=== PATIENT | male | born 1945 | race Caucasian/White ===

== ENCOUNTER 2016-10-13 10:33 | Emergency (ER) | payer MEDICARE, OTHER ==
[~2016-10-13] VITALS: Ht 167.6 cm; Wt 88.0 kg
[~2016-10-13 10:33] MED LIST: ALPR.25T PO; ALPR0.5T PO; ALPR0.5T7 PO; AMLO5TAB2 PO; APIX5TAB PO; ASP325T PO; ASPI500T50 PO; CEFD300C3 PO; CEPH-507 PO; CEPH500C PO; CYCL10TA9 PO; DCS100C PO; DNPZ5T PO; DOCU50CA8 PO; DONE5TAB30 PO; FINA5TAB6 PO; FISH OIL 1,2001 EAC1 PO; FISH1CAP15 PO; FNST5T PO; HYDR-34 PO; HYDR12.570 PO; HYDR1TAB3 PO; IBUP-1773 PO; IBUP-1779 PO; MEMA10TA PO; MEMA10TA22 PO; NAPR550T PO; OXB5T PO; OXYB5SYR2 PO; OXYB5TAB9 PO; POLY17PO6 PO; PRAV40TA2 PO; PRD20T PO; RT-ALBUINH IH; SENN8.6T68 PO; TAMS0.4C2 PO; TMSL.4C PO; TORADOL PO; TRAZ100T92 PO; TRAZ50TA67 PO; TRM50T PO; WARF4TAB PO
--- NOTE | 2016-10-13 10:52 | ED General ---
General Chief Complaint: Neuro-Stroke Like Symptoms Stated Complaint: DIZZY SLURRED SPEECH WEAKNESS Source of Information: Patient Exam Limitations: No Limitations History of Present Illness Time Seen by Provider: 10:50 Initial Comments To ER complaint by his with reports of strokelike symptoms. reports slurred speech, fatigue, increased left facial droop for the past 3 days. Patient has a history of stroke several years ago with some residual left facial droop. states that she does not notice any other deficits but his left facial droop seems more prominent than usual. Timing/Duration: 1-2 Days Severity: Moderate Associated Systoms: Malaise Allergies and Home Medications Allergies Coded Allergies: codeine (Unverified Allergy, Severe, rash, 01/11/11) acetaminophen (Verified Allergy, Unknown, 08/19/15) hydrocodone (Verified Allergy, Unknown, 08/19/15) lovastatin (Verified Allergy, Unknown, 08/19/15) Home Medications Albuterol Sulfate 6.7 Gm Hfa.aer.ad, 2 PUFF IH Q4H PRN for WHEEZING, (Reported) Alprazolam 0.5 Mg Tablet, 0.5 MG PO BID PRN for ANXIETY, (Reported) Amlodipine Besylate 5 Mg Tablet, 5 MG PO DAILY, (Reported) Cephalexin 500 Mg Capsule, 1 TAB PO BID, #10 Prescribed by: KAREN LOCKHART on 08/25/15 0910 Docusate Sodium 50 Mg Capsule, 50 MG PO HS PRN for CONSTIPATION, (Reported) Donepezil HCl 5 Mg Tablet, 5 MG PO HS, (Reported) Finasteride 5 Mg Tablet, 5 MG PO DAILY, (Reported) Memantine HCl 10 Mg Tablet, 10 MG PO BID, (Reported) [place]-3 Fatty Acids/Fish Oil 1 Each Capsule, 1 CAP PO BID, (Reported) Oxybutynin Chloride 5 Mg Tablet, 5 MG PO BID, (Reported) Polyethylene Glycol 3350 17 Gm Powd.pack, 17 GM PO DAILY PRN for CONSTIPATION, ( Reported) Pravastatin Sodium 40 Mg Tablet, 40 MG PO DAILY, (Reported) Sennosides 8.6 Mg Tablet, 17.2 MG PO DAILY, (Reported) take 2 (8.6mg) tabs Tamsulosin HCl 0.4 Mg Cap.er.24h, 0.4 MG PO DAILY, (Reported) Trazodone HCl 100 Mg Tablet, 100 MG PO HS, (Reported) [Toradol] , 1 TAB PO PRN, #20 Prescribed by: KAREN LOCKHART on 08/25/15 0910 Constitutional: see HPI EENTM: see HPI Respiratory: no symptoms reported Cardiovascular: no symptoms reported Genitourinary: no symptoms reported Musculoskeletal: no symptoms reported Skin: no symptoms reported Psychiatric/Neurological: No Symptoms Reported Hematologic/Lymphatic: No Symptoms Reported Immunological/Allergic: no symptoms reported Past Vkwexjx-Colfcm-Enqlrq Hx Patient Social History Former Smoker/When Quit: May 21, 1984 Recent Foreign Travel: No Contact w/Someone Who Travel: No Immunizations Up To Date Tetanus Booster (TDap): Less than 5yrs Date of Pneumonia Vaccine: Feb 18, 2015 Date of Influenza Vaccine: Mar 21, 2015 Seasonal Allergies Seasonal Allergies: No Surgeries HX Surgeries: Yes (HERNIA REPAIR, CYSTOCELE) Respiratory Hx Respiratory Disorders: No (GETS SOB IN COLD AIR) Cardiovascular Hx Cardiac Disorders: Yes Neurological Hx Neurological Disorders: Yes (mild alzheimer's ) Reproductive System Hx Reproductive Disorders: No Genitourinary Hx Genitourinary Disorders: Yes Genitourinary Disorders: Benign Prostatic Hyperpl, Prostate Problems Gastrointestinal Hx Gastrointestinal Disorders: Yes (hx of constipation issues) Gastrointestinal Disorders: Chronic Constipation Musculoskeletal Hx Musculoskeletal Disorders: No Musculoskeletal Disorders: Arthritis Endocrine Hx Endocrine Disorders: No HEENT HX ENT Disorders: Yes (glasses) Hearing Impairment: Hard of Hearing Cancer Hx Cancer: No Psychosocial Hx Psychiatric Problems: No Behavioral Health Disorders: Anxiety Integumentary HX Skin/Integumentary Disorder: No Blood Transfusions Hx Blood Disorders: Yes (hx of dvt) Adverse Reaction to a Blood Tr: No Family Medical History Family Medial History: FH: heart disease 19 FATHER Physical Exam Vital Signs Vital Sign - Last 12Hours 10/13/16 10:49 Temp 99.6 Pulse 102 Resp 18 B/P (MAP) 137/82 Pulse Ox 94 O2 Delivery Room Air Capillary Refill : General Appearance: No Apparent Distress, WD/WN Eyes: Bilateral Eye EOMI, Bilateral Eye Normal Inspection, Bilateral Eye PERRL HEENT: PERRL/EOMI, TMs Normal Neck: Full Range of Motion, Normal Inspection Respiratory: No Accessory Muscle Use, No Respiratory Distress Cardiovascular: Regular Rate, Rhythm, Normal Peripheral Pulses Gastrointestinal: Non Tender, Soft Neurologic/Psychiatric: Alert, Oriented x3, No Motor/Sensory Deficits Skin: Normal Color, Warm/Dry Progress/Results/Core Measures Results/Orders Lab Results Laboratory Tests Test 10/13/16 11:20 10/13/16 12:25 Range/Units White Blood Count 6.3 4.3-11.0 10^3/uL Red Blood Count 4.73 4.35-5.85 10^6/uL Hemoglobin 14.2 13.3-17.7 G/DL Hematocrit 42 40-54 % Mean Corpuscular Volume 88 80-99 FL Mean Corpuscular Hemoglobin 30 25-34 PG Mean Corpuscular Hemoglobin Concent 34 32-36 G/DL Red Cell Distribution Width 13.5 10.0-14.5 % Platelet Count 188 130-400 10^3/uL Mean Platelet Volume 9.6 7.4-10.4 FL Neutrophils (%) (Auto) 74 42-75 % Lymphocytes (%) (Auto) 15 12-44 % Monocytes (%) (Auto) 9 0-12 % Eosinophils (%) (Auto) 2 0-10 % Basophils (%) (Auto) 0 0-10 % Neutrophils # (Auto) 4.7 1.8-7.8 X 10^3 Lymphocytes # (Auto) 0.9 L 1.0-4.0 X 10^3 Monocytes # (Auto) 0.6 0.0-1.0 X 10^3 Eosinophils # (Auto) 0.2 0.0-0.3 10^3/uL Basophils # (Auto) 0.0 0.0-0.1 10^3/uL Prothrombin Time 14.1 12.2-14.7 SEC INR Comment 1.1 0.8-1.4 Activated Partial Thromboplast Time 29 24-35 SEC D-Dimer 0.39 0.00-0.49 UG/ML Sodium Level 140 135-145 MMOL/L Potassium Level 3.7 3.6-5.0 MMOL/L Chloride Level 108 H 98-107 MMOL/L Carbon Dioxide Level 24 21-32 MMOL/L Anion Gap 8 5-14 MMOL/L Blood Urea Nitrogen 16 7-18 MG/DL Creatinine 0.71 0.60-1.30 MG/DL Estimat Glomerular Filtration Rate > 60 BUN/Creatinine Ratio 23 Glucose Level 94 70-105 MG/DL Calcium Level 8.9 8.5-10.1 MG/DL Total Bilirubin 0.4 0.1-1.0 MG/DL Aspartate Amino Transf (AST/SGOT) 26 5-34 U/L Alanine Aminotransferase (ALT/SGPT) 25 0-55 U/L Alkaline Phosphatase 74 40-136 U/L Troponin I < 0.30 <0.30 NG/ML Total Protein 6.4 6.4-8.2 G/DL Albumin 3.7 3.2-4.5 G/DL Urine Color YELLOW Urine Clarity CLEAR Urine pH 6.5 5-9 Urine Specific [place] 1.015 L 1.016-1.022 Urine Protein NEGATIVE NEGATIVE Urine Glucose (UA) NEGATIVE NEGATIVE Urine Ketones NEGATIVE NEGATIVE Urine Nitrite NEGATIVE NEGATIVE Urine Bilirubin NEGATIVE NEGATIVE Urine Urobilinogen NORMAL NORMAL MG/DL Urine Leukocyte Esterase NEGATIVE NEGATIVE Urine RBC (Auto) 1+ H NEGATIVE Urine RBC 2-5 H /HPF Urine WBC RARE /HPF Urine Crystals NONE /LPF Urine Bacteria NEGATIVE /HPF Urine Casts NONE /LPF Urine Mucus MODERATE H /LPF Urine Culture Indicated NO My Orders Orders - FEI OTTO APRN Cbc With Automated Diff (10/13/16 10:49) Protime With Inr (10/13/16 10:49) Partial Thromboplastin Time (10/13/16 10:49) Comprehensive Metabolic Panel (10/13/16 10:49) Fibrin Degradation Products (10/13/16 10:49) Troponin I (10/13/16 10:49) Ua Culture If Indicated (10/13/16 10:49) Chest 1 View, Ap/Pa Only (10/13/16 10:49) Ekg Tracing (10/13/16 10:49) Nothing By Mouth (10/13/16 Dinner) Accucheck Stat ONCE (10/13/16 10:49) Saline Lock/Iv-Start (10/13/16 10:49) Saline Lock/Iv-Start (10/13/16 10:49) Vital Signs-Stroke Q1H (10/13/16 10:49) Ct Head Wo-R/O Stroke (10/13/16 10:49) O2 (10/13/16 10:49) Intake & Output 06,14,22 (10/13/16 10:49) Monitor-Rhythm Ecg Trace Only (10/13/16 10:49) Dysphagia Screening Tool (10/13/16 10:49) Post Thrombolytic Adminstratio (10/13/16 10:49) Vital Signs/I&O Vital Sign - Last 12Hours 10/13/16 10:49 Temp 99.6 Pulse 102 Resp 18 B/P (MAP) 137/82 Pulse Ox 94 O2 Delivery Room Air Diagnostic Imaging Diagonstic Imaging: CT Comments NAME: FRANKIE SMILEY [facility] REC#: [id number] PT STATUS: REG ER : 1945 PHYSICIAN: FEI OTTO APRN ADMIT DATE: 10/13/16/ER Signed Date of Exam:10/13/16 CT HEAD WO-R/O STROKE EXAM: CT head. TECHNIQUE: Noncontrast axial images of the brain were obtained. INDICATION: History of TIA. FINDINGS: There is no intracranial hemorrhage, edema or mass effect. The brain parenchyma demonstrates a hypodense oval lesion measuring 8 mm in the left periventricular white matter. This is suggestive of a lacunar infarct of a indeterminate age. This was not seen on 04/20/2015 exam. No hydrocephalus. No extra-axial fluid collection. The calvarium, the paranasal sinuses and orbits visualized portions demonstrate no significant abnormality. Minimal because of thickening, however, is seen in the left maxillary sinus. IMPRESSION: 1. No intercurrent hemorrhage. 2. Age indeterminate 8 mm lacunar infarct is suggested in the left the frontal periventricular white matter. MRI can better evaluate for acute ischemic infarction if needed. Dictated by: Dictated on workstation # [id number] Dict: 10/13/16 1120 Trans: 10/13/16 1131 [facility] [id number] Interpreted by: URI SULLIVAN MD Electronically signed by: URI SULLIVAN MD 10/13/16 1131 Departure Communication Progress Notes 1143-Pt is on ELiquis (history of DVT/PE). I do not notice a difference in patients presentation or speech from baseline. He is seen here in ER rather frequently. Impression Impression: Primary Impression: subjective dysarthria Disposition: HOME, SELF-CARE Condition: Stable Departure-Patient Inst. Decision time for Depature: 12:51 Referrals: SHAY HONG MD (PCP/Family) Primary Care Physician Patient Instructions: NO INSTRUCTIONS GIVEN Add. Discharge Instructions: All discharge instructions reviewed with patient and/or family. Voiced understanding. 1. Follow-up with Dr. Hong. Call her office today to make an appointment to be seen next week 2. Return to ER for any concerns Copy Copies To 1: SHAY HONG MD, PETER J APRN October 13, 2016 10:52
--- NOTE | 2016-10-13 11:03 | Diagnostic Imaging Report ---
INDICATION: Chest pain. Portable chest 10:55 AM. Heart size and pulmonary vascularity are normal. Lungs are clear. There are no effusions or pneumothoraces. IMPRESSION: Negative chest. Dictated by: Dictated on workstation # [id number]
--- NOTE | 2016-10-13 11:29 | Diagnostic Imaging Report ---
EXAM: CT head. TECHNIQUE: Noncontrast axial images of the brain were obtained. INDICATION: History of TIA. FINDINGS: There is no intracranial hemorrhage, edema or mass effect. The brain parenchyma demonstrates a hypodense oval lesion measuring 8 mm in the left periventricular white matter. This is suggestive of a lacunar infarct of a indeterminate age. This was not seen on 04/20/2015 exam. No hydrocephalus. No extra-axial fluid collection. The calvarium, the paranasal sinuses and orbits visualized portions demonstrate no significant abnormality. Minimal because of thickening, however, is seen in the left maxillary sinus. IMPRESSION: 1. No intercurrent hemorrhage. 2. Age indeterminate 8 mm lacunar infarct is suggested in the left the frontal periventricular white matter. MRI can better evaluate for acute ischemic infarction if needed. Dictated by: Dictated on workstation # [id number]
[2016-10-13 11:32] LABS: BASOPHILS % (AUTO) 0 % (0-10); EOSINOPHILS # (AUTO) 0.2 10^3/uL (0.0-0.3); EOSINOPHILS % (AUTO) 2 % (0-10); LYMPHOCYTES # (AUTO) 0.9 X 10^3 (1.0-4.0); LYMPHOCYTES % (AUTO) 15 % (12-44); MEAN CORPUSCULAR HEMOGLOBIN 30 PG (25-34); MEAN CORPUSCULAR HGB CONC 34 G/DL (32-36); MEAN CORPUSCULAR VOLUME 88 FL (80-99); MEAN PLATELET VOLUME 9.6 FL (7.4-10.4); MONOCYTES # (AUTO) 0.6 X 10^3 (0.0-1.0); MONOCYTES % (AUTO) 9 % (0-12); NEUTROPHILS # (AUTO) 4.7 X 10^3 (1.8-7.8); NEUTROPHILS % (AUTO) 74 % (42-75); PLATELET COUNT 188 10^3/uL (130-400); RED BLOOD COUNT 4.73 10^6/uL (4.35-5.85); RED CELL DISTRIBUTION WIDTH 13.5 % (10.0-14.5); WHITE BLOOD COUNT 6.3 10^3/uL (4.3-11.0)
[2016-10-13 11:44] LABS: INR 1.1 (0.8-1.4); PROTHROMBIN TIME PATIENT 14.1 SEC (12.2-14.7)
[2016-10-13 11:57] LABS: ALANINE AMINOTRANSFERASE 25 U/L (0-55); ALBUMIN 3.7 G/DL (3.2-4.5); ANION GAP 8 MMOL/L (5-14); ASPARTATE AMINO TRANSFERASE 26 U/L (5-34); BILIRUBIN,TOTAL 0.4 MG/DL (0.1-1.0); BLOOD UREA NITROGEN 16 MG/DL (7-18); BUN/CREATININE RATIO 23; CALCIUM 8.9 MG/DL (8.5-10.1); CARBON DIOXIDE 24 MMOL/L (21-32); CHLORIDE 108 MMOL/L (98-107); CREATININE SERUM 0.71 MG/DL (0.60-1.30); GFR ESTIMATED > 60; GLUCOSE 94 MG/DL (70-105); POTASSIUM 3.7 MMOL/L (3.6-5.0); SODIUM 140 MMOL/L (135-145); TOTAL PROTEIN 6.4 G/DL (6.4-8.2)
[2016-10-13 12:05] LABS: TROPONIN I < 0.30 NG/ML (<0.30)
[2016-10-13 12:45] LABS: BILIRUBIN,URINE NEGATIVE (NEGATIVE); KETONES,URINE NEGATIVE (NEGATIVE); LEUKOCYTE ESTERASE ,URINE NEGATIVE (NEGATIVE); NITRITE,URINE NEGATIVE (NEGATIVE); PH,URINE 6.5 (5-9); PROTEIN,URINE NEGATIVE (NEGATIVE); UROBILINOGEN,URINE NORMAL (NORMAL)
[2016-10-13 12:48] LABS: WBC,URINE RARE /HPF
[2016-10-13 13:00] VITALS: BP 132/80
== END 2016-10-13 13:00 | disposition home or self-care (01) ==
LOC: EDUNIT# 10:33 → ER 10:43
DX: R47.1 Dysarthria and anarthria (principal); R53.83 Other fatigue; I69.992 Facial weakness following unspecified cerebrovascular disease; Z79.899 Other long term (current) drug therapy; Z79.01 Long term (current) use of anticoagulants
CPT/HCPCS: 36415; 70450; 71010; 80053; 81000; 84484; 85025; 85379; 85610; 85730; 93005; 93041

== ENCOUNTER → 2017-04-17 | Outpatient (CLI) | payer MEDICARE, OTHER ==
[~2017-04-17] MED LIST changes: +DOCU50CA11 PO; -DOCU50CA8 PO; +TRAM-42 PO
--- NOTE | 2017-04-17 14:09 | Diagnostic Imaging Report ---
PA and lateral views of the chest. INDICATION: Chest pain. Dyspnea. FINDINGS: The lungs are hyperinflated. There is mild opacity in the right lung base favored to be atelectasis. The heart size is borderline enlarged. Chronic appearing minimal interstitial thickening is noted. No effusion or pneumothorax The mediastinum and taylor appear unremarkable. IMPRESSION: Minimal right basilar opacity is favored to be atelectasis. COPD. Dictated by: Dictated on workstation # [id number]
== END ==
LOC: RAD 11:58
PROVIDERS: ATTEND Internal Medicine Cardiovascular Disease
DX: J44.9 Chronic obstructive pulmonary disease, unspecified (principal); E78.2 Mixed hyperlipidemia; I10 Essential (primary) hypertension; R06.00 Dyspnea, unspecified; R07.9 Chest pain, unspecified
CPT/HCPCS: 71020

== ENCOUNTER → 2017-05-10 | Outpatient (CLI) | payer MEDICARE, OTHER | LOC: CARD 12:45 | PROVIDERS: ATTEND Physician Assistant | DX: I10 Essential (primary) hypertension (principal); E78.2 Mixed hyperlipidemia; R06.00 Dyspnea, unspecified; R07.89 Other chest pain | CPT/HCPCS: 93306 ==

== ENCOUNTER 2017-06-19 14:25 | Outpatient (CLI) | payer MEDICARE, OTHER | END 2017-06-19 14:27 | disposition home or self-care (01) | LOC: SLEEP 14:25 | PROVIDERS: ATTEND Nurse Practitioner Family | DX: G47.10 Hypersomnia, unspecified (principal); J44.9 Chronic obstructive pulmonary disease, unspecified; F41.9 Anxiety disorder, unspecified; Z79.899 Other long term (current) drug therapy ==

== ENCOUNTER 2017-06-23 20:12 | Emergency (ER) | payer MEDICARE, OTHER ==
[~2017-06-23] VITALS: Ht 167.6 cm; Wt 81.6 kg
[2017-06-23 20:34] LABS: BILIRUBIN,URINE NEGATIVE (NEGATIVE); CLARITY,URINE CLEAR; COLOR,URINE YELLOW; GLUCOSE, URINE (UA) NEGATIVE (NEGATIVE); KETONES,URINE NEGATIVE (NEGATIVE); LEUKOCYTE ESTERASE ,URINE NEGATIVE (NEGATIVE); NITRITE,URINE NEGATIVE (NEGATIVE); PH,URINE 5 (5-9); PROTEIN,URINE NEGATIVE (NEGATIVE); UROBILINOGEN,URINE NORMAL (NORMAL)
--- NOTE | 2017-06-23 20:35 | ED GU-Male ---
General Chief Complaint: -Male Stated Complaint: POSS UTI Source: patient, spouse Exam Limitations: no limitations History of Present Illness Date Seen by Provider: Jun 23, 2017 Time Seen by Provider: 20:25 Initial Comments Patient presents to ER by private conveyance with his significant other and chief complaint that just today started having some burning when he urinated. He does not have a history of a lot of UTIs but he does have enlarged prostate for which she follows Dr. Christianson and has been on Flomax for some time. Patient has not had any recent cystoscope's or bladder surgeries. He is not seeing any blood in his urine. He is not having any nausea or abdominal pain, fevers, chills heart palpitations, heart racing or weakness. He says he's had some loose stools last couple days and has not been constipated. He takes some blood pressure medicines in addition to Namenda and donepezil. He saw Dr. Nina just a few weeks ago and they did urine studies at that time but there is nothing going on and he was asymptomatic. Today he's had urinary frequency and feels like his had PEA every 15 minutes. He denies diabetes, chemotherapy or other immunocompromise. Allergies and Home Medications Allergies Coded Allergies: codeine (Unverified Allergy, Severe, rash, 01/11/11) acetaminophen (Verified Allergy, Unknown, 08/19/15) hydrocodone (Verified Allergy, Unknown, 08/19/15) lovastatin (Verified Allergy, Unknown, 08/19/15) Home Medications Albuterol Sulfate 6.7 Gm Hfa.aer.ad, 2 PUFF IH Q4H PRN for WHEEZING, (Reported) Alprazolam 0.5 Mg Tablet, 0.5 MG PO BID PRN for ANXIETY, (Reported) Amlodipine Besylate 5 Mg Tablet, 5 MG PO DAILY, (Reported) Cephalexin 500 Mg Capsule, 1 TAB PO BID, #10 Prescribed by: KAREN LOCKHART on 08/25/15 0910 Cyclobenzaprine HCl 10 Mg Tablet, 10 MG PO Q8H, #15 Prescribed by: MATT PURVIS on 03/24/172 Docusate Sodium 50 Mg Capsule, 50 MG PO HS PRN for CONSTIPATION, (Reported) Donepezil HCl 5 Mg Tablet, 5 MG PO HS, (Reported) Finasteride 5 Mg Tablet, 5 MG PO DAILY, (Reported) Memantine HCl 10 Mg Tablet, 10 MG PO BID, (Reported) [place]-3 Fatty Acids/Fish Oil 1 Each Capsule, 1 CAP PO BID, (Reported) Oxybutynin Chloride 5 Mg Tablet, 5 MG PO BID, (Reported) Polyethylene Glycol 3350 17 Gm Powd.pack, 17 GM PO DAILY PRN for CONSTIPATION, ( Reported) Pravastatin Sodium 40 Mg Tablet, 40 MG PO DAILY, (Reported) Sennosides 8.6 Mg Tablet, 17.2 MG PO DAILY, (Reported) take 2 (8.6mg) tabs Tamsulosin HCl 0.4 Mg Cap.er.24h, 0.4 MG PO DAILY, (Reported) Tramadol HCl 50 Mg Tablet, 50 MG PO Q4H, #20 Prescribed by: MATT PURVIS on 03/24/172041 Trazodone HCl 100 Mg Tablet, 100 MG PO HS, (Reported) [Toradol] , 1 TAB PO PRN, #20 Prescribed by: KAREN LOCKHART on 08/25/15 0910 Constitutional: No chills, No diaphoresis, No fever, No malaise EENTM: No hearing loss, No ear pain Respiratory: No cough, No short of breath Cardiovascular: No chest pain, No edema Gastrointestinal: No abdominal pain, No constipation, diarrhea, No nausea, No vomiting Genitourinary: burning, denies discharge, dysuria, frequency Past Xwfdlhz-Zwjpcs-Jgnuxa Hx Patient Social History Alcohol Use: Denies Use Recreational Drug Use: No Smoking Status: Never a Smoker Recent Hopitalizations: No Immunizations Up To Date Tetanus Booster (TDap): Less than 5yrs Date of Pneumonia Vaccine: Feb 18, 2015 Date of Influenza Vaccine: Mar 21, 2015 Seasonal Allergies Seasonal Allergies: No Surgeries History of Surgeries: Yes (HERNIA REPAIR, CYSTOCELE) Surgeries: Abdominal Respiratory History of Respiratory Disorde: Yes Respiratory Disorders: Pulmonary Embolism Cardiovascular History of Cardiac Disorders: Yes (DVT LEFT LEG) Cardiac Disorders: Deep Vein Thrombosis, High Cholesterol, Hypertension Neurological History of Neurological Disord: Yes (mild alzheimer's ) Neurological Disorders: Dementia, TIA Reproductive System Hx Reproductive Disorders: No Genitourinary History of Genitourinary Disor: Yes (RENAL CYST; INCONTINENCE, OVERACTIVE BLADDER) Genitourinary Disorders: Benign Prostatic Hyperpl, Prostate Problems Gastrointestinal History of Gastrointestinal Di: Yes (hx of constipation issues) Gastrointestinal Disorders: Chronic Constipation Musculoskeletal History of Musculoskeletal Dis: Yes (GAIT INSTABILITY) Musculoskeletal Disorders: Arthritis Endocrine History of Endocrine Disorders: No (renal cyst) HEENT History of HEENT Disorders: No Hearing Impairment: Hard of Hearing Cancer History of Cancer: No Psychosocial History of Psychiatric Problem: Yes Behavioral Health Disorders: Sleep Difficulties, Anxiety, Depression Integumentary History of Skin or Integumenta: No Blood Transfusions History of Blood Disorders: Yes (hx of dvt) Adverse Reaction to a Blood Tr: No Family Medical History Family Medial History: FH: heart disease 19 FATHER Physical Exam Vital Signs Vital Sign - Last 12Hours 06/23/17 20:34 Temp 98.9 Pulse 87 Resp 20 B/P (MAP) 158/98 (118) Pulse Ox 95 O2 Delivery Room Air Capillary Refill : General Appearance: WD/WN, no apparent distress HEENT: PERRL/EOMI, pharynx normal Cardiovascular: normal peripheral pulses, regular rate, rhythm Respiratory: no respiratory distress, no accessory muscle use Gastrointestinal: normal bowel sounds, non tender, soft Back: normal inspection, no CVA tenderness Extremities: non-tender, normal capillary refill Neurologic/Psychiatric: alert, normal mood/affect, oriented x 3 Skin: normal color, warm/dry Progress/Results/Core Measures Suspected Sepsis SIRS Temperature: Pulse: Respiratory Rate: Blood Pressure / Mean: Results/Orders Lab Results Laboratory Tests Test 06/23/17 20:23 Range/Units Urine Color YELLOW Urine Clarity CLEAR Urine pH 5 5-9 Urine Specific [place] 1.025 H 1.016-1.022 Urine Protein NEGATIVE NEGATIVE Urine Glucose (UA) NEGATIVE NEGATIVE Urine Ketones NEGATIVE NEGATIVE Urine Nitrite NEGATIVE NEGATIVE Urine Bilirubin NEGATIVE NEGATIVE Urine Urobilinogen NORMAL NORMAL MG/DL Urine Leukocyte Esterase NEGATIVE NEGATIVE Urine RBC (Auto) 4+ H NEGATIVE Urine RBC 2-5 H /HPF Urine WBC 2-5 /HPF Urine Squamous Epithelial Cells 5-10 /HPF Urine Renal Epithelial Cells NONE /HPF Urine Crystals NONE /LPF Urine Bacteria TRACE /HPF Urine Casts PRESENT /LPF Urine Hyaline Casts 0-2 H /LPF Urine Mucus MODERATE H /LPF Urine Culture Indicated NO My Orders Orders - CANDIS SHORE Ua Culture If Indicated (06/23/17 20:30) Vital Signs/I&O Vital Sign - Last 12Hours 06/23/17 20:34 Temp 98.9 Pulse 87 Resp 20 B/P (MAP) 158/98 (118) Pulse Ox 95 O2 Delivery Room Air Capillary Refill : Progress Note #1: Time: 20:33 Progress Note The patient appears aseptic and afebrile with urinary symptoms so we will start with a urinalysis. Further workup for sepsis or disseminated infection is not indicated at this time. Patient is not on beta blockers per his description. Prostatitis is less likely since he is not having pain anywhere near his prostate just burning when he PEs and urinary frequency. Progress Note #2: Time: 21:21 Progress Note Thought the most convincing urinary tract infection on urinalysis without any significant white cells however his symptoms could be urethritis and sometimes antibiotics could help calm that sensation down. We'll encourage lots of fluids and put him on some Bactrim and have him follow-up this week with the urologist. His been given strict return precautions if he develops systematic symptoms. Departure Impression Impression: Primary Impression: Urinary tract infection Qualified Codes: N30.01 - Acute cystitis with hematuria Disposition: HOME, SELF-CARE Condition: Stable Departure-Patient Inst. Decision time for Depature: 21:21 Referrals: SHAY HONG MD (PCP/Family) Primary Care Physician Patient Instructions: Urethritis (DC) Add. Discharge Instructions: Drink lots of fluids and Sunday morning please call Dr. 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 If you begin to experience worsening symptoms such as fevers, nausea or vomiting or other worrisome symptoms return to the ER or to your private physician for further evaluation and management. All discharge instructions reviewed with patient and/or family. Voiced understanding. Scripts Sulfamethoxazole/Trimethoprim (Bactrim Ds Tablet) 1 Each Tablet 1 EACH PO BID for 7 Days, #14 TAB 0 Refills Prov: CANDIS SHORE 06/23/17 Copy Copies To 1: ABEL BELL DO Copies To 2: JAELYN NINA MD, TITUS J Jun 23, 2017 20:35
[2017-06-23 21:04] LABS: BACTERIA,URINE TRACE /HPF; HYALINE CASTS, URINE 0-2 /LPF
[2017-06-23] MEDS ORDERED: RX-TRIMETH/SULFA. 160-800 MG (BACTRIM DS) TAB PPK#2 PO STA (21:24)
[2017-06-23] MEDS ORDERED: SULF1TAB35 PO (21:24)
[2017-06-23 21:30] VITALS: BP 158/98
== END 2017-06-23 21:30 | disposition home or self-care (01) ==
LOC: EDUNIT# 20:12 → ER 20:14
DX: N39.0 Urinary tract infection, site not specified (principal); E78.00 Pure hypercholesterolemia, unspecified; I10 Essential (primary) hypertension; F03.90 Unspecified dementia, unspecified severity, without behavioral disturbance, psychotic disturbance, mood disturbance, and anxiety; N40.0 Benign prostatic hyperplasia without lower urinary tract symptoms; F41.9 Anxiety disorder, unspecified; F32.9 Major depressive disorder, single episode, unspecified; Z82.49 Family history of ischemic heart disease and other diseases of the circulatory system; Z86.73 Personal history of transient ischemic attack (TIA), and cerebral infarction without residual deficits; Z87.448 Personal history of other diseases of urinary system; Z87.440 Personal history of urinary (tract) infections; Z88.5 Allergy status to narcotic agent; Z88.8 Allergy status to other drugs, medicaments and biological substances; Z87.19 Personal history of other diseases of the digestive system; Z98.890 Other specified postprocedural states; Z86.718 Personal history of other venous thrombosis and embolism
CPT/HCPCS: 81000; 87077; 87088; 99282

== ENCOUNTER 2017-08-16 10:06 | Emergency (ER) | payer MEDICARE, OTHER ==
[~2017-08-16] VITALS: Ht 167.6 cm; Wt 88.0 kg
[~2017-08-16 10:06] MED LIST changes: +SULF1TAB35 PO
--- OUTSIDE RECORDS SUMMARY | 2017-08-16 10:12 | XMS REPORT ---
Author Author GELYSHAY ROYAL Organization [facility] Address [address] [place] [address] Care Team Providers Care Computer Numerical Control Operator Name Role Phone SHAY HONG Unavailable PROBLEMS Type Condition ICD9-CM Code [id number] Code Onset Dates Condition Status SNOMED Code Problem Transient cerebral ischemia, unspecified transient cerebral ischemia type G45.9 Active 149124105 Problem Anxiety F41.9 Active 68125125 Problem Essential hypertension I10 Active 35417111 Problem Gait instability R26.81 Active 19202106 Problem 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 Active 820503341 Problem Other chronic pain G89.29 Active 84401941 Problem Overactive bladder N32.81 Active 791728536 Problem 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 Active 727702039 Problem Alzheimer's disease, unspecified G30.9 Active 480713098 Problem Mixed hyperlipidemia E78.2 Active 831581541 Problem Primary insomnia F51.01 Active 775872327 Problem Hydrocele, unspecified hydrocele type N43.3 Active 72435210 Problem 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 Active 481796691 Problem 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 Active 584479885 Problem Renal cyst, left Q61.00 Active 18868425 Problem Other acute pulmonary embolism without acute cor pulmonale I26.99 Active 036739980 Problem Benign non-nodular prostatic hyperplasia with lower urinary tract symptoms N40.1 Active 812205242 ALLERGIES No Information SOCIAL HISTORY Never Assessed PLAN OF CARE VITAL SIGNS MEDICATIONS Unknown Medications RESULTS No Results PROCEDURES No Known procedures IMMUNIZATIONS No Known Immunizations MEDICAL (GENERAL) HISTORY Type Description Date Medical History hypertension Medical History orthopedic disorder Medical History alzheimers disease Medical History neurologic disorder-TIA's Medical History DVT in right leg after foot fx Medical History Dizziness - no significant carotid artery plaque 2011, normal exercise stress echo (EF 60%) Feb 2012 Medical History BPH Medical History Anxiety Hospitalization History foot fracture
--- OUTSIDE RECORDS SUMMARY | 2017-08-16 10:13 | XMS REPORT ---
Author Author GELYSHAY ROYAL Organization [facility] Address [address] [place] [address] Care Team Providers Care Foundation Assistant Name Role Phone SHAY HONG Unavailable PROBLEMS Type Condition ICD9-CM Code [id number] Code Onset Dates Condition Status SNOMED Code Problem Transient cerebral ischemia, unspecified transient cerebral ischemia type G45.9 Active 048067164 Problem Anxiety F41.9 Active 08929705 Problem Essential hypertension I10 Active 33499619 Problem Gait instability R26.81 Active 86659330 Problem 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 Active 528154071 Problem Other chronic pain G89.29 Active 56102888 Problem Overactive bladder N32.81 Active 937383006 Problem 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 Active 473205306 Problem Alzheimer's disease, unspecified G30.9 Active 484503758 Problem Mixed hyperlipidemia E78.2 Active 607757937 Problem Primary insomnia F51.01 Active 236168694 Problem Hydrocele, unspecified hydrocele type N43.3 Active 19434284 Problem 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 Active 346511210 Problem 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
--- OUTSIDE RECORDS SUMMARY | 2017-08-16 10:15 | XMS REPORT ---
Author Author PASCUAL WHITNEY Organization [facility] Address [address] [place] [address] Care Team Providers Care Assistant Scientist Name Role Phone PASCUAL WHITNEY Unavailable PROBLEMS Type Condition ICD9-CM Code [id number] Code Onset Dates Condition Status SNOMED Code Problem Transient cerebral ischemia, unspecified transient cerebral ischemia type G45.9 Active 883167636 Problem Anxiety F41.9 Active 81298107 Problem Essential hypertension I10 Active 71155670 Problem Gait instability R26.81 Active 73883911 Problem 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 Active 144603452 Problem Other chronic pain G89.29 Active 83199831 Problem Overactive bladder N32.81 Active 342332007 Problem 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 Active 463807254 Problem Alzheimer's disease, unspecified G30.9 Active 306004527 Problem Mixed hyperlipidemia E78.2 Active 803428530 Problem Primary insomnia F51.01 Active 704846833 Problem Hydrocele, unspecified hydrocele type N43.3 Active 91302156 Problem 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 Active 214669298 Problem 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
--- OUTSIDE RECORDS SUMMARY | 2017-08-16 10:17 | XMS REPORT ---
Author Author GELYSHAY ROYAL Organization [facility] Address [address] [place] [address] Care Team Providers Care Artificial Inseminator Name Role Phone SHAY HONG Unavailable PROBLEMS Type Condition ICD9-CM Code YGR45-[id number] Code Onset Dates Condition Status SNOMED Code Problem Transient cerebral ischemia, unspecified transient cerebral ischemia type G45.9 Active 628738683 Problem Anxiety F41.9 Active 32247034 Problem Essential hypertension I10 Active 59489687 Problem Gait instability R26.81 Active 96462864 Problem 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 Active 297675568 Problem Other chronic pain G89.29 Active 70912495 Problem Overactive bladder N32.81 Active 698047736 Problem 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 Active 424423936 Problem Alzheimer's disease, unspecified G30.9 Active 731785562 Problem Mixed hyperlipidemia E78.2 Active 701683739 Problem Primary insomnia F51.01 Active 696925449 Problem Hydrocele, unspecified hydrocele type N43.3 Active 01554697 Problem 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 Active 326692127 Problem 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
--- OUTSIDE RECORDS SUMMARY | 2017-08-16 10:17 | XMS REPORT ---
Author Author KENNETH MCQUEEN [facility] Address [address] [place] [address] Care Team Providers Care Colloid Mill Operator Name Role Phone RICHARDANIEAN Unavailable PROBLEMS Type Condition ICD9-CM Code QKY99-[id number] Code Onset Dates Condition Status SNOMED Code Problem Transient cerebral ischemia, unspecified transient cerebral ischemia type G45.9 Active 762600116 Problem Anxiety F41.9 Active 14615286 Problem Essential hypertension I10 Active 67931034 Problem Gait instability R26.81 Active 94196105 Problem 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 Active 067861557 Problem Other chronic pain G89.29 Active 67049256 Problem Overactive bladder N32.81 Active 714736143 Problem 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 Active 212538507 Problem Alzheimer's disease, unspecified G30.9 Active 812976669 Problem Mixed hyperlipidemia E78.2 Active 205193246 Problem Primary insomnia F51.01 Active 728504363 Problem Hydrocele, unspecified hydrocele type N43.3 Active 65517374 Problem 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 Active 013358996 Problem 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 Active 257336598 Problem Renal cyst, left Q61.00 Active 57005419 Problem Other acute pulmonary embolism without acute cor pulmonale I26.99 Active 262796234 Problem Benign non-nodular prostatic hyperplasia with lower urinary tract symptoms N40.1 Active 206055901 ALLERGIES No Information SOCIAL HISTORY Never Assessed PLAN OF CARE Activity Details Follow Up 2 Weeks Reason:F/U PT VITAL SIGNS MEDICATIONS Unknown Medications RESULTS No Results PROCEDURES Procedure Date Ordered Result Body Site PT EVAL HIGH COMPLEX 45 MIN October 11, 2016 THERAPEUTIC EXERCISES October 11, 2016 IMMUNIZATIONS No Known Immunizations MEDICAL (GENERAL) HISTORY [...]
--- OUTSIDE RECORDS SUMMARY | 2017-08-16 10:18 | XMS REPORT ---
Author Author GELY SHAY [facility] Address [address] [place] [address] Care Team Providers Care Reject Opener And Filler Name Role Phone GELYGLORIASHAY Unavailable PROBLEMS Type Condition ICD9-CM Code ANN64-TP Code Onset Dates Condition Status SNOMED Code Problem Hypermetropia of both eyes H52.03 Active 27138910 Problem Transient cerebral ischemia, unspecified transient cerebral ischemia type G45.9 Active 941785534 Problem Color blindness H53.50 Active 616286252 Problem Essential hypertension I10 Active 44767788 Problem Presbyopia of both eyes H52.4 Active 12715949 Problem Anxiety F41.9 Active 84922567 Problem Other chronic pain G89.29 Active 02675424 Problem Overactive bladder N32.81 Active 444794293 Problem At high risk for falls Z91.81 Active [id number] Problem Asymptomatic microscopic hematuria R31.21 Active 275976058 Problem Mixed hyperlipidemia E78.2 Active 432255768 Problem Astigmatism of both eyes, unspecified type H52.203 Active 90784596 Problem Nuclear senile cataract of both eyes H25.13 Active 830056651 Problem 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 Active 738405060 Problem Alzheimer's disease, unspecified G30.9 Active 321601312 Problem Gait instability R26.81 Active 34354290 Problem 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 Active 884924651 Problem Other acute pulmonary embolism without acute cor pulmonale I26.99 Active 904833511 Problem Hydrocele, unspecified hydrocele type N43.3 Active 83101604 Problem Primary insomnia F51.01 Active 682388063 Problem 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 Active 266586607 Problem 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 Active 20995996 Problem Benign non-nodular prostatic hyperplasia with lower urinary tract symptoms N40.1 Active 793054293 Problem 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 Active 278592789 Problem Renal cyst, left Q61.00 Active 56926347 ALLERGIES No Information ENCOUNTERS Encounter Location Date Diagnosis [facility] [id number] [place] [address] 29997- 5764 September, [facility] [id number] [place] [address] 96817- 1937 September, [facility] [address] 10840- 4956 Aug, [facility] [address] 21497- 6295 Jun, [place] [address] 32207- 0545 Jun, Medicare annual wellness visit, initial Z00.00 ; Mixed hyperlipidemia E78.2 ; Essential hypertension I10 ; Anxiety F41.9 ; 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 ; 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 ; Overactive bladder N32.81 ; Primary insomnia F51.01 ; At high risk for falls Z91.81 and Encounter for immunization Z23 [place] [address] 27385- 4833 May, [facility] [id number] [place] [address] 59787- 4145 May, Essential hypertension I10 and Transient cerebral ischemia, unspecified transient cerebral ischemia type G45.9 [facility] [id number] [place] [address] [id number] May, Dental examination Z01.20 and Dental caries K02.9 [facility] [id number] [place] [address] 57687- 3200 May, [facility] [id number] [place] [address] 23993- 4233 May, [facility] [id number] [place] [address] 76612- 2649 May, 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 [facility] [id number] [place] [address] 37736- 6589 Apr, [facility] [address] 67096- 2793 Apr, 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 and 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 [place] [address] 03636- 6425 Mar, 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 [place] [address] 53688- 5614 Mar, Mixed hyperlipidemia E78.2 ; Essential hypertension I10 ; Asymptomatic microscopic hematuria R31.21 and Renal cyst, left Q61.00 [place] [address] 43847- 0179 Mar, [place] [address] 79307- 7024 Feb, Encounter for immunization Z23 [place] [address] 54550- 5751 Feb, [facility] [id number] [place] [address] 41920- 3620 Feb, [facility] [id number] [place] [address] 17962 -7899 Feb, ANUG (acute necrotizing ulcerative gingivitis) A69.1 [facility] [id number] [place] [address] 26984- 1605 Feb, [facility] [address] 64554- 5729 Feb, 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 [facility] [id number] [place] [address] 76528- 4508 Feb, 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 and 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 [facility] [address] [facility] [id number] [address]- 3045 Jan, 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 [facility] [id number] [address]- 9200 Jan, Gait instability R26.81 [facility] [address] [id number] [place] [address] Jan [facility] [address] [id number] [place] [address] Dec [facility] [id number] [place] [address] 70010- 9145 Dec, [facility] [id number] [place] [address] 21505- 0814 Dec, [facility] [id number] [place] [address] 61507- 7903 Dec, Essential hypertension I10 ; Transient cerebral ischemia, unspecified transient cerebral ischemia type G45.9 and Anxiety F41.9 [facility] [id number] [place] [address] 69937- 8844 Dec, Gait instability R26.81 [facility] [id number] [place] [address] 06794- 6252 Dec, [facility] [id number] [place] [address] 43968- 2975 Nov, 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 and 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 [facility] [id number] [address]- 9361 Nov, [facility] [id number] [place] [address] 59340- 0561 Nov, Gait instability R26.81 [facility] [id number] [address]- 3441 Nov, Anxiety F41.9 [facility] [address] [address]- 5731 Nov, [facility] [id number] [place] [address] 60087- 3037 Nov, [facility] [id number] [place] [address] 40216- 7171 Oct, Gait instability R26.81 [facility] [id number] [place] [address] 74042- 8095 Oct, Anxiety F41.9 [facility] [id number] [place] [address] 54006- 5099 Oct, Gait instability R26.81 [facility] [id number] [place] [address] 74474- 4831 Oct, Gait instability R26.81 [facility] [id number] [place] [address] 65163- 6315 Oct, [facility] [id number] [place] [address] 31672- 8082 Oct, Anxiety F41.9 ; Chronic 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 use Z79.899 ; Encounter for immunization Z23 and Transient cerebral ischemia, unspecified transient cerebral ischemia type G45.9 [facility] [address] [address]- 8160 September, [facility] [id number] [place] [address] 64297- 7021 September, Gait instability R26.81 [facility] [address] [address]- 7562 September, [facility] [id number] [place] [address] 74110- 1398 September, [facility] [id number] [place] [address] 72736- 6573 September, [facility] [id number] [place] [address] 49102- 1140 September, 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 and 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 [facility] [id number] [address]- 9214 September, [facility] [address] [facility] [id number] [address]- 1518 September, [facility] [id number] [place] [address] 61949- 3135 September, [facility] [id number] [place] [address] 89714- 1688 September, 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 [facility] [id number] [place] [address] 74512- 1899 Aug, 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 ; 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 ; Other acute pulmonary embolism without acute cor pulmonale I26.99 and Cough R05 [facility] [id number] [address]- 5144 Aug, [facility] [id number] [place] [address] 67470- 7252 Aug, Gait instability R26.81 [facility] [id number] [address]- 3357 Aug, 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 and 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 [facility] [id number] [address]- 3692 Aug, [facility] [id number] [place] [address] 31426- 4532 Aug, 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 [facility] [address] [facility] [id number] [address]- 5345 Jul, 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 [facility] [id number] [place] [address] 13438- 0199 Jul, [facility] [id number] [place] [address] 96644- 3654 Jul, 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 [facility] [id number] [place] [address] 52904- 3135 Jul, Anxiety F41.9 ; 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 and Transient cerebral ischemia, unspecified transient cerebral ischemia type G45.9 [facility] [id number] [place] [address] 15042- 6956 Jun, Essential hypertension I10 [place] [id number] [place] [address] 21180- 4222 Jun, [place] [id number] [place] [address] 03910- 0744 Jun, [facility] [id number] [place] [address] 91678- 5009 Jun, [facility] [id number] [place] [address] 78788- 6829 Jun, Essential hypertension I10 ; Benign non-nodular prostatic hyperplasia with lower urinary tract symptoms N40.1 ; Anxiety F41.9 ; Pain in right knee M25.561 ; Pain in left knee M25.562 and Other chronic pain G89.29 [facility] [id number] [place] [address] 41259- 7440 May, [facility] [id number] [place] [address] 65332- 5050 May, [facility] [id number] [place] [address] 66452- 1575 May, [facility] [id number] [place] [address] 02391- 5300 Apr, [facility] [id number] [place] [address] 36835- 0070 Mar, [facility] [id number] [place] [address] 04451- 1608 Mar, Mixed hyperlipidemia E78.2 and Essential hypertension I10 [facility] [id number] [place] [address] 30724- 6846 Feb, [facility] [id number] [place] [address] 25938- 9029 Feb, Ingrown nail L60.0 and Onychomycosis B35.1 [facility] [id number] [place] [address] 82999- 6904 Feb, Paronychia, left L03.012 [facility] [id number] [place] [address] 97799- 7224 Jan, [facility] [id number] [place] [address] 94502- 1516 Jan, Cramps of right lower extremity R25.2 and Mixed hyperlipidemia E78.2 [facility] [id number] [place] [address] 18087- 4470 Jan, Cramps of right lower extremity R25.2 ; Essential hypertension I10 ; Mixed hyperlipidemia E78.2 ; Chronic 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 use Z79.899 and Claudication I73.9 [facility] [id number] [place] [address] 73092- 3207 Jan, Right leg pain M79.604 [facility] [id number] [place] [address] 63768- 0623 Dec, [facility] [id number] [place] [address] 69622- 4178 Nov, [facility] [id number] [place] [address] 76432- 4807 Nov, [facility] [id number] [place] [address] 03923- 8335 Nov, [facility] [address] [address]- 1592 Nov, Dermatofibroma D23.9 [facility] [id number] [place] [address] 438381- 2916 Nov, [facility] [address] 5570 Oct, [facility] [id number] [place] [address] 765478- 0304 Oct, [facility] [address] [address]- 0577 September, Benign non-nodular prostatic hyperplasia with lower urinary tract symptoms N40.1 ; Essential hypertension I10 ; Overactive bladder N32.81 and Fatigue, unspecified type R53.83 [facility] [address] [address]- 2041 September, [facility] [address] [address]- 5364 September, [facility] [address], [place] [address]- 1612 Aug, [facility] [address], [place] [address]- 4991 Jul, [facility] [address] [address]- 0598 Jul, Pelvic pain R10.2 ; Jock itch B35.6 ; Essential hypertension I10 and Hydrocele, unspecified hydrocele type N43.3 [facility] [address] [address]- 9484 Jun, [facility] [address] [address]- 4821 Jun, [facility] [address] [address]- 3854 Jun, Benign non-nodular prostatic hyperplasia with lower urinary tract symptoms N40.1 [facility] [address] [address]- 4687 Jun, Benign non-nodular prostatic hyperplasia with lower urinary tract symptoms N40.1 [facility] [id number] [place] [address] 68186- 8956 11 Jun, 2015 [facility] [id number] [place] [address] 29490- 1729 May, [facility] [id number] [place] [address] 69573- 7507 Apr, [facility] [id number] [place] [address] 97835- 9623 Apr, [facility] [id number] [place] [address] 01561- 2307 Apr, Other acute pulmonary embolism without acute cor pulmonale I26.99 ; Anxiety F41.9 ; 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 and residential 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 use Z79.899 [facility] [id number] [place] [address] 83110- 2420 Apr, [facility] [id number] [place] [address] 40203- 5138 Apr, [facility] [id number] [place] [address] 70435- 9095 Mar, [facility] [id number] [place] [address] 45522- 5737 Mar, [facility] [id number] [place] [address] 53161- 2844 Feb, Cough R05 [facility] [id number] [place] [address] 38451- 2261 Feb, [facility] [id number] [place] [address] 46847- 9520 Feb, Encounter for immunization Z23 [facility] [id number]- 4263 Feb, Other and unspecified hyperlipidemia 272.4 [facility] [id number] [place] [address] 71125- 5484 Jan, [facility] [address] [address]- 4122 Jan, TIA (transient ischemic attack) 435.9 [facility] [id number] [place] [address] 06553- 4815 Dec, [facility] [id number] [place] [address] 07345- 3858 Dec, [facility] [id number] [place] [address] 62757- 2843 Dec, [facility] [id number] [address]- 3488 Nov, [facility] [address] [address]- 4602 Oct, Chronic cough 786.2 [facility] [id number] [place] [address] 85052- 4874 Oct, [facility] [address] [address]- 0841 Oct, [facility] [address] [address]- 3252 Oct, [facility] [address] [address]- 7687 Oct, [facility] [id number] [address]- 3305 Oct, Chronic cough 786.2 [facility] [address] 0283 Oct, Cough 786.2 ; Hypertension 401.9 ; BPH (benign prostatic hyperplasia) 600.00 ; Other and unspecified hyperlipidemia 272.4 and Hydrocele 603.9 [facility] [place] [facility] [address] [id number] [place] [address]- 8542 Oct, [facility] [place] [facility] [address] [id number] [place] [address]- 0053 September, [facility] [place] [facility] [address] [id number] [place] [address]- 3428 Aug, [facility] [place] [facility] [address] [id number] [place] [address]- 2478 Aug, [facility] [place] [facility] [address] [id number] [place] [address]- 2469 Jul, [facility] [place] [facility] [address] [id number] [place] [address]- 9767 Jul, [facility] [place] [facility] [address] [facility] [id number] [place] [address]- 0200 Jul, [facility] [place] [facility] [address] [id number] [place] [address]- 4584 Jul, [facility] [place] [facility] [address] [id number] [place] [address]- 1980 Jul, [facility] [place] [facility] [address] [facility] [id number] [place] [address]- 1300 Jun, [facility] [place] [facility] [address] [id number] [place] [address]- 7379 Jun, [facility] [place] [facility] [address] [id number] [address] Jun, [facility] [place] [facility] [address] [id number] [place] [address] Jun, [facility] [place] [facility] [address] [id number] [place] [address] Jun, [facility] [place] [facility] [address] [id number] [id number] [address] Jun, [facility] [place] [facility] [address] [id number] [place] [address] Jun, [facility] [place] [facility] [address] [id number] [place] [address] Jun, [facility] [place] [facility] [address] [id number] [place] [address] May, [facility] [place] [facility] [address] [id number] [place] [address] May, [facility] [place] [facility] [address] [id number] [place] [address] May, [facility] [place] [facility] [address] [id number] [place] [address] May, [facility] [place] [facility] [address] [id number] [place] [address] May, [facility] [place] [facility] [address] [id number] [place] [address] May, [facility] [place] [facility] [address] [id number] [place] [address] May, [facility] [place] [facility] [address] [id number] [place] [address] May, [facility] [place] [facility] [address] [id number] [place] [address] May, [facility] [place] [facility] [address] [id number] [place] [address] May, [facility] [place] [facility] [address] [id number] [place] [address] Apr, [facility] [place] [facility] [address] [id number] [place] [address] Apr, [facility] [place] [facility] [address] [id number] [place] [address] Apr, [facility] [place] [facility] [address] [id number] [place] [address] Apr, [facility] [place] [facility] [address] [id number] [place] [address] Apr, [facility] [place] [facility] [address] [id number] [place] [address] Apr, [facility] [place] [facility] [address] [id number] [place] Apr, [facility] [place] [facility] [address] [id number] [place] [address] Apr, [facility] [place] [facility] [address] [id number] [place] [address] Mar, [facility] [place] [facility] [address] [id number] [place] [address] Mar, [facility] [place] [facility] [address] [id number] [place] [address] Mar, [facility] [place] [facility] [address] [id number] [place] [address] Mar, [facility] [place] [facility] [address] [id number] [place] [address] Mar, [facility] [place] [facility] [address] [id number] [place] [address] Mar, [facility] [place] [facility] [address] [id number] [place] [address] Mar, [facility] [place] [facility] [address] [id number] [place] [address] Mar, [facility] [place] [facility] [address] [id number] [place] [address] Mar, [facility] [place] [facility] [address] [id number] [place] [address] 4[address] Mar, [facility] [place] [facility] [address] [id number] [place] [address] 8174 Feb, [facility] [place] [facility] [address] [id number] [place] [address] 6[address] 30 Feb, 2014 [facility] [place] [facility] [address] [id number] [place] [address] 2509 29 Feb, 2014 [facility] [place] [facility] [address] [id number] [place] [address] 6928 29 Feb, 2014 [facility] [place] [facility] [address] [id number] [place] [address] 2301 14 Feb, 2014 [facility] [place] [facility] [address] [id number] [place] [address]- 1155 14 Feb, 2013 [facility] [place] [facility] [address] [id number] [place] [address] 4[address] 30 Jan, 2013 [facility] [place] [facility] [address] [id number] [place] [address]- 48[address] 30 Jan, 2013 [facility] [place] [facility] [address] [id number] [place] [address]- 3569 24 Jan, 2013 [facility] [place] [facility] [address] [id number] [place] [address]- 8575 24 Sep, 2013 [facility] [place] [facility] [address] [id number] [place] [address]- 1345 19 Jan, 2013 [facility] [place] [facility] [address] [id number] [place] [address]- 8568 19 Sep, 2013 [facility] [place] [facility] [address] [id number] [place] [address]- 7297 16 Sep, 2013 [facility] [place] [facility] [address] [id number] [address] 16 Sep, 2013 [facility] [place] [facility] [address] [id number] [place] [address]- 2543 16 Sep, 2013 [facility] [place] [facility] [address] [id number] [place] [address]- 254 16 Sep, 2013 [facility] [place] [facility] [address] [id number] [place] [address]- 2544 12 Sep, 2013 [facility] [place] [facility] [address] [id number] [place] [address] 2459 Jan, [facility] [place] [facility] [address] [id number] [place] [address] 5560 Dec, [facility] [place] [facility] [address] [id number] [place] [address] 0127 Dec, [facility] [place] [facility] [address] [id number] [place] [address]- 1141 Dec, [facility] [place] [facility] [address] [id number] [place] [address]- 7709 Dec, [facility] [place] [facility] [address] [id number] [place] [address]- 3858 Dec, [facility] [place] [facility] [address] [id number] [place] [address]- 2335 Dec, [facility] [place] [facility] [address] [id number] [place] [address] 7946 Nov, [facility] [place] [facility] [address] [id number] [place] [address] 9237 Nov, [facility] [place] [facility] [address] [id number] [place] [address]- 7225 Nov, [facility] [place] [facility] [address] [id number] [place] [address]- 8088 Nov, [facility] [place] [facility] [address] [id number] [place] [address]- 0516 Nov, [facility] [place] [facility] [address] [id number] [place] [address]- 0996 Nov, [facility] [place] [facility] [address] [id number] [place] [address]- 3628 Nov, [facility] [place] [facility] [address] [id number] [place] [address]- 3010 Nov, [facility] [place] [facility] [address] [id number] [place] [address] 6380 Oct, [facility] [place] [facility] [address] [id number] [place] [address]- 0066 Oct, [facility] [place] [facility] [address] [id number] [place] [address]- 4456 Oct, [facility] [place] [facility] [address] [id number] [place] [address]- 2421 Oct, [facility] [place] [facility] [address] [id number] [place] [address] 6002 September, [facility] [place] [facility] [address] [id number] [place] [address]- 2301 September, [facility] [place] [facility] [address] [id number] [place] [address]- 2419 September, [facility] [place] [facility] [address] [id number] [place] [address]- 9915 September, [facility] [place] [facility] [address] [id number] [place] [address]- 3694 September, [facility] [place] [facility] [address] [id number] [place] [address]- 3397 September, [facility] [place] [facility] [address] [id number] [place] [address]- 3071 Aug, [facility] [place] [facility] [address] [id number] [place] [address]- 2880 Aug, [facility] [place] [facility] [address] [id number] [place] [address]- 4570 Aug, [facility] [place] [facility] [address] [id number] [place] [address] 3801 Aug, [facility] [place] [facility] [address] [id number] [place] [address]- 7253 Aug, [facility] [place] [facility] [address] [id number] [place] [address]- 3270 Aug, [facility] [place] [facility] [address] [id number] [address] 0[address] Aug, [facility] [place] [facility] [address] [id number] [place] [address] Aug, [facility] [place] [facility] [address] [id number] [place] [address]- 5641 Jul, [facility] [place] [facility] [address] [id number] [place] [address]- 6716 Jul, [facility] [place] [facility] [address] [id number] [place] [address]- 6355 Jun, [facility] [place] [facility] [address] [id number] [place] [address] Jun, [facility] [place] [facility] [address] [id number] [place] [address]- 0881 Jun, [facility] [place] [facility] [address] [id number] [place] [address]- 1666 Jun, [facility] [place] [facility] [address] [id number] [place] [address]- 2505 Jun, [facility] [place] [facility] [address] [id number] [place] [address]- 5468 May, [facility] [place] [facility] [address] [facility] [id number] [place] [address]- 7298 May, [facility] [place] [facility] [address] [id number] [place] [address]- 5917 May, [facility] [place] [facility] [address] [id number] [address] 0895 May, [facility] [place] [facility] [address] [id number] [place] [address]- 5265 Apr, [facility] [place] [facility] [address] [id number] [place] [address]- 2192 Apr, [facility] [place] [facility] [address] [id number] [place] [address]- 9013 Mar, [facility] [place] [facility] [address] [id number] [place] [address]- 7235 Mar, [facility] [place] [facility] [address] [id number] [place] [address]- 3840 Feb, [facility] [place] [facility] [address] [id number] [place] [address]- 8857 Feb, [facility] [place] [facility] [address] [id number] [place] [address]- 5166 Feb, [facility] [place] [facility] [address] [id number] [place] [address]- 4852 Feb, [facility] [place] [facility] [address] [id number] [place] [address]- 2723 Feb, [facility] [place] [facility] [address] [id number] [place] [address]- 8518 Feb, [facility] [place] [facility] [address] [id number] [place] [address]- 6788 Feb, [facility] [place] [facility] [address] [id number] [place] [address]- 9308 Jan, [facility] [place] [facility] [address] [id number] [place] [address]- 3664 Jan, [facility] [place] [facility] [address] [id number] [place] [address]- 0723 Dec, [facility] [place] [facility] [address] [id number] [place] [address]- 0887 Dec, [facility] [place] [facility] [address] [id number] [place] [address]- 0038 Dec, [facility] [place] [facility] [address] [id number] [place] [address]- 6752 Dec, [facility] [place] [facility] [address] [id number] [place] [address]- 4147 Dec, [facility] [place] [facility] [address] [id number] [place] [address]- 0757 Nov, [facility] [address] [id number] [place] [address]- 2301 Nov, [facility] [place] [facility] [address] [id number] [place] [address]- 4360 Nov, [facility] [place] [facility] [address] [id number] [place] [address]- 9536 Oct, [facility] [place] [facility] [address] [id number] [place] [address]- 4181 Oct, [facility] [place] [facility] [address] [id number] [place] [address]- 2027 Oct, [facility] [place] [facility] [address] [id number] [place] [address]- 1850 September, [facility] [place] [facility] [address] [id number] [place] [address]- 7457 Aug, [facility] [place] [facility] [address] [id number] [place] [address]- 7879 Aug, [facility] [place] [facility] [address] [id number] [place] [address]- 7317 Aug, [facility] [place] [facility] [address] [id number] [place] [address]- 3498 Jul, [facility] [place] [facility] [address] [id number] [place] [address]- 6260 Jul, [facility] [place] [facility] [address] [id number] [place] [address]- 9445 Jul, [facility] [place] [facility] [address] [id number] [place] [address]- 8413 Jul, [facility] [place] [facility] [address] [id number] [place] [address]- 5436 Jul, [facility] [place] [facility] [address] [id number] [place] [address]- 2841 Jun, [facility] [place] [facility] [address] [id number] [place] [address]- 2386 Jun, [facility] [address] [id number] [place] [address]- 4026 May, [facility] [place] [facility] [address] [id number] [place] [address]- 3146 May, [facility] [address] [id number] [place] [address]- 9012 Apr, [facility] [place] [facility] [address] [id number] [place] [address]- 4409 Apr, [facility] [place] [facility] [address] [id number] [place] [address]- 5318 Mar, [facility] [address] [id number] [place] [address]- 4989 Mar, [facility] [address] [id number] [place] [address]- 4896 Mar, [facility] [address] [id number] [place] [address]- 7202 Mar, [facility] [address] [id number] [place] [id number] Feb, [facility] [address] [id number] [place] [address]- 9663 Feb, [facility] [place] [facility] [address] [id number] [place] [address]- 7766 Feb, [facility] [place] [facility] [address] [id number] [place] [address]- 2746 Feb, [facility] [place] [facility] [address] [id number] [place] [address]- 5746 Feb, [facility] [place] [facility] [address] [id number] [place] [address]- 1156 Feb, [facility] [place] [facility] [address] [id number] [address]- 6686 Feb, [facility] [place] [facility] [address] [id number] [place] [address] 2544 Jan, [facility] [place] [facility] [address] [id number] [place] [address]- 2546 Jan, [facility] [place] [facility] [address] [id number] [place] [address]- 2546 Dec, [facility] [place] [facility] [address] [id number] [place] [address]- 2546 Dec, [facility] [address] [id number] [place] [address]- 3031 Nov, [facility] [place] [facility] [address] [id number] [place] [address]- 6666 Oct, [facility] [address] [id number] [place] [address]- 2546 September, [facility] [address] [id number] [place] [address]- 2686 September, [facility] [address] [id number] [place] [address]- 2544 September, [facility] [address] [id number] [place] [address]- 1861 Aug, [facility] [place] [facility] [address] [id number] [place] [address]- 2546 May, [facility] [place] [facility] [address] [id number] [address]- 2545 May, [facility] [place] [facility] [address] [id number] [place] [address]- 9363 Apr, [facility] [place] [facility] [address] [id number] [place] [address]- 4356 Apr, [facility] [place] [facility] [address] [id number] [place] [address]- 2545 Apr, [facility] [place] [facility] [address] [id number] [address] Apr, [facility] [id number] [address]- 0528 Apr, [facility] [id number], [place] [address]- 3024 Mar, [facility] [id number], [place] [address]- 9834 Feb, [facility] [id number] [address]- 3893 Feb, [facility] [id number] [place] [address]- 7044 September, [facility] [id number] [place] [address]- 9135 Mar, [facility] [id number], [place] [address]- 3625 Feb, [facility] [id number], [place] [address]- 6335 Feb, [facility] [id number], [place] [address]- 8355 Feb, IMMUNIZATIONS No Known Immunizations SOCIAL HISTORY Never Assessed REASON FOR VISIT Requests return call PLAN OF CARE VITAL SIGNS MEDICATIONS Unknown Medications RESULTS No Results PROCEDURES No Known procedures INSTRUCTIONS MEDICATIONS ADMINISTERED No Known Medications MEDICAL (GENERAL) HISTORY Type Description Date Medical History hypertension Medical History orthopedic disorder Medical History alzheimers disease Medical History neurologic disorder-TIA's Medical History DVT in right leg after foot fx Medical History Dizziness - no significant carotid artery plaque 2011, normal exercise stress echo (EF 60%) Feb 2012 Medical History BPH Medical History Anxiety Surgical History Hernia repair Hospitalization History foot fracture Hospitalization History [facility] [place]- Back Pain 03/24/2017
--- OUTSIDE RECORDS SUMMARY | 2017-08-16 10:19 | XMS REPORT ---
Author Author GELY SHAY [facility] Address [address] [place] [address] Care Team Providers Care Breakfast Host Name Role Phone GELY SHAY Unavailable PROBLEMS Type Condition ICD9-CM Code [id number] Code Onset Dates Condition Status SNOMED Code Problem Transient cerebral ischemia, unspecified transient cerebral ischemia type G45.9 Active 466093676 Problem Anxiety F41.9 Active 19151499 Problem Essential hypertension I10 Active 45213746 Problem Gait instability R26.81 Active 56529090 Problem 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 Active 946526908 Problem Other chronic pain G89.29 Active 75611223 Problem Overactive bladder N32.81 Active 928480710 Problem 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 Active 220113507 Problem Alzheimer's disease, unspecified G30.9 Active 446570091 Problem Mixed hyperlipidemia E78.2 Active 178354504 Problem Primary insomnia F51.01 Active 160285382 Problem Hydrocele, unspecified hydrocele type N43.3 Active 43474712 Problem 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 Active 549408096 Problem 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 Active 362581711 Problem Renal cyst, left Q61.00 Active 39923509 Problem Other acute pulmonary embolism without acute cor pulmonale I26.99 Active 685861592 Problem Benign non-nodular prostatic hyperplasia with lower urinary tract symptoms N40.1 Active 573554946 ALLERGIES Substance Reaction Event Type Date Status Vicodin Unknown Drug Allergy Oct, Active Lovastatin had a reaction to a statin but is unsure of which statin it was Drug Allergy Oct, Active Codeine Sulfate Unknown Drug Allergy Oct, Active SOCIAL HISTORY Never Assessed PLAN OF CARE Activity Details Follow Up 4 Weeks Reason:Anxiety VITAL SIGNS Height 65 in 2016-10-19 Weight 193.0 lbs 2016-10-19 Temperature 97.6 degrees Fahrenheit 2016-10-19 Heart Rate 104 bpm 2016-10-19 Respiratory Rate 22 2016-10-19 BMI 32.11 kg/m2 2016-10-19 Blood pressure systolic 117 mmHg 2016-10-19 Blood pressure diastolic 75 mmHg 2016-10-19 MEDICATIONS Medication Instructions Dosage Frequency Start Date End Date Duration Status Aricept 5 mg Orally Once a day 1 tablet at bedtime 24h 30 days Active Abilify 5 mg Orally Once a day 1 tablet 24h 30 day(s) Active Namenda 10 MG Orally Twice a day 1 tablet 12h Active Eliquis 5 mg Orally 2 times a day 1 tablet 12h Active Cymbalta 30 MG Orally Once a day 1 capsule 24h 30 Active Xanax 0.5 MG 1/2 tablet in the am, 1 tablet in the evening Jul, Active Trazodone HCl 100 mg Orally Once a day 1 tablet at bedtime 24h 30 days Active Flomax 0.4 MG Orally Once a day 1 capsule 30 minutes after the same meal each day 24h 30 Active Proscar 5 MG TAKE 1 TABLET BY MOUTH ONCE DAILY. 30 Active RESULTS No Results PROCEDURES Procedure Date Ordered Result Body Site PCV 13 October 19, 2016 SINGLE IMMUNIZATION ADMIN October 19, 2016 [facility] VISIT ESTABLISHED PATIENT October 19, 2016 IMMUNIZATIONS Vaccine Route Administration Date Status PCV 13 IM Intramuscular October 19, 2016 Administered MEDICAL (GENERAL) HISTORY Type Description Date Medical [...]
[2017-08-16] MEDS ORDERED: APIX2.5T (10:23)
[2017-08-16 10:27] LABS: HEMOGLOBIN 15.3 G/DL (13.3-17.7); MEAN PLATELET VOLUME 9.8 FL (7.4-10.4); RED BLOOD COUNT 5.08 10^6/uL (4.35-5.85); RED CELL DISTRIBUTION WIDTH 13.5 % (10.0-14.5); WHITE BLOOD COUNT 6.2 10^3/uL (4.3-11.0)
[2017-08-16 10:38] LABS: INR 1.1 (0.8-1.4); PROTHROMBIN TIME PATIENT 13.8 SEC (12.2-14.7)
[2017-08-16 10:47] LABS: ALANINE AMINOTRANSFERASE 27 U/L (0-55); ALKALINE PHOSPHATASE 97 U/L (40-136); BILIRUBIN,DIRECT 0.2 MG/DL (0.0-0.3); BILIRUBIN,INDIRECT 0.3 MG/DL; BILIRUBIN,TOTAL 0.5 MG/DL (0.1-1.0); BUN/CREATININE RATIO 18; CALCIUM 9.1 MG/DL (8.5-10.1); CARBON DIOXIDE 27 MMOL/L (21-32); CHLORIDE 105 MMOL/L (98-107); CREATININE SERUM 0.71 MG/DL (0.60-1.30); GFR ESTIMATED > 60; GLUCOSE 108 MG/DL (70-105); POTASSIUM 3.6 MMOL/L (3.6-5.0); SODIUM 138 MMOL/L (135-145); TOTAL PROTEIN 6.7 GM/DL (6.4-8.2)
--- NOTE | 2017-08-16 11:02 | Diagnostic Imaging Report ---
INDICATION: Fall. Injury. COMPARISON: None. FINDINGS: 2 views of the left forearm show no fractures, dislocations, or other acute bony abnormalities identified. Joint spaces are well maintained throughout. The soft tissues appear unremarkable. No radiopaque foreign bodies are identified. IMPRESSION: No acute fractures or dislocations of the left forearm. Dictated by: Dictated on workstation # [id number]
--- NOTE | 2017-08-16 11:04 | Diagnostic Imaging Report ---
PROCEDURE: CT head and CT cervical spine without contrast. TECHNIQUE: Multiple contiguous axial images were obtained through the brain and cervical spine without the use of intravenous contrast. Sagittal and coronal reformations through the cervical spine were then performed. INDICATION: Trauma, fell down stairs with abrasions to the head. Comparison is made with prior CT head from 10/13/2016. CT head: There is some mild soft tissue swelling in the left posterior parietal scalp. The ventricles and sulci are stable. No sulcal effacement, midline shift or hemorrhage is seen. Mild periventricular hypodensity is noted consistent with chronic microvascular ischemia. Cisterns are patent. The visualized paranasal sinuses are clear. IMPRESSION: Small left posterior parietal scalp hematoma. No acute intracranial process is detected. CT cervical spine: Curvature of the cervical spine is normal. There is minimal retrolisthesis of C3 on C4. Severe multilevel degenerative disc disease is identified. There is significant disc space narrowing and marginal osteophyte formation at all levels. Prevertebral tissues are normal. Odontoid is intact. No fractures are seen. IMPRESSION: Severe cervical spondylosis. No acute bony abnormality is detected. Dictated by: Dictated on workstation # [id number]
--- NOTE | 2017-08-16 11:06 | Diagnostic Imaging Report ---
INDICATION: Fall. Injury. COMPARISON: None. FINDINGS: Multiple radiographic views of the bilateral hands were obtained. There is no evidence of acute fracture or dislocation of either hand. Degenerative changes are noted, greatest at the first carpometacarpal joint space, right greater than left. Soft tissue structures are unremarkable. No unexpected radiopaque foreign bodies are seen. IMPRESSION: 1. No radiographic evidence of acute fracture or dislocation of either hand. 2. Osteoarthritis. Dictated by: Dictated on workstation # [id number]
--- NOTE | 2017-08-16 11:09 | ED Fall/Injury ---
General Chief Complaint: Trauma EMS/Air Arrival Activat Stated Complaint: FALL Nursing Triage Note: PT WAS AT [facility] AND WENT TO GO DOWN STAIRS AND STATES HE TWISTED HIS RIGHT ANKLE CAUSING HIM TO FALL DOWN 10-12 STAIRS. PT STATES HE HIT HIS HEAD WITH NO LOC BUT DENIES NECK PAIN. PT COMPLAINS OF LEFT ELBOW, LEFT HAND, AND HEAD PAIN. Source: patient Exam Limitations: no limitations History of Present Illness Date Seen by Provider: Aug 16, 2017 Time Seen by Provider: 10:07 Initial Comments This 71-year-old gentleman presents to the emergency room via EMS after falling down 10-12 concrete stairs at a local business. He did strike his head. He is anticoagulated with Eliquis. He has abrasions to the posterior parietal scalp and forehead. He has pain over these abrasions but denies any neck pain or tenderness. He has abrasions, bruises and skin tears to the left hand, right hand, left justice, and left forearm. He states the fall occurred because he twisted his right ankle but he denies any pain or tenderness in the ankle at present. Type II trauma activation was paged out due to mechanism and patient' s anticoagulated state. EMS reports patient was alert, oriented, and ambulatory at seen. He walked to the ambulance on his own power. There was no reported prodrome to the fall. Allergies and Home Medications Allergies Coded Allergies: codeine (Unverified Allergy, Severe, rash, 01/11/11) hydrocodone (Verified Allergy, Unknown, 08/19/15) lovastatin (Verified Allergy, Unknown, 08/19/15) Home Medications Albuterol Sulfate 6.7 Gm Hfa.aer.ad, 2 PUFF IH Q4H PRN for WHEEZING, (Reported) Alprazolam 0.5 Mg Tablet, 0.5 MG PO BID PRN for ANXIETY, (Reported) Amlodipine Besylate 5 Mg Tablet, 5 MG PO DAILY, (Reported) Cephalexin 500 Mg Capsule, 1 TAB PO BID Prescribed by: KAREN LOCKHART on 08/25/15 09 Cyclobenzaprine HCl 10 Mg Tablet, 10 MG PO Q8H Prescribed by: MATT PURVIS on 03/24/172041 Docusate Sodium 50 Mg Capsule, 50 MG PO HS PRN for CONSTIPATION, (Reported) Donepezil HCl 5 Mg Tablet, 5 MG PO HS, (Reported) Finasteride 5 Mg Tablet, 5 MG PO DAILY, (Reported) Memantine HCl 10 Mg Tablet, 10 MG PO BID, (Reported) Sharon-3 Fatty Acids/Fish Oil 1 Each Capsule, 1 CAP PO BID, (Reported) Oxybutynin Chloride 5 Mg Tablet, 5 MG PO BID, (Reported) Polyethylene Glycol 3350 17 Gm Powd.pack, 17 GM PO DAILY PRN for CONSTIPATION, ( Reported) Pravastatin Sodium 40 Mg Tablet, 40 MG PO DAILY, (Reported) Sennosides 8.6 Mg Tablet, 17.2 MG PO DAILY, (Reported) take 2 (8.6mg) tabs Sulfamethoxazole/Trimethoprim 1 Each Tablet, 1 EACH PO BID Prescribed by: CANDIS SHORE on 06/23/172123 Tamsulosin HCl 0.4 Mg Cap.er.24h, 0.4 MG PO DAILY, (Reported) Tramadol HCl 50 Mg Tablet, 50 MG PO Q4H Prescribed by: MATT PURVIS on 03/24/172041 Trazodone HCl 100 Mg Tablet, 100 MG PO HS, (Reported) [Toradol] , 1 TAB PO PRN Prescribed by: KAREN LOCKHART on 08/25/15 0910 Patient Home Medication List Home Medication List Reviewed: Yes Constitutional: no symptoms reported Eyes: No Symptoms Reported Ears, Nose, Mouth, Throat: no symptoms reported Respiratory: no symptoms reported Cardiovascular: no symptoms reported Gastrointestinal: no symptoms reported Musculoskeletal: see HPI Skin: see HPI Psychiatric/Neurological: No Symptoms Reported Past Wkjrdig-Cjxlqq-Cpyzis Hx Patient Social History Recent Foreign Travel: No Contact w/Someone Who Travel: No Recent Infectious Disease Expo: No Recent Hopitalizations: No Immunizations Up To Date Tetanus Booster (TDap): Less than 5yrs Date of Pneumonia Vaccine: Feb 18, 2015 Date of Influenza Vaccine: Mar 21, 2015 Seasonal Allergies Seasonal Allergies: No Surgeries History of Surgeries: Yes (HERNIA REPAIR, CYSTOCELE) Surgeries: Abdominal Respiratory History of Respiratory Disorde: Yes Respiratory Disorders: Pulmonary Embolism Cardiovascular History of Cardiac Disorders: Yes (DVT LEFT LEG) Cardiac Disorders: Deep Vein Thrombosis, High Cholesterol, Hypertension Neurological History of Neurological Disord: Yes (mild alzheimer's ) Neurological Disorders: Dementia, TIA Reproductive System Hx Reproductive Disorders: No Genitourinary History of Genitourinary Disor: Yes (RENAL CYST; INCONTINENCE, OVERACTIVE BLADDER) Genitourinary Disorders: Benign Prostatic Hyperpl, Prostate Problems Gastrointestinal History of Gastrointestinal Di: Yes (hx of constipation issues) Gastrointestinal Disorders: Chronic Constipation Musculoskeletal History of Musculoskeletal Dis: Yes (GAIT INSTABILITY) Musculoskeletal Disorders: Arthritis Endocrine History of Endocrine Disorders: No (renal cyst) HEENT History of HEENT Disorders: No Hearing Impairment: Hard of Hearing Cancer History of Cancer: No Psychosocial History of Psychiatric Problem: Yes Behavioral Health Disorders: Sleep Difficulties, Anxiety, Depression Integumentary History of Skin or Integumenta: No Blood Transfusions History of Blood Disorders: Yes (hx of dvt) Adverse Reaction to a Blood Tr: No Family Medical History Family Medial History: FH: heart disease 19 FATHER Physical Exam Vital Signs Capillary Refill : General Appearance: WD/WN, mild distress HEENT: PERRL/EOMI, other (abrasions and tenderness over the left posterior parietal region and right forehead. No active bleeding.) Neck: non-tender, supple, normal inspection Cardiovascular: regular rate, rhythm, no edema, no murmur Respiratory: lungs clear, normal breath sounds, no respiratory distress, no accessory muscle use Gastrointestinal: normal bowel sounds, non tender, soft Back: normal inspection, no vertebral tenderness Extremities: no pedal edema, other (pain and tenderness to the left hand and wrist. Pain near the base of the right thumb on the hand. Skin tears especially on the left hand and to lesser degree on the right hand. Abrasion on the left justice.) Neurologic/Psychiatric: warp dyeing vat tender II-XII nml as tested, no motor/sensory deficits, alert, normal mood/affect, oriented x 3 Skin: normal color, warm/dry, other (see extremity exam) Luke Coma Score Best Eye Response: (4) Open Spontaneously Best Verbal Response: (5) Oriented Best Motor Response: (6) Obeys Commands Boykins Total: 15 Progress/Results/Core Measures Results/Orders Lab Results Laboratory Tests Test 08/16/17 10:18 08/16/17 11:25 Range/Units White Blood Count 6.2 4.3-11.0 10^3/uL Red Blood Count 5.08 4.35-5.85 10^6/uL Hemoglobin 15.3 13.3-17.7 G/DL Hematocrit 45 40-54 % Mean Corpuscular Volume 88 80-99 FL Mean Corpuscular Hemoglobin 30 25-34 PG Mean Corpuscular Hemoglobin Concent 34 32-36 G/DL Red Cell Distribution Width 13.5 10.0-14.5 % Platelet Count 206 130-400 10^3/uL Mean Platelet Volume 9.8 7.4-10.4 FL Prothrombin Time 13.8 12.2-14.7 SEC INR Comment 1.1 0.8-1.4 Activated Partial Thromboplast Time 28 24-35 SEC Sodium Level 138 135-145 MMOL/L Potassium Level 3.6 3.6-5.0 MMOL/L Chloride Level 105 98-107 MMOL/L Carbon Dioxide Level 27 21-32 MMOL/L Anion Gap 6 5-14 MMOL/L Blood Urea Nitrogen 13 7-18 MG/DL Creatinine 0.71 0.60-1.30 MG/DL Estimat Glomerular Filtration Rate > 60 BUN/Creatinine Ratio 18 Glucose Level 108 H 70-105 MG/DL Calcium Level 9.1 8.5-10.1 MG/DL Total Bilirubin 0.5 0.1-1.0 MG/DL Direct Bilirubin 0.2 0.0-0.3 MG/DL Indirect Bilirubin 0.3 MG/DL Aspartate Amino Transf (AST/SGOT) 28 5-34 U/L Alanine Aminotransferase (ALT/SGPT) 27 0-55 U/L Alkaline Phosphatase 97 40-136 U/L Total Protein 6.7 6.4-8.2 GM/DL Albumin 4.0 3.2-4.5 GM/DL Serum Alcohol < 10 <10 MG/DL Urine Color YELLOW Urine Clarity CLEAR Urine pH 5 5-9 Urine Specific Dalton 1.020 1.016-1.022 Urine Protein NEGATIVE NEGATIVE Urine Glucose (UA) NEGATIVE NEGATIVE Urine Ketones NEGATIVE NEGATIVE Urine Nitrite NEGATIVE NEGATIVE Urine Bilirubin NEGATIVE NEGATIVE Urine Urobilinogen NORMAL NORMAL MG/DL Urine Leukocyte Esterase 1+ H NEGATIVE Urine RBC (Auto) 1+ H NEGATIVE Urine RBC NONE /HPF Urine WBC 2-5 /HPF Urine Squamous Epithelial Cells NONE /HPF Urine Crystals NONE /LPF Urine Bacteria NEGATIVE /HPF Urine Casts NONE /LPF Urine Mucus NEGATIVE /LPF Urine Culture Indicated NO My Orders Orders - YADI GILMAN MD Cbc No Diff (08/16/17 10:15) Basic Metabolic Panel (08/16/17 10:15) Liver Panel (08/16/17 10:15) Alcohol (08/16/17 10:15) Ua Culture If Indicated (08/16/17 10:15) Ct Head/Cervical Spine Wo (08/16/17 10:15) Chest 1 View, Ap/Pa Only (08/16/17 10:15) Pelvis (08/16/17 10:15) End Tidal Co2 (08/16/17 10:15) Monitor-Rhythm Ecg Trace Only (08/16/17 10:15) Saline Lock/Iv-Start (08/16/17 10:15) Forearm, Left, 2 Views (08/16/17 10:15) Tibia/Fibula, Left, 2 Views (08/16/17 10:15) Protime With Inr (08/16/17 10:15) Partial Thromboplastin Time (08/16/17 10:15) Hand, 3 Views, Bilateral (08/16/17 10:15) Acetaminophen Tablet (Tylenol Tablet) (08/16/17 11:30) Medications Given in ED Current Medications Medications Dose Ordered Sig/Nathan Route Start Time Stop Time Status Last Admin Dose Admin Acetaminophen 1,000 mg ONCE ONCE PO 08/16/17 11:30 08/16/17 11:33 DC 08/16/17 11:50 1,000 MG Progress Note : Time: 12:03 Progress Note Type II trauma activation was paged. CT of the head and cervical spine was performed along with multiple x-rays. No serious injuries were identified on imaging. Patient was ambulatory on his own power without difficulty. Tylenol was given for pain. Case was reviewed with Dr. 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 Patient was dismissed with his family in good condition. Patient reportedly was up-to-date on his tetanus immunizations. Wounds were treated with antibiotic ointment and dressings. Diagnostic Imaging Diagonstic Imaging: CT Plain Films/CT/US/NM/MRI: c-spine, head Comments CT head and C-spine viewed by me and report reviewed. See report below: NAME: FRANKIE SMILEY [facility] REC#: [id number] PT STATUS: REG ER : 1945 PHYSICIAN: YADI GILMAN MD ADMIT DATE: 08/16/17/ER Signed Date of Exam: 08/16/17 CT HEAD/CERVICAL SPINE WO PROCEDURE: CT head and CT cervical spine without contrast. TECHNIQUE: Multiple contiguous axial images were obtained through the brain and cervical spine without the use of intravenous contrast. Sagittal and coronal reformations through the cervical spine were then performed. INDICATION: Trauma, fell down stairs with abrasions to the head. Comparison is made with prior CT head from 10/13/2016. CT head: There is some mild soft tissue swelling in the left posterior parietal scalp. The ventricles and sulci are stable. No sulcal effacement, midline shift or hemorrhage is seen. Mild periventricular hypodensity is noted consistent with chronic microvascular ischemia. Cisterns are patent. The visualized paranasal sinuses are clear. IMPRESSION: Small left posterior parietal scalp hematoma. No acute intracranial process is detected. CT cervical spine: Curvature of the cervical spine is normal. There is minimal retrolisthesis of C3 on C4. Severe multilevel degenerative disc disease is identified. There is significant disc space narrowing and marginal osteophyte formation at all levels. Prevertebral tissues are normal. Odontoid is intact. No fractures are seen. IMPRESSION: Severe cervical spondylosis. No acute bony abnormality is detected. Dictated by: Dictated on workstation # [id number] Dict: 08/16/17 1048 Trans: 08/16/17 1105 Interpreted by: JULY FREITAS MD Electronically signed by: JULY FREITAS MD 08/16/17 1105 Diagonstic Imaging: Xray Plain Films/CT/US/NM/MRI: chest Comments Chest x-ray viewed by me and report reviewed. See report below: NAME: FRANKIE SMILEY [facility] REC#: [id number] PT STATUS: REG ER : 1945 PHYSICIAN: YADI GILMAN MD ADMIT DATE: 08/16/17/ER Draft Date of Exam:08/16/17 CHEST 1 VIEW, AP/PA ONLY INDICATION: Fall. Injury. COMPARISON: 04/17/2017 FINDINGS: Single frontal view of the chest demonstrates normal heart size and pulmonary vascularity. The lungs are well aerated and clear. No large pleural effusion or pneumothorax is seen. The visualized osseous structures show no acute abnormalities. IMPRESSION: 1. No acute cardiopulmonary process. Dictated on workstation # [id number] Dict: 08/16/17 1059 Trans: 08/16/17 1107 [id number] Interpreted by: SHAN HAN MD Diagonstic Imaging: Xray Plain Films/CT/US/NM/MRI: forearm Comments X-ray of the left forearm viewed by me and report reviewed. See report below: NAME: FRANKIE SMILEY [facility] REC#: [id number] PT STATUS: REG ER : 1945 PHYSICIAN: YADI GILMAN MD ADMIT DATE: 08/16/17/ER Draft Date of Exam:08/16/17 FOREARM, LEFT, 2 VIEWS INDICATION: Fall. Injury. COMPARISON: None. FINDINGS: 2 views of the left forearm show no fractures, dislocations, or other acute bony abnormalities identified. Joint spaces are well maintained throughout. The soft tissues appear unremarkable. No radiopaque foreign bodies are identified. IMPRESSION: No acute fractures or dislocations of the left forearm. Dictated on workstation # [id number] Dict: 08/16/17 1059 Trans: 08/16/17 1102 [id number] Interpreted by: SHAN HAN MD Diagonstic Imaging: Xray Plain Films/CT/US/NM/MRI: hand Comments X-ray of the bilateral hands viewed by me and report reviewed. See report below : NAME: FRANKIE SMILEY [facility] REC#: [id number] PT STATUS: REG ER : 1945 PHYSICIAN: YADI GILMAN MD ADMIT DATE: 08/16/17/ER Draft Date of Exam:08/16/17 HAND, 3 VIEWS, BILATERAL INDICATION: Fall. Injury. COMPARISON: None. FINDINGS: Multiple radiographic views of the bilateral hands were obtained. There is no evidence of acute fracture or dislocation of either hand. Degenerative changes are noted, greatest at the first carpometacarpal joint space, right greater than left. Soft tissue structures are unremarkable. No unexpected radiopaque foreign bodies are seen. IMPRESSION: 1. No radiographic evidence of acute fracture or dislocation of either hand. 2. Osteoarthritis. Dictated on workstation # [id number] Dict: 08/16/17 1100 Trans: 08/16/17 1106 [id number] Interpreted by: SHAN HAN MD Diagonstic Imaging: Xray Comments X-ray of the pelvis viewed by me and report reviewed. See report below: NAME: FRANKIE SMILEY [facility] REC#: [id number] PT STATUS: REG ER : 1945 PHYSICIAN: YADI GILMAN MD ADMIT DATE: 08/16/17/ER Draft Date of Exam:08/16/17 PELVIS INDICATION: Fall. TIME OF EXAMINATION: 11:03 AM. FINDINGS: A single AP view of the pelvis was obtained. The femoroacetabular alignment is normal bilaterally. There are osteoarthritic changes involving the bilateral hips. Superior joint space narrowing is noted bilaterally. There appears to be some sclerosis and subchondral cyst formation of the left femoral head. The femoral heads and necks are intact. No fractures are seen. The rami appear intact. The SI joints and symphysis are non-widened. IMPRESSION: Degenerative changes of the bilateral hips. No acute bony abnormality is detected. Dictated on workstation # [id number] Dict: 08/16/17 1059 Trans: 08/16/17 1108 [id number] Interpreted by: JULY FREIATS MD Diagonstic Imaging: Xray Plain Films/CT/US/NM/MRI: leg Comments X-ray of the left tib-fib viewed by me and report reviewed. See report below: NAME: FRANKIE SMILEY [facility] REC#: [id number] PT STATUS: REG ER : 1945 PHYSICIAN: YADI GILMAN MD ADMIT DATE: 08/16/17/ER Draft Date of Exam:08/16/17 TIBIA/FIBULA, LEFT, 2 VIEWS INDICATION: Left leg injury. TIME OF EXAMINATION: 11:04 AM. FINDINGS: Two views of the left tibia and fibula were obtained. The alignment at the knee and ankle appears normal. The tibia and fibula appear intact. No fractures are seen. The soft tissues are unremarkable. IMPRESSION: No acute bony abnormality is detected. Dictated on workstation # [id number] Dict: 08/16/17 1100 Trans: 08/16/17 1109 [id number] Interpreted by: JULY FREITAS MD Departure Impression Impression: Primary Impression: Fall down stairs Qualified Codes: W10.8XXA - Fall (on) (from) other stairs and steps, initial encounter Additional Impressions: Anticoagulated Skin tear of left hand without complication Qualified Codes: S61.412A - Laceration without foreign body of left hand, initial encounter Multiple abrasions Minor head injury Qualified Codes: S00.90XA - Unspecified superficial injury of unspecified part of head, initial encounter Disposition: HOME, SELF-CARE Condition: Improved Departure-Patient Inst. Decision time for Depature: 11:25 Referrals: SHAY HONG MD (PCP/Family) Primary Care Physician Patient Instructions: Minor Head Injury, Skin Abrasions Add. Discharge Instructions: You may take Tylenol (acetaminophen) up to 1000 mg every 6 hours as needed for pain. You may also ice the affected areas in 20 minute intervals. Follow-up with your primary care provider if you do not feel you are recovering as expected. Return to the emergency room if you have notably worsening symptoms, especially if you have neurologic symptoms such as worsening headache, nausea, changes in vision, numbness or weakness of any part of your body, confusion, nausea or vomiting, etc. Monitor your skin wounds for signs of infection and return to care if you have any concerns. All discharge instructions reviewed with patient and/or family. Voiced understanding. YADI GILMAN MD Aug 16, 2017 11:09
[2017-08-16] MEDS ORDERED: ACETAMINOPHEN 500 MG TAB (TYLENOL) PO ONE (11:30)
[2017-08-16 11:37] LABS: BILIRUBIN,URINE NEGATIVE (NEGATIVE); CLARITY,URINE CLEAR; COLOR,URINE YELLOW; GLUCOSE, URINE (UA) NEGATIVE (NEGATIVE); KETONES,URINE NEGATIVE (NEGATIVE); LEUKOCYTE ESTERASE ,URINE 1+ (NEGATIVE); NITRITE,URINE NEGATIVE (NEGATIVE); PH,URINE 5 (5-9); PROTEIN,URINE NEGATIVE (NEGATIVE); UROBILINOGEN,URINE NORMAL (NORMAL)
[2017-08-16 11:50] LABS: BACTERIA,URINE NEGATIVE /HPF
[2017-08-16 12:11] VITALS: BP 112/84
== END 2017-08-16 12:11 | disposition home or self-care (01) ==
LOC: EDUNIT# 10:06 → ER 10:07
DX: S09.90XA Unspecified injury of head, initial encounter (principal); S61.411A Laceration without foreign body of right hand, initial encounter; R40.2142 Coma scale, eyes open, spontaneous, at arrival to emergency department; R40.2252 Coma scale, best verbal response, oriented, at arrival to emergency department; R40.2362 Coma scale, best motor response, obeys commands, at arrival to emergency department; E78.00 Pure hypercholesterolemia, unspecified; I10 Essential (primary) hypertension; F03.90 Unspecified dementia, unspecified severity, without behavioral disturbance, psychotic disturbance, mood disturbance, and anxiety; F41.9 Anxiety disorder, unspecified; F32.9 Major depressive disorder, single episode, unspecified; Z87.448 Personal history of other diseases of urinary system; Z86.73 Personal history of transient ischemic attack (TIA), and cerebral infarction without residual deficits; Z88.5 Allergy status to narcotic agent; Z82.49 Family history of ischemic heart disease and other diseases of the circulatory system; Z88.8 Allergy status to other drugs, medicaments and biological substances; Z79.01 Long term (current) use of anticoagulants; Z87.19 Personal history of other diseases of the digestive system; Z86.718 Personal history of other venous thrombosis and embolism; W10.8XXA Fall (on) (from) other stairs and steps, initial encounter
CPT/HCPCS: 36415; 70450; 71045; 72125; 72170; 73090; 73590; 80048; 80076; 80320; 81000; 85027; 85610; 85730; 93041

== ENCOUNTER 2017-08-28 21:25 | Emergency (ER) | payer MEDICARE, OTHER ==
[~2017-08-28] VITALS: Ht 167.6 cm; Wt 88.0 kg
[~2017-08-28 21:25] MED LIST changes: +APIX2.5T
--- OUTSIDE RECORDS SUMMARY | 2017-08-28 21:33 | XMS REPORT ---
Author Author KENNETH MCQUEEN [facility] Address [address] [place] [address] Care Team Providers Care Oreman Name Role Phone MCQUEENDANIEAN Unavailable PROBLEMS Type Condition ICD9-CM Code RNA42-AR Code Onset Dates Condition Status SNOMED Code Problem Hypermetropia of both eyes H52.03 Active 17099517 Problem Transient cerebral ischemia, unspecified transient cerebral ischemia type G45.9 Active 810419977 Problem Color blindness H53.50 Active 528447738 Problem Essential hypertension I10 Active 95957047 Problem Presbyopia of both eyes H52.4 Active 05526292 Problem Anxiety F41.9 Active 84131383 Problem Other chronic pain G89.29 Active 80041263 Problem Overactive bladder N32.81 Active 483617858 Problem At high risk for falls Z91.81 Active [id number] Problem Asymptomatic microscopic hematuria R31.21 Active 633038887 Problem Mixed hyperlipidemia E78.2 Active 787745510 Problem Astigmatism of both eyes, unspecified type H52.203 Active 19667628 Problem Nuclear senile cataract of both eyes H25.13 Active 756914903 Problem 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 Active 910649225 Problem Alzheimer's disease, unspecified G30.9 Active 507714680 Problem Gait instability R26.81 Active 64788251 Problem 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 Active 902884727 Problem Other acute pulmonary embolism without acute cor pulmonale I26.99 Active 501665528 Problem Hydrocele, unspecified hydrocele type N43.3 Active 96578661 Problem Primary insomnia F51.01 Active 978548412 Problem 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 Active 707131610 Problem 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 Active 03612403 Problem Benign non-nodular prostatic hyperplasia with lower urinary tract symptoms N40.1 Active 263662592 Problem 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 Active 883755567 Problem Renal cyst, left Q61.00 Active 28237331 ALLERGIES No Information ENCOUNTERS Encounter Location Date Diagnosis [facility] [id number] [place] [address] 13785- 9865 September, [facility] [id number] [place] [address] 20461- 1604 September, [facility] [address] 13362- 9159 Aug, [facility] [id number] [place] [address] 03324- 6128 Jul, [place] [address] [address]- 6073 13 Jun, 2017 [place] [id number] [place] [address] 22928- 9028 07 Jun, 2017 Medicare annual wellness visit, initial Z00.00 ; Mixed hyperlipidemia E78.2 ; Essential hypertension I10 ; Anxiety F41.9 ; 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 ; 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 ; Overactive bladder N32.81 ; Primary insomnia F51.01 ; At high risk for falls Z91.81 and Encounter for immunization Z23 [facility] [id number] [place] [address] 18912- 8189 May, [facility] [id number] [place] [address] 53077- 4230 May, Essential hypertension I10 and Transient cerebral ischemia, unspecified transient cerebral ischemia type G45.9 [facility] [id number] [place] [address] [id number] May, Dental examination Z01.20 and Dental caries K02.9 [facility] [id number] [place] [address] 61939- 5574 May, [facility] [id number] [place] [address] 44984- 6393 May, [place] [id number] [place] [address] 92997- 7143 May, 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 [facility] [address] 55975- 3692 Apr, [facility] [address] 25462- 6068 Apr, 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 and 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 [facility] [address] 21188- 1332 Mar, 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 [place] [address] 83815- 7691 Mar, Mixed hyperlipidemia E78.2 ; Essential hypertension I10 ; Asymptomatic microscopic hematuria R31.21 and Renal cyst, left Q61.00 [place] [address] 57118- 4231 Mar, [place] [address] 66501- 2756 Feb, Encounter for immunization Z23 [facility] [address] 66755- 4404 Feb, [facility] [address] 75483- 5552 Feb, [facility] [address] 83195 -3198 Feb, ANUG (acute necrotizing ulcerative gingivitis) A69.1 [facility] [address] 54021- 0094 Feb, [facility] [address] 54386- 5351 Feb, 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 [place] [address] 03866- 6948 Feb, 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 and 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 [facility] [address] [address]- 1570 Jan, 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 [facility] [address] [address]- 4632 Jan, Gait instability R26.81 [facility] [address] [id number] [place] [address] Jan [facility] [address] [id number] [place] [address] Dec [facility] [address] [address]- 6442 Dec, [facility] [id number] [place] [address] 89589- 9992 Dec, [facility] [id number] [place] [address] 65013- 6222 Dec, Essential hypertension I10 ; Transient cerebral ischemia, unspecified transient cerebral ischemia type G45.9 and Anxiety F41.9 [facility] [address] [address]- 1458 Dec, Gait instability R26.81 [facility] [address] [address] 8038 Dec, [facility] [id number] [place] [address] 65735- 6869 Nov, 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 and 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 [facility] [address], [place] [address] 5740 Nov, [facility] [address] [address]- 2492 Nov, Gait instability R26.81 [facility] [id number] [address] 0163 14 Nov, 2016 Anxiety F41.9 [facility] [id number] [place] [address] 86325- 6790 Nov, [facility] [id number] [place] [address] 78171- 3473 Nov, [facility] [id number] [place] [address] 38556- 7270 Oct, Gait instability R26.81 [facility] [id number] [place] [address] 00716- 9452 Oct, Anxiety F41.9 [facility] [id number] [place] [address] 25036- 5667 Oct, Gait instability R26.81 [facility] [id number] [place] [address] 87700- 7204 Oct, Gait instability R26.81 [facility] [id number] [place] [address] 67494- 0127 Oct, [facility] [id number] [place] [address] 57124- 1487 Oct, Anxiety F41.9 ; Chronic 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 use Z79.899 ; Encounter for immunization Z23 and Transient cerebral ischemia, unspecified transient cerebral ischemia type G45.9 [facility] [address] [address]- 0571 September, [facility] [id number] [place] [address] 41776- 0378 September, Gait instability R26.81 [facility] [id number] [address]- 1582 September, [facility] [address] [address]- 4510 September, [facility] [id number] [place] [address] 51891- 7476 September, [facility] [address], [place] [address]- 3336 September, 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 and 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 [facility] [address] [address]- 4662 September, [facility] [id number] [place] [address] 77961- 4490 September, [facility] [address], [place] [address]- 1943 September, [facility] [id number] [place] [address] 11168- 7728 September, 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 [facility] [address] [address]- 6136 Aug, 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 ; 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 ; Other acute pulmonary embolism without acute cor pulmonale I26.99 and Cough R05 [facility] [address], [place] [address]- 1892 Aug, [facility] [address] [address]- 4642 Aug, Gait instability R26.81 [facility] [address], [place] [address]- 1361 Aug, 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 and 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 [facility] [address], [place] [address]- 6650 Aug, [facility] [address], [place] [address]- 2025 Aug, 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 [facility] [address], [place] [address]- 7855 Jul, 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 [facility] [id number] [place] [address] 91066- 7293 Jul, [facility] [id number] [place] [address] 48490- 6153 Jul, 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 [facility] [id number] [place] [address] 16435- 5195 Jul, Anxiety F41.9 ; 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 and Transient cerebral ischemia, unspecified transient cerebral ischemia type G45.9 [facility] [id number] [place] [address] 20912- 3725 Jun, Essential hypertension I10 [facility] [id number] [place] [address] 07280- 0077 Jun, [facility] [id number] [place] [address] 12399- 2834 Jun, [facility] [address] [place] [address] 76408- 6300 Jun, [facility] [id number] [place] [address] 00109- 8942 Jun, Essential hypertension I10 ; Benign non-nodular prostatic hyperplasia with lower urinary tract symptoms N40.1 ; Anxiety F41.9 ; Pain in right knee M25.561 ; Pain in left knee M25.562 and Other chronic pain G89.29 [facility] [address] [place] [address] 17179- 3939 May, [facility] [id number] [place] [address] 09071- 0777 May, [facility] [address] [place] [address] 43121- 0528 May, [facility] [id number] [place] [address] 80792- 1203 Apr, [facility] [id number] [place] [address] 58323- 2454 Mar, [facility] [id number] [place] [address] 84451- 2192 Mar, Mixed hyperlipidemia E78.2 and Essential hypertension I10 [place] [address] 40329- 5858 Feb, [facility] [address] 05223- 1034 Feb, Ingrown nail L60.0 and Onychomycosis B35.1 [place] [address] 23252- 4337 Feb, Paronychia, left L03.012 [place] [address] 26826- 9866 Jan, [place] [address] 18745- 3133 Jan, Cramps of right lower extremity R25.2 and Mixed hyperlipidemia E78.2 [place] [id number] [place] [address] 03546- 9475 Jan, Cramps of right lower extremity R25.2 ; Essential hypertension I10 ; Mixed hyperlipidemia E78.2 ; Chronic 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 use Z79.899 and Claudication I73.9 [place] [id number] [place] [address] 11361- 5105 Jan, Right leg pain M79.604 [place] [id number] [place] [address] 65130- 1017 Dec, [place] [id number] [place] [address] 62914- 6744 Nov, [facility] [id number] [place] [address] 57830- 2616 Nov, [place] [id number] [address]- 9526 Nov, [facility] [id number] [place] [address] 86180- 9076 Nov, Dermatofibroma D23.9 [facility] [id number] [place] [address] 08306- 3141 Nov, [facility] [id number] [place] [address] 52345- 4944 Oct, [facility] [id number] [place] [address] 17545- 8061 Oct, [facility] [id number] [place] [address] 45509- 7704 September, Benign non-nodular prostatic hyperplasia with lower urinary tract symptoms N40.1 ; Essential hypertension I10 ; Overactive bladder N32.81 and Fatigue, unspecified type R53.83 [facility] [id number] [place] [address] 79318- 0780 September, [facility] [id number] [place] [address] 14121- 0811 September, [facility] [id number] [place] [address] 22437- 3588 Aug, [facility] [address] [address]- 3675 Jul, [facility] [id number] [place] [address] 28277- 3676 Jul, Pelvic pain R10.2 ; Jock itch B35.6 ; Essential hypertension I10 and Hydrocele, unspecified hydrocele type N43.3 [facility] [id number] [place] [address] 66998- 2045 Jun, [facility] [id number] [place] [address] 53750- 5796 Jun, [facility] [id number] [place] [address] 29306- 2726 Jun, Benign non-nodular prostatic hyperplasia with lower urinary tract symptoms N40.1 [facility] [id number] [place] [address] 47971- 6362 Jun, Benign non-nodular prostatic hyperplasia with lower urinary tract symptoms N40.1 [facility] [id number] [place] [address] 16260- 8363 Jun, [facility] [id number] [place] [address] 12546- 4142 May, [facility] [id number] [place] [address] 99739- 7778 Apr, [facility] [id number] [place] [address] 02761- 0223 Apr, [facility] [address] 29988- 9633 Apr, Other acute pulmonary embolism without acute cor pulmonale I26.99 ; Anxiety F41.9 ; 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 and long-term 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 use Z79.899 [facility] [id number] [place] [address] 31084- 1780 Apr, [facility] [id number] [place] [address] 13593- 1209 Apr, [facility] [id number] [place] [address] 50648- 2690 Mar, [facility] [id number] [place] [address] 98876- 4667 Mar, [facility] [address] 44884- 6734 Feb, Cough R05 [facility] [id number] [place] [address] 43246- 0387 Feb, [facility] [address] 09511- 8967 Feb, Encounter for immunization Z23 [facility] [address] [address]- 1970 Feb, Other and unspecified hyperlipidemia 272.4 [facility] [address] [address]- 8022 Jan, [facility] [id number] [place] [address] 14422- 0685 Jan, TIA (transient ischemic attack) 435.9 [facility] [address] [place] [address] 56715- 6324 Dec, [facility] [id number] [place] [address] 95573- 3850 Dec, [facility] [id number] [place] [address] 92220- 7962 Dec, [facility] [id number] [place] [address] 23145- 5721 Nov, [facility] [address], [place] [address]- 3061 Oct, Chronic cough 786.2 [facility] [id number] [address]- 2914 Oct, [facility] [address] [address]- 2094 Oct, [facility] [address] [address]- 2415 Oct, [facility] [address] [address]- 9622 Oct, [facility] [id number] [address]- 4895 Oct, Chronic cough 786.2 [facility] [address], [place] [address]- 2369 Oct, Cough 786.2 ; Hypertension 401.9 ; BPH (benign prostatic hyperplasia) 600.00 ; Other and unspecified hyperlipidemia 272.4 and Hydrocele 603.9 [facility] [address] [address]- 7821 Oct, [facility] [id number] [address]- 2480 September, [facility] [id number] [place] [address] 88030- 7496 Aug, [facility] [address] [place] [address] 61190- 7966 Aug, [facility] [id number] [place] [address] 12678- 6408 Jul, [facility] [id number] [place] [address] 16046- 9420 Jul, [facility] [id number] [place] [address] 24764- 2359 Jul, [facility] [address] [address]- 5186 Jul, [facility] [address] [address]- 6582 Jul, [facility] [address], [place] [address]- 5371 Jun, [facility] [address] [address]- 4397 Jun, [facility] [address], [place] [address]- 3049 Jun, [facility] [address], [place] [address]- 0103 Jun, [facility] [address] 4974 Jun, [facility] [address], [place] [address]- 2339 Jun, [facility] [address] [id number] [place] [address]- 8389 Jun, [facility] [place] [facility] [address] [id number] [place] [address]- 2241 Jun, [facility] [place] [facility] [address] [id number] [place] [address]- 0656 May, [facility] [place] [facility] [address] [id number] [place] [address]- 6659 May, [facility] [place] [facility] [address] [id number] [place] [address]- 1560 May, [facility] [place] [facility] [address] [id number] [place] [address]- 6047 May, [facility] [place] [facility] [address] [id number] [place] [address]- 0068 May, [facility] [place] [facility] [address] [id number] [place] [address]- 4809 May, [facility] [place] [facility] [address] [id number] [place] [address]- 3617 May, [facility] [place] [facility] [address] [id number] [place] [address]- 1018 May, [facility] [place] [facility] [address] [id number] [place] [address]- 6951 May, [facility] [place] [facility] [address] [id number] [address]- 8011 May, [facility] [place] [facility] [address] [id number] [place] [address]- 8004 Apr, [facility] [place] [facility] [address] [id number] [place] [address]- 6046 Apr, [facility] [place] [facility] [address] [id number] [place] [address]- 1807 Apr, [facility] [place] [facility] [address] [id number] [place] 4190 Apr, [facility] [place] [facility] [address] [id number] [place] [address]- 7993 Apr, [facility] [place] [facility] [address] [id number] [place] 9521 Apr, [facility] [place] [facility] [address] [id number] [place] [address]- 6277 Apr, [facility] [place] [facility] [address] [id number] [place] [address]- 3840 Apr, [facility] [place] [facility] [address] [id number] [place] [address]- 6568 Mar, [facility] [place] [facility] [address] [id number] [place] [address]- 4782 Mar, [facility] [place] [facility] [address] [id number] [place] [address]- 4082 Mar, [facility] [place] [facility] [address] [id number] [place] [address]- 0747 Mar, [facility] [place] [facility] [address] [id number] [place] [address]- 2933 Mar, [facility] [place] [facility] [address] [id number] [place] [address]- 5474 Mar, [facility] [place] [facility] [address] [id number] [place] [address]- 8141 Mar, [facility] [place] [facility] [address] [id number] [place] [address] Mar, [facility] [place] [facility] [address] [id number] [place] [address] Mar, [facility] [place] [facility] [address] [id number] [place] [address] Mar, [facility] [place] [facility] [address] [id number] [place] [address] 30 Feb, 2013 [facility] [place] [facility] [address] [id number] [place] [address] 30 Feb, 2013 [facility] [place] [facility] [address] [id number] [place] [address] 29 Feb, 2013 [facility] [place] [facility] [address] [id number] [place] [address] 29 Feb, 2014 [facility] [place] [facility] [address] [id number] [place] [address] 14 Feb, 2014 [facility] [place] [facility] [address] [id number] [place] [address] 14 Feb, 2014 [facility] [place] [facility] [address] [id number] [place] [address] 30 Jan, 2013 [facility] [place] [facility] [address] [id number] [place] [address] 30 Sep, 2013 [facility] [place] [facility] [address] [id number], [place] [address] 24 Sep, 2013 [facility] [place] [facility] [address] [id number] [place] [address] 24 Sep, 2013 [facility] [place] [facility] [address] [id number], [place] [address] 19 Sep, 2013 [facility] [place] [facility] [address] [id number], [place] [address] 19 Sep, 2013 [facility] [place] [facility] [address] [id number], [place] [address] 16 Sep, 2013 [facility] [place] [facility] [address] [id number], [place] [address] 16 Sep, 2013 [facility] [place] [facility] [address] [id number], [place] [address] 16 Sep, 2013 [facility] [place] [facility] [address] [id number], [place] [address] 16 Sep, 2013 [facility] [place] [facility] [address] [id number] [place] [address] Jan, [facility] [place] [facility] [address] [id number] [place] [address] Jan, [facility] [place] [facility] [address] [id number] [place] [address] Dec, [facility] [place] [facility] [address] [id number] [place] [address] Dec, [facility] [place] [facility] [address] [id number] [place] [address] Dec, [facility] [place] [facility] [address] [id number] [place] [address] Dec, [facility] [place] [facility] [address] [id number] [place] [address] Dec, [facility] [place] [facility] [address] [id number] [place] [address] Dec, [facility] [facility] [address] [id number] [place] [address] Nov, [facility] [place] [facility] [address] [id number] [place] [address] Nov, [facility] [place] [facility] [address] [id number] [place] [address] Nov, [facility] [place] [facility] [address] [id number] [place] [address] Nov, [facility] [place] [facility] [address] [id number] [place] [address] Nov, [facility] [place] [facility] [address] [id number] [place] [address] Nov, [facility] [place] [facility] [address] [id number] [place] [address]367 Nov, [facility] [place] [facility] [address] [id number] [place] [address]- [address]692 Nov, [facility] [place] [facility] [address] [id number] [place] [address]- [address] Oct, [facility] [place] [facility] [address] [id number] [place] [address] Oct, [facility] [address] [id number] [place] [address] Oct, [facility] [place] [facility] [address] [id number] [place] [address]- 9409 Oct, [facility] [place] [facility] [address] [id number] [place] [address]- [address] September, [facility] [place] [address] [id number] [place] [address] 480[address] September, [facility] [address] [id number] [place] [address] 6106 September, [facility] [place] [address] [id number] [place] [address]- 1460 September, [facility] [address] [id number] [place] [address] September, [facility] [place] [facility] [address] [id number] [place] [address] September, [facility] [address] [id number] [place] [address] Aug, [facility] [address] [id number] [place] [address]- 3549 Aug, [facility] [address] [id number] [place] [address]- 1435 Aug, [facility] [place] [facility] [address] [id number] [place] [address]- [address] Aug, [facility] [address] [id number] [place] [address]- 3447 Aug, [facility] [address] [id number] [place] [address]- 0255 Aug, [facility] [address] [id number] [place] [address]- 1941 Aug, [facility] [address] [id number] [place] [address] Aug, [facility] [address] [id number] [place] [address] 8131 Jul, [facility] [address] [id number] [place] [address]- [address] Jul, [facility] [address] [id number] [place] [address]- 7353 Jun, [facility] [place] [facility] [address] [id number] [place] [address]- 0629 Jun, [facility] [address] [facility] [id number] [place] [address]- 5638 Jun, [facility] [address] [facility] [id number] [place] [address]- 7223 Jun, [facility] [address] [id number] [place] [address]- 5594 Jun, [facility] [address] [facility] [id number] [place] [address]- 1771 May, [facility] [address] [id number] [place] [address]- 6869 May, [facility] [address] [id number] [place] [address] 6300 May, [facility] [address] [id number] [place] [address]- 0340 May, [facility] [address] [id number] [place] [address]- 6040 Apr, [facility] [address] [facility] [id number] [place] [address]- [address]134 Apr, [facility] [address] [id number] [place] [address]- 7090 Mar, [facility] [address] [id number] [place] [address]- 3595 Mar, [facility] [address] [id number] [place] [address]- 4827 Feb, [facility] [address] [id number] [place] [address]- 4297 Feb, [facility] [address] [id number] [place] [address]- 2629 Feb, [facility] [address] [id number] [place] [address]- 0394 Feb, [facility] [address] [id number] [place] [address]- 4754 Feb, [facility] [address] [id number] [place] [address]- 7233 Feb, [facility] [address] [id number] [place] [address]- 3925 Feb, [facility] [address] [id number] [place] [address]- 0382 Jan, [facility] [address] [id number] [place] [address]- 6284 Jan, [facility] [address] [id number] [place] [address]- 3471 Dec, [facility] [address] [id number] [place] [address]- 8456 Dec, [facility] [address] [id number] [place] [address]- [address]459 15 Dec, 2012 [facility] [address] [id number] [place] [address]- 5695 14 Dec, 2012 [facility] [address] [id number] [place] [address]- 1826 Dec, [facility] [address] [id number] [place] [address]- 4983 Nov, [facility] [address] [id number] [place] [address]- 0516 Nov, [facility] [address] [id number] [place] [address] 2546 Nov, [facility] [address] [id number] [place] [address]- 0727 Oct, [facility] [address] [id number] [place] [address]- 9330 Oct, [facility] [address] [id number] [place] [address]- 3766 Oct, [facility] [address] [id number] [place] [address]- 0667 September, [facility] [address] [id number] [place] [address]- 5430 Aug, [facility] [address] [id number] [place] [address]- 0508 Aug, [facility] [address] [id number] [place] [address]- 0625 Aug, [facility] [address] [id number] [place] [address]- 4486 Jul, [facility] [address] [id number], [place] [address] 2540 Jul, [facility] [address] [id number] [place] [address]- 2546 Jul, [facility] [address] [id number] [place] [address]- 2546 Jul, [facility] [address] [id number] [place] [address]- 2546 Jul, [facility] [address] [id number] [place] [address]- 9456 Jun, [facility] [address] [id number] [place] [address]- 4126 Jun, [facility] [address] [id number] [place] [address]- 2546 May, [facility] [address] [id number] [place] [address]- 7666 May, [facility] [address] [id number] [place] [address]- 8067 Apr, [facility] [address] [id number] [place] [address]- 1835 Apr, [facility] [address] [id number] [place] [address]- 2903 Mar, [facility] [address] [id number] [place] [address]- 2003 Mar, [facility] [address] [id number] [place] [address]- 1149 Mar, [facility] [address] [id number] [place] [address]- [address] Mar, [facility] [address] [id number] [id number] Feb, [facility] [address] [id number], [place] [address]- 66[address] Feb, [facility] [address] [id number], [place] [address]- 7116 Feb, [facility] [address] [id number], [place] [address]- 6441 Feb, [facility] [address] [id number], [place] [address]- 7496 Feb, [facility] [address] [id number], [place] [address]- 2216 Feb, [facility] [address] [id number] [place] [address]- 4616 Feb, [facility] [address] [id number] [place] [address]- 7366 Jan, [facility] [address] [id number] [place] [address]- 2546 Jan, [facility] [address] [id number] [place] [address]- 2546 Dec, [facility] [address] [id number] [place] [address]- 1696 Dec, [facility] [address] [id number] [place] [address]- 3178 Nov, [facility] [address] [id number] [place] [address]- 7103 Oct, [facility] [address] [id number] [place] [address]- 9356 September, [facility] [address] [id number] [place] [address]- 9494 September, [facility] [address] [id number] [place] [address]- 6976 September, [facility] [address] [id number] [place] [address]- 0297 Aug, [facility] [address] [id number] [place] [address]- 7766 May, [facility] [address] [id number] [place] [address]- 0153 May, [facility] [address] [id number] [place] [address]- 0516 Apr, [facility] [address] [id number] [place] [address]- 1866 Apr, [facility] [address] [id number], [place] [address]- 20[address] Apr, [facility] [address] [facility] [id number], [place] [address]- 4044 Apr, [facility] [address] [facility] [id number], [place] [address]- 9136 Apr, [facility] [address] [facility] [id number], [place] [address]- 5493 Mar, [facility] [address] [facility] [id number], [place] [address]- 0540 Feb, [facility] [address] [facility] [id number][place] [address] Feb, [facility] [address] [facility] [id number], [place] [address]- 2730 September, [facility] [id number], [place] [address]- 8976 Mar, [facility] [id number], [place] [address]- 5275 Feb, [facility] [address] [id number], [place] [address]- 7461 Feb, [facility] [address] [id number], [place] [address]- 5341 Feb, IMMUNIZATIONS No Known Immunizations SOCIAL HISTORY Never Assessed REASON FOR VISIT R/S appointment PLAN OF CARE VITAL SIGNS MEDICATIONS Unknown [...] Hospitalization History foot fracture Hospitalization History Via [facility] [address]- Back Pain 03/24/2017
--- OUTSIDE RECORDS SUMMARY | 2017-08-28 21:39 | XMS REPORT | Continuity of Care Document ---
Author Author [facility] Address Unknown Phone Unavailable Allergies Active Description Code Type Severity Reaction Onset Reported/Identified Relationship to Patient Clinical Status Yes codeine Drug Allergy N/A N/A 12/14/2009 Yes Vicodin Drug Allergy N/A N/A 12/14/2009 Yes codeine Drug Allergy 12/14/2009 Yes Vicodin Drug Allergy 12/14/2009 Yes statin Drug Allergy 12/20/2009 Yes codeine [id number] Drug Allergy Severe rash 01/11/2011 Yes acetaminophen [id number] Drug Allergy Unknown N/A 08/19/2015 Yes hydrocodone [id number] Drug Allergy Unknown N/A 08/19/2015 Yes lovastatin [id number] Drug Allergy Unknown N/A 08/19/2015 Medications There is no data. 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 12/14/2009 MONIKA GOMEZ MD 331.0 ALZHEIMER DISEASE 12/14/2009 MONIKA GOMEZ MD 401.1 HYPERTENSION, BENIGN ESSENTIAL 12/14/2009 MONIKA GOMEZ MD 435.9 TRANSIENT ISCHEMIC ATTACK (TIA) 12/14/2009 331.0 ALZHEIMER DISEASE 12/14/2009 401.1 HYPERTENSION, BENIGN ESSENTIAL 12/14/2009 435.9 TRANSIENT ISCHEMIC ATTACK (TIA) 12/14/2009 331.0 ALZHEIMER DISEASE 12/14/2009 401.1 HYPERTENSION, BENIGN ESSENTIAL 12/14/2009 435.9 TRANSIENT ISCHEMIC ATTACK (TIA) 12/14/2009 331.0 ALZHEIMER DISEASE 12/14/2009 401.1 HYPERTENSION, BENIGN ESSENTIAL 12/14/2009 435.9 TRANSIENT ISCHEMIC ATTACK (TIA) 12/14/2009 331.0 ALZHEIMER DISEASE 12/14/2009 401.1 HYPERTENSION, BENIGN ESSENTIAL 12/14/2009 435.9 TRANSIENT ISCHEMIC ATTACK (TIA) 12/14/2009 MONIKA GOMEZ MD 331.0 ALZHEIMER DISEASE 12/14/2009 MONIKA GOMEZ MD 401.1 HYPERTENSION, BENIGN ESSENTIAL 12/14/2009 MONIKA GOMEZ MD 435.9 TRANSIENT ISCHEMIC ATTACK (TIA) 12/14/2009 MONIKA GOMEZ MD 331.0 ALZHEIMER DISEASE 12/14/2009 MONIKA GOMEZ MD 401.1 HYPERTENSION, BENIGN ESSENTIAL 12/14/2009 MONIKA GOMEZ MD 435.9 TRANSIENT ISCHEMIC ATTACK (TIA) 12/14/2009 BELL DO ABEL K 331.0 ALZHEIMER DISEASE 12/14/2009 BELL DO, ABEL K 401.1 HYPERTENSION, BENIGN ESSENTIAL 12/14/2009 BELL DO ABEL K 435.9 TRANSIENT ISCHEMIC ATTACK (TIA) 12/14/2009 BELL DO ABEL K 331.0 ALZHEIMER DISEASE 12/14/2009 BELL DO ABEL K 401.1 HYPERTENSION, BENIGN ESSENTIAL 12/14/2009 BELL DO ABEL K 435.9 TRANSIENT ISCHEMIC ATTACK (TIA) 12/14/2009 MONIKA GOMEZ MD 331.0 ALZHEIMER DISEASE 12/14/2009 MONIKA GOMEZ MD 401.1 HYPERTENSION, BENIGN ESSENTIAL 12/14/2009 MONIKA GOMEZ MD 435.9 TRANSIENT ISCHEMIC ATTACK (TIA) 12/14/2009 SHAY HONG MD 331.0 ALZHEIMER DISEASE 12/14/2009 SHAY HONG MD 401.1 HYPERTENSION, BENIGN ESSENTIAL 12/14/2009 SHAY HONG MD 435.9 TRANSIENT ISCHEMIC ATTACK (TIA) 12/14/2009 SHAY HONG MD 331.0 ALZHEIMER DISEASE 12/14/2009 GELY MD, SHAY N 401.1 HYPERTENSION, BENIGN ESSENTIAL 12/14/2009 SHAY HONG MD N 435.9 TRANSIENT ISCHEMIC ATTACK (TIA) 12/14/2009 BELL DO ABEL K 331.0 ALZHEIMER DISEASE 12/14/2009 BELL , ABEL K 401.1 HYPERTENSION, BENIGN ESSENTIAL 12/14/2009 BELL , ABEL K 435.9 TRANSIENT ISCHEMIC ATTACK (TIA) 12/14/2009 SHAY HONG MD N 331.0 ALZHEIMER DISEASE 12/14/2009 SHAY HONG MD N 401.1 HYPERTENSION, BENIGN ESSENTIAL 12/14/2009 SHAY HONG MD N 435.9 TRANSIENT ISCHEMIC ATTACK (TIA) 12/14/2009 SHAY HONG MD N 331.0 ALZHEIMER DISEASE 12/14/2009 SHAY HONG MD N 401.1 HYPERTENSION, BENIGN ESSENTIAL 12/14/2009 SHAY HONG MD N 435.9 TRANSIENT ISCHEMIC ATTACK (TIA) 12/14/2009 SHAY HONG MD N 331.0 ALZHEIMER DISEASE 12/14/2009 SHAY HONG MD N 401.1 HYPERTENSION, BENIGN ESSENTIAL 12/14/2009 SHAY HONG MD N 435.9 TRANSIENT ISCHEMIC ATTACK (TIA) 12/14/2009 FRANKIE ROCHE APRN 331.0 ALZHEIMER DISEASE 12/14/2009 FRANKIE ROCHE APRN 401.1 HYPERTENSION, BENIGN ESSENTIAL 12/14/2009 FRANKIE ROCHE APRN 435.9 TRANSIENT ISCHEMIC ATTACK (TIA) 12/14/2009 SHAY HONG MD N 331.0 ALZHEIMER DISEASE 12/14/2009 SHAY HONG MD N 401.1 HYPERTENSION, BENIGN ESSENTIAL 12/14/2009 SHAY HONG MD N 435.9 TRANSIENT ISCHEMIC ATTACK (TIA) 12/14/2009 SHAY HONG MD N 331.0 ALZHEIMER DISEASE 12/14/2009 SHAY HONG MD N 401.1 HYPERTENSION, BENIGN ESSENTIAL 12/14/2009 SHAY HONG MD N 435.9 TRANSIENT ISCHEMIC ATTACK (TIA) 02/28/2010 KARL FERGUSON MD 564.00 CONSTIPATION 02/28/2010 KARL FERGUSON MD 564.00 CONSTIPATION 02/28/2010 MONIKA GOMEZ MD 564.00 CONSTIPATION 02/28/2010 MONIKA GOMEZ MD 564.00 CONSTIPATION 02/28/2010 564.00 CONSTIPATION 02/28/2010 564.00 CONSTIPATION 02/28/2010 564.00 CONSTIPATION 02/28/2010 564.00 CONSTIPATION 02/28/2010 PATRICIA SIMONS, MONIKA M 564.00 CONSTIPATION 02/28/2010 PATRICIA SIMONS, MONIKA Dejesus 564.00 CONSTIPATION 02/28/2010 BELL DO, ABEL K 564.00 CONSTIPATION 02/28/2010 BELL DO, ABEL K 564.00 CONSTIPATION 02/28/2010 MONIKA GOMEZ MD M 564.00 CONSTIPATION 02/28/2010 GELY SIMONS, SHAY N 564.00 CONSTIPATION 02/28/2010 GELY SIMONS, SHAY N 564.00 CONSTIPATION 02/28/2010 BELL DO, ABEL K 564.00 CONSTIPATION 02/28/2010 GELY SIMONS, SHAY N 564.00 CONSTIPATION 02/28/2010 GELY SIMONS, SHAY N 564.00 CONSTIPATION 02/28/2010 GELY SIMONS, SHAY N 564.00 CONSTIPATION 02/28/2010 FRANKIE ROCHE APRN 564.00 CONSTIPATION 02/28/2010 GELY SIMONS, SHAY N 564.00 CONSTIPATION 02/28/2010 GELY SIMONS, SHAY N 564.00 CONSTIPATION 06/16/2010 KARL FERGUSON MD 601.0 ACUTE PROSTATITIS 06/16/2010 KARL FERGUSON MD 601.0 ACUTE PROSTATITIS 06/16/2010 MONIKA GOMEZ MD 601.0 ACUTE PROSTATITIS 06/16/2010 MONIKA GOMEZ MD 601.0 ACUTE PROSTATITIS 06/16/2010 601.0 ACUTE PROSTATITIS 06/16/2010 601.0 ACUTE PROSTATITIS 06/16/2010 601.0 ACUTE PROSTATITIS 06/16/2010 601.0 ACUTE PROSTATITIS 06/16/2010 MONIKA GOMEZ MD 601.0 ACUTE PROSTATITIS 06/16/2010 MONIKA GOMEZ MD 601.0 ACUTE PROSTATITIS 06/16/2010 BELL DO, ABEL K 601.0 ACUTE PROSTATITIS 06/16/2010 BELL DO, ABEL K 601.0 ACUTE PROSTATITIS 06/16/2010 MONIKA GOMEZ MD 601.0 ACUTE PROSTATITIS 06/16/2010 GELY SIMONS, SHAY N 601.0 ACUTE PROSTATITIS 06/16/2010 SHAY HONG MD N 601.0 ACUTE PROSTATITIS 06/16/2010 ABEL BELL DO 601.0 ACUTE PROSTATITIS 06/16/2010 GELY SIMONS, SHAY N 601.0 ACUTE PROSTATITIS 06/16/2010 SHAY HONG MD 601.0 ACUTE PROSTATITIS 06/16/2010 SHAY HONG MD N 601.0 ACUTE PROSTATITIS 06/16/2010 FRANKIE ROCHE APRN 601.0 ACUTE PROSTATITIS 06/16/2010 SHAY HONG MD 601.0 ACUTE PROSTATITIS 06/16/2010 SHAY HONG MD 601.0 ACUTE PROSTATITIS 08/09/2010 KARL FERGUSON MD V58.69 taking high-risk medication 08/09/2010 KARL FERGUSON MD V58.69 taking high-risk medication 08/09/2010 MONIKA GOMEZ MD V58.69 taking high-risk medication 08/09/2010 MONIKA GOMEZ MD V58.69 taking high-risk medication 08/09/2010 V58.69 taking high- risk medication 08/09/2010 V58.69 taking high- risk medication 08/09/2010 V58.69 taking high- risk medication 08/09/2010 V58.69 taking high- risk medication 08/09/2010 MONIKA GOMEZ MD V58.69 taking high-risk medication 08/09/2010 MONIKA GOMEZ MD V58.69 taking high-risk medication 08/09/2010 ABEL BELL DO V58.69 taking high-risk medication 08/09/2010 ABEL BELL DO V58.69 taking high-risk medication 08/09/2010 MONIKA GOMEZ MD V58.69 taking high-risk medication 08/09/2010 SHAY HONG MD V58.69 taking high-risk medication 08/09/2010 SHAY HONG MD V58.69 taking high-risk medication 08/09/2010 ABEL BELL DO V58.69 taking high-risk medication 08/09/2010 SHAY HONG MD V58.69 taking high-risk medication 08/09/2010 SHAY HONG MD V58.69 taking high-risk medication 08/09/2010 SHAY HONG MD V58.69 taking high-risk medication 08/09/2010 KALEY PANDYA FRANKIE T V58.69 taking high-risk medication 08/09/2010 SHAY HONG MD V58.69 taking high-risk medication 08/09/2010 SHAY HONG MD V58.69 taking high-risk medication 10/06/2010 KARL FERGUSON MD 604.90 Orchitis And Epididymitis Unspecified 10/06/2010 KARL FERGUSON MD 604.90 Orchitis And Epididymitis Unspecified 10/06/2010 MONIKA GOMEZ MD 604.90 Orchitis And Epididymitis Unspecified 10/06/2010 MONIKA GOMEZ MD 604.90 Orchitis And Epididymitis Unspecified 10/06/2010 604.90 Orchitis And Epididymitis Unspecified 10/06/2010 604.90 Orchitis And Epididymitis Unspecified 10/06/2010 604.90 Orchitis And Epididymitis Unspecified 10/06/2010 604.90 Orchitis And Epididymitis Unspecified 10/06/2010 MONIKA GOMEZ MD 604.90 Orchitis And Epididymitis Unspecified 10/06/2010 MONIKA GOMEZ MD 604.90 Orchitis And Epididymitis Unspecified 10/06/2010 ABEL BELL DO 604.90 Orchitis And Epididymitis Unspecified 10/06/2010 ABEL BELL DO K 604.90 Orchitis And Epididymitis Unspecified 10/06/2010 MONIKA GOMEZ MD 604.90 Orchitis And Epididymitis Unspecified 10/06/2010 SHAY HONG MD 604.90 Orchitis And Epididymitis Unspecified 10/06/2010 SHAY HONG MD 604.90 Orchitis And Epididymitis Unspecified 10/06/2010 ABEL BELL DO K 604.90 Orchitis And Epididymitis Unspecified 10/06/2010 SHAY HONG MD 604.90 Orchitis And Epididymitis Unspecified 10/06/2010 SHAY HONG MD N 604.90 Orchitis And Epididymitis Unspecified 10/06/2010 SHAY HONG MD N 604.90 Orchitis And Epididymitis Unspecified 10/06/2010 FRANKIE ROCHE APRN T 604.90 Orchitis And Epididymitis Unspecified 10/06/2010 SHAY HONG MD N 604.90 Orchitis And Epididymitis Unspecified 10/06/2010 SHAY HONG MD N 604.90 Orchitis And Epididymitis Unspecified 01/11/2011 Ot 564.00 01/11/2011 Ot 724.2 05/08/2011 KARL FERGUSON MD 461.9 Sinusitis Acute 05/08/2011 KARL FERGUSON MD 466.0 Bronchitis, Acute 05/08/2011 KARL FERGUSON MD 461.9 Sinusitis Acute 05/08/2011 KARL FERGUSON MD 466.0 Bronchitis, Acute 05/08/2011 MONIKA GOMEZ MD 461.9 Sinusitis Acute 05/08/2011 MONIKA GOMEZ MD 466.0 Bronchitis, Acute 05/08/2011 MONIKA GOMEZ MD 461.9 Sinusitis Acute 05/08/2011 MONIKA GOMEZ MD 466.0 Bronchitis, Acute 05/08/2011 461.9 Sinusitis Acute 05/08/2011 466.0 Bronchitis, Acute 05/08/2011 461.9 Sinusitis Acute 05/08/2011 466.0 Bronchitis, Acute 05/08/2011 461.9 Sinusitis Acute 05/08/2011 466.0 Bronchitis, Acute 05/08/2011 461.9 Sinusitis Acute 05/08/2011 466.0 Bronchitis, Acute 05/08/2011 MONIKA GOMEZ MD 461.9 Sinusitis Acute 05/08/2011 MONIKA GOMEZ MD 466.0 Bronchitis, Acute 05/08/2011 MONIKA GOMEZ MD 461.9 Sinusitis Acute 05/08/2011 MONIKA GOMEZ MD 466.0 Bronchitis, Acute 05/08/2011 BELL DO, ABEL K 461.9 Sinusitis Acute 05/08/2011 BELL DO, ABEL K 466.0 Bronchitis, Acute 05/08/2011 BELL DO, ABEL K 461.9 Sinusitis Acute 05/08/2011 ARABELLA ALBERTS ABEL K 466.0 Bronchitis, Acute 05/08/2011 MONIKA GOMEZ MD 461.9 Sinusitis Acute 05/08/2011 MONIKA GOMEZ MD 466.0 Bronchitis, Acute 05/08/2011 GELY SIMONS, SHAY N 461.9 Sinusitis Acute 05/08/2011 GELY SIMONS, SHAY N 466.0 Bronchitis, Acute 05/08/2011 GELY SIMONS, SHAY N 461.9 Sinusitis Acute 05/08/2011 GELY SIMONS, SHAY N 466.0 Bronchitis, Acute 05/08/2011 BELL MORALESA K 461.9 Sinusitis Acute 05/08/2011 BELL MORALES ALBERTSA K 466.0 Bronchitis, Acute 05/08/2011 GELY SIMONS, SHAY N 461.9 Sinusitis Acute 05/08/2011 GELY SIMONS, SHAY N 466.0 Bronchitis, Acute 05/08/2011 GELY SIMONS, SHAY N 461.9 Sinusitis Acute 05/08/2011 GELY SIMONS, SHAY N 466.0 Bronchitis, Acute 05/08/2011 GELY SIMONS, SHAY N 461.9 Sinusitis Acute 05/08/2011 GELY SIMONS, SHAY N 466.0 Bronchitis, Acute 05/08/2011 FRANKIE ROCHE APRN 461.9 Sinusitis Acute 05/08/2011 FRANKIE ROCHE APRN 466.0 Bronchitis, Acute 05/08/2011 SHAY HONG MD N 461.9 Sinusitis Acute 05/08/2011 SHAY HONG MD N 466.0 Bronchitis, Acute 05/08/2011 GELY SIMONS, SHAY N 461.9 Sinusitis Acute 05/08/2011 GELY SIMONS, SHAY N 466.0 Bronchitis, Acute 08/22/2011 Ot 719.45 JOINT PAIN- PELVIS 08/22/2011 Ot 724.3 SCIATICA 08/22/2011 Ot V58.61 ANTICOAGULANTS,LT,CURRENT USE 08/22/2011 Ot V58.69 OTH MED,LT, CURRENT USE 08/29/2011 KARL FERGUSON MD V76.44 Prostate Cancer Screening 08/29/2011 KARL FERGUSON MD V76.44 Prostate Cancer Screening 08/29/2011 MONIKA GOMEZ MD V76.44 Prostate Cancer Screening 08/29/2011 MONIKA GOMEZ MD V76.44 Prostate Cancer Screening 08/29/2011 V76.44 Prostate Cancer Screening 08/29/2011 V76.44 Prostate Cancer Screening 08/29/2011 V76.44 Prostate Cancer Screening 08/29/2011 V76.44 Prostate Cancer Screening 08/29/2011 MONIKA GOMEZ MD V76.44 Prostate Cancer Screening 08/29/2011 MONIKA GOMEZ MD V76.44 Prostate Cancer Screening 08/29/2011 BELL DO, ABEL K V76.44 Prostate Cancer Screening 08/29/2011 BELL DO, ABEL K V76.44 Prostate Cancer Screening 08/29/2011 MONIKA GOMEZ MD V76.44 Prostate Cancer Screening 08/29/2011 SHAY HONG MD V76.44 Prostate Cancer Screening 08/29/2011 SHAY HONG MD V76.44 Prostate Cancer Screening 08/29/2011 BELL DO, ABEL K V76.44 Prostate Cancer Screening 08/29/2011 SHAY HONG MD N V76.44 Prostate Cancer Screening 08/29/2011 SHAY HONG MD V76.44 Prostate Cancer Screening 08/29/2011 SHAY HONG MD V76.44 Prostate Cancer Screening 08/29/2011 FRANKIE ROCHE APRN V76.44 Prostate Cancer Screening 08/29/2011 SHAY HONG MD V76.44 Prostate Cancer Screening 08/29/2011 SHAY HONG MD V76.44 Prostate Cancer Screening 09/21/2011 MARTY SIMONS, KARL 780.4 lightheadedness 09/21/2011 KARL FERGUSON MD 784.7 EPISTAXIS 09/21/2011 KARL FERGUSON MD 780.4 lightheadedness 09/21/2011 KARL FERGUSON MD 784.7 EPISTAXIS 09/21/2011 MONIKA GOMEZ MD 780.4 lightheadedness 09/21/2011 MONIKA GOMEZ MD 784.7 EPISTAXIS 09/21/2011 MONIKA GOMEZ MD 780.4 lightheadedness 09/21/2011 MONIKA GOMEZ MD 784.7 EPISTAXIS 09/21/2011 780.4 lightheadedness 09/21/2011 784.7 EPISTAXIS 09/21/2011 780.4 lightheadedness 09/21/2011 784.7 EPISTAXIS 09/21/2011 780.4 lightheadedness 09/21/2011 784.7 EPISTAXIS 09/21/2011 780.4 lightheadedness 09/21/2011 784.7 EPISTAXIS 09/21/2011 MONIKA GOMEZ MD 780.4 lightheadedness 09/21/2011 MONIKA GOMEZ MD 784.7 EPISTAXIS 09/21/2011 MONIKA GOMEZ MD 780.4 lightheadedness 09/21/2011 MONIKA GOMEZ MD 784.7 EPISTAXIS 09/21/2011 BELL DO, ABEL K 780.4 lightheadedness 09/21/2011 BELL DO, ABEL K 784.7 EPISTAXIS 09/21/2011 BELL DO, ABEL K 780.4 lightheadedness 09/21/2011 BELL DO, ABEL K 784.7 EPISTAXIS 09/21/2011 MONIKA GOMEZ MD 780.4 lightheadedness 09/21/2011 MONIKA GOMEZ MD 784.7 EPISTAXIS 09/21/2011 SHAY HONG MD 780.4 lightheadedness 09/21/2011 SHAY HONG MD 784.7 EPISTAXIS 09/21/2011 SHAY HONG MD 780.4 lightheadedness 09/21/2011 SHAY HONG MD 784.7 EPISTAXIS 09/21/2011 BELL DO, ABEL K 780.4 lightheadedness 09/21/2011 BELL DO, ABEL K 784.7 EPISTAXIS 09/21/2011 SHAY HONG MD 780.4 lightheadedness 09/21/2011 SHAY HONG MD 784.7 EPISTAXIS 09/21/2011 SHAY HONG MD 780.4 lightheadedness 09/21/2011 SHAY HONG MD 784.7 EPISTAXIS 09/21/2011 SHAY HONG MD 780.4 lightheadedness 09/21/2011 SHAY HONG MD N 784.7 EPISTAXIS 09/21/2011 FRANKIE ROCHE APRN 780.4 lightheadedness 09/21/2011 FRANKIE ROCHE APRN 784.7 EPISTAXIS 09/21/2011 SHAY HONG MD N 780.4 LIGHTHEADEDNESS 09/21/2011 SHAY HONG MD N 784.7 EPISTAXIS 09/21/2011 SHAY HONG MD 780.4 LIGHTHEADEDNESS 09/21/2011 SHAY HONG MD N 784.7 EPISTAXIS 09/23/2011 Ot 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 DISEASE 09/23/2011 Ot 784.7 EPISTAXIS 09/23/2011 Ot V12.51 HX-VENOUS THROMBOSIS EMBOLISM 10/24/2011 Ot 922.1 CONTUSION OF CHEST WALL 10/24/2011 Ot 959.11 OTH INJURY OF CHEST WALL 10/24/2011 Ot E000.8 OTHER EXTERNAL CAUSE STATUS 10/24/2011 Ot E849.0 ACCIDENT IN HOME 10/24/2011 Ot E917.4 STAT OB W/O SUB FALL NEC 02/16/2012 KARL FERGUSON MD V04.81 FLU DX (MEDICARE ONLY) 02/16/2012 KARL FERGUSON MD V04.81 FLU DX (MEDICARE ONLY) 02/16/2012 MONIKA GOMEZ MD V04.81 FLU DX (MEDICARE ONLY) 02/16/2012 MONIKA GOMEZ MD V04.81 FLU DX (MEDICARE ONLY) 02/16/2012 V04.81 FLU DX ( MEDICARE ONLY) 02/16/2012 V04.81 FLU DX ( MEDICARE ONLY) 02/16/2012 V04.81 FLU DX ( MEDICARE ONLY) 02/16/2012 V04.81 FLU DX ( MEDICARE ONLY) 02/16/2012 MONIKA GOMEZ MD V04.81 FLU DX (MEDICARE ONLY) 02/16/2012 MONIKA GOMEZ MD V04.81 FLU DX (MEDICARE ONLY) 02/16/2012 ABEL BELL DO V04.81 FLU DX (MEDICARE ONLY) 02/16/2012 ABEL BELL DO V04.81 FLU DX (MEDICARE ONLY) 02/16/2012 MONIKA GOMEZ MD V04.81 FLU DX (MEDICARE ONLY) 02/16/2012 SHAY HONG MD V04.81 FLU DX (MEDICARE ONLY) 02/16/2012 SHAY HONG MD V04.81 FLU DX (MEDICARE ONLY) 02/16/2012 ABEL BELL DO V04.81 FLU DX (MEDICARE ONLY) 02/16/2012 SHAY HONG MD V04.81 FLU DX (MEDICARE ONLY) 02/16/2012 SHAY HONG MD V04.81 FLU DX (MEDICARE ONLY) 02/16/2012 SHAY HONG MD V04.81 FLU DX (MEDICARE ONLY) 02/16/2012 FRANKIE ROCHE APRN V04.81 FLU DX (MEDICARE ONLY) 02/16/2012 SHAY HONG MD V04.81 FLU DX (MEDICARE ONLY) 02/16/2012 SHAY HONG MD V04.81 FLU DX (MEDICARE ONLY) 03/18/2012 Ot 300.00 ANXIETY STATE NOS 03/18/2012 Ot 786.50 CHEST PAIN NOS 05/30/2012 Ot 562.10 DIVERTICULOSIS COLON (W/O MENT OF HEMORR 05/30/2012 Ot 564.00 UNSPEC CONSTIPATION 05/30/2012 Ot 569.0 ANAL RECTAL POLYP 05/30/2012 Ot 787.99 OTHER GI SYSTEM SYMPTOMS 06/06/2012 Ot 550.90 UNILAT INGUINAL HERNIA 08/19/2012 792.1 NONSPECIFIC ABNORMAL FINDINGS IN STOOL CONTENTS 08/19/2012 792.1 NONSPECIFIC ABNORMAL FINDINGS IN STOOL CONTENTS 08/19/2012 792.1 NONSPECIFIC ABNORMAL FINDINGS IN STOOL CONTENTS 08/19/2012 792.1 NONSPECIFIC ABNORMAL FINDINGS IN STOOL CONTENTS 08/19/2012 MONIKA GOMEZ MD 792.1 NONSPECIFIC ABNORMAL FINDINGS IN STOOL CONTENTS 08/19/2012 MONIKA GOMEZ MD 792.1 NONSPECIFIC ABNORMAL FINDINGS IN STOOL CONTENTS 08/19/2012 ABEL BELL DO 792.1 NONSPECIFIC ABNORMAL FINDINGS IN STOOL CONTENTS 08/19/2012 ABEL BELL DO 792.1 NONSPECIFIC ABNORMAL FINDINGS IN STOOL CONTENTS 08/19/2012 MONIKA GOMEZ MD 792.1 NONSPECIFIC ABNORMAL FINDINGS IN STOOL CONTENTS 08/19/2012 SHAY HONG MD 792.1 NONSPECIFIC ABNORMAL FINDINGS IN STOOL CONTENTS 08/19/2012 SHAY HONG MD N 792.1 NONSPECIFIC ABNORMAL FINDINGS IN STOOL CONTENTS 08/19/2012 MORALES BELL DOA K 792.1 NONSPECIFIC ABNORMAL FINDINGS IN STOOL CONTENTS 08/19/2012 SHAY HONG MD N 792.1 NONSPECIFIC ABNORMAL FINDINGS IN STOOL CONTENTS 08/19/2012 SHAY HONG MD N 792.1 NONSPECIFIC ABNORMAL FINDINGS IN STOOL CONTENTS 08/19/2012 SHAY HONG MD 792.1 NONSPECIFIC ABNORMAL FINDINGS IN STOOL CONTENTS 08/19/2012 FRANKIE ROCHE APRN 792.1 NONSPECIFIC ABNORMAL FINDINGS IN STOOL CONTENTS 08/19/2012 SHAY HONG MD N 792.1 NONSPECIFIC ABNORMAL FINDINGS IN STOOL CONTENTS 08/19/2012 SHAY HONG MD 792.1 NONSPECIFIC ABNORMAL FINDINGS IN STOOL CONTENTS 11/12/2012 272.4 OTHER AND UNSPECIFIED HYPERLIPIDEMIA 11/12/2012 MONIKA GOMEZ MD 272.4 OTHER AND UNSPECIFIED HYPERLIPIDEMIA 11/12/2012 MONIKA GOMEZ MD 272.4 OTHER AND UNSPECIFIED HYPERLIPIDEMIA 11/12/2012 MORALES BELL DOA K 272.4 OTHER AND UNSPECIFIED HYPERLIPIDEMIA 11/12/2012 ARABELLA ALBERTS ABEL K 272.4 OTHER AND UNSPECIFIED HYPERLIPIDEMIA 11/12/2012 MONIKA GOMEZ MD 272.4 OTHER AND UNSPECIFIED HYPERLIPIDEMIA 11/12/2012 SHAY HONG MD N 272.4 OTHER AND UNSPECIFIED HYPERLIPIDEMIA 11/12/2012 SHAY HONG MD N 272.4 OTHER AND UNSPECIFIED HYPERLIPIDEMIA 11/12/2012 MORALES BELL DOA K 272.4 OTHER AND UNSPECIFIED HYPERLIPIDEMIA 11/12/2012 SHAY HONG MD N 272.4 OTHER AND UNSPECIFIED HYPERLIPIDEMIA 11/12/2012 SHAY HONG MD N 272.4 OTHER AND UNSPECIFIED HYPERLIPIDEMIA 11/12/2012 SHAY HONG MD N 272.4 OTHER AND UNSPECIFIED HYPERLIPIDEMIA 11/12/2012 FRANKIE ROCHE APRN 272.4 OTHER AND UNSPECIFIED HYPERLIPIDEMIA 11/12/2012 SHAY HONG MD N 272.4 OTHER AND UNSPECIFIED HYPERLIPIDEMIA 11/12/2012 SHAY HONG MD N 272.4 OTHER AND UNSPECIFIED HYPERLIPIDEMIA 01/01/2013 MONIKA GOMEZ MD 780.52 INSOMNIA UNSPECIFIED 01/01/2013 MONIKA GOMEZ MD 780.52 INSOMNIA UNSPECIFIED 01/01/2013 ABEL BELL DO 780.52 INSOMNIA UNSPECIFIED 01/01/2013 ABEL BELL DO 780.52 INSOMNIA UNSPECIFIED 01/01/2013 MONIKA GOMEZ MD 780.52 INSOMNIA UNSPECIFIED 01/01/2013 SHAY HONG MD 780.52 INSOMNIA UNSPECIFIED 01/01/2013 SHAY HONG MD 780.52 INSOMNIA UNSPECIFIED 01/01/2013 ABEL BELL DO 780.52 INSOMNIA UNSPECIFIED 01/01/2013 SHAY HONG MD 780.52 INSOMNIA UNSPECIFIED 01/01/2013 SHAY HONG MD 780.52 INSOMNIA UNSPECIFIED 01/01/2013 SHAY HONG MD 780.52 INSOMNIA UNSPECIFIED 01/01/2013 FRANKIE ROCHE APRN 780.52 INSOMNIA UNSPECIFIED 01/01/2013 SHAY HONG MD 780.52 INSOMNIA UNSPECIFIED 01/01/2013 SHAY HONG MD 780.52 INSOMNIA UNSPECIFIED 04/06/2013 DAYDAY RHODES Ot 883.0 OPEN WOUND OF FINGER 04/06/2013 DAYDAY RHODES Ot E000.8 OTHER EXTERNAL CAUSE STATUS 04/06/2013 DAYDAY RHODES Ot E015.0 ACTIVITIES INVOLVING FOOD PREPARATION AN 04/06/2013 DAYDAY RHODES Ot E849.0 ACCIDENT IN HOME 04/06/2013 DAYDAY RHODSE Ot E920.4 ACCID-OTHER HAND TOOLS 04/06/2013 DAYDAY RHODES Ot V06.1 [id number], COMBINED [ 04/16/2013 KALINA SIMONS, YADI Howard Ot V58.32 ENCOUNTER FOR REMOVAL OF SUTURES 07/15/2013 MONIKA GOMEZ MD 300.00 anxiety 07/15/2013 MONIKA GOMEZ MD 787.3 BLOATING 07/15/2013 SHAY HONG MD 300.00 anxiety 07/15/2013 SHAY HONG MD 787.3 BLOATING 07/15/2013 SHAY HONG MD 300.00 anxiety 07/15/2013 SHAY HONG MD 787.3 BLOATING 07/15/2013 BELL DO, ABEL K 300.00 anxiety 07/15/2013 BELL DO, ABEL K 787.3 BLOATING 07/15/2013 SHAY HONG MD N 300.00 anxiety 07/15/2013 SHAY HONG MD N 787.3 BLOATING 07/15/2013 SHAY HONG MD N 300.00 anxiety 07/15/2013 SHAY HONG MD N 787.3 BLOATING 07/15/2013 SHAY HONG MD N 300.00 anxiety 07/15/2013 SHAY HONG MD N 787.3 BLOATING 07/15/2013 FRANKIE ROCHE APRN 300.00 anxiety 07/15/2013 FRANKIE ROCHE APRN 787.3 BLOATING 07/15/2013 SHAY HONG MD N 300.00 anxiety 07/15/2013 SHAY HONG MD N 787.3 BLOATING 07/15/2013 SHAY HONG MD N 300.00 anxiety 07/15/2013 SHAY HONG MD 787.3 BLOATING 08/23/2013 FEI OTTO APRN Ot 786.50 CHEST PAIN NOS 08/23/2013 FEI OTTO APRN Ot 789.09 ABDOMINAL PAIN, OTHER SPECIFIED SITE 02/01/2014 FRANKIE JOHN DO Ot 724.3 SCIATICA 02/01/2014 FRANKIE JOHN DO Ot 789.00 ABDOMINAL PAIN, UNSPECIFIED SITE 02/03/2014 SHAY HONG MD N 593.2 CYST OF KIDNEY ACQUIRED 02/03/2014 SHAY HONG MD N 593.2 CYST OF KIDNEY ACQUIRED 02/03/2014 SHAY HONG MD N 593.2 CYST OF KIDNEY ACQUIRED 02/03/2014 FRANKIE ROCHE APRN 593.2 CYST OF KIDNEY ACQUIRED 02/03/2014 SHAY HONG MD N 593.2 CYST OF KIDNEY ACQUIRED 02/03/2014 SHAY HONG MD N 593.2 CYST OF KIDNEY ACQUIRED 04/15/2014 FRANKIE ROCHE APRN 455.6 HEMORRHOIDS NOS 04/15/2014 SHAY HONG MD N 455.6 HEMORRHOIDS NOS 04/15/2014 GELY MD, SHAY N 455.6 HEMORRHOIDS NOS 05/26/2014 SHAY HONG MD N 799.22 IRRITABILITY 05/26/2014 SHAY HONG MD 799.22 IRRITABILITY 06/09/2014 RANDI HUNTER MD Ot 473.9 CHRONIC SINUSITIS NOS 06/09/2014 RANDI HUNTER MD Ot 786.39 OTHER HEMOPTYSIS 06/16/2014 SHAY HONG MD N 461.9 SINUSITIS ACUTE 01/15/2015 FEI OTTO [employer] SPECIALIST Ot 294.20 DEMENTIA, UNSPECIFIED, WITHOUT BEHAVIORA 01/15/2015 FEI OTTO [employer] SPECIALIST Ot 784.51 DYSARTHRIA 01/15/2015 FEI OTTO APRN Ot 784.59 OTHER SPEECH DISTURBANCE 01/15/2015 FEI OTTO APRN Ot 791.9 ABN URINE FINDINGS NEC 01/15/2015 FEI OTTO APRN Ot V58.65 LONG-TERM(CURRENT)USE OF STEROIDS 01/15/2015 FEI OTTO APRN Ot V58.69 OT MED,LT,CURRENT USE 04/21/2015 SHAY HONG MD, Ot E78.5 HYPERLIPIDEMIA, UNSPECIFIED 04/21/2015 SHAY HONG MD Ot F02.80 DEMENTIA IN OT DISEASES CLASSD ELSWHR W 04/21/2015 SHAY HONG MD Ot F41.9 ANXIETY DISORDER, UNSPECIFIED 04/21/2015 SHAY HONG MD Ot G30.9 ALZHEIMER'S DISEASE, UNSPECIFIED 04/21/2015 SHAY HONG MD Ot G45.9 TRANSIENT CEREBRAL ISCHEMIC ATTACK, UNSP 04/21/2015 SHAY HONG MD Ot I10 ESSENTIAL (PRIMARY) HYPERTENSION 04/21/2015 SHAY HONG MD Ot I26.99 OTHER PULMONARY EMBOLISM WITHOUT ACUTE C 04/21/2015 SHAY HONG MD Ot K21.9 GASTRO-ESOPHAGEAL REFLUX DISEASE WITHOUT 04/21/2015 SHAY HONG MD Ot N40.0 ENLARGED PROSTATE WITHOUT LOWER URINARY 04/21/2015 SHAY HONG MD Ot Z87.891 PERSONAL HISTORY OF NICOTINE DEPENDENCE 04/21/2015 SHAY HONG MD Ot E78.5 04/21/2015 SHAY HONG MD Ot F02.80 04/21/2015 GELY SIMONS, SHAY Llamas Ot F41.9 04/21/2015 GELY SIMONS, SHAY Llamas Ot G30.9 04/21/2015 EGLY SIMONS, SHAY Llamas Ot G45.9 04/21/2015 GELY SIMONS, SHAY Llamas Ot I10 04/21/2015 SHAY HONG MD Ot I26.99 04/21/2015 GELY SIMONS, SHAY Llamas Ot K21.9 04/21/2015 GELY SIMONS, SHAY Llamas Ot N40.0 04/21/2015 GELY SIMONS, SHAY Llamas Ot Z87.891 08/19/2015 Ot N43.3 HYDROCELE, UNSPECIFIED 08/19/2015 Ot Z01.812 ENCOUNTER FOR PREPROCEDURAL LABORATORY E 08/19/2015 Ot Z11.2 ENCOUNTER FOR SCREENING FOR OTHER BACTER 08/25/2015 MAICO SIMONS, JAELYN Neely Ot N43.3 HYDROCELE, UNSPECIFIED 08/26/2015 JAELYN NINA MD Ot N43.3 08/28/2015 ELSA SIMONS, RANDI Bautista Ot G89.18 OTHER ACUTE POSTPROCEDURAL PAIN 08/28/2015 ELSA SIMONS, RANDI Bautista Ot Z87.891 PERSONAL HISTORY OF NICOTINE DEPENDENCE 08/28/2015 Ot 788.43 08/28/2015 Ot 788.31 08/28/2015 Ot 791.9 08/28/2015 Ot 331.0 08/28/2015 Ot 564.00 08/28/2015 Ot 780.4 08/28/2015 Ot V58.69 08/28/2015 Ot V58.83 08/28/2015 Ot 397.0 08/28/2015 Ot 424.0 08/28/2015 Ot 429.3 08/28/2015 Ot 786.09 08/28/2015 Ot 786.50 08/28/2015 Ot 414.00 08/28/2015 Ot 786.09 08/28/2015 Ot 550.90 08/28/2015 Ot V72.63 08/28/2015 Ot V74.8 08/28/2015 Ot V72.84 08/28/2015 STAN SIMONS, Kirill NARAYAN Ot 603.9 08/28/2015 SHAY HONG MD Ot 593.9 08/28/2015 SHAY HONG MD Ot 753.10 08/30/2015 ELSA SIMONS, RANDI Bautista Ot G89.18 08/30/2015 RANDI HUNTER MD Ot Z87.891 08/31/2015 MAICO SIMONS, JAELYN Chin Ot N43.3 01/21/2016 KALINA SIMONS, YADI Howard Ot M79.661 PAIN IN RIGHT LOWER LEG 01/21/2016 KALINA SIMONS, YADI Howard Ot Z53.21 PROC/TRTMT NOT CRD OUT D/T PT LV BEF SEE 02/01/2016 SHAY HONG MD Ot I73.9 PERIPHERAL VASCULAR DISEASE, UNSPECIFIED 02/01/2016 SHAY HONG MD Ot I73.9 PERIPHERAL VASCULAR DISEASE, UNSPECIFIED 02/01/2016 SHAY HONG MD Ot R25.2 CRAMP AND SPASM 02/16/2016 SHAY HONG MD Ot M79.604 PAIN IN RIGHT LEG 02/17/2016 SHAY HONG MD Ot M79.604 PAIN IN RIGHT LEG 02/23/2016 SHAY HONG MD Ot I73.9 PERIPHERAL VASCULAR DISEASE, UNSPECIFIED 02/23/2016 SHAY HONG MD Ot R25.2 CRAMP AND SPASM 02/25/2016 SHAY HONG MD Ot I73.9 PERIPHERAL VASCULAR DISEASE, UNSPECIFIED 02/25/2016 SHAY HONG MD Ot R25.2 CRAMP AND SPASM 10/13/2016 Ot 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 DISEASE 10/13/2016 Ot 564.00 UNSPEC CONSTIPATION 10/13/2016 Ot 780.4 DIZZINESS AND GIDDINESS 10/13/2016 Ot V58.69 OTH MED,LT, CURRENT USE 10/13/2016 Ot V58.83 ENCOUNTER FOR THERAPEUTIC DRUG MONITORIN 10/13/2016 Ot 397.0 TRICUSPID VALVE DISEASE 10/13/2016 Ot 424.0 MITRAL VALVE DISORDER 10/13/2016 Ot 429.3 CARDIOMEGALY 10/13/2016 Ot 786.09 RESPIRATORY ABNORM NEC 10/13/2016 Ot 786.50 CHEST PAIN NOS 10/13/2016 Ot 414.00 CORON ATHEROSCLER NOS TYPE VESSEL, NATIV 10/13/2016 Ot 786.09 RESPIRATORY ABNORM NEC 10/13/2016 Ot 550.90 UNILAT INGUINAL HERNIA 10/13/2016 Ot V72.63 PRE- PROCEDURAL LABORATORY EXAMINATION 10/13/2016 Ot V74.8 SCREEN- BACTERIAL DIS NEC 10/13/2016 Ot V72.84 EXAM PRE- OPERATIVE NOS 10/13/2016 STAN SIMONS, Kirill NARAYAN Ot 603.9 HYDROCELE NOS 10/13/2016 GELY SIMONS, SHAY Llamas Ot 593.9 RENAL URETERAL DIS NOS 10/13/2016 SHAY HONG MD Ot 753.10 CYSTIC KIDNEY DISEASE, UNSPECIFIED 10/13/2016 KALINA SIMONS, YADI Howard Ot M79.661 PAIN IN RIGHT LOWER LEG 10/13/2016 KALINA SIMONS, YADI Howard Ot Z53.21 PROC/TRTMT NOT CRD OUT D/T PT LV BEF SEE 10/13/2016 SHAY HONG MD Ot M79.604 PAIN IN RIGHT LEG 10/13/2016 SHAY HONG MD Ot I73.9 PERIPHERAL VASCULAR DISEASE, UNSPECIFIED 10/13/2016 SHAY HONG MD Ot R25.2 CRAMP AND SPASM 10/13/2016 FEI OTTO APRN Ot 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 10/13/2016 FEI OTTO APRN Ot R47.1 DYSARTHRIA AND ANARTHRIA 10/13/2016 FEI OTTO APRN Ot R47.81 SLURRED SPEECH 10/13/2016 FEI OTTO APRN Ot R53.83 OTHER FATIGUE 10/13/2016 FEI OTTO APRN Ot Z79.01 ASSISTED (CURRENT) USE OF ANTICOAGULANT 10/13/2016 FEI OTTO APRN Ot Z79.899 OTHER EMERGENCY DEPARTMENT CLINICIAN (CURRENT) DRUG THERAPY 10/13/2016 Ot 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 DISEASE 10/13/2016 Ot 564.00 UNSPEC CONSTIPATION 10/13/2016 Ot 780.4 DIZZINESS AND GIDDINESS 10/13/2016 Ot V58.69 OTH MED,LT, CURRENT USE 10/13/2016 Ot V58.83 ENCOUNTER FOR THERAPEUTIC DRUG MONITORIN 10/13/2016 Ot 397.0 TRICUSPID VALVE DISEASE 10/13/2016 Ot 424.0 MITRAL VALVE DISORDER 10/13/2016 Ot 429.3 CARDIOMEGALY 10/13/2016 Ot 786.09 RESPIRATORY ABNORM NEC 10/13/2016 Ot 786.50 CHEST PAIN NOS 10/13/2016 Ot 414.00 CORON ATHEROSCLER NOS TYPE VESSEL, NATIV 10/13/2016 Ot 786.09 RESPIRATORY ABNORM NEC 10/13/2016 Ot 550.90 UNILAT INGUINAL HERNIA 10/13/2016 Ot V72.63 PRE- PROCEDURAL LABORATORY EXAMINATION 10/13/2016 Ot V74.8 SCREEN- BACTERIAL DIS NEC 10/13/2016 Ot V72.84 EXAM PRE- OPERATIVE NOS 10/13/2016 STAN SIMONS, Kirill NARAYAN Ot 603.9 HYDROCELE NOS 10/13/2016 GELY SIMONS, SHAY Llamas Ot 593.9 RENAL URETERAL DIS NOS 10/13/2016 GELY SIMONS, SHAY Llamas Ot 753.10 CYSTIC KIDNEY DISEASE, UNSPECIFIED 10/13/2016 KALINA SIMONS, YADI Howard Ot M79.661 PAIN IN RIGHT LOWER LEG 10/13/2016 KALINA SIMONS, YADI Howard Ot Z53.21 PROC/TRTMT NOT CRD OUT D/T PT LV BEF SEE 10/13/2016 SHAY HONG MD Ot M79.604 PAIN IN RIGHT LEG 10/13/2016 SHAY HONG MD Ot I73.9 PERIPHERAL VASCULAR DISEASE, UNSPECIFIED 10/13/2016 SHAY HONG MD Ot R25.2 CRAMP AND SPASM 10/19/2016 FEI OTTO APRN Ot 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 10/19/2016 FEI OTTO APRN Ot R47.1 DYSARTHRIA AND ANARTHRIA 10/19/2016 FEI OTTO APRN Ot R47.81 SLURRED SPEECH 10/19/2016 FEI OTTO APRN Ot R53.83 OTHER FATIGUE 10/19/2016 FEI OTTO APRN Ot Z79.01 ASSISTED (CURRENT) USE OF ANTICOAGULANT 10/19/2016 FEI OTTO APRN Ot Z79.899 OTHER EMERGENCY DEPARTMENT CLINICIAN (CURRENT) DRUG THERAPY 03/24/2017 MATT PURVIS DO Ot E78.00 PURE HYPERCHOLESTEROLEMIA, UNSPECIFIED 03/24/2017 MATT PURVIS DO Ot F03.90 UNSPECIFIED DEMENTIA WITHOUT BEHAVIORAL 03/24/2017 MATT PURVIS DO Ot F32.9 MAJOR DEPRESSIVE DISORDER, SINGLE EPISOD 03/24/2017 MATT PURVIS DO Ot F41.9 ANXIETY DISORDER, UNSPECIFIED 03/24/2017 MATT PURVIS DO Ot G47.9 SLEEP DISORDER, UNSPECIFIED 03/24/2017 MATT PURVIS DO Ot I10 ESSENTIAL (PRIMARY) HYPERTENSION 03/24/2017 YANIV ALBERTS MATT Akhtar Ot M54.5 LOW BACK PAIN 03/24/2017 MATT PURVIS DO Ot N28.1 CYST OF KIDNEY, ACQUIRED 03/24/2017 MATT PURVIS DO Ot R31.29 OTHER MICROSCOPIC HEMATURIA 03/24/2017 YANIV ALBERTS MTAT Akhtar Ot Z86.711 PERSONAL HISTORY OF PULMONARY EMBOLISM 03/24/2017 YANIV ALBERTS MATT Akhtar Ot Z86.718 PERSONAL HISTORY OF OTHER VENOUS THROMBO 03/24/2017 YANIV ALBERTS MATT Akhtar Ot Z86.73 PRSNL HX OF TIA (TIA), AND CEREB INFRC W 03/24/2017 YANIV ALBERTS MATT Akhtar Ot Z87.438 PERSONAL HISTORY OF OTHER DISEASES OF [place] 03/24/2017 Ot 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 DISEASE 03/24/2017 Ot 564.00 UNSPEC CONSTIPATION 03/24/2017 Ot 780.4 DIZZINESS AND GIDDINESS 03/24/2017 Ot V58.69 OTH MED,LT, CURRENT USE 03/24/2017 Ot V58.83 ENCOUNTER FOR THERAPEUTIC DRUG MONITORIN 03/24/2017 Ot 397.0 TRICUSPID VALVE DISEASE 03/24/2017 Ot 424.0 MITRAL VALVE DISORDER 03/24/2017 Ot 429.3 CARDIOMEGALY 03/24/2017 Ot 786.09 RESPIRATORY ABNORM NEC 03/24/2017 Ot 786.50 CHEST PAIN NOS 03/24/2017 Ot 414.00 CORON ATHEROSCLER NOS TYPE VESSEL, NATIV 03/24/2017 Ot 786.09 RESPIRATORY ABNORM NEC 03/24/2017 Ot 550.90 UNILAT INGUINAL HERNIA 03/24/2017 Ot V72.63 PRE- PROCEDURAL LABORATORY EXAMINATION 03/24/2017 Ot V74.8 SCREEN- BACTERIAL DIS NEC 03/24/2017 Ot V72.84 EXAM PRE- OPERATIVE NOS 03/24/2017 STAN SIMONS, Kirill NARAYAN Ot 603.9 HYDROCELE NOS 03/24/2017 GELY SIMONS, SHAY Llamas Ot 593.9 RENAL URETERAL DIS NOS 03/24/2017 SHAY HONG MD Ot 753.10 CYSTIC KIDNEY DISEASE, UNSPECIFIED 03/24/2017 KALINA SIMONS, YADI Howard Ot M79.661 PAIN IN RIGHT LOWER LEG 03/24/2017 KALINA SIMONS, YADI Howard Ot Z53.21 PROC/TRTMT NOT CRD OUT D/T PT LV BEF SEE 03/24/2017 SHAY HONG MD, Ot M79.604 PAIN IN RIGHT LEG 03/24/2017 SHAY HONG MD, Ot I73.9 PERIPHERAL VASCULAR DISEASE, UNSPECIFIED 03/24/2017 SHAY HONG MD, Ot R25.2 CRAMP AND SPASM 03/26/2017 YANIV NENA ALBERTSA Giovana Ot E78.00 PURE HYPERCHOLESTEROLEMIA, UNSPECIFIED 03/26/2017 YANIV DO MATT K Ot F03.90 UNSPECIFIED DEMENTIA WITHOUT BEHAVIORAL 03/26/2017 YANIV DO MATT K Ot F32.9 MAJOR DEPRESSIVE DISORDER, SINGLE EPISOD 03/26/2017 YANIV DO MATT K Ot F41.9 ANXIETY DISORDER, UNSPECIFIED 03/26/2017 YANIV DO MATT K Ot G47.9 SLEEP DISORDER, UNSPECIFIED 03/26/2017 YANIV DO MATT K Ot I10 ESSENTIAL (PRIMARY) HYPERTENSION 03/26/2017 YANIV NENA ALBERTSA K Ot M54.5 LOW BACK PAIN 03/26/2017 YANIV NENA ALBERTSA K Ot N28.1 CYST OF KIDNEY, ACQUIRED 03/26/2017 YANIV DO MATT K Ot R31.29 OTHER MICROSCOPIC HEMATURIA 03/26/2017 YANIV DO MATT K Ot Z86.711 PERSONAL HISTORY OF PULMONARY EMBOLISM 03/26/2017 NENA PURVIS DOA Giovana Ot Z86.718 PERSONAL HISTORY OF OTHER VENOUS THROMBO 03/26/2017 YANIV NENA ALBERTSA K Ot Z86.73 PRSNL HX OF TIA (TIA), AND CEREB INFRC W 03/26/2017 NENA PURVIS DOA Giovana Ot Z87.438 PERSONAL HISTORY OF OTHER DISEASES OF [place] 05/08/2017 ANN SIMONS, JESS Roy Ot E78.2 MIXED HYPERLIPIDEMIA 05/08/2017 ANN SIMONS, JESS Roy Ot I10 ESSENTIAL (PRIMARY) HYPERTENSION 05/08/2017 ANN SIMONS, JESS Roy Ot J44.9 CHRONIC OBSTRUCTIVE PULMONARY DISEASE, U 05/08/2017 ANN SIMONS, JESS Roy Ot R06.00 DYSPNEA, UNSPECIFIED 05/08/2017 ANN SIMONS, JESS Roy Ot R07.9 CHEST PAIN, UNSPECIFIED 06/01/2017 BO BALTAZAR Ot E78.2 MIXED HYPERLIPIDEMIA 06/01/2017 CALISTA DENNIS BO K Ot I10 ESSENTIAL (PRIMARY) HYPERTENSION 06/01/2017 CALISTA DENNIS BO K Ot R06.00 DYSPNEA, UNSPECIFIED 06/01/2017 CALISTA DENNIS BO K Ot R07.89 OTHER CHEST PAIN 06/07/2017 BO BALTAZAR Ot E78.2 MIXED HYPERLIPIDEMIA 06/07/2017 BO BALTAZAR Ot I10 ESSENTIAL (PRIMARY) HYPERTENSION 06/07/2017 BO BALTAZAR Ot R06.00 DYSPNEA, UNSPECIFIED 06/07/2017 CALISTA DENNIS BO K Ot R07.89 OTHER CHEST PAIN 06/12/2017 Ot 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 DISEASE 06/12/2017 Ot 564.00 UNSPEC CONSTIPATION 06/12/2017 Ot 780.4 DIZZINESS AND GIDDINESS 06/12/2017 Ot V58.69 OTH MED,LT, CURRENT USE 06/12/2017 Ot V58.83 ENCOUNTER FOR THERAPEUTIC DRUG MONITORIN 06/12/2017 Ot 397.0 TRICUSPID VALVE DISEASE 06/12/2017 Ot 424.0 MITRAL VALVE DISORDER 06/12/2017 Ot 429.3 CARDIOMEGALY 06/12/2017 Ot 786.09 RESPIRATORY ABNORM NEC 06/12/2017 Ot 786.50 CHEST PAIN NOS 06/12/2017 Ot 414.00 CORON ATHEROSCLER NOS TYPE VESSEL, NATIV 06/12/2017 Ot 786.09 RESPIRATORY ABNORM NEC 06/12/2017 Ot 550.90 UNILAT INGUINAL HERNIA 06/12/2017 Ot V72.63 PRE- PROCEDURAL LABORATORY EXAMINATION 06/12/2017 Ot V74.8 SCREEN- BACTERIAL DIS NEC 06/12/2017 Ot V72.84 EXAM PRE- OPERATIVE NOS 06/12/2017 STAN SIMONS, Kirill NARAYAN Ot 603.9 HYDROCELE NOS 06/12/2017 GELY SIMONS, SHAY Llamas Ot 593.9 RENAL URETERAL DIS NOS 06/12/2017 GELY SIMONS, SHAY Llamas Ot 753.10 CYSTIC KIDNEY DISEASE, UNSPECIFIED 06/12/2017 KALINA SIMONS, YADI Howard Ot M79.661 PAIN IN RIGHT LOWER LEG 06/12/2017 KALINA SIMONS, YADI Howard Ot Z53.21 PROC/TRTMT NOT CRD OUT D/T PT LV BEF SEE 06/12/2017 SHAY HONG MD, Ot M79.604 PAIN IN RIGHT LEG 06/12/2017 SHAY HONG MD Ot I73.9 PERIPHERAL VASCULAR DISEASE, UNSPECIFIED 06/12/2017 SHAY HONG MD Ot R25.2 CRAMP AND SPASM 06/12/2017 BO BALTAZAR Ot E78.2 MIXED HYPERLIPIDEMIA 06/12/2017 BO BALTAZAR Ot I10 ESSENTIAL (PRIMARY) HYPERTENSION 06/12/2017 BO BALTAZAR Ot R06.00 DYSPNEA, UNSPECIFIED 06/12/2017 BO BALTAZAR Ot R07.89 OTHER CHEST PAIN 06/12/2017 ANN SIMONS, JESS Roy Ot E78.2 MIXED HYPERLIPIDEMIA 06/12/2017 JESS EL MD Ot I10 ESSENTIAL (PRIMARY) HYPERTENSION 06/12/2017 JESS EL MD Ot J44.9 CHRONIC OBSTRUCTIVE PULMONARY DISEASE, U 06/12/2017 JESS EL MD Ot R06.00 DYSPNEA, UNSPECIFIED 06/12/2017 JESS EL MD Ot R07.9 CHEST PAIN, UNSPECIFIED 06/19/2017 ANIABL PHILLIPS APRN Ot F41.9 ANXIETY DISORDER, UNSPECIFIED 06/19/2017 ANIBLA PHILLIPS APRN Ot G47.10 HYPERSOMNIA, UNSPECIFIED 06/19/2017 ANIBAL PHILLIPS APRN Ot J44.9 CHRONIC OBSTRUCTIVE PULMONARY DISEASE, U 06/19/2017 ANIBAL PHILLIPS APRN Ot Z79.899 OTHER EMERGENCY DEPARTMENT CLINICIAN (CURRENT) DRUG THERAPY 06/20/2017 ANIBAL PHILLIPS APRN Ot F41.9 ANXIETY DISORDER, UNSPECIFIED 06/20/2017 ANIBAL PHILLIPS APRN Ot G47.10 HYPERSOMNIA, UNSPECIFIED 06/20/2017 ANIBAL PHILLIPS APRN Ot J44.9 CHRONIC OBSTRUCTIVE PULMONARY DISEASE, U 06/20/2017 ANIBAL PHILLIPS APRN Ot Z79.899 OTHER ASSISTED (CURRENT) DRUG THERAPY 06/23/2017 CANDIS SHORE MD Ot E78.00 PURE HYPERCHOLESTEROLEMIA, UNSPECIFIED 06/23/2017 CANDIS SHORE MD Ot F03.90 UNSPECIFIED DEMENTIA WITHOUT BEHAVIORAL 06/23/2017 CANDIS SHORE MD Ot F32.9 MAJOR DEPRESSIVE DISORDER, SINGLE EPISOD 06/23/2017 CANDIS SHORE MD Ot F41.9 ANXIETY DISORDER, UNSPECIFIED 06/23/2017 CANDIS SHORE MD Ot I10 ESSENTIAL (PRIMARY) HYPERTENSION 06/23/2017 CANDIS SHORE MD Ot N39.0 URINARY TRACT INFECTION, SITE NOT SPECIF 06/23/2017 CANDIS SHORE MD Ot N40.0 BENIGN PROSTATIC HYPERPLASIA WITHOUT LOW 06/23/2017 CANDIS SHORE MD Ot R30.0 DYSURIA 06/23/2017 CANDIS SHORE MD Ot Z82.49 FAMILY HX OF ISCHEM HEART DIS AND OTH DI 06/23/2017 CANDIS SHORE MD Ot Z86.718 PERSONAL HISTORY OF OTHER VENOUS THROMBO 06/23/2017 CANDIS SHORE MD Ot Z86.73 PRSNL HX OF TIA (TIA), AND CEREB INFRC W 06/23/2017 CANDIS SHORE MD Ot Z87.19 PERSONAL HISTORY OF OTHER DISEASES OF TH 06/23/2017 CANDIS SHORE MD Ot Z87.440 PERSONAL HISTORY OF URINARY (TRACT) INFE 06/23/2017 CANDIS SHORE MD Ot Z87.448 PERSONAL HISTORY OF OTHER DISEASES OF UR 06/23/2017 CANDIS SHORE MD Ot Z88.5 ALLERGY STATUS TO NARCOTIC AGENT STATUS 06/23/2017 CANDIS SHORE MD Ot Z88.8 ALLERGY STATUS TO OTH DRUG/MEDS/BIOL SUB 06/23/2017 CANDIS SHORE MD Ot Z98.890 OTHER SPECIFIED POSTPROCEDURAL STATES 06/25/2017 CANDIS SHORE MD Ot E78.00 PURE HYPERCHOLESTEROLEMIA, UNSPECIFIED 06/25/2017 CANDIS SHORE MD Ot F03.90 UNSPECIFIED DEMENTIA WITHOUT BEHAVIORAL 06/25/2017 CANDIS SHORE MD Ot F32.9 MAJOR DEPRESSIVE DISORDER, SINGLE EPISOD 06/25/2017 CANDIS SHORE MD Ot F41.9 ANXIETY DISORDER, UNSPECIFIED 06/25/2017 CANDIS SHORE MD Ot I10 ESSENTIAL (PRIMARY) HYPERTENSION 06/25/2017 CANDIS SHORE MD Ot N39.0 URINARY TRACT INFECTION, SITE NOT SPECIF 06/25/2017 CANDIS SHORE MD Ot N40.0 BENIGN PROSTATIC HYPERPLASIA WITHOUT LOW 06/25/2017 CANDIS SHORE MD Ot R30.0 DYSURIA 06/25/2017 CANDIS SHORE MD Ot Z82.49 FAMILY HX OF ISCHEM HEART DIS AND OTH DI 06/25/2017 CANDIS SHORE MD Ot Z86.718 PERSONAL HISTORY OF OTHER VENOUS THROMBO 06/25/2017 CANDIS SHORE MD Ot Z86.73 PRSNL HX OF TIA (TIA), AND CEREB INFRC W 06/25/2017 CANDIS SHORE MD Ot Z87.19 PERSONAL HISTORY OF OTHER DISEASES OF TH 06/25/2017 CANDIS SHORE MD Ot Z87.440 PERSONAL HISTORY OF URINARY (TRACT) INFE 06/25/2017 CANDIS SHORE MD Ot Z87.448 PERSONAL HISTORY OF OTHER DISEASES OF UR 06/25/2017 CANDIS SHORE MD Ot Z88.5 ALLERGY STATUS TO NARCOTIC AGENT STATUS 06/25/2017 CANDIS SHORE MD Ot Z88.8 ALLERGY STATUS TO OTH DRUG/MEDS/BIOL SUB 06/25/2017 CANDIS SHORE MD Ot Z98.890 OTHER SPECIFIED POSTPROCEDURAL STATES 08/16/2017 YADI GILMAN MD Ot E78.00 PURE HYPERCHOLESTEROLEMIA, UNSPECIFIED 08/16/2017 YADI GILMAN MD Ot F03.90 UNSPECIFIED DEMENTIA WITHOUT BEHAVIORAL 08/16/2017 YADI GILMAN MD Ot F32.9 MAJOR DEPRESSIVE DISORDER, SINGLE EPISOD 08/16/2017 YADI GILMAN MD Ot F41.9 ANXIETY DISORDER, UNSPECIFIED 08/16/2017 YADI GILMAN MD, Ot I10 ESSENTIAL (PRIMARY) HYPERTENSION 08/16/2017 YADI GILMAN MD, Ot R40.2142 COMA SCALE, EYES OPEN, SPONTANEOUS, EMR 08/16/2017 YADI GILMAN MD, Ot R40.2252 COMA SCALE, BEST VERBAL RESPONSE, ORIENT 08/16/2017 YADI GILMAN MD, Ot R40.2362 COMA SCALE, BEST MOTOR RESPONSE, OBEYS C 08/16/2017 YADI GILMAN MD, Ot S00.01XA ABRASION OF SCALP, INITIAL ENCOUNTER 08/16/2017 YADI GILMAN MD, Ot S09.90XA UNSPECIFIED INJURY OF HEAD, INITIAL ENCO 08/16/2017 YADI GILMAN MD, Ot S61.411A LACERATION WITHOUT FOREIGN BODY OF RIGHT 08/16/2017 YADI GILMAN MD, Ot W10.8XXA FALL (ON) (FROM) OTHER STAIRS AND STEPS, 08/16/2017 YADI GILMAN MD, Ot Z79.01 EMERGENCY DEPARTMENT CLINICIAN (CURRENT) USE OF ANTICOAGULANT 08/16/2017 YADI GILMAN MD, Ot Z82.49 FAMILY HX OF ISCHEM HEART DIS AND OTH DI 08/16/2017 YADI GILMAN MD, Ot Z86.718 PERSONAL HISTORY OF OTHER VENOUS THROMBO 08/16/2017 YADI GILMAN MD, Ot Z86.73 PRSNL HX OF TIA (TIA), AND CEREB INFRC W 08/16/2017 YADI GILMAN MD, Ot Z87.19 PERSONAL HISTORY OF OTHER DISEASES OF TH 08/16/2017 YADI GILMAN MD, Ot Z87.448 PERSONAL HISTORY OF OTHER DISEASES OF UR 08/16/2017 YADI GILMAN MD, Ot Z88.5 ALLERGY STATUS TO NARCOTIC AGENT STATUS 08/16/2017 YADI GILMAN MD, Ot Z88.8 ALLERGY STATUS TO OTH DRUG/MEDS/BIOL SUB 08/20/2017 YADI GILMAN MD, Ot E78.00 PURE HYPERCHOLESTEROLEMIA, UNSPECIFIED 08/20/2017 YADI GILMAN MD, Ot F03.90 UNSPECIFIED DEMENTIA WITHOUT BEHAVIORAL 08/20/2017 YADI GILMAN MD, Ot F32.9 MAJOR DEPRESSIVE DISORDER, SINGLE EPISOD 08/20/2017 YADI GILMAN MD, Ot F41.9 ANXIETY DISORDER, UNSPECIFIED 08/20/2017 YADI GILMAN MD, Ot I10 ESSENTIAL (PRIMARY) HYPERTENSION 08/20/2017 YADI GILMAN MD, Ot R40.2142 COMA SCALE, EYES OPEN, SPONTANEOUS, EMR 08/20/2017 YADI GILMAN MD, Ot R40.2252 COMA SCALE, BEST VERBAL RESPONSE, ORIENT 08/20/2017 YADI GILMAN MD, Ot R40.2362 COMA SCALE, BEST MOTOR RESPONSE, OBEYS C 08/20/2017 YADI GILMAN MD, Ot S00.01XA ABRASION OF SCALP, INITIAL ENCOUNTER 08/20/2017 YADI GILMAN MD, Ot S09.90XA UNSPECIFIED INJURY OF HEAD, INITIAL ENCO 08/20/2017 YADI GILMAN MD, Ot S61.411A LACERATION WITHOUT FOREIGN BODY OF RIGHT 08/20/2017 YADI GILMAN MD, Ot W10.8XXA FALL (ON) (FROM) OTHER STAIRS AND STEPS, 08/20/2017 YADI GILMAN MD, Ot Z79.01 EMERGENCY DEPARTMENT CLINICIAN (CURRENT) USE OF ANTICOAGULANT 08/20/2017 YADI GILMAN MD, Ot Z82.49 FAMILY HX OF ISCHEM HEART DIS AND OTH DI 08/20/2017 YADI GILMAN MD, Ot Z86.718 PERSONAL HISTORY OF OTHER VENOUS THROMBO 08/20/2017 YADI GILMAN MD, Ot Z86.73 PRSNL HX OF TIA (TIA), AND CEREB INFRC W 08/20/2017 YADI GILMAN MD, Ot Z87.19 PERSONAL HISTORY OF OTHER DISEASES OF TH 08/20/2017 YADI GILMAN MD, Ot Z87.448 PERSONAL HISTORY OF OTHER DISEASES OF UR 08/20/2017 YADI GILMAN MD, Ot Z88.5 ALLERGY STATUS TO NARCOTIC AGENT STATUS 08/20/2017 YADI GILMAN MD, Ot Z88.8 ALLERGY STATUS TO OTH DRUG/MEDS/BIOL SUB 08/22/2017 YADI GILMAN MD, Ot E78.00 PURE HYPERCHOLESTEROLEMIA, UNSPECIFIED 08/22/2017 YADI GILMAN MD, Ot F03.90 UNSPECIFIED DEMENTIA WITHOUT BEHAVIORAL 08/22/2017 YADI GILMAN MD, Ot F32.9 MAJOR DEPRESSIVE DISORDER, SINGLE EPISOD 08/22/2017 YADI GILMAN MD, Ot F41.9 ANXIETY DISORDER, UNSPECIFIED 08/22/2017 YADI GILMAN MD, Ot I10 ESSENTIAL (PRIMARY) HYPERTENSION 08/22/2017 YADI GILMAN MD, Ot R40.2142 COMA SCALE, EYES OPEN, SPONTANEOUS, EMR 08/22/2017 YADI GILMAN MD, Ot R40.2252 COMA SCALE, BEST VERBAL RESPONSE, ORIENT 08/22/2017 YADI GILMAN MD, Ot R40.2362 COMA SCALE, BEST MOTOR RESPONSE, OBEYS C 08/22/2017 YADI GILMAN MD Ot S00.01XA ABRASION OF SCALP, INITIAL ENCOUNTER 08/22/2017 YADI GILMAN MD, Ot S09.90XA UNSPECIFIED INJURY OF HEAD, INITIAL ENCO 08/22/2017 YADI GILMAN MD, Ot S61.411A LACERATION WITHOUT FOREIGN BODY OF RIGHT 08/22/2017 YADI GILMAN MD, Ot W10.8XXA FALL (ON) (FROM) OTHER STAIRS AND STEPS, 08/22/2017 YADI GILMAN MD, Ot Z79.01 EMERGENCY DEPARTMENT CLINICIAN (CURRENT) USE OF ANTICOAGULANT 08/22/2017 YADI GILMAN MD, Ot Z82.49 FAMILY HX OF ISCHEM HEART DIS AND OTH DI 08/22/2017 YADI GILMAN MD, Ot Z86.718 PERSONAL HISTORY OF OTHER VENOUS THROMBO 08/22/2017 YADI GILMAN MD, Ot Z86.73 PRSNL HX OF TIA (TIA), AND CEREB INFRC W 08/22/2017 YADI GILMAN MD, Ot Z87.19 PERSONAL HISTORY OF OTHER DISEASES OF TH 08/22/2017 YADI GILMAN MD, Ot Z87.448 PERSONAL HISTORY OF OTHER DISEASES OF UR 08/22/2017 YADI GILMAN MD, Ot Z88.5 ALLERGY STATUS TO NARCOTIC AGENT STATUS 08/22/2017 YADI GILMAN MD, Ot Z88.8 ALLERGY STATUS TO OTH DRUG/MEDS/BIOL SUB Procedures Code Description [place] [address] ROUTINE VENIPUNCTURE 03/19/2012 06659 CBC 03/19/2012 24399 CMP 03/19/2012 19339 LIPID PANEL 03/19/20123079988 GFR CALC (RESULT ONLY) 03/19/2012 38107 TSH 03/20/2012 97114 T4 03/20/2012 Cardiolog Jess El 04/09/2012 28588 ROUTINE VENIPUNCTURE 07/18/2012 65266 A1C (IN-HOUSE) 07/18/2012 15234 LIPID PANEL 07/18/2012 16728 INSULIN LEVEL 07/19/2012 89770 ROUTINE VENIPUNCTURE 08/02/2012 77598 PSA TOTAL 08/02/2012 32130 CULTURE STOOL 08/19/2012 23791 STOOL FOR POLYS & LEUKOCYTES 08/20/2012 98706 CLOSTRIDIUM (C-DIFF) 08/20/2012 68239 STOOL FOR O & P 08/27/2012 86845 ROUTINE VENIPUNCTURE 11/12/2012 38426 LIVER PANEL (LFT) 11/12/2012 38819 LIPID PANEL 11/12/2012 G0008 FLU ADMINISTRATION ( MEDICARE ONLY) 03/28/2013 58260 A1C (IN-HOUSE) 11/12/2013 79429 ROUTINE VENIPUNCTURE 12/12/2013 29212 LIPID PANEL 12/12/2013 10049 LIVER PANEL (LFT) 12/12/2013 13679 A1C (IN-HOUSE) 03/19/2014 Results Test Result Range Comprehensive metabolic panel - 01/20/16 15:30 Serum or plasma sodium measurement (moles/volume) 140 mmol/L 135-145 Serum or plasma potassium measurement (moles/volume) 3.7 mmol/L 3.6-5.0 Serum or plasma chloride measurement (moles/volume) 108 mmol/L 98-107 Carbon dioxide 23 mmol/L 21-32 Serum or plasma anion gap determination (moles/volume) 9 mmol/L 5-14 Serum or plasma urea nitrogen measurement (mass/volume) 15 mg/dL 7-18 Serum or plasma creatinine measurement (mass/volume) 0.81 mg/dL 0.60-1.30 Serum or plasma urea nitrogen/creatinine mass ratio 19 NRG Serum or plasma creatinine measurement with calculation of estimated glomerular filtration rate > NRG Serum or plasma glucose measurement (mass/volume) 120 mg/dL 70-105 Serum or plasma calcium measurement (mass/volume) 8.9 mg/dL 8.5-10.1 Serum or plasma total bilirubin measurement (mass/volume) 0.2 mg/dL 0.1-1.0 Serum or plasma alkaline phosphatase measurement (enzymatic activity/volume) 97 U/L 40-136 Serum or plasma aspartate aminotransferase measurement (enzymatic activity/ volume) 25 U/L 5-34 Serum or plasma alanine aminotransferase measurement (enzymatic activity/volume ) 29 U/L 0-55 Serum or plasma protein measurement (mass/volume) 6.8 g/dL 6.4-8.2 Serum or plasma albumin measurement (mass/volume) 4.2 g/dL 3.2-4.5 Lipid Panel - 01/26/16 08:01 Cholesterol, Total 151 mg/dL 100-199 Triglycerides 114 mg/dL 0-149 HDL Cholesterol 46 mg/dL >39 VLDL Cholesterol Darian 23 mg/dL 5-40 LDL Cholesterol Calc 82 mg/dL 0-99 Magnesium, Serum - 01/26/16 08:01 Magnesium, Serum 2.0 mg/dL 1.6-2.3 Comp. Metabolic Panel (14) - 03/29/16 08:15 Glucose, Serum 87 mg/dL 65-99 BUN 13 mg/dL 8-27 Creatinine, Serum 0.73 mg/dL 0.76-1.27 eGFR If NonAfricn Am 93 mL/min/1.73 >59 eGFR If Africn Am 108 mL/min/1.73 >59 BUN/Creatinine Ratio 18 10-22 Sodium, Serum 142 mmol/L 136-144 Potassium, Serum 4.0 mmol/L 3.5-5.2 Chloride, Serum 102 mmol/L 97-106 Carbon Dioxide, Total 25 mmol/L 18-29 Calcium, Serum 9.1 mg/dL 8.6-10.2 Protein, Total, Serum 6.6 g/dL 6.0-8.5 Albumin, Serum 4.0 g/dL 3.5-4.8 Globulin, Total 2.6 g/dL 1.5-4.5 A/G Ratio 1.5 1.1-2.5 Bilirubin, Total 0.3 mg/dL 0.0-1.2 Alkaline Phosphatase, S 99 IU/L 39-117 AST (SGOT) 33 IU/L 0-40 ALT (SGPT) 40 IU/L 0-44 Lipid Panel - 03/29/16 08:15 Cholesterol, Total 158 mg/dL 100-199 Triglycerides 118 mg/dL 0-149 HDL Cholesterol 45 mg/dL >39 VLDL Cholesterol Darian 24 mg/dL 5-40 LDL Cholesterol Calc 89 mg/dL 0-99 Complete blood count (CBC) with automated white blood cell (WBC) differential - 10/13/16 11:20 Blood leukocytes automated count (number/volume) 6.3 10*3/uL 4.3-11.0 Blood erythrocytes automated count (number/volume) 4.73 10*6/uL 4.35-5.85 Venous blood hemoglobin measurement (mass/volume) 14.2 g/dL 13.3-17.7 Blood hematocrit (volume fraction) 42 % 40-54 Automated erythrocyte mean corpuscular volume 88 [foz_us] 80-99 Automated erythrocyte mean corpuscular hemoglobin (mass per erythrocyte) 30 pg 25-34 Automated erythrocyte mean corpuscular hemoglobin concentration measurement ( mass/volume) 34 g/dL 32-36 Automated erythrocyte distribution width ratio 13.5 % 10.0-14.5 Automated blood platelet count (count/volume) 188 10*3/uL 130-400 Automated blood platelet mean volume measurement 9.6 [foz_us] 7.4-10.4 Automated blood neutrophils/100 leukocytes 74 % 42-75 Automated blood lymphocytes/100 leukocytes 15 % 12-44 Blood monocytes/100 leukocytes 9 % 0-12 Automated blood eosinophils/100 leukocytes 2 % 0-10 Automated blood basophils/100 leukocytes 0 % 0-10 Blood neutrophils automated count (number/volume) 4.7 10*3 1.8-7.8 Blood lymphocytes automated count (number/volume) 0.9 10*3 1.0-4.0 Blood monocytes automated count (number/volume) 0.6 10*3 0.0-1.0 Automated eosinophil count 0.2 10*3/uL 0.0-0.3 Automated blood basophil count (count/volume) 0.0 10*3/uL 0.0-0.1 PT panel in platelet poor plasma by coagulation assay - 10/13/16 11:20 Prothrombin time (PT) in platelet poor plasma by coagulation assay 14.1 s 12.2-14.7 INR in platelet poor plasma or blood by coagulation assay 1.1 0.8-1.4 Activated partial thromboplastin time (aPTT) in platelet poor plasma bycoagulation assay - 10/13/16 11:20 Activated partial thromboplastin time (aPTT) in platelet poor plasma bycoagulation assay 29 s 24-35 Fibrin D-dimer FEU measurement in platelet poor plasma (mass/volume) - 11:20 Fibrin D-dimer FEU measurement in platelet poor plasma (mass/volume) 0.39 ug/mL 0.00-0.49 Comprehensive metabolic panel - 10/13/16 11:20 Serum or plasma sodium measurement (moles/volume) 140 mmol/L 135-145 Serum or plasma potassium measurement (moles/volume) 3.7 mmol/L 3.6-5.0 Serum or plasma chloride measurement (moles/volume) 108 mmol/L 98-107 Carbon dioxide 24 mmol/L 21-32 Serum or plasma anion gap determination (moles/volume) 8 mmol/L 5-14 Serum or plasma urea nitrogen measurement (mass/volume) 16 mg/dL 7-18 Serum or plasma creatinine measurement (mass/volume) 0.71 mg/dL 0.60-1.30 Serum or plasma urea nitrogen/creatinine mass ratio 23 NRG Serum or plasma creatinine measurement with calculation of estimated glomerular filtration rate > NRG Serum or plasma glucose measurement (mass/volume) 94 mg/dL 70-105 Serum or plasma calcium measurement (mass/volume) 8.9 mg/dL 8.5-10.1 Serum or plasma total bilirubin measurement (mass/volume) 0.4 mg/dL 0.1-1.0 Serum or plasma alkaline phosphatase measurement (enzymatic activity/volume) 74 U/L 40-136 Serum or plasma aspartate aminotransferase measurement (enzymatic activity/ volume) 26 U/L 5-34 Serum or plasma alanine aminotransferase measurement (enzymatic activity/volume ) 25 U/L 0-55 Serum or plasma protein measurement (mass/volume) 6.4 g/dL 6.4-8.2 Serum or plasma albumin measurement (mass/volume) 3.7 g/dL 3.2-4.5 Serum or plasma troponin i.cardiac measurement (mass/volume) - 10/13/16 11:20 Serum or plasma troponin i.cardiac measurement (mass/volume) < ng/ mL <0.30 Complete urinalysis with reflex to culture - 10/13/16 12:25 Urine color determination YELLOW NRG Urine clarity determination CLEAR NRG Urine pH measurement by test strip 6.5 5-9 Specific gravity of urine by test strip 1.015 1.016- 1.022 Urine protein assay by test strip, semi-quantitative NEGATIVE NEGATIVE Urine glucose detection by automated test strip NEGATIVE NEGATIVE Erythrocytes detection in urine sediment by light microscopy 1+ NEGATIVE Urine ketones detection by automated test strip NEGATIVE NEGATIVE Urine nitrite detection by test strip NEGATIVE NEGATIVE Urine total bilirubin detection by test strip NEGATIVE NEGATIVE Urine urobilinogen measurement by automated test strip (mass/volume) NORMAL NORMAL Urine leukocyte esterase detection by dipstick NEGATIVE NEGATIVE Automated urine sediment erythrocyte count by microscopy (number/high power field) [HPF] NRG Automated urine sediment leukocyte count by microscopy (number/high power field ) RARE NRG Bacteria detection in urine sediment by light microscopy NEGATIVE NRG Crystals detection in urine sediment by light microscopy NONE NRG Casts detection in urine sediment by light microscopy NONE NRG Mucus detection in urine sediment by light microscopy MODERATE NRG Complete urinalysis with reflex to culture NO NRG Complete urinalysis with reflex to culture - 03/24/17 18:09 Urine color determination YELLOW NRG Urine clarity determination CLEAR NRG Urine pH measurement by test strip 6 5-9 Specific gravity of urine by test strip 1.020 1.016- 1.022 Urine protein assay by test strip, semi-quantitative NEGATIVE NEGATIVE Urine glucose detection by automated test strip NEGATIVE NEGATIVE Erythrocytes detection in urine sediment by light microscopy 2+ NEGATIVE Urine ketones detection by automated test strip NEGATIVE NEGATIVE Urine nitrite detection by test strip NEGATIVE NEGATIVE Urine total bilirubin detection by test strip NEGATIVE NEGATIVE Urine urobilinogen measurement by automated test strip (mass/volume) NORMAL NORMAL Urine leukocyte esterase detection by dipstick NEGATIVE NEGATIVE Automated urine sediment erythrocyte count by microscopy (number/high power field) [HPF] NRG Automated urine sediment leukocyte count by microscopy (number/high power field ) NONE NRG Bacteria detection in urine sediment by light microscopy NONE NRG Crystals detection in urine sediment by light microscopy NONE NRG Casts detection in urine sediment by light microscopy NONE NRG Mucus detection in urine sediment by light microscopy TRACE NRG Complete urinalysis with reflex to culture NO NRG Complete blood count (CBC) with automated white blood cell (WBC) differential - 03/24/17 18:15 Blood leukocytes automated count (number/volume) 7.0 10*3/uL 4.3-11.0 Blood erythrocytes automated count (number/volume) 4.91 10*6/uL 4.35-5.85 Venous blood hemoglobin measurement (mass/volume) 14.9 g/dL 13.3-17.7 Blood hematocrit (volume fraction) 43 % 40-54 Automated erythrocyte mean corpuscular volume 88 [foz_us] 80-99 Automated erythrocyte mean corpuscular hemoglobin (mass per erythrocyte) 30 pg 25-34 Automated erythrocyte mean corpuscular hemoglobin concentration measurement ( mass/volume) 35 g/dL 32-36 Automated erythrocyte distribution width ratio 13.1 % 10.0-14.5 Automated blood platelet count (count/volume) 206 10*3/uL 130-400 Automated blood platelet mean volume measurement 9.6 [foz_us] 7.4-10.4 Automated blood neutrophils/100 leukocytes 65 % 42-75 Automated blood lymphocytes/100 leukocytes 23 % 12-44 Blood monocytes/100 leukocytes 9 % 0-12 Automated blood eosinophils/100 leukocytes 3 % 0-10 Automated blood basophils/100 leukocytes 0 % 0-10 Blood neutrophils automated count (number/volume) 4.5 10*3 1.8-7.8 Blood lymphocytes automated count (number/volume) 1.6 10*3 1.0-4.0 Blood monocytes automated count (number/volume) 0.6 10*3 0.0-1.0 Automated eosinophil count 0.2 10*3/uL 0.0-0.3 Automated blood basophil count (count/volume) 0.0 10*3/uL 0.0-0.1 Comprehensive metabolic panel - 03/24/17 18:15 Serum or plasma sodium measurement (moles/volume) 137 mmol/L 135-145 Serum or plasma potassium measurement (moles/volume) 3.3 mmol/L 3.6-5.0 Serum or plasma chloride measurement (moles/volume) 104 mmol/L 98-107 Carbon dioxide 22 mmol/L 21-32 Serum or plasma anion gap determination (moles/volume) 11 mmol/L 5-14 Serum or plasma urea nitrogen measurement (mass/volume) 14 mg/dL 7-18 Serum or plasma creatinine measurement (mass/volume) 0.72 mg/dL 0.60-1.30 Serum or plasma urea nitrogen/creatinine mass ratio 19 NRG Serum or plasma creatinine measurement with calculation of estimated glomerular filtration rate > NRG Serum or plasma glucose measurement (mass/volume) 123 mg/dL 70-105 Serum or plasma calcium measurement (mass/volume) 9.4 mg/dL 8.5-10.1 Serum or plasma total bilirubin measurement (mass/volume) 0.3 mg/dL 0.1-1.0 Serum or plasma alkaline phosphatase measurement (enzymatic activity/volume) 103 U/L 40-136 Serum or plasma aspartate aminotransferase measurement (enzymatic activity/ volume) 24 U/L 5-34 Serum or plasma alanine aminotransferase measurement (enzymatic activity/volume ) 21 U/L 0-55 Serum or plasma protein measurement (mass/volume) 7.0 g/dL 6.4-8.2 Serum or plasma albumin measurement (mass/volume) 4.2 g/dL 3.2-4.5 Serum or plasma amylase measurement (enzymatic activity/volume) - 03/24/17 18: 15 Serum or plasma amylase measurement (enzymatic activity/volume) 66 U /L 25-125 Lipase - 03/24/17 18:15 Lipase 24 U/L 8-78 CMP - 06/20/17 08:24 GLUCOSE 93 mg/dL 65-99 UREA NITROGEN (BUN) 16 mg/dL 7-25 CREATININE 0.69 mg/dL 0.70-1.18 eGFR NON-AFR. TRISTANIAN 95 mL/min/1.73m2 > OR=60 eGFR 110 mL/min/1.73m2 > OR=60 BUN/CREATININE RATIO 23 (calc) 6-22 SODIUM 138 mmol/L 135-146 POTASSIUM 3.7 mmol/L 3.5-5.3 CHLORIDE 105 mmol/L 98-110 CARBON DIOXIDE 26 mmol/L 20-31 CALCIUM 9.1 mg/dL 8.6-10.3 PROTEIN, TOTAL 6.5 g/dL 6.1-8.1 ALBUMIN 4.0 g/dL 3.6-5.1 GLOBULIN 2.5 g/dL (calc) 1.9-3.7 ALBUMIN/GLOBULIN RATIO 1.6 (calc) 1.0-2.5 BILIRUBIN, TOTAL 0.5 mg/dL 0.2-1.2 ALKALINE PHOSPHATASE 95 U/L 40-115 AST 20 U/L 10-35 ALT 18 U/L 9-46 CBC - 06/20/17 08:24 WHITE BLOOD CELL COUNT 5.6 Thousand/uL 3.8-10.8 RED BLOOD CELL COUNT 5.02 Million/uL 4.20-5.80 HEMOGLOBIN 14.9 g/dL 13.2-17.1 HEMATOCRIT 44.6 % 38.5-50.0 MCV 88.8 fL 80.0-100.0 MCH 29.7 pg 27.0-33.0 MCHC 33.4 g/dL 32.0-36.0 RDW 12.6 % 11.0-15.0 PLATELET COUNT 199 Thousand/uL 140-400 MPV 9.7 fL 7.5-12.5 ABSOLUTE NEUTROPHILS 3808 cells/uL 2503-6123 ABSOLUTE LYMPHOCYTES 1047 cells/uL 850-3900 ABSOLUTE MONOCYTES 554 cells/uL 200-950 ABSOLUTE EOSINOPHILS 162 cells/uL 15-500 ABSOLUTE BASOPHILS 28 cells/uL 0-200 NEUTROPHILS 68 % NRG LYMPHOCYTES 18.7 % NRG MONOCYTES 9.9 % NRG EOSINOPHILS 2.9 % NRG BASOPHILS 0.5 % NRG Complete urinalysis with reflex to culture - 06/23/17 20:23 Urine color determination YELLOW NRG Urine clarity determination CLEAR NRG Urine pH measurement by test strip 5 5-9 Specific gravity of urine by test strip 1.025 1.016- 1.022 Urine protein assay by test strip, semi-quantitative NEGATIVE NEGATIVE Urine glucose detection by automated test strip NEGATIVE NEGATIVE Erythrocytes detection in urine sediment by light microscopy 4+ NEGATIVE Urine ketones detection by automated test strip NEGATIVE NEGATIVE Urine nitrite detection by test strip NEGATIVE NEGATIVE Urine total bilirubin detection by test strip NEGATIVE NEGATIVE Urine urobilinogen measurement by automated test strip (mass/volume) NORMAL NORMAL Urine leukocyte esterase detection by dipstick NEGATIVE NEGATIVE Automated urine sediment erythrocyte count by microscopy (number/high power field) [HPF] NRG Automated urine sediment leukocyte count by microscopy (number/high power field ) [HPF] NRG Bacteria detection in urine sediment by light microscopy TRACE NRG Squamous epithelial cells detection in urine sediment by light microscopy 5-10 NRG Crystals detection in urine sediment by light microscopy NONE NRG Casts detection in urine sediment by light microscopy PRESENT NRG Mucus detection in urine sediment by light microscopy MODERATE NRG Complete urinalysis with reflex to culture NO NRG Hyaline casts detection in urine sediment by light microscopy 0-2 NRG Renal epithelial cells detection in urine sediment by light microscopy NONE NRG Bacterial urine culture - 06/23/17 20:23 Bacterial urine culture [id number] NRG COLONY COUNT <10,000 NRG FTX;REPORTABLE NO FURTHER STUDIES UNLESS REQUESTED, NRG URINE CULTURE RESULTS COAG NEGATIVE STAPH NRG FREE TEXT ENTRY 2 LOW COLONY COUNT NRG Automated blood complete blood count (hemogram) panel - 08/16/17 10:18 Blood leukocytes automated count (number/volume) 6.2 10*3/uL 4.3-11.0 Blood erythrocytes automated count (number/volume) 5.08 10*6/uL 4.35-5.85 Venous blood hemoglobin measurement (mass/volume) 15.3 g/dL 13.3-17.7 Blood hematocrit (volume fraction) 45 % 40-54 Automated erythrocyte mean corpuscular volume 88 [foz_us] 80-99 Automated erythrocyte mean corpuscular hemoglobin (mass per erythrocyte) 30 pg 25-34 Automated erythrocyte mean corpuscular hemoglobin concentration measurement ( mass/volume) 34 g/dL 32-36 Automated erythrocyte distribution width ratio 13.5 % 10.0-14.5 Automated blood platelet count (count/volume) 206 10*3/uL 130-400 Automated blood platelet mean volume measurement 9.8 [foz_us] 7.4-10.4 Liver function panel (serum or plasma alk phos, alb, total and direct bili, total protein, ALT, AST) - 08/16/17 10:18 Serum or plasma total bilirubin measurement (mass/volume) 0.5 mg/dL 0.1-1.0 Serum or plasma alkaline phosphatase measurement (enzymatic activity/volume) 97 U/L 40-136 Serum or plasma aspartate aminotransferase measurement (enzymatic activity/ volume) 28 U/L 5-34 Serum or plasma alanine aminotransferase measurement (enzymatic activity/volume ) 27 U/L 0-55 Serum or plasma protein measurement (mass/volume) 6.7 g/dL 6.4-8.2 Serum or plasma albumin measurement (mass/volume) 4.0 g/dL 3.2-4.5 Bilirubin direct 0.2 mg/dL 0.0-0.3 Serum or plasma indirect bilirubin measurement (mass/volume) 0.3 mg/ dL NRG Whole blood basic metabolic panel - 08/16/17 10:18 Serum or plasma sodium measurement (moles/volume) 138 mmol/L 135-145 Serum or plasma potassium measurement (moles/volume) 3.6 mmol/L 3.6-5.0 Serum or plasma chloride measurement (moles/volume) 105 mmol/L 98-107 Carbon dioxide 27 mmol/L 21-32 Serum or plasma anion gap determination (moles/volume) 6 mmol/L 5-14 Serum or plasma urea nitrogen measurement (mass/volume) 13 mg/dL 7-18 Serum or plasma creatinine measurement (mass/volume) 0.71 mg/dL 0.60-1.30 Serum or plasma urea nitrogen/creatinine mass ratio 18 NRG Serum or plasma creatinine measurement with calculation of estimated glomerular filtration rate > NRG Serum or plasma glucose measurement (mass/volume) 108 mg/dL 70-105 Serum or plasma calcium measurement (mass/volume) 9.1 mg/dL 8.5-10.1 PT panel in platelet poor plasma by coagulation assay - 08/16/17 10:18 Prothrombin time (PT) in platelet poor plasma by coagulation assay 13.8 s 12.2-14.7 INR in platelet poor plasma or blood by coagulation assay 1.1 0.8-1.4 Activated partial thromboplastin time (aPTT) in platelet poor plasma bycoagulation assay - 08/16/17 10:18 Activated partial thromboplastin time (aPTT) in platelet poor plasma bycoagulation assay 28 s 24-35 Serum or plasma ethanol measurement (mass/volume) - 08/16/17 10:18 Serum or plasma ethanol measurement (mass/volume) < mg/dL <10 Complete urinalysis with reflex to culture - 08/16/17 11:25 Urine color determination YELLOW NRG Urine clarity determination CLEAR NRG Urine pH measurement by test strip 5 5-9 Specific gravity of urine by test strip 1.020 1.016- 1.022 Urine protein assay by test strip, semi-quantitative NEGATIVE NEGATIVE Urine glucose detection by automated test strip NEGATIVE NEGATIVE Erythrocytes detection in urine sediment by light microscopy 1+ NEGATIVE Urine ketones detection by automated test strip NEGATIVE NEGATIVE Urine nitrite detection by test strip NEGATIVE NEGATIVE Urine total bilirubin detection by test strip NEGATIVE NEGATIVE Urine urobilinogen measurement by automated test strip (mass/volume) NORMAL NORMAL Urine leukocyte esterase detection by dipstick 1+ NEGATIVE Automated urine sediment erythrocyte count by microscopy (number/high power field) NONE NRG Automated urine sediment leukocyte count by microscopy (number/high power field ) [HPF] NRG Bacteria detection in urine sediment by light microscopy NEGATIVE NRG Squamous epithelial cells detection in urine sediment by light microscopy NONE NRG Crystals detection in urine sediment by light microscopy NONE NRG Casts detection in urine sediment by light microscopy NONE NRG Mucus detection in urine sediment by light microscopy NEGATIVE NRG Complete urinalysis with reflex to culture NO NRG Encounters ACCT No. Visit Date/Time Discharge Status Pt. Type Provider Facility Loc./Unit Complaint [id number] 06/16/2014 09:26:00 06/16/2014 23:59:59 CLS Outpatient SHAY HONG MD [id number] 05/26/2014 14:20:00 05/26/2014 23:59:59 CLS Outpatient SHAY HONG MD [id number] 04/15/2014 09:31:00 04/15/2014 23:59:59 CLS Outpatient FRANKIE ROCHE APRN [id number] 03/19/2014 13:52:00 03/19/2014 23:59:59 CLS Outpatient SHAY HONG MD [id number] 03/19/2014 13:52:00 03/19/2014 23:59:59 CLS Outpatient SHAY HONG MD [id number] 12/12/2013 08:05:00 12/12/2013 23:59:59 CLS Outpatient SHAY HONG MD [id number] 11/12/2013 10:24:00 11/12/2013 23:59:59 CLS Outpatient SHAY HONG MD [id number] 11/12/2013 10:24:00 11/12/2013 23:59:59 CLS Outpatient ABEL BELL DO [id number] 08/28/2013 13:45:00 08/28/2013 23:59:59 CLS Outpatient SHAY HONG MD [id number] 07/15/2013 10:48:00 07/15/2013 23:59:59 CLS Outpatient MONIKA GOMEZ MD [id number] 06/04/2013 08:44:00 06/04/2013 23:59:59 CLS Outpatient ABEL BELL DO [id number] 03/28/2013 13:47:00 03/28/2013 23:59:59 CLS Outpatient ABEL BELL DO [id number] 02/25/2013 13:11:00 02/25/2013 23:59:59 CLS Outpatient MONIKA GOMEZ MD [id number] 01/01/2013 16:26:00 01/01/2013 23:59:59 CLS Outpatient MONIKA GOMEZ MD [id number] 08/19/2012 10:30:00 08/19/2012 23:59:59 CLS Outpatient [id number] 08/02/2012 15:23:00 08/02/2012 23:59:59 CLS Outpatient MONIKA GOMEZ MD [id number] 07/18/2012 08:35:00 07/18/2012 23:59:59 CLS Outpatient MONIKA GOMEZ MD [id number] 03/19/2012 08:26:00 03/19/2012 23:59:59 [place] [id number] 03/19/2012 08:26:00 03/19/2012 23:59:59 CLS Outpatient KARL FERGUSON MD [id number] 11/12/2012 08:26:00 Document Registration [id number] 10/16/2012 15:11:00 Document Registration [id number] 08/02/2012 15:23:00 Document Registration [id number] 03/30/2016 08:44:00 Document Registration [id number] 08/16/2017 10:07:00 08/16/2017 12:11:00 DIS Emergency KALINA SIMONS, YADI Howard [facility] ER FALL [id number] 06/23/2017 20:14:00 06/23/2017 21:30:00 DIS Emergency CANDIS SHORE MD [facility] ER POSS UTI [id number] 06/19/2017 14:25:00 06/19/2017 14:27:00 DIS Outpatient ANIBAL PHILLIPS APRN [facility] SLEEP G47.1 [id number] 05/28/2017 15:04:00 05/28/2017 23:59:59 CLS Preadmit ANIBAL PHILLIPS [employer] [facility] RT COPD [id number] 05/10/2017 12:45:00 05/10/2017 23:59:59 CLS Outpatient BO BALTAZAR [facility] CARD R07.89 CHEST PAIN [id number] 04/17/2017 11:58:00 04/17/2017 23:59:59 CLS Outpatient JESS EL MD [facility] RAD I10 R07.89 R06.00 E78.2 [id number] 03/24/2017 16:55:00 03/24/2017 20:59:00 DIS Emergency MATT PURVIS DO [facility] ER BACK PAIN [id number] 10/13/2016 10:43:00 10/13/2016 13:00:00 DIS Emergency FEI OTTO [employer]IST [facility] ER DIZZY SLURRED SPEECH WEAKNESS [id number] 01/31/2016 07:51:00 01/31/2016 23:59:59 CLS Outpatient SHAY HONG MD [facility] RAD CRAMPS OF RT LOWER EXTRIMITY [id number] 01/20/2016 14:52:00 01/20/2016 23:59:59 CLS Outpatient SHAY HONG MD [facility] RAD RT LEG PAIN [id number] 01/20/2016 14:02:00 01/20/2016 23:59:59 CLS Emergency YADI GILMAN MD [facility] ER RT CALF PAIN [id number] 08/28/2015 17:53:00 08/28/2015 18:38:00 DIS Emergency RANDI HUNTER MD [facility] ER POST OP/INCISION ISSUES [id number] 08/25/2015 06:00:00 08/25/2015 10:30:00 DIS Outpatient JAELYN NINA MD [facility] SDC BILATERAL HYDROCELE [id number] 04/20/2015 18:12:00 04/21/2015 16:30:00 DIS Inpatient SHAY HONG MD [facility] 4TH PULMONARY EMBOLISM R LUNG , TIA [id number] 01/15/2015 10:41:00 01/15/2015 12:37:00 DIS Emergency FEI OTTO APRN [facility] ER SLURRED SPEECH/UNSTEADY [id number] 06/09/2014 16:11:00 06/09/2014 18:52:00 DIS Emergency RANDI HUNTER MD [facility] ER SPITTING UP BLOOD [id number] 02/05/2014 09:29:00 02/05/2014 23:59:59 CLS Outpatient SHAY HONG MD [facility] RAD RENAL MASS [id number] 02/01/2014 09:28:00 02/01/2014 12:41:00 DIS Emergency FRANKIE JOHN DO [facility] ER ABD PAIN [id number] 08/23/2013 11:11:00 08/23/2013 13:05:00 DIS Emergency FEI OTTO APRN [facility] ER L SIDE ABD PAIN [id number] 04/16/2013 10:58:00 04/16/2013 11:55:00 DIS Emergency YADI GILMAN MD [facility] ER SUTURE REMOVAL [id number] 04/06/2013 15:59:00 04/06/2013 18:54:00 DIS Emergency DAYDAY RHODES [facility] ER LAC ON FINGER [id number] 01/27/2013 10:32:00 01/27/2013 23:59:59 CLS Outpatient Kirill PIERCE MD [facility] RAD 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 [id number] 08/19/2015 10:29:00 Document Registration [id number] 06/05/2012 10:53:00 Document Registration [id number] 06/03/2012 13:48:00 Document Registration [id number] 05/30/2012 08:44:00 Document Registration [id number] 05/28/2012 10:33:00 Document Registration [id number] 03/20/2012 06:40:00 Document Registration [id number] 03/18/2012 20:06:00 Document Registration [id number] 03/12/2012 13:47:00 Document Registration [id number] 02/23/2012 13:19:00 Document Registration [id number] 10/24/2011 20:36:00 Document Registration [id number] 09/23/2011 18:57:00 Document Registration [id number] 08/22/2011 12:31:00 Document Registration [id number] 01/11/2011 18:44:00 Document Registration [id number] 07/05/2010 11:17:00 Document Registration [id number] 06/10/2010 10:25:00 Document Registration [id number] 01/15/2015 10:41:46 ACT Document Registration [id number] 01/27/2016 08:46:00 Document Registration [id number] 06/27/2017 10:20:00 06/27/2017 23:59:59 [facility] GELY SIMONS, SHAY Llamas [facility] [place] [id number] 06/20/2017 08:20:00 Document Registration
--- NOTE | 2017-08-28 21:53 | ED Back Pain ---
General Chief Complaint: Back Problems Stated Complaint: LOWER BACK PAIN Source of Information: Patient Exam Limitations: No Limitations History of Present Illness Date Seen by Provider: Aug 28, 2017 Time Seen by Provider: 21:51 Initial Comments To ER with midline low back and left lateral low flank pain. Patient fell down some steps at [employer] a few weeks ago. He was evaluated here in the emergency room with a multitude of CT scans. He's been taking tramadol at home without improvement. Pain became worse than usual 3 days ago without known injury. Location: Lumbar Spine, Paraspinous Muscles Timing/Duration: 2-3 Days Associated Symptoms: lower back pain Allergies and Home Medications Allergies Coded Allergies: codeine (Unverified Allergy, Severe, rash, 01/11/11) hydrocodone (Verified Allergy, Unknown, 08/19/15) lovastatin (Verified Allergy, Unknown, 08/19/15) Home Medications Albuterol Sulfate 6.7 Gm Hfa.aer.ad, 2 PUFF IH Q4H PRN for WHEEZING, (Reported) Alprazolam 0.5 Mg Tablet, 0.5 MG PO BID PRN for ANXIETY, (Reported) Amlodipine Besylate 5 Mg Tablet, 5 MG PO DAILY, (Reported) Cephalexin 500 Mg Capsule, 1 TAB PO BID Prescribed by: KAREN LOCKHART on 08/25/15 0910 Cyclobenzaprine HCl 10 Mg Tablet, 10 MG PO Q8H Prescribed by: MATT PURVIS on 03/24/172041 Docusate Sodium 50 Mg Capsule, 50 MG PO HS PRN for CONSTIPATION, (Reported) Donepezil HCl 5 Mg Tablet, 5 MG PO HS, (Reported) Finasteride 5 Mg Tablet, 5 MG PO DAILY, (Reported) Memantine HCl 10 Mg Tablet, 10 MG PO BID, (Reported) Barbeau-3 Fatty Acids/Fish Oil 1 Each Capsule, 1 CAP PO BID, (Reported) Oxybutynin Chloride 5 Mg Tablet, 5 MG PO BID, (Reported) Polyethylene Glycol 3350 17 Gm Powd.pack, 17 GM PO DAILY PRN for CONSTIPATION, ( Reported) Pravastatin Sodium 40 Mg Tablet, 40 MG PO DAILY, (Reported) Sennosides 8.6 Mg Tablet, 17.2 MG PO DAILY, (Reported) take 2 (8.6mg) tabs Sulfamethoxazole/Trimethoprim 1 Each Tablet, 1 EACH PO BID Prescribed by: CANDIS SHORE on 06/23/172123 Tamsulosin HCl 0.4 Mg Cap.er.24h, 0.4 MG PO DAILY, (Reported) Tramadol HCl 50 Mg Tablet, 50 MG PO Q4H Prescribed by: MATT PURVIS on 03/24/172041 Trazodone HCl 100 Mg Tablet, 100 MG PO HS, (Reported) [Toradol] , 1 TAB PO PRN Prescribed by: KAREN LOCKHART on 08/25/15 0910 Patient Home Medication List Home Medication List Reviewed: Yes Constitutional: see HPI EENTM: see HPI Respiratory: no symptoms reported Cardiovascular: no symptoms reported Genitourinary: no symptoms reported Musculoskeletal: see HPI, back pain Skin: no symptoms reported Psychiatric/Neurological: No Symptoms Reported Past Ffwmiuy-Yvghqb-Rxjcuy Hx Patient Social History Recent Foreign Travel: No Contact w/Someone Who Travel: No Recent Hopitalizations: No Immunizations Up To Date Tetanus Booster (TDap): Less than 5yrs Date of Pneumonia Vaccine: Feb 18, 2015 Date of Influenza Vaccine: Mar 21, 2015 Seasonal Allergies Seasonal Allergies: No Past Medical History Surgeries: Yes (HERNIA REPAIR, CYSTOCELE) Abdominal Respiratory: Yes Pulmonary Embolism Cardiac: Yes (DVT LEFT LEG) Deep Vein Thrombosis, High Cholesterol, Hypertension Neurological: Yes (mild alzheimer's ) Dementia, TIA Reproductive Disorders: No Genitourinary: Yes (RENAL CYST; INCONTINENCE, OVERACTIVE BLADDER) Benign Prostatic Hyperpl, Prostate Problems Gastrointestinal: Yes (hx of constipation issues) Chronic Constipation Musculoskeletal: Yes (GAIT INSTABILITY) Arthritis Endocrine: No (renal cyst) HEENT: No Hearing Impairment: Hard of Hearing Cancer: No Psychosocial: Yes Sleep Difficulties, Anxiety, Depression Integumentary: No Blood Disorders: Yes (hx of dvt) Adverse Reaction/Blood Tranf: No Family Medical History FH: heart disease 19 FATHER Physical Exam Vital Signs Vital Signs - First Documented 08/28/17 21:33 Temp 95.8 Pulse 72 Resp 18 B/P (MAP) 106/94 (98) Pulse Ox 96 O2 Delivery Room Air Capillary Refill : General Appearance: No Apparent Distress, WD/WN HEENT: PERRL/EOMI, TMs Normal Neck: Full Range of Motion, Normal Inspection Respiratory: Normal Breath Sounds, No Accessory Muscle Use, No Respiratory Distress Gastrointestinal: Non Tender, Soft Extremity: Normal Capillary Refill, Normal Inspection Neurologic/Psychiatric: Alert, Oriented x3, No Motor/Sensory Deficits, Normal Mood/Affect Skin: Normal Color, Warm/Dry Progress/Results/Core Measures Lab Results Laboratory Tests Test 08/28/17 22:00 08/28/17 22:33 Range/Units White Blood Count 6.3 4.3-11.0 10^3/uL Red Blood Count 4.55 4.35-5.85 10^6/uL Hemoglobin 13.9 13.3-17.7 G/DL Hematocrit 40 40-54 % Mean Corpuscular Volume 87 80-99 FL Mean Corpuscular Hemoglobin 31 25-34 PG Mean Corpuscular Hemoglobin Concent 35 32-36 G/DL Red Cell Distribution Width 13.6 10.0-14.5 % Platelet Count 214 130-400 10^3/uL Mean Platelet Volume 9.7 7.4-10.4 FL Neutrophils (%) (Auto) 64 42-75 % Lymphocytes (%) (Auto) 19 12-44 % Monocytes (%) (Auto) 13 H 0-12 % Eosinophils (%) (Auto) 4 0-10 % Basophils (%) (Auto) 0 0-10 % Neutrophils # (Auto) 4.1 1.8-7.8 X 10^3 Lymphocytes # (Auto) 1.2 1.0-4.0 X 10^3 Monocytes # (Auto) 0.8 0.0-1.0 X 10^3 Eosinophils # (Auto) 0.2 0.0-0.3 10^3/uL Basophils # (Auto) 0.0 0.0-0.1 10^3/uL Sodium Level 141 135-145 MMOL/L Potassium Level 3.5 L 3.6-5.0 MMOL/L Chloride Level 107 98-107 MMOL/L Carbon Dioxide Level 23 21-32 MMOL/L Anion Gap 11 5-14 MMOL/L Blood Urea Nitrogen 18 7-18 MG/DL Creatinine 0.79 0.60-1.30 MG/DL Estimat Glomerular Filtration Rate > 60 BUN/Creatinine Ratio 23 Glucose Level 99 70-105 MG/DL Calcium Level 8.8 8.5-10.1 MG/DL Urine Color YELLOW Urine Clarity CLEAR Urine pH 5 5-9 Urine Specific [place] 1.020 1.016-1.022 Urine Protein 1+ H NEGATIVE Urine Glucose (UA) NEGATIVE NEGATIVE Urine Ketones NEGATIVE NEGATIVE Urine Nitrite NEGATIVE NEGATIVE Urine Bilirubin NEGATIVE NEGATIVE Urine Urobilinogen NORMAL NORMAL MG/DL Urine Leukocyte Esterase 1+ H NEGATIVE Urine RBC (Auto) 1+ H NEGATIVE Urine RBC 0-2 /HPF Urine WBC 2-5 /HPF Urine Crystals NONE /LPF Urine Bacteria NEGATIVE /HPF Urine Casts PRESENT /LPF Urine Hyaline Casts 2-5 H /LPF Urine Mucus MODERATE H /LPF Urine Culture Indicated NO My Orders Orders - FEI OTTO APRN Orphenadrine Injection (Norflex Injectio (08/28/17 22:00) Cbc With Automated Diff (08/28/17 21:54) Basic Metabolic Panel (08/28/17 21:54) Ct Abdomen/Pelvis W (08/28/17 21:54) Saline Lock/Iv-Start (08/28/17 21:54) Orphenadrine Injection (Norflex Injectio (08/28/17 22:00) Ua Culture If Indicated (08/28/17 22:13) Iohexol Injection (Omnipaque 350 Mg/Ml 1 (08/28/17 22:30) Ns (Ivpb) (Sodium Chloride 0.9%) (08/28/17 22:30) Medications Given in ED Current Medications Medications Dose Ordered Sig/Nathan Route Start Time Stop Time Status Last Admin Dose Admin Iohexol 100 ml ONCE ONCE IV 08/28/17 22:30 08/28/17 22:31 DC 08/28/17 22:17 100 ML Orphenadrine Citrate 30 mg ONCE ONCE IV 08/28/17 22:00 08/28/17 22:01 DC 08/28/17 22:39 30 MG Sodium Chloride 80 ml ONCE ONCE IV 08/28/17 22:30 08/28/17 22:31 DC 08/28/17 22:17 80 ML Vital Signs/I&O 08/28/17 21:33 Temp 95.8 Pulse 72 Resp 18 B/P (MAP) 106/94 (98) Pulse Ox 96 O2 Delivery Room Air Departure Impression Primary Impression: Low back pain Disposition: 01 HOME, SELF-CARE Condition: Stable Departure-Patient Inst. Decision time for Depature: 22:55 Referrals: SHAY HONG MD (PCP/Family) Primary Care Physician Patient Instructions: Low Back Pain (DC) Add. Discharge Instructions: 1. Muscle relaxers directed 2. Follow-up with your doctor later this week for recheck 3. Return to ER for any concerns All discharge instructions reviewed with patient and/or family. Voiced understanding. Scripts Cyclobenzaprine HCl (Cyclobenzaprine HCl) 5 Mg Tablet 5 MG PO TID Y for PAIN-MODERATE TO SEVERE, #21 TAB Prov: FEI OTTO APRN 08/28/17 FEI OTTO APRN Aug 28, 2017 21:53
[2017-08-28] MEDS ORDERED: ORPHENADRINE 60 MG/2 ML (NORFLEX) AMP IM ONE (22:00)
[2017-08-28] MEDS ORDERED: ORPHENADRINE 60 MG/2 ML (NORFLEX) AMP IV ONE (22:00)
[2017-08-28 22:11] LABS: BASOPHILS % (AUTO) 0 % (0-10); EOSINOPHILS # (AUTO) 0.2 10^3/uL (0.0-0.3); EOSINOPHILS % (AUTO) 4 % (0-10); HEMATOCRIT 40 % (40-54); HEMOGLOBIN 13.9 G/DL (13.3-17.7); LYMPHOCYTES # (AUTO) 1.2 X 10^3 (1.0-4.0); LYMPHOCYTES % (AUTO) 19 % (12-44); MEAN CORPUSCULAR HEMOGLOBIN 31 PG (25-34); MEAN CORPUSCULAR HGB CONC 35 G/DL (32-36); MEAN CORPUSCULAR VOLUME 87 FL (80-99); MEAN PLATELET VOLUME 9.7 FL (7.4-10.4); MONOCYTES # (AUTO) 0.8 X 10^3 (0.0-1.0); MONOCYTES % (AUTO) 13 % (0-12); NEUTROPHILS # (AUTO) 4.1 X 10^3 (1.8-7.8); NEUTROPHILS % (AUTO) 64 % (42-75); PLATELET COUNT 214 10^3/uL (130-400); RED BLOOD COUNT 4.55 10^6/uL (4.35-5.85); RED CELL DISTRIBUTION WIDTH 13.6 % (10.0-14.5); WHITE BLOOD COUNT 6.3 10^3/uL (4.3-11.0)
[2017-08-28] MEDS ORDERED: NS 250 ML (IVPB) BAG IV ONE (22:30)
[2017-08-28] MEDS ORDERED: IOHEXOL 350 MG/ML 100 ML (OMNIPAQUE 350) VIAL IV ONE (22:30)
[2017-08-28 22:36] LABS: BUN/CREATININE RATIO 23; CALCIUM 8.8 MG/DL (8.5-10.1); CARBON DIOXIDE 23 MMOL/L (21-32); CHLORIDE 107 MMOL/L (98-107); CREATININE SERUM 0.79 MG/DL (0.60-1.30); GFR ESTIMATED > 60; GLUCOSE 99 MG/DL (70-105); POTASSIUM 3.5 MMOL/L (3.6-5.0); SODIUM 141 MMOL/L (135-145)
[2017-08-28 22:38] LABS: BILIRUBIN,URINE NEGATIVE (NEGATIVE); COLOR,URINE YELLOW; GLUCOSE, URINE (UA) NEGATIVE (NEGATIVE); KETONES,URINE NEGATIVE (NEGATIVE); LEUKOCYTE ESTERASE ,URINE 1+ (NEGATIVE); NITRITE,URINE NEGATIVE (NEGATIVE); PH,URINE 5 (5-9); PROTEIN,URINE 1+ (NEGATIVE); UROBILINOGEN,URINE NORMAL (NORMAL)
[2017-08-28 22:44] LABS: CLARITY,URINE CLEAR
[2017-08-28 22:51] LABS: BACTERIA,URINE NEGATIVE /HPF; RBC,URINE 0-2 /HPF
[2017-08-28] MEDS ORDERED: CYCL5TAB PO (22:55)
[2017-08-28 23:03] VITALS: BP 96/67
--- NOTE | 2017-08-29 06:36 | Diagnostic Imaging Report ---
PROCEDURE: CT abdomen and pelvis with contrast. TECHNIQUE: Multiple contiguous axial images were obtained through the abdomen and pelvis after administration of intravenous contrast. INDICATION: Low back pain after falling downstairs. Pain in bilateral hips. COMPARISON: CT from 03/24/2017 FINDINGS: Mild opacities are seen in the lung bases, thought to represent atelectasis. No pleural effusion is seen. There is a small pericardial effusion, which appears stable since March 2017. The heart is upper normal in size. No focal hepatic lesions are seen. Calcified granulomas are seen in the spleen. There is fatty atrophy of the pancreas which otherwise appears unremarkable. The adrenal glands are normal. The right kidney appears normal with no hydronephrosis. The left kidney demonstrates multiple cysts, with a large simple appearing cyst measuring up to 9.4 x 10.0 cm on axial imaging. This causes anterior displacement of the left kidney, but no significant hydronephrosis. The bowel loops are nondistended without evidence of obstruction. The appendix is normal. There is moderate stool in the ascending colon. There is diverticulosis of the distal colon without diverticulitis seen. No free fluid or free air seen. There are degenerative changes in the spine, with transitional anatomy at the lumbosacral junction. There is grade 1 anterolisthesis at L5-S1. Flowing osteophytes are seen in the thoracic spine, may represent diffuse idiopathic skeletal hyperostosis. No acute fracture is seen. There are moderate degenerative changes in the bilateral hips. IMPRESSION: 1. No acute fracture is seen on the CT dedicated to the abdomen and pelvis. There is transitional anatomy at the lumbosacral junction, with grade 1 anterolisthesis at L5-S1, and multilevel degenerative changes. Degenerative changes are seen in the hips bilaterally. 2. Colonic diverticulosis without diverticulitis. 3. Large left renal cyst measuring up to 10 cm, causing anterior displacement of the left kidney. No hydronephrosis is seen. 4. Small pericardial effusion appears stable. Dictated by: Dictated on workstation # [id number]
== END 2017-08-28 23:03 | disposition home or self-care (01) ==
LOC: EDUNIT# 21:25 → ER 21:27
DX: M54.5 Low back pain (principal); F41.9 Anxiety disorder, unspecified; F32.9 Major depressive disorder, single episode, unspecified; G47.9 Sleep disorder, unspecified; K59.09 Other constipation; N40.0 Benign prostatic hyperplasia without lower urinary tract symptoms; F03.90 Unspecified dementia, unspecified severity, without behavioral disturbance, psychotic disturbance, mood disturbance, and anxiety; E78.00 Pure hypercholesterolemia, unspecified; I10 Essential (primary) hypertension; Z86.73 Personal history of transient ischemic attack (TIA), and cerebral infarction without residual deficits; Z86.718 Personal history of other venous thrombosis and embolism; Z86.711 Personal history of pulmonary embolism; Z98.890 Other specified postprocedural states; Z88.5 Allergy status to narcotic agent; Z88.8 Allergy status to other drugs, medicaments and biological substances
CPT/HCPCS: 36415; 74177; 80048; 81000; 85025; 96374

== ENCOUNTER → 2017-10-18 | Outpatient (CLI) | payer MEDICARE, OTHER ==
[~2017-10-18] MED LIST changes: +CYCL5TAB PO
[2017-10-18 10:40] LABS: ABG BASE EXCESS 3.1 MMOL/L (-2.5-2.5); ABG OXYGEN SATURATION 96 % (94-100); ABG PCO2 37 MMHG (35-45); ABG PH 7.47 (7.37-7.43); ABG PO2 80 MMHG (79-93); ABG TCO2 27.6 MMOL/L (21.0-31.0)
[2017-10-18 10:46] LABS: ALLENS TEST YES-POS; INSPIRED O2 ROOM AIR; PATIENT TEMP 99.4; VENTILATOR NO
== END ==
LOC: RT 10:13
PROVIDERS: ATTEND Nurse Practitioner Family
DX: R06.00 Dyspnea, unspecified (principal)
CPT/HCPCS: 36600; 82805

== ENCOUNTER → 2017-12-03 | Outpatient (CLI) | payer MEDICARE, OTHER ==
[~2017-12-03] MED LIST changes: +TRAZ-190 PO; -TRAZ100T92 PO
--- NOTE | 2017-12-03 11:41 | Diagnostic Imaging Report ---
PROCEDURE: CT chest without contrast. TECHNIQUE: Multiple contiguous axial images were obtained through the chest without the use of intravenous contrast. INDICATION: Shortness of breath, restrictive lung disease. Comparison is made with the CT chest from 04/20/2015. No axillary lymphadenopathy is identified. No definite hilar or mediastinal lymphadenopathy is detected. There appears to be trace pericardial fluid. No pleural fluid is identified. There is some interstitial scarring in the lung bases bilaterally similar to prior exam. No parenchymal consolidation or mass is seen. Central airways are unremarkable. Upper abdomen appears stable. IMPRESSION: Stable CT of the chest when compared with exam from 04/20/2015. There is a small pericardial effusion. No new abnormality is detected. Dictated by: Dictated on workstation # [id number]
== END ==
LOC: RAD 09:02
PROVIDERS: ATTEND Nurse Practitioner Family
DX: I31.3 Pericardial effusion (noninflammatory) (principal); J98.4 Other disorders of lung
CPT/HCPCS: 71250

== ENCOUNTER → 2018-02-20 | Outpatient (CLI) | payer MEDICARE, OTHER ==
[~2018-02-20] MED LIST changes: -AMLO5TAB2 PO; +AMLO5TAB7 PO; +IOHEXOL 350 MG/ML 150 ML (OMNIPAQUE 350) VIAL IV ONE; +NS 250 ML (IVPB) BAG IV ONE
--- NOTE | 2018-02-20 17:01 | Diagnostic Imaging Report ---
INDICATION: Bilateral leg swelling. Bilateral lower extremity venous Doppler study was performed in the routine fashion with color flow Doppler and waveform analysis. FINDINGS: The common femoral veins, superficial femoral veins, popliteal veins and visualized portion of the tibial veins show normal compressibility and venous flow patterns. There is normal augmentation. IMPRESSION: No evidence of deep vein thrombosis in the major veins of both legs. Dictated by: Dictated on workstation # [id number]
[2018-02-20 17:36] LABS: BUN/CREATININE RATIO 30; CALCIUM 9.3 MG/DL (8.5-10.1); CARBON DIOXIDE 23 MMOL/L (21-32); CHLORIDE 105 MMOL/L (98-107); CREATININE SERUM 0.91 MG/DL (0.60-1.30); GFR ESTIMATED > 60; GLUCOSE 90 MG/DL (70-105); SODIUM 139 MMOL/L (135-145)
--- NOTE | 2018-02-20 18:46 | Diagnostic Imaging Report ---
PROCEDURE: CT angiography of the chest with contrast. TECHNIQUE: Multiple contiguous axial images were obtained through the chest after uneventful bolus administration of intravenous contrast. 2D reconstructed CTA MIP acquisitions were also performed. INDICATION: Lower extremity swelling. Exam compared with a noncontrast enhanced chest CT 12/03/2017. FINDINGS: There is no intraluminal pulmonary arterial filling defect. There were no findings of PE. The aorta is patent and nonaneurysmal. There is no pleural effusion. There is a small pericardial effusion. Anterior thickness 6 mm maximal. Heart size itself was not pathologically enlarged. Lungs reveal some chronic changes of COPD but no focal consolidation. Visualized upper abdomen appeared nonacute. IMPRESSION: Negative for PE. Small pericardial effusion and chronic lung disease. Dictated by: Dictated on workstation # [id number]
== END ==
LOC: RAD 16:29
PROVIDERS: ATTEND Nurse Practitioner Family
DX: M79.89 Other specified soft tissue disorders (principal); J98.4 Other disorders of lung; I31.3 Pericardial effusion (noninflammatory)
CPT/HCPCS: 36415; 71275; 80048; 83880; 93970

== ENCOUNTER → 2018-04-10 | Emergency (ER) | payer MEDICARE, OTHER ==
[~2018-04-10] VITALS: Ht 167.6 cm; Wt 92.1 kg
[~2018-04-10] MED LIST changes: -IOHEXOL 350 MG/ML 150 ML (OMNIPAQUE 350) VIAL IV ONE; -NS 250 ML (IVPB) BAG IV ONE
--- OUTSIDE RECORDS SUMMARY | 2018-04-10 17:48 | XMS REPORT ---
Author Author CONNER ROCHE Organization [facility] Address [address] [place] [address] Care Team Providers Care Molecular Pathologist Name Role Phone CONNER ROCHE Unavailable PROBLEMS Type Condition ICD9-CM Code [id number] Code Onset Dates Condition Status SNOMED Code Problem Color blindness H53.50 Active 352752252 Problem Presbyopia of both eyes H52.4 Active 53566460 Problem Nuclear senile cataract of both eyes H25.13 Active 537161636 Problem Astigmatism of both eyes, unspecified type H52.203 Active 00962169 Problem Essential hypertension I10 Active 91861822 Problem Hypermetropia of both eyes H52.03 Active 46739890 Problem Alzheimer's disease, unspecified G30.9 Active 612788856 Problem 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 Active 294331584 Problem 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 Active 643079607 Problem Other acute pulmonary embolism without acute cor pulmonale I26.99 Active 534503124 Problem 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 Active 228173758 Problem Asymptomatic microscopic hematuria R31.21 Active 431235382 Problem Gait instability R26.81 Active 75811601 Problem Bilateral carotid artery stenosis I65.23 Active 876893912239175 Problem Arthritis, 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 Active 272081620 Problem Renal cyst, left Q61.00 Active 98054618 Problem 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 Active 875388136 Problem Hydrocele, unspecified hydrocele type N43.3 Active 65912266 Problem Chronic fatigue R53.82 Active 62125076 Problem At high risk for falls Z91.81 Active [id number] Problem PVD (peripheral vascular disease) I73.9 Active 289359147 Problem Major depressive disorder, single episode, mild F32.0 Active 92158013 Problem Transient cerebral ischemia, unspecified transient cerebral ischemia type G45.9 Active 862421829 Problem Primary insomnia F51.01 Active 039038772 Problem 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 Active 33073993 Problem Benign non-nodular prostatic hyperplasia with lower urinary tract symptoms N40.1 Active 284295884 Problem Overactive bladder N32.81 Active 705123171 Problem Other chronic pain G89.29 Active 45634055 Problem Mixed hyperlipidemia E78.2 Active 149377799 Problem Anxiety F41.9 Active 09792009 ALLERGIES No Information ENCOUNTERS Encounter Location Date Diagnosis [place] [address] [address]- [address]94 Mar, Renal insufficiency N28.9 [place] [address] 78513- 5314 Mar, Essential hypertension I10 ; Mixed hyperlipidemia E78.2 ; Edema leg R60.0 and Bilateral carotid artery stenosis I65.23 [place] [address] 61754- 3078 Feb, [place] [address] 67593- 4618 Feb, [facility] [address] 78492- 1232 Feb, [place] [address] 10018- 5821 Feb, [place] [address] 85778- 8593 Feb, Encounter for immunization Z23 [facility] [address] 71753- 1004 Jan, Flank pain R10.9 [facility] [address] 04257- 0402 Jan, [facility] [address] 33501- 6014 Dec, [place] [address] 30513- 8089 Dec, [place] [address] [place] [id number] [place] [address] 67396- 1619 Dec, 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 and 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 [place] [address] [place] [id number] [place] [address] 99652- 4519 Dec, Left flank pain R10.9 and Arthritis, 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 [place] [address] 61968- 2244 Dec, [place] [address] 29614- 6328 Nov, Essential hypertension I10 and Mixed hyperlipidemia E78.2 [place] [address] 28703- 0308 Oct, Edema leg R60.0 [place] [address] 13603- 4107 September, [place] [address] 38164- 4788 September, 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 and 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 [place] [address] 51358- 8527 September, PVD (peripheral vascular disease) I73.9 ; Major depressive disorder, single episode, mild F32.0 ; Chronic fatigue R53.82 ; Weight gain R63.5 and Arthralgia, unspecified joint M25.50 [place] [address] [place] [id number] [place] [address] 00866- 0188 Aug, Acute low back pain, unspecified back pain laterality, with sciatica presence unspecified M54.5 [place] [address] 59940- 5353 Aug, Acute low back pain, unspecified back pain laterality, with sciatica presence unspecified M54.5 [place] [address] [place] [address]- 1327 Aug, Pain R52 [facility] [address] [place] [id number] [place] [address] 02221- 3842 Jul, [facility] [address] [place] [id number] [place] [address] 46394- 5389 13 Jun, 2017 [place] [address] 15693- 1848 07 Jun, 2017 Medicare annual wellness visit, initial Z00.00 ; Mixed hyperlipidemia E78.2 ; Essential hypertension I10 ; Anxiety F41.9 ; 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 ; 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 ; Overactive bladder N32.81 ; Primary insomnia F51.01 ; At high risk for falls Z91.81 and Encounter for immunization Z23 [place] [address] [place] [id number] [place] [address] 47031- 6014 May, [place] [address] 01042- 4239 May, Essential hypertension I10 and Transient cerebral ischemia, unspecified transient cerebral ischemia type G45.9 [facility] [address] [place] [id number] [place] [address] [id number] May, Dental examination Z01.20 and Dental caries K02.9 [place] [address] [place] [id number] [place] [address] 83317- 5518 May, [place] [address] [place] [id number] [place] [address] 33652- 5080 May, [facility] [address] [place] [id number] [place] [address] 40199- 9319 May, 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 [facility] [address] [place] [id number] [place] [address] 49064- 2799 Apr, [facility] [address] [place] [id number] [place] [address] 54681- 6522 Apr, 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 and 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 [facility] [address] [place] [id number] [place] [address] 31699- 4986 Mar, 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 [facility] [address] [place] [id number] [place] [address] 51889- 8968 Mar, Mixed hyperlipidemia E78.2 ; Essential hypertension I10 ; Asymptomatic microscopic hematuria R31.21 and Renal cyst, left Q61.00 [facility] [address] [place] [id number] [place] [address] 72368- 4336 Mar, [facility] [address] 58069- 0577 Feb, Encounter for immunization Z23 [facility] [address] 72497- 3322 Feb, [facility] [address] 54419- 6189 Feb, [facility] [address] [place] [id number] [place] [address] 68112 -0340 Feb, ANUG (acute necrotizing ulcerative gingivitis) A69.1 [facility] [address] [place] [id number] [place] [address] 42626- 9688 Feb, [facility] [address] [place] [id number] [place] [address] 24609- 6618 Feb, 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 [facility] [address] [place] [id number] [place] [address] 98317- 1611 Feb, 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 and 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 [facility] [address] [place] [id number] [place] [address] 08238- 1477 Jan, 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 [facility] [address] [place] [id number] [place] [address] 14024- 7251 Jan, Gait instability R26.81 [facility] [address] [id number] [place] [address] Jan [facility] [place] [address] [id number] [place] [address] Dec [facility] [address] [address]- 1696 Dec, [facility] [address] [place] [id number] [place] [address] 86303- 2745 Dec, [facility] [id number] [place] [address] 04246- 5348 Dec, Essential hypertension I10 ; Transient cerebral ischemia, unspecified transient cerebral ischemia type G45.9 and Anxiety F41.9 [facility] [address] [place] [id number] [place] [address] 58442- 1060 Dec, Gait instability R26.81 [facility] [address] [place] [id number] [place] [address] 26687- 2215 Dec, [facility] [address] [place] [id number] [place] [address] 26619- 0848 Nov, 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 and 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 [facility] [address] [address]- 2717 Nov, [facility] [address] [place] [id number] [place] [address] 61977- 5917 Nov, Gait instability R26.81 [facility] [address] [address]- 6631 Nov, Anxiety F41.9 [facility] [address] [place] [id number] [place] [address] 46501- 2635 Nov, [facility] [id number] [place] [address] 40085- 7104 Nov, [facility] [address] [place] [id number] [place] [address] 68617- 2591 Oct, Gait instability R26.81 [facility] [address] [place] [id number] [place] [address] 87190- 5364 14 Oct, 2016 Anxiety F41.9 [facility] [address] [place] [id number] [place] [address] 44799- 5858 13 Oct, 2016 Gait instability R26.81 [facility] [address] [place] [id number] [place] [address] 03904- 2943 Oct, Gait instability R26.81 [facility] [address] [place] [id number] [place] [address] 02574- 5707 Oct, [facility] [address] [place] [id number] [place] [address] 11906- 2892 Oct, Anxiety F41.9 ; Chronic 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 use Z79.899 ; Encounter for immunization Z23 and Transient cerebral ischemia, unspecified transient cerebral ischemia type G45.9 [facility] [address] [place] [id number] [place] [address] 91082- 8502 September, [facility] [address] [place] [id number] [place] [address] 67121- 6178 September, Gait instability R26.81 [facility] [address] [place] [id number] [place] [address] 35382- 2432 September, [facility] [address] [place] [id number] [place] [address] 44923- 4038 September, [facility] [address] [place] [id number] [place] [address] 32778- 4189 September, [facility] [address] [place] [id number] [place] [address] 40630- 6901 September, 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 and 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 [facility] [address] [place] [id number] [address]- 1315 September, [facility] [address] [place] [id number] [address]- 1328 September, [facility] [address] [address]- 4287 September, [facility] [address] [address]- 9455 September, 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 [facility] [address] [address]- 6181 Aug, 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 ; 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 ; Other acute pulmonary embolism without acute cor pulmonale I26.99 and Cough R05 [facility] [address] [address]- 9348 Aug, [facility] [address] [address]- 0551 Aug, Gait instability R26.81 [facility] [address] [address]- 0387 Aug, 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 and 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 [facility] [address] [address]- 7099 Aug, [facility] [address] [address]- 4091 Aug, 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 [facility] [address] [address]- 2754 Jul, 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 [facility] [address] [address]- 5104 Jul, [facility] [address] [address]- 3346 Jul, 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 [facility] [address] [place] [id number] [place] [address] 39131- 6505 Jul, Anxiety F41.9 ; 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 and Transient cerebral ischemia, unspecified transient cerebral ischemia type G45.9 [facility] [address] [place] [id number] [place] [address] 72108- 9287 Jun, Essential hypertension I10 [facility] [address] [place] [id number] [place] [address] 23217- 3880 Jun, [facility] [address] [place] [id number] [place] [address] 86413- 5469 Jun, [facility] [address] [place] [id number] [place] [address] 26480- 4866 Jun, [facility] [address] [place] [id number] [place] [address] 94481- 9933 Jun, Essential hypertension I10 ; Benign non-nodular prostatic hyperplasia with lower urinary tract symptoms N40.1 ; Anxiety F41.9 ; Pain in right knee M25.561 ; Pain in left knee M25.562 and Other chronic pain G89.29 [facility] [address] [place] [id number] [place] [address] 30212- 6028 May, [facility] [address] [place] [id number] [place] [address] 24229- 2390 May, [facility] [address] [place] [id number] [place] [address] 69622- 4113 May, [facility] [address] [place] [id number] [place] [address] 37566- 7307 Apr, [facility] [address] [place] [id number] [place] [address] 87706- 5518 Mar, [facility] [address] [place] [id number] [place] [address] 26744- 7737 Mar, Mixed hyperlipidemia E78.2 and Essential hypertension I10 [facility] [address] [place] [id number] [place] [address] 79898- 6242 Feb, [facility] [id number] [place] [address] 11775- 1247 Feb, Ingrown nail L60.0 and Onychomycosis B35.1 [facility] [address] [place] [id number] [place] [address] 25273- 9198 Feb, Paronychia, left L03.012 [facility] [address] [place] [id number] [place] [address] 22057- 3042 Jan, [facility] [address] [place] [id number] [place] [address] 14292- 1983 Jan, Cramps of right lower extremity R25.2 and Mixed hyperlipidemia E78.2 [facility] [address] [place] [id number] [place] [address] 01146- 7995 Jan, Cramps of right lower extremity R25.2 ; Essential hypertension I10 ; Mixed hyperlipidemia E78.2 ; Chronic 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 use Z79.899 and Claudication I73.9 [facility] [address] [place] [id number] [place] [address] 43619- 0353 Jan, Right leg pain M79.604 [facility] [address] [place] [id number] [place] [address] 88809- 4274 Dec, [facility] [address] [place] [id number] [place] [address] 82959- 5990 Nov, [facility] [address] [place] [id number] [place] [address] 57675- 8337 Nov, [facility] [address] [place] [id number] [place] [address] 97196- 4229 Nov, [facility] [address] [place] [id number] [place] [address] 81894- 4613 Nov, Dermatofibroma D23.9 [facility] [id number] [place] [address] 46020- 1509 Nov, [facility] [address] [address]- 0802 Oct, [facility] [address] [place] [id number] [place] [address] 26350- 3969 Oct, [facility] [address] [place] [id number] [place] [address] 22081- 0079 September, Benign non-nodular prostatic hyperplasia with lower urinary tract symptoms N40.1 ; Essential hypertension I10 ; Overactive bladder N32.81 and Fatigue, unspecified type R53.83 [facility] [address] [place] [id number] [place] [address] 51380- 8626 September, [facility] [address] [place] [id number] [place] [address] 79045- 2734 September, [facility] [address] [place] [id number] [place] [address] 92204- 7210 Aug, [facility] [address] [place] [id number] [place] [address] 24828- 4353 Jul, [facility] [address] [place] [id number] [place] [address] 92163- 1584 Jul, Pelvic pain R10.2 ; Jock itch B35.6 ; Essential hypertension I10 and Hydrocele, unspecified hydrocele type N43.3 [facility] [address], [place] [address]- 4160 Jun, [facility] [address], [place] [address]- 3196 Jun, [facility] [address] [address]- 3963 Jun, Benign non-nodular prostatic hyperplasia with lower urinary tract symptoms N40.1 [facility] [id number] [place] [address] 24237- 4446 Jun, Benign non-nodular prostatic hyperplasia with lower urinary tract symptoms N40.1 [facility] [address] [place] [id number] [place] [address] 51578- 8456 Jun, [facility] [address] [place] [id number] [place] [address] 72392- 0505 May, [facility] [address] [place] [id number] [place] [address] 35710- 0197 Apr, [facility] [address] [place] [id number] [place] [address] 50958- 3586 Apr, [facility] [address] [id number] [place] [address] 96189- 3111 Apr, Other acute pulmonary embolism without acute cor pulmonale I26.99 ; Anxiety F41.9 ; 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 and longterm 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 use Z79.899 [facility] [address] [id number] [place] [address] 94219- 7873 Apr, [facility] [address] [place] [id number] [place] [address] 23830- 1199 Apr, [facility] [address] [id number] [place] [address] 73067- 9755 Mar, [facility] [id number] [place] [address] 09289- 1356 Mar, [facility] [id number] [place] [address] 64463- 9964 Feb, Cough R05 [facility] [id number] [place] [address] 82553- 7346 Feb, [facility] [id number] [place] [address] 33400- 9067 Feb, Encounter for immunization Z23 [facility] [id number] [place] [address] 88906- 7824 Feb, Other and unspecified hyperlipidemia 272.4 [facility] [id number] [place] [address] 36407- 9919 Jan, [facility] [address] [place] [address]- 6672 Jan, TIA (transient ischemic attack) 435.9 [facility] [id number] [place] [address] 84709- 1438 Dec, [facility] [id number] [address]- 7218 Dec, [facility] [id number] [place] [address] 17281- 1243 Dec, [facility] [id number] [place] [address] 21358- 2042 Nov, [facility] [id number] [place] [address] 28711- 6203 Oct, Chronic cough 786.2 [facility] [id number] [place] [address] 66366- 2862 Oct, [facility] [id number] [place] [address] 01106- 9239 Oct, [facility] [id number] [place] [address] 15020- 9890 Oct, [facility] [id number] [place] [address] 34583- 1948 Oct, [facility] [address] [address]- 6641 Oct, Chronic cough 786.2 [facility] [id number] [place] [address] 72638- 2534 Oct, Cough 786.2 ; Hypertension 401.9 ; BPH (benign prostatic hyperplasia) 600.00 ; Other and unspecified hyperlipidemia 272.4 and Hydrocele 603.9 [facility] [id number]- 3701 Oct, [facility] [id number] [address]- 7353 September, [facility] [address] [place] [address] [id number] [place] [address]- 5784 14 Aug, 2014 [facility] [place] [facility] [address] [id number] [place] [address]- 8513 13 Aug, 2014 [facility] [place] [facility] [address] [facility] [id number] [place] [address]- 4436 Jul, [facility] [place] [facility] [address] [facility] [id number] [place] [address]- 0665 Jul, [facility] [place] [facility] [address] [facility] [id number] [place] [address]- 6185 Jul, [facility] [place] [facility] [address] [facility] [id number] [place] [address]- 2482 Jul, [facility] [place] [facility] [address] [facility] [id number] [place] [address]- 2101 Jul, [facility] [place] [facility] [address] [id number] [place] [address] Jun, 2014 [facility] [place] [facility] [address] [facility] [id number] [place] [address] Jun, 2014 [facility] [place] [facility] [id number] [place] [address] Jun, 2014 [facility] [place] [facility] [address] [id number] [place] [address] Jun, 2014 [facility] [place] [facility] [id number] [place] [address] Jun, 2014 [facility] [place] [facility] [address] [facility] [id number] [address] Jun, 2014 [facility] [place] [facility] [address] [facility] [id number] [place] [address] Jun, 2014 [facility] [place] [facility] [address] [facility] [id number] [address] Jun, 2014 [facility] [place] [facility] [address] [id number] [address] May, [facility] [place] [facility] [address] [id number] [place] [address] May, [facility] [place] [facility] [address] [id number] [place] [address] May, [facility] [place] [facility] [address] [id number] [place] [address] 96[address] May, [facility] [place] [facility] [address] [id number] [place] [address]- 9568 May, [facility] [place] [facility] [address] [id number] [place] [address] 5738 May, [facility] [place] [facility] [address] [id number] [place] [address]- 3765 May, [facility] [place] [facility] [address] [id number] [place] [address]- 0734 May, [facility] [place] [facility] [address] [id number] [address] May, [facility] [place] [facility] [address] [id number] [place] [address] 3323 May, [facility] [place] [facility] [address] [id number] [place] [address]- 5156 Apr, [facility] [place] [facility] [address] [id number] [address] Apr, [facility] [place] [facility] [address] [id number] [address] Apr, [facility] [place] [facility] [address] [id number] [place] [address]- 4018 Apr, [facility] [place] [facility] [address] [id number] [address] Apr, [facility] [place] [facility] [address] [id number] [place] [address]- 0669 Apr, [facility] [place] [facility] [address] [id number] [place] [address]- 0230 Apr, [facility] [place] [facility] [address] [id number] [place] [address]- 5019 Apr, [facility] [place] [facility] [address] [id number] [place] [address]- 5058 Mar, [facility] [place] [facility] [address] [id number] [place] [address]- 1772 Mar, [facility] [place] [facility] [address] [id number] [place] [address]- 8852 Mar, [facility] [place] [facility] [address] [id number] [place] [address]- 1478 Mar, [facility] [place] [facility] [address] [id number] [place] [address]- 6367 Mar, [facility] [place] [facility] [address] [id number] [place] [address]- 8614 Mar, [facility] [place] [facility] [address] [id number] [place] [address]- 5522 Mar, [facility] [place] [facility] [address] [id number] [place] [address]- 5242 Mar, [facility] [place] [facility] [address] [facility] [id number] [place] [address]- 8461 Mar, [facility] [place] [facility] [address] [id number] [place] [address]- 9620 Mar, [facility] [place] [facility] [address] [id number] [place] [address]- 8516 Feb, [facility] [place] [facility] [address] [id number] [place] [address]- 0766 Feb, [facility] [place] [facility] [address] [id number] [place] [address]- 8604 Feb, [facility] [place] [facility] [address] [id number] [place] [address]- 1999 Feb, [facility] [place] [facility] [address] [id number] [place] [address]- 7996 14 Feb, 2014 [facility] [place] [facility] [address] [id number] [place] [address]- 8576 14 Feb, 2014 [facility] [place] [facility] [address] [id number] [place] [address]- 1688 30 Jan, 2013 [facility] [place] [facility] [address] [id number] [place] [address]- 7754 30 Jan, 2013 [facility] [place] [facility] [address] [id number] [place] [address]- 6262 24 Jan, 2013 [facility] [place] [facility] [address] [id number] [place] [address]- 7817 24 Jan, 2013 [facility] [place] [facility] [address] [id number] [place] [address]- 5423 19 Jan, 2013 [facility] [place] [facility] [address] [id number] [place] [address]- 8289 19 Jan, 2013 [facility] [place] [facility] [address] [id number] [place] [address]- 6272 16 Jan, 2013 [facility] [place] [facility] [address] [id number] [place] [address]- 7789 16 Jan, 2013 [facility] [place] [facility] [address] [id number] [place] [address]- 0786 16 Jan, 2013 [facility] [place] [facility] [address] [id number] [place] [address]- 9194 16 Jan, 2013 [facility] [place] [facility] [address] [id number] [place] [address]- 2542 12 Jan, 2013 [facility] [place] [facility] [address] [id number] [place] [address]- 2543 12 Jan, 2013 [facility] [place] [facility] [address] [id number] [place] [address]- 6998 25 Dec, 2013 [facility] [place] [facility] [address] [id number] [place] [address]- 0961 Dec, [facility] [place] [facility] [address] [id number] [place] [address]- 3612 Dec, [facility] [place] [facility] [address] [id number] [place] [address]- 8731 Dec, [facility] [place] [facility] [address] [id number] [place] [address]- 0158 Dec, [facility] [place] [facility] [address] [id number] [place] [address]- 7599 Dec, [facility] [place] [facility] [address] [id number] [place] [address]- 6260 Nov, [facility] [place] [facility] [address] [id number] [place] [address]- 9834 Nov, [facility] [place] [facility] [address] [id number] [place] [address]- 9726 Nov, [facility] [place] [facility] [address] [id number] [place] [address]- 1810 Nov, [facility] [place] [facility] [address] [id number] [place] [address]- 9806 Nov, [facility] [place] [facility] [address] [id number] [place] [address]- 0950 Nov, [facility] [place] [facility] [address] [id number] [place] [address]- 8811 Nov, [facility] [place] [facility] [address] [id number] [place] [address]- 7673 Nov, [facility] [place] [facility] [address] [id number] [place] [address]- 5128 Oct, [facility] [place] [facility] [address] [id number] [place] [address]- 9954 Oct, [facility] [place] [facility] [address] [id number] [place] [address]- 1192 Oct, [facility] [place] [facility] [address] [id number] [place] [address] 1927 Oct, [facility] [address] [id number] [place] [address]- 7047 September, [facility] [place] [facility] [address] [id number] [place] [address]- 9012 September, [facility] [address] [id number] [place] [address]- 6565 September, [facility] [address] [id number] [place] [address]- 7042 September, [facility] [address] [id number] [place] [address] September, [facility] [address] [id number] [place] [address]- 6691 September, [facility] [address] [id number] [place] [address]- 7882 Aug, [facility] [address] [id number] [place] [address]- 1371 Aug, [facility] [place] [facility] [address] [id number] [place] [address]- 7282 Aug, [facility] [address] [id number] [place] [address]- 4147 Aug, [facility] [place] [facility] [address] [id number] [place] [address]- 1600 Aug, [facility] [place] [facility] [address] [id number] [place] [address]- 7301 Aug, [facility] [place] [facility] [address] [id number] [place] [address] Aug, [facility] [place] [facility] [address] [id number] [place] [address] Aug, [facility] [place] [facility] [address] [id number] [place] [address] Jul, [facility] [place] [facility] [address] [id number] [place] [address]- 3379 Jul, [facility] [place] [facility] [address] [id number] [place] [address]- 2017 Jun, [facility] [place] [facility] [address] [id number] [place] [address]- 3601 Jun, [facility] [place] [facility] [address] [id number] [place] [address]- 6837 Jun, [facility] [place] [facility] [address] [id number] [place] [address]- 1053 Jun, [facility] [place] [facility] [address] [id number] [place] [address]- 8489 Jun, [facility] [place] [facility] [address] [id number] [place] [address]- 4847 May, [facility] [place] [facility] [address] [id number] [place] [address]- 4092 May, [facility] [place] [facility] [address] [id number] [place] [address]- 3532 May, [facility] [place] [facility] [address] [id number] [place] [address]- 4862 May, [facility] [place] [facility] [address] [id number], [place] [address]- 4747 Apr, [facility] [place] [facility] [address] [id number], [place] [address]- 0475 Apr, [facility] [place] [facility] [address] [id number] [place] [address]- 2479 Mar, [facility] [place] [facility] [address] [id number] [place] [address]- 5228 Mar, [facility] [place] [facility] [address] [id number] [place] [address]- 6372 Feb, [facility] [place] [facility] [address] [id number] [place] [address]- 7363 Feb, [facility] [address] [id number] [place] [address]- 5542 Feb, [facility] [place] [facility] [address] [id number] [place] [address]- 0083 Feb, [facility] [address] [id number] [place] [address]- 1639 Feb, [facility] [address] [id number] [place] [address]- 9939 Feb, [facility] [address] [id number] [place] [address]- 8809 Feb, [facility] [address] [id number] [place] [address]- 5190 Jan, [facility] [address] [id number] [place] [address]- 2923 Jan, [facility] [address] [id number] [place] [address]- 4145 Dec, [facility] [place] [facility] [address] [id number] [place] [address]- 3098 Dec, [facility] [address] [id number] [place] [address]- 4429 Dec, [facility] [place] [facility] [address] [id number] [place] [address]- 5072 Dec, [facility] [place] [facility] [address] [id number] [place] [address]- 6010 Dec, [facility] [place] [facility] [address] [id number] [place] [address]- 2197 Nov, [facility] [place] [facility] [address] [id number] [place] [address]- 2549 Nov, [facility] [place] [facility] [address] [id number] [place] [address]- 4891 Nov, [facility] [place] [facility] [address] [id number] [place] [address]- 1493 Oct, [facility] [place] [facility] [address] [id number] [place] [address]- 6676 Oct, [facility] [place] [facility] [address] [id number] [place] [address]- 5405 Oct, [facility] [place] [facility] [address] [id number] [place] [address]- 1696 September, [facility] [address] [id number] [place] [address]- 1678 Aug, [facility] [place] [facility] [address] [id number] [place] [address]- 5426 Aug, [facility] [place] [facility] [address] [id number] [place] [address]- 3349 Aug, [facility] [place] [facility] [address] [id number] [place] [address]- 9567 Jul, [facility] [place] [facility] [address] [id number] [place] [address]- 5452 Jul, [facility] [place] [facility] [address] [id number] [place] [address]- 2225 Jul, [facility] [place] [facility] [address] [id number] [place] [address]- 8801 Jul, [facility] [place] [facility] [address] [id number] [address]- 5689 Jul, [facility] [place] [facility] [address] [id number] [place] [address]- 1570 Jun, [facility] [place] [facility] [address] [id number] [place] [address]- 0786 Jun, [facility] [place] [facility] [address] [id number], [place] [address]- 5139 May, [facility] [place] [facility] [address] [id number], [place] [address] 2546 May, [facility] [place] [facility] [address] [id number] [place] [address]- 8876 Apr, [facility] [place] [facility] [address] [facility] [id number], [place] [address]- 2546 Apr, [facility] [place] [facility] [address] [id number] [place] [address]- 2546 Mar, [facility] [place] [facility] [address] [facility] [id number], [place] [address] 2546 Mar, [facility] [place] [facility] [address] [id number] [address]- 8496 Mar, [facility] [place] [facility] [address] [id number] [place] [address]- 2546 Mar, [facility] [place] [id number] [id number] Feb, [facility] [place] [facility] [address] [id number] [address]- 6118 Feb, [facility] [place] [facility] [address] [id number] [address]- 2776 Feb, [facility] [place] [facility] [address] [id number] [address]- 4186 Feb, [facility] [place] [facility] [address] [id number], [place] [address]- 8496 Feb, [facility] [place] [facility] [address] [id number], [place] [address]- 2546 Feb, [facility] [place] [facility] [address] [id number], [place] [address]- 2546 Feb, [facility] [place] [facility] [address] [facility] [id number], [place] [address]- 2546 Jan, [facility] [place] [facility] [address] [facility] [id number] [address]- 2546 Jan, [facility] [place] [facility] [address] [id number] [place] [address] 2545 Dec, [facility] [address] [id number] [place] [address]- 1686 Dec, [facility] [address] [id number] [place] [address]- 3848 Nov, [facility] [address] [id number] [place] [address]- 9631 Oct, [facility] [address] [id number] [place] [address] 2546 September, [facility] [address] [id number] [place] [address]- 8436 September, [facility] [address] [id number] [place] [address]- 5216 September, [facility] [address] [id number] [place] [address]- 5127 Aug, [facility] [address] [id number] [place] [address]- 6984 May, [facility] [address] [id number] [place] [address]- 8899 May, [facility] [address] [id number] [place] [address]- 3977 Apr, [facility] [address] [id number] [place] [address]- 9162 Apr, [facility] [address] [id number] [place] [address]- 1102 Apr, [facility] [address] [id number] [place] [address]- 5194 Apr, [facility] [address] [id number] [place] [address]- 2546 Apr, [facility] [address] [id number] [place] [address]- 4668 Mar, [facility] [address] [facility] [id number], [place] [address]- 4109 Feb, [facility] [address] [id number] [address]- 6423 Feb, [facility] [address] [id number] [address]- 5709 September, [facility] [id number] [address]- 3908 Mar, [facility] [address] [id number] [address]- 1509 Feb, [facility] [id number] [address]- 4144 Feb, [facility] [address] [id number] [address]- 0743 Feb, IMMUNIZATIONS No Known Immunizations SOCIAL HISTORY Never Assessed REASON FOR VISIT Lab results PLAN OF CARE VITAL SIGNS MEDICATIONS Unknown [...] 2012 Medical History BPH Medical History Anxiety Medical History COPD Surgical History Hernia repair Surgical History right middle finger surgery for fx repair 1998 Surgical History surgery on sternum for fluid removal Hospitalization History foot fracture Hospitalization History [facility]- Back Pain 03/24/2017
--- OUTSIDE RECORDS SUMMARY | 2018-04-10 17:49 | XMS REPORT ---
Author Author CONNER ROCHE Organization [facility] Address [address] [place] [address] Care Team Providers Care Filtrose Crusher Name Role Phone CONNER ROCHE Unavailable PROBLEMS Type Condition ICD9-CM Code JRV88-RU Code Onset Dates Condition Status SNOMED Code Problem Color blindness H53.50 Active 018535169 Problem Presbyopia of both eyes H52.4 Active 14009141 Problem Nuclear senile cataract of both eyes H25.13 Active 042602210 Problem Astigmatism of both eyes, unspecified type H52.203 Active 27461841 Problem Essential hypertension I10 Active 05178268 Problem Hypermetropia of both eyes H52.03 Active 01782825 Problem Alzheimer's disease, unspecified G30.9 Active 349097327 Problem 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 Active 516509284 Problem 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 Active 624559699 Problem Other acute pulmonary embolism without acute cor pulmonale I26.99 Active 228715166 Problem 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 Active 606108778 Problem Asymptomatic microscopic hematuria R31.21 Active 301618370 Problem Gait instability R26.81 Active 39973075 Problem Bilateral carotid artery stenosis I65.23 Active 981963633211965 Problem Arthritis, 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 Active 092385608 Problem Renal cyst, left Q61.00 Active 47908785 Problem 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 Active 655966080 Problem Hydrocele, unspecified hydrocele type N43.3 Active 26072719 Problem Chronic fatigue R53.82 Active 90526639 Problem At high risk for falls Z91.81 Active [id number] Problem PVD (peripheral vascular disease) I73.9 Active 615765788 Problem Major depressive disorder, single episode, mild F32.0 Active 91615385 Problem Transient cerebral ischemia, unspecified transient cerebral ischemia type G45.9 Active 593618709 Problem Primary insomnia F51.01 Active 522067180 Problem 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 Active 75228402 Problem Benign non-nodular prostatic hyperplasia with lower urinary tract symptoms N40.1 Active 054792747 Problem Overactive bladder N32.81 Active 259712623 Problem Other chronic pain G89.29 Active 46910596 Problem Mixed hyperlipidemia E78.2 Active 383615632 Problem Anxiety F41.9 Active 29565797 ALLERGIES No Information ENCOUNTERS Encounter Location Date Diagnosis [place] [address] [address] Mar, Essential hypertension I10 ; Mixed hyperlipidemia E78.2 ; Edema leg R60.0 and Bilateral carotid artery stenosis I65.23 [place] [address] [address]- [address] 24 Feb, 2018 [place] [address] [address]- [address] Feb, [place] [address] [address]- [address]40 Feb, [place] [address] [address]- [address] Feb, [place] [address] 24322- 3510 02 Feb, 2018 Encounter for immunization Z23 [facility] [place] [address] [address]- [address] 07 Jan, 2018 Flank pain R10.9 [facility] [address] [address]- [address] 06 Jan, 2018 [facility] [address] 45285- 0139 Dec, [facility] [address] 24606- 4050 Dec, [facility] [address] 06[address]- [address] Dec, 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 and 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 [place] [address] [place] [id number] [place] [address] 56255- 3724 Dec, Left flank pain R10.9 and Arthritis, 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 [place] [address] [place] [id number] [place] [address] 01646- 4011 Dec, [place] [address] 76571- 1354 Nov, Essential hypertension I10 and Mixed hyperlipidemia E78.2 [place] [address] 12673- 8695 Oct, Edema leg R60.0 [place] [address] [place] [id number] [place] [address] 44339- 1041 September, [place] [address] [place] [id number] [place] [address] 77886- 7790 September, 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 and 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 [place] [address] [place] [id number] [place] [address] 93681- 4063 September, PVD (peripheral vascular disease) I73.9 ; Major depressive disorder, single episode, mild F32.0 ; Chronic fatigue R53.82 ; Weight gain R63.5 and Arthralgia, unspecified joint M25.50 [place] [address] [place] [id number] [place] [address] 96409- 3028 Aug, Acute low back pain, unspecified back pain laterality, with sciatica presence unspecified M54.5 [place] [address] [place] [id number] [place] [address] 41372- 4426 Aug, Acute low back pain, unspecified back pain laterality, with sciatica presence unspecified M54.5 [place] [address] [place] [id number] [place] [address] 29539- 2707 Aug, Pain R52 [place] [address] 9[address]28- 3102 Jul, [place] [address] [place] [address] 09749- 1296 Jun, [place] [address] [place] [id number] [place] [address] 38895- 1423 07 Jun, 2017 Medicare annual wellness visit, initial Z00.00 ; Mixed hyperlipidemia E78.2 ; Essential hypertension I10 ; Anxiety F41.9 ; 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 ; 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 ; Overactive bladder N32.81 ; Primary insomnia F51.01 ; At high risk for falls Z91.81 and Encounter for immunization Z23 [place] [address] [place] [id number] [place] [address] 37566- 9496 May, [place] [address] [place] [id number] [place] [address] 02740- 3117 May, Essential hypertension I10 and Transient cerebral ischemia, unspecified transient cerebral ischemia type G45.9 [facility] [address] [place] [address] [id number] May, Dental examination Z01.20 and Dental caries K02.9 [place] [address] [place] [id number] [place] [address] 30704- 7330 May, [place] [address] [place] [id number] [place] [address] 18288- 9528 May, [place] [address] [place] [id number] [place] [address] 14911- 9084 May, 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 [place] [address] [place] [id number] [place] [address] 39467- 0605 Apr, [place] [address] [place] [id number] [place] [address] 25711- 9815 Apr, 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 and 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 [place] [address] [place] [id number] [place] [address] 80887- 2059 Mar, 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 [facility] [address] [place] [id number] [place] [address] 51378- 7885 Mar, Mixed hyperlipidemia E78.2 ; Essential hypertension I10 ; Asymptomatic microscopic hematuria R31.21 and Renal cyst, left Q61.00 [place] [address] [place] [id number] [place] [address] 11602- 0867 Mar, [facility] [address] [place] [id number] [place] [address] 95525- 8509 Feb, Encounter for immunization Z23 [place] [address] 47033- 0539 Feb, [facility] [address] [place] [id number] [place] [address] 77406- 2829 Feb, [facility] [address] [place] [id number] [place] [address] 55150 -8681 Feb, ANUG (acute necrotizing ulcerative gingivitis) A69.1 [facility] [address] [place] [id number] [place] [address] 13917- 3818 Feb, [facility] [address] [place] [id number] [place] [address] 50625- 1161 Feb, 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 [facility] [address] [place] [address] 71619- 3753 Feb, 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 and 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 [facility] [address] [place] [address] 63935- 2885 Jan, 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 [facility] [address] [place] [address] 88250- 9167 18 Jan, 2017 Gait instability R26.81 [facility] [employer] [employer] [id number] [place] [address] Jan [facility] [address] [place] [address] [id number] [place] [address] Dec [facility] [address] [place] [address] 56078- 8200 Dec, [facility] [address] [place] [address] 90062- 5854 Dec, [facility] [address] [place] [id number] [place] [address] 76788- 5687 Dec, Essential hypertension I10 ; Transient cerebral ischemia, unspecified transient cerebral ischemia type G45.9 and Anxiety F41.9 [facility] [address] [place] [id number] [place] [address] 69434- 0625 Dec, Gait instability R26.81 [facility] [place] [address] [place] [id number] [place] [address] 97634- 6984 Dec, [facility] [place] [address] [place] [id number] [place] [address] 24046- 1713 Nov, 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 and 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 [facility] [place] [address] [place] [address] 71628- 4775 Nov, [facility] [place] [address] [place] [address] 35944- 9152 Nov, Gait instability R26.81 [facility] [place] [address] [place] [address] 83684- 3903 Nov, Anxiety F41.9 [facility] [place] [address] [address]- 2045 Nov, [facility] [address] [place] [address] 49450- 4846 Nov, [facility] [place] [address] [place] [address] 93417- 4790 Oct, Gait instability R26.81 [facility] [place] [address] [place] [id number] [place] [address] 63488- 3734 14 Oct, 2016 Anxiety F41.9 [facility] [place] [address] [place] [id number] [place] [address] 66365- 9136 13 Oct, 2016 Gait instability R26.81 [facility] [place] [address] [place] [id number] [place] [address] 61782- 6922 12 Oct, 2016 Gait instability R26.81 [facility] [place] [address] [place] [id number] [place] [address] 32124- 8888 Oct, [facility] [address] [place] [id number] [place] [address] 44573- 7296 Oct, Anxiety F41.9 ; Chronic 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 use Z79.899 ; Encounter for immunization Z23 and Transient cerebral ischemia, unspecified transient cerebral ischemia type G45.9 [facility] [address] [place] [id number] [place] [address] 60917- 3999 September, [facility] [address] [place] [id number] [place] [address] 82890- 3392 September, Gait instability R26.81 [facility] [address] [place] [id number] [place] [address] 81250- 6372 September, [facility] [address] [place] [id number] [place] [address] 81358- 6359 September, [facility] [address] [place] [id number] [place] [address] 61567- 6494 September, [facility] [address] [place] [id number] [place] [address] 64222- 4884 September, 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 and 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 [facility] [address] [place] [id number] [place] [address] 33949- 6609 September, [facility] [address] [place] [id number] [place] [address] 91198- 6167 September, [facility] [address] [place] [id number] [place] [address] 38431- 4984 September, [facility] [address] [place] [id number] [address]- 1748 September, 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 [facility] [address] [place] [id number] [address]- 5786 Aug, 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 ; 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 ; Other acute pulmonary embolism without acute cor pulmonale I26.99 and Cough R05 [facility] [address] [place] [id number] [address]- 7478 Aug, [facility] [address] [place] [id number], [place] [address]- 8876 Aug, Gait instability R26.81 [facility] [address] [place] [id number] [address]- 9158 Aug, 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 and 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 [facility] [address], [place] [address]- 3669 Aug, [facility] [address] [place] [id number], [place] [address]- 7990 Aug, 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 [facility] [address] [place] [id number], [place] [address]- 7270 Jul, 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 [facility] [address] [place] [id number], [place] [address]- 9740 Jul, [facility] [address] [place] [id number] [address]- 2042 Jul, 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 [facility] [address] [place] [id number], [place] [address]- 0196 Jul, Anxiety F41.9 ; 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 and Transient cerebral ischemia, unspecified transient cerebral ischemia type G45.9 [facility] [address] [place] [id number] [place] [address] 03009- 5018 Jun, Essential hypertension I10 [facility] [address] [place] [id number] [place] [address] 15055- 9163 Jun, [facility] [address] [place] [id number] [place] [address] 98341- 0100 Jun, [facility] [address] [place] [id number] [place] [address] 75553- 6191 Jun, [facility] [address] 07398- 3885 Jun, Essential hypertension I10 ; Benign non-nodular prostatic hyperplasia with lower urinary tract symptoms N40.1 ; Anxiety F41.9 ; Pain in right knee M25.561 ; Pain in left knee M25.562 and Other chronic pain G89.29 [facility] [address] [place] [id number] [place] [address] 49740- 1162 May, [facility] [address] [place] [id number] [place] [address] 25513- 2281 May, [facility] [address] [place] [id number] [place] [address] 36876- 2966 May, [facility] [address] [place] [id number] [place] [address] 26264- 5448 Apr, [facility] [address] [place] [id number] [place] [address] 42224- 9038 Mar, [facility] [address] [place] [id number] [place] [address] 29127- 2209 Mar, Mixed hyperlipidemia E78.2 and Essential hypertension I10 [facility] [address] [place] [id number] [place] [address] 19079- 6058 Feb, [facility] [address] [place] [id number] [place] [address] 95754- 3871 Feb, Ingrown nail L60.0 and Onychomycosis B35.1 [facility] [address] [place] [id number] [place] [address] 77522- 7286 Feb, Paronychia, left L03.012 [facility] [address] [place] [id number] [place] [address] 63121- 0958 Jan, [facility] [address] 48486- 3392 Jan, Cramps of right lower extremity R25.2 and Mixed hyperlipidemia E78.2 [facility] [address] 59780- 4851 Jan, Cramps of right lower extremity R25.2 ; Essential hypertension I10 ; Mixed hyperlipidemia E78.2 ; Chronic 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 use Z79.899 and Claudication I73.9 [facility] [address] 00799- 5603 Jan, Right leg pain M79.604 [facility] [address] [place] [id number] [place] [address] 88340- 4923 Dec, [facility] [address] [place] [id number] [place] [address] 12007- 2879 Nov, [facility] [address] [place] [id number] [place] [address] 18971- 9017 Nov, [facility] [address] [place] [id number] [place] [address] 73981- 8697 Nov, [facility] [address] [place] [id number] [place] [address] 80617- 1942 Nov, Dermatofibroma D23.9 [facility] [address] [place] [id number] [place] [address] 31610- 0649 Nov, [facility] [place] [address] [place] [id number] [place] [address] 65159- 3972 Oct, [facility] [address] [place] [address]- 1976 Oct, [facility] [address] [place] [id number] [place] [address] 79516- 6125 September, Benign non-nodular prostatic hyperplasia with lower urinary tract symptoms N40.1 ; Essential hypertension I10 ; Overactive bladder N32.81 and Fatigue, unspecified type R53.83 [facility] [place] [address] [place] [id number] [place] [address] 25959- 4671 September, [facility] [place] [address] [place] [id number] [place] [address] 67169- 4414 September, [facility] [place] [address] [place] [id number] [place] [address] 31639- 8252 Aug, [facility] [place] [address] [place] [id number] [place] [address] 00826- 3927 Jul, [facility] [place] [address] [place] [id number] [place] [address] 56060- 7006 Jul, Pelvic pain R10.2 ; Jock itch B35.6 ; Essential hypertension I10 and Hydrocele, unspecified hydrocele type N43.3 [facility] [place] [address] [place] [id number] [place] [address] 23959- 1970 Jun, [facility] [place] [address] [place] [id number] [place] [address] 70529- 5472 Jun, [facility] [place] [address] [place] [id number] [place] [address] 07937- 7253 Jun, Benign non-nodular prostatic hyperplasia with lower urinary tract symptoms N40.1 [facility] [place] [address] [place] [id number] [place] [address] 62020- 8523 Jun, Benign non-nodular prostatic hyperplasia with lower urinary tract symptoms N40.1 [facility] [place] [address] [place] [id number] [place] [address] 00994- 7826 Jun, [facility] [place] [address] [place] [address] [id number] [place] [address] 81384- 0228 May, [facility] [place] [address] [place] [address] 63034- 6833 Apr, [facility] [address] [place] [id number] [place] [address] 55935- 2882 Apr, [facility] [address] [place] [id number] [place] [address] 47607- 0510 Apr, Other acute pulmonary embolism without acute cor pulmonale I26.99 ; Anxiety F41.9 ; 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 and penitentiary 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 use Z79.899 [facility] [address] [id number] [place] [address] 62904- 4645 Apr, [facility] [address] [place] [id number] [place] [address] 22809- 5888 Apr, [facility] [address] [id number] [place] [address] 30661- 3560 Mar, [facility] [id number] [place] [address] 32615- 7293 Mar, [facility] [id number] [place] [address] 58343- 2150 Feb, Cough R05 [facility] [id number] [place] [address] 72238- 8125 Feb, [facility] [id number] [place] [address] 04363- 4714 Feb, Encounter for immunization Z23 [facility] [id number] [place] [address] 98251- 3892 Feb, Other and unspecified hyperlipidemia 272.4 [facility] [id number] [place] [address] 24401- 1487 Jan, [facility] [id number] [place] [address] 64854- 4751 Jan, TIA (transient ischemic attack) 435.9 [facility] [id number] [address]- 5509 Dec, [facility] [address] [id number] [address] Dec, [facility] [place] [id number], [place] [address] Dec, [facility] [place] [id number] [place] [address]- 4994 Nov, [facility] [place] [id number] [place] [address]- 7505 Oct, Chronic cough 786.2 [facility] [place] [id number] [place] [address]- 9686 Oct, [facility] [place] [id number], [place] [address] 0800 Oct, [facility] [place] [id number] [place] [address]- 8476 Oct, [facility] [place] [id number], [place] [address] Oct, [facility] [place] [id number], [place] [address] 4141 Oct, Chronic cough 786.2 [facility] [place] [id number], [place] [address] 8100 Oct, Cough 786.2 ; Hypertension 401.9 ; BPH (benign prostatic hyperplasia) 600.00 ; Other and unspecified hyperlipidemia 272.4 and Hydrocele 603.9 [facility] [place] [id number], [place] [address] 75[address] Oct, [facility] [place] [id number], [place] [address] 38[address] September, [facility] [place] [id number], [place] [address]- 1109 Aug, [facility] [place] [id number], [place] [address]- 7798 13 Aug, 2014 [facility] [place] [facility] [address] [id number] [place] [address]- 2536 Jul, [facility] [place] [facility] [address] [facility] [id number] [place] [address]- 3494 Jul, [facility] [place] [facility] [address] [facility] [id number] [place] [address]- 0544 Jul, [facility] [place] [facility] [address] [facility] [id number] [place] [address]- 8866 Jul, [facility] [place] [facility] [address] [facility] [id number] [place] [address]- 5194 Jul, [facility] [place] [facility] [address] [facility] [id number] [place] [address]- 0523 Jun, 2014 [facility] [place] [facility] [id number] [address]- 50[address] Jun, 2014 [facility] [place] [facility] [address] [facility] [id number] [place] [address]- 7422 Jun, [facility] [place] [facility] [address] [facility] [id number] [place] [address]- 8605 Jun, 2014 [facility] [place] [facility] [address] [facility] [id number] [place] [address]- 6242 Jun, [facility] [place] [facility] [address] [id number] [address]- 5245 Jun, 2014 [facility] [place] [facility] [address] [facility] [id number] [place] [address]- 7279 Jun, 2014 [facility] [place] [facility] [address] [facility] [id number] [place] [address]- 6912 Jun, [facility] [place] [facility] [address] [facility] [id number] [place] [address]- 3484 May, [facility] [place] [facility] [address] [facility] [id number] [place] [address]- 2987 May, [facility] [place] [facility] [address] [id number] [place] [address]- 2772 May, [facility] [place] [facility] [address] [id number] [place] [address]- 0495 May, [facility] [place] [facility] [address] [id number] [place] [address]- 7044 May, [facility] [place] [facility] [address] [id number] [place] [address]- 7090 May, [facility] [place] [facility] [address] [id number] [place] [address]- 9896 May, [facility] [place] [facility] [address] [id number] [place] [address]- 1057 May, [facility] [place] [facility] [address] [id number] [place] [address]- 2941 May, [facility] [place] [facility] [address] [id number] [place] [address]- 1934 May, [facility] [place] [facility] [address] [id number] [place] [address]- 2655 Apr, [facility] [place] [facility] [address] [id number] [place] [address]- 1156 Apr, [facility] [place] [facility] [address] [id number] [place] [address]- 4492 Apr, [facility] [place] [facility] [address] [id number], [place] [address]- 6235 Apr, [facility] [place] [facility] [address] [id number] [place] [address]- 6111 Apr, [facility] [place] [facility] [address] [id number] [place] [address]- 4306 Apr, [facility] [place] [facility] [address] [id number], [place] [address]- 3304 Apr, [facility] [place] [facility] [address] [id number], [place] [address]- 4684 Apr, [facility] [place] [facility] [address] [id number] [place] [address]- 6397 Mar, [facility] [place] [facility] [address] [id number] [place] [address]- 5920 Mar, [facility] [place] [facility] [address] [id number] [place] [address]- 5034 Mar, [facility] [place] [facility] [address] [id number] [place] [address]- 0676 Mar, [facility] [place] [facility] [address] [id number] [place] [address]- 3469 Mar, [facility] [place] [facility] [address] [id number] [place] [address]- 8009 Mar, [facility] [place] [facility] [address] [facility] [id number] [place] [address]- 0809 Mar, [facility] [place] [facility] [address] [id number] [place] [address]- 0676 Mar, [facility] [place] [facility] [address] [facility] [id number] [place] [address]- 3433 Mar, [facility] [place] [facility] [address] [facility] [id number] [place] [address]- 6161 Mar, [facility] [place] [facility] [address] [id number], [place] [address]- 5172 Feb, [facility] [place] [facility] [address] [id number], [place] [address]- 5116 Feb, [facility] [place] [facility] [address] [id number] [place] [address]- 7212 Feb, [facility] [place] [facility] [address] [id number] [place] [address]- 3440 Feb, [facility] [place] [facility] [address] [facility] [id number], [place] [address]- 4169 Feb, [facility] [place] [facility] [address] [id number] [place] [address]- 9983 14 Feb, 2013 [facility] [place] [facility] [address] [id number] [place] [address]- 3999 30 Jan, 2013 [facility] [place] [facility] [address] [id number] [place] [address]- 2546 30 Jan, 2013 [facility] [place] [facility] [address] [id number] [place] [address] 254 24 Jan, 2013 [facility] [place] [facility] [address] [id number] [place] [address]- 2545 24 Jan, 2013 [facility] [place] [facility] [address] [id number] [place] [address]- 1986 19 Jan, 2013 [facility] [place] [facility] [address] [id number] [place] [address]- 2234 19 Jan, 2013 [facility] [place] [facility] [address] [id number] [place] [address]- 7104 16 Jan, 2013 [facility] [place] [facility] [address] [id number] [place] [address]- 254 16 Jan, 2013 [facility] [place] [facility] [address] [id number] [place] [address]- 2544 16 Jan, 2013 [facility] [place] [facility] [address] [id number] [place] [address]- 1633 16 Jan, 2013 [facility] [place] [facility] [address] [id number] [place] [address]- 2543 12 Jan, 2013 [facility] [place] [facility] [address] [id number] [place] [address]- 2541 12 Jan, 2013 [facility] [place] [facility] [address] [id number] [place] [address]- 7558 Dec, [facility] [place] [facility] [address] [id number] [place] [address]- 8610 Dec, [facility] [place] [facility] [address] [id number] [place] [address]- 3907 Dec, [facility] [place] [facility] [address] [id number] [place] [address]- 8371 Dec, [facility] [place] [facility] [address] [id number] [place] [address]- 8788 Dec, [facility] [place] [facility] [address] [id number] [place] [address]- 2048 Dec, [facility] [place] [facility] [address] [id number] [place] [address]- 5316 Nov, [facility] [place] [facility] [address] [id number] [place] [address]- 0514 Nov, [facility] [place] [facility] [address] [id number] [place] [address]- 4583 Nov, [facility] [place] [facility] [address] [id number] [place] [address]- 3880 Nov, [facility] [place] [facility] [address] [id number] [place] [address]- 6298 Nov, [facility] [place] [facility] [address] [id number] [place] [address]- 7088 Nov, [facility] [place] [facility] [address] [id number] [place] [address]- 3881 Nov, [facility] [place] [facility] [address] [id number] [place] [address]- 0078 Nov, [facility] [place] [facility] [address] [id number] [place] [address]- 7029 Oct, [facility] [place] [facility] [address] [id number] [place] [address]- 7132 Oct, [facility] [place] [facility] [address] [id number] [place] [address]- 0191 Oct, [facility] [place] [facility] [address] [id number] [place] [address]- 1526 Oct, [facility] [place] [facility] [address] [id number] [place] [address]- 3253 September, [facility] [address] [id number] [place] [address]- 8068 September, [facility] [place] [facility] [address] [id number] [place] [address]- 5279 September, [facility] [place] [facility] [address] [id number] [place] [address]- 0825 September, [facility] [place] [facility] [address] [id number] [place] [address]- 2488 September, [facility] [place] [facility] [address] [id number] [place] [address]- 5886 September, [facility] [place] [facility] [address] [id number] [place] [address]- 3424 Aug, [facility] [place] [facility] [address] [id number] [place] [address]- 2808 Aug, [facility] [place] [facility] [address] [id number] [place] [address]- 3483 Aug, [facility] [place] [facility] [address] [id number] [place] [address]- 9144 Aug, [facility] [place] [facility] [address] [id number] [place] [address]- 6888 Aug, [facility] [place] [facility] [address] [id number] [place] [address]- 0403 Aug, [facility] [place] [facility] [address] [id number] [place] [address]- 7336 Aug, [facility] [place] [facility] [address] [id number] [place] [address]- 7236 Aug, [facility] [place] [facility] [address] [id number] [place] [address]- 2904 Jul, [facility] [place] [facility] [address] [id number] [place] [address]- 2864 Jul, [facility] [place] [facility] [address] [id number] [place] [address]- 9090 Jun, [facility] [place] [facility] [address] [id number] [place] [address]- 3772 Jun, [facility] [place] [facility] [address] [id number] [place] [address] Jun, [facility] [place] [facility] [address] [id number] [place] [address]- 8836 Jun, [facility] [place] [facility] [address] [id number] [place] [address]- 0141 Jun, [facility] [place] [facility] [address] [id number] [place] [address]- 5833 May, [facility] [place] [facility] [address] [id number] [place] [address]- 4372 May, [facility] [place] [facility] [address] [id number], [place] [address]- 6415 May, [facility] [place] [facility] [address] [id number] [place] [address]- 1541 May, [facility] [place] [facility] [address] [facility] [id number], [place] [address]- 6321 Apr, [facility] [place] [facility] [address] [id number], [place] [address]- 6374 Apr, [facility] [place] [facility] [address] [id number], [place] [address]- 7071 Mar, [facility] [place] [facility] [address] [id number] [place] [address]- 8315 Mar, [facility] [place] [facility] [address] [id number], [place] [address]- 6126 Feb, [facility] [place] [facility] [address] [id number], [place] [address]- 4144 Feb, [facility] [place] [facility] [address] [id number], [place] [address]- 1202 Feb, [facility] [place] [facility] [address] [id number] [place] [address]- 4195 Feb, [facility] [place] [facility] [address] [id number] [place] [address]- 9986 Feb, [facility] [place] [facility] [address] [id number] [place] [address]- 2761 Feb, [facility] [place] [facility] [address] [id number] [place] [address]- 6242 Feb, [facility] [place] [facility] [address] [id number] [place] [address]- 8754 Jan, [facility] [place] [facility] [address] [id number] [place] [address]- 1847 Jan, [facility] [place] [facility] [address] [id number] [place] [address]- 2062 Dec, [facility] [place] [facility] [address] [id number] [place] [address]- 2017 Dec, [facility] [place] [facility] [address] [id number] [place] [address]- 2028 Dec, [facility] [place] [facility] [address] [id number] [place] [address]- 5255 Dec, [facility] [place] [facility] [address] [id number] [place] [address]- 8288 Dec, [facility] [place] [facility] [address] [id number], [place] [address]- 9662 Nov, [facility] [place] [facility] [address] [id number] [place] [address]- 7343 Nov, [facility] [place] [facility] [address] [facility] [id number] [place] [address]- 7724 Nov, [facility] [place] [facility] [address] [facility] [id number] [place] [address]- 5045 Oct, [facility] [place] [facility] [address] [id number] [place] [address]- 5450 Oct, [facility] [address] [id number] [place] [address]- 7042 Oct, [facility] [place] [facility] [address] [id number] [place] [address]- 4226 September, [facility] [place] [facility] [address] [id number] [place] [address]- 2936 Aug, [facility] [place] [facility] [address] [id number] [place] [address]- 7675 Aug, [facility] [place] [facility] [address] [id number] [place] [address]- 5767 Aug, [facility] [place] [facility] [address] [id number] [place] [address]- 8766 Jul, [facility] [place] [facility] [address] [id number] [place] [address]- 3241 Jul, [facility] [address] [id number] [place] [address]- 1856 Jul, [facility] [place] [facility] [address] [id number] [place] [address]- 1618 Jul, [facility] [place] [facility] [address] [id number] [place] [address]- 5886 Jul, [facility] [place] [facility] [address] [id number] [place] [address]- 8485 Jun, [facility] [place] [facility] [address] [id number] [place] [address]- 2549 Jun, [facility] [place] [facility] [address] [id number] [place] [address]- 0655 May, [facility] [place] [facility] [address] [id number] [place] [address]- 2546 May, [facility] [place] [facility] [address] [id number] [place] [address]- 2260 Apr, [facility] [place] [facility] [address] [id number] [place] [address]- 2546 Apr, [facility] [place] [facility] [address] [id number] [place] [address]- 2616 Mar, [facility] [address] [facility] [id number] [place] [address]- 2546 Mar, [facility] [address] [facility] [id number], [place] [address]- 2546 Mar, [facility] [address] [facility] [id number] [place] [address]- 2546 Mar, [facility] [address] [id number] [address] Feb, [facility] [address] [id number], [place] [address]- 1236 Feb, [facility] [place] [facility] [address] [facility] [id number], [place] [address]- 0256 Feb, [facility] [address] [facility] [id number], [place] [address]- 8356 Feb, [facility] [place] [facility] [address] [facility] [id number], [place] [address]- 8896 Feb, [facility] [address] [id number], [place] [address]- 2546 Feb, [facility] [place] [facility] [address] [id number], [place] [address]- 2546 Feb, [facility] [place] [facility] [address] [id number], [place] [address]- 2546 Jan, [facility] [place] [facility] [address] [id number], [place] [address]- 2546 Jan, [facility] [place] [facility] [address] [facility] [id number], [place] [address]- 2546 Dec, [facility] [place] [facility] [address] [id number] [place] [address] 2546 Dec, [facility] [address] [id number] [place] [address]- 8149 Nov, [facility] [address] [id number] [place] [address]- 4396 Oct, [facility] [address] [id number] [place] [address]- 2546 September, [facility] [place] [facility] [address] [id number] [place] [address]- 2546 September, [facility] [address] [id number] [place] [address]- 2546 September, [facility] [address] [id number] [place] [address]- 3946 Aug, [facility] [address] [id number], [place] [address]- 2385 May, [facility] [address] [id number] [place] [address]- 2670 May, [facility] [address] [id number] [place] [address]- 4885 Apr, [facility] [address] [id number] [place] [address]- 5066 Apr, [facility] [address] [id number] [place] [address]- 8737 Apr, [facility] [place] [facility] [address] [id number], [place] [address]- 2546 Apr, [facility] [place] [facility] [address] [id number] [place] [address]- 3366 Apr, [facility] [place] [facility] [address] [id number] [place] [address]- 2546 Mar, [facility] [place] [facility] [address] [id number], [place] [address]- 2546 Feb, [facility] [place] [facility] [address] [facility] [id number], [place] [address]- 1073 Feb, [facility] [place] [address] [facility] [id number], [place] [address]- 9998 September, [facility] [place] [address] [id number], [place] [address] Mar, [facility] [place] [address] [facility] [id number], [place] [address] Feb, [facility] [place] [address] [facility] [id number], [place] [address] Feb, [facility] [place] [address] [facility] [id number], [place] [address] Feb, IMMUNIZATIONS No Known Immunizations SOCIAL HISTORY Never Assessed REASON FOR VISIT Lab (walk-in) PLAN OF CARE Activity Details Pending Test LIPID PANEL Pending Test CMP VITAL SIGNS MEDICATIONS Unknown Medications RESULTS No Results PROCEDURES Procedure Date Ordered Result Body Site LAB NOT BILLED BY [facility] Mar 25, 2018 VENIPUNCT, ROUTINE* Mar 25, 2018 INSTRUCTIONS MEDICATIONS ADMINISTERED No Known Medications MEDICAL [...] foot fracture Hospitalization History [facility]- Back Pain 03/24/2017
--- OUTSIDE RECORDS SUMMARY | 2018-04-10 17:49 | XMS REPORT ---
Author Author CONNER ROCHE Organization [facility] Address [address] [place] [address] Care Team Providers Care Medical Microbiologist Name Role Phone CONNER ROCHE Unavailable PROBLEMS Type Condition ICD9-CM Code ACH81-BD Code Onset Dates Condition Status SNOMED Code Problem Color blindness H53.50 Active 239112705 Problem Presbyopia of both eyes H52.4 Active 41534424 Problem Nuclear senile cataract of both eyes H25.13 Active 672852586 Problem Astigmatism of both eyes, unspecified type H52.203 Active 66639961 Problem Essential hypertension I10 Active 35725161 Problem Other chronic pain G89.29 Active 33003977 Problem Hypermetropia of both eyes H52.03 Active 30523303 Problem Alzheimer's disease, unspecified G30.9 Active 170814012 Problem 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 Active 573052451 Problem 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 Active 191677611 Problem Gait instability R26.81 Active 16148455 Problem 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 Active 895325837 Problem Arthritis, 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 Active 814330707 Problem PVD (peripheral vascular disease) I73.9 Active 767861892 Problem 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 Active 621001250 Problem Hydrocele, unspecified hydrocele type N43.3 Active 92247763 Problem Other acute pulmonary embolism without acute cor pulmonale I26.99 Active 260447884 Problem At high risk for falls Z91.81 Active [id number] Problem Asymptomatic microscopic hematuria R31.21 Active 991541844 Problem Major depressive disorder, single episode, mild F32.0 Active 87246996 Problem Chronic fatigue R53.82 Active 48418356 Problem Benign non-nodular prostatic hyperplasia with lower urinary tract symptoms N40.1 Active 304881881 Problem Transient cerebral ischemia, unspecified transient cerebral ischemia type G45.9 Active 401482203 Problem Renal cyst, left Q61.00 Active 04179610 Problem 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 Active 74716968 Problem Anxiety F41.9 Active 27677425 Problem Overactive bladder N32.81 Active 203825919 Problem Primary insomnia F51.01 Active 553518369 Problem Mixed hyperlipidemia E78.2 Active 954511548 ALLERGIES No Information ENCOUNTERS Encounter Location Date Diagnosis [facility] [address] [address]- [address] Feb, [facility] [address] [address]- 2064 Feb, [facility] [address] 89[address]- 1825 Feb, [facility] [address] 58[address]- 5178 Feb, [facility] [address] 05236- 4984 Feb, Encounter for immunization Z23 [facility] [address] [address]- 1391 Jan, Flank pain R10.9 [facility] [address] 87197- 9130 Jan, [facility] [address] 86397- 3119 Dec, [facility] [id number] [place] [address] 85471- 9286 Dec, [facility] [id number] [place] [address] 57243- 3816 Dec, 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 and 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 [facility] [id number] [place] [address] 06847- 8306 Dec, Left flank pain R10.9 and Arthritis, 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 [facility] [address] [place] [address]- 5468 Dec, [facility] [id number] [place] [address] 31843- 6556 Nov, Essential hypertension I10 and Mixed hyperlipidemia E78.2 [facility] [id number] [place] [address] 56927- 7626 Oct, Edema leg R60.0 [facility] [address] 0[address]64- 9214 September, [facility] [address] 91414- 3563 September, 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 and 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 [facility] [id number] [place] [address] 53100- 3247 September, PVD (peripheral vascular disease) I73.9 ; Major depressive disorder, single episode, mild F32.0 ; Chronic fatigue R53.82 ; Weight gain R63.5 and Arthralgia, unspecified joint M25.50 [facility] [id number] [place] [address] 26989- 7746 Aug, Acute low back pain, unspecified back pain laterality, with sciatica presence unspecified M54.5 [facility] [id number] [place] [address] 40961- 1604 Aug, Acute low back pain, unspecified back pain laterality, with sciatica presence unspecified M54.5 [facility] [id number] [place] [address] 46619- 5711 Aug, Pain R52 [facility] [address] 29076- 5608 Jul, [facility] [id number] [place] [address] 89883- 6353 Jun, [facility] [address] 86377- 3979 Jun, Medicare annual wellness visit, initial Z00.00 ; Mixed hyperlipidemia E78.2 ; Essential hypertension I10 ; Anxiety F41.9 ; 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 ; 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 ; Overactive bladder N32.81 ; Primary insomnia F51.01 ; At high risk for falls Z91.81 and Encounter for immunization Z23 [facility] [id number] [place] [address] 98644- 1183 May, [facility] [address] 40766- 0701 May, Essential hypertension I10 and Transient cerebral ischemia, unspecified transient cerebral ischemia type G45.9 [facility] [id number] [place] [address] [id number] May, Dental examination Z01.20 and Dental caries K02.9 [facility] [id number] [place] [address] 72728- 7265 May, [facility] [id number] [place] [address] 74825- 5967 May, [facility] [address] 76052- 3048 May, 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 [facility] [id number] [place] [address] 85835- 1521 Apr, [facility] [id number] [place] [address] 53221- 1969 Apr, 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 and 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 [facility] [address] 30166- 5029 Mar, 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 [facility] [id number] [place] [address] 17009- 4165 Mar, Mixed hyperlipidemia E78.2 ; Essential hypertension I10 ; Asymptomatic microscopic hematuria R31.21 and Renal cyst, left Q61.00 [facility] [address] [address]- 5883 Mar, [facility] [id number] [place] [address] 05952- 6464 Feb, Encounter for immunization Z23 [facility] [id number] [place] [address] 34220- 0350 Feb, [facility] [id number] [place] [address] 15838- 6901 Feb, [facility] [id number] [place] [address] 39445 -4230 Feb, ANUG (acute necrotizing ulcerative gingivitis) A69.1 [facility] [id number] [place] [address] 96386- 0286 Feb, [facility] [id number] [place] [address] 08505- 4693 Feb, 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 [facility] [id number] [place] [address] 38942- 2856 Feb, 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 and 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 [facility] [address] [address]- 4098 Jan, 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 [facility] [id number] [place] [address] 90268- 4065 Jan, Gait instability R26.81 [facility] [address] [id number] [place] [address] Jan [facility] [address] [id number] [place] [address] Dec [facility] [address] [address]- 4603 Dec, [facility] [id number] [place] [address] 45596- 9202 Dec, [facility] [id number] [place] [address] 22817- 7657 Dec, Essential hypertension I10 ; Transient cerebral ischemia, unspecified transient cerebral ischemia type G45.9 and Anxiety F41.9 [facility] [id number] [place] [address] 06284- 8010 Dec, Gait instability R26.81 [facility] [id number] [place] [address] 53291- 5478 Dec, [facility] [id number] [place] [address] 84593- 7632 Nov, 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 and 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 [facility] [id number] [place] [address] 88904- 9813 Nov, [facility] [id number] [place] [address] 53797- 8747 Nov, Gait instability R26.81 [facility] [id number] [place] [address] 06383- 8848 Nov, Anxiety F41.9 [facility] [id number] [place] [address] 00960- 3635 Nov, [facility] [id number] [place] [address] 00061- 7824 Nov, [facility] [id number] [place] [address] 24621- 1651 Oct, Gait instability R26.81 [facility] [id number] [place] [address] 20898- 3272 Oct, Anxiety F41.9 [facility] [id number] [place] [address] 67824- 1007 Oct, Gait instability R26.81 [facility] [id number] [address]- 5111 Oct, Gait instability R26.81 [facility] [id number] [place] [address] 84963- 8165 Oct, [facility] [id number] [place] [address] 53929- 0426 Oct, Anxiety F41.9 ; Chronic 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 use Z79.899 ; Encounter for immunization Z23 and Transient cerebral ischemia, unspecified transient cerebral ischemia type G45.9 [facility] [id number] [place] [address] 82808- 6218 September, [facility] [id number] [place] [address] 88037- 7893 September, Gait instability R26.81 [facility] [id number] [place] [address] 77790- 0948 September, [facility] [id number] [place] [address] 99118- 3191 September, [facility] [id number] [place] [address] 16498- 8663 September, [facility] [id number] [place] [address] 39799- 7589 September, 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 and 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 [facility] [id number] [address]- 8862 September, [facility] [id number] [place] [address] 95437- 1020 September, [facility] [id number] [place] [address] 09399- 6397 September, [facility] [id number] [address]- 2106 September, 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 [facility] [id number] [place] [address] 02608- 5918 Aug, 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 ; 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 ; Other acute pulmonary embolism without acute cor pulmonale I26.99 and Cough R05 [facility] [address] [address]- 7177 Aug, [facility] [id number] [place] [address] 27629- 6526 Aug, Gait instability R26.81 [facility] [id number] [place] [address] 54173- 0981 Aug, 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 and 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 [facility] [id number] [address]- 2226 Aug, [facility] [id number] [place] [address] 69165- 4428 Aug, 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 [facility] [id number] [address]- 5305 Jul, 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 [facility] [address] [address]- 1094 Jul, [facility] [id number] [address]- 2225 Jul, 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 [facility] [address] [address]- 0538 Jul, Anxiety F41.9 ; 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 and Transient cerebral ischemia, unspecified transient cerebral ischemia type G45.9 [facility] [address] [address]- 6713 Jun, Essential hypertension I10 [facility] [id number] [place] [address] 05507- 5065 Jun, [facility] [id number] [place] [address] 95522- 1062 Jun, [facility] [id number] [place] [address] 81579- 2488 Jun, [facility] [id number] [place] [address] 32393- 2547 Jun, Essential hypertension I10 ; Benign non-nodular prostatic hyperplasia with lower urinary tract symptoms N40.1 ; Anxiety F41.9 ; Pain in right knee M25.561 ; Pain in left knee M25.562 and Other chronic pain G89.29 [facility] [id number] [place] [address] 54103- 6663 May, [facility] [id number] [place] [address] 82204- 3272 May, [facility] [id number] [place] [address] 21440- 3840 May, [facility] [id number] [place] [address] 33920- 5343 Apr, [facility] [id number] [place] [address] 74143- 4472 Mar, [facility] [id number] [place] [address] 37746- 4951 Mar, Mixed hyperlipidemia E78.2 and Essential hypertension I10 [facility] [id number] [place] [address] 60546- 0236 Feb, [facility] [id number] [place] [address] 27545- 8241 Feb, Ingrown nail L60.0 and Onychomycosis B35.1 [facility] [id number] [place] [address] 74061- 8553 07 Feb, 2016 Paronychia, left L03.012 [facility] [address] [place] [address]- 3616 Jan, [facility] [id number] [place] [address] 69530 2546 Jan, Cramps of right lower extremity R25.2 and Mixed hyperlipidemia E78.2 [facility] [id number] [place] [address] 26490 2546 Jan, Cramps of right lower extremity R25.2 ; Essential hypertension I10 ; Mixed hyperlipidemia E78.2 ; Chronic 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 use Z79.899 and Claudication I73.9 [facility] [address] [place] [address] 83057- 2802 Jan, Right leg pain M79.604 [facility] [id number] [place] [address] 19033- 2266 Dec, [facility] [id number] [place] [address] 65897- 5128 Nov, [facility] [address] [place] [address] 46306- 5666 Nov, [facility] [id number] [place] [address] 82784- 4206 Nov, [facility] [address] [place] [address] 77361- 2540 Nov, Dermatofibroma D23.9 [facility] [id number] [place] [address] 53454- 1765 Nov, [facility] [address] [place] [address] 29207 2546 Oct, [facility] [id number] [place] [address] 03057 2546 Oct, [facility] [address] [address]- 6546 September, Benign non-nodular prostatic hyperplasia with lower urinary tract symptoms N40.1 ; Essential hypertension I10 ; Overactive bladder N32.81 and Fatigue, unspecified type R53.83 [facility] [id number] [address]- 2154 September, [facility] [id number] [place] [address] 101531- 9906 September, [facility] [id number] [place] [address] 26037- 6789 Aug, [facility] [id number] [place] [address] 84888- 4041 Jul, [facility] [id number] [place] [address] 17715- 1592 Jul, Pelvic pain R10.2 ; Jock itch B35.6 ; Essential hypertension I10 and Hydrocele, unspecified hydrocele type N43.3 [facility] [id number] [place] [address] 84367- 7009 Jun, [facility] [id number] [place] [address] 88970- 1448 Jun, [facility] [id number] [place] [address] 00294- 3642 Jun, Benign non-nodular prostatic hyperplasia with lower urinary tract symptoms N40.1 [facility] [address] [address]- 7899 Jun, Benign non-nodular prostatic hyperplasia with lower urinary tract symptoms N40.1 [facility] [address] [address]- 8160 Jun, [facility] [id number] [place] [address] 03146- 7220 May, [facility] [id number] [place] [address] 309094- 4099 Apr, [facility] [address] [address]- 8921 Apr, [facility] [id number] [place] [address] 97085- 8274 Apr, Other acute pulmonary embolism without acute cor pulmonale I26.99 ; Anxiety F41.9 ; 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 and nursing home 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 use Z79.899 [facility] [id number] [place] [address] 22475- 6797 Apr, [facility] [address] 14482- 7890 Apr, [facility] [address] 92003- 0416 Mar, [facility] [address] 41570- 1958 Mar, [facility] [id number] [place] [address] 38624- 8640 Feb, Cough R05 [facility] [id number] [place] [address] 12339- 0311 Feb, [facility] [id number] [place] [address] 63814- 3878 Feb, Encounter for immunization Z23 [facility] [id number] [place] [address] 67661- 0280 Feb, Other and unspecified hyperlipidemia 272.4 [facility] [id number] [place] [address] 98380- 8669 Jan, [facility] [id number] [place] [address] 99612- 7827 Jan, TIA (transient ischemic attack) 435.9 [facility] [address] 39966- 1061 Dec, [facility] [id number] [place] [address] 97036- 7962 Dec, [facility] [address] 28756- 2546 Dec, [facility] [address] [address]- 9425 Nov, [facility] [address] [address]- 9901 Oct, Chronic cough 786.2 [facility] [address] [address]- 6696 Oct, [facility] [id number] [place] [address] 62470- 7169 Oct, [facility] [id number] [place] [address] 72783- 4282 Oct, [facility] [id number] [place] [address] 45672- 3517 Oct, [facility] [id number] [place] [address] 48281- 7714 Oct, Chronic cough 786.2 [facility] [id number] [place] [address] 186606- 3722 Oct, Cough 786.2 ; Hypertension 401.9 ; BPH (benign prostatic hyperplasia) 600.00 ; Other and unspecified hyperlipidemia 272.4 and Hydrocele 603.9 [facility] [address] [address]- 7465 Oct, [facility] [address] [address]- 5692 September, [facility] [address] [address]- 6102 Aug, [facility] [id number] [place] [address] 99546- 7483 Aug, [facility] [address] 9476 Jul, [facility] [address] 2038 Jul, [facility] [place] [facility] [address] [id number] [place] [address]- 2976 Jul, [facility] [place] [facility] [address] [id number] [place] [address]- 2554 Jul, [facility] [place] [facility] [address] [id number] [place] [address]- 6801 Jul, [facility] [place] [facility] [address] [id number] [place] [address]- 1293 Jun, 2014 [facility] [place] [facility] [address] [id number] [place] [address]- 4304 Jun, [facility] [place] [facility] [address] [id number] [place] [address]- 0596 Jun, [facility] [place] [facility] [address] [id number] [place] [address] Jun, [facility] [place] [facility] [address] [id number] [place] [address] Jun, [facility] [place] [facility] [address] [id number] [place] [address] Jun, [facility] [place] [facility] [address] [id number] [place] [address] Jun, [facility] [place] [facility] [address] [id number] [place] [address] Jun, [facility] [place] [facility] [address] [id number] [place] [address] May, [facility] [place] [facility] [address] [id number] [place] [address] May, [facility] [place] [facility] [address] [id number] [place] [address] May, [facility] [place] [facility] [address] [id number] [place] [address] May, [facility] [place] [facility] [address] [id number] [place] [address] May, [facility] [address] [id number] [place] [address] May, [facility] [place] [facility] [address] [id number] [place] [address] May, [facility] [address] [id number] [place] [address] May, [facility] [address] [id number] [place] [address] May, [facility] [address] [id number] [place] [address] May, [facility] [facility] [address] [id number] [place] [address] Apr, [facility] [address] [id number] [place] [address] Apr, [facility] [address] [id number] [place] [address] Apr, [facility] [address] [id number] [place] [address]26 Apr, [facility] [address] [id number] [place] [address] 6067 Apr, [facility] [place] [facility] [address] [id number] [place] [address] 73[address] Apr, [facility] [place] [facility] [address] [id number] [place] [address] 4004 Apr, [facility] [place] [facility] [address] [id number] [place] [address] Apr, [facility] [place] [facility] [address] [id number] [place] [address] 9662 Mar, [facility] [place] [facility] [address] [id number] [place] [address] Mar, [facility] [place] [facility] [address] [id number] [place] [address] 9439 Mar, [facility] [place] [facility] [address] [id number] [place] [address] 3708 Mar, [facility] [place] [facility] [address] [id number] [place] [address] 64[address] Mar, [facility] [place] [facility] [address] [id number] [place] [address] 4669 Mar, [facility] [place] [facility] [address] [id number] [place] [address]- 4978 Mar, [facility] [place] [facility] [address] [id number] [place] [address]- 2077 Mar, [facility] [place] [facility] [address] [id number] [place] [address] 3343 Mar, [facility] [place] [facility] [address] [id number] [place] [address] 7065 Mar, [facility] [place] [facility] [address] [id number] [place] [address] 1459 Feb, [facility] [place] [facility] [address] [id number] [place] [address]- 5881 Feb, [facility] [place] [facility] [address] [id number] [place] [address]- 7298 Feb, [facility] [place] [facility] [address] [id number] [place] [address] Feb, [facility] [place] [facility] [address] [id number] [place] [address] 3031 Feb, [facility] [place] [facility] [address] [id number] [place] [address] 8702 Feb, [facility] [place] [facility] [address] [id number] [place] [address]- 0919 30 Jan, 2014 [facility] [place] [facility] [address] [id number] [place] [address]- 2071 30 Sep, 2013 [facility] [place] [facility] [address] [id number] [place] [address] 2256 24 Sep, 2013 [facility] [place] [facility] [address] [id number] [place] [address]- 9936 24 Jan, 2013 [facility] [place] [facility] [address] [id number] [place] [address]- 1666 19 Sep, 2013 [facility] [place] [facility] [address] [id number] [place] [address]- 6776 19 Sep, 2013 [facility] [place] [facility] [address] [id number] [place] [address]- 4692 16 Jan, 2013 [facility] [place] [facility] [address] [id number] [place] [address]- 5458 16 Jan, 2013 [facility] [place] [facility] [address] [id number] [place] [address]- 3836 16 Jan, 2013 [facility] [place] [facility] [address] [id number] [place] [address]- 8937 16 Jan, 2013 [facility] [place] [facility] [address] [id number] [place] [address]- 8973 12 Jan, 2013 [facility] [place] [facility] [address] [id number] [place] [address]- 5419 12 Jan, 2013 [facility] [place] [facility] [address] [id number] [place] [address] 3683 Dec, [facility] [place] [facility] [address] [id number] [place] [address]- 2544 Dec, [facility] [place] [facility] [address] [id number] [place] [address]- 0896 Dec, [facility] [place] [facility] [address] [id number] [place] [address]- 5286 Dec, [facility] [place] [facility] [address] [id number] [place] [address]- 9716 Dec, [facility] [place] [facility] [address] [id number] [place] [address]- 8765 Dec, [facility] [place] [facility] [address] [id number] [place] [address]- 2791 Nov, [facility] [place] [facility] [address] [id number] [place] [address]- 8538 Nov, [facility] [place] [facility] [address] [id number] [place] [address]- 7018 Nov, [facility] [place] [facility] [address] [id number] [place] [address]- 7604 Nov, [facility] [place] [facility] [address] [id number] [place] [address]- 5160 Nov, [facility] [place] [facility] [address] [id number] [place] [address]- 1257 Nov, [facility] [place] [facility] [address] [id number] [place] [address]- 4898 Nov, [facility] [place] [facility] [address] [id number] [place] [address]- 4328 Nov, [facility] [place] [facility] [address] [id number] [place] [address]- 8092 Oct, [facility] [place] [facility] [address] [id number] [place] [address]- 4635 Oct, [facility] [place] [facility] [address] [id number] [place] [address]- 9661 Oct, [facility] [place] [facility] [address] [id number] [place] [address]- 3979 Oct, [facility] [place] [facility] [address] [id number] [place] [address]- 3775 September, [facility] [place] [facility] [address] [id number] [place] [address]- 9819 September, [facility] [place] [facility] [address] [id number] [place] [address]- 1026 September, [facility] [place] [facility] [address] [id number] [place] [address]- 8945 September, [facility] [place] [facility] [address] [id number] [place] [address]- 1534 September, [facility] [place] [facility] [address] [id number] [place] [address] September, [facility] [place] [facility] [address] [id number] [place] [address]- 0334 Aug, [facility] [place] [facility] [address] [id number] [place] [address]- 7372 Aug, [facility] [place] [facility] [address] [id number] [place] [address]- 3837 Aug, [facility] [place] [facility] [address] [id number] [place] [address]- 9047 Aug, [facility] [place] [facility] [address] [id number] [place] [address]- 4906 Aug, [facility] [place] [facility] [address] [id number] [place] [address]- 3970 Aug, [facility] [place] [facility] [address] [id number] [place] [address]- 5197 Aug, [facility] [place] [facility] [address] [id number] [place] [address]- 8456 Aug, [facility] [place] [facility] [address] [id number] [place] [address]- 1088 Jul, [facility] [place] [facility] [address] [id number] [place] [address]- 7459 Jul, [facility] [place] [facility] [address] [id number] [place] [address]- 2107 Jun, [facility] [place] [facility] [address] [id number] [place] [address] Jun, [facility] [place] [facility] [address] [id number] [place] [address]- 9770 Jun, [facility] [address] [id number] [place] [address]- 6703 Jun, [facility] [place] [facility] [address] [id number] [place] [address]- 1476 Jun, [facility] [place] [facility] [address] [id number] [place] [address]- 3841 May, [facility] [place] [facility] [address] [id number] [place] [address]- 2799 May, [facility] [place] [facility] [address] [id number] [place] [address]- 1722 May, [facility] [place] [facility] [address] [id number] [place] [address]- 2768 May, [facility] [place] [facility] [address] [id number] [place] [address]- 1697 Apr, [facility] [address] [id number] [place] [address]- 5760 Apr, [facility] [place] [facility] [address] [id number] [place] [address]- 8988 Mar, [facility] [place] [facility] [address] [id number] [place] [address]- 2083 Mar, [facility] [place] [facility] [address] [id number] [place] [address]- 9085 Feb, [facility] [place] [facility] [address] [id number] [place] [address]- 5020 Feb, [facility] [place] [facility] [address] [id number] [place] [address]- 8110 Feb, [facility] [place] [facility] [address] [id number] [place] [address]- 9996 Feb, [facility] [place] [facility] [address] [id number] [place] [address]- 7701 Feb, [facility] [place] [facility] [address] [id number] [place] [address]- 5306 Feb, [facility] [place] [facility] [address] [id number] [place] [address]- 3203 Feb, [facility] [place] [facility] [address] [id number] [place] [address]- 3084 Jan, [facility] [place] [facility] [address] [id number] [place] [address]- 8223 Jan, [facility] [place] [facility] [address] [id number] [place] [address]- 6177 Dec, [facility] [place] [facility] [address] [id number] [place] [address]- 9200 Dec, [facility] [place] [facility] [address] [id number] [place] [address]- 5684 Dec, [facility] [place] [facility] [address] [id number] [place] [address]- 9793 Dec, [facility] [place] [facility] [address] [id number] [place] [address]- 3437 Dec, [facility] [place] [facility] [address] [id number] [place] [address]- 1065 Nov, [facility] [place] [facility] [address] [id number] [place] [address]- 0737 Nov, [facility] [place] [facility] [address] [id number] [place] [address]- 9970 Nov, [facility] [place] [facility] [address] [id number] [place] [address]- 9483 Oct, [facility] [place] [facility] [address] [id number] [place] [address]- 9168 Oct, [facility] [place] [facility] [address] [id number] [place] [address]- 0387 Oct, [facility] [place] [facility] [address] [id number] [place] [address]- 6597 September, [facility] [address] [id number] [place] [address]- 6391 Aug, [facility] [place] [facility] [address] [id number] [place] [address]- 2906 Aug, [facility] [address] [id number] [place] [address] 2546 Aug, [facility] [place] [facility] [address] [id number] [place] [address]- 7175 Jul, [facility] [address] [id number] [place] [address]- 0053 Jul, [facility] [place] [facility] [address] [id number] [place] [address]- 4836 Jul, [facility] [address] [id number] [place] [address]- 4273 Jul, [facility] [place] [facility] [address] [id number] [place] [address]- 5340 Jul, [facility] [address] [id number] [place] [address]- 3987 Jun, [facility] [address] [id number] [place] [address]- 7606 Jun, [facility] [place] [facility] [address] [id number] [place] [address]- 1526 May, [facility] [place] [facility] [address] [id number] [place] [address]- 2546 May, [facility] [place] [facility] [address] [id number] [place] [address]- 9949 Apr, [facility] [place] [facility] [address] [id number] [place] [address]- 0026 Apr, [facility] [address] [id number] [place] [address]- 0265 Mar, [facility] [place] [facility] [address] [id number] [place] [address]- 2546 Mar, [facility] [place] [facility] [address] [id number] [place] [address]- 2546 Mar, [facility] [place] [facility] [address] [facility] [id number] [place] [address]- 2546 Mar, [facility] [address] [id number] [place] [id number] Feb, [facility] [place] [facility] [address] [id number] [place] [address]- 8166 Feb, [facility] [place] [facility] [address] [id number] [place] [address]- 7176 Feb, [facility] [place] [facility] [address] [id number] [place] [address]- 5976 Feb, [facility] [place] [facility] [address] [id number] [place] [address]- 2416 Feb, [facility] [place] [facility] [address] [id number] [place] [address]- 7536 Feb, [facility] [place] [facility] [address] [id number] [place] [address]- 2236 Feb, [facility] [place] [facility] [address] [id number] [place] [address]- 9276 Jan, [facility] [place] [facility] [address] [id number] [place] [address]- 2546 05 Jan, 2012 [facility] [place] [facility] [address] [id number] [place] [address]- 2546 Dec, [facility] [place] [facility] [address] [id number] [place] [address]- 2546 Dec, [facility] [place] [facility] [address] [facility] [id number] [place] [address]- 2546 Nov, [facility] [place] [facility] [address] [id number] [place] [address]- 6068 Oct, [facility] [address] [id number] [place] [address]- 8929 September, [facility] [place] [facility] [address] [id number] [place] [address]- 7877 September, [facility] [place] [facility] [address] [id number] [place] [address]- 8266 September, [facility] [place] [facility] [address] [id number] [place] [address]- 9439 Aug, [facility] [place] [facility] [address] [id number] [place] [address]- 6910 May, [facility] [place] [facility] [address] [id number] [place] [address]- 5664 May, [facility] [place] [facility] [address] [id number] [place] [address]- 0342 Apr, [facility] [place] [facility] [address] [id number] [place] [address]- 8592 Apr, [facility] [place] [facility] [address] [id number] [place] [address]- 4544 Apr, [facility] [place] [facility] [address] [id number] [place] [address]- 5426 Apr, [facility] [place] [facility] [address] [id number] [place] [address]- 0823 Apr, [facility] [place] [facility] [address] [id number] [place] [address]- 6553 Mar, [facility] [place] [facility] [address] [id number] [place] [address]- 9243 Feb, [facility] [place] [facility] [address] [id number] [place] [address]- 2932 Feb, [facility] [place] [facility] [address] [id number] [place] [address]- 5238 September, [facility] [place] [facility] [address] [facility] [id number] [place] [address]- 9128 18 Mar, 2010 [facility] [address] [facility] [id number] [place] [address]- 2248 14 Feb, 2010 [facility] [address] [facility] [id number] [place] [address]- 7161 11 Feb, 2010 [facility] [address] [facility] [id number] [place] [address]- 4625 Feb, IMMUNIZATIONS No Known Immunizations SOCIAL HISTORY Never Assessed REASON FOR VISIT Eye Exam PLAN OF CARE VITAL SIGNS MEDICATIONS Unknown [...] foot fracture Hospitalization History Via [facility] FLOR[facility] Zullinger- Back Pain 03/24/2017
--- OUTSIDE RECORDS SUMMARY | 2018-04-10 17:50 | XMS REPORT ---
Author Author CONNER ROCHE Organization [facility] Address [address] [place] [address] Care Team Providers Care Driver Trainee Name Role Phone CONNER ROCHE Unavailable PROBLEMS Type Condition ICD9-CM Code LWU90-OI Code Onset Dates Condition Status SNOMED Code Problem Color blindness H53.50 Active 481647857 Problem Presbyopia of both eyes H52.4 Active 60638407 Problem Nuclear senile cataract of both eyes H25.13 Active 050399283 Problem Astigmatism of both eyes, unspecified type H52.203 Active 23344648 Problem Essential hypertension I10 Active 47218964 Problem Other chronic pain G89.29 Active 31690210 Problem Hypermetropia of both eyes H52.03 Active 25996467 Problem Alzheimer's disease, unspecified G30.9 Active 855226591 Problem 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 Active 384460083 Problem 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 Active 428475584 Problem Gait instability R26.81 Active 76418837 Problem 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 Active 538735360 Problem Arthritis, 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 Active 361028316 Problem PVD (peripheral vascular disease) I73.9 Active 070055752 Problem 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 Active 797994387 Problem Hydrocele, unspecified hydrocele type N43.3 Active 00876766 Problem Other acute pulmonary embolism without acute cor pulmonale I26.99 Active 966610602 Problem At high risk for falls Z91.81 Active [id number] Problem Asymptomatic microscopic hematuria R31.21 Active 202376970 Problem Major depressive disorder, single episode, mild F32.0 Active 27308596 Problem Chronic fatigue R53.82 Active 21523943 Problem Benign non-nodular prostatic hyperplasia with lower urinary tract symptoms N40.1 Active 290075038 Problem Transient cerebral ischemia, unspecified transient cerebral ischemia type G45.9 Active 647602677 Problem Renal cyst, left Q61.00 Active 42699040 Problem 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 Active 21816527 Problem Anxiety F41.9 Active 64438685 Problem Overactive bladder N32.81 Active 016899537 Problem Primary insomnia F51.01 Active 110086477 Problem Mixed hyperlipidemia E78.2 Active 631357913 ALLERGIES No Information ENCOUNTERS Encounter Location Date Diagnosis [facility] [address] [address] Feb, [facility] [address] [address]- 8586 Feb, [facility] [address] [address]- 9727 Feb, [facility] [address] [address]182- 6148 Feb, Encounter for immunization Z23 [facility] [address] [address]- [address] Jan, Flank pain R10.9 [facility] [address] [address]- 5506 Jan, [facility] [address] 12975- 9941 Dec, [facility] [address] 77245- 4221 Dec, [facility] [address] 87483- 1713 Dec, 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 and 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 [facility] [address] 17201- 4269 Dec, Left flank pain R10.9 and Arthritis, 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 [facility] [address] [address]- 0830 Dec, [facility] [address] [place] [address]- 0602 Nov, Essential hypertension I10 and Mixed hyperlipidemia E78.2 [facility] [address] [address]- 0401 Oct, Edema leg R60.0 [facility] [id number] [place] [address] 46720- 3436 September, [facility] [address] 41113- 4681 September, 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 and 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 [facility] [address] 94759- 9184 September, PVD (peripheral vascular disease) I73.9 ; Major depressive disorder, single episode, mild F32.0 ; Chronic fatigue R53.82 ; Weight gain R63.5 and Arthralgia, unspecified joint M25.50 [facility] [place] [id number] [place] [address] 56291- 8984 Aug, Acute low back pain, unspecified back pain laterality, with sciatica presence unspecified M54.5 [facility] [id number] [place] [address] 02061- 5355 Aug, Acute low back pain, unspecified back pain laterality, with sciatica presence unspecified M54.5 [facility] [id number] [place] [address] 36933- 1680 Aug, Pain R52 [facility] [id number] [place] [address] 58366- 7798 Jul, [facility] [address] 52848- 4526 Jun, [facility] [place] [id number] [place] [address] 08525- 8962 07 Jun, 2017 Medicare annual wellness visit, initial Z00.00 ; Mixed hyperlipidemia E78.2 ; Essential hypertension I10 ; Anxiety F41.9 ; 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 ; 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 ; Overactive bladder N32.81 ; Primary insomnia F51.01 ; At high risk for falls Z91.81 and Encounter for immunization Z23 [facility] [id number] [place] [address] 23102- 4690 May, [facility] [id number] [place] [address] 11340- 0552 May, Essential hypertension I10 and Transient cerebral ischemia, unspecified transient cerebral ischemia type G45.9 [facility] [id number] [place] [address] [id number] May, Dental examination Z01.20 and Dental caries K02.9 [place] [id number] [place] [address] 90357- 5686 May, [facility] [facility] [address] 75714- 6218 May, [facility] [id number] [place] [address] 49464- 4041 May, 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 [facility] [id number] [place] [address] 27620- 8581 Apr, [facility] [id number] [place] [address] 39617- 1357 Apr, 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 and 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 [place] [id number] [place] [address] 42043- 6159 Mar, 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 [facility] [id number] [place] [address] 27206- 5226 Mar, Mixed hyperlipidemia E78.2 ; Essential hypertension I10 ; Asymptomatic microscopic hematuria R31.21 and Renal cyst, left Q61.00 [place] [id number] [place] [address] 05837- 7802 Mar, [facility] [address] [address]- 1440 Feb, Encounter for immunization Z23 [facility] [id number] [place] [address] 60142- 0291 Feb, [facility] [id number] [place] [address] 17122- 7407 Feb, [facility] [id number] [place] [address] 30448 -2190 Feb, ANUG (acute necrotizing ulcerative gingivitis) A69.1 [facility] [id number] [place] [address] 78399- 7458 Feb, [facility] [id number] [place] [address] 77628- 8813 Feb, 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 [facility] [id number] [place] [address] 47038- 5312 Feb, 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 and 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 [facility] [id number] [place] [address] 05160- 2143 Jan, 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 [facility] [address] [address]- 2969 Jan, Gait instability R26.81 [facility] [address] [id number] [place] [address] Jan [facility] [address] [id number] [place] [address] Dec [facility] [address] [address]- 8513 Dec, [facility] [address] [address]- 2915 Dec, [facility] [id number] [place] [address] 68610- 9617 Dec, Essential hypertension I10 ; Transient cerebral ischemia, unspecified transient cerebral ischemia type G45.9 and Anxiety F41.9 [facility] [id number] [place] [address] 64300- 7198 Dec, Gait instability R26.81 [facility] [id number] [place] [address] 47044- 6070 Dec, [facility] [id number] [place] [address] 52496- 2953 Nov, 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 and 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 [facility] [id number] [place] [address] 55378- 7100 Nov, [facility] [id number] [place] [address] 18606- 4266 Nov, Gait instability R26.81 [facility] [id number] [place] [address] 06115- 5631 Nov, Anxiety F41.9 [facility] [id number] [place] [address] 13170- 0135 Nov, [facility] [id number] [place] [address] 65131- 3151 Nov, [facility] [id number] [place] [address] 72349- 8527 Oct, Gait instability R26.81 [facility] [id number] [place] [address] 76153- 3020 Oct, Anxiety F41.9 [facility] [id number] [place] [address] 35118- 6843 Oct, Gait instability R26.81 [facility] [address] [place] [address] 03703- 1454 Oct, Gait instability R26.81 [facility] [address] [address]- 7103 Oct, [facility] [id number] [address]- 1833 Oct, Anxiety F41.9 ; Chronic 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 use Z79.899 ; Encounter for immunization Z23 and Transient cerebral ischemia, unspecified transient cerebral ischemia type G45.9 [facility] [id number] [address]- 2460 September, [facility] [id number] [address]- 0126 September, Gait instability R26.81 [facility] [id number] [address]- 8970 September, [facility] [id number] [address]- 9860 September, [facility] [id number] [address]- 4669 September, [facility] [address] [address]- 4437 September, 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 and 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 [facility] [address] [address]- 5032 September, [facility] [address] [address]- 8390 September, [facility] [address] [address]- 6833 September, [facility] [address] [address]- 6782 September, 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 [facility] [id number] [address]- 5086 Aug, 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 ; 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 ; Other acute pulmonary embolism without acute cor pulmonale I26.99 and Cough R05 [facility] [id number] [place] [address] 36959- 4763 Aug, [facility] [id number] [place] [address] 13627- 2873 Aug, Gait instability R26.81 [facility] [address] 22840- 3622 Aug, 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 and 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 [place] [id number] [place] [address] 89496- 1993 Aug, [place] [id number] [place] [address] 55767- 2438 Aug, 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 [place] [id number] [place] [address] 75115- 1199 Jul, 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 [place] [id number] [place] [address] 16661- 2318 Jul, [place] [id number] [place] [address] 38452- 1444 Jul, 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 [place] [id number] [place] [address] 91636- 8577 Jul, Anxiety F41.9 ; 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 and Transient cerebral ischemia, unspecified transient cerebral ischemia type G45.9 [facility] [id number] [place] [address] 79086- 7585 Jun, Essential hypertension I10 [facility] [id number] [place] [address] 95445- 6820 Jun, [facility] [id number] [place] [address] 33817- 7809 Jun, [facility] [id number] [place] [address] 51155- 3997 Jun, [facility] [id number] [place] [address] 479458- 4938 Jun, Essential hypertension I10 ; Benign non-nodular prostatic hyperplasia with lower urinary tract symptoms N40.1 ; Anxiety F41.9 ; Pain in right knee M25.561 ; Pain in left knee M25.562 and Other chronic pain G89.29 [facility] [id number] [place] [address] 78026- 4825 May, [facility] [id number] [place] [address] 71414- 5098 May, [facility] [id number] [place] [address] 56998- 3736 May, [facility] [id number] [place] [address] 61498- 9269 Apr, [facility] [id number] [place] [address] 68940- 2618 Mar, [facility] [id number] [place] [address] 56359- 8978 Mar, Mixed hyperlipidemia E78.2 and Essential hypertension I10 [facility] [id number] [place] [address] 78028- 7458 Feb, [facility] [id number] [place] [address] 82328- 8079 Feb, Ingrown nail L60.0 and Onychomycosis B35.1 [facility] [id number] [place] [address] 99351- 9899 Feb, Paronychia, left L03.012 [facility] [id number] [place] [address] 47691- 5833 Jan, [facility] [address] [place] [address]- 3733 07 Jan, 2016 Cramps of right lower extremity R25.2 and Mixed hyperlipidemia E78.2 [facility] [id number] [place] [address] 32170- 6912 Jan, Cramps of right lower extremity R25.2 ; Essential hypertension I10 ; Mixed hyperlipidemia E78.2 ; Chronic 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 use Z79.899 and Claudication I73.9 [facility] [id number] [place] [address] 60190- 8923 Jan, Right leg pain M79.604 [facility] [id number] [place] [address] 96981- 0327 Dec, [facility] [id number] [place] [address] 02755- 5371 Nov, [facility] [id number] [place] [address] 28854- 6299 Nov, [facility] [id number] [place] [address] 49838- 9763 Nov, [facility] [id number] [place] [address] 27845- 0901 Nov, Dermatofibroma D23.9 [facility] [id number] [place] [address] 30263- 6029 Nov, [facility] [id number] [place] [address] 60091- 3448 Oct, [facility] [id number] [place] [address] 04719- 3564 Oct, [facility] [id number] [place] [address] 25753- 9213 September, Benign non-nodular prostatic hyperplasia with lower urinary tract symptoms N40.1 ; Essential hypertension I10 ; Overactive bladder N32.81 and Fatigue, unspecified type R53.83 [facility] [id number] [place] [address] 86369- 1679 September, [facility] [address] 6170 September, [facility] [id number] [place] [address] 46556- 0933 Aug, [facility] [id number] [place] [address] 446080- 9935 Jul, [facility] [id number] [place] [address] 29704- 1186 Jul, Pelvic pain R10.2 ; Jock itch B35.6 ; Essential hypertension I10 and Hydrocele, unspecified hydrocele type N43.3 [facility] [id number] [place] [address] 42117- 1971 Jun, [facility] [id number] [place] [address] 65059- 9983 Jun, [facility] [id number] [place] [address] 64981- 5872 Jun, Benign non-nodular prostatic hyperplasia with lower urinary tract symptoms N40.1 [facility] [id number] [place] [address] 25898- 8783 Jun, Benign non-nodular prostatic hyperplasia with lower urinary tract symptoms N40.1 [facility] [address] [address]- 9533 Jun, [facility] [address] May, [facility] [address]- 9276 Apr, [facility] [address] 4080 Apr, [facility] [address] 7032 Apr, Other acute pulmonary embolism without acute cor pulmonale I26.99 ; Anxiety F41.9 ; 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 and technician terminal and repeater 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 use Z79.899 [facility] [address] 11484- 2887 Apr, [facility] [address] 23734- 3857 Apr, [facility] [address] 20239- 8809 Mar, [facility] [address] 13318- 6859 Mar, [facility] [address] 94188- 5548 Feb, Cough R05 [facility] [address] 85886- 3109 Feb, [facility] [address] 59092- 8730 Feb, Encounter for immunization Z23 [facility] [address] 72173- 1068 Feb, Other and unspecified hyperlipidemia 272.4 [facility] [address] 50740- 9728 Jan, [facility] [address] 73174- 1355 Jan, TIA (transient ischemic attack) 435.9 [facility] [id number] [place] [address] 58790- 8198 Dec, [facility] [address] 37393- 8666 Dec, [facility] [address] 26798- 5088 Dec, [facility] [address] 33994- 2546 Nov, [facility] [address] [address]- 1181 Oct, Chronic cough 786.2 [facility] [address]- 3447 Oct, [facility] [address] [address]- 1456 Oct, [facility] [id number] [place] [address] 14104- 8585 Oct, [facility] [id number] [place] [address] 465289- 0489 Oct, [facility] [id number] [place] [address] 46610- 5827 Oct, Chronic cough 786.2 [facility] [address] [place] [address] 12391- 8347 Oct, Cough 786.2 ; Hypertension 401.9 ; BPH (benign prostatic hyperplasia) 600.00 ; Other and unspecified hyperlipidemia 272.4 and Hydrocele 603.9 [facility] [address] [address]- 5617 Oct, [facility] [address] [address]- 9206 September, [facility] [address] [address]- 1301 Aug, [facility] [address] [address]- 7485 Aug, [facility] [id number] [place] [address] 329541- 0458 Jul, [facility] [address]- 0137 Jul, [facility] [id number] [place] [address] 764011- 8364 Jul, [facility] [place] [facility] [address] [id number] [place] [address]- 4714 Jul, [facility] [place] [facility] [address] [id number] [place] [address]- 6308 Jul, [facility] [place] [facility] [address] [id number] [place] [address]- [address] Jun, 2014 [facility] [place] [facility] [address] [id number] [place] [address] Jun, 2014 [facility] [place] [facility] [address] [id number] [place] [address] Jun, [facility] [place] [facility] [address] [id number] [place] [address] Jun, 2014 [facility] [place] [facility] [address] [id number] [place] [address] Jun, [facility] [place] [facility] [address] [id number] [place] [address] Jun, [facility] [place] [facility] [address] [id number] [place] [address] Jun, [facility] [place] [facility] [address] [id number] [place] [address] Jun, [facility] [place] [facility] [address] [id number] [place] [address] May, [facility] [place] [facility] [address] [id number] [place] [address] May, [facility] [place] [facility] [address] [id number] [place] [address] May, [facility] [place] [facility] [address] [id number] [place] [address] May, [facility] [place] [facility] [address] [id number] [place] [address] May, [facility] [place] [facility] [address] [id number] [place] [address] May, [facility] [address] [id number] [place] [address] May, [facility] [place] [facility] [address] [id number] [place] [address] May, [facility] [address] [id number] [place] [address] May, [facility] [address] [id number] [place] [address] May, [facility] [address] [id number] [place] Apr, [facility] [address] [id number] [place] [address] Apr, [facility] [facility] [address] [id number] [place] [address] Apr, [facility] [address] [id number] [place] [address] Apr, [facility] [address] [id number] [place] [address] Apr, [facility] [address] [id number] [place] [address] Apr, [facility] [place] [facility] [address] [id number] [place] [address] Apr, [facility] [place] [facility] [address] [id number] [place] [address] Apr, [facility] [place] [facility] [address] [id number] [place] [address] 68[address] Mar, [facility] [place] [facility] [address] [id number] [place] [address] Mar, [facility] [place] [facility] [address] [id number] [place] [address] Mar, [facility] [place] [facility] [address] [id number] [place] [address] Mar, [facility] [place] [facility] [address] [id number] [place] [address] 8[address] Mar, [facility] [place] [facility] [address] [id number] [place] [address]- 1621 Mar, [facility] [place] [facility] [address] [id number] [place] [address] Mar, [facility] [place] [facility] [address] [id number] [place] [address]- 4748 Mar, [facility] [place] [facility] [address] [id number] [place] [address]- 4104 Mar, [facility] [place] [facility] [address] [id number] [place] [address]- 1046 Mar, [facility] [place] [facility] [address] [id number] [place] [address]- 5[address] Feb, [facility] [place] [facility] [address] [id number] [place] [address]- 5368 Feb, [facility] [place] [facility] [address] [id number] [place] [address]- 2817 Feb, [facility] [place] [facility] [address] [id number] [place] [address]- 6[address] Feb, [facility] [place] [facility] [address] [id number], [place] [address] Feb, [facility] [place] [facility] [address] [id number] [place] [address]- 3609 Feb, [facility] [place] [facility] [address] [id number] [place] [address]- 9890 30 Jan, 2014 [facility] [place] [facility] [address] [id number] [place] [address] 30 Jan, 2014 [facility] [place] [facility] [address] [id number] [place] [address]- 6519 24 Sep, 2013 [facility] [place] [facility] [address] [id number] [place] [address]- 7815 24 Sep, 2013 [facility] [place] [facility] [address] [id number] [place] [address]- 1056 19 Jan, 2013 [facility] [place] [facility] [address] [id number] [place] [address]- 5526 19 Jan, 2013 [facility] [place] [facility] [address] [id number] [place] [address]- 8414 16 Jan, 2013 [facility] [place] [facility] [address] [id number] [place] [address]- 6701 16 Jan, 2013 [facility] [place] [facility] [address] [id number] [place] [address]- 8141 16 Jan, 2013 [facility] [place] [facility] [address] [id number] [place] [address]- 7411 16 Jan, 2013 [facility] [place] [facility] [address] [id number] [place] [address]- 1748 12 Jan, 2013 [facility] [place] [facility] [address] [id number] [place] [address]- [address]594 12 Jan, 2013 [facility] [place] [facility] [address] [id number] [place] [address]- 2844 Dec, [facility] [place] [facility] [address] [id number] [place] [address]- 9429 Dec, [facility] [place] [facility] [address] [id number], [place] [address] Dec, [facility] [place] [facility] [address] [id number] [place] [address]- 0724 Dec, [facility] [place] [facility] [address] [id number] [place] [address]- 4105 Dec, [facility] [place] [facility] [address] [id number] [place] [address]- 9007 Dec, [facility] [place] [facility] [address] [id number] [place] [address]- [address] Nov, [facility] [place] [facility] [address] [id number] [place] [address]- 0761 Nov, [facility] [place] [facility] [address] [id number] [place] [address]- 1057 Nov, [facility] [place] [facility] [address] [id number] [place] [address]- 7689 Nov, [facility] [place] [facility] [address] [id number] [place] [address]- 6169 Nov, [facility] [place] [facility] [address] [id number] [place] [address]- 4843 Nov, [facility] [place] [facility] [address] [id number] [place] [address]- 2599 Nov, [facility] [place] [facility] [address] [id number] [place] [address]- 2758 Nov, [facility] [place] [facility] [address] [id number] [place] [address]- 6340 Oct, [facility] [place] [facility] [address] [id number] [place] [address]- 0439 Oct, [facility] [place] [facility] [address] [id number] [place] [address]- 6780 Oct, [facility] [place] [facility] [address] [id number] [place] [address]- 1385 Oct, [facility] [place] [facility] [address] [id number] [place] [address]- 8468 September, [facility] [place] [facility] [address] [id number] [place] [address]- 2027 September, [facility] [place] [facility] [address] [id number] [place] [address]- 3377 September, [facility] [place] [facility] [address] [id number] [place] [address]- 4082 September, [facility] [place] [facility] [address] [id number] [place] [address]- 4572 September, [facility] [place] [facility] [address] [id number] [place] [address]- 6390 September, [facility] [place] [facility] [address] [id number] [place] [address]- 9868 Aug, [facility] [place] [facility] [address] [id number] [place] [address]- 7341 Aug, [facility] [place] [facility] [address] [id number] [place] [address]- 3079 Aug, [facility] [place] [facility] [address] [id number] [place] [address]- 6338 Aug, [facility] [place] [facility] [address] [id number] [place] [address]- 6292 Aug, [facility] [place] [facility] [address] [id number] [place] [address]- 8890 Aug, [facility] [place] [facility] [address] [id number] [place] [address]- 3832 Aug, [facility] [place] [facility] [address] [id number] [place] [address]- 8667 Aug, [facility] [place] [facility] [address] [id number] [place] [address]- 7792 Jul, [facility] [place] [facility] [address] [id number] [place] [address]- 9596 Jul, [facility] [place] [facility] [address] [id number] [place] [address]- 6931 Jun, [facility] [place] [facility] [address] [id number] [place] [address]- 6856 Jun, [facility] [place] [facility] [address] [id number] [place] [address]- 1938 Jun, [facility] [place] [facility] [address] [id number] [place] [address]- 1450 Jun, [facility] [address] [id number] [place] [address]- 2925 Jun, [facility] [place] [facility] [address] [id number] [place] [address]- 7805 May, [facility] [place] [facility] [address] [id number] [place] [address]- 4224 May, [facility] [place] [facility] [address] [id number] [place] [address]- 6481 May, [facility] [place] [facility] [address] [id number] [place] [address]- 8782 May, [facility] [place] [facility] [address] [id number] [place] [address]- 4892 Apr, [facility] [place] [facility] [address] [id number] [place] [address]- 4344 Apr, [facility] [address] [id number] [place] [address]- 0060 Mar, [facility] [place] [facility] [address] [id number] [place] [address]- 3727 Mar, [facility] [address] [id number] [place] [address]- 5037 Feb, [facility] [place] [facility] [address] [id number] [place] [address]- 1057 Feb, [facility] [place] [facility] [address] [id number] [place] [address]- 4008 Feb, [facility] [place] [facility] [address] [id number] [place] [address]- 2995 Feb, [facility] [place] [facility] [address] [id number] [place] [address]- 9116 Feb, [facility] [place] [facility] [address] [id number] [place] [address]- 8851 Feb, [facility] [place] [facility] [address] [id number] [place] [address]- 3831 Feb, [facility] [place] [facility] [address] [id number] [place] [address]- 8411 Jan, [facility] [place] [facility] [address] [id number] [place] [address]- 9383 Jan, [facility] [place] [facility] [address] [id number] [place] [address]- 2996 Dec, [facility] [place] [facility] [address] [id number] [place] [address]- 5684 Dec, [facility] [place] [facility] [address] [id number] [place] [address]- 0059 Dec, [facility] [place] [facility] [address] [id number] [place] [address]- 2507 Dec, [facility] [place] [facility] [address] [id number] [place] [address]- 1421 Dec, [facility] [place] [facility] [address] [id number] [place] [address]- 4947 Nov, [facility] [place] [facility] [address] [id number] [place] [address]- 6835 Nov, [facility] [place] [facility] [address] [id number] [place] [address]- 0786 Nov, [facility] [place] [facility] [address] [id number] [address]- 9352 Oct, [facility] [place] [facility] [address] [id number] [place] [address]- 8313 Oct, [facility] [place] [facility] [address] [id number] [place] [address]- 2972 Oct, [facility] [place] [facility] [address] [id number] [place] [address]- 7271 September, [facility] [place] [facility] [address] [id number] [place] [address]- 6843 Aug, [facility] [address] [id number] [place] [address]- 9344 Aug, [facility] [place] [facility] [address] [id number] [place] [address]- 8769 Aug, [facility] [address] [id number] [place] [address]- 1820 Jul, [facility] [place] [facility] [address] [id number] [place] [address]- 8279 Jul, [facility] [place] [facility] [address] [id number] [place] [address]- 0863 Jul, [facility] [place] [facility] [address] [id number] [place] [address]- 9806 Jul, [facility] [address] [id number] [place] [address]- 0539 Jul, [facility] [place] [facility] [address] [id number] [place] [address]- 3993 Jun, [facility] [place] [facility] [address] [id number] [place] [address]- 5893 Jun, [facility] [address] [id number] [place] [address]- 6775 May, [facility] [place] [facility] [address] [id number] [place] [address]- 5284 May, [facility] [place] [facility] [address] [id number] [place] [address]- 4194 Apr, [facility] [place] [facility] [address] [id number] [place] [address]- 4266 Apr, [facility] [place] [facility] [address] [id number] [place] [address]- 7156 Mar, [facility] [place] [facility] [address] [id number] [place] [address]- 8064 Mar, [facility] [place] [facility] [address] [id number] [place] [address]- 2546 Mar, [facility] [place] [facility] [address] [id number] [place] [address]- 2546 Mar, [facility] [address] [facility] [address] [id number] [place] [id number] Feb, [facility] [place] [facility] [address] [id number] [place] [address]- 7836 Feb, [facility] [place] [facility] [address] [id number] [place] [address]- 5936 Feb, [facility] [place] [facility] [address] [id number] [place] [address]- 8796 Feb, [facility] [place] [facility] [address] [id number] [place] [address]- 2821 Feb, [facility] [place] [facility] [address] [id number] [place] [address]- 0246 Feb, [facility] [place] [facility] [address] [id number] [place] [address]- 6095 Feb, [facility] [place] [facility] [address] [id number] [place] [address]- 2986 Jan, [facility] [place] [facility] [address] [id number] [place] [address]- 2546 Jan, [facility] [place] [facility] [address] [id number] [place] [address]- 2546 Dec, [facility] [place] [facility] [address] [id number] [place] [address]- 2546 Dec, [facility] [place] [facility] [address] [id number] [place] [address]- 2546 Nov, [facility] [place] [facility] [address] [id number] [place] [address]- 2546 Oct, [facility] [place] [facility] [address] [id number] [place] [address]- 4691 September, [facility] [address] [id number] [place] [address]- 7214 September, [facility] [place] [facility] [address] [id number] [place] [address]- 5069 September, [facility] [place] [facility] [address] [id number] [place] [address]- 0350 Aug, [facility] [place] [facility] [address] [id number] [place] [address]- 3913 May, [facility] [place] [facility] [address] [id number] [place] [address]- 2515 May, [facility] [place] [facility] [address] [id number] [place] [address]- 6737 Apr, [facility] [place] [facility] [address] [id number] [place] [address]- 2368 Apr, [facility] [place] [facility] [address] [id number] [place] [address]- 0400 Apr, [facility] [place] [facility] [address] [id number] [place] [address]- 3781 Apr, [facility] [place] [facility] [address] [id number] [place] [address]- 0406 Apr, [facility] [place] [facility] [address] [id number], [place] [address]- 7483 Mar, [facility] [place] [facility] [address] [id number], [place] [address]- 8871 Feb, [facility] [place] [facility] [address] [id number] [place] [address]- 6076 Feb, [facility] [place] [facility] [address] [id number], [place] [address]- 2758 September, [facility] [place] [facility] [address] [id number] [place] [address]- 7366 Mar, [facility] [place] [facility] [address] [facility] [id number] [place] [address]- 1062 14 Feb, 2010 [facility] [address] [facility] [id number] [place] [address]- 8603 11 Feb, 2010 [facility] [address] [facility] [id number] [place] [address]- 1732 11 Feb, 2010 IMMUNIZATIONS No Known Immunizations SOCIAL HISTORY Never Assessed REASON FOR VISIT PLAN OF CARE VITAL SIGNS MEDICATIONS Unknown [...] foot fracture Hospitalization History Via [facility] [place]- Back Pain 03/24/2017
--- OUTSIDE RECORDS SUMMARY | 2018-04-10 17:51 | XMS REPORT ---
Author Author CONNER ROCHE Organization [facility] Address [address] [place] [address] Care Team Providers Care Telemetry Rn Name Role Phone CONNER ROCHE Unavailable PROBLEMS Type Condition ICD9-CM Code HPT10-XQ Code Onset Dates Condition Status SNOMED Code Problem Color blindness H53.50 Active 597662030 Problem Presbyopia of both eyes H52.4 Active 54592633 Problem Nuclear senile cataract of both eyes H25.13 Active 066298303 Problem Astigmatism of both eyes, unspecified type H52.203 Active 81121236 Problem Essential hypertension I10 Active 66853027 Problem Other chronic pain G89.29 Active 67755345 Problem Hypermetropia of both eyes H52.03 Active 94055328 Problem Alzheimer's disease, unspecified G30.9 Active 090976970 Problem 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 Active 646874650 Problem 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 Active 906716715 Problem Gait instability R26.81 Active 80905084 Problem 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 Active 692990762 Problem Arthritis, 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 Active 438851287 Problem PVD (peripheral vascular disease) I73.9 Active 672042827 Problem 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 Active 940417204 Problem Hydrocele, unspecified hydrocele type N43.3 Active 05200834 Problem Other acute pulmonary embolism without acute cor pulmonale I26.99 Active 605441627 Problem At high risk for falls Z91.81 Active [id number] Problem Asymptomatic microscopic hematuria R31.21 Active 863784882 Problem Major depressive disorder, single episode, mild F32.0 Active 28920855 Problem Chronic fatigue R53.82 Active 88100030 Problem Benign non-nodular prostatic hyperplasia with lower urinary tract symptoms N40.1 Active 996064074 Problem Transient cerebral ischemia, unspecified transient cerebral ischemia type G45.9 Active 864657552 Problem Renal cyst, left Q61.00 Active 19876972 Problem 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 Active 97826385 Problem Anxiety F41.9 Active 98825945 Problem Overactive bladder N32.81 Active 624244048 Problem Primary insomnia F51.01 Active 478034248 Problem Mixed hyperlipidemia E78.2 Active 107016136 ALLERGIES No Information ENCOUNTERS Encounter Location Date Diagnosis [facility] [address] [address] Feb, [facility] [address] [address] Feb, [facility] [address] [address] Feb, [facility] [address] [address]- [address] Feb, Encounter for immunization Z23 [facility] [address] [address] Jan, Flank pain R10.9 [facility] [address] [address] Jan, [facility] [address] [address] Dec, [facility] [address] [address]- [address] Dec, [facility] [address] [address]- [address] Dec, 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 and 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 [facility] [address] [address]- [address] Dec, Left flank pain R10.9 and Arthritis, 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 [facility] [address] [address]- [address] Dec, [facility] [address] [place] [address] Nov, Essential hypertension I10 and Mixed hyperlipidemia E78.2 [facility] [address] [address]- [address] Oct, Edema leg R60.0 [facility] [id number] [place] [address] 12006- 4376 September, [facility] [address] [address]- [address] September, 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 and 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 [facility] [address] [address]- [address] September, PVD (peripheral vascular disease) I73.9 ; Major depressive disorder, single episode, mild F32.0 ; Chronic fatigue R53.82 ; Weight gain R63.5 and Arthralgia, unspecified joint M25.50 [facility] [id number] [place] [address] 43853- 2648 Aug, Acute low back pain, unspecified back pain laterality, with sciatica presence unspecified M54.5 [facility] [id number] [place] [address] 25811- 8717 Aug, Acute low back pain, unspecified back pain laterality, with sciatica presence unspecified M54.5 [facility] [id number] [place] [address] 78604- 0657 Aug, Pain R52 [facility] [id number] [place] [address] 20770- 0114 Jul, [facility] [address] [address]- 2457 Jun, [facility] [id number] [place] [address] 80189- 3445 07 Jun, 2017 Medicare annual wellness visit, initial Z00.00 ; Mixed hyperlipidemia E78.2 ; Essential hypertension I10 ; Anxiety F41.9 ; 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 ; 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 ; Overactive bladder N32.81 ; Primary insomnia F51.01 ; At high risk for falls Z91.81 and Encounter for immunization Z23 [facility] [id number] [place] [address] 54509- 4229 May, [facility] [id number] [place] [address] 11442- 4347 May, Essential hypertension I10 and Transient cerebral ischemia, unspecified transient cerebral ischemia type G45.9 [facility] [id number] [place] [address] [id number] May, Dental examination Z01.20 and Dental caries K02.9 [facility] [id number] [place] [address] 48056- 2811 May, [facility] [address] [address]- 1972 May, [facility] [id number] [place] [address] 70109- 8752 May, 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 [facility] [id number] [place] [address] 69848- 8150 Apr, [facility] [id number] [place] [address] 41391- 3867 Apr, 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 and 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 [facility] [id number] [place] [address] 14016- 0635 Mar, 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 [facility] [id number] [place] [address] 46207- 9370 Mar, Mixed hyperlipidemia E78.2 ; Essential hypertension I10 ; Asymptomatic microscopic hematuria R31.21 and Renal cyst, left Q61.00 [facility] [id number] [place] [address] 00170- 2494 Mar, [facility] [address] [address] 7[address] Feb, Encounter for immunization Z23 [facility] [id number] [place] [address] 47589- 5499 Feb, [facility] [id number] [place] [address] 42436- 9858 Feb, [facility] [id number] [place] [address] 90373 -1361 Feb, ANUG (acute necrotizing ulcerative gingivitis) A69.1 [facility] [id number] [place] [address] 41520- 0258 Feb, [facility] [id number] [place] [address] 94410- 5444 Feb, 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 [facility] [id number] [place] [address] 64123- 1353 Feb, 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 and 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 [facility] [id number] [place] [address] 02936- 6009 Jan, 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 [facility] [id number] [address]- 46[address] Jan, Gait instability R26.81 [facility] [address] [id number] [place] [address] Jan [facility] [address] [id number] [place] [address] Dec [facility] [address] [address]- 6579 Dec, [facility] [address] [address]- 2473 Dec, [facility] [id number] [place] [address] 86569- 6697 Dec, Essential hypertension I10 ; Transient cerebral ischemia, unspecified transient cerebral ischemia type G45.9 and Anxiety F41.9 [facility] [id number] [place] [address] 48373- 7642 Dec, Gait instability R26.81 [facility] [id number] [place] [address] 76458- 8149 Dec, [facility] [id number] [place] [address] 49870- 5154 Nov, 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 and 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 [facility] [id number] [place] [address] 09061- 4743 Nov, [facility] [id number] [place] [address] 37927- 5872 Nov, Gait instability R26.81 [facility] [id number] [place] [address] 57585- 5839 Nov, Anxiety F41.9 [facility] [id number] [place] [address] 74008- 0102 Nov, [facility] [id number] [place] [address] 24661- 3986 Nov, [facility] [id number] [place] [address] 23908- 7749 Oct, Gait instability R26.81 [facility] [id number] [place] [address] 14460- 5119 Oct, Anxiety F41.9 [facility] [id number] [place] [address] 29133- 6518 Oct, Gait instability R26.81 [facility] [id number] [place] [address] 22098- 1988 Oct, Gait instability R26.81 [facility] [address] [address]- 385[address] Oct, [facility] [id number] [address]- 4932 Oct, Anxiety F41.9 ; Chronic 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 use Z79.899 ; Encounter for immunization Z23 and Transient cerebral ischemia, unspecified transient cerebral ischemia type G45.9 [facility] [id number] [address]- 7780 September, [facility] [id number] [address]- 7420 September, Gait instability R26.81 [facility] [id number] [address]- 1028 September, [facility] [id number] [address]- 9073 September, [facility] [id number] [address]- 1882 September, [facility] [address] [address]- 2718 September, 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 and 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 [facility] [address] [address]- 9294 September, [facility] [address] [address]- 2976 September, [facility] [address], [place] [address]- 6282 September, [facility] [id number], [place] [address]- 6106 September, 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 [facility] [id number] [address]- 5618 Aug, 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 ; 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 ; Other acute pulmonary embolism without acute cor pulmonale I26.99 and Cough R05 [facility] [id number] [place] [address] 95958- 8026 Aug, [facility] [id number] [place] [address] 55579- 7418 Aug, Gait instability R26.81 [facility] [address] 016[address]- 5962 Aug, 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 and 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 [facility] [place] [id number] [place] [address] 69988- 9878 Aug, [place] [id number] [place] [address] 35627- 6456 Aug, 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 [place] [place] [id number] [place] [address] 79398- 9633 Jul, 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 [place] [place] [id number] [place] [address] 59770- 4808 Jul, [facility] [place] [id number] [place] [address] 30937- 3935 Jul, 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 [place] [place] [id number] [place] [address] 80911- 5838 Jul, Anxiety F41.9 ; 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 and Transient cerebral ischemia, unspecified transient cerebral ischemia type G45.9 [facility] [id number] [place] [address] 52030- 3088 Jun, Essential hypertension I10 [facility] [id number] [place] [address] 20357- 8462 Jun, [facility] [id number] [place] [address] 13516- 2812 Jun, [facility] [id number] [place] [address] 67718- 8991 Jun, [facility] [id number] [place] [address] 702636- 1681 Jun, Essential hypertension I10 ; Benign non-nodular prostatic hyperplasia with lower urinary tract symptoms N40.1 ; Anxiety F41.9 ; Pain in right knee M25.561 ; Pain in left knee M25.562 and Other chronic pain G89.29 [facility] [id number] [place] [address] 77464- 7694 May, [facility] [id number] [place] [address] 27359- 6611 May, [facility] [id number] [place] [address] 07987- 0784 May, [facility] [id number] [place] [address] 79305- 6889 Apr, [facility] [id number] [place] [address] 22056- 2259 Mar, [facility] [id number] [place] [address] 91787- 1701 Mar, Mixed hyperlipidemia E78.2 and Essential hypertension I10 [facility] [id number] [place] [address] 08539- 5379 Feb, [facility] [id number] [place] [address] 82415- 8883 Feb, Ingrown nail L60.0 and Onychomycosis B35.1 [facility] [id number] [place] [address] 55713- 6655 Feb, Paronychia, left L03.012 [facility] [id number] [place] [address] 39816- 1746 Jan, [facility] [address] [place] [address]- 9124 07 Jan, 2016 Cramps of right lower extremity R25.2 and Mixed hyperlipidemia E78.2 [facility] [id number] [place] [address] 57424- 1359 Jan, Cramps of right lower extremity R25.2 ; Essential hypertension I10 ; Mixed hyperlipidemia E78.2 ; Chronic 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 use Z79.899 and Claudication I73.9 [facility] [id number] [place] [address] 58982- 7626 Jan, Right leg pain M79.604 [facility] [id number] [place] [address] 88869- 6153 Dec, [facility] [id number] [place] [address] 53403- 0099 Nov, [facility] [id number] [place] [address] 93765- 8211 Nov, [facility] [id number] [place] [address] 62924- 4194 Nov, [facility] [id number] [place] [address] 29721- 8711 Nov, Dermatofibroma D23.9 [facility] [id number] [place] [address] 95044- 4202 Nov, [facility] [id number] [place] [address] 84615- 4632 Oct, [facility] [id number] [place] [address] 34179- 5566 Oct, [facility] [id number] [place] [address] 00075- 8863 September, Benign non-nodular prostatic hyperplasia with lower urinary tract symptoms N40.1 ; Essential hypertension I10 ; Overactive bladder N32.81 and Fatigue, unspecified type R53.83 [facility] [id number] [place] [address] 49428- 9194 September, [facility] [address] 9468 September, [facility] [id number] [place] [address] 43172- 4518 Aug, [facility] [id number] [place] [address] 094959- 7220 Jul, [facility] [id number] [place] [address] 25005- 0189 Jul, Pelvic pain R10.2 ; Jock itch B35.6 ; Essential hypertension I10 and Hydrocele, unspecified hydrocele type N43.3 [facility] [id number] [place] [address] 58124- 7371 Jun, [facility] [id number] [place] [address] 06009- 4658 Jun, [facility] [id number] [place] [address] 98502- 7181 Jun, Benign non-nodular prostatic hyperplasia with lower urinary tract symptoms N40.1 [facility] [id number] [place] [address] 30705- 0962 Jun, Benign non-nodular prostatic hyperplasia with lower urinary tract symptoms N40.1 [facility] [address] [address]- 2822 Jun, [facility] [address] [address]- 9836 May, [facility] [address] 6018 Apr, [facility] [address] 8199 Apr, [facility] [address] 5770 Apr, Other acute pulmonary embolism without acute cor pulmonale I26.99 ; Anxiety F41.9 ; 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 and 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 [facility] [address] 28812- 4907 Apr, [facility] [address] 15356- 8077 Apr, [facility] [address] 93823- 7458 Mar, [facility] [address] 50043- 3652 Mar, [facility] [address] 70968- 5977 Feb, Cough R05 [facility] [address] 90206- 9364 Feb, [facility] [address] 78001- 3457 Feb, Encounter for immunization Z23 [facility] [address] 03541- 9889 Feb, Other and unspecified hyperlipidemia 272.4 [facility] [address] 51161- 9863 Jan, [facility] [address] 57935- 8086 Jan, TIA (transient ischemic attack) 435.9 [facility] [id number] [place] [address] 29762- 9317 Dec, [facility] [address] 50726- 1297 Dec, [facility] [address] 47005- 2670 Dec, [facility] [address] 35530- 2546 Nov, [facility] [address], [place] [address]- 5862 Oct, Chronic cough 786.2 [facility] [address] 2567 Oct, [facility] [address] [address]- 3936 Oct, [facility] [id number] [place] [address] 03099- 4803 Oct, [facility] [id number] [place] [address] [id number]- [address] Oct, [facility] [id number] [place] [address] Oct, Chronic cough 786.2 [facility] [id number] [place] [address] Oct, Cough 786.2 ; Hypertension 401.9 ; BPH (benign prostatic hyperplasia) 600.00 ; Other and unspecified hyperlipidemia 272.4 and Hydrocele 603.9 [facility] [id number] [address] Oct, [facility] [id number] [address] September, [facility] [id number] [address] Aug, [facility] [id number] [address] Aug, [facility] [id number] [place] [address] [id number]- [address] Jul, [facility] [id number] [address] Jul, [facility] [id number] [place] [address] 469[address]- [address] Jul, [facility] [place] [facility] [address] [id number] [place] [address] Jul, [facility] [place] [facility] [address] [id number] [place] [address] Jul, [facility] [place] [facility] [address] [id number] [place] [address] Jun, 2014 [facility] [place] [facility] [address] [id number] [place] [address] Jun, 2014 [facility] [place] [facility] [address] [id number] [place] [address] Jun, [facility] [place] [facility] [address] [id number] [place] [address] Jun, 2014 [facility] [place] [facility] [address] [id number] [place] [address] Jun, [facility] [place] [facility] [address] [id number] [place] [address]- [address] Jun, [facility] [place] [facility] [address] [id number] [place] [address] Jun, [facility] [place] [facility] [address] [id number] [place] [address] Jun, [facility] [place] [facility] [address] [id number] [place] [address] 83[address] May, [facility] [place] [facility] [address] [id number] [place] [address] 2506 May, [facility] [place] [facility] [address] [id number] [place] [address] 9152 May, [facility] [place] [facility] [address] [id number] [place] [address] 3363 May, [facility] [place] [facility] [address] [id number] [place] [address] 6147 May, [facility] [place] [facility] [address] [id number] [place] [address] 3131 May, [facility] [address] [id number] [place] [address] 65[address] May, [facility] [place] [facility] [address] [id number] [place] [address] 6604 May, [facility] [address] [id number] [place] [address] 7875 May, [facility] [address] [id number] [place] [address] 4865 May, [facility] [address] [id number] [place] [address] Apr, [facility] [address] [id number] [place] [address] 1664 Apr, [facility] [address] [id number] [place] [address]- 3464 Apr, [facility] [address] [id number] [place] [address]- 2351 Apr, [facility] [address] [id number] [place] [address]- 5986 Apr, [facility] [address] [id number] [place] [address]- 2272 Apr, [facility] [place] [facility] [address] [id number] [place] [address] 5847 Apr, [facility] [place] [facility] [address] [id number] [place] [address] 8546 Apr, [facility] [place] [facility] [address] [id number] [place] [address] 8410 Mar, [facility] [place] [facility] [address] [id number] [place] [address]- 6083 Mar, [facility] [place] [facility] [address] [id number] [place] [address] 0137 Mar, [facility] [place] [facility] [address] [id number] [place] [address]- 0428 Mar, [facility] [place] [facility] [address] [id number] [place] [address]- 3723 Mar, [facility] [place] [facility] [address] [id number] [place] [address]- 7432 Mar, [facility] [place] [facility] [address] [id number] [place] [address]- 3323 Mar, [facility] [place] [facility] [address] [id number] [place] [address]- 9845 Mar, [facility] [place] [facility] [address] [id number] [place] [address]- 4502 Mar, [facility] [place] [facility] [address] [id number] [place] [address]- 4793 Mar, [facility] [place] [facility] [address] [id number] [place] [address]- 0078 Feb, [facility] [place] [facility] [address] [id number] [place] [address]- 4462 Feb, [facility] [place] [facility] [address] [id number] [place] [address]- 2686 Feb, [facility] [place] [facility] [address] [id number] [place] [address]- 9584 Feb, [facility] [place] [facility] [address] [id number] [address] 18[address] Feb, [facility] [place] [facility] [address] [id number] [place] [address]- 9233 Feb, [facility] [place] [facility] [address] [id number] [place] [address]- 9844 30 Jan, 2014 [facility] [place] [facility] [address] [id number] [place] [address] 30 Jan, 2014 [facility] [place] [facility] [address] [id number] [place] [address]- 2339 24 Sep, 2013 [facility] [place] [facility] [address] [id number] [place] [address]- 3970 24 Sep, 2013 [facility] [place] [facility] [address] [id number] [place] [address]- 8756 19 Jan, 2013 [facility] [place] [facility] [address] [id number] [place] [address]- 7156 19 Jan, 2013 [facility] [place] [facility] [address] [id number] [place] [address]- 3865 16 Jan, 2013 [facility] [place] [facility] [address] [id number] [place] [address]- 1997 16 Jan, 2013 [facility] [place] [facility] [address] [id number] [place] [address]- 5335 16 Jan, 2013 [facility] [place] [facility] [address] [id number] [place] [address]- 7483 16 Jan, 2013 [facility] [place] [facility] [address] [id number] [place] [address]- 3626 12 Jan, 2013 [facility] [place] [facility] [address] [id number] [place] [address]- 2689 12 Jan, 2013 [facility] [place] [facility] [address] [id number] [place] [address]- 5413 Dec, [facility] [place] [facility] [address] [id number] [place] [address]- 0642 Dec, [facility] [place] [facility] [address] [id number] [address] 2492 Dec, [facility] [place] [facility] [address] [id number] [place] [address]- 6024 Dec, [facility] [place] [facility] [address] [id number] [place] [address]- 7349 Dec, [facility] [place] [facility] [address] [id number] [place] [address]- 5046 Dec, [facility] [place] [facility] [address] [id number] [place] [address]- 9311 Nov, [facility] [place] [facility] [address] [id number] [place] [address]- 4202 Nov, [facility] [place] [facility] [address] [id number] [place] [address]- 0452 Nov, [facility] [place] [facility] [address] [id number] [place] [address]- 0528 Nov, [facility] [place] [facility] [address] [id number] [place] [address]- 5470 Nov, [facility] [place] [facility] [address] [id number] [place] [address]- 4615 Nov, [facility] [place] [facility] [address] [id number] [place] [address]- 5361 Nov, [facility] [place] [facility] [address] [id number] [place] [address]- 9901 Nov, [facility] [place] [facility] [address] [id number] [place] [address]- 2314 Oct, [facility] [place] [facility] [address] [id number] [place] [address]- 2234 Oct, [facility] [place] [facility] [address] [id number] [place] [address]- 0065 Oct, [facility] [place] [facility] [address] [id number] [place] [address]- 3578 Oct, [facility] [place] [facility] [address] [id number] [place] [address]- 8126 September, [facility] [place] [facility] [address] [id number] [place] [address]- 8725 September, [facility] [place] [facility] [address] [id number] [place] [address]- 1576 September, [facility] [place] [facility] [address] [id number] [place] [address]- 5720 September, [facility] [place] [facility] [address] [id number] [place] [address]- 5348 September, [facility] [place] [facility] [address] [id number] [place] [address]- 9029 September, [facility] [place] [facility] [address] [id number] [place] [address]- 4184 Aug, [facility] [place] [facility] [address] [id number] [place] [address]- 9965 Aug, [facility] [place] [facility] [address] [id number] [place] [address]- 7687 Aug, [facility] [place] [facility] [address] [id number] [place] [address]- 8221 Aug, [facility] [place] [facility] [address] [id number] [place] [address]- 4765 Aug, [facility] [place] [facility] [address] [id number] [place] [address]- 0732 Aug, [facility] [place] [facility] [address] [id number] [place] [address]- 0172 Aug, [facility] [place] [facility] [address] [id number] [place] [address]- 9466 Aug, [facility] [place] [facility] [address] [id number] [place] [address]- 7461 Jul, [facility] [place] [facility] [address] [id number] [place] [address]- 4402 Jul, [facility] [place] [facility] [address] [id number] [place] [address]- 0722 Jun, [facility] [place] [facility] [address] [id number] [place] [address]- 1266 Jun, [facility] [place] [facility] [address] [id number] [place] [address]- 9210 Jun, [facility] [place] [facility] [address] [id number] [place] [address]- 4313 Jun, [facility] [address] [id number] [place] [address]- 9415 Jun, [facility] [place] [facility] [address] [id number] [place] [address]- 3127 May, [facility] [place] [facility] [address] [id number] [place] [address]- 2949 May, [facility] [place] [facility] [address] [id number] [place] [address]- 4430 May, [facility] [place] [facility] [address] [id number] [place] [address]- 7568 May, [facility] [place] [facility] [address] [id number] [place] [address]- 2435 Apr, [facility] [place] [facility] [address] [id number] [place] [address]- 5449 Apr, [facility] [address] [id number] [place] [address]- 4237 Mar, [facility] [place] [facility] [address] [id number] [place] [address]- 7100 Mar, [facility] [address] [id number] [place] [address]- 2280 Feb, [facility] [place] [facility] [address] [id number] [place] [address]- 4225 Feb, [facility] [place] [facility] [address] [id number] [place] [address]- 8800 Feb, [facility] [place] [facility] [address] [id number] [place] [address]- 3681 Feb, [facility] [place] [facility] [address] [id number] [place] [address]- 8716 Feb, [facility] [place] [facility] [address] [id number] [place] [address]- 1443 Feb, [facility] [place] [facility] [address] [id number] [place] [address]- 7807 Feb, [facility] [place] [facility] [address] [id number] [place] [address]- 0486 Jan, [facility] [place] [facility] [address] [id number] [place] [address]- 2210 Jan, [facility] [place] [facility] [address] [id number] [place] [address]- 3197 Dec, [facility] [place] [facility] [address] [id number] [place] [address]- 0724 Dec, [facility] [place] [facility] [address] [id number] [place] [address]- 4864 Dec, [facility] [place] [facility] [address] [id number] [place] [address]- 9996 Dec, [facility] [place] [facility] [address] [id number] [place] [address]- 2071 Dec, [facility] [place] [facility] [address] [id number] [place] [address]- 3617 Nov, [facility] [place] [facility] [address] [id number] [place] [address]- 4998 Nov, [facility] [place] [facility] [address] [id number] [place] [address]- 7351 Nov, [facility] [place] [facility] [address] [id number] [address]- 9484 Oct, [facility] [place] [facility] [address] [id number] [place] [address]- 6133 Oct, [facility] [place] [facility] [address] [id number] [place] [address]- 0292 Oct, [facility] [place] [facility] [address] [id number] [place] [address]- 6055 September, [facility] [place] [facility] [address] [id number] [place] [address]- 3014 Aug, [facility] [address] [id number] [place] [address]- 9195 Aug, [facility] [place] [facility] [address] [id number] [place] [address]- 8060 Aug, [facility] [address] [id number] [place] [address]- 7834 Jul, [facility] [place] [facility] [address] [id number] [place] [address]- 0621 Jul, [facility] [place] [facility] [address] [id number] [place] [address]- 9225 Jul, [facility] [place] [facility] [address] [id number] [place] [address]- 9346 Jul, [facility] [address] [id number] [place] [address]- 5896 Jul, [facility] [place] [facility] [address] [id number] [place] [address]- 2190 Jun, [facility] [place] [facility] [address] [id number] [place] [address]- 3821 Jun, [facility] [address] [id number] [place] [address]- 9478 May, [facility] [place] [facility] [address] [id number] [place] [address]- 0666 May, [facility] [place] [facility] [address] [id number] [place] [address]- 5386 Apr, [facility] [place] [facility] [address] [id number] [place] [address]- 0965 Apr, [facility] [place] [facility] [address] [id number] [place] [address]- 6256 Mar, [facility] [place] [facility] [address] [id number] [place] [address]- 1513 Mar, [facility] [place] [facility] [address] [id number] [place] [address]- 2546 Mar, [facility] [place] [facility] [address] [id number] [place] [address]- 2546 Mar, [facility] [address] [facility] [address] [id number] [place] [id number] Feb, [facility] [place] [facility] [address] [id number] [place] [address]- 7936 Feb, [facility] [place] [facility] [address] [id number] [place] [address]- 8986 Feb, [facility] [place] [facility] [address] [id number] [place] [address]- 5326 Feb, [facility] [place] [facility] [address] [id number] [place] [address]- 0359 Feb, [facility] [place] [facility] [address] [id number] [place] [address]- 4726 Feb, [facility] [place] [facility] [address] [id number] [place] [address]- 3043 Feb, [facility] [place] [facility] [address] [id number] [place] [address]- 3086 Jan, [facility] [place] [facility] [address] [id number] [place] [address]- 2546 Jan, [facility] [place] [facility] [address] [id number] [place] [address]- 2546 Dec, [facility] [place] [facility] [address] [id number] [place] [address]- 2546 Dec, [facility] [place] [facility] [address] [id number] [place] [address]- 2546 Nov, [facility] [place] [facility] [address] [id number] [place] [address]- 2546 Oct, [facility] [place] [facility] [address] [id number] [place] [address]- 0952 September, [facility] [address] [id number] [place] [address]- 1867 September, [facility] [place] [facility] [address] [id number] [place] [address]- 9643 September, [facility] [place] [facility] [address] [id number] [place] [address]- 6269 Aug, [facility] [place] [facility] [address] [id number] [place] [address]- 9274 May, [facility] [place] [facility] [address] [id number] [place] [address]- 1050 May, [facility] [place] [facility] [address] [id number] [place] [address]- 2112 Apr, [facility] [place] [facility] [address] [id number] [place] [address]- 8717 Apr, [facility] [place] [facility] [address] [id number] [place] [address]- 1724 Apr, [facility] [place] [facility] [address] [id number] [place] [address]- 2163 Apr, [facility] [place] [facility] [address] [id number] [place] [address]- 1106 Apr, [facility] [place] [facility] [address] [id number], [place] [address]- 1258 Mar, [facility] [place] [facility] [address] [id number], [place] [address]- 3730 Feb, [facility] [place] [facility] [address] [id number] [place] [address]- 5477 Feb, [facility] [place] [facility] [address] [id number], [place] [address]- 6041 September, [facility] [place] [facility] [address] [id number] [place] [address]- 6908 Mar, [facility] [place] [facility] [address] [facility] [id number] [place] [address]- 7082 14 Feb, 2010 [facility] [address] [facility] [id number] [place] [address]- 9739 11 Feb, 2010 [facility] [address] [facility] [id number] [place] [address]- 6056 Feb, IMMUNIZATIONS No Known Immunizations SOCIAL HISTORY [...] History foot fracture Hospitalization History [facility]- Back Pain 03/24/2017
--- OUTSIDE RECORDS SUMMARY | 2018-04-10 17:52 | XMS REPORT ---
Author Author CONNER ROCHE Organization [facility] Address [address] [place] [address] Care Team Providers Care Filler Shredder Helper Name Role Phone CONNER ROCHE Unavailable PROBLEMS Type Condition ICD9-CM Code QTY69-JS Code Onset Dates Condition Status SNOMED Code Problem Color blindness H53.50 Active 343001318 Problem Presbyopia of both eyes H52.4 Active 35396789 Problem Nuclear senile cataract of both eyes H25.13 Active 100298374 Problem Astigmatism of both eyes, unspecified type H52.203 Active 85360624 Problem Essential hypertension I10 Active 75254152 Problem Other chronic pain G89.29 Active 92286713 Problem Hypermetropia of both eyes H52.03 Active 45208099 Problem Alzheimer's disease, unspecified G30.9 Active 829056428 Problem 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 Active 428610329 Problem 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 Active 024559175 Problem Gait instability R26.81 Active 50430984 Problem 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 Active 491737053 Problem Arthritis, 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 Active 628895179 Problem PVD (peripheral vascular disease) I73.9 Active 816444838 Problem 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 Active 557865505 Problem Hydrocele, unspecified hydrocele type N43.3 Active 01447474 Problem Other acute pulmonary embolism without acute cor pulmonale I26.99 Active 369046903 Problem At high risk for falls Z91.81 Active [id number] Problem Asymptomatic microscopic hematuria R31.21 Active 824524750 Problem Major depressive disorder, single episode, mild F32.0 Active 32653625 Problem Chronic fatigue R53.82 Active 41127419 Problem Benign non-nodular prostatic hyperplasia with lower urinary tract symptoms N40.1 Active 462321439 Problem Transient cerebral ischemia, unspecified transient cerebral ischemia type G45.9 Active 204316384 Problem Renal cyst, left Q61.00 Active 67498679 Problem 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 Active 75764129 Problem Anxiety F41.9 Active 02188455 Problem Overactive bladder N32.81 Active 163687509 Problem Primary insomnia F51.01 Active 184954805 Problem Mixed hyperlipidemia E78.2 Active 658586769 ALLERGIES Substance Reaction Event Type Date Status Vicodin Unknown Drug Allergy Feb, Active Lovastatin had a reaction to a statin but is unsure of which statin it was Drug Allergy Feb, Active Codeine Sulfate Unknown Drug Allergy Feb, Active ENCOUNTERS Encounter Location Date Diagnosis [place] [address] [address] Feb, [place] [address] [address] Feb, Encounter for immunization Z23 [place] [address] [address]- [address] Jan, Flank pain R10.9 [place] [address] [address]- 2712 Jan, [place] [address] [address]- 9301 Dec, [place] [address] [address]- [address] Dec, [place] [address] [address]67- 7450 Dec, 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 and 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 [place] [address] 9[address]- 4135 Dec, Left flank pain R10.9 and Arthritis, 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 [facility] [address] [address]- 4[address] Dec, [facility] [address] [address]- 2599 Nov, Essential hypertension I10 and Mixed hyperlipidemia E78.2 [place] [address] [place] [id number] [place] [address] 67626- 1621 Oct, Edema leg R60.0 [place] [address] [place] [id number] [place] [address] 51101- 9439 September, [place] [address] [place] [id number] [place] [address] 36440- 4053 September, 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 and 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 [place] [address] [place] [id number] [place] [address] 49036- 7413 September, PVD (peripheral vascular disease) I73.9 ; Major depressive disorder, single episode, mild F32.0 ; Chronic fatigue R53.82 ; Weight gain R63.5 and Arthralgia, unspecified joint M25.50 [place] [address] [place] [id number] [place] [address] 22398- 8075 Aug, Acute low back pain, unspecified back pain laterality, with sciatica presence unspecified M54.5 [place] [address] [place] [id number] [place] [address] 46069- 4332 Aug, Acute low back pain, unspecified back pain laterality, with sciatica presence unspecified M54.5 [place] [address] [place] [id number] [place] [address] 69756- 1439 Aug, Pain R52 [place] [address] [place] [id number] [place] [address] 23928- 2656 Jul, [place] [address] [place] [id number] [place] [address] 38714- 1536 Jun, [place] [address] [place] [id number] [place] [address] 32777- 8481 Jun, Medicare annual wellness visit, initial Z00.00 ; Mixed hyperlipidemia E78.2 ; Essential hypertension I10 ; Anxiety F41.9 ; 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 ; 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 ; Overactive bladder N32.81 ; Primary insomnia F51.01 ; At high risk for falls Z91.81 and Encounter for immunization Z23 [place] [address] [place] [id number] [place] [address] 07602- 5568 May, [place] [address] 16608- 8383 May, Essential hypertension I10 and Transient cerebral ischemia, unspecified transient cerebral ischemia type G45.9 [facility] [address] [id number] May, Dental examination Z01.20 and Dental caries K02.[address] [address]- [address] May, [place] [address] 90462- 3789 May, [place] [address] [address]- 1989 May, 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 [address]75- 0756 Apr, [place] [id number] [place] [address] 68918- 3735 Apr, 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 and 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 [place] [address] 59522- 5644 Mar, 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 [place] [address] 50739- 0143 Mar, Mixed hyperlipidemia E78.2 ; Essential hypertension I10 ; Asymptomatic microscopic hematuria R31.21 and Renal cyst, left Q61.[address] 8[address]37- 5101 Mar, [place] [address] [address] Feb, Encounter for immunization Z23 [facility] [address] [place] [id number] [place] [address] 70465- 6640 Feb, [facility] [address] [place] [id number] [place] [address] 55243- 7442 Feb, [facility] [address] [place] [id number] [place] [address] 37530 -8728 Feb, ANUG (acute necrotizing ulcerative gingivitis) A69.1 [facility] [address] [place] [id number] [place] [address] 63585- 5546 Feb, [facility] [address] [place] [id number] [place] [address] 27607- 7860 Feb, 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 [facility] [address] [place] [id number] [place] [address] 71187- 2737 Feb, 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 and 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 [facility] [id number] [place] [address] 52664- 4126 Jan, 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 [facility] [id number] [place] [address] 76556- 1754 Jan, Gait instability R26.[address] [facility] [address] [id number] [address] Jan [facility] [address] [id number] [address] Dec [facility] [address] [place] [id number] [place] [address] 02296- 1688 Dec, [facility] [address] [address]- 0298 Dec, [facility] [address] [place] [id number] [place] [address] 51284- 3789 Dec, Essential hypertension I10 ; Transient cerebral ischemia, unspecified transient cerebral ischemia type G45.9 and Anxiety F41.9 [facility] [address] 92653- 8749 Dec, Gait instability R26.81 [facility] [address] [place] [id number] [place] [address] 40513- 8244 Dec, [facility] [address] 46583- 6572 Nov, 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 and 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 [facility] [address] 65957- 8326 Nov, [facility] [address] [place] [id number] [place] [address] 90646- 4439 Nov, Gait instability R26.81 [facility] [address] 77403- 3453 Nov, Anxiety F41.9 [facility] [address] [place] [id number] [place] [address] 11274- 0118 Nov, [facility] [address] [place] [id number] [place] [address] 06948- 5083 Nov, [facility] [address] [place] [id number] [place] [address] 92892- 0731 Oct, Gait instability R26.81 [facility] [address] [place] [id number] [place] [address] 98491- 1176 Oct, Anxiety F41.9 [facility] [address] [facility] [id number] [place] [address] 61767- 6373 Oct, Gait instability R26.81 [facility] [address] [place] [id number] [place] [address] 90097- 6177 Oct, Gait instability R26.81 [facility] [address] [place] [id number] [place] [address] 80080- 2073 Oct, [facility] [address] [address]- 2921 Oct, Anxiety F41.9 ; Chronic 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 use Z79.899 ; Encounter for immunization Z23 and Transient cerebral ischemia, unspecified transient cerebral ischemia type G45.9 [facility] [address] [place] [id number] [address]- 8998 September, [facility] [address] [place] [id number] [place] [address] 83223- 3945 September, Gait instability R26.81 [facility] [address] [place] [id number] [place] [address] 77248- 8084 September, [facility] [address] [place] [id number] [address]- 0270 September, [facility] [address] [place] [id number] [place] [address] 17640- 8576 September, [facility] [address] [place] [id number] [address]- 9631 September, 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 and 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 [facility] [address], [place] [address]- 7059 September, [facility] [address] [address]- 5599 September, [facility] [address], [place] [address]- 9119 September, [facility] [address], [place] [address]- 5599 September, 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 [facility] [address], [place] [address]- 3101 Aug, 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 ; 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 ; Other acute pulmonary embolism without acute cor pulmonale I26.99 and Cough R05 [facility] [address] [place] [id number] [place] [address] 67614- 8673 Aug, [facility] [address] 04616- 6753 Aug, Gait instability R26.81 [facility] [address] [place] [id number] [place] [address] 67308- 8120 Aug, 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 and 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 [facility] [address] [place] [id number] [place] [address] 47537- 3810 Aug, [place] [address] [place] [id number] [place] [address] 10259- 0570 Aug, 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 [place] [address] [place] [id number] [place] [address] 81838- 3970 Jul, 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 [facility] [address] [place] [id number] [place] [address] 75400- 0710 Jul, [facility] [address] [place] [id number] [place] [address] 32300- 0922 Jul, 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 [facility] [address] [place] [id number] [place] [address] 22871- 7651 Jul, Anxiety F41.9 ; 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 and Transient cerebral ischemia, unspecified transient cerebral ischemia type G45.9 [facility] [address] [place] [id number] [place] [address] 44015- 3640 Jun, Essential hypertension I10 [facility] [address] [place] [id number] [place] [address] 36749- 7194 Jun, [facility] [address] [place] [id number] [place] [address] 06338- 5633 Jun, [place] [address] [place] [id number] [place] [address] 83416- 6526 Jun, [facility] [address] [place] [id number] [place] [address] 67032- 8520 Jun, Essential hypertension I10 ; Benign non-nodular prostatic hyperplasia with lower urinary tract symptoms N40.1 ; Anxiety F41.9 ; Pain in right knee M25.561 ; Pain in left knee M25.562 and Other chronic pain G89.29 [facility] [address] [place] [id number] [place] [address] 71249- 0297 May, [facility] [address] 02456- 4516 May, [facility] [address] [place] [id number] [place] [address] 92700- 3461 May, [place] [address] 99146- 4705 Apr, [facility] [address] [place] [id number] [place] [address] 75314- 1431 Mar, [place] [address] [place] [id number] [place] [address] 87819- 8562 Mar, Mixed hyperlipidemia E78.2 and Essential hypertension I10 [place] [address] [place] [id number] [place] [address] 03256- 3942 Feb, [facility] [address] [place] [id number] [place] [address] 45892- 1462 Feb, Ingrown nail L60.0 and Onychomycosis B35.1 [place] [address] [place] [id number] [place] [address] 10865- 1911 Feb, Paronychia, left L03.012 [facility] [address] [place] [id number] [place] [address] 97568- 9965 Jan, [facility] [address] [place] [id number] [place] [address] 34467- 0196 Jan, Cramps of right lower extremity R25.2 and Mixed hyperlipidemia E78.2 [facility] [address] [place] [id number] [place] [address] 04537- 7519 Jan, Cramps of right lower extremity R25.2 ; Essential hypertension I10 ; Mixed hyperlipidemia E78.2 ; Chronic 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 use Z79.899 and Claudication I73.9 [facility] [address] [place] [id number] [place] [address] 50206- 9011 Jan, Right leg pain M79.604 [facility] [address] [place] [id number] [place] [address] 23812- 6909 Dec, [facility] [address] [place] [id number] [place] [address] 64126- 8674 Nov, [facility] [address] [place] [id number] [place] [address] 96929- 0033 Nov, [facility] [address] [place] [id number] [place] [address] 12499- 1110 Nov, [facility] [address] [place] [id number] [place] [address] 00639- 3601 Nov, Dermatofibroma D23.9 [facility] [address] [place] [id number] [place] [address] 50173- 8817 Nov, [facility] [address] [place] [id number] [place] [address] 54709- 7961 Oct, [facility] [address] [place] [id number] [place] [address] 31273- 0654 Oct, [facility] [address] [place] [id number] [place] [address] 60362- 4783 September, Benign non-nodular prostatic hyperplasia with lower urinary tract symptoms N40.1 ; Essential hypertension I10 ; Overactive bladder N32.81 and Fatigue, unspecified type R53.83 [facility] [address] [place] [id number] [place] [address] 13063- 3245 September, [facility] [address], [place] [address]- 9430 September, [facility] [address] [place] [id number] [place] [address] 34428- 8151 Aug, [facility] [address] [place] [id number] [place] [address] 361784- 2041 Jul, [facility] [address] [place] [id number] [place] [address] 77421- 3220 Jul, Pelvic pain R10.2 ; Jock itch B35.6 ; Essential hypertension I10 and Hydrocele, unspecified hydrocele type N43.3 [facility] [address] [place] [id number] [place] [address] 07132- 4045 Jun, [facility] [address] [place] [id number] [place] [address] 02217- 2140 Jun, [facility] [address] [place] [id number] [place] [address] 19964- 1551 Jun, Benign non-nodular prostatic hyperplasia with lower urinary tract symptoms N40.1 [facility] [address] [place] [id number] [place] [address] 71226- 2826 Jun, Benign non-nodular prostatic hyperplasia with lower urinary tract symptoms N40.1 [facility] [address], [place] [address]- 3279 Jun, [facility] [id number] [place] [address] 48523- 7608 May, [facility] [id number] [place] [address] 55126- 8532 Apr, [facility] [address] [place] [id number] [place] [address] 97714- 8936 Apr, [facility] [address] [address] Apr, Other acute pulmonary embolism without acute cor pulmonale I26.99 ; Anxiety F41.9 ; 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 and penitentiary 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 use Z79.899 [facility] [address] [place] [id number] [place] [address] 87951- 0053 Apr, [facility] [address] [place] [id number] [place] [address] 17909- 3841 Apr, [facility] [address] 77675- 7010 Mar, [facility] [address] 61256- 4264 Mar, [facility] [address] 52747- 7634 Feb, Cough R05 [facility] [address] [place] [id number] [place] [address] 44992- 2455 Feb, [facility] [address] 08940- 9807 Feb, Encounter for immunization Z23 [facility] [address] [place] [id number] [place] [address] 17044- 7181 Feb, Other and unspecified hyperlipidemia 272.4 [facility] [address] [place] [id number] [place] [address] 24748- 1538 Jan, [facility] [address] [place] [id number] [place] [address] 28383- 0368 Jan, TIA (transient ischemic attack) 435.9 [facility] [address] [place] [id number] [place] [address] 77485- 8761 Dec, [facility] [address] [place] [id number] [place] [address] 44322- 4177 Dec, [facility] [address] [place] [id number] [place] [address] 18813- 6785 Dec, [facility] [address] [place] [id number] [place] [address] 56373- 2618 Nov, [facility] [address], [place] [address]- 6357 Oct, Chronic cough 786.2 [facility] [address], [place] [address]- 6013 Oct, [facility] [address], [place] [address]- 2017 Oct, [facility] [address], [place] [address]- 4384 Oct, [facility] [address], [place] [address]- 8837 Oct, [facility] [address], [place] [address]- 2864 Oct, Chronic cough 786.2 [facility] [address] [address]- 4726 Oct, Cough 786.2 ; Hypertension 401.9 ; BPH (benign prostatic hyperplasia) 600.00 ; Other and unspecified hyperlipidemia 272.4 and Hydrocele 603.9 [facility] [address], [place] [address]- 4243 Oct, [facility] [address], [place] [address]- 0035 September, [facility] [id number] [address] Aug, [facility] [id number] [place] [address] Aug, [facility] [id number] [place] [address] Jul, [facility] [id number] [place] [address] Jul, [facility] [id number] [address] Jul, [facility] [id number] [place] [address] Jul, [facility] [place] [facility] [address] [id number] [place] [address] Jul, [facility] [place] [facility] [address] [id number] [place] [address] Jun, 2014 [facility] [place] [facility] [address] [id number] [place] [address] Jun, 2014 [facility] [place] [facility] [address] [id number] [place] [address] Jun, [facility] [place] [facility] [address] [id number] [place] [address] Jun, 2014 [facility] [place] [facility] [address] [id number] [place] [address] Jun, 2014 [facility] [place] [facility] [address] [id number] [place] [address] Jun, 2014 [facility] [place] [facility] [address] [id number] [place] [address] Jun, [facility] [place] [facility] [address] [facility] 2001 [id number] [place] [address] Jun, [facility] [place] [facility] [address] [id number] [place] [address] May, [facility] [place] [facility] [address] [id number] [place] [address] May, [facility] [place] [facility] [address] [id number] [place] [address] 8469 May, [facility] [place] [facility] [address] [id number] [place] [address] 92[address] May, [facility] [place] [facility] [address] [id number] [place] [address]- 2415 May, [facility] [place] [facility] [address] [id number] [place] [address]- 4168 May, [facility] [place] [facility] [address] [id number] [place] [address]- 1343 May, [facility] [place] [facility] [address] [id number] [place] [address] 8384 May, [facility] [place] [facility] [address] [facility] [id number] [place] [address]- 9155 May, [facility] [place] [facility] [address] [id number] [place] [address] May, [facility] [place] [facility] [address] [id number] [place] [address]- 2657 Apr, [facility] [place] [facility] [address] [id number] [place] [address]- 8268 Apr, [facility] [place] [facility] [address] [id number] [place] [address]- 4484 Apr, [facility] [place] [facility] [address] [id number] [place] [address] 1929 Apr, [facility] [place] [facility] [address] [id number] [place] [address]- 9707 Apr, [facility] [place] [facility] [address] [id number] [place] [address]- 5140 Apr, [facility] [place] [facility] [address] [id number] [place] [address]- 4058 Apr, [facility] [place] [facility] [address] [id number], [place] [address]- 0367 Apr, [facility] [place] [facility] [address] [id number] [place] [address]- 2354 Mar, [facility] [place] [facility] [address] [id number] [place] [address]- 3557 Mar, [facility] [place] [facility] [address] [id number] [place] [address] Mar, [facility] [place] [facility] [address] [id number] [place] [address]- 7047 Mar, [facility] [place] [facility] [address] [id number] [place] [address]- 9761 Mar, [facility] [place] [facility] [address] [id number] [place] [address]- 9327 Mar, [facility] [place] [facility] [address] [id number] [place] [address]- 6645 Mar, [facility] [place] [facility] [address] [id number] [place] [address]- 4540 Mar, [facility] [place] [facility] [address] [id number] [place] [address]- 8911 Mar, [facility] [place] [facility] [address] [id number] [place] [address]- 8230 Mar, [facility] [place] [facility] [address] [id number] [place] [address]- 6610 Feb, [facility] [place] [facility] [address] [id number] [place] [address]- 3892 Feb, [facility] [place] [facility] [address] [id number] [place] [address]- 5911 Feb, [facility] [place] [facility] [address] [id number] [place] [address]- 7404 Feb, [facility] [place] [facility] [address] [id number] [place] [address]- 3561 Feb, [facility] [place] [facility] [address] [id number] [place] [address]- 8645 Feb, [facility] [place] [facility] [address] [id number] [place] [address]- 5849 30 Jan, 2014 [facility] [place] [facility] [address] [id number] [place] [address]- 7405 30 Jan, 2014 [facility] [place] [facility] [address] [id number] [place] [address]- 6783 24 Jan, 2014 [facility] [place] [facility] [address] [id number] [place] [address]- 5757 24 Jan, 2013 [facility] [place] [facility] [address] [id number] [place] [address]- 4881 19 Jan, 2013 [facility] [place] [facility] [address] [id number] [place] [address]- 8893 19 Jan, 2013 [facility] [place] [facility] [address] [id number] [place] [address] 2548 16 Jan, 2013 [facility] [place] [facility] [address] [id number] [place] [address]- 6715 16 Jan, 2013 [facility] [place] [facility] [address] [id number] [place] [address]- 9773 16 Jan, 2013 [facility] [place] [facility] [address] [id number] [place] [address]- 8439 16 Jan, 2013 [facility] [place] [facility] [address] [id number] [place] [address]- 3142 12 Jan, 2013 [facility] [place] [facility] [address] [id number] [place] [address]- 3375 Jan, [facility] [place] [facility] [address] [id number] [place] [address]- 9834 Dec, [facility] [place] [facility] [address] [id number] [place] [address]- 6266 Dec, [facility] [place] [facility] [address] [id number] [place] [address]- 1565 Dec, [facility] [place] [facility] [address] [id number] [place] [address]- 8084 Dec, [facility] [place] [facility] [address] [id number] [place] [address]- 3932 Dec, [facility] [place] [facility] [address] [id number] [place] [address]- 7980 Dec, [facility] [place] [facility] [address] [id number] [place] [address]- 0210 Nov, [facility] [place] [facility] [address] [id number] [place] [address]- 5417 Nov, [facility] [place] [facility] [address] [id number] [place] [address]- 6372 Nov, [facility] [place] [facility] [address] [id number] [place] [address]- 7791 Nov, [facility] [place] [facility] [address] [id number] [place] [address]- 8046 Nov, [facility] [place] [facility] [address] [id number] [place] [address]- 6918 Nov, [facility] [place] [facility] [address] [id number] [place] [address]- 8210 Nov, [facility] [place] [facility] [address] [id number] [place] [address]- 1781 Nov, [facility] [place] [facility] [address] [id number] [place] [address]- 2433 Oct, [facility] [place] [facility] [address] [id number] [place] [address]- 2740 Oct, [facility] [place] [facility] [address] [id number] [place] [address]- 2028 Oct, [facility] [place] [facility] [address] [id number] [place] [address]- 8997 Oct, [facility] [place] [facility] [address] [id number] [place] [address]- 8669 September, [facility] [place] [facility] [address] [id number] [place] [address]- 9228 September, [facility] [place] [facility] [address] [id number] [place] [address]- 8469 September, [facility] [place] [facility] [address] [id number] [place] [address]- 9537 September, [facility] [place] [facility] [address] [id number] [place] [address]- 1682 September, [facility] [place] [facility] [address] [id number] [place] [address]- 7151 September, [facility] [place] [facility] [address] [id number] [place] [address]- 3031 Aug, [facility] [place] [facility] [address] [id number] [place] [address]- 2203 Aug, [facility] [place] [facility] [address] [id number] [place] [address]- 8788 Aug, [facility] [place] [facility] [address] [id number] [place] [address]- 6889 Aug, [facility] [place] [facility] [address] [id number] [place] [address]- 7693 Aug, [facility] [place] [facility] [address] [id number] [place] [address]- 0265 Aug, [facility] [place] [facility] [address] [id number] [place] [address]- 3727 Aug, [facility] [place] [facility] [address] [id number] [place] [address]- 8955 Aug, [facility] [place] [facility] [address] [id number] [place] [address]- 2772 Jul, [facility] [place] [facility] [address] [id number] [place] [address]- 5990 Jul, [facility] [place] [facility] [address] [id number] [place] [address]- 2385 Jun, [facility] [place] [facility] [address] [id number] [place] [address]- 1012 Jun, [facility] [place] [facility] [address] [id number] [place] [address]- 9666 Jun, [facility] [place] [facility] [address] [id number] [place] [address]- 0093 Jun, [facility] [place] [facility] [address] [id number] [place] [address]- 6963 Jun, [facility] [place] [facility] [address] [id number] [place] [address]- 5978 May, [facility] [place] [facility] [address] [id number] [place] [address]- 7596 May, [facility] [place] [facility] [address] [id number], [place] [address]- 2927 May, [facility] [place] [facility] [address] [id number] [place] [address]- 2969 May, [facility] [place] [facility] [address] [id number], [place] [address]- 3785 Apr, [facility] [place] [facility] [address] [id number], [place] [address]- 2431 Apr, [facility] [place] [facility] [address] [id number], [place] [address]- 4044 Mar, [facility] [place] [facility] [address] [id number], [place] [address]- 3007 Mar, [facility] [place] [facility] [address] [id number], [place] [address]- 8079 Feb, [facility] [place] [facility] [address] [id number], [place] [address]- 4958 Feb, [facility] [place] [facility] [address] [id number], [place] [address]- 6151 Feb, [facility] [place] [facility] [address] [id number], [place] [address]- 3165 Feb, [facility] [place] [facility] [address] [facility] [id number], [place] [address]- 5320 Feb, [facility] [place] [facility] [address] [id number], [place] [address]- 1158 Feb, [facility] [place] [facility] [address] [id number] [place] [address]- 3911 08 Feb, 2013 [facility] [address] [id number] [place] [address]- 8237 Jan, [facility] [address] [id number] [place] [address]- 7901 Jan, [facility] [address] [id number] [place] [address]- 4360 Dec, [facility] [address] [id number] [place] [address]- 7292 Dec, [facility] [address] [id number] [place] [address]- 5466 Dec, [facility] [address] [id number] [place] [address]- 0427 Dec, [facility] [address] [id number] [place] [address]- 5127 Dec, [facility] [address] [id number] [place] [address]- 3917 Nov, [facility] [address] [id number] [place] [address]- 9623 Nov, [facility] [address] [id number] [place] [address]- 4392 Nov, [facility] [address] [id number] [place] [address]- 1588 Oct, [facility] [address] [id number] [place] [address]- 9933 Oct, [facility] [place] [facility] [address] [id number] [place] [address]- 1529 Oct, [facility] [place] [facility] [address] [id number] [place] [address]- 1417 September, [facility] [place] [facility] [address] [id number] [place] [address]- 9546 Aug, [facility] [address] [id number] [place] [address]- 3686 Aug, [facility] [place] [facility] [address] [id number] [place] [address]- 7356 Aug, [facility] [place] [facility] [address] [id number] [place] [address]- 8646 Jul, [facility] [place] [facility] [address] [id number] [place] [address]- 0996 Jul, [facility] [address] [id number] [place] [address]- 7046 Jul, [facility] [place] [facility] [address] [id number] [place] [address]- 3236 Jul, [facility] [address] [id number] [place] [address]- 2546 Jul, [facility] [address] [id number] [place] [address]- 9936 Jun, [facility] [place] [facility] [address] [id number] [place] [address]- 2796 Jun, [facility] [address] [id number] [place] [address]- 5126 May, [facility] [address] [id number] [place] [address]- 7876 May, [facility] [place] [facility] [address] [id number] [place] [address]- 2216 Apr, [facility] [place] [facility] [address] [id number] [place] [address]- 2506 Apr, [facility] [place] [facility] [address] [id number] [place] [address]- 3816 Mar, [facility] [place] [facility] [address] [id number] [place] [address]- 3036 Mar, [facility] [place] [facility] [address] [id number] [place] [address] 2546 Mar, [facility] [address] [id number] [place] [address]- 2546 Mar, [facility] [address] [id number] [id number] Feb, [facility] [address] [id number] [place] [address]- 8266 Feb, [facility] [place] [facility] [address] [id number] [place] [address]- 4901 Feb, [facility] [place] [facility] [address] [id number] [place] [address]- 1660 Feb, [facility] [place] [facility] [address] [id number] [place] [address]- 4564 Feb, [facility] [address] [id number] [place] [address]- 0599 Feb, [facility] [place] [facility] [address] [id number] [place] [address]- 0134 Feb, [facility] [place] [facility] [address] [id number] [place] [address]- 6846 Jan, [facility] [place] [facility] [address] [id number] [place] [address]- 4704 Jan, [facility] [place] [facility] [address] [id number], [place] [address]- 8536 Dec, [facility] [place] [facility] [address] [id number], [place] [address] 2546 Dec, [facility] [place] [facility] [address] [id number] [place] [address]- 9709 Nov, [facility] [place] [facility] [address] [id number] [place] [address]- 2836 Oct, [facility] [place] [facility] [address] [id number] [place] [address]- 2546 September, [facility] [place] [facility] [address] [id number] [place] [address]- 2546 September, [facility] [address] [id number] [place] [address]- 0306 September, [facility] [address] [id number] [place] [address]- 2546 Aug, [facility] [address] [id number] [place] [address]- 4226 May, [facility] [address] [id number] [place] [address]- 9546 May, [facility] [address] [id number] [place] [address]- 8670 Apr, [facility] [address] [id number] [place] [address]- 5426 Apr, [facility] [address] [id number] [place] [address]- 2704 Apr, [facility] [address] [id number] [place] [address]- 0814 Apr, [facility] [address] [id number] [place] [address]- 6960 Apr, [facility] [address] [id number] [place] [address]- 3446 Mar, [facility] [address] [id number] [place] [address]- 0316 Feb, [facility] [address] [id number] [place] [address]- 1518 Feb, [facility] [address] [id number] [place] [address]- 3596 September, [facility] [address] [id number] [place] [address]- 2546 Mar, [facility] [address] [id number] [place] [address]- 0847 Feb, [facility] [address] [facility] [address] [id number] [place] [address]- 1390 Feb, [facility] [address] [facility] [address] [id number] [id number] [address]01 Feb, IMMUNIZATIONS Vaccine Route Administration Date Status FLULAVAL QUAD 0.5ML (6 MO & UP) 2018 IM Intramuscular Feb 19, 2018 Administered SOCIAL HISTORY Never Assessed REASON FOR VISIT Flu shot--ABoggsLPN PLAN OF CARE VITAL SIGNS MEDICATIONS Unknown Medications RESULTS No Results PROCEDURES Procedure Date Ordered Result Body Site FLULAVAL QUAD 0.5ML (6 MO & UP) 2018 Feb 19, 2018 ADMN FLU VAC NO FEE SCHED SAME DAY Feb 19, 2018 SINGLE IMMUNIZATION ADMIN Feb 19, 2018 INSTRUCTIONS MEDICATIONS ADMINISTERED No Known Medications [...] History foot fracture Hospitalization History [facility]- Back Pain 03/24/2017
--- OUTSIDE RECORDS SUMMARY | 2018-04-10 17:53 | XMS REPORT ---
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 Name Role Phone CONNER ROCHE Unavailable PROBLEMS Type Condition ICD9-CM Code JWO11-OZ Code Onset Dates Condition Status SNOMED Code Problem Color blindness H53.50 Active 893132456 Problem Presbyopia of both eyes H52.4 Active 52866571 Problem Nuclear senile cataract of both eyes H25.13 Active 183704840 Problem Astigmatism of both eyes, unspecified type H52.203 Active 18211072 Problem Essential hypertension I10 Active 06567588 Problem Other chronic pain G89.29 Active 86134411 Problem Hypermetropia of both eyes H52.03 Active 42625933 Problem Alzheimer's disease, unspecified G30.9 Active 652772772 Problem 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 Active 605133846 Problem 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 Active 014282466 Problem Gait instability R26.81 Active 65900030 Problem 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 Active 820400674 Problem Arthritis, 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 Active 005644111 Problem PVD (peripheral vascular disease) I73.9 Active 665175174 Problem 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 Active 830138197 Problem Hydrocele, unspecified hydrocele type N43.3 Active 89830583 Problem Other acute pulmonary embolism without acute cor pulmonale I26.99 Active 120776540 Problem At high risk for falls Z91.81 Active [id number] Problem Asymptomatic microscopic hematuria R31.21 Active 052314073 Problem Major depressive disorder, single episode, mild F32.0 Active 06880692 Problem Chronic fatigue R53.82 Active 13489706 Problem Benign non-nodular prostatic hyperplasia with lower urinary tract symptoms N40.1 Active 545664872 Problem Transient cerebral ischemia, unspecified transient cerebral ischemia type G45.9 Active 460634826 Problem Renal cyst, left Q61.00 Active 71119339 Problem 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 Active 79421147 Problem Anxiety F41.9 Active 09495204 Problem Overactive bladder N32.81 Active 386418448 Problem Primary insomnia F51.01 Active 925077078 Problem Mixed hyperlipidemia E78.2 Active 926793137 ALLERGIES No Information ENCOUNTERS Encounter Location Date Diagnosis [place] [id number] [place] [address] 58919- 2978 07 Jan, 2018 Flank pain R10.9 [facility] [address] 27290- 8481 Jan, [place] [address] 48662- 6487 Dec, [place] [id number] [place] [address] 71468- 9865 Dec, [place] [address] 04156- 6055 Dec, 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 and 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 [place] [address] 56719- 6490 Dec, Left flank pain R10.9 and Arthritis, 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 [place] [id number] [place] [address] 50387- 6533 Dec, [facility] [address] 42177- 9209 Nov, Essential hypertension I10 and Mixed hyperlipidemia E78.2 [place] [id number] [place] [address] 19972- 7543 Oct, Edema leg R60.0 [facility] [id number] [place] [address] 16966- 0967 September, [facility] [id number] [place] [address] 25808- 3826 September, 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 and 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 [place] [id number] [place] [address] 86017- 1243 September, PVD (peripheral vascular disease) I73.9 ; Major depressive disorder, single episode, mild F32.0 ; Chronic fatigue R53.82 ; Weight gain R63.5 and Arthralgia, unspecified joint M25.50 [place] [address] 61574- 1021 Aug, Acute low back pain, unspecified back pain laterality, with sciatica presence unspecified M54.5 [place] [address] 42511- 1101 Aug, Acute low back pain, unspecified back pain laterality, with sciatica presence unspecified M54.5 [place] [address] 12156- 9234 Aug, Pain R52 [place] [address] 60748- 1086 Jul, [place] [address] 00220- 9304 Jun, [place] [id number] [place] [address] 96679- 0253 07 Jun, 2017 Medicare annual wellness visit, initial Z00.00 ; Mixed hyperlipidemia E78.2 ; Essential hypertension I10 ; Anxiety F41.9 ; 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 ; 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 ; Overactive bladder N32.81 ; Primary insomnia F51.01 ; At high risk for falls Z91.81 and Encounter for immunization Z23 [place] [id number] [place] [address] 41370- 3159 May, [place] [address] 99325- 5580 May, Essential hypertension I10 and Transient cerebral ischemia, unspecified transient cerebral ischemia type G45.9 [facility] [id number] [place] [address] [id number] May, Dental examination Z01.20 and Dental caries K02.9 [facility] [id number] [place] [address] 83886- 1535 May, [facility] [address] 84291- 1298 May, [facility] [address] 42755- 3416 May, 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 [place] [address] 09204- 4227 Apr, [place] [address] 21882- 5585 Apr, 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 and 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 [place] [address] 42035- 4430 Mar, 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 [place] [address] 35781- 1030 Mar, Mixed hyperlipidemia E78.2 ; Essential hypertension I10 ; Asymptomatic microscopic hematuria R31.21 and Renal cyst, left Q61.00 [place] [id number] [place] [address] 95698- 9237 Mar, [facility] [id number] [place] [address] 53348- 2040 Feb, Encounter for immunization Z23 [place] [address] 50535- 4870 Feb, [place] [address] 38455- 2930 Feb, [facility] [address] 97534 -0202 Feb, ANUG (acute necrotizing ulcerative gingivitis) A69.1 [facility] [id number] [place] [address] 15895- 2422 Feb, [facility] [id number] [place] [address] 04813- 5842 Feb, 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 [facility] [id number] [place] [address] 48415- 3231 Feb, 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 and 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 [facility] [id number] [place] [address] 56782- 7878 Jan, 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 [facility] [id number] [place] [address] 72938- 1421 Jan, Gait instability R26.81 [facility] [address] [id number] [place] [address] Jan [facility] [address] [id number] [place] [address] Dec [facility] [id number] [place] [address] 65811- 4321 Dec, [facility] [id number] [place] [address] 77154- 0609 Dec, [facility] [id number] [place] [address] 55149- 9741 Dec, Essential hypertension I10 ; Transient cerebral ischemia, unspecified transient cerebral ischemia type G45.9 and Anxiety F41.9 [facility] [id number] [place] [address] 51707- 8629 Dec, Gait instability R26.81 [facility] [id number] [place] [address] 45845- 4148 Dec, [facility] [id number] [place] [address] 09585- 6240 Nov, 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 and 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 [facility] [id number] [place] [address] 14507- 8917 Nov, [facility] [id number] [place] [address] 96820- 8112 Nov, Gait instability R26.81 [facility] [id number] [place] [address] 99264- 8135 Nov, Anxiety F41.9 [facility] [id number] [place] [address] 34179- 1607 Nov, [facility] [id number] [place] [address] 62883- 3827 Nov, [facility] [id number] [place] [address] 98415- 4708 Oct, Gait instability R26.81 [facility] [id number] [place] [address] 39525- 5682 Oct, Anxiety F41.9 [facility] [id number] [place] [address] 13028- 8146 Oct, Gait instability R26.81 [facility] [address] [address]- 5289 Oct, Gait instability R26.81 [facility] [id number] [place] [address] 13300- 8371 Oct, [facility] [id number] [place] [address] 08297- 4346 Oct, Anxiety F41.9 ; Chronic 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 use Z79.899 ; Encounter for immunization Z23 and Transient cerebral ischemia, unspecified transient cerebral ischemia type G45.9 [facility] [address] [address]- 7691 September, [facility] [id number] [address]- 9701 September, Gait instability R26.81 [facility] [address] [facility] [id number] [address]- 3885 September, [facility] [address] [facility] [id number], [place] [address]- 6287 September, [facility] [id number] [address]- 1333 September, [facility] [address] [facility] [id number], [place] [address]- 4937 September, 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 and 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 [facility] [id number] [address]- 9214 September, [facility] [address] [address]- 8465 September, [facility] [address] [facility] [id number], [place] [address]- 5930 September, [facility] [id number] [address]- 7874 September, 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 [facility] [address], [place] [address]- 0794 Aug, 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 ; 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 ; Other acute pulmonary embolism without acute cor pulmonale I26.99 and Cough R05 [facility] [address] [facility] [id number], [place] [address]- 3079 Aug, [facility] [id number] [address]- 9586 Aug, Gait instability R26.81 [facility] [id number] [address]- 4820 Aug, 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 and 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 [place] [id number] [place] [address] 20927- 0293 Aug, [place] [id number] [place] [id number]89 Aug, 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 [place] [place] [id number] [place] [address] 21383- 3174 Jul, 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 [place] [id number] [place] [address] 60614- 4286 Jul, [place] [address] 58000- 6461 Jul, 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 [place] [id number] [place] [address] 05815- 2100 Jul, Anxiety F41.9 ; 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 and Transient cerebral ischemia, unspecified transient cerebral ischemia type G45.9 [place] [id number] [place] [address] 23336- 5869 Jun, Essential hypertension I10 [place] [id number] [place] [address] 56758- 9757 Jun, [place] [id number] [place] [address] 39028- 2651 Jun, [place] [id number] [place] [address] 49870- 4318 Jun, [place] [id number] [place] [address] 22872- 4592 Jun, Essential hypertension I10 ; Benign non-nodular prostatic hyperplasia with lower urinary tract symptoms N40.1 ; Anxiety F41.9 ; Pain in right knee M25.561 ; Pain in left knee M25.562 and Other chronic pain G89.29 [place] [id number] [place] [address] 36068- 1884 May, [facility] [id number] [place] [address] 98910- 5477 May, [facility] [id number] [place] [address] 01024- 4290 May, [facility] [id number] [place] [address] 88780- 9552 Apr, [facility] [id number] [place] [address] 89903- 3392 Mar, [facility] [address] 37460- 1296 Mar, Mixed hyperlipidemia E78.2 and Essential hypertension I10 [place] [id number] [place] [address] 10835- 5329 Feb, [facility] [id number] [place] [address] 04862- 7171 Feb, Ingrown nail L60.0 and Onychomycosis B35.1 [place] [id number] [place] [address] 19781- 3752 Feb, Paronychia, left L03.012 [place] [id number] [place] [address] 21312- 1741 Jan, [facility] [id number] [place] [address] 43947- 2786 Jan, Cramps of right lower extremity R25.2 and Mixed hyperlipidemia E78.2 [place] [id number] [place] [address] 09995- 1752 Jan, Cramps of right lower extremity R25.2 ; Essential hypertension I10 ; Mixed hyperlipidemia E78.2 ; Chronic 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 use Z79.899 and Claudication I73.9 [place] [place] [id number] [place] [address] 20790- 8979 Jan, Right leg pain M79.604 [facility] [address], [place] [address]- 1513 Dec, [facility] [id number] [place] [address] 323673- 2355 Nov, [facility] [id number] [place] [address] 22688- 5707 Nov, [facility] [id number] [place] [address] 79526- 1820 Nov, [facility] [id number] [place] [address] 06613- 5134 Nov, Dermatofibroma D23.9 [facility] [id number] [place] [address] 64006- 2957 Nov, [facility] [id number] [place] [address] 67306- 1308 Oct, [facility] [id number] [place] [address] 88007- 3454 Oct, [facility] [id number] [place] [address] 28846- 6289 September, Benign non-nodular prostatic hyperplasia with lower urinary tract symptoms N40.1 ; Essential hypertension I10 ; Overactive bladder N32.81 and Fatigue, unspecified type R53.83 [facility] [address], [place] [address]- 7807 September, [facility] [id number] 7955 September, [facility] [id number] [place] [address] 673714- 6136 Aug, [facility] [address] 7052 Jul, [facility] [id number] [place] [address] 55117- 9657 Jul, Pelvic pain R10.2 ; Jock itch B35.6 ; Essential hypertension I10 and Hydrocele, unspecified hydrocele type N43.3 [facility] [id number] [place] [address] 86950- 8072 Jun, [facility] [id number] [place] [address] 93193- 5540 Jun, [facility] [address] 15781- 5407 Jun, Benign non-nodular prostatic hyperplasia with lower urinary tract symptoms N40.1 [facility] [address] 29197- 5676 Jun, Benign non-nodular prostatic hyperplasia with lower urinary tract symptoms N40.1 [facility] [id number] [place] [address] 62892- 3341 Jun, [facility] [address] 14609- 6814 May, [facility] [id number] [place] [address] 00145- 9839 Apr, [facility] [id number] [place] [address] 86846- 0679 Apr, [facility] [id number] [place] [address] 38518- 4161 Apr, Other acute pulmonary embolism without acute cor pulmonale I26.99 ; Anxiety F41.9 ; 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 and director long 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 care 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 use Z79.899 [facility] [id number] [place] [address] 49430- 8259 Apr, [facility] [id number] [place] [address] 49979- 6616 Apr, [facility] [id number] [place] [address] 77509- 2520 Mar, [facility] [id number] [place] [address] 16548- 3216 Mar, [facility] [id number] [place] [address] 00337- 7201 Feb, Cough R05 [facility] [id number] [place] [address] 96119- 9329 Feb, [facility] [address] 41327- 6872 Feb, Encounter for immunization Z23 [facility] [address] 11221- 8726 Feb, Other and unspecified hyperlipidemia 272.4 [facility] [id number] [place] [address] 32432- 7161 Jan, [facility] [address] 73657- 1870 Jan, TIA (transient ischemic attack) 435.9 [facility] [id number] [place] [address] 16132- 0023 Dec, [facility] [id number] [place] [address] 15846- 2381 Dec, [facility] [id number] [place] [address] 08674- 7213 Dec, [facility] [id number] [place] [address] 69653- 7381 Nov, [facility] [id number] [place] [address] 96501- 8591 Oct, Chronic cough 786.2 [facility] [id number] [place] [address] 52085- 0027 Oct, [facility] [id number] [place] [address] 61797- 7654 Oct, [facility] [address] 27338- 6553 Oct, [facility] [address], [place] [address]- 7661 Oct, [facility] [address], [place] [address]- 7694 Oct, Chronic cough 786.2 [facility] [address]- 0800 Oct, Cough 786.2 ; Hypertension 401.9 ; BPH (benign prostatic hyperplasia) 600.00 ; Other and unspecified hyperlipidemia 272.4 and Hydrocele 603.9 [facility] [id number] [place] [address] 18684- 6692 Oct, [facility] [address], [place] [address]- 7828 September, [facility] [address], [place] [address]- 2034 Aug, [facility] [address], [place] [address]- 9811 Aug, [facility] [address], [place] [address]- 7395 Jul, [facility] [address], [place] [address]- 3716 Jul, [facility] [address], [place] [address]- 9037 Jul, [facility] [address], [place] [address]- 9276 Jul, [facility] [address]- 4512 Jul, [facility] [address] [address] 1915 Jun, [facility] [address] [id number] 1393 Jun, [facility] [place] [facility] [address] [id number] [place] [address]- 7389 Jun, [facility] [place] [facility] [address] [id number] [place] [address]- 4110 Jun, [facility] [place] [facility] [address] [id number] [place] [address]- 1926 Jun, 2014 [facility] [place] [facility] [address] [id number] [place] [address]- 1872 Jun, [facility] [place] [facility] [address] [id number] [place] [address]- 6607 Jun, [facility] [place] [facility] [address] [id number] [place] [address]- 0468 Jun, [facility] [place] [facility] [address] [id number] [place] [address]- 9197 May, [facility] [place] [facility] [address] [id number] [place] [address]- 8747 May, [facility] [place] [facility] [address] [id number] [place] [address]- 9634 May, [facility] [place] [facility] [address] [id number] [place] [address]- 6355 May, [facility] [place] [facility] [address] [id number], [place] [address] May, [facility] [place] [facility] [address] [id number], [place] [address] May, [facility] [place] [facility] [address] [id number] [place] [address] May, [facility] [place] [facility] [address] [id number], [place] [address] May, [facility] [place] [facility] [address] [id number] [place] [address] May, [facility] [place] [facility] [address] [id number] [place] [address] May, [facility] [place] [facility] [address] [id number] [place] [address] Apr, [facility] [place] [facility] [address] [id number] [place] [address] Apr, [facility] [place] [facility] [address] [id number] [place] [id number] Apr, [facility] [place] [facility] [address] [id number] [place] [address] Apr, [facility] [place] [facility] [address] [id number] [place] [address] Apr, [facility] [place] [facility] [address] [id number] [place] [address] Apr, [facility] [place] [facility] [address] [id number] [place] [address] Apr, [facility] [place] [facility] [address] [id number] [place] [address] Apr, [facility] [facility] [address] [id number] [place] [address] Mar, [facility] [place] [facility] [address] [id number] [place] [address] Mar, [facility] [place] [facility] [address] [id number] [place] [address] Mar, [facility] [place] [facility] [address] [id number] [place] [address] 10[address] Mar, [facility] [place] [facility] [address] [id number] [place] [address] 5394 Mar, [facility] [place] [facility] [address] [id number] [place] [address] Mar, [facility] [place] [facility] [address] [id number] [place] [address] 8537 Mar, [facility] [place] [facility] [address] [id number] [place] [address]- 0000 Mar, [facility] [place] [facility] [address] [id number] [place] [address] 9532 Mar, [facility] [place] [facility] [address] [id number] [place] [address] 4[address] Mar, [facility] [place] [facility] [address] [id number] [place] [address]- 4177 Feb, [facility] [place] [facility] [address] [id number] [place] [address]- 7668 Feb, [facility] [place] [facility] [address] [id number] [place] [address] 53[address] Feb, [facility] [place] [facility] [address] [id number] [place] [address]- 1339 Feb, [facility] [place] [facility] [address] [id number] [place] [address]- 1219 Feb, [facility] [place] [facility] [address] [id number] [place] [address]- 4133 Feb, [facility] [place] [facility] [address] [id number] [place] [address]- [address]233 30 Jan, 2014 [facility] [place] [facility] [address] [id number] [place] [address]- 3144 30 Jan, 2014 [facility] [place] [facility] [address] [id number] [place] [address]- 1196 24 Jan, 2013 [facility] [place] [facility] [address] [id number] [place] [address]- 0707 24 Jan, 2014 [facility] [place] [facility] [address] [id number] [place] [address]- 8787 19 Jan, 2013 [facility] [place] [facility] [address] [id number] [place] [address]- 9668 19 Jan, 2014 [facility] [place] [facility] [address] [id number] [place] [address]- 2193 16 Jan, 2014 [facility] [place] [address] [id number] [place] [address]- 8766 16 Jan, 2014 [facility] [address] [id number] [place] [address]- 5796 Jan, [facility] [place] [address] [id number] [place] [address]- 8086 Jan, [facility] [place] [facility] [address] [id number] [place] [address]- 0836 Jan, [facility] [place] [address] [id number] [place] [address] Jan, [facility] [address] [id number] [place] [address]- 1316 Dec, [facility] [place] [facility] [address] [id number] [place] [address]- 8097 Dec, [facility] [address] [id number] [place] [address]- 8856 Dec, [facility] [address] [id number] [place] [address]- 2407 Dec, [facility] [address] [id number] [place] [address]- 7993 Dec, [facility] [address] [id number] [place] [address]- 0905 Dec, [facility] [address] [id number] [place] [address] 1904 Nov, [facility] [place] [address] [id number] [place] [address]- 3956 Nov, [facility] [address] [id number] [place] [address]- 7301 Nov, [facility] [address] [id number] [place] [address]- 2767 Nov, [facility] [address] [id number] [place] [address]- 1607 Nov, [facility] [address] [id number] [place] [address] 1933 Nov, [facility] [address] [id number] [place] [address]- 8522 Nov, [facility] [address] [id number] [place] [address]- 3584 Nov, [facility] [place] [address] [id number] [place] [address]- 5243 Oct, [facility] [address] [id number] [place] [address]- 1696 Oct, [facility] [address] [id number] [place] [address]- 4739 Oct, [facility] [address] [id number] [place] [address]- 0195 Oct, [facility] [address] [id number] [place] [address]- 6407 September, [facility] [address] [id number] [place] [address] 6148 September, [facility] [address] [id number] [place] [address] 0754 September, [facility] [address] [id number] [place] [address]- 5047 September, [facility] [address] [id number] [place] [address]- 4213 September, [facility] [address] [id number] [place] [address]- 9769 September, [facility] [address] [id number] [place] [address]- 7445 Aug, [facility] [address] [id number] [place] [address] Aug, [facility] [address] [id number] [place] [address]- 4500 Aug, [facility] [address] [id number] [place] [address]- 5846 Aug, [facility] [address] [id number] [place] [address]- 0455 Aug, [facility] [address] [id number] [place] [address]- 2279 Aug, [facility] [address] [id number] [place] [address]- 4215 Aug, [facility] [address] [id number] [place] [address]- 4772 Aug, [facility] [address] [id number] [place] [address]- 5338 Jul, [facility] [address] [id number] [place] [address]- 3748 Jul, [facility] [address] [id number] [place] [address]- 2177 Jun, [facility] [address] [id number] [place] [address]- 6770 Jun, [facility] [address] [id number] [place] [address]- 5550 Jun, [facility] [address] [id number], [place] [address]- 4066 Jun, [facility] [address] [id number] [place] [address]- 5057 Jun, [facility] [address] [id number] [place] [address]- 5258 May, [facility] [address] [id number] [place] [address]- 5756 May, [facility] [address] [id number] [place] [address]- 4842 May, [facility] [address] [id number] [place] [address]- 7655 May, [facility] [address] [id number] [place] [address]- 4492 Apr, [facility] [address] [id number] [place] [address]- 5226 Apr, [facility] [address] [id number] [place] [address]- 7635 Mar, [facility] [address] [id number] [place] [address]- 9377 Mar, [facility] [address] [id number] [place] [address]- 6797 Feb, [facility] [address] [id number] [place] [address]- 2780 Feb, [facility] [address] [id number] [place] [address]- 1151 Feb, [facility] [address] [id number] [place] [address]- 5978 Feb, [facility] [address] [id number] [place] [address]- 0097 Feb, [facility] [address] [id number] [place] [address] Feb, [facility] [address] [id number] [place] [address]- 3912 Feb, [facility] [address] [id number] [place] [address]- 4174 Jan, [facility] [address] [id number] [place] [address]- 7142 Jan, [facility] [address] [id number] [place] [address]- 4811 Dec, [facility] [address] [id number] [place] [address]- 9557 Dec, [facility] [address] [id number] [place] [address]- 5107 Dec, [facility] [address] [id number] [place] [address]- 7206 Dec, [facility] [address] [id number] [place] [address]- 0704 Dec, [facility] [address] [id number] [place] [address]- 0561 Nov, [facility] [address] [id number] [place] [address]- 1434 Nov, [facility] [address] [id number] [place] [address]- 2266 Nov, [facility] [address] [id number] [place] [address]- 4632 Oct, [facility] [address] [id number] [place] [address]- 0576 Oct, [facility] [address] [id number] [place] [address]- 3690 Oct, [facility] [address] [id number] [place] [address]- 9434 September, [facility] [address] [id number] [place] [address]- 0847 Aug, [facility] [address] [id number] [place] [address]- 1520 Aug, [facility] [address] [id number] [place] [address]- 6147 Aug, [facility] [address] [id number] [place] [address]- 4739 Jul, [facility] [address] [id number], [place] [address]- 5927 Jul, [facility] [address] [id number] [place] [address]- 6529 Jul, [facility] [address] [id number], [place] [address]- 3326 Jul, [facility] [address] [id number] [place] [address]- 6156 Jul, [facility] [address] [id number], [place] [address]- 7188 Jun, [facility] [address] [id number] [place] [address]- 3806 Jun, [facility] [address] [id number] [place] [address]- 8469 May, [facility] [address] [id number], [place] [address]- 0719 May, [facility] [address] [id number], [place] [address]- 4840 Apr, [facility] [address] [id number], [place] [address]- 4717 Apr, [facility] [address] [id number], [place] [address]- 7972 Mar, [facility] [address] [id number], [place] [address]- 9320 Mar, [facility] [address] [id number], [place] [address]- 0356 Mar, [facility] [address] [id number], [place] [address]- 2286 Mar, [facility] [address] [id number] [id number] Feb, [facility] [place] [address] [id number], [place] [address]- 2646 Feb, [facility] [place] [address] [id number] [place] [address]- 3117 Feb, [facility] [address] [id number] [place] [address]- 6384 Feb, [facility] [address] [id number] [place] [address]- 5881 Feb, [facility] [address] [id number] [place] [address]- 5637 Feb, [facility] [address] [id number] [place] [address]- 9799 Feb, [facility] [address] [id number] [place] [address]- 0713 Jan, [facility] [address] [id number] [place] [address]- 7461 Jan, [facility] [address] [id number] [place] [address]- 6673 Dec, [facility] [address] [id number] [place] [address]- 0992 Dec, [facility] [address] [id number] [place] [address]- 6284 Nov, [facility] [address] [id number] [place] [address]- 6328 Oct, [facility] [address] [id number] [place] [address]- 7846 September, [facility] [address] [id number] [place] [address]- 6752 September, [facility] [address] [id number] [place] [address]- 3266 September, [facility] [address] [id number] [place] [address]- 0928 Aug, [facility] [address] [id number] [place] [address]- 6577 May, [facility] [address] [id number], [place] [address]- 9324 May, [facility] [address] [id number], [place] [address]- 6312 Apr, [facility] [address] [id number], [place] [address]- 3063 Apr, [facility] [address] [id number], [place] [address]- 5032 Apr, [facility] [address] [id number], [place] [address]- 7652 Apr, [facility] [address] [id number], [place] [address]- 4213 Apr, [facility] [address] [id number], [place] [address]- 7104 Mar, [facility] [address] [id number], [place] [address]- 5750 Feb, [facility] [address] [id number], [place] [address]- 7386 Feb, [facility] [address] [id number], [place] [address]- 2697 September, [facility] [address] [id number], [place] [address]- 1809 Mar, [facility] [address] [id number], [place] [address]- 9996 Feb, [facility] [address] [id number], [place] [address]- 4131 Feb, [facility] [address] [id number] [address]39 Feb, IMMUNIZATIONS No Known Immunizations SOCIAL HISTORY [...] History foot fracture Hospitalization History [facility]- Back Pain 03/24/2017
--- OUTSIDE RECORDS SUMMARY | 2018-04-10 17:53 | XMS REPORT ---
Author Author CONNER ROCHE Organization [facility] Address [address] [place] [address] Care Team Providers Care Jail Guard Name Role Phone CONNER ROCHE Unavailable PROBLEMS Type Condition ICD9-CM Code LJZ19-UA Code Onset Dates Condition Status SNOMED Code Problem Color blindness H53.50 Active 095682002 Problem Presbyopia of both eyes H52.4 Active 75270843 Problem Nuclear senile cataract of both eyes H25.13 Active 290494820 Problem Astigmatism of both eyes, unspecified type H52.203 Active 04586126 Problem Essential hypertension I10 Active 46350644 Problem Other chronic pain G89.29 Active 68534053 Problem Hypermetropia of both eyes H52.03 Active 62313337 Problem Alzheimer's disease, unspecified G30.9 Active 474955421 Problem 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 Active 502344605 Problem 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 Active 447758780 Problem Gait instability R26.81 Active 28257854 Problem 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 Active 587142917 Problem Arthritis, 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 Active 280249731 Problem PVD (peripheral vascular disease) I73.9 Active 479001833 Problem 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 Active 004825887 Problem Hydrocele, unspecified hydrocele type N43.3 Active 71973077 Problem Other acute pulmonary embolism without acute cor pulmonale I26.99 Active 722140247 Problem At high risk for falls Z91.81 Active [id number] Problem Asymptomatic microscopic hematuria R31.21 Active 107460150 Problem Major depressive disorder, single episode, mild F32.0 Active 30308845 Problem Chronic fatigue R53.82 Active 76519689 Problem Benign non-nodular prostatic hyperplasia with lower urinary tract symptoms N40.1 Active 522579043 Problem Transient cerebral ischemia, unspecified transient cerebral ischemia type G45.9 Active 867589706 Problem Renal cyst, left Q61.00 Active 10315714 Problem 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 Active 34052540 Problem Anxiety F41.9 Active 55209001 Problem Overactive bladder N32.81 Active 759248437 Problem Primary insomnia F51.01 Active 065285193 Problem Mixed hyperlipidemia E78.2 Active 957454916 ALLERGIES Substance Reaction Event Type Date Status Vicodin Unknown Drug Allergy Jan, Active Lovastatin had a reaction to a statin but is unsure of which statin it was Drug Allergy Jan, Active Codeine Sulfate Unknown Drug Allergy Jan, Active ENCOUNTERS Encounter Location Date Diagnosis [facility] [id number] [place] [address] 57202- 5360 Jan, Flank pain R10.9 [facility] [address] 69655- 9908 Jan, [facility] [address] 06542- 1677 Dec, [facility] [address] 08106- 5740 Dec, [facility] [address] 31740- 0445 Dec, 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 and 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 [facility] [id number] [place] [address] 76899- 0443 Dec, Left flank pain R10.9 and Arthritis, 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 [facility] [id number] [place] [address] 03162- 6854 Dec, [facility] [address] 76992- 3842 Nov, Essential hypertension I10 and Mixed hyperlipidemia E78.2 [facility] [id number] [place] [address] 21673- 2430 Oct, Edema leg R60.0 [facility] [address] 03284- 2776 September, [facility] [id number] [place] [address] 58068- 8243 September, 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 and 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 [facility] [id number] [place] [address] 52672- 3798 September, PVD (peripheral vascular disease) I73.9 ; Major depressive disorder, single episode, mild F32.0 ; Chronic fatigue R53.82 ; Weight gain R63.5 and Arthralgia, unspecified joint M25.50 [facility] [id number] [place] [address] 97149- 3182 Aug, Acute low back pain, unspecified back pain laterality, with sciatica presence unspecified M54.5 [facility] [id number] [place] [address] 08356- 4584 Aug, Acute low back pain, unspecified back pain laterality, with sciatica presence unspecified M54.5 [facility] [id number] [place] [address] 56830- 5458 Aug, Pain R52 [facility] [id number] [place] [address] 95220- 0537 Jul, [facility] [id number] [place] [address] 90182- 7733 Jun, [facility] [id number] [place] [address] 21466- 5919 Jun, Medicare annual wellness visit, initial Z00.00 ; Mixed hyperlipidemia E78.2 ; Essential hypertension I10 ; Anxiety F41.9 ; 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 ; 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 ; Overactive bladder N32.81 ; Primary insomnia F51.01 ; At high risk for falls Z91.81 and Encounter for immunization Z23 [facility] [id number] [place] [address] 43263- 3717 May, [facility] [address] [address]- 3035 May, Essential hypertension I10 and Transient cerebral ischemia, unspecified transient cerebral ischemia type G45.9 [facility] [address] [address] May, Dental examination Z01.20 and Dental caries K02.9 [facility] [id number] [place] [address] 51218- 1036 May, [facility] [id number] [place] [address] 49716- 2592 May, [facility] [id number] [place] [address] 37052- 8994 May, 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 [facility] [id number] [place] [address] 58660- 4139 Apr, [facility] [id number] [place] [address] 81652- 0228 Apr, 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 and 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 [facility] [id number] [place] [address] 66664- 0405 Mar, 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 [facility] [id number] [place] [address] 61306- 6705 Mar, Mixed hyperlipidemia E78.2 ; Essential hypertension I10 ; Asymptomatic microscopic hematuria R31.21 and Renal cyst, left Q61.00 [facility] [id number] [place] [address] 73200- 4704 Mar, [facility] [id number] [place] [address] 08064- 6726 Feb, Encounter for immunization Z23 [facility] [id number] [place] [address] 52120- 6294 Feb, [facility] [address] [address]- 7990 Feb, [facility] [id number] [place] [address] 94432 -3547 Feb, ANUG (acute necrotizing ulcerative gingivitis) A69.1 [facility] [id number] [place] [address] 05032- 1166 Feb, [facility] [id number] [place] [address] 39080- 7569 Feb, 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 [facility] [id number] [place] [address] 60315- 8192 Feb, 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 and 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 [facility] [id number] [place] [address] 68957- 0651 Jan, 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 [facility] [id number] [place] [address] 95334- 4711 Jan, Gait instability R26.81 [facility] [address] [id number] [address] Jan [facility] [address] [id number] [place] [address] Dec [facility] [address] [address]- 9662 Dec, [facility] [address] [address]- 4476 Dec, [facility] [id number] [place] [address] 93509- 2012 Dec, Essential hypertension I10 ; Transient cerebral ischemia, unspecified transient cerebral ischemia type G45.9 and Anxiety F41.9 [facility] [address] [address]- 2586 Dec, Gait instability R26.81 [facility] [id number] [place] [address] 24981- 1316 Dec, [facility] [id number] [place] [address] 00774- 1636 Nov, 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 and 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 [facility] [id number] [place] [address] 73655- 0259 Nov, [facility] [id number] [place] [address] 98988- 1759 Nov, Gait instability R26.81 [facility] [id number] [place] [address] 17445- 0085 Nov, Anxiety F41.9 [facility] [id number] [place] [address] 93054- 0430 Nov, [facility] [id number] [place] [address] 19598- 7471 Nov, [facility] [id number] [place] [address] 42292- 2736 Oct, Gait instability R26.81 [facility] [id number] [place] [address] 71433- 1583 Oct, Anxiety F41.9 [facility] [id number] [place] [address] 50117- 8415 Oct, Gait instability R26.81 [facility] [id number] [place] [address] 40894- 2468 Oct, Gait instability R26.81 [facility] [id number] [place] [address] 47770- 8127 Oct, [facility] [id number] [place] [address] 04281- 1118 Oct, Anxiety F41.9 ; Chronic 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 use Z79.899 ; Encounter for immunization Z23 and Transient cerebral ischemia, unspecified transient cerebral ischemia type G45.9 [facility] [address] [address]- 4118 September, [facility] [address] [address]- 5850 September, Gait instability R26.81 [facility] [address] [address]- 8453 September, [facility] [id number] [address]- 2488 September, [facility] [id number] [address]- 5690 September, [facility] [id number] [address]- 5287 September, 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 and 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 [facility] [address] [address]- 1992 September, [facility] [id number] [address]- 1376 September, [facility] [address] [address]- 3381 September, [facility] [address] [address]- 7259 September, 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 [facility] [id number] [address]- 0826 Aug, 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 ; 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 ; Other acute pulmonary embolism without acute cor pulmonale I26.99 and Cough R05 [facility] [id number] [address]- 2158 Aug, [facility] [address] [address]- 3451 Aug, Gait instability R26.81 [facility] [address] [address]- 5484 Aug, 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 and 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 [facility] [address] [address]- 0227 Aug, [facility] [id number] [place] [address] 72199- 6237 Aug, 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 [facility] [id number] [place] [address] 20472- 9585 Jul, 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 [facility] [id number] [place] [address] 46032- 4101 Jul, [facility] [id number] [place] [address] 68885- 6153 Jul, 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 [facility] [id number] [place] [address] 74520- 1405 Jul, Anxiety F41.9 ; 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 and Transient cerebral ischemia, unspecified transient cerebral ischemia type G45.9 [facility] [address] [address]- 5770 Jun, Essential hypertension I10 [facility] [address] [address]- 0584 Jun, [facility] [address] [address]- 4553 Jun, [facility] [address] [address]- 3865 Jun, [facility] [address] [address]- 5937 Jun, Essential hypertension I10 ; Benign non-nodular prostatic hyperplasia with lower urinary tract symptoms N40.1 ; Anxiety F41.9 ; Pain in right knee M25.561 ; Pain in left knee M25.562 and Other chronic pain G89.29 [facility] [id number] [place] [address] 28726- 7503 May, [facility] [id number] [place] [address] 60899- 2229 May, [facility] [address] 42277- 9054 May, [facility] [address] 32425- 3744 Apr, [facility] [address] 75082- 9046 Mar, [facility] [address] 92559- 6747 Mar, Mixed hyperlipidemia E78.2 and Essential hypertension I10 [facility] [id number] [place] [address] 46124- 4428 Feb, [facility] [address] 98883- 4354 Feb, Ingrown nail L60.0 and Onychomycosis B35.1 [facility] [id number] [place] [address] 26334- 9519 Feb, Paronychia, left L03.012 [facility] [id number] [place] [address] 35982- 8287 Jan, [facility] [id number] [place] [address] 05794- 3599 Jan, Cramps of right lower extremity R25.2 and Mixed hyperlipidemia E78.2 [facility] [id number] [place] [address] 98372- 7670 Jan, Cramps of right lower extremity R25.2 ; Essential hypertension I10 ; Mixed hyperlipidemia E78.2 ; Chronic 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 use Z79.899 and Claudication I73.9 [facility] [id number] [place] [address] 61181- 0783 Jan, Right leg pain M79.604 [facility] [id number] [place] [address] 84861- 9426 Dec, [facility] [address] 87252- 2042 Nov, [facility] [id number] [place] [address] 19238- 8029 Nov, [facility] [id number] [place] [address] 64561- 7983 Nov, [facility] [id number] [place] [address] 69288- 2238 Nov, Dermatofibroma D23.9 [facility] [id number] [place] [address] 22913- 8886 Nov, [facility] [id number] [place] [address] 43315- 6687 Oct, [facility] [id number] [place] [address] 29525- 1541 Oct, [facility] [id number] [place] [address] 88891- 4405 September, Benign non-nodular prostatic hyperplasia with lower urinary tract symptoms N40.1 ; Essential hypertension I10 ; Overactive bladder N32.81 and Fatigue, unspecified type R53.83 [facility] [id number] [place] [address] 36628- 7633 September, [facility] [id number] [place] [address] 19914- 0246 September, [facility] [id number] [place] [address] 45146- 3107 Aug, [facility] [id number] [place] [address] 72113- 9075 Jul, [facility] [address] 03242- 0922 Jul, Pelvic pain R10.2 ; Jock itch B35.6 ; Essential hypertension I10 and Hydrocele, unspecified hydrocele type N43.3 [facility] [id number] [place] [address] 04378- 5523 Jun, [facility] [id number] [place] [address] 17480- 7510 Jun, [facility] [address] 66774- 5953 Jun, Benign non-nodular prostatic hyperplasia with lower urinary tract symptoms N40.1 [facility] [id number] [place] [address] 82870- 3957 Jun, Benign non-nodular prostatic hyperplasia with lower urinary tract symptoms N40.1 [facility] [id number] [place] [address] 37329- 2840 Jun, [facility] [id number] [place] [address] 55668- 1998 May, [facility] [id number] [place] [address] 85092- 2568 Apr, [facility] [id number] [place] [address] 19787- 4257 Apr, [facility] [id number] [place] [address] 04598- 6499 10 Apr, 2015 Other acute pulmonary embolism without acute cor pulmonale I26.99 ; Anxiety F41.9 ; 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 and 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 [facility] [id number] [place] [address] 63445- 3712 Apr, [facility] [address] [place] [address]- 0928 Apr, [facility] [id number] [place] [address] 31203- 0897 Mar, [facility] [id number] [place] [address] 03041- 4767 Mar, [facility] [id number] [place] [address] 59404- 8410 Feb, Cough R05 [facility] [address] 97533- 5078 Feb, [facility] [address] 96091- 8260 Feb, Encounter for immunization Z23 [facility] [id number] [place] [address] 85283- 1347 Feb, Other and unspecified hyperlipidemia 272.4 [facility] [id number] [place] [address] 36046- 3500 Jan, [facility] [id number] [place] [address] 57145- 8739 Jan, TIA (transient ischemic attack) 435.9 [facility] [id number] [place] [address] 60645- 6231 Dec, [facility] [id number] [place] [address] 53941- 0790 Dec, [facility] [id number] [place] [address] 60627- 1700 Dec, [facility] [id number] [place] [address] 94109- 7614 Nov, [facility] [id number] [place] [address] 62898- 2627 Oct, Chronic cough 786.2 [facility] [id number] [place] [address] 35342- 2843 Oct, [facility] [address] [address]- 1364 Oct, [facility] [address] [address]- 0158 Oct, [facility] [address] [address]- 4052 Oct, [facility] [id number] [place] [address] 06325- 2607 05 Oct, 2014 Chronic cough 786.2 [facility] [address] 0032 Oct, Cough 786.2 ; Hypertension 401.9 ; BPH (benign prostatic hyperplasia) 600.00 ; Other and unspecified hyperlipidemia 272.4 and Hydrocele 603.9 [facility] [address] [address]- 2853 Oct, [facility] [address] [address]- 0450 September, [facility] [address] [address]- 8480 Aug, [facility] [address] [address]- 3725 Aug, [facility] [address] [address]- 5136 Jul, [facility] [address] [address]- 0338 Jul, [facility] [address] [address]- 1992 Jul, [facility] [address] [address]- 4498 Jul, [facility] [id number] 1550 Jul, [facility] [address] [place] [address]- 3416 Jun, 2014 [facility] [place] [facility] [address] [id number] [place] [address]- 7016 Jun, 2014 [facility] [place] [facility] [address] [id number] [place] [address]- 1756 Jun, 2014 [facility] [place] [facility] [address] [id number] [place] [address]- 5226 Jun, 2014 [facility] [place] [facility] [address] [id number] [place] [address] 2544 Jun, 2014 [facility] [place] [facility] [address] [id number] [place] [address]- 1870 Jun, 2014 [facility] [place] [facility] [address] [id number] [place] [address]- 4433 Jun, 2014 [facility] [place] [facility] [address] [id number] [place] [address]- 4087 Jun, [facility] [place] [facility] [address] [id number] [place] [address]- 5053 May, [facility] [place] [facility] [address] [id number] [place] [address]- 9917 May, [facility] [place] [facility] [address] [facility] [id number] [place] [address]- 9619 May, [facility] [place] [facility] [address] [id number] [place] [address] 2543 May, [facility] [place] [facility] [address] [id number] [address]- 2544 May, [facility] [place] [facility] [address] [id number] [place] [address]- 2183 May, [facility] [place] [facility] [address] [id number] [place] [address]- 2541 May, [facility] [place] [facility] [address] [id number] [place] [address]- 0676 May, [facility] [place] [facility] [address] [id number] [place] [address]- [address] May, [facility] [place] [facility] [address] [id number] [place] [address] May, [facility] [place] [facility] [address] [id number] [place] [address] 2011 Apr, [facility] [place] [facility] [address] [id number] [place] [address] Apr, [facility] [place] [facility] [address] [id number] [place] [address] Apr, [facility] [place] [facility] [address] [id number] [place] [address] Apr, [facility] [place] [facility] [address] [id number] [place] [address] Apr, [facility] [place] [facility] [address] [id number] [place] [address] Apr, [facility] [place] [facility] [address] [id number] [place] [address] Apr, [facility] [place] [facility] [address] [id number] [place] [address] Apr, [facility] [place] [facility] [address] [id number] [place] [address] Mar, [facility] [place] [facility] [address] [id number] [place] [address] Mar, [facility] [place] [facility] [address] [id number] [place] [address] 6[address] Mar, [facility] [place] [facility] [address] [id number] [place] [address] 4[address] Mar, [facility] [place] [facility] [address] [id number] [place] [address] 455[address] Mar, [facility] [place] [facility] [address] [id number] [place] [address]- [address]666 14 Mar, 2014 [facility] [place] [facility] [address] [id number] [place] [address] 9[address] Mar, [facility] [place] [facility] [address] [id number] [place] [address]- 8831 Mar, [facility] [place] [facility] [address] [id number] [place] [address] 4180 Mar, [facility] [place] [facility] [address] [id number] [place] [address] 1748 Mar, [facility] [place] [facility] [address] [id number] [place] [address] 5382 Feb, [facility] [place] [facility] [address] [id number] [place] [address] 8704 Feb, [facility] [place] [facility] [address] [id number] [place] [address]- 3947 Feb, [facility] [place] [facility] [address] [id number] [place] [address]- 2362 29 Feb, 2014 [facility] [place] [facility] [address] [id number] [place] [address]- 4071 Feb, [facility] [place] [facility] [address] [id number] [place] [address]- 5247 Feb, [facility] [place] [facility] [address] [id number] [place] [address]- 0671 30 Jan, 2013 [facility] [place] [facility] [address] [id number] [place] [address]100 30 Sep, 2013 [facility] [place] [facility] [address] [id number] [place] [address]- 2722 24 Jan, 2013 [facility] [place] [facility] [address] [id number] [place] [address]- 6052 24 Jan, 2013 [facility] [place] [facility] [address] [id number] [place] [address]- 6712 19 Jan, 2013 [facility] [place] [facility] [address] [id number] [place] [address]- 3095 19 Jan, 2013 [facility] [place] [facility] [address] [id number] [place] [address] 2546 16 Jan, 2013 [facility] [place] [facility] [address] [id number] [place] [address] 2546 16 Jan, 2013 [facility] [place] [facility] [address] [id number] [place] [address] 2546 16 Jan, 2013 [facility] [place] [facility] [address] [id number] [place] [address] 2545 16 Jan, 2013 [facility] [place] [facility] [address] [id number] [place] [address]- 6320 Jan, [facility] [place] [facility] [address] [id number] [place] [address]- 9930 Jan, [facility] [place] [facility] [address] [id number] [place] [address]- 0768 Dec, [facility] [place] [facility] [address] [id number] [place] [address]- 1067 Dec, [facility] [place] [facility] [address] [id number] [place] [address]- 0870 Dec, [facility] [place] [facility] [address] [id number] [place] [address]- 8874 Dec, [facility] [place] [facility] [address] [id number] [place] [address]- 7538 Dec, [facility] [place] [facility] [address] [id number] [place] [address]- 6945 Dec, [facility] [place] [facility] [address] [id number] [place] [address] 1953 Nov, [facility] [place] [facility] [address] [id number] [place] [address]- 9267 Nov, [facility] [place] [facility] [address] [id number] [place] [address]- 3919 Nov, [facility] [place] [facility] [address] [id number] [place] [address]- 0209 Nov, [facility] [place] [facility] [address] [id number] [place] [address]- 2568 Nov, [facility] [place] [facility] [address] [id number] [place] [address]- 4412 Nov, [facility] [place] [facility] [address] [id number] [place] [address]- 2568 Nov, [facility] [place] [facility] [address] [id number] [place] [address]- 1873 Nov, [facility] [place] [facility] [address] [id number] [place] [address]- 2993 Oct, [facility] [place] [facility] [address] [id number] [place] [address]- 1602 Oct, [facility] [place] [facility] [address] [id number] [place] [address]- 2517 Oct, [facility] [place] [facility] [address] [id number] [place] [address]- 9730 Oct, [facility] [place] [facility] [address] [id number] [place] [address]- 2979 September, [facility] [place] [facility] [address] [id number] [place] [address]- 0725 September, [facility] [place] [facility] [address] [id number] [place] [address] 7207 September, [facility] [place] [facility] [address] [id number] [place] [address]- 3966 September, [facility] [place] [facility] [address] [id number] [place] [address]- 1375 September, [facility] [place] [facility] [address] [id number] [place] [address] September, [facility] [place] [facility] [address] [id number] [place] [address]- 8663 Aug, [facility] [place] [facility] [address] [id number] [place] [address]- 6635 Aug, [facility] [place] [facility] [address] [id number] [place] [address]- 9461 Aug, [facility] [place] [facility] [address] [id number] [place] [address]- 5960 Aug, [facility] [place] [facility] [address] [id number] [place] [address]- 1280 Aug, [facility] [place] [facility] [address] [id number] [place] [address]- 5439 Aug, [facility] [place] [facility] [address] [id number] [place] [address]- 9708 Aug, [facility] [place] [facility] [address] [id number] [place] [address]- 6872 Aug, [facility] [place] [facility] [address] [id number] [place] [address]- 0752 Jul, [facility] [place] [facility] [address] [id number] [place] [address]- 3006 Jul, [facility] [place] [facility] [address] [facility] [id number] [place] [address]- 0116 Jun, [facility] [place] [facility] [address] [id number] [place] [address]- 3237 Jun, [facility] [place] [facility] [address] [id number] [place] [address]- 1018 Jun, [facility] [place] [facility] [address] [id number] [place] [address]- 9988 Jun, [facility] [place] [facility] [address] [id number] [place] [address]- 5500 Jun, [facility] [place] [facility] [address] [id number] [place] [address]- 6496 May, [facility] [place] [facility] [address] [id number] [place] [address]- 9046 May, [facility] [place] [facility] [address] [id number] [place] [address]- 8854 May, [facility] [place] [facility] [address] [id number] [place] [address]- 7278 May, [facility] [place] [facility] [address] [id number] [place] [address]- 2268 Apr, [facility] [place] [facility] [address] [id number] [place] [address]- 3999 Apr, [facility] [place] [facility] [address] [id number] [place] [address]- 6381 Mar, [facility] [place] [facility] [address] [id number] [place] [address]- 2942 Mar, [facility] [place] [facility] [address] [id number] [place] [address]- 1336 Feb, [facility] [place] [facility] [address] [id number] [place] [address]- 9322 Feb, [facility] [place] [facility] [address] [id number] [place] [address]- 5677 Feb, [facility] [place] [facility] [address] [id number] [place] [address]- 0536 Feb, [facility] [place] [facility] [address] [id number] [place] [address]- 0314 Feb, [facility] [place] [facility] [address] [id number] [place] [address]- 9461 Feb, [facility] [place] [facility] [address] [id number] [place] [address]- 6738 Feb, [facility] [place] [facility] [address] [id number] [place] [address]- 5230 Jan, [facility] [place] [facility] [address] [id number] [place] [address]- 4483 Jan, [facility] [address] [id number] [place] [address]- 4556 Dec, [facility] [place] [facility] [address] [id number] [place] [address]- 9769 Dec, [facility] [place] [facility] [address] [id number] [place] [address]- 8114 Dec, [facility] [place] [facility] [address] [id number] [place] [address]- 7795 Dec, [facility] [place] [facility] [address] [id number] [place] [address]- 1879 Dec, [facility] [place] [facility] [address] [id number] [place] [address]- 3116 Nov, [facility] [address] [id number] [place] [address]- 5270 Nov, [facility] [place] [facility] [address] [id number] [place] [address]- 8395 Nov, [facility] [place] [facility] [address] [id number] [place] [address]- 4435 Oct, [facility] [place] [facility] [address] [id number] [place] [address]- 8452 Oct, [facility] [place] [facility] [address] [id number] [place] [address]- 1824 Oct, [facility] [place] [facility] [address] [id number] [place] [address]- 5396 September, [facility] [place] [facility] [address] [id number] [place] [address]- 0585 Aug, [facility] [place] [facility] [address] [id number] [place] [address]- 3849 Aug, [facility] [place] [facility] [address] [id number] [place] [address]- 7682 Aug, [facility] [place] [facility] [address] [id number] [place] [address]- 7566 29 Jul, 2012 [facility] [address] [id number] [place] [address]- 6986 18 Jul, 2012 [facility] [address] [facility] [id number] [place] [address]- 2546 15 Jul, 2012 [facility] [address] [id number] [place] [address] 2546 04 Jul, 2012 [facility] [address] [facility] [id number] [place] [address]- 2546 Jul, [facility] [address] [id number] [place] [address]- 4746 28 Jun, 2012 [facility] [address] [facility] [id number] [place] [address]- 2546 Jun, [facility] [address] [facility] [id number] [place] [address]- 4796 May, [facility] [address] [facility] [id number] [place] [address]- 9236 May, [facility] [address] [id number] [place] [address]- 1046 Apr, [facility] [address] [facility] [id number] [place] [address]- 4436 Apr, [facility] [address] [facility] [id number] [place] [address]- 2546 Mar, [facility] [address] [facility] [id number] [place] [address]- 2546 Mar, [facility] [address] [facility] [id number] [place] [address]- 2546 Mar, [facility] [address] [facility] [id number] [place] [address]- 2546 Mar, [facility] [address] [id number] [id number] Feb, [facility] [place] [facility] [address] [id number] [place] [address]- 5472 Feb, [facility] [place] [facility] [address] [id number] [place] [address]- 5437 Feb, [facility] [place] [facility] [address] [facility] [id number] [place] [address]- 1344 Feb, [facility] [place] [facility] [address] [id number] [place] [address]- 6438 Feb, [facility] [place] [facility] [address] [id number] [place] [address]- 2910 Feb, [facility] [place] [facility] [address] [facility] [id number] [place] [address]- 2358 Feb, [facility] [place] [facility] [address] [id number] [place] [address]- 1127 Jan, [facility] [place] [facility] [address] [facility] [id number] [place] [address]- 8409 Jan, [facility] [place] [facility] [address] [id number] [place] [address]- 9058 Dec, [facility] [place] [facility] [address] [facility] [id number] [place] [address]- 8660 Dec, [facility] [place] [facility] [address] [facility] [id number] [place] [address]- 3567 Nov, [facility] [place] [facility] [address] [id number] [place] [address]- 8801 Oct, [facility] [place] [facility] [address] [facility] [id number] [place] [address]- 8653 September, [facility] [place] [facility] [address] [facility] [id number] [place] [address]- 9162 September, [facility] [place] [facility] [address] [facility] [id number] [place] [address]- 2429 September, [facility] [place] [facility] [address] [facility] [id number] [place] [address]- 7619 10 Aug, 2011 [facility] [address] [id number] [place] [address]- 0272 May, [facility] [address] [facility] [id number] [place] [address]- 2166 May, [facility] [address] [facility] [id number] [place] [address]- 1076 Apr, [facility] [address] [id number] [place] [address]- 1114 Apr, [facility] [address] [facility] [id number] [place] [address]- 0196 Apr, [facility] [address] [facility] [id number] [place] [address]- 7218 Apr, [facility] [address] [facility] [id number] [place] [address]- 2087 Apr, [facility] [address] [facility] [id number] [place] [address]- 1343 Mar, [facility] [address] [facility] [id number] [place] [address]- 6616 Feb, [facility] [address] [facility] [id number] [place] [address]- 7634 Feb, [facility] [address] [facility] [id number] [place] [address]- 8297 September, [facility] [address] [facility] [id number] [place] [address]- 2943 Mar, [facility] [address] [facility] [id number] [place] [address]- 9384 14 Feb, 2010 [facility] [address] [facility] [id number] [place] [address]- 8660 Feb, [facility] [address] [facility] [id number] [place] [address]- 2282 Feb, IMMUNIZATIONS No Known Immunizations SOCIAL HISTORY Never Assessed REASON FOR VISIT Back pain, PT reports it has been havign back pain for 10 days now. -Bill WINSTON PLAN OF CARE VITAL SIGNS Height 65 in 2018-01-25 Weight 203.5 lbs 2018-01-25 Temperature 97.7 degrees Fahrenheit 2018-01-25 Heart Rate 88 bpm 2018-01-25 Respiratory Rate 20 2018-01-25 Oximetry on room air:94 % 2018-01-25 BMI 33.86 kg/m2 2018-01-25 Blood pressure systolic 132 mmHg 2018-01-25 Blood pressure diastolic 80 mmHg 2018-01-25 MEDICATIONS Medication Instructions Dosage Frequency Start Date End Date Duration Status Trazodone HCl 150 MG Orally Once a day 1 tablet at bedtime 24h 30 days Active Aricept 5 mg Orally Once a day 1 tablet at bedtime 24h 30 days Active PredniSONE 20 mg Orally Once a day 2 tablets 24h Jan, Jan, 5 days Active Cymbalta 30 MG Orally Once a day 3 capsule 24h 30 Active Flomax 0.4 MG TAKE ONE CAPSULE BY MOUTH ONCE DAILY 30 MINUTES AFTER THE SAME MEAL EACH DAY 30 Active Lisinopril-Hydrochlorothiazide 20-25 MG Orally Once a day 1 tablet 24h Oct, 30 day(s) Active Abilify 5 mg Orally Once a day 1 tablet 24h 30 day(s) Active Finasteride 5 MG TAKE ONE TABLET BY MOUTH ONCE DAILY 30 Active Diclofenac Sodium 75 MG Orally Twice a day 1 tablet with food or milk 12h Dec, Apr, 30 day(s) Active Donepezil HCl 5 MG TAKE ONE TABLET BY MOUTH ONCE DAILY AT BEDTIME 30 Active Namenda 10 MG Orally Twice a day 1 tablet 12h Active Oxybutynin Chloride 5 MG TAKE ONE TABLET BY MOUTH TWICE DAILY 30 Active Famotidine 20 mg Orally Once a day 1 tablet at bedtime 24h Nov, 30 day(s) Active RESULTS Name Result Date Reference Range UA LONG DIP (IN HOUSE) 2018-01-25 Lot # [id number] Exp date 08/2018 Clarity clear Color yellow Odor none GLU negative LOUANN negative KET negative SG 1.015 BLO trace-intact pH 5.5 Protein negative URO 0.2 NIT negative JALEN negative Lot # Exp date PROCEDURES Procedure Date Ordered Result Body Site URINALYSIS, AUTO, W/O SCOPE Jan 25, 2018 [facility] VISIT ESTABLISHED PATIENT Jan 25, 2018 INSTRUCTIONS MEDICATIONS ADMINISTERED No Known [...] foot fracture Hospitalization History Via [facility]OR[facility]- Back Pain 03/24/2017
--- OUTSIDE RECORDS SUMMARY | 2018-04-10 17:54 | XMS REPORT ---
Author Author FRANKIE ROCHE Organization [facility] Address [address] [place] [address] Care Team Providers Care Cloud Subject Matter Expert Name Role Phone FRANKIE ROCHE Unavailable PROBLEMS Type Condition ICD9-CM Code QCL38-XY Code Onset Dates Condition Status SNOMED Code Problem Color blindness H53.50 Active 858714739 Problem Presbyopia of both eyes H52.4 Active 15626257 Problem Nuclear senile cataract of both eyes H25.13 Active 837755227 Problem Astigmatism of both eyes, unspecified type H52.203 Active 71272487 Problem Essential hypertension I10 Active 53198928 Problem Other chronic pain G89.29 Active 61769483 Problem Hypermetropia of both eyes H52.03 Active 85025351 Problem Alzheimer's disease, unspecified G30.9 Active 592642204 Problem 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 Active 280498079 Problem 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 Active 794286314 Problem Gait instability R26.81 Active 07502442 Problem 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 Active 668062465 Problem Arthritis, 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 Active 379375390 Problem PVD (peripheral vascular disease) I73.9 Active 366713117 Problem 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 Active 247663431 Problem Hydrocele, unspecified hydrocele type N43.3 Active 58211610 Problem Other acute pulmonary embolism without acute cor pulmonale I26.99 Active 933802970 Problem At high risk for falls Z91.81 Active [id number] Problem Asymptomatic microscopic hematuria R31.21 Active 534588573 Problem Major depressive disorder, single episode, mild F32.0 Active 03603619 Problem Chronic fatigue R53.82 Active 52123146 Problem Benign non-nodular prostatic hyperplasia with lower urinary tract symptoms N40.1 Active 361269934 Problem Transient cerebral ischemia, unspecified transient cerebral ischemia type G45.9 Active 163501704 Problem Renal cyst, left Q61.00 Active 92273341 Problem 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 Active 45933284 Problem Anxiety F41.9 Active 13852062 Problem Overactive bladder N32.81 Active 175007942 Problem Primary insomnia F51.01 Active 223628668 Problem Mixed hyperlipidemia E78.2 Active 332953007 ALLERGIES No Information ENCOUNTERS Encounter Location Date Diagnosis [place] [id number] [place] [address] 49313- 8145 07 Jan, 2018 Flank pain R10.9 [facility] [address] 46466- 0134 Jan, [place] [address] 75023- 8710 Dec, [place] [id number] [place] [address] 92265- 7794 Dec, [place] [address] 04916- 2932 Dec, 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 and 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 [place] [address] 80647- 2795 Dec, Left flank pain R10.9 and Arthritis, 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 [place] [id number] [place] [address] 89427- 5857 Dec, [facility] [address] 49106- 0870 Nov, Essential hypertension I10 and Mixed hyperlipidemia E78.2 [place] [id number] [place] [address] 36559- 8697 Oct, Edema leg R60.0 [facility] [id number] [place] [address] 37027- 2087 September, [facility] [id number] [place] [address] 19088- 0463 September, 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 and 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 [place] [id number] [place] [address] 49821- 2656 September, PVD (peripheral vascular disease) I73.9 ; Major depressive disorder, single episode, mild F32.0 ; Chronic fatigue R53.82 ; Weight gain R63.5 and Arthralgia, unspecified joint M25.50 [place] [address] 42534- 8393 Aug, Acute low back pain, unspecified back pain laterality, with sciatica presence unspecified M54.5 [place] [address] 83385- 0446 Aug, Acute low back pain, unspecified back pain laterality, with sciatica presence unspecified M54.5 [place] [address] 77838- 0438 Aug, Pain R52 [place] [address] 89126- 4169 Jul, [place] [address] 97232- 4733 Jun, [place] [id number] [place] [address] 56340- 2544 07 Jun, 2017 Medicare annual wellness visit, initial Z00.00 ; Mixed hyperlipidemia E78.2 ; Essential hypertension I10 ; Anxiety F41.9 ; 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 ; 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 ; Overactive bladder N32.81 ; Primary insomnia F51.01 ; At high risk for falls Z91.81 and Encounter for immunization Z23 [place] [id number] [place] [address] 08369- 2794 May, [place] [address] 91504- 7971 May, Essential hypertension I10 and Transient cerebral ischemia, unspecified transient cerebral ischemia type G45.9 [facility] [address] [place] [address] [id number] May, Dental examination Z01.20 and Dental caries K02.9 [facility] [id number] [place] [address] 94002- 9748 May, [facility] [address] 59625- 5551 May, [facility] [address] 46181- 5701 May, 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 [place] [address] 72262- 4129 Apr, [place] [address] 67744- 1477 Apr, 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 and 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 [place] [address] 91038- 0960 Mar, 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 [place] [address] 12556- 5790 Mar, Mixed hyperlipidemia E78.2 ; Essential hypertension I10 ; Asymptomatic microscopic hematuria R31.21 and Renal cyst, left Q61.00 [place] [id number] [place] [address] 91997- 9869 Mar, [facility] [id number] [place] [address] 13487- 0981 Feb, Encounter for immunization Z23 [place] [address] 84567- 1520 Feb, [place] [address] 17561- 0346 Feb, [facility] [address] 15924 -5184 Feb, ANUG (acute necrotizing ulcerative gingivitis) A69.1 [facility] [id number] [place] [address] 86355- 1314 Feb, [facility] [id number] [place] [address] 99178- 2193 Feb, 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 [facility] [id number] [place] [address] 92471- 1433 Feb, 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 and 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 [facility] [id number] [place] [address] 93731- 5124 Jan, 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 [facility] [id number] [place] [address] 84440- 3173 Jan, Gait instability R26.[address] [facility] [address] [id number] [place] [address] [facility] [address] [id number] [place] [address] Dec [facility] [address] [place] [address] 14676- 9523 Dec, [facility] [address] [place] [address] 91119- 5244 Dec, [facility] [id number] [place] [address] 67080- 0192 Dec, Essential hypertension I10 ; Transient cerebral ischemia, unspecified transient cerebral ischemia type G45.9 and Anxiety F41.9 [facility] [id number] [place] [address] 08622- 8445 Dec, Gait instability R26.81 [facility] [id number] [place] [address] 50564- 7214 Dec, [facility] [id number] [place] [address] 12454- 7348 Nov, 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 and 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 [facility] [id number] [place] [address] 33009- 8791 Nov, [facility] [address] [place] [address] 72355- 3396 Nov, Gait instability R26.81 [facility] [id number] [place] [address] 87574- 1271 Nov, Anxiety F41.9 [facility] [id number] [place] [address] 92568- 0480 Nov, [facility] [id number] [place] [address] 78287- 3204 Nov, [facility] [id number] [place] [address] 22395- 1768 Oct, Gait instability R26.81 [facility] [id number] [place] [address] 34773- 6618 Oct, Anxiety F41.9 [facility] [id number] [place] [address] 37925- 3617 Oct, Gait instability R26.81 [facility] [address] [address]- 2114 Oct, Gait instability R26.81 [facility] [address] [place] [address] 46876- 4139 Oct, [facility] [address] [place] [address] 98631- 5481 Oct, Anxiety F41.9 ; Chronic 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 use Z79.899 ; Encounter for immunization Z23 and Transient cerebral ischemia, unspecified transient cerebral ischemia type G45.9 [facility] [address] [address]- 6667 September, [facility] [id number] [address]- 6196 September, Gait instability R26.81 [facility] [address] [facility] [id number], [place] [address]- 2200 September, [facility] [address] [facility] [id number], [place] [address]- 4576 September, [facility] [id number] [address]- 5885 September, [facility] [address] [facility] [id number], [place] [address]- 9673 September, 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 and 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 [facility] [id number] [address]- 7486 September, [facility] [address] [address]- 4605 September, [facility] [address] [facility] [id number], [place] [address]- 3669 September, [facility] [id number] [address]- 2143 September, 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 [facility] [address], [place] [address]- 3055 Aug, 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 ; 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 ; Other acute pulmonary embolism without acute cor pulmonale I26.99 and Cough R05 [facility] [address] [facility] [id number], [place] [address]- 9628 Aug, [facility] [id number] [address]- 1106 Aug, Gait instability R26.81 [facility] [id number] [address]- 6125 Aug, 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 and 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 [place] [id number] [place] [address] 92619- 2767 Aug, [place] [id number] [place] [address] 6534 Aug, 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 [place] [id number] [place] [address] 27718- 0913 Jul, 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 [place] [id number] [place] [address] 44629- 7223 Jul, [place] [address] 02681- 9050 Jul, 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 [place] [id number] [place] [address] 54732- 6340 Jul, Anxiety F41.9 ; 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 and Transient cerebral ischemia, unspecified transient cerebral ischemia type G45.9 [place] [id number] [place] [address] 13599- 6056 Jun, Essential hypertension I10 [place] [id number] [place] [address] 08217- 6748 Jun, [place] [id number] [place] [address] 09686- 2989 Jun, [place] [id number] [place] [address] 79407- 5027 Jun, [place] [id number] [place] [address] 88495- 4492 Jun, Essential hypertension I10 ; Benign non-nodular prostatic hyperplasia with lower urinary tract symptoms N40.1 ; Anxiety F41.9 ; Pain in right knee M25.561 ; Pain in left knee M25.562 and Other chronic pain G89.29 [place] [id number] [place] [address] 06561- 1562 May, [facility] [id number] [place] [address] 71974- 9671 May, [facility] [id number] [place] [address] 18130- 9272 May, [facility] [id number] [place] [address] 85675- 8037 Apr, [facility] [id number] [place] [address] 29925- 7606 Mar, [facility] [address] 66786- 3677 Mar, Mixed hyperlipidemia E78.2 and Essential hypertension I10 [place] [id number] [place] [address] 28997- 3462 Feb, [facility] [id number] [place] [address] 50049- 1701 Feb, Ingrown nail L60.0 and Onychomycosis B35.1 [place] [id number] [place] [address] 78936- 2759 Feb, Paronychia, left L03.012 [place] [id number] [place] [address] 90186- 4898 Jan, [facility] [id number] [place] [address] 39631- 2354 Jan, Cramps of right lower extremity R25.2 and Mixed hyperlipidemia E78.2 [place] [id number] [place] [address] 39045- 2470 Jan, Cramps of right lower extremity R25.2 ; Essential hypertension I10 ; Mixed hyperlipidemia E78.2 ; Chronic 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 use Z79.899 and Claudication I73.9 [place] [id number] [place] [address] 05430- 2533 Jan, Right leg pain M79.604 [facility] [address], [place] [address]- 7154 Dec, [facility] [address] [place] [address] 271514- 5255 Nov, [facility] [id number] [place] [address] 67123- 8625 Nov, [facility] [id number] [place] [address] 81892- 2470 Nov, [facility] [id number] [place] [address] 58234- 1362 Nov, Dermatofibroma D23.9 [facility] [id number] [place] [address] 11091- 1805 Nov, [facility] [id number] [place] [address] 20801- 8065 Oct, [facility] [id number] [place] [address] 46421- 2009 Oct, [facility] [id number] [place] [address] 81516- 6860 September, Benign non-nodular prostatic hyperplasia with lower urinary tract symptoms N40.1 ; Essential hypertension I10 ; Overactive bladder N32.81 and Fatigue, unspecified type R53.83 [facility] [address], [place] [address]- 5738 September, [facility] [address] 0017 September, [facility] [address] [place] [address] 972414- 5466 Aug, [facility] [address]- 2991 Jul, [facility] [id number] [place] [address] 72082- 0833 Jul, Pelvic pain R10.2 ; Jock itch B35.6 ; Essential hypertension I10 and Hydrocele, unspecified hydrocele type N43.3 [facility] [id number] [place] [address] 79585- 1252 Jun, [facility] [id number] [place] [address] 65657- 6573 Jun, [facility] [address] 57773- 6654 Jun, Benign non-nodular prostatic hyperplasia with lower urinary tract symptoms N40.1 [facility] [address] 95178- 6174 Jun, Benign non-nodular prostatic hyperplasia with lower urinary tract symptoms N40.1 [facility] [id number] [place] [address] 13236- 4392 Jun, [facility] [address] 75330- 3387 May, [facility] [id number] [place] [address] 63033- 1427 Apr, [facility] [id number] [place] [address] 33641- 7674 Apr, [facility] [address] [place] [address] 81197- 9784 Apr, Other acute pulmonary embolism without acute cor pulmonale I26.99 ; Anxiety F41.9 ; 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 and 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 [facility] [address] [place] [address] 19101- 1922 Apr, [facility] [id number] [place] [address] 50800- 1530 Apr, [facility] [id number] [place] [address] 44834- 0969 Mar, [facility] [address] [place] [address] 44275- 9008 Mar, [facility] [id number] [place] [address] 42627- 0389 Feb, Cough R05 [facility] [address] [place] [address] 81884- 5744 Feb, [facility] [address] 85077- 7563 Feb, Encounter for immunization Z23 [facility] [address] 51172- 3505 Feb, Other and unspecified hyperlipidemia 272.4 [facility] [address] [place] [address] 14941- 3260 Jan, [facility] [address] 98364- 3979 Jan, TIA (transient ischemic attack) 435.9 [facility] [id number] [place] [address] 19298- 2981 Dec, [facility] [id number] [place] [address] 09617- 5702 Dec, [facility] [address] [place] [address] 62415- 5720 Dec, [facility] [id number] [place] [address] 34091- 3711 Nov, [facility] [id number] [place] [address] 61740- 4903 Oct, Chronic cough 786.2 [facility] [address] [place] [address] 59168- 5608 Oct, [facility] [address] [place] [address] 77051- 5696 Oct, [facility] [address] 09489- 7023 Oct, [facility] [address], [place] [address]- 0720 Oct, [facility] [address], [place] [address]- 4238 Oct, Chronic cough 786.2 [facility] [address] 8273 Oct, Cough 786.2 ; Hypertension 401.9 ; BPH (benign prostatic hyperplasia) 600.00 ; Other and unspecified hyperlipidemia 272.4 and Hydrocele 603.9 [facility] [address] [place] [address] 83466- 3304 Oct, [facility] [address], [place] [address]- 4144 September, [facility] [address], [place] [address]- 2979 Aug, [facility] [address], [place] [address]- 8480 Aug, [facility] [address], [place] [address]- 9770 Jul, [facility] [address], [place] [address]- 1302 Jul, [facility] [address], [place] [address]- 4921 Jul, [facility] [address], [place] [address]- 9843 Jul, [facility] [address]- 5091 Jul, [facility] [address]- 0334 Jun, [facility] [id number] 0206 Jun, [facility] [place] [facility] [address] [id number] [place] [address]- 0477 Jun, [facility] [place] [facility] [address] [id number] [place] [address]- 8571 Jun, [facility] [place] [facility] [address] [id number] [place] [address]- 6949 Jun, 2014 [facility] [place] [facility] [address] [id number] [place] [address]- 5270 Jun, [facility] [place] [facility] [address] [id number] [place] [address]- 0963 Jun, [facility] [place] [facility] [address] [id number] [place] [address]- 1688 Jun, [facility] [place] [facility] [address] [id number] [place] [address]- 5774 May, [facility] [place] [facility] [address] [id number] [place] [address]- 7017 May, [facility] [place] [facility] [address] [id number] [place] [address]- 2385 May, [facility] [place] [facility] [address] [id number] [place] [address]- 5838 May, [facility] [place] [facility] [address] [id number], [place] [address]- 9111 May, [facility] [place] [facility] [address] [id number], [place] [address]- 1684 May, [facility] [place] [facility] [address] [id number] [place] [address]- 3214 May, [facility] [place] [facility] [address] [id number], [place] [address]- 7078 May, [facility] [place] [facility] [address] [id number] [place] [address]- 4069 May, [facility] [place] [facility] [address] [id number] [place] [address]- 8156 May, [facility] [place] [facility] [address] [id number] [place] [address]- 9436 Apr, [facility] [place] [facility] [address] [id number] [place] [address]- 7998 Apr, [facility] [place] [facility] [address] [id number] [place] 5607 Apr, [facility] [place] [facility] [address] [id number] [place] [address]- 0492 Apr, [facility] [place] [facility] [address] [id number] [place] [address]- 1978 Apr, [facility] [place] [facility] [address] [id number] [place] [address] Apr, [facility] [place] [facility] [address] [id number] [place] [address] Apr, [facility] [place] [facility] [address] [id number] [place] [address] Apr, [facility] [place] [facility] [address] [id number] [place] [address] Mar, [facility] [place] [facility] [address] [id number] [place] [address] Mar, [facility] [place] [facility] [address] [id number] [place] [address] Mar, [facility] [place] [facility] [address] [id number] [place] [address] Mar, [facility] [place] [facility] [address] [id number] [place] [address] Mar, [facility] [place] [facility] [address] [id number] [place] [address] Mar, [facility] [place] [facility] [address] [id number] [place] [address] Mar, [facility] [place] [facility] [address] [id number] [place] [address] Mar, [facility] [place] [facility] [address] [id number] [place] [address] Mar, [facility] [place] [facility] [address] [id number] [place] [address] Mar, [facility] [place] [facility] [address] [id number] [place] [address] Feb, [facility] [place] [facility] [address] [id number] [place] [address] Feb, [facility] [place] [facility] [address] [id number] [place] [address] Feb, [facility] [place] [facility] [address] [id number] [place] [address] 9307 Feb, [facility] [place] [facility] [address] [id number] [place] [address] 5598 Feb, [facility] [place] [facility] [address] [id number] [place] [address] 7751 Feb, [facility] [place] [facility] [address] [id number] [place] [address] 9589 30 Jan, 2014 [facility] [place] [facility] [address] [id number] [place] [address]- 3025 30 Jan, 2014 [facility] [place] [facility] [address] [id number] [place] [address]- 2513 24 Jan, 2013 [facility] [place] [facility] [address] [id number] [place] [address]- 1638 24 Jan, 2014 [facility] [place] [facility] [address] [id number] [place] [address]- 0724 19 Jan, 2013 [facility] [place] [facility] [address] [id number] [place] [address]- 4776 19 Jan, 2014 [facility] [place] [facility] [address] [id number] [place] [address] 16 Jan, 2014 [facility] [place] [facility] [address] [id number] [place] [address]- [address]696 16 Jan, 2014 [facility] [place] [facility] [address] [id number] [place] [address]- 3376 Jan, [facility] [place] [facility] [address] [id number] [place] [address]- 7696 Jan, [facility] [place] [facility] [address] [id number] [place] [address] 8140 Jan, [facility] [place] [facility] [address] [id number] [place] [address]- 2608 Jan, [facility] [place] [facility] [address] [id number] [place] [address]- 2998 Dec, [facility] [place] [facility] [address] [id number] [place] [address]- 5631 Dec, [facility] [place] [facility] [address] [id number] [place] [address]- 0740 Dec, [facility] [place] [facility] [address] [id number] [place] [address] 0096 Dec, [facility] [place] [facility] [address] [id number] [place] [address]- 2777 Dec, [facility] [place] [facility] [address] [id number] [place] [address]- 9057 Dec, [facility] [place] [facility] [address] [id number] [place] [address]- 9787 Nov, [facility] [place] [facility] [address] [id number] [place] [address]- 0255 Nov, [facility] [place] [facility] [address] [id number] [place] [address]- 1752 Nov, [facility] [place] [facility] [address] [id number] [place] [address]- 2929 Nov, [facility] [place] [facility] [address] [id number] [place] [address]- 3245 Nov, [facility] [address] [id number] [place] [address]- 1365 Nov, [facility] [place] [facility] [address] [id number] [place] [address]- 5689 Nov, [facility] [place] [facility] [address] [id number] [place] [address]- 4316 Nov, [facility] [place] [facility] [address] [id number] [place] [address]- 7151 Oct, [facility] [place] [facility] [address] [id number] [place] [address]- 9833 Oct, [facility] [place] [facility] [address] [id number] [place] [address]- 2463 Oct, [facility] [place] [facility] [address] [id number] [place] [address]- 0173 Oct, [facility] [address] [id number] [place] [address]- 8392 September, [facility] [place] [facility] [address] [id number] [place] [address]- 6107 September, [facility] [address] [id number] [place] [address] 1612 September, [facility] [place] [facility] [address] [id number] [place] [address] September, [facility] [place] [facility] [address] [id number] [place] [address]- 5292 September, [facility] [place] [facility] [address] [id number] [place] [address]- 6198 September, [facility] [place] [facility] [address] [id number] [place] [address] 7322 Aug, [facility] [place] [facility] [address] [id number] [place] [address] Aug, [facility] [place] [facility] [address] [id number] [place] [address]- 7574 Aug, [facility] [place] [facility] [address] [id number] [place] [address]- 4080 Aug, [facility] [place] [facility] [address] [id number] [place] [address]- 5604 Aug, [facility] [place] [facility] [address] [id number] [place] [address]- 2783 Aug, [facility] [place] [facility] [address] [id number] [place] [address]- 6807 Aug, [facility] [place] [facility] [address] [id number] [place] [address]- 8317 Aug, [facility] [place] [facility] [address] [id number] [place] [address]- 4001 Jul, [facility] [place] [facility] [address] [id number] [place] [address]- 6805 Jul, [facility] [place] [facility] [address] [id number] [place] [address]- 9308 Jun, [facility] [place] [facility] [address] [id number] [place] [address]- 9365 Jun, [facility] [place] [facility] [address] [id number] [place] [address]- 7270 Jun, [facility] [place] [facility] [address] [id number], [place] [address] 3926 Jun, [facility] [place] [facility] [address] [id number] [place] [address]- 6962 Jun, [facility] [place] [facility] [address] [id number] [place] [address] 5032 May, [facility] [place] [facility] [address] [id number] [place] [address]- 0785 May, [facility] [place] [facility] [address] [id number] [place] [address] 5715 May, [facility] [place] [facility] [address] [id number] [place] [address]- 2807 May, [facility] [place] [facility] [address] [id number] [place] [address]- 2969 Apr, [facility] [place] [facility] [address] [id number] [place] [address]- 4234 Apr, [facility] [place] [facility] [address] [id number] [place] [address]- 5518 Mar, [facility] [place] [facility] [address] [id number] [place] [address] 7013 Mar, [facility] [place] [facility] [address] [id number] [place] [address]- 9836 Feb, [facility] [place] [facility] [address] [id number] [place] [address]- 9711 Feb, [facility] [place] [facility] [address] [id number] [place] [address]- 4702 Feb, [facility] [place] [facility] [address] [id number] [place] [address]- 7193 Feb, [facility] [place] [facility] [address] [id number] [place] [address]- 8860 Feb, [facility] [place] [facility] [address] [id number] [place] [address] Feb, [facility] [place] [facility] [address] [id number] [place] [address]- 8585 Feb, [facility] [place] [facility] [address] [id number] [place] [address]- 9707 Jan, [facility] [place] [facility] [address] [id number] [place] [address]- 9647 Jan, [facility] [place] [facility] [address] [id number] [place] [address]- 1510 Dec, [facility] [place] [facility] [address] [id number] [place] [address]- 8088 Dec, [facility] [address] [id number] [place] [address]- 9444 Dec, [facility] [address] [id number] [place] [address]- 3023 Dec, [facility] [address] [id number] [place] [address]- 6266 Dec, [facility] [address] [id number] [place] [address]- 3429 Nov, [facility] [address] [id number] [place] [address]- 9210 Nov, [facility] [address] [id number] [place] [address]- 2366 Nov, [facility] [address] [id number] [place] [address]- 7616 Oct, [facility] [address] [id number] [place] [address]- 8670 Oct, [facility] [address] [id number] [place] [address]- 3601 Oct, [facility] [address] [id number] [place] [address]- 1003 September, [facility] [address] [id number] [place] [address]- 8760 Aug, [facility] [place] [facility] [address] [id number] [place] [address]- 7066 Aug, [facility] [place] [facility] [address] [id number] [place] [address]- 5639 Aug, [facility] [place] [facility] [address] [id number] [place] [address]- 1749 Jul, [facility] [place] [facility] [address] [id number], [place] [address]- 5669 Jul, [facility] [place] [facility] [address] [id number] [place] [address]- 1479 Jul, [facility] [address] [id number], [place] [address]- 8756 Jul, [facility] [address] [facility] [id number] [place] [address]- 7876 Jul, [facility] [address] [id number], [place] [address]- 9357 Jun, [facility] [address] [id number] [place] [address]- 9679 Jun, [facility] [address] [id number] [place] [address]- 5462 May, [facility] [place] [facility] [address] [facility] [id number], [place] [address]- 6762 May, [facility] [address] [id number], [place] [address]- 6343 Apr, [facility] [place] [facility] [address] [facility] [id number], [place] [address]- 2164 Apr, [facility] [address] [facility] [id number], [place] [address]- 9387 Mar, [facility] [place] [facility] [address] [facility] [id number], [place] [address]- 8563 Mar, [facility] [address] [facility] [id number], [place] [address]- 9246 Mar, [facility] [place] [address] [facility] [id number], [place] [address]- 6726 Mar, [facility] [address] [id number][place] [id number] Feb, [facility] [place] [facility] [address] [id number], [place] [address]- 3966 Feb, [facility] [place] [facility] [address] [facility] [id number] [place] [address]- 6027 Feb, [facility] [address] [id number] [place] [address]- 8262 Feb, [facility] [place] [facility] [address] [id number] [place] [address]- 3413 Feb, [facility] [address] [id number] [place] [address]- 2175 Feb, [facility] [place] [facility] [address] [id number] [place] [address]- 5476 Feb, [facility] [address] [id number] [place] [address]- 7058 Jan, [facility] [place] [facility] [address] [id number] [place] [address]- 1420 Jan, [facility] [address] [id number] [place] [address]- 6699 Dec, [facility] [address] [id number] [place] [address]- 1715 Dec, [facility] [place] [facility] [address] [id number] [place] [address]- 0566 Nov, [facility] [address] [id number] [place] [address]- 8771 Oct, [facility] [place] [facility] [address] [id number] [place] [address]- 9406 September, [facility] [place] [facility] [address] [id number] [place] [address]- 7507 September, [facility] [place] [facility] [address] [id number] [place] [address]- 2700 September, [facility] [place] [facility] [address] [id number] [place] [address]- 1424 Aug, [facility] [place] [facility] [address] [id number] [place] [address]- 5104 May, [facility] [address] [facility] [id number], [place] [address]- 7703 May, [facility] [address] [facility] [id number], [place] [address]- 4446 Apr, [facility] [address] [facility] [id number], [place] [address]- 0843 Apr, [facility] [address] [facility] [id number], [place] [address]- 5046 Apr, [facility] [address] [facility] [id number], [place] [address]- 6293 Apr, [facility] [address] [facility] [id number], [place] [address]- 2974 Apr, [facility] [address] [id number], [place] [address]- 8399 Mar, [facility] [address] [id number], [place] [address]- 1095 Feb, [facility] [address] [id number], [place] [address]- 9630 Feb, [facility] [address] [id number], [place] [address]- 0553 September, [facility] [address] [id number], [place] [address]- 0953 Mar, [facility] [address] [id number], [place] [address]- 8229 Feb, [facility] [address] [facility] [id number], [place] [address]- 3394 Feb, [facility] [address] [id number] [address]859 Feb, IMMUNIZATIONS No Known Immunizations SOCIAL HISTORY Never Assessed REASON FOR VISIT Medication Side Effect PLAN OF CARE VITAL SIGNS MEDICATIONS Unknown [...] Hospitalization History foot fracture Hospitalization History Via [facility]- Back Pain 03/24/2017
--- OUTSIDE RECORDS SUMMARY | 2018-04-10 17:55 | XMS REPORT ---
Author Author FRANKIE ROCHE Organization [facility] Address [address] [place] [address] Care Team Providers Care Tube Handler Name Role Phone FRANKIE ROCHE Unavailable PROBLEMS Type Condition ICD9-CM Code FFG68-GD Code Onset Dates Condition Status SNOMED Code Problem Color blindness H53.50 Active 575977157 Problem Presbyopia of both eyes H52.4 Active 51673728 Problem Nuclear senile cataract of both eyes H25.13 Active 904267387 Problem Astigmatism of both eyes, unspecified type H52.203 Active 40267394 Problem Essential hypertension I10 Active 58392381 Problem Other chronic pain G89.29 Active 72980217 Problem Hypermetropia of both eyes H52.03 Active 81848518 Problem Alzheimer's disease, unspecified G30.9 Active 560112366 Problem 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 Active 004479513 Problem 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 Active 084079529 Problem Gait instability R26.81 Active 80775175 Problem 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 Active 930016130 Problem Arthritis, 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 Active 896008391 Problem PVD (peripheral vascular disease) I73.9 Active 613366597 Problem 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 Active 600970927 Problem Hydrocele, unspecified hydrocele type N43.3 Active 10171182 Problem Other acute pulmonary embolism without acute cor pulmonale I26.99 Active 201231592 Problem At high risk for falls Z91.81 Active [id number] Problem Asymptomatic microscopic hematuria R31.21 Active 910329956 Problem Major depressive disorder, single episode, mild F32.0 Active 34457949 Problem Chronic fatigue R53.82 Active 79225237 Problem Benign non-nodular prostatic hyperplasia with lower urinary tract symptoms N40.1 Active 774684076 Problem Transient cerebral ischemia, unspecified transient cerebral ischemia type G45.9 Active 693125019 Problem Renal cyst, left Q61.00 Active 72240237 Problem 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 Active 71810601 Problem Anxiety F41.9 Active 67096834 Problem Overactive bladder N32.81 Active 407517671 Problem Primary insomnia F51.01 Active 569754812 Problem Mixed hyperlipidemia E78.2 Active 059316635 ALLERGIES No Information ENCOUNTERS Encounter Location Date Diagnosis [place] [id number] [place] [address] 42633- 6419 07 Jan, 2018 Flank pain R10.9 [facility] [address] 47007- 1736 Jan, [place] [address] 37635- 3711 Dec, [place] [id number] [place] [address] 85411- 1228 Dec, [place] [address] 30510- 4472 Dec, 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 and 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 [place] [address] 59811- 2571 Dec, Left flank pain R10.9 and Arthritis, 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 [place] [id number] [place] [address] 29338- 6070 Dec, [facility] [address] 34009- 4012 Nov, Essential hypertension I10 and Mixed hyperlipidemia E78.2 [place] [id number] [place] [address] 53187- 5348 Oct, Edema leg R60.0 [facility] [id number] [place] [address] 53636- 0691 September, [facility] [id number] [place] [address] 37964- 5654 September, 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 and 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 [place] [id number] [place] [address] 33074- 4510 September, PVD (peripheral vascular disease) I73.9 ; Major depressive disorder, single episode, mild F32.0 ; Chronic fatigue R53.82 ; Weight gain R63.5 and Arthralgia, unspecified joint M25.50 [place] [address] 62733- 7482 Aug, Acute low back pain, unspecified back pain laterality, with sciatica presence unspecified M54.5 [place] [address] 10422- 0254 Aug, Acute low back pain, unspecified back pain laterality, with sciatica presence unspecified M54.5 [place] [address] 03508- 0132 Aug, Pain R52 [place] [address] 71277- 1344 Jul, [place] [address] 40442- 7678 Jun, [place] [id number] [place] [address] 22518- 5632 07 Jun, 2017 Medicare annual wellness visit, initial Z00.00 ; Mixed hyperlipidemia E78.2 ; Essential hypertension I10 ; Anxiety F41.9 ; 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 ; 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 ; Overactive bladder N32.81 ; Primary insomnia F51.01 ; At high risk for falls Z91.81 and Encounter for immunization Z23 [place] [id number] [place] [address] 55745- 5111 May, [place] [address] 03946- 8910 May, Essential hypertension I10 and Transient cerebral ischemia, unspecified transient cerebral ischemia type G45.[address] [facility] [address] [place] [address] [id number] May, Dental examination Z01.20 and Dental caries K02.9 [facility] [id number] [place] [address] 12840- 0733 May, [facility] [address] 63089- 5427 May, [facility] [address] 28095- 8603 May, 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 [place] [address] 71203- 4732 Apr, [place] [address] 13927- 9415 Apr, 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 and 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 [place] [address] 64821- 1520 Mar, 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 [place] [address] 54413- 6974 Mar, Mixed hyperlipidemia E78.2 ; Essential hypertension I10 ; Asymptomatic microscopic hematuria R31.21 and Renal cyst, left Q61.00 [place] [id number] [place] [address] 76151- 3416 Mar, [facility] [id number] [place] [address] 60260- 7615 Feb, Encounter for immunization Z23 [place] [address] 45752- 7010 Feb, [place] [address] 19349- 7634 Feb, [facility] [address] 88609 -1430 Feb, ANUG (acute necrotizing ulcerative gingivitis) A69.1 [facility] [id number] [place] [address] 57783- 9733 Feb, [facility] [id number] [place] [address] 70936- 2445 Feb, 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 [facility] [id number] [place] [address] 02098- 6994 Feb, 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 and 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 [facility] [id number] [place] [address] 55155- 9385 Jan, 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 [facility] [id number] [place] [address] 82357- 3299 Jan, Gait instability R26.81 [facility] [address] [id number] [place] [address] Jan [facility] [address] [id number] [place] [address] Dec [facility] [address] [place] [address] 91503- 6396 Dec, [facility] [address] [place] [address] 69900- 7952 Dec, [facility] [id number] [place] [address] 74675- 6841 Dec, Essential hypertension I10 ; Transient cerebral ischemia, unspecified transient cerebral ischemia type G45.9 and Anxiety F41.9 [facility] [id number] [place] [address] 49968- 8402 Dec, Gait instability R26.81 [facility] [id number] [place] [address] 49431- 2585 Dec, [facility] [id number] [place] [address] 84020- 8480 Nov, 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 and 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 [facility] [id number] [place] [address] 42390- 6035 Nov, [facility] [address] [place] [address] 90906- 6963 Nov, Gait instability R26.81 [facility] [id number] [place] [address] 20620- 4861 Nov, Anxiety F41.9 [facility] [id number] [place] [address] 69964- 8198 Nov, [facility] [id number] [place] [address] 32645- 9870 Nov, [facility] [id number] [place] [address] 37667- 7070 Oct, Gait instability R26.81 [facility] [id number] [place] [address] 91693- 9309 Oct, Anxiety F41.9 [facility] [id number] [place] [address] 21864- 2180 Oct, Gait instability R26.81 [facility] [address] [address]- 6090 Oct, Gait instability R26.81 [facility] [address] [place] [address] 90775- 8467 Oct, [facility] [address] [place] [address] 99604- 6793 Oct, Anxiety F41.9 ; Chronic 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 use Z79.899 ; Encounter for immunization Z23 and Transient cerebral ischemia, unspecified transient cerebral ischemia type G45.9 [facility] [address] [address]- 0388 September, [facility] [id number] [address]- 4972 September, Gait instability R26.81 [facility] [address] [facility] [id number] [place] [address]- 1713 September, [facility] [address] [facility] [id number] [place] [address]- 9994 September, [facility] [id number] [address]- 1054 September, [facility] [address] [facility] [id number] [place] [address]- 5403 September, 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 and 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 [facility] [id number] [address]- 4274 September, [facility] [address] [address]- 8060 September, [facility] [address] [facility] [id number] [place] [address]- 3225 September, [facility] [id number] [address]- 0956 September, 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 [facility] [address] [address]- 8539 Aug, 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 ; 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 ; Other acute pulmonary embolism without acute cor pulmonale I26.99 and Cough R05 [facility] [address] [facility] [id number] [place] [address]- 2642 Aug, [facility] [id number] [address]- 9419 Aug, Gait instability R26.81 [facility] [id number] [address]- 1584 Aug, 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 and 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 [place] [id number] [place] [address] 73271- 7043 Aug, [place] [id number] [place] [address] 4108 Aug, 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 [place] [id number] [place] [address] 41829- 7013 Jul, 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 [place] [id number] [place] [address] 78091- 0174 Jul, [place] [address] 71829- 3264 Jul, 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 [place] [address] [place] [address] 11379- 7681 Jul, Anxiety F41.9 ; 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 and Transient cerebral ischemia, unspecified transient cerebral ischemia type G45.9 [place] [id number] [place] [address] 51360- 8786 Jun, Essential hypertension I10 [place] [id number] [place] [address] 45418- 6053 Jun, [place] [id number] [place] [address] 65690- 7316 Jun, [place] [id number] [place] [address] 13196- 0065 Jun, [place] [id number] [place] [address] 58848- 6642 Jun, Essential hypertension I10 ; Benign non-nodular prostatic hyperplasia with lower urinary tract symptoms N40.1 ; Anxiety F41.9 ; Pain in right knee M25.561 ; Pain in left knee M25.562 and Other chronic pain G89.29 [place] [address] [place] [address] 02171- 0388 May, [facility] [id number] [place] [address] 19515- 5467 May, [facility] [id number] [place] [address] 91418- 7562 May, [facility] [id number] [place] [address] 88724- 0047 Apr, [facility] [id number] [place] [address] 58272- 4556 Mar, [facility] [address] 56098- 0765 Mar, Mixed hyperlipidemia E78.2 and Essential hypertension I10 [place] [id number] [place] [address] 26405- 2902 Feb, [facility] [id number] [place] [address] 74697- 0723 Feb, Ingrown nail L60.0 and Onychomycosis B35.1 [place] [address] [place] [address] 73523- 3168 Feb, Paronychia, left L03.012 [place] [address] [place] [address] 83933- 5980 Jan, [facility] [id number] [place] [address] 90529- 7199 Jan, Cramps of right lower extremity R25.2 and Mixed hyperlipidemia E78.2 [place] [address] [place] [address] 88774- 4585 Jan, Cramps of right lower extremity R25.2 ; Essential hypertension I10 ; Mixed hyperlipidemia E78.2 ; Chronic 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 use Z79.899 and Claudication I73.9 [place] [address] [place] [address] 13322- 5641 Jan, Right leg pain M79.604 [facility] [address] [address]- 4815 Dec, [facility] [address] [place] [address] 987958- 4792 Nov, [facility] [id number] [place] [address] 97395- 4786 Nov, [facility] [id number] [place] [address] 93861- 8133 Nov, [facility] [id number] [place] [address] 83775- 1960 Nov, Dermatofibroma D23.9 [facility] [id number] [place] [address] 17248- 5575 Nov, [facility] [id number] [place] [address] 56161- 7563 Oct, [facility] [id number] [place] [address] 73151- 5057 Oct, [facility] [id number] [place] [address] 67643- 7027 September, Benign non-nodular prostatic hyperplasia with lower urinary tract symptoms N40.1 ; Essential hypertension I10 ; Overactive bladder N32.81 and Fatigue, unspecified type R53.83 [facility] [address] [address]- 8172 September, [facility] [id number] 4910 September, [facility] [id number] [place] [address] 436057- 8796 Aug, [facility] [address] 2576 Jul, [facility] [id number] [place] [address] 05427- 5253 Jul, Pelvic pain R10.2 ; Jock itch B35.6 ; Essential hypertension I10 and Hydrocele, unspecified hydrocele type N43.3 [facility] [id number] [place] [address] 79109- 2161 Jun, [facility] [id number] [place] [address] 54112- 4121 Jun, [facility] [address] 47968- 5670 Jun, Benign non-nodular prostatic hyperplasia with lower urinary tract symptoms N40.1 [facility] [address] 06895- 0402 Jun, Benign non-nodular prostatic hyperplasia with lower urinary tract symptoms N40.1 [facility] [id number] [place] [address] 98778- 7743 Jun, [facility] [address] 15990- 0891 May, [facility] [id number] [place] [address] 68882- 5033 Apr, [facility] [id number] [place] [address] 22212- 5896 Apr, [facility] [id number] [place] [address] 11221- 3131 Apr, Other acute pulmonary embolism without acute cor pulmonale I26.99 ; Anxiety F41.9 ; 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 and 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 [facility] [id number] [place] [address] 22704- 5225 Apr, [facility] [id number] [place] [address] 40426- 2850 Apr, [facility] [id number] [place] [address] 10535- 5834 Mar, [facility] [id number] [place] [address] 50024- 9403 Mar, [facility] [id number] [place] [address] 68340- 8213 Feb, Cough R05 [facility] [id number] [place] [address] 96871- 1025 Feb, [facility] [address] 91667- 2835 Feb, Encounter for immunization Z23 [facility] [address] 60833- 7162 Feb, Other and unspecified hyperlipidemia 272.4 [facility] [id number] [place] [address] 61477- 6189 Jan, [facility] [address] 83181- 9141 Jan, TIA (transient ischemic attack) 435.9 [facility] [id number] [place] [address] 76676- 9755 Dec, [facility] [id number] [place] [address] 65314- 6857 Dec, [facility] [id number] [place] [address] 24710- 3687 Dec, [facility] [id number] [place] [address] 97722- 6036 Nov, [facility] [id number] [place] [address] 01250- 7880 Oct, Chronic cough 786.2 [facility] [id number] [place] [address] 89462- 3873 Oct, [facility] [id number] [place] [address] 46184- 0419 Oct, [facility] [address] 35562- 5342 Oct, [facility] [address] [address]- 2156 Oct, [facility] [address] [address]- 3202 Oct, Chronic cough 786.2 [facility] [address] 4352 Oct, Cough 786.2 ; Hypertension 401.9 ; BPH (benign prostatic hyperplasia) 600.00 ; Other and unspecified hyperlipidemia 272.4 and Hydrocele 603.9 [facility] [id number] [place] [address] 67076- 0290 Oct, [facility] [address] [address]- 7823 September, [facility] [address] [address]- 3873 Aug, [facility] [address] [address]- 4711 Aug, [facility] [address] [address]- 5326 Jul, [facility] [address] [address]- 1320 Jul, [facility] [address] [address]- 6465 Jul, [facility] [address] [address]- 1847 Jul, [facility] [address] 4677 Jul, [facility] [address]- 2658 Jun, [facility] [id number] 8765 Jun, [facility] [place] [facility] [address] [id number] [place] [address]- 5751 Jun, [facility] [place] [facility] [address] [id number] [place] [address]- 1075 Jun, [facility] [place] [facility] [address] [id number] [place] [address]- 2520 Jun, 2014 [facility] [place] [facility] [address] [id number] [place] [address]- 5935 Jun, [facility] [place] [facility] [address] [id number] [place] [address]- 9508 Jun, [facility] [place] [facility] [address] [id number] [place] [address]- 1303 Jun, [facility] [place] [facility] [address] [id number] [place] [address]- 5167 May, [facility] [place] [facility] [address] [id number] [place] [address]- 9817 May, [facility] [place] [facility] [address] [id number] [place] [address]- 8730 May, [facility] [place] [facility] [address] [id number] [place] [address]- 1390 May, [facility] [place] [facility] [address] [id number] [place] [address]- 4848 May, [facility] [place] [facility] [address] [id number] [place] [address]- 4635 May, [facility] [place] [facility] [address] [id number] [place] [address]- 9666 May, [facility] [place] [facility] [address] [id number] [place] [address]- 3171 May, [facility] [place] [facility] [address] [id number] [place] [address]- 2078 May, [facility] [place] [facility] [address] [id number] [place] [address]- 7716 May, [facility] [place] [facility] [address] [id number] [place] [address]- 1610 Apr, [facility] [place] [facility] [address] [id number] [place] [address]- 6303 Apr, [facility] [place] [facility] [address] [id number] [place] 9643 Apr, [facility] [place] [facility] [address] [id number] [place] [address]- 0033 Apr, [facility] [place] [facility] [address] [id number] [place] [address] Apr, [facility] [place] [facility] [address] [id number] [place] [address] Apr, [facility] [place] [facility] [address] [id number] [place] [address] Apr, [facility] [place] [facility] [address] [id number] [place] [address] Apr, [facility] [place] [facility] [address] [id number] [place] [address] Mar, [facility] [place] [facility] [address] [id number] [place] [address] Mar, [facility] [place] [facility] [address] [id number] [place] [address] Mar, [facility] [place] [facility] [address] [id number] [place] [address] Mar, [facility] [place] [facility] [address] [id number] [place] [address] Mar, [facility] [place] [facility] [address] [id number] [place] [address] Mar, [facility] [place] [facility] [address] [id number] [place] [address] Mar, [facility] [place] [facility] [address] [id number] [place] [address] Mar, [facility] [place] [facility] [address] [id number] [place] [address] Mar, [facility] [place] [facility] [address] [id number] [place] [address] Mar, [facility] [place] [facility] [address] [id number] [place] [address] Feb, [facility] [place] [facility] [address] [id number] [place] [address] Feb, [facility] [place] [facility] [address] [id number] [place] [address] Feb, [facility] [place] [facility] [address] [id number] [place] [address] Feb, [facility] [place] [facility] [address] [address] [id number] [place] [address] Feb, [facility] [place] [facility] [address] [id number] [place] [address] Feb, [facility] [place] [facility] [address] [id number] [place] [address] 30 Jan, 2014 [facility] [place] [facility] [address] [id number] [place] [address]268 30 Jan, 2014 [facility] [place] [facility] [address] [id number] [place] [address] 9299 24 Jan, 2013 [facility] [place] [facility] [address] [id number] [place] [address] 0180 24 Jan, 2014 [facility] [place] [facility] [address] [id number] [place] [address]- 8626 19 Jan, 2013 [facility] [place] [facility] [address] [id number] [place] [address] 9348 19 Jan, 2014 [facility] [place] [facility] [address] [id number] [place] [address]- 4255 16 Jan, 2014 [facility] [place] [facility] [address] [id number] [place] [address] 16 Jan, 2014 [facility] [place] [facility] [address] [id number] [place] [address] 2466 Jan, [facility] [place] [facility] [address] [id number] [place] [address] 1136 Jan, [facility] [place] [facility] [address] [id number] [place] [address]- 0835 Jan, [facility] [place] [facility] [address] [id number] [place] [address] 9104 Jan, [facility] [place] [facility] [address] [id number] [place] [address]- 0638 Dec, [facility] [place] [facility] [address] [id number] [place] [address]- 0969 Dec, [facility] [place] [facility] [address] [id number] [place] [address]- 6382 Dec, [facility] [place] [facility] [address] [id number] [place] [address]- 9601 Dec, [facility] [place] [facility] [address] [id number] [place] [address]- 0794 Dec, [facility] [place] [facility] [address] [id number] [place] [address]- 7433 Dec, [facility] [place] [facility] [address] [id number] [place] [address]- 4098 Nov, [facility] [place] [facility] [address] [id number] [place] [address]- 3544 Nov, [facility] [place] [facility] [address] [id number] [place] [address]- 6187 Nov, [facility] [place] [facility] [address] [id number] [place] [address]- 5844 Nov, [facility] [place] [facility] [address] [id number] [place] [address] 7626 Nov, [facility] [address] [id number] [place] [address]- 4190 Nov, [facility] [place] [facility] [address] [id number] [place] [address] 4336 Nov, [facility] [place] [facility] [address] [id number] [place] [address]- 6806 Nov, [facility] [place] [facility] [address] [id number] [place] [address] 0554 Oct, [facility] [place] [facility] [address] [id number] [place] [address]- 3029 Oct, [facility] [place] [facility] [address] [id number] [place] [address]- 5634 Oct, [facility] [place] [facility] [address] [id number] [place] [address]- 5746 Oct, [facility] [address] [id number] [place] [address] 3629 September, [facility] [place] [facility] [address] [id number] [place] [address]- 6373 September, [facility] [address] [id number] [place] [address]- 9926 September, [facility] [place] [facility] [address] [id number] [place] [address]- 0724 September, [facility] [place] [facility] [address] [id number] [place] [address] 6722 September, [facility] [place] [facility] [address] [id number] [place] [address]- 0900 September, [facility] [place] [facility] [address] [id number] [place] [address]- 8539 Aug, [facility] [place] [facility] [address] [id number] [place] [address] Aug, [facility] [place] [facility] [address] [id number] [place] [address]- 6196 Aug, [facility] [place] [facility] [address] [id number] [place] [address]- 8318 Aug, [facility] [place] [facility] [address] [id number] [place] [address]- 0638 Aug, [facility] [place] [facility] [address] [id number] [place] [address]- 7983 Aug, [facility] [place] [facility] [address] [id number] [place] [address]- 3262 Aug, [facility] [place] [facility] [address] [id number] [place] [address]- 9282 Aug, [facility] [place] [facility] [address] [id number] [place] [address]- 6076 Jul, [facility] [place] [facility] [address] [id number] [place] [address]- 9101 Jul, [facility] [place] [facility] [address] [id number] [place] [address]- 8506 Jun, [facility] [place] [facility] [address] [id number] [place] [address]- 7596 Jun, [facility] [place] [facility] [address] [id number] [place] [address]- 5446 Jun, [facility] [place] [facility] [address] [id number] [place] [address] 8472 Jun, [facility] [place] [facility] [address] [id number] [place] [address]- 4929 Jun, [facility] [place] [facility] [address] [id number] [place] [address]- 9474 May, [facility] [place] [facility] [address] [id number] [place] [address]- 6757 May, [facility] [place] [facility] [address] [id number] [place] [address]- 4255 May, [facility] [place] [facility] [address] [id number] [place] [address]- 9893 May, [facility] [place] [facility] [address] [id number] [place] [address]- 0424 Apr, [facility] [place] [facility] [address] [id number] [place] [address]- 8253 Apr, [facility] [place] [facility] [address] [id number] [place] [address]- 9948 Mar, [facility] [place] [facility] [address] [id number] [place] [address]- 4752 Mar, [facility] [place] [facility] [address] [id number] [place] [address]- 8123 Feb, [facility] [place] [facility] [address] [id number] [place] [address]- 6203 Feb, [facility] [place] [facility] [address] [id number] [place] [address]- 7361 Feb, [facility] [place] [facility] [address] [id number] [place] [address]- 0069 Feb, [facility] [place] [facility] [address] [id number] [place] [address]- 6124 Feb, [facility] [place] [facility] [address] [id number] [place] [address] Feb, [facility] [place] [facility] [address] [id number] [place] [address]- 8726 Feb, [facility] [place] [facility] [address] [id number] [place] [address]- 8404 Jan, [facility] [place] [facility] [address] [id number] [place] [address]- 2001 Jan, [facility] [place] [facility] [address] [id number] [place] [address]- 7553 Dec, [facility] [place] [facility] [address] [id number] [place] [address]- 7372 Dec, [facility] [address] [id number] [place] [address]- 5207 Dec, [facility] [address] [id number] [place] [address]- 5676 Dec, [facility] [address] [id number] [place] [address]- 5626 Dec, [facility] [address] [id number] [place] [address]- 7535 Nov, [facility] [address] [id number] [place] [address]- 6336 Nov, [facility] [address] [id number] [place] [address]- 0498 Nov, [facility] [address] [id number] [place] [address]- 3358 Oct, [facility] [address] [id number] [place] [address]- 5976 Oct, [facility] [address] [id number] [place] [address]- 4148 Oct, [facility] [address] [id number] [place] [address]- 6146 September, [facility] [address] [id number] [place] [address]- 6511 Aug, [facility] [place] [facility] [address] [id number] [place] [address]- 8702 Aug, [facility] [place] [facility] [address] [id number] [place] [address]- 8841 Aug, [facility] [place] [facility] [address] [id number] [place] [address]- 3841 Jul, [facility] [place] [facility] [address] [id number] [place] [address]- 8382 Jul, [facility] [place] [facility] [address] [id number] [place] [address]- 1524 Jul, [facility] [address] [id number] [place] [address]- 5146 Jul, [facility] [address] [facility] [id number] [place] [address]- 2006 Jul, [facility] [address] [id number] [place] [address]- 3990 Jun, [facility] [address] [id number] [place] [address]- 8616 Jun, [facility] [address] [id number] [place] [address]- 9969 May, [facility] [place] [facility] [address] [facility] [id number] [place] [address]- 0074 May, [facility] [address] [id number] [place] [address]- 0775 Apr, [facility] [place] [facility] [address] [facility] [id number] [place] [address]- 2834 Apr, [facility] [address] [facility] [id number] [place] [address]- 3756 Mar, [facility] [place] [facility] [address] [facility] [id number] [place] [address]- 8054 Mar, [facility] [address] [facility] [id number] [place] [address]- 7616 Mar, [facility] [place] [facility] [address] [facility] [id number] [place] [address]- 9096 Mar, [facility] [address] [id number] [place] [id number] Feb, [facility] [place] [facility] [address] [id number] [place] [address]- 5506 Feb, [facility] [place] [facility] [address] [facility] [id number] [place] [address]- 2998 Feb, [facility] [address] [id number] [place] [address]- 9819 Feb, [facility] [place] [facility] [address] [id number] [place] [address]- 7787 Feb, [facility] [address] [id number] [place] [address]- 6017 Feb, [facility] [place] [facility] [address] [id number] [place] [address]- 6642 Feb, [facility] [address] [id number] [place] [address]- 2600 Jan, [facility] [place] [facility] [address] [id number] [place] [address]- 4335 Jan, [facility] [address] [id number] [place] [address]- 0650 Dec, [facility] [address] [id number] [place] [address]- 0446 Dec, [facility] [place] [facility] [address] [id number] [place] [address]- 3363 Nov, [facility] [address] [id number] [place] [address]- 5969 Oct, [facility] [place] [facility] [address] [id number] [place] [address]- 4136 September, [facility] [place] [facility] [address] [id number] [place] [address]- 6218 September, [facility] [place] [facility] [address] [id number] [place] [address]- 0217 September, [facility] [place] [facility] [address] [id number] [place] [address]- 9350 Aug, [facility] [place] [facility] [address] [id number] [place] [address]- 3783 May, [facility] [address] [facility] [id number] [place] [address]- 5542 May, [facility] [address] [facility] [id number] [place] [address]- 3853 Apr, [facility] [address] [facility] [id number] [place] [address]- 6284 Apr, [facility] [address] [facility] [id number] [place] [address]18 Apr, [facility] [address] [facility] [id number] [place] [address]- 9049 Apr, [facility] [address] [facility] [id number] [place] [address]- 8919 Apr, [facility] [address] [id number] [place] [address]- 4051 Mar, [facility] [address] [id number] [place] [address]- 5078 Feb, [facility] [address] [facility] [id number] [place] [address]- 5283 Feb, [facility] [address] [id number] [place] [address]- 4786 September, [facility] [address] [id number] [place] [address]- 9705 Mar, [facility] [address] [id number] [place] [address]- 5643 Feb, [facility] [address] [facility] [id number] [place] [address]- 6994 Feb, [facility] [address] [id number] [place] [address]- 6855 Feb, IMMUNIZATIONS No Known Immunizations SOCIAL HISTORY Never Assessed REASON FOR VISIT x-ray/lab results PLAN OF CARE VITAL SIGNS MEDICATIONS [...] Hospitalization History Via [facility]- Back Pain 03/24/2017
--- OUTSIDE RECORDS SUMMARY | 2018-04-10 17:56 | XMS REPORT ---
Author Author CONNER ROCHE Organization [facility] Address [address] [place] [address] Care Team Providers Care Assistant Operations Manager Name Role Phone CONNER ROCHE Unavailable PROBLEMS Type Condition ICD9-CM Code [id number] Code Onset Dates Condition Status SNOMED Code Problem Color blindness H53.50 Active 467660213 Problem Presbyopia of both eyes H52.4 Active 76314004 Problem Nuclear senile cataract of both eyes H25.13 Active 905736208 Problem Astigmatism of both eyes, unspecified type H52.203 Active 18334647 Problem Essential hypertension I10 Active 68553667 Problem Other chronic pain G89.29 Active 89582557 Problem Hypermetropia of both eyes H52.03 Active 00644231 Problem Alzheimer's disease, unspecified G30.9 Active 031052857 Problem 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 Active 604542267 Problem 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 Active 229085702 Problem Gait instability R26.81 Active 18623720 Problem 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 Active 994962575 Problem Arthritis, 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 Active 695088099 Problem PVD (peripheral vascular disease) I73.9 Active 602640692 Problem 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 Active 271996655 Problem Hydrocele, unspecified hydrocele type N43.3 Active 50772970 Problem Other acute pulmonary embolism without acute cor pulmonale I26.99 Active 243439962 Problem At high risk for falls Z91.81 Active [id number] Problem Asymptomatic microscopic hematuria R31.21 Active 694472295 Problem Major depressive disorder, single episode, mild F32.0 Active 25363283 Problem Chronic fatigue R53.82 Active 86266856 Problem Benign non-nodular prostatic hyperplasia with lower urinary tract symptoms N40.1 Active 614294320 Problem Transient cerebral ischemia, unspecified transient cerebral ischemia type G45.9 Active 605329003 Problem Renal cyst, left Q61.00 Active 84518577 Problem 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 Active 87212627 Problem Anxiety F41.9 Active 88293919 Problem Overactive bladder N32.81 Active 960861611 Problem Primary insomnia F51.01 Active 243921537 Problem Mixed hyperlipidemia E78.2 Active 473349919 ALLERGIES Substance Reaction Event Type Date Status Vicodin Unknown Drug Allergy Dec, Active Lovastatin had a reaction to a statin but is unsure of which statin it was Drug Allergy Dec, Active Codeine Sulfate Unknown Drug Allergy Dec, Active ENCOUNTERS Encounter Location Date Diagnosis [facility] [id number] [place] [address] 59539- 8583 Jan, Flank pain R10.9 [facility] [address] 06362- 6513 Jan, [facility] [address] 23004- 7253 Dec, [facility] [address] 65926- 6077 Dec, [facility] [address] 14229- 9552 Dec, 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 and 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 [facility] [id number] [place] [address] 02018- 2884 Dec, Left flank pain R10.9 and Arthritis, 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 [facility] [id number] [place] [address] 83598- 2287 Dec, [facility] [address] 22657- 3833 Nov, Essential hypertension I10 and Mixed hyperlipidemia E78.2 [facility] [id number] [place] [address] 44870- 6348 Oct, Edema leg R60.0 [facility] [address] 26941- 7514 September, [facility] [id number] [place] [address] 46989- 0127 September, 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 and 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 [facility] [id number] [place] [address] 28733- 8382 September, PVD (peripheral vascular disease) I73.9 ; Major depressive disorder, single episode, mild F32.0 ; Chronic fatigue R53.82 ; Weight gain R63.5 and Arthralgia, unspecified joint M25.50 [facility] [id number] [place] [address] 86909- 6281 Aug, Acute low back pain, unspecified back pain laterality, with sciatica presence unspecified M54.5 [facility] [id number] [place] [address] 28627- 7253 Aug, Acute low back pain, unspecified back pain laterality, with sciatica presence unspecified M54.5 [facility] [id number] [place] [address] 93984- 8059 Aug, Pain R52 [facility] [id number] [place] [address] 79868- 3247 Jul, [facility] [id number] [place] [address] 07082- 1795 Jun, [facility] [id number] [place] [address] 61428- 5505 Jun, Medicare annual wellness visit, initial Z00.00 ; Mixed hyperlipidemia E78.2 ; Essential hypertension I10 ; Anxiety F41.9 ; 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 ; 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 ; Overactive bladder N32.81 ; Primary insomnia F51.01 ; At high risk for falls Z91.81 and Encounter for immunization Z23 [facility] [id number] [place] [address] 39018- 1310 May, [facility] [address], [place] [address] 0561 May, Essential hypertension I10 and Transient cerebral ischemia, unspecified transient cerebral ischemia type G45.9 [facility] [address] [address] May, Dental examination Z01.20 and Dental caries K02.9 [facility] [id number] [place] [address] 46317- 4516 May, [facility] [id number] [place] [address] 58109- 5145 May, [facility] [id number] [place] [address] 14750- 6605 May, 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 [facility] [id number] [place] [address] 95254- 7074 Apr, [facility] [id number] [place] [address] 24892- 9889 Apr, 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 and 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 [facility] [id number] [place] [address] 25543- 2608 Mar, 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 [facility] [id number] [place] [address] 94972- 9512 Mar, Mixed hyperlipidemia E78.2 ; Essential hypertension I10 ; Asymptomatic microscopic hematuria R31.21 and Renal cyst, left Q61.00 [facility] [address] [place] [address] 55699- 7229 Mar, [facility] [id number] [place] [address] 84378- 8867 Feb, Encounter for immunization Z23 [facility] [id number] [place] [address] 16223- 1865 Feb, [facility] [address], [place] [address]- 8518 Feb, [facility] [id number] [place] [address] 17876 -7358 Feb, ANUG (acute necrotizing ulcerative gingivitis) A69.1 [facility] [address] [place] [address] 71881- 5664 Feb, [facility] [id number] [place] [address] 24280- 0414 Feb, 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 [facility] [id number] [place] [address] 98460- 7609 Feb, 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 and 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 [facility] [id number] [place] [address] 00603- 0092 Jan, 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 [facility] [id number] [place] [address] 35206- 4369 Jan, Gait instability R26.81 [facility] [id number] [address] Jan [facility] [id number] [address] [facility] [address] [address] 9042 Dec, [facility] [address] [address] 2797 Dec, [facility] [id number] [place] [address] 49340- 5457 Dec, Essential hypertension I10 ; Transient cerebral ischemia, unspecified transient cerebral ischemia type G45.[address] [facility] [address], [place] [address]- 5307 Dec, Gait instability R26.81 [facility] [address] [place] [address] 60617- 7120 Dec, [facility] [id number] [place] [address] 25497- 0580 Nov, 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 and 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 [facility] [id number] [place] [address] 30098- 8924 Nov, [facility] [id number] [place] [address] 28855- 6737 Nov, Gait instability R26.81 [facility] [id number] [place] [address] 38869- 0891 Nov, Anxiety F41.9 [facility] [id number] [place] [address] 07954- 2159 Nov, [facility] [id number] [place] [address] 43082- 9256 Nov, [facility] [id number] [place] [address] 40239- 4267 Oct, Gait instability R26.81 [facility] [id number] [place] [address] 28709- 3769 Oct, Anxiety F41.9 [facility] [id number] [place] [address] 98897- 0529 Oct, Gait instability R26.81 [facility] [id number] [place] [address] 43906- 3604 Oct, Gait instability R26.81 [facility] [id number] [place] [address] 00633- 5579 Oct, [facility] [id number] [place] [address] 94156- 9290 Oct, Anxiety F41.9 ; Chronic 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 use Z79.899 ; Encounter for immunization Z23 and Transient cerebral ischemia, unspecified transient cerebral ischemia type G45.9 [facility] [address], [place] [address]- 0723 September, [facility] [address], [place] [address]- 5834 September, Gait instability R26.81 [facility] [address], [place] [address]- 5322 September, [facility] [address] [address]- 6050 September, [facility] [id number], [place] [address]- 6657 September, [facility] [id number] [address]- 8562 September, 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 and 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 [facility] [address], [place] [address]- 7917 September, [facility] [id number], [place] [address]- 5401 September, [facility] [address], [place] [address]- 5586 September, [facility] [address], [place] [address]- 2396 September, 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 [facility] [id number], [place] [address]- 3577 Aug, 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 ; 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 ; Other acute pulmonary embolism without acute cor pulmonale I26.[address] [facility] [id number], [place] [address]- 5246 Aug, [facility] [address], [place] [address]- 2719 Aug, Gait instability R26.81 [facility] [address], [place] [address]- 1988 Aug, 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 and 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 [facility] [address], [place] [address]- 6310 Aug, [facility] [id number] [place] [address] 96937- 8037 Aug, 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 [facility] [id number] [place] [address] 86431- 2011 Jul, 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 [facility] [id number] [place] [address] 32550- 8818 Jul, [facility] [id number] [place] [address] 55993- 3917 Jul, 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 [facility] [id number] [place] [address] 49396- 4603 Jul, Anxiety F41.9 ; 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 and Transient cerebral ischemia, unspecified transient cerebral ischemia type G45.9 [facility] [address], [place] [address]- 2600 Jun, Essential hypertension I10 [facility] [address], [place] [address]- 5247 Jun, [facility] [address], [place] [address]- 1502 Jun, [facility] [address], [place] [address]- 7862 Jun, [facility] [address], [place] [address]- 1585 Jun, Essential hypertension I10 ; Benign non-nodular prostatic hyperplasia with lower urinary tract symptoms N40.1 ; Anxiety F41.9 ; Pain in right knee M25.561 ; Pain in left knee M25.562 and Other chronic pain G89.29 [facility] [id number] [place] [address] 84972- 4669 May, [facility] [id number] [place] [address] 42925- 0870 May, [facility] [address] 38986- 6042 May, [facility] [address] 31133- 9174 Apr, [facility] [address] 56096- 8069 Mar, [facility] [address] 94700- 8925 Mar, Mixed hyperlipidemia E78.2 and Essential hypertension I10 [facility] [id number] [place] [address] 37747- 6397 Feb, [facility] [address] 21199- 0673 Feb, Ingrown nail L60.0 and Onychomycosis B35.1 [facility] [id number] [place] [address] 91652- 2278 Feb, Paronychia, left L03.012 [facility] [id number] [place] [address] 81712- 3381 Jan, [facility] [id number] [place] [address] 46299- 4649 Jan, Cramps of right lower extremity R25.2 and Mixed hyperlipidemia E78.2 [facility] [id number] [place] [address] 34471- 5695 Jan, Cramps of right lower extremity R25.2 ; Essential hypertension I10 ; Mixed hyperlipidemia E78.2 ; Chronic 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 use Z79.[address] [facility] [id number] [place] [address] 27830- 4535 Jan, Right leg pain M79.604 [facility] [id number] [place] [address] 70852- 2976 Dec, [facility] [address] 21990- 5410 Nov, [facility] [id number] [place] [address] 94409- 0906 Nov, [facility] [id number] [place] [address] 18647- 1741 Nov, [facility] [id number] [place] [address] 29949- 4816 Nov, Dermatofibroma D23.9 [facility] [id number] [place] [address] 53006- 7174 Nov, [facility] [id number] [place] [address] 02484- 4047 Oct, [facility] [id number] [place] [address] 03450- 7653 Oct, [facility] [id number] [place] [address] 38522- 8212 September, Benign non-nodular prostatic hyperplasia with lower urinary tract symptoms N40.1 ; Essential hypertension I10 ; Overactive bladder N32.81 and Fatigue, unspecified type R53.83 [facility] [id number] [place] [address] 36265- 7393 September, [facility] [address] [place] [address] 50790- 3900 September, [facility] [address] [place] [address] 50600- 8534 Aug, [facility] [id number] [place] [address] 82158- 3887 Jul, [facility] [address] 92919- 5709 Jul, Pelvic pain R10.2 ; Jock itch B35.6 ; Essential hypertension I10 and Hydrocele, unspecified hydrocele type N43.3 [facility] [id number] [place] [address] 71759- 4917 Jun, [facility] [id number] [place] [address] 63402- 4264 Jun, [facility] [address] 22437- 7867 Jun, Benign non-nodular prostatic hyperplasia with lower urinary tract symptoms N40.1 [facility] [id number] [place] [address] 59904- 4871 Jun, Benign non-nodular prostatic hyperplasia with lower urinary tract symptoms N40.1 [facility] [id number] [place] [address] 58278- 3497 Jun, [facility] [id number] [place] [address] 63518- 1704 May, [facility] [id number] [place] [address] 14754- 6021 Apr, [facility] [id number] [place] [address] 72918- 5096 Apr, [facility] [id number] [place] [address] 42556- 8070 10 Apr, 2015 Other acute pulmonary embolism without acute cor pulmonale I26.99 ; Anxiety F41.9 ; 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 and termination clerk 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 use Z79.899 [facility] [id number] [place] [address] 58010- 7684 Apr, [facility] [address] [place] [address]- 2297 Apr, [facility] [id number] [place] [address] 12430- 3050 Mar, [facility] [id number] [place] [address] 53227- 4928 Mar, [facility] [id number] [place] [address] 80356- 9499 Feb, Cough R05 [facility] [address] 81584- 0808 Feb, [facility] [address] 49222- 8278 Feb, Encounter for immunization Z23 [facility] [id number] [place] [address] 44138- 4005 Feb, Other and unspecified hyperlipidemia 272.4 [facility] [id number] [place] [address] 84510- 0902 Jan, [facility] [id number] [place] [address] 11226- 2610 Jan, TIA (transient ischemic attack) 435.9 [facility] [id number] [place] [address] 70312- 9444 Dec, [facility] [id number] [place] [address] 08713- 7778 Dec, [facility] [id number] [place] [address] 56674- 6075 Dec, [facility] [id number] [place] [address] 07897- 8378 Nov, [facility] [id number] [place] [address] 14085- 3533 Oct, Chronic cough 786.2 [facility] [id number] [place] [address] 86314- 3905 Oct, [facility] [address], [place] [address]- 8612 Oct, [facility] [address], [place] [address]- 8157 Oct, [facility] [address], [place] [address]- 4465 Oct, [facility] [address] [place] [address] 15366- 0682 05 Oct, [address] [facility] [address] 0160 Oct, Cough 786.2 ; Hypertension 401.9 ; BPH (benign prostatic hyperplasia) 600.00 ; Other and unspecified hyperlipidemia 272.[address] [facility] [address], [place] [address]- 2983 Oct, [facility] [address], [place] [address]- 0711 September, [facility] [id number] [address] Aug, [facility] [id number] [address] Aug, [facility] [id number] [address] Jul, [facility] [id number] [address] Jul, [facility] [id number] [address] Jul, [facility] [id number] [address] Jul, [facility] [id number] [address] Jul, [facility] [id number] [place] [address] Jun, 2014 [facility] [place] [facility] [address] [id number] [place] [address] Jun, 2014 [facility] [place] [facility] [address] [id number] [place] [address] Jun, 2014 [facility] [place] [facility] [address] [id number] [place] [address] Jun, 2014 [facility] [place] [facility] [address] [id number] [place] [address] Jun, 2014 [facility] [place] [facility] [address] [id number] [place] [address] Jun, 2014 [facility] [place] [facility] [address] [id number] [place] [address] Jun, 2014 [facility] [place] [facility] [address] [id number] [place] [address] Jun, [facility] [place] [facility] [address] [id number] [place] [address] May, [facility] [place] [facility] [address] [id number] [place] [address] May, [facility] [place] [facility] [address] [facility] [id number] [place] [address] May, [facility] [place] [facility] [address] [id number] [place] [address] May, [facility] [place] [facility] [address] [id number], [place] [address] May, [facility] [place] [facility] [address] [id number] [place] [address] May, [facility] [place] [facility] [address] [id number] [place] [address] May, [facility] [place] [facility] [address] [id number] [place] [address] May, [facility] [place] [facility] [address] [id number] [place] [address] May, [facility] [place] [facility] [address] [id number] [place] [address] May, [facility] [facility] [address] [id number] [place] [address] Apr, [facility] [place] [facility] [address] [id number] [place] [address] Apr, [facility] [place] [facility] [address] [id number] [place] [address] 68[address] Apr, [facility] [place] [facility] [address] [id number] [place] [address] Apr, [facility] [place] [facility] [address] [id number] [place] [address] Apr, [facility] [place] [facility] [address] [id number] [place] [address] 1596 Apr, [facility] [place] [facility] [address] [id number] [place] [address] 8070 Apr, [facility] [place] [facility] [address] [id number] [place] [address] 8681 Apr, [facility] [place] [facility] [address] [id number] [place] [address] 2356 Mar, [facility] [place] [facility] [address] [id number] [place] [address] 3652 Mar, [facility] [place] [facility] [address] [id number] [place] [address] 6960 Mar, [facility] [place] [facility] [address] [id number] [place] [address]- 9272 Mar, [facility] [place] [facility] [address] [id number] [place] [address]- 1408 Mar, [facility] [place] [facility] [address] [id number] [place] [address]- [address]89 14 Mar, 2014 [facility] [place] [facility] [address] [id number] [place] [address] 2501 Mar, [facility] [place] [facility] [address] [id number] [place] [address]- 6366 Mar, [facility] [place] [facility] [address] [id number] [place] [address]- 3759 Mar, [facility] [place] [facility] [address] [id number] [place] [address]- 0181 Mar, [facility] [place] [facility] [address] [id number] [place] [address]- 8733 Feb, [facility] [place] [address] [id number] [place] [address]- 0031 Feb, [facility] [place] [address] [id number] [place] [address]- 6347 Feb, [facility] [place] [facility] [address] [id number] [place] [address]- 5079 29 Feb, 2014 [facility] [facility] [address] [id number] [place] [address]- 6126 Feb, [facility] [address] [id number] [place] [address]- 9438 Feb, [facility] [place] [facility] [address] [id number] [place] [address]- 7031 30 Jan, 2013 [facility] [facility] [address] [id number], [place] [address] 30 Sep, 2013 [facility] [place] [facility] [address] [id number] [place] [address]- 7694 24 Jan, 2013 [facility] [place] [facility] [address] [id number] [place] [address]- 5480 24 Jan, 2013 [facility] [place] [facility] [address] [id number] [place] [address]- 3209 19 Jan, 2013 [facility] [place] [facility] [address] [id number] [place] [address]- 5196 19 Jan, 2013 [facility] [place] [facility] [address] [id number] [place] [address] 2546 16 Jan, 2013 [facility] [place] [facility] [address] [id number] [place] [address] 2546 16 Jan, 2013 [facility] [place] [address] [id number] [place] [address] 2546 16 Jan, 2013 [facility] [address] [id number] [place] [address] 2543 16 Jan, 2013 [facility] [address] [id number] [place] [address]- 5162 Jan, [facility] [place] [facility] [address] [id number] [place] [address]- 5900 Jan, [facility] [address] [id number] [place] [address]- 0731 Dec, [facility] [address] [id number] [place] [address]- 1408 Dec, [facility] [place] [address] [id number] [place] [address]- 9358 Dec, [facility] [address] [id number] [place] [address]- 7941 Dec, [facility] [address] [id number] [place] [address]- 5192 Dec, [facility] [address] [id number] [place] [address]- 6633 Dec, [facility] [address] [id number] [place] [address]- 9299 Nov, [facility] [address] [id number] [place] [address]- 5765 Nov, [facility] [address] [id number] [place] [address]- 5276 Nov, [facility] [address] [id number] [place] [address]- 7678 Nov, [facility] [address] [id number] [place] [address]- 9076 Nov, [facility] [address] [id number] [place] [address]- 8089 Nov, [facility] [address] [id number] [place] [address]- 3833 Nov, [facility] [address] [id number] [place] [address]- 4569 Nov, [facility] [address] [id number] [place] [address]- 3755 Oct, [facility] [address] [id number] [place] [address]- 5848 Oct, [facility] [address] [id number] [place] [address]- 8887 Oct, [facility] [address] [id number] [place] [address]- 2425 Oct, [facility] [address] [id number] [place] [address]- 4674 September, [facility] [address] [id number] [place] [address]- 2906 September, [facility] [address] [id number], [place] [address] 1631 September, [facility] [address] [id number] [place] [address]- 6171 September, [facility] [address] [id number] [place] [address]- 8576 September, [facility] [address] [id number] [place] [address] September, [facility] [address] [id number] [place] [address]- 2559 Aug, [facility] [address] [id number] [place] [address]- 2768 Aug, [facility] [address] [id number] [place] [address]- 2186 Aug, [facility] [address] [id number] [place] [address]- 4119 Aug, [facility] [address] [id number] [place] [address]- 5777 Aug, [facility] [address] [id number] [place] [address]- 6050 Aug, [facility] [address] [id number] [place] [address]- 6912 Aug, [facility] [address] [id number] [place] [address]- 9322 Aug, [facility] [address] [id number] [place] [address]- 1303 Jul, [facility] [address] [id number] [place] [address]- 0427 Jul, [facility] [address] [facility] [id number] [place] [address]- 2607 Jun, [facility] [address] [id number] [place] [address]- 9645 Jun, [facility] [address] [id number] [place] [address]- 3501 Jun, [facility] [address] [id number] [place] [address]- 0269 Jun, [facility] [address] [id number] [place] [address]- 6235 Jun, [facility] [address] [id number] [place] [address]- 5292 May, [facility] [address] [id number] [place] [address]- 7180 May, [facility] [address] [id number] [place] [address]- 1226 May, [facility] [address] [id number] [place] [address]- 1094 May, [facility] [address] [id number] [place] [address]- 0419 Apr, [facility] [address] [id number] [place] [address]- 7419 Apr, [facility] [address] [id number] [place] [address]- 7951 Mar, [facility] [address] [id number] [place] [address]- 3855 Mar, [facility] [address] [id number], [place] [address]- 0848 Feb, [facility] [address] [id number] [place] [address]- 7316 Feb, [facility] [address] [id number], [place] [address]- 9715 Feb, [facility] [address] [id number], [place] [address]- 3444 Feb, [facility] [address] [id number], [place] [address]- 7397 Feb, [facility] [address] [id number] [place] [address]- 4895 Feb, [facility] [address] [id number], [place] [address]- 3828 Feb, [facility] [address] [id number] [place] [address]- 4452 Jan, [facility] [address] [id number] [place] [address]- 7826 Jan, [facility] [address] [id number] [place] [address]- 5338 Dec, [facility] [address] [id number] [place] [address]- 1555 Dec, [facility] [address] [id number] [place] [address]- 3960 Dec, [facility] [address] [id number] [place] [address]- 8189 Dec, [facility] [address] [id number] [place] [address]- 5222 Dec, [facility] [address] [id number] [place] [address]- 5963 Nov, [facility] [address] [id number] [place] [address]- 9913 Nov, [facility] [address] [id number] [place] [address]- 1052 Nov, [facility] [address] [id number] [place] [address]- 8095 Oct, [facility] [address] [id number] [place] [address]- 4373 Oct, [facility] [address] [id number] [place] [address]- 5557 Oct, [facility] [address] [id number] [place] [address]- 4597 September, [facility] [address] [id number] [place] [address]- 1821 Aug, [facility] [address] [id number] [place] [address]- 5478 Aug, [facility] [address] [id number] [place] [address]- 1690 Aug, [facility] [address] [id number] [place] [address]- 0676 29 Jul, 2012 [facility] [address] [id number] [place] [address]- 0246 18 Jul, 2012 [facility] [address] [facility] [id number] [place] [address]- 2546 15 Jul, 2012 [facility] [address] [id number] [place] [address] 2546 04 Jul, 2012 [facility] [address] [facility] [id number] [place] [address]- 2546 Jul, [facility] [address] [id number] [place] [address]- 4606 28 Jun, 2012 [facility] [address] [facility] [id number] [place] [address]- 2546 Jun, [facility] [address] [facility] [id number] [place] [address]- 0116 May, [facility] [address] [facility] [id number] [place] [address]- 5196 May, [facility] [address] [id number] [place] [address]- 2946 Apr, [facility] [address] [facility] [id number] [place] [address]- 5316 Apr, [facility] [address] [facility] [id number] [place] [address]- 2546 Mar, [facility] [address] [facility] [id number] [place] [address]- 2546 Mar, [facility] [address] [facility] [id number] [place] [address]- 2546 Mar, [facility] [address] [facility] [id number] [place] [address]- 2546 Mar, [facility] [address] [id number] [place] [address] Feb, [facility] [address] [id number] [place] [address]- 5265 Feb, [facility] [address] [id number] [place] [address]- 4770 Feb, [facility] [address] [facility] [id number] [place] [address]- 6098 Feb, [facility] [address] [id number] [place] [address]- 2251 Feb, [facility] [address] [id number] [place] [address]- 6956 Feb, [facility] [address] [facility] [id number] [place] [address]- 7290 Feb, [facility] [address] [id number] [place] [address]- 9448 Jan, [facility] [address] [facility] [id number], [place] [address]- 8282 Jan, [facility] [address] [id number], [place] [address]- 0813 Dec, [facility] [address] [facility] [id number], [place] [address]- 5272 Dec, [facility] [address] [facility] [id number], [place] [address]- 7352 Nov, [facility] [address] [id number], [place] [address]- 5487 Oct, [facility] [address] [facility] [id number], [place] [address]- 4035 September, [facility] [address] [facility] [id number], [place] [address]- 4408 September, [facility] [address] [facility] [id number], [place] [address]- 4773 September, [facility] [address] [facility] [id number] [place] [address]- 1524 10 Aug, 2011 [facility] [address] [id number] [place] [address]- 0082 May, [facility] [address] [facility] [id number] [place] [address]- 8096 May, [facility] [address] [facility] [id number], [place] [address]- 4456 Apr, [facility] [address] [id number] [place] [address]- 5346 Apr, [facility] [address] [facility] [id number] [place] [address]- 2938 Apr, [facility] [address] [facility] [id number] [place] [address]- 6037 Apr, [facility] [address] [facility] [id number] [place] [address]- 2911 Apr, [facility] [address] [facility] [id number], [place] [address]- 8190 Mar, [facility] [address] [facility] [id number], [place] [address]- 7059 Feb, [facility] [address] [facility] [id number], [place] [address]- 6634 Feb, [facility] [address] [facility] [id number], [place] [address]- 7106 September, [facility] [address] [facility] [id number], [place] [address]- 4727 Mar, [facility] [address] [facility] [id number], [place] [address]- 5761 14 Feb, 2010 [facility] [address] [facility] [id number], [place] [address]- 7248 Feb, [facility] [address] [facility] [id number], [place] [address]- 2531 Feb, IMMUNIZATIONS No Known Immunizations SOCIAL HISTORY Never Assessed REASON FOR VISIT Left flank pain Pt states fell down stairs in July and still having flank pain off and on, more the last few days [facility] PLAN OF CARE VITAL SIGNS Height 65 in 2017-12-26 Weight 201 lbs 2017-12-26 Temperature 98.2 degrees Fahrenheit 2017-12-26 Heart Rate 92 bpm 2017-12-26 Respiratory Rate 20 2017-12-26 BMI 33.44 kg/m2 2017-12-26 Blood pressure systolic 140 mmHg 2017-12-26 Blood pressure diastolic 102 mmHg 2017-12-26 MEDICATIONS Medication Instructions Dosage Frequency Start Date End Date Duration Status Trazodone HCl 150 MG Orally Once a day 1 tablet at bedtime 24h 30 days Active Cymbalta 30 MG Orally Once a day 3 capsule 24h 30 Active Diclofenac Sodium 75 MG Orally Twice a day 1 tablet with food or milk 12h Dec, Apr, 30 day(s) Active Donepezil HCl 5 MG TAKE ONE TABLET BY MOUTH ONCE DAILY AT BEDTIME 30 Active Flomax 0.4 MG TAKE ONE CAPSULE BY MOUTH ONCE DAILY 30 MINUTES AFTER THE SAME MEAL EACH DAY 30 Active Famotidine 20 mg Orally Once a day 1 tablet at bedtime 24h Nov, 30 day(s) Active Abilify 5 mg Orally Once a day 1 tablet 24h 30 day(s) Active Finasteride 5 MG TAKE ONE TABLET BY MOUTH ONCE DAILY 30 Active Namenda 10 MG TAKE ONE TABLET BY MOUTH TWICE DAILY 60 Active Aricept 5 mg Orally Once a day 1 tablet at bedtime 24h 30 days Active Oxybutynin Chloride 5 MG TAKE ONE TABLET BY MOUTH TWICE DAILY 30 Active Lisinopril-Hydrochlorothiazide 20-25 MG Orally Once a day 1 tablet 24h Oct, 30 day(s) Active RESULTS Name Result Date Reference Range UA LONG DIP (IN HOUSE) 2017-12-26 Lot # [id number] Exp date 09/17/2018 Clarity clear Color yellow Odor none GLU negative LOUANN negative KET negative SG 1.020 BLO tr--intact pH 6.5 Protein negative URO 0.2 NIT negative JALEN negative Lot # [id number] Exp date 04/2018 PROCEDURES Procedure Date Ordered Result Body Site URINALYSIS, AUTO, W/O SCOPE Dec 26, 2017 X-RAY EXAM OF LOWER SPINE Dec 26, 2017 [facility] VISIT ESTABLISHED PATIENT Dec 26, 2017 INSTRUCTIONS MEDICATIONS ADMINISTERED No Known Medications MEDICAL [...] foot fracture Hospitalization History [facility] [place]- Back Pain 03/24/2017
--- OUTSIDE RECORDS SUMMARY | 2018-04-10 17:57 | XMS REPORT ---
Author Author PASCUAL WHITNEY Organization [facility] [address] Address [address] [place] [address] Care Team Providers Care [facility] Attendant Name Role Phone TEA WHITNEYCHIKI Unavailable PROBLEMS Type Condition ICD9-CM Code [id number] Code Onset Dates Condition Status SNOMED Code Problem Color blindness H53.50 Active 971522544 Problem Presbyopia of both eyes H52.4 Active 89736158 Problem Nuclear senile cataract of both eyes H25.13 Active 566036651 Problem Astigmatism of both eyes, unspecified type H52.203 Active 65989292 Problem Essential hypertension I10 Active 81580431 Problem Other chronic pain G89.29 Active 00520703 Problem Hypermetropia of both eyes H52.03 Active 21904370 Problem Alzheimer's disease, unspecified G30.9 Active 618595091 Problem 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 Active 169133269 Problem 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 Active 587259986 Problem Gait instability R26.81 Active 67362519 Problem 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 Active 153075159 Problem Arthritis, 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 Active 485379393 Problem PVD (peripheral vascular disease) I73.9 Active 303747361 Problem 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 Active 393696904 Problem Hydrocele, unspecified hydrocele type N43.3 Active 24394188 Problem Other acute pulmonary embolism without acute cor pulmonale I26.99 Active 065955345 Problem At high risk for falls Z91.81 Active [id number] Problem Asymptomatic microscopic hematuria R31.21 Active 806175190 Problem Major depressive disorder, single episode, mild F32.0 Active 38128649 Problem Chronic fatigue R53.82 Active 46519320 Problem Benign non-nodular prostatic hyperplasia with lower urinary tract symptoms N40.1 Active 955146256 Problem Transient cerebral ischemia, unspecified transient cerebral ischemia type G45.9 Active 300475333 Problem Renal cyst, left Q61.00 Active 15728199 Problem 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 Active 81602780 Problem Anxiety F41.9 Active 57962114 Problem Overactive bladder N32.81 Active 068698720 Problem Primary insomnia F51.01 Active 019847878 Problem Mixed hyperlipidemia E78.2 Active 442513239 ALLERGIES Substance Reaction Event Type Date Status Vicodin Unknown Drug Allergy Dec, Active Lovastatin had a reaction to a statin but is unsure of which statin it was Drug Allergy Dec, Active Codeine Sulfate Unknown Drug Allergy Dec, Active ENCOUNTERS Encounter Location Date Diagnosis [place] [address] [address] Jan, Flank pain R10.9 [place] [address] [address]- [address] Jan, [place] [address] 06[address]- 7771 Dec, [place] [address] [place] [id number] [place] [address] 09397- 3788 Dec, [place] [address] [address]08- [address] Dec, 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 and 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 [place] [address] [place] [id number] [place] [address] 69523- 7857 Dec, Left flank pain R10.9 and Arthritis, 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 [facility] [address] [place] [id number] [place] [address] 08421- 6120 Dec, [facility] [address] 23731- 5339 Nov, Essential hypertension I10 and Mixed hyperlipidemia E78.2 [facility] [address] [place] [id number] [place] [address] 97485- 6200 Oct, Edema leg R60.0 [place] [address] [place] [address] [place] [address] September, [place] [address] [place] [id number] [place] [address] 76592- 9932 September, 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 and 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 [place] [address] [place] [id number] [place] [address] 32374- 9489 September, PVD (peripheral vascular disease) I73.9 ; Major depressive disorder, single episode, mild F32.0 ; Chronic fatigue R53.82 ; Weight gain R63.5 and Arthralgia, unspecified joint M25.50 [place] [address] [place] [id number] [place] [address] 08500- 5363 Aug, Acute low back pain, unspecified back pain laterality, with sciatica presence unspecified M54.5 [place] [address] [place] [id number] [place] [address] 77423- 6015 Aug, Acute low back pain, unspecified back pain laterality, with sciatica presence unspecified M54.5 [place] [address] [place] [id number] [place] [address] 39462- 4296 Aug, Pain R52 [place] [address] [place] [id number] [place] [address] 66399- 1526 Jul, [place] [address] [place] [id number] [place] [address] 42592- 5469 Jun, [place] [address] [place] [id number] [place] [address] 37402- 2584 07 Jun, 2017 Medicare annual wellness visit, initial Z00.00 ; Mixed hyperlipidemia E78.2 ; Essential hypertension I10 ; Anxiety F41.9 ; 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 ; 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 ; Overactive bladder N32.81 ; Primary insomnia F51.01 ; At high risk for falls Z91.81 and Encounter for immunization Z23 [place] [address] [place] [id number] [place] [address] 56812- 8011 May, [facility] [id number] [place] [address] 67532- 4197 May, Essential hypertension I10 and Transient cerebral ischemia, unspecified transient cerebral ischemia type G45.9 [facility] [id number] [place] [address] [id number] May, Dental examination Z01.20 and Dental caries K02.9 [facility] [address] [place] [id number] [place] [address] 99915- 0059 May, [facility] [address] [place] [id number] [place] [address] 07472- 0895 May, [facility] [address] [place] [id number] [place] [address] 81111- 9112 May, 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 [place] [address] [place] [id number] [place] [address] 46372- 9103 Apr, [facility] [address] [place] [id number] [place] [address] 41355- 7382 Apr, 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 and 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 [place] [address] [place] [id number] [place] [address] 31565- 0609 Mar, 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 [place] [address] [place] [id number] [place] [address] 00670- 4048 Mar, Mixed hyperlipidemia E78.2 ; Essential hypertension I10 ; Asymptomatic microscopic hematuria R31.21 and Renal cyst, left Q61.00 [place] [address] [place] [id number] [place] [address] 63175- 7469 Mar, [facility] [address] [place] [id number] [place] [address] 67737- 7451 Feb, Encounter for immunization Z23 [facility] [address] 01100- 8535 Feb, [facility] [address] [address] Feb, [facility] [address] [place] [id number] [place] [address] 52784 -7666 Feb, ANUG (acute necrotizing ulcerative gingivitis) A69.1 [facility] [id number] [place] [address] 63615- 3699 Feb, [facility] [address] [place] [id number] [place] [address] 75332- 7240 Feb, 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 [place] [address] [place] [id number] [place] [address] 43156- 4347 Feb, 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 and 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 [facility] [id number] [place] [address] 96138- 4791 Jan, 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 [facility] [id number] [place] [address] 71114- 3302 Jan, Gait instability R26.81 [facility] [address] [id number] [address] Jan [facility] [address] [id number] [place] [address] Dec [facility] [address] [address]- 0387 Dec, [facility] [id number] [place] [address] 84386- 0000 Dec, [facility] [address] [place] [id number] [place] [address] 60624- 8093 Dec, Essential hypertension I10 ; Transient cerebral ischemia, unspecified transient cerebral ischemia type G45.9 and Anxiety F41.9 [facility] [id number] [place] [address] 68675- 0676 Dec, Gait instability R26.81 [facility] [id number] [place] [address] 48405- 8330 Dec, [facility] [address] [place] [id number] [place] [address] 72445- 9432 Nov, 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 and 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 [facility] [address] [place] [id number] [place] [address] 41071- 2817 Nov, [facility] [address] [place] [id number] [place] [address] 29863- 3888 Nov, Gait instability R26.81 [facility] [address] [place] [id number] [place] [address] 06558- 8758 Nov, Anxiety F41.9 [facility] [address] [place] [id number] [place] [address] 88809- 9188 Nov, [facility] [address] [place] [id number] [place] [address] 43561- 3576 Nov, [facility] [address] [place] [id number] [place] [address] 81036- 9711 Oct, Gait instability R26.81 [facility] [address] [place] [id number] [place] [address] 52789- 9541 Oct, Anxiety F41.9 [facility] [address] [place] [id number] [place] [address] 80072- 1528 Oct, Gait instability R26.81 [facility] [id number] [place] [address] 64855- 3571 Oct, Gait instability R26.81 [facility] [address] [place] [id number] [place] [address] 76189- 5231 Oct, [facility] [id number] [place] [address] 28840- 9627 Oct, Anxiety F41.9 ; Chronic 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 use Z79.899 ; Encounter for immunization Z23 and Transient cerebral ischemia, unspecified transient cerebral ischemia type G45.9 [facility] [address] [address]- 8152 September, [facility] [address] [place] [id number] [place] [address] 10025- 8020 September, Gait instability R26.81 [facility] [address] [place] [id number] [place] [address] 58112- 7471 September, [facility] [address] [place] [id number] [place] [address] 93448- 6466 September, [facility] [address] [place] [id number] [place] [address] 12818- 4520 September, [facility] [address] [place] [id number] [place] [address] 86866- 0479 September, 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 and 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 [facility] [address] [place] [id number] [address]- 6942 September, [facility] [address] [place] [id number] [address]- 2750 September, [facility] [address] [address]- 8286 September, [facility] [address], [place] [address]- 4401 September, 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 [facility] [address] [address]- 4099 Aug, 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 ; 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 ; Other acute pulmonary embolism without acute cor pulmonale I26.99 and Cough R05 [facility] [address], [place] [address]- 9951 Aug, [facility] [address] [place] [id number] [address]- 0460 Aug, Gait instability R26.81 [facility] [address] [place] [id number] [place] [address] 66382- 9042 Aug, 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 and 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 [place] [address] [place] [id number] [place] [address] 06583- 8740 Aug, [place] [address] [place] [id number] [place] [address] 11691- 2670 Aug, 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 [place] [address] [place] [id number] [place] [address] 09762- 2552 Jul, 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 [place] [address] [place] [id number] [place] [address] 48298- 7152 Jul, [place] [address] [place] [id number] [place] [address] 06726- 5838 Jul, 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 [place] [address] [place] [id number] [place] [address] 71191- 9158 Jul, Anxiety F41.9 ; 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 and Transient cerebral ischemia, unspecified transient cerebral ischemia type G45.9 [place] [address] [place] [id number] [place] [address] 11215- 5525 Jun, Essential hypertension I10 [facility] [address] [place] [id number] [place] [address] 69448- 9281 Jun, [facility] [address] [place] [id number] [place] [address] 84741- 4383 Jun, [facility] [address] [place] [id number] [place] [address] 91844- 2043 Jun, [facility] [address] [place] [id number] [place] [address] 33817- 1671 Jun, Essential hypertension I10 ; Benign non-nodular prostatic hyperplasia with lower urinary tract symptoms N40.1 ; Anxiety F41.9 ; Pain in right knee M25.561 ; Pain in left knee M25.562 and Other chronic pain G89.29 [facility] [address] [place] [id number] [place] [address] 41968- 6312 May, [facility] [address] [place] [id number] [place] [address] 65777- 5541 May, [facility] [address] [place] [id number] [place] [address] 78920- 2726 May, [facility] [address] [place] [id number] [place] [address] 46141- 7696 Apr, [facility] [address] [place] [id number] [place] [address] 91609- 3243 Mar, [facility] [address] 22276- 1634 Mar, Mixed hyperlipidemia E78.2 and Essential hypertension I10 [facility] [address] [place] [id number] [place] [address] 94122- 5217 Feb, [place] [address] [place] [id number] [place] [address] 04520- 7274 Feb, Ingrown nail L60.0 and Onychomycosis B35.1 [place] [address] [place] [id number] [place] [address] 41076- 3249 Feb, Paronychia, left L03.012 [facility] [address] [place] [id number] [place] [address] 54805- 5191 Jan, [facility] [address] [place] [id number] [place] [address] 00805- 7784 Jan, Cramps of right lower extremity R25.2 and Mixed hyperlipidemia E78.2 [facility] [address] [place] [id number] [place] [address] 23511- 9961 Jan, Cramps of right lower extremity R25.2 ; Essential hypertension I10 ; Mixed hyperlipidemia E78.2 ; Chronic 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 use Z79.899 and Claudication I73.9 [facility] [address] [place] [id number] [place] [address] 23272- 7822 Jan, Right leg pain M79.604 [facility] [address] [place] [id number] [place] [address] 24406- 3084 Dec, [facility] [address] [place] [id number] [place] [address] 76791- 0105 Nov, [facility] [address] [place] [id number] [place] [address] 20687- 7568 Nov, [facility] [address] [place] [id number] [place] [address] 21634- 6567 Nov, [facility] [address] [place] [id number] [place] [address] 73706- 0780 Nov, Dermatofibroma D23.9 [facility] [address] [place] [id number] [place] [address] 04226- 5133 Nov, [facility] [address] [place] [id number] [place] [address] 66738- 0377 Oct, [facility] [address] [place] [id number] [place] [address] 58954- 5307 Oct, [facility] [address] [place] [id number] [place] [address] 20975- 6762 September, Benign non-nodular prostatic hyperplasia with lower urinary tract symptoms N40.1 ; Essential hypertension I10 ; Overactive bladder N32.81 and Fatigue, unspecified type R53.83 [facility] [address] [place] [id number] [place] [address] 62710- 0151 September, [facility] [address] [place] [id number] [place] [address] 39941- 9796 September, [facility] [address] [place] [id number] [place] [address] 29336- 9509 Aug, [facility] [id number] [place] [address] 31857- 9364 Jul, [facility] [address] [place] [id number] [place] [address] 85293- 0877 Jul, Pelvic pain R10.2 ; Jock itch B35.6 ; Essential hypertension I10 and Hydrocele, unspecified hydrocele type N43.3 [facility] [address] 57280- 6320 Jun, [facility] [address] [place] [id number] [place] [address] 30087- 6900 Jun, [facility] [address] [place] [id number] [place] [address] 03374- 2012 Jun, Benign non-nodular prostatic hyperplasia with lower urinary tract symptoms N40.1 [facility] [address] [place] [id number] [place] [address] 99074- 2113 Jun, Benign non-nodular prostatic hyperplasia with lower urinary tract symptoms N40.1 [facility] [address] [place] [id number] [place] [address] 26823- 1518 Jun, [facility] [address] [place] [id number] [place] [address] 58887- 8770 May, [facility] [address] [place] [id number] [place] [address] 81852- 3956 Apr, [facility] [address] [place] [id number] [place] [address] 62014- 2481 Apr, [facility] [address] [place] [id number] [place] [address] 10385- 6695 Apr, Other acute pulmonary embolism without acute cor pulmonale I26.99 ; Anxiety F41.9 ; 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 and half-way 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 use Z79.899 [facility] [address] [place] [id number] [place] [address] 90089- 6248 Apr, [facility] [address], [place] [address]- 4958 Apr, [facility] [address] [place] [id number] [place] [address] 26162- 2602 Mar, [facility] [address] [place] [id number] [place] [address] 31362- 1771 Mar, [facility] [address] [place] [id number] [place] [address] 07424- 8429 Feb, Cough R05 [facility] [address] [place] [id number] [place] [address] 45904- 6601 Feb, [facility] [address] [place] [id number] [place] [address] 07747- 0158 Feb, Encounter for immunization Z23 [facility] [address] [place] [id number] [place] [address] 06961- 8906 Feb, Other and unspecified hyperlipidemia 272.4 [facility] [address] [place] [id number] [place] [address] 70744- 7074 Jan, [facility] [address] [place] [id number] [place] [address] 29994- 5207 Jan, TIA (transient ischemic attack) 435.9 [facility] [address] [id number] [place] [address] 24424- 7020 Dec, [facility] [address] [place] [id number] [place] [address] 10568- 7386 Dec, [facility] [address] [id number] [place] [address] 96976- 7522 Dec, [facility] [id number] [place] [address] 96955- 2231 Nov, [facility] [id number] [place] [address] 51567- 2395 Oct, Chronic cough 786.2 [facility] [address] [id number] [place] [address] 94142- 6861 Oct, [facility] [id number] [address]- 8615 Oct, [facility] [address], [place] [address]- 2500 Oct, [facility] [address], [place] [address]- 2801 Oct, [facility] [address], [place] [address]- 4515 Oct, Chronic cough 786.2 [facility] [id number] [place] [address] 52480- 9805 Oct, Cough 786.2 ; Hypertension 401.9 ; BPH (benign prostatic hyperplasia) 600.00 ; Other and unspecified hyperlipidemia 272.4 and Hydrocele 603.9 [facility] [address], [place] [address]- 1616 Oct, [facility] [address], [place] [address]- 6054 September, [facility] [address], [place] [address]- 9133 Aug, [facility] [address], [place] [address]- 2058 Aug, [facility] [id number] [address]- 2903 Jul, [facility] [address], [place] [address]- 3683 Jul, [facility] [address] [address]- 3901 Jul, [facility] [address] [address]- 7225 Jul, [facility] [id number] [address]- 3516 Jul, [facility] [address] [place] [address]- 9738 Jun, 2014 [facility] [place] [facility] [address] [id number] [place] [address] Jun, 2014 [facility] [place] [facility] [address] [id number] [place] [address] Jun, 2014 [facility] [place] [facility] [address] [id number] [place] [address] Jun, 2014 [facility] [place] [facility] [address] [id number] [place] [address] Jun, 2014 [facility] [place] [facility] [address] [id number] [place] [address] Jun, 2014 [facility] [place] [facility] [address] [id number] [place] [address] Jun, 2014 [facility] [place] [facility] [address] [id number] [place] [address] Jun, [facility] [place] [facility] [address] [id number] [place] [address] May, [facility] [place] [facility] [address] [facility] [id number] [place] [address] May, [facility] [place] [facility] [address] [id number] [place] [address] May, [facility] [place] [facility] [address] [id number] [place] [address] May, [facility] [place] [facility] [address] [id number] [place] [address] May, [facility] [place] [facility] [address] [id number] [place] [address] May, [facility] [place] [facility] [address] [id number] [place] [address] May, [facility] [place] [facility] [address] [id number] [place] [address] May, [facility] [facility] [address] [id number] [place] [address] May, [facility] [place] [facility] [address] [id number] [place] [address] May, [facility] [place] [facility] [address] [facility] [id number] [place] [address] Apr, [facility] [place] [facility] [address] [id number] [place] [address] 8604 Apr, [facility] [place] [facility] [address] [id number] [place] [address]18 Apr, [facility] [place] [facility] [address] [id number] [place] [address] 0778 Apr, [facility] [place] [facility] [address] [id number] [place] [address] Apr, [facility] [place] [facility] [address] [id number] [place] [address]- 5544 Apr, [facility] [place] [facility] [address] [id number] [place] [address]- 0864 Apr, [facility] [place] [facility] [address] [id number] [place] [address] 7762 Apr, [facility] [place] [facility] [address] [id number] [place] [address] 6[address] Mar, [facility] [place] [facility] [address] [id number], [place] [address] Mar, [facility] [place] [facility] [address] [id number] [place] [address] 7287 Mar, [facility] [place] [facility] [address] [id number] [place] [address]- 5224 Mar, [facility] [place] [facility] [address] [id number] [place] [address]- 0225 Mar, [facility] [place] [facility] [address] [id number] [place] [address]- 7001 14 Mar, 2014 [facility] [address] [id number] [place] [address]- 0196 Mar, [facility] [place] [facility] [address] [id number] [place] [address]- 0671 Mar, [facility] [place] [facility] [address] [id number] [place] [address]- 9924 Mar, [facility] [address] [id number] [place] [address]- 0773 Mar, [facility] [place] [address] [id number] [place] [address]- 2921 Feb, [facility] [place] [facility] [address] [id number] [place] [address]- 9383 Feb, [facility] [address] [id number] [place] [address]- 3189 Feb, [facility] [address] [id number] [place] [address]- 7967 29 Feb, 2014 [facility] [address] [id number] [place] [address]- 7545 Feb, [facility] [address] [id number] [place] [address]- 4245 Feb, [facility] [address] [id number] [place] [address]- 4786 30 Jan, 2013 [facility] [address] [id number] [place] [address]- 6093 30 Jan, 2013 [facility] [address] [id number] [place] [address]- 2996 24 Jan, 2014 [facility] [address] [id number] [place] [address]- 4909 24 Jan, 2013 [facility] [place] [address] [id number] [place] [address]- 3471 19 Jan, 2013 [facility] [address] [id number] [place] [address]- 8544 19 Jan, 2013 [facility] [address] [id number] [place] [address]- 0276 16 Jan, 2013 [facility] [address] [id number] [place] [address]- 0876 16 Jan, 2013 [facility] [address] [id number] [place] [address]- 3666 16 Jan, 2013 [facility] [place] [address] [id number] [place] [address]- 2144 16 Jan, 2014 [facility] [address] [id number] [place] [address]- 8637 Jan, [facility] [address] [id number] [place] [address]- 3351 Jan, [facility] [address] [id number] [place] [address]- 2057 Dec, [facility] [address] [id number] [place] [address]- 9273 Dec, [facility] [address] [id number] [place] [address]- 2132 Dec, [facility] [address] [id number] [place] [address]- 9670 Dec, [facility] [address] [id number] [place] [address]- 3374 Dec, [facility] [address] [id number] [place] [address]- 5061 Dec, [facility] [address] [id number] [place] [address]- 5629 Nov, [facility] [address] [id number] [place] [address]- 8182 Nov, [facility] [address] [id number] [place] [address]- 8110 Nov, [facility] [address] [id number] [place] [address]- 2257 Nov, [facility] [address] [id number] [place] [address]- 4738 Nov, [facility] [address] [id number] [place] [address]- 3008 Nov, [facility] [address] [id number] [place] [address]- 7435 Nov, [facility] [address] [id number] [place] [address]- 4228 Nov, [facility] [address] [id number] [place] [address]- 8595 Oct, [facility] [address] [id number] [place] [address]- 5128 Oct, [facility] [address] [id number] [place] [address]- 2271 Oct, [facility] [address] [id number] [place] [address]- 1697 Oct, [facility] [address] [id number] [place] [address]- 1316 September, [facility] [address] [id number] [place] [address]- 6525 September, [facility] [address] [id number] [place] [address]- 4327 September, [facility] [address] [id number] [place] [address]- 3312 September, [facility] [address] [id number] [place] [address]- 9379 September, [facility] [address] [id number] [place] [address]- 2486 September, [facility] [address] [id number] [place] [address]- 9419 Aug, [facility] [address] [id number] [place] [address]- 8906 Aug, [facility] [address] [id number] [place] [address]- 4453 Aug, [facility] [address] [id number] [place] [address]- 4673 Aug, [facility] [address] [id number] [place] [address]- 9103 Aug, [facility] [address] [id number] [place] [address]- 7128 Aug, [facility] [address] [id number] [place] [address]- 5791 Aug, [facility] [address] [id number] [place] [address]- 0641 Aug, [facility] [address] [id number] [place] [address]- 8536 Jul, [facility] [address] [id number] [place] [address]- 0378 Jul, [facility] [address] [facility] [id number] [place] [address]- 2639 Jun, [facility] [address] [id number] [place] [address]- 5029 Jun, [facility] [address] [id number] [place] [address]- 7008 Jun, [facility] [address] [id number] [place] [address]- 8325 Jun, [facility] [address] [id number] [place] [address]- 0302 Jun, [facility] [address] [id number] [place] [address]- 1750 May, [facility] [address] [id number] [place] [address]- 8236 May, [facility] [address] [id number] [place] [address]- 1954 May, [facility] [address] [id number] [place] [address]- 4934 May, [facility] [address] [id number] [place] [address]- 9785 Apr, [facility] [address] [id number] [place] [address]- 5760 Apr, [facility] [address] [id number] [place] [address]- 2958 Mar, [facility] [address] [id number] [place] [address]- 5064 Mar, [facility] [address] [id number] [place] [address]- 8666 Feb, [facility] [address] [id number] [place] [address]- 0709 Feb, [facility] [address] [id number] [place] [address]- 0437 Feb, [facility] [address] [id number], [place] [address]- 4536 Feb, [facility] [address] [id number], [place] [address]- 2352 Feb, [facility] [address] [id number] [place] [address]- 7537 Feb, [facility] [address] [id number] [place] [address]- 5590 Feb, [facility] [address] [id number] [place] [address]- 4456 Jan, [facility] [address] [id number] [place] [address]- 9267 Jan, [facility] [address] [id number] [place] [address]- 3228 Dec, [facility] [address] [id number] [place] [address]- 4604 Dec, [facility] [address] [id number] [place] [address]- 1846 Dec, [facility] [address] [id number] [place] [address]- 7539 Dec, [facility] [address] [id number] [place] [address]- 5610 Dec, [facility] [address] [id number] [place] [address]- 2908 Nov, [facility] [address] [id number] [place] [address]- 6724 Nov, [facility] [address] [id number] [place] [address]- 9320 Nov, [facility] [address] [id number] [place] [address]- 8060 Oct, [facility] [address] [id number] [place] [address]- 7657 Oct, [facility] [address] [id number] [place] [address]- 5525 Oct, [facility] [address] [id number] [place] [address]- 2351 September, [facility] [address] [id number] [place] [address]- 0938 Aug, [facility] [address] [id number] [place] [address]- 2546 Aug, [facility] [address] [id number] [place] [address]- 7991 Aug, [facility] [address] [id number] [place] [address]- 5028 29 Jul, 2012 [facility] [address] [id number] [place] [address]- 3276 18 Jul, 2012 [facility] [address] [id number] [place] [address]- 5206 15 Jul, 2012 [facility] [address] [id number] [place] [address]- 6286 04 Jul, 2012 [facility] [address] [id number] [place] [address]- 8554 Jul, [facility] [address] [id number] [place] [address]- 6856 Jun, [facility] [address] [facility] [id number] [place] [address]- 9496 Jun, [facility] [address] [id number], [place] [address]- 8594 May, [facility] [address] [id number] [place] [address]- 5769 May, [facility] [address] [facility] [id number], [place] [address]- 3327 Apr, [facility] [address] [id number], [place] [address]- 8978 Apr, [facility] [address] [id number], [place] [address]- 3279 Mar, [facility] [address] [facility] [id number] [place] [address]- 0536 Mar, [facility] [address] [facility] [id number], [place] [address]- 2766 Mar, [facility] [address] [facility] [id number], [place] [address]- 9096 Mar, [facility] [address] [id number] [address] Feb, [facility] [address] [id number] [place] [address]- 0146 Feb, [facility] [address] [id number] [address]156 Feb, [facility] [address] [facility] [id number] [place] [address]- 4696 Feb, [facility] [address] [id number] [place] [address]- 3866 Feb, [facility] [address] [id number] [place] [address]- 2855 Feb, [facility] [address] [id number] [place] [address]- 5374 Feb, [facility] [address] [facility] [id number] [place] [address]- 2390 Jan, [facility] [address] [id number] [place] [address]- 1559 Jan, [facility] [address] [facility] [id number], [place] [address]- 3889 Dec, [facility] [address] [id number], [place] [address]- 3504 Dec, [facility] [address] [id number], [place] [address]- 0148 Nov, [facility] [address] [id number], [place] [address]- 6392 Oct, [facility] [address] [id number], [place] [address]- 8441 September, [facility] [address] [facility] [id number], [place] [address]- 5030 September, [facility] [address] [facility] [id number] [place] [address]- 3887 September, [facility] [place] [facility] [address] [id number] [place] [address]- 7962 10 Aug, 2011 [facility] [address] [id number] [place] [address]- 7839 May, [facility] [address] [id number] [place] [address] 2546 May, [facility] [address] [id number] [place] [address]- 4972 Apr, [facility] [address] [id number] [place] [address]- 9861 Apr, [facility] [address] [id number] [place] [address]- 7250 Apr, [facility] [address] [id number] [place] [address]- 2543 Apr, [facility] [address] [id number] [place] [address]- 6358 Apr, [facility] [address] [id number] [place] [address]- 8700 Mar, [facility] [address] [id number] [place] [address]- 1247 Feb, [facility] [address] [id number] [place] [address]- 8026 Feb, [facility] [address] [id number] [place] [address]- 8054 September, [facility] [address] [id number] [place] [address]- 5198 Mar, [facility] [address] [id number] [place] [address]- 0451 14 Feb, 2010 [facility] [address] [id number] [place] [address]- 5616 Feb, [facility] [address] [id number] [place] [address]- 4888 Feb, IMMUNIZATIONS No Known Immunizations SOCIAL HISTORY Never Assessed REASON FOR VISIT f/u Ingrid PLAN OF CARE Activity Details Follow Up 6 Months Reason: VITAL SIGNS MEDICATIONS Medication Instructions Dosage Frequency Start Date End Date Duration Status Lisinopril-Hydrochlorothiazide 20-25 MG Orally Once a day 1 tablet 24h Oct, 30 day(s) Active Namenda 10 MG Orally Twice a day 1 tablet 12h Active Famotidine 20 mg Orally Once a day 1 tablet at bedtime 24h Nov, 30 day(s) Active Oxybutynin Chloride 5 MG TAKE ONE TABLET BY MOUTH TWICE DAILY 30 Active Cymbalta 30 MG Orally Once a day 3 capsule 24h 30 Active Flomax 0.4 MG TAKE ONE CAPSULE BY MOUTH ONCE DAILY 30 MINUTES AFTER THE SAME MEAL EACH DAY 30 Active Donepezil HCl 5 MG TAKE ONE TABLET BY MOUTH ONCE DAILY AT BEDTIME 30 Active Diclofenac Sodium 75 MG Orally Twice a day 1 tablet with food or milk 12h Dec, Apr, 30 day(s) Active Finasteride 5 MG TAKE ONE TABLET BY MOUTH ONCE DAILY 30 Active Aricept 5 mg Orally Once a day 1 tablet at bedtime 24h 30 days Active Abilify 5 mg Orally Once a day 1 tablet 24h 30 day(s) Active Trazodone HCl 150 MG Orally Once a day 1 tablet at bedtime 24h 30 days Active RESULTS No Results PROCEDURES Procedure Date Ordered Result Body Site [facility] VISIT ESTABLISHED PATIENT Dec 26, 2017 [...] foot fracture Hospitalization History Via [facility]- Back Pain 03/24/2017
--- OUTSIDE RECORDS SUMMARY | 2018-04-10 17:57 | XMS REPORT ---
Author Author FRANKIE ROCHE Organization [facility] Address [address] [place] [address] Care Team Providers Care Special Education Instructor Name Role Phone FRANKIE ROCHE Unavailable PROBLEMS Type Condition ICD9-CM Code TWA24-UY Code Onset Dates Condition Status SNOMED Code Problem Color blindness H53.50 Active 124297908 Problem Presbyopia of both eyes H52.4 Active 75441873 Problem Nuclear senile cataract of both eyes H25.13 Active 022298089 Problem Astigmatism of both eyes, unspecified type H52.203 Active 50732742 Problem Essential hypertension I10 Active 55498443 Problem Other chronic pain G89.29 Active 36608616 Problem Hypermetropia of both eyes H52.03 Active 90133484 Problem Alzheimer's disease, unspecified G30.9 Active 579719537 Problem 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 Active 207120016 Problem 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 Active 844525061 Problem Gait instability R26.81 Active 59151252 Problem 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 Active 516247417 Problem Arthritis, 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 Active 036690439 Problem PVD (peripheral vascular disease) I73.9 Active 102223792 Problem 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 Active 786538472 Problem Hydrocele, unspecified hydrocele type N43.3 Active 87774325 Problem Other acute pulmonary embolism without acute cor pulmonale I26.99 Active 137376517 Problem At high risk for falls Z91.81 Active [id number] Problem Asymptomatic microscopic hematuria R31.21 Active 861677102 Problem Major depressive disorder, single episode, mild F32.0 Active 57668335 Problem Chronic fatigue R53.82 Active 21245012 Problem Benign non-nodular prostatic hyperplasia with lower urinary tract symptoms N40.1 Active 409521838 Problem Transient cerebral ischemia, unspecified transient cerebral ischemia type G45.9 Active 489043197 Problem Renal cyst, left Q61.00 Active 89025335 Problem 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 Active 17702036 Problem Anxiety F41.9 Active 68476103 Problem Overactive bladder N32.81 Active 910700778 Problem Primary insomnia F51.01 Active 047099548 Problem Mixed hyperlipidemia E78.2 Active 474995855 ALLERGIES No Information ENCOUNTERS Encounter Location Date Diagnosis [place] [id number] [place] [address] 65023- 7171 07 Jan, [address] [facility] [address] 8[address]38- 2178 Jan, [place] [address] 52620- 2908 Dec, [facility] [id number] [place] [address] 54368- 8539 Dec, [place] [address] 11523- 3924 Dec, 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 and 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 [facility] [address] 78666- 5924 Dec, Left flank pain R10.9 and Arthritis, 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 [place] [id number] [place] [address] 80968- 3668 Dec, [facility] [address] 49464- 0796 Nov, Essential hypertension I10 and Mixed hyperlipidemia E78.2 [place] [id number] [place] [address] 74098- 1352 Oct, Edema leg R60.0 [facility] [id number] [place] [address] 30131- 1522 September, [facility] [id number] [place] [address] 57522- 3843 September, Alzheimers disease with late onset G30.1 and 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 [place] [id number] [place] [address] 20209- 6153 September, PVD (peripheral vascular disease) I73.9 ; Major depressive disorder, single episode, mild F32.0 ; Chronic fatigue R53.82 ; Weight gain R63.5 and Arthralgia, unspecified joint M25.50 [place] [address] 60210- 0250 Aug, Acute low back pain, unspecified back pain laterality, with sciatica presence unspecified M54.5 [place] [address] 22209- 4202 Aug, Acute low back pain, unspecified back pain laterality, with sciatica presence unspecified M54.5 [facility] [address] 40999- 8701 Aug, Pain R52 [place] [address] 64166- 7737 Jul, [place] [address] 85866- 5149 Jun, [place] [id number] [place] [address] 64609- 7905 07 Jun, 2017 Medicare annual wellness visit, initial Z00.00 ; Mixed hyperlipidemia E78.2 ; Essential hypertension I10 ; Anxiety F41.9 ; Alzheimers disease with late onset G30.1 ; 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 ; Overactive bladder N32.81 ; Primary insomnia F51.01 ; At high risk for falls Z91.81 and Encounter for immunization Z23 [facility] [id number] [place] [address] 85184- 5474 May, [place] [address] 82570- 1578 May, Essential hypertension I10 and Transient cerebral ischemia, unspecified transient cerebral ischemia type G45.9 [facility] [address] [place] [address] [id number] May, Dental examination Z01.20 and Dental caries K02.9 [facility] [id number] [place] [address] 84105- 0743 May, [facility] [address] 89971- 5384 May, [facility] [address] 62038- 5335 May, Alzheimers disease with late onset G30.1 [place] [address] 85795- 2737 Apr, [place] [address] 16396- 1211 Apr, Alzheimers disease with late onset G30.1 and 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 [place] [address] 03671- 7827 Mar, 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 [place] [address] 41287- 4845 Mar, Mixed hyperlipidemia E78.2 ; Essential hypertension I10 ; Asymptomatic microscopic hematuria R31.21 and Renal cyst, left Q61.00 [place] [id number] [place] [address] 35960- 5476 Mar, [facility] [id number] [place] [address] 17853- 0480 Feb, Encounter for immunization Z23 [place] [address] 01316- 0267 Feb, [place] [address] 10844- 4734 Feb, [facility] [address] 73986 -1838 Feb, ANUG (acute necrotizing ulcerative gingivitis) A69.1 [facility] [id number] [place] [address] 12957- 9777 Feb, [facility] [id number] [place] [address] 63295- 0743 Feb, 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 [facility] [id number] [place] [address] 36774- 3865 Feb, Alzheimers disease with late onset G30.1 and 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 [facility] [id number] [place] [address] 91957- 5107 Jan, Alzheimers disease with late onset G30.1 [facility] [id number] [place] [address] 12697- 2966 Jan, Gait instability R26.81 [facility] [address] [id number] [place] [address] Jan [facility] [address] [id number] [place] [address] [facility] [address] [place] [address] 68456- 8409 Dec, [facility] [address] [place] [address] 74937- 4021 Dec, [facility] [id number] [place] [address] 80611- 9856 Dec, Essential hypertension I10 ; Transient cerebral ischemia, unspecified transient cerebral ischemia type G45.[address] [facility] [id number] [place] [address] 40449- 4625 Dec, Gait instability R26.81 [facility] [id number] [place] [address] 58309- 2702 Dec, [facility] [id number] [place] [address] 92064- 4292 Nov, Alzheimers disease with late onset G30.1 and 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 [facility] [id number] [place] [address] 90173- 1259 Nov, [facility] [address] [place] [address] 50226- 0215 Nov, Gait instability R26.81 [facility] [id number] [place] [address] 51251- 4327 Nov, Anxiety F41.9 [facility] [id number] [place] [address] 33246- 6829 Nov, [facility] [id number] [place] [address] 99432- 7262 Nov, [facility] [id number] [place] [address] 81333- 8272 Oct, Gait instability R26.81 [facility] [id number] [place] [address] 52399- 7305 Oct, Anxiety F41.9 [facility] [id number] [place] [address] 25080- 7330 Oct, Gait instability R26.81 [facility] [address] [address]- 4505 Oct, Gait instability R26.81 [facility] [address] [place] [address] 50111- 3275 Oct, [facility] [address] [place] [address] 21687- 2243 Oct, Anxiety F41.9 ; Chronic 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 use Z79.899 ; Encounter for immunization Z23 and Transient cerebral ischemia, unspecified transient cerebral ischemia type G45.9 [facility] [address] [address]- 4206 September, [facility] [id number] [address]- 3535 September, Gait instability R26.81 [facility] [address] [facility] [id number] [address]- 8785 September, [facility] [address] [facility] [id number] [address]- 3102 September, [facility] [id number] [address]- 7632 September, [facility] [address] [facility] [id number] [address]- 2639 September, Alzheimers disease with late onset G30.1 and 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 [facility] [id number] [address]- 6001 September, [facility] [address] [address]- 5485 September, [facility] [address] [facility] [id number] [address]- 6221 September, [facility] [id number] [address]- 7781 September, 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 [facility] [address] [address]- 9713 Aug, 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 ; Alzheimers disease with late onset G30.1 ; Other acute pulmonary embolism without acute cor pulmonale I26.[address] [facility] [address] [facility] [id number] [address]- 4811 Aug, [facility] [id number] [address]- 6181 Aug, Gait instability R26.81 [facility] [id number] [address]- 2343 Aug, Alzheimers disease with late onset G30.1 and 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 [place] [id number] [place] [address] 64201- 2599 Aug, [place] [id number] [place] [address] 6414 Aug, 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 [place] [id number] [place] [address] 46203- 9182 Jul, Alzheimers disease with late onset G30.1 [place] [id number] [place] [address] 46921- 1038 Jul, [place] [address] 68505- 3719 Jul, 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 [place] [id number] [place] [address] 79242- 1628 Jul, Anxiety F41.9 ; Alzheimers disease with late onset G30.1 and Transient cerebral ischemia, unspecified transient cerebral ischemia type G45.9 [place] [id number] [place] [address] 61210- 2044 Jun, Essential hypertension I10 [place] [id number] [place] [address] 65838- 1400 Jun, [place] [id number] [place] [address] 66485- 9521 Jun, [place] [id number] [place] [address] 19601- 2983 Jun, [place] [id number] [place] [address] 77682- 7049 Jun, Essential hypertension I10 ; Benign non-nodular prostatic hyperplasia with lower urinary tract symptoms N40.1 ; Anxiety F41.9 ; Pain in right knee M25.561 ; Pain in left knee M25.562 and Other chronic pain G89.29 [place] [id number] [place] [address] 75205- 3220 May, [facility] [id number] [place] [address] 77788- 5515 May, [facility] [id number] [place] [address] 94555- 7768 May, [facility] [id number] [place] [address] 78871- 6319 Apr, [facility] [id number] [place] [address] 94783- 3973 Mar, [facility] [address] 67271- 2518 Mar, Mixed hyperlipidemia E78.2 and Essential hypertension I10 [place] [id number] [place] [address] 24078- 4018 Feb, [facility] [id number] [place] [address] 43606- 9116 Feb, Ingrown nail L60.0 and Onychomycosis B35.1 [place] [id number] [place] [address] 60832- 4815 Feb, Paronychia, left L03.012 [place] [id number] [place] [address] 44906- 7118 Jan, [facility] [id number] [place] [address] 60092- 2137 Jan, Cramps of right lower extremity R25.2 and Mixed hyperlipidemia E78.2 [place] [id number] [place] [address] 14402- 9444 Jan, Cramps of right lower extremity R25.2 ; Essential hypertension I10 ; Mixed hyperlipidemia E78.2 ; Chronic 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 use Z79.899 and Claudication I73.9 [place] [id number] [place] [address] 18543- 6785 Jan, Right leg pain M79.604 [facility] [address] [address]- 9243 Dec, [facility] [address] [place] [address] 097221- 8161 Nov, [facility] [id number] [place] [address] 23682- 7990 Nov, [facility] [id number] [place] [address] 54411- 0063 Nov, [facility] [id number] [place] [address] 44512- 3942 Nov, Dermatofibroma D23.9 [facility] [id number] [place] [address] 66165- 2560 Nov, [facility] [id number] [place] [address] 32367- 9159 Oct, [facility] [id number] [place] [address] 95232- 3055 Oct, [facility] [id number] [place] [address] 20204- 4365 September, Benign non-nodular prostatic hyperplasia with lower urinary tract symptoms N40.1 ; Essential hypertension I10 ; Overactive bladder N32.81 and Fatigue, unspecified type R53.83 [facility] [address] [address]- 0536 September, [facility] [id number] 2273 September, [facility] [id number] [place] [address] 132783- 3656 Aug, [facility] [address] 5370 Jul, [facility] [id number] [place] [address] 29733- 5032 Jul, Pelvic pain R10.2 ; Jock itch B35.6 ; Essential hypertension I10 and Hydrocele, unspecified hydrocele type N43.3 [facility] [id number] [place] [address] 23599- 6923 Jun, [facility] [id number] [place] [address] 45546- 4565 Jun, [facility] [address] 28323- 5282 Jun, Benign non-nodular prostatic hyperplasia with lower urinary tract symptoms N40.1 [facility] [address] 20743- 1887 Jun, Benign non-nodular prostatic hyperplasia with lower urinary tract symptoms N40.1 [facility] [id number] [place] [address] 49786- 8490 Jun, [facility] [address] 01600- 4898 May, [facility] [id number] [place] [address] 42098- 7543 Apr, [facility] [id number] [place] [address] 41504- 2910 Apr, 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 [id number] [place] [address] 53859- 3812 Apr, [facility] [id number] [place] [address] 93559- 5666 Apr, [facility] [id number] [place] [address] 19821- 6936 Mar, [facility] [id number] [place] [address] 78608- 6084 Mar, [facility] [id number] [place] [address] 30809- 5433 Feb, Cough R05 [facility] [id number] [place] [address] 42442- 0832 Feb, [facility] [address] 44327- 4386 Feb, Encounter for immunization Z23 [facility] [address] 85793- 2006 Feb, Other and unspecified hyperlipidemia 272.4 [facility] [id number] [place] [address] 55610- 6758 Jan, [facility] [address] 80398- 0967 Jan, TIA (transient ischemic attack) 435.9 [facility] [id number] [place] [address] 79378- 5704 Dec, [facility] [id number] [place] [address] 29869- 3069 Dec, [facility] [id number] [place] [address] 22170- 4260 Dec, [facility] [id number] [place] [address] 93440- 2368 Nov, [facility] [id number] [place] [address] 20000- 7421 Oct, Chronic cough 786.2 [facility] [id number] [place] [address] 69612- 3339 Oct, [facility] [id number] [place] [address] 35813- 0186 Oct, [facility] [address] 22728- 7306 Oct, [facility] [address] [address]- 5069 Oct, [facility] [address] [address]- 6739 Oct, Chronic cough 786.2 [facility] [address] 2008 Oct, Cough 786.2 ; Hypertension 401.9 ; BPH (benign prostatic hyperplasia) 600.00 ; Other and unspecified hyperlipidemia 272.[address] [facility] [id number] [place] [address] 52979- 5047 Oct, [facility] [address] [address]- 8627 September, [facility] [address] [address]- 5574 Aug, [facility] [address] [address]- 6899 Aug, [facility] [address] [address]- 0481 Jul, [facility] [address] [address]- 6188 Jul, [facility] [address] [address]- 8835 Jul, [facility] [address] [address]- 4689 Jul, [facility] [address]- 5646 Jul, [facility] [address] [address]- 8411 Jun, [facility] [id number] 3027 Jun, [facility] [place] [facility] [address] [id number] [place] [address]- 3380 Jun, [facility] [place] [facility] [address] [id number] [place] [address]- 9955 Jun, [facility] [place] [facility] [address] [id number] [place] [address]- 5824 Jun, 2014 [facility] [place] [facility] [address] [id number] [place] [address]- 2112 Jun, [facility] [place] [facility] [address] [id number] [place] [address]- 0329 Jun, [facility] [place] [facility] [address] [id number] [place] [address]- 0730 Jun, [facility] [place] [facility] [address] [id number] [place] [address]- 4696 May, [facility] [place] [facility] [address] [id number] [place] [address]- 3106 May, [facility] [place] [facility] [address] [id number] [place] [address]- 3738 May, [facility] [place] [facility] [address] [id number] [place] [address]- 7756 May, [facility] [place] [facility] [address] [id number] [address]- 2663 May, [facility] [place] [facility] [address] [id number] [address]- 0272 May, [facility] [place] [facility] [address] [id number] [place] [address]- 0856 May, [facility] [place] [facility] [address] [id number] [address]- 2044 May, [facility] [place] [facility] [address] [id number] [place] [address]- 8922 May, [facility] [place] [facility] [address] [id number] [place] [address]- 0774 May, [facility] [place] [facility] [address] [id number] [place] [address]- 1309 Apr, [facility] [place] [facility] [address] [id number] [place] [address]- 5073 Apr, [facility] [place] [facility] [address] [id number] [place] 8689 Apr, [facility] [place] [facility] [address] [id number] [place] [address]- 6342 Apr, [facility] [place] [facility] [address] [id number] [place] [address]- 5897 Apr, [facility] [place] [facility] [address] [id number] [place] [address]- 9596 Apr, [facility] [place] [facility] [address] [id number] [place] [address] Apr, [facility] [place] [facility] [address] [id number] [place] [address] Apr, [facility] [place] [facility] [address] [id number] [place] [address] Mar, [facility] [place] [facility] [address] [id number] [place] [address] Mar, [facility] [place] [facility] [address] [id number] [place] [address] Mar, [facility] [place] [facility] [address] [id number] [place] [address] Mar, [facility] [place] [facility] [address] [id number] [place] [address] Mar, [facility] [place] [facility] [address] [id number] [place] [address] Mar, [facility] [place] [facility] [address] [id number] [place] [address] Mar, [facility] [place] [facility] [address] [id number] [place] [address] Mar, [facility] [place] [facility] [address] [id number] [place] [address] Mar, [facility] [place] [facility] [address] [id number] [place] [address] Mar, [facility] [place] [facility] [address] [id number] [place] [address] Feb, [facility] [place] [facility] [address] [id number] [place] [address] Feb, [facility] [place] [facility] [address] [id number] [place] [address] Feb, [facility] [place] [facility] [address] [id number] [place] [address] Feb, [facility] [place] [facility] [address] [id number] [place] [address] Feb, [facility] [place] [facility] [address] [id number] [place] [address] Feb, [facility] [place] [facility] [address] [id number] [place] [address] 30 Jan, 2014 [facility] [place] [facility] [address] [id number] [place] [address] 30 Jan, 2014 [facility] [place] [facility] [address] [id number] [place] [address] 24 Jan, 2013 [facility] [place] [facility] [address] [address] [id number] [place] [address] 24 Jan, 2014 [facility] [place] [facility] [address] [id number] [place] [address] 19 Jan, 2013 [facility] [place] [facility] [address] [id number] [place] [address] 19 Jan, 2014 [facility] [place] [facility] [address] [id number] [place] [address] 16 Jan, 2014 [facility] [place] [facility] [address] [id number] [place] [address] 16 Jan, 2014 [facility] [place] [facility] [address] [id number] [place] [address] Jan, [facility] [place] [facility] [address] [id number] [place] [address] Jan, [facility] [place] [facility] [address] [id number] [place] [address] Jan, [facility] [place] [facility] [address] [id number] [place] [address] 75[address] Jan, [facility] [place] [facility] [address] [id number] [place] [address] Dec, [facility] [place] [facility] [address] [id number] [place] [address] Dec, [facility] [place] [facility] [address] [id number] [place] [address] Dec, [facility] [place] [facility] [address] [id number] [place] [address] 8014 Dec, [facility] [place] [facility] [address] [id number] [place] [address] 4[address] Dec, [facility] [place] [facility] [address] [id number] [place] [address] 5[address] Dec, [facility] [place] [facility] [address] [id number] [place] [address] 8[address] Nov, [facility] [place] [facility] [address] [id number] [place] [address]- 8236 Nov, [facility] [place] [facility] [address] [id number] [place] [address]- 5588 Nov, [facility] [place] [facility] [address] [id number] [place] [address]- 6995 Nov, [facility] [place] [facility] [address] [id number] [place] [address] 3714 Nov, [facility] [address] [id number] [place] [address]- 6233 Nov, [facility] [place] [facility] [address] [id number] [place] [address]- 5870 Nov, [facility] [place] [facility] [address] [id number] [place] [address]- 4105 Nov, [facility] [place] [facility] [address] [id number] [place] [address] 6186 Oct, [facility] [place] [facility] [address] [id number] [place] [address]- 7489 Oct, [facility] [place] [facility] [address] [id number] [place] [address]- 4150 Oct, [facility] [place] [facility] [address] [id number] [place] [address]- 5715 Oct, [facility] [address] [id number] [place] [address] 4931 September, [facility] [place] [facility] [address] [id number] [place] [address] 1144 September, [facility] [address] [id number] [place] [address]- [address] September, [facility] [place] [facility] [address] [id number] [place] [address]- 9915 September, [facility] [place] [facility] [address] [id number] [place] [address] 6040 September, [facility] [place] [facility] [address] [id number] [place] [address] September, [facility] [place] [facility] [address] [id number] [place] [address] 6456 Aug, [facility] [place] [facility] [address] [id number] [place] [address] Aug, [facility] [place] [facility] [address] [id number] [place] [address]- 8687 Aug, [facility] [place] [facility] [address] [id number] [place] [address] 4037 Aug, [facility] [place] [facility] [address] [id number] [place] [address]- 6836 Aug, [facility] [place] [facility] [address] [id number] [place] [address]- 3834 Aug, [facility] [place] [facility] [address] [id number] [place] [address]- 5881 Aug, [facility] [place] [facility] [address] [id number] [place] [address]- 9480 Aug, [facility] [place] [facility] [address] [id number] [place] [address] 8533 Jul, [facility] [place] [facility] [address] [id number] [place] [address] 3023 Jul, [facility] [place] [facility] [address] [id number] [place] [address]- 2947 Jun, [facility] [place] [facility] [address] [id number] [place] [address]- 5062 Jun, [facility] [place] [facility] [address] [id number] [place] [address]- 1040 Jun, [facility] [place] [facility] [address] [id number] [address] Jun, [facility] [place] [facility] [address] [id number] [place] [address]- 4436 Jun, [facility] [place] [facility] [address] [id number] [place] [address]- 9636 May, [facility] [place] [facility] [address] [id number] [place] [address]- 5872 May, [facility] [place] [facility] [address] [id number] [place] [address]- 8742 May, [facility] [place] [facility] [address] [id number] [place] [address]- 7984 May, [facility] [place] [facility] [address] [id number] [place] [address]- 1756 Apr, [facility] [place] [facility] [address] [id number] [place] [address]- 5824 Apr, [facility] [place] [facility] [address] [id number] [place] [address]- 7892 Mar, [facility] [place] [facility] [address] [id number] [place] [address]- 9221 Mar, [facility] [place] [facility] [address] [id number] [place] [address]- 8824 Feb, [facility] [place] [facility] [address] [id number] [place] [address]- 9439 Feb, [facility] [place] [facility] [address] [id number] [place] [address]- 1374 Feb, [facility] [place] [facility] [address] [id number] [place] [address]- 0440 Feb, [facility] [place] [facility] [address] [id number] [place] [address]- 0379 Feb, [facility] [place] [facility] [address] [id number] [place] [address] Feb, [facility] [place] [facility] [address] [id number] [place] [address]- 9494 Feb, [facility] [place] [facility] [address] [id number] [place] [address] 1840 Jan, [facility] [place] [facility] [address] [id number] [place] [address] 0503 Jan, [facility] [place] [facility] [address] [id number] [place] [address]- 6099 Dec, [facility] [place] [facility] [address] [id number] [place] [address]- 4127 Dec, [facility] [address] [id number] [place] [address]- 1055 Dec, [facility] [address] [id number] [place] [address]- 1226 Dec, [facility] [address] [id number] [place] [address]- 7972 Dec, [facility] [address] [id number] [place] [address] 8761 Nov, [facility] [address] [id number] [place] [address]- 5835 Nov, [facility] [address] [id number] [place] [address]- 6299 Nov, [facility] [address] [id number] [place] [address]- 0104 Oct, [facility] [address] [id number] [place] [address]- 0198 Oct, [facility] [address] [id number] [place] [address]- 9748 Oct, [facility] [address] [id number] [place] [address]- 9633 September, [facility] [address] [id number] [place] [address]- 5432 Aug, [facility] [place] [facility] [address] [id number] [place] [address]- 0001 Aug, [facility] [place] [facility] [address] [id number] [place] [address]- [address]31 Aug, [facility] [place] [facility] [address] [id number] [place] [address]- 4263 Jul, [facility] [place] [facility] [address] [id number] [place] [address]- 2564 Jul, [facility] [place] [facility] [address] [id number] [place] [address]- 3418 Jul, [facility] [address] [id number] [place] [address]- 1086 Jul, [facility] [address] [facility] [id number] [place] [address]- 9346 Jul, [facility] [address] [id number] [place] [address]- 9650 Jun, [facility] [address] [id number] [place] [address]- 3816 Jun, [facility] [address] [id number] [place] [address]- 1187 May, [facility] [place] [facility] [address] [facility] [id number] [place] [address]- 5490 May, [facility] [address] [id number] [place] [address]- 9669 Apr, [facility] [place] [facility] [address] [facility] [id number] [place] [address]- 6715 Apr, [facility] [address] [facility] [id number] [place] [address]- 9671 Mar, [facility] [place] [facility] [address] [facility] [id number] [place] [address]- 5706 Mar, [facility] [address] [facility] [id number] [place] [address]- 5806 Mar, [facility] [place] [facility] [address] [facility] [id number] [place] [address]- 3066 Mar, [facility] [address] [id number][place] [id number] Feb, [facility] [place] [facility] [address] [id number] [address]- 3906 Feb, [facility] [place] [facility] [address] [facility] [id number] [place] [address]- 0782 Feb, [facility] [address] [id number] [place] [address]- 7910 Feb, [facility] [place] [facility] [address] [id number] [place] [address]- 1814 Feb, [facility] [address] [id number] [place] [address]- 0136 Feb, [facility] [place] [facility] [address] [id number] [place] [address]- 2831 Feb, [facility] [address] [id number] [place] [address]- 8155 Jan, [facility] [place] [facility] [address] [id number] [place] [address]- 1269 Jan, [facility] [address] [id number] [place] [address]- 1263 Dec, [facility] [address] [id number] [place] [address]- 6977 Dec, [facility] [place] [facility] [address] [id number] [place] [address]- 1078 Nov, [facility] [address] [id number] [place] [address]- 5240 Oct, [facility] [place] [facility] [address] [id number] [place] [address]- 4996 September, [facility] [place] [facility] [address] [id number] [place] [address]- 4399 September, [facility] [place] [facility] [address] [id number] [place] [address]- 3190 September, [facility] [place] [facility] [address] [id number] [place] [address]- 7198 Aug, [facility] [place] [facility] [address] [id number] [place] [address]- 6772 May, [facility] [address] [id number] [address]759 May, [facility] [address] [facility] [id number] [address]106 Apr, [facility] [address] [facility] [id number] [address]- 6544 Apr, [facility] [address] [facility] [id number] [address]- 1469 Apr, [facility] [address] [facility] [id number] [address] 0033 Apr, [facility] [address] [facility] [id number] [address] 1377 Apr, [facility] [address] [facility] [id number] [address]- 3688 Mar, [facility] [address] [facility] [id number] [address] 9326 Feb, [facility] [address] [facility] [id number] [address]- 9516 Feb, [facility] [address] [facility] [id number] [address] 4747 September, [facility] [address] [facility] [id number] [address]- 3868 Mar, [facility] [address] [facility] [id number] [address] 2528 Feb, [facility] [address] [facility] [id number] [address]- [address] Feb, [facility] [address] [id number] [address]- 1307 Feb, IMMUNIZATIONS No Known Immunizations SOCIAL HISTORY Never Assessed REASON FOR VISIT pain in his side PLAN OF CARE VITAL SIGNS MEDICATIONS Unknown [...] Hospitalization History foot fracture Hospitalization History [facility]- Back Pain 03/24/2017
--- OUTSIDE RECORDS SUMMARY | 2018-04-10 17:58 | XMS REPORT ---
Author Author CONNER ROCHE Organization [facility] Address [address] [place] [address] Care Team Providers Care Trading Assistant Name Role Phone CONNER ROCHE Unavailable PROBLEMS Type Condition ICD9-CM Code AQA09-SF Code Onset Dates Condition Status SNOMED Code Problem Color blindness H53.50 Active 550672441 Problem Presbyopia of both eyes H52.4 Active 15299201 Problem Nuclear senile cataract of both eyes H25.13 Active 444546331 Problem Astigmatism of both eyes, unspecified type H52.203 Active 00492942 Problem Essential hypertension I10 Active 52635787 Problem Other chronic pain G89.29 Active 89422563 Problem Hypermetropia of both eyes H52.03 Active 57663257 Problem Alzheimer's disease, unspecified G30.9 Active 785083338 Problem 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 Active 460623179 Problem 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 Active 499125114 Problem Gait instability R26.81 Active 71918688 Problem 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 Active 868632834 Problem Arthritis, 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 Active 724431255 Problem PVD (peripheral vascular disease) I73.9 Active 027968954 Problem Alzheimers disease with late onset G30.1 Active 469551063 Problem Hydrocele, unspecified hydrocele type N43.3 Active 55754564 Problem Other acute pulmonary embolism without acute cor pulmonale I26.99 Active 244287977 Problem At high risk for falls Z91.81 Active [id number] Problem Asymptomatic microscopic hematuria R31.21 Active 662324460 Problem Major depressive disorder, single episode, mild F32.0 Active 40312546 Problem Chronic fatigue R53.82 Active 74541685 Problem Benign non-nodular prostatic hyperplasia with lower urinary tract symptoms N40.1 Active 395875337 Problem Transient cerebral ischemia, unspecified transient cerebral ischemia type G45.9 Active 454394880 Problem Renal cyst, left Q61.00 Active 70033648 Problem 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 Active 65545864 Problem Anxiety F41.9 Active 59390193 Problem Overactive bladder N32.81 Active 115708572 Problem Primary insomnia F51.01 Active 557202853 Problem Mixed hyperlipidemia E78.2 Active 071236820 ALLERGIES Substance Reaction Event Type Date Status Vicodin Unknown Drug Allergy Nov, Active Lovastatin had a reaction to a statin but is unsure of which statin it was Drug Allergy Nov, Active Codeine Sulfate Unknown Drug Allergy Nov, Active ENCOUNTERS Encounter Location Date Diagnosis [place] [id number] [place] [address] 49050- 2605 Jan, Flank pain R10.9 [place] [address] 29816- 8457 Jan, [place] [address] 19500- 5385 Dec, [place] [address] 66103- 6523 Dec, [place] [address] 93831- 1994 Dec, Alzheimers disease with late onset G30.1 and 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 [facility] [id number] [place] [address] 35361- 9283 Dec, Left flank pain R10.9 and Arthritis, 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 [facility] [id number] [place] [address] 99940- 4648 Dec, [place] [address] 30480- 5038 Nov, Essential hypertension I10 and Mixed hyperlipidemia E78.2 [facility] [id number] [place] [address] 62309- 3811 Oct, Edema leg R60.0 [place] [address] 23851- 0353 September, [place] [id number] [place] [address] 89511- 9776 September, Alzheimers disease with late onset G30.1 and 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 [facility] [place] [id number] [place] [address] 77768- 5635 September, PVD (peripheral vascular disease) I73.9 ; Major depressive disorder, single episode, mild F32.0 ; Chronic fatigue R53.82 ; Weight gain R63.5 and Arthralgia, unspecified joint M25.50 [facility] [id number] [place] [address] 17610- 1489 Aug, Acute low back pain, unspecified back pain laterality, with sciatica presence unspecified M54.5 [facility] [id number] [place] [address] 10902- 2636 Aug, Acute low back pain, unspecified back pain laterality, with sciatica presence unspecified M54.5 [facility] [id number] [place] [address] 52918- 7448 Aug, Pain R52 [facility] [id number] [place] [address] 85706- 0153 Jul, [facility] [place] [id number] [place] [address] 39051- 7406 Jun, [facility] [id number] [place] [address] 31754- 5376 Jun, Medicare annual wellness visit, initial Z00.00 ; Mixed hyperlipidemia E78.2 ; Essential hypertension I10 ; Anxiety F41.9 ; Alzheimers disease with late onset G30.1 ; 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 ; Overactive bladder N32.81 ; Primary insomnia F51.01 ; At high risk for falls Z91.81 and Encounter for immunization Z23 [place] [id number] [place] [address] 00128- 4875 May, [facility] [address], [place] [address] 7964 May, Essential hypertension I10 and Transient cerebral ischemia, unspecified transient cerebral ischemia type G45.9 [facility] [address] [id number] May, Dental examination Z01.20 and Dental caries K02.9 [facility] [id number] [place] [address] 05344- 7458 May, [facility] [id number] [place] [address] 91228- 6677 May, [facility] [id number] [place] [address] 41946- 8005 May, Alzheimers disease with late onset G30.1 [place] [id number] [place] [address] 40692- 0451 Apr, [facility] [id number] [place] [address] 79902- 4329 Apr, Alzheimers disease with late onset G30.1 and 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 [place] [id number] [place] [address] 33677- 5740 Mar, 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 [place] [id number] [place] [address] 71417- 9081 Mar, Mixed hyperlipidemia E78.2 ; Essential hypertension I10 ; Asymptomatic microscopic hematuria R31.21 and Renal cyst, left Q61.00 [facility] [address] [place] [address] 18655- 9289 Mar, [place] [id number] [place] [address] 39019- 8963 Feb, Encounter for immunization Z23 [facility] [id number] [place] [address] 28855- 1076 Feb, [place] [address], [place] [address]- 4327 Feb, [facility] [id number] [place] [address] 46014 -4455 Feb, ANUG (acute necrotizing ulcerative gingivitis) A69.1 [facility] [address] [place] [address] 37862- 1574 Feb, [facility] [id number] [place] [address] 59573- 9727 Feb, 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 [place] [id number] [place] [address] 25670- 2196 Feb, Alzheimers disease with late onset G30.1 and 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 [facility] [address] [place] [address] 59322- 0713 Jan, Alzheimers disease with late onset G30.1 [facility] [id number] [place] [address] 10473- 1239 Jan, Gait instability R26.81 [facility] [address] [id number] [address] Jan [facility] [address] [id number] [place] [address] Dec [facility] [address], [place] [address]- 4859 Dec, [facility] [address], [place] [address]- 7937 Dec, [facility] [id number] [place] [address] 31061- 0566 Dec, Essential hypertension I10 ; Transient cerebral ischemia, unspecified transient cerebral ischemia type G45.9 and Anxiety F41.9 [facility] [address], [place] [address]- 6245 Dec, Gait instability R26.81 [facility] [address] [place] [address] 19702- 3623 Dec, [facility] [id number] [place] [address] 63040- 2907 Nov, Alzheimers disease with late onset G30.1 and 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 [facility] [id number] [place] [address] 66896- 8446 Nov, [facility] [id number] [place] [address] 88317- 5654 Nov, Gait instability R26.81 [facility] [id number] [place] [address] 45938- 0317 Nov, Anxiety F41.9 [facility] [id number] [place] [address] 35446- 0376 Nov, [facility] [id number] [place] [address] 65125- 5212 Nov, [facility] [id number] [place] [address] 16567- 9955 Oct, Gait instability R26.81 [facility] [id number] [place] [address] 07539- 3424 Oct, Anxiety F41.9 [facility] [id number] [place] [address] 19659- 3774 Oct, Gait instability R26.81 [facility] [id number] [place] [address] 48605- 7344 Oct, Gait instability R26.81 [facility] [id number] [place] [address] 29411- 7529 Oct, [facility] [id number] [place] [address] 86458- 9679 Oct, Anxiety F41.9 ; Chronic 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 use Z79.899 ; Encounter for immunization Z23 and Transient cerebral ischemia, unspecified transient cerebral ischemia type G45.9 [facility] [address], [place] [address]- 1380 September, [facility] [address], [place] [address]- 8412 September, Gait instability R26.81 [facility] [address], [place] [address]- 4107 September, [facility] [id number] [place] [address]- 1561 September, [facility] [id number], [place] [address]- 5148 September, [facility] [address] [place] [address]- 5243 September, Alzheimers disease with late onset G30.1 and 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 [facility] [address], [place] [address]- 9884 September, [facility] [id number], [place] [address]- 1550 September, [facility] [address], [place] [address]- 0235 September, [facility] [address], [place] [address]- 9689 September, 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 [facility] [id number], [place] [address]- 5348 Aug, 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 ; Alzheimers disease with late onset G30.1 ; Other acute pulmonary embolism without acute cor pulmonale I26.99 and Cough R05 [facility] [id number], [place] [address]- 2298 Aug, [facility] [address], [place] [address]- 8840 Aug, Gait instability R26.81 [facility] [address], [place] [address]- 9929 Aug, Alzheimers disease with late onset G30.1 and 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 [facility] [address], [place] [address]- 6881 Aug, [place] [id number] [place] [address] 16801- 7219 Aug, 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 [place] [id number] [place] [address] 69680- 9235 Jul, Alzheimers disease with late onset G30.1 [place] [id number] [place] [address] 49483- 3113 Jul, [facility] [place] [id number] [place] [address] 29323- 2183 Jul, 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 [place] [id number] [place] [address] 90015- 5403 Jul, Anxiety F41.9 ; Alzheimers disease with late onset G30.1 and Transient cerebral ischemia, unspecified transient cerebral ischemia type G45.9 [place] [address], [place] [address]- 1167 Jun, Essential hypertension I10 [facility] [address], [place] [address]- 7184 Jun, [facility] [address], [place] [address]- 6555 Jun, [place] [address], [place] [address]- 5851 Jun, [facility] [address], [place] [address]- 2077 Jun, Essential hypertension I10 ; Benign non-nodular prostatic hyperplasia with lower urinary tract symptoms N40.1 ; Anxiety F41.9 ; Pain in right knee M25.561 ; Pain in left knee M25.562 and Other chronic pain G89.29 [place] [id number] [place] [address] 23342- 2500 May, [facility] [place] [id number] [place] [address] 87236- 1475 May, [place] [address] 37712- 6411 May, [place] [address] 40539- 9202 Apr, [place] [address] 25196- 4208 Mar, [place] [address] 97809- 4993 Mar, Mixed hyperlipidemia E78.2 and Essential hypertension I10 [facility] [id number] [place] [address] 18576- 9116 Feb, [place] [address] 91390- 0116 Feb, Ingrown nail L60.0 and Onychomycosis B35.1 [facility] [id number] [place] [address] 62331- 5801 Feb, Paronychia, left L03.012 [place] [id number] [place] [address] 30266- 2326 Jan, [place] [id number] [place] [address] 49909- 3499 Jan, Cramps of right lower extremity R25.2 and Mixed hyperlipidemia E78.2 [place] [id number] [place] [address] 89041- 6059 Jan, Cramps of right lower extremity R25.2 ; Essential hypertension I10 ; Mixed hyperlipidemia E78.2 ; Chronic 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 use Z79.899 and Claudication I73.9 [facility] [id number] [place] [address] 54762- 1117 Jan, Right leg pain M79.604 [facility] [id number] [place] [address] 96732- 0953 Dec, [facility] [address] 31026- 6951 Nov, [facility] [id number] [place] [address] 02353- 0380 Nov, [facility] [id number] [place] [address] 34128- 1101 Nov, [facility] [id number] [place] [address] 25041- 2853 Nov, Dermatofibroma D23.9 [facility] [id number] [place] [address] 51239- 3363 Nov, [facility] [id number] [place] [address] 23009- 0548 Oct, [facility] [id number] [place] [address] 28418- 2221 Oct, [facility] [id number] [place] [address] 28153- 9657 September, Benign non-nodular prostatic hyperplasia with lower urinary tract symptoms N40.1 ; Essential hypertension I10 ; Overactive bladder N32.81 and Fatigue, unspecified type R53.83 [facility] [id number] [place] [address] 96578- 9298 September, [facility] [id number] [place] [address] 49344- 2753 September, [facility] [id number] [place] [address] 72803- 4811 Aug, [facility] [id number] [place] [address] 51920- 6671 Jul, [facility] [address] 81246- 8629 Jul, Pelvic pain R10.2 ; Jock itch B35.6 ; Essential hypertension I10 and Hydrocele, unspecified hydrocele type N43.3 [facility] [id number] [place] [address] 78782- 2362 Jun, [facility] [id number] [place] [address] 21319- 9973 Jun, [facility] [address] 24378- 0003 Jun, Benign non-nodular prostatic hyperplasia with lower urinary tract symptoms N40.1 [facility] [id number] [place] [address] 11103- 8718 Jun, Benign non-nodular prostatic hyperplasia with lower urinary tract symptoms N40.1 [facility] [id number] [place] [address] 54068- 3273 Jun, [facility] [id number] [place] [address] 38309- 6937 May, [facility] [id number] [place] [address] 63193- 4817 Apr, [facility] [id number] [place] [address] 14743- 8310 Apr, [facility] [id number] [place] [address] 48987- 8122 10 Apr, 2015 Other acute pulmonary embolism without acute cor pulmonale I26.99 ; Anxiety F41.9 ; 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 and 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 [facility] [id number] [place] [address] 46724- 9557 Apr, [facility] [address] [place] [address]- 8261 Apr, [facility] [id number] [place] [address] 28948- 2199 Mar, [facility] [id number] [place] [address] 29340- 8256 Mar, [facility] [id number] [place] [address] 86449- 2176 Feb, Cough R05 [facility] [address] 30817- 8023 Feb, [facility] [address] 67216- 8727 Feb, Encounter for immunization Z23 [facility] [id number] [place] [address] 89944- 7765 Feb, Other and unspecified hyperlipidemia 272.4 [facility] [id number] [place] [address] 45231- 1158 Jan, [facility] [id number] [place] [address] 66934- 6894 Jan, TIA (transient ischemic attack) 435.9 [facility] [id number] [place] [address] 11312- 7673 Dec, [facility] [id number] [place] [address] 73445- 6437 Dec, [facility] [id number] [place] [address] 43464- 3370 Dec, [facility] [id number] [place] [address] 62088- 6465 Nov, [facility] [id number] [place] [address] 41970- 3855 Oct, Chronic cough 786.2 [facility] [id number] [place] [address] 25029- 0035 Oct, [facility] [address], [place] [address]- 1003 Oct, [facility] [address], [place] [address]- 6273 Oct, [facility] [address], [place] [address]- 5591 Oct, [facility] [address] [place] [address] 88192- 2818 05 Oct, 2014 Chronic cough 786.2 [facility] [address] 7167 Oct, Cough 786.2 ; Hypertension 401.9 ; BPH (benign prostatic hyperplasia) 600.00 ; Other and unspecified hyperlipidemia 272.4 and Hydrocele 603.9 [facility] [address], [place] [address]- 0337 Oct, [facility] [address], [place] [address]- 7989 September, [facility] [address], [place] [address]- 0943 Aug, [facility] [address], [place] [address]- 2103 Aug, [facility] [address], [place] [address]- 5866 Jul, [facility] [address], [place] [address]- 2335 Jul, [facility] [address], [place] [address]- 1092 Jul, [facility] [address], [place] [address]- 4948 Jul, [facility] [id number] 1673 Jul, [facility] [address] [place] [address]- 4048 Jun, 2014 [facility] [place] [facility] [address] [id number] [place] [address]- 9816 Jun, 2014 [facility] [place] [facility] [address] [id number] [place] [address]- 2186 Jun, 2014 [facility] [place] [facility] [address] [id number] [place] [address]- 3086 Jun, 2014 [facility] [place] [facility] [address] [id number] [place] [address] 2542 Jun, 2014 [facility] [place] [facility] [address] [id number] [place] [address]- 0641 Jun, 2014 [facility] [place] [facility] [address] [id number] [place] [address]- 1017 Jun, 2014 [facility] [place] [facility] [address] [id number] [place] [address]- 7281 Jun, [facility] [place] [facility] [address] [id number] [place] [address]- 5997 May, [facility] [place] [facility] [address] [id number] [place] [address]- 0286 May, [facility] [place] [facility] [address] [facility] [id number] [place] [address]- 2634 May, [facility] [place] [facility] [address] [id number] [place] [address] 2543 May, [facility] [place] [facility] [address] [id number] [address]- 2544 May, [facility] [place] [facility] [address] [id number] [place] [address]- 0101 May, [facility] [place] [facility] [address] [id number] [place] [address]- 2543 May, [facility] [place] [facility] [address] [id number] [place] [address] May, [facility] [place] [facility] [address] [id number] [place] [address] May, [facility] [place] [facility] [address] [id number] [place] [address] May, [facility] [place] [facility] [address] [id number] [place] [address] Apr, [facility] [place] [facility] [address] [id number] [place] [address] Apr, [facility] [place] [facility] [address] [id number] [place] [address] Apr, [facility] [place] [facility] [address] [id number] [place] [address] Apr, [facility] [place] [facility] [address] [id number] [place] [address] Apr, [facility] [place] [facility] [address] [id number] [place] [address] Apr, [facility] [place] [facility] [address] [id number] [place] [address] Apr, [facility] [place] [facility] [address] [id number] [place] [address] Apr, [facility] [place] [facility] [address] [id number] [place] [address] Mar, [facility] [place] [facility] [address] [id number] [place] [address] Mar, [facility] [place] [facility] [address] [id number] [place] [address] Mar, [facility] [place] [facility] [address] [id number] [place] [address] Mar, [facility] [place] [facility] [address] [id number] [place] [address] Mar, [facility] [place] [facility] [address] [id number] [place] [address]- 5839 14 Mar, 2014 [facility] [place] [facility] [address] [id number] [place] [address] Mar, [facility] [place] [facility] [address] [id number] [place] [address] Mar, [facility] [place] [facility] [address] [id number] [place] [address] Mar, [facility] [place] [facility] [address] [id number] [place] [address] 8291 Mar, [facility] [place] [facility] [address] [id number] [place] [address] 5672 Feb, [facility] [place] [facility] [address] [id number] [place] [address] 9314 Feb, [facility] [place] [facility] [address] [id number] [place] [address]- 7126 Feb, [facility] [place] [facility] [address] [id number] [place] [address] 3990 29 Feb, 2014 [facility] [place] [facility] [address] [id number] [place] [address] 3853 Feb, [facility] [place] [facility] [address] [id number] [place] [address] 6600 Feb, [facility] [place] [facility] [address] [id number] [place] [address] 7886 30 Jan, 2013 [facility] [place] [facility] [address] [id number], [place] [address] 30 Sep, 2013 [facility] [place] [facility] [address] [id number] [place] [address]- 2562 24 Jan, 2013 [facility] [place] [facility] [address] [id number] [place] [address]- 2688 24 Jan, 2013 [facility] [place] [facility] [address] [id number] [place] [address]- 9033 19 Jan, 2013 [facility] [place] [facility] [address] [id number] [place] [address]- 0349 19 Jan, 2013 [facility] [place] [facility] [address] [id number] [place] [address] 2546 16 Jan, 2013 [facility] [place] [facility] [address] [id number] [place] [address] 2546 16 Jan, 2013 [facility] [place] [facility] [address] [id number] [place] [address] 2546 16 Jan, 2013 [facility] [place] [facility] [address] [id number] [place] [address] 2541 16 Jan, 2013 [facility] [place] [facility] [address] [id number] [place] [address]- 2270 Jan, [facility] [place] [facility] [address] [id number] [place] [address]- 7637 Jan, [facility] [place] [facility] [address] [id number] [place] [address]- 5164 Dec, [facility] [place] [facility] [address] [id number] [place] [address]- 0299 Dec, [facility] [place] [facility] [address] [id number] [place] [address]- 1651 Dec, [facility] [place] [facility] [address] [id number] [place] [address]- 6174 Dec, [facility] [place] [facility] [address] [id number] [place] [address]- 0377 Dec, [facility] [place] [facility] [address] [id number] [place] [address]- 2823 Dec, [facility] [place] [facility] [address] [id number] [place] [address]- 7551 Nov, [facility] [place] [facility] [address] [id number] [place] [address]- 6095 Nov, [facility] [place] [facility] [address] [id number] [place] [address] Nov, [facility] [place] [facility] [address] [id number] [place] [address]- 7634 Nov, [facility] [place] [facility] [address] [id number] [place] [address]- 7958 Nov, [facility] [place] [facility] [address] [id number] [place] [address]- 7639 Nov, [facility] [place] [facility] [address] [id number] [place] [address]- 0717 Nov, [facility] [place] [facility] [address] [id number] [place] [address]- 6578 Nov, [facility] [place] [facility] [address] [id number] [place] [address]- 7974 Oct, [facility] [place] [facility] [address] [id number] [place] [address]- 0648 Oct, [facility] [place] [facility] [address] [id number] [place] [address]- 7807 Oct, [facility] [place] [facility] [address] [id number] [place] [address]- 0532 Oct, [facility] [place] [facility] [address] [id number] [place] [address]- 4056 September, [facility] [place] [facility] [address] [id number] [place] [address]- 0161 September, [facility] [place] [facility] [address] [id number], [place] [address] September, [facility] [place] [facility] [address] [id number] [place] [address]- 2034 September, [facility] [place] [facility] [address] [id number] [place] [address]- 8811 September, [facility] [place] [facility] [address] [id number] [place] [address] September, [facility] [place] [facility] [address] [id number] [place] [address]- 9972 Aug, [facility] [place] [facility] [address] [id number] [place] [address]- 8570 Aug, [facility] [place] [facility] [address] [id number] [place] [address]- 1394 Aug, [facility] [place] [facility] [address] [id number] [place] [address]- 6752 Aug, [facility] [place] [facility] [address] [id number] [place] [address]- 5364 Aug, [facility] [place] [facility] [address] [id number] [place] [address]- 0881 Aug, [facility] [place] [facility] [address] [id number] [place] [address]- 0132 Aug, [facility] [place] [facility] [address] [id number] [place] [address]- 2412 Aug, [facility] [place] [facility] [address] [id number] [place] [address]- 8405 Jul, [facility] [place] [facility] [address] [id number] [place] [address]- 4573 Jul, [facility] [place] [facility] [address] [facility] [id number] [place] [address]- 5361 Jun, [facility] [place] [facility] [address] [id number] [place] [address]- 2717 Jun, [facility] [place] [facility] [address] [id number] [place] [address]- 3843 Jun, [facility] [place] [facility] [address] [id number] [place] [address]- 2274 Jun, [facility] [place] [facility] [address] [id number] [place] [address]- 3085 Jun, [facility] [place] [facility] [address] [id number] [place] [address]- 0838 May, [facility] [place] [facility] [address] [id number] [place] [address]- 4989 May, [facility] [place] [facility] [address] [id number] [place] [address]- 2207 May, [facility] [place] [facility] [address] [id number] [place] [address]- 0885 May, [facility] [place] [facility] [address] [id number] [place] [address]- 7791 Apr, [facility] [place] [facility] [address] [id number] [place] [address]- 7057 Apr, [facility] [place] [facility] [address] [id number] [place] [address]- 0139 Mar, [facility] [place] [facility] [address] [id number] [place] [address]- 2755 Mar, [facility] [place] [facility] [address] [id number], [place] [address] 7793 Feb, [facility] [place] [facility] [address] [id number] [place] [address]- 2733 Feb, [facility] [place] [facility] [address] [id number], [place] [address]- 6687 Feb, [facility] [place] [facility] [address] [id number], [place] [address]- 7272 Feb, [facility] [place] [facility] [address] [id number], [place] [address]- 1480 Feb, [facility] [place] [facility] [address] [id number] [place] [address]- 7379 Feb, [facility] [place] [facility] [address] [id number], [place] [address]- 0518 Feb, [facility] [place] [facility] [address] [id number] [place] [address]- 1165 Jan, [facility] [place] [facility] [address] [id number] [place] [address]- 0266 Jan, [facility] [address] [id number] [place] [address]- 9477 Dec, [facility] [place] [facility] [address] [id number] [place] [address]- 6221 Dec, [facility] [place] [facility] [address] [id number] [place] [address]- 4429 Dec, [facility] [place] [facility] [address] [id number] [place] [address]- 2220 Dec, [facility] [place] [facility] [address] [id number] [place] [address]- 7143 Dec, [facility] [place] [facility] [address] [id number] [place] [address]- 5288 Nov, [facility] [address] [id number] [place] [address]- 5063 Nov, [facility] [place] [facility] [address] [id number] [place] [address]- 6864 Nov, [facility] [place] [facility] [address] [id number] [place] [address]- 1913 Oct, [facility] [place] [facility] [address] [id number] [place] [address]- 5648 Oct, [facility] [place] [facility] [address] [id number] [place] [address]- 5277 Oct, [facility] [place] [facility] [address] [id number] [place] [address]- 5353 September, [facility] [place] [facility] [address] [id number] [place] [address]- 8411 Aug, [facility] [place] [facility] [address] [id number] [place] [address]- 7518 Aug, [facility] [place] [facility] [address] [id number] [place] [address]- 7046 Aug, [facility] [place] [facility] [address] [id number] [place] [address]- 6326 29 Jul, 2012 [facility] [address] [id number] [place] [address]- 6006 18 Jul, 2012 [facility] [address] [facility] [id number] [place] [address]- 2546 15 Jul, 2012 [facility] [address] [id number] [place] [address] 2546 04 Jul, 2012 [facility] [address] [facility] [id number] [place] [address]- 2546 Jul, [facility] [address] [id number] [place] [address]- 3676 28 Jun, 2012 [facility] [address] [facility] [id number] [place] [address]- 2546 Jun, [facility] [address] [facility] [id number] [place] [address]- 4476 May, [facility] [address] [facility] [id number] [place] [address]- 3716 May, [facility] [address] [id number] [place] [address]- 2216 Apr, [facility] [address] [facility] [id number] [place] [address]- 6516 Apr, [facility] [address] [facility] [id number] [place] [address]- 2546 Mar, [facility] [address] [facility] [id number] [place] [address]- 2546 Mar, [facility] [address] [facility] [id number] [place] [address]- 2546 Mar, [facility] [address] [facility] [id number] [place] [address]- 2546 Mar, [facility] [address] [id number][place] [id number] Feb, [facility] [place] [facility] [address] [id number] [place] [address]- 8421 Feb, [facility] [place] [facility] [address] [id number] [place] [address]- 3603 Feb, [facility] [place] [facility] [address] [facility] [id number] [place] [address]- 4601 Feb, [facility] [place] [facility] [address] [id number] [place] [address]- 6199 Feb, [facility] [place] [facility] [address] [id number] [place] [address]- 0092 Feb, [facility] [place] [facility] [address] [facility] [id number] [place] [address]- 6328 Feb, [facility] [place] [facility] [address] [id number] [place] [address]- 7469 Jan, [facility] [place] [facility] [address] [facility] [id number], [place] [address]- 8781 Jan, [facility] [place] [facility] [address] [id number], [place] [address]- 0942 Dec, [facility] [place] [facility] [address] [facility] [id number], [place] [address]- 2386 Dec, [facility] [place] [facility] [address] [facility] [id number], [place] [address]- 3257 Nov, [facility] [place] [facility] [address] [id number], [place] [address]- 1686 Oct, [facility] [place] [facility] [address] [facility] [id number], [place] [address]- 5416 September, [facility] [place] [facility] [address] [facility] [id number], [place] [address]- 0877 September, [facility] [place] [facility] [address] [facility] [id number], [place] [address]- 3993 September, [facility] [place] [facility] [address] [facility] [id number] [place] [address]- 0646 10 Aug, 2011 [facility] [address] [id number] [place] [address]- 2643 May, [facility] [address] [facility] [id number] [place] [address]- 5136 May, [facility] [address] [facility] [id number], [place] [address]- 2176 Apr, [facility] [address] [id number] [place] [address]- 9059 Apr, [facility] [address] [facility] [id number] [place] [address]- 4852 Apr, [facility] [address] [facility] [id number] [place] [address]- 3066 Apr, [facility] [address] [facility] [id number] [place] [address]- 4224 Apr, [facility] [address] [facility] [id number], [place] [address]- 2382 Mar, [facility] [address] [facility] [id number], [place] [address]- 8759 Feb, [facility] [address] [facility] [id number], [place] [address]- 4443 Feb, [facility] [address] [facility] [id number], [place] [address]- 3497 September, [facility] [address] [facility] [id number], [place] [address]- 0935 Mar, [facility] [address] [facility] [id number], [place] [address]- 4734 14 Feb, 2010 [facility] [address] [facility] [id number], [place] [address]- 4239 Feb, [facility] [address] [facility] [id number], [place] [address]- 6533 Feb, IMMUNIZATIONS No Known Immunizations SOCIAL HISTORY Never Assessed REASON FOR VISIT Hypertension- Jenise Johns rn PLAN OF CARE VITAL SIGNS Height 65 in 2017-12-12 Weight 201 lbs 2017-12-12 Temperature 98.0 degrees Fahrenheit 2017-12-12 Heart Rate 68 bpm 2017-12-12 Respiratory Rate 20 2017-12-12 BMI 33.44 kg/m2 2017-12-12 Blood pressure systolic 110 mmHg 2017-12-12 Blood pressure diastolic 70 mmHg 2017-12-12 MEDICATIONS Medication Instructions Dosage Frequency Start Date End Date Duration Status Namenda 10 MG TAKE ONE TABLET BY MOUTH TWICE DAILY 60 Active Famotidine 20 mg Orally Once a day 1 tablet at bedtime 24h Nov, 30 day(s) Active Lisinopril-Hydrochlorothiazide 20-25 MG Orally Once a day 1 tablet 24h Oct, 30 day(s) Active Cymbalta 30 MG Orally Once a day 3 capsule 24h 30 Active Aricept 5 mg Orally Once a day 1 tablet at bedtime 24h 30 days Active Oxybutynin Chloride 5 MG TAKE ONE TABLET BY MOUTH TWICE DAILY 30 Active Finasteride 5 MG TAKE ONE TABLET BY MOUTH ONCE DAILY 30 Active Flomax 0.4 MG TAKE ONE CAPSULE BY MOUTH ONCE DAILY 30 MINUTES AFTER THE SAME MEAL EACH DAY 30 Active Abilify 5 mg Orally Once a day 1 tablet 24h 30 day(s) Active Trazodone HCl 150 MG Orally Once a day 1 tablet at bedtime 24h 30 days Active RESULTS No Results PROCEDURES Procedure Date Ordered Result Body Site [facility] VISIT ESTABLISHED PATIENT December 12, 2017 INSTRUCTIONS MEDICATIONS ADMINISTERED No Known Medications [...] Hospitalization History foot fracture Hospitalization History [facility]- Back Pain 03/24/2017
--- OUTSIDE RECORDS SUMMARY | 2018-04-10 17:59 | XMS REPORT ---
Author Author CONNER ROCHE Organization [facility], [place] Address [address] [place] [address] Care Team Providers Care Technology Sales Specialist Name Role Phone CONNER ROCHE Unavailable PROBLEMS Type Condition ICD9-CM Code QCU31-WM Code Onset Dates Condition Status SNOMED Code Problem Color blindness H53.50 Active 257464708 Problem Presbyopia of both eyes H52.4 Active 51498638 Problem Nuclear senile cataract of both eyes H25.13 Active 426074149 Problem Astigmatism of both eyes, unspecified type H52.203 Active 25364163 Problem Essential hypertension I10 Active 02622088 Problem Other chronic pain G89.29 Active 65966261 Problem Hypermetropia of both eyes H52.03 Active 36582993 Problem Alzheimer's disease, unspecified G30.9 Active 234859393 Problem 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 Active 884783659 Problem 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 Active 883762245 Problem Gait instability R26.81 Active 23380845 Problem 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 Active 667645973 Problem Arthritis, 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 Active 500797640 Problem PVD (peripheral vascular disease) I73.9 Active 639864271 Problem Alzheimers disease with late onset G30.1 Active 041024587 Problem Hydrocele, unspecified hydrocele type N43.3 Active 68596461 Problem Other acute pulmonary embolism without acute cor pulmonale I26.99 Active 626890433 Problem At high risk for falls Z91.81 Active [id number] Problem Asymptomatic microscopic hematuria R31.21 Active 737903960 Problem Major depressive disorder, single episode, mild F32.0 Active 77394611 Problem Chronic fatigue R53.82 Active 98754555 Problem Benign non-nodular prostatic hyperplasia with lower urinary tract symptoms N40.1 Active 004653492 Problem Transient cerebral ischemia, unspecified transient cerebral ischemia type G45.9 Active 721614716 Problem Renal cyst, left Q61.00 Active 35774304 Problem 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 Active 50164741 Problem Anxiety F41.9 Active 15278294 Problem Overactive bladder N32.81 Active 686340239 Problem Primary insomnia F51.01 Active 198756433 Problem Mixed hyperlipidemia E78.2 Active 771208326 ALLERGIES Substance Reaction Event Type Date Status Vicodin Unknown Drug Allergy Oct, Active Lovastatin had a reaction to a statin but is unsure of which statin it was Drug Allergy Oct, Active Codeine Sulfate Unknown Drug Allergy Oct, Active ENCOUNTERS Encounter Location Date Diagnosis [facility], [place] [id number] [place] [address] 55707- 6385 Dec, [place] [address] 68075- 1731 Dec, [place] [address] 29799- 1098 Dec, Alzheimers disease with late onset G30.1 and 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 [place] [id number] [place] [address] 10155- 7657 Dec, Left flank pain R10.9 and Arthritis, 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 [facility] [place] [id number] [place] [address] 12925- 8771 Dec, [facility] [place] [id number] [place] [address] 04645- 7705 Nov, Essential hypertension I10 and Mixed hyperlipidemia E78.2 [facility] [place] [id number] [place] [address] 00069- 7692 Oct, Edema leg R60.0 [facility] [place] [address] 85802- 1329 September, [facility] [place] [id number] [place] [address] 17807- 7912 September, Alzheimers disease with late onset G30.1 and 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 [facility] [place] [id number] [place] [address] 06161- 6293 September, PVD (peripheral vascular disease) I73.9 ; Major depressive disorder, single episode, mild F32.0 ; Chronic fatigue R53.82 ; Weight gain R63.5 and Arthralgia, unspecified joint M25.50 [facility] [place] [id number] [place] [address] 64169- 9782 Aug, Acute low back pain, unspecified back pain laterality, with sciatica presence unspecified M54.5 [place] [id number] [place] [address] 49167- 1338 Aug, Acute low back pain, unspecified back pain laterality, with sciatica presence unspecified M54.5 [place] [id number] [place] [address] 21984- 9638 Aug, Pain R52 [place] [address] 10684- 4666 Jul, [facility], [place] [id number] [place] [address] 42580- 5579 Jun, [place] [id number] [place] [address] 59377- 3047 07 Jun, 2017 Medicare annual wellness visit, initial Z00.00 ; Mixed hyperlipidemia E78.2 ; Essential hypertension I10 ; Anxiety F41.9 ; Alzheimers disease with late onset G30.1 ; 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 ; Overactive bladder N32.81 ; Primary insomnia F51.01 ; At high risk for falls Z91.81 and Encounter for immunization Z23 [facility], [place] [id number] [place] [address] 52740- 1193 May, [facility] [place] [id number] [place] [address] 18190- 0740 May, Essential hypertension I10 and Transient cerebral ischemia, unspecified transient cerebral ischemia type G45.9 [facility] [id number] [id number] May, Dental examination Z01.20 and Dental caries K02.9 [place] [id number] [place] [address] 58698- 8896 May, [place] [id number] [place] [address] 17957- 3656 May, [place] [address] 12540- 0423 May, Alzheimers disease with late onset G30.1 [place] [id number] [place] [address] 66182- 1651 Apr, [place] [address] 46638- 7040 Apr, Alzheimers disease with late onset G30.1 and 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 [place] [id number] [place] [address] 04663- 8752 Mar, 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 [place] [id number] [place] [address] 52970- 7321 Mar, Mixed hyperlipidemia E78.2 ; Essential hypertension I10 ; Asymptomatic microscopic hematuria R31.21 and Renal cyst, left Q61.00 [place] [id number] [place] [address] 76601- 1982 Mar, [place] [id number] [place] [address] 52995- 4971 Feb, Encounter for immunization Z23 [place] [id number] [place] [address] 64223- 8831 Feb, [place] [id number] [place] [address] 93235- 0869 Feb, [facility] [id number] [place] [address] 91532 -6941 Feb, ANUG (acute necrotizing ulcerative gingivitis) A69.1 [facility], [place] [address] [address]- 1497 Feb, [facility] [place] [id number] [place] [address] 31104- 0870 Feb, 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 [facility] [place] [address], [place] [address]- 4407 Feb, Alzheimers disease with late onset G30.1 and Mild episode of recurrent major depressive disorder F33.0 [facility] [place] [id number] [place] [address] 48196- 9603 Jan, Alzheimers disease with late onset G30.1 [facility] [place] [id number] [place] [address] 82982- 9627 Jan, Gait instability R26.81 [facility] [address] [id number] [place] [address] Jan [facility] [address] [id number] [place] [address] Dec [facility] [place] [id number] [place] [address] 91414- 0196 Dec, [facility] [place] [id number] [place] [address] 30347- 6204 Dec, [facility] [place] [id number] [place] [address] 59731- 4427 Dec, Essential hypertension I10 ; Transient cerebral ischemia, unspecified transient cerebral ischemia type G45.9 and Anxiety F41.9 [facility] [place] [address], [place] [address]- 8561 Dec, Gait instability R26.81 [facility] [place] [id number] [place] [address] 22002- 8978 Dec, [facility] [place] [id number] [place] [address] 14661- 8255 Nov, Alzheimers disease with late onset G30.1 and Mild episode of recurrent major depressive disorder F33.0 [facility] [place] [id number] [place] [address] 67160- 1719 Nov, [facility] [place] [id number] [place] [address] 03367- 1564 Nov, Gait instability R26.81 [facility] [place] [address] 05210- 2816 Nov, Anxiety F41.9 [facility] [place] [id number] [place] [address] 87700- 4297 Nov, [facility] [place] [address] 92832- 6479 Nov, [facility] [place] [id number] [place] [address] 69509- 8612 Oct, Gait instability R26.81 [facility] [place] [address] 58789- 7405 Oct, Anxiety F41.9 [facility] [place] [id number] [place] [address] 34233- 3431 Oct, Gait instability R26.81 [facility] [place] [id number] [place] [address] 38767- 9171 Oct, Gait instability R26.81 [facility] [place] [id number] [place] [address] 72660- 3398 Oct, [facility] [place] [id number] [place] [address] 89809- 7179 Oct, Anxiety F41.9 ; Chronic 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 use Z79.899 ; Encounter for immunization Z23 and Transient cerebral ischemia, unspecified transient cerebral ischemia type G45.9 [facility] [place] [id number] [place] [address] 22395- 0509 September, [facility] [place] [id number] [place] [address] 55610- 4308 September, Gait instability R26.81 [facility] [place] [address], [place] [address]- 8121 September, [facility] [place] [address], [place] [address]- 9635 September, [facility] [place] [address], [place] [address]- 0951 September, [facility] [place] [address], [place] [address]- 6079 September, Alzheimers disease with late onset G30.1 and Mild episode of recurrent major depressive disorder F33.0 [facility] [place] [address], [place] [address]- 9074 September, [facility] [place] [address], [place] [address]- 9533 September, [facility] [place] [address], [place] [address]- 0217 September, [facility] [place] [address], [place] [address]- 9529 September, Mild episode of recurrent major depressive disorder F33.0 [facility] [place] [address], [place] [address]- 2723 Aug, Mild episode of recurrent major depressive disorder F33.0 ; Alzheimers disease with late onset G30.1 ; Other acute pulmonary embolism without acute cor pulmonale I26.99 and Cough R05 [facility] [place] [address], [place] [address]- 4169 Aug, [facility] [place] [address], [place] [address]- 5539 Aug, Gait instability R26.81 [facility] [place] [id number] [address]- 3174 Aug, Alzheimers disease with late onset G30.1 and Mild episode of recurrent major depressive disorder F33.0 [facility] [place] [address], [place] [address]- 5954 Aug, [facility] [place] [id number] [place] [address] 72859- 9015 Aug, 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 [facility] [place] [id number] [place] [address] 06477- 1195 Jul, Alzheimers disease with late onset G30.1 [place] [id number] [place] [address] 46316- 6938 Jul, [place] [id number] [place] [address] 50852- 4053 Jul, 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 [place] [id number] [place] [address] 06570- 3236 Jul, Anxiety F41.9 ; Alzheimers disease with late onset G30.1 and Transient cerebral ischemia, unspecified transient cerebral ischemia type G45.9 [place] [id number] [place] [address] 93948- 1441 Jun, Essential hypertension I10 [place] [id number] [place] [address] 77742- 4435 Jun, [place] [id number] [place] [address] 02920- 8607 Jun, [place] [id number] [place] [address] 60528- 4697 Jun, [place] [id number] [place] [address] 01597- 0738 Jun, Essential hypertension I10 ; Benign non-nodular prostatic hyperplasia with lower urinary tract symptoms N40.1 ; Anxiety F41.9 ; Pain in right knee M25.561 ; Pain in left knee M25.562 and Other chronic pain G89.29 [place] [id number] [place] [address] 52759- 6427 May, [facility] [place] [id number] [place] [address] 49674- 3588 May, [facility] [place] [id number] [place] [address] 65234- 0899 May, [facility] [place] [id number] [place] [address] 40597- 4920 Apr, [facility] [place] [address] 15237- 1391 Mar, [facility] [place] [id number] [place] [address] 29465- 8240 Mar, Mixed hyperlipidemia E78.2 and Essential hypertension I10 [place] [id number] [place] [address] 34472- 7881 Feb, [place] [address] 54152- 4501 Feb, Ingrown nail L60.0 and Onychomycosis B35.1 [place] [id number] [place] [address] 05628- 4318 Feb, Paronychia, left L03.012 [place] [id number] [place] [address] 42263- 9101 Jan, [place] [id number] [place] [address] 00474- 4602 Jan, 2016 Cramps of right lower extremity R25.2 and Mixed hyperlipidemia E78.2 [place] [id number] [place] [address] 88289- 5672 06 Jan, 2016 Cramps of right lower extremity R25.2 ; Essential hypertension I10 ; Mixed hyperlipidemia E78.2 ; Chronic 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 use Z79.899 and Claudication I73.9 [place] [id number] [place] [address] 25272- 4668 Jan, Right leg pain M79.604 [place] [address], [place] [address]- 7304 Dec, [facility] [place] [address], [place] [address]- 5442 Nov, [facility] [place] [address], [place] [address]- 3874 Nov, [facility] [place] [id number] [place] [address] 47769- 3672 Nov, [facility] [place] [address], [place] [address]- 2966 Nov, Dermatofibroma D23.9 [facility] [place] [address] [place] [address] 23593- 7573 Nov, [facility] [place] [address], [place] [address]- 9263 Oct, [facility] [place] [address], [place] [address]- 4783 Oct, [facility] [place] [address], [place] [address]- 8124 September, Benign non-nodular prostatic hyperplasia with lower urinary tract symptoms N40.1 ; Essential hypertension I10 ; Overactive bladder N32.81 and Fatigue, unspecified type R53.83 [facility] [place] [address], [place] [address]- 9087 September, [facility] [place] [address], [place] [address]- 5698 September, [facility] [place] [id number], [place] [address]- 9302 Aug, [facility] [place] [address] 0612 Jul, [facility] [place] [id number], [place] [address]- 7988 Jul, Pelvic pain R10.2 ; Jock itch B35.6 ; Essential hypertension I10 and Hydrocele, unspecified hydrocele type N43.3 [facility] [place] [id number] [place] [address] 02656- 3071 Jun, [facility] [place] [id number] [place] [address] 53179- 1969 Jun, [facility] [place] [id number] [place] [address] 02440- 5652 Jun, Benign non-nodular prostatic hyperplasia with lower urinary tract symptoms N40.1 [facility] [place] [id number] [place] [address] 00531- 5495 Jun, Benign non-nodular prostatic hyperplasia with lower urinary tract symptoms N40.1 [facility] [place] [id number] [place] [address] 36426- 3168 Jun, [facility] [place] [id number] [place] [address] 20004- 3705 May, [facility] [place] [id number] [place] [address] 48113- 0900 Apr, [facility] [place] [id number] [place] [address] 40820- 3427 Apr, [facility] [place] [id number] [place] [address] 73240- 0961 Apr, Other acute pulmonary embolism without acute cor pulmonale I26.99 ; Anxiety F41.9 ; 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 and 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 [facility] [place] [id number] [place] [address] 22263- 7852 Apr, [facility] [place] [id number] [place] [address] 05643- 2291 Apr, [facility] [place] [id number] [place] [address] 31755- 2434 Mar, [facility] [place] [id number] [place] [address] 57837- 8506 Mar, [facility] [place] [address], [place] [address]- 1398 Feb, Cough R05 [facility] [place] [id number] [place] [address] 04172- 2874 Feb, [facility] [place] [address] [place] [address] 68682- 7349 Feb, Encounter for immunization Z23 [facility] [place] [id number] [place] [address] 06531- 9651 Feb, Other and unspecified hyperlipidemia 272.4 [facility] [place] [id number] [place] [address] 81336- 9531 Jan, [facility] [place] [id number] [place] [address] 97909- 2347 Jan, TIA (transient ischemic attack) 435.9 [facility] [place] [id number] [place] [address] 61073- 6600 Dec, [facility] [place] [id number] [place] [address] 26965- 7270 Dec, [facility] [place] [id number] [place] [address] 50076- 6236 Dec, [facility] [place] [address], [place] [address]- 2903 Nov, [facility] [place] [id number] [place] [address] 80826- 9684 Oct, Chronic cough 786.2 [facility] [place] [address], [place] [address]- 0044 Oct, [facility] [place] [id number] [place] [address] 64510- 4308 Oct, [facility] [place] [address], [place] [address]- 1237 Oct, [facility] [place] [address], [place] [address]- 5484 Oct, [facility] [place] [address], [place] [address]- 7244 Oct, Chronic cough 786.2 [facility] [place] [id number] [address]- 8368 Oct, Cough 786.2 ; Hypertension 401.9 ; BPH (benign prostatic hyperplasia) 600.00 ; Other and unspecified hyperlipidemia 272.4 and Hydrocele 603.9 [facility] [place] [address], [place] [address] Oct, [facility], [place] [id number] [place] [address] September, [facility], [place] [id number] [address] Aug, [facility], [place] [id number] [place] [id number] Aug, [facility], [place] [address], [place] [address] Jul, [facility], [place] [address], [place] [address] Jul, [facility], [place] [address], [place] [address] Jul, [facility], [place] [address], [place] [address] Jul, [facility], [place] [address] [address] Jul, [facility], [place] [address] [id number] Jun, [facility], [place] [address], [place] [address] Jun, [facility], [place] [address] [address] [id number], [place] [address] Jun, [facility] [place] [facility] [address] [id number] [place] [address] Jun, [facility] [place] [facility] [address] [id number] [place] [address] Jun, [facility] [place] [facility] [address] [id number] [place] [address] 67[address] Jun, [facility] [place] [facility] [address] [id number] [place] [address] 4[address] Jun, [facility] [place] [facility] [address] [id number] [place] [address] 8484 Jun, [facility] [place] [facility] [address] [id number] [place] [address] 67[address] May, [facility] [place] [facility] [address] [id number] [place] [address]- 0201 May, [facility] [place] [facility] [address] [id number] [place] [address]- 5930 May, [facility] [place] [facility] [address] [id number] [place] [address] 3664 May, [facility] [place] [facility] [address] [id number] [place] [address] 3808 May, [facility] [place] [facility] [address] [id number] [place] [address] 1940 May, [facility] [place] [facility] [address] [id number], [place] [address] May, [facility] [place] [facility] [address] [id number] [place] [address]- 3921 May, [facility] [place] [facility] [address] [id number] [place] [address]- 9536 May, [facility] [place] [facility] [address] [id number], [place] [address] May, [facility] [place] [facility] [address] [id number] [place] [address]- 4719 Apr, [facility] [place] [facility] [address] [id number] [place] [address]- 1724 Apr, [facility] [place] [facility] [address] [id number] [place] [address]- 7645 Apr, [facility] [place] [facility] [address] [id number] [place] [address]- 2393 Apr, [facility] [place] [facility] [address] [id number] [place] [address]- 6519 Apr, [facility] [place] [facility] [address] [id number] [place] [address]- 0020 Apr, [facility] [place] [facility] [address] [id number] [place] [address]- 9109 Apr, [facility] [place] [facility] [address] [id number] [place] [address]- 8381 Apr, [facility] [place] [facility] [address] [id number] [place] [address]- 7951 Mar, [facility] [place] [facility] [address] [id number] [place] [address]- 9514 Mar, [facility] [place] [facility] [address] [id number] [place] [address]- 9803 Mar, [facility] [place] [facility] [address] [id number] [place] [address]- 4074 Mar, [facility] [place] [facility] [address] [id number] [place] [address]- 1517 Mar, [facility] [place] [facility] [address] [id number] [place] [address]- 4660 Mar, [facility] [place] [facility] [address] [id number] [place] [address]- 1451 Mar, [facility] [place] [facility] [address] [id number], [place] [address] Mar, [facility] [place] [facility] [address] [id number] [place] [address]- 3618 Mar, [facility] [place] [facility] [address] [id number] [place] [address]- 6573 Mar, [facility] [place] [facility] [address] [id number] [place] [address]- 8417 30 Feb, 2014 [facility] [place] [facility] [address] [id number] [place] [address]- 3746 30 Feb, 2014 [facility] [place] [facility] [address] [id number] [place] [address]- 5839 Feb, [facility] [place] [facility] [address] [id number] [place] [address]- 9917 29 Feb, 2014 [facility] [place] [facility] [address] [id number] [place] [address]- 2724 Feb, [facility] [place] [facility] [address] [id number] [place] [address]- 9221 14 Feb, 2014 [facility] [place] [facility] [address] [id number] [place] [address]- 3019 30 Jan, 2014 [facility] [place] [facility] [address] [id number] [place] [address]- 1447 30 Jan, 2013 [facility] [place] [facility] [address] [id number] [place] [address]- 9505 24 Jan, 2013 [facility] [place] [facility] [address] [id number], [place] [address] 24 Sep, 2013 [facility] [place] [facility] [address] [id number] [place] [address]- 5089 19 Sep, 2013 [facility] [place] [facility] [address] [id number] [place] [address]- 0332 19 Jan, 2013 [facility] [place] [facility] [address] [id number] [place] [address]- 2174 16 Sep, 2013 [facility] [place] [facility] [address] [id number] [place] [address]- 4118 16 Jan, 2013 [facility] [place] [facility] [address] [id number] [place] [address]- 8596 16 Jan, 2014 [facility] [place] [facility] [address] [id number] [place] [address]- 0646 16 Jan, 2014 [facility] [place] [facility] [address] [id number] [place] [address]- 1082 Jan, [facility] [place] [facility] [address] [id number] [place] [address]- 6873 Jan, [facility] [place] [facility] [address] [id number] [place] [address]- 4982 Dec, [facility] [place] [facility] [address] [id number] [place] [address]- 7557 Dec, [facility] [place] [facility] [address] [id number] [place] [address]- 9510 Dec, [facility] [place] [facility] [address] [id number] [place] [address]- 1679 Dec, [facility] [place] [facility] [address] [id number] [place] [address]- 0304 Dec, [facility] [place] [facility] [address] [id number] [place] [address]- 9510 Dec, [facility] [place] [facility] [address] [id number] [place] [address]- 9159 Nov, [facility] [place] [facility] [address] [id number] [place] [address]- 5748 Nov, [facility] [place] [facility] [address] [id number] [place] [address]- 0428 Nov, [facility] [place] [facility] [address] [id number] [place] [address]- 0077 Nov, [facility] [place] [facility] [address] [id number] [place] [address]- 5152 Nov, [facility] [place] [facility] [address] [id number] [place] [address]- 8154 Nov, [facility] [place] [facility] [address] [id number] [place] [address]- 2015 Nov, [facility] [place] [facility] [address] [id number] [place] [address]- 8800 Nov, [facility] [place] [facility] [address] [id number] [place] [address]- 1211 Oct, [facility] [place] [facility] [address] [id number] [place] [address]- 1268 Oct, [facility] [place] [facility] [address] [id number] [place] [address]- 3297 Oct, [facility] [place] [facility] [address] [id number] [place] [address]- 5833 Oct, [facility] [place] [facility] [address] [id number] [place] [address]- 3047 September, [facility] [place] [facility] [address] [id number] [place] [address]- 7072 September, [facility] [place] [facility] [address] [id number] [place] [address]- 4380 September, [facility] [place] [facility] [address] [id number] [place] [address]- 6257 September, [facility] [place] [facility] [address] [id number] [place] [address]- 3067 September, [facility] [place] [facility] [address] [id number] [place] [address]- 4806 September, [facility] [place] [facility] [address] [id number] [place] [address]- 0828 Aug, [facility] [place] [facility] [address] [id number] [place] [address]- 3484 Aug, [facility] [place] [facility] [address] [id number] [place] [address]- 2090 Aug, [facility] [place] [facility] [address] [id number] [place] [address]- 4857 Aug, [facility] [place] [facility] [address] [id number] [place] [address]- 9424 Aug, [facility] [place] [facility] [address] [id number] [place] [address]- 4879 Aug, [facility] [place] [facility] [address] [id number] [place] [address]- 2794 Aug, [facility] [place] [facility] [address] [id number] [place] [address]- 6739 Aug, [facility] [place] [facility] [address] [id number] [place] [address]- 0596 Jul, [facility] [place] [facility] [address] [id number] [place] [address]- 3295 Jul, [facility] [place] [facility] [address] [id number] [place] [address]- 8419 Jun, [facility] [place] [facility] [address] [id number] [place] [address]- 5849 Jun, [facility] [place] [facility] [address] [facility] [id number] [place] [address]- 0737 Jun, [facility] [place] [facility] [address] [facility] [id number] [place] [address]- 2684 Jun, [facility] [place] [facility] [address] [id number] [place] [address]- 1487 Jun, [facility] [place] [facility] [address] [id number] [place] [address]- 6858 May, [facility] [place] [facility] [address] [id number] [place] [address]- 8188 May, [facility] [place] [facility] [address] [id number] [place] [address]- 2056 May, [facility] [place] [facility] [address] [id number] [place] [address]- 4843 May, [facility] [place] [facility] [address] [id number] [place] 8912 Apr, [facility] [place] [facility] [address] [id number] [place] 5049 Apr, [facility] [place] [facility] [address] [id number] [place] [address]- 2621 Mar, [facility] [place] [facility] [address] [id number] [place] [address]- 1996 Mar, [facility] [place] [facility] [address] [id number] [place] [address]- 1609 Feb, [facility] [place] [facility] [address] [id number] [place] [address]- 3983 Feb, [facility] [place] [facility] [address] [id number] [place] [address]- 5340 Feb, [facility] [place] [facility] [address] [id number] [place] [address]- 6883 Feb, [facility] [place] [facility] [address] [id number] [place] [address]- 1683 Feb, [facility] [place] [facility] [address] [id number] [place] [address]- 3132 Feb, [facility] [place] [facility] [address] [id number], [place] [address]- 8502 Feb, [facility] [place] [facility] [address] [id number] [place] [address]- 1849 Jan, [facility] [place] [facility] [address] [id number] [place] [address]- 4809 Jan, [facility] [place] [facility] [address] [id number] [place] [address]- 0225 Dec, [facility] [place] [facility] [address] [id number] [place] [address]- 5897 Dec, [facility] [place] [facility] [address] [id number] [place] [address]- 7252 Dec, [facility] [place] [facility] [address] [id number] [place] [address]- 5696 Dec, [facility] [place] [facility] [address] [id number] [place] [address]- 9232 Dec, [facility] [place] [facility] [address] [id number] [place] [address]- 3100 Nov, [facility] [place] [facility] [address] [id number] [place] 8535 Nov, [facility] [place] [facility] [address] [id number] [place] [address]- 6224 Nov, [facility] [place] [facility] [address] [id number] [place] [address]- 5776 Oct, [facility] [place] [facility] [address] [id number] [place] [address]- 4797 Oct, [facility] [place] [facility] [address] [id number] [place] [address]- 8434 Oct, [facility] [place] [facility] [address] [id number] [place] [address]- 8097 September, [facility] [place] [facility] [address] [id number] [place] [address]- 7659 Aug, [facility] [place] [facility] [address] [id number] [place] [address]- 4745 Aug, [facility] [place] [facility] [address] [id number] [place] [address]- 8813 Aug, [facility] [place] [facility] [address] [id number] [place] [address]- 3475 Jul, [facility] [place] [facility] [address] [id number] [place] [address]- 6645 Jul, [facility] [place] [facility] [address] [id number] [place] [address]- 2546 15 Jul, 2012 [facility] [address] [id number] [place] [address]- 6536 Jul, [facility] [place] [facility] [address] [id number] [place] [address]- 2546 Jul, [facility] [address] [id number] [place] [address]- 2636 Jun, [facility] [place] [facility] [address] [id number] [place] [address]- 2546 Jun, [facility] [address] [id number] [place] [address]- 6516 May, [facility] [address] [facility] [id number] [place] [address]- 3576 May, [facility] [address] [id number] [place] [address]- 8456 Apr, [facility] [address] [id number] [place] [address]- 6892 Apr, [facility] [address] [facility] [id number] [place] [address]- 3806 Mar, [facility] [address] [facility] [id number] [place] [address]- 6046 Mar, [facility] [address] [facility] [id number] [place] [address]- 2546 Mar, [facility] [address] [facility] [id number] [place] [address]- 2846 Mar, [facility] [address] [id number] [id number] Feb, [facility] [place] [facility] [address] [facility] [id number] [place] [address]- 2426 Feb, [facility] [address] [facility] [id number], [place] [address]- 4556 Feb, [facility] [place] [facility] [address] [id number] [place] [address]- 2022 Feb, [facility] [place] [facility] [address] [id number] [place] [address]- 4134 Feb, [facility] [place] [facility] [address] [id number] [place] [address]- 6596 Feb, [facility] [place] [facility] [address] [id number] [place] [address] 2544 Feb, [facility] [address] [id number] [place] [address]- 8110 Jan, [facility] [place] [facility] [address] [id number] [place] [address]- 4563 Jan, [facility] [address] [id number] [place] [address]- 6483 Dec, [facility] [place] [facility] [address] [id number] [place] [address]- 0833 Dec, [facility] [place] [facility] [address] [id number] [place] [address]- 3433 Nov, [facility] [place] [facility] [address] [id number] [place] [address]- 6851 Oct, [facility] [place] [facility] [address] [id number] [place] [address]- 9796 September, [facility] [place] [facility] [address] [id number], [place] [address]- 2546 September, [facility] [place] [facility] [address] [id number] [place] [address]- 2062 September, [facility] [place] [facility] [address] [id number] [place] [address]- 9831 Aug, [facility] [place] [facility] [address] [id number] [place] [address]- 2546 May, [facility] [place] [facility] [address] [id number], [place] [address]- 7022 May, [facility] [place] [address] [facility] [id number], [place] [address]- 7485 Apr, [facility] [place] [address] [facility] [id number], [place] [address]- 9806 Apr, [facility] [place] [id number], [place] [address]- 5661 Apr, [facility] [place] [address] [facility] [id number], [place] [address]- 4373 Apr, [facility] [place] [address] [facility] [id number], [place] [address]- 7476 Apr, [facility] [place] [address] [id number], [place] [address]- 4142 Mar, [facility] [place] [id number], [place] [address]- 8397 Feb, [facility] [place] [id number], [place] [address]- 0372 Feb, [facility] [place] [id number] 4357 September, [facility] [place] [id number]- 2945 Mar, [facility] [place] [address] [id number], [place] [address]- 2081 Feb, [facility] [place] [address] [id number], [place] [address]- 9154 Feb, [facility] [place] [address] [id number] 4511 Feb, IMMUNIZATIONS No Known Immunizations SOCIAL HISTORY Never Assessed REASON FOR VISIT legs swelling with the left leg and left foot-Mariposa WINSTON PLAN OF CARE Activity Details Follow Up 4 Weeks Reason:edema VITAL SIGNS Height 65 in 2017-10-24 Weight 208.6 lbs 2017-10-24 Temperature 97.9 degrees Fahrenheit 2017-10-24 Heart Rate 105 bpm 2017-10-24 Respiratory Rate 22 2017-10-24 Oximetry on room air:93 % 2017-10-24 BMI 34.71 kg/m2 2017-10-24 Blood pressure systolic 120 mmHg 2017-10-24 Blood pressure diastolic 78 mmHg 2017-10-24 MEDICATIONS Medication Instructions Dosage Frequency Start Date End Date Duration Status Lisinopril-Hydrochlorothiazide 20-25 MG Orally Once a day 1 tablet 24h Oct, 30 day(s) Active Aricept 5 mg Orally Once a day 1 tablet at bedtime 24h 30 days Active Namenda 10 MG Orally Twice a day 1 tablet 12h Active Trazodone HCl 150 MG Orally Once a day 1 tablet at bedtime 24h 30 days Active Abilify 5 mg Orally Once a day 1 tablet 24h 30 day(s) Active Cymbalta 30 MG Orally Once a day 3 capsule 24h 30 Active Flomax 0.4 MG TAKE ONE CAPSULE BY MOUTH ONCE DAILY 30 MINUTES AFTER THE SAME MEAL EACH DAY 30 Active Finasteride 5 MG TAKE ONE TABLET BY MOUTH ONCE DAILY 30 Active Oxybutynin Chloride 5 MG TAKE ONE TABLET BY MOUTH TWICE DAILY 30 Active RESULTS No Results PROCEDURES Procedure Date Ordered Result Body Site [facility] VISIT ESTABLISHED PATIENT October 24, 2017 VENLAMBERTO, ROUTINE* October 24, 2017 [facility], 2017 INSTRUCTIONS MEDICATIONS ADMINISTERED No Known Medications [...] foot fracture Hospitalization History [facility] [place]- Back Pain 03/24/2017
--- OUTSIDE RECORDS SUMMARY | 2018-04-10 18:00 | XMS REPORT ---
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 Name Role Phone TEA WHITNEYCHIKI Unavailable PROBLEMS Type Condition ICD9-CM Code GFM97-TR Code Onset Dates Condition Status SNOMED Code Problem Color blindness H53.50 Active 446400412 Problem Presbyopia of both eyes H52.4 Active 04049154 Problem Nuclear senile cataract of both eyes H25.13 Active 990255288 Problem Astigmatism of both eyes, unspecified type H52.203 Active 39757913 Problem Essential hypertension I10 Active 69353703 Problem Other chronic pain G89.29 Active 50506666 Problem Hypermetropia of both eyes H52.03 Active 24353770 Problem Alzheimer's disease, unspecified G30.9 Active 775080466 Problem 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 Active 750488368 Problem 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 Active 853168164 Problem Gait instability R26.81 Active 15097479 Problem Mild episode of recurrent major depressive disorder F33.0 Active 519398609 Problem Arthritis, 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 Active 934733871 Problem PVD (peripheral vascular disease) I73.9 Active 750800493 Problem Alzheimers disease with late onset G30.1 Active 705988478 Problem Hydrocele, unspecified hydrocele type N43.3 Active 56030463 Problem Other acute pulmonary embolism without acute cor pulmonale I26.99 Active 400031525 Problem At high risk for falls Z91.81 Active [id number] Problem Asymptomatic microscopic hematuria R31.21 Active 203546340 Problem Major depressive disorder, single episode, mild F32.0 Active 29223602 Problem Chronic fatigue R53.82 Active 55875139 Problem Benign non-nodular prostatic hyperplasia with lower urinary tract symptoms N40.1 Active 694640062 Problem Transient cerebral ischemia, unspecified transient cerebral ischemia type G45.9 Active 832091350 Problem Renal cyst, left Q61.00 Active 02739042 Problem 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 Active 89742081 Problem Anxiety F41.9 Active 57779556 Problem Overactive bladder N32.81 Active 826502607 Problem Primary insomnia F51.01 Active 081901648 Problem Mixed hyperlipidemia E78.2 Active 553281596 ALLERGIES No Information ENCOUNTERS Encounter Location Date Diagnosis [place] [address] [address] Dec, [place] [address] 97532- 5245 Dec, Alzheimers disease with late onset G30.1 and Mild episode of recurrent major depressive disorder F33.0 [place] [address] [place] [id number] [place] [address] 94653- 0693 Dec, Left flank pain R10.9 and Arthritis, 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 [place] [address] 12724- 0958 Dec, [place] [address] 16857- 3046 Nov, Essential hypertension I10 and Mixed hyperlipidemia E78.2 [place] [address] [id number] [place] [address] 83769- 4218 Oct, Edema leg R60.0 [place] [address] 58085- 3463 September, [place] [address] 05799- 5659 September, Alzheimers disease with late onset G30.1 and Mild episode of recurrent major depressive disorder F33.0 [place] [address] 40063- 3367 September, PVD (peripheral vascular disease) I73.9 ; Major depressive disorder, single episode, mild F32.0 ; Chronic fatigue R53.82 ; Weight gain R63.5 and Arthralgia, unspecified joint M25.50 [facility] [id number] [place] [address] 95940- 7576 Aug, Acute low back pain, unspecified back pain laterality, with sciatica presence unspecified M54.5 [facility] [address] [id number] [place] [address] 20335- 7352 Aug, Acute low back pain, unspecified back pain laterality, with sciatica presence unspecified M54.5 [facility] [address] [address] [id number] [place] [address] 52425- 3472 Aug, Pain R52 [place] [address] 66254- 0334 Jul, [place] [address] [id number] [place] [address] 67644- 7597 13 Jun, 2017 [place] [address] 29248- 6639 07 Jun, 2017 Mixed hyperlipidemia E78.2 ; Medicare annual wellness visit , initial Z00.00 ; Essential hypertension I10 ; Anxiety F41.9 ; Alzheimers disease with late onset G30.1 ; 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 ; Overactive bladder N32.81 ; Primary insomnia F51.01 ; At high risk for falls Z91.81 and Encounter for immunization Z23 [place] [address] [id number] [place] [address] 52432- 0580 May, [facility] [address] [place] [id number] [place] [address] 96858- 3540 May, Essential hypertension I10 and Transient cerebral ischemia, unspecified transient cerebral ischemia type G45.9 [facility] [id number] [place] [address] [id number] May, Dental examination Z01.20 and Dental caries K02.9 [facility] [address] [place] [id number] [place] [address] 37346- 6403 May, [place] [address] [place] [address]- 4463 May, [facility] [address] [address] [id number] [place] [address] 01185- 0634 May, Alzheimers disease with late onset G30.1 [facility] [address] [address] [id number] [place] [address] 17759- 4933 Apr, [facility] [address] 27026- 1719 Apr, Alzheimers disease with late onset G30.1 and Mild episode of recurrent major depressive disorder F33.0 [place] [address] 15370- 1784 Mar, Mild episode of recurrent major depressive disorder F33.0 [facility] [address] 49246- 6445 Mar, Mixed hyperlipidemia E78.2 ; Essential hypertension I10 ; Asymptomatic microscopic hematuria R31.21 and Renal cyst, left Q61.00 [place] [address] [id number] [place] [address] 57791- 4674 Mar, [facility] [address] 33159- 4663 Feb, Encounter for immunization Z23 [facility] [address] 83956- 4874 Feb, [facility] [address] [place] [id number] [place] [address] 88232- 0001 Feb, [facility] [address] [id number] [place] [address] 37075 -4814 Feb, ANUG (acute necrotizing ulcerative gingivitis) A69.1 [facility] [address] [id number] [place] [address] 11553- 9490 Feb, [facility] [address] [address] [id number] [place] [address] 77691- 6480 Feb, Mild episode of recurrent major depressive disorder F33.0 [facility] [id number] [address]- 4707 Feb, Alzheimers disease with late onset G30.1 and Mild episode of recurrent major depressive disorder F33.0 [facility] [id number] [address]- 8397 Jan, Alzheimers disease with late onset G30.1 [facility] [id number] [address]- 6354 Jan, Gait instability R26.81 [facility] [id number] [address] Jan [facility] [place] [address] [id number] [place] [address] Dec [facility] [address] [address]- 0474 Dec, [facility] [address] [place] [id number] [place] [address] 35285- 4530 Dec, [facility] [address] [place] [address] 55836- 7093 Dec, Essential hypertension I10 ; Transient cerebral ischemia, unspecified transient cerebral ischemia type G45.9 and Anxiety F41.9 [facility] [address], [place] [address]- 7639 Dec, Gait instability R26.81 [facility] [address] [place] [id number] [address]- 5931 Dec, [facility] [address] [place] [id number] [address]- 7930 Nov, Alzheimers disease with late onset G30.1 and Mild episode of recurrent major depressive disorder F33.0 [facility] [address], [place] [address]- 5937 Nov, [facility] [address] [place] [id number] [place] [address] 79986- 8371 Nov, Gait instability R26.81 [facility] [address] [address] [id number] [place] [address] 06600- 8742 Nov, Anxiety F41.9 [facility] [address] [id number] [place] [address] 10697- 3188 Nov, [facility] [address] [id number] [place] [address] 74689- 3053 Nov, [facility] [id number] [place] [address] 75333- 3411 Oct, Gait instability R26.81 [facility] [address] [id number] [place] [address] 97172- 0293 Oct, Anxiety F41.9 [facility] [address] [id number] [place] [address] 87329- 8118 Oct, Gait instability R26.81 [facility] [address] [id number] [place] [address] 79065- 5422 Oct, Gait instability R26.81 [facility] [address] [id number] [place] [address] 05590- 9140 Oct, [facility] [address] [address] [id number] [place] [address] 44490- 9086 Oct, Anxiety F41.9 ; Chronic 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 use Z79.899 ; Encounter for immunization Z23 and Transient cerebral ischemia, unspecified transient cerebral ischemia type G45.9 [facility] [address] [id number] [place] [address] 04200- 6638 September, [facility] [address] [id number] [place] [address] 70716- 1480 September, Gait instability R26.81 [facility] [address] [address] [id number] [place] [address] 77964- 0483 September, [facility] [address] [address] [id number] [place] [address] 20185- 0233 September, [facility] [address], [place] [address]- 2803 September, [facility] [id number] [place] [address] 07951- 4441 September, Alzheimers disease with late onset G30.1 and Mild episode of recurrent major depressive disorder F33.0 [facility] [address], [place] [address]- 5718 September, [facility] [address], [place] [address]- 3598 September, [facility] [id number] [place] [address] 84640- 7445 September, [facility] [address], [place] [address]- 9892 September, Mild episode of recurrent major depressive disorder F33.0 [facility] [id number] [address]- 1215 Aug, Mild episode of recurrent major depressive disorder F33.0 ; Alzheimers disease with late onset G30.1 ; Other acute pulmonary embolism without acute cor pulmonale I26.99 and Cough R05 [facility] [address], [place] [address]- 9162 Aug, [facility] [address], [place] [address]- 8350 Aug, Gait instability R26.81 [facility] [address], [place] [address]- 0628 Aug, Alzheimers disease with late onset G30.1 and Mild episode of recurrent major depressive disorder F33.0 [facility] [address], [place] [address]- 2340 Aug, [facility] [address], [place] [address]- 5190 Aug, 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 [place] [address], [place] [address]- 5075 Jul, Alzheimers disease with late onset G30.1 [facility] [id number] [place] [address] 56469- 3508 Jul, [facility] [id number] [place] [address] 61870- 9376 Jul, 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 [facility] [address] [id number] [place] [address] 80719- 8703 Jul, Anxiety F41.9 ; Alzheimers disease with late onset G30.1 and Transient cerebral ischemia, unspecified transient cerebral ischemia type G45.9 [facility] [address] [id number] [place] [address] 95219- 2699 Jun, Essential hypertension I10 [facility] [address] [id number] [place] [address] 69338- 5044 Jun, [facility] [address] [address] [id number] [place] [address] 53785- 1571 Jun, [facility] [address] [id number] [place] [address] 56587- 7441 Jun, [facility] [address] [id number] [place] [address] 77659- 0215 Jun, Essential hypertension I10 ; Benign non-nodular prostatic hyperplasia with lower urinary tract symptoms N40.1 ; Anxiety F41.9 ; Pain in right knee M25.561 ; Pain in left knee M25.562 and Other chronic pain G89.29 [facility] [address] [id number] [place] [address] 90418- 8636 May, [facility] [address] [id number] [place] [address] 91462- 8465 May, [facility] [id number] [place] [address] 55484- 6741 May, [place] [address] [id number] [place] [address] 96131- 2969 Apr, [facility] [id number] [place] [address] 81961- 1240 Mar, [facility] [address] [id number] [place] [address] 44114- 0879 Mar, Mixed hyperlipidemia E78.2 and Essential hypertension I10 [facility] [address] 78585- 1861 Feb, [facility] [address] 38273- 6301 Feb, Ingrown nail L60.0 and Onychomycosis B35.1 [place] [address] [id number] [place] [address] 01177- 4910 Feb, Paronychia, left L03.012 [facility] [address] [id number] [place] [address] 14501- 8743 Jan, [facility] [address] [id number] [place] [address] 77229- 2094 07 Jan, 2016 Mixed hyperlipidemia E78.2 and Cramps of right lower extremity R25.2 [place] [address] [id number] [place] [address] 16074- 9278 Jan, Cramps of right lower extremity R25.2 ; Essential hypertension I10 ; Mixed hyperlipidemia E78.2 ; Chronic 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 use Z79.899 and Claudication I73.9 [facility] [id number] [place] [address] 21282- 8741 Jan, Right leg pain M79.604 [place] [address] [id number] [place] [address] 68324- 4463 Dec, [facility] [id number] [place] [address] 71597- 9922 Nov, [facility] [id number] [place] [address] 51125- 7871 Nov, [facility] [address], [place] [address]- 3415 Nov, [facility] [address] [place] [address] 46447- 1741 Nov, Dermatofibroma D23.9 [facility] [id number] [place] [address] 98091- 5381 Nov, [facility] [id number] [place] [address] 23114- 8968 Oct, [facility] [id number] [place] [address] 99317- 6116 Oct, [facility] [id number] [place] [address] 57356- 8671 September, Benign non-nodular prostatic hyperplasia with lower urinary tract symptoms N40.1 ; Essential hypertension I10 ; Overactive bladder N32.81 and Fatigue, unspecified type R53.83 [facility] [id number] [place] [address] 84464- 7056 September, [facility] [id number] [place] [address] 32419- 7510 September, [facility] [address] [place] [address] 54674- 5417 Aug, [facility] [id number] [place] [address] 54309- 1059 Jul, [facility] [id number] [place] [address] 03037- 0924 Jul, Pelvic pain R10.2 ; Jock itch B35.6 ; Essential hypertension I10 and Hydrocele, unspecified hydrocele type N43.3 [facility] [address], [place] [address]- 2205 Jun, [facility] [id number] [place] [address] 62312- 1007 Jun, [facility] [address] [place] [address] 56004- 6948 Jun, Benign non-nodular prostatic hyperplasia with lower urinary tract symptoms N40.1 [facility] [id number] [place] [address] 18971- 4659 Jun, Benign non-nodular prostatic hyperplasia with lower urinary tract symptoms N40.1 [facility] [id number] [place] [address] 62793- 8238 Jun, [facility] [id number] [place] [address] 90919- 6303 May, [facility] [id number] [place] [address] 81976- 0156 Apr, [facility] [id number] [place] [address] 69110- 1397 Apr, [facility] [id number] [place] [address] 11815- 2692 Apr, Other acute pulmonary embolism without acute cor pulmonale I26.99 ; Anxiety F41.9 ; 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 and oysterman 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 use Z79.899 [facility] [address] [place] [address] 42895- 4581 Apr, [facility] [id number] [place] [address] 22732- 8817 Apr, [facility] [id number] [place] [address] 07754- 5346 Mar, [facility] [id number] [place] [address] 46353- 0807 Mar, [facility] [id number] [place] [address] 10928- 7862 Feb, Cough R05 [facility] [id number] [place] [address] 18455- 5696 Feb, [facility] [address], [place] [address]- 8692 Feb, Encounter for immunization Z23 [facility] [id number] [place] [address] 22754- 5876 Feb, Other and unspecified hyperlipidemia 272.4 [facility] [id number] [place] [address] 24565- 7205 Jan, [facility] [id number] [place] [address] 15528- 1352 Jan, TIA (transient ischemic attack) 435.9 [facility] [id number] [place] [address] 69577- 4406 Dec, [facility] [id number] [place] [address] 09307- 7706 Dec, [facility] [id number] [place] [address] 12785- 3269 Dec, [facility] [address] [place] [address] 59552- 5521 Nov, [facility] [id number] [place] [address] 83956- 3596 Oct, Chronic cough 786.2 [facility] [address], [place] [address]- 5049 Oct, [facility] [address] [place] [address] 41170- 8289 Oct, [facility] [address], [place] [address]- 7900 Oct, [facility] [id number] [place] [address] 20239- 2933 Oct, [facility] [address], [place] [address]- 3318 Oct, Chronic cough 786.2 [facility] [address] [address]- 0528 Oct, Cough 786.2 ; Hypertension 401.9 ; BPH (benign prostatic hyperplasia) 600.00 ; Other and unspecified hyperlipidemia 272.4 and Hydrocele 603.9 [facility] [address], [place] [address]- 3812 Oct, [facility] [id number] [place] [address] 336853- 4382 September, [facility] [id number] [place] [address] 74159- 3684 Aug, [facility] [id number] [place] [address] 500188- 0584 Aug, [facility] [id number] [place] [address] 41199- 2491 Jul, [facility] [id number] [place] [address] 90386- 8236 Jul, [facility] [address], [place] [address]- 8900 Jul, [facility] [address] [address]- 1805 Jul, [facility] [address], [place] [address]- 9309 Jul, [facility] [address] 2432 Jun, [facility] [address] 6680 Jun, [facility] [id number] [address]- 1539 Jun, [facility] [address] 7166 Jun, [facility] [id number] 9786 Jun, [facility] [place] [facility] [address] [id number] [place] [address]- 7789 Jun, [facility] [place] [facility] [address] [id number] [place] [address]- 8359 Jun, [facility] [place] [facility] [address] [id number] [place] [address]- 4445 Jun, [facility] [place] [facility] [address] [id number] [place] [address]- 7814 May, [facility] [place] [facility] [address] [id number] [place] [address]- 1351 May, [facility] [place] [facility] [address] [id number] [place] [address]- 0079 May, [facility] [place] [facility] [address] [id number] [place] [address]- 1348 May, [facility] [place] [facility] [address] [id number] [place] [address]- 8128 May, [facility] [place] [facility] [address] [id number] [place] [address]- 4363 May, [facility] [place] [facility] [address] [id number] [place] [address]- 8504 May, [facility] [place] [facility] [address] [id number], [place] [address] May, [facility] [place] [facility] [address] [id number], [place] [address] May, [facility] [place] [facility] [address] [id number] [place] [address] May, [facility] [place] [facility] [address] [id number] [place] [address] Apr, [facility] [place] [facility] [address] [id number] [place] [address] Apr, [facility] [place] [facility] [address] [id number] [place] [address] Apr, [facility] [place] [facility] [address] [id number] [place] [address] Apr, [facility] [place] [facility] [address] [id number] [place] [address] Apr, [facility] [place] [facility] [address] [id number] [id number] [address] Apr, [facility] [place] [facility] [address] [id number] [place] [address] Apr, [facility] [place] [facility] [address] [id number] [place] [address] Apr, [facility] [place] [facility] [address] [id number] [place] [address] Mar, [facility] [place] [facility] [address] [id number] [place] [address] Mar, [facility] [place] [facility] [address] [id number] [place] [address] Mar, [facility] [place] [facility] [address] [id number] [place] [address] Mar, [facility] [place] [facility] [address] [facility] [id number] [place] [address] Mar, [facility] [place] [facility] [address] [id number] [place] [address] Mar, [facility] [place] [facility] [address] [id number], [place] [address] Mar, [facility] [place] [facility] [address] [id number] [place] [address] Mar, [facility] [place] [facility] [address] [id number] [place] [address] Mar, [facility] [place] [facility] [address] [id number] [place] [address] Mar, [facility] [place] [facility] [address] [id number] [place] [address] 30 Feb, 2014 [facility] [place] [facility] [address] [id number] [place] [address] 30 Feb, 2014 [facility] [place] [facility] [address] [id number] [place] [address] 29 Feb, 2014 [facility] [place] [facility] [address] [id number] [place] [address] 2697 29 Feb, 2014 [facility] [place] [facility] [address] [id number] [place] [address] 3[address] Feb, [facility] [place] [facility] [address] [id number] [place] [address] Feb, [facility] [place] [facility] [address] [id number] [place] [address] 4813 30 Jan, 2013 [facility] [place] [facility] [address] [id number] [place] [address] 3141 30 Jan, 2013 [facility] [place] [facility] [address] [id number] [place] [address]- 7166 24 Jan, 2013 [facility] [place] [facility] [address] [id number] [place] [address]- 8771 24 Jan, 2013 [facility] [place] [facility] [address] [id number] [place] [address]- 8820 19 Jan, 2013 [facility] [place] [facility] [address] [id number] [place] [address]- [address]40 19 Sep, 2013 [facility] [place] [facility] [address] [id number] [place] [address]- 2549 16 Sep, 2013 [facility] [place] [facility] [address] [id number] [place] [address]- 2544 16 Sep, 2013 [facility] [place] [facility] [address] [id number] [place] [address]- 6466 16 Sep, 2013 [facility] [place] [facility] [address] [id number] [place] [address]- 4[address] Jan, [facility] [place] [facility] [address] [id number] [place] [address] 7609 Jan, [facility] [place] [facility] [address] [id number] [place] [address]- 1375 Jan, [facility] [place] [facility] [address] [id number] [place] [address]- 6435 Dec, [facility] [place] [facility] [address] [id number] [place] [address]- 7267 Dec, [facility] [place] [facility] [address] [id number] [place] [address]- 8372 Dec, [facility] [place] [facility] [address] [id number] [place] [address]- 3750 Dec, [facility] [place] [facility] [address] [id number] [place] [address]- 6305 Dec, [facility] [place] [facility] [address] [id number] [place] [address]- 9790 Dec, [facility] [place] [facility] [address] [id number] [place] [address]- 3393 Nov, [facility] [place] [facility] [address] [id number] [place] [address]- 2482 Nov, [facility] [place] [facility] [address] [id number] [place] [address]- 2878 Nov, [facility] [place] [facility] [address] [id number] [place] [address]- 8493 Nov, [facility] [place] [facility] [address] [id number] [place] [address]- 8205 Nov, [facility] [place] [facility] [address] [id number] [place] [address]- 1653 Nov, [facility] [place] [facility] [address] [id number] [place] [address]- 3542 Nov, [facility] [place] [facility] [address] [id number] [place] [address]- 7553 Nov, [facility] [address] [id number] [place] [address]- 3277 Oct, [facility] [place] [facility] [address] [id number] [place] [address]- 7578 Oct, [facility] [address] [id number] [place] [address]- 0897 Oct, [facility] [place] [facility] [address] [id number] [place] [address]- 7404 Oct, [facility] [address] [id number] [place] [address]- 2168 September, [facility] [place] [facility] [address] [id number] [place] [address]- 6032 September, [facility] [place] [facility] [address] [id number] [place] [address]- 0044 September, [facility] [address] [id number] [place] [address]- 0803 September, [facility] [place] [facility] [address] [id number] [place] [address]- 7730 September, [facility] [address] [id number] [place] [address]- 2486 September, [facility] [place] [facility] [address] [id number] [place] [address]- 6774 Aug, [facility] [place] [facility] [address] [id number] [place] [address]- 1514 Aug, [facility] [place] [facility] [address] [id number] [place] [address]- 6593 Aug, [facility] [place] [facility] [address] [id number] [place] [address]- 8702 Aug, [facility] [place] [facility] [address] [id number] [place] [address]- 4223 Aug, [facility] [place] [facility] [address] [id number] [place] [address]- 8293 Aug, [facility] [place] [facility] [address] [id number] [place] [address]- 9485 Aug, [facility] [place] [facility] [address] [id number] [place] [address]- 0578 Aug, [facility] [place] [facility] [address] [id number] [place] [address]- 7664 Jul, [facility] [place] [facility] [address] [id number] [place] [address]- 6867 Jul, [facility] [place] [facility] [address] [id number] [place] [address]- 7951 Jun, [facility] [place] [facility] [address] [id number] [place] [address]- 6856 Jun, [facility] [place] [facility] [address] [id number] [place] [address]- 8964 Jun, [facility] [place] [facility] [address] [id number] [place] [address]- 7010 Jun, [facility] [place] [facility] [address] [id number] [place] [address]- 3412 Jun, [facility] [place] [facility] [address] [id number] [place] [address]- 4492 May, [facility] [place] [facility] [address] [id number] [place] [address]- 9258 May, [facility] [place] [facility] [address] [id number] [place] [address]- 4831 May, [facility] [place] [facility] [address] [id number] [place] [address]- 3523 May, [facility] [place] [facility] [address] [id number] [place] [address]- 9189 Apr, [facility] [place] [facility] [address] [id number] [place] [address]- 3965 Apr, [facility] [place] [facility] [address] [id number] [place] [address]- 8486 Mar, [facility] [place] [facility] [address] [id number] [place] [address] Mar, [facility] [place] [facility] [address] [id number] [place] [address]- 8426 Feb, [facility] [place] [facility] [address] [id number] [place] [address]- 0806 Feb, [facility] [place] [facility] [address] [id number] [place] [address]- 8838 Feb, [facility] [place] [facility] [address] [id number] [place] [address]- 3524 Feb, [facility] [place] [facility] [address] [id number] [place] [address]- 7177 Feb, [facility] [place] [facility] [address] [id number] [place] [address]- 0060 Feb, [facility] [place] [facility] [address] [id number] [place] [address]- 3849 Feb, [facility] [place] [facility] [address] [id number] [place] [address]- 0354 Jan, [facility] [place] [facility] [address] [id number] [place] [address]- 6478 03 Jan, 2013 [facility] [place] [facility] [address] [id number] [place] [address]- 0916 16 Dec, 2012 [facility] [place] [facility] [address] [id number] [place] [address]- 6493 Dec, [facility] [place] [facility] [address] [id number] [place] [address] 15 Dec, 2012 [facility] [place] [facility] [address] [id number] [place] [address]- 1723 Dec, [facility] [place] [facility] [address] [id number] [place] [address]- 4523 Dec, [facility] [address] [id number] [place] [address]- 8437 Nov, [facility] [address] [id number] [place] [address]- 2546 Nov, [facility] [address] [id number] [place] [address]- 254 Nov, [facility] [address] [id number] [place] [address]- 2756 Oct, [facility] [address] [id number] [place] [address]- 1556 Oct, [facility] [address] [id number] [place] [address]- 7389 Oct, [facility] [address] [id number] [place] [address]- 1982 September, [facility] [address] [id number] [place] [address]- 6752 Aug, [facility] [address] [id number] [place] [address]- 2805 Aug, [facility] [address] [id number] [place] [address]- 2548 Aug, [facility] [address] [id number] [place] [address]- 2545 Jul, [facility] [place] [facility] [address] [id number] [place] [address]- 2544 Jul, [facility] [place] [facility] [address] [id number] [place] [address]- 2546 15 Jul, 2012 [facility] [place] [facility] [address] [id number] [place] [address]- 2546 Jul, [facility] [place] [facility] [address] [id number], [place] [address]- 9506 Jul, [facility] [address] [id number] [place] [address]- 8276 Jun, [facility] [address] [id number], [place] [address]- 8346 Jun, [facility] [address] [facility] [id number] [place] [address]- 2546 May, [facility] [place] [facility] [address] [id number], [place] [address]- 1786 May, [facility] [address] [id number] [place] [address]- 1385 Apr, [facility] [address] [facility] [id number] [place] [address]- 6060 Apr, [facility] [address] [id number], [place] [address]- 4242 Mar, [facility] [address] [id number], [place] [address]- 7755 Mar, [facility] [address] [id number], [place] [address]- 3654 Mar, [facility] [address] [id number], [place] [address]- 5802 Mar, [facility] [place] [id number] [id number] Feb, [facility] [place] [facility] [address] [id number], [place] [address]- 5142 Feb, [facility] [place] [facility] [address] [facility] [id number], [place] [address]- 3419 Feb, [facility] [place] [facility] [address] [facility] [id number], [place] [address]- 7136 Feb, [facility] [place] [facility] [address] [facility] [id number], [place] [address]- 1586 Feb, [facility] [place] [facility] [address] [facility] [id number] [place] [address]- 3585 Feb, [facility] [address] [id number] [place] [address]- 1455 Feb, [facility] [address] [id number] [place] [address]- 2606 Jan, [facility] [address] [id number] [place] [address]- 9826 Jan, [facility] [address] [id number] [place] [address] 2546 Dec, [facility] [address] [id number] [place] [address]- 9562 Dec, [facility] [address] [id number] [place] [address]- 8183 Nov, [facility] [address] [id number] [place] [address]- 5978 Oct, [facility] [address] [id number] [place] [address]- 4895 September, [facility] [address] [id number] [place] [address]- 0441 September, [facility] [address] [id number] [place] [address]- 3030 September, [facility] [address] [id number] [place] [address]- 4630 Aug, [facility] [address] [id number] [place] [address]- 9856 May, [facility] [address] [id number] [place] [address]- 6886 May, [facility] [address] [id number] [place] [address] 2548 Apr, [facility] [address] [id number] [place] [address]- 6770 Apr, [facility] [address] [facility] [id number] [address]12 Apr, [facility] [address] [facility] [id number][place] [address]606 Apr, [facility] [address] [facility] [id number], [place] [address]- 9346 Apr, [facility] [address] [facility] [id number], [place] [address]- 2355 Mar, [facility] [address] [facility] [id number], [place] [address]- 6877 Feb, [facility] [address] [facility] [id number], [place] [address]- 3449 Feb, [facility] [address] [facility] [id number], [place] [address]- 8494 September, [facility] [address] [facility] [id number], [place] [address]- 5711 Mar, [facility] [address] [facility] [id number], [place] [address]- 0062 Feb, [facility] [address] [facility] [id number], [place] [address]- 3387 Feb, [facility] [address] [facility] [id number], [place] [address]- 3735 Feb, IMMUNIZATIONS No Known Immunizations SOCIAL HISTORY Never Assessed REASON FOR VISIT f/u [facility] PLAN OF CARE Activity Details Follow Up 3 Months Reason: VITAL SIGNS MEDICATIONS Medication Instructions Dosage Frequency Start Date End Date Duration Status Cymbalta 30 MG Orally Once a day [...] PROCEDURES Procedure Date Ordered Result Body Site [facility] VISIT ESTABLISHED PATIENT September 19, 2017 INSTRUCTIONS MEDICATIONS ADMINISTERED No Known Medications [...] foot fracture Hospitalization History Via [facility]- Back Pain 03/24/2017
--- OUTSIDE RECORDS SUMMARY | 2018-04-10 18:00 | XMS REPORT ---
Author Author CONNER ROCHE Organization [facility] Address [address] [place] [address] Care Team Providers Care Customer Service Voice Name Role Phone CONNER ROCHE Unavailable PROBLEMS Type Condition ICD9-CM Code FIX93-TE Code Onset Dates Condition Status SNOMED Code Problem Color blindness H53.50 Active 886225193 Problem Presbyopia of both eyes H52.4 Active 14324407 Problem Nuclear senile cataract of both eyes H25.13 Active 767192154 Problem Astigmatism of both eyes, unspecified type H52.203 Active 88325212 Problem Essential hypertension I10 Active 12144585 Problem Other chronic pain G89.29 Active 13003695 Problem Hypermetropia of both eyes H52.03 Active 00070952 Problem Alzheimer's disease, unspecified G30.9 Active 144399270 Problem 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 Active 413673594 Problem 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 Active 404337786 Problem Gait instability R26.81 Active 71378109 Problem Mild episode of recurrent major depressive disorder F33.0 Active 593501191 Problem Arthritis, 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 Active 708444697 Problem PVD (peripheral vascular disease) I73.9 Active 191571207 Problem Alzheimers disease with late onset G30.1 Active 870751157 Problem Hydrocele, unspecified hydrocele type N43.3 Active 15525277 Problem Other acute pulmonary embolism without acute cor pulmonale I26.99 Active 938797779 Problem At high risk for falls Z91.81 Active [id number] Problem Asymptomatic microscopic hematuria R31.21 Active 975216963 Problem Major depressive disorder, single episode, mild F32.0 Active 77085413 Problem Chronic fatigue R53.82 Active 33527945 Problem Benign non-nodular prostatic hyperplasia with lower urinary tract symptoms N40.1 Active 678966910 Problem Transient cerebral ischemia, unspecified transient cerebral ischemia type G45.9 Active 771692567 Problem Renal cyst, left Q61.00 Active 03621268 Problem 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 Active 36251208 Problem Anxiety F41.9 Active 16858929 Problem Overactive bladder N32.81 Active 453912877 Problem Primary insomnia F51.01 Active 311928431 Problem Mixed hyperlipidemia E78.2 Active 689017043 ALLERGIES No Information ENCOUNTERS Encounter Location Date Diagnosis [place] [id number] [place] [address] 03527- 3474 Dec, [facility] [id number] [place] [address] 50267- 3211 Dec, [facility] [address] 41160- 6954 Dec, Alzheimers disease with late onset G30.1 and Mild episode of recurrent major depressive disorder F33.0 [facility] [id number] [place] [address] 52533- 3876 Dec, Left flank pain R10.9 and Arthritis, 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 [facility] [id number] [place] [address] 55614- 3599 Dec, [facility] [id number] [place] [address] 78906- 8945 Nov, Essential hypertension I10 and Mixed hyperlipidemia E78.2 [facility] [id number] [place] [address] 65712- 2147 Oct, Edema leg R60.0 [facility] [facility] [id number] [place] [address] 22913- 4422 September, [facility] [id number] [place] [address] 98543- 2963 September, Alzheimers disease with late onset G30.1 and Mild episode of recurrent major depressive disorder F33.0 [facility] [id number] [place] [address] 14085- 5361 September, PVD (peripheral vascular disease) I73.9 ; Major depressive disorder, single episode, mild F32.0 ; Chronic fatigue R53.82 ; Weight gain R63.5 and Arthralgia, unspecified joint M25.50 [facility] [facility] [address] 19153- 5961 Aug, Acute low back pain, unspecified back pain laterality, with sciatica presence unspecified M54.5 [place] [address] 06012- 2604 Aug, Acute low back pain, unspecified back pain laterality, with sciatica presence unspecified M54.5 [place] [address] 71532- 6608 Aug, Pain R52 [place] [address] 09325- 2626 Jul, [place] [address] 61303- 4545 Jun, [place] [address] 90987- 4127 Jun, Medicare annual wellness visit, initial Z00.00 ; Mixed hyperlipidemia E78.2 ; Essential hypertension I10 ; Anxiety F41.9 ; Alzheimers disease with late onset G30.1 ; 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 ; Overactive bladder N32.81 ; Primary insomnia F51.01 ; At high risk for falls Z91.81 and Encounter for immunization Z23 [facility] [id number] [place] [address] 72751- 8963 May, [place] [address] 29842- 5039 May, Essential hypertension I10 and Transient cerebral ischemia, unspecified transient cerebral ischemia type G45.9 [facility] [id number] [place] [address] [id number] May, Dental examination Z01.20 and Dental caries K02.9 [place] [id number] [place] [address] 15478- 6662 May, [facility] [id number] [place] [address] 34806- 4324 May, [facility] [id number] [place] [address] 05075- 8220 May, Alzheimers disease with late onset G30.1 [facility] [id number] [place] [address] 08377- 9283 Apr, [facility] [id number] [place] [address] 04311- 1825 Apr, Alzheimers disease with late onset G30.1 and Mild episode of recurrent major depressive disorder F33.0 [place] [id number] [place] [address] 84659- 7278 Mar, Mild episode of recurrent major depressive disorder F33.0 [place] [id number] [place] [address] 08122- 7760 Mar, Mixed hyperlipidemia E78.2 ; Essential hypertension I10 ; Asymptomatic microscopic hematuria R31.21 and Renal cyst, left Q61.00 [place] [id number] [place] [address] 80744- 0111 Mar, [place] [id number] [place] [address] 36699- 4821 Feb, Encounter for immunization Z23 [facility] [id number] [place] [address] 69353- 1823 Feb, [facility] [id number] [place] [address] 64154- 6158 Feb, [facility] [address] 83837 -8434 Feb, ANUG (acute necrotizing ulcerative gingivitis) A69.1 [facility] [id number] [place] [address] 72867- 1219 Feb, [facility] [address] [place] [address]- 2245 Feb, Mild episode of recurrent major depressive disorder F33.0 [facility] [id number] [place] [address] 59633- 6101 Feb, Alzheimers disease with late onset G30.1 and Mild episode of recurrent major depressive disorder F33.0 [facility] [address] [address]- 6913 Jan, Alzheimers disease with late onset G30.1 [facility] [address] [address]- 8623 Jan, Gait instability R26.81 [facility] [address] [id number] [place] [address] Jan [facility] [address] [id number] [place] [address] Dec [facility] [id number] [place] [address] 41894- 3526 Dec, [facility] [address] [address]- 8588 Dec, [facility] [id number] [place] [address] 25087- 2255 Dec, Essential hypertension I10 ; Transient cerebral ischemia, unspecified transient cerebral ischemia type G45.9 and Anxiety F41.9 [facility] [id number] [place] [address] 22976- 9209 Dec, Gait instability R26.81 [facility] [address] [address]- 8455 Dec, [facility] [id number] [place] [address] 13424- 6308 Nov, Alzheimers disease with late onset G30.1 and Mild episode of recurrent major depressive disorder F33.0 [facility] [address] [address]- 6981 Nov, [facility] [address] [id number] [address] 8138 Nov, Gait instability R26.81 [facility] [address] [facility] [id number] [place] [address] 86783- 0609 Nov, Anxiety F41.9 [facility] [address] [facility] [id number] [address]- 4787 Nov, [facility] [address] [facility] [id number] [place] [address] 28158- 8954 Nov, [facility] [address] [facility] [id number] [place] [address] 62854- 0039 Oct, Gait instability R26.81 [facility] [id number] [place] [address] 14441- 3514 Oct, Anxiety F41.9 [facility] [id number] [place] [address] 47563- 9754 Oct, Gait instability R26.81 [facility] [address] [facility] [id number] [place] [address] 27592- 2806 Oct, Gait instability R26.81 [facility] [id number] [place] [address] 41974- 1919 Oct, [facility] [address] [address]- 1020 Oct, Anxiety F41.9 ; Chronic 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 use Z79.899 ; Encounter for immunization Z23 and Transient cerebral ischemia, unspecified transient cerebral ischemia type G45.9 [facility] [address] [facility] [id number] [place] [address]- 6072 September, [facility] [address] [facility] [id number] [place] [address] 62269- 1090 September, Gait instability R26.81 [facility] [address] [facility] [id number] [place] [address]- 7507 September, [facility] [address] [address]- 1521 September, [facility] [address] [address]- 5990 September, [facility] [address] [address]- 5051 September, Alzheimers disease with late onset G30.1 and Mild episode of recurrent major depressive disorder F33.0 [facility] [address] [address]- 0551 September, [facility] [address] [address]- 8040 September, [facility] [id number] [address]- 6577 September, [facility] [address] [address]- 8104 September, Mild episode of recurrent major depressive disorder F33.0 [facility] [address] [address]- 0629 Aug, Mild episode of recurrent major depressive disorder F33.0 ; Alzheimers disease with late onset G30.1 ; Other acute pulmonary embolism without acute cor pulmonale I26.99 and Cough R05 [facility] [address] [address]- 6323 Aug, [facility] [address] [address]- 9317 Aug, Gait instability R26.81 [facility] [address] [address]- 3730 Aug, Alzheimers disease with late onset G30.1 and Mild episode of recurrent major depressive disorder F33.0 [facility] [address] [address]- 1684 Aug, [facility] [address] [address]- 1929 Aug, 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 [facility] [id number] [place] [address] 97253- 1445 Jul, Alzheimers disease with late onset G30.1 [facility] [address] [address]- 1261 Jul, [facility] [id number] [place] [address] 83248- 5740 Jul, 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 [facility] [id number] [place] [address] 74549- 0590 Jul, Anxiety F41.9 ; Alzheimers disease with late onset G30.1 and Transient cerebral ischemia, unspecified transient cerebral ischemia type G45.9 [place] [id number] [place] [address] 82159- 6632 Jun, Essential hypertension I10 [facility] [id number] [place] [address] 25713- 5388 Jun, [facility] [id number] [place] [address] 36644- 2889 Jun, [facility] [id number] [place] [address] 49563- 8817 Jun, [facility] [id number] [place] [address] 71618- 8195 Jun, Essential hypertension I10 ; Benign non-nodular prostatic hyperplasia with lower urinary tract symptoms N40.1 ; Anxiety F41.9 ; Pain in right knee M25.561 ; Pain in left knee M25.562 and Other chronic pain G89.29 [facility] [id number] [place] [address] 40164- 4615 May, [facility] [address] [address]- 2520 May, [facility] [id number] [place] [address] 74376- 4804 May, [facility] [id number] [place] [address] 99766- 0414 Apr, [facility] [id number] [place] [address] 55738- 7616 Mar, [facility] [address] 44036- 5270 Mar, Mixed hyperlipidemia E78.2 and Essential hypertension I10 [facility] [address] 10123- 4846 Feb, [facility] [address] 39989- 7948 Feb, Ingrown nail L60.0 and Onychomycosis B35.1 [place] [address] 05056- 2853 Feb, Paronychia, left L03.012 [facility] [id number] [place] [address] 57339- 2752 Jan, [facility] [address] 46144- 6204 Jan, Cramps of right lower extremity R25.2 and Mixed hyperlipidemia E78.2 [place] [id number] [place] [address] 80966- 5041 Jan, Cramps of right lower extremity R25.2 ; Essential hypertension I10 ; Mixed hyperlipidemia E78.2 ; Chronic 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 use Z79.899 and Claudication I73.9 [facility] [address] 26760- 8549 Jan, Right leg pain M79.604 [facility] [id number] [place] [address] 95707- 4615 Dec, [facility] [address] 48344- 4868 Nov, [facility] [id number] [place] [address] 99236- 1110 Nov, [facility] [id number] [place] [address] 30530- 8854 Nov, [facility] [id number] [place] [address] 89256- 3223 Nov, Dermatofibroma D23.9 [facility] [id number] [place] [address] 22536- 4216 Nov, [facility] [id number] [place] [address] 42507- 7726 Oct, [facility] [id number] [place] [address] 55159- 6148 Oct, [facility] [id number] [place] [address] 15422- 4199 September, Benign non-nodular prostatic hyperplasia with lower urinary tract symptoms N40.1 ; Essential hypertension I10 ; Overactive bladder N32.81 and Fatigue, unspecified type R53.83 [facility] [id number] [place] [address] 96524- 6808 September, [facility] [id number] [place] [address] 89002- 1955 September, [facility] [id number] [place] [address] 21964- 4768 Aug, [facility] [id number] [place] [address] 67652- 8645 Jul, [facility] [id number] [place] [address] 20936- 7296 Jul, Pelvic pain R10.2 ; Jock itch B35.6 ; Essential hypertension I10 and Hydrocele, unspecified hydrocele type N43.3 [facility] [id number] [place] [address] 46153- 0381 Jun, [facility] [address] [address]- 0338 Jun, [facility] [id number] [place] [address] 83665- 8032 Jun, Benign non-nodular prostatic hyperplasia with lower urinary tract symptoms N40.1 [facility] [id number] [place] [address] 07203- 4114 Jun, Benign non-nodular prostatic hyperplasia with lower urinary tract symptoms N40.1 [facility] [id number] [place] [address] 82416- 2800 Jun, [facility] [id number] [place] [address] 97609- 2282 May, [facility] [id number] [place] [address] 12322- 2204 Apr, [facility] [id number] [place] [address] 07474- 8065 Apr, [facility] [id number] [place] [address] 30935- 3958 Apr, Other acute pulmonary embolism without acute cor pulmonale I26.99 ; Anxiety F41.9 ; 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 and 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 [facility] [id number] [place] [address] 92015- 6064 Apr, [facility] [id number] [place] [address] 86272- 9745 Apr, [facility] [id number] [place] [address] 51521- 1761 Mar, [facility] [id number] [place] [address] 78196- 2136 Mar, [facility] [id number] [place] [address] 35744- 7007 Feb, Cough R05 [facility] [address] [address]- 7317 Feb, [facility] [address] [address]- 6807 Feb, Encounter for immunization Z23 [facility] [address] [address]- 0641 Feb, Other and unspecified hyperlipidemia 272.4 [facility] [id number] [place] [address] 27530- 4479 Jan, [facility] [id number] [place] [address] 94608- 7200 Jan, TIA (transient ischemic attack) 435.9 [facility] [address] [address]- 9125 Dec, [facility] [id number] [place] [address] 47986- 7549 Dec, [facility] [address] [address]- 0324 Dec, [facility] [id number] [place] [address] 19142- 7840 Nov, [facility] [address] [address]- 1493 Oct, Chronic cough 786.2 [facility] [address] [address]- 5621 Oct, [facility] [address] [address]- 2543 Oct, [facility] [address] [address]- 4945 Oct, [facility] [address] [address]- 2546 Oct, [facility] [address] [address]- 6023 Oct, Chronic cough 786.2 [facility] [address] [address]- 2988 Oct, Cough 786.2 ; Hypertension 401.9 ; BPH (benign prostatic hyperplasia) 600.00 ; Other and unspecified hyperlipidemia 272.4 and Hydrocele 603.9 [facility] [id number] [address]- 8271 Oct, [facility] [id number] [place] [address] 98841- 5824 September, [facility] [id number] [place] [address] 26267- 6256 Aug, [facility] [id number] [place] [address] 90440- 5807 Aug, [facility] [id number] [place] [address] 16732- 0978 Jul, [facility] [id number] [place] [address] 56750- 8877 Jul, [facility] [id number] [place] [address] 42191- 3930 Jul, [facility] [id number] [address]- 4619 Jul, [facility] [address] [address]- 5316 Jul, [facility] [address] [address]- 9443 Jun, [facility] [address] 5478 Jun, [facility] [id number] [place] [address] 620085- 1461 Jun, [facility] [address] [address]163 Jun, [facility] [place] [facility] [address] [id number] [place] [address]- 9707 Jun, [facility] [place] [facility] [address] [id number] [place] [address]- 4717 Jun, [facility] [place] [facility] [address] [id number] [place] [address]- 3014 Jun, [facility] [place] [facility] [address] [id number] [place] [address]- 2537 Jun, [facility] [place] [facility] [address] [id number] [place] [address]- 3137 May, [facility] [place] [facility] [address] [id number] [place] [address]- 0208 May, [facility] [place] [facility] [address] [id number] [place] [address]- 3834 May, [facility] [place] [facility] [address] [id number] [place] [address] May, [facility] [place] [facility] [address] [id number] [place] [address] May, [facility] [place] [facility] [address] [id number] [place] [address] May, [facility] [place] [facility] [address] [id number] [place] [address] May, [facility] [place] [facility] [address] [id number] [place] [address] May, [facility] [place] [facility] [address] [id number] [place] [address] May, [facility] [place] [facility] [address] [id number] [place] [address] May, [facility] [place] [facility] [address] [id number] [place] [address] Apr, [facility] [place] [facility] [address] [id number] [place] [address] Apr, [facility] [place] [facility] [address] [id number] [place] [address] Apr, [facility] [place] [facility] [address] [id number] [place] [address] Apr, [facility] [place] [facility] [address] [id number] [place] [address] Apr, [facility] [place] [facility] [address] [id number] [place] [address] Apr, [facility] [place] [facility] [address] [id number] [place] [address] Apr, [facility] [place] [facility] [address] [id number] [place] [address] Apr, [facility] [place] [facility] [address] [id number] [place] [address] Mar, [facility] [place] [facility] [address] [id number] [place] [address] Mar, [facility] [place] [facility] [address] [id number] [place] [address] Mar, [facility] [place] [facility] [address] [id number] [place] [address] Mar, [facility] [place] [facility] [address] [id number] [place] [address] Mar, [facility] [place] [facility] [address] [id number] [place] [address] Mar, [facility] [place] [facility] [address] [id number] [place] [address] Mar, [facility] [place] [facility] [address] [id number] [place] [address] Mar, [facility] [place] [facility] [address] [id number] [place] [address] Mar, [facility] [place] [facility] [address] [id number] [place] [address] Mar, [facility] [place] [facility] [address] [id number] [place] [address] 30 Feb, 2014 [facility] [facility] [address] [id number] [place] [address] 30 Feb, 2014 [facility] [place] [facility] [address] [id number] [place] [address] 29 Feb, 2014 [facility] [place] [facility] [address] [id number] [place] [address] 29 Feb, 2014 [facility] [place] [facility] [address] [id number] [place] [address] 269[address] Feb, [facility] [place] [facility] [address] [id number] [place] [address] 6558 14 Feb, 2014 [facility] [place] [facility] [address] [id number] [place] [address] 4[address] 30 Jan, 2013 [facility] [place] [facility] [address] [id number] [place] [address]- 5844 30 Sep, 2013 [facility] [place] [facility] [address] [id number] [place] [address]- 1192 24 Sep, 2013 [facility] [place] [facility] [address] [id number] [place] [address]- 9118 24 Sep, 2013 [facility] [place] [facility] [address] [id number] [place] [address]- 2549 19 Sep, 2013 [facility] [place] [facility] [address] [id number] [place] [address]- 2542 19 Sep, 2013 [facility] [place] [facility] [address] [id number] [place] [address]- 2546 16 Sep, 2013 [facility] [place] [facility] [address] [id number] [place] [address]- 2546 16 Sep, 2013 [facility] [place] [address] [id number] [place] [address]- 5056 Jan, [facility] [place] [facility] [address] [id number] [place] [address]- 6540 16 Jan, 2014 [facility] [place] [facility] [address] [id number] [place] [address]- 8395 Jan, [facility] [place] [address] [id number] [place] [address]- 7894 Jan, [facility] [place] [facility] [address] [id number] [place] [address]- 7115 Dec, [facility] [place] [facility] [address] [id number] [place] [address]- 7735 Dec, [facility] [place] [address] [id number] [place] [address]- 0803 Dec, [facility] [place] [facility] [address] [id number] [place] [address]- 3432 Dec, [facility] [place] [facility] [address] [id number] [place] [address]- 3682 Dec, [facility] [place] [address] [id number] [place] [address]- 2654 Dec, [facility] [place] [address] [id number] [place] [address]- 2916 Nov, [facility] [place] [facility] [address] [id number] [place] [address]- 1657 Nov, [facility] [place] [address] [id number] [place] [address]- 4249 Nov, [facility] [place] [address] [id number] [place] [address]- 9166 Nov, [facility] [place] [address] [id number] [place] [address]- 9587 Nov, [facility] [place] [address] [id number] [place] [address]- 5989 Nov, [facility] [place] [address] [id number] [place] [address]- 4847 Nov, [facility] [place] [facility] [address] [id number] [place] [address]- 8791 Nov, [facility] [address] [id number] [place] [address]- 9254 Oct, [facility] [address] [id number] [place] [address]- 2450 Oct, [facility] [address] [id number] [place] [address]- 1394 Oct, [facility] [address] [id number] [place] [address]- 6661 Oct, [facility] [place] [address] [id number] [place] [address]- 7325 September, [facility] [address] [id number] [place] [address]- 8429 September, [facility] [address] [id number] [place] [address]- 9457 September, [facility] [place] [facility] [address] [id number] [place] [address] September, [facility] [facility] [address] [id number] [place] [address]- 0334 September, [facility] [address] [id number] [place] [address]- 4143 September, [facility] [address] [id number] [place] [address]- 5302 Aug, [facility] [address] [id number] [place] [address]- 3579 Aug, [facility] [address] [id number] [place] [address] 1956 Aug, [facility] [address] [id number] [place] [address]- 1380 Aug, [facility] [address] [id number] [place] [address]- 1698 Aug, [facility] [address] [id number] [place] [address]- 0723 Aug, [facility] [address] [id number] [place] [address]- 7927 Aug, [facility] [address] [id number] [place] [address]- 8119 Aug, [facility] [address] [id number] [place] [address]- 3371 Jul, [facility] [address] [id number] [place] [address]- 8253 Jul, [facility] [address] [id number] [place] [address]- 2653 Jun, [facility] [address] [id number] [place] [address]- 2896 Jun, [facility] [address] [id number] [place] [address]- 2843 Jun, [facility] [address] [facility] [id number] [place] [address]- 2881 Jun, [facility] [address] [id number] [place] [address]- 5414 Jun, [facility] [address] [id number] [place] [address]- 3621 May, [facility] [address] [id number] [place] [address]- 6589 May, [facility] [address] [id number] [place] [address]- 7486 May, [facility] [address] [id number] [place] [address]- 7434 May, [facility] [address] [id number] [place] [address]- 6051 Apr, [facility] [address] [id number] [place] [address]- 0596 Apr, [facility] [address] [id number] [place] [address]- 5644 Mar, [facility] [address] [id number] [place] [address]- 3862 Mar, [facility] [address] [id number] [place] [address]- 7165 Feb, [facility] [address] [id number] [place] [address]- 4621 Feb, [facility] [address] [id number] [place] [address]- 2614 Feb, [facility] [address] [id number] [place] [address]- 6645 Feb, [facility] [address] [id number] [place] [address]- 4989 Feb, [facility] [address] [id number] [place] [address]- 6922 Feb, [facility] [address] [id number] [place] [address]- 5493 Feb, [facility] [address] [id number] [place] [address]- 9950 Jan, [facility] [address] [id number] [place] [address]- 8714 Jan, [facility] [address] [id number] [place] [address]- 6947 Dec, [facility] [address] [id number] [place] [address]- 9308 Dec, [facility] [address] [facility] [id number] [place] [address]- 8826 Dec, [facility] [address] [id number] [place] [address]- 2546 Dec, [facility] [address] [id number] [place] [address]- 1046 Dec, [facility] [address] [id number] [place] [address]- 2546 Nov, [facility] [address] [id number] [place] [address]- 2546 Nov, [facility] [address] [id number] [place] [address]- 2546 Nov, [facility] [address] [id number] [place] [address]- 8786 Oct, [facility] [address] [id number] [place] [address]- 2546 Oct, [facility] [address] [id number] [place] [address]- 7112 Oct, [facility] [address] [id number] [place] [address]- 1976 September, [facility] [address] [id number] [place] [address]- 7536 Aug, [facility] [address] [id number] [place] [address]- 2546 Aug, [facility] [address] [id number] [place] [address]- 2546 Aug, [facility] [address] [id number] [place] [address]- 2540 Jul, [facility] [address] [id number] [place] [address]- 2546 18 Jul, 2012 [facility] [address] [id number] [place] [address]- 2546 15 Jul, 2012 [facility] [address] [id number] [place] [address]- 2546 Jul, [facility] [address] [id number] [place] [address]- 2546 Jul, [facility] [address] [id number] [place] [address]- 2326 Jun, [facility] [address] [id number] [place] [address]- 2546 Jun, [facility] [address] [id number] [place] [address]- 2546 May, [facility] [address] [id number] [place] [address]- 2546 May, [facility] [address] [id number] [place] [address]- 2026 Apr, [facility] [address] [id number] [place] [address]- 2886 Apr, [facility] [address] [id number] [place] [address]- 9669 Mar, [facility] [address] [id number] [address]- 3148 Mar, [facility] [address] [id number] [address]- 1436 Mar, [facility] [address] [id number] [address]- 2546 Mar, [facility] [address] [id number] [id number] Feb, [facility] [address] [facility] [id number] [place] [address]- 4666 Feb, [facility] [address] [facility] [id number] [place] [address]- 2696 Feb, [facility] [address] [facility] [id number] [place] [address]- 8766 Feb, [facility] [address] [facility] [id number] [place] [address]- 4362 Feb, [facility] [address] [id number] [place] [address]- 9348 Feb, [facility] [address] [id number] [place] [address]- 6086 Feb, [facility] [address] [id number] [place] [address]- 5076 Jan, [facility] [address] [id number] [place] [address]- 7937 Jan, [facility] [address] [id number] [place] [address]- 9278 Dec, [facility] [address] [id number] [place] [address]- 0156 Dec, [facility] [id number] [place] [address]- 8566 Nov, [facility] [address] [id number] [place] [address]- 5261 Oct, [facility] [address] [id number] [place] [place] [address]- 4571 September, [facility] [address] [id number] [place] [address]- 4876 September, [facility] [address] [id number] [place] [address]- 7097 September, [facility] [address] [id number] [place] [address]- 7128 Aug, [facility] [address] [id number] [place] [address]- 1795 May, [facility] [address] [facility] [id number] [place] [address]- 5563 May, [facility] [address] [id number] [place] [address]- 1501 Apr, [facility] [id number] [address]- 3505 Apr, [facility] [id number] [address]- 4502 Apr, [facility] [address] [facility] [id number] [place] [address]- 9966 Apr, [facility] [address] [facility] [id number] [place] [address]- 0462 Apr, [facility] [address] [facility] [id number] [place] [address]- 7500 Mar, [facility] [id number] [address]- 5958 Feb, [facility] [id number] [address]- 5876 Feb, [facility] [id number] [address]- 2433 September, [facility] [id number] [address]- 8705 Mar, [facility] [id number] [address]- 7661 Feb, [facility] [id number] [address]- 4474 Feb, [facility] [address] [id number] [address]- 2994 Feb, IMMUNIZATIONS No Known Immunizations SOCIAL HISTORY [...] foot fracture Hospitalization History [facility] [place]- Back Pain 03/24/2017
--- OUTSIDE RECORDS SUMMARY | 2018-04-10 18:01 | XMS REPORT ---
Author Author FRANKIE ROCHE Organization [facility] Address [address] [place] [address] Care Team Providers Care Np Name Role Phone FRANKIE ROCHE Unavailable PROBLEMS Type Condition ICD9-CM Code EXJ35-JE Code Onset Dates Condition Status SNOMED Code Problem Color blindness H53.50 Active 980209492 Problem Presbyopia of both eyes H52.4 Active 77947791 Problem Nuclear senile cataract of both eyes H25.13 Active 529621287 Problem Astigmatism of both eyes, unspecified type H52.203 Active 84751088 Problem Overactive bladder N32.81 Active 563898874 Problem Essential hypertension I10 Active 50456689 Problem Other chronic pain G89.29 Active 84072253 Problem Hypermetropia of both eyes H52.03 Active 29564986 Problem Alzheimer's disease, unspecified G30.9 Active 730823885 Problem Mild episode of recurrent major depressive disorder F33.0 Active 312401580 Problem 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 Active 466508693 Problem Major depressive disorder, single episode, mild F32.0 Active 33614448 Problem Chronic fatigue R53.82 Active 13056710 Problem Hydrocele, unspecified hydrocele type N43.3 Active 53862844 Problem Other acute pulmonary embolism without acute cor pulmonale I26.99 Active 235027337 Problem 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 Active 105690999 Problem Asymptomatic microscopic hematuria R31.21 Active 096064523 Problem Gait instability R26.81 Active 58449960 Problem PVD (peripheral vascular disease) I73.9 Active 233414774 Problem At high risk for falls Z91.81 Active [id number] Problem 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 Active 69011209 Problem Benign non-nodular prostatic hyperplasia with lower urinary tract symptoms N40.1 Active 519473017 Problem Alzheimers disease with late onset G30.1 Active 426844172 Problem Renal cyst, left Q61.00 Active 02872241 Problem Mixed hyperlipidemia E78.2 Active 451231332 Problem Anxiety F41.9 Active 65598857 Problem Transient cerebral ischemia, unspecified transient cerebral ischemia type G45.9 Active 213420217 Problem Primary insomnia F51.01 Active 122597467 ALLERGIES Substance Reaction Event Type Date Status Vicodin Unknown Drug Allergy September, Active Lovastatin had a reaction to a statin but is unsure of which statin it was Drug Allergy September, Active Codeine Sulfate Unknown Drug Allergy September, Active ENCOUNTERS Encounter Location Date Diagnosis [place] [address] [address] Dec, [place] [address] [address]- 9184 Dec, [place] [address] [address]- [address] Dec, [place] [address] [address]- [address] Nov, Essential hypertension I10 and Mixed hyperlipidemia E78.2 [place] [address] 03[address]- 5074 Oct, Edema leg R60.0 [place] [address] 99353- 7436 September, [place] [address] [address]- [address] September, Alzheimers disease with late onset G30.1 and Mild episode of recurrent major depressive disorder F33.0 [place] [address] 18[address]- 44[address] September, PVD (peripheral vascular disease) I73.9 ; Major depressive disorder, single episode, mild F32.0 ; Chronic fatigue R53.82 ; Weight gain R63.5 and Arthralgia, unspecified joint M25.50 [place] [address] [address]- 69[address] Aug, Acute low back pain, unspecified back pain laterality, with sciatica presence unspecified M54.5 [facility] [address] [place] [id number] [place] [address] 90303- 3388 Aug, Acute low back pain, unspecified back pain laterality, with sciatica presence unspecified M54.5 [facility] [address] [place] [id number] [place] [address] 63468- 0207 Aug, Pain R52 [facility] [address] 136[address]- 4093 Jul, [facility] [address] [address]- 2826 Jun, [place] [address] 9[address]- 2858 07 Jun, 2017 Medicare annual wellness visit, initial Z00.00 ; Mixed hyperlipidemia E78.2 ; Essential hypertension I10 ; Anxiety F41.9 ; Alzheimers disease with late onset G30.1 ; 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 ; Overactive bladder N32.81 ; Primary insomnia F51.01 ; At high risk for falls Z91.81 and Encounter for immunization Z23 [place] [address] [place] [id number] [place] [address] 46791- 7629 May, [place] [address] [place] [id number] [place] [address] 04141- 3846 May, Essential hypertension I10 and Transient cerebral ischemia, unspecified transient cerebral ischemia type G45.9 [facility] [id number] [place] [address] [id number] May, Dental examination Z01.20 and Dental caries K02.9 [facility] [address] [place] [id number] [place] [address] 26835- 0194 May, [facility] [address] [place] [id number] [place] [address] 55816- 1792 May, [facility] [address] 56015- 7008 May, Alzheimers disease with late onset G30.1 [facility] [address] [place] [id number] [place] [address] 47528- 4250 Apr, [facility] [address] 7[address]12- 4820 Apr, Alzheimers disease with late onset G30.1 and Mild episode of recurrent major depressive disorder F33.0 [place] [address] 27078- 9207 Mar, Mild episode of recurrent major 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 [place] [address] 21674- 5621 Mar, Mixed hyperlipidemia E78.2 ; Essential hypertension I10 ; Asymptomatic microscopic hematuria R31.21 and Renal cyst, left Q61.00 [place] [address] 14152- 0656 Mar, [facility] [address] 14188- 7653 Feb, Encounter for immunization Z23 [place] [address] 00172- 6181 Feb, [facility] [address] [place] [id number] [place] [address] 68339- 9427 Feb, [facility] [address] [place] [id number] [place] [address] 34082 -7445 Feb, ANUG (acute necrotizing ulcerative gingivitis) A69.1 [facility] [address] [place] [id number] [place] [address] 71513- 1803 Feb, [facility] [address] 09099- 5831 Feb, Mild episode of recurrent major depressive disorder F33.0 [facility] [address] [place] [id number] [place] [address] 70022- 9389 Feb, Alzheimers disease with late onset G30.1 and Mild episode of recurrent major depressive disorder F33.0 [facility] [address] [address]- 3593 Jan, Alzheimers disease with late onset G30.1 [facility] [address] [address] 2[address] Jan, Gait instability R26.81 [facility] [address] [id number] [place] [address] Jan [facility] [address] [id number] [place] [address] Dec [facility] [address] [place] [id number] [place] [address] 98516- 5619 Dec, [facility] [address] [place] [id number] [place] [address] 94389- 9722 Dec, [facility] [address] [place] [id number] [place] [address] 15138- 9361 Dec, Essential hypertension I10 ; Transient cerebral ischemia, unspecified transient cerebral ischemia type G45.9 and Anxiety F41.9 [facility] [address] [place] [id number] [place] [address] 67851- 5181 Dec, Gait instability R26.81 [facility] [address] [place] [id number] [place] [address] 99169- 1208 Dec, [facility] [address] [place] [id number] [place] [address] 72065- 0253 Nov, Alzheimers disease with late onset G30.1 and Mild episode of recurrent major depressive disorder F33.0 [facility] [id number] [place] [address] 29411- 1773 Nov, [facility] [address] [place] [id number] [place] [address] 82356- 1970 Nov, Gait instability R26.81 [facility] [id number] [place] [address] 46017- 8734 Nov, Anxiety F41.9 [facility] [address] [facility] [id number] [address] 40[address] Nov, [facility] [address] [place] [id number] [place] [address] 00726- 4757 Nov, [facility] [id number] [place] [address] 96716- 8239 Oct, Gait instability R26.81 [facility] [address] [place] [id number] [place] [address] 67407- 5199 Oct, Anxiety F41.9 [facility] [address] [place] [id number] [place] [address] 44642- 4725 Oct, Gait instability R26.81 [facility] [address] [place] [id number] [place] [address] 48816- 0206 Oct, Gait instability R26.81 [facility] [address] [place] [id number] [place] [address] 20176- 9327 Oct, [facility] [id number] [place] [address] 08160- 2321 Oct, Anxiety F41.9 ; Chronic 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 use Z79.899 ; Encounter for immunization Z23 and Transient cerebral ischemia, unspecified transient cerebral ischemia type G45.9 [facility] [address] [address]- 05[address] September, [facility] [address] [address]- 4020 September, Gait instability R26.81 [facility] [address] [address]- 6983 September, [facility] [address] [place] [id number] [place] [address] 93232- 6635 September, [facility] [address] [address]- 5790 September, [facility] [address] [place] [id number] [address]- 9410 September, Alzheimers disease with late onset G30.1 and Mild episode of recurrent major depressive disorder F33.0 [facility] [address] [address]- 5943 September, [facility] [address] [address]- 4873 September, [facility] [id number] [place] [address] 06108- 9510 September, [facility] [address] [address]- 1161 September, Mild episode of recurrent major depressive disorder F33.0 [facility] [address] [address]- 7097 Aug, Mild episode of recurrent major depressive disorder F33.0 ; Alzheimers disease with late onset G30.1 ; Other acute pulmonary embolism without acute cor pulmonale I26.99 and Cough R05 [facility] [address] [address]- 4291 Aug, [facility] [address] [address]- 6733 Aug, Gait instability R26.81 [facility] [address] [address]- 3478 Aug, Alzheimers disease with late onset G30.1 and Mild episode of recurrent major depressive disorder F33.0 [facility] [address] [address]- 6955 Aug, [facility] [address] [address]- 4714 Aug, 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 [facility] [address] [place] [id number] [address]- 9551 Jul, Alzheimers disease with late onset G30.1 [facility] [address] [place] [id number] [address]- 5453 Jul, [facility] [address] [place] [id number] [place] [address] 39246- 5121 Jul, 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 [facility] [address] [place] [id number] [place] [address] 49495- 8108 Jul, Anxiety F41.9 ; Alzheimers disease with late onset G30.1 and Transient cerebral ischemia, unspecified transient cerebral ischemia type G45.9 [facility] [address] [place] [id number] [place] [address] 40576- 0577 Jun, Essential hypertension I10 [facility] [address] [place] [id number] [place] [address] 11911- 8267 Jun, [facility] [address] [place] [id number] [place] [address] 26882- 5988 Jun, [facility] [address] [place] [id number] [place] [address] 18123- 5924 Jun, [facility] [address] [place] [id number] [place] [address] 32786- 0790 Jun, Essential hypertension I10 ; Benign non-nodular prostatic hyperplasia with lower urinary tract symptoms N40.1 ; Anxiety F41.9 ; Pain in right knee M25.561 ; Pain in left knee M25.562 and Other chronic pain G89.29 [facility] [id number] [place] [address] 75351- 7545 May, [facility] [address] [place] [id number] [place] [address] 23752- 8059 May, [facility] [address] [place] [id number] [place] [address] 48144- 3062 May, [facility] [address] [place] [id number] [place] [address] 67704- 9372 Apr, [facility] [address] [place] [id number] [place] [address] 42796- 6398 Mar, [facility] [address] [place] [id number] [place] [address] 55261- 0597 Mar, Mixed hyperlipidemia E78.2 and Essential hypertension I10 [facility] [address] [place] [id number] [place] [address] 46927- 4478 Feb, [facility] [address] 98539- 8339 Feb, Ingrown nail L60.0 and Onychomycosis B35.1 [facility] [address] [place] [id number] [place] [address] 07638- 5257 Feb, Paronychia, left L03.012 [facility] [address] [place] [id number] [place] [address] 78864- 1700 Jan, [facility] [address] 53981- 1773 Jan, Cramps of right lower extremity R25.2 and Mixed hyperlipidemia E78.2 [facility] [address] [place] [id number] [place] [address] 82464- 1849 Jan, Cramps of right lower extremity R25.2 ; Essential hypertension I10 ; Mixed hyperlipidemia E78.2 ; Chronic 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 use Z79.899 and Claudication I73.9 [facility] [address] [place] [id number] [place] [address] 61424- 1324 Jan, Right leg pain M79.604 [facility] [address] [place] [id number] [place] [address] 12838- 2098 Dec, [facility] [address] [place] [id number] [place] [address] 23943- 6877 Nov, [facility] [address] [place] [id number] [place] [address] 28358- 9164 Nov, [facility] [address] [place] [id number] [place] [address] 54789- 6445 Nov, [facility] [address] [address]- 0611 Nov, Dermatofibroma D23.9 [facility] [address] [address]- 4496 Nov, [facility] [id number] [address]- 5205 Oct, [facility] [address] [place] [id number] [place] [address] 08586- 2896 Oct, [facility] [id number] [place] [address] 56513- 6776 September, Benign non-nodular prostatic hyperplasia with lower urinary tract symptoms N40.1 ; Essential hypertension I10 ; Overactive bladder N32.81 and Fatigue, unspecified type R53.83 [facility] [address] [place] [id number] [place] [address] 70077- 5424 September, [facility] [address] [address]- 7864 September, [facility] [address] [place] [id number] [place] [address] 801996- 5445 Aug, [facility] [address] [address]- 4909 Jul, [facility] [address] [address]- 2288 Jul, Pelvic pain R10.2 ; Jock itch B35.6 ; Essential hypertension I10 and Hydrocele, unspecified hydrocele type N43.3 [facility] [address] [address]- 3387 Jun, [facility] [id number] [address]- 1345 Jun, [facility] [id number] [address]- 7212 Jun, Benign non-nodular prostatic hyperplasia with lower urinary tract symptoms N40.1 [facility] [address] [place] [id number] [place] [address] 43512- 7195 Jun, Benign non-nodular prostatic hyperplasia with lower urinary tract symptoms N40.1 [facility] [address] [place] [id number] [place] [address] 65247- 0439 Jun, [facility] [address] 63517- 5988 May, [facility] [address] [place] [id number] [place] [address] 36092- 9586 Apr, [facility] [address] 79715- 5943 Apr, [facility] [address] [place] [id number] [place] [address] 35288- 9511 Apr, Other acute pulmonary embolism without acute cor pulmonale I26.99 ; Anxiety F41.9 ; 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 and 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 [facility] [address] [place] [id number] [place] [address] 58056- 5251 Apr, [facility] [address] [place] [id number] [place] [address] 07794- 1700 Apr, [facility] [address] [place] [id number] [place] [address] 39280- 3963 Mar, [facility] [address] [place] [id number] [place] [address] 71986- 9491 Mar, [facility] [address] [place] [id number] [place] [address] 84619- 4126 Feb, Cough R05 [facility] [address] [place] [id number] [place] [address] 38073- 2508 Feb, [facility] [address] [place] [id number] [place] [address] 18496- 0711 Feb, Encounter for immunization Z23 [facility] [address] [address]- 4213 Feb, Other and unspecified hyperlipidemia 272.4 [facility] [id number] [place] [address] 57840- 7146 Jan, [facility] [address] [place] [id number] [place] [address] 92858- 2191 Jan, TIA (transient ischemic attack) 435.9 [facility] [address] [place] [id number] [place] [address] 11738- 9103 Dec, [facility] [address] [id number] [place] [address] 83227- 4948 Dec, [facility] [id number] [place] [address] 14244- 9587 Dec, [facility] [address] [place] [id number] [place] [address] 80157- 5900 Nov, [facility] [address] [address]- 9744 Oct, Chronic cough 786.2 [facility] [id number] [place] [address] 33623- 0544 Oct, [facility] [address] [address]- 8959 Oct, [facility] [address] [address]- 9522 Oct, [facility] [address] [address]- 2540 Oct, [facility] [id number] [place] [address] 08052- 8284 Oct, Chronic cough 786.2 [facility] [address] [address]- 2549 Oct, Cough 786.2 ; Hypertension 401.9 ; BPH (benign prostatic hyperplasia) 600.00 ; Other and unspecified hyperlipidemia 272.4 and Hydrocele 603.9 [facility] [place] [facility] [address] [facility] [id number] [place] [address]- 3557 Oct, [facility] [place] [facility] [address] [facility] [id number] [address]- 2367 September, [facility] [place] [facility] [address] [place] [address]- 7306 Aug, [facility] [place] [facility] [address] [facility] [id number] [address]- 6733 Aug, [facility] [place] [facility] [address] [facility] [id number] [place] [address]- 5390 Jul, [facility] [place] [facility] [address] [address]- 3196 Jul, [facility] [place] [facility] [id number] [address]- 8179 Jul, [facility] [place] [facility] [id number] [address]- 2641 Jul, [facility] [place] [facility] [id number] [address]- 9443 Jul, [facility] [place] [facility] [address] [address]- 3968 Jun, [facility] [place] [facility] [address] [address]- 3373 Jun, [facility] [place] [facility] [address] [id number] [address]- 1941 Jun, [facility] [place] [facility] [address] [facility] [id number] [address]- 8528 Jun, [facility] [place] [facility] [id number] [address]- 1908 Jun, [facility] [place] [facility] [id number] [address]- 9615 Jun, [facility] [place] [facility] [address] [id number] [place] [address] Jun, [facility] [place] [facility] [address] [id number] [place] [address] Jun, [facility] [place] [facility] [address] [id number] [place] [address] May, [facility] [place] [facility] [address] [id number] [place] [address] May, [facility] [place] [facility] [address] [id number] [place] [address] May, [facility] [place] [facility] [address] [id number] [place] [address] May, [facility] [place] [facility] [address] [id number] [place] [address] May, [facility] [place] [facility] [address] [id number] [place] [address] May, [facility] [place] [facility] [address] [id number] [place] [address] May, [facility] [place] [facility] [address] [id number] [place] [address] May, [facility] [place] [facility] [address] [id number] [place] [address] May, [facility] [place] [facility] [address] [id number] [place] [address] May, [facility] [place] [facility] [address] [id number] [place] [address] Apr, [facility] [place] [facility] [address] [id number] [place] [address] Apr, [facility] [place] [facility] [address] [id number] [place] [address] Apr, [facility] [place] [facility] [address] [id number] [place] [address] Apr, [facility] [place] [facility] [address] [id number] [place] [address] Apr, [facility] [place] [facility] [address] [id number] [place] [address] Apr, [facility] [place] [facility] [address] [facility] [id number] [place] [address] Apr, [facility] [place] [facility] [address] [id number] [place] [address] Apr, [facility] [place] [facility] [address] [id number] [place] [address] Mar, [facility] [place] [facility] [address] [id number] [place] [address] Mar, [facility] [place] [facility] [address] [id number] [place] [address]- [address] Mar, [facility] [place] [facility] [address] [id number] [address] Mar, [facility] [place] [facility] [address] [id number] [place] [address] Mar, [facility] [place] [facility] [address] [id number] [address] Mar, [facility] [place] [facility] [address] [id number] [address] Mar, [facility] [place] [facility] [address] [id number] [place] [address] Mar, [facility] [place] [facility] [address] [id number] [place] [address] Mar, [facility] [place] [facility] [address] [id number] [place] [address] Mar, [facility] [place] [facility] [address] [id number] [place] [address] Feb, [facility] [place] [facility] [address] [id number] [place] [address] 30 Feb, 2013 [facility] [place] [facility] [address] [id number] [place] [address] 3[address] 29 Feb, 2013 [facility] [place] [facility] [address] [id number] [place] [address] 0964 29 Feb, 2013 [facility] [place] [facility] [address] [id number] [place] [address]- 5068 14 Feb, 2013 [facility] [place] [facility] [address] [id number] [place] [address] 3[address] 14 Feb, 2013 [facility] [place] [facility] [address] [id number] [place] [address] 6872 30 Sep, 2013 [facility] [place] [facility] [address] [id number] [place] [address] 4517 30 Sep, 2013 [facility] [place] [facility] [address] [id number] [place] [address]- 5394 24 Sep, 2013 [facility] [place] [facility] [address] [id number] [place] [address]- 2540 24 Sep, 2013 [facility] [place] [facility] [address] [id number] [place] [address]- 2543 19 Sep, 2013 [facility] [place] [facility] [address] [id number] [place] [address]- 2540 19 Sep, 2013 [facility] [place] [facility] [address] [id number] [place] [address] 2542 16 Sep, 2013 [facility] [place] [facility] [address] [id number] [place] [address]- 2542 16 Sep, 2013 [facility] [place] [facility] [address] [id number] [place] [address] 2549 16 Sep, 2013 [facility] [place] [facility] [address] [id number] [place] [address]- 254 16 Sep, 2013 [facility] [place] [facility] [address] [id number] [place] [address] 2543 Jan, [facility] [place] [facility] [address] [id number] [place] [address]- 3515 Jan, [facility] [place] [facility] [address] [id number] [place] [address]- 5686 Dec, [facility] [place] [facility] [address] [id number] [place] [address]- 3611 Dec, [facility] [place] [facility] [address] [id number] [place] [address]- 8765 Dec, [facility] [place] [facility] [address] [id number] [place] [address] 2058 Dec, [facility] [place] [facility] [address] [id number] [place] [address] 1848 Dec, [facility] [place] [facility] [address] [id number] [place] [address]- 0445 Dec, [facility] [place] [facility] [address] [id number] [place] [address]- 5541 Nov, [facility] [place] [facility] [address] [id number] [place] [address]- 4720 Nov, [facility] [place] [facility] [address] [id number] [place] [address]- 7151 Nov, [facility] [place] [facility] [address] [id number] [place] [address]- 7946 Nov, [facility] [place] [facility] [address] [id number] [place] [address]- 1355 Nov, [facility] [place] [facility] [address] [id number] [place] [address]- 5900 Nov, [facility] [place] [facility] [address] [id number] [place] [address]- 3400 Nov, [facility] [place] [facility] [address] [id number] [place] [address]- 7462 Nov, [facility] [place] [facility] [address] [id number] [place] [address]- 1876 Oct, [facility] [place] [facility] [address] [id number] [place] [address]- 2891 Oct, [facility] [place] [facility] [address] [id number] [place] [address]- 7314 Oct, [facility] [place] [facility] [address] [id number] [place] [address]- 6478 Oct, [facility] [place] [facility] [address] [id number] [place] [address]- 7454 September, [facility] [place] [facility] [address] [id number] [place] [address]- 8820 September, [facility] [place] [facility] [address] [id number] [place] [address]- 7972 September, [facility] [place] [facility] [address] [id number] [place] [address]- 0836 September, [facility] [place] [facility] [address] [id number] [place] [address]- 0676 September, [facility] [place] [facility] [address] [id number] [place] [address]- 2608 September, [facility] [place] [facility] [address] [id number] [place] [address]- 5661 Aug, [facility] [place] [facility] [address] [id number] [place] [address]- 6920 Aug, [facility] [place] [facility] [address] [id number] [place] [address]- 2694 Aug, [facility] [place] [facility] [address] [id number] [place] [address]- 7994 Aug, [facility] [place] [facility] [address] [id number] [place] [address]- 3837 Aug, [facility] [place] [facility] [address] [id number] [place] [address]- 0172 Aug, [facility] [place] [facility] [address] [id number] [place] [address]- 6301 Aug, [facility] [place] [facility] [address] [id number] [place] [address]- 3289 Aug, [facility] [place] [facility] [address] [id number] [place] [address]- 8912 Jul, [facility] [place] [facility] [address] [id number] [place] [address]- 5068 Jul, [facility] [place] [facility] [address] [id number] [place] [address]- 1836 Jun, [facility] [place] [facility] [address] [id number] [place] [address]- 8099 Jun, [facility] [place] [facility] [address] [id number] [place] [address]- 3616 Jun, [facility] [place] [facility] [address] [id number] [place] [address]- 1086 Jun, [facility] [place] [facility] [address] [id number] [place] [address]- 9014 Jun, [facility] [place] [facility] [address] [id number] [place] [address]- 9734 May, [facility] [place] [facility] [address] [id number] [place] [address]- 0990 May, [facility] [place] [facility] [address] [id number] [place] [address]- 3783 May, [facility] [place] [facility] [address] [id number] [place] [address]- 2370 May, [facility] [place] [facility] [address] [id number] [place] [address]- 0326 Apr, [facility] [place] [facility] [address] [id number] [place] [address]- 9484 Apr, [facility] [place] [facility] [address] [id number] [place] [address]- 1493 08 Mar, 2013 [facility] [place] [facility] [address] [id number] [place] [address]- 8935 Mar, [facility] [place] [facility] [address] [id number] [place] [address]- 0651 Feb, [facility] [place] [facility] [address] [id number] [place] [address]- 4823 Feb, [facility] [place] [facility] [address] [id number] [place] [address]- 3619 Feb, [facility] [place] [facility] [address] [id number] [place] [address]- 6704 Feb, [facility] [place] [facility] [address] [id number] [place] [address]- 8117 Feb, [facility] [place] [facility] [address] [id number] [place] [address]- 1275 Feb, [facility] [place] [facility] [address] [id number] [place] [address]- 6142 Feb, [facility] [place] [facility] [address] [id number] [place] [address]- 0888 Jan, [facility] [place] [facility] [address] [id number] [place] [address]- 5526 Jan, [facility] [place] [facility] [address] [id number] [address]- 0665 Dec, [facility] [place] [facility] [address] [id number] [place] [address]- 1192 Dec, [facility] [place] [facility] [address] [id number] [place] [address]- 5973 15 Dec, 2012 [facility] [place] [facility] [address] [id number] [place] [address]- 5324 Dec, [facility] [place] [facility] [address] [id number] [place] [address]- 2123 Dec, [facility] [place] [facility] [address] [id number] [place] [address]- 0358 Nov, [facility] [address] [id number] [place] [address]- 8703 Nov, [facility] [address] [id number] [place] [address] 2541 Nov, [facility] [address] [id number] [place] [address]- 2548 Oct, [facility] [address] [id number] [place] [address]- 3456 Oct, [facility] [address] [id number] [place] [address]- 1072 Oct, [facility] [address] [id number] [place] [address]- 4996 September, [facility] [address] [id number] [place] [address]- 6539 Aug, [facility] [address] [id number] [place] [address]- 6151 Aug, [facility] [address] [id number] [place] [address]- 8152 Aug, [facility] [address] [id number] [place] [address]- 2849 Jul, [facility] [address] [id number] [place] [address]- 8769 Jul, [facility] [address] [id number] [place] [address]- 7792 Jul, [facility] [address] [id number] [place] [address]- 6935 Jul, [facility] [address] [id number] [place] [address]- 2546 Jul, [facility] [address] [id number] [place] [address]- 5844 Jun, [facility] [address] [id number] [place] [address]- 1734 Jun, [facility] [address] [id number] [place] [address]- 7406 May, [facility] [address] [id number] [place] [address]- 3866 May, [facility] [place] [facility] [address] [id number] [place] [address]- 6025 Apr, [facility] [address] [id number] [place] [address]- 3520 Apr, [facility] [place] [facility] [address] [id number] [place] [address]- 8563 Mar, [facility] [address] [id number] [place] [address]- 0346 Mar, [facility] [address] [id number] [address]- 3491 Mar, [facility] [address] [id number] [place] [address]- 2731 Mar, [facility] [address] [id number] [id number] Feb, [facility] [address] [id number] [place] [address]- 8775 Feb, [facility] [place] [facility] [address] [id number] [place] [address]- 2914 Feb, [facility] [address] [id number] [place] [address]- 9490 Feb, [facility] [place] [facility] [address] [id number] [place] [address]- 5541 Feb, [facility] [place] [facility] [address] [id number] [place] [address]- 3519 Feb, [facility] [place] [facility] [address] [id number] [place] [address]- 4506 Feb, [facility] [address] [id number] [place] [address]- 1088 Jan, [facility] [place] [facility] [address] [id number] [place] [address]- 2546 Jan, [facility] [place] [facility] [address] [id number] [place] [address]- 2546 Dec, [facility] [place] [facility] [address] [id number] [place] [address]- 2546 Dec, [facility] [address] [id number] [place] [address]- 8969 Nov, [facility] [place] [facility] [address] [id number] [place] [address]- 9776 Oct, [facility] [place] [facility] [address] [id number] [place] [address]- 2546 September, [facility] [place] [facility] [address] [id number] [place] [address]- 9826 September, [facility] [address] [id number] [place] [address]- 6520 September, [facility] [place] [facility] [address] [id number] [place] [address]- 6078 Aug, [facility] [place] [facility] [address] [id number] [place] [address]- 4007 May, [facility] [place] [facility] [address] [id number] [place] [address] 2540 May, [facility] [place] [facility] [address] [id number] [place] [address]- 6555 Apr, [facility] [place] [facility] [address] [id number] [place] [address]- 6536 Apr, [facility] [place] [facility] [address] [id number] [place] [address]- 8135 Apr, [facility] [place] [facility] [address] [id number] [address] 2546 Apr, [facility] [address] [id number] [address]- 9816 Apr, [facility] [address]00565100[place] [address] 2546 Mar, [facility] [address]00565100[place] [address]- 3330 Feb, [facility] [address]00565100[place] [address]- 9309 Feb, [facility] [id number] [place] [address]- 4313 September, [facility] [address] [id number] [address]- 7705 Mar, [facility] [address]00565100[place] [address]- 6485 Feb, [facility] [address]00565100[place] [address]- 0696 Feb, [facility] [address]00565100[place] [address] [address] Feb, IMMUNIZATIONS No Known Immunizations SOCIAL HISTORY Never Assessed REASON FOR VISIT Transition of Care CBrumbackRN, recently diagnosised, waiting on PFT. needs to be rescheduled. PLAN OF CARE Activity Details Future/Pending Procedure ROUTINE VENIPUNCTURE VITAL SIGNS Height 65 in 2017-09-19 Weight 204.1 lbs 2017-09-19 Temperature 97.9 degrees Fahrenheit 2017-09-19 Heart Rate 92 bpm 2017-09-19 Respiratory Rate 20 2017-09-19 Oximetry on room air:96 % 2017-09-19 BMI 33.96 kg/m2 2017-09-19 Blood pressure systolic 102 mmHg 2017-09-19 Blood pressure diastolic 82 mmHg 2017-09-19 MEDICATIONS Medication Instructions Dosage Frequency Start Date End Date Duration Status Pravastatin Sodium 40 MG Orally Once a day 1 tablet 24h Active Abilify 5 mg Orally Once a day 1 tablet 24h 30 day(s) Active Namenda 10 MG TAKE ONE TABLET BY MOUTH TWICE DAILY 60 Active Trazodone HCl 150 MG TAKE ONE TABLET BY MOUTH ONCE DAILY AT BEDTIME 30 Active Cymbalta 30 MG Orally Once a day 1 capsule 24h Active Tramadol HCl 50 mg Orally every 6 hrs 1 tablet as needed for severe pain 6h 30 Jul, 2017 Active Eliquis 5 mg Orally 2 times a day 1 tablet 12h Active Tizanidine HCl 2 MG Orally every 6 hours 1 tablet as needed 6h 16 Aug, 2017 Not-Taking Donepezil HCl 5 MG TAKE ONE TABLET BY MOUTH ONCE DAILY AT BEDTIME 30 Not-Taking Flomax 0.4 MG TAKE ONE CAPSULE BY MOUTH ONCE DAILY 30 MINUTES AFTER THE SAME MEAL EACH DAY 30 Active Oxybutynin Chloride 5 MG TAKE ONE TABLET BY MOUTH TWICE DAILY 30 Active Amlodipine Besylate 10 MG TAKE ONE TABLET BY MOUTH ONCE DAILY 30 Active Proscar 5 MG TAKE 1 TABLET BY MOUTH ONCE DAILY. 30 Active Proventil HFA 108 (90 Base) MCG/ACT Inhalation every 6 hrs 2 puffs as needed 6h Active Stool Softener 100 MG Orally Once a day 1 capsule as needed 24h Active Fish Oil 1000 MG Orally 2 times a day 1 tablet 12h Active Finasteride 5 MG TAKE ONE TABLET BY MOUTH ONCE DAILY 30 Not- Taking Aricept 5 mg Orally Once a day 1 tablet at bedtime 24h 30 days Active Aspirin 81 MG Orally Once a day 1 tablet 24h Active Trazodone HCl 100 mg Orally Once a day 1 tablet at bedtime 24h Not -Taking RESULTS No Results PROCEDURES Procedure Date Ordered Result Body Site [facility] VISIT ESTABLISHED PATIENT September 19, 2017 URINALYSIS, AUTO, W/O SCOPE September 19, 2017 LAB NOT BILLED BY [facility] September 19, 2017 VENIPUNCT, ROUTINE* September 19, 2017 INSTRUCTIONS MEDICATIONS ADMINISTERED No [...] Hospitalization History foot fracture Hospitalization History [facility]- Back Pain 03/24/2017
--- OUTSIDE RECORDS SUMMARY | 2018-04-10 18:02 | XMS REPORT ---
Author Author GELY SHAY Organization [facility] Address [address] [place] [address] Care Team Providers Care Dairy Consultant Name Role Phone GELYGLORIASHAY Unavailable PROBLEMS Type Condition ICD9-CM Code VQO48-DZ Code Onset Dates Condition Status SNOMED Code Problem Color blindness H53.50 Active 737669936 Problem Presbyopia of both eyes H52.4 Active 90526569 Problem Nuclear senile cataract of both eyes H25.13 Active 174251874 Problem Astigmatism of both eyes, unspecified type H52.203 Active 01955845 Problem Overactive bladder N32.81 Active 882449847 Problem Essential hypertension I10 Active 27794534 Problem Other chronic pain G89.29 Active 04039949 Problem Hypermetropia of both eyes H52.03 Active 18853360 Problem Alzheimer's disease, unspecified G30.9 Active 675094770 Problem Mild episode of recurrent major depressive disorder F33.0 Active 881653823 Problem 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 Active 372075824 Problem Major depressive disorder, single episode, mild F32.0 Active 85083213 Problem Chronic fatigue R53.82 Active 36074341 Problem Hydrocele, unspecified hydrocele type N43.3 Active 91338595 Problem Other acute pulmonary embolism without acute cor pulmonale I26.99 Active 882757942 Problem 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 Active 565558566 Problem Asymptomatic microscopic hematuria R31.21 Active 255132473 Problem Gait instability R26.81 Active 06659455 Problem PVD (peripheral vascular disease) I73.9 Active 572808093 Problem At high risk for falls Z91.81 Active 772040912264947853 Problem 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 Active 16661364 Problem Benign non-nodular prostatic hyperplasia with lower urinary tract symptoms N40.1 Active 553363058 Problem Alzheimers disease with late onset G30.1 Active 192604694 Problem Renal cyst, left Q61.00 Active 95544775 Problem Mixed hyperlipidemia E78.2 Active 416738555 Problem Anxiety F41.9 Active 38424201 Problem Transient cerebral ischemia, unspecified transient cerebral ischemia type G45.9 Active 979038655 Problem Primary insomnia F51.01 Active 287964359 ALLERGIES No Information ENCOUNTERS Encounter Location Date Diagnosis [place] [address] [address] Dec, [place] [address] 64417- 8649 Nov, Essential hypertension I10 and Mixed hyperlipidemia E78.2 [place] [address] 935260- 9163 Oct, Edema leg R60.0 [place] [address] 30014- 4160 September, [place] [address] 43340- 6965 September, Alzheimers disease with late onset G30.1 and Mild episode of recurrent major depressive disorder F33.0 [place] [address] [address]39- 9648 September, PVD (peripheral vascular disease) I73.9 ; Major depressive disorder, single episode, mild F32.0 ; Chronic fatigue R53.82 ; Weight gain R63.5 and Arthralgia, unspecified joint M25.50 [place] [address] 65[address]- 7353 Aug, Acute low back pain, unspecified back pain laterality, with sciatica presence unspecified M54.5 [place] [address] 85126- 0183 Aug, Acute low back pain, unspecified back pain laterality, with sciatica presence unspecified M54.5 [place] [address] 74301- 9937 Aug, Pain R52 [place] [address], [place] [address] 27[address] Jul, [place] [address] [place] [id number] [place] [address] 46631- 5558 Jun, [place] [address] [place] [id number] [place] [address] 84946- 2113 07 Jun, 2017 Medicare annual wellness visit, initial Z00.00 ; Mixed hyperlipidemia E78.2 ; Essential hypertension I10 ; Anxiety F41.9 ; Alzheimers disease with late onset G30.1 ; 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 ; Overactive bladder N32.81 ; Primary insomnia F51.01 ; At high risk for falls Z91.81 and Encounter for immunization Z23 [place] [address] [place] [id number] [place] [address] 91592- 5460 May, [place] [address] 6[address]- 2292 May, Essential hypertension I10 and Transient cerebral ischemia, unspecified transient cerebral ischemia type G45.9 [facility] [address] [place] [id number] [place] [address] [id number] May, Dental examination Z01.20 and Dental caries K02.9 [place] [address] [place] [id number] [place] [address] 43407- 4704 May, [place] [address] [place] [id number] [place] [address] 63840- 5869 May, [place] [address] [place] [id number] [place] [address] 55858- 5548 May, Alzheimers disease with late onset G30.1 [place] [address] [place] [id number] [place] [address] 90692- 0630 Apr, [place] [address] [place] [id number] [place] [address] 01413- 6107 Apr, Alzheimers disease with late onset G30.1 and Mild episode of recurrent major depressive disorder F33.0 [place] [id number] [place] [address] 11982- 5542 Mar, Mild episode of recurrent major depressive disorder F33.0 [facility] [address] [place] [id number] [place] [address] 18918- 6086 Mar, Mixed hyperlipidemia E78.2 ; Essential hypertension I10 ; Asymptomatic microscopic hematuria R31.21 and Renal cyst, left Q61.00 [place] [address] [place] [id number] [place] [address] 95851- 2496 Mar, [facility] [address] [place] [id number] [place] [address] 27258- 1934 Feb, Encounter for immunization Z23 [place] [address] [place] [id number] [place] [address] 85797- 9335 Feb, [facility] [address] [place] [id number] [place] [address] 55352- 4681 Feb, [facility] [address] [place] [id number] [place] [address] 64099 -2247 Feb, ANUG (acute necrotizing ulcerative gingivitis) A69.1 [place] [address] [place] [id number] [place] [address] 56678- 9991 Feb, [facility] [address] [place] [id number] [place] [address] 02686- 9107 Feb, Mild episode of recurrent major depressive disorder F33.0 [facility] [address] [place] [id number] [place] [address] 45899- 9777 Feb, Alzheimers disease with late onset G30.1 and Mild episode of recurrent major depressive disorder F33.0 [facility] [address] [place] [id number] [place] [address] 07193- 6178 Jan, Alzheimers disease with late onset G30.1 [facility] [address] [place] [address] 05220- 4524 18 Jan, 2017 Gait instability R26.81 [facility] [address] [id number] [place] [address] Jan [facility] [address] [id number] [place] [address] Dec [facility] [address] [place] [id number] [place] [address] 03983- 9449 Dec, [facility] [address] [place] [id number] [place] [address] 61495- 6693 Dec, [facility] [address] [place] [id number] [place] [address] 21501- 0465 Dec, Essential hypertension I10 ; Transient cerebral ischemia, unspecified transient cerebral ischemia type G45.9 and Anxiety F41.9 [facility] [address] [place] [id number] [place] [address] 07654- 5246 Dec, Gait instability R26.81 [facility] [address] [place] [id number] [place] [address] 17221- 7802 Dec, [facility] [address] [place] [id number] [place] [address] 93723- 4298 Nov, Alzheimers disease with late onset G30.1 and Mild episode of recurrent major depressive disorder F33.0 [facility] [address] [place] [id number] [place] [address] 96569- 6111 Nov, [facility] [address] [place] [id number] [place] [address] 54036- 6871 Nov, Gait instability R26.81 [facility] [address] [place] [id number] [place] [address] 31876- 9761 Nov, Anxiety F41.9 [facility] [address] [place] [id number] [place] [address] 64784- 1093 Nov, [facility] [address] [place] [id number] [place] [address] 90248- 0367 Nov, [facility] [address] [place] [id number] [place] [address] 42940- 1978 Oct, Gait instability R26.81 [facility] [address] [place] [address] 53428- 0107 14 Oct, 2016 Anxiety F41.9 [facility] [address] [place] [id number] [place] [address] 30481- 6033 13 Oct, 2016 Gait instability R26.81 [facility] [address] [place] [id number] [place] [address] 01619- 1144 12 Oct, 2016 Gait instability R26.81 [facility] [address] [place] [id number] [place] [address] 72504- 4474 Oct, [facility] [address] [place] [id number] [place] [address] 96871- 8977 Oct, Anxiety F41.9 ; Chronic 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 use Z79.899 ; Encounter for immunization Z23 and Transient cerebral ischemia, unspecified transient cerebral ischemia type G45.9 [facility] [address] [place] [id number] [place] [address] 78527- 5899 September, [facility] [address] [place] [id number] [place] [address] 42772- 9280 September, Gait instability R26.81 [facility] [address] [place] [id number] [place] [address] 83688- 9358 September, [facility] [address] [place] [id number] [place] [address] 72423- 2311 September, [facility] [address] [place] [id number] [place] [address] 79328- 5743 September, [facility] [address] [place] [id number] [place] [address] 61821- 6321 September, Alzheimers disease with late onset G30.1 and Mild episode of recurrent major depressive disorder F33.0 [facility] [address], [place] [address]- 2693 September, [facility] [address] [place] [id number] [place] [address] 59006- 4301 September, [facility] [address], [place] [address]- 0194 September, [facility] [address], [place] [address]- 9748 September, Mild episode of recurrent major depressive disorder F33.0 [facility] [address] [place] [id number] [address]- 8599 Aug, Mild episode of recurrent major depressive disorder F33.0 ; Alzheimers disease with late onset G30.1 ; Other acute pulmonary embolism without acute cor pulmonale I26.99 and Cough R05 [facility] [address], [place] [address]- 9204 Aug, [facility] [address], [place] [address]- 4825 Aug, Gait instability R26.81 [facility] [address], [place] [address]- 2877 Aug, Alzheimers disease with late onset G30.1 and Mild episode of recurrent major depressive disorder F33.0 [facility] [address], [place] [address]- 9094 Aug, [facility] [address] [place] [id number] [address]- 3264 Aug, 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 [facility] [address], [place] [address]- 3258 Jul, Alzheimers disease with late onset G30.1 [facility] [address], [place] [address]- 8670 Jul, [facility] [address] [place] [id number] [address]- 0150 Jul, 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 [facility] [address], [place] [address]- 9683 Jul, Anxiety F41.9 ; Alzheimers disease with late onset G30.1 and Transient cerebral ischemia, unspecified transient cerebral ischemia type G45.9 [facility] [address] [place] [id number] [place] [address] 71761- 6510 Jun, Essential hypertension I10 [facility] [address] [place] [id number] [place] [address] 35577- 8414 Jun, [facility] [address] [place] [id number] [place] [address] 35137- 5418 Jun, [facility] [address] [place] [id number] [place] [address] 57694- 3597 Jun, [facility] [address] [place] [id number] [place] [address] 69763- 9280 Jun, Essential hypertension I10 ; Benign non-nodular prostatic hyperplasia with lower urinary tract symptoms N40.1 ; Anxiety F41.9 ; Pain in right knee M25.561 ; Pain in left knee M25.562 and Other chronic pain G89.29 [facility] [address] [place] [id number] [place] [address] 95392- 1049 May, [facility] [address] [place] [id number] [place] [address] 36332- 5878 May, [facility] [address] [place] [id number] [place] [address] 72308- 4465 May, [facility] [address] [place] [id number] [place] [address] 08381- 9399 Apr, [facility] [address] [place] [id number] [place] [address] 10286- 2712 Mar, [facility] [address] [place] [id number] [place] [address] 40828- 7008 Mar, Mixed hyperlipidemia E78.2 and Essential hypertension I10 [facility] [address] [place] [id number] [place] [address] 52363- 7796 Feb, [facility] [address] [place] [id number] [place] [address] 08462- 2322 Feb, Ingrown nail L60.0 and Onychomycosis B35.1 [place] [address] 05815- 3436 Feb, Paronychia, left L03.012 [facility] [address] 37475- 2038 Jan, [facility] [address] 35035- 5888 Jan, Cramps of right lower extremity R25.2 and Mixed hyperlipidemia E78.2 [place] [address] 99531- 5883 Jan, Cramps of right lower extremity R25.2 ; Essential hypertension I10 ; Mixed hyperlipidemia E78.2 ; Chronic 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 use Z79.899 and Claudication I73.9 [place] [address] 43568- 4586 Jan, Right leg pain M79.604 [place] [address] 62873- 8074 Dec, [place] [address] 75764- 9360 Nov, [place] [address] [place] [id number] [place] [address] 78914- 5350 Nov, [facility] [address] 10358- 5685 Nov, [facility] [address] 29591- 3344 Nov, Dermatofibroma D23.9 [facility] [address] [place] [id number] [place] [address] 08492- 1617 Nov, [facility] [address] [place] [id number] [place] [address] 12958- 0423 Oct, [facility] [address], [place] [address]- 7772 Oct, [facility] [address] [place] [id number] [place] [address] 60414- 6866 September, Benign non-nodular prostatic hyperplasia with lower urinary tract symptoms N40.1 ; Essential hypertension I10 ; Overactive bladder N32.81 and Fatigue, unspecified type R53.83 [facility] [address] [place] [id number] [place] [address] 50878- 9925 September, [facility] [address] [place] [id number] [place] [address] 42188- 0434 September, [facility] [address] [place] [id number] [place] [address] 93096- 6258 Aug, [facility] [address] [place] [id number] [place] [address] 49198- 7251 Jul, [facility] [address] [place] [id number] [place] [address] 98474- 1593 Jul, Pelvic pain R10.2 ; Jock itch B35.6 ; Essential hypertension I10 and Hydrocele, unspecified hydrocele type N43.3 [facility] [address], [place] [address]- 2878 Jun, [facility] [address], [place] [address]- 6868 Jun, [facility] [address] [place] [id number] [place] [address] 72315- 2786 Jun, Benign non-nodular prostatic hyperplasia with lower urinary tract symptoms N40.1 [facility] [address] [place] [id number] [place] [address] 64931- 6078 Jun, Benign non-nodular prostatic hyperplasia with lower urinary tract symptoms N40.1 [facility] [address], [place] [address]- 9255 Jun, [facility] [address] [place] [id number] [place] [address] 06193- 3864 May, [facility] [address] [place] [id number] [place] [address] 98254- 5869 Apr, [facility] [address] [place] [id number] [place] [address] 29388- 4584 Apr, [facility] [address] 90910- 4499 Apr, Other acute pulmonary embolism without acute cor pulmonale I26.99 ; Anxiety F41.9 ; 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 and [facility] 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 use Z79.899 [facility] [address] 94319- 2296 Apr, [facility] [address] [place] [id number] [place] [address] 68652- 8893 Apr, [facility] [address] [place] [id number] [place] [address] 61270- 8282 Mar, [facility] [address] [place] [id number] [place] [address] 69622- 8799 Mar, [facility] [address] [place] [id number] [place] [address] 12790- 6948 Feb, Cough R05 [facility] [address] [place] [id number] [place] [address] 25062- 0106 Feb, [facility] [address] [place] [id number] [place] [address] 42184- 0305 Feb, Encounter for immunization Z23 [facility] [address] [place] [id number] [place] [address] 53487- 4495 Feb, Other and unspecified hyperlipidemia 272.4 [facility] [address] [place] [id number] [place] [address] 43842- 2909 Jan, [facility] [address] [place] [id number] [place] [address] 11446- 3579 Jan, TIA (transient ischemic attack) 435.9 [facility] [address], [place] [address]- 6524 Dec, [facility] [address], [place] [address]- 7028 Dec, [facility] [address], [place] [address]- 9133 Dec, [facility] [address] [place] [id number] [place] [address] 26191- 5215 Nov, [facility] [address] [place] [address] 91234- 2922 Oct, Chronic cough 786.2 [facility] [address] [place] [id number] [place] [address] 74555- 1586 Oct, [facility] [address] [place] [id number] [place] [address] 40787- 2757 Oct, [facility] [address], [place] [address]- 5500 Oct, [facility] [address] [place] [address] 43027- 2548 Oct, [facility] [address], [place] [address]- 1809 Oct, Chronic cough 786.2 [facility] [address], [place] [address]- 8607 Oct, Cough 786.2 ; Hypertension 401.9 ; BPH (benign prostatic hyperplasia) 600.00 ; Other and unspecified hyperlipidemia 272.4 and Hydrocele 603.9 [facility] [address], [place] [address]- 2466 Oct, [facility] [address], [place] [address]- 1713 September, [facility] [address], [place] [address]- 6667 Aug, [facility] [place] [facility] [address] [id number] [place] [address]- 4456 Aug, [facility] [place] [facility] [address] [id number] [place] [address]- 4768 Jul, [facility] [place] [facility] [address] [id number] [place] [address]- 0151 Jul, [facility] [place] [facility] [address] [id number] [place] [address]- 1976 Jul, [facility] [place] [facility] [address] [id number] [place] [address]- 4305 Jul, [facility] [place] [facility] [address] [id number] [place] [address]- 1845 Jul, [facility] [place] [facility] [address] [facility] [id number] [place] [address]- 8890 Jun, [facility] [place] [facility] [address] [id number] [place] [address]- 2085 Jun, 2014 [facility] [place] [facility] [address] [facility] [id number] [place] [address]- 3241 Jun, [facility] [place] [facility] [address] [facility] [id number] [place] [address]- 5213 Jun, [facility] [place] [facility] [address] [facility] [id number] [place] [address]- 4875 Jun, [facility] [place] [facility] [address] [id number] [place] [address]- 8156 Jun, 2014 [facility] [place] [facility] [address] [id number] [place] [address]- 9322 Jun, 2014 [facility] [place] [facility] [address] [id number] [place] [address]- 7842 Jun, [facility] [place] [facility] [address] [facility] [id number] [place] [address]- 7535 May, [facility] [place] [facility] [address] [id number] [place] [address]- 9860 May, [facility] [address] [id number] [place] [address]- 3205 May, [facility] [place] [facility] [address] [id number] [place] [address]- 5784 May, [facility] [place] [facility] [address] [id number] [place] [address]- 6073 May, [facility] [place] [facility] [address] [id number] [place] [address]- 7532 May, [facility] [place] [facility] [address] [id number] [place] [address]- 1223 May, [facility] [place] [facility] [address] [id number] [place] [address]- 9886 May, [facility] [place] [facility] [address] [id number] [place] [address]- 8572 May, [facility] [place] [facility] [address] [id number] [place] [address]- 3538 May, [facility] [place] [facility] [address] [id number] [place] [address]- 2636 Apr, [facility] [place] [facility] [address] [id number] [place] [address]- 9392 Apr, [facility] [place] [facility] [address] [id number] [place] [address]- 3294 Apr, [facility] [place] [facility] [address] [id number] [place] [address]- 8291 Apr, [facility] [place] [facility] [address] [id number] [place] [address]- 5381 Apr, [facility] [place] [facility] [address] [id number] [place] [address]- 8315 Apr, [facility] [place] [facility] [address] [id number] [place] [address]- 8715 Apr, [facility] [place] [facility] [address] [id number] [place] [address]- 4888 Apr, [facility] [place] [facility] [address] [id number] [place] [address]- 0899 Mar, [facility] [place] [facility] [address] [id number] [place] [address] Mar, [facility] [place] [facility] [address] [id number] [place] [address] Mar, [facility] [place] [facility] [address] [id number] [place] [address] Mar, [facility] [place] [facility] [address] [id number] [place] [address] Mar, [facility] [place] [facility] [address] [id number] [place] [address] Mar, [facility] [place] [facility] [address] [id number] [place] [address] Mar, [facility] [place] [facility] [address] [id number] [place] [address] Mar, [facility] [place] [facility] [address] [id number] [place] [address] Mar, [facility] [place] [facility] [address] [id number] [place] [address] Mar, [facility] [place] [facility] [address] [id number] [place] [address] Feb, [facility] [place] [facility] [address] [id number] [place] [address] Feb, [facility] [place] [facility] [address] [id number] [place] [address] Feb, [facility] [place] [facility] [address] [id number] [place] [address] Feb, [facility] [place] [facility] [address] [id number] [place] [address] 14 Feb, 2014 [facility] [place] [facility] [address] [id number] [place] [address] 14 Feb, 2013 [facility] [place] [facility] [address] [id number] [place] [address] 30 Jan, 2013 [facility] [place] [facility] [address] [id number] [place] [address] 30 Jan, 2013 [facility] [place] [facility] [address] [id number] [place] [address] 24 Jan, 2013 [facility] [place] [facility] [address] [id number] [place] [address] 24 Jan, 2013 [facility] [place] [facility] [address] [id number] [place] [address] 19 Jan, 2013 [facility] [place] [facility] [address] [id number] [place] [address] 19 Jan, 2013 [facility] [place] [facility] [address] [id number] [place] [address] 16 Jan, 2013 [facility] [place] [facility] [address] [id number] [place] [address] 16 Jan, 2013 [facility] [place] [facility] [address] [id number] [place] [address]79 16 Jan, 2013 [facility] [place] [facility] [address] [id number] [place] [address] 1991 16 Jan, 2013 [facility] [place] [facility] [address] [id number], [place] [address] 12 Jan, 2013 [facility] [place] [facility] [address] [id number] [place] [address] 12 Jan, 2013 [facility] [place] [facility] [address] [id number] [place] [address] 49[address] Dec, [facility] [place] [facility] [address] [id number] [place] [address] 2984 Dec, [facility] [place] [facility] [address] [id number] [place] [address] 4899 Dec, [facility] [place] [facility] [address] [id number] [place] [address] 6426 Dec, [facility] [place] [facility] [address] [id number] [place] [address] 4039 Dec, [facility] [place] [facility] [address] [id number] [place] [address]- 6829 Dec, [facility] [place] [facility] [address] [id number] [place] [address] 7377 Nov, [facility] [place] [facility] [address] [id number] [place] [address] 5171 Nov, [facility] [place] [facility] [address] [id number] [place] [address]- 1073 Nov, [facility] [place] [facility] [address] [id number] [place] [address]- 7406 Nov, [facility] [place] [facility] [address] [id number] [place] [address]- 5583 Nov, [facility] [place] [facility] [address] [id number] [place] [address] 3394 Nov, [facility] [place] [facility] [address] [id number] [place] [address] 8256 Nov, [facility] [place] [facility] [address] [id number] [place] [address]- 4913 Nov, [facility] [place] [facility] [address] [id number] [place] [address]- 3874 Oct, [facility] [place] [facility] [address] [id number] [place] [address]- 5193 Oct, [facility] [place] [facility] [address] [id number] [place] [address]- 8238 Oct, [facility] [place] [facility] [address] [id number] [place] [address]- 9634 Oct, [facility] [place] [facility] [address] [id number] [place] [address]- 0724 September, [facility] [place] [facility] [address] [id number] [place] [address]006 September, [facility] [place] [facility] [address] [id number] [place] [address] 5649 September, [facility] [place] [facility] [address] [id number] [place] [address] 9000 September, [facility] [place] [facility] [address] [id number] [place] [address] 9913 September, [facility] [place] [facility] [address] [id number] [place] [address]- 8436 September, [facility] [place] [facility] [address] [id number] [place] [address] 3021 Aug, [facility] [place] [facility] [address] [id number] [place] [address] 6479 Aug, [facility] [place] [facility] [address] [id number] [place] [address]- 7869 Aug, [facility] [place] [facility] [address] [id number] [place] [address] 6165 Aug, [facility] [place] [facility] [address] [id number] [place] [address] 6605 Aug, [facility] [place] [facility] [address] [id number] [place] [address]- 4051 Aug, [facility] [place] [facility] [address] [id number] [place] [address]- 5567 Aug, [facility] [place] [facility] [address] [id number] [place] [address]- 1725 Aug, [facility] [place] [facility] [address] [id number] [place] [address] Jul, [facility] [place] [facility] [address] [id number], [place] [address] Jul, [facility] [place] [facility] [address] [id number] [place] [address]- 2767 Jun, [facility] [place] [facility] [address] [id number] [place] [address]- 3606 Jun, [facility] [place] [facility] [address] [id number] [place] [address]- 7896 Jun, [facility] [place] [facility] [address] [id number] [place] [address] Jun, [facility] [place] [facility] [address] [id number] [place] [address] Jun, [facility] [place] [facility] [address] [id number] [place] [address] 6307 May, [facility] [place] [facility] [address] [id number] [place] [address]- 1550 May, [facility] [place] [facility] [address] [id number] [place] [address]- 2450 May, [facility] [place] [facility] [address] [id number] [place] [address]- 9745 May, [facility] [place] [facility] [address] [facility] [id number] [place] [address]- 2930 Apr, [facility] [place] [facility] [address] [id number] [place] [address]- 5499 Apr, [facility] [place] [facility] [address] [id number], [place] [address] Mar, [facility] [place] [facility] [address] [id number] [place] [address] 9798 Mar, [facility] [place] [facility] [address] [id number] [place] [address] Feb, [facility] [place] [facility] [address] [id number], [place] [address] 6075 Feb, [facility] [place] [facility] [address] [id number] [place] [address] 1213 Feb, [facility] [place] [facility] [address] [id number] [place] [address] 7079 Feb, [facility] [place] [facility] [address] [id number] [place] [address]- 3260 Feb, [facility] [place] [facility] [address] [id number] [place] [address]- 5765 Feb, [facility] [place] [facility] [address] [id number] [place] [address]- 9768 Feb, [facility] [place] [facility] [address] [id number] [place] [address]- 0511 Jan, [facility] [place] [facility] [address] [id number] [place] [address]- 1629 Jan, [facility] [place] [facility] [address] [id number] [place] [address]- 6794 Dec, [facility] [place] [facility] [address] [id number] [place] [address]- 0673 Dec, [facility] [place] [facility] [address] [id number] [place] [address]- 9739 Dec, [facility] [place] [facility] [address] [id number] [place] [address]- 0559 Dec, [facility] [place] [facility] [address] [id number] [place] [address]- 0698 Dec, [facility] [place] [facility] [address] [id number] [place] [address]- 5690 Nov, [facility] [place] [facility] [address] [id number] [place] [address]- 3254 Nov, [facility] [place] [facility] [address] [id number] [place] [address]- 7615 Nov, [facility] [place] [facility] [address] [id number] [place] [address]- 6536 Oct, [facility] [address] [id number] [place] [address]- 4228 Oct, [facility] [place] [facility] [address] [id number] [place] [address]- 9307 Oct, [facility] [place] [facility] [address] [id number] [place] [address]- 7680 September, [facility] [place] [facility] [address] [id number] [place] [address]- 5204 Aug, [facility] [place] [facility] [address] [id number] [place] [address]- 5377 Aug, [facility] [place] [facility] [address] [id number] [place] [address]- 1141 Aug, [facility] [place] [facility] [address] [id number] [place] [address]- 1121 Jul, [facility] [place] [facility] [address] [id number] [place] [address]- 6686 Jul, [facility] [place] [facility] [address] [id number] [place] [address]- 2326 Jul, [facility] [place] [facility] [address] [id number] [place] [address]- 5415 Jul, [facility] [place] [facility] [address] [id number] [place] [address]- 7373 Jul, [facility] [place] [facility] [address] [id number] [place] [address]- 2131 Jun, [facility] [place] [facility] [address] [id number] [place] [address]- 3940 Jun, [facility] [place] [facility] [address] [id number] [place] [address]- 1312 May, [facility] [place] [facility] [address] [id number] [place] [address] 2547 May, [facility] [place] [facility] [address] [id number] [place] [address] 2546 Apr, [facility] [address] [id number] [place] [address]- 2136 Apr, [facility] [place] [facility] [address] [id number] [place] [address] 2546 Mar, [facility] [address] [id number] [place] [address]- 2546 Mar, [facility] [place] [facility] [address] [id number] [place] [address]- 2546 Mar, [facility] [address] [facility] [id number] [place] [address]- 2536 Mar, [facility] [address] [id number][place] [id number] Feb, [facility] [id number] [address]- 2836 Feb, [facility] [place] [facility] [address] [id number] [place] [address]- 2756 Feb, [facility] [place] [facility] [address] [id number] [place] [address]- 2136 Feb, [facility] [address] [id number] [place] [address]- 0986 Feb, [facility] [place] [facility] [address] [id number] [place] [address]- 2546 Feb, [facility] [place] [facility] [address] [id number], [place] [address]- 2546 Feb, [facility] [place] [facility] [address] [id number] [place] [address]- 2546 Jan, [facility] [place] [facility] [address] [id number] [place] [address]- 2546 Jan, [facility] [place] [facility] [address] [id number], [place] [address]- 2546 Dec, [facility] [place] [facility] [address] [id number] [place] [address] 254 Dec, [facility] [address] [id number] [place] [address]- 2643 Nov, [facility] [address] [id number] [place] [address]- 2546 Oct, [facility] [address] [id number] [place] [address] 2546 September, [facility] [address] [id number] [place] [address]- 2540 September, [facility] [address] [id number] [place] [address]- 2546 September, [facility] [address] [id number] [place] [address]- 4081 Aug, [facility] [address] [id number] [place] [address]- 9947 May, [facility] [address] [id number] [place] [address]- 1771 May, [facility] [address] [id number] [place] [address]- 0402 Apr, [facility] [address] [id number] [place] [address]- 0813 Apr, [facility] [address] [id number] [place] [address]- 3936 Apr, [facility] [address] [id number] [place] [address]- 2544 Apr, [facility] [place] [facility] [address] [id number] [place] [address]- 2546 Apr, [facility] [address] [id number] [place] [address]- 2546 Mar, [facility] [address] [id number] [place] [address]- 7706 Feb, [facility] [address] [facility] [id number], [place] [address]- 2219 Feb, [facility] [address] [facility] [id number], [place] [address]- 5458 September, [facility] [address] [facility] [id number], [place] [address]- 7022 Mar, [facility] [address] [facility] [id number], [place] [address]- 0679 Feb, [facility] [address] [facility] [id number], [place] [address]- 5086 Feb, [facility] [address] [facility] [id number], [place] [address]- 4258 Feb, IMMUNIZATIONS No Known Immunizations SOCIAL HISTORY Never Assessed REASON FOR VISIT Xray (walk-in) MHill RT(R) PLAN OF CARE VITAL SIGNS MEDICATIONS Unknown Medications RESULTS Name Result Date Reference Range Xray : Spine, Lumbar 2-3 views (IN HOUSE) 2017-09-03 PROCEDURES Procedure Date Ordered Result Body Site X-RAY EXAM OF LOWER SPINE September 03, 2017 INSTRUCTIONS MEDICATIONS ADMINISTERED No Known Medications [...] Hospitalization History [facility]- Back Pain 03/24/2017
--- OUTSIDE RECORDS SUMMARY | 2018-04-10 18:03 | XMS REPORT ---
Author Author GELY SHAY Organization [facility] Address [address] [place] [address] Care Team Providers Care Superintendent Police Name Role Phone GELYGLORIASHAY Unavailable PROBLEMS Type Condition ICD9-CM Code OTE30-ZB Code Onset Dates Condition Status SNOMED Code Problem Color blindness H53.50 Active 375500369 Problem Presbyopia of both eyes H52.4 Active 60468008 Problem Nuclear senile cataract of both eyes H25.13 Active 787920238 Problem Astigmatism of both eyes, unspecified type H52.203 Active 91830207 Problem Overactive bladder N32.81 Active 407640616 Problem Essential hypertension I10 Active 38288053 Problem Other chronic pain G89.29 Active 83153315 Problem Hypermetropia of both eyes H52.03 Active 41797187 Problem Alzheimer's disease, unspecified G30.9 Active 435748501 Problem Mild episode of recurrent major depressive disorder F33.0 Active 100180744 Problem 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 Active 721404491 Problem Major depressive disorder, single episode, mild F32.0 Active 91597641 Problem Chronic fatigue R53.82 Active 28008834 Problem Hydrocele, unspecified hydrocele type N43.3 Active 04926112 Problem Other acute pulmonary embolism without acute cor pulmonale I26.99 Active 559031592 Problem 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 Active 762101477 Problem Asymptomatic microscopic hematuria R31.21 Active 266319707 Problem Gait instability R26.81 Active 94956139 Problem PVD (peripheral vascular disease) I73.9 Active 426246463 Problem At high risk for falls Z91.81 Active [id number] Problem 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 Active 87560178 Problem Benign non-nodular prostatic hyperplasia with lower urinary tract symptoms N40.1 Active 462810443 Problem Alzheimers disease with late onset G30.1 Active 828779108 Problem Renal cyst, left Q61.00 Active 06131797 Problem Mixed hyperlipidemia E78.2 Active 841984584 Problem Anxiety F41.9 Active 59469098 Problem Transient cerebral ischemia, unspecified transient cerebral ischemia type G45.9 Active 426997294 Problem Primary insomnia F51.01 Active 403106538 ALLERGIES No Information ENCOUNTERS Encounter Location Date Diagnosis [place] [address] [address]- [address]778 Dec, [place] [address] 48099- 3630 Nov, Essential hypertension I10 and Mixed hyperlipidemia E78.2 [place] [address] 043753- 4538 Oct, Edema leg R60.0 [place] [address] 60219- 1051 September, [place] [address] [address]- [address] September, Alzheimers disease with late onset G30.1 and Mild episode of recurrent major depressive disorder F33.0 [place] [address] 25771- 7341 September, PVD (peripheral vascular disease) I73.9 ; Major depressive disorder, single episode, mild F32.0 ; Chronic fatigue R53.82 ; Weight gain R63.5 and Arthralgia, unspecified joint M25.50 [place] [address] 9[address]- 4512 Aug, Acute low back pain, unspecified back pain laterality, with sciatica presence unspecified M54.5 [place] [address] 56635- 9042 Aug, Acute low back pain, unspecified back pain laterality, with sciatica presence unspecified M54.5 [place] [address] 75352- 2767 Aug, Pain R52 [place] [address] [address] Jul, [place] [address] [place] [id number] [place] [address] 10871- 7752 Jun, [place] [address] [place] [id number] [place] [address] 08773- 5394 07 Jun, 2017 Medicare annual wellness visit, initial Z00.00 ; Mixed hyperlipidemia E78.2 ; Essential hypertension I10 ; Anxiety F41.9 ; Alzheimers disease with late onset G30.1 ; 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 ; Overactive bladder N32.81 ; Primary insomnia F51.01 ; At high risk for falls Z91.81 and Encounter for immunization Z23 [place] [address] [place] [id number] [place] [address] 87583- 9027 May, [place] [address] 37358- 4888 May, Essential hypertension I10 and Transient cerebral ischemia, unspecified transient cerebral ischemia type G45.9 [facility] [address] [place] [id number] [place] [address] [id number] May, Dental examination Z01.20 and Dental caries K02.9 [place] [address] [place] [id number] [place] [address] 41486- 6617 May, [place] [address] [place] [id number] [place] [address] 73054- 6848 May, [place] [address] [place] [id number] [place] [address] 07507- 3769 May, Alzheimers disease with late onset G30.1 [place] [address] [place] [id number] [place] [address] 38421- 0883 Apr, [place] [address] [place] [id number] [place] [address] 11805- 7547 Apr, Alzheimers disease with late onset G30.1 and Mild episode of recurrent major depressive disorder F33.0 [place] [id number] [place] [address] 42515- 6926 Mar, Mild episode of recurrent major depressive disorder F33.0 [facility] [address] [place] [id number] [place] [address] 94814- 5227 Mar, Mixed hyperlipidemia E78.2 ; Essential hypertension I10 ; Asymptomatic microscopic hematuria R31.21 and Renal cyst, left Q61.00 [place] [address] [place] [id number] [place] [address] 07868- 5463 Mar, [facility] [address] [place] [id number] [place] [address] 93834- 1500 Feb, Encounter for immunization Z23 [place] [address] [place] [id number] [place] [address] 26666- 2933 Feb, [facility] [address] [place] [id number] [place] [address] 34511- 7375 Feb, [facility] [address] [place] [id number] [place] [address] 61631 -0293 Feb, ANUG (acute necrotizing ulcerative gingivitis) A69.1 [place] [address] [place] [id number] [place] [address] 31185- 9489 Feb, [facility] [address] [place] [id number] [place] [address] 21503- 1127 Feb, Mild episode of recurrent major depressive disorder F33.0 [facility] [address] [place] [id number] [place] [address] 57333- 4994 Feb, Alzheimers disease with late onset G30.1 and Mild episode of recurrent major depressive disorder F33.0 [facility] [address] [place] [id number] [place] [address] 38107- 7183 Jan, Alzheimers disease with late onset G30.1 [facility] [id number] [place] [address] 03287- 8433 18 Jan, 2017 Gait instability R26.81 [facility] [address] [id number] [place] [address] Jan [facility] [address] [id number] [place] [address] Dec [facility] [address] [place] [id number] [place] [address] 29300- 3520 Dec, [facility] [address] [place] [id number] [place] [address] 96117- 2272 Dec, [facility] [address] [place] [id number] [place] [address] 90620- 0298 Dec, Essential hypertension I10 ; Transient cerebral ischemia, unspecified transient cerebral ischemia type G45.9 and Anxiety F41.9 [facility] [address] [place] [id number] [place] [address] 92432- 2030 Dec, Gait instability R26.81 [facility] [address] [place] [id number] [place] [address] 47987- 4932 Dec, [facility] [address] [place] [id number] [place] [address] 13035- 3070 Nov, Alzheimers disease with late onset G30.1 and Mild episode of recurrent major depressive disorder F33.0 [facility] [address] [place] [id number] [place] [address] 65985- 0493 Nov, [facility] [address] [place] [id number] [place] [address] 68564- 2582 Nov, Gait instability R26.81 [facility] [address] [place] [id number] [place] [address] 02166- 8003 Nov, Anxiety F41.9 [facility] [address] [place] [id number] [place] [address] 64035- 9996 Nov, [facility] [address] [place] [id number] [place] [address] 61173- 5074 Nov, [facility] [address] [place] [id number] [place] [address] 79640- 0823 Oct, Gait instability R26.81 [facility] [address] [place] [address] 32442- 4075 14 Oct, 2016 Anxiety F41.9 [facility] [address] [place] [id number] [place] [address] 48527- 7793 13 Oct, 2016 Gait instability R26.81 [facility] [address] [place] [id number] [place] [address] 61093- 4922 12 Oct, 2016 Gait instability R26.81 [facility] [address] [place] [id number] [place] [address] 04098- 3809 Oct, [facility] [address] [place] [id number] [place] [address] 94217- 5707 Oct, Anxiety F41.9 ; Chronic 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 use Z79.899 ; Encounter for immunization Z23 and Transient cerebral ischemia, unspecified transient cerebral ischemia type G45.9 [facility] [address] [place] [id number] [place] [address] 84073- 3054 September, [facility] [address] [place] [id number] [place] [address] 68652- 9276 September, Gait instability R26.81 [facility] [address] [place] [id number] [place] [address] 49145- 8784 September, [facility] [address] [place] [id number] [place] [address] 16189- 7116 September, [facility] [address] [place] [id number] [place] [address] 30114- 0181 September, [facility] [address] [place] [id number] [place] [address] 89004- 3582 September, Alzheimers disease with late onset G30.1 and Mild episode of recurrent major depressive disorder F33.0 [facility] [address] [address]- 7618 September, [facility] [address] [place] [id number] [place] [address] 45713- 4325 September, [facility] [address] [address]- 2238 September, [facility] [address] [address]- 3571 September, Mild episode of recurrent major depressive disorder F33.0 [facility] [address] [place] [id number] [address]- 6423 Aug, Mild episode of recurrent major depressive disorder F33.0 ; Alzheimers disease with late onset G30.1 ; Other acute pulmonary embolism without acute cor pulmonale I26.99 and Cough R05 [facility] [address] [address]- 4488 Aug, [facility] [address] [address]- 0809 Aug, Gait instability R26.81 [facility] [address] [address]- 1129 Aug, Alzheimers disease with late onset G30.1 and Mild episode of recurrent major depressive disorder F33.0 [facility] [address] [address]- 7189 Aug, [facility] [address] [place] [address] [id number] [address]- 1971 Aug, 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 [facility] [address] [address]- 7886 Jul, Alzheimers disease with late onset G30.1 [facility] [address] [address]- 6999 Jul, [facility] [address] [place] [id number] [address]- 2178 Jul, 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 [facility] [address] [address]- 5335 Jul, Anxiety F41.9 ; Alzheimers disease with late onset G30.1 and Transient cerebral ischemia, unspecified transient cerebral ischemia type G45.9 [facility] [address] [place] [id number] [place] [address] 98690- 2424 Jun, Essential hypertension I10 [facility] [address] [place] [id number] [place] [address] 22557- 3377 Jun, [facility] [address] [place] [id number] [place] [address] 33020- 6409 Jun, [facility] [address] [place] [id number] [place] [address] 29996- 2350 Jun, [facility] [address] [place] [id number] [place] [address] 63565- 8115 Jun, Essential hypertension I10 ; Benign non-nodular prostatic hyperplasia with lower urinary tract symptoms N40.1 ; Anxiety F41.9 ; Pain in right knee M25.561 ; Pain in left knee M25.562 and Other chronic pain G89.29 [facility] [address] [place] [id number] [place] [address] 42238- 9530 May, [facility] [address] [place] [id number] [place] [address] 60647- 6216 May, [facility] [address] [place] [id number] [place] [address] 53682- 8513 May, [facility] [address] [place] [id number] [place] [address] 76903- 8906 Apr, [facility] [address] [place] [id number] [place] [address] 60857- 2258 Mar, [facility] [address] [place] [id number] [place] [address] 39711- 0976 Mar, Mixed hyperlipidemia E78.2 and Essential hypertension I10 [facility] [address] [place] [id number] [place] [address] 17804- 3624 Feb, [facility] [address] [place] [id number] [place] [address] 36811- 5608 Feb, Ingrown nail L60.0 and Onychomycosis B35.1 [place] [address] 79743- 0059 Feb, Paronychia, left L03.012 [facility] [address] 99767- 0430 Jan, [facility] [address] 84754- 6944 Jan, Cramps of right lower extremity R25.2 and Mixed hyperlipidemia E78.2 [place] [address] 16167- 6254 Jan, Cramps of right lower extremity R25.2 ; Essential hypertension I10 ; Mixed hyperlipidemia E78.2 ; Chronic 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 use Z79.899 and Claudication I73.9 [place] [address] 34467- 7876 Jan, Right leg pain M79.604 [place] [address] 05995- 3197 Dec, [place] [address] 45402- 9107 Nov, [place] [address] [place] [id number] [place] [address] 37961- 7891 Nov, [facility] [address] 18523- 0438 Nov, [facility] [address] 72297- 4008 Nov, Dermatofibroma D23.9 [facility] [address] [place] [id number] [place] [address] 72999- 8443 Nov, [facility] [address] [place] [id number] [place] [address] 23491- 4148 Oct, [facility] [address] [address]- 6112 Oct, [facility] [address] [place] [id number] [place] [address] 14677- 6946 September, Benign non-nodular prostatic hyperplasia with lower urinary tract symptoms N40.1 ; Essential hypertension I10 ; Overactive bladder N32.81 and Fatigue, unspecified type R53.83 [facility] [address] [place] [id number] [place] [address] 11558- 1506 September, [facility] [address] [place] [id number] [place] [address] 44507- 9652 September, [facility] [address] [place] [id number] [place] [address] 66205- 9947 Aug, [facility] [address] [place] [id number] [place] [address] 68686- 8235 Jul, [facility] [address] [place] [id number] [place] [address] 23050- 9957 Jul, Pelvic pain R10.2 ; Jock itch B35.6 ; Essential hypertension I10 and Hydrocele, unspecified hydrocele type N43.3 [facility] [address] [address]- 2940 Jun, [facility] [address] [address]- 1942 Jun, [facility] [address] [place] [id number] [place] [address] 19541- 2895 Jun, Benign non-nodular prostatic hyperplasia with lower urinary tract symptoms N40.1 [facility] [address] [place] [id number] [place] [address] 24326- 2940 Jun, Benign non-nodular prostatic hyperplasia with lower urinary tract symptoms N40.1 [facility] [address] [address]- 6482 Jun, [facility] [address] [place] [id number] [place] [address] 80407- 7909 May, [facility] [address] [place] [id number] [place] [address] 89383- 0573 Apr, [facility] [address] [place] [id number] [place] [address] 26335- 2619 Apr, [facility] [address] 89800- 0847 Apr, Other acute pulmonary embolism without acute cor pulmonale I26.99 ; Anxiety F41.9 ; 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 and intermediate 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 use Z79.899 [facility] [address] 16490- 1856 Apr, [facility] [address] [place] [id number] [place] [address] 78645- 3820 Apr, [facility] [address] [place] [id number] [place] [address] 46835- 7689 Mar, [facility] [address] [place] [id number] [place] [address] 15207- 0986 Mar, [facility] [address] [place] [address] [id number] [place] [address] 20069- 1130 Feb, Cough R05 [facility] [address] [place] [id number] [place] [address] 76342- 2813 Feb, [facility] [address] [place] [address] [id number] [place] [address] 61463- 4776 Feb, Encounter for immunization Z23 [facility] [address] [place] [address] [id number] [place] [address] 99785- 7232 Feb, Other and unspecified hyperlipidemia 272.4 [facility] [address] [place] [id number] [place] [address] 27129- 2444 Jan, [facility] [address] [place] [id number] [place] [address] 63752- 1357 Jan, TIA (transient ischemic attack) 435.9 [facility] [address] [address]- 7132 Dec, [facility] [address] [address]- 1311 Dec, [facility] [address] [address]- 2957 Dec, [facility] [address] [place] [id number] [place] [address] 61868- 3907 Nov, [facility] [id number] [place] [address] 90125- 9766 Oct, Chronic cough 786.2 [facility] [address] [id number] [place] [address] 68478- 5620 Oct, [facility] [address] [place] [id number] [place] [address] 39063- 6198 Oct, [facility] [address] [address]- 5321 Oct, [facility] [id number] [place] [address] 15006- 3541 Oct, [facility] [address] [address]- 3559 Oct, Chronic cough 786.2 [facility] [address] [address]- 1549 Oct, Cough 786.2 ; Hypertension 401.9 ; BPH (benign prostatic hyperplasia) 600.00 ; Other and unspecified hyperlipidemia 272.4 and Hydrocele 603.9 [facility] [address] [address]- 6873 Oct, [facility] [address] [address]- 2005 September, [facility] [address] [address]- 7139 Aug, [facility] [place] [facility] [address] [id number] [place] [address]- 2611 Aug, [facility] [place] [facility] [address] [id number] [place] [address]- 6877 Jul, [facility] [place] [facility] [address] [id number] [place] [address]- 3470 Jul, [facility] [place] [facility] [address] [id number] [place] [address]- 0991 Jul, [facility] [place] [facility] [address] [id number] [place] [address]- 1908 Jul, [facility] [place] [facility] [address] [id number] [place] [address]- 8485 Jul, [facility] [place] [facility] [address] [facility] [id number] [place] [address]- 5818 Jun, [facility] [place] [facility] [address] [id number] [place] [address]- 9675 Jun, 2014 [facility] [place] [facility] [address] [facility] [id number] [place] [address]- 6912 Jun, [facility] [place] [facility] [address] [facility] [id number] [place] [address]- 2935 Jun, [facility] [place] [facility] [address] [facility] [id number] [place] [address]- 8207 Jun, [facility] [place] [facility] [address] [id number] [place] [address]- 8150 Jun, 2014 [facility] [place] [facility] [address] [id number] [place] [address]- 5263 Jun, 2014 [facility] [place] [facility] [address] [id number] [place] [address]- 2278 Jun, [facility] [place] [facility] [address] [facility] [id number] [place] [address]- 0296 May, [facility] [place] [facility] [address] [id number] [place] [address]- 8942 May, [facility] [address] [id number] [place] [address]- 7899 May, [facility] [place] [facility] [address] [id number] [place] [address]- 4897 May, [facility] [place] [facility] [address] [id number] [place] [address]- 7764 May, [facility] [place] [facility] [address] [id number] [place] [address]- 8945 May, [facility] [place] [facility] [address] [id number] [place] [address]- 8716 May, [facility] [place] [facility] [address] [id number] [place] [address]- 1689 May, [facility] [place] [facility] [address] [id number] [place] [address]- 1048 May, [facility] [place] [facility] [address] [id number] [place] [address]- 2616 May, [facility] [place] [facility] [address] [id number] [place] [address] Apr, [facility] [place] [facility] [address] [id number] [place] [address] Apr, [facility] [place] [facility] [address] [id number] [place] [address] Apr, [facility] [place] [facility] [address] [id number] [place] [address] Apr, [facility] [place] [facility] [address] [id number] [place] [address] Apr, [facility] [place] [facility] [address] [id number] [place] [address] Apr, [facility] [place] [facility] [address] [id number] [place] [address] Apr, [facility] [place] [facility] [address] [id number] [place] [address] Apr, [facility] [place] [facility] [address] [id number] [place] [address] Mar, [facility] [place] [facility] [address] [id number] [place] [address] Mar, [facility] [place] [facility] [address] [id number] [place] [address] Mar, [facility] [place] [facility] [address] [id number] [place] [address] Mar, [facility] [place] [facility] [address] [id number] [place] [address] Mar, [facility] [place] [facility] [address] [id number] [place] [address] Mar, [facility] [place] [facility] [address] [id number] [place] [address] Mar, [facility] [place] [facility] [address] [id number] [place] [address] Mar, [facility] [place] [facility] [address] [id number] [place] [address] Mar, [facility] [place] [facility] [address] [id number] [place] [address] 66[address] Mar, [facility] [place] [facility] [address] [id number] [place] [address]013 Feb, [facility] [place] [facility] [address] [id number] [place] [address] 38[address] Feb, [facility] [place] [facility] [address] [id number] [place] [address] 4360 Feb, [facility] [place] [facility] [address] [id number] [place] [address] 4910 Feb, [facility] [place] [facility] [address] [id number] [place] [address]- 5297 14 Feb, 2014 [facility] [place] [facility] [address] [id number] [place] [address] 14 Feb, 2013 [facility] [place] [facility] [address] [id number] [place] [address]- 8822 30 Jan, 2013 [facility] [place] [facility] [address] [id number] [place] [address] 6776 30 Jan, 2013 [facility] [place] [facility] [address] [id number] [place] [address]- 3450 24 Jan, 2013 [facility] [place] [facility] [address] [id number] [place] [address]- 2136 24 Jan, 2013 [facility] [place] [facility] [address] [id number] [place] [address]- 8711 19 Jan, 2013 [facility] [place] [facility] [address] [id number] [place] [address]- 9150 19 Jan, 2013 [facility] [place] [facility] [address] [id number] [place] [address] 16 Jan, 2013 [facility] [place] [facility] [address] [id number] [place] [address]- 9076 16 Jan, 2013 [facility] [place] [facility] [address] [id number] [place] [address]- 1220 16 Jan, 2013 [facility] [place] [facility] [address] [id number] [place] [address]- 4560 16 Jan, 2013 [facility] [place] [facility] [address] [id number] [address] 12 Jan, 2013 [facility] [place] [facility] [address] [id number] [place] [address]- 2547 12 Jan, 2013 [facility] [place] [facility] [address] [id number] [place] [address]- 4852 Dec, [facility] [place] [facility] [address] [id number] [place] [address]- 9429 Dec, [facility] [place] [facility] [address] [id number] [place] [address]- 9847 Dec, [facility] [place] [facility] [address] [id number] [place] [address]- 8001 Dec, [facility] [place] [facility] [address] [id number] [place] [address]- 6517 Dec, [facility] [place] [facility] [address] [id number] [place] [address]- 6230 Dec, [facility] [place] [facility] [address] [id number] [place] [address]- 8945 Nov, [facility] [place] [facility] [address] [id number] [place] [address]- 5432 Nov, [facility] [place] [facility] [address] [id number] [place] [address]- 1165 Nov, [facility] [place] [facility] [address] [id number] [place] [address]- 9703 Nov, [facility] [place] [facility] [address] [id number] [place] [address]- 6276 Nov, [facility] [place] [facility] [address] [id number] [place] [address]- 2221 Nov, [facility] [place] [facility] [address] [id number] [place] [address]- 9376 Nov, [facility] [place] [facility] [address] [id number] [place] [address]- 4036 Nov, [facility] [place] [facility] [address] [id number] [place] [address]- 2829 Oct, [facility] [place] [facility] [address] [id number] [place] [address]- 0085 Oct, [facility] [place] [facility] [address] [id number] [place] [address]- 2649 Oct, [facility] [place] [facility] [address] [id number] [place] [address]- 1175 Oct, [facility] [place] [facility] [address] [id number] [place] [address]- 4399 September, [facility] [place] [facility] [address] [id number] [place] [address]- 8636 September, [facility] [place] [facility] [address] [id number] [place] [address]- 1572 September, [facility] [place] [facility] [address] [id number] [place] [address]- 5733 September, [facility] [place] [facility] [address] [id number] [place] [address]- 9942 September, [facility] [place] [facility] [address] [id number] [place] [address]- 8549 September, [facility] [place] [facility] [address] [id number] [place] [address]- 9500 Aug, [facility] [place] [facility] [address] [id number] [place] [address]- 9956 Aug, [facility] [place] [facility] [address] [id number] [place] [address]- 0207 Aug, [facility] [place] [facility] [address] [id number] [place] [address]- 2105 Aug, [facility] [place] [facility] [address] [id number] [place] [address]- 9111 Aug, [facility] [place] [facility] [address] [id number] [place] [address]- 4948 Aug, [facility] [place] [facility] [address] [id number] [place] [address]- 5790 Aug, [facility] [place] [facility] [address] [id number] [place] [address]- 3463 Aug, [facility] [place] [facility] [address] [id number] [place] [address] Jul, [facility] [place] [facility] [address] [id number] [place] [address] Jul, [facility] [place] [facility] [address] [id number] [place] [address]- 6828 Jun, [facility] [place] [facility] [address] [id number] [place] [address]- 4036 Jun, [facility] [place] [facility] [address] [id number] [place] [address]- 8726 Jun, [facility] [place] [facility] [address] [id number] [place] [address] Jun, [facility] [place] [facility] [address] [id number] [place] [address] Jun, [facility] [place] [facility] [address] [id number] [place] [address]- 3669 May, [facility] [place] [facility] [address] [id number] [place] [address]- 9509 May, [facility] [place] [facility] [address] [id number] [place] [address]- 1569 May, [facility] [place] [facility] [address] [id number] [place] [address]- 8091 May, [facility] [place] [facility] [address] [facility] [id number] [place] [address]- 8869 Apr, [facility] [place] [facility] [address] [id number] [place] [address]- 4414 Apr, [facility] [place] [facility] [address] [id number] [place] [address]- 6599 Mar, [facility] [place] [facility] [address] [id number] [place] [address]- 0863 Mar, [facility] [place] [facility] [address] [id number] [place] [address] Feb, [facility] [place] [facility] [address] [id number] [place] [address]- 7449 Feb, [facility] [place] [facility] [address] [id number] [place] [address]- 3229 Feb, [facility] [place] [facility] [address] [id number] [place] [address]- 1567 Feb, [facility] [place] [facility] [address] [id number] [place] [address]- 5366 Feb, [facility] [place] [facility] [address] [id number] [place] [address]- 7432 Feb, [facility] [place] [facility] [address] [id number] [place] [address]- 8584 Feb, [facility] [place] [facility] [address] [id number] [place] [address]- 5169 Jan, [facility] [place] [facility] [address] [id number] [place] [address]- 6349 Jan, [facility] [place] [facility] [address] [id number] [place] [address]- 5686 Dec, [facility] [place] [facility] [address] [id number] [place] [address]- 4280 Dec, [facility] [place] [facility] [address] [id number] [place] [address]- 5422 Dec, [facility] [place] [facility] [address] [id number] [place] [address]- 8361 Dec, [facility] [place] [facility] [address] [id number] [place] [address]- 8203 Dec, [facility] [place] [facility] [address] [id number] [place] [address]- 6831 Nov, [facility] [place] [facility] [address] [id number] [place] [address]- 1578 Nov, [facility] [place] [facility] [address] [id number] [place] [address]- 2156 Nov, [facility] [place] [facility] [address] [id number] [place] [address]- 9766 Oct, [facility] [address] [id number] [place] [address]- 1449 Oct, [facility] [place] [facility] [address] [id number] [place] [address]- 1317 Oct, [facility] [place] [facility] [address] [id number] [place] [address]- 6086 September, [facility] [place] [facility] [address] [id number] [place] [address]- 4810 Aug, [facility] [place] [facility] [address] [id number] [place] [address]- 0535 Aug, [facility] [place] [facility] [address] [id number] [place] [address]- 2431 Aug, [facility] [place] [facility] [address] [id number] [place] [address]- 5555 Jul, [facility] [place] [facility] [address] [id number] [place] [address]- 5194 Jul, [facility] [place] [facility] [address] [id number] [place] [address]- 8044 Jul, [facility] [place] [facility] [address] [id number] [place] [address]- 1492 Jul, [facility] [place] [facility] [address] [id number] [place] [address]- 3580 Jul, [facility] [place] [facility] [address] [id number] [place] [address]- 4120 Jun, [facility] [place] [facility] [address] [id number] [place] [address]- 7114 Jun, [facility] [place] [facility] [address] [id number] [place] [address]- 2916 May, [facility] [place] [facility] [address] [id number] [place] [address] 2547 May, [facility] [place] [facility] [address] [id number] [place] [address] 2546 Apr, [facility] [address] [id number] [place] [address]- 5336 Apr, [facility] [place] [facility] [address] [id number] [place] [address] 2546 Mar, [facility] [address] [id number] [place] [address]- 2546 Mar, [facility] [place] [facility] [address] [id number] [place] [address]- 2546 Mar, [facility] [address] [facility] [id number] [place] [address]- 6346 Mar, [facility] [address] [id number] [id number] Feb, [facility] [address] [id number] [address]- 4726 Feb, [facility] [place] [facility] [address] [id number] [place] [address]- 2346 Feb, [facility] [place] [facility] [address] [id number] [place] [address]- 9096 Feb, [facility] [address] [id number] [place] [address]- 3896 Feb, [facility] [place] [facility] [address] [id number] [place] [address]- 2546 Feb, [facility] [place] [facility] [address] [id number] [place] [address]- 2546 Feb, [facility] [place] [facility] [address] [id number] [place] [address]- 2546 Jan, [facility] [place] [facility] [address] [id number] [place] [address]- 2546 Jan, [facility] [place] [facility] [address] [id number] [place] [address]- 2546 Dec, [facility] [place] [facility] [address] [id number] [place] [address] 2544 Dec, [facility] [address] [id number] [place] [address]- 3906 Nov, [facility] [address] [id number] [place] [address]- 2546 Oct, [facility] [address] [id number] [place] [address] 2546 September, [facility] [address] [id number] [place] [address]- 254 September, [facility] [address] [id number] [place] [address]- 2546 September, [facility] [address] [id number] [place] [address]- 5656 Aug, [facility] [address] [id number] [place] [address]- 5977 May, [facility] [address] [id number] [place] [address]- 7654 May, [facility] [address] [id number] [place] [address]- 6919 Apr, [facility] [address] [id number] [place] [address]- 2968 Apr, [facility] [address] [id number] [place] [address]- 2336 Apr, [facility] [address] [id number] [place] [address]- 2542 Apr, [facility] [place] [facility] [address] [id number] [place] [address]- 2546 Apr, [facility] [address] [id number] [place] [address]- 2546 Mar, [facility] [address] [id number] [place] [address]- 2684 Feb, [facility] [address] [facility] [id number] [place] [address]- 2929 Feb, [facility] [address] [id number] [address]- 0519 September, [facility] [address] [facility] [id number] [place] [address]- 2961 Mar, [facility] [address] [id number] [address]- 4960 Feb, [facility] [address] [facility] [id number] [place] [address]- 6925 Feb, [facility] [address] [id number] [address]- 4493 Feb, IMMUNIZATIONS No Known Immunizations SOCIAL HISTORY Never Assessed REASON FOR VISIT Pain concerns PLAN OF CARE VITAL SIGNS MEDICATIONS Medication Instructions Dosage Frequency Start Date End Date Duration Status Tizanidine HCl 2 MG Orally every 6 hours 1 tablet as needed 6h Aug, Active RESULTS No Results PROCEDURES No Known [...] foot fracture Hospitalization History Via [facility]- Back Pain 03/24/2017
--- OUTSIDE RECORDS SUMMARY | 2018-04-10 18:04 | XMS REPORT ---
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 Name Role Phone GELY SHAY Unavailable PROBLEMS Type Condition ICD9-CM Code [id number] Code Onset Dates Condition Status SNOMED Code Problem Color blindness H53.50 Active 254779657 Problem Presbyopia of both eyes H52.4 Active 02926783 Problem Nuclear senile cataract of both eyes H25.13 Active 027538542 Problem Astigmatism of both eyes, unspecified type H52.203 Active 68792188 Problem Overactive bladder N32.81 Active 032924265 Problem Essential hypertension I10 Active 77129430 Problem Other chronic pain G89.29 Active 09511553 Problem Hypermetropia of both eyes H52.03 Active 52624160 Problem Alzheimer's disease, unspecified G30.9 Active 933916999 Problem Mild episode of recurrent major depressive disorder F33.0 Active 932893471 Problem 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 Active 297672314 Problem Major depressive disorder, single episode, mild F32.0 Active 69773979 Problem Chronic fatigue R53.82 Active 59358795 Problem Hydrocele, unspecified hydrocele type N43.3 Active 44919247 Problem Other acute pulmonary embolism without acute cor pulmonale I26.99 Active 766118358 Problem 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 Active 420544644 Problem Asymptomatic microscopic hematuria R31.21 Active 969702202 Problem Gait instability R26.81 Active 49913874 Problem PVD (peripheral vascular disease) I73.9 Active 493866656 Problem At high risk for falls Z91.81 Active 252283800893099794 Problem 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 Active 32523937 Problem Benign non-nodular prostatic hyperplasia with lower urinary tract symptoms N40.1 Active 217756132 Problem Alzheimers disease with late onset G30.1 Active 642474967 Problem Renal cyst, left Q61.00 Active 81795194 Problem Mixed hyperlipidemia E78.2 Active 959606884 Problem Anxiety F41.9 Active 04295931 Problem Transient cerebral ischemia, unspecified transient cerebral ischemia type G45.9 Active 645633960 Problem Primary insomnia F51.01 Active 943486311 ALLERGIES No Information ENCOUNTERS Encounter Location Date Diagnosis [place] [address] [address] Dec, [place] [address] [address] Nov, Essential hypertension I10 and Mixed hyperlipidemia E78.2 [place] [address] 074849- 3344 Oct, Edema leg R60.0 [place] [address] 8[address]- [address] September, [place] [address] 24[address]- 3077 September, Alzheimers disease with late onset G30.1 and Mild episode of recurrent major depressive disorder F33.0 [place] [address] [address]- [address] September, PVD (peripheral vascular disease) I73.9 ; Major depressive disorder, single episode, mild F32.0 ; Chronic fatigue R53.82 ; Weight gain R63.5 and Arthralgia, unspecified joint M25.50 [place] [address] [address]- [address] Aug, Acute low back pain, unspecified back pain laterality, with sciatica presence unspecified M54.5 [place] [address] 2[address]- 9257 Aug, Acute low back pain, unspecified back pain laterality, with sciatica presence unspecified M54.5 [place] [address] [address]- 9345 Aug, Pain R52 [place] [address] [address] Jul, [place] [address] [place] [id number] [place] [address] 85547- 6176 Jun, [place] [address] [place] [id number] [place] [address] 95179- 2573 07 Jun, 2017 Medicare annual wellness visit, initial Z00.00 ; Mixed hyperlipidemia E78.2 ; Essential hypertension I10 ; Anxiety F41.9 ; Alzheimers disease with late onset G30.1 ; 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 ; Overactive bladder N32.81 ; Primary insomnia F51.01 ; At high risk for falls Z91.81 and Encounter for immunization Z23 [place] [address] [place] [id number] [place] [address] 85999- 1761 May, [place] [address] [address]- [address] May, Essential hypertension I10 and Transient cerebral ischemia, unspecified transient cerebral ischemia type G45.9 [facility] [address] [place] [id number] [place] [address] [id number] May, Dental examination Z01.20 and Dental caries K02.9 [place] [address] [place] [id number] [place] [address] 62721- 9789 May, [place] [address] [place] [id number] [place] [address] 77390- 8494 May, [place] [address] [place] [id number] [place] [address] 64395- 0252 May, Alzheimers disease with late onset G30.1 [place] [address] [place] [id number] [place] [address] 09088- 1890 Apr, [place] [address] [place] [id number] [place] [address] 59475- 3413 Apr, Alzheimers disease with late onset G30.1 and Mild episode of recurrent major depressive disorder F33.0 [place] [id number] [place] [address] 50162- 0304 Mar, Mild episode of recurrent major depressive disorder F33.0 [facility] [place] [address] [place] [id number] [place] [address] 45284- 0176 Mar, Mixed hyperlipidemia E78.2 ; Essential hypertension I10 ; Asymptomatic microscopic hematuria R31.21 and Renal cyst, left Q61.00 [place] [address] [place] [id number] [place] [address] 77005- 9639 Mar, [facility] [place] [address] [place] [id number] [place] [address] 09071- 4781 Feb, Encounter for immunization Z23 [place] [address] [place] [id number] [place] [address] 13935- 2978 Feb, [facility] [place] [address] [place] [id number] [place] [address] 29308- 8278 Feb, [facility] [address] [place] [id number] [place] [address] 92756 -4077 Feb, ANUG (acute necrotizing ulcerative gingivitis) A69.1 [place] [address] [place] [id number] [place] [address] 31127- 4154 Feb, [facility] [place] [address] [place] [id number] [place] [address] 86274- 8644 Feb, Mild episode of recurrent major depressive disorder F33.0 [facility] [place] [address] [place] [id number] [place] [address] 74397- 0480 Feb, Alzheimers disease with late onset G30.1 and Mild episode of recurrent major depressive disorder F33.0 [facility] [place] [address] [place] [id number] [place] [address] 59610- 1118 Jan, Alzheimers disease with late onset G30.1 [facility] [id number] [place] [address] 40182- 6567 18 Jan, 2017 Gait instability R26.81 [facility] [address] [id number] [place] [address] Jan [facility] [address] [id number] [address] Dec [facility] [place] [address] [place] [id number] [place] [address] 09648- 9983 Dec, [facility] [place] [address] [place] [id number] [place] [address] 22452- 6494 Dec, [facility] [address] [place] [id number] [place] [address] 86711- 3299 Dec, Essential hypertension I10 ; Transient cerebral ischemia, unspecified transient cerebral ischemia type G45.9 and Anxiety F41.9 [facility] [address] [place] [id number] [place] [address] 64184- 8848 Dec, Gait instability R26.81 [facility] [place] [address] [place] [id number] [place] [address] 61022- 8198 Dec, [facility] [place] [address] [place] [id number] [place] [address] 34318- 5316 Nov, Alzheimers disease with late onset G30.1 and Mild episode of recurrent major depressive disorder F33.0 [facility] [place] [address] [place] [id number] [place] [address] 34907- 3635 Nov, [facility] [address] [place] [id number] [place] [address] 79960- 8685 Nov, Gait instability R26.81 [facility] [place] [address] [place] [id number] [place] [address] 26166- 8055 Nov, Anxiety F41.9 [facility] [place] [address] [place] [id number] [place] [address] 84537- 2756 Nov, [facility] [place] [address] [place] [id number] [place] [address] 16529- 9809 Nov, [facility] [place] [address] [place] [id number] [place] [address] 47798- 8488 Oct, Gait instability R26.81 [facility] [place] [address] [place] [address] 73738- 8377 14 Oct, 2016 Anxiety F41.9 [facility] [place] [address] [place] [id number] [place] [address] 18482- 1869 13 Oct, 2016 Gait instability R26.81 [facility] [place] [address] [place] [id number] [place] [address] 81877- 4571 12 Oct, 2016 Gait instability R26.81 [facility] [place] [address] [place] [id number] [place] [address] 03562- 7357 Oct, [facility] [place] [address] [place] [id number] [place] [address] 90619- 2028 Oct, Anxiety F41.9 ; Chronic 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 use Z79.899 ; Encounter for immunization Z23 and Transient cerebral ischemia, unspecified transient cerebral ischemia type G45.9 [facility] [place] [address] [place] [id number] [place] [address] 08831- 6707 September, [facility] [place] [address] [place] [id number] [place] [address] 59155- 5737 September, Gait instability R26.81 [facility] [place] [address] [place] [id number] [place] [address] 36372- 2553 September, [facility] [place] [address] [place] [id number] [place] [address] 43076- 4940 September, [facility] [place] [address] [place] [id number] [place] [address] 49108- 2712 September, [facility] [address] [place] [id number] [place] [address] 78429- 8035 September, Alzheimers disease with late onset G30.1 and Mild episode of recurrent major depressive disorder F33.0 [facility] [address], [place] [address]- 6430 September, [facility] [address] [place] [id number] [place] [address] 90871- 6164 September, [facility] [address], [place] [address]- 7880 September, [facility] [address] [address]- 2553 September, Mild episode of recurrent major depressive disorder F33.0 [facility] [address] [place] [id number] [address]- 9937 Aug, Mild episode of recurrent major depressive disorder F33.0 ; Alzheimers disease with late onset G30.1 ; Other acute pulmonary embolism without acute cor pulmonale I26.99 and Cough R05 [facility] [address], [place] [address]- 3082 Aug, [facility] [address] [address]- 4819 Aug, Gait instability R26.81 [facility] [address] [address]- 5871 Aug, Alzheimers disease with late onset G30.1 and Mild episode of recurrent major depressive disorder F33.0 [facility] [address], [place] [address]- 9135 Aug, [facility] [address] [place] [id number] [address]- 4971 Aug, 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 [facility] [address], [place] [address]- 6731 Jul, Alzheimers disease with late onset G30.1 [facility] [address], [place] [address]- 9276 Jul, [facility] [address] [place] [id number] [address]- 0405 Jul, 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 [facility] [address] [address]- 1020 Jul, Anxiety F41.9 ; Alzheimers disease with late onset G30.1 and Transient cerebral ischemia, unspecified transient cerebral ischemia type G45.9 [facility] [address] [place] [id number] [place] [address] 40568- 6960 Jun, Essential hypertension I10 [facility] [address] [place] [id number] [place] [address] 13991- 4347 Jun, [facility] [address] [place] [id number] [place] [address] 93625- 3460 Jun, [facility] [address] [place] [id number] [place] [address] 56792- 3618 Jun, [facility] [address] [place] [id number] [place] [address] 23251- 9125 Jun, Essential hypertension I10 ; Benign non-nodular prostatic hyperplasia with lower urinary tract symptoms N40.1 ; Anxiety F41.9 ; Pain in right knee M25.561 ; Pain in left knee M25.562 and Other chronic pain G89.29 [facility] [address] [place] [id number] [place] [address] 14736- 2371 May, [facility] [address] [place] [id number] [place] [address] 75279- 8544 May, [facility] [address] [place] [id number] [place] [address] 37156- 8794 May, [facility] [address] [place] [id number] [place] [address] 85460- 1294 Apr, [facility] [address] [place] [id number] [place] [address] 28331- 0379 Mar, [facility] [address] [place] [id number] [place] [address] 90086- 5432 Mar, Mixed hyperlipidemia E78.2 and Essential hypertension I10 [facility] [place] [address] [place] [id number] [place] [address] 50016- 6496 Feb, [facility] [address] [place] [id number] [place] [address] 19365- 8698 Feb, Ingrown nail L60.0 and Onychomycosis B35.1 [place] [address] 57574- 6129 Feb, Paronychia, left L03.012 [facility] [address] 43154- 8403 Jan, [facility] [address] 39243- 5341 Jan, Cramps of right lower extremity R25.2 and Mixed hyperlipidemia E78.2 [place] [address] 19965- 1110 Jan, Cramps of right lower extremity R25.2 ; Essential hypertension I10 ; Mixed hyperlipidemia E78.2 ; Chronic 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 use Z79.899 and Claudication I73.9 [place] [address] 51458- 3298 Jan, Right leg pain M79.604 [place] [address] 41709- 5144 Dec, [place] [address] 21860- 7817 Nov, [place] [address] [place] [id number] [place] [address] 82489- 9647 Nov, [facility] [address] 85785- 0597 Nov, [facility] [place] [address] 98448- 9077 Nov, Dermatofibroma D23.9 [facility] [address] [place] [id number] [place] [address] 06065- 2053 Nov, [facility] [place] [address] [place] [id number] [place] [address] 67584- 1457 Oct, [facility] [address], [place] [address]- 9678 Oct, [facility] [address] [place] [id number] [place] [address] 06896- 0975 September, Benign non-nodular prostatic hyperplasia with lower urinary tract symptoms N40.1 ; Essential hypertension I10 ; Overactive bladder N32.81 and Fatigue, unspecified type R53.83 [facility] [address] [place] [id number] [place] [address] 64387- 6803 September, [facility] [place] [address] [place] [id number] [place] [address] 99762- 7985 September, [facility] [address] [place] [id number] [place] [address] 88909- 2149 Aug, [facility] [address] [place] [id number] [place] [address] 58799- 2925 Jul, [facility] [address] [place] [id number] [place] [address] 63764- 6718 Jul, Pelvic pain R10.2 ; Jock itch B35.6 ; Essential hypertension I10 and Hydrocele, unspecified hydrocele type N43.3 [facility] [address], [place] [address]- 3313 Jun, [facility] [address], [place] [address]- 0163 Jun, [facility] [address] [place] [id number] [place] [address] 66638- 6146 Jun, Benign non-nodular prostatic hyperplasia with lower urinary tract symptoms N40.1 [facility] [address] [id number] [place] [address] 32123- 4068 Jun, Benign non-nodular prostatic hyperplasia with lower urinary tract symptoms N40.1 [facility] [address], [place] [address]- 9716 Jun, [facility] [place] [id number] [place] [address] 45272- 9208 May, [facility] [address] [id number] [place] [address] 69047- 3985 Apr, [facility] [place] [id number] [place] [address] 09958- 6188 Apr, [facility] [address] 95755- 6711 Apr, Other acute pulmonary embolism without acute cor pulmonale I26.99 ; Anxiety F41.9 ; 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 and jail 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 use Z79.899 [facility] [address] 51362- 6803 Apr, [facility] [id number] [place] [address] 50488- 5051 Apr, [facility] [id number] [place] [address] 28444- 7538 Mar, [facility] [id number] [place] [address] 07713- 4516 Mar, [facility] [id number] [place] [address] 93688- 7510 Feb, Cough R05 [facility] [id number] [place] [address] 09427- 5813 Feb, [facility] [id number] [place] [address] 93994- 7358 Feb, Encounter for immunization Z23 [facility] [id number] [place] [address] 17507- 4451 Feb, Other and unspecified hyperlipidemia 272.4 [facility] [id number] [place] [address] 76601- 4490 Jan, [facility] [id number] [place] [address] 14361- 0247 Jan, TIA (transient ischemic attack) 435.9 [facility] [address], [place] [address]- 1942 Dec, [facility] [address], [place] [address]- 7199 Dec, [facility] [address], [place] [address]- 4036 Dec, [facility] [id number] [place] [address] 11342- 5996 Nov, [facility] [id number] [place] [address] 68904- 9484 Oct, Chronic cough 786.2 [facility] [id number] [place] [address] 53648- 2061 Oct, [facility] [id number] [place] [address] 96892- 8442 Oct, [facility] [address], [place] [address]- 1733 Oct, [facility] [id number] [place] [address] 60355- 8628 Oct, [facility] [address], [place] [address]- 1792 Oct, Chronic cough 786.2 [facility] [place] [id number] [address] Oct, Cough 786.2 ; Hypertension 401.9 ; BPH (benign prostatic hyperplasia) 600.00 ; Other and unspecified hyperlipidemia 272.4 and Hydrocele 603.9 [facility] [place] [id number], [place] [address] Oct, [facility] [place] [id number], [place] [address] September, [facility] [place] [id number] [address] Aug, [facility] [place] [facility] [address] [id number] [place] [address] Aug, [facility] [place] [facility] [address] [id number] [place] [address] Jul, [facility] [place] [facility] [address] [id number] [place] [address] Jul, [facility] [place] [facility] [address] [id number] [place] [address] Jul, [facility] [place] [facility] [address] [id number] [place] [address] Jul, [facility] [place] [facility] [address] [id number] [place] [address] Jul, [facility] [place] [facility] [address] [facility] [id number] [place] [address] Jun, [facility] [place] [facility] [address] [id number] [place] [address] Jun, 2014 [facility] [place] [facility] [address] [facility] [id number] [place] [address] Jun, [facility] [place] [facility] [address] [facility] [id number] [place] [address] Jun, [facility] [place] [facility] [address] [facility] [id number] [place] [address] 160[address] Jun, [facility] [place] [facility] [address] [id number] [place] [address] 1671 Jun, 2014 [facility] [place] [facility] [address] [id number] [place] [address] Jun, 2014 [facility] [place] [facility] [address] [id number] [place] [address] 6[address] Jun, [facility] [place] [facility] [address] [facility] [id number] [place] [address] 8[address] May, [facility] [place] [facility] [address] [id number] [place] [address] 7789 May, [facility] [address] [id number] [place] [address] 7174 May, [facility] [place] [facility] [address] [id number] [place] [address] 2169 May, [facility] [place] [facility] [address] [id number] [place] [address]- 8724 May, [facility] [place] [facility] [address] [id number] [place] [address]- 5204 May, [facility] [place] [facility] [address] [id number] [place] [address]- 8017 May, [facility] [place] [facility] [address] [id number] [place] [address]- 2816 May, [facility] [place] [facility] [address] [id number] [place] [address]- 4298 May, [facility] [place] [facility] [address] [id number] [place] [address]- 6608 May, [facility] [place] [facility] [address] [id number] [place] [address]- 6719 Apr, [facility] [place] [facility] [address] [id number] [place] [address] 0856 Apr, [facility] [place] [facility] [address] [id number] [place] [address] 7823 Apr, [facility] [place] [facility] [address] [id number] [place] [address]- 9163 Apr, [facility] [place] [facility] [address] [id number] [place] [address]- 1796 Apr, [facility] [place] [facility] [address] [id number] [place] [address]- 1728 Apr, [facility] [place] [facility] [address] [id number] [place] [address]- 8584 Apr, [facility] [place] [facility] [address] [id number] [place] [address]- 7762 Apr, [facility] [place] [facility] [address] [id number] [place] [address]- 3316 Mar, [facility] [place] [facility] [address] [id number] [place] [address]- 3629 Mar, [facility] [place] [facility] [address] [id number] [place] [address] 4010 Mar, [facility] [place] [facility] [address] [id number] [place] [address]- 4562 Mar, [facility] [place] [facility] [address] [id number] [place] [address]- 8698 Mar, [facility] [place] [facility] [address] [id number] [place] [address]- 9475 Mar, [facility] [place] [facility] [address] [id number] [place] [address]- 1440 Mar, [facility] [place] [facility] [address] [id number] [place] [address]- 2047 Mar, [facility] [place] [facility] [address] [id number] [place] [address]- 2728 Mar, [facility] [place] [facility] [address] [id number] [place] [address]- 4467 Mar, [facility] [place] [facility] [address] [id number] [place] [address]- 1312 Feb, [facility] [place] [facility] [address] [id number] [place] [address]- 2043 Feb, [facility] [place] [facility] [address] [id number] [place] [address]- 0758 Feb, [facility] [place] [facility] [address] [id number] [place] [address]- 3205 Feb, [facility] [place] [facility] [address] [id number] [place] [address]- 8072 14 Feb, 2014 [facility] [place] [facility] [address] [id number] [place] [address]- 4091 14 Feb, 2013 [facility] [place] [facility] [address] [id number] [place] [address]- 2242 30 Jan, 2013 [facility] [place] [facility] [address] [id number] [place] [address]- 2296 30 Jan, 2013 [facility] [place] [facility] [address] [id number] [place] [address]- 8785 24 Jan, 2013 [facility] [place] [facility] [address] [id number] [place] [address]- 2268 24 Jan, 2013 [facility] [place] [facility] [address] [id number] [place] [address]- 9863 19 Jan, 2013 [facility] [place] [facility] [address] [id number] [place] [address]- 4025 19 Jan, 2013 [facility] [place] [facility] [address] [id number] [place] [address]- 4042 16 Jan, 2013 [facility] [place] [facility] [address] [id number] [place] [address]- 4947 16 Jan, 2013 [facility] [place] [facility] [address] [id number] [place] [address]- 9382 16 Jan, 2013 [facility] [place] [facility] [address] [id number] [place] [address]- 3600 16 Jan, 2013 [facility] [place] [facility] [address] [id number], [place] [address]- [address]2 12 Jan, 2013 [facility] [place] [facility] [address] [id number] [place] [address]- 254 12 Jan, 2013 [facility] [place] [facility] [address] [id number] [place] [address]- 1363 Dec, [facility] [place] [facility] [address] [id number] [place] [address]- 2471 Dec, [facility] [place] [facility] [address] [id number] [place] [address]- 3046 Dec, [facility] [place] [facility] [address] [id number] [place] [address]- 4046 Dec, [facility] [place] [facility] [address] [id number] [place] [address]- 6943 Dec, [facility] [place] [facility] [address] [id number] [place] [address]- 4075 Dec, [facility] [place] [facility] [address] [id number] [place] [address]- 7805 Nov, [facility] [place] [facility] [address] [id number] [place] [address]- 9245 Nov, [facility] [place] [facility] [address] [id number] [place] [address]- 5827 Nov, [facility] [place] [facility] [address] [id number] [place] [address]- 7167 Nov, [facility] [place] [facility] [address] [id number] [place] [address]- 5150 Nov, [facility] [place] [facility] [address] [id number] [place] [address]- 6947 Nov, [facility] [place] [facility] [address] [id number] [place] [address]- 5176 Nov, [facility] [place] [facility] [address] [id number] [place] [address]- 0696 Nov, [facility] [place] [facility] [address] [id number] [place] [address]- 9078 Oct, [facility] [place] [facility] [address] [id number] [place] [address]- 0495 Oct, [facility] [place] [facility] [address] [id number] [place] [address]- 5166 Oct, [facility] [place] [facility] [address] [id number] [place] [address]- 9652 Oct, [facility] [place] [facility] [address] [id number] [place] [address]- 3704 September, [facility] [place] [facility] [address] [id number] [place] [address]- 5656 September, [facility] [place] [facility] [address] [id number] [place] [address]- 6173 September, [facility] [place] [facility] [address] [id number] [place] [address]- 5502 September, [facility] [place] [facility] [address] [id number] [place] [address]- 7154 September, [facility] [place] [facility] [address] [id number] [place] [address]- 8137 September, [facility] [place] [facility] [address] [id number] [place] [address]- 8162 Aug, [facility] [place] [facility] [address] [id number] [place] [address]- 1675 Aug, [facility] [place] [facility] [address] [id number] [place] [address]- 8629 Aug, [facility] [place] [facility] [address] [id number] [place] [address]- 8840 Aug, [facility] [place] [facility] [address] [id number] [place] [address]- 1956 Aug, [facility] [place] [facility] [address] [id number] [place] [address]- 0628 Aug, [facility] [place] [facility] [address] [id number] [place] [address]- 7328 Aug, [facility] [place] [facility] [address] [id number] [place] [address]- 4466 Aug, [facility] [place] [facility] [address] [id number] [place] [address] Jul, [facility] [place] [facility] [address] [id number], [place] [address]- 6219 Jul, [facility] [place] [facility] [address] [id number] [place] [address]- 0040 Jun, [facility] [place] [facility] [address] [id number] [place] [address]- 4436 Jun, [facility] [place] [facility] [address] [id number] [place] [address]- 9296 Jun, [facility] [place] [facility] [address] [id number] [place] [address] Jun, [facility] [place] [facility] [address] [id number] [place] [address] Jun, [facility] [place] [facility] [address] [id number] [place] [address]- 6176 May, [facility] [place] [facility] [address] [id number] [place] [address]- 5596 May, [facility] [place] [facility] [address] [id number] [place] [address]- 8267 May, [facility] [place] [facility] [address] [id number] [place] [address]- 8206 May, [facility] [place] [facility] [address] [facility] [id number] [place] [address]- 1531 Apr, [facility] [place] [facility] [address] [id number] [place] [address]- 3531 Apr, [facility] [place] [facility] [address] [id number], [place] [address]- 4753 Mar, [facility] [place] [facility] [address] [id number] [place] [address]- 3395 Mar, [facility] [place] [facility] [address] [id number] [place] [address] Feb, [facility] [place] [facility] [address] [id number], [place] [address]- 5501 Feb, [facility] [place] [facility] [address] [id number] [place] [address]- 2880 Feb, [facility] [place] [facility] [address] [id number] [place] [address]- 8552 Feb, [facility] [place] [facility] [address] [id number] [place] [address]- 3610 Feb, [facility] [place] [facility] [address] [id number] [place] [address]- 4479 Feb, [facility] [place] [facility] [address] [id number] [place] [address]- 9630 Feb, [facility] [place] [facility] [address] [id number] [place] [address]- 2814 Jan, [facility] [place] [facility] [address] [id number] [place] [address]- 6998 Jan, [facility] [place] [facility] [address] [id number] [place] [address]- 1843 Dec, [facility] [place] [facility] [address] [id number] [place] [address]- 0025 Dec, [facility] [place] [facility] [address] [id number] [place] [address]- 9046 Dec, [facility] [place] [facility] [address] [id number] [place] [address]- 7356 Dec, [facility] [place] [facility] [address] [id number] [place] [address]- 5700 Dec, [facility] [place] [facility] [address] [id number] [place] [address]- 7712 Nov, [facility] [place] [facility] [address] [id number] [place] [address]- 7968 Nov, [facility] [place] [facility] [address] [id number] [place] [address]- 3097 Nov, [facility] [place] [facility] [address] [id number] [place] [address]- 8676 Oct, [facility] [address] [id number] [place] [address]- 1750 Oct, [facility] [place] [facility] [address] [id number] [place] [address]- 3800 Oct, [facility] [place] [facility] [address] [id number] [place] [address]- 7362 September, [facility] [place] [facility] [address] [id number] [place] [address]- 9072 Aug, [facility] [place] [facility] [address] [id number] [place] [address]- 8126 Aug, [facility] [place] [facility] [address] [id number] [place] [address]- 8948 Aug, [facility] [place] [facility] [address] [id number] [place] [address]- 5177 Jul, [facility] [place] [facility] [address] [id number] [place] [address]- 2281 Jul, [facility] [place] [facility] [address] [id number] [place] [address]- 4748 Jul, [facility] [place] [facility] [address] [id number] [place] [address]- 2485 Jul, [facility] [place] [facility] [address] [id number] [place] [address]- 3225 Jul, [facility] [place] [facility] [address] [id number] [place] [address]- 3996 Jun, [facility] [place] [facility] [address] [id number] [place] [address]- 3827 Jun, [facility] [place] [facility] [address] [id number] [place] [address]- 2688 May, [facility] [place] [facility] [address] [id number] [place] [address] 2549 May, [facility] [place] [facility] [address] [id number] [place] [address] 2546 Apr, [facility] [address] [id number] [place] [address]- 1646 Apr, [facility] [place] [facility] [address] [id number] [place] [address] 2546 Mar, [facility] [address] [id number] [place] [address]- 2546 Mar, [facility] [place] [facility] [address] [id number] [place] [address]- 2546 Mar, [facility] [address] [facility] [id number] [place] [address]- 9256 Mar, [facility] [address] [id number] [id number] Feb, [facility] [address] [id number] [address]- 8426 Feb, [facility] [place] [facility] [address] [id number] [place] [address]- 0736 Feb, [facility] [place] [facility] [address] [id number] [place] [address]- 0526 Feb, [facility] [address] [id number] [place] [address]- 4896 Feb, [facility] [place] [facility] [address] [id number] [place] [address]- 2546 Feb, [facility] [place] [facility] [address] [id number], [place] [address]- 2546 Feb, [facility] [place] [facility] [address] [id number] [place] [address]- 2546 Jan, [facility] [place] [facility] [address] [id number] [place] [address]- 2546 Jan, [facility] [place] [facility] [address] [id number], [place] [address]- 2546 Dec, [facility] [place] [facility] [address] [id number] [place] [address] 2545 Dec, [facility] [address] [id number] [place] [address]- 2796 Nov, [facility] [address] [id number] [place] [address]- 2546 Oct, [facility] [address] [id number] [place] [address] 2546 September, [facility] [address] [id number] [place] [address]- 2543 September, [facility] [address] [id number] [place] [address]- 2546 September, [facility] [address] [id number] [place] [address]- 1883 Aug, [facility] [address] [id number] [place] [address]- 9974 May, [facility] [address] [id number] [place] [address]- 9990 May, [facility] [address] [id number] [place] [address]- 4264 Apr, [facility] [address] [id number] [place] [address]- 2707 Apr, [facility] [address] [id number] [place] [address]- 8396 Apr, [facility] [address] [id number] [place] [address]- 2543 Apr, [facility] [place] [facility] [address] [id number] [place] [address]- 2546 Apr, [facility] [address] [id number] [place] [address]- 2546 Mar, [facility] [address] [id number], [place] [address]- 2456 Feb, [facility] [place] [address] [facility] [id number] [place] [address]- 0666 Feb, [facility] [place] [address] [facility] [id number], [place] [address]- 8826 September, [facility] [place] [address] [facility] [id number], [place] [address]- 1696 Mar, [facility] [place] [address] [facility] [id number], [place] [address]- 6106 Feb, [facility] [place] [address] [facility] [id number], [place] [address]- 0668 Feb, [facility] [place] [address] [facility] [id number][place] 3510 Feb, IMMUNIZATIONS No Known Immunizations SOCIAL HISTORY Never Assessed REASON FOR VISIT Requests return call PLAN OF CARE VITAL SIGNS MEDICATIONS Medication Instructions Dosage Frequency Start Date End Date Duration Status Namenda 10 mg Orally Twice a day 1 tablet 12h 30 days Active Aricept 5 mg Orally Once a day 1 tablet at bedtime 24h 30 days Active Finasteride 5 MG TAKE ONE TABLET BY MOUTH ONCE DAILY 30 Active Pravastatin Sodium 40 MG Orally Once a day 1 tablet 24h Active Fish Oil 1 tablet 12h Active Oxybutynin Chloride 5 MG TAKE ONE TABLET BY MOUTH TWICE DAILY 30 Active Proscar 5 MG TAKE 1 TABLET BY MOUTH ONCE DAILY. 30 Active Aspirin 81 MG Orally Once a day 1 tablet 24h Active Mobic 15 mg Orally Once a day 1 tablet 24h Jul, Aug, 30 day(s) Active Amlodipine Besylate 10 MG TAKE ONE TABLET BY MOUTH ONCE DAILY 30 Active Donepezil HCl 5 MG TAKE ONE TABLET BY MOUTH ONCE DAILY AT BEDTIME 30 Active Flomax 0.4 MG TAKE ONE CAPSULE BY MOUTH ONCE DAILY 30 MINUTES AFTER THE SAME MEAL EACH DAY 30 Active Cymbalta 30 MG Orally Once a day 1 capsule 24h Active Trazodone HCl 150 MG TAKE ONE TABLET BY MOUTH ONCE DAILY AT BEDTIME 30 Active Stool Softener 100 MG Orally Once a day 1 capsule as needed 24h Active Trazodone HCl 100 mg Orally Once a day 1 tablet at bedtime 24h Active Tramadol HCl 50 mg Orally every 6 hrs 1 tablet as needed for severe pain 6h 30 Jul, 2017 Active Abilify 5 mg Orally Once a day 1 tablet 24h 30 day(s) Active Eliquis 5 mg Orally 2 times a day 1 tablet 12h Active RESULTS No Results PROCEDURES No Known [...] foot fracture Hospitalization History [facility] [place]- Back Pain 03/24/2017
--- OUTSIDE RECORDS SUMMARY | 2018-04-10 18:05 | XMS REPORT ---
Author Author GELY SHAY Organization [facility] Address [address] [place] [address] Care Team Providers Care Head Of Sales And Marketing Name Role Phone GELYGLORIASHAY Unavailable PROBLEMS Type Condition ICD9-CM Code KVH19-MG Code Onset Dates Condition Status SNOMED Code Problem Color blindness H53.50 Active 547571881 Problem Presbyopia of both eyes H52.4 Active 55937692 Problem Nuclear senile cataract of both eyes H25.13 Active 245231153 Problem Astigmatism of both eyes, unspecified type H52.203 Active 38906463 Problem Overactive bladder N32.81 Active 673305316 Problem Essential hypertension I10 Active 83636935 Problem Other chronic pain G89.29 Active 59756692 Problem Hypermetropia of both eyes H52.03 Active 88808876 Problem Alzheimer's disease, unspecified G30.9 Active 400956874 Problem Mild episode of recurrent major depressive disorder F33.0 Active 632296075 Problem 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 Active 390839577 Problem Major depressive disorder, single episode, mild F32.0 Active 95905928 Problem Chronic fatigue R53.82 Active 69938313 Problem Hydrocele, unspecified hydrocele type N43.3 Active 47774584 Problem Other acute pulmonary embolism without acute cor pulmonale I26.99 Active 122238303 Problem 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 Active 203966826 Problem Asymptomatic microscopic hematuria R31.21 Active 204513910 Problem Gait instability R26.81 Active 86047084 Problem PVD (peripheral vascular disease) I73.9 Active 887994266 Problem At high risk for falls Z91.81 Active [id number] Problem 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 Active 82986756 Problem Benign non-nodular prostatic hyperplasia with lower urinary tract symptoms N40.1 Active 100201076 Problem Alzheimers disease with late onset G30.1 Active 194319156 Problem Renal cyst, left Q61.00 Active 97756398 Problem Mixed hyperlipidemia E78.2 Active 938027255 Problem Anxiety F41.9 Active 28680053 Problem Transient cerebral ischemia, unspecified transient cerebral ischemia type G45.9 Active 667959208 Problem Primary insomnia F51.01 Active 675855964 ALLERGIES No Information ENCOUNTERS Encounter Location Date Diagnosis [place] [id number] [address] 65158- 2636 Dec, [place] [address] 85134- 0228 September, Alzheimers disease with late onset G30.1 and Mild episode of recurrent major depressive disorder F33.0 [place] [address] 57484- 7122 September, PVD (peripheral vascular disease) I73.9 ; Major depressive disorder, single episode, mild F32.0 ; Chronic fatigue R53.82 ; Weight gain R63.5 and Arthralgia, unspecified joint M25.50 [place] [id number] [address] 75957- 9894 Aug, Acute low back pain, unspecified back pain laterality, with sciatica presence unspecified M54.5 [place] [id number] [address] 77188- 1510 Aug, Acute low back pain, unspecified back pain laterality, with sciatica presence unspecified M54.5 [place] [id number] [address] 91134- 5396 Aug, Pain R52 [place] [id number] [address] 21919- 5510 Jul, [place] [address] 97916- 1722 Jun, [place] [id number] [address] 82402- 8610 07 Jun, 2017 Medicare annual wellness visit, initial Z00.00 ; Mixed hyperlipidemia E78.2 ; Essential hypertension I10 ; Anxiety F41.9 ; Alzheimers disease with late onset G30.1 ; 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 ; Overactive bladder N32.81 ; Primary insomnia F51.01 ; At high risk for falls Z91.81 and Encounter for immunization Z23 [facility] [id number] [address] 17591- 2239 May, [facility] [address] 51475- 5514 May, Essential hypertension I10 and Transient cerebral ischemia, unspecified transient cerebral ischemia type G45.9 [facility] [address] [id number] May, Dental examination Z01.20 and Dental caries K02.9 [place] [address] 63706- 0922 May, [place] [address] 44999- 2623 May, [place] [id number] [address] 73177- 9048 May, Alzheimers disease with late onset G30.1 [place] [id number] [address] 21568- 3990 Apr, [place] [id number] [address] 04388- 6060 Apr, Alzheimers disease with late onset G30.1 and Mild episode of recurrent major depressive disorder F33.0 [place] [id number] [address] 45264- 8717 Mar, Mild episode of recurrent major depressive disorder F33.0 [place] [id number] [address] 47232- 0754 Mar, Mixed hyperlipidemia E78.2 ; Essential hypertension I10 ; Asymptomatic microscopic hematuria R31.21 and Renal cyst, left Q61.00 [place] [address] [place] [address]- 6768 Mar, [facility] [id number] [address] 08804- 0202 Feb, Encounter for immunization Z23 [facility] [id number] [address] 31572- 8847 Feb, [facility] [id number] [address] 33654- 2758 Feb, [facility] [id number] [address] 48023 -7357 Feb, ANUG (acute necrotizing ulcerative gingivitis) A69.1 [facility] [id number] [address] 76031- 4023 Feb, [facility] [id number] [address] 94837- 5760 Feb, Mild episode of recurrent major depressive disorder F33.0 [facility] [id number] [address] 71505- 6264 Feb, Alzheimers disease with late onset G30.1 and Mild episode of recurrent major 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 [facility] [id number] [address] 89054- 3880 Jan, Alzheimers disease with late onset G30.1 [facility] [address] [address]- 2437 Jan, Gait instability R26.81 [facility] [address] [id number] [place] [address] Jan [facility] [address] [id number] [place] [address] Dec [facility] [address], [place] [address]- 1272 Dec, [facility] [id number] [address] 42771- 5703 Dec, [place] [id number] [facility] [id number] [address] [address]66 Dec, Essential hypertension I10 ; Transient cerebral ischemia, unspecified transient cerebral ischemia type G45.9 and Anxiety F41.9 [facility] [address] [facility] [id number] [address] 78190 2546 Dec, Gait instability R26.81 [facility] [address] [facility] [id number] [address] 54453 2546 Dec, [facility] [address] [facility] [id number] [address] 86933 2544 Nov, Alzheimers disease with late onset G30.1 and 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.0 [facility] [address] [id number] [address] 47458- 1836 Nov, [facility] [id number] [address] 78723- 6266 Nov, Gait instability R26.81 [facility] [address] [facility] [id number] [address] 13212 2542 Nov, Anxiety F41.9 [facility] [address] [facility] [id number] [address] 15856 2546 Nov, [facility] [address] [id number] [address] 75908 2546 Nov, [facility] [address] [facility] [id number] [address] [address] 24764 2546 Oct, Gait instability R26.81 [facility] [address] [facility] [id number] [address] 51018 2546 Oct, Anxiety F41.9 [facility] [address] [facility] [id number] [address] 22001 2549 Oct, Gait instability R26.81 [facility] [address] [facility] [id number] [address] 2546 Oct, Gait instability R26.81 [facility] [address], [place] [address]- 2736 Oct, [facility] [id number] [address] 12972- 7288 Oct, Anxiety F41.9 ; Chronic 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 use Z79.899 ; Encounter for immunization Z23 and Transient cerebral ischemia, unspecified transient cerebral ischemia type G45.9 [facility] [address] [address]- 2955 September, [facility] [address] [address]- 1748 September, Gait instability R26.81 [facility] [address] [address]- 7648 September, [facility] [address] [address]- 9113 September, [facility] [address] [address]- 3544 September, [facility] [address], [place] [address]- 4945 September, Alzheimers disease with late onset G30.1 and Mild episode of recurrent major depressive disorder F33.0 [facility] [address], [place] [address]- 3797 September, [facility] [address], [place] [address]- 7074 September, [facility] [address], [place] [address]- 2963 September, [facility] [address] [address]- 9332 September, Mild episode of recurrent major depressive disorder F33.0 [facility] [address], [place] [address]- 3247 Aug, Mild episode of recurrent major depressive disorder F33.0 ; Alzheimers disease with late onset G30.1 ; Other acute pulmonary embolism without acute cor pulmonale I26.99 and Cough R05 [facility] [id number] [place] [address] 76181- 3835 Aug, [facility] [id number] [address] 06126- 1217 Aug, Gait instability R26.81 [facility] [address] 65649- 9629 Aug, Alzheimers disease with late onset G30.1 and Mild episode of recurrent major depressive disorder F33.0 [facility] [address] 39546- 2498 Aug, [place] [id number] [address] 89087- 1255 Aug, 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 [facility] [id number] [address] 24410- 3387 Jul, Alzheimers disease with late onset G30.1 [facility] [id number] [address] 48844- 1199 Jul, [place] [id number] [address] 59157- 0870 Jul, 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 [facility] [id number] [address] 18158- 5166 Jul, Anxiety F41.9 ; Alzheimers disease with late onset G30.1 and Transient cerebral ischemia, unspecified transient cerebral ischemia type G45.9 [facility] [id number] [address] 13006- 0518 Jun, Essential hypertension I10 [facility] [id number] [address] 11269- 6736 Jun, [facility] [address] [place] [address]- 0081 Jun, [facility] [id number] [address] 20094- 1955 Jun, [facility] [id number] [address] 92798- 4895 Jun, Essential hypertension I10 ; Benign non-nodular prostatic hyperplasia with lower urinary tract symptoms N40.1 ; Anxiety F41.9 ; Pain in right knee M25.561 ; Pain in left knee M25.562 and Other chronic pain G89.29 [facility] [id number] [address] 96854- 0682 May, [facility] [id number] [address] 60530- 5344 May, [facility] [id number] [address] 67699- 7292 May, [facility] [id number] [address] 19769- 6589 Apr, [facility] [id number] [address] 14380- 0175 Mar, [facility] [id number] [address] 99464- 4424 Mar, Mixed hyperlipidemia E78.2 and Essential hypertension I10 [facility] [id number] [address] 51377- 2633 Feb, [facility] [id number] [address] 58592- 8554 Feb, Ingrown nail L60.0 and Onychomycosis B35.1 [facility] [id number] [address] 58499- 1972 Feb, Paronychia, left L03.012 [facility] [id number] [address] 85839- 3019 Jan, [facility] [address] [address]- 8987 07 Jan, 2016 Cramps of right lower extremity R25.2 and Mixed hyperlipidemia E78.2 [facility] [id number] [address] 55850- 9777 Jan, Cramps of right lower extremity R25.2 ; Essential hypertension I10 ; Mixed hyperlipidemia E78.2 ; Chronic 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 use Z79.899 and Claudication I73.9 [facility] [id number] [address] 32713- 6680 Jan, Right leg pain M79.604 [facility] [id number] [address] 64132- 0850 Dec, [facility] [id number] [address] 32048- 3402 Nov, [facility] [id number] [address] 96057- 6971 Nov, [facility] [id number] [address] 61504- 0003 Nov, [facility] [id number] [address] 03756- 7986 Nov, Dermatofibroma D23.9 [facility] [id number] [address] 14413- 9192 Nov, [facility] [id number] [address] 73026- 6778 Oct, [facility] [id number] [address] 51538- 3867 Oct, [facility] [id number] [address] 26233- 5561 September, Benign non-nodular prostatic hyperplasia with lower urinary tract symptoms N40.1 ; Essential hypertension I10 ; Overactive bladder N32.81 and Fatigue, unspecified type R53.83 [facility] [address] [address]- 6135 September, [facility] [id number] [address] 59718- 5086 September, [facility] [address], [place] [address]- 6796 Aug, [facility] [id number] [address] 61098- 8581 Jul, [facility] [id number] [address] 157268- 1751 Jul, Pelvic pain R10.2 ; Jock itch B35.6 ; Essential hypertension I10 and Hydrocele, unspecified hydrocele type N43.3 [facility] [address], [place] [address]- 5452 Jun, [facility] [id number] [address] 712495- 9529 Jun, [facility] [address] 7528 Jun, Benign non-nodular prostatic hyperplasia with lower urinary tract symptoms N40.1 [facility] [address] 8484 Jun, Benign non-nodular prostatic hyperplasia with lower urinary tract symptoms N40.1 [facility] [address], [place] [address]- 0556 Jun, [facility] [address], [place] [address]- 2106 May, [facility] [address] [address]- 2249 Apr, [facility] [address]- 4596 Apr, [facility] [address] [address]- 6976 Apr, Other acute pulmonary embolism without acute cor pulmonale I26.99 ; Anxiety F41.9 ; 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 [facility] [id number] [address] 98342- 3217 Apr, [facility] [id number] [address] 95449- 3012 Apr, [facility] [address] 14601- 7747 Mar, [facility] [address] 16720- 3581 Mar, [facility] [address] 26178- 1274 Feb, Cough R05 [facility] [address] 64679- 4695 Feb, [facility] [id number] [place] [address] 92995- 2342 Feb, Encounter for immunization Z23 [facility] [address] 21319- 1153 Feb, Other and unspecified hyperlipidemia 272.4 [facility] [id number] [place] [address] 17444- 0430 Jan, [facility] [id number] [place] [address] 79328- 6964 Jan, TIA (transient ischemic attack) 435.9 [facility] [id number] [place] [address] 71314- 7581 Dec, [facility] [address] 19376- 0078 Dec, [facility] [id number] [place] [address] 88243- 9925 Dec, [facility] [address] [place] [address]- 3067 Nov, [facility] [id number] [place] [address] 38177- 0684 Oct, Chronic cough 786.2 [facility] [address], [place] [address]- 3361 Oct, [facility] [id number] [place] [address] 14026- 6625 Oct, [facility] [id number] [place] [address] 75238- 0747 Oct, [facility] [id number] [place] [address] 35970- 1640 Oct, [facility] [id number] [place] [address] 47785- 1749 Oct, Chronic cough 786.2 [facility] [id number] [place] [address] 74754- 7033 Oct, Cough 786.2 ; Hypertension 401.9 ; BPH (benign prostatic hyperplasia) 600.00 ; Other and unspecified hyperlipidemia 272.4 and Hydrocele 603.9 [facility] [address], [place] [address]- 9914 Oct, [facility] [address], [place] [address]- 8298 September, [facility] [address], [place] [address]- 0369 Aug, [facility] [address], [place] [address] Aug, [facility] [id number] [address] Jul, [facility] [address], [place] [address] Jul, [facility] [id number] [place] [address] Jul, [facility] [place] [facility] [address] [id number] [place] [address] Jul, [facility] [place] [facility] [address] [id number] [place] [address] Jul, [facility] [place] [facility] [address] [id number] [place] [address] Jun, 2014 [facility] [place] [facility] [address] [id number] [place] [address] Jun, 2014 [facility] [place] [facility] [address] [id number] [place] [address] Jun, 2014 [facility] [place] [facility] [address] [id number] [place] [address] Jun, 2014 [facility] [place] [facility] [address] [id number] [place] [address] Jun, 2014 [facility] [place] [facility] [address] [id number] [place] [address] Jun, [facility] [place] [facility] [address] [id number] [place] [address] Jun, [facility] [place] [facility] [address] [facility] [id number] [place] [address] Jun, [facility] [place] [facility] [address] [id number] [place] [address] May, [facility] [place] [facility] [address] [id number] [place] [address] May, [facility] [place] [facility] [address] [id number] [place] [address] May, [facility] [place] [facility] [address] [id number] [place] [address] May, [facility] [place] [facility] [address] [id number] [place] [address] May, [facility] [place] [facility] [address] [id number] [place] [address] May, [facility] [place] [facility] [address] [id number] [place] [address] May, [facility] [place] [facility] [address] [id number] [place] [address] May, [facility] [place] [facility] [address] [id number] [place] [address] 3214 May, [facility] [address] [id number] [place] [address] May, [facility] [place] [facility] [address] [id number] [place] [address] 9248 Apr, [facility] [address] [id number] [place] [address] 6[address] Apr, [facility] [address] [id number] [place] [address] 5[address] Apr, [facility] [place] [facility] [address] [id number] [place] [address] 0969 Apr, [facility] [place] [facility] [address] [id number] [place] [address] 9663 Apr, [facility] [place] [facility] [address] [id number] [place] [address] 7989 Apr, [facility] [place] [facility] [address] [id number] [place] [address] 9251 Apr, [facility] [place] [facility] [address] [id number] [place] [address] 9271 Apr, [facility] [place] [facility] [address] [id number] [place] [address] 7853 Mar, [facility] [place] [facility] [address] [id number] [place] [address] 7256 Mar, [facility] [place] [facility] [address] [id number], [place] [address] Mar, [facility] [place] [facility] [address] [id number] [place] [address]- 9506 Mar, [facility] [place] [facility] [address] [id number] [place] [address] 0308 Mar, [facility] [place] [facility] [address] [id number] [place] [address] 4797 Mar, [facility] [place] [facility] [address] [id number] [place] [address]- 9913 Mar, [facility] [place] [facility] [address] [id number] [place] [address] 54[address] Mar, [facility] [place] [facility] [address] [id number] [place] [address]- 4341 Mar, [facility] [place] [facility] [address] [id number] [place] [address] 0556 Mar, [facility] [place] [facility] [address] [id number] [place] [address] 2540 Feb, [facility] [place] [facility] [address] [id number] [place] [address]- 8052 Feb, [facility] [place] [facility] [address] [id number] [place] [address]- 5111 Feb, [facility] [place] [facility] [address] [id number], [place] [address] 1872 Feb, [facility] [place] [facility] [address] [id number], [place] [address] 0408 Feb, [facility] [place] [facility] [address] [id number] [place] [address]- 1019 Feb, [facility] [place] [facility] [address] [id number], [place] [address] 30 Jan, 2014 [facility] [place] [facility] [address] [id number] [place] [address]- 5661 30 Jan, 2014 [facility] [place] [facility] [address] [id number] [place] [address]- 0359 24 Sep, 2013 [facility] [place] [facility] [address] [id number] [place] [address]- 8376 24 Jan, 2013 [facility] [place] [facility] [address] [id number] [place] [address]- 2546 19 Jan, 2013 [facility] [place] [facility] [address] [id number] [place] [address] 2546 19 Jan, 2013 [facility] [place] [facility] [address] [id number] [place] [address]- 2541 16 Jan, 2013 [facility] [place] [facility] [address] [id number] [place] [address]- 5936 16 Jan, 2013 [facility] [place] [facility] [address] [id number] [place] [address]- 8113 16 Jan, 2013 [facility] [place] [facility] [address] [id number] [place] [address]- 4317 16 Jan, 2013 [facility] [place] [facility] [address] [id number] [place] [address] 1907 12 Jan, 2013 [facility] [place] [facility] [address] [id number] [place] [address]- 9875 12 Jan, 2013 [facility] [place] [facility] [address] [id number] [place] [address] 6134 Dec, [facility] [place] [facility] [address] [id number] [place] [address] 2540 Dec, [facility] [place] [facility] [address] [id number] [place] [address] 2547 Dec, [facility] [place] [facility] [address] [id number] [place] [address]- 4294 Dec, [facility] [place] [facility] [address] [id number] [place] [address]- 3444 Dec, [facility] [place] [facility] [address] [id number] [place] [address]- 5146 Dec, [facility] [place] [facility] [address] [id number] [place] [address]- 3646 Nov, [facility] [place] [facility] [address] [id number] [place] [address]- 8097 Nov, [facility] [place] [facility] [address] [id number] [place] [address]- 0145 Nov, [facility] [place] [facility] [address] [id number] [place] [address]- 6500 Nov, [facility] [place] [facility] [address] [id number] [place] [address] 4047 Nov, [facility] [place] [facility] [address] [id number] [place] [address]- 5207 Nov, [facility] [place] [facility] [address] [id number] [place] [address]- 1666 Nov, [facility] [place] [facility] [address] [id number] [place] [address]- 7587 Nov, [facility] [place] [facility] [address] [id number] [place] [address] 8555 Oct, [facility] [place] [facility] [address] [id number] [place] [address]- 6624 Oct, [facility] [place] [facility] [address] [id number] [place] [address] 2917 Oct, [facility] [place] [facility] [address] [id number] [place] [address]- 0409 Oct, [facility] [place] [facility] [address] [id number] [place] [address]- 8333 September, [facility] [place] [facility] [address] [id number] [place] [address]- 0048 September, [facility] [place] [facility] [address] [id number] [place] [address] September, [facility] [place] [facility] [address] [id number] [place] [address]- 9617 September, [facility] [address] [id number] [place] [address]- 7200 September, [facility] [place] [facility] [address] [id number] [place] [address]- 7220 September, [facility] [place] [facility] [address] [id number] [place] [address]- 6482 Aug, [facility] [place] [facility] [address] [id number] [place] [address]- 0453 Aug, [facility] [place] [facility] [address] [id number] [place] [address]- 6003 Aug, [facility] [place] [facility] [address] [id number] [place] [address]- 8583 Aug, [facility] [place] [facility] [address] [id number] [place] [address] 2153 Aug, [facility] [place] [facility] [address] [id number] [place] [address]- 2428 Aug, [facility] [place] [facility] [address] [id number] [place] [address]- 1683 Aug, [facility] [place] [facility] [address] [id number] [place] [address]- 9105 Aug, [facility] [place] [facility] [address] [id number] [place] [address]- 8074 Jul, [facility] [place] [facility] [address] [id number] [place] [address]- 3781 Jul, [facility] [place] [facility] [address] [id number] [place] [address]- 2789 Jun, [facility] [place] [facility] [address] [id number] [place] [address]- 3513 Jun, [facility] [place] [facility] [address] [id number] [place] [address]- 2140 Jun, [facility] [place] [facility] [address] [id number] [place] [address]- 7234 Jun, [facility] [place] [facility] [address] [id number] [place] [address]- 3048 Jun, [facility] [place] [facility] [address] [id number] [place] [address]- 3561 May, [facility] [place] [facility] [address] [id number] [place] [address]- 7357 May, [facility] [place] [facility] [address] [id number] [place] [address]- 2550 May, [facility] [place] [facility] [address] [id number] [place] [address]- 5005 May, [facility] [place] [facility] [address] [id number] [place] [address]- 1027 Apr, [facility] [place] [facility] [address] [id number] [place] [address]- 0701 Apr, [facility] [place] [facility] [address] [id number] [place] [address]- 4790 Mar, [facility] [place] [facility] [address] [id number] [place] [address]- 2538 Mar, [facility] [place] [facility] [address] [id number] [place] [address]- 7903 Feb, [facility] [place] [facility] [address] [id number], [place] [address]- 9867 Feb, [facility] [place] [facility] [address] [id number] [place] [address]- 6754 Feb, [facility] [place] [facility] [address] [id number] [place] [address]- 2415 Feb, [facility] [place] [facility] [address] [id number], [place] [address]- 1897 Feb, [facility] [place] [facility] [address] [id number], [place] [address]- 7453 Feb, [facility] [place] [facility] [address] [id number] [place] [address]- 3161 Feb, [facility] [place] [facility] [address] [id number] [place] [address]- 7861 Jan, [facility] [place] [facility] [address] [id number] [place] [address]- 0450 Jan, [facility] [place] [facility] [address] [id number] [place] [address]- 3679 Dec, [facility] [place] [facility] [address] [id number] [place] [address]- 0114 Dec, [facility] [place] [facility] [address] [id number] [place] [address]- 0537 Dec, [facility] [place] [facility] [address] [id number] [place] [address]- 1065 Dec, [facility] [place] [facility] [address] [id number] [place] [address]- 8868 Dec, [facility] [place] [facility] [address] [id number] [place] [address]- 0354 Nov, [facility] [place] [facility] [address] [id number] [place] [address]- 3427 Nov, [facility] [place] [facility] [address] [id number] [place] [address]- 4750 Nov, [facility] [place] [facility] [address] [id number] [place] [address]- 6899 Oct, [facility] [place] [facility] [address] [id number] [place] [address]- 1236 Oct, [facility] [place] [facility] [address] [id number] [place] [address]- 5942 Oct, [facility] [place] [facility] [address] [id number] [place] [address]- 1789 September, [facility] [place] [facility] [address] [id number] [place] [address] 2546 09 Aug, 2012 [facility] [address] [id number] [place] [address]- 8633 Aug, [facility] [place] [facility] [address] [id number] [place] [address]- 2546 Aug, [facility] [address] [id number] [place] [address]- 4836 Jul, [facility] [place] [facility] [address] [id number] [place] [address]- 2743 Jul, [facility] [address] [id number] [place] [address]- 9476 Jul, [facility] [address] [id number] [place] [address]- 4986 Jul, [facility] [address] [id number] [place] [address]- 5386 Jul, [facility] [address] [id number] [place] [address]- 0234 Jun, [facility] [address] [id number] [place] [address]- 3836 Jun, [facility] [address] [id number] [place] [address]- 4871 May, [facility] [address] [id number] [place] [address]- 9716 May, [facility] [address] [id number] [place] [address]- 4261 Apr, [facility] [place] [facility] [address] [id number] [place] [address]- 9376 Apr, [facility] [place] [facility] [address] [id number] [place] [address]- 0016 Mar, [facility] [address] [id number] [place] [address] 1957 Mar, [facility] [place] [facility] [address] [id number] [place] [address]- 2680 Mar, [facility] [place] [facility] [address] [facility] [id number] [place] [address]- 6966 Mar, [facility] [address] [id number] [id number] Feb, [facility] [place] [facility] [address] [id number] [place] [address]- 6516 Feb, [facility] [place] [facility] [address] [id number] [place] [address]- 7437 Feb, [facility] [place] [facility] [address] [id number] [place] [address]- 2162 Feb, [facility] [place] [facility] [address] [facility] [id number] [place] [address]- 5807 Feb, [facility] [place] [facility] [address] [facility] [id number], [place] [address]- 4222 Feb, [facility] [place] [facility] [address] [facility] [id number] [place] [address]- 9262 Feb, [facility] [place] [facility] [address] [facility] [id number], [place] [address]- 0304 Jan, [facility] [place] [facility] [address] [facility] [id number], [place] [address]- 7156 Jan, [facility] [place] [facility] [address] [id number], [place] [address]- 3196 Dec, [facility] [place] [facility] [address] [facility] [id number], [place] [address]- 2776 Dec, [facility] [place] [facility] [address] [facility] [id number], [place] [address]- 9196 Nov, [facility] [place] [facility] [address] [facility] [id number], [place] [address]- 2976 Oct, [facility] [place] [facility] [address] [facility] [id number], [place] [address]- 5997 September, [facility] [address] [id number] [place] [address]- 7529 September, [facility] [place] [facility] [address] [id number] [place] [address]- 7414 September, [facility] [address] [facility] [id number] [place] [address]- 6024 Aug, [facility] [place] [facility] [address] [id number] [place] [address]- 6793 May, [facility] [address] [id number] [place] [address]- 0545 May, [facility] [place] [facility] [address] [id number] [place] [address]- 2034 Apr, [facility] [address] [facility] [id number] [place] [address]- 4484 Apr, [facility] [place] [facility] [address] [facility] [id number] [place] [address]- 3829 Apr, [facility] [address] [facility] [id number] [place] [address]- 8154 Apr, [facility] [place] [facility] [address] [facility] [id number] [place] [address]- 1060 Apr, [facility] [place] [facility] [address] [facility] [id number], [place] [address]- 6450 Mar, [facility] [place] [facility] [address] [id number], [place] [address]- 3596 Feb, [facility] [place] [facility] [address] [id number] [place] [address]- 8103 Feb, [facility] [place] [facility] [address] [facility] [id number] [place] [address]- 6724 September, [facility] [place] [facility] [address] [facility] [id number] [place] [address]- 3867 Mar, [facility] [place] [facility] [address] [facility] [id number] [place] [address]- 4314 14 Feb, 2010 [facility] [address] [facility] [id number] [place] [address]- 2942 11 Feb, 2010 [facility] [address] [facility] [id number] [place] [address]- 0508 11 Feb, 2010 IMMUNIZATIONS No Known Immunizations SOCIAL HISTORY Never Assessed REASON FOR VISIT Waiting for call back PLAN OF CARE VITAL SIGNS MEDICATIONS Unknown [...] foot fracture Hospitalization History Via [facility]- Back Pain 03/24/2017
--- OUTSIDE RECORDS SUMMARY | 2018-04-10 18:05 | XMS REPORT ---
Author Author GELY SHAY Organization [facility] Address [address] [place] [address] Care Team Providers Care Display Manager Name Role Phone GELY SHAY Unavailable PROBLEMS Type Condition ICD9-CM Code XXI24-TM Code Onset Dates Condition Status SNOMED Code Problem Color blindness H53.50 Active 032203972 Problem Presbyopia of both eyes H52.4 Active 90892587 Problem Nuclear senile cataract of both eyes H25.13 Active 962413139 Problem Astigmatism of both eyes, unspecified type H52.203 Active 22919857 Problem Overactive bladder N32.81 Active 854682794 Problem Essential hypertension I10 Active 63259850 Problem Other chronic pain G89.29 Active 86162864 Problem Hypermetropia of both eyes H52.03 Active 84014065 Problem Alzheimer's disease, unspecified G30.9 Active 917918580 Problem Mild episode of recurrent major depressive disorder F33.0 Active 635783018 Problem 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 Active 990227472 Problem Major depressive disorder, single episode, mild F32.0 Active 18306506 Problem Chronic fatigue R53.82 Active 63887745 Problem Hydrocele, unspecified hydrocele type N43.3 Active 24370407 Problem Other acute pulmonary embolism without acute cor pulmonale I26.99 Active 327010514 Problem 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 Active 038720646 Problem Asymptomatic microscopic hematuria R31.21 Active 861499639 Problem Gait instability R26.81 Active 33617179 Problem PVD (peripheral vascular disease) I73.9 Active 331160684 Problem At high risk for falls Z91.81 Active [id number] Problem 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 Active 97447063 Problem Benign non-nodular prostatic hyperplasia with lower urinary tract symptoms N40.1 Active 893640423 Problem Alzheimers disease with late onset G30.1 Active 408419171 Problem Renal cyst, left Q61.00 Active 48731480 Problem Mixed hyperlipidemia E78.2 Active 880132831 Problem Anxiety F41.9 Active 72766774 Problem Transient cerebral ischemia, unspecified transient cerebral ischemia type G45.9 Active 769792776 Problem Primary insomnia F51.01 Active 579370352 ALLERGIES No Information ENCOUNTERS Encounter Location Date Diagnosis [facility] [id number] [place] [address] 99914- 6090 Dec, [place] [address] [address]- [address]34 Nov, [place] [facility] [address] 44158- 3544 Oct, Edema leg R60.0 [place] [address] 85030- 0285 September, [facility] [facility] [address] 85439- 3225 September, Alzheimers disease with late onset G30.1 and Mild episode of recurrent major depressive disorder F33.0 [facility] [address] [address]38- 3954 September, PVD (peripheral vascular disease) I73.9 ; Major depressive disorder, single episode, mild F32.0 ; Chronic fatigue R53.82 ; Weight gain R63.5 and Arthralgia, unspecified joint M25.50 [facility] [id number] [place] [address] 17641- 4579 Aug, Acute low back pain, unspecified back pain laterality, with sciatica presence unspecified M54.5 [facility] [id number] [place] [address] 25644- 6592 Aug, Acute low back pain, unspecified back pain laterality, with sciatica presence unspecified M54.5 [facility] [id number] [place] [address] 72879- 1488 Aug, Pain R52 [facility] [place] [address] [place] [address]- 23[address] Jul, [place] [id number] 68786- 7867 Jun, [facility] [id number] [place] [address] 27275- 8761 07 Jun, 2017 Mixed hyperlipidemia E78.2 ; Medicare annual wellness visit , initial Z00.00 ; Essential hypertension I10 ; Anxiety F41.9 ; Alzheimers disease with late onset G30.1 ; 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 ; Overactive bladder N32.81 ; Primary insomnia F51.01 ; At high risk for falls Z91.81 and Encounter for immunization Z23 [place] [id number] [place] [address] 68245- 5919 May, [place] [address] 21463- 0283 May, Essential hypertension I10 and Transient cerebral ischemia, unspecified transient cerebral ischemia type G45.9 [facility] [id number] [place] [address] [id number] May, Dental examination Z01.20 and Dental caries K02.9 [place] [id number] [place] [address] 61400- 7876 May, [place] [id number] [place] [address] 86088- 7599 May, [place] [id number] [place] [address] 91950- 8277 May, Alzheimers disease with late onset G30.1 [place] [place] [id number] [place] [address] 11717- 1394 Apr, [place] [address] 49513- 1621 Apr, Alzheimers disease with late onset G30.1 and Mild episode of recurrent major depressive disorder F33.0 [place] [address] [place] [address]- 9826 Mar, Mild episode of recurrent major depressive disorder F33.0 [facility] [address] 18303- 0350 Mar, Mixed hyperlipidemia E78.2 ; Essential hypertension I10 ; Asymptomatic microscopic hematuria R31.21 and Renal cyst, left Q61.00 [place] [address] 15171- 3742 Mar, [facility] [address] 33894- 1316 Feb, Encounter for immunization Z23 [place] [address] 90429- 7724 Feb, [facility] [address] 20990- 6295 Feb, [facility] [address] 47984 -5096 Feb, ANUG (acute necrotizing ulcerative gingivitis) A69.1 [place] [id number] [place] [address] 07477- 5607 Feb, [facility] [id number] [place] [address] 54455- 8219 Feb, Mild episode of recurrent major depressive disorder F33.0 [facility] [id number] [place] [address] 34481- 1941 Feb, Alzheimers disease with late onset G30.1 and Mild episode of recurrent major depressive disorder F33.0 [facility] [id number] [place] [address] 34886- 1524 Jan, Alzheimers disease with late onset G30.1 [facility] [id number] [place] [address] 49087- 9718 18 Jan, 2017 Gait instability R26.81 [facility] [id number] [address] Jan [facility] [address] [id number] [place] [address] Dec [facility] [address] [address]- 7948 Dec, [facility] [address] [address]- 0337 Dec, [facility] [id number] [place] [address] 40605- 2765 Dec, Essential hypertension I10 ; Transient cerebral ischemia, unspecified transient cerebral ischemia type G45.9 and Anxiety F41.9 [facility] [id number] [place] [address] 43025- 5875 Dec, Gait instability R26.81 [facility] [id number] [place] [address] 04331- 9557 Dec, [facility] [id number] [place] [address] 51196- 8598 Nov, Alzheimers disease with late onset G30.1 and Mild episode of recurrent major depressive disorder F33.0 [facility] [address] [address]- 1287 Nov, [facility] [address] [address] 1975 Nov, Gait instability R26.81 [facility] [id number] [place] [address] 88932- 3860 Nov, Anxiety F41.9 [facility] [address] [address]- 8072 Nov, [facility] [address] [address]- 4534 Nov, [facility] [address], [place] [address]- 9834 Oct, Gait instability R26.81 [facility] [id number] [place] [address] 42845- 1532 14 Oct, 2016 Anxiety F41.9 [facility] [id number] [place] [address] 99494- 8265 13 Oct, 2016 Gait instability R26.81 [facility] [id number] [place] [address] 43793- 6864 Oct, Gait instability R26.81 [facility] [id number] [place] [address] 01458- 1619 Oct, [facility] [id number] [place] [address] 43731- 9041 Oct, Anxiety F41.9 ; Chronic 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 use Z79.899 ; Encounter for immunization Z23 and Transient cerebral ischemia, unspecified transient cerebral ischemia type G45.9 [facility] [id number] [place] [address] 21971- 4024 September, [facility] [id number] [place] [address] 78341- 8261 September, Gait instability R26.81 [facility] [id number] [place] [address] 50576- 2487 September, [facility] [id number] [place] [address] 62777- 7022 September, [facility] [id number] [place] [address] 86116- 2470 September, [facility] [id number] [place] [address] 46776- 7761 September, Alzheimers disease with late onset G30.1 and Mild episode of recurrent major depressive disorder F33.0 [facility] [id number] [place] [address] 00630- 1293 September, [facility] [id number] [place] [address] 40301- 2086 September, [facility] [id number] [address]- 2525 September, [facility] [id number] [address]- 7735 September, Mild episode of recurrent major depressive disorder F33.0 [facility] [id number] [address]- 9236 Aug, Mild episode of recurrent major depressive disorder F33.0 ; Alzheimers disease with late onset G30.1 ; Other acute pulmonary embolism without acute cor pulmonale I26.99 and Cough R05 [facility] [address], [place] [address]- 4505 Aug, [facility] [id number] [place] [address] 07370- 3618 Aug, Gait instability R26.81 [facility] [address], [place] [address]- 0857 Aug, Alzheimers disease with late onset G30.1 and Mild episode of recurrent major depressive disorder F33.0 [facility] [address], [place] [address]- 3773 Aug, [facility] [id number] [address]- 8149 Aug, 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 [facility] [address], [place] [address]- 5462 Jul, Alzheimers disease with late onset G30.1 [facility] [id number], [place] [address]- 3599 Jul, [facility] [id number] [address]- 9064 Jul, 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 [facility] [id number], [place] [address]- 3622 Jul, Anxiety F41.9 ; Alzheimers disease with late onset G30.1 and Transient cerebral ischemia, unspecified transient cerebral ischemia type G45.9 [facility] [id number] [place] [address] 24648- 2724 Jun, Essential hypertension I10 [facility] [id number] [place] [address] 45697- 7053 Jun, [facility] [id number] [place] [address] 09491- 9975 Jun, [facility] [id number] [place] [address] 88057- 4156 Jun, [facility] [id number] [place] [address] 34385- 0731 Jun, Essential hypertension I10 ; Benign non-nodular prostatic hyperplasia with lower urinary tract symptoms N40.1 ; Anxiety F41.9 ; Pain in right knee M25.561 ; Pain in left knee M25.562 and Other chronic pain G89.29 [facility] [id number] [place] [address] 38787- 2252 May, [facility] [id number] [place] [address] 57897- 9070 May, [facility] [id number] [place] [address] 18605- 8737 May, [facility] [id number] [place] [address] 22315- 2851 Apr, [facility] [id number] [place] [address] 44709- 3809 Mar, [facility] [id number] [place] [address] 50884- 6139 Mar, Mixed hyperlipidemia E78.2 and Essential hypertension I10 [facility] [id number] [place] [address] 08082- 9068 Feb, [facility] [id number] [place] [address] 60720- 1543 Feb, Ingrown nail L60.0 and Onychomycosis B35.1 [facility] [id number] [place] [address] 79093- 2763 Feb, Paronychia, left L03.012 [facility] [id number] [place] [address] 10434- 9120 Jan, [facility] [address] 63368- 4326 Jan, Mixed hyperlipidemia E78.2 and Cramps of right lower extremity R25.2 [facility] [id number] [place] [address] 11332- 8250 Jan, Cramps of right lower extremity R25.2 ; Essential hypertension I10 ; Mixed hyperlipidemia E78.2 ; Chronic 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 use Z79.899 and Claudication I73.9 [facility] [id number] [place] [address] 27315- 3158 Jan, Right leg pain M79.604 [facility] [id number] [place] [address] 15017- 6880 Dec, [facility] [id number] [place] [address] 32610- 5951 Nov, [facility] [id number] [place] [address] 44550- 1243 Nov, [facility] [id number] [place] [address] 01155- 9987 Nov, [facility] [id number] [place] [address] 96593- 5955 Nov, Dermatofibroma D23.9 [facility] [id number] [place] [address] 96028- 5094 Nov, [facility] [id number] [place] [address] 54380- 5806 Oct, [facility] [id number] [address]- 4064 Oct, [facility] [id number] [place] [address] 65618- 6806 September, Benign non-nodular prostatic hyperplasia with lower urinary tract symptoms N40.1 ; Essential hypertension I10 ; Overactive bladder N32.81 and Fatigue, unspecified type R53.83 [facility] [id number] [place] [address] 26316- 6146 September, [facility] [id number] [place] [address] 70293- 2850 September, [facility] [id number] [place] [address] 29118- 0522 Aug, [facility] [id number] [place] [address] 90251- 9640 Jul, [facility] [id number] [place] [address] 94155- 1768 Jul, Pelvic pain R10.2 ; Jock itch B35.6 ; Essential hypertension I10 and Hydrocele, unspecified hydrocele type N43.3 [facility] [id number] [place] [address] 42954- 4257 Jun, [facility] [address], [place] [address]- 9127 Jun, [facility] [id number] [place] [address] 47436- 3787 Jun, Benign non-nodular prostatic hyperplasia with lower urinary tract symptoms N40.1 [facility] [id number] [place] [address] 42470- 3015 Jun, Benign non-nodular prostatic hyperplasia with lower urinary tract symptoms N40.1 [facility] [id number] [place] [address] 94097- 7082 Jun, [facility] [id number] [place] [address] 48370- 1231 May, [facility] [id number] [place] [address] 28348- 9777 Apr, [facility] [id number] [place] [address] 99162- 2159 Apr, [facility] [id number] [place] [address] 34658- 7458 Apr, Other acute pulmonary embolism without acute cor pulmonale I26.99 ; Anxiety F41.9 ; 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 and intermediate accountant 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 use Z79.899 [facility] [id number] [place] [address] 87468- 6718 Apr, [facility] [id number] [place] [address] 73747- 0030 Apr, [facility] [address] 38952- 6104 Mar, [facility] [id number] [place] [address] 86383- 1113 Mar, [facility] [id number] [place] [address] 24705- 6134 Feb, Cough R05 [facility] [id number] [place] [address] 23736- 3643 Feb, [facility] [id number] [place] [address] 89520- 1628 Feb, Encounter for immunization Z23 [facility] [id number] [place] [address] 41917- 1537 Feb, Other and unspecified hyperlipidemia 272.4 [facility] [id number] [place] [address] 77926- 1816 Jan, [facility] [id number] [place] [address] 94592- 7979 Jan, TIA (transient ischemic attack) 435.9 [facility] [address], [place] [address]- 8539 Dec, [facility] [id number] [place] [address] 13378- 3420 Dec, [facility] [address], [place] [address]- 0389 Dec, [facility] [id number] [place] [address] 32883- 8780 Nov, [facility] [id number] [place] [address] 30156- 5601 Oct, Chronic cough 786.2 [facility] [id number] [place] [address] 58016- 0709 Oct, [facility] [id number] [place] [address] 31682- 4488 Oct, [facility] [id number] [place] [address] 79482- 6576 Oct, [facility] [address], [place] [address]- 4893 Oct, [facility] [id number] [place] [address] 68577- 9810 Oct, Chronic cough 786.2 [facility] [address], [place] [address]- 7020 Oct, Cough 786.2 ; Hypertension 401.9 ; BPH (benign prostatic hyperplasia) 600.00 ; Other and unspecified hyperlipidemia 272.4 and Hydrocele 603.9 [facility] [address], [place] [address]- 7545 Oct, [facility] [id number] [place] [address] 02179- 9262 September, [facility] [address], [place] [address]- 2984 Aug, [facility] [id number] [place] [address]- 7029 13 Aug, 2014 [facility] [place] [facility] [address] [id number] [place] [address]- 6056 Jul, [facility] [place] [facility] [address] [id number] [place] [address]- 5332 Jul, [facility] [place] [facility] [address] [id number] [place] [address]- 1619 Jul, [facility] [place] [facility] [address] [id number] [place] [address]- 7041 Jul, [facility] [place] [facility] [address] [id number] [place] [address]- 3706 Jul, [facility] [place] [facility] [address] [id number] [place] [address]- 8643 Jun, 2014 [facility] [place] [facility] [address] [id number] [place] [address]- 1352 Jun, 2014 [facility] [place] [facility] [address] [id number] [place] [address]- 1802 Jun, [facility] [place] [facility] [address] [id number] [place] [address]- 1351 Jun, 2014 [facility] [place] [facility] [address] [id number] [place] [address]- 8266 Jun, 2014 [facility] [place] [facility] [address] [id number] [place] [address] 2540 Jun, 2014 [facility] [place] [facility] [address] [id number] [place] [address] 2541 Jun, 2014 [facility] [place] [facility] [address] [id number] [place] [address]- 9477 Jun, [facility] [place] [facility] [address] [id number] [place] [address]- 6628 May, [facility] [place] [facility] [address] [id number] [place] [address]- 5132 May, [facility] [place] [facility] [address] [id number] [place] [address]- 4938 May, [facility] [place] [facility] [address] [id number] [place] [address]- 5786 May, [facility] [place] [facility] [address] [id number] [place] [address]- 3663 May, [facility] [place] [facility] [address] [id number] [place] [address]- 7198 May, [facility] [place] [facility] [address] [id number] [place] [address]- 5943 May, [facility] [place] [facility] [address] [id number] [place] [address]- 1207 May, [facility] [place] [facility] [address] [id number] [place] [address]- 3600 May, [facility] [place] [facility] [address] [id number] [place] [address]- 8075 May, [facility] [place] [facility] [address] [id number] [place] [address] Apr, [facility] [place] [facility] [address] [id number] [place] [address] Apr, [facility] [place] [facility] [address] [id number], [place] [address] Apr, [facility] [place] [facility] [address] [id number], [place] [address] Apr, [facility] [place] [facility] [address] [id number] [place] [address] Apr, [facility] [place] [facility] [address] [id number] [place] [address] Apr, [facility] [place] [facility] [address] [id number] [place] [address] Apr, [facility] [place] [facility] [address] [id number] [place] [address] Apr, [facility] [place] [facility] [address] [id number] [place] [address] Mar, [facility] [place] [facility] [address] [id number] [place] [address] Mar, [facility] [place] [facility] [address] [id number] [place] [address] Mar, [facility] [place] [facility] [address] [id number] [place] [address] Mar, [facility] [place] [facility] [address] [id number] [place] [address] Mar, [facility] [place] [facility] [address] [id number] [place] [address] Mar, [facility] [place] [facility] [address] [id number] [place] [address] Mar, [facility] [place] [facility] [address] [id number] [place] [address] Mar, [facility] [place] [facility] [address] [id number] [place] [address] Mar, [facility] [place] [facility] [address] [address] [id number] [place] [address] Mar, [facility] [place] [facility] [address] [id number] [place] [address] Feb, [facility] [place] [facility] [address] [id number] [place] [address] Feb, [facility] [place] [facility] [address] [id number] [place] [address] Feb, [facility] [place] [facility] [address] [id number] [place] [address] Feb, [facility] [place] [facility] [address] [id number] [place] [address] 47[address] Feb, [facility] [place] [facility] [address] [id number] [place] [address]1 14 Feb, 2014 [facility] [place] [facility] [address] [id number] [place] [address]40 30 Jan, 2013 [facility] [place] [facility] [address] [id number] [place] [address]898 30 Jan, 2013 [facility] [place] [facility] [address] [id number] [place] [address] 24 Jan, 2013 [facility] [place] [facility] [address] [id number] [place] [address] 8005 24 Jan, 2013 [facility] [place] [facility] [address] [id number] [place] [address]- 9821 19 Jan, 2013 [facility] [place] [facility] [address] [id number] [place] [address]- 7926 19 Jan, 2013 [facility] [place] [facility] [address] [id number] [place] [address]- 5874 16 Jan, 2013 [facility] [place] [facility] [address] [id number] [place] [address] 9912 16 Jan, 2013 [facility] [place] [facility] [address] [id number] [place] [address] 6299 16 Jan, 2013 [facility] [place] [facility] [address] [id number] [place] [address]- 1044 16 Jan, 2013 [facility] [place] [facility] [address] [id number] [place] [address] 5186 12 Jan, 2013 [facility] [place] [facility] [address] [id number] [place] [address]- 8969 12 Jan, 2014 [facility] [place] [facility] [address] [id number] [place] [address] 8122 Dec, [facility] [place] [facility] [address] [id number] [place] [address] 9476 Dec, [facility] [place] [facility] [address] [id number] [place] [address] 5765 Dec, [facility] [place] [facility] [address] [id number] [place] [address] Dec, [facility] [place] [facility] [address] [id number] [place] [address]- 8392 Dec, [facility] [place] [facility] [address] [id number] [place] [address]- 8161 Dec, [facility] [place] [facility] [address] [id number] [place] [address] 3337 Nov, [facility] [place] [facility] [address] [id number] [place] [address] 8271 Nov, [facility] [place] [facility] [address] [id number] [place] [address]- 4414 Nov, [facility] [place] [facility] [address] [id number] [place] [address] 8950 Nov, [facility] [place] [facility] [address] [id number] [place] [address] 6435 Nov, [facility] [place] [facility] [address] [id number] [place] [address]- 9599 Nov, [facility] [place] [facility] [address] [id number] [place] [address] 4513 Nov, [facility] [place] [facility] [address] [id number] [place] [address] 0602 Nov, [facility] [place] [facility] [address] [id number] [place] [address]- 6569 Oct, [facility] [place] [facility] [address] [id number] [place] [address]- 0696 Oct, [facility] [place] [facility] [address] [id number] [place] [address] 7410 Oct, [facility] [place] [facility] [address] [id number] [place] [address]- 8988 Oct, [facility] [place] [facility] [address] [id number] [place] [address]- 5679 September, [facility] [address] [id number] [place] [address] 3706 September, [facility] [address] [id number] [place] [address] 5059 September, [facility] [address] [id number] [place] [address]- 2381 September, [facility] [address] [id number] [place] [address]- 6910 September, [facility] [address] [id number] [place] [address] 2183 September, [facility] [address] [id number] [place] [address]- 6165 Aug, [facility] [address] [id number] [place] [address]- 2576 Aug, [facility] [address] [id number] [place] [address]- 9095 Aug, [facility] [address] [id number] [place] [address]- 4765 Aug, [facility] [address] [id number] [place] [address]- 1005 Aug, [facility] [place] [facility] [address] [id number] [place] [address]- 9205 Aug, [facility] [address] [id number] [place] [address] 0023 Aug, [facility] [place] [facility] [address] [id number] [place] [address] Aug, [facility] [place] [facility] [address] [id number] [place] [address]- 7474 Jul, [facility] [place] [facility] [address] [id number] [place] [address]- 3456 Jul, [facility] [place] [facility] [address] [id number] [place] [address] 4931 Jun, [facility] [place] [facility] [address] [id number] [place] [address] 1231 Jun, [facility] [place] [facility] [address] [id number] [place] [address] Jun, [facility] [place] [facility] [address] [id number] [place] [address]- 6621 Jun, [facility] [place] [facility] [address] [id number] [place] [address]- 8991 Jun, [facility] [place] [facility] [address] [id number] [place] [address]- 3290 May, [facility] [place] [facility] [address] [id number] [place] [address]- 0300 May, [facility] [place] [facility] [address] [id number], [place] [address] 9542 May, [facility] [place] [facility] [address] [id number] [place] [address]- 0132 May, [facility] [place] [facility] [address] [id number] [place] [address]- 9192 Apr, [facility] [place] [facility] [address] [id number], [place] [address] 6228 Apr, [facility] [place] [facility] [address] [id number], [place] [address]- 5798 Mar, [facility] [place] [facility] [address] [id number] [place] [address]- 9601 Mar, [facility] [place] [facility] [address] [id number], [place] [address]- 9415 Feb, [facility] [place] [facility] [address] [id number] [place] [address]- 6197 Feb, [facility] [place] [facility] [address] [id number] [place] [address]- 2239 Feb, [facility] [place] [facility] [address] [id number] [place] [address]- 2636 Feb, [facility] [place] [facility] [address] [id number] [place] [address]- 4287 Feb, [facility] [place] [facility] [address] [id number] [place] [address]- 9224 Feb, [facility] [place] [facility] [address] [id number] [place] [address]- 6052 Feb, [facility] [place] [facility] [address] [id number] [place] [address]- 6777 Jan, [facility] [place] [facility] [address] [id number] [place] [address]- 5731 Jan, [facility] [place] [facility] [address] [id number] [place] [address]- 7937 Dec, [facility] [place] [facility] [address] [id number] [place] [address]- 2200 Dec, [facility] [place] [facility] [address] [id number] [place] [address]- 4673 Dec, [facility] [place] [facility] [address] [id number] [place] [address]- 7547 Dec, [facility] [place] [facility] [address] [id number] [place] [address]- 4337 Dec, [facility] [place] [facility] [address] [id number] [place] [address]- 3458 Nov, [facility] [place] [facility] [address] [id number] [place] [address]- 2873 Nov, [facility] [place] [facility] [address] [id number] [place] [address]- 9738 Nov, [facility] [place] [facility] [address] [id number] [place] [address]- 2204 Oct, [facility] [place] [facility] [address] [id number] [place] [address]- 7653 Oct, [facility] [address] [id number] [place] [address]- 5188 Oct, [facility] [address] [id number] [place] [address]- 8729 September, [facility] [address] [id number] [place] [address]- 9898 Aug, [facility] [address] [id number] [place] [address]- 7367 Aug, [facility] [address] [id number] [place] [address]- 3412 Aug, [facility] [address] [id number] [place] [address]- 0897 Jul, [facility] [address] [id number] [place] [address]- 3920 Jul, [facility] [address] [id number] [place] [address]- 7432 Jul, [facility] [address] [id number] [place] [address]- 3582 Jul, [facility] [address] [id number] [place] [address]- 2210 Jul, [facility] [address] [id number] [place] [address]- 4385 Jun, [facility] [place] [facility] [address] [id number] [place] [address]- 0307 Jun, [facility] [place] [facility] [address] [id number] [place] [address]- 7346 May, [facility] [place] [facility] [address] [id number] [place] [address]- 2546 May, [facility] [place] [facility] [address] [id number], [place] [address] 2546 Apr, [facility] [address] [id number], [place] [address] 2546 Apr, [facility] [place] [facility] [address] [id number], [place] [address]- 2546 Mar, [facility] [address] [id number], [place] [address]- 2546 Mar, [facility] [place] [facility] [address] [id number], [place] [address]- 2546 Mar, [facility] [address] [id number], [place] [address]- 2546 Mar, [facility] [address] [id number][place] [id number] Feb, [facility] [address] [id number], [place] [address]- 2296 Feb, [facility] [place] [facility] [address] [id number], [place] [address]- 7876 Feb, [facility] [address] [id number], [place] [address]- 6366 Feb, [facility] [place] [facility] [address] [id number], [place] [address]- 6576 Feb, [facility] [address] [id number], [place] [address]- 2546 Feb, [facility] [place] [facility] [address] [id number], [place] [address]- 2546 Feb, [facility] [place] [facility] [address] [id number], [place] [address]- 2546 Jan, [facility] [place] [facility] [address] [id number], [place] [address]- 2546 Jan, [facility] [place] [facility] [address] [id number], [place] [address]- 2546 Dec, [facility] [place] [facility] [address] [id number] [place] [address] 2546 Dec, [facility] [address] [id number] [place] [address]- 7189 Nov, [facility] [place] [facility] [address] [id number] [place] [address] 2546 Oct, [facility] [address] [id number] [place] [address] 2546 September, [facility] [place] [facility] [address] [id number] [place] [address]- 2546 September, [facility] [address] [id number] [place] [address] 2546 September, [facility] [address] [id number] [place] [address]- 5886 Aug, [facility] [address] [id number] [place] [address]- 6006 May, [facility] [address] [id number] [place] [address]- 0783 May, [facility] [address] [id number] [place] [address]- 6939 Apr, [facility] [address] [id number] [place] [address]- 3606 Apr, [facility] [address] [id number] [place] [address]- [address] Apr, [facility] [address] [id number] [place] [address]- 2546 Apr, [facility] [place] [facility] [address] [id number] [place] [address]- 2546 Apr, [facility] [place] [facility] [address] [id number] [place] [address]- 2546 Mar, [facility] [address] [id number] [place] [address]- 8036 Feb, [facility] [address] [id number], [place] [address]- 6826 Feb, [facility] [address] [id number], [place] [address]- 6220 September, [facility] [address] [id number], [place] [address]- 3093 Mar, [facility] [id number], [place] [address]- 0838 Feb, [facility] [address] [id number], [place] [address]- 3665 Feb, [facility] [address] [id number], [place] [address]- 1211 Feb, IMMUNIZATIONS No Known Immunizations SOCIAL HISTORY Never Assessed REASON FOR VISIT Requests return call PLAN OF CARE VITAL SIGNS MEDICATIONS Medication Instructions Dosage Frequency Start Date End Date Duration Status Mobic 15 mg Orally Once a day 1 tablet 24h Jul, Aug, 30 day(s) Active Tramadol HCl 50 mg Orally every 6 hrs 1 tablet as needed for severe pain 6h Jul, Active RESULTS No Results PROCEDURES No Known [...] foot fracture Hospitalization History [facility]- Back Pain 03/24/2017
--- OUTSIDE RECORDS SUMMARY | 2018-04-10 18:06 | XMS REPORT ---
Author Author PASCUAL WHITNEY Organization [facility] Address [address] [place] [address] Care Team Providers Care Curtain Inspector Name Role Phone TEA WHITNEYCHIKI Unavailable PROBLEMS Type Condition ICD9-CM Code TBZ70-RH Code Onset Dates Condition Status SNOMED Code Problem Color blindness H53.50 Active 684348460 Problem Presbyopia of both eyes H52.4 Active 75562525 Problem Nuclear senile cataract of both eyes H25.13 Active 698667109 Problem Astigmatism of both eyes, unspecified type H52.203 Active 75571793 Problem Overactive bladder N32.81 Active 401774480 Problem Essential hypertension I10 Active 42018340 Problem Other chronic pain G89.29 Active 21030479 Problem Hypermetropia of both eyes H52.03 Active 05161136 Problem Alzheimer's disease, unspecified G30.9 Active 832917626 Problem Mild episode of recurrent major depressive disorder F33.0 Active 560861598 Problem 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 Active 301567010 Problem Major depressive disorder, single episode, mild F32.0 Active 50180231 Problem Chronic fatigue R53.82 Active 59216765 Problem Hydrocele, unspecified hydrocele type N43.3 Active 84565994 Problem Other acute pulmonary embolism without acute cor pulmonale I26.99 Active 011777458 Problem 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 Active 526983307 Problem Asymptomatic microscopic hematuria R31.21 Active 696780777 Problem Gait instability R26.81 Active 33749384 Problem PVD (peripheral vascular disease) I73.9 Active 678256260 Problem At high risk for falls Z91.81 Active [id number] Problem 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 Active 56717500 Problem Benign non-nodular prostatic hyperplasia with lower urinary tract symptoms N40.1 Active 899368709 Problem Alzheimers disease with late onset G30.1 Active 340516285 Problem Renal cyst, left Q61.00 Active 07295449 Problem Mixed hyperlipidemia E78.2 Active 722367563 Problem Anxiety F41.9 Active 30046382 Problem Transient cerebral ischemia, unspecified transient cerebral ischemia type G45.9 Active 486926838 Problem Primary insomnia F51.01 Active 647590640 ALLERGIES Substance Reaction Event Type Date Status Vicodin Unknown Drug Allergy Feb, Active Lovastatin had a reaction to a statin but is unsure of which statin it was Drug Allergy Feb, Active Codeine Sulfate Unknown Drug Allergy Feb, Active ENCOUNTERS Encounter Location Date Diagnosis [place] [address] [address] Dec, [place] [address] [address] September, Alzheimers disease with late onset G30.1 and Mild episode of recurrent major depressive disorder F33.0 [place] [address] 12[address]- [address] September, PVD (peripheral vascular disease) I73.9 ; Major depressive disorder, single episode, mild F32.0 ; Chronic fatigue R53.82 ; Weight gain R63.5 and Arthralgia, unspecified joint M25.50 [place] [address] [address]- [address]754 Aug, Acute low back pain, unspecified back pain laterality, with sciatica presence unspecified M54.5 [place] [address] 0[address]- [address] Aug, Acute low back pain, unspecified back pain laterality, with sciatica presence unspecified M54.5 [place] [address] 00187- 1339 Aug, Pain R52 [place] [address] 22205- 3521 Jul, [place] [address] 17358- 6544 Jun, [place] [id number] [place] [address] 73862- 0035 07 Jun, 2017 Medicare annual wellness visit, initial Z00.00 ; Mixed hyperlipidemia E78.2 ; Essential hypertension I10 ; Anxiety F41.9 ; Alzheimers disease with late onset G30.1 ; 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 ; Overactive bladder N32.81 ; Primary insomnia F51.01 ; At high risk for falls Z91.81 and Encounter for immunization Z23 [facility] [place] [address] [place] [id number] [place] [address] 15266- 6655 May, [place] [address] 64143- 655[address] May, Essential hypertension I10 and Transient cerebral ischemia, unspecified transient cerebral ischemia type G45.9 [facility] [address] [place] [id number] [place] [address] [id number] May, Dental examination Z01.20 and Dental caries K02.9 [place] [address] [place] [id number] [place] [address] 62936- 7558 May, [place] [address] [place] [id number] [place] [address] 90347- 7634 May, [place] [address] [place] [id number] [place] [address] 05402- 3771 May, Alzheimers disease with late onset G30.1 [place] [address] [place] [id number] [place] [address] 18018- 8509 Apr, [place] [address] [place] [id number] [place] [address] 20156- 3344 Apr, Alzheimers disease with late onset G30.1 and Mild episode of recurrent major depressive disorder F33.0 [place] [address] [place] [id number] [place] [address] 81258- 5828 Mar, Mild episode of recurrent major depressive disorder F33.0 [place] [address] [place] [id number] [place] [address] 87163- 8014 Mar, Mixed hyperlipidemia E78.2 ; Essential hypertension I10 ; Asymptomatic microscopic hematuria R31.21 and Renal cyst, left Q61.00 [facility] [place] [address] [place] [id number] [place] [address] 10114- 4784 Mar, [facility] [place] [address] [id number] [place] [address] 39372- 0690 Feb, Encounter for immunization Z23 [facility] [place] [address] 93226- 7597 Feb, [facility] [place] [address] 46933- 0836 Feb, [facility] [address] [place] [id number] [place] [address] 75588 -9095 Feb, ANUG (acute necrotizing ulcerative gingivitis) A69.1 [place] [address] 15067- 8041 Feb, [facility] [place] [address] [place] [id number] [place] [address] 30684- 9661 Feb, Mild episode of recurrent major depressive disorder F33.0 [place] [address] [place] [id number] [place] [address] 83801- 4032 Feb, Alzheimers disease with late onset G30.1 and Mild episode of recurrent major depressive disorder F33.0 [place] [address] [place] [id number] [place] [address] 02234- 9742 Jan, Alzheimers disease with late onset G30.1 [facility] [place] [address] [place] [id number] [place] [address] 87466- 2024 Jan, Gait instability R26.81 [facility] [address] [id number] [place] [address] Jan [facility] [address] [id number] [place] [address] Dec [facility] [place] [address] [place] [id number] [place] [address] 35877- 4873 Dec, [facility] [place] [address] [address] 4[address] Dec, [facility] [place] [id number] [place] [address] 68021- 2166 Dec, Essential hypertension I10 ; Transient cerebral ischemia, unspecified transient cerebral ischemia type G45.9 and Anxiety F41.9 [facility] [place] [address] [place] [id number] [place] [address] 57498- 6311 Dec, Gait instability R26.81 [facility] [place] [address] [place] [id number] [place] [address] 40727- 9313 Dec, [facility] [place] [address] [id number] [place] [address] 39088- 2554 Nov, Alzheimers disease with late onset G30.1 and Mild episode of recurrent major depressive disorder F33.0 [facility] [place] [address] [place] [id number] [place] [address] 86615- 5113 Nov, [facility] [place] [id number] [place] [address] 55436- 2825 Nov, Gait instability R26.81 [facility] [place] [address] [place] [id number] [place] [address] 58596- 7743 Nov, Anxiety F41.9 [facility] [place] [id number] [address]- 5885 Nov, [facility] [place] [id number] [address] Nov, [facility] [place] [address] [place] [address] 87731- 8490 Oct, Gait instability R26.81 [facility] [place] [id number] [address] 2351 Oct, Anxiety F41.9 [facility] [place] [id number] [place] [address] 93889- 2960 Oct, Gait instability R26.81 [facility] [place] [id number] [address]- 6339 Oct, Gait instability R26.81 [facility] [place] [address] [place] [id number] [place] [address] 34403- 3297 Oct, [facility] [place] [address] [place] [id number] [place] [address] 98436- 8059 Oct, Anxiety F41.9 ; Chronic 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 use Z79.899 ; Encounter for immunization Z23 and Transient cerebral ischemia, unspecified transient cerebral ischemia type G45.9 [facility] [place] [address] [place] [id number] [place] [address] 33624- 6579 September, [facility] [place] [address] [place] [id number] [place] [address] 21089- 1638 September, Gait instability R26.81 [facility] [place] [address] [place] [id number] [place] [address] 88119- 5207 September, [facility] [place] [address] [place] [id number] [place] [address] 83698- 2888 September, [facility] [place] [address] [place] [id number] [place] [address] 78898- 1575 September, [facility] [place] [id number] [address]- 9545 September, Alzheimers disease with late onset G30.1 and Mild episode of recurrent major depressive disorder F33.0 [facility] [place] [id number] [address]- 8402 September, [facility] [place] [id number] [address]- 4147 September, [facility] [place] [address] [place] [id number] [address]- 7670 September, [facility] [place] [id number] [address]- 5484 September, Mild episode of recurrent major depressive disorder F33.0 [facility] [place] [id number] [place] [address] 61860- 6114 Aug, Mild episode of recurrent major depressive disorder F33.0 ; Alzheimers disease with late onset G30.1 ; Other acute pulmonary embolism without acute cor pulmonale I26.99 and Cough R05 [facility] [place] [address] [place] [id number] [place] [address] 16385- 9887 Aug, [facility] [place] [address] [place] [id number] [place] [address] 06893- 1668 Aug, Gait instability R26.81 [facility] [place] [address] [id number] [place] [address] 03268- 4749 Aug, Alzheimers disease with late onset G30.1 and Mild episode of recurrent major depressive disorder F33.0 [facility] [place] [address] [id number] [place] [address] 44967- 7856 Aug, [facility] [place] [address] [id number] [place] [address] 97789- 3442 Aug, 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 [facility] [place] [address] [place] [id number] [place] [address] 39117- 2906 Jul, Alzheimers disease with late onset G30.1 [facility] [place] [address] [place] [id number] [place] [address] 47253- 7682 Jul, [facility] [place] [address] [place] [id number] [place] [address] 02546- 7326 Jul, 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 [facility] [place] [address] [place] [id number] [place] [address] 80372- 7664 Jul, Anxiety F41.9 ; Alzheimers disease with late onset G30.1 and Transient cerebral ischemia, unspecified transient cerebral ischemia type G45.9 [facility] [place] [id number] [place] [address] 18657- 1801 Jun, Essential hypertension I10 [facility] [place] [id number] [place] [address] 68914- 8443 Jun, [facility] [place] [id number] [place] [address] 72934- 9291 Jun, [facility] [place] [id number] [place] [address] 22304- 1358 Jun, [facility] [place] [id number] [place] [address] 61153- 8456 Jun, Essential hypertension I10 ; Benign non-nodular prostatic hyperplasia with lower urinary tract symptoms N40.1 ; Anxiety F41.9 ; Pain in right knee M25.561 ; Pain in left knee M25.562 and Other chronic pain G89.29 [facility] [place] [id number] [place] [address] 22876- 3158 May, [facility] [place] [id number] [place] [address] 84585- 1677 May, [facility] [place] [id number] [place] [address] 09785- 4708 May, [facility] [place] [id number] [place] [address] 63001- 8412 Apr, [facility] [place] [address] [id number] [place] [address] 14703- 4260 Mar, [facility] [place] [address] [place] [id number] [place] [address] 54807- 3885 Mar, Mixed hyperlipidemia E78.2 and Essential hypertension I10 [facility] [place] [address] [place] [address] 86709- 9306 Feb, [facility] [place] [address] [id number] [place] [address] 55928- 0570 Feb, Ingrown nail L60.0 and Onychomycosis B35.1 [facility] [place] [address] [id number] [place] [address] 60851- 1512 Feb, Paronychia, left L03.012 [facility] [place] [id number] [place] [address] 43184- 2259 Jan, [facility] [place] [id number] [place] [address] 94799- 2506 Jan, Cramps of right lower extremity R25.2 and Mixed hyperlipidemia E78.2 [facility] [place] [id number] [place] [address] 54299- 3757 Jan, Cramps of right lower extremity R25.2 ; Essential hypertension I10 ; Mixed hyperlipidemia E78.2 ; Chronic 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 use Z79.899 and Claudication I73.9 [facility] [place] [id number] [place] [address] 86991- 6392 Jan, Right leg pain M79.604 [facility] [place] [id number] [place] [address] 98064- 4090 Dec, [facility] [place] [id number] [place] [address] 13846- 8762 Nov, [facility] [place] [id number] [place] [address] 81033- 8867 Nov, [facility] [place] [id number] [place] [address] 08744- 9929 Nov, [facility] [place] [id number] [place] [address] 35075- 8770 Nov, Dermatofibroma D23.9 [facility] [place] [id number] [place] [address] 18843- 9036 Nov, [facility] [place] [id number] [place] [address] 67531- 3102 Oct, [facility] [place] [id number] [place] [address] 42284- 2580 Oct, [facility] [place] [id number] [place] [address] 76209- 7528 September, Benign non-nodular prostatic hyperplasia with lower urinary tract symptoms N40.1 ; Essential hypertension I10 ; Overactive bladder N32.81 and Fatigue, unspecified type R53.83 [facility] [place] [id number] [place] [address] 02908- 0298 September, [facility] [place] [id number] [place] [address] 12160- 8071 September, [facility] [place] [id number] [place] [address] 62372- 9869 Aug, [facility] [place] [id number] [place] [address] 33511- 6943 Jul, [facility] [place] [id number] [place] [address] 16329- 7522 Jul, Pelvic pain R10.2 ; Jock itch B35.6 ; Essential hypertension I10 and Hydrocele, unspecified hydrocele type N43.3 [facility] [place] [id number] [place] [address] 39740- 3470 Jun, [facility] [place] [id number] [place] [address] 79299- 2092 Jun, [facility] [place] [id number] [place] [address] 44257- 7807 Jun, Benign non-nodular prostatic hyperplasia with lower urinary tract symptoms N40.1 [facility] [place] [id number] [place] [address] 51436- 3707 Jun, Benign non-nodular prostatic hyperplasia with lower urinary tract symptoms N40.1 [facility] [place] [address] [address]- 1196 Jun, [facility] [place] [id number] [place] [address] 55875- 0789 May, [facility] [place] [address] [address]- 6637 Apr, [facility] [place] [id number] [place] [address] 59673- 9073 Apr, [facility] [place] [id number] [place] [address] 87176- 8755 Apr, Other acute pulmonary embolism without acute cor pulmonale I26.99 ; Anxiety F41.9 ; 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 and long-term 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 use Z79.899 [facility] [place] [address] [address]- [address] Apr, [facility] [place] [address] 65199- 5443 Apr, [facility] [place] [address] 330[address]- 9113 Mar, [facility] [place] [address] 94579- 6587 Mar, [facility] [place] [address] 22692- 0015 Feb, Cough R05 [facility] [place] [id number] [place] [address] [id number]- 0331 Feb, [facility] [place] [id number] [place] [address] [id number]- [id number] Feb, Encounter for immunization Z23 [facility] [place] [id number] [place] [address] 41372- [phone] Feb, Other and unspecified hyperlipidemia 272.4 [facility] [place] [id number] [place] [address] [id number]- [phone] Jan, [facility] [place] [address] 48358- 7114 Jan, TIA (transient ischemic attack) 435.9 [facility] [place] [id number] [place] [address] [id number]- 8661 Dec, [facility] [place] [id number] [place] [address] 55021- [phone] Dec, [facility] [place] [id number] [address] Dec, [facility] [place] [id number] [place] [address] [id number]- 3352 Nov, [facility] [place] [id number] [place] [address] 94672- 2895 Oct, Chronic cough 786.2 [facility] [place] [id number] [place] [address] 74857- 4759 Oct, [facility] [place] [id number] [place] [address] [id number]- 0051 Oct, [facility] [place] [id number] [place] [address] 7[address]78- 1715 Oct, [facility] [place] [id number] [place] [address] 82798- 4232 Oct, [facility] [place] [id number] [place] [address] 68236- 8709 Oct, Chronic cough 786.2 [facility] [place] [id number] [place] [address] 61379- 6715 Oct, Cough 786.2 ; Hypertension 401.9 ; BPH (benign prostatic hyperplasia) 600.00 ; Other and unspecified hyperlipidemia 272.4 and Hydrocele 603.9 [facility] [place] [id number] [place] [address] 02125- 1605 Oct, [facility] [place] [id number] [address] 4[address] September, [facility] [place] [id number] [place] [address] 14718- 3896 Aug, [facility] [place] [id number] [place] [address] 05270- 0092 Aug, [facility] [place] [id number] [address] 9153 Jul, [facility] [place] [facility] [address] [id number] [place] [address]- 3606 Jul, [facility] [place] [facility] [address] [id number] [place] [address]- 7479 Jul, [facility] [place] [facility] [address] [id number] [place] [address]- 8767 Jul, [facility] [place] [facility] [address] [id number] [place] [address]- 1335 Jul, [facility] [place] [facility] [address] [id number] [place] [address]- 9195 Jun, 2014 [facility] [place] [facility] [address] [id number] [place] [address]- 2211 Jun, 2014 [facility] [place] [facility] [address] [facility] [id number] [place] [address]- 5302 Jun, [facility] [place] [facility] [address] [facility] [id number] [place] [address]- 0397 Jun, 2014 [facility] [place] [facility] [address] [facility] [id number] [place] [address]- 1030 Jun, [facility] [place] [facility] [address] [facility] [id number] [place] [address]- 0571 Jun, [facility] [place] [facility] [address] [facility] [id number] [place] [address]- 7880 Jun, [facility] [place] [facility] [address] [facility] [id number] [place] [address]- 3721 Jun, [facility] [place] [facility] [address] [facility] [id number] [place] [address]- 7921 May, [facility] [place] [facility] [address] [id number] [place] [address]- 1064 May, [facility] [place] [facility] [address] [facility] [id number] [place] [address]- 1565 May, [facility] [place] [facility] [address] [facility] [id number] [place] [address]- 0022 May, [facility] [address] [id number] [place] [address]- 6560 May, [facility] [place] [facility] [address] [id number] [place] [address]- 2790 May, [facility] [place] [facility] [address] [facility] [id number] [place] [address]- 8178 May, [facility] [place] [facility] [address] [id number] [place] [address]- 9401 May, [facility] [place] [facility] [address] [id number] [place] [address]- 5760 May, [facility] [place] [facility] [address] [id number] [place] [address]- 8693 May, [facility] [address] [facility] [id number] [place] [address]- 2990 Apr, [facility] [place] [facility] [address] [id number] [place] [address]- 9807 Apr, [facility] [place] [facility] [address] [id number] [place] [address]- 4515 Apr, [facility] [place] [facility] [address] [facility] [id number] [place] [address]- 2249 Apr, [facility] [place] [facility] [address] [id number] [place] [address]- 9867 Apr, [facility] [place] [facility] [address] [id number] [place] [address]- 1316 Apr, [facility] [place] [facility] [address] [id number] [place] [address]- 0943 Apr, [facility] [place] [facility] [address] [facility] [id number] [place] [address]- 9542 Apr, [facility] [place] [facility] [address] [facility] [id number] [place] [address]- 8616 Mar, [facility] [place] [facility] [address] [id number] [place] [address]- 8202 Mar, [facility] [place] [facility] [address] [id number] [place] [address]- 6885 Mar, [facility] [place] [facility] [address] [id number] [place] [address]- 0654 Mar, [facility] [place] [facility] [address] [id number] [place] [address]- 0974 Mar, [facility] [place] [facility] [address] [id number] [place] [address]- 9655 Mar, [facility] [place] [facility] [address] [id number] [place] [address]- 7115 Mar, [facility] [place] [facility] [address] [id number] [place] [address]- 0765 Mar, [facility] [place] [facility] [address] [id number] [place] [address]- 4816 Mar, [facility] [place] [facility] [address] [id number] [place] [address]- 6638 Mar, [facility] [place] [facility] [address] [id number] [place] [address]- 5953 Feb, [facility] [place] [facility] [address] [id number] [place] [address]- 6964 Feb, [facility] [place] [facility] [address] [id number] [place] [address]- 8222 Feb, [facility] [place] [facility] [address] [id number] [place] [address]- 0418 Feb, [facility] [place] [facility] [address] [id number] [place] [address]- 7101 Feb, [facility] [place] [facility] [address] [id number] [place] [address]- 6098 Feb, [facility] [place] [facility] [address] [id number] [place] [address]- 2177 30 Jan, 2013 [facility] [place] [facility] [address] [id number] [place] [address]- 2657 30 Jan, 2013 [facility] [place] [facility] [address] [id number] [place] [address]- 6541 24 Jan, 2013 [facility] [place] [facility] [address] [id number] [place] [address]- 4481 24 Jan, 2013 [facility] [place] [facility] [address] [id number] [place] [address]- 5279 19 Jan, 2013 [facility] [place] [facility] [address] [id number] [place] [address]- 8854 19 Jan, 2013 [facility] [place] [facility] [address] [id number] [place] [address]- 8158 16 Jan, 2013 [facility] [place] [facility] [address] [id number] [place] [address]- 8633 16 Jan, 2013 [facility] [place] [facility] [address] [id number] [place] [address]- 1123 16 Jan, 2013 [facility] [place] [facility] [address] [id number] [place] [address]- 8797 16 Jan, 2013 [facility] [place] [facility] [address] [id number] [place] [address]- 0427 12 Jan, 2013 [facility] [place] [facility] [address] [id number] [place] [address]- 9072 Jan, 2013 [facility] [place] [facility] [address] [id number] [place] [address]- 2690 Dec, [facility] [place] [facility] [address] [id number] [place] [address]- 3854 Dec, [facility] [place] [facility] [address] [id number] [place] [address]- 0939 Dec, [facility] [place] [facility] [address] [id number] [place] [address]- 1108 Dec, [facility] [place] [facility] [address] [id number] [place] [address]- 1199 Dec, [facility] [place] [facility] [address] [id number] [place] 1940 Dec, [facility] [place] [facility] [address] [id number] [place] [address]- 8432 Nov, [facility] [place] [facility] [address] [id number] [place] 0861 Nov, [facility] [place] [facility] [address] [id number] [place] [address]- 4863 Nov, [facility] [place] [facility] [address] [id number] [place] [address]- 2828 Nov, [facility] [place] [facility] [address] [id number] [place] [address]- 9305 Nov, [facility] [place] [facility] [address] [id number] [place] [address]- 6050 Nov, [facility] [place] [facility] [address] [id number] [place] [address]- 6808 Nov, [facility] [place] [facility] [address] [id number] [place] [address]- 4338 Nov, [facility] [place] [facility] [address] [id number] [place] [address]- 2667 Oct, [facility] [place] [facility] [address] [id number] [place] [address]- 8967 Oct, [facility] [place] [facility] [address] [id number] [place] [address]- 2517 Oct, [facility] [place] [facility] [address] [id number] [place] [address]- 3335 Oct, [facility] [place] [facility] [address] [id number] [place] [address]- 1176 September, [facility] [place] [facility] [address] [id number] [place] [address]- 3453 September, [facility] [place] [facility] [address] [id number] [place] [address]- 6048 September, [facility] [place] [facility] [address] [id number] [place] [address]- 4439 September, [facility] [place] [facility] [address] [id number] [place] 8847 September, [facility] [place] [facility] [address] [id number] [place] [address]- 2724 September, [facility] [place] [facility] [address] [id number] [place] [address]- 1971 Aug, [facility] [place] [facility] [address] [id number] [place] [address]- 0587 Aug, [facility] [place] [facility] [address] [id number] [place] [address]- 2797 Aug, [facility] [place] [facility] [address] [id number] [place] [address]- 3788 Aug, [facility] [place] [facility] [address] [id number] [place] [address]- 0684 Aug, [facility] [place] [facility] [address] [id number] [place] [address]- 3792 Aug, [facility] [place] [facility] [address] [id number] [place] [address]- 7559 Aug, [facility] [place] [facility] [address] [id number] [place] [address]- 3156 Aug, [facility] [place] [facility] [address] [id number] [place] [address]- 1119 Jul, [facility] [place] [facility] [address] [id number] [place] [address]- 6705 Jul, [facility] [place] [facility] [address] [id number] [place] [address]- 7709 Jun, [facility] [place] [facility] [address] [id number] [place] [address]- 8242 Jun, [facility] [place] [facility] [address] [id number] [place] [address]- 0748 Jun, [facility] [place] [facility] [address] [id number] [place] [address]- 2076 Jun, [facility] [place] [facility] [address] [id number] [place] [address]- 1716 Jun, [facility] [place] [facility] [address] [id number] [place] [address]- 3104 May, [facility] [place] [facility] [address] [id number] [place] [address]- 3451 May, [facility] [place] [facility] [address] [id number] [place] [address]- 4443 May, [facility] [address] [facility] [id number] [place] [address]- 9143 May, [facility] [place] [facility] [address] [id number] [place] [address]- 2402 Apr, [facility] [place] [facility] [address] [id number] [place] [address]- 3296 Apr, [facility] [place] [facility] [address] [facility] [id number] [place] [address]- 3851 Mar, [facility] [place] [facility] [address] [id number] [place] [address]- 2225 Mar, [facility] [place] [facility] [address] [id number] [place] [address]- 0113 Feb, [facility] [place] [facility] [address] [id number] [place] [address]- 9591 Feb, [facility] [place] [facility] [address] [facility] [id number] [place] [address]- 2590 Feb, [facility] [place] [facility] [address] [facility] [id number] [place] [address]- 5862 Feb, [facility] [place] [facility] [address] [id number] [place] [address]- 7080 Feb, [facility] [place] [facility] [address] [id number] [place] [address]- 8676 Feb, [facility] [place] [facility] [address] [id number] [place] [address]- 5215 08 Feb, 2013 [facility] [place] [facility] [address] [id number] [place] [address]- 4356 Jan, [facility] [place] [facility] [address] [id number] [place] [address]- 0078 Jan, [facility] [place] [facility] [address] [id number] [place] [address]- 0138 Dec, [facility] [place] [facility] [address] [id number] [place] [address]- 2129 Dec, [facility] [place] [facility] [address] [id number] [place] [address]- 6384 Dec, [facility] [place] [facility] [address] [id number] [place] [address]- 5168 Dec, [facility] [place] [facility] [address] [id number] [place] [address]- 4900 Dec, [facility] [place] [facility] [address] [id number] [place] [address]- 1853 Nov, [facility] [place] [facility] [address] [id number] [place] [address]- 1172 Nov, [facility] [place] [facility] [address] [id number] [place] [address]- 1258 Nov, [facility] [place] [facility] [address] [id number] [place] [address]- 5086 Oct, [facility] [place] [facility] [address] [id number] [place] [address]- 3040 Oct, [facility] [place] [facility] [address] [id number] [place] [address]- 1805 Oct, [facility] [address] [id number] [place] [address]- 0930 September, [facility] [address] [id number] [place] [address]- 4006 Aug, [facility] [address] [id number] [place] [address]- 2546 Aug, [facility] [place] [facility] [address] [id number] [place] [address]- 2546 Aug, [facility] [address] [id number] [place] [address]- 2102 Jul, [facility] [address] [id number] [place] [address]- 8726 Jul, [facility] [address] [id number] [place] [address]- 7576 Jul, [facility] [place] [facility] [address] [id number] [place] [address]- 1410 Jul, [facility] [address] [id number] [place] [address]- 2228 Jul, [facility] [place] [facility] [address] [id number] [place] [address]- 7796 Jun, [facility] [address] [id number] [place] [address]- 2546 Jun, [facility] [place] [facility] [address] [id number] [place] [address]- 2546 May, [facility] [place] [facility] [address] [id number] [place] [address]- 2546 May, [facility] [place] [facility] [address] [id number] [place] [address]- 2546 Apr, [facility] [place] [facility] [address] [id number] [place] [address]- 2546 Apr, [facility] [place] [facility] [address] [id number] [place] [address]- 7576 Mar, [facility] [address] [id number] [place] [address]- 9166 Mar, [facility] [place] [facility] [address] [id number] [place] [address]- 2546 Mar, [facility] [address] [id number] [place] [address]- 2546 Mar, [facility] [address] [id number] [id number] Feb, [facility] [address] [id number] [place] [address]- 4066 Feb, [facility] [place] [facility] [address] [id number] [place] [address]- 3816 Feb, [facility] [address] [id number] [place] [address]- 1916 Feb, [facility] [place] [facility] [address] [id number] [place] [address]- 6316 Feb, [facility] [place] [facility] [address] [id number] [place] [address]- 2496 Feb, [facility] [place] [facility] [address] [id number] [place] [address] 2546 Feb, [facility] [place] [facility] [address] [id number] [place] [address]- 0616 Jan, [facility] [place] [facility] [address] [id number] [place] [address]- 2546 Jan, [facility] [place] [facility] [address] [id number] [place] [address] 2546 Dec, [facility] [place] [facility] [address] [id number] [place] [address]- 2546 Dec, [facility] [place] [facility] [address] [id number] [place] [address] 2546 Nov, [facility] [place] [facility] [address] [id number] [place] [address]- 3561 Oct, [facility] [address] [id number] [place] [address]- 6072 September, [facility] [place] [facility] [address] [id number] [place] [address]- 8496 September, [facility] [address] [id number] [place] [address]- 0253 September, [facility] [address] [id number] [place] [address]- 6783 Aug, [facility] [place] [facility] [address] [id number] [place] [address]- 7859 May, [facility] [address] [id number] [place] [address]- 9555 May, [facility] [address] [id number] [place] [address]- 4235 Apr, [facility] [address] [id number] [place] [address]- 8444 Apr, [facility] [address] [id number] [place] [address]- 7900 Apr, [facility] [place] [facility] [address] [id number] [place] [address]- 1898 Apr, [facility] [place] [facility] [address] [id number] [place] [address] Apr, [facility] [place] [facility] [address] [id number] [place] [address] Mar, [facility] [place] [facility] [address] [id number] [place] [address] Feb, [facility] [place] [facility] [address] [id number] [place] [address] Feb, [facility] [place] [facility] [address] [id number] [place] [address] September, [facility] [place] [address] [facility] [id number] [place] [address] Mar, [facility] [place] [address] [facility] [id number] [place] [address] Feb, [facility] [place] [address] [facility] [id number] [place] [address] Feb, [facility] [place] [address] [facility] [id number] [place] [address] Feb, IMMUNIZATIONS No Known Immunizations SOCIAL HISTORY Never Assessed REASON FOR VISIT f/u--Marielena Ferreira MA PLAN OF CARE Activity Details Follow Up 6 Weeks Reason: VITAL SIGNS Height 65 in 2017-02-21 Weight 190.4 lbs 2017-02-21 Heart Rate 88 bpm 2017-02-21 Respiratory Rate 22 2017-02-21 BMI 31.68 kg/m2 2017-02-21 Blood pressure systolic 114 mmHg 2017-02-21 Blood pressure diastolic 82 mmHg 2017-02-21 MEDICATIONS Medication Instructions Dosage Frequency Start Date End Date Duration Status Aspirin 81 MG Orally Once a day 1 tablet 24h Active Aricept 5 mg Orally Once a day 1 tablet at bedtime 24h 30 days Active Proscar 5 MG TAKE 1 TABLET BY MOUTH ONCE DAILY. 30 Active Eliquis 5 mg Orally 2 times a day 1 tablet 12h Active Trazodone HCl 150 MG Orally Once a day 1 tablet at bedtime 24h 30 days Active Flomax 0.4 MG Orally Once a day 1 capsule 30 minutes after the same meal each day 24h 30 Active Namenda 10 MG Orally Twice a day 1 tablet 12h Active Cymbalta 60 MG Orally Once a day 1 capsule 24h 30 Active Oxybutynin Chloride 5 MG TAKE ONE TABLET BY MOUTH TWICE DAILY 30 Active Amlodipine Besylate 10 MG TAKE ONE TABLET BY MOUTH ONCE DAILY Active Abilify 5 mg Orally Once a day 1 tablet 24h 30 day(s) Active RESULTS No Results PROCEDURES Procedure Date Ordered Result Body Site [facility] VISIT ESTABLISHED PATIENT Feb 21, 2017 INSTRUCTIONS MEDICATIONS ADMINISTERED No Known Medications [...] foot fracture Hospitalization History [facility] [place] Back Pain 03/24/2017
--- OUTSIDE RECORDS SUMMARY | 2018-04-10 18:07 | XMS REPORT ---
Author Author KENNETH MCQUEEN [facility] Address [address] [place] [address] Care Team Providers Care Faucets Assembler Name Role Phone MCQUEENDANIEAN Unavailable PROBLEMS Type Condition ICD9-CM Code FBY81-VN Code Onset Dates Condition Status SNOMED Code Problem Color blindness H53.50 Active 072065835 Problem Presbyopia of both eyes H52.4 Active 81810530 Problem Nuclear senile cataract of both eyes H25.13 Active 495293969 Problem Astigmatism of both eyes, unspecified type H52.203 Active 85794845 Problem Overactive bladder N32.81 Active 176495786 Problem Essential hypertension I10 Active 08724553 Problem Other chronic pain G89.29 Active 72701056 Problem Hypermetropia of both eyes H52.03 Active 52100159 Problem Alzheimer's disease, unspecified G30.9 Active 443079334 Problem Mild episode of recurrent major depressive disorder F33.0 Active 553260423 Problem 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 Active 506240797 Problem Major depressive disorder, single episode, mild F32.0 Active 92788571 Problem Chronic fatigue R53.82 Active 43794296 Problem Hydrocele, unspecified hydrocele type N43.3 Active 97947352 Problem Other acute pulmonary embolism without acute cor pulmonale I26.99 Active 234698665 Problem 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 Active 904473940 Problem Asymptomatic microscopic hematuria R31.21 Active 814628891 Problem Gait instability R26.81 Active 41592294 Problem PVD (peripheral vascular disease) I73.9 Active 408677462 Problem At high risk for falls Z91.81 Active [id number] Problem 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 Active 65172145 Problem Benign non-nodular prostatic hyperplasia with lower urinary tract symptoms N40.1 Active 174511910 Problem Alzheimers disease with late onset G30.1 Active 272006022 Problem Renal cyst, left Q61.00 Active 45191668 Problem Mixed hyperlipidemia E78.2 Active 848900014 Problem Anxiety F41.9 Active 53081162 Problem Transient cerebral ischemia, unspecified transient cerebral ischemia type G45.9 Active 496618088 Problem Primary insomnia F51.01 Active 762962306 ALLERGIES No Information ENCOUNTERS Encounter Location Date Diagnosis [place] [address] [address] Dec, [place] [address] [address] September, Alzheimers disease with late onset G30.1 and Mild episode of recurrent major depressive disorder F33.0 [place] [address] [address]- [address] September, PVD (peripheral vascular disease) I73.9 ; Major depressive disorder, single episode, mild F32.0 ; Chronic fatigue R53.82 ; Weight gain R63.5 and Arthralgia, unspecified joint M25.50 [place] [address] [address]- [address] Aug, Acute low back pain, unspecified back pain laterality, with sciatica presence unspecified M54.5 [place] [address] [address]- [address] Aug, Acute low back pain, unspecified back pain laterality, with sciatica presence unspecified M54.5 [place] [address] [address]- 6843 Aug, Pain R52 [place] [address] [address]- 28[address] Jul, [place] [address] [address]- 2606 Jun, [place] [address] [address]- 8545 07 Jun, 2017 Medicare annual wellness visit, initial Z00.00 ; Mixed hyperlipidemia E78.2 ; Essential hypertension I10 ; Anxiety F41.9 ; Alzheimers disease with late onset G30.1 ; 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 ; Overactive bladder N32.81 ; Primary insomnia F51.01 ; At high risk for falls Z91.81 and Encounter for immunization Z23 [facility] [address] [address] May, [facility] [address] [address]- [address] May, Essential hypertension I10 and Transient cerebral ischemia, unspecified transient cerebral ischemia type G45.9 [facility] [address] [id number] May, Dental examination Z01.20 and Dental caries K02.9 [place] [address] [address]- [address] May, [place] [address] [address]- 56[address] May, [place] [address] [address]- 4[address] May, Alzheimers disease with late onset G30.1 [place] [address] 58[address]- [address] Apr, [place] [address] [address]- 8431 Apr, Alzheimers disease with late onset G30.1 and Mild episode of recurrent major depressive disorder F33.0 [place] [address] 68[address]- 35[address] Mar, Mild episode of recurrent major depressive disorder F33.0 [place] [address] 8[address]- 0057 Mar, Mixed hyperlipidemia E78.2 ; Essential hypertension I10 ; Asymptomatic microscopic hematuria R31.21 and Renal cyst, left Q61.00 [place] [address] 85[address]- 3380 Mar, [facility] [address] [address] 8[address] Feb, Encounter for immunization Z23 [facility] [address] [address] 4525 Feb, [facility] [address] [place] [id number] [place] [address] 07483- 2386 Feb, [facility] [id number] [place] [address] 31958 -9588 Feb, ANUG (acute necrotizing ulcerative gingivitis) A69.1 [facility] [address] [place] [id number] [place] [address] 28309- 6248 Feb, [facility] [address] [place] [id number] [place] [address] 66567- 3757 Feb, Mild episode of recurrent major depressive disorder F33.0 [facility] [address] [place] [id number] [place] [address] 23840- 6246 Feb, Alzheimers disease with late onset G30.1 and Mild episode of recurrent major depressive disorder F33.0 [facility] [id number] [place] [address] 34576- 0170 Jan, Alzheimers disease with late onset G30.1 [facility] [address] [address]- 7349 Jan, Gait instability R26.81 [facility] [address] [id number] [place] [address] Jan [facility] [address] [id number] [place] [address] Dec [facility] [address] [address]- 8240 Dec, [facility] [address] [address]- 7654 Dec, [facility] [address] [place] [id number] [address] 6[address] Dec, Essential hypertension I10 ; Transient cerebral ischemia, unspecified transient cerebral ischemia type G45.9 and Anxiety F41.9 [facility] [address] [place] [id number] [address] [address] Dec, Gait instability R26.81 [facility] [address] [place] [id number] [place] [address] 00038- 5335 Dec, [facility] [address] [place] [id number] [place] [address] 64678- 2000 Nov, Alzheimers disease with late onset G30.1 and Mild episode of recurrent major depressive disorder F33.0 [facility] [address] [place] [id number] [place] [address] 37007- 2757 Nov, [facility] [address] [place] [id number] [place] [address] 75245- 9310 Nov, Gait instability R26.81 [facility] [address] [place] [id number] [place] [address] 81545- 4654 Nov, Anxiety F41.9 [facility] [address] [place] [id number] [place] [address] 10606- 3871 Nov, [facility] [address] [place] [id number] [place] [address] 53505- 5434 Nov, [facility] [address] [place] [id number] [place] [address] 29297- 6813 Oct, Gait instability R26.81 [facility] [address] [place] [address] 18943- 3995 Oct, Anxiety F41.9 [facility] [address] [place] [id number] [place] [address] 77965- 2770 Oct, Gait instability R26.81 [facility] [address] [address]- 6243 Oct, Gait instability R26.81 [facility] [address] [address]- 2115 Oct, [facility] [address] [place] [id number] [address]- 5924 Oct, Anxiety F41.9 ; Chronic 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 use Z79.899 ; Encounter for immunization Z23 and Transient cerebral ischemia, unspecified transient cerebral ischemia type G45.9 [facility] [address] [place] [id number] [address]- 6[address] September, [facility] [address] [place] [id number] [address]- 8965 September, Gait instability R26.81 [facility] [address] [place] [id number] [address]- 6065 September, [facility] [address] [address]- 8955 September, [facility] [address] [address]- 7969 September, [facility] [address] [address]- 8523 September, Alzheimers disease with late onset G30.1 and Mild episode of recurrent major depressive disorder F33.0 [facility] [address] [address]- 7770 September, [facility] [address] [address]- 7223 September, [facility] [address] [place] [id number] [address]- 3850 September, [facility] [address] [address]- 9294 September, Mild episode of recurrent major depressive disorder F33.0 [facility] [address] [place] [id number] [address]- 2563 Aug, Mild episode of recurrent major depressive disorder F33.0 ; Alzheimers disease with late onset G30.1 ; Other acute pulmonary embolism without acute cor pulmonale I26.99 and Cough R05 [facility] [address] [place] [id number] [place] [address] 64085- 7809 Aug, [facility] [address] [place] [id number] [place] [address] 48430- 7093 Aug, Gait instability R26.81 [facility] [address] [place] [id number] [place] [address] 15382- 3221 Aug, Alzheimers disease with late onset G30.1 and Mild episode of recurrent major depressive disorder F33.0 [facility] [address] [place] [id number] [place] [address] 12149- 6113 Aug, [place] [address] [place] [id number] [place] [address] 46336- 2754 Aug, 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 [facility] [address] [place] [id number] [place] [address] 29795- 7179 Jul, Alzheimers disease with late onset G30.1 [place] [address] [place] [id number] [place] [address] 91184- 2094 Jul, [place] [address] [place] [id number] [place] [address] 58971- 0855 Jul, 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 [facility] [address] [place] [id number] [place] [address] 67731- 4696 Jul, Anxiety F41.9 ; Alzheimers disease with late onset G30.1 and Transient cerebral ischemia, unspecified transient cerebral ischemia type G45.9 [facility] [address] [place] [id number] [place] [address] 54487- 0606 Jun, Essential hypertension I10 [facility] [address] [place] [id number] [place] [address] 22155- 7535 Jun, [facility] [address] [place] [id number] [place] [address] 25424- 9955 Jun, [facility] [address] [place] [id number] [place] [address] 44937- 9677 Jun, [facility] [address] [place] [id number] [place] [address] 99987- 0503 Jun, Essential hypertension I10 ; Benign non-nodular prostatic hyperplasia with lower urinary tract symptoms N40.1 ; Anxiety F41.9 ; Pain in right knee M25.561 ; Pain in left knee M25.562 and Other chronic pain G89.29 [facility] [address] [place] [id number] [place] [address] 24100- 3270 May, [facility] [address] [place] [id number] [place] [address] 55323- 5858 May, [facility] [address] [place] [id number] [place] [address] 75971- 0103 May, [facility] [address] [place] [id number] [place] [address] 58770- 6146 Apr, [facility] [address] [place] [id number] [place] [address] 07173- 8865 Mar, [facility] [address] [place] [id number] [place] [address] 40250- 1542 Mar, Mixed hyperlipidemia E78.2 and Essential hypertension I10 [facility] [address] [place] [id number] [place] [address] 62089- 5608 Feb, [facility] [address] [place] [id number] [place] [address] 97724- 8918 Feb, Ingrown nail L60.0 and Onychomycosis B35.1 [facility] [address] [place] [id number] [place] [address] 80109- 6096 Feb, Paronychia, left L03.012 [facility] [address] [place] [id number] [place] [address] 73835- 8316 Jan, [facility] [address] [place] [id number] [place] [address] 12659- 9788 07 Jan, 2016 Cramps of right lower extremity R25.2 and Mixed hyperlipidemia E78.2 [facility] [address] [place] [id number] [place] [address] 10415- 1809 Jan, Cramps of right lower extremity R25.2 ; Essential hypertension I10 ; Mixed hyperlipidemia E78.2 ; Chronic 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 use Z79.899 and Claudication I73.9 [facility] [address] [place] [id number] [place] [address] 17806- 6723 Jan, Right leg pain M79.604 [facility] [address] [place] [id number] [place] [address] 68463- 7100 Dec, [facility] [address] [place] [id number] [place] [address] 66779- 5629 Nov, [facility] [address] [place] [id number] [place] [address] 00736- 0597 Nov, [facility] [address] [place] [id number] [place] [address] 84315- 0865 Nov, [facility] [address] [place] [id number] [place] [address] 97405- 0547 Nov, Dermatofibroma D23.9 [facility] [address] [place] [id number] [place] [address] 54981- 4781 Nov, [facility] [address] [place] [id number] [place] [address] 38538- 6021 Oct, [facility] [address] [place] [id number] [place] [address] 48835- 4307 Oct, [facility] [address] [place] [id number] [place] [address] 27095- 7646 September, Benign non-nodular prostatic hyperplasia with lower urinary tract symptoms N40.1 ; Essential hypertension I10 ; Overactive bladder N32.81 and Fatigue, unspecified type R53.83 [facility] [address] [place] [id number] [address]- 3494 September, [facility] [address] [place] [id number] [place] [address] 746901- 9613 September, [facility] [address] [place] [id number] 4252 Aug, [facility] [address] [place] [id number] [place] [address] 403941- 7156 Jul, [facility] [address] [place] [id number] [place] [address] 086524- 0018 Jul, Pelvic pain R10.2 ; Jock itch B35.6 ; Essential hypertension I10 and Hydrocele, unspecified hydrocele type N43.3 [facility] [address] [place] [id number] [place] [address] 52948- 7203 Jun, [facility] [address] [place] [id number] [place] [address] 122999- 1430 Jun, [facility] [address] [place] [id number] [place] [address] 02869- 4429 Jun, Benign non-nodular prostatic hyperplasia with lower urinary tract symptoms N40.1 [facility] [address] [address]- 8507 Jun, Benign non-nodular prostatic hyperplasia with lower urinary tract symptoms N40.1 [facility] [address] [address]- 4553 Jun, [facility] [address] 5144 May, [facility] [address] [place] [id number] [place] [address] 285730- 3423 Apr, [facility] [address] 7482 Apr, [facility] [address] 5752 Apr, Other acute pulmonary embolism without acute cor pulmonale I26.99 ; Anxiety F41.9 ; 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 and 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 [facility] [address] [place] [address] 04452- 1393 Apr, [facility] [address] [place] [id number] [place] [address] 80814- 3195 Apr, [facility] [address] [place] [id number] [place] [address] 07221- 0158 Mar, [facility] [address] [place] [id number] [place] [address] 51989- 0677 Mar, [facility] [address] [place] [id number] [place] [address] 33504- 5078 Feb, Cough R05 [facility] [address] [place] [id number] [place] [address] 81813- 2451 Feb, [facility] [address] [place] [id number] [place] [address] 32661- 1381 Feb, Encounter for immunization Z23 [facility] [address] [place] [id number] [place] [address] 37552- 1558 Feb, Other and unspecified hyperlipidemia 272.4 [facility] [address] [place] [id number] [place] [address] 46424- 0653 Jan, [facility] [address] [place] [id number] [place] [address] 62463- 7211 Jan, TIA (transient ischemic attack) 435.9 [facility] [address] [place] [id number] [place] [address] 81395- 9653 Dec, [facility] [address] [place] [id number] [place] [address] 94955- 7579 Dec, [facility] [address] [place] [id number] [place] [address] 63514- 9314 Dec, [facility] [address] [place] [id number] [place] [address] [place] [address]- 7832 Nov, [facility] [address] [address]- 3794 Oct, Chronic cough 786.2 [facility] [address] [address]- 0986 Oct, [facility] [address] [place] [id number] [place] [address] 52362- 2538 Oct, [facility] [address] [place] [id number] [place] [address] 28996- 6620 Oct, [facility] [address] [place] [id number] [place] [address] 10850- 4844 Oct, [facility] [address] [place] [id number] [place] [address] 48109- 7375 Oct, Chronic cough 786.2 [facility] [address] [place] [id number] [place] [address] 31258- 1264 Oct, Cough 786.2 ; Hypertension 401.9 ; BPH (benign prostatic hyperplasia) 600.00 ; Other and unspecified hyperlipidemia 272.4 and Hydrocele 603.9 [facility] [address] [address]- 9420 Oct, [facility] [address] [address]- 3219 September, [facility] [address] [address]- 4930 Aug, [facility] [address] [address]- 7695 Aug, [facility] [address] [id number] [place] [address] 58541- 1869 Jul, [facility] [address] [address]- 6089 Jul, [facility] [id number] [place] [address] 39217- 2400 Jul, [facility] [place] [facility] [address] [id number] [place] [address]- 7157 Jul, [facility] [place] [facility] [address] [id number] [place] [address]- 3367 Jul, [facility] [place] [facility] [address] [facility] [id number] [place] [address]- 4121 Jun, 2014 [facility] [place] [facility] [address] [id number] [place] [address]- 5344 Jun, 2014 [facility] [place] [facility] [address] [id number] [place] [address]- 5552 Jun, 2014 [facility] [place] [facility] [address] [facility] [id number] [place] [address]- 3400 Jun, 2014 [facility] [place] [facility] [address] [facility] [id number] [place] [address]- 3387 Jun, 2014 [facility] [place] [facility] [address] [facility] [id number] [place] [address]- 2403 Jun, [facility] [place] [facility] [address] [facility] [id number] [place] [address]- 5713 Jun, [facility] [place] [facility] [address] [facility] [id number] [place] [address]- 8199 Jun, [facility] [place] [facility] [address] [facility] [id number] [place] [address]- 6580 May, [facility] [place] [facility] [address] [facility] [id number] [address]- 8695 May, [facility] [place] [facility] [address] [id number] [place] [address]- 1407 May, [facility] [place] [facility] [address] [facility] [id number] [place] [address] May, [facility] [place] [facility] [address] [facility] [id number] [place] [address] May, [facility] [place] [facility] [address] [id number] [place] [address] May, [facility] [place] [facility] [address] [id number] [place] [address] May, [facility] [place] [facility] [address] [id number] [place] [address] May, [facility] [place] [facility] [address] [id number] [place] [address] May, [facility] [place] [facility] [address] [id number] [place] [address] May, [facility] [place] [facility] [address] [id number] [place] [address] Apr, [facility] [place] [facility] [address] [id number] [place] [address] Apr, [facility] [place] [facility] [address] [id number] [place] [address] Apr, [facility] [place] [facility] [address] [id number] [place] [address] Apr, [facility] [place] [facility] [address] [id number] [place] [address] Apr, [facility] [place] [facility] [address] [id number] [place] [address] Apr, [facility] [place] [facility] [address] [id number] [place] [address] Apr, [facility] [place] [facility] [address] [id number] [place] [address] Apr, [facility] [place] [facility] [address] [id number] [place] [address] Mar, [facility] [place] [facility] [address] [address] [id number] [place] [address] Mar, [facility] [place] [facility] [address] [id number] [place] [address] Mar, [facility] [place] [facility] [address] [id number] [place] [address] Mar, [facility] [place] [facility] [address] [id number] [place] [address] 16[address] Mar, [facility] [place] [facility] [address] [id number] [place] [address] 73[address] Mar, [facility] [place] [facility] [address] [id number] [place] [address] 37[address] Mar, [facility] [place] [facility] [address] [id number] [place] [address]00 Mar, [facility] [place] [facility] [address] [id number] [place] [address] Mar, [facility] [place] [facility] [address] [id number] [place] [address] 82[address] Mar, [facility] [place] [facility] [address] [id number] [place] [address] Feb, [facility] [place] [facility] [address] [id number] [place] [address]759 Feb, [facility] [place] [facility] [address] [id number] [place] [address] Feb, [facility] [place] [facility] [address] [id number] [place] [address] 2016 Feb, [facility] [place] [facility] [address] [id number] [place] [address] Feb, [facility] [place] [facility] [address] [id number] [place] [address] Feb, [facility] [place] [facility] [address] [id number] [address] 30 Jan, 2014 [facility] [place] [facility] [address] [id number] [place] [address] 4311 30 Jan, 2014 [facility] [place] [facility] [address] [id number] [place] [address]300 24 Jan, 2013 [facility] [place] [facility] [address] [id number] [place] [address] 2546 24 Jan, 2013 [facility] [place] [facility] [address] [id number] [place] [address] 2546 19 Jan, 2013 [facility] [place] [facility] [address] [id number] [place] [address] 8706 19 Jan, 2013 [facility] [place] [facility] [address] [id number] [place] [address] 2545 16 Jan, 2013 [facility] [place] [facility] [address] [id number] [place] [address]- [address]113 16 Jan, 2013 [facility] [place] [facility] [address] [id number] [place] [address]- 1541 16 Jan, 2013 [facility] [place] [facility] [address] [id number] [place] [address]- 8747 16 Jan, 2013 [facility] [place] [facility] [address] [id number] [place] [address]- 2614 12 Jan, 2013 [facility] [place] [facility] [address] [id number] [place] [address] 8695 Jan, 2013 [facility] [place] [facility] [address] [id number] [place] [address] 0666 Dec, [facility] [place] [facility] [address] [id number] [place] [address] 254 Dec, [facility] [place] [facility] [address] [id number] [place] [address] 6614 Dec, [facility] [place] [facility] [address] [id number] [place] [address]- [address] Dec, [facility] [place] [facility] [address] [id number] [place] [address]- 8737 Dec, [facility] [place] [facility] [address] [id number] [place] [address] 7214 Dec, [facility] [place] [facility] [address] [id number] [place] [address] 4[address] Nov, [facility] [place] [facility] [address] [id number] [place] [address]- [address]99 Nov, [facility] [place] [facility] [address] [id number] [place] [address] 8300 Nov, [facility] [place] [facility] [address] [id number] [place] [address] 5051 Nov, [facility] [place] [facility] [address] [id number] [place] [address]- 0226 Nov, [facility] [place] [facility] [address] [id number] [place] [address]- 3694 Nov, [facility] [place] [facility] [address] [id number] [place] [address] 5369 Nov, [facility] [place] [facility] [address] [id number] [place] [address] 2553 Nov, [facility] [place] [facility] [address] [id number] [place] [address]- 0885 Oct, [facility] [place] [facility] [address] [id number] [place] [address] 6008 Oct, [facility] [place] [facility] [address] [id number] [place] [address]- 8429 Oct, [facility] [place] [facility] [address] [id number] [place] [address] 7419 Oct, [facility] [place] [facility] [address] [id number] [place] [address]- 7222 September, [facility] [place] [facility] [address] [id number] [place] [address]- 0634 September, [facility] [place] [facility] [address] [id number] [place] [address]- 7356 September, [facility] [place] [facility] [address] [id number] [place] [address] September, [facility] [address] [id number] [place] [address] 9222 September, [facility] [place] [facility] [address] [id number] [place] [address]- 2524 September, [facility] [place] [facility] [address] [id number] [place] [address] 4623 Aug, [facility] [place] [facility] [address] [id number] [place] [address] 2913 Aug, [facility] [place] [facility] [address] [id number] [place] [address]- 6349 Aug, [facility] [place] [facility] [address] [id number] [place] [address] 3769 Aug, [facility] [place] [facility] [address] [facility] [id number] [place] [address]- 8158 Aug, [facility] [place] [facility] [address] [id number] [place] [address]- 6481 Aug, [facility] [place] [facility] [address] [id number] [place] [address]- 2885 Aug, [facility] [place] [facility] [address] [facility] [id number] [place] [address]- 7123 Aug, [facility] [place] [facility] [address] [id number] [place] [address] 6368 Jul, [facility] [place] [facility] [address] [id number] [place] [address] 3501 Jul, [facility] [place] [facility] [address] [id number] [place] [address]- 5255 Jun, [facility] [place] [facility] [address] [id number] [place] [address]- 2909 Jun, [facility] [place] [facility] [address] [facility] [id number] [place] [address]- 0588 Jun, [facility] [place] [facility] [address] [id number] [place] [address]- 6521 Jun, [facility] [place] [facility] [address] [id number] [place] [address] 1908 Jun, [facility] [place] [facility] [address] [id number] [place] [address] 4255 May, [facility] [place] [facility] [address] [id number] [place] [address]- 8979 May, [facility] [place] [facility] [address] [id number] [place] [address]- 7064 May, [facility] [place] [facility] [address] [id number] [place] [address]- 7642 May, [facility] [place] [facility] [address] [id number] [place] [address]- 7730 Apr, [facility] [place] [facility] [address] [id number] [place] [address] 1962 Apr, [facility] [place] [facility] [address] [id number] [place] [address]- 2901 Mar, [facility] [place] [facility] [address] [id number] [place] [address]- 5415 Mar, [facility] [place] [facility] [address] [id number] [place] [address]- 6471 Feb, [facility] [place] [facility] [address] [id number] [place] [address]- 7212 Feb, [facility] [place] [facility] [address] [id number] [place] [address]- 8493 Feb, [facility] [place] [facility] [address] [id number] [place] [address]- 0497 Feb, [facility] [place] [facility] [address] [id number] [place] [address]- 5954 Feb, [facility] [place] [facility] [address] [id number] [place] [address]- [address] Feb, [facility] [place] [facility] [address] [id number] [place] [address]- 5277 Feb, [facility] [place] [facility] [address] [id number] [place] [address]- 4801 Jan, [facility] [place] [facility] [address] [id number] [place] [address]- 0851 Jan, [facility] [place] [facility] [address] [id number] [place] [address]- 7749 Dec, [facility] [place] [facility] [address] [id number] [place] [address]- 6648 Dec, [facility] [place] [facility] [address] [id number] [place] [address]- 1773 Dec, [facility] [place] [facility] [address] [id number] [place] [address]- 8553 Dec, [facility] [place] [facility] [address] [id number] [place] [address]- 3155 Dec, [facility] [place] [facility] [address] [id number] [place] [address]- 2071 Nov, [facility] [place] [facility] [address] [id number] [place] [address]- 9968 Nov, [facility] [place] [facility] [address] [id number] [place] [address]- 4911 Nov, [facility] [place] [facility] [address] [id number] [place] [address]- 9352 Oct, [facility] [place] [facility] [address] [id number] [place] [address]- 6412 Oct, [facility] [place] [facility] [address] [id number] [place] [address]- 3916 Oct, [facility] [place] [facility] [address] [id number] [place] [address]- 7060 September, [facility] [place] [facility] [address] [id number] [place] [address] 2546 Aug, [facility] [address] [id number] [place] [address]- 7826 Aug, [facility] [address] [id number] [place] [address] 2546 Aug, [facility] [address] [id number] [place] [address]- 6219 Jul, [facility] [address] [id number] [place] [address]- 8215 Jul, [facility] [address] [id number] [place] [address]- 7025 Jul, [facility] [address] [id number] [place] [address]- 1906 Jul, [facility] [address] [id number] [place] [address]- 3486 Jul, [facility] [address] [id number] [place] [address]- 7998 Jun, [facility] [address] [id number] [place] [address]- 6360 Jun, [facility] [address] [id number] [place] [address]- 4114 May, [facility] [address] [id number] [place] [address]- 2546 May, [facility] [address] [id number] [place] [address]- 1874 Apr, [facility] [address] [id number] [place] [address]- 3176 Apr, [facility] [address] [id number] [place] [address] 2546 Mar, [facility] [address] [id number] [place] [address]- 3483 Mar, [facility] [place] [facility] [address] [id number] [place] [address]- 1156 Mar, [facility] [address] [id number] [place] [address]- 9426 Mar, [facility] [address] [id number] [place] [id number] Feb, [facility] [place] [facility] [address] [id number] [place] [address]- 4546 Feb, [facility] [place] [facility] [address] [id number] [place] [address]- 4362 Feb, [facility] [place] [facility] [address] [id number] [place] [address]- 4476 Feb, [facility] [place] [facility] [address] [id number] [place] [address]- 2782 Feb, [facility] [place] [facility] [address] [id number] [place] [address]- 4736 Feb, [facility] [place] [facility] [address] [id number] [place] [address]- 6475 Feb, [facility] [place] [facility] [address] [id number] [place] [address]- 8686 Jan, [facility] [place] [facility] [address] [id number] [place] [address]- 2546 Jan, [facility] [place] [facility] [address] [id number] [place] [address]- 2546 Dec, [facility] [place] [facility] [address] [id number] [place] [address]- 2546 Dec, [facility] [place] [facility] [address] [id number] [place] [address]- 2546 Nov, [facility] [place] [facility] [address] [id number] [place] [address]- 2546 Oct, [facility] [place] [facility] [address] [id number] [place] [address]- 9604 September, [facility] [address] [id number] [place] [address]- 4822 September, [facility] [place] [facility] [address] [id number] [place] [address]- 4096 September, [facility] [place] [facility] [address] [id number] [place] [address]- 3979 Aug, [facility] [place] [facility] [address] [id number] [place] [address]- 9640 May, [facility] [place] [facility] [address] [id number] [place] [address]- 6225 May, [facility] [place] [facility] [address] [id number] [place] [address] Apr, [facility] [place] [facility] [address] [id number] [place] [address] Apr, [facility] [place] [facility] [address] [id number] [place] [address]- 6912 Apr, [facility] [place] [facility] [address] [id number] [place] [address]- 5750 Apr, [facility] [place] [facility] [address] [id number] [place] [address]- 0110 Apr, [facility] [place] [facility] [address] [id number] [place] [address]- 0664 Mar, [facility] [place] [facility] [address] [id number] [place] [address]- 2295 Feb, [facility] [place] [facility] [address] [id number] [place] [address] Feb, [facility] [place] [facility] [address] [id number] [place] [address]- 5815 September, [facility] [place] [facility] [address] [id number] [place] [address]- 5744 Mar, [facility] [place] [facility] [address] [facility] [id number] [place] [address]- 1073 14 Feb, 2010 [facility] [address] [facility] [id number] [place] [address]- 3438 11 Feb, 2010 [facility] [address] [facility] [id number] [place] [address]- 3804 11 Feb, 2010 IMMUNIZATIONS No Known Immunizations SOCIAL HISTORY Never Assessed REASON FOR VISIT PT follow-up PLAN OF CARE Activity Details Follow Up 3 Weeks Reason:F/U PT VITAL SIGNS MEDICATIONS Unknown Medications RESULTS No Results PROCEDURES Procedure Date Ordered Result Body Site THERAPEUTIC EXERCISES Feb 05, 2017 INSTRUCTIONS MEDICATIONS ADMINISTERED No Known Medications [...] foot fracture Hospitalization History [facility] [place]- Back Pain 03/24/2017
--- OUTSIDE RECORDS SUMMARY | 2018-04-10 18:08 | XMS REPORT ---
Author Author JUNIOR MEJIA Organization [facility] Address [address] [place] [address] Care Team Providers Care Signal Engineer Name Role Phone JUNIOR MEJIA Unavailable PROBLEMS Type Condition ICD9-CM Code AQB87-NV Code Onset Dates Condition Status SNOMED Code Problem Color blindness H53.50 Active 603474415 Problem Presbyopia of both eyes H52.4 Active 36960591 Problem Nuclear senile cataract of both eyes H25.13 Active 484295632 Problem Astigmatism of both eyes, unspecified type H52.203 Active 78896959 Problem Overactive bladder N32.81 Active 867446854 Problem Essential hypertension I10 Active 89655103 Problem Other chronic pain G89.29 Active 56161888 Problem Hypermetropia of both eyes H52.03 Active 87939588 Problem Alzheimer's disease, unspecified G30.9 Active 264162675 Problem Mild episode of recurrent major depressive disorder F33.0 Active 058045854 Problem 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 Active 081303052 Problem Major depressive disorder, single episode, mild F32.0 Active 00087830 Problem Chronic fatigue R53.82 Active 49244513 Problem Hydrocele, unspecified hydrocele type N43.3 Active 49144201 Problem Other acute pulmonary embolism without acute cor pulmonale I26.99 Active 754562071 Problem 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 Active 176895831 Problem Asymptomatic microscopic hematuria R31.21 Active 868531713 Problem Gait instability R26.81 Active 54055314 Problem PVD (peripheral vascular disease) I73.9 Active 224215019 Problem At high risk for falls Z91.81 Active [id number] Problem 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 Active 87884898 Problem Benign non-nodular prostatic hyperplasia with lower urinary tract symptoms N40.1 Active 726602036 Problem Alzheimers disease with late onset G30.1 Active 093873412 Problem Renal cyst, left Q61.00 Active 05514675 Problem Mixed hyperlipidemia E78.2 Active 277994958 Problem Anxiety F41.9 Active 67765077 Problem Transient cerebral ischemia, unspecified transient cerebral ischemia type G45.9 Active 991821061 Problem Primary insomnia F51.01 Active 019391235 ALLERGIES Substance Reaction Event Type Date Status Vicodin Unknown Drug Allergy Feb, Active Lovastatin had a reaction to a statin but is unsure of which statin it was Drug Allergy Feb, Active Codeine Sulfate Unknown Drug Allergy Feb, Active ENCOUNTERS Encounter Location Date Diagnosis [place] [address] [address] Dec, [place] [address] [address] September, Alzheimers disease with late onset G30.1 and Mild episode of recurrent major depressive disorder F33.0 [place] [address] [address] September, PVD (peripheral vascular disease) I73.9 ; Major depressive disorder, single episode, mild F32.0 ; Chronic fatigue R53.82 ; Weight gain R63.5 and Arthralgia, unspecified joint M25.50 [place] [address] [address] Aug, Acute low back pain, unspecified back pain laterality, with sciatica presence unspecified M54.5 [place] [address] [address]- [address] Aug, Acute low back pain, unspecified back pain laterality, with sciatica presence unspecified M54.5 [place] [address] [address]- 270[address] Aug, Pain R52 [place] [address] 0[address]- [address] Jul, [place] [address] [address] Jun, [place] [address] [address] Jun, 2017 Medicare annual wellness visit, initial Z00.00 ; Mixed hyperlipidemia E78.2 ; Essential hypertension I10 ; Anxiety F41.9 ; Alzheimers disease with late onset G30.1 ; 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 ; Overactive bladder N32.81 ; Primary insomnia F51.01 ; At high risk for falls Z91.81 and Encounter for immunization Z23 [facility] [address] [address] [id number] [place] [address] 91754- 8378 May, [place] [address] [place] [id number] [place] [address] 72585- 4662 May, Essential hypertension I10 and Transient cerebral ischemia, unspecified transient cerebral ischemia type G45.9 [facility] [address] [place] [id number] [place] [address] [id number] 19 May, 2017 Dental examination Z01.20 and Dental caries K02.9 [place] [address] [place] [id number] [place] [address] 16089- 5895 May, [place] [address] [place] [id number] [place] [address] 96975- 3644 May, [place] [address] [place] [id number] [place] [address] 89474- 6368 May, Alzheimers disease with late onset G30.1 [place] [address] [place] [id number] [place] [address] 34483- 0850 Apr, [place] [address] [place] [id number] [place] [address] 69274- 5866 Apr, Alzheimers disease with late onset G30.1 and Mild episode of recurrent major depressive disorder F33.0 [place] [address] [place] [id number] [place] [address] 05637- 8615 Mar, Mild episode of recurrent major depressive disorder F33.0 [place] [address] [place] [id number] [place] [address] 79283- 7733 Mar, Mixed hyperlipidemia E78.2 ; Essential hypertension I10 ; Asymptomatic microscopic hematuria R31.21 and Renal cyst, left Q61.00 [facility] [address] [place] [id number] [place] [address] 56686- 6579 Mar, [facility] [address] [place] [id number] [place] [address] 52769- 3996 Feb, Encounter for immunization Z23 [facility] [address] [address]65- 2225 Feb, [facility] [address] [place] [id number] [place] [address] 03764- 5947 Feb, [facility] [address] [place] [id number] [place] [address] 97903 -9009 Feb, ANUG (acute necrotizing ulcerative gingivitis) A69.1 [place] [address] [place] [id number] [place] [address] 21819- 0681 Feb, [facility] [address] [place] [id number] [place] [address] 72314- 8212 Feb, Mild episode of recurrent major depressive disorder F33.0 [place] [address] [place] [id number] [place] [address] 39031- 5858 Feb, Alzheimers disease with late onset G30.1 and Mild episode of recurrent major depressive disorder F33.0 [facility] [address] [place] [id number] [place] [address] 15197- 0609 Jan, Alzheimers disease with late onset G30.1 [facility] [address] [place] [id number] [place] [address] 87568- 4857 Jan, Gait instability R26.[address] [facility] [address] [id number] [place] [address] [facility] [address] [id number] [place] [address] Dec [facility] [id number] [place] [address] 37860- 1893 Dec, [facility] [address] [place] [address] 82438- 3333 Dec, [facility] [address] [place] [id number] [place] [address] 59320- 3598 Dec, Essential hypertension I10 ; Transient cerebral ischemia, unspecified transient cerebral ischemia type G45.9 and Anxiety F41.9 [facility] [address] [place] [id number] [place] [address] 34713- 9289 Dec, Gait instability R26.81 [facility] [address] [place] [id number] [place] [address] 33344- 0149 Dec, [facility] [address] [place] [id number] [place] [address] 27754- 7685 Nov, Alzheimers disease with late onset G30.1 and Mild episode of recurrent major depressive disorder F33.0 [facility] [address] [place] [id number] [place] [address] 00211- 5549 Nov, [facility] [address] [place] [id number] [place] [address] 00161- 6033 Nov, Gait instability R26.81 [facility] [address] [place] [id number] [place] [address] 67993- 9704 Nov, Anxiety F41.9 [facility] [address] [place] [address] 56104- 0664 Nov, [facility] [address] [address] 7[address] Nov, [facility] [id number] [place] [address] 57787- 2380 Oct, Gait instability R26.81 [facility] [address] [place] [address] 97803- 7570 Oct, Anxiety F41.9 [facility] [address] [place] [id number] [place] [address] 05977- 0977 Oct, Gait instability R26.81 [facility] [address], [place] [address] 3409 Oct, Gait instability R26.81 [facility] [address] [place] [id number] [place] [address] 56627- 5828 Oct, [facility] [address] [place] [id number] [place] [address] 17206- 5889 Oct, Anxiety F41.9 ; Chronic 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 use Z79.899 ; Encounter for immunization Z23 and Transient cerebral ischemia, unspecified transient cerebral ischemia type G45.9 [facility] [address] [place] [id number] [place] [address] 86611- 8691 September, [facility] [address] [place] [id number] [place] [address] 16581- 0268 September, Gait instability R26.81 [facility] [address] [place] [id number] [place] [address] 58885- 2145 September, [facility] [address] [place] [id number] [place] [address] 61292- 4670 September, [facility] [address] [place] [id number] [place] [address] 34775- 4969 September, [facility] [address], [place] [address] 6515 September, Alzheimers disease with late onset G30.1 and Mild episode of recurrent major depressive disorder F33.0 [facility] [address], [place] [address] September, [facility] [address] [place] [id number] [place] [address] 96223- 2279 September, [facility] [address] [place] [id number] [address]- 9815 September, [facility] [address], [place] [address]- 5227 September, Mild episode of recurrent major depressive disorder F33.0 [facility] [address], [place] [address]- 6475 Aug, Mild episode of recurrent major depressive disorder F33.0 ; Alzheimers disease with late onset G30.1 ; Other acute pulmonary embolism without acute cor pulmonale I26.99 and Cough R05 [facility] [address] [place] [id number] [place] [address] 43537- 0496 Aug, [facility] [address] [place] [id number] [place] [address] 81846- 4093 Aug, Gait instability R26.81 [facility] [address] [place] [id number] [place] [address] 19354- 7392 Aug, Alzheimers disease with late onset G30.1 and Mild episode of recurrent major depressive disorder F33.0 [facility] [address] [place] [id number] [place] [address] 00113- 2406 Aug, [facility] [address] [place] [id number] [place] [address] 37080- 3134 Aug, 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 [facility] [address] [place] [id number] [place] [address] 43288- 9019 Jul, Alzheimers disease with late onset G30.1 [facility] [address], [place] [address]- 6226 Jul, [facility] [address] [place] [id number] [place] [address] 82520- 5806 Jul, 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 [facility] [address] [place] [id number] [place] [address] 13372- 1407 Jul, Anxiety F41.9 ; Alzheimers disease with late onset G30.1 and Transient cerebral ischemia, unspecified transient cerebral ischemia type G45.9 [facility] [address], [place] [address]- 4588 Jun, Essential hypertension I10 [facility] [address] [place] [address] 74981- 4716 Jun, [facility] [address] [place] [id number] [place] [address] 36541- 7834 Jun, [facility] [address] [place] [id number] [place] [address] 67273- 9571 Jun, [facility] [address] [place] [id number] [place] [address] 68155- 7280 Jun, Essential hypertension I10 ; Benign non-nodular prostatic hyperplasia with lower urinary tract symptoms N40.1 ; Anxiety F41.9 ; Pain in right knee M25.561 ; Pain in left knee M25.562 and Other chronic pain G89.29 [facility] [address] [place] [id number] [place] [address] 84671- 9659 May, [facility] [address] [place] [id number] [place] [address] 86224- 1607 May, [facility] [address] [place] [id number] [place] [address] 21266- 2999 May, [facility] [address] [place] [id number] [place] [address] 41797- 4651 Apr, [facility] [address] [place] [id number] [place] [address] 97909- 8795 Mar, [facility] [address] [place] [id number] [place] [address] 00803- 1803 Mar, Mixed hyperlipidemia E78.2 and Essential hypertension I10 [facility] [address] [place] [id number] [place] [address] 28812- 8214 Feb, [facility] [address] [place] [id number] [place] [address] 33403- 1801 Feb, Ingrown nail L60.0 and Onychomycosis B35.1 [facility] [address] [place] [id number] [place] [address] 08348- 7705 Feb, Paronychia, left L03.012 [facility] [address] [place] [id number] [place] [address] 43461- 5101 Jan, [facility] [address] [place] [id number] [place] [address] 97289- 4034 Jan, Cramps of right lower extremity R25.2 and Mixed hyperlipidemia E78.2 [facility] [address] 27883- 7235 Jan, Cramps of right lower extremity R25.2 ; Essential hypertension I10 ; Mixed hyperlipidemia E78.2 ; Chronic 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 use Z79.899 and Claudication I73.9 [facility] [address] [place] [id number] [place] [address] 52846- 1089 Jan, Right leg pain M79.604 [facility] [address] [place] [id number] [place] [address] 50909- 6857 Dec, [facility] [address] [place] [id number] [place] [address] 92524- 3849 Nov, [facility] [address] [place] [id number] [place] [address] 95481- 4697 Nov, [facility] [address] [place] [id number] [place] [address] 93556- 1295 Nov, [facility] [address] [place] [id number] [place] [address] 19135- 5467 Nov, Dermatofibroma D23.9 [facility] [address] [place] [id number] [place] [address] 20960- 0408 Nov, [facility] [address] [place] [id number] [place] [address] 80816- 1001 Oct, [facility] [address] [place] [id number] [place] [address] 93971- 0923 Oct, [facility] [address] [place] [id number] [place] [address] 19740- 0619 September, Benign non-nodular prostatic hyperplasia with lower urinary tract symptoms N40.1 ; Essential hypertension I10 ; Overactive bladder N32.81 and Fatigue, unspecified type R53.83 [facility] [address] [place] [id number] [place] [address] 89574- 1177 September, [facility] [address] [place] [id number] [place] [address] 02249- 3066 September, [facility] [address] [place] [id number] [place] [address] 68163- 8193 Aug, [facility] [address] [place] [id number] [place] [address] 61245- 3295 Jul, [facility] [address] [place] [id number] [place] [address] 44253- 9962 Jul, Pelvic pain R10.2 ; Jock itch B35.6 ; Essential hypertension I10 and Hydrocele, unspecified hydrocele type N43.3 [facility] [address] [id number] [place] [address] 33685- 1438 Jun, [facility] [address] [place] [id number] [place] [address] 66958- 7418 Jun, [facility] [address] [place] [id number] [place] [address] 27929- 8986 Jun, Benign non-nodular prostatic hyperplasia with lower urinary tract symptoms N40.1 [facility] [address] [place] [address] 67689- 6582 Jun, Benign non-nodular prostatic hyperplasia with lower urinary tract symptoms N40.1 [facility] [address], [place] [address]- 8090 Jun, [facility] [address] [id number] [place] [address] 42761- 4057 May, [facility] [address], [place] [address]- 2865 Apr, [facility] [address] [id number] [place] [address] 46253- 3312 Apr, [facility] [address] [place] [id number] [place] [address] 88178- 8525 Apr, Other acute pulmonary embolism without acute cor pulmonale I26.99 ; Anxiety F41.9 ; 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 and 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 [facility] [address] 11041- 6958 Apr, [facility] [address] [id number] [place] [address] 49528- 6105 Apr, [facility] [address] 19740- 9522 Mar, [facility] [address] [place] [id number] [place] [address] 71271- 7842 Mar, [facility] [address] [place] [id number] [place] [address] 75977- 3346 Feb, Cough R05 [facility] [address] [place] [id number] [place] [address] 77917- 9557 Feb, [facility] [address] [place] [id number] [place] [address] 08279- 4606 Feb, Encounter for immunization Z23 [facility] [address] [place] [id number] [place] [address] 85354- 2679 Feb, Other and unspecified hyperlipidemia 272.4 [facility] [address] [place] [id number] [place] [address] 10796- 2267 Jan, [facility] [address] [place] [id number] [place] [address] 40419- 4710 Jan, TIA (transient ischemic attack) 435.9 [facility] [address] [id number] [place] [address] 01999- 0229 Dec, [facility] [address] [id number] [place] [address] 92351- 2415 Dec, [facility] [address], [place] [address]- 1134 Dec, [facility] [address] [address]- 3790 Nov, [facility] [address], [place] [address]- 0955 Oct, Chronic cough 786.2 [facility] [address] [place] [id number] [place] [address] 68972- 6185 Oct, [facility] [address] [place] [address] 21777- 8510 Oct, [facility] [address] [place] [address] 05010- 4930 Oct, [facility] [address] [id number] [place] [address] 60356- 3345 Oct, [facility] [address] [place] [address] 26063- 2897 Oct, Chronic cough 786.2 [facility] [address] [place] [address] 35279- 8049 Oct, Cough 786.2 ; Hypertension 401.9 ; BPH (benign prostatic hyperplasia) 600.00 ; Other and unspecified hyperlipidemia 272.4 and Hydrocele 603.9 [facility] [address], [place] [address]- 6697 Oct, [facility] [address], [place] [address]- 7771 September, [facility] [address], [place] [address]- 4387 Aug, [facility] [address], [place] [address]- 2335 Aug, [facility] [address] [place] [id number] [address]- 8008 Jul, [facility] [place] [facility] [address] [id number] [place] [address]- 7673 Jul, [facility] [place] [facility] [address] [id number] [place] [address]- 2808 Jul, [facility] [place] [facility] [address] [id number] [place] [address]- 6775 Jul, [facility] [place] [facility] [address] [id number] [place] [address]- 8411 Jul, [facility] [place] [facility] [address] [id number] [place] [address]- 7680 Jun, 2014 [facility] [place] [facility] [address] [id number] [place] [address]- 8553 Jun, 2014 [facility] [place] [facility] [address] [id number] [place] [address]- 9459 Jun, 2014 [facility] [place] [facility] [address] [id number] [place] [address]- 8716 Jun, 2014 [facility] [place] [facility] [address] [id number] [place] [address]- 6323 Jun, [facility] [place] [facility] [address] [id number] [place] [address]- 4437 Jun, [facility] [place] [facility] [address] [id number] [place] [address]- 7392 Jun, [facility] [place] [facility] [address] [id number] [place] [address]- 7332 Jun, [facility] [place] [facility] [address] [id number] [place] [address]- 5389 May, [facility] [place] [facility] [address] [id number] [place] [address]- 2897 May, [facility] [place] [facility] [address] [id number] [place] [address]- 1689 May, [facility] [place] [facility] [address] [id number] [place] [address]- 9355 May, [facility] [place] [facility] [address] [id number] [place] [address]- 1248 May, [facility] [place] [facility] [address] [id number] [place] [address]- 5161 May, [facility] [place] [facility] [address] [id number] [place] [address]- 8594 May, [facility] [place] [facility] [address] [id number] [place] [address]- 5364 May, [facility] [place] [facility] [address] [id number] [place] [address]- 9790 May, [facility] [place] [facility] [address] [id number] [place] [address]- 3875 May, [facility] [place] [facility] [address] [id number] [place] [address]- 9347 Apr, [facility] [place] [facility] [address] [id number] [place] [address]- 4445 Apr, [facility] [place] [facility] [address] [id number] [place] [address]- 5713 Apr, [facility] [place] [facility] [address] [facility] [id number] [place] [address]- 5392 Apr, [facility] [place] [facility] [address] [id number] [place] [address]- 3656 Apr, [facility] [place] [facility] [address] [id number] [place] [address]- 2302 Apr, [facility] [place] [facility] [address] [id number] [place] [address]- 9678 Apr, [facility] [place] [facility] [address] [id number] [place] [address]- 2927 Apr, [facility] [place] [facility] [address] [id number] [place] [address]- 3671 Mar, [facility] [place] [facility] [address] [id number] [place] [address]- 0828 Mar, [facility] [place] [facility] [address] [id number] [place] [address]- 5145 Mar, [facility] [place] [facility] [address] [id number] [place] [address]- 9431 Mar, [facility] [place] [facility] [address] [id number] [place] [address] Mar, [facility] [place] [facility] [address] [id number] [place] [address] Mar, [facility] [place] [facility] [address] [id number] [place] [address] Mar, [facility] [place] [facility] [address] [id number] [place] [address] Mar, [facility] [place] [facility] [address] [id number] [place] [address] Mar, [facility] [place] [facility] [address] [id number] [place] [address] Mar, [facility] [place] [facility] [address] [id number] [place] [address] Feb, [facility] [place] [facility] [address] [id number] [place] [address] Feb, [facility] [place] [facility] [address] [id number] [place] [address] Feb, [facility] [place] [facility] [address] [id number] [place] [address] Feb, [facility] [place] [facility] [address] [id number] [place] [address] Feb, [facility] [place] [facility] [address] [id number] [place] [address] Feb, [facility] [place] [facility] [address] [id number] [place] [address] 30 Jan, 2013 [facility] [place] [facility] [address] [id number] [place] [address] 30 Jan, 2013 [facility] [place] [facility] [address] [address] [id number] [place] [address] 24 Jan, 2013 [facility] [place] [facility] [address] [id number] [place] [address] 2546 24 Jan, 2013 [facility] [place] [facility] [address] [id number] [place] [address] 19 Jan, 2013 [facility] [place] [facility] [address] [id number] [place] [address] 1765 19 Jan, 2013 [facility] [place] [facility] [address] [id number] [place] [address] 16 Jan, 2013 [facility] [place] [facility] [address] [id number] [place] [address] 16 Jan, 2013 [facility] [place] [facility] [address] [id number] [place] [address]44 16 Jan, 2013 [facility] [place] [facility] [address] [id number] [place] [address] 1355 16 Jan, 2013 [facility] [place] [facility] [address] [id number] [place] [address] 12 Jan, 2013 [facility] [place] [facility] [address] [id number] [place] [address] 12 Jan, 2013 [facility] [place] [facility] [address] [id number] [address] Dec, [facility] [place] [facility] [address] [id number] [place] [address] 45[address] Dec, [facility] [place] [facility] [address] [id number] [place] [address] 4816 Dec, [facility] [place] [facility] [address] [id number] [place] [address] 9868 Dec, [facility] [place] [facility] [address] [id number] [place] [address] 2872 Dec, [facility] [place] [facility] [address] [id number] [place] [address] 9669 Dec, [facility] [place] [facility] [address] [id number] [place] [address] 46[address] Nov, [facility] [place] [facility] [address] [id number] [place] [address] Nov, [facility] [place] [facility] [address] [id number] [place] [address] 5[address] Nov, [facility] [place] [facility] [address] [id number] [place] [address]- 7750 Nov, [facility] [place] [facility] [address] [id number] [place] [address] 5327 Nov, [facility] [place] [facility] [address] [id number] [place] [address]- 1545 Nov, [facility] [place] [facility] [address] [id number] [place] [address] 9747 Nov, [facility] [place] [facility] [address] [id number] [place] [address]- 8945 Nov, [facility] [place] [facility] [address] [id number] [place] [address] 9487 Oct, [facility] [place] [facility] [address] [id number] [place] [address] 8745 Oct, [facility] [place] [facility] [address] [id number] [place] [address] 2679 Oct, [facility] [place] [facility] [address] [id number] [place] [address]- 9667 Oct, [facility] [place] [facility] [address] [id number] [place] [id number] [address] September, [facility] [place] [facility] [address] [id number] [place] [address] 5[address] September, [facility] [address] [id number] [place] [address] 5466 September, [facility] [place] [facility] [address] [id number] [place] [address] 7858 September, [facility] [place] [facility] [address] [id number] [place] [address] 1252 September, [facility] [place] [facility] [address] [id number] [place] [address] 3525 September, [facility] [place] [facility] [address] [id number] [place] [address] 0251 Aug, [facility] [place] [facility] [address] [id number] [place] [address] 7650 Aug, [facility] [place] [facility] [address] [id number] [place] [address] 2449 Aug, [facility] [place] [facility] [address] [id number] [place] [address] 0822 Aug, [facility] [place] [facility] [address] [id number] [place] [address] 3291 Aug, [facility] [place] [facility] [address] [id number] [place] [address]- 0121 Aug, [facility] [place] [facility] [address] [id number] [place] [address] 6077 Aug, [facility] [place] [facility] [address] [id number] [place] [address]- 0833 Aug, [facility] [place] [facility] [address] [id number] [place] [address] 6078 Jul, [facility] [place] [facility] [address] [id number] [place] [address] 3993 Jul, [facility] [place] [facility] [address] [id number] [place] [address] Jun, [facility] [place] [facility] [address] [id number] [place] [address]- 7933 Jun, [facility] [place] [facility] [address] [id number] [place] [address]- 0194 Jun, [facility] [place] [facility] [address] [id number] [place] [address] Jun, [facility] [place] [facility] [address] [id number] [place] [address]- 6516 Jun, [facility] [place] [facility] [address] [id number] [place] [address] 2117 May, [facility] [place] [facility] [address] [id number] [place] [address]- 5425 May, [facility] [place] [facility] [address] [id number] [place] [address]- 2375 May, [facility] [place] [facility] [address] [id number] [place] [address]- 0641 May, [facility] [place] [facility] [address] [id number] [place] [address]- 7692 Apr, [facility] [place] [facility] [address] [id number] [place] [address] 0214 Apr, [facility] [place] [facility] [address] [facility] [id number] [place] [address] 1399 Mar, [facility] [place] [facility] [address] [id number] [place] [address] 3058 Mar, [facility] [place] [facility] [address] [id number] [place] [address]- 8838 Feb, [facility] [place] [facility] [address] [id number] [place] [address]- 6043 Feb, [facility] [place] [facility] [address] [id number] [place] [address]- 7480 Feb, [facility] [place] [facility] [address] [id number], [place] [address] 8707 Feb, [facility] [place] [facility] [address] [id number] [place] [address]- 3432 Feb, [facility] [place] [facility] [address] [id number] [place] [address]- 3464 Feb, [facility] [place] [facility] [address] [id number] [place] [address]- 7624 Feb, [facility] [place] [facility] [address] [id number] [place] [address]- 8842 Jan, [facility] [place] [facility] [address] [id number] [place] [address] 1940 Jan, [facility] [place] [facility] [address] [id number] [place] [address]- 9471 Dec, [facility] [place] [facility] [address] [id number] [place] [address]- 4660 Dec, [facility] [place] [facility] [address] [id number] [place] [address]- 4925 Dec, [facility] [place] [facility] [address] [id number] [place] [address]- 2229 Dec, [facility] [place] [facility] [address] [id number] [place] [address]- 5189 Dec, [facility] [place] [facility] [address] [id number] [place] [address]- 6975 Nov, [facility] [place] [facility] [address] [id number] [place] [address]- 4840 Nov, [facility] [place] [facility] [address] [id number] [place] [address]- 4879 Nov, [facility] [place] [facility] [address] [id number] [place] [address]- 3972 Oct, [facility] [place] [facility] [address] [id number] [place] [address]- 7553 Oct, [facility] [place] [facility] [address] [id number] [place] [address]- 7336 Oct, [facility] [address] [id number] [place] [address]- 3248 September, [facility] [address] [id number] [place] [address]- 2276 Aug, [facility] [address] [id number] [place] [address] 2546 Aug, [facility] [address] [id number] [place] [address]- 7829 Aug, [facility] [address] [id number] [place] [address]- 2327 Jul, [facility] [address] [id number] [place] [address]- 9475 Jul, [facility] [address] [id number] [place] [address]- 6938 Jul, [facility] [address] [id number] [place] [address]- 7910 Jul, [facility] [address] [id number] [place] [address]- 5635 Jul, [facility] [address] [id number] [place] [address]- 2635 Jun, [facility] [address] [id number] [place] [address]- 7306 Jun, [facility] [place] [facility] [address] [id number] [place] [address] 2549 May, [facility] [place] [facility] [address] [id number] [place] [address] 2546 May, [facility] [place] [facility] [address] [id number] [place] [address]- 7901 Apr, [facility] [place] [facility] [address] [id number] [place] [address]- 3076 Apr, [facility] [place] [facility] [address] [id number] [place] [address]- 7366 Mar, [facility] [place] [facility] [address] [id number] [place] [address]- 0686 Mar, [facility] [place] [facility] [address] [id number] [place] [address] 2546 Mar, [facility] [address] [id number] [place] [address]- 2546 Mar, [facility] [address] [id number] [place] [id number] Feb, [facility] [address] [id number] [place] [address]- 2606 Feb, [facility] [place] [facility] [address] [id number] [place] [address]- 2346 Feb, [facility] [place] [facility] [address] [id number] [place] [address]- 4696 Feb, [facility] [place] [facility] [address] [id number] [place] [address]- 0967 Feb, [facility] [place] [facility] [address] [id number] [place] [address]- 4636 Feb, [facility] [place] [facility] [address] [id number] [place] [address]- 1106 Feb, [facility] [place] [facility] [address] [id number] [place] [address]- 6816 Jan, [facility] [place] [facility] [address] [id number] [place] [address]- 2546 Jan, [facility] [place] [facility] [address] [id number] [place] [address] 2546 Dec, [facility] [place] [facility] [address] [id number] [place] [address]- 2546 Dec, [facility] [place] [facility] [address] [id number] [place] [address]- 7156 Nov, [facility] [place] [facility] [address] [id number] [place] [address]- 1018 Oct, [facility] [address] [id number] [place] [address]- 5916 September, [facility] [address] [id number] [place] [address]- 2546 September, [facility] [address] [id number] [place] [address], [place] [address] 2546 September, [facility] [address] [id number] [place] [address]- 2697 Aug, [facility] [address] [id number] [place] [address]- 6145 May, [facility] [address] [id number] [place] [address]- 2302 May, [facility] [address] [id number] [place] [address]- 9132 Apr, [facility] [address] [id number] [place] [address]- 6878 Apr, [facility] [address] [id number] [place] [address]- 1569 Apr, [facility] [address] [id number] [place] [address]- 7394 Apr, [facility] [address] [id number], [place] [address]- 1486 Apr, [facility] [address] [id number] [place] [address]- 6700 Mar, [facility] [place] [facility] [address] [id number] [place] [address]- 1276 Feb, [facility] [place] [facility] [address] [id number] [place] [address]- 4325 Feb, [facility] [address] [id number], [place] [address]- 5[address] September, [facility] [address] [facility] [id number], [place] [address]- 2076 Mar, [facility] [address] [facility] [id number], [place] [address] 2546 Feb, [facility] [address] [facility] [id number], [place] [address]- 4756 Feb, [facility] [address] [facility] [id number], [place] [address]- 4116 Feb, IMMUNIZATIONS No Known Immunizations SOCIAL HISTORY Never Assessed REASON FOR VISIT mouth bleeding has increased the last few days JStrasserRMuriel PLAN OF CARE Activity Details Follow Up prn Reason: VITAL SIGNS Height 65 in 2017-03-06 Weight 194.4 lbs 2017-03-06 Temperature 98.6 degrees Fahrenheit 2017-03-06 Heart Rate 80 bpm 2017-03-06 Respiratory Rate 22 2017-03-06 BMI 32.35 kg/m2 2017-03-06 Blood pressure systolic 140 mmHg 2017-03-06 Blood pressure diastolic 72 mmHg 2017-03-06 MEDICATIONS Medication Instructions Dosage Frequency Start Date End Date Duration Status Proscar 5 MG TAKE 1 TABLET BY MOUTH ONCE DAILY. 30 Active Amlodipine Besylate 10 MG TAKE ONE TABLET BY MOUTH ONCE DAILY Active Eliquis 5 mg Orally 2 times a day 1 tablet 12h Active Flomax 0.4 MG Orally Once a day 1 capsule 30 minutes after the same meal each day 24h 30 Active Cymbalta 60 mg Orally Once a day 1 capsule 24h 90 days Active Amoxicillin 500 MG Orally every 8 hrs 1 capsule 8h Feb, Feb, 10 day(s) Active Oxybutynin Chloride 5 MG TAKE ONE TABLET BY MOUTH TWICE DAILY 30 Active Namenda 10 MG Orally Twice a day 1 tablet 12h Active Aricept 5 mg Orally Once a day 1 tablet at bedtime 24h 30 days Active Abilify 5 mg Orally Once a day 1 tablet 24h 30 day(s) Active Aspirin 81 MG Orally Once a day 1 tablet 24h Active Trazodone HCl 150 MG Orally Once a day 1 tablet at bedtime 24h 30 days Active Peridex 0.12 % Mouth/Throat swish and spit twice daily for 30 seconds 15 mls Feb, Feb, 7 days Active RESULTS No Results PROCEDURES Procedure Date Ordered Result Body Site [facility] VISIT ESTABLISHED PATIENT Mar 06, 2017 INSTRUCTIONS MEDICATIONS ADMINISTERED No Known Medications [...] Hospitalization History foot fracture Hospitalization History Via [facility]- Back Pain 03/24/2017
--- OUTSIDE RECORDS SUMMARY | 2018-04-10 18:09 | XMS REPORT ---
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 Name Role Phone GELYGLORIASHAY Unavailable PROBLEMS Type Condition ICD9-CM Code INZ49-WQ Code Onset Dates Condition Status SNOMED Code Problem Color blindness H53.50 Active 907276805 Problem Presbyopia of both eyes H52.4 Active 76931755 Problem Nuclear senile cataract of both eyes H25.13 Active 950448248 Problem Astigmatism of both eyes, unspecified type H52.203 Active 22212848 Problem Overactive bladder N32.81 Active 170742249 Problem Essential hypertension I10 Active 27459703 Problem Other chronic pain G89.29 Active 79411111 Problem Hypermetropia of both eyes H52.03 Active 20898130 Problem Alzheimer's disease, unspecified G30.9 Active 944958289 Problem Mild episode of recurrent major depressive disorder F33.0 Active 667943641 Problem 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 Active 533750814 Problem Major depressive disorder, single episode, mild F32.0 Active 35645186 Problem Chronic fatigue R53.82 Active 74677476 Problem Hydrocele, unspecified hydrocele type N43.3 Active 51403854 Problem Other acute pulmonary embolism without acute cor pulmonale I26.99 Active 738347014 Problem 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 Active 886204868 Problem Asymptomatic microscopic hematuria R31.21 Active 550317269 Problem Gait instability R26.81 Active 85611183 Problem PVD (peripheral vascular disease) I73.9 Active 875499485 Problem At high risk for falls Z91.81 Active [id number] Problem 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 Active 28134053 Problem Benign non-nodular prostatic hyperplasia with lower urinary tract symptoms N40.1 Active 043432951 Problem Alzheimers disease with late onset G30.1 Active 608286954 Problem Renal cyst, left Q61.00 Active 57893232 Problem Mixed hyperlipidemia E78.2 Active 635418496 Problem Anxiety F41.9 Active 60360118 Problem Transient cerebral ischemia, unspecified transient cerebral ischemia type G45.9 Active 423965595 Problem Primary insomnia F51.01 Active 759801431 ALLERGIES No Information ENCOUNTERS Encounter Location Date Diagnosis [place] [id number] [place] [address] 98884- 1092 Dec, [place] [address] 30671- 9705 September, Alzheimers disease with late onset G30.1 and Mild episode of recurrent major depressive disorder F33.0 [place] [address] 13667- 0892 September, PVD (peripheral vascular disease) I73.9 ; Major depressive disorder, single episode, mild F32.0 ; Chronic fatigue R53.82 ; Weight gain R63.5 and Arthralgia, unspecified joint M25.50 [place] [id number] [place] [address] 81827- 1649 Aug, Acute low back pain, unspecified back pain laterality, with sciatica presence unspecified M54.5 [place] [id number] [place] [address] 26786- 2419 Aug, Acute low back pain, unspecified back pain laterality, with sciatica presence unspecified M54.5 [place] [id number] [place] [address] 10201- 7616 Aug, Pain R52 [place] [id number] [place] [address] 54251- 1486 Jul, [place] [address] 38056- 1873 Jun, [place] [id number] [place] [address] 05638- 3470 07 Jun, 2017 Medicare annual wellness visit, initial Z00.00 ; Mixed hyperlipidemia E78.2 ; Essential hypertension I10 ; Anxiety F41.9 ; Alzheimers disease with late onset G30.1 ; 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 ; Overactive bladder N32.81 ; Primary insomnia F51.01 ; At high risk for falls Z91.81 and Encounter for immunization Z23 [facility] [id number] [place] [address] 24797- 3703 May, [facility] [address] 04353- 9890 May, Essential hypertension I10 and Transient cerebral ischemia, unspecified transient cerebral ischemia type G45.9 [facility] [address] [id number] May, Dental examination Z01.20 and Dental caries K02.9 [place] [address] 37809- 2861 May, [place] [address] 76814- 0013 May, [place] [id number] [place] [address] 29912- 2828 May, Alzheimers disease with late onset G30.1 [place] [id number] [place] [address] 10525- 6606 Apr, [place] [id number] [place] [address] 33675- 6621 Apr, Alzheimers disease with late onset G30.1 and Mild episode of recurrent major depressive disorder F33.0 [place] [id number] [place] [address] 00196- 7572 Mar, Mild episode of recurrent major depressive disorder F33.0 [place] [id number] [place] [address] 24463- 5172 Mar, Mixed hyperlipidemia E78.2 ; Essential hypertension I10 ; Asymptomatic microscopic hematuria R31.21 and Renal cyst, left Q61.00 [place] [address] [place] [address]- 1446 Mar, [facility] [id number] [place] [address] 96874- 4132 Feb, Encounter for immunization Z23 [facility] [id number] [place] [address] 49510- 6040 Feb, [facility] [id number] [place] [address] 20268- 1721 Feb, [facility] [id number] [place] [address] 11183 -3095 Feb, ANUG (acute necrotizing ulcerative gingivitis) A69.1 [facility] [id number] [place] [address] 94873- 0771 Feb, [facility] [id number] [place] [address] 99613- 7851 Feb, Mild episode of recurrent major depressive disorder F33.0 [facility] [address] [place] [address] 19022- 6369 Feb, Alzheimers disease with late onset G30.1 and Mild episode of recurrent major depressive disorder F33.0 [facility] [address] [place] [address] 41541- 3469 Jan, Alzheimers disease with late onset G30.1 [facility] [address] [address]- 8911 Jan, Gait instability R26.81 [facility] [address] [id number] [place] [address] Jan [facility] [address] [id number] [place] [address] Dec [facility] [address] [address]- 8027 Dec, [facility] [address] [place] [address] 88736- 1002 Dec, [place] [address] [facility] [id number] [address] Dec, Essential hypertension I10 ; Transient cerebral ischemia, unspecified transient cerebral ischemia type G45.9 and Anxiety F41.9 [facility] [address] [facility]] [id number] [place] [address] 25564 2546 Dec, Gait instability R26.81 [facility] [address] [facility] [id number] [place] [address] 27079 2546 Dec, [facility] [address] [facility]] [id number] [place] [address] 66842 254 Nov, Alzheimers disease with late onset G30.1 and Mild episode of recurrent major depressive disorder F33.0 [facility] [id number] [place] [address] 44075- 8706 Nov, [facility] [id number] [place] [address] 40664- 2506 Nov, Gait instability R26.81 [facility] [address] [facility]] [id number] [place] [address] 23568 2542 Nov, Anxiety F41.9 [facility] [address] [facility]] [id number] [place] [address] 52662 2546 Nov, [facility] [id number] [place] [address] 06986 2546 Nov, [facility] [address] [facility]] [id number] [place] [address] 36780 2546 Oct, Gait instability R26.81 [facility] [address] [facility]] [id number] [place] [address] 61002 2546 Oct, Anxiety F41.9 [facility] [address] [facility]] [id number] [place] [address] 40184 2548 Oct, Gait instability R26.81 [facility] [address] [facility] [id number] [address] 2546 Oct, Gait instability R26.81 [facility] [address] [address]- 2797 Oct, [facility] [id number] [place] [address] 39126- 7793 Oct, Anxiety F41.9 ; Chronic 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 use Z79.899 ; Encounter for immunization Z23 and Transient cerebral ischemia, unspecified transient cerebral ischemia type G45.9 [facility] [id number] [address]- 7371 September, [facility] [id number] [address]- 4466 September, Gait instability R26.81 [facility] [id number] [address]- 4301 September, [facility] [id number] [address]- 7316 September, [facility] [id number], [place] [address]- 1114 September, [facility] [address], [place] [address]- 3032 September, Alzheimers disease with late onset G30.1 and Mild episode of recurrent major depressive disorder F33.0 [facility] [address], [place] [address]- 2560 September, [facility] [address], [place] [address]- 5480 September, [facility] [address], [place] [address]- 5500 September, [facility] [id number] [address]- 8842 September, Mild episode of recurrent major depressive disorder F33.0 [facility] [address], [place] [address]- 3784 Aug, Mild episode of recurrent major depressive disorder F33.0 ; Alzheimers disease with late onset G30.1 ; Other acute pulmonary embolism without acute cor pulmonale I26.99 and Cough R05 [facility] [id number] [place] [address] 43380- 3440 Aug, [facility] [id number] [place] [address] 24407- 8811 Aug, Gait instability R26.81 [facility] [address] 91758- 1299 Aug, Alzheimers disease with late onset G30.1 and Mild episode of recurrent major depressive disorder F33.0 [facility] [address] 23302- 1526 Aug, [place] [id number] [place] [address] 84544- 4022 Aug, 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 [facility] [id number] [place] [address] 36082- 7924 Jul, Alzheimers disease with late onset G30.1 [facility] [id number] [place] [address] 11235- 9162 Jul, [place] [id number] [place] [address] 38438- 0923 Jul, 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 [facility] [id number] [place] [address] 72600- 0363 Jul, Anxiety F41.9 ; Alzheimers disease with late onset G30.1 and Transient cerebral ischemia, unspecified transient cerebral ischemia type G45.9 [facility] [id number] [place] [address] 51150- 7660 Jun, Essential hypertension I10 [facility] [id number] [place] [address] 93528- 8811 Jun, [facility] [address] [place] [address]- 3720 Jun, [facility] [id number] [place] [address] 79805- 5194 Jun, [facility] [id number] [place] [address] 50197- 8237 Jun, Essential hypertension I10 ; Benign non-nodular prostatic hyperplasia with lower urinary tract symptoms N40.1 ; Anxiety F41.9 ; Pain in right knee M25.561 ; Pain in left knee M25.562 and Other chronic pain G89.29 [facility] [id number] [place] [address] 26092- 4564 May, [facility] [id number] [place] [address] 53406- 1249 May, [facility] [id number] [place] [address] 73532- 3711 May, [facility] [id number] [place] [address] 79938- 7621 Apr, [facility] [id number] [place] [address] 95582- 6635 Mar, [facility] [id number] [place] [address] 55691- 4367 Mar, Mixed hyperlipidemia E78.2 and Essential hypertension I10 [facility] [id number] [place] [address] 06173- 3221 Feb, [facility] [id number] [place] [address] 62533- 0612 Feb, Ingrown nail L60.0 and Onychomycosis B35.1 [facility] [id number] [place] [address] 59246- 1445 Feb, Paronychia, left L03.012 [facility] [id number] [place] [address] 44244- 5378 Jan, [facility] [id number] [address]- 5107 07 Jan, 2016 Cramps of right lower extremity R25.2 and Mixed hyperlipidemia E78.2 [facility] [address] [place] [address] 23076- 0666 Jan, Cramps of right lower extremity R25.2 ; Essential hypertension I10 ; Mixed hyperlipidemia E78.2 ; Chronic 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 use Z79.899 and Claudication I73.9 [facility] [id number] [place] [address] 37929- 5034 Jan, Right leg pain M79.604 [facility] [id number] [place] [address] 83136- 0091 Dec, [facility] [id number] [place] [address] 02303- 0547 Nov, [facility] [id number] [place] [address] 34046- 6526 Nov, [facility] [address] [place] [address] 71508- 8124 Nov, [facility] [id number] [place] [address] 31228- 0378 Nov, Dermatofibroma D23.9 [facility] [address] [place] [address] 53701- 3463 Nov, [facility] [id number] [place] [address] 85291- 1116 Oct, [facility] [id number] [place] [address] 00100- 4247 Oct, [facility] [id number] [place] [address] 04786- 9489 September, Benign non-nodular prostatic hyperplasia with lower urinary tract symptoms N40.1 ; Essential hypertension I10 ; Overactive bladder N32.81 and Fatigue, unspecified type R53.83 [facility] [address] [address]- 4323 September, [facility] [address] [place] [address] 01323- 7196 September, [facility] [address], [place] [address]- 8136 Aug, [facility] [id number] [place] [address] 15420- 8588 Jul, [facility] [id number] [place] [address] 598418- 7945 Jul, Pelvic pain R10.2 ; Jock itch B35.6 ; Essential hypertension I10 and Hydrocele, unspecified hydrocele type N43.3 [facility] [address], [place] [address]- 6606 Jun, [facility] [id number] [place] [address] 072821- 3028 Jun, [facility] [address] 0371 Jun, Benign non-nodular prostatic hyperplasia with lower urinary tract symptoms N40.1 [facility] [address] 4060 Jun, Benign non-nodular prostatic hyperplasia with lower urinary tract symptoms N40.1 [facility] [address], [place] [address]- 7466 Jun, [facility] [address], [place] [address]- 4481 May, [facility] [id number], [place] [address]- 6418 Apr, [facility] [address] 6686 Apr, [facility] [address] [address]- 4735 Apr, Other acute pulmonary embolism without acute cor pulmonale I26.99 ; Anxiety F41.9 ; 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 and 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 [facility] [id number] [place] [address] 94227- 9991 Apr, [facility] [id number] [place] [address] 39338- 8091 Apr, [facility] [address] 32669- 9022 Mar, [facility] [address] 01956- 0525 Mar, [facility] [address] 80482- 3793 Feb, Cough R05 [facility] [address] 91226- 1910 Feb, [facility] [id number] [place] [address] 97192- 5403 Feb, Encounter for immunization Z23 [facility] [address] 85862- 3406 Feb, Other and unspecified hyperlipidemia 272.4 [facility] [id number] [place] [address] 04520- 6058 Jan, [facility] [id number] [place] [address] 20791- 6776 Jan, TIA (transient ischemic attack) 435.9 [facility] [id number] [place] [address] 37108- 6834 Dec, [facility] [address] 08109- 8256 Dec, [facility] [id number] [place] [address] 86026- 3283 Dec, [facility] [address] [place] [address]- 9691 Nov, [facility] [address] [place] [address] 87041- 7426 Oct, Chronic cough 786.2 [facility] [address], [place] [address]- 2014 Oct, [facility] [id number] [place] [address] 00483- 6648 Oct, [facility] [id number] [place] [address] 42810- 0448 Oct, [facility] [id number] [place] [address] 84813- 8768 Oct, [facility] [address] [place] [address] 78014- 4160 Oct, Chronic cough 786.2 [facility] [id number] [place] [address] 27662- 5561 Oct, Cough 786.2 ; Hypertension 401.9 ; BPH (benign prostatic hyperplasia) 600.00 ; Other and unspecified hyperlipidemia 272.4 and Hydrocele 603.9 [facility] [address] [address]- 3613 Oct, [facility] [address], [place] [address]- 4653 September, [facility] [address], [place] [address]- 8582 Aug, [facility] [address], [place] [address]- 2951 Aug, [facility] [id number] [place] [address] 66907- 7824 Jul, [facility] [address], [place] [address]- 8758 Jul, [facility] [id number] [place] [address] 69426- 7892 Jul, [facility] [place] [facility] [address] [id number] [place] [address]- 9228 Jul, [facility] [place] [facility] [address] [id number] [place] [address]- 7766 Jul, [facility] [place] [facility] [address] [id number] [place] [address]- 4900 Jun, 2014 [facility] [place] [facility] [address] [id number] [place] [address]- 6653 Jun, 2014 [facility] [place] [facility] [address] [id number] [place] [address]- 0268 Jun, 2014 [facility] [place] [facility] [address] [id number] [place] [address]- 6163 Jun, 2014 [facility] [place] [facility] [address] [id number] [place] [address]- 5872 Jun, 2014 [facility] [place] [facility] [address] [id number] [place] [address]- 4285 Jun, [facility] [place] [facility] [address] [id number] [place] [address]- 6488 Jun, [facility] [place] [facility] [address] [facility] [id number] [place] [address]- 2586 Jun, [facility] [place] [facility] [address] [id number] [place] [address]- 7269 May, [facility] [place] [facility] [address] [id number] [place] [address]- 4727 May, [facility] [place] [facility] [address] [id number] [place] [address]- 1394 May, [facility] [place] [facility] [address] [id number] [place] [address] May, [facility] [place] [facility] [address] [id number] [place] [address] May, [facility] [place] [facility] [address] [id number] [place] [address] May, [facility] [place] [facility] [address] [id number] [place] [address] May, [facility] [place] [facility] [address] [id number] [place] [address] May, [facility] [place] [facility] [address] [id number] [place] [address] May, [facility] [address] [id number] [place] [address] May, [facility] [place] [facility] [address] [id number] [place] [address] Apr, [facility] [address] [id number] [place] [address] Apr, [facility] [address] [id number] [place] [address] Apr, [facility] [place] [facility] [address] [id number] [place] [address] Apr, [facility] [place] [facility] [address] [id number] [place] [address] Apr, [facility] [place] [facility] [address] [id number] [place] [address] Apr, [facility] [place] [facility] [address] [id number] [place] [address] Apr, [facility] [place] [facility] [address] [id number] [place] [address] Apr, [facility] [place] [facility] [address] [id number] [place] [address] Mar, [facility] [place] [facility] [address] [id number] [place] [address] Mar, [facility] [place] [facility] [address] [id number], [place] [address] Mar, [facility] [place] [facility] [address] [id number] [place] [address] Mar, [facility] [place] [facility] [address] [id number] [place] [address] Mar, [facility] [place] [facility] [address] [id number] [place] [address] 8767 Mar, [facility] [place] [facility] [address] [id number] [place] [address]474 Mar, [facility] [place] [facility] [address] [id number] [place] [address] Mar, [facility] [place] [facility] [address] [id number] [place] [address] 3428 Mar, [facility] [place] [facility] [address] [id number] [place] [address]- 9[address] Mar, [facility] [place] [facility] [address] [id number] [place] [address]- 9571 Feb, [facility] [place] [facility] [address] [id number] [place] [address] 2917 Feb, [facility] [place] [facility] [address] [id number] [place] [address] 7649 Feb, [facility] [place] [facility] [address] [id number], [place] [address] Feb, [facility] [place] [facility] [address] [id number], [place] [address] Feb, [facility] [place] [facility] [address] [id number] [place] [address]- 3346 Feb, [facility] [place] [facility] [address] [id number], [place] [address] 7036 30 Jan, 2014 [facility] [place] [facility] [address] [id number] [place] [address]- 6190 30 Jan, 2014 [facility] [place] [facility] [address] [id number] [place] [address]- 9460 24 Sep, 2013 [facility] [place] [facility] [address] [id number] [place] [address]- 5676 24 Jan, 2013 [facility] [place] [facility] [address] [id number] [place] [address]- 2546 19 Jan, 2013 [facility] [place] [facility] [address] [id number] [place] [address] 2546 19 Jan, 2013 [facility] [place] [facility] [address] [id number] [place] [address]- 2548 16 Jan, 2013 [facility] [place] [facility] [address] [id number] [place] [address]- 7596 16 Jan, 2013 [facility] [place] [facility] [address] [id number] [place] [address]- 5578 16 Jan, 2013 [facility] [place] [facility] [address] [id number] [place] [address]- 7155 16 Jan, 2013 [facility] [place] [facility] [address] [id number] [place] [address]- 6419 12 Jan, 2013 [facility] [place] [facility] [address] [id number] [place] [address]- 3603 12 Jan, 2013 [facility] [place] [facility] [address] [id number] [place] [address]- 4221 Dec, [facility] [place] [facility] [address] [id number] [place] [address]- 254 Dec, [facility] [place] [facility] [address] [id number] [place] [address]- 2543 Dec, [facility] [place] [facility] [address] [id number] [place] [address]- 1187 Dec, [facility] [place] [facility] [address] [id number] [place] [address]- 9587 Dec, [facility] [place] [facility] [address] [id number] [place] [address]- 6066 Dec, [facility] [place] [facility] [address] [id number] [place] [address]- 2552 Nov, [facility] [place] [facility] [address] [id number] [place] [address]- 7989 Nov, [facility] [place] [facility] [address] [id number] [place] [address]- 6618 Nov, [facility] [place] [facility] [address] [id number] [place] [address]- 6678 Nov, [facility] [place] [facility] [address] [id number] [place] [address]- 2425 Nov, [facility] [place] [facility] [address] [id number] [place] [address]- 9623 Nov, [facility] [place] [facility] [address] [id number] [place] [address]- 8649 Nov, [facility] [place] [facility] [address] [id number] [place] [address]- 3205 Nov, [facility] [place] [facility] [address] [id number] [place] [address]- 0386 Oct, [facility] [place] [facility] [address] [id number] [place] [address]- 9095 Oct, [facility] [place] [facility] [address] [id number] [place] [address]- 9893 Oct, [facility] [place] [facility] [address] [id number] [place] [address]- 4152 Oct, [facility] [place] [facility] [address] [id number] [place] [address]- 1288 September, [facility] [place] [facility] [address] [id number] [place] [address]- 5559 September, [facility] [place] [facility] [address] [id number] [place] [address] September, [facility] [place] [facility] [address] [id number] [place] [address]- 2805 September, [facility] [address] [id number] [place] [address]- 7671 September, [facility] [place] [facility] [address] [id number] [place] [address]- 7185 September, [facility] [place] [facility] [address] [id number] [place] [address]- 1456 Aug, [facility] [place] [facility] [address] [id number] [place] [address]- 7075 Aug, [facility] [place] [facility] [address] [id number] [place] [address]- 2418 Aug, [facility] [place] [facility] [address] [id number] [place] [address]- 0606 Aug, [facility] [place] [facility] [address] [id number] [place] [address]- 0950 Aug, [facility] [place] [facility] [address] [id number] [place] [address]- 3891 Aug, [facility] [place] [facility] [address] [id number] [place] [address]- 2163 Aug, [facility] [place] [facility] [address] [id number] [place] [address]- 2678 Aug, [facility] [place] [facility] [address] [id number] [place] [address]- 8050 Jul, [facility] [place] [facility] [address] [id number] [place] [address]- 4945 Jul, [facility] [place] [facility] [address] [id number] [place] [address]- 4173 Jun, [facility] [place] [facility] [address] [id number] [place] [address]- 2646 Jun, [facility] [place] [facility] [address] [id number] [place] [address]- 7439 Jun, [facility] [place] [facility] [address] [id number] [place] [address]- 2141 Jun, [facility] [place] [facility] [address] [id number] [place] [address]- 8554 Jun, [facility] [place] [facility] [address] [id number] [place] [address]- 5263 May, [facility] [place] [facility] [address] [id number] [place] [address]- 5047 May, [facility] [place] [facility] [address] [id number] [place] [address]- 2077 May, [facility] [place] [facility] [address] [id number] [place] [address]- 2436 May, [facility] [place] [facility] [address] [id number] [place] [address]- 4154 Apr, [facility] [place] [facility] [address] [id number] [place] [address]- 5871 Apr, [facility] [place] [facility] [address] [id number] [place] [address]- 2961 Mar, [facility] [place] [facility] [address] [id number] [place] [address]- 4402 Mar, [facility] [place] [facility] [address] [id number] [place] [address]- 3830 Feb, [facility] [place] [facility] [address] [id number], [place] [address]- 2617 Feb, [facility] [place] [facility] [address] [id number] [place] [address]- 9498 Feb, [facility] [place] [facility] [address] [id number] [place] [address]- 0748 Feb, [facility] [place] [facility] [address] [id number], [place] [address]- 8258 Feb, [facility] [place] [facility] [address] [id number], [place] [address]- 3298 Feb, [facility] [place] [facility] [address] [id number] [place] [address]- 0389 Feb, [facility] [place] [facility] [address] [id number] [place] [address]- 2061 Jan, [facility] [place] [facility] [address] [id number] [place] [address]- 7247 Jan, [facility] [place] [facility] [address] [id number] [place] [address]- 7436 Dec, [facility] [place] [facility] [address] [id number] [place] [address]- 4631 Dec, [facility] [place] [facility] [address] [id number] [place] [address]- 9767 Dec, [facility] [place] [facility] [address] [id number] [place] [address]- 7679 Dec, [facility] [place] [facility] [address] [id number] [place] [address]- 8825 Dec, [facility] [place] [facility] [address] [id number] [place] [address]- 8927 Nov, [facility] [place] [facility] [address] [id number] [place] [address]- 4001 Nov, [facility] [place] [facility] [address] [id number] [place] [address]- 7212 Nov, [facility] [place] [facility] [address] [id number] [place] [address]- 0620 Oct, [facility] [place] [facility] [address] [id number] [place] [address]- 3210 Oct, [facility] [place] [facility] [address] [id number] [place] [address]- 2888 Oct, [facility] [place] [facility] [address] [id number] [place] [address]- 2418 September, [facility] [place] [facility] [address] [id number] [place] [address] 2546 09 Aug, 2012 [facility] [address] [id number] [place] [address]- 1375 Aug, [facility] [place] [facility] [address] [id number] [place] [address]- 2546 Aug, [facility] [address] [id number] [place] [address]- 8316 Jul, [facility] [place] [facility] [address] [id number] [place] [address]- 5592 Jul, [facility] [address] [id number] [place] [address]- 3896 Jul, [facility] [address] [id number] [place] [address]- 2446 Jul, [facility] [address] [id number] [place] [address]- 9296 Jul, [facility] [address] [id number] [place] [address]- 0486 Jun, [facility] [address] [id number] [place] [address]- 1486 Jun, [facility] [address] [id number] [place] [address]- 3309 May, [facility] [address] [id number] [place] [address]- 9166 May, [facility] [address] [id number] [place] [address]- 0467 Apr, [facility] [place] [facility] [address] [id number] [place] [address]- 2366 Apr, [facility] [place] [facility] [address] [id number] [place] [address]- 4016 Mar, [facility] [address] [id number] [place] [address]- 4332 Mar, [facility] [place] [facility] [address] [id number] [place] [address]- 7830 Mar, [facility] [place] [facility] [address] [facility]] [id number] [place] [address]- 1116 Mar, [facility] [address] [id number] [id number] Feb, [facility] [place] [facility] [address] [id number] [place] [address]- 3952 Feb, [facility] [place] [facility] [address] [id number] [place] [address]- 4036 Feb, [facility] [place] [facility] [address] [id number] [place] [address]- 5137 Feb, [facility] [place] [facility] [address] [facility]] [id number] [place] [address]- 1213 Feb, [facility] [place] [facility] [address] [facility]] [id number], [place] [address]- 7415 Feb, [facility] [place] [facility] [address] [facility]] [id number] [place] [address]- 5732 Feb, [facility] [place] [facility] [address] [facility]] [id number], [place] [address]- 5388 Jan, [facility] [place] [facility] [address] [facility]NOTE [facility]] [id number], [place] [address]- 1416 Jan, [facility] [place] [facility] [address] [id number], [place] [address]- 7026 Dec, [facility] [place] [facility] [address] [facility]] [id number], [place] [address]- 5396 Dec, [facility] [place] [facility] [address] [facility]] [id number], [place] [address]- 8536 Nov, [facility] [place] [facility] [address] [facility]NOTE 3] [id number], [place] [address]- 4726 Oct, [facility] [place] [facility] [address] [facility]NOTE 3] [id number], [place] [address]- 2966 September, [facility] [address] [id number] [place] [address]- 1461 September, [facility] [place] [facility] [address] [id number] [place] [address]- 2918 September, [facility] [address] [facility] 3] [id number] [place] [address]- 3925 Aug, [facility] [place] [facility] [address] [id number] [place] [address]- 1380 May, [facility] [address] [id number] [place] [address]- 7766 May, [facility] [place] [facility] [address] [id number] [place] [address]- 0037 Apr, [facility] [address] [facility]NOTE 3] [id number] [place] [address]- 8309 Apr, [facility] [place] [facility] [address] [facility] 3] [id number] [place] [address]- 6881 Apr, [facility] [address] [facility]NOTE 3] [id number] [place] [address]- 1004 Apr, [facility] [place] [facility] [address] [facility]NOTE 3] [id number] [place] [address]- 8906 Apr, [facility] [place] [facility] [address] [facility]NOTE 3] [id number], [place] [address]- 7504 Mar, [facility] [place] [facility] [address] [id number], [place] [address]- 8254 Feb, [facility] [place] [facility] [address] [id number] [place] [address]- 4915 Feb, [facility] [place] [facility] [address] [facility]NOTE 3] [id number] [place] [address]- 6143 September, [facility] [place] [facility] [address] [facility]NOTE 3] [id number] [place] [address]- 2826 Mar, [facility] [place] [facility] [address] [facility]NOTE 3] [id number] [place] [address]- 7995 14 Feb, 2010 [facility] [address] [facility]NOTE 3] [id number] [place] [address]- 8103 11 Feb, 2010 [facility] [address] [facility]NOTE 3] [id number] [place] [address]- 5665 11 Feb, 2010 IMMUNIZATIONS Vaccine Route Administration Date Status FLUARIX QUAD (3 AND UP) 2016 IM Intramuscular Mar 14, 2017 Administered SOCIAL HISTORY Never Assessed REASON FOR VISIT Flu shot---[place],CCMA PLAN OF CARE VITAL SIGNS MEDICATIONS Unknown Medications RESULTS No Results PROCEDURES Procedure Date Ordered Result Body Site FLUARIX QUAD (3 AND UP) 2017 Mar 14, 2017 SINGLE IMMUNIZATION ADMIN Mar 14, 2017 INSTRUCTIONS MEDICATIONS ADMINISTERED No Known Medications [...] foot fracture Hospitalization History [facility]- Back Pain 03/24/2017
--- OUTSIDE RECORDS SUMMARY | 2018-04-10 18:09 | XMS REPORT ---
Author Author GELY SHAY Organization [facility] Address [address] [place] [address] Care Team Providers Care [place] Operator Name Role Phone GELYGLORIASHAY Unavailable PROBLEMS Type Condition ICD9-CM Code BUQ89-MP Code Onset Dates Condition Status SNOMED Code Problem Color blindness H53.50 Active 365346876 Problem Presbyopia of both eyes H52.4 Active 50080274 Problem Nuclear senile cataract of both eyes H25.13 Active 175405635 Problem Astigmatism of both eyes, unspecified type H52.203 Active 71582357 Problem Overactive bladder N32.81 Active 812237690 Problem Essential hypertension I10 Active 81790701 Problem Other chronic pain G89.29 Active 87389905 Problem Hypermetropia of both eyes H52.03 Active 94120722 Problem Alzheimer's disease, unspecified G30.9 Active 325478476 Problem Mild episode of recurrent major depressive disorder F33.0 Active 250134967 Problem 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 Active 198253759 Problem Major depressive disorder, single episode, mild F32.0 Active 10055194 Problem Chronic fatigue R53.82 Active 79720500 Problem Hydrocele, unspecified hydrocele type N43.3 Active 42709811 Problem Other acute pulmonary embolism without acute cor pulmonale I26.99 Active 738779470 Problem 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 Active 190040833 Problem Asymptomatic microscopic hematuria R31.21 Active 081276786 Problem Gait instability R26.81 Active 43783152 Problem PVD (peripheral vascular disease) I73.9 Active 996847525 Problem At high risk for falls Z91.81 Active [id number] Problem 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 Active 06638731 Problem Benign non-nodular prostatic hyperplasia with lower urinary tract symptoms N40.1 Active 581789682 Problem Alzheimers disease with late onset G30.1 Active 909051999 Problem Renal cyst, left Q61.00 Active 30222568 Problem Mixed hyperlipidemia E78.2 Active 304474063 Problem Anxiety F41.9 Active 81979960 Problem Transient cerebral ischemia, unspecified transient cerebral ischemia type G45.9 Active 051461272 Problem Primary insomnia F51.01 Active 283209076 ALLERGIES No Information ENCOUNTERS Encounter Location Date Diagnosis [place] [id number] [place] [address] 30987- 6831 Dec, [place] [address] 75971- 1374 September, Alzheimers disease with late onset G30.1 and Mild episode of recurrent major depressive disorder F33.0 [place] [address] 36515- 0652 September, PVD (peripheral vascular disease) I73.9 ; Major depressive disorder, single episode, mild F32.0 ; Chronic fatigue R53.82 ; Weight gain R63.5 and Arthralgia, unspecified joint M25.50 [place] [id number] [place] [address] 71941- 5442 Aug, Acute low back pain, unspecified back pain laterality, with sciatica presence unspecified M54.5 [place] [id number] [place] [address] 65188- 4855 Aug, Acute low back pain, unspecified back pain laterality, with sciatica presence unspecified M54.5 [place] [id number] [place] [address] 03904- 4150 Aug, Pain R52 [place] [id number] [place] [address] 23798- 0448 Jul, [place] [address] 37550- 5734 Jun, [place] [id number] [place] [address] 80340- 7268 07 Jun, 2017 Medicare annual wellness visit, initial Z00.00 ; Mixed hyperlipidemia E78.2 ; Essential hypertension I10 ; Anxiety F41.9 ; Alzheimers disease with late onset G30.1 ; 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 ; Overactive bladder N32.81 ; Primary insomnia F51.01 ; At high risk for falls Z91.81 and Encounter for immunization Z23 [facility] [id number] [place] [address] 74119- 6715 May, [facility] [address] 70160- 2076 May, Essential hypertension I10 and Transient cerebral ischemia, unspecified transient cerebral ischemia type G45.9 [facility] [address] [id number] May, Dental examination Z01.20 and Dental caries K02.9 [place] [address] 27020- 9101 May, [place] [address] 30131- 8630 May, [place] [id number] [place] [address] 61960- 0411 May, Alzheimers disease with late onset G30.1 [place] [id number] [place] [address] 77362- 9894 Apr, [place] [id number] [place] [address] 44248- 6760 Apr, Alzheimers disease with late onset G30.1 and Mild episode of recurrent major depressive disorder F33.0 [place] [id number] [place] [address] 04949- 6681 Mar, Mild episode of recurrent major depressive disorder F33.0 [place] [id number] [place] [address] 78532- 7961 Mar, Mixed hyperlipidemia E78.2 ; Essential hypertension I10 ; Asymptomatic microscopic hematuria R31.21 and Renal cyst, left Q61.00 [place] [address] [place] [address]- 8647 Mar, [facility] [id number] [place] [address] 81204- 7939 Feb, Encounter for immunization Z23 [facility] [id number] [place] [address] 96862- 2731 Feb, [facility] [id number] [place] [address] 84198- 2426 Feb, [facility] [id number] [place] [address] 85238 -5720 Feb, ANUG (acute necrotizing ulcerative gingivitis) A69.1 [facility] [id number] [place] [address] 49222- 5092 Feb, [facility] [id number] [place] [address] 31627- 4151 Feb, Mild episode of recurrent major depressive disorder F33.0 [facility] [id number] [place] [address] 25176- 1857 Feb, Alzheimers disease with late onset G30.1 and Mild episode of recurrent major depressive disorder F33.0 [facility] [id number] [place] [address] 03259- 7438 Jan, Alzheimers disease with late onset G30.1 [facility] [address] [address]- 4695 Jan, Gait instability R26.81 [facility] [address] [id number] [place] [address] Jan [facility] [address] [id number] [place] [address] Dec [facility] [address] [address]- 5573 Dec, [facility] [id number] [place] [address] 23122- 6102 Dec, [place] [address] [facility] [id number] [address] Dec, Essential hypertension I10 ; Transient cerebral ischemia, unspecified transient cerebral ischemia type G45.9 and Anxiety F41.9 [facility] [address] [facility] [id number] [place] [address] 20640 2546 Dec, Gait instability R26.81 [facility] [address] [facility] [id number] [place] [address] 23653 2546 Dec, [facility] [address] [facility] [id number] [place] [address] 05523 2543 Nov, Alzheimers disease with late onset G30.1 and Mild episode of recurrent major depressive disorder F33.0 [facility] [id number] [place] [address] 57543- 5266 Nov, [facility] [id number] [place] [address] 28619- 0896 Nov, Gait instability R26.81 [facility] [address] [facility] [id number] [place] [address] 88126 2543 Nov, Anxiety F41.9 [facility] [address] [facility] [id number] [place] [address] 75312 2546 Nov, [facility] [id number] [place] [address] 17757 2546 Nov, [facility] [address] [facility] [id number] [place] [address] 00814 2546 Oct, Gait instability R26.81 [facility] [address] [facility] [id number] [place] [address] 82547 2546 Oct, Anxiety F41.9 [facility] [address] [facility] [id number] [place] [address] 36023 2543 Oct, Gait instability R26.81 [facility] [address] [facility] [id number] [address] 2546 Oct, Gait instability R26.81 [facility] [address] [address]- 4130 Oct, [facility] [id number] [place] [address] 49197- 0266 Oct, Anxiety F41.9 ; Chronic 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 use Z79.899 ; Encounter for immunization Z23 and Transient cerebral ischemia, unspecified transient cerebral ischemia type G45.9 [facility] [id number] [address]- 6577 September, [facility] [id number] [address]- 5536 September, Gait instability R26.81 [facility] [id number] [address]- 7884 September, [facility] [id number] [address]- 2204 September, [facility] [id number] [address]- 3972 September, [facility] [address] [address]- 1440 September, Alzheimers disease with late onset G30.1 and Mild episode of recurrent major depressive disorder F33.0 [facility] [address] [address]- 6911 September, [facility] [address] [address]- 9995 September, [facility] [address] [address]- 6078 September, [facility] [id number] [address]- 3901 September, Mild episode of recurrent major depressive disorder F33.0 [facility] [address] [address]- 5503 Aug, Mild episode of recurrent major depressive disorder F33.0 ; Alzheimers disease with late onset G30.1 ; Other acute pulmonary embolism without acute cor pulmonale I26.99 and Cough R05 [facility] [id number] [place] [address] 69143- 8855 Aug, [facility] [id number] [place] [address] 63180- 2619 Aug, Gait instability R26.81 [facility] [address] 91841- 8205 Aug, Alzheimers disease with late onset G30.1 and Mild episode of recurrent major depressive disorder F33.0 [facility] [address] 71426- 0379 Aug, [place] [id number] [place] [address] 17586- 0434 Aug, 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 [facility] [id number] [place] [address] 86485- 4860 Jul, Alzheimers disease with late onset G30.1 [facility] [id number] [place] [address] 24643- 2951 Jul, [place] [id number] [place] [address] 95451- 3426 Jul, 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 [facility] [id number] [place] [address] 90968- 0340 Jul, Anxiety F41.9 ; Alzheimers disease with late onset G30.1 and Transient cerebral ischemia, unspecified transient cerebral ischemia type G45.9 [facility] [id number] [place] [address] 89798- 2033 Jun, Essential hypertension I10 [facility] [id number] [place] [address] 98939- 7334 Jun, [facility] [address] [place] [address]- 5402 Jun, [facility] [id number] [place] [address] 50539- 0999 Jun, [facility] [id number] [place] [address] 57007- 3081 Jun, Essential hypertension I10 ; Benign non-nodular prostatic hyperplasia with lower urinary tract symptoms N40.1 ; Anxiety F41.9 ; Pain in right knee M25.561 ; Pain in left knee M25.562 and Other chronic pain G89.29 [facility] [id number] [place] [address] 63942- 4368 May, [facility] [id number] [place] [address] 90567- 4985 May, [facility] [id number] [place] [address] 37065- 4619 May, [facility] [id number] [place] [address] 72888- 4756 Apr, [facility] [id number] [place] [address] 53056- 7437 Mar, [facility] [id number] [place] [address] 08691- 8915 Mar, Mixed hyperlipidemia E78.2 and Essential hypertension I10 [facility] [id number] [place] [address] 37948- 7931 Feb, [facility] [id number] [place] [address] 83936- 7170 Feb, Ingrown nail L60.0 and Onychomycosis B35.1 [facility] [id number] [place] [address] 82613- 6770 Feb, Paronychia, left L03.012 [facility] [id number] [place] [address] 06510- 8412 Jan, [facility] [id number] [address]- 2676 07 Jan, 2016 Cramps of right lower extremity R25.2 and Mixed hyperlipidemia E78.2 [facility] [address] [place] [address] 07321- 4737 Jan, Cramps of right lower extremity R25.2 ; Essential hypertension I10 ; Mixed hyperlipidemia E78.2 ; Chronic 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 use Z79.899 and Claudication I73.9 [facility] [id number] [place] [address] 44649- 6976 Jan, Right leg pain M79.604 [facility] [id number] [place] [address] 81109- 2066 Dec, [facility] [id number] [place] [address] 62162- 6915 Nov, [facility] [id number] [place] [address] 49578- 4171 Nov, [facility] [address] [place] [address] 20405- 6173 Nov, [facility] [id number] [place] [address] 96604- 1541 Nov, Dermatofibroma D23.9 [facility] [id number] [place] [address] 09469- 2549 Nov, [facility] [id number] [place] [address] 61151- 7145 Oct, [facility] [address] [place] [address] 76577- 9639 Oct, [facility] [id number] [place] [address] 73030- 9077 September, Benign non-nodular prostatic hyperplasia with lower urinary tract symptoms N40.1 ; Essential hypertension I10 ; Overactive bladder N32.81 and Fatigue, unspecified type R53.83 [facility] [id number] [address]- 6360 September, [facility] [id number] [place] [address] 45983- 9106 September, [facility] [address] [address]- 7236 Aug, [facility] [id number] [place] [address] 27710- 8124 Jul, [facility] [id number] [place] [address] 934258- 4226 Jul, Pelvic pain R10.2 ; Jock itch B35.6 ; Essential hypertension I10 and Hydrocele, unspecified hydrocele type N43.3 [facility] [address] [address]- 5415 Jun, [facility] [id number] [place] [address] 655310- 5131 Jun, [facility] [address] 1027 Jun, Benign non-nodular prostatic hyperplasia with lower urinary tract symptoms N40.1 [facility] [address] 4039 Jun, Benign non-nodular prostatic hyperplasia with lower urinary tract symptoms N40.1 [facility] [address] [address]- 0806 Jun, [facility] [address] [address]- 7795 May, [facility] [id number] [address]- 2493 Apr, [facility] [address] 4366 Apr, [facility] [address] [address]- 7944 Apr, Other acute pulmonary embolism without acute cor pulmonale I26.99 ; Anxiety F41.9 ; 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 and ferry 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 use Z79.899 [facility] [id number] [place] [address] 22197- 3610 Apr, [facility] [id number] [place] [address] 92594- 6704 Apr, [facility] [address] 98861- 2949 Mar, [facility] [address] 07767- 9447 Mar, [facility] [address] 85429- 7688 Feb, Cough R05 [facility] [address] 57251- 0606 Feb, [facility] [id number] [place] [address] 96467- 9343 Feb, Encounter for immunization Z23 [facility] [address] 56074- 2596 Feb, Other and unspecified hyperlipidemia 272.4 [facility] [id number] [place] [address] 62789- 0704 Jan, [facility] [id number] [place] [address] 97327- 8025 Jan, TIA (transient ischemic attack) 435.9 [facility] [id number] [place] [address] 49381- 3726 Dec, [facility] [address] 85692- 2242 Dec, [facility] [id number] [place] [address] 64162- 4473 Dec, [facility] [address] [place] [address]- 0663 Nov, [facility] [address] [place] [address] 71655- 8360 Oct, Chronic cough 786.2 [facility] [address] [address]- 3025 Oct, [facility] [id number] [place] [address] 55434- 8420 Oct, [facility] [id number] [place] [address] 69929- 9659 Oct, [facility] [id number] [place] [address] 85034- 0991 Oct, [facility] [address] [place] [address] 97374- 6748 Oct, Chronic cough 786.2 [facility] [id number] [place] [address] 26117- 5828 Oct, Cough 786.2 ; Hypertension 401.9 ; BPH (benign prostatic hyperplasia) 600.00 ; Other and unspecified hyperlipidemia 272.4 and Hydrocele 603.9 [facility] [address] [address]- 5302 Oct, [facility] [address] [address]- 7623 September, [facility] [address] [address]- 1415 Aug, [facility] [address] [address]- 2388 Aug, [facility] [id number] [place] [address] 23847- 3611 Jul, [facility] [address] [address]- 3569 Jul, [facility] [id number] [place] [address] 75269- 3276 Jul, [facility] [place] [facility] [address] [id number] [place] [address]- 0348 Jul, [facility] [place] [facility] [address] [id number] [place] [address]- 3831 Jul, [facility] [place] [facility] [address] [id number] [place] [address]- 9268 Jun, 2014 [facility] [place] [facility] [address] [id number] [place] [address]- 8062 Jun, 2014 [facility] [place] [facility] [address] [id number] [place] [address]- 0597 Jun, 2014 [facility] [place] [facility] [address] [id number] [place] [address]- 3701 Jun, 2014 [facility] [place] [facility] [address] [id number] [place] [address]- 3049 Jun, 2014 [facility] [place] [facility] [address] [id number] [place] [address]- 2090 Jun, [facility] [place] [facility] [address] [id number] [place] [address]- 2182 Jun, [facility] [place] [facility] [address] [facility] [id number] [place] [address]- 7932 Jun, [facility] [place] [facility] [address] [id number] [place] [address]- 0374 May, [facility] [place] [facility] [address] [id number] [place] [address]- 1819 May, [facility] [place] [facility] [address] [id number] [place] [address]- 5813 May, [facility] [place] [facility] [address] [id number] [place] [address]- 0940 May, [facility] [place] [facility] [address] [id number] [place] [address]- 6933 May, [facility] [place] [facility] [address] [id number] [place] [address]- 0824 May, [facility] [place] [facility] [address] [id number] [place] [address]- 7045 May, [facility] [place] [facility] [address] [id number] [place] [address]- 4630 May, [facility] [place] [facility] [address] [id number] [place] [address]- 3077 May, [facility] [address] [id number] [place] [address]- 8148 May, [facility] [place] [facility] [address] [id number] [place] [address]- 6498 Apr, [facility] [address] [id number] [place] [address]- 5124 Apr, [facility] [address] [id number] [place] [address] Apr, [facility] [place] [facility] [address] [id number] [place] [address] Apr, [facility] [place] [facility] [address] [id number] [place] [address] Apr, [facility] [place] [facility] [address] [id number] [place] [address] Apr, [facility] [place] [facility] [address] [id number] [place] [address] Apr, [facility] [place] [facility] [address] [id number] [place] [address] Apr, [facility] [place] [facility] [address] [id number] [place] [address] Mar, [facility] [place] [facility] [address] [id number] [place] [address] Mar, [facility] [place] [facility] [address] [id number] [address] Mar, [facility] [place] [facility] [address] [id number] [place] [address] Mar, [facility] [place] [facility] [address] [id number] [place] [address] Mar, [facility] [place] [facility] [address] [id number] [place] [address] Mar, [facility] [place] [facility] [address] [id number] [place] [address] Mar, [facility] [place] [facility] [address] [id number] [place] [address] Mar, [facility] [place] [facility] [address] [id number] [place] [address]- [address] Mar, [facility] [place] [facility] [address] [id number] [place] [address] Mar, [facility] [place] [facility] [address] [id number] [place] [address] Feb, [facility] [place] [facility] [address] [id number] [place] [address] Feb, [facility] [place] [facility] [address] [id number] [place] [address] Feb, [facility] [place] [facility] [address] [id number] [address] Feb, [facility] [place] [facility] [address] [id number] [address] 94[address] Feb, [facility] [place] [facility] [address] [id number] [place] [address] 8088 Feb, [facility] [place] [facility] [address] [id number] [address] 30 Jan, 2014 [facility] [place] [facility] [address] [id number] [place] [address] 30 Jan, 2014 [facility] [place] [facility] [address] [id number] [place] [address] 3303 24 Sep, 2013 [facility] [place] [facility] [address] [id number] [place] [address]- 8926 24 Jan, 2013 [facility] [place] [facility] [address] [id number] [place] [address]- 2546 19 Jan, 2013 [facility] [place] [facility] [address] [id number] [place] [address] 2546 19 Jan, 2013 [facility] [place] [facility] [address] [id number] [place] [address]- 2543 16 Jan, 2013 [facility] [place] [facility] [address] [id number] [place] [address] 6436 16 Jan, 2013 [facility] [place] [facility] [address] [id number] [place] [address]- 6981 16 Jan, 2013 [facility] [place] [facility] [address] [id number] [place] [address]- 2992 16 Jan, 2013 [facility] [place] [facility] [address] [id number] [place] [address] 1611 12 Jan, 2013 [facility] [place] [facility] [address] [id number] [place] [address] 6369 12 Jan, 2013 [facility] [place] [facility] [address] [id number] [place] [address] 8597 Dec, [facility] [place] [facility] [address] [id number] [place] [address]- 2541 Dec, [facility] [place] [facility] [address] [id number] [place] [address]- 2540 Dec, [facility] [place] [facility] [address] [id number] [place] [address] 1942 Dec, [facility] [place] [facility] [address] [id number] [place] [address] 8274 Dec, [facility] [place] [facility] [address] [id number] [place] [address]- 1681 Dec, [facility] [place] [facility] [address] [id number] [place] [address] 0200 Nov, [facility] [place] [facility] [address] [id number] [place] [address]- 7080 Nov, [facility] [place] [facility] [address] [id number] [place] [address]- 2319 Nov, [facility] [place] [facility] [address] [id number] [place] [address]- 0361 Nov, [facility] [place] [facility] [address] [id number] [place] [address]- 0861 Nov, [facility] [place] [facility] [address] [id number] [place] [address]- 0767 Nov, [facility] [place] [facility] [address] [id number] [place] [address]- 0310 Nov, [facility] [place] [facility] [address] [id number] [place] [address]- 0306 Nov, [facility] [place] [facility] [address] [id number] [place] [address]- 9206 Oct, [facility] [place] [facility] [address] [id number] [place] [address]- 4280 Oct, [facility] [place] [facility] [address] [id number] [place] [address]- 2410 Oct, [facility] [place] [facility] [address] [id number] [place] [address]- 6857 Oct, [facility] [place] [facility] [address] [id number] [place] [address] 3323 September, [facility] [place] [facility] [address] [id number] [place] [address]- 0700 September, [facility] [place] [facility] [address] [id number] [place] [address] September, [facility] [place] [facility] [address] [id number] [place] [address]- 4503 September, [facility] [address] [id number] [place] [address]- 0408 September, [facility] [place] [facility] [address] [id number] [place] [address]- 5609 September, [facility] [place] [facility] [address] [id number] [place] [address]- 6757 Aug, [facility] [place] [facility] [address] [id number] [place] [address]- 0514 Aug, [facility] [place] [facility] [address] [id number] [place] [address]- 6790 Aug, [facility] [place] [facility] [address] [id number] [place] [address]- 6325 Aug, [facility] [place] [facility] [address] [id number] [place] [address]- 4146 Aug, [facility] [place] [facility] [address] [id number] [place] [address]- 1134 Aug, [facility] [place] [facility] [address] [id number] [place] [address]- 3835 Aug, [facility] [place] [facility] [address] [id number] [place] [address]- 5178 Aug, [facility] [place] [facility] [address] [id number] [place] [address]- 0054 Jul, [facility] [place] [facility] [address] [id number] [place] [address]- 9542 Jul, [facility] [place] [facility] [address] [id number] [place] [address]- 4879 Jun, [facility] [place] [facility] [address] [id number] [place] [address]- 3606 Jun, [facility] [place] [facility] [address] [id number] [place] [address]- 6041 Jun, [facility] [place] [facility] [address] [id number] [place] [address]- 1046 Jun, [facility] [place] [facility] [address] [id number] [place] [address]- 5941 Jun, [facility] [place] [facility] [address] [id number] [place] [address]- 6269 May, [facility] [place] [facility] [address] [id number] [place] [address]- 2590 May, [facility] [place] [facility] [address] [id number] [place] [address]- 6284 May, [facility] [place] [facility] [address] [id number] [place] [address]- 2229 May, [facility] [place] [facility] [address] [id number] [place] [address]- 3703 Apr, [facility] [place] [facility] [address] [id number] [place] [address]- 7395 Apr, [facility] [place] [facility] [address] [id number] [place] [address] 6306 Mar, [facility] [place] [facility] [address] [id number] [place] [address]- 2721 Mar, [facility] [place] [facility] [address] [id number] [place] [address]- 2391 Feb, [facility] [place] [facility] [address] [id number], [place] [address] 2941 Feb, [facility] [place] [facility] [address] [id number] [place] [address]- 8315 Feb, [facility] [place] [facility] [address] [id number] [place] [address]- 0291 Feb, [facility] [place] [facility] [address] [id number] [address]- 6880 Feb, [facility] [place] [facility] [address] [id number] [address]- 6452 Feb, [facility] [place] [facility] [address] [id number] [place] [address]- 3418 Feb, [facility] [place] [facility] [address] [id number] [place] [address]- 0239 Jan, [facility] [place] [facility] [address] [id number] [place] [address]- 7434 Jan, [facility] [place] [facility] [address] [id number] [place] [address]- 5510 Dec, [facility] [place] [facility] [address] [id number] [place] [address]- 7233 Dec, [facility] [place] [facility] [address] [id number] [place] [address]- 9440 Dec, [facility] [place] [facility] [address] [id number] [place] [address]- 8588 Dec, [facility] [place] [facility] [address] [id number] [place] [address]- 3654 Dec, [facility] [place] [facility] [address] [id number] [place] [address]- 9056 Nov, [facility] [place] [facility] [address] [id number] [place] [address]- 0313 Nov, [facility] [place] [facility] [address] [id number] [place] [address]- 9943 Nov, [facility] [place] [facility] [address] [id number] [place] [address]- 0523 Oct, [facility] [place] [facility] [address] [id number] [place] [address]- 0807 Oct, [facility] [place] [facility] [address] [id number] [place] [address]- 6667 Oct, [facility] [place] [facility] [address] [id number] [place] [address]- 0141 September, [facility] [place] [facility] [address] [id number] [place] [address] 2546 09 Aug, 2012 [facility] [address] [id number] [place] [address]- 2621 Aug, [facility] [place] [facility] [address] [id number] [place] [address]- 2546 Aug, [facility] [address] [id number] [place] [address]- 0176 Jul, [facility] [place] [facility] [address] [id number] [place] [address]- 6650 Jul, [facility] [address] [id number] [place] [address]- 8446 Jul, [facility] [address] [id number] [place] [address]- 0316 Jul, [facility] [address] [id number] [place] [address]- 4696 Jul, [facility] [address] [id number] [place] [address]- 7410 Jun, [facility] [address] [id number] [place] [address]- 7566 Jun, [facility] [address] [id number] [place] [address]- 0884 May, [facility] [address] [id number] [place] [address]- 4036 May, [facility] [address] [id number] [place] [address]- 7911 Apr, [facility] [place] [facility] [address] [id number] [place] [address]- 7226 Apr, [facility] [place] [facility] [address] [id number] [place] [address]- 8336 Mar, [facility] [address] [id number] [place] [address] 3798 Mar, [facility] [place] [facility] [address] [id number] [place] [address]- 4775 Mar, [facility] [place] [facility] [address] [facility] [id number] [place] [address]- 2276 Mar, [facility] [address] [id number] [id number] Feb, [facility] [place] [facility] [address] [id number] [place] [address]- 9086 Feb, [facility] [place] [facility] [address] [id number] [place] [address]- 3582 Feb, [facility] [place] [facility] [address] [id number] [place] [address]- 4992 Feb, [facility] [place] [facility] [address] [facility] [id number] [place] [address]- 0784 Feb, [facility] [place] [facility] [address] [facility] [id number] [address]- 3428 Feb, [facility] [place] [facility] [address] [facility] [id number] [place] [address]- 6869 Feb, [facility] [place] [facility] [address] [facility] [id number] [address]- 1935 Jan, [facility] [place] [facility] [address] [facility] [id number] [address]- 1646 Jan, [facility] [place] [facility] [address] [id number], [place] [address]- 5586 Dec, [facility] [place] [facility] [address] [facility] [id number] [address]- 2316 Dec, [facility] [place] [facility] [address] [facility] [id number] [address]- 2246 Nov, [facility] [place] [facility] [address] [facility] [id number], [place] [address]- 7766 Oct, [facility] [place] [facility] [address] [facility] [id number] [address]- 2041 September, [facility] [address] [id number] [place] [address]- 5498 September, [facility] [place] [facility] [address] [id number] [place] [address]- 6894 September, [facility] [address] [facility] [id number] [place] [address]- 8650 Aug, [facility] [place] [facility] [address] [id number] [place] [address]- 8367 May, [facility] [address] [id number] [place] [address]- 1194 May, [facility] [place] [facility] [address] [id number] [place] [address]- 3754 Apr, [facility] [address] [facility] [id number] [place] [address]- 5730 Apr, [facility] [place] [facility] [address] [facility] [id number] [place] [address]- 1071 Apr, [facility] [address] [facility] [id number] [place] [address]- 6764 Apr, [facility] [place] [facility] [address] [facility] [id number] [place] [address]- 1435 Apr, [facility] [place] [facility] [address] [facility] [id number] [address]- 0346 Mar, [facility] [place] [facility] [address] [id number] [address]- 6906 Feb, [facility] [place] [facility] [address] [id number] [place] [address]- 2814 Feb, [facility] [place] [facility] [address] [facility] [id number] [place] [address]- 2203 September, [facility] [place] [facility] [address] [facility] [id number] [place] [address]- 3136 Mar, [facility] [place] [facility] [address] [facility] [id number] [place] [address]- 2034 14 Feb, 2010 [facility] [address] [facility] [id number] [place] [address]- 2027 11 Feb, 2010 [facility] [address] [facility] [id number] [place] [address]- 4161 11 Feb, 2010 IMMUNIZATIONS No Known Immunizations SOCIAL HISTORY Never Assessed REASON FOR VISIT PALS IN-[facility] PLAN OF CARE VITAL SIGNS MEDICATIONS Unknown [...] foot fracture Hospitalization History Via [facility] [place]- Back Pain 03/24/2017
--- OUTSIDE RECORDS SUMMARY | 2018-04-10 18:10 | XMS REPORT ---
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 Name Role Phone BELLABEL Unavailable PROBLEMS Type Condition ICD9-CM Code JAD16-GQ Code Onset Dates Condition Status SNOMED Code Problem Color blindness H53.50 Active 742937757 Problem Presbyopia of both eyes H52.4 Active 40803533 Problem Nuclear senile cataract of both eyes H25.13 Active 122184854 Problem Astigmatism of both eyes, unspecified type H52.203 Active 45198096 Problem Overactive bladder N32.81 Active 488971080 Problem Essential hypertension I10 Active 63993810 Problem Other chronic pain G89.29 Active 81911628 Problem Hypermetropia of both eyes H52.03 Active 25861739 Problem Alzheimer's disease, unspecified G30.9 Active 211010292 Problem Mild episode of recurrent major depressive disorder F33.0 Active 762031961 Problem 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 Active 253430358 Problem Major depressive disorder, single episode, mild F32.0 Active 34068714 Problem Chronic fatigue R53.82 Active 73702052 Problem Hydrocele, unspecified hydrocele type N43.3 Active 07432262 Problem Other acute pulmonary embolism without acute cor pulmonale I26.99 Active 801164244 Problem 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 Active 114936988 Problem Asymptomatic microscopic hematuria R31.21 Active 886378060 Problem Gait instability R26.81 Active 90524374 Problem PVD (peripheral vascular disease) I73.9 Active 602266515 Problem At high risk for falls Z91.81 Active [id number] Problem 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 Active 11959259 Problem Benign non-nodular prostatic hyperplasia with lower urinary tract symptoms N40.1 Active 272716391 Problem Alzheimers disease with late onset G30.1 Active 424835046 Problem Renal cyst, left Q61.00 Active 48264679 Problem Mixed hyperlipidemia E78.2 Active 496949457 Problem Anxiety F41.9 Active 29229907 Problem Transient cerebral ischemia, unspecified transient cerebral ischemia type G45.9 Active 988102745 Problem Primary insomnia F51.01 Active 248767628 ALLERGIES No Information ENCOUNTERS Encounter Location Date Diagnosis [place] [address] [address]- [address] Dec, [place] [address] 77602- 6853 September, Alzheimers disease with late onset G30.1 and Mild episode of recurrent major depressive disorder F33.0 [place] [address] 0[address]- [address] September, PVD (peripheral vascular disease) I73.9 ; Major depressive disorder, single episode, mild F32.0 ; Chronic fatigue R53.82 ; Weight gain R63.5 and Arthralgia, unspecified joint M25.50 [place] [address] 9[address]99- 7766 Aug, Acute low back pain, unspecified back pain laterality, with sciatica presence unspecified M54.5 [place] [address] [place] [id number] [place] [address] 19295- 8326 Aug, Acute low back pain, unspecified back pain laterality, with sciatica presence unspecified M54.5 [place] [address] 91961- 1420 Aug, Pain R52 [place] [address] [place] [id number] [place] [address] 66007- 3991 Jul, [place] [address] 17108- 0160 Jun, [place] [address] [place] [id number] [place] [address] 18017- 9809 07 Jun, 2017 Medicare annual wellness visit, initial Z00.00 ; Mixed hyperlipidemia E78.2 ; Essential hypertension I10 ; Anxiety F41.9 ; Alzheimers disease with late onset G30.1 ; 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 ; Overactive bladder N32.81 ; Primary insomnia F51.01 ; At high risk for falls Z91.81 and Encounter for immunization Z23 [facility] [address] [address]- [address] May, [facility] [address] 78275- 5303 May, Essential hypertension I10 and Transient cerebral ischemia, unspecified transient cerebral ischemia type G45.9 [facility] [address] [id number] May, Dental examination Z01.20 and Dental caries K02.9 [place] [address] 23587- 6089 May, [place] [address] 30834- 4461 May, [place] [address] 39299- 0387 May, Alzheimers disease with late onset G30.1 [place] [address] 61157- 4334 Apr, [place] [address] 01673- 5888 Apr, Alzheimers disease with late onset G30.1 and Mild episode of recurrent major depressive disorder F33.0 [place] [address] 39752- 7890 Mar, Mild episode of recurrent major depressive disorder F33.0 [place] [address] 00115- 0950 Mar, Mixed hyperlipidemia E78.2 ; Essential hypertension I10 ; Asymptomatic microscopic hematuria R31.21 and Renal cyst, left Q61.00 [place] [address] 02249- 3422 Mar, [facility] [address] [address] 135[address] Feb, Encounter for immunization Z23 [facility] [address] [place] [address] 3058 Feb, [facility] [id number] [place] [address] 15938- 7289 Feb, [facility] [id number] [place] [address] 07179 -7674 Feb, ANUG (acute necrotizing ulcerative gingivitis) A69.1 [facility] [address] [place] [id number] [place] [address] 62691- 3672 Feb, [facility] [id number] [place] [address] 63766- 3286 Feb, Mild episode of recurrent major depressive disorder F33.0 [facility] [id number] [place] [address] 09463- 6559 Feb, Alzheimers disease with late onset G30.1 and Mild episode of recurrent major depressive disorder F33.0 [facility] [id number] [place] [address] 77925- 1900 Jan, Alzheimers disease with late onset G30.1 [facility] [address] [address] 1447 Jan, Gait instability R26.81 [facility] [address] [id number] [place] [address] Jan [facility] [address] [id number] [place] [address] Dec [facility] [address] [address]- 5626 Dec, [facility] [address] [place] [address]- 7412 Dec, [facility] [address] [place] [id number] [place] [address] 93461- 4284 Dec, Essential hypertension I10 ; Transient cerebral ischemia, unspecified transient cerebral ischemia type G45.9 and Anxiety F41.9 [facility] [address] [place] [id number] [place] [address] 66426954- 1321 Dec, Gait instability R26.81 [facility] [address] [place] [id number] [place] [address] 00702- 3214 Dec, [facility] [address] [place] [id number] [place] [address] 78640- 4478 Nov, Alzheimers disease with late onset G30.1 and Mild episode of recurrent major depressive disorder F33.0 [facility] [address] [place] [id number] [place] [address] 40318- 4832 Nov, [facility] [address] [place] [id number] [place] [address] 32735- 4259 Nov, Gait instability R26.81 [facility] [address] [place] [id number] [place] [address] 51259- 5590 Nov, Anxiety F41.9 [facility] [address] [place] [id number] [place] [address] 98630- 6198 Nov, [facility] [address] [place] [id number] [place] [address] 75728- 2655 Nov, [facility] [address] [place] [id number] [place] [address] 44062- 7124 Oct, Gait instability R26.81 [facility] [address] [place] [address] 19852- 2692 Oct, Anxiety F41.9 [facility] [address] [place] [id number] [place] [address] 48485- 1591 Oct, Gait instability R26.81 [facility] [address] [address]- 4858 Oct, Gait instability R26.81 [facility] [address] [address]- 0724 Oct, [facility] [address] [place] [address] [address]- 0185 Oct, Anxiety F41.9 ; Chronic 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 use Z79.899 ; Encounter for immunization Z23 and Transient cerebral ischemia, unspecified transient cerebral ischemia type G45.9 [facility] [address] [place] [id number] [place] [address] 83950- 7538 September, [facility] [address] [place] [address] [address] [address]- 1465 September, Gait instability R26.81 [facility] [address] [place] [id number] [place] [address] 19250- 0730 September, [facility] [address], [place] [address]- 9491 September, [facility] [address] [place] [address] [address]- 3030 September, [facility] [address], [place] [address]- 2690 September, Alzheimers disease with late onset G30.1 and Mild episode of recurrent major depressive disorder F33.0 [facility] [address], [place] [address]- 2967 September, [facility] [address], [place] [address]- 2389 September, [facility] [address], [place] [address]- 8732 September, [facility] [address], [place] [address]- 7534 September, Mild episode of recurrent major depressive disorder F33.0 [facility] [address] [place] [id number] [address]- 5946 Aug, Mild episode of recurrent major depressive disorder F33.0 ; Alzheimers disease with late onset G30.1 ; Other acute pulmonary embolism without acute cor pulmonale I26.99 and Cough R05 [facility] [address] [place] [id number] [place] [address] 12944- 3906 Aug, [facility] [address] [place] [id number] [place] [address] 32696- 2137 Aug, Gait instability R26.81 [facility] [address] [place] [id number] [place] [address] 36196- 5701 Aug, Alzheimers disease with late onset G30.1 and Mild episode of recurrent major depressive disorder F33.0 [place] [address] [place] [id number] [place] [address] 52625- 8367 Aug, [place] [address] [place] [id number] [place] [address] 60275- 4090 Aug, 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 [place] [address] [place] [id number] [place] [address] 19212- 1049 Jul, Alzheimers disease with late onset G30.1 [place] [address] [place] [id number] [place] [address] 60546- 7252 Jul, [place] [address] [place] [id number] [place] [address] 24845- 2835 Jul, 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 [place] [address] [place] [id number] [place] [address] 73325- 5880 Jul, Anxiety F41.9 ; Alzheimers disease with late onset G30.1 and Transient cerebral ischemia, unspecified transient cerebral ischemia type G45.9 [facility] [address] [place] [id number] [place] [address] 69539- 0081 Jun, Essential hypertension I10 [place] [address] [place] [id number] [place] [address] 70478- 0288 Jun, [facility] [address] [place] [id number] [place] [address] 61388- 1653 Jun, [facility] [address] [place] [address] 40033- 1729 Jun, [facility] [address] [place] [id number] [place] [address] 19809- 6511 Jun, Essential hypertension I10 ; Benign non-nodular prostatic hyperplasia with lower urinary tract symptoms N40.1 ; Anxiety F41.9 ; Pain in right knee M25.561 ; Pain in left knee M25.562 and Other chronic pain G89.29 [facility] [address] [place] [id number] [place] [address] 18670- 4016 May, [facility] [address] [place] [id number] [place] [address] 71893- 3601 May, [facility] [address] [place] [id number] [place] [address] 85168- 9642 May, [facility] [address] [place] [id number] [place] [address] 36444- 4189 Apr, [facility] [address] [place] [id number] [place] [address] 95185- 3946 Mar, [facility] [address] [place] [id number] [place] [address] 29136- 5685 Mar, Mixed hyperlipidemia E78.2 and Essential hypertension I10 [facility] [address] [place] [address] 54439- 8556 Feb, [facility] [address] [place] [id number] [place] [address] 44111- 1944 Feb, Ingrown nail L60.0 and Onychomycosis B35.1 [facility] [address] [place] [id number] [place] [address] 03270- 2346 Feb, Paronychia, left L03.012 [facility] [address] [place] [address] 77951- 8134 Jan, [facility] [address] [place] [id number] [place] [address] 62807- 8826 Jan, Cramps of right lower extremity R25.2 and Mixed hyperlipidemia E78.2 [facility] [address] [place] [id number] [place] [address] 19878- 9715 Jan, Cramps of right lower extremity R25.2 ; Essential hypertension I10 ; Mixed hyperlipidemia E78.2 ; Chronic 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 use Z79.899 and Claudication I73.9 [facility] [address] [place] [id number] [place] [address] 17741- 4257 Jan, Right leg pain M79.604 [facility] [address] [place] [id number] [place] [address] 33926- 2700 Dec, [facility] [address] [place] [id number] [place] [address] 25883- 9524 Nov, [facility] [address] [place] [id number] [place] [address] 18395- 3438 Nov, [facility] [address] [place] [id number] [place] [address] 49817- 8658 Nov, [facility] [address] [place] [id number] [place] [address] 25276- 6962 Nov, Dermatofibroma D23.9 [facility] [address] [place] [id number] [place] [address] 81941- 4024 Nov, [facility] [address] [place] [id number] [place] [address] 41512- 5287 Oct, [facility] [address] [place] [id number] [place] [address] 08932- 5981 Oct, [facility] [address] [place] [id number] [place] [address] 50794- 2403 September, Benign non-nodular prostatic hyperplasia with lower urinary tract symptoms N40.1 ; Essential hypertension I10 ; Overactive bladder N32.81 and Fatigue, unspecified type R53.83 [facility] [address] [place] [address] [address]- 5252 September, [facility] [address] [place] [id number] [place] [address] 134900- 4868 September, [facility] [address] [place] [id number] [place] [address] 368795- 0731 Aug, [facility] [address] [place] [id number] [place] [address] 565143- 3991 Jul, [facility] [address] [place] [address] [id number] [place] [address] 197310- 9549 Jul, Pelvic pain R10.2 ; Jock itch B35.6 ; Essential hypertension I10 and Hydrocele, unspecified hydrocele type N43.3 [facility] [address] [place] [id number] [place] [address] 97183- 8869 Jun, [facility] [address] [place] [id number] [place] [address] 41439- 4630 Jun, [facility] [address] [place] [id number] [place] [address] 30453- 6961 Jun, Benign non-nodular prostatic hyperplasia with lower urinary tract symptoms N40.1 [facility] [address] [place] [address] 42757- 9128 Jun, Benign non-nodular prostatic hyperplasia with lower urinary tract symptoms N40.1 [facility] [address], [place] [address]- 2206 Jun, [facility] [address] [place] [id number] [place] [address] 16667- 2034 May, [facility] [address] [place] [id number] [place] [address] 838362- 0612 Apr, [facility] [address] [place] [address] 636507- 6252 Apr, [facility] [address] [place] [address] 873496- 9039 Apr, Other acute pulmonary embolism without acute cor pulmonale I26.99 ; Anxiety F41.9 ; 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 and [facility] 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 use Z79.899 [facility] [address] [place] [id number] [place] [address] 82242- 1500 Apr, [facility] [address] [place] [id number] [place] [address] 09348- 9981 Apr, [facility] [address] [place] [id number] [place] [address] 14376- 2119 Mar, [facility] [address] [place] [id number] [place] [address] 19007- 9408 Mar, [facility] [address] [place] [id number] [place] [address] 24581- 0015 Feb, Cough R05 [facility] [address] [place] [id number] [place] [address] 10514- 6383 Feb, [facility] [address] [place] [id number] [place] [address] 33584- 0070 Feb, Encounter for immunization Z23 [facility] [address] 81717- 5128 Feb, Other and unspecified hyperlipidemia 272.4 [facility] [address] [place] [id number] [place] [address] 53362- 9002 Jan, [facility] [address] [place] [id number] [place] [address] 47696- 0347 Jan, TIA (transient ischemic attack) 435.9 [facility] [address] [place] [id number] [place] [address] 65807- 9304 Dec, [facility] [address] [place] [id number] [place] [address] 81184- 7051 Dec, [facility] [address] [place] [id number] [place] [address] 32904- 3944 Dec, [facility] [address] [place] [id number] [place] [address] 04778- 5432 Nov, [facility] [address] [address]- 3896 Oct, Chronic cough 786.2 [facility] [address], [place] [address]- 6300 Oct, [facility] [address], [place] [address]- 8616 Oct, [facility] [address] [address]- 8812 Oct, [facility] [id number] [place] [address] 41468- 7779 Oct, [facility] [address], [place] [address]- 6884 Oct, Chronic cough 786.2 [facility] [address] [address]- 5197 Oct, Cough 786.2 ; Hypertension 401.9 ; BPH (benign prostatic hyperplasia) 600.00 ; Other and unspecified hyperlipidemia 272.4 and Hydrocele 603.9 [facility] [address], [place] [address]- 0898 Oct, [facility] [address], [place] [address]- 8017 September, [facility] [address] [address]- 7562 Aug, [facility] [address], [place] [address]- 1138 Aug, [facility] [address], [place] [address]- 2790 Jul, [facility] [address], [place] [address]- 1170 Jul, [facility] [address], [place] [address]- 5997 Jul, [facility] [place] [facility] [address] [id number] [place] [address]- 9808 Jul, [facility] [place] [facility] [address] [id number] [place] [address]- 0059 Jul, [facility] [place] [facility] [address] [facility] [address] [id number] [place] [address]- 3822 Jun, [facility] [place] [facility] [address] [facility] [address] [id number] [place] [address]- 7141 Jun, 2014 [facility] [place] [facility] [address] [id number] [place] [address]- 6404 Jun, [facility] [place] [facility] [address] [facility] [address] [id number] [place] [address]- 9105 Jun, 2014 [facility] [place] [facility] [address] [facility] [address] [id number] [place] [address]- 0088 Jun, [facility] [place] [facility] [address] [facility] [address] [id number] [place] [address]- 7536 Jun, [facility] [place] [facility] [address] [facility] [address] [id number] [place] [address]- 3435 Jun, [facility] [place] [facility] [address] [facility] [address] [id number] [place] [address]- 5661 Jun, [facility] [place] [facility] [address] [facility] [address] [id number] [place] [address]- 5299 May, [facility] [place] [facility] [address] [facility] [address] [id number] [address]- 4524 May, [facility] [place] [facility] [address] [facility] [address] [id number] [address]- 0448 May, [facility] [place] [facility] [address] [facility] [address] [id number], [place] [address]- 0461 May, [facility] [place] [facility] [address] [facility] [address] [id number], [place] [address]- 3442 May, [facility] [place] [facility] [address] [id number] [place] [address]- 0482 May, [facility] [place] [facility] [address] [id number] [place] [address]- 1706 May, [facility] [place] [facility] [address] [id number] [place] [address]- 4604 May, [facility] [place] [facility] [address] [id number] [place] [address]- 4669 May, [facility] [place] [facility] [address] [id number] [place] [address]- 4209 May, [facility] [place] [facility] [address] [id number] [place] [address]- 4312 Apr, [facility] [place] [facility] [address] [id number] [place] [address]- 5034 Apr, [facility] [place] [facility] [address] [id number] [place] [address]- 1999 Apr, [facility] [place] [facility] [address] [id number] [place] [address]- 6060 Apr, [facility] [place] [facility] [address] [id number] [place] [address] Apr, [facility] [place] [facility] [address] [id number] [place] [address] Apr, [facility] [place] [facility] [address] [id number] [place] [address] Apr, [facility] [place] [facility] [address] [id number] [place] [address] Apr, [facility] [place] [facility] [address] [id number] [place] [address] Mar, [facility] [place] [facility] [address] [id number] [place] [address] Mar, [facility] [place] [facility] [address] [id number] [place] [address] Mar, [facility] [place] [facility] [address] [id number] [place] [address] Mar, [facility] [place] [facility] [address] [id number] [place] [address] Mar, [facility] [place] [facility] [address] [id number] [place] [address] Mar, [facility] [place] [facility] [address] [id number] [place] [address] Mar, [facility] [place] [facility] [address] [id number] [place] [address] Mar, [facility] [place] [facility] [address] [id number] [place] [address] Mar, [facility] [place] [facility] [address] [id number] [place] [address] Mar, [facility] [place] [facility] [address] [id number], [place] [address] Feb, [facility] [place] [facility] [address] [id number], [place] [address] Feb, [facility] [place] [facility] [address] [id number], [place] [address] Feb, [facility] [place] [facility] [address] [id number], [place] [address] Feb, [facility] [place] [facility] [address] [id number], [place] [address] Feb, [facility] [place] [facility] [address] [id number] [place] [address] Feb, [facility] [place] [facility] [address] [id number], [place] [address] 30 Jan, 2014 [facility] [place] [facility] [address] [id number], [place] [address] 30 Jan, 2014 [facility] [place] [facility] [address] [id number] [place] [address] 24 Jan, 2013 [facility] [place] [facility] [address] [id number] [place] [address] 2546 24 Jan, 2013 [facility] [place] [facility] [address] [id number] [place] [address] 2546 19 Jan, 2013 [facility] [place] [facility] [address] [id number] [place] [address] 2546 19 Jan, 2013 [facility] [place] [facility] [address] [id number] [place] [address] 2546 16 Jan, 2013 [facility] [place] [facility] [address] [id number] [place] [address]- 7559 16 Jan, 2013 [facility] [place] [facility] [address] [id number] [place] [address] 4840 16 Jan, 2013 [facility] [place] [facility] [address] [id number] [place] [address]- 6284 16 Jan, 2013 [facility] [place] [facility] [address] [id number] [place] [address]- 7923 12 Jan, 2013 [facility] [place] [facility] [address] [id number] [place] [address] 2541 12 Jan, 2013 [facility] [place] [facility] [address] [id number] [place] [address]- 6224 Dec, [facility] [place] [facility] [address] [id number] [place] [address]- 2545 Dec, [facility] [place] [facility] [address] [id number] [place] [address]- 2543 Dec, [facility] [place] [facility] [address] [id number] [place] [address]- 9927 Dec, [facility] [place] [facility] [address] [id number] [place] [address]- 1610 Dec, [facility] [place] [facility] [address] [id number] [place] [address] Dec, [facility] [place] [facility] [address] [id number] [place] [address] 2740 Nov, [facility] [place] [facility] [address] [id number] [place] [address]- 4[address] Nov, [facility] [place] [facility] [address] [id number] [place] [address]- 2149 Nov, [facility] [place] [facility] [address] [id number] [place] [address]- 1516 Nov, [facility] [place] [facility] [address] [id number] [place] [address]- 9634 Nov, [facility] [place] [facility] [address] [id number] [place] [address]- 9322 Nov, [facility] [place] [facility] [address] [id number] [place] [address]- 9302 Nov, [facility] [place] [facility] [address] [id number] [place] [address]- 1776 Nov, [facility] [place] [facility] [address] [id number] [place] [address]- 2262 Oct, [facility] [place] [facility] [address] [id number] [place] [address]- 5649 Oct, [facility] [place] [facility] [address] [id number] [place] [address]- 3309 Oct, [facility] [place] [facility] [address] [id number] [place] [address]- 6750 Oct, [facility] [place] [facility] [address] [id number] [place] [address]- 7707 September, [facility] [place] [facility] [address] [id number] [place] [address]- 9538 September, [facility] [place] [facility] [address] [id number] [place] [address]- 0034 September, [facility] [place] [facility] [address] [id number] [place] [address]- 8135 September, [facility] [place] [facility] [address] [id number] [place] [address]- 5227 September, [facility] [place] [facility] [address] [id number] [place] [address]- 7011 September, [facility] [place] [facility] [address] [id number] [place] [address]- 2070 Aug, [facility] [place] [facility] [address] [id number] [place] [address]- 2598 Aug, [facility] [place] [facility] [address] [id number] [place] [address]- 9620 Aug, [facility] [place] [facility] [address] [id number] [place] [address]- 7953 Aug, [facility] [place] [facility] [address] [id number] [place] [address]- 0297 Aug, [facility] [place] [facility] [address] [id number] [place] [address]- 5842 Aug, [facility] [place] [facility] [address] [id number] [place] [address]- 7906 Aug, [facility] [place] [facility] [address] [id number] [place] [address]- 9686 Aug, [facility] [place] [facility] [address] [id number] [place] [address]- 8566 Jul, [facility] [place] [facility] [address] [id number] [place] [address]- 3255 Jul, [facility] [place] [facility] [address] [id number] [place] [address]- 0564 Jun, [facility] [place] [facility] [address] [id number] [place] [address]- 5148 Jun, [facility] [place] [facility] [address] [id number] [place] [address]- 3317 Jun, [facility] [place] [facility] [address] [id number] [place] [address]- 3724 Jun, [facility] [place] [facility] [address] [id number] [place] [address]- 0278 Jun, [facility] [place] [facility] [address] [id number] [place] [address]- 6916 May, [facility] [place] [facility] [address] [id number] [place] [address]- 3872 May, [facility] [place] [facility] [address] [id number] [place] [address]- 0820 May, [facility] [place] [facility] [address] [id number] [place] [address]- 4518 May, [facility] [place] [facility] [address] [id number] [place] [address]- 7401 Apr, [facility] [place] [facility] [address] [id number] [place] [address]- 9173 Apr, [facility] [place] [facility] [address] [id number] [place] [address]- 8904 Mar, [facility] [place] [facility] [address] [id number] [place] [address]- 7610 Mar, [facility] [place] [facility] [address] [id number] [place] [address]- 7079 Feb, [facility] [place] [facility] [address] [id number] [place] [address]- 8462 Feb, [facility] [place] [facility] [address] [id number] [place] [address]- 4419 Feb, [facility] [place] [facility] [address] [id number] [place] [address]- 0586 Feb, [facility] [place] [facility] [address] [id number] [place] [address]- 1824 Feb, [facility] [place] [facility] [address] [id number] [place] [address]- 5433 Feb, [facility] [place] [facility] [address] [id number] [place] [address]- 7763 Feb, [facility] [place] [facility] [address] [id number] [place] [address]- 8091 Jan, [facility] [place] [facility] [address] [id number] [place] [address]- 7958 Jan, [facility] [place] [facility] [address] [id number] [place] [address]- 7056 Dec, [facility] [place] [facility] [address] [id number] [place] [address]- 5197 Dec, [facility] [place] [facility] [address] [id number] [place] [address]- 7584 Dec, [facility] [place] [facility] [address] [id number] [place] [address]- 9772 Dec, [facility] [place] [facility] [address] [id number] [place] [address]- 4473 Dec, [facility] [place] [facility] [address] [id number] [place] [address]- 6049 Nov, [facility] [place] [facility] [address] [id number] [place] [address]- 0013 Nov, [facility] [place] [facility] [address] [id number] [place] [address]- 7263 Nov, [facility] [place] [facility] [address] [id number], [place] [address]- 5106 Oct, [facility] [place] [facility] [address] [id number] [place] [address]- 4172 Oct, [facility] [place] [facility] [address] [id number] [place] [address]- 6797 Oct, [facility] [place] [facility] [address] [id number] [place] [address]- 4843 September, [facility] [place] [facility] [address] [id number] [place] [address]- 6466 Aug, [facility] [address] [id number] [place] [address]- 4236 Aug, [facility] [address] [id number] [place] [address] 2546 Aug, [facility] [address] [id number] [place] [address]- 8788 Jul, [facility] [address] [id number] [place] [address]- 5000 Jul, [facility] [address] [id number] [place] [address]- 0250 Jul, [facility] [address] [id number] [place] [address] 2546 Jul, [facility] [address] [id number] [place] [address]- 5664 Jul, [facility] [address] [id number] [place] [address]- 0933 Jun, [facility] [address] [id number] [place] [address]- 0452 Jun, [facility] [address] [id number] [place] [address]- 5724 May, [facility] [address] [id number] [place] [address]- 2546 May, [facility] [address] [id number] [place] [address]- 3965 Apr, [facility] [address] [id number] [place] [address]- 5020 Apr, [facility] [address] [id number] [place] [address] 2546 Mar, [facility] [address] [id number] [place] [address]- 9560 Mar, [facility] [address] [id number] [place] [address]- 6516 Mar, [facility] [address] [id number] [place] [address]- 0936 Mar, [facility] [address] [facility] [address] [id number] [place] [id number] Feb, [facility] [place] [facility] [address] [id number] [place] [address]- 2526 Feb, [facility] [place] [facility] [address] [id number] [place] [address]- 6648 Feb, [facility] [place] [facility] [address] [id number] [place] [address]- 2076 Feb, [facility] [address] [id number] [place] [address]- 1018 Feb, [facility] [place] [facility] [address] [id number] [place] [address]- 9536 Feb, [facility] [place] [facility] [address] [id number] [place] [address]- 5555 Feb, [facility] [place] [facility] [address] [id number] [place] [address]- 2456 Jan, [facility] [place] [facility] [address] [id number] [place] [address]- 9196 Jan, [facility] [place] [facility] [address] [id number], [place] [address]- 8666 Dec, [facility] [place] [facility] [address] [id number] [place] [address]- 0356 Dec, [facility] [place] [facility] [address] [id number] [place] [address]- 9586 Nov, [facility] [place] [facility] [address] [id number] [place] [address]- 2546 Oct, [facility] [place] [facility] [address] [id number], [place] [address]- 7790 September, [facility] [address] [id number] [place] [address]- 1216 September, [facility] [address] [id number] [place] [address]- 7456 September, [facility] [address] [id number] [place] [address]- 1716 Aug, [facility] [address] [id number] [place] [address]- 4666 May, [facility] [address] [id number] [place] [address]- 4603 May, [facility] [address] [id number] [place] [address]- 9933 Apr, [facility] [address] [id number] [place] [address]- 2801 Apr, [facility] [place] [facility] [address] [id number] [place] [address]- 3307 Apr, [facility] [address] [id number], [place] [address]- 3906 Apr, [facility] [place] [facility] [address] [id number] [place] [address]- 6724 Apr, [facility] [address] [id number], [place] [address]- 7733 Mar, [facility] [place] [facility] [address] [id number], [place] [address]- 3826 Feb, [facility] [place] [facility] [address] [id number] [place] [address]- 3112 Feb, [facility] [place] [facility] [address] [id number], [place] [address]- 3653 September, [facility] [place] [facility] [address] [id number] [place] [address]- 8656 Mar, [facility] [place] [facility] [address] [facility] [address] [id number] [place] [address]- 4305 14 Feb, 2010 [facility] [address] [facility] [id number] [place] [address]- 0516 11 Feb, 2010 [facility] [address] [facility] [address] [id number] [place] [address]- 2275 11 Feb, 2010 IMMUNIZATIONS No Known Immunizations [...] foot fracture Hospitalization History Via [facility]- Back Pain 03/24/2017
--- OUTSIDE RECORDS SUMMARY | 2018-04-10 18:12 | XMS REPORT ---
Author Author PASCUAL WHITNEY Organization [facility] Address [address] [place] [address] Care Team Providers Care Overlock Elastic Attacher Name Role Phone TEA WHITNEYCHIKI Unavailable PROBLEMS Type Condition ICD9-CM Code MSK42-KI Code Onset Dates Condition Status SNOMED Code Problem Color blindness H53.50 Active 497386838 Problem Presbyopia of both eyes H52.4 Active 54431248 Problem Nuclear senile cataract of both eyes H25.13 Active 087973127 Problem Astigmatism of both eyes, unspecified type H52.203 Active 72345772 Problem Overactive bladder N32.81 Active 798889607 Problem Essential hypertension I10 Active 08955606 Problem Other chronic pain G89.29 Active 96456475 Problem Hypermetropia of both eyes H52.03 Active 76361701 Problem Alzheimer's disease, unspecified G30.9 Active 509433242 Problem Mild episode of recurrent major depressive disorder F33.0 Active 990354981 Problem 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 Active 081844342 Problem Major depressive disorder, single episode, mild F32.0 Active 81151823 Problem Chronic fatigue R53.82 Active 69586274 Problem Hydrocele, unspecified hydrocele type N43.3 Active 55433602 Problem Other acute pulmonary embolism without acute cor pulmonale I26.99 Active 196496733 Problem 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 Active 579933524 Problem Asymptomatic microscopic hematuria R31.21 Active 436606793 Problem Gait instability R26.81 Active 56228198 Problem PVD (peripheral vascular disease) I73.9 Active 568656085 Problem At high risk for falls Z91.81 Active [id number] Problem 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 Active 25303248 Problem Benign non-nodular prostatic hyperplasia with lower urinary tract symptoms N40.1 Active 656904138 Problem Alzheimers disease with late onset G30.1 Active 955184762 Problem Renal cyst, left Q61.00 Active 02378074 Problem Mixed hyperlipidemia E78.2 Active 767084289 Problem Anxiety F41.9 Active 21486529 Problem Transient cerebral ischemia, unspecified transient cerebral ischemia type G45.9 Active 895304527 Problem Primary insomnia F51.01 Active 611411068 ALLERGIES No Information ENCOUNTERS Encounter Location Date Diagnosis [place] [address] [address] Dec, [place] [address] [address]- 0586 September, Alzheimers disease with late onset G30.1 and Mild episode of recurrent major depressive disorder F33.0 [place] [address] [address]- 2303 September, PVD (peripheral vascular disease) I73.9 ; Major depressive disorder, single episode, mild F32.0 ; Chronic fatigue R53.82 ; Weight gain R63.5 and Arthralgia, unspecified joint M25.50 [place] [address] [place] [id number] [place] [address] 0[address]41- 5146 Aug, Acute low back pain, unspecified back pain laterality, with sciatica presence unspecified M54.5 [place] [address] 5[address]26- 4947 Aug, Acute low back pain, unspecified back pain laterality, with sciatica presence unspecified M54.5 [place] [address] 85203- 1704 Aug, Pain R52 [place] [address] 24325- 2895 Jul, [place] [address] 83686- 5872 Jun, [place] [address] 57625- 3763 07 Jun, 2017 Medicare annual wellness visit, initial Z00.00 ; Mixed hyperlipidemia E78.2 ; Essential hypertension I10 ; Anxiety F41.9 ; Alzheimers disease with late onset G30.1 ; 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 ; Overactive bladder N32.81 ; Primary insomnia F51.01 ; At high risk for falls Z91.81 and Encounter for immunization Z23 [facility] [address] [address] May, [facility] [address] 12[address]- 4954 May, Essential hypertension I10 and Transient cerebral ischemia, unspecified transient cerebral ischemia type G45.9 [facility] [address] [id number] May, Dental examination Z01.20 and Dental caries K02.9 [place] [address] 0[address]53- 5293 May, [place] [address] 02620- 2748 May, [place] [address] 59[address]- 9236 May, Alzheimers disease with late onset G30.1 [place] [address] 33042- 7752 Apr, [place] [address] 67393- 3454 Apr, Alzheimers disease with late onset G30.1 and Mild episode of recurrent major depressive disorder F33.0 [place] [address] 57[address]- 7711 Mar, Mild episode of recurrent major depressive disorder F33.0 [place] [address] [address]60- 0740 Mar, Mixed hyperlipidemia E78.2 ; Essential hypertension I10 ; Asymptomatic microscopic hematuria R31.21 and Renal cyst, left Q61.00 [place] [address] [place] [address]- 134[address] Mar, [facility] [address] [place] [id number] [place] [address] 57544- 7430 Feb, Encounter for immunization Z23 [facility] [address] [place] [id number] [place] [address] 61531- 9484 Feb, [facility] [address] [place] [id number] [place] [address] 12081- 2081 Feb, [facility] [address] [place] [id number] [place] [address] 71036 -6652 Feb, ANUG (acute necrotizing ulcerative gingivitis) A69.1 [facility] [address] [place] [id number] [place] [address] 92313- 0137 Feb, [facility] [address] [place] [id number] [place] [address] 72398- 7528 Feb, Mild episode of recurrent major depressive disorder F33.0 [facility] [address] [place] [id number] [place] [address] 67443- 8970 Feb, Alzheimers disease with late onset G30.1 and Mild episode of recurrent major depressive disorder F33.0 [facility] [id number] [place] [address] 94660- 4916 Jan, Alzheimers disease with late onset G30.1 [facility] [id number] [place] [address] 34652- 2225 Jan, Gait instability R26.81 [facility] [address] [id number] [place] [address] Jan [facility] [address] [id number] [place] [address] Dec [facility] [id number] [place] [address] 35513- 5467 Dec, [facility] [address] [place] [id number] [place] [address] 70989- 1671 Dec, [facility] [address] [facility] [id number] [address] 1376 Dec, Essential hypertension I10 ; Transient cerebral ischemia, unspecified transient cerebral ischemia type G45.9 and Anxiety F41.9 [facility] [address] [facility] [id number] [place] [address] 2546 Dec, Gait instability R26.81 [facility] [address] [facility] [id number] [place] [address] 88823- 0306 Dec, [facility] [address] [facility] [id number] [place] [address] 12527- 3464 Nov, Alzheimers disease with late onset G30.1 and Mild episode of recurrent major depressive disorder F33.0 [facility] [address] [place] [id number] [place] [address] 14901- 5110 Nov, [facility] [address] [place] [id number] [place] [address] 23619- 9673 Nov, Gait instability R26.81 [facility] [address] [facility] [id number] [place] [address] 20752- 3713 Nov, Anxiety F41.9 [facility] [address] [place] [id number] [place] [address] 45644- 9223 Nov, [facility] [address] [address]- 0920 Nov, [facility] [address] [place] [id number] [place] [address] 69136- 4300 Oct, Gait instability R26.81 [facility] [address] [facility] [id number] [place] [address] 6654 Oct, Anxiety F41.9 [facility] [address] [facility] [id number] [place] [address] 33327- 0988 Oct, Gait instability R26.81 [facility] [address] [facility] [id number] [place] [address]- 9198 Oct, Gait instability R26.81 [facility] [address] [address]- 2545 Oct, [facility] [address] [place] [id number] [address]- 2597 Oct, Anxiety F41.9 ; Chronic 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 use Z79.899 ; Encounter for immunization Z23 and Transient cerebral ischemia, unspecified transient cerebral ischemia type G45.9 [facility] [address] [id number] [address]- 2627 September, [facility] [address] [id number] [address]- 3136 September, Gait instability R26.81 [facility] [address] [place] [id number] [address]- 5446 September, [facility] [address] [address]- 8711 September, [facility] [address] [address]- 2314 September, [facility] [address] [address]- 0310 September, Alzheimers disease with late onset G30.1 and Mild episode of recurrent major depressive disorder F33.0 [facility] [address] [address]- 0250 September, [facility] [address] [address]- 7237 September, [facility] [address] [place] [id number] [address]- 1253 September, [facility] [address] [address]- 0193 September, Mild episode of recurrent major depressive disorder F33.0 [facility] [address] [place] [id number] [address]- 1085 Aug, Mild episode of recurrent major depressive disorder F33.0 ; Alzheimers disease with late onset G30.1 ; Other acute pulmonary embolism without acute cor pulmonale I26.99 and Cough R05 [facility] [address] [place] [id number] [place] [address] 16223- 2892 Aug, [facility] [address] [place] [id number] [place] [address] 26250- 4866 Aug, Gait instability R26.81 [facility] [address] [place] [id number] [place] [address] 53643- 3053 Aug, Alzheimers disease with late onset G30.1 and Mild episode of recurrent major depressive disorder F33.0 [place] [address] [place] [id number] [place] [address] 12627- 7642 Aug, [place] [address] [place] [id number] [place] [address] 82598- 0351 Aug, 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 [facility] [address] [place] [id number] [place] [address] 62292- 5768 Jul, Alzheimers disease with late onset G30.1 [place] [address] [place] [id number] [place] [address] 44912- 5415 Jul, [place] [address] [place] [id number] [place] [address] 48155- 9707 Jul, 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 [facility] [address] [place] [id number] [place] [address] 86926- 7960 Jul, Anxiety F41.9 ; Alzheimers disease with late onset G30.1 and Transient cerebral ischemia, unspecified transient cerebral ischemia type G45.9 [facility] [address] [place] [id number] [place] [address] 71067- 8928 Jun, Essential hypertension I10 [facility] [address] [place] [id number] [place] [address] 32802- 0630 Jun, [facility] [address] [place] [id number] [place] [address] 27788- 8400 Jun, [facility] [address] [place] [id number] [place] [address] 32291- 7543 Jun, [facility] [address] [place] [id number] [place] [address] 23761- 1410 Jun, Essential hypertension I10 ; Benign non-nodular prostatic hyperplasia with lower urinary tract symptoms N40.1 ; Anxiety F41.9 ; Pain in right knee M25.561 ; Pain in left knee M25.562 and Other chronic pain G89.29 [facility] [address] [place] [id number] [place] [address] 24566- 9655 May, [facility] [address] 35726- 2122 May, [facility] [address] [place] [id number] [place] [address] 43090- 9174 May, [facility] [address] [place] [id number] [place] [address] 82114- 9442 Apr, [facility] [address] [place] [id number] [place] [address] 84235- 4202 Mar, [facility] [address] [place] [id number] [place] [address] 99541- 8327 Mar, Mixed hyperlipidemia E78.2 and Essential hypertension I10 [facility] [address] [place] [id number] [place] [address] 43388- 3684 Feb, [facility] [address] [place] [id number] [place] [address] 39010- 7667 Feb, Ingrown nail L60.0 and Onychomycosis B35.1 [facility] [address] [place] [id number] [place] [address] 47474- 2063 Feb, Paronychia, left L03.012 [facility] [address] [place] [id number] [place] [address] 57382- 4901 Jan, [facility] [address] [id number] [address]- 6842 07 Jan, 2016 Cramps of right lower extremity R25.2 and Mixed hyperlipidemia E78.2 [facility] [address] [place] [id number] [place] [address] 63693- 1150 Jan, Cramps of right lower extremity R25.2 ; Essential hypertension I10 ; Mixed hyperlipidemia E78.2 ; Chronic 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 use Z79.899 and Claudication I73.9 [facility] [address] [place] [id number] [place] [address] 62501- 8167 Jan, Right leg pain M79.604 [facility] [address] [place] [id number] [place] [address] 71988- 0814 Dec, [facility] [address] [place] [id number] [place] [address] 03677- 0507 Nov, [facility] [address] [place] [id number] [place] [address] 51665- 6507 Nov, [facility] [address] [place] [id number] [place] [address] 00184- 3163 Nov, [facility] [address] [place] [id number] [place] [address] 81659- 7030 Nov, Dermatofibroma D23.9 [facility] [address] [place] [id number] [place] [address] 67856- 9155 Nov, [facility] [address] [place] [id number] [place] [address] 30777- 7152 Oct, [facility] [id number] [place] [address] 23752- 3079 Oct, [facility] [address] [place] [id number] [place] [address] 05842- 1467 September, Benign non-nodular prostatic hyperplasia with lower urinary tract symptoms N40.1 ; Essential hypertension I10 ; Overactive bladder N32.81 and Fatigue, unspecified type R53.83 [facility] [address] [place] [id number] 1595 September, [facility] [address] [place] [id number] [place] [address] 466652- 6949 September, [facility] [address] 3351 Aug, [facility] [address] [place] [id number] [place] [address] 18701- 9044 Jul, [facility] [address] [place] [id number] [place] [address] 612277- 3628 Jul, Pelvic pain R10.2 ; Jock itch B35.6 ; Essential hypertension I10 and Hydrocele, unspecified hydrocele type N43.3 [facility] [address] [place] [id number] [place] [address] 68576- 2087 Jun, [facility] [address] [place] [id number] [place] [address] 045868- 1801 Jun, [facility] [address] [place] [id number] [place] [address] 44588- 5876 Jun, Benign non-nodular prostatic hyperplasia with lower urinary tract symptoms N40.1 [facility] [address] [address]- 3782 Jun, Benign non-nodular prostatic hyperplasia with lower urinary tract symptoms N40.1 [facility] [address] [address]- 8000 Jun, [facility] [address] 7098 May, [facility] [address] [place] [id number] [place] [address] 664318- 5897 Apr, [facility] [address] 0164 Apr, [facility] [id number] [place] [address] 400969- 6480 Apr, Other acute pulmonary embolism without acute cor pulmonale I26.99 ; Anxiety F41.9 ; 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 and intermediate 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 use Z79.899 [facility] [address] [place] [id number] [place] [address] 56898- 2334 Apr, [facility] [address] [place] [id number] [place] [address] 66406- 9289 Apr, [facility] [address] [place] [id number] [place] [address] 42346- 4643 Mar, [facility] [address] [place] [id number] [place] [address] 23552- 3039 Mar, [facility] [address] [place] [id number] [place] [address] 03211- 9652 Feb, Cough R05 [facility] [address] [place] [id number] [place] [address] 40457- 4830 Feb, [facility] [address] [place] [id number] [place] [address] 75774- 2043 Feb, Encounter for immunization Z23 [facility] [address] [place] [id number] [place] [address] 80985- 0084 Feb, Other and unspecified hyperlipidemia 272.4 [facility] [address] [place] [id number] [place] [address] 39237- 6912 Jan, [facility] [address] [place] [id number] [place] [address] 01044- 2057 Jan, TIA (transient ischemic attack) 435.9 [facility] [address] [place] [id number] [place] [address] 23357- 3380 Dec, [facility] [address] [place] [id number] [place] [address] 69878- 1507 Dec, [facility] [address] [place] [id number] [place] [address] 49819- 1418 Dec, [facility] [address] [place] [address]- 5271 Nov, [facility] [address] [place] [id number] [place] [address] 01203- 2516 Oct, Chronic cough 786.2 [facility] [address] [place] [id number] [place] [address] 40136- 5090 Oct, [facility] [address] [place] [id number] [place] [address] 45628- 7064 Oct, [facility] [address] [place] [id number] [place] [address] 69927- 6456 Oct, [facility] [address] [place] [id number] [place] [address] 79447- 7510 Oct, [facility] [address] [place] [id number] [place] [address] 55109- 3583 Oct, Chronic cough 786.2 [facility] [address] [place] [id number] [place] [address] 72040- 8196 Oct, Cough 786.2 ; Hypertension 401.9 ; BPH (benign prostatic hyperplasia) 600.00 ; Other and unspecified hyperlipidemia 272.4 and Hydrocele 603.9 [facility] [address] [place] [id number] [place] [address] 97155- 2650 Oct, [facility] [address] [address]- 3821 September, [facility] [id number] [place] [address] 28788- 7217 Aug, [facility] [id number] [place] [address] 71816- 4608 Aug, [facility] [address] [place] [id number] [place] [address] 51951- 4168 Jul, [facility] [address] [address]- 8577 Jul, [facility] [address] [id number] [place] [address] 79133- 7551 Jul, [facility] [place] [facility] [address] [id number] [place] [address]- 3758 Jul, [facility] [place] [facility] [address] [id number] [place] [address]- 6193 Jul, [facility] [place] [facility] [address] [facility] [id number] [place] [address]- 8903 Jun, 2014 [facility] [place] [facility] [address] [id number] [place] [address]- 0683 Jun, 2014 [facility] [place] [facility] [address] [id number] [place] [address]- 7707 Jun, 2014 [facility] [place] [facility] [address] [id number] [place] [address]- 5850 Jun, 2014 [facility] [place] [facility] [address] [facility] [id number] [place] [address]- 9405 Jun, 2014 [facility] [place] [facility] [address] [id number] [place] [address]- 1029 Jun, [facility] [place] [facility] [address] [id number] [place] [address]- 7503 Jun, [facility] [place] [facility] [address] [facility] [id number] [place] [address]- 0179 Jun, [facility] [place] [facility] [address] [facility] [id number] [place] [address]- 5822 May, [facility] [place] [facility] [address] [id number] [place] [address]- 0036 May, [facility] [place] [facility] [address] [id number] [place] [address]- 1703 May, [facility] [place] [facility] [address] [facility] [id number] [place] [address]- 0352 May, [facility] [place] [facility] [address] [facility] [id number] [place] [address]- 9429 May, [facility] [place] [facility] [address] [id number] [place] [address]- 9518 May, [facility] [place] [facility] [address] [id number] [place] [address] May, [facility] [place] [facility] [address] [id number] [place] [address] May, [facility] [place] [facility] [address] [id number] [place] [address] May, [facility] [place] [facility] [address] [id number] [place] [address] May, [facility] [place] [facility] [address] [id number] [place] [address] Apr, [facility] [place] [facility] [address] [id number] [place] [address] Apr, [facility] [place] [facility] [address] [id number] [place] [address] Apr, [facility] [place] [facility] [address] [id number] [place] [address] Apr, [facility] [place] [facility] [address] [id number] [place] [address] Apr, [facility] [place] [facility] [address] [id number] [place] [address] Apr, [facility] [place] [facility] [address] [id number] [place] [address] Apr, [facility] [place] [facility] [address] [id number] [place] [address] Apr, [facility] [place] [facility] [address] [id number] [place] [address] Mar, [facility] [place] [facility] [address] [id number] [place] [address] Mar, [facility] [place] [facility] [address] [id number] [place] [address] Mar, [facility] [place] [facility] [address] [id number] [place] [address] Mar, [facility] [place] [facility] [address] [id number] [place] [address] Mar, [facility] [place] [facility] [address] [id number] [place] [address] Mar, [facility] [place] [facility] [address] [id number] [place] [address]- [address] Mar, [facility] [place] [facility] [address] [id number] [place] [address]- [address] Mar, [facility] [place] [facility] [address] [id number] [place] [address]- [address] Mar, [facility] [place] [facility] [address] [id number] [place] [address] Mar, [facility] [place] [facility] [address] [id number] [place] [address] Feb, [facility] [place] [facility] [address] [id number] [place] [address] Feb, [facility] [place] [facility] [address] [id number] [place] [address] 9[address] Feb, [facility] [place] [facility] [address] [id number] [place] [address] 2005 Feb, [facility] [place] [facility] [address] [id number] [place] [address] Feb, [facility] [place] [facility] [address] [id number] [place] [address] 65[address] Feb, [facility] [place] [facility] [address] [id number] [place] [address] 30 Jan, 2014 [facility] [place] [facility] [address] [id number] [place] [address] 30 Jan, 2014 [facility] [place] [facility] [address] [id number] [place] [address] 24 Jan, 2013 [facility] [place] [facility] [address] [id number] [place] [address] 2546 24 Jan, 2013 [facility] [place] [facility] [address] [id number] [place] [address]- [address]46 19 Jan, 2013 [facility] [place] [facility] [address] [id number] [place] [address]- 8636 19 Jan, 2013 [facility] [place] [facility] [address] [id number] [place] [address]- 2548 16 Jan, 2013 [facility] [place] [facility] [address] [id number] [place] [address]- 3480 16 Jan, 2013 [facility] [place] [facility] [address] [id number] [place] [address]- 3839 16 Jan, 2013 [facility] [place] [facility] [address] [id number] [place] [address]- 2644 16 Jan, 2013 [facility] [place] [facility] [address] [id number] [place] [address]- 9945 12 Jan, 2014 [facility] [place] [facility] [address] [id number] [place] [address]- 4520 Jan, 2013 [facility] [place] [facility] [address] [id number] [place] [address]- 8947 Dec, [facility] [place] [facility] [address] [id number] [place] [address]- 2547 Dec, [facility] [place] [facility] [address] [id number] [place] [address]- 2545 Dec, [facility] [place] [facility] [address] [id number] [place] [address]- 2959 Dec, [facility] [place] [facility] [address] [id number] [place] [address]- 3288 Dec, [facility] [place] [facility] [address] [id number] [place] [address]- 2294 Dec, [facility] [place] [facility] [address] [id number] [place] [address]- 0606 Nov, [facility] [place] [facility] [address] [id number] [place] [address]- 1251 Nov, [facility] [place] [facility] [address] [id number] [place] [address]- 6297 Nov, [facility] [place] [facility] [address] [id number] [place] [address]- 3146 Nov, [facility] [place] [facility] [address] [id number] [place] [address]- 7798 Nov, [facility] [place] [facility] [address] [id number] [place] [address]- 8907 Nov, [facility] [place] [facility] [address] [id number] [place] [address]- 3378 Nov, [facility] [place] [facility] [address] [id number] [place] [address]- 9937 Nov, [facility] [place] [facility] [address] [id number] [place] [address]- 7206 Oct, [facility] [place] [facility] [address] [id number] [place] [address]- 5151 Oct, [facility] [place] [facility] [address] [id number] [place] [address]- 8523 Oct, [facility] [place] [facility] [address] [id number] [place] [address]- 2117 Oct, [facility] [place] [facility] [address] [id number] [place] [address]- 5155 September, [facility] [place] [facility] [address] [id number] [place] [address]- 2790 September, [facility] [place] [facility] [address] [id number] [place] [address]- 6342 September, [facility] [place] [facility] [address] [id number] [place] [address] 1789 September, [facility] [address] [id number] [place] [address]- 1445 September, [facility] [place] [facility] [address] [id number] [place] [address]- 5716 September, [facility] [place] [facility] [address] [id number] [place] [address]- 3970 Aug, [facility] [place] [facility] [address] [id number] [place] [address]- 9914 Aug, [facility] [place] [facility] [address] [id number] [place] [address]- 1694 Aug, [facility] [place] [facility] [address] [id number] [place] [address]- 2753 Aug, [facility] [place] [facility] [address] [id number] [place] [address]- 9662 Aug, [facility] [place] [facility] [address] [id number] [place] [address]- 8919 Aug, [facility] [place] [facility] [address] [id number] [place] [address]- 6557 Aug, [facility] [place] [facility] [address] [facility] [id number] [place] [address]- 3365 Aug, [facility] [place] [facility] [address] [id number] [place] [address]- 6893 Jul, [facility] [place] [facility] [address] [id number] [place] [address]- 0920 Jul, [facility] [place] [facility] [address] [id number] [place] [address]- 3144 Jun, [facility] [place] [facility] [address] [id number] [place] [address]- 0968 Jun, [facility] [place] [facility] [address] [facility] [id number] [place] [address]- 9392 Jun, [facility] [place] [facility] [address] [id number] [place] [address]- 2891 Jun, [facility] [place] [facility] [address] [id number] [place] [address]- 4820 Jun, [facility] [place] [facility] [address] [id number] [place] [address]- 5903 May, [facility] [place] [facility] [address] [id number] [place] [address]- 7646 May, [facility] [place] [facility] [address] [id number] [place] [address]- 8168 May, [facility] [place] [facility] [address] [id number] [place] [address]- 4730 May, [facility] [place] [facility] [address] [id number] [place] [address]- 6038 Apr, [facility] [place] [facility] [address] [id number] [place] [address]- 7979 Apr, [facility] [place] [facility] [address] [id number] [place] [address]- 5655 Mar, [facility] [place] [facility] [address] [id number] [place] [address]- 2401 Mar, [facility] [place] [facility] [address] [id number] [place] [address]- 7236 Feb, [facility] [place] [facility] [address] [id number] [place] [address]- 7070 Feb, [facility] [place] [facility] [address] [id number] [place] [address]- 2372 Feb, [facility] [place] [facility] [address] [id number] [place] [address]- 9273 Feb, [facility] [place] [facility] [address] [id number] [place] [address]- 4869 Feb, [facility] [place] [facility] [address] [id number] [place] [address]- 7741 Feb, [facility] [place] [facility] [address] [id number] [place] [address] Feb, [facility] [place] [facility] [address] [id number] [place] [address]- 3324 Jan, [facility] [place] [facility] [address] [id number] [place] [address]- 8676 Jan, [facility] [place] [facility] [address] [id number] [place] [address]- 8608 Dec, [facility] [place] [facility] [address] [id number] [place] [address]- 2770 Dec, [facility] [place] [facility] [address] [id number] [place] [address]- 9132 Dec, [facility] [place] [facility] [address] [id number] [place] [address]- 4758 Dec, [facility] [place] [facility] [address] [id number] [place] [address]- 2933 Dec, [facility] [place] [facility] [address] [id number] [place] [address]- 2706 Nov, [facility] [place] [facility] [address] [id number] [place] [address]- 0042 Nov, [facility] [place] [facility] [address] [id number] [place] [address]- 4530 Nov, [facility] [place] [facility] [address] [id number] [place] [address]- 5721 Oct, [facility] [place] [facility] [address] [id number] [place] [address]- 0456 Oct, [facility] [place] [facility] [address] [id number] [place] [address]- 1209 Oct, [facility] [place] [facility] [address] [id number] [place] [address]- 4150 September, [facility] [place] [facility] [address] [id number] [place] [address]- 2546 Aug, [facility] [address] [id number] [place] [address]- [address] Aug[facility] [address] [id number] [place] [address]- [address] Aug, [facility] [address] [id number] [place] [address]- [address] Jul, [facility] [address] [id number] [place] [address]- 2546 Jul, [facility] [address] [id number] [place] [address]- [address]66 Jul, [facility] [address] [id number] [place] [address]- [address], [facility] [address] [id number] [place] [address] [address], [facility] [address] [id number] [place] [address]- 6698 Jun, [facility] [address] [id number] [place] [address]- [address] Jun, [facility] [address] [id number] [place] [address]- [address], [facility] [address] [id number] [place] [address]- [address], [facility] [address] [id number] [place] [address]- 2546 Apr, [facility] [address] [id number] [place] [address]- [address], [facility] [address] [id number] [place] [address]- 2546 Mar, [facility] [address] [id number] [place] [address]- 2546 Mar, [facility] [place] [facility] [address] [id number] [place] [address]- 5046 Mar, [facility] [place] [facility] [address] [id number] [place] [address]- 2546 Mar, [facility] [place] [address] [id number] [place] [id number] Feb, [facility] [place] [facility] [address] [id number] [place] [address]- 4886 Feb, [facility] [place] [facility] [address] [id number] [place] [address]- 7637 Feb, [facility] [place] [facility] [address] [id number] [place] [address]- 9206 Feb, [facility] [place] [facility] [address] [id number] [place] [address]- 9235 Feb, [facility] [place] [facility] [address] [id number] [place] [address]- 8007 Feb, [facility] [place] [facility] [address] [id number] [place] [address]- 0249 Feb, [facility] [place] [facility] [address] [id number] [place] [address]- 8346 Jan, [facility] [place] [facility] [address] [id number] [place] [address]- 2546 Jan, [facility] [place] [facility] [address] [id number] [place] [address]- 2546 Dec, [facility] [place] [facility] [address] [id number] [place] [address]- 2546 Dec, [facility] [place] [facility] [address] [id number] [place] [address]- 2546 Nov, [facility] [place] [facility] [address] [id number] [place] [address]- 2546 Oct, [facility] [place] [facility] [address] [id number] [place] [address]- 5361 September, [facility] [address] [id number] [place] [address]- 1591 September, [facility] [place] [facility] [address] [id number] [place] [address]- 7156 September, [facility] [place] [facility] [address] [id number] [place] [address]- 5969 Aug, [facility] [place] [facility] [address] [id number] [place] [address]- 8394 May, [facility] [place] [facility] [address] [id number] [place] [address]- 6022 May, [facility] [place] [facility] [address] [id number] [place] [address]- 4498 Apr, [facility] [place] [facility] [address] [id number] [place] [address]- 9792 Apr, [facility] [place] [facility] [address] [id number] [place] [address]- 8835 Apr, [facility] [place] [facility] [address] [id number] [place] [address]- 1518 Apr, [facility] [place] [facility] [address] [id number] [place] [address]- 2897 Apr, [facility] [place] [facility] [address] [id number] [place] [address]- 2065 Mar, [facility] [place] [facility] [address] [id number] [place] [address]- 7166 Feb, [facility] [place] [facility] [address] [id number] [place] [address]- 1726 Feb, [facility] [place] [facility] [address] [id number] [place] [address]- 6133 September, [facility] [place] [facility] [address] [id number] [place] [address] Mar, [facility] [place] [facility] [address] [facility] [id number] [place] [address]- 5080 14 Feb, 2010 [facility] [address] [facility] [id number] [place] [address]- 1815 11 Feb, 2010 [facility] [address] [facility] [id number] [place] [address]- 4413 11 Feb, 2010 IMMUNIZATIONS No Known Immunizations SOCIAL HISTORY Never Assessed REASON FOR VISIT PALS IN-Abilify PLAN OF CARE VITAL SIGNS MEDICATIONS Unknown [...] foot fracture Hospitalization History Via [facility]- Back Pain 03/24/2017
--- OUTSIDE RECORDS SUMMARY | 2018-04-10 18:13 | XMS REPORT ---
Author Author GELY SHAY Organization [facility] Address [address] [place] [address] Care Team Providers Care [facility] [employer] [facility] Name Role Phone GELYGLORIASHAY Unavailable PROBLEMS Type Condition ICD9-CM Code YKP08-AW Code Onset Dates Condition Status SNOMED Code Problem Color blindness H53.50 Active 349255761 Problem Presbyopia of both eyes H52.4 Active 21041451 Problem Nuclear senile cataract of both eyes H25.13 Active 521405439 Problem Astigmatism of both eyes, unspecified type H52.203 Active 48264023 Problem Overactive bladder N32.81 Active 592885195 Problem Essential hypertension I10 Active 04648183 Problem Other chronic pain G89.29 Active 90344001 Problem Hypermetropia of both eyes H52.03 Active 80868837 Problem Alzheimer's disease, unspecified G30.9 Active 049490881 Problem Mild episode of recurrent major depressive disorder F33.0 Active 087242389 Problem 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 Active 322117641 Problem Major depressive disorder, single episode, mild F32.0 Active 05544545 Problem Chronic fatigue R53.82 Active 19149346 Problem Hydrocele, unspecified hydrocele type N43.3 Active 68316862 Problem Other acute pulmonary embolism without acute cor pulmonale I26.99 Active 740406609 Problem 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 Active 791405288 Problem Asymptomatic microscopic hematuria R31.21 Active 678274999 Problem Gait instability R26.81 Active 39785901 Problem PVD (peripheral vascular disease) I73.9 Active 067132098 Problem At high risk for falls Z91.81 Active [id number] Problem 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 Active 38216024 Problem Benign non-nodular prostatic hyperplasia with lower urinary tract symptoms N40.1 Active 018826908 Problem Alzheimers disease with late onset G30.1 Active 807140427 Problem Renal cyst, left Q61.00 Active 11321494 Problem Mixed hyperlipidemia E78.2 Active 448212870 Problem Anxiety F41.9 Active 49363268 Problem Transient cerebral ischemia, unspecified transient cerebral ischemia type G45.9 Active 055520314 Problem Primary insomnia F51.01 Active 979557537 ALLERGIES No Information ENCOUNTERS Encounter Location Date Diagnosis [facility] [id number] [place] [address] 95197- 1774 Dec, [facility] [address] 65857- 8464 Nov, [facility] [address] 41182- 3326 Oct, Edema leg R60.0 [facility] [address] 25585- 9975 September, [facility] [address] 74357- 9811 September, Alzheimers disease with late onset G30.1 and Mild episode of recurrent major depressive disorder F33.0 [facility] [address] 44852- 8766 September, PVD (peripheral vascular disease) I73.9 ; Major depressive disorder, single episode, mild F32.0 ; Chronic fatigue R53.82 ; Weight gain R63.5 and Arthralgia, unspecified joint M25.50 [facility] [id number] [place] [address] 39097- 5772 Aug, Acute low back pain, unspecified back pain laterality, with sciatica presence unspecified M54.5 [facility] [id number] [place] [address] 02338- 5699 Aug, Acute low back pain, unspecified back pain laterality, with sciatica presence unspecified M54.5 [facility] [id number] [place] [address] 68017- 4736 Aug, Pain R52 [facility] [address] [place] [address]- 3937 Jul, [facility] [id number] [place] [address] 89442- 2728 Jun, [facility] [id number] [place] [address] 42810- 0646 07 Jun, 2017 Medicare annual wellness visit, initial Z00.00 ; Mixed hyperlipidemia E78.2 ; Essential hypertension I10 ; Anxiety F41.9 ; Alzheimers disease with late onset G30.1 ; 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 ; Overactive bladder N32.81 ; Primary insomnia F51.01 ; At high risk for falls Z91.81 and Encounter for immunization Z23 [facility] [id number] [place] [address] 38581- 7783 May, [facility] [address] 58248- 2800 May, Essential hypertension I10 and Transient cerebral ischemia, unspecified transient cerebral ischemia type G45.9 [facility] [id number] [place] [address] [id number] May, Dental examination Z01.20 and Dental caries K02.9 [facility] [id number] [place] [address] 82860- 7900 May, [facility] [id number] [place] [address] 81751- 2145 May, [facility] [id number] [place] [address] 34345- 7222 May, Alzheimers disease with late onset G30.1 [facility] [id number] [place] [address] 34623- 6474 Apr, [facility] [address] 84230- 7178 Apr, Alzheimers disease with late onset G30.1 and Mild episode of recurrent major depressive disorder F33.0 [facility] [place] [address] [place] [address]- 7807 Mar, Mild episode of recurrent major depressive disorder F33.0 [facility] [address] 04633- 1352 Mar, Mixed hyperlipidemia E78.2 ; Essential hypertension I10 ; Asymptomatic microscopic hematuria R31.21 and Renal cyst, left Q61.00 [facility] [address] 86076- 3955 Mar, [facility] [address] 79857- 3434 Feb, Encounter for immunization Z23 [facility] [address] 08254- 3333 Feb, [facility] [address] 98297- 9179 Feb, [facility] [address] 10531 -9766 Feb, ANUG (acute necrotizing ulcerative gingivitis) A69.1 [facility] [id number] [place] [address] 67075- 5943 Feb, [facility] [id number] [place] [address] 98113- 4274 Feb, Mild episode of recurrent major depressive disorder F33.0 [facility] [id number] [place] [address] 59194- 6704 Feb, Alzheimers disease with late onset G30.1 and Mild episode of recurrent major depressive disorder F33.0 [facility] [id number] [place] [address] 42559- 1816 Jan, Alzheimers disease with late onset G30.1 [facility] [address] [place] [address] 48986- 2909 18 Jan, 2017 Gait instability R26.81 [facility] [address] [place] [id number] [place] [address] Jan [facility] [address] [id number] [place] [address] Dec [facility] [address] [address]- 3218 Dec, [facility] [address] [address]- 2801 Dec, [facility] [address] [place] [address] 10398- 0848 Dec, Essential hypertension I10 ; Transient cerebral ischemia, unspecified transient cerebral ischemia type G45.9 and Anxiety F41.9 [facility] [address] [place] [address] 10333- 3600 Dec, Gait instability R26.81 [facility] [address] [place] [address] 63645- 9219 Dec, [facility] [address] [place] [address] 65585- 7727 Nov, Alzheimers disease with late onset G30.1 and Mild episode of recurrent major depressive disorder F33.0 [facility] [address] [address]- 8483 Nov, [facility] [address] [address]- 1678 Nov, Gait instability R26.81 [facility] [address] [place] [address] 54451- 5188 Nov, Anxiety F41.9 [facility] [address], [place] [address]- 7482 Nov, [facility] [address] [place] [address]- 9826 Nov, [facility] [address], [place] [address]- 9170 Oct, Gait instability R26.81 [facility] [id number] [place] [address] 94980- 4478 14 Oct, 2016 Anxiety F41.9 [facility] [address] [place] [address] 01409- 2523 13 Oct, 2016 Gait instability R26.81 [facility] [address] [place] [address] 41094- 0928 Oct, Gait instability R26.81 [facility] [address] [place] [address] 00238- 5458 Oct, [facility] [address] [place] [address] 23661- 2643 Oct, Anxiety F41.9 ; Chronic 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 use Z79.899 ; Encounter for immunization Z23 and Transient cerebral ischemia, unspecified transient cerebral ischemia type G45.9 [facility] [address] [place] [address] 47499- 0015 September, [facility] [address] [place] [address] 24381- 5839 September, Gait instability R26.81 [facility] [address] [place] [address] 90968- 0136 September, [facility] [address] [place] [address] 76095- 9725 September, [facility] [address] [place] [address] 90543- 9605 September, [facility] [address] [place] [address] 38386- 7226 September, Alzheimers disease with late onset G30.1 and Mild episode of recurrent major depressive disorder F33.0 [facility] [address] [place] [address] 76464- 0149 September, [facility] [address] [place] [address] 93268- 7392 September, [facility] [id number] [place] [address]- 4959 September, [facility] [id number] [address]- 3129 September, Mild episode of recurrent major depressive disorder F33.0 [facility] [id number], [place] [address]- 4846 Aug, Mild episode of recurrent major depressive disorder F33.0 ; Alzheimers disease with late onset G30.1 ; Other acute pulmonary embolism without acute cor pulmonale I26.99 and Cough R05 [facility] [address], [place] [address]- 1211 Aug, [facility] [id number] [place] [address] 81077- 5656 Aug, Gait instability R26.81 [facility] [address], [place] [address]- 5826 Aug, Alzheimers disease with late onset G30.1 and Mild episode of recurrent major depressive disorder F33.0 [facility] [address], [place] [address]- 5447 Aug, [facility] [id number], [place] [address]- 2884 Aug, 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 [facility] [address], [place] [address]- 9022 Jul, Alzheimers disease with late onset G30.1 [facility] [id number], [place] [address]- 8469 Jul, [facility] [id number], [place] [address]- 5292 Jul, 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 [facility] [id number], [place] [address]- 6195 Jul, Anxiety F41.9 ; Alzheimers disease with late onset G30.1 and Transient cerebral ischemia, unspecified transient cerebral ischemia type G45.9 [facility] [id number] [place] [address] 53807- 6821 Jun, Essential hypertension I10 [facility] [id number] [place] [address] 60276- 9609 Jun, [facility] [address] [place] [address] 20576- 9673 Jun, [facility] [address] [place] [address] 79985- 2605 Jun, [facility] [address] [place] [address] 04052- 3740 Jun, Essential hypertension I10 ; Benign non-nodular prostatic hyperplasia with lower urinary tract symptoms N40.1 ; Anxiety F41.9 ; Pain in right knee M25.561 ; Pain in left knee M25.562 and Other chronic pain G89.29 [facility] [address] [place] [address] 53398- 0921 May, [facility] [address] [place] [address] 01905- 4146 May, [facility] [address] [place] [address] 66177- 4169 May, [facility] [address] [place] [address] 23244- 6496 Apr, [facility] [address] [place] [address] 32182- 9241 Mar, [facility] [address] [place] [address] 95873- 9836 Mar, Mixed hyperlipidemia E78.2 and Essential hypertension I10 [facility] [address] [place] [address] 67654- 7208 Feb, [facility] [address] [place] [address] 98687- 3048 Feb, Ingrown nail L60.0 and Onychomycosis B35.1 [facility] [address] [place] [address] 58600- 4451 Feb, Paronychia, left L03.012 [facility] [address] [place] [address] 02382- 3584 Jan, [facility] [address] 44071- 0100 Jan, Cramps of right lower extremity R25.2 and Mixed hyperlipidemia E78.2 [facility] [address] [place] [address] 28328- 4602 Jan, Cramps of right lower extremity R25.2 ; Essential hypertension I10 ; Mixed hyperlipidemia E78.2 ; Chronic 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 use Z79.899 and Claudication I73.9 [facility] [address] [place] [address] 99657- 6612 Jan, Right leg pain M79.604 [facility] [address] [place] [address] 10015- 1838 Dec, [facility] [address] [place] [address] 65663- 2348 Nov, [facility] [address] [place] [address] 93158- 9371 Nov, [facility] [address] [place] [address] 99114- 6967 Nov, [facility] [address] [place] [address] 54340- 9209 Nov, Dermatofibroma D23.9 [facility] [id number] [place] [address] 91656- 6186 Nov, [facility] [address] [place] [address] 55336- 4718 Oct, [facility] [id number] [place] [address]- 8710 Oct, [facility] [address] [place] [address] 29832- 0647 September, Benign non-nodular prostatic hyperplasia with lower urinary tract symptoms N40.1 ; Essential hypertension I10 ; Overactive bladder N32.81 and Fatigue, unspecified type R53.83 [facility] [address] [place] [address] 40792- 1341 September, [facility] [address] [place] [address] 58813- 3011 September, [facility] [id number] [place] [address] 49232- 9901 Aug, [facility] [address] [place] [address] 50602- 4278 Jul, [facility] [address] [place] [address] 75651- 5893 Jul, Pelvic pain R10.2 ; Jock itch B35.6 ; Essential hypertension I10 and Hydrocele, unspecified hydrocele type N43.3 [facility] [address] [place] [address] 68339- 3063 Jun, [facility] [address], [place] [address]- 5960 Jun, [facility] [address] [place] [address] 30696- 7434 Jun, Benign non-nodular prostatic hyperplasia with lower urinary tract symptoms N40.1 [facility] [id number] [place] [address] 28615- 4108 Jun, Benign non-nodular prostatic hyperplasia with lower urinary tract symptoms N40.1 [facility] [address] [place] [address] 51623- 6754 Jun, [facility] [id number] [place] [address] 02137- 3774 May, [facility] [address] [place] [address] 45075- 8333 Apr, [facility] [address] [place] [address] 61680- 9951 Apr, [facility] [address] [place] [address] 86051- 0514 Apr, Other acute pulmonary embolism without acute cor pulmonale I26.99 ; Anxiety F41.9 ; 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 and long-term 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 use Z79.899 [facility] [address] [place] [address] 88846- 9132 Apr, [facility] [address] [place] [address] 37340- 9927 Apr, [facility] [address] 80114- 2263 Mar, [facility] [id number] [place] [address] 04067- 4324 Mar, [facility] [id number] [place] [address] 73202- 5625 Feb, Cough R05 [facility] [address] [place] [address] 27892- 9555 Feb, [facility] [id number] [place] [address] 06439- 7442 Feb, Encounter for immunization Z23 [facility] [address] [place] [address] 73889- 7470 Feb, Other and unspecified hyperlipidemia 272.4 [facility] [address] [place] [address] 45319- 5575 Jan, [facility] [id number] [place] [address] 33156- 3914 Jan, TIA (transient ischemic attack) 435.9 [facility] [address], [place] [address]- 9285 Dec, [facility] [address] [place] [address] 47281- 1336 Dec, [facility] [address], [place] [address]- 4064 Dec, [facility] [id number] [place] [address] 31553- 2036 Nov, [facility] [id number] [place] [address] 86340- 4319 Oct, Chronic cough 786.2 [facility] [id number] [place] [address] 21476- 2896 Oct, [facility] [id number] [place] [address] 86917- 4363 Oct, [facility] [id number] [place] [address] 41432- 1627 Oct, [facility] [address], [place] [address]- 9394 Oct, [facility] [address] [place] [address] 50173- 5658 Oct, Chronic cough 786.2 [facility] [address], [place] [address]- 3860 Oct, Cough 786.2 ; Hypertension 401.9 ; BPH (benign prostatic hyperplasia) 600.00 ; Other and unspecified hyperlipidemia 272.4 and Hydrocele 603.9 [facility] [address], [place] [address]- 8717 Oct, [facility] [id number] [place] [address] 40798- 5281 September, [facility] [address], [place] [address]- 8427 Aug, [facility] [id number] [place] [address]- 4432 13 Aug, 2014 [facility] [place] [facility] [address] [id number] [place] [address]- 8523 Jul, [facility] [place] [facility] [address] [id number] [place] [address]- 2693 Jul, [facility] [place] [facility] [address] [facility] [id number] [place] [address]- 6315 Jul, [facility] [place] [facility] [address] [id number] [place] [address]- 8612 Jul, [facility] [place] [facility] [address] [id number] [place] [address]- 2002 Jul, [facility] [place] [facility] [address] [id number] [place] [address]- 0252 Jun, 2014 [facility] [place] [facility] [address] [facility] [id number] [place] [address]- 1640 Jun, 2014 [facility] [place] [facility] [address] [facility] [id number] [place] [address]- 6133 Jun, [facility] [place] [facility] [address] [facility] [id number] [place] [address]- 8399 Jun, 2014 [facility] [place] [facility] [address] [facility] [id number] [place] [address]- 7911 Jun, 2014 [facility] [place] [facility] [address] [facility] [id number] [place] [address] 2543 Jun, 2014 [facility] [place] [facility] [address] [id number] [place] [address] 2542 Jun, 2014 [facility] [place] [facility] [address] [id number] [place] [address]- 8222 Jun, [facility] [place] [facility] [address] [facility] [id number] [place] [address]- 2869 May, [facility] [place] [facility] [address] [facility] [id number] [place] [address]- 0955 May, [facility] [place] [facility] [address] [id number] [place] [address]- 2256 May, [facility] [place] [facility] [address] [id number] [place] [address]- 7175 May, [facility] [place] [facility] [address] [id number] [place] [address]- 8266 May, [facility] [place] [facility] [address] [id number] [place] [address]- 8696 May, [facility] [place] [facility] [address] [id number] [place] [address]- 7787 May, [facility] [place] [facility] [address] [id number] [place] [address]- 8808 May, [facility] [place] [facility] [address] [id number] [place] [address]- 1101 May, [facility] [place] [facility] [address] [id number] [place] [address] May, [facility] [place] [facility] [address] [id number] [place] [address] Apr, [facility] [place] [facility] [address] [id number] [place] [address] Apr, [facility] [place] [facility] [address] [id number], [place] [address] Apr, [facility] [place] [facility] [address] [id number], [place] [address] Apr, [facility] [place] [facility] [address] [id number] [place] [address] Apr, [facility] [place] [facility] [address] [id number] [place] [address] Apr, [facility] [place] [facility] [address] [id number] [place] [address] Apr, [facility] [place] [facility] [address] [id number] [place] [address] Apr, [facility] [place] [facility] [address] [id number] [place] [address] Mar, [facility] [place] [facility] [address] [id number] [place] [address] Mar, [facility] [place] [facility] [address] [id number] [place] [address] Mar, [facility] [place] [facility] [address] [id number] [place] [address] Mar, [facility] [place] [facility] [address] [id number] [place] [address] Mar, [facility] [place] [facility] [address] [id number] [place] [address] Mar, [facility] [place] [facility] [address] [id number] [place] [address] Mar, [facility] [place] [facility] [address] [id number] [place] [address] Mar, [facility] [place] [facility] [address] [id number] [place] [address] Mar, [facility] [place] [facility] [address] [id number] [place] [address] Mar, [facility] [place] [facility] [address] [id number] [place] [address] Feb, [facility] [place] [facility] [address] [id number] [place] [address] Feb, [facility] [place] [facility] [address] [id number] [place] [address] Feb, [facility] [place] [facility] [address] [id number] [place] [address] Feb, [facility] [place] [facility] [address] [id number] [place] [address] Feb, [facility] [place] [facility] [address] [id number] [place] [address] 14 Feb, 2014 [facility] [place] [facility] [address] [id number] [place] [address] 30 Jan, 2013 [facility] [place] [facility] [address] [id number] [place] [address] 30 Jan, 2013 [facility] [place] [facility] [address] [id number] [place] [address]- 9202 24 Jan, 2013 [facility] [place] [facility] [address] [id number] [place] [address] 1567 24 Jan, 2013 [facility] [place] [facility] [address] [id number] [place] [address] 7160 19 Jan, 2013 [facility] [place] [facility] [address] [id number] [place] [address] 19 Jan, 2013 [facility] [place] [facility] [address] [id number] [place] [address] 8772 16 Jan, 2013 [facility] [place] [facility] [address] [id number] [place] [address] 4061 16 Jan, 2013 [facility] [place] [facility] [address] [id number] [place] [address] 1197 16 Jan, 2013 [facility] [place] [facility] [address] [id number] [place] [address] 0925 16 Jan, 2013 [facility] [place] [facility] [address] [id number] [place] [address] 6105 12 Jan, 2013 [facility] [place] [facility] [address] [id number] [place] [address]- 9757 12 Jan, 2014 [facility] [place] [facility] [address] [id number] [place] [address] 8972 Dec, [facility] [place] [facility] [address] [id number] [place] [address] 4359 Dec, [facility] [place] [facility] [address] [id number] [place] [address] 2882 Dec, [facility] [place] [facility] [address] [id number] [place] [address] Dec, [facility] [place] [facility] [address] [id number] [place] [address] 0069 Dec, [facility] [place] [facility] [address] [id number] [place] [address] 6[address] Dec, [facility] [place] [facility] [address] [id number] [place] [address] 6[address] Nov, [facility] [place] [facility] [address] [id number] [place] [address] 4719 Nov, [facility] [place] [facility] [address] [id number] [place] [address]- 6021 Nov, [facility] [place] [facility] [address] [id number] [place] [address]- 8513 Nov, [facility] [place] [facility] [address] [id number] [place] [address] 1809 Nov, [facility] [place] [facility] [address] [id number] [place] [address]- 7161 Nov, [facility] [place] [facility] [address] [id number] [place] [address]- 3034 Nov, [facility] [place] [facility] [address] [id number] [place] [address]- 1324 Nov, [facility] [place] [facility] [address] [id number] [place] [address] 7[address] Oct, [facility] [place] [facility] [address] [id number] [place] [address]- 5361 Oct, [facility] [place] [facility] [address] [id number] [place] [address] 3860 Oct, [facility] [place] [facility] [address] [id number] [place] [address] 0045 Oct, [facility] [place] [facility] [address] [id number] [place] [address] 2990 September, [facility] [address] [id number] [place] [address] 1405 September, [facility] [address] [id number] [place] [address] 0412 September, [facility] [address] [id number] [place] [address] 6379 September, [facility] [address] [id number] [place] [address] 6934 September, [facility] [address] [id number] [place] [address] 7297 September, [facility] [address] [id number] [place] [address] 8723 Aug, [facility] [address] [id number] [place] [address] 5450 Aug, [facility] [address] [id number] [place] [address] 5060 Aug, [facility] [address] [id number] [place] [address] 8124 Aug, [facility] [address] [id number] [place] [address]- 4538 Aug, [facility] [place] [facility] [address] [id number] [place] [address] 8376 Aug, [facility] [address] [id number] [place] [address] 2548 Aug, [facility] [place] [facility] [address] [id number] [place] [address] Aug, [facility] [place] [facility] [address] [id number] [place] [address] 0574 Jul, [facility] [place] [facility] [address] [id number] [place] [address] 8718 Jul, [facility] [place] [facility] [address] [id number] [place] [address] 2300 Jun, [facility] [place] [facility] [address] [id number] [place] [address] 5757 Jun, [facility] [place] [facility] [address] [id number] [place] [address] Jun, [facility] [place] [facility] [address] [id number] [place] [address]- 9159 Jun, [facility] [place] [facility] [address] [id number] [place] [address]- 1311 Jun, [facility] [place] [facility] [address] [id number] [place] [address] 3889 May, [facility] [place] [facility] [address] [id number] [place] [address] 2231 May, [facility] [place] [facility] [address] [id number], [place] [address] May, [facility] [place] [facility] [address] [facility] [id number] [place] [address]- 6206 May, [facility] [place] [facility] [address] [facility] [id number] [place] [address]- 2968 Apr, [facility] [place] [facility] [address] [id number], [place] [address] Apr, [facility] [place] [facility] [address] [id number], [place] [address]67 Mar, [facility] [place] [facility] [address] [id number] [place] [address]- 7555 Mar, [facility] [place] [facility] [address] [id number], [place] [address] Feb, [facility] [place] [facility] [address] [facility] [id number] [place] [address]- 8936 Feb, [facility] [place] [facility] [address] [id number] [place] [address] 8603 Feb, [facility] [place] [facility] [address] [id number] [place] [address]- 1738 Feb, [facility] [place] [facility] [address] [id number] [place] [address]- 6867 Feb, [facility] [place] [facility] [address] [id number] [place] [address]- 5797 Feb, [facility] [place] [facility] [address] [id number] [place] [address]- 6009 Feb, [facility] [place] [facility] [address] [id number] [place] [address]- 9497 Jan, [facility] [place] [facility] [address] [id number] [place] [address]- 4206 Jan, [facility] [place] [facility] [address] [id number] [place] [address]- 8314 Dec, [facility] [place] [facility] [address] [id number] [place] [address]- 3963 Dec, [facility] [place] [facility] [address] [id number] [place] [address]- 0476 Dec, [facility] [place] [facility] [address] [id number] [place] [address]- 6309 Dec, [facility] [place] [facility] [address] [id number] [place] [address]- 2853 Dec, [facility] [place] [facility] [address] [id number] [place] [address]- 8692 Nov, [facility] [place] [facility] [address] [id number] [place] [address]- 9456 Nov, [facility] [place] [facility] [address] [id number] [place] [address]- 3134 Nov, [facility] [place] [facility] [address] [id number] [place] [address]- 2435 Oct, [facility] [place] [facility] [address] [id number] [place] [address]- 3102 Oct, [facility] [address] [id number] [place] [address]- 4733 Oct, [facility] [address] [id number] [place] [address]- 3156 September, [facility] [address] [id number] [place] [address]- 4048 Aug, [facility] [address] [id number] [place] [address]- 4007 Aug, [facility] [address] [id number] [place] [address]- 9188 Aug, [facility] [address] [id number] [place] [address]- 1515 Jul, [facility] [address] [id number] [place] [address]- 3623 Jul, [facility] [address] [id number] [place] [address]- 1742 Jul, [facility] [address] [id number] [place] [address]- 7509 Jul, [facility] [address] [id number] [place] [address]- 7662 Jul, [facility] [address] [id number] [place] [address]- 1274 Jun, [facility] [place] [facility] [address] [id number] [place] [address]- 3235 Jun, [facility] [place] [facility] [address] [id number] [place] [address]- 1356 May, [facility] [place] [facility] [address] [id number] [place] [address]- 2546 May, [facility] [place] [facility] [address] [id number], [place] [address] 2546 Apr, [facility] [address] [id number], [place] [address] 2546 Apr, [facility] [place] [facility] [address] [id number], [place] [address]- 2546 Mar, [facility] [address] [facility] [id number], [place] [address]- 2546 Mar, [facility] [place] [facility] [address] [id number], [place] [address]- 2546 Mar, [facility] [address] [facility] [id number], [place] [address]- [address]46 Mar, [facility] [address] [id number] [id number] Feb, [facility] [address] [id number], [place] [address]346 Feb, [facility] [place] [facility] [address] [facility] [id number], [place] [address]- 2236 Feb, [facility] [address] [id number], [place] [address] 7656 Feb, [facility] [place] [facility] [address] [id number], [place] [address]- 9006 Feb, [facility] [address] [id number], [place] [address]- 2546 Feb, [facility] [place] [facility] [address] [id number], [place] [address]- 2546 Feb, [facility] [place] [facility] [address] [id number], [place] [address]- 2546 Jan, [facility] [place] [facility] [address] [id number], [place] [address]- 2546 Jan, [facility] [place] [facility] [address] [facility] [id number], [place] [address]- 2546 Dec, [facility] [place] [facility] [address] [id number] [place] [address] 2546 Dec, [facility] [address] [id number] [place] [address]- 2786 Nov, [facility] [place] [facility] [address] [id number] [place] [address] 2546 Oct, [facility] [address] [id number] [place] [address] 2546 September, [facility] [place] [facility] [address] [id number] [place] [address]- 2546 September, [facility] [address] [id number] [place] [address] 2546 September, [facility] [address] [id number] [place] [address]- 8996 Aug, [facility] [address] [id number] [place] [address]- 8463 May, [facility] [address] [id number] [place] [address]- 6848 May, [facility] [address] [id number] [place] [address]- 5236 Apr, [facility] [address] [facility] [id number] [place] [address]- 4933 Apr, [facility] [address] [id number] [place] [address]- 5872 Apr, [facility] [address] [id number] [place] [address]- 2546 Apr, [facility] [place] [facility] [address] [id number] [place] [address]- 2546 Apr, [facility] [place] [facility] [address] [id number] [place] [address]- 2546 Mar, [facility] [address] [id number] [place] [address]- 4726 Feb, [facility] [address] [facility] [id number], [place] [address]- 5599 Feb, [facility] [address] [id number], [place] [address] 6913 September, [facility] [address] [id number], [place] [address]- 6525 Mar, [facility] [id number], [place] [address] 8473 Feb, [facility] [address] [id number], [place] [address]- 0283 Feb, [facility] [address] [id number], [place] [address]- 4603 Feb, IMMUNIZATIONS No Known Immunizations SOCIAL HISTORY Never Assessed REASON FOR VISIT Referral PLAN OF CARE VITAL SIGNS MEDICATIONS Unknown [...] foot fracture Hospitalization History Via [facility]OR[facility]ouss[facility]- Back Pain 03/24/2017
--- OUTSIDE RECORDS SUMMARY | 2018-04-10 18:14 | XMS REPORT ---
Author Author PASCUAL WHITNEY Organization [facility] Address [address] [place] [address] Care Team Providers Care Risk Compliance Manager Name Role Phone TEA WHITNEYCHIKI Unavailable PROBLEMS Type Condition ICD9-CM Code LYD22-IU Code Onset Dates Condition Status SNOMED Code Problem Hypermetropia of both eyes H52.03 Active 71648234 Problem Transient cerebral ischemia, unspecified transient cerebral ischemia type G45.9 Active 407930861 Problem Color blindness H53.50 Active 027599721 Problem Essential hypertension I10 Active 00103518 Problem Presbyopia of both eyes H52.4 Active 62830535 Problem Anxiety F41.9 Active 11754817 Problem Other chronic pain G89.29 Active 92744801 Problem Overactive bladder N32.81 Active 030051253 Problem At high risk for falls Z91.81 Active [id number] Problem Asymptomatic microscopic hematuria R31.21 Active 042461173 Problem Mixed hyperlipidemia E78.2 Active 518911926 Problem Astigmatism of both eyes, unspecified type H52.203 Active 10402870 Problem Nuclear senile cataract of both eyes H25.13 Active 428524263 Problem 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 Active 788577123 Problem Alzheimer's disease, unspecified G30.9 Active 380901567 Problem Gait instability R26.81 Active 40668813 Problem Mild episode of recurrent major depressive disorder F33.0 Active 908154789 Problem Other acute pulmonary embolism without acute cor pulmonale I26.99 Active 532875196 Problem Hydrocele, unspecified hydrocele type N43.3 Active 13867849 Problem Primary insomnia F51.01 Active 551318851 Problem 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 Active 210748575 Problem 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 Active 36597709 Problem Benign non-nodular prostatic hyperplasia with lower urinary tract symptoms N40.1 Active 138521934 Problem Alzheimers disease with late onset G30.1 Active 770466378 Problem Renal cyst, left Q61.00 Active 96434135 ALLERGIES No Information ENCOUNTERS Encounter Location Date Diagnosis [facility] [id number] [place] [address] 70768- 7871 September, [facility] [id number] [place] [address] 79745- 3900 September, [facility] [id number] [place] [address] 86566- 6712 Aug, [facility] [id number] [place] [address] 35813- 7906 Aug, [facility] [id number] [place] [address] 38879- 0554 Jul, [facility] [id number] [place] [address] 63803- 6079 Jun, [facility] [id number] [place] [address] 47977- 0850 07 Jun, 2017 Medicare annual wellness visit, initial Z00.00 ; Mixed hyperlipidemia E78.2 ; Essential hypertension I10 ; Anxiety F41.9 ; Alzheimers disease with late onset G30.1 ; 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 ; Overactive bladder N32.81 ; Primary insomnia F51.01 ; At high risk for falls Z91.81 and Encounter for immunization Z23 [facility] [id number] [place] [address] 64135- 0173 May, [facility] [id number] [place] [address] 33660- 2930 May, Essential hypertension I10 and Transient cerebral ischemia, unspecified transient cerebral ischemia type G45.9 [facility] [id number] [place] [address] [id number] May, Dental examination Z01.20 and Dental caries K02.9 [facility] [id number] [place] [address] 78783- 5150 May, [facility] [id number] [place] [address] 63600- 1038 May, [facility] [address] 63819- 4890 May, Alzheimers disease with late onset G30.1 [facility] [id number] [place] [address] 03545- 8306 Apr, [facility] [address] 89062- 1303 Apr, Alzheimers disease with late onset G30.1 and Mild episode of recurrent major depressive disorder F33.0 [facility] [address] 32064- 8751 Mar, Mild episode of recurrent major depressive disorder F33.0 [facility] [id number] [place] [address] 98664- 2043 Mar, Mixed hyperlipidemia E78.2 ; Essential hypertension I10 ; Asymptomatic microscopic hematuria R31.21 and Renal cyst, left Q61.00 [place] [facility] [address] 51258- 5167 Mar, [facility] [address] 22420- 2964 Feb, Encounter for immunization Z23 [facility] [address] 38975- 6375 Feb, [facility] [id number] [place] [address] 64086- 8215 Feb, [facility] [id number] [place] [address] 66118 -4121 Feb, ANUG (acute necrotizing ulcerative gingivitis) A69.1 [facility] [id number] [place] [address] 12345- 0909 Feb, [facility] [address] 47862- 2405 Feb, Mild episode of recurrent major depressive disorder F33.0 [facility] [address] [address]- 9878 Feb, Alzheimers disease with late onset G30.1 and Mild episode of recurrent major depressive disorder F33.0 [facility] [address] [address]- 4529 Jan, Alzheimers disease with late onset G30.1 [facility] [id number] [place] [address] 77207- 6363 Jan, Gait instability R26.81 [facility] [address] [id number] [place] [address] Jan [facility] [address] [id number] [place] [address] Dec [facility] [id number] [place] [address] 92203- 7504 Dec, [facility] [id number] [place] [address] 41429- 4197 Dec, [facility] [id number] [place] [address] 91546- 6811 Dec, Essential hypertension I10 ; Transient cerebral ischemia, unspecified transient cerebral ischemia type G45.9 and Anxiety F41.9 [facility] [address] [address]- 6160 Dec, Gait instability R26.81 [facility] [id number] [address]- 1268 Dec, [facility] [id number] [place] [address] 11304- 2680 Nov, Alzheimers disease with late onset G30.1 and Mild episode of recurrent major depressive disorder F33.0 [facility] [address] [address]- 8241 Nov, [facility] [id number] [place] [address] 77346- 9667 Nov, Gait instability R26.81 [facility] [id number] [place] [address] 34492- 4992 Nov, Anxiety F41.9 [facility] [id number] [place] [address] 20517- 2756 Nov, [facility] [id number] [place] [address] 36762- 7890 Nov, [facility] [id number] [place] [address] 07992- 5593 Oct, Gait instability R26.81 [facility] [id number] [place] [address] 55469- 6535 Oct, Anxiety F41.9 [facility] [id number] [place] [address] 37042- 5096 Oct, Gait instability R26.81 [facility] [id number] [place] [address] 80537- 7601 Oct, Gait instability R26.81 [facility] [id number] [place] [address] 32865- 7248 Oct, [facility] [id number] [place] [address] 34760- 9916 Oct, Anxiety F41.9 ; Chronic 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 use Z79.899 ; Encounter for immunization Z23 and Transient cerebral ischemia, unspecified transient cerebral ischemia type G45.9 [facility] [address] [address]- 9463 September, [facility] [id number] [place] [address] 36129- 7172 September, Gait instability R26.81 [facility] [address] [address]- 1898 September, [facility] [id number] [place] [address] 78848- 0733 September, [facility] [address] [address]- 0891 September, [facility] [id number] [place] [address] 89126- 5813 September, Alzheimers disease with late onset G30.1 and Mild episode of recurrent major depressive disorder F33.0 [facility] [id number] [place] [address] 88781- 4214 September, [facility] [id number] [place] [address] 76949- 8534 September, [facility] [id number] [place] [address] 77348- 9413 September, [facility] [id number] [address]- 1453 September, Mild episode of recurrent major depressive disorder F33.0 [facility] [id number] [place] [address] 05602- 8506 Aug, Mild episode of recurrent major depressive disorder F33.0 ; Alzheimers disease with late onset G30.1 ; Other acute pulmonary embolism without acute cor pulmonale I26.99 and Cough R05 [facility] [address], [place] [address]- 1590 Aug, [facility] [address], [place] [address]- 3400 Aug, Gait instability R26.81 [facility] [address], [place] [address]- 4850 Aug, Alzheimers disease with late onset G30.1 and Mild episode of recurrent major depressive disorder F33.0 [facility] [address], [place] [address]- 8287 Aug, [facility] [address], [place] [address]- 2180 Aug, 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 [facility] [id number], [place] [address]- 6361 Jul, Alzheimers disease with late onset G30.1 [facility] [id number] [place] [address] 45548- 8398 Jul, [facility] [id number] [place] [address] 25213- 0093 Jul, 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 [facility] [id number] [place] [address] 07500- 5072 Jul, Anxiety F41.9 ; Alzheimers disease with late onset G30.1 and Transient cerebral ischemia, unspecified transient cerebral ischemia type G45.9 [facility] [id number] [place] [address] 07359- 0711 Jun, Essential hypertension I10 [facility] [id number] [place] [address] 91642- 2247 Jun, [facility] [id number] [place] [address] 93778- 1122 Jun, [facility] [id number] [place] [address] 38633- 2010 Jun, [facility] [id number] [place] [address] 20940- 8423 Jun, Essential hypertension I10 ; Benign non-nodular prostatic hyperplasia with lower urinary tract symptoms N40.1 ; Anxiety F41.9 ; Pain in right knee M25.561 ; Pain in left knee M25.562 and Other chronic pain G89.29 [facility] [id number] [place] [address] 19994- 0956 May, [facility] [id number] [place] [address] 26185- 9200 May, [facility] [id number] [place] [address] 28537- 1493 May, [facility] [id number] [place] [address] 25620- 6759 Apr, [facility] [id number] [place] [address] 22420- 3025 Mar, [facility] [id number] [place] [address] 56673- 7909 Mar, Mixed hyperlipidemia E78.2 and Essential hypertension I10 [facility] [address] 25384- 6769 Feb, [facility] [address] 22615- 6380 Feb, Ingrown nail L60.0 and Onychomycosis B35.1 [facility] [facility] [address] 96143- 9737 Feb, Paronychia, left L03.012 [facility] [id number] [place] [address] 44491- 8900 Jan, [facility] [id number] [place] [address] 51464- 7891 Jan, Cramps of right lower extremity R25.2 and Mixed hyperlipidemia E78.2 [facility] [id number] [place] [address] 67116- 9058 Jan, Cramps of right lower extremity R25.2 ; Essential hypertension I10 ; Mixed hyperlipidemia E78.2 ; Chronic 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 use Z79.899 and Claudication I73.9 [facility] [id number] [place] [address] 35412- 2288 Jan, Right leg pain M79.604 [facility] [id number] [place] [address] 21041- 5942 Dec, [facility] [id number] [place] [address] 34543- 0678 Nov, [facility] [address], [place] [address]- 1806 Nov, [facility] [address], [place] [address]- 5927 Nov, [facility] [address], [place] [address]- 4731 Nov, Dermatofibroma D23.9 [facility] [id number] [place] [address] 67320- 7735 Nov, [facility] [id number] [address]- 1154 Oct, [facility] [id number] [place] [address] 33127- 7006 Oct, [facility] [id number] [place] [address] 17854- 1795 September, Benign non-nodular prostatic hyperplasia with lower urinary tract symptoms N40.1 ; Essential hypertension I10 ; Overactive bladder N32.81 and Fatigue, unspecified type R53.83 [facility] [address], [place] [address]- 7032 September, [facility] [id number] [place] [address] 36113- 1075 September, [facility] [address], [place] [address]- 4180 Aug, [facility] [address], [place] [address]- 1574 Jul, [facility] [address], [place] [address]- 3600 Jul, Pelvic pain R10.2 ; Jock itch B35.6 ; Essential hypertension I10 and Hydrocele, unspecified hydrocele type N43.3 [facility] [address], [place] [address]- 3191 Jun, [facility] [id number] [place] [address] 11874- 7862 Jun, [facility] [id number] [place] [address] 14552- 0730 Jun, Benign non-nodular prostatic hyperplasia with lower urinary tract symptoms N40.1 [facility] [id number] [place] [address] 82465- 9347 Jun, Benign non-nodular prostatic hyperplasia with lower urinary tract symptoms N40.1 [facility] [id number] [place] [address] 96904- 4128 Jun, [facility] [address] 41724- 7914 May, [facility] [id number] [place] [address] 15907- 6506 Apr, [facility] [id number] [place] [address] 03763- 1798 Apr, [facility] [id number] [place] [address] 42587- 7597 Apr, Other acute pulmonary embolism without acute cor pulmonale I26.99 ; Anxiety F41.9 ; 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 and halfway 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 use Z79.899 [facility] [id number] [place] [address] 34749- 4022 Apr, [facility] [id number] [place] [address] 07195- 5183 Apr, [facility] [id number] [place] [address] 66655- 0545 Mar, [facility] [id number] [place] [address] 19303- 8363 Mar, [facility] [id number] [place] [address] 88162- 5284 Feb, Cough R05 [facility] [id number] [place] [address] 29386- 5109 Feb, [facility] [address], [place] [address]- 4476 Feb, Encounter for immunization Z23 [facility] [address], [place] [address]- 3623 Feb, Other and unspecified hyperlipidemia 272.4 [facility] [id number] [place] [address] 12380- 1878 Jan, [facility] [address], [place] [address]- 7894 Jan, TIA (transient ischemic attack) 435.9 [facility] [id number] [place] [address] 06107- 5467 Dec, [facility] [address], [place] [address]- 8666 Dec, [facility] [address], [place] [address]- 3265 Dec, [facility] [address], [place] [address]- 9784 Nov, [facility] [address], [place] [address]- 3479 Oct, Chronic cough 786.2 [facility] [address], [place] [address]- 7673 Oct, [facility] [address], [place] [address]- 8412 Oct, [facility] [address], [place] [address]- 7019 Oct, [facility] [address], [place] [address]- 5827 Oct, [facility] [id number] [address]- 4206 Oct, Chronic cough 786.2 [facility] [address], [place] [address]- 1480 Oct, Cough 786.2 ; Hypertension 401.9 ; BPH (benign prostatic hyperplasia) 600.00 ; Other and unspecified hyperlipidemia 272.4 and Hydrocele 603.9 [facility] [address] 0112 Oct, [facility] [id number] [place] [address] 57087- 0055 September, [facility] [id number] [place] [address] 96172- 1181 Aug, [facility] [id number] [place] [address] 66448- 3909 Aug, [facility] [id number] [place] [address] 06457- 3853 Jul, [facility] [id number] [place] [address] 36860- 9525 Jul, [facility] [address], [place] [address]- 0048 Jul, [facility] [id number] [place] [address] 19878- 8221 Jul, [facility] [address], [place] [address]- 9887 Jul, [facility] [address], [place] [address]- 2153 Jun, [facility] [address] 7604 Jun, [facility] [id number] [place] [address] 560292- 9213 Jun, [facility] [address] 7369 Jun, [facility] [id number] [address]- 6254 Jun, [facility] [place] [facility] [address] [id number] [place] [address]- 9190 Jun, [facility] [place] [facility] [address] [id number] [place] 9027 Jun, [facility] [place] [facility] [address] [id number] [place] [address]- 2305 Jun, [facility] [place] [facility] [address] [id number] [place] [address]- 0832 May, [facility] [place] [facility] [address] [id number] [place] [address]- 2914 May, [facility] [place] [facility] [address] [id number] [place] [address]- 6791 May, [facility] [place] [facility] [address] [id number] [place] [address]- 3186 May, [facility] [place] [facility] [address] [id number] [place] [address]- 6135 May, [facility] [place] [facility] [address] [id number] [place] [address]- 0355 May, [facility] [place] [facility] [address] [facility] [id number] [place] [address]- 7105 May, [facility] [place] [facility] [address] [id number] [place] [address]- 9647 May, [facility] [place] [facility] [address] [id number] [address]- 5076 May, [facility] [place] [facility] [address] [id number] [place] [address]- 3488 May, [facility] [place] [facility] [address] [id number] [place] [address] Apr, [facility] [place] [facility] [address] [id number] [place] [address] Apr, [facility] [place] [facility] [address] [id number] [place] [address] Apr, [facility] [place] [facility] [address] [id number] [place] [address] Apr, [facility] [place] [facility] [address] [id number] [place] [address] Apr, [facility] [place] [facility] [address] [id number] [place] [address] Apr, [facility] [place] [facility] [address] [id number] [place] [address] Apr, [facility] [place] [facility] [address] [id number] [place] [address] Apr, [facility] [place] [facility] [address] [id number] [place] [address] Mar, [facility] [place] [facility] [address] [id number] [place] [address] Mar, [facility] [place] [facility] [address] [id number] [place] [address] Mar, [facility] [place] [facility] [address] [id number] [place] [address] Mar, [facility] [place] [facility] [address] [id number] [place] [address] Mar, [facility] [place] [facility] [address] [id number] [place] [address] Mar, [facility] [place] [facility] [address] [id number] [place] [address] Mar, [facility] [place] [facility] [address] [id number] [place] [address] Mar, [facility] [place] [facility] [address] [id number] [place] [address] Mar, [facility] [place] [facility] [address] [id number] [place] [address] Mar, [facility] [place] [facility] [address] [id number] [place] [address] 30 Feb, 2014 [facility] [place] [facility] [address] [id number] [place] [address] 30 Feb, 2014 [facility] [place] [facility] [address] [id number] [place] [address] 29 Feb, 2014 [facility] [place] [facility] [address] [id number] [place] [address] 29 Feb, 2014 [facility] [place] [facility] [address] [id number] [place] [address] 14 Feb, 2014 [facility] [place] [facility] [address] [id number] [place] [address] 14 Feb, 2014 [facility] [place] [facility] [address] [address] [id number] [place] [address] 30 Jan, 2013 [facility] [place] [facility] [address] [id number] [place] [address] 30 Sep, 2013 [facility] [place] [facility] [address] [id number] [place] [address] 24 Sep, 2013 [facility] [place] [facility] [address] [id number] [place] [address] 24 Sep, 2013 [facility] [place] [facility] [address] [id number], [place] [address] 19 Sep, 2013 [facility] [place] [facility] [address] [id number], [place] [address] 19 Sep, 2013 [facility] [place] [facility] [address] [id number] [place] [address] 16 Sep, 2013 [facility] [place] [facility] [address] [id number] [place] [address] 16 Sep, 2013 [facility] [place] [facility] [address] [id number] [place] [address] 16 Sep, 2013 [facility] [place] [facility] [address] [id number] [place] [address] 16 Jan, 2014 [facility] [place] [facility] [address] [id number] [place] [address] Jan, [facility] [place] [facility] [address] [id number] [place] [address] 99[address] Jan, [facility] [place] [facility] [address] [id number] [place] [address] 1691 Dec, [facility] [place] [facility] [address] [id number] [place] [address] Dec, [facility] [place] [facility] [address] [id number] [place] [address] 7000 Dec, [facility] [place] [facility] [address] [id number] [place] [address] 59[address] Dec, [facility] [place] [facility] [address] [id number] [place] [address] 7616 Dec, [facility] [place] [facility] [address] [id number] [place] [address] 7642 Dec, [facility] [place] [facility] [address] [id number] [place] [address]- 8567 Nov, [facility] [place] [facility] [address] [id number] [place] [address] 477[address] Nov, [facility] [place] [facility] [address] [id number] [place] [address] 3265 Nov, [facility] [place] [facility] [address] [id number] [place] [address] 4463 Nov, [facility] [place] [facility] [address] [id number] [place] [address] 8649 Nov, [facility] [place] [facility] [address] [id number] [place] [address] 3558 Nov, [facility] [place] [facility] [address] [id number] [place] [address] 1239 Nov, [facility] [place] [facility] [address] [id number] [place] [address] 6[address] Nov, [facility] [place] [facility] [address] [id number] [place] [address] 6195 Oct, [facility] [place] [facility] [address] [id number] [place] [address]- 4517 Oct, [facility] [place] [facility] [address] [id number] [place] [address]- 5424 Oct, [facility] [place] [facility] [address] [id number] [place] [address] 8317 Oct, [facility] [place] [facility] [address] [id number] [place] [address]- 0473 September, [facility] [place] [facility] [address] [id number] [place] [address] September, [facility] [place] [facility] [address] [id number] [place] [address] 58[address] September, [facility] [place] [facility] [address] [id number] [place] [address]- 7769 September, [facility] [place] [facility] [address] [id number] [place] [address]- 4606 September, [facility] [place] [facility] [address] [id number] [place] [address] 6[address] September, [facility] [place] [facility] [address] [id number] [place] [address] 1012 Aug, [facility] [place] [facility] [address] [id number] [place] [address] 1263 Aug, [facility] [place] [facility] [address] [id number] [place] [address] 2892 Aug, [facility] [place] [facility] [address] [id number] [place] [address] 0296 Aug, [facility] [place] [facility] [address] [id number] [place] [address] 8674 Aug, [facility] [place] [facility] [address] [id number] [place] [address]- 7564 Aug, [facility] [place] [facility] [address] [id number] [place] [address] 8987 Aug, [facility] [place] [facility] [address] [facility] [id number] [place] [address]- 7312 Aug, [facility] [place] [facility] [address] [id number] [place] [address] 9617 Jul, [facility] [place] [facility] [address] [id number] [place] [address]- 2627 Jul, [facility] [place] [facility] [address] [id number] [place] [address] 9542 Jun, [facility] [place] [facility] [address] [facility] [id number] [place] [address]- 4111 Jun, [facility] [place] [facility] [address] [facility] [id number] [place] [address]- 1819 Jun, [facility] [place] [facility] [address] [facility] [id number] [place] [address]- 9240 Jun, [facility] [place] [facility] [address] [facility] [id number] [place] [address]- 9833 Jun, [facility] [place] [facility] [address] [facility] [id number] [place] [address]- 7875 May, [facility] [place] [facility] [address] [id number] [place] [address]- 8032 May, [facility] [place] [facility] [address] [id number] [place] [address] 4251 May, [facility] [place] [facility] [address] [facility] [id number] [place] [address] 7024 May, [facility] [place] [facility] [address] [facility] [id number], [place] [address] 280[address] Apr, [facility] [place] [facility] [address] [id number] [place] [address]- 3292 Apr, [facility] [place] [facility] [address] [id number] [place] [address]- 1643 Mar, [facility] [place] [facility] [address] [id number] [place] [address] 3165 Mar, [facility] [place] [facility] [address] [id number] [place] [address] 5505 Feb, [facility] [place] [facility] [address] [id number] [place] [address] 1870 Feb, [facility] [place] [facility] [address] [id number] [place] [address]- 1107 Feb, [facility] [place] [facility] [address] [id number] [place] [address]- 4392 Feb, [facility] [place] [facility] [address] [id number] [place] [address]- 7484 Feb, [facility] [place] [facility] [address] [id number] [place] [address]- 5308 Feb, [facility] [place] [facility] [address] [id number] [place] [address]- 0664 Feb, [facility] [place] [facility] [address] [id number] [place] [address]- 5580 Jan, [facility] [place] [facility] [address] [id number] [place] [address]- 9349 Jan, [facility] [place] [facility] [address] [id number] [place] [address]- 0232 Dec, [facility] [place] [facility] [address] [id number] [place] [address]- 2289 Dec, [facility] [place] [facility] [address] [id number] [place] [address] 2737 15 Dec, 2012 [facility] [place] [facility] [address] [id number] [place] [address]- 2016 Dec, [facility] [address] [id number] [place] [address]- 1571 Dec, [facility] [place] [facility] [address] [id number] [place] [address]- 6556 Nov, [facility] [place] [facility] [address] [id number] [place] [address]- 2540 Nov, [facility] [place] [facility] [address] [id number] [place] [address]- 0017 Nov, [facility] [place] [facility] [address] [id number] [place] [address]- 9044 Oct, [facility] [place] [facility] [address] [id number] [place] [address]- 7469 Oct, [facility] [place] [facility] [address] [id number] [place] [address]- 5606 Oct, [facility] [place] [facility] [address] [id number] [place] [address]- 7140 September, [facility] [place] [facility] [address] [id number] [place] [address]- 2510 Aug, [facility] [place] [facility] [address] [id number] [place] [address]- 2285 Aug, [facility] [place] [facility] [address] [id number] [place] [address]- 2807 Aug, [facility] [place] [facility] [address] [id number] [place] [address]- 2542 Jul, [facility] [place] [facility] [address] [id number] [place] [address]- 2542 18 Jul, 2012 [facility] [place] [facility] [address] [id number] [place] [address]- 2546 15 Jul, 2012 [facility] [place] [facility] [address] [id number] [place] [address]- 2546 Jul, [facility] [place] [facility] [address] [id number] [place] [address]- 2546 Jul, [facility] [address] [id number] [place] [address]- 9326 Jun, [facility] [address] [id number] [place] [address]- 2546 Jun, [facility] [address] [id number] [place] [address]- 2546 May, [facility] [address] [id number] [place] [address]- 2546 May, [facility] [address] [id number] [place] [address]- 9276 Apr, [facility] [address] [id number] [place] [address]- 4986 Apr, [facility] [address] [id number] [place] [address]- 1036 Mar, [facility] [address] [id number] [place] [address]- 7687 Mar, [facility] [address] [id number] [place] [address]- 4036 Mar, [facility] [address] [id number], [place] [address]226 Mar, [facility] [address] [id number] [id number] Feb, [facility] [address] [facility] [id number], [place] [address]- 2226 Feb, [facility] [place] [facility] [address] [facility] [id number] [place] [address]- 7446 Feb, [facility] [place] [facility] [address] [facility] [id number], [place] [address]- 6936 Feb, [facility] [address] [facility] [id number], [place] [address]- 6756 Feb, [facility] [place] [facility] [address] [id number] [place] [address] 2548 Feb, [facility] [address] [id number] [place] [address]- 1911 Feb, [facility] [address] [id number] [place] [address] 2546 Jan, [facility] [address] [id number] [place] [address], [place] [address] 2546 Jan, [facility] [address] [id number] [place] [address]- 8456 Dec, [facility] [address] [id number] [place] [address]- 3346 Dec, [facility] [address] [id number] [place] [address]- 7769 Nov, [facility] [address] [id number] [place] [address]- 0210 Oct, [facility] [address] [id number] [place] [address]- 4226 September, [facility] [address] [id number] [place] [address]- 3561 September, [facility] [address] [id number] [place] [address]- 5114 September, [facility] [address] [id number] [place] [address]- 7820 Aug, [facility] [place] [facility] [address] [id number] [place] [address]- 5145 May, [facility] [place] [facility] [address] [id number] [place] [address]- 6096 May, [facility] [address] [id number] [place] [address]- 6727 Apr, [facility] [address] [id number], [place] [address]- 6725 Apr, [facility] [address] [facility] [id number][place] [address]898 Apr, [facility] [address] [facility] [id number], [place] [address]- 4976 Apr, [facility] [address] [facility] [id number], [place] [address]- 5534 Apr, [facility] [address] [facility] [id number][place] [address] Mar, [facility] [address] [facility] [id number], [place] [address]- 2428 Feb, [facility] [address] [facility] [id number], [place] [address]- 2215 Feb, [facility] [id number], [place] [address] 8572 September, [facility] [id number], [place] [address] 2470 Mar, [facility] [address] [id number], [place] [address] 9477 Feb, [facility] [address] [id number], [place] [address]- 7829 Feb, [facility] [address] [id number], [place] [address] 1148 Feb, IMMUNIZATIONS No Known Immunizations SOCIAL HISTORY Never Assessed REASON FOR VISIT f/mag Alcantara RN PLAN OF CARE Activity Details Follow Up 3 Months Reason: VITAL SIGNS Height 65 in 2016-12-13 Heart Rate 88 bpm 2016-12-13 Blood pressure systolic 122 mmHg 2016-12-13 Blood pressure diastolic 72 mmHg 2016-12-13 MEDICATIONS Medication Instructions Dosage Frequency Start Date End Date Duration Status Abilify 5 mg Orally Once a day 1 tablet 24h 30 day(s) Active Aricept 5 mg Orally Once a day 1 tablet at bedtime 24h 30 days Active Namenda 10 MG Orally Twice a day 1 tablet 12h Active Trazodone HCl 100 mg Orally Once a day 1 tablet at bedtime 24h 30 days Active Cymbalta 30 MG Orally Once a day 1 capsule 24h 30 Active RESULTS No Results PROCEDURES Procedure Date Ordered Result Body Site [facility] VISIT ESTABLISHED PATIENT December 13, 2016 INSTRUCTIONS MEDICATIONS ADMINISTERED No Known Medications MEDICAL [...] Hospitalization History foot fracture Hospitalization History [facility]- Back Pain 03/24/2017
--- OUTSIDE RECORDS SUMMARY | 2018-04-10 18:15 | XMS REPORT ---
Author Author GELY SHAY Organization [facility] Address [address] [place] [address] Care Team Providers Care Geoscience Technician Name Role Phone GELYGLORIASHAY Unavailable PROBLEMS Type Condition ICD9-CM Code KWE82-WA Code Onset Dates Condition Status SNOMED Code Problem Color blindness H53.50 Active 483109874 Problem Presbyopia of both eyes H52.4 Active 59899651 Problem Nuclear senile cataract of both eyes H25.13 Active 564107230 Problem Astigmatism of both eyes, unspecified type H52.203 Active 08521673 Problem Overactive bladder N32.81 Active 011370997 Problem Essential hypertension I10 Active 99712871 Problem Other chronic pain G89.29 Active 83135450 Problem Hypermetropia of both eyes H52.03 Active 88410597 Problem Alzheimer's disease, unspecified G30.9 Active 226268643 Problem Mild episode of recurrent major depressive disorder F33.0 Active 218467141 Problem 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 Active 325495317 Problem Major depressive disorder, single episode, mild F32.0 Active 15637335 Problem Chronic fatigue R53.82 Active 73039445 Problem Hydrocele, unspecified hydrocele type N43.3 Active 34887104 Problem Other acute pulmonary embolism without acute cor pulmonale I26.99 Active 082168286 Problem 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 Active 499508036 Problem Asymptomatic microscopic hematuria R31.21 Active 732018942 Problem Gait instability R26.81 Active 05632932 Problem PVD (peripheral vascular disease) I73.9 Active 554948949 Problem At high risk for falls Z91.81 Active [id number] Problem 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 Active 15721511 Problem Benign non-nodular prostatic hyperplasia with lower urinary tract symptoms N40.1 Active 556136076 Problem Alzheimers disease with late onset G30.1 Active 777366778 Problem Renal cyst, left Q61.00 Active 95152727 Problem Mixed hyperlipidemia E78.2 Active 639516643 Problem Anxiety F41.9 Active 87677149 Problem Transient cerebral ischemia, unspecified transient cerebral ischemia type G45.9 Active 678595889 Problem Primary insomnia F51.01 Active 782277473 ALLERGIES Substance Reaction Event Type Date Status Vicodin Unknown Drug Allergy Jun, Active Lovastatin had a reaction to a statin but is unsure of which statin it was Drug Allergy Jun, Active Codeine Sulfate Unknown Drug Allergy Jun, Active ENCOUNTERS Encounter Location Date Diagnosis [place] [address] [address] Dec, [place] [address] 30969- 5697 Nov, [place] [address] [address]- 3128 Oct, Edema leg R60.0 [place] [address] 35154- 6335 September, [place] [address] 17234- 9408 September, Alzheimers disease with late onset G30.1 and Mild episode of recurrent major depressive disorder F33.0 [place] [address] 31179- 2841 September, PVD (peripheral vascular disease) I73.9 ; Major depressive disorder, single episode, mild F32.0 ; Chronic fatigue R53.82 ; Weight gain R63.5 and Arthralgia, unspecified joint M25.50 [place] [address] 43542- 7881 Aug, Acute low back pain, unspecified back pain laterality, with sciatica presence unspecified M54.5 [place] [address] 85067- 6138 Aug, Acute low back pain, unspecified back pain laterality, with sciatica presence unspecified M54.5 [facility] [address] [place] [id number] [place] [address] 59117- 0460 Aug, Pain R52 [facility] [address] [place] [id number] [place] [address] 77025- 8652 Jul, [facility] [address] [place] [id number] [place] [address] 63632- 7931 Jun, [facility] [address] 79833- 4656 Jun, Mixed hyperlipidemia E78.2 ; Medicare annual wellness visit , initial Z00.00 ; Essential hypertension I10 ; Anxiety F41.9 ; Alzheimers disease with late onset G30.1 ; 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 ; Overactive bladder N32.81 ; Primary insomnia F51.01 ; At high risk for falls Z91.81 and Encounter for immunization Z23 [facility] [address] [address]- 28[address] May, [place] [address] 66026- 0821 May, Essential hypertension I10 and Transient cerebral ischemia, unspecified transient cerebral ischemia type G45.9 [facility] [address] [place] [id number] [place] [address] [id number] May, Dental examination Z01.20 and Dental caries K02.9 [facility] [address] [place] [id number] [place] [address] 81157- 1948 May, [facility] [address] [place] [id number] [place] [address] 19291- 0571 May, [facility] [address] 22083- 1836 May, Alzheimers disease with late onset G30.1 [facility] [address] [place] [id number] [place] [address] 93044- 4694 Apr, [facility] [address] 34214- 3184 Apr, Alzheimers disease with late onset G30.1 and Mild episode of recurrent major depressive disorder F33.0 [facility] [address] [place] [id number] [place] [address] 55468- 2056 Mar, Mild episode of recurrent major depressive disorder F33.0 [facility] [address] [place] [id number] [place] [address] 10520- 2763 Mar, Mixed hyperlipidemia E78.2 ; Essential hypertension I10 ; Asymptomatic microscopic hematuria R31.21 and Renal cyst, left Q61.00 [facility] [address] [place] [id number] [place] [address] 87715- 2102 Mar, [place] [address] 00815- 9509 Feb, Encounter for immunization Z23 [place] [address] 63364- 4742 Feb, [facility] [address] [place] [id number] [place] [address] 93989- 9475 Feb, [facility] [address] 65721 -9060 Feb, ANUG (acute necrotizing ulcerative gingivitis) A69.1 [facility] [address] [place] [id number] [place] [address] 97546- 6577 Feb, [facility] [address] 89717- 6119 Feb, Mild episode of recurrent major depressive disorder F33.0 [facility] [address] [place] [id number] [place] [address] 52811- 1918 Feb, Alzheimers disease with late onset G30.1 and Mild episode of recurrent major depressive disorder F33.0 [facility] [address] [place] [id number] [place] [address] 31813- 1231 Jan, Alzheimers disease with late onset G30.1 [facility] [address] [address]- 6437 Jan, Gait instability R26.81 [facility] [address] [id number] [place] [address] Jan [facility] [address] [id number] [place] [address] Dec [facility] [address] [place] [id number] [place] [address] 05286- 1187 Dec, [facility] [address] [place] [id number] [place] [address] 81747- 6437 Dec, [facility] [address] [place] [id number] [place] [address] 89104- 5182 Dec, Essential hypertension I10 ; Transient cerebral ischemia, unspecified transient cerebral ischemia type G45.9 and Anxiety F41.9 [facility] [address] [place] [id number] [place] [address] 25371- 2347 Dec, Gait instability R26.81 [facility] [address] [place] [id number] [place] [address] 31775- 2597 Dec, [facility] [address] [place] [id number] [place] [address] 02492- 3269 Nov, Alzheimers disease with late onset G30.1 and Mild episode of recurrent major depressive disorder F33.0 [facility] [address] [address]- 6174 Nov, [facility] [address] [place] [id number] [place] [address] 45309- 3230 Nov, Gait instability R26.81 [facility] [id number] [place] [address] 33944- 8649 Nov, Anxiety F41.9 [facility] [address], [place] [address]- 7416 Nov, [facility] [address] [place] [id number] [place] [address] 21547- 8841 Nov, [facility] [address], [place] [address]- 8401 Oct, Gait instability R26.81 [facility] [address] [place] [id number] [place] [address] 62574- 4112 Oct, Anxiety F41.9 [facility] [address] [place] [id number] [place] [address] 06316- 5028 Oct, Gait instability R26.81 [facility] [address] [place] [id number] [place] [address] 50882- 5436 Oct, Gait instability R26.81 [facility] [address] [place] [id number] [place] [address] 68003- 6318 Oct, [facility] [address] [place] [id number] [place] [address] 67955- 3726 Oct, Anxiety F41.9 ; Chronic 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 use Z79.899 ; Encounter for immunization Z23 and Transient cerebral ischemia, unspecified transient cerebral ischemia type G45.9 [facility] [address] [place] [address] [address]- 6466 September, [facility] [address] [place] [id number] [place] [address] 09375- 3059 September, Gait instability R26.81 [facility] [address], [place] [address]- 4675 September, [facility] [address] [address]- 8471 September, [facility] [address] [place] [id number] [address]- 0744 September, [facility] [address] [place] [id number] [place] [address] 99720- 5772 September, Alzheimers disease with late onset G30.1 and Mild episode of recurrent major depressive disorder F33.0 [facility] [address] [place] [id number] [place] [address] 10839- 9869 September, [facility] [address], [place] [address]- 5088 September, [facility] [address], [place] [address]- 4331 September, [facility] [address] [address]- 6342 September, Mild episode of recurrent major depressive disorder F33.0 [facility] [address] [address]- 9236 Aug, Mild episode of recurrent major depressive disorder F33.0 ; Alzheimers disease with late onset G30.1 ; Other acute pulmonary embolism without acute cor pulmonale I26.99 and Cough R05 [facility] [address], [place] [address]- 4835 Aug, [facility] [address], [place] [address]- 3539 Aug, Gait instability R26.81 [facility] [address] [address]- 1814 Aug, Alzheimers disease with late onset G30.1 and Mild episode of recurrent major depressive disorder F33.0 [facility] [address], [place] [address]- 4950 Aug, [facility] [address], [place] [address]- 3586 Aug, 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 [facility] [address], [place] [address]- 7531 Jul, Alzheimers disease with late onset G30.1 [facility] [address], [place] [address]- 9802 Jul, [facility] [address], [place] [address]- 6447 Jul, 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 [facility] [address] [place] [address] 96500- 5033 Jul, Anxiety F41.9 ; Alzheimers disease with late onset G30.1 and Transient cerebral ischemia, unspecified transient cerebral ischemia type G45.9 [facility] [id number] [place] [address] 65349- 8508 Jun, Essential hypertension I10 [facility] [address] [place] [id number] [place] [address] 65012- 3393 Jun, [facility] [address] [place] [id number] [place] [address] 69691- 1297 Jun, [facility] [address] [place] [id number] [place] [address] 88660- 1741 Jun, [facility] [address] [place] [id number] [place] [address] 63624- 2087 Jun, Essential hypertension I10 ; Benign non-nodular prostatic hyperplasia with lower urinary tract symptoms N40.1 ; Anxiety F41.9 ; Pain in right knee M25.561 ; Pain in left knee M25.562 and Other chronic pain G89.29 [facility] [address] [place] [id number] [place] [address] 88898- 5355 May, [facility] [address] [place] [id number] [place] [address] 78739- 5329 May, [facility] [address] [place] [id number] [place] [address] 05211- 8274 May, [facility] [address] [place] [id number] [place] [address] 12807- 8526 Apr, [facility] [address] [place] [id number] [place] [address] 96033- 4353 Mar, [facility] [address] [place] [address] 53763- 6602 Mar, Mixed hyperlipidemia E78.2 and Essential hypertension I10 [facility] [address] [place] [id number] [place] [address] 29142- 8451 Feb, [facility] [address] 69695- 8620 Feb, Ingrown nail L60.0 and Onychomycosis B35.1 [facility] [address] [place] [id number] [place] [address] 83709- 1392 Feb, Paronychia, left L03.012 [facility] [address] [place] [id number] [place] [address] 32270- 4582 Jan, [place] [address] 18431- 9528 Jan, Mixed hyperlipidemia E78.2 and Cramps of right lower extremity R25.2 [place] [address] [place] [id number] [place] [address] 99496- 3390 Jan, Cramps of right lower extremity R25.2 ; Essential hypertension I10 ; Mixed hyperlipidemia E78.2 ; Chronic 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 use Z79.899 and Claudication I73.9 [place] [address] [place] [id number] [place] [address] 03532- 7473 Jan, Right leg pain M79.604 [place] [address] [place] [id number] [place] [address] 33660- 7652 Dec, [facility] [address] [place] [id number] [place] [address] 81108- 4978 Nov, [facility] [address] [place] [id number] [place] [address] 54707- 4410 Nov, [place] [address] 78899- 7314 Nov, [facility] [address] [place] [id number] [place] [address] 46514- 3060 Nov, Dermatofibroma D23.9 [facility] [address] 67517- 5216 Nov, [facility] [address], [place] [address]- 5679 Oct, [facility] [address] [place] [id number] [place] [address] 944421- 1156 Oct, [facility] [address] [place] [id number] [place] [address] 34087- 4259 September, Benign non-nodular prostatic hyperplasia with lower urinary tract symptoms N40.1 ; Essential hypertension I10 ; Overactive bladder N32.81 and Fatigue, unspecified type R53.83 [facility] [address] [place] [id number] [place] [address] 74126- 0434 September, [facility] [address] [place] [id number] [place] [address] 50643- 4850 September, [facility] [address] [place] [id number] [place] [address] 92984- 3422 Aug, [facility] [address] [place] [id number] [place] [address] 10933- 6666 Jul, [facility] [address] [place] [id number] [place] [address] 33217- 2182 Jul, Pelvic pain R10.2 ; Jock itch B35.6 ; Essential hypertension I10 and Hydrocele, unspecified hydrocele type N43.3 [facility] [address], [place] [address]- 3273 Jun, [facility] [address], [place] [address]- 8699 Jun, [facility] [address], [place] [address]- 1867 Jun, Benign non-nodular prostatic hyperplasia with lower urinary tract symptoms N40.1 [facility] [address], [place] [address]- 5037 Jun, Benign non-nodular prostatic hyperplasia with lower urinary tract symptoms N40.1 [facility] [address] [place] [id number] [place] [address] 29637- 6118 Jun, [facility] [address] [place] [id number] [place] [address] 46706- 4340 May, [facility] [address] [place] [id number] [place] [address] 43775- 2729 Apr, [facility] [address] 38179- 0801 Apr, [facility] [address] [place] [id number] [place] [address] 29701- 4643 Apr, Other acute pulmonary embolism without acute cor pulmonale I26.99 ; Anxiety F41.9 ; 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 and watermaster 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 use Z79.899 [facility] [address] [place] [id number] [place] [address] 97388- 6433 Apr, [facility] [address] [place] [id number] [place] [address] 06908- 2350 Apr, [facility] [address] [place] [id number] [place] [address] 78450- 2160 Mar, [facility] [address] [place] [id number] [place] [address] 01115- 1220 Mar, [facility] [address] [place] [id number] [place] [address] 77746- 2580 Feb, Cough R05 [facility] [address] [place] [id number] [place] [address] 53750- 5884 Feb, [facility] [address] [place] [id number] [place] [address] 08803- 8151 Feb, Encounter for immunization Z23 [facility] [address] [id number] [place] [address] 87956- 0103 Feb, Other and unspecified hyperlipidemia 272.4 [facility] [address] [place] [id number] [place] [address] 66764- 5133 Jan, [facility] [address] 5708 Jan, TIA (transient ischemic attack) 435.9 [facility] [address], [place] [address]- 4229 Dec, [facility] [address] [address]- 1524 Dec, [facility] [address] [id number] [place] [address] 46089- 5697 Dec, [facility] [address] [id number] [place] [address] 529534- 3141 Nov, [facility] [address] [place] [id number] [place] [address] 672853- 0079 Oct, Chronic cough 786.2 [facility] [address] [place] [id number] [place] [address] 52537- 5261 Oct, [facility] [address] [id number] [place] [address] 43734- 2749 Oct, [facility] [address] [place] [id number] [place] [address] 60056- 6116 Oct, [facility] [address], [place] [address]- 4326 Oct, [facility] [id number] [place] [address] 98076- 2909 Oct, Chronic cough 786.2 [facility] [address], [place] [address]- 2659 Oct, Cough 786.2 ; Hypertension 401.9 ; BPH (benign prostatic hyperplasia) 600.00 ; Other and unspecified hyperlipidemia 272.4 and Hydrocele 603.9 [facility] [address], [place] [address]- 3206 Oct, [facility] [id number] [place] [address] 59283- 6683 September, [facility] [place] [facility] [address] [id number] [place] [address]- 5521 Aug, [facility] [place] [facility] [address] [id number] [place] [address]- 0484 Aug, [facility] [place] [facility] [address] [facility] [id number] [place] [address]- 2096 Jul, [facility] [place] [facility] [address] [id number] [place] [address]- 6067 Jul, [facility] [place] [facility] [address] [id number] [place] [address]- 2187 Jul, [facility] [place] [facility] [address] [facility] [id number] [place] [address]- 7565 Jul, [facility] [place] [facility] [address] [facility] [id number] [place] [address]- 0331 Jul, [facility] [place] [facility] [address] [facility] [id number] [place] [address]- 4806 Jun, [facility] [place] [facility] [address] [facility] [id number] [place] [address]- 8245 Jun, [facility] [place] [facility] [address] [facility] [id number] [place] [address]- 0431 Jun, [facility] [place] [facility] [address] [facility] [id number] [place] [address]- 6550 Jun, 2014 [facility] [place] [facility] [address] [facility] [id number] [place] [address]- 6082 Jun, 2014 [facility] [place] [facility] [address] [facility] [id number] [place] [address]- 1212 Jun, 2014 [facility] [place] [facility] [address] [facility] [id number] [place] [address]- 6481 Jun, 2014 [facility] [place] [facility] [address] [facility] [id number] [place] [address] Jun, 2014 [facility] [place] [facility] [address] [id number] [place] [address] May, [facility] [place] [facility] [address] [id number] [place] [address] May, [facility] [place] [facility] [address] [id number] [place] [address] May, [facility] [place] [facility] [address] [id number] [place] [address] May, [facility] [place] [facility] [address] [id number] [place] [address] May, [facility] [place] [facility] [address] [id number] [place] [address] May, [facility] [place] [facility] [address] [id number] [place] [address] May, [facility] [place] [facility] [address] [id number] [place] [address] May, [facility] [place] [facility] [address] [id number] [place] [address] May, [facility] [place] [facility] [address] [id number] [place] [address] May, [facility] [place] [facility] [address] [id number] [place] [address] Apr, [facility] [place] [facility] [address] [id number] [place] [address] Apr, [facility] [place] [facility] [address] [id number] [place] [address] Apr, [facility] [place] [facility] [address] [id number] [place] [address] Apr, [facility] [place] [facility] [address] [id number] [place] [address] Apr, [facility] [place] [facility] [address] [id number] [place] [address] Apr, [facility] [place] [facility] [address] [id number] [place] [address] Apr, [facility] [place] [facility] [address] [id number] [place] [address] Apr, [facility] [place] [facility] [address] [id number] [place] [address] Mar, [facility] [place] [facility] [address] [id number] [place] [address] Mar, [facility] [place] [facility] [address] [id number] [place] [address] Mar, [facility] [place] [facility] [address] [id number] [place] [address] Mar, [facility] [place] [facility] [address] [id number] [place] [address] Mar, [facility] [place] [facility] [address] [id number] [place] [address] Mar, [facility] [place] [facility] [address] [id number] [place] [address] Mar, [facility] [place] [facility] [address] [id number] [place] [address] Mar, [facility] [place] [facility] [address] [id number], [place] [address] Mar, [facility] [place] [facility] [address] [id number], [place] [address] Mar, [facility] [place] [facility] [address] [id number] [place] [address] Feb, [facility] [place] [facility] [address] [id number], [place] [address] Feb, [facility] [place] [facility] [address] [id number] [place] [address] Feb, [facility] [place] [facility] [address] [id number] [place] [address] 29 Feb, 2013 [facility] [place] [facility] [address] [id number] [place] [address] 39[address] 14 Feb, 2013 [facility] [place] [facility] [address] [id number] [place] [address] 14 Feb, 2013 [facility] [place] [facility] [address] [id number] [place] [address] 6580 30 Jan, 2013 [facility] [place] [facility] [address] [id number] [place] [address] 2540 30 Jan, 2013 [facility] [place] [facility] [address] [id number] [place] [address]- [address] 24 Jan, 2013 [facility] [place] [facility] [address] [id number] [place] [address]- 0404 24 Jan, 2013 [facility] [place] [facility] [address] [id number] [place] [address] 4212 19 Jan, 2013 [facility] [place] [facility] [address] [id number] [place] [address] 2549 19 Jan, 2013 [facility] [place] [facility] [address] [id number] [place] [address] 1255 16 Jan, 2013 [facility] [place] [facility] [address] [id number] [place] [address]- 2543 16 Jan, 2013 [facility] [place] [facility] [address] [id number] [place] [address] 2542 16 Jan, 2013 [facility] [place] [facility] [address] [id number] [place] [address]- 2543 16 Jan, 2013 [facility] [place] [facility] [address] [id number] [place] [address] 2541 12 Jan, 2013 [facility] [place] [facility] [address] [id number] [place] [address]- 2544 12 Jan, 2013 [facility] [place] [facility] [address] [id number] [place] [address]- 7973 25 Dec, 2013 [facility] [place] [facility] [address] [id number] [place] [address] 9075 Dec, [facility] [place] [facility] [address] [id number] [place] [address] 9562 Dec, [facility] [place] [facility] [address] [id number] [place] [address]- 7724 Dec, [facility] [place] [facility] [address] [id number] [place] [address]- 4573 Dec, [facility] [place] [facility] [address] [id number] [place] [address] Dec, [facility] [place] [facility] [address] [id number] [place] [address] 0307 Nov, [facility] [place] [facility] [address] [id number] [place] [address] 5099 Nov, [facility] [place] [facility] [address] [id number] [place] [address]- 3412 Nov, [facility] [place] [facility] [address] [id number] [place] [address] 51[address] Nov, [facility] [place] [facility] [address] [id number] [place] [address]- 5034 Nov, [facility] [place] [facility] [address] [id number] [place] [address]- 1533 Nov, [facility] [place] [facility] [address] [id number] [place] [address]- 1632 Nov, [facility] [place] [facility] [address] [id number] [place] [address]- 5563 Nov, [facility] [place] [facility] [address] [id number] [place] [address] 4260 Oct, [facility] [place] [facility] [address] [id number] [place] [address]- 9586 Oct, [facility] [place] [facility] [address] [id number] [place] [address]- 9674 Oct, [facility] [place] [facility] [address] [id number] [place] [address]- 8756 Oct, [facility] [place] [facility] [address] [id number] [place] [address] September, [facility] [place] [facility] [address] [id number] [place] [address]- 0139 September, [facility] [place] [facility] [address] [id number] [place] [address]- 4019 September, [facility] [place] [facility] [address] [id number] [place] [address]- 6516 September, [facility] [place] [facility] [address] [id number] [place] [address]- 4086 September, [facility] [place] [facility] [address] [id number] [place] [address]- 4917 September, [facility] [place] [facility] [address] [id number] [place] [address]- 2322 Aug, [facility] [place] [facility] [address] [id number] [place] [address]- 6140 Aug, [facility] [place] [facility] [address] [id number] [place] [address]- 2762 Aug, [facility] [place] [facility] [address] [id number] [place] [address]- 3641 Aug, [facility] [place] [facility] [address] [id number] [place] [address]- 0391 Aug, [facility] [place] [facility] [address] [id number] [place] [address]- 3244 Aug, [facility] [place] [facility] [address] [id number] [place] [address]- 1932 Aug, [facility] [place] [facility] [address] [id number] [place] [address]- 8646 Aug, [facility] [place] [facility] [address] [id number] [place] [address]- 7300 Jul, [facility] [place] [facility] [address] [id number] [place] [address]- 5556 Jul, [facility] [place] [facility] [address] [id number] [place] [address]- 7946 Jun, [facility] [place] [facility] [address] [id number] [place] [address]- 0616 Jun, [facility] [place] [facility] [address] [id number] [place] [address]- 9137 Jun, [facility] [place] [facility] [address] [id number] [place] [address]- 4681 Jun, [facility] [place] [facility] [address] [id number] [place] [address]- 9161 Jun, [facility] [place] [facility] [address] [id number] [place] [address]- 0916 May, [facility] [place] [facility] [address] [id number] [place] [address]- 7433 May, [facility] [place] [facility] [address] [id number] [place] [address]- 5576 May, [facility] [place] [facility] [address] [id number] [place] [address] 3064 May, [facility] [place] [facility] [address] [id number] [place] [address]- 5971 Apr, [facility] [place] [facility] [address] [id number] [place] [address]- 3077 Apr, [facility] [place] [facility] [address] [id number] [place] [address]- 3176 Mar, [facility] [place] [facility] [address] [id number] [place] [address]- 7086 Mar, [facility] [place] [facility] [address] [id number] [place] [address]- 4929 Feb, [facility] [place] [facility] [address] [id number] [place] [address]- 8454 Feb, [facility] [place] [facility] [address] [id number] [place] [address]- 2432 Feb, [facility] [place] [facility] [address] [id number] [place] [address]- 2595 Feb, [facility] [place] [facility] [address] [id number] [place] [address]- 1592 Feb, [facility] [place] [facility] [address] [id number] [place] [address]- 0641 Feb, [facility] [place] [facility] [address] [id number] [place] [address]- 1106 Feb, [facility] [place] [facility] [address] [id number] [place] [address]- 0211 Jan, [facility] [place] [facility] [address] [id number] [place] [address]- 2174 Jan, [facility] [place] [facility] [address] [id number] [place] [address]- 1831 Dec, [facility] [place] [facility] [address] [id number] [place] [address]- 9638 Dec, [facility] [place] [facility] [address] [id number], [place] [address]- 4887 15 Dec, 2012 [facility] [place] [facility] [address] [id number], [place] [address] 0124 Dec, [facility] [place] [facility] [address] [id number] [place] [address]- 4599 Dec, [facility] [place] [facility] [address] [id number] [place] [address]- 1685 Nov, [facility] [place] [facility] [address] [id number] [place] [address]- 0937 Nov, [facility] [place] [facility] [address] [id number] [place] [address]- 6289 Nov, [facility] [address] [id number] [place] [address]- 2365 Oct, [facility] [address] [id number] [place] [address]- 4333 Oct, [facility] [address] [id number] [place] [address]- 3314 Oct, [facility] [address] [id number] [place] [address]- 8144 September, [facility] [address] [id number] [place] [address]- 7648 Aug, [facility] [address] [id number] [place] [address]- 3445 Aug, [facility] [address] [id number] [place] [address]- 7222 Aug, [facility] [address] [id number] [place] [address]- 7310 Jul, [facility] [address] [id number] [place] [address]- 1655 Jul, [facility] [address] [facility] [id number] [place] [address]- 5215 Jul, [facility] [address] [id number] [place] [address]- 5970 Jul, [facility] [place] [facility] [address] [id number] [place] [address]- 2542 Jul, [facility] [place] [facility] [address] [id number] [place] [address]- 2053 Jun, [facility] [place] [facility] [address] [id number] [place] [address]- 2546 Jun, [facility] [place] [facility] [address] [id number] [place] [address]- 5215 May, [facility] [place] [facility] [address] [id number] [place] [address]- 2546 May, [facility] [place] [facility] [address] [id number] [place] [address] 2546 Apr, [facility] [place] [facility] [address] [id number] [place] [address]- 2546 Apr, [facility] [place] [facility] [address] [id number] [place] [address]- 2546 Mar, [facility] [place] [facility] [address] [id number] [place] [address]- 2546 Mar, [facility] [place] [facility] [address] [id number] [place] [address]- 2546 Mar, [facility] [address] [id number] [place] [address]- [address]46 Mar, [facility] [address] [id number] [id number] Feb, [facility] [place] [facility] [address] [id number] [place] [address]- 3846 Feb, [facility] [place] [facility] [address] [facility] [id number] [place] [address]- 3006 Feb, [facility] [place] [facility] [address] [id number], [place] [address]- 2546 Feb, [facility] [place] [facility] [address] [id number], [place] [address]- 2546 Feb, [facility] [place] [facility] [address] [id number], [place] [address]- 2546 Feb, [facility] [place] [facility] [address] [id number] [place] [address]- 2546 Feb, [facility] [place] [facility] [address] [id number], [place] [address]- 2546 Jan, [facility] [place] [facility] [address] [id number], [place] [address]- 8317 Jan, [facility] [address] [id number] [place] [address]- 8666 Dec, [facility] [place] [facility] [address] [id number] [place] [address]- 2546 Dec, [facility] [address] [id number] [place] [address]- 4700 Nov, [facility] [address] [id number] [place] [address]- 1897 Oct, [facility] [address] [id number] [place] [address]- 9766 September, [facility] [address] [id number] [place] [address]- 9506 September, [facility] [address] [id number] [place] [address]- 2696 September, [facility] [address] [id number], [place] [address]- 1909 Aug, [facility] [address] [id number] [place] [address]- 1960 May, [facility] [address] [id number] [place] [address]- 2820 May, [facility] [address] [id number], [place] [address]- 4737 Apr, [facility] [place] [facility] [address] [id number], [place] [address]- 1038 Apr, [facility] [place] [facility] [address] [id number] [place] [address]- 4022 Apr, [facility] [place] [facility] [address] [id number], [place] [address]- 6916 Apr, [facility] [place] [facility] [address] [id number] [place] [address]- 2546 Apr, [facility] [place] [facility] [address] [id number], [place] [address] 2546 Mar, [facility] [address] [id number], [place] [address]- 4901 Feb, [facility] [id number], [place] [address]- 3946 Feb, [facility] [id number], [place] [address]- 2616 September, [facility] [address] [id number], [place] [address]- 0606 Mar, [facility] [id number], [place] [address]- 1577 Feb, [facility] [id number], [place] [address]- 6966 Feb, [facility] [address] [id number], [place] [address] 8407 Feb, IMMUNIZATIONS Vaccine Route Administration Date Status TDAP (BOOSTRIX) IM Intramuscular Jun 27, 2017 Administered SOCIAL HISTORY Never Assessed REASON FOR VISIT Medicare AWV - [facility] Activity Details Follow Up 1 Year Reason: VITAL SIGNS Height 65 in 2017-06-27 Weight 194.0 lbs 2017-06-27 Temperature 97.5 degrees Fahrenheit 2017-06-27 Heart Rate 89 bpm 2017-06-27 Respiratory Rate 16 2017-06-27 BMI 32.28 kg/m2 2017-06-27 Blood pressure systolic 110 mmHg 2017-06-27 Blood pressure diastolic 74 mmHg 2017-06-27 MEDICATIONS Medication Instructions Dosage Frequency Start Date End Date Duration Status Eliquis 5 mg Orally 2 times a day 1 tablet 12h Active Cymbalta 30 MG Orally Once a day 1 capsule 24h Active Aricept 5 mg Orally Once a day 1 tablet at bedtime 24h 30 days Active Vitamin D 1000 UNIT Orally Once a day 1 tablet 24h 07 Jun, 2017 Jul, 30 day(s) Active Abilify 5 mg Orally Once a day 1 tablet 24h 30 day(s) Active Fish Oil 1 tablet 12h Active Stool Softener 100 MG Orally Once a day 1 capsule as needed 24h Active Flomax 0.4 MG Orally Once a day 1 capsule 30 minutes after the same meal each day 24h 30 Active Trazodone HCl 100 mg Orally Once a day 1 tablet at bedtime 24h Active Namenda 10 mg Orally Twice a day 1 tablet 12h 30 days Active Amlodipine Besylate 10 MG TAKE ONE TABLET BY MOUTH ONCE DAILY 30 Active Proscar 5 MG TAKE 1 TABLET BY MOUTH ONCE DAILY. 30 Active Aspirin 81 MG Orally Once a day 1 tablet 24h Active Oxybutynin Chloride 5 MG TAKE ONE TABLET BY MOUTH TWICE DAILY 30 Active Pravastatin Sodium 40 MG Orally Once a day 1 tablet 24h Active RESULTS No Results PROCEDURES Procedure Date Ordered Result Body Site ANNUAL RICKYNES VST; PERSNL PPS INIT Jun 27, 2017 FALL RISK ASSESSMENT DOCD Jun 27, 2017 TDAP (BOOSTRIX) Jun 27, 2017 PT TOBACCO SCREEN RCVD TLK Jun 27, 2017 SINGLE IMMUNIZATION ADMIN Jun 27, 2017 INSTRUCTIONS MEDICATIONS ADMINISTERED No Known Medications [...] foot fracture Hospitalization History [facility] 03/24/2017
--- OUTSIDE RECORDS SUMMARY | 2018-04-10 18:16 | XMS REPORT ---
Author Author GELY SHAY Organization [facility] Address [address] [place] [address] Care Team Providers Care Metallurgical Inspector Name Role Phone GELYGLORIASHAY Unavailable PROBLEMS Type Condition ICD9-CM Code JQZ15-DM Code Onset Dates Condition Status SNOMED Code Problem Color blindness H53.50 Active 933996590 Problem Presbyopia of both eyes H52.4 Active 85961238 Problem Nuclear senile cataract of both eyes H25.13 Active 240362409 Problem Astigmatism of both eyes, unspecified type H52.203 Active 79889020 Problem Overactive bladder N32.81 Active 292620871 Problem Essential hypertension I10 Active 13913864 Problem Other chronic pain G89.29 Active 26745666 Problem Hypermetropia of both eyes H52.03 Active 83053696 Problem Alzheimer's disease, unspecified G30.9 Active 254133435 Problem Mild episode of recurrent major depressive disorder F33.0 Active 334891775 Problem 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 Active 219844322 Problem Major depressive disorder, single episode, mild F32.0 Active 80706949 Problem Chronic fatigue R53.82 Active 53256123 Problem Hydrocele, unspecified hydrocele type N43.3 Active 91109877 Problem Other acute pulmonary embolism without acute cor pulmonale I26.99 Active 694557463 Problem 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 Active 072532105 Problem Asymptomatic microscopic hematuria R31.21 Active 090225681 Problem Gait instability R26.81 Active 68728903 Problem PVD (peripheral vascular disease) I73.9 Active 984195147 Problem At high risk for falls Z91.81 Active [id number] Problem 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 Active 46948188 Problem Benign non-nodular prostatic hyperplasia with lower urinary tract symptoms N40.1 Active 524326559 Problem Alzheimers disease with late onset G30.1 Active 873726604 Problem Renal cyst, left Q61.00 Active 31790938 Problem Mixed hyperlipidemia E78.2 Active 713853542 Problem Anxiety F41.9 Active 62496652 Problem Transient cerebral ischemia, unspecified transient cerebral ischemia type G45.9 Active 725805744 Problem Primary insomnia F51.01 Active 917596446 ALLERGIES No Information ENCOUNTERS Encounter Location Date Diagnosis [place] [id number] [place] [address] 35336- 7229 Dec, [place] [address] 69166- 0263 September, Alzheimers disease with late onset G30.1 and Mild episode of recurrent major depressive disorder F33.0 [place] [address] 06272- 0528 September, PVD (peripheral vascular disease) I73.9 ; Major depressive disorder, single episode, mild F32.0 ; Chronic fatigue R53.82 ; Weight gain R63.5 and Arthralgia, unspecified joint M25.50 [place] [id number] [place] [address] 20136- 3105 Aug, Acute low back pain, unspecified back pain laterality, with sciatica presence unspecified M54.5 [place] [id number] [place] [address] 71358- 4789 Aug, Acute low back pain, unspecified back pain laterality, with sciatica presence unspecified M54.5 [place] [id number] [place] [address] 47195- 8624 Aug, Pain R52 [place] [id number] [place] [address] 05031- 5695 Jul, [place] [address] 13296- 5598 Jun, [place] [id number] [place] [address] 82690- 6811 07 Jun, 2017 Medicare annual wellness visit, initial Z00.00 ; Mixed hyperlipidemia E78.2 ; Essential hypertension I10 ; Anxiety F41.9 ; Alzheimers disease with late onset G30.1 ; 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 ; Overactive bladder N32.81 ; Primary insomnia F51.01 ; At high risk for falls Z91.81 and Encounter for immunization Z23 [facility] [id number] [place] [address] 27341- 9531 May, [facility] [address] 51829- 5798 May, Essential hypertension I10 and Transient cerebral ischemia, unspecified transient cerebral ischemia type G45.9 [facility] [address] [id number] May, Dental examination Z01.20 and Dental caries K02.9 [place] [address] 34327- 3434 May, [place] [address] 07024- 1580 May, [place] [id number] [place] [address] 43715- 6478 May, Alzheimers disease with late onset G30.1 [place] [id number] [place] [address] 38038- 5156 Apr, [place] [id number] [place] [address] 78268- 1333 Apr, Alzheimers disease with late onset G30.1 and Mild episode of recurrent major depressive disorder F33.0 [place] [id number] [place] [address] 93970- 0194 Mar, Mild episode of recurrent major depressive disorder F33.0 [place] [id number] [place] [address] 81045- 1413 Mar, Mixed hyperlipidemia E78.2 ; Essential hypertension I10 ; Asymptomatic microscopic hematuria R31.21 and Renal cyst, left Q61.00 [place] [address] [place] [address]- 9497 Mar, [facility] [id number] [place] [address] 61748- 1857 Feb, Encounter for immunization Z23 [facility] [id number] [place] [address] 14477- 9972 Feb, [facility] [id number] [place] [address] 13668- 3450 Feb, [facility] [id number] [place] [address] 86430 -4442 Feb, ANUG (acute necrotizing ulcerative gingivitis) A69.1 [facility] [id number] [place] [address] 02227- 2776 Feb, [facility] [id number] [place] [address] 12863- 8077 Feb, Mild episode of recurrent major depressive disorder F33.0 [facility] [id number] [place] [address] 17481- 1220 Feb, Alzheimers disease with late onset G30.1 and Mild episode of recurrent major depressive disorder F33.0 [facility] [id number] [place] [address] 68980- 7144 Jan, Alzheimers disease with late onset G30.1 [facility] [address] [address]- 7807 Jan, Gait instability R26.81 [facility] [address] [id number] [place] [address] Jan [facility] [address] [id number] [place] [address] Dec [facility] [address] [address]- 3921 Dec, [facility] [id number] [place] [address] 66606- 9579 Dec, [place] [id number] [facility] [id number] 9006 Dec, Essential hypertension I10 ; Transient cerebral ischemia, unspecified transient cerebral ischemia type G45.9 and Anxiety F41.9 [facility] [address] [facility] [id number] [place] [address] 26516 2546 Dec, Gait instability R26.81 [facility] [address] [facility] [id number] [place] [address] 89453 2546 Dec, [facility] [address] [facility] [id number] [place] [address] 85557 2545 Nov, Alzheimers disease with late onset G30.1 and Mild episode of recurrent major depressive disorder F33.0 [facility] [id number] [place] [address] 29691- 4376 Nov, [facility] [id number] [place] [address] 92509- 5226 Nov, Gait instability R26.81 [facility] [address] [facility] [id number] [place] [address] 49898 2547 Nov, Anxiety F41.9 [facility] [address] [facility] [id number] [place] [address] 63178 2546 Nov, [facility] [id number] [place] [address] 00653 2546 Nov, [facility] [address] [facility] [id number] [place] [address] 41040 2546 Oct, Gait instability R26.81 [facility] [address] [facility] [id number] [place] [address] 33852 2546 Oct, Anxiety F41.9 [facility] [address] [facility] [id number] [place] [address] 08858 2543 Oct, Gait instability R26.81 [facility] [address] [facility] [id number] [address] 2546 Oct, Gait instability R26.81 [facility] [address] [address]- 1702 Oct, [facility] [id number] [place] [address] 63700- 4211 Oct, Anxiety F41.9 ; Chronic 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 use Z79.899 ; Encounter for immunization Z23 and Transient cerebral ischemia, unspecified transient cerebral ischemia type G45.9 [facility] [id number] [address]- 2739 September, [facility] [id number] [address]- 2009 September, Gait instability R26.81 [facility] [address] [address]- 7268 September, [facility] [id number] [address]- 8112 September, [facility] [id number] [address]- 2390 September, [facility] [address] [address]- 6397 September, Alzheimers disease with late onset G30.1 and Mild episode of recurrent major depressive disorder F33.0 [facility] [address] [address]- 3060 September, [facility] [address] [address]- 1446 September, [facility] [address] [address]- 5223 September, [facility] [address] [address]- 3204 September, Mild episode of recurrent major depressive disorder F33.0 [facility] [address] [address]- 0525 Aug, Mild episode of recurrent major depressive disorder F33.0 ; Alzheimers disease with late onset G30.1 ; Other acute pulmonary embolism without acute cor pulmonale I26.99 and Cough R05 [facility] [id number] [place] [address] 69353- 4709 Aug, [facility] [id number] [place] [address] 84313- 3233 Aug, Gait instability R26.81 [facility] [address] 62905- 2052 Aug, Alzheimers disease with late onset G30.1 and Mild episode of recurrent major depressive disorder F33.0 [facility] [address] 32174- 7940 Aug, [place] [id number] [place] [address] 03243- 5599 Aug, 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 [facility] [id number] [place] [address] 36502- 9409 Jul, Alzheimers disease with late onset G30.1 [facility] [id number] [place] [address] 07727- 4597 Jul, [place] [id number] [place] [address] 60713- 1026 Jul, 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 [facility] [id number] [place] [address] 03600- 9180 Jul, Anxiety F41.9 ; Alzheimers disease with late onset G30.1 and Transient cerebral ischemia, unspecified transient cerebral ischemia type G45.9 [facility] [id number] [place] [address] 58535- 7975 Jun, Essential hypertension I10 [facility] [id number] [place] [address] 25628- 1771 Jun, [facility] [address] [place] [address]- 1192 Jun, [facility] [id number] [place] [address] 95396- 6997 Jun, [facility] [id number] [place] [address] 83401- 6211 Jun, Essential hypertension I10 ; Benign non-nodular prostatic hyperplasia with lower urinary tract symptoms N40.1 ; Anxiety F41.9 ; Pain in right knee M25.561 ; Pain in left knee M25.562 and Other chronic pain G89.29 [facility] [id number] [place] [address] 97397- 8703 May, [facility] [id number] [place] [address] 32599- 5693 May, [facility] [id number] [place] [address] 02693- 3215 May, [facility] [id number] [place] [address] 50976- 4752 Apr, [facility] [id number] [place] [address] 15770- 3606 Mar, [facility] [id number] [place] [address] 29306- 5854 Mar, Mixed hyperlipidemia E78.2 and Essential hypertension I10 [facility] [id number] [place] [address] 79568- 2807 Feb, [facility] [id number] [place] [address] 75144- 8018 Feb, Ingrown nail L60.0 and Onychomycosis B35.1 [facility] [id number] [place] [address] 68063- 3087 Feb, Paronychia, left L03.012 [facility] [id number] [place] [address] 58685- 8046 Jan, [facility] [address] [address]- 5474 07 Jan, 2016 Cramps of right lower extremity R25.2 and Mixed hyperlipidemia E78.2 [facility] [id number] [place] [address] 56786- 8788 Jan, Cramps of right lower extremity R25.2 ; Essential hypertension I10 ; Mixed hyperlipidemia E78.2 ; Chronic 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 use Z79.899 and Claudication I73.9 [facility] [id number] [place] [address] 46346- 6250 Jan, Right leg pain M79.604 [facility] [id number] [place] [address] 64441- 7405 Dec, [facility] [id number] [place] [address] 16165- 3388 Nov, [facility] [id number] [place] [address] 40331- 6075 Nov, [facility] [id number] [place] [address] 99082- 5399 Nov, [facility] [id number] [place] [address] 77385- 7259 Nov, Dermatofibroma D23.9 [facility] [id number] [place] [address] 09572- 2551 Nov, [facility] [id number] [place] [address] 95337- 5487 Oct, [facility] [id number] [place] [address] 45177- 8097 Oct, [facility] [id number] [place] [address] 85454- 0296 September, Benign non-nodular prostatic hyperplasia with lower urinary tract symptoms N40.1 ; Essential hypertension I10 ; Overactive bladder N32.81 and Fatigue, unspecified type R53.83 [facility] [address] [address]- 3710 September, [facility] [id number] [place] [address] 47620- 5456 September, [facility] [address] [address]- 5446 Aug, [facility] [id number] [place] [address] 11863- 0372 Jul, [facility] [id number] [place] [address] 067045- 2491 Jul, Pelvic pain R10.2 ; Jock itch B35.6 ; Essential hypertension I10 and Hydrocele, unspecified hydrocele type N43.3 [facility] [address] [address]- 7504 Jun, [facility] [id number] [place] [address] 019483- 3312 Jun, [facility] [address] 5558 Jun, Benign non-nodular prostatic hyperplasia with lower urinary tract symptoms N40.1 [facility] [address] 2470 Jun, Benign non-nodular prostatic hyperplasia with lower urinary tract symptoms N40.1 [facility] [address] [address]- 6886 Jun, [facility] [address] [address]- 8235 May, [facility] [address] [address]- 4527 Apr, [facility] [address] 9906 Apr, [facility] [address]- 7093 Apr, Other acute pulmonary embolism without acute cor pulmonale I26.99 ; Anxiety F41.9 ; 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 and long term care pharmacist 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 use Z79.899 [facility] [id number] [place] [address] 54618- 3065 Apr, [facility] [id number] [place] [address] 36958- 1686 Apr, [facility] [address] 03666- 8681 Mar, [facility] [address] 81325- 9626 Mar, [facility] [address] 78395- 8738 Feb, Cough R05 [facility] [address] 76832- 1349 Feb, [facility] [id number] [place] [address] 63519- 1184 Feb, Encounter for immunization Z23 [facility] [address] 68555- 3291 Feb, Other and unspecified hyperlipidemia 272.4 [facility] [id number] [place] [address] 13646- 6945 Jan, [facility] [id number] [place] [address] 61218- 9350 Jan, TIA (transient ischemic attack) 435.9 [facility] [id number] [place] [address] 60568- 4053 Dec, [facility] [address] 98896- 9120 Dec, [facility] [id number] [place] [address] 82801- 5447 Dec, [facility] [address] [place] [address]- 6995 Nov, [facility] [address] [place] [address] 41657- 9408 Oct, Chronic cough 786.2 [facility] [address] [address]- 6805 Oct, [facility] [id number] [place] [address] 47069- 8261 Oct, [facility] [id number] [place] [address] 75867- 4509 Oct, [facility] [id number] [place] [address] 76303- 2448 Oct, [facility] [address] [place] [address] 05738- 4177 Oct, Chronic cough 786.2 [facility] [id number] [place] [address] 40512- 6373 Oct, Cough 786.2 ; Hypertension 401.9 ; BPH (benign prostatic hyperplasia) 600.00 ; Other and unspecified hyperlipidemia 272.4 and Hydrocele 603.9 [facility] [address] [address]- 8159 Oct, [facility] [address] [address]- 3149 September, [facility] [address] [address]- 6115 Aug, [facility] [address] [address]- 5762 Aug, [facility] [id number] [place] [address] 88578- 1605 Jul, [facility] [address] [address]- 9894 Jul, [facility] [id number] [place] [address] 41040- 9445 Jul, [facility] [place] [facility] [address] [id number] [place] [address]- 4397 Jul, [facility] [place] [facility] [address] [id number] [place] [address]- 6918 Jul, [facility] [place] [facility] [address] [id number] [place] [address]- 6720 Jun, 2014 [facility] [place] [facility] [address] [id number] [place] [address]- 3010 Jun, 2014 [facility] [place] [facility] [address] [id number] [place] [address]- 9670 Jun, 2014 [facility] [place] [facility] [address] [id number] [place] [address]- 0797 Jun, 2014 [facility] [place] [facility] [address] [id number] [place] [address]- 0374 Jun, 2014 [facility] [place] [facility] [address] [id number] [place] [address]- 0394 Jun, [facility] [place] [facility] [address] [id number] [place] [address]- 9248 Jun, [facility] [place] [facility] [address] [facility] [id number] [place] [address]- 1309 Jun, [facility] [place] [facility] [address] [id number] [place] [address]- 1853 May, [facility] [place] [facility] [address] [id number] [place] [address] May, [facility] [place] [facility] [address] [id number] [place] [address] May, [facility] [place] [facility] [address] [id number] [place] [address] May, [facility] [place] [facility] [address] [id number] [place] [address] May, [facility] [place] [facility] [address] [id number] [place] [address] May, [facility] [place] [facility] [address] [id number] [place] [address] May, [facility] [place] [facility] [address] [id number] [place] [address] May, [facility] [place] [facility] [address] [id number] [place] [address] May, [facility] [address] [id number] [place] [address] May, [facility] [place] [facility] [address] [id number] [place] [address] Apr, [facility] [address] [id number] [place] [address] Apr, [facility] [address] [id number] [place] [address] Apr, [facility] [place] [facility] [address] [id number] [place] [address] Apr, [facility] [place] [facility] [address] [id number] [place] [address] Apr, [facility] [place] [facility] [address] [id number] [place] [address] Apr, [facility] [place] [facility] [address] [id number] [place] [address] Apr, [facility] [place] [facility] [address] [id number] [place] [address] Apr, [facility] [place] [facility] [address] [id number] [place] [address] Mar, [facility] [place] [facility] [address] [id number] [place] [address] Mar, [facility] [place] [facility] [address] [id number] [address] Mar, [facility] [place] [facility] [address] [id number] [place] [address] Mar, [facility] [place] [facility] [address] [id number] [place] [address]842 Mar, [facility] [place] [facility] [address] [id number] [place] [address]647 Mar, [facility] [place] [facility] [address] [id number] [place] [address] Mar, [facility] [place] [facility] [address] [id number] [place] [address] 0985 Mar, [facility] [place] [facility] [address] [id number] [place] [address] 2002 Mar, [facility] [place] [facility] [address] [id number] [place] [address] 4841 Mar, [facility] [place] [facility] [address] [id number] [place] [address] Feb, [facility] [place] [facility] [address] [id number] [place] [address] 67[address] Feb, [facility] [place] [facility] [address] [id number] [place] [address] Feb, [facility] [place] [facility] [address] [id number] [place] [address] Feb, [facility] [place] [facility] [address] [id number] [place] [address] Feb, [facility] [place] [facility] [address] [id number] [place] [address] 2974 Feb, [facility] [place] [facility] [address] [id number] [place] [address] 4[address] 30 Jan, 2014 [facility] [place] [facility] [address] [id number] [place] [address]- 7824 30 Jan, 2014 [facility] [place] [facility] [address] [id number] [place] [address]- 6746 24 Sep, 2013 [facility] [place] [facility] [address] [id number] [place] [address]- 7166 24 Jan, 2013 [facility] [place] [facility] [address] [id number] [place] [address]- 2546 19 Jan, 2013 [facility] [place] [facility] [address] [id number] [place] [address] 2546 19 Jan, 2013 [facility] [place] [facility] [address] [id number] [place] [address]- 2545 16 Jan, 2013 [facility] [place] [facility] [address] [id number] [place] [address]- 8026 16 Jan, 2013 [facility] [place] [facility] [address] [id number] [place] [address]- 0393 16 Jan, 2013 [facility] [place] [facility] [address] [id number] [place] [address]- 6124 16 Jan, 2013 [facility] [place] [facility] [address] [id number] [place] [address]- 7819 12 Jan, 2013 [facility] [place] [facility] [address] [id number] [place] [address]- 9058 12 Jan, 2013 [facility] [place] [facility] [address] [id number] [place] [address]- 3786 Dec, [facility] [place] [facility] [address] [id number] [place] [address]- 2543 Dec, [facility] [place] [facility] [address] [id number] [place] [address]- 2541 Dec, [facility] [place] [facility] [address] [id number] [place] [address]- 8212 Dec, [facility] [place] [facility] [address] [id number] [place] [address]- 0489 Dec, [facility] [place] [facility] [address] [id number] [place] [address]- 5208 Dec, [facility] [place] [facility] [address] [id number] [place] [address]- 2589 Nov, [facility] [place] [facility] [address] [id number] [place] [address]- 9627 Nov, [facility] [place] [facility] [address] [id number] [place] [address]- 3123 Nov, [facility] [place] [facility] [address] [id number] [place] [address]- 4885 Nov, [facility] [place] [facility] [address] [id number] [place] [address]- 6710 Nov, [facility] [place] [facility] [address] [id number] [place] [address]- 1613 Nov, [facility] [place] [facility] [address] [id number] [place] [address]- 2312 Nov, [facility] [place] [facility] [address] [id number] [place] [address]- 1222 Nov, [facility] [place] [facility] [address] [id number] [place] [address]- 6915 Oct, [facility] [place] [facility] [address] [id number] [place] [address]- 1268 Oct, [facility] [place] [facility] [address] [id number] [place] [address]- 3785 Oct, [facility] [place] [facility] [address] [id number] [place] [address]- 2268 Oct, [facility] [place] [facility] [address] [id number] [place] [address]- 7548 September, [facility] [place] [facility] [address] [id number] [place] [address]- 5919 September, [facility] [place] [facility] [address] [id number] [place] [address] September, [facility] [place] [facility] [address] [id number] [place] [address]- 2430 September, [facility] [address] [id number] [place] [address]- 5199 September, [facility] [place] [facility] [address] [id number] [place] [address]- 5972 September, [facility] [place] [facility] [address] [id number] [place] [address]- 3462 Aug, [facility] [place] [facility] [address] [id number] [place] [address]- 4616 Aug, [facility] [place] [facility] [address] [id number] [place] [address]- 8421 Aug, [facility] [place] [facility] [address] [id number] [place] [address]- 9593 Aug, [facility] [place] [facility] [address] [id number] [place] [address]- 6219 Aug, [facility] [place] [facility] [address] [id number] [place] [address]- 5728 Aug, [facility] [place] [facility] [address] [id number] [place] [address]- 5323 Aug, [facility] [place] [facility] [address] [id number] [place] [address]- 9187 Aug, [facility] [place] [facility] [address] [id number] [place] [address]- 9915 Jul, [facility] [place] [facility] [address] [id number] [place] [address]- 9692 Jul, [facility] [place] [facility] [address] [id number] [place] [address]- 7377 Jun, [facility] [place] [facility] [address] [id number] [place] [address]- 4337 Jun, [facility] [place] [facility] [address] [id number] [place] [address]- 0425 Jun, [facility] [place] [facility] [address] [id number] [place] [address]- 1490 Jun, [facility] [place] [facility] [address] [id number] [place] [address]- 4847 Jun, [facility] [place] [facility] [address] [id number] [place] [address]- 4081 May, [facility] [place] [facility] [address] [id number] [place] [address]- 9126 May, [facility] [place] [facility] [address] [id number] [place] [address]- 4491 May, [facility] [place] [facility] [address] [id number] [place] [address]- 0880 May, [facility] [place] [facility] [address] [id number] [place] [address]- 7155 Apr, [facility] [place] [facility] [address] [id number] [place] [address]- 4408 Apr, [facility] [place] [facility] [address] [id number] [place] [address]- 2270 Mar, [facility] [place] [facility] [address] [id number] [place] [address]- 5195 Mar, [facility] [place] [facility] [address] [id number] [place] [address]- 4100 Feb, [facility] [place] [facility] [address] [id number] [place] [address]- 1140 Feb, [facility] [place] [facility] [address] [id number] [place] [address]- 0743 Feb, [facility] [place] [facility] [address] [id number] [place] [address]- 2630 Feb, [facility] [place] [facility] [address] [id number] [place] [address]- 9330 Feb, [facility] [place] [facility] [address] [id number] [place] [address]- 1973 Feb, [facility] [place] [facility] [address] [id number] [place] [address]- 7283 Feb, [facility] [place] [facility] [address] [id number] [place] [address]- 3642 Jan, [facility] [place] [facility] [address] [id number] [place] [address]- 7743 Jan, [facility] [place] [facility] [address] [id number] [place] [address]- 3004 Dec, [facility] [place] [facility] [address] [id number] [place] [address]- 8966 Dec, [facility] [place] [facility] [address] [id number] [place] [address]- 6618 Dec, [facility] [place] [facility] [address] [id number] [place] [address]- 8361 Dec, [facility] [place] [facility] [address] [id number] [place] [address]- 3569 Dec, [facility] [place] [facility] [address] [id number] [place] [address]- 9790 Nov, [facility] [place] [facility] [address] [id number] [place] [address]- 6619 Nov, [facility] [place] [facility] [address] [id number] [place] [address]- 6246 Nov, [facility] [place] [facility] [address] [id number] [place] [address]- 4133 Oct, [facility] [place] [facility] [address] [id number] [place] [address]- 9118 Oct, [facility] [place] [facility] [address] [id number] [place] [address]- 8328 Oct, [facility] [place] [facility] [address] [id number] [place] [address]- 7752 September, [facility] [place] [facility] [address] [id number] [place] [address] 2546 09 Aug, 2012 [facility] [address] [id number] [place] [address]- 4338 Aug, [facility] [place] [facility] [address] [id number] [place] [address]- 2546 Aug, [facility] [address] [id number] [place] [address]- 5396 Jul, [facility] [place] [facility] [address] [id number] [place] [address]- 5011 Jul, [facility] [address] [id number] [place] [address]- 8436 Jul, [facility] [address] [id number] [place] [address]- 9876 Jul, [facility] [address] [id number] [place] [address]- 5166 Jul, [facility] [address] [id number] [place] [address]- 4407 Jun, [facility] [address] [id number] [place] [address]- 5166 Jun, [facility] [address] [id number] [place] [address]- 3988 May, [facility] [address] [id number] [place] [address]- 8896 May, [facility] [address] [id number] [place] [address]- 5988 Apr, [facility] [place] [facility] [address] [id number] [place] [address]- 2126 Apr, [facility] [place] [facility] [address] [id number] [place] [address]- 4636 Mar, [facility] [address] [id number] [place] [address]- 1331 Mar, [facility] [place] [facility] [address] [id number] [place] [address]- 0885 Mar, [facility] [place] [facility] [address] [facility] [id number] [place] [address]- 0056 Mar, [facility] [address] [id number] [id number] Feb, [facility] [place] [facility] [address] [id number] [place] [address]- 0620 Feb, [facility] [place] [facility] [address] [id number] [place] [address]- 3431 Feb, [facility] [place] [facility] [address] [id number] [place] [address]- 8302 Feb, [facility] [place] [facility] [address] [facility] [id number] [place] [address]- 5575 Feb, [facility] [place] [facility] [address] [facility] [id number] [place] [address]- 5947 Feb, [facility] [place] [facility] [address] [facility] [id number] [place] [address]- 7766 Feb, [facility] [place] [facility] [address] [facility] [id number] [place] [address]- 0306 Jan, [facility] [place] [facility] [address] [facility] [id number] [place] [address]- 2456 Jan, [facility] [place] [facility] [address] [id number] [place] [address]- 7876 Dec, [facility] [place] [facility] [address] [facility] [id number] [place] [address]- 1066 Dec, [facility] [place] [facility] [address] [facility] [id number] [place] [address]- 4106 Nov, [facility] [place] [facility] [address] [facility] [id number] [place] [address]- 7316 Oct, [facility] [place] [facility] [address] [facility] [id number] [place] [address]- 7119 September, [facility] [address] [id number] [place] [address]- 8243 September, [facility] [place] [facility] [address] [id number] [place] [address]- 5606 September, [facility] [address] [facility] [id number] [place] [address]- 3690 Aug, [facility] [place] [facility] [address] [id number] [place] [address]- 4754 May, [facility] [address] [id number] [place] [address]- 4154 May, [facility] [place] [facility] [address] [id number] [place] [address]- 7270 Apr, [facility] [address] [facility] [id number] [place] [address]- 4679 Apr, [facility] [place] [facility] [address] [facility] [id number] [place] [address]- 0098 Apr, [facility] [address] [facility] [id number] [place] [address]- 0761 Apr, [facility] [place] [facility] [address] [facility] [id number] [place] [address]- 9398 Apr, [facility] [place] [facility] [address] [facility] [id number] [place] [address]- 8490 Mar, [facility] [place] [facility] [address] [id number] [place] [address]- 1546 Feb, [facility] [place] [facility] [address] [id number] [place] [address]- 4887 Feb, [facility] [place] [facility] [address] [facility] [id number] [place] [address]- 9123 September, [facility] [place] [facility] [address] [facility] [id number] [place] [address]- 7293 Mar, [facility] [place] [facility] [address] [facility] [id number] [place] [address]- 8476 14 Feb, 2010 [facility] [address] [facility] [id number] [place] [address]- 4894 11 Feb, 2010 [facility] [address] [facility] [id number] [place] [address]- 4494 11 Feb, 2010 IMMUNIZATIONS No Known Immunizations SOCIAL HISTORY Never Assessed REASON FOR VISIT PALS PLAN OF CARE VITAL SIGNS MEDICATIONS Medication Instructions Dosage Frequency Start Date End Date Duration Status Cymbalta 60 mg Orally Once a day 1 capsule 24h 90 days Active RESULTS No Results PROCEDURES No [...] foot fracture Hospitalization History [facility] [place]- Back Pain 03/24/2017
--- OUTSIDE RECORDS SUMMARY | 2018-04-10 18:17 | XMS REPORT ---
Author Author GELY SHAY [facility] Address [address] [place] [address] Care Team Providers Care [employer] Certified [employer] Professional Name Role Phone GELYGLORIASHAY Unavailable PROBLEMS Type Condition ICD9-CM Code JUE63-DH Code Onset Dates Condition Status SNOMED Code Problem Hypermetropia of both eyes H52.03 Active 91192792 Problem Transient cerebral ischemia, unspecified transient cerebral ischemia type G45.9 Active 944303287 Problem Color blindness H53.50 Active 681558591 Problem Essential hypertension I10 Active 99222684 Problem Presbyopia of both eyes H52.4 Active 97353720 Problem Anxiety F41.9 Active 05455864 Problem Other chronic pain G89.29 Active 81146287 Problem Overactive bladder N32.81 Active 807298615 Problem At high risk for falls Z91.81 Active [id number] Problem Asymptomatic microscopic hematuria R31.21 Active 653403300 Problem Mixed hyperlipidemia E78.2 Active 546897416 Problem Astigmatism of both eyes, unspecified type H52.203 Active 61204839 Problem Nuclear senile cataract of both eyes H25.13 Active 499559656 Problem 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 Active 719334524 Problem Alzheimer's disease, unspecified G30.9 Active 328807860 Problem Gait instability R26.81 Active 40178064 Problem Mild episode of recurrent major depressive disorder F33.0 Active 809932739 Problem Other acute pulmonary embolism without acute cor pulmonale I26.99 Active 136842333 Problem Hydrocele, unspecified hydrocele type N43.3 Active 60541122 Problem Primary insomnia F51.01 Active 955291882 Problem 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 Active 875604764 Problem 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 Active 04426015 Problem Benign non-nodular prostatic hyperplasia with lower urinary tract symptoms N40.1 Active 781772794 Problem Alzheimers disease with late onset G30.1 Active 089224967 Problem Renal cyst, left Q61.00 Active 70135472 ALLERGIES No Information ENCOUNTERS Encounter Location Date Diagnosis [facility] [id number] [place] [address] 32469- 0548 September, [facility] [id number] [place] [address] 82064- 0296 September, [facility] [address] 69969- 0869 Aug, [facility] [address] 58981- 2725 Jul, [facility] [address] 29639- 3771 13 Jun, 2017 [facility] [id number] [place] [address] 76284- 1705 07 Jun, 2017 Medicare annual wellness visit, initial Z00.00 ; Mixed hyperlipidemia E78.2 ; Essential hypertension I10 ; Anxiety F41.9 ; Alzheimers disease with late onset G30.1 ; 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 ; Overactive bladder N32.81 ; Primary insomnia F51.01 ; At high risk for falls Z91.81 and Encounter for immunization Z23 [facility] [id number] [place] [address] 58642- 9720 May, [facility] [id number] [place] [address] 16999- 5954 May, Essential hypertension I10 and Transient cerebral ischemia, unspecified transient cerebral ischemia type G45.9 [facility] [id number] [place] [address] [id number] May, Dental examination Z01.20 and Dental caries K02.9 [facility] [id number] [place] [address] 37931- 2727 May, [facility] [id number] [place] [address] 95033- 8458 May, [facility] [id number] [place] [address] 07261- 0823 May, Alzheimers disease with late onset G30.1 [facility] [address] 95325- 5340 Apr, [facility] [address] 71719- 2259 Apr, Alzheimers disease with late onset G30.1 and Mild episode of recurrent major depressive disorder F33.0 [facility] [address] 32025- 3112 Mar, Mild episode of recurrent major depressive disorder F33.0 [facility] [address] 90439- 0378 Mar, Mixed hyperlipidemia E78.2 ; Essential hypertension I10 ; Asymptomatic microscopic hematuria R31.21 and Renal cyst, left Q61.00 [facility] [address] 08949- 2078 Mar, [facility] [address] 50832- 0101 Feb, Encounter for immunization Z23 [facility] [address] 14219- 9017 Feb, [facility] [id number] [place] [address] 22425- 5970 Feb, [facility] [address] 02999 -0008 Feb, ANUG (acute necrotizing ulcerative gingivitis) A69.1 [facility] [address] 82734- 5497 Feb, [facility] [id number] [place] [address] 27669- 5538 Feb, Mild episode of recurrent major depressive disorder F33.0 [facility] [address] [place] [address]- 1768 Feb, Alzheimers disease with late onset G30.1 and Mild episode of recurrent major depressive disorder F33.0 [facility] [address] [address] 2450 Jan, Alzheimers disease with late onset G30.1 [facility] [address] [address] 8312 Jan, Gait instability R26.81 [facility] [place] [address] [id number] [place] [address] Jan [facility] [place] [address] [id number] [place] [address] Dec [facility] [address] [address]- 6279 Dec, [facility] [id number] [place] [address] 70308- 8077 Dec, [facility] [id number] [place] [address] 53946- 4347 Dec, Essential hypertension I10 ; Transient cerebral ischemia, unspecified transient cerebral ischemia type G45.9 and Anxiety F41.9 [facility] [address] [address] 9477 Dec, Gait instability R26.81 [facility] [address] [address] Dec, [facility] [address] [address] 1520 Nov, Alzheimers disease with late onset G30.1 and Mild episode of recurrent major depressive disorder F33.0 [facility] [address] [address]- 0302 Nov, [facility] [address] [address] 5150 Nov, Gait instability R26.81 [facility] [address] [address] 9876 14 Nov, 2016 Anxiety F41.9 [facility] [id number] [place] [address] 17412- 5628 Nov, [facility] [id number] [place] [address] 52692- 6559 Nov, [facility] [id number] [place] [address] 54706- 9009 Oct, Gait instability R26.81 [facility] [id number] [place] [address] 28958- 1533 Oct, Anxiety F41.9 [facility] [id number] [place] [address] 19008- 0998 Oct, Gait instability R26.81 [facility] [id number] [place] [address] 61348- 8765 Oct, Gait instability R26.81 [facility] [id number] [place] [address] 63751- 9374 Oct, [facility] [id number] [place] [address] 05846- 2418 Oct, Anxiety F41.9 ; Chronic 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 use Z79.899 ; Encounter for immunization Z23 and Transient cerebral ischemia, unspecified transient cerebral ischemia type G45.9 [facility] [address] [address]- 5981 September, [facility] [id number] [place] [address] 26980- 1495 September, Gait instability R26.81 [facility] [id number] [address]- 1193 September, [facility] [id number] [place] [address] 25421- 7459 September, [facility] [id number] [place] [address] 21078- 5331 September, [facility] [address] [address]- 5880 September, Alzheimers disease with late onset G30.1 and Mild episode of recurrent major depressive disorder F33.0 [facility] [id number] [place] [address] 49583- 1238 September, [facility] [id number] [place] [address] 30841- 8309 September, [facility] [id number] [place] [address] 82328- 7748 September, [facility] [id number] [place] [address] 02943- 3974 September, Mild episode of recurrent major depressive disorder F33.0 [facility] [id number] [place] [address] 71013- 0267 Aug, Mild episode of recurrent major depressive disorder F33.0 ; Alzheimers disease with late onset G30.1 ; Other acute pulmonary embolism without acute cor pulmonale I26.99 and Cough R05 [facility] [id number] [place] [address] 25990- 7964 Aug, [facility] [id number] [place] [address] 53485- 6443 Aug, Gait instability R26.81 [facility] [id number] [place] [address] 30196- 3117 Aug, Alzheimers disease with late onset G30.1 and Mild episode of recurrent major depressive disorder F33.0 [facility] [id number] [place] [address] 31701- 5510 Aug, [facility] [id number] [place] [address] 27057- 5110 Aug, 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 [facility] [id number] [place] [address] 60775- 4045 Jul, Alzheimers disease with late onset G30.1 [facility] [id number] [place] [address] 77686- 4827 Jul, [facility] [id number] [place] [address] 43137- 7169 Jul, 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 [facility] [address] 94277- 9063 Jul, Anxiety F41.9 ; Alzheimers disease with late onset G30.1 and Transient cerebral ischemia, unspecified transient cerebral ischemia type G45.9 [facility] [id number] [place] [address] 45137- 0039 Jun, Essential hypertension I10 [facility] [id number] [place] [address] 36604- 6750 Jun, [facility] [address] 94804- 2819 Jun, [facility] [id number] [place] [address] 28151- 4554 Jun, [facility] [id number] [place] [address] 76745- 7728 Jun, Essential hypertension I10 ; Benign non-nodular prostatic hyperplasia with lower urinary tract symptoms N40.1 ; Anxiety F41.9 ; Pain in right knee M25.561 ; Pain in left knee M25.562 and Other chronic pain G89.29 [facility] [id number] [place] [address] 72894- 6458 May, [facility] [address] 38065- 8924 May, [facility] [id number] [place] [address] 04722- 1084 May, [facility] [id number] [place] [address] 23782- 2500 Apr, [facility] [id number] [place] [address] 32569- 3240 Mar, [facility] [address] 41849- 7220 Mar, Mixed hyperlipidemia E78.2 and Essential hypertension I10 [facility] [address] 19715- 6633 Feb, [facility] [address] 37491- 4020 Feb, Ingrown nail L60.0 and Onychomycosis B35.1 [facility] [address] 55143- 8262 Feb, Paronychia, left L03.012 [facility] [address] 04394- 9394 Jan, [facility] [address] 18264- 8916 Jan, Cramps of right lower extremity R25.2 and Mixed hyperlipidemia E78.2 [facility] [address] 50419- 4076 Jan, Cramps of right lower extremity R25.2 ; Essential hypertension I10 ; Mixed hyperlipidemia E78.2 ; Chronic 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 use Z79.899 and Claudication I73.9 [facility] [id number] [place] [address] 57912- 7708 Jan, Right leg pain M79.604 [facility] [id number] [place] [address] 69727- 1780 Dec, [facility] [address] 83775- 8771 Nov, [facility] [id number] [place] [address] 87295- 6946 Nov, [facility] [address] [address]- 8308 Nov, [facility] [id number] [address]- 5931 Nov, Dermatofibroma D23.9 [facility] [address] [address]- 2258 Nov, [facility] [id number] [place] [address] 77642- 3915 Oct, [facility] [address] [address]- 1436 Oct, [facility] [id number] [place] [address] 91730- 7806 September, Benign non-nodular prostatic hyperplasia with lower urinary tract symptoms N40.1 ; Essential hypertension I10 ; Overactive bladder N32.81 and Fatigue, unspecified type R53.83 [facility] [address] [address]- 4341 September, [facility] [id number] [place] [address] 54177- 6815 September, [facility] [address] [address]- 8385 Aug, [facility] [address] [address]- 9559 Jul, [facility] [address] [address]- 0485 Jul, Pelvic pain R10.2 ; Jock itch B35.6 ; Essential hypertension I10 and Hydrocele, unspecified hydrocele type N43.3 [facility] [address] [address]- 7867 Jun, [facility] [address] [address]- 1550 Jun, [facility] [id number] [place] [address] 51755- 8475 Jun, Benign non-nodular prostatic hyperplasia with lower urinary tract symptoms N40.1 [facility] [id number] [place] [address] 81710- 4000 Jun, Benign non-nodular prostatic hyperplasia with lower urinary tract symptoms N40.1 [facility] [id number] [place] [address] 29604- 8084 Jun, [facility] [id number] [place] [address] 73089- 7411 May, [facility] [address] 85669- 3274 Apr, [facility] [id number] [place] [address] 69129- 2625 Apr, [facility] [id number] [place] [address] 02934- 9988 Apr, Other acute pulmonary embolism without acute cor pulmonale I26.99 ; Anxiety F41.9 ; 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 and 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 [facility] [id number] [place] [address] 15674- 0641 Apr, [facility] [id number] [place] [address] 51149- 9868 Apr, [facility] [id number] [place] [address] 32081- 1411 Mar, [facility] [id number] [place] [address] 22032- 3788 Mar, [facility] [id number] [place] [address] 27993- 1205 Feb, Cough R05 [facility] [id number] [place] [address] 62522- 8209 Feb, [facility] [id number] [place] [address] 36062- 3610 Feb, Encounter for immunization Z23 [facility] [id number] [place] [address] 86078- 9463 Feb, Other and unspecified hyperlipidemia 272.4 [facility] [id number] [place] [address] 81037- 7534 Jan, [facility] [id number] [place] [address] 79078- 9992 Jan, TIA (transient ischemic attack) 435.9 [facility] [id number] [place] [address] 10646- 5999 Dec, [facility] [id number] [place] [address] 04299- 4768 Dec, [facility] [id number] [place] [address] 51362- 3742 Dec, [facility] [id number] [place] [address] 72475- 4670 Nov, [facility] [id number] [place] [address] 34544- 4651 Oct, Chronic cough 786.2 [facility] [id number] [place] [address] 66960- 5910 Oct, [facility] [id number] [place] [address] 36635- 5719 Oct, [facility] [id number] [place] [address] 82774- 2746 Oct, [facility] [id number] [place] [address] 63062- 0360 Oct, [facility] [id number] [place] [address] 16445- 2845 Oct, Chronic cough 786.2 [facility] [address] [address]- 8032 Oct, Cough 786.2 ; Hypertension 401.9 ; BPH (benign prostatic hyperplasia) 600.00 ; Other and unspecified hyperlipidemia 272.4 and Hydrocele 603.9 [facility] [id number] [address]- 6602 Oct, [facility] [id number] 7199 September, [facility] [id number] [place] [address] 90588- 7459 Aug, [facility] [id number] [place] [address] 15497- 8453 Aug, [facility] [id number] [place] [address] 60996- 8775 Jul, [facility] [id number] [place] [address] 81597- 9670 Jul, [facility] [id number] [place] [address] 20875- 3485 Jul, [facility] [address] [address]- 4306 Jul, [facility] [address] [address]- 2865 Jul, [facility] [address] [address]- 3631 Jun, [facility] [id number] [address]- 2482 Jun, [facility] [id number] 9470 Jun, [facility] [id number] 0196 Jun, [facility] [id number] [address]- 3651 Jun, [facility] [id number] [place] [address] [place] [address]- 6132 Jun, [facility] [place] [facility] [address] [id number] [place] [address]- 6171 Jun, [facility] [place] [facility] [address] [id number] [place] [address]- 5331 Jun, [facility] [place] [facility] [address] [id number] [place] [address]- 6047 May, [facility] [place] [facility] [address] [id number] [place] [address]- 0456 May, [facility] [place] [facility] [address] [id number] [place] [address]- 5155 May, [facility] [place] [facility] [address] [id number] [place] [address]- 7222 May, [facility] [place] [facility] [address] [id number] [place] [address]- 2916 May, [facility] [place] [facility] [address] [id number] [place] [address]- 0733 May, [facility] [place] [facility] [address] [id number] [place] [address]- 5865 May, [facility] [place] [facility] [address] [id number] [place] [address]- 8860 May, [facility] [place] [facility] [address] [id number] [place] [address]- 3967 May, [facility] [place] [facility] [address] [id number] [place] [address]- 3224 May, [facility] [place] [facility] [address] [id number] [place] [address]- 7745 Apr, [facility] [place] [facility] [address] [id number] [place] [address] 0743 Apr, [facility] [place] [facility] [address] [id number] [place] [address]- 9991 Apr, [facility] [place] [facility] [address] [id number] [place] [address]- 4038 Apr, [facility] [place] [facility] [address] [id number] [place] [address] Apr, [facility] [place] [facility] [address] [id number] [place] Apr, [facility] [place] [facility] [address] [id number] [place] [address] Apr, [facility] [place] [facility] [address] [id number] [place] [address] Apr, [facility] [place] [facility] [address] [id number] [place] [address] Mar, [facility] [place] [facility] [address] [id number] [place] [address] Mar, [facility] [place] [facility] [address] [id number] [place] [address] Mar, [facility] [place] [facility] [address] [id number] [place] [address] Mar, [facility] [place] [facility] [address] [id number] [place] [address] Mar, [facility] [place] [facility] [address] [id number] [place] [address] Mar, [facility] [place] [facility] [address] [id number] [place] [address] Mar, [facility] [place] [facility] [address] [id number] [place] [address] Mar, [facility] [place] [facility] [address] [id number] [place] [address] Mar, [facility] [place] [facility] [address] [id number] [place] [address]69 Mar, [facility] [place] [facility] [address] [id number] [place] [address] 30 Feb, 2014 [facility] [place] [facility] [address] [id number] [place] [address] 30 Feb, 2013 [facility] [place] [facility] [address] [id number] [place] [address] 29 Feb, 2014 [facility] [place] [facility] [address] [id number] [place] [address] 29 Feb, 2014 [facility] [place] [facility] [address] [id number] [place] [address] 14 Feb, 2014 [facility] [place] [facility] [address] [id number] [place] [address] 14 Feb, 2014 [facility] [place] [facility] [address] [id number] [place] [address] 30 Jan, 2013 [facility] [place] [facility] [address] [id number] [place] [address] 30 Jan, 2013 [facility] [place] [facility] [address] [id number] [place] [address] 24 Sep, 2013 [facility] [place] [facility] [address] [id number] [place] [address] 24 Sep, 2013 [facility] [place] [facility] [address] [id number] [place] [address] 19 Sep, 2013 [facility] [place] [facility] [address] [id number] [place] [address] 19 Sep, 2013 [facility] [place] [facility] [address] [id number] [address] 16 Sep, 2013 [facility] [place] [facility] [address] [id number] [place] [address] 16 Sep, 2013 [facility] [place] [facility] [address] [id number] [place] [address]47 16 Sep, 2013 [facility] [place] [facility] [address] [id number] [place] [address] 16 Sep, 2013 [facility] [place] [facility] [address] [id number] [place] [address] Jan, [facility] [place] [facility] [address] [id number] [place] [address] Jan, [facility] [place] [facility] [address] [id number] [place] [address] Dec, [facility] [place] [facility] [address] [id number] [place] [address]180 Dec, [facility] [place] [facility] [address] [id number] [place] [address] 1748 Dec, [facility] [place] [facility] [address] [id number] [place] [address] 1524 Dec, [facility] [place] [facility] [address] [id number] [place] [address]- 2929 Dec, [facility] [place] [facility] [address] [id number] [place] [address] 7[address] Dec, [facility] [place] [facility] [address] [id number] [place] [address] 4[address] Nov, [facility] [place] [facility] [address] [id number] [place] [address] 2740 Nov, [facility] [place] [facility] [address] [id number] [place] [address] 2763 Nov, [facility] [place] [facility] [address] [id number] [place] [address]- 9277 Nov, [facility] [place] [facility] [address] [id number] [place] [address]- [address] Nov, [facility] [place] [facility] [address] [id number] [place] [address] 9600 Nov, [facility] [place] [facility] [address] [id number] [place] [address]- 4476 Nov, [facility] [place] [facility] [address] [id number] [place] [address]- 4325 Nov, [facility] [place] [facility] [address] [id number] [place] [address] 4919 Oct, [facility] [place] [facility] [address] [id number] [place] [address]- 9275 Oct, [facility] [place] [facility] [address] [id number] [place] [address]- 7710 Oct, [facility] [place] [facility] [address] [id number] [place] [address]- 1136 Oct, [facility] [place] [facility] [address] [id number] [place] [address]- 7907 September, [facility] [place] [facility] [address] [id number] [place] [address]- 7994 September, [facility] [place] [facility] [address] [id number] [place] [address] 9202 September, [facility] [place] [facility] [address] [id number] [place] [address]- 4372 September, [facility] [place] [facility] [address] [id number] [place] [address]- 9989 September, [facility] [place] [facility] [address] [id number] [place] [address]- 9412 September, [facility] [place] [facility] [address] [id number] [place] [address]- 9175 Aug, [facility] [place] [facility] [address] [id number] [place] [address]115 Aug, [facility] [place] [facility] [address] [id number] [place] [address]- 1136 Aug, [facility] [place] [facility] [address] [id number] [place] [address]- 0176 Aug, [facility] [place] [facility] [address] [id number] [place] [address] 0405 Aug, [facility] [place] [facility] [address] [id number] [place] [address] Aug, [facility] [place] [facility] [address] [id number] [place] [address] 1307 Aug, [facility] [place] [facility] [address] [id number] [place] [address]- 9986 Aug, [facility] [place] [facility] [address] [id number] [place] [address] 5131 Jul, [facility] [place] [facility] [address] [id number] [place] [address]306 Jul, [facility] [place] [facility] [address] [id number] [place] [address] 1041 Jun, [facility] [place] [facility] [address] [id number] [place] [address]- 5566 Jun, [facility] [place] [facility] [address] [id number] [place] [address]- 8730 Jun, [facility] [place] [facility] [address] [id number] [place] [address]- 8778 Jun, [facility] [place] [facility] [address] [id number] [place] [address] 9599 Jun, [facility] [place] [facility] [address] [facility] [id number] [place] [address]- 9803 May, [facility] [place] [facility] [address] [id number] [place] [address]- 1343 May, [facility] [place] [facility] [address] [id number] [place] [address]- 2112 May, [facility] [place] [facility] [address] [id number] [place] [address]- 0598 May, [facility] [place] [facility] [address] [id number] [place] [address]- 1446 Apr, [facility] [place] [facility] [address] [id number] [place] [address]- 9122 Apr, [facility] [place] [facility] [address] [id number] [place] [address]- 3590 Mar, [facility] [place] [facility] [address] [id number] [place] [address]- 4126 Mar, [facility] [place] [facility] [address] [id number] [place] [address]- 7261 Feb, [facility] [place] [facility] [address] [id number] [place] [address]- 6363 Feb, [facility] [place] [facility] [address] [id number] [place] [address]- 7706 Feb, [facility] [place] [facility] [address] [id number] [place] [address] 8402 Feb, [facility] [place] [facility] [address] [id number] [place] [address]- 4710 Feb, [facility] [place] [facility] [address] [id number] [place] [address]- 4793 Feb, [facility] [place] [facility] [address] [id number] [place] [address]- 0129 Feb, [facility] [place] [facility] [address] [id number] [place] [address]- 8346 Jan, [facility] [place] [facility] [address] [id number] [place] [address]- 1001 Jan, [facility] [place] [facility] [address] [id number] [place] [address]- 5[address] Dec, [facility] [place] [facility] [address] [id number] [place] [address]- 0962 Dec, [facility] [place] [facility] [address] [id number] [place] [address]- 6062 15 Dec, 2012 [facility] [place] [facility] [address] [id number] [place] [address]- 5282 14 Dec, 2012 [facility] [place] [facility] [address] [id number] [place] [address]- 9454 Dec, [facility] [address] [id number] [place] [address]- 8489 Nov, [facility] [place] [facility] [address] [id number] [place] [address]- 0434 Nov, [facility] [place] [facility] [address] [id number] [place] [address]- 0830 Nov, [facility] [place] [facility] [address] [id number] [place] [address]- 3466 Oct, [facility] [place] [facility] [address] [id number] [place] [address]- 9195 Oct, [facility] [place] [facility] [address] [id number] [place] [address]- 8010 Oct, [facility] [address] [id number] [place] [address]- 8040 September, [facility] [place] [facility] [address] [id number] [place] [address]- 3283 Aug, [facility] [place] [facility] [address] [id number] [place] [address]- 2541 Aug, [facility] [place] [facility] [address] [id number] [place] [address]- 0113 Aug, [facility] [place] [facility] [address] [id number] [place] [address]- 0770 Jul, [facility] [place] [facility] [address] [id number] [place] [address]- 1775 Jul, [facility] [place] [facility] [address] [id number] [place] [address]- 9027 Jul, [facility] [place] [facility] [address] [id number] [place] [address]- 1991 Jul, [facility] [place] [facility] [address] [id number] [place] [address] 2545 Jul, [facility] [place] [facility] [address] [id number] [place] [address]- 6090 Jun, [facility] [address] [id number] [place] [address]- 6631 Jun, [facility] [place] [facility] [address] [id number] [place] [address]- 2546 May, [facility] [address] [id number] [place] [address]- 4140 May, [facility] [address] [id number] [place] [address]- 4641 Apr, [facility] [address] [id number] [place] [address]- 6231 Apr, [facility] [address] [id number] [place] [address]- 5025 Mar, [facility] [address] [id number] [place] [address]- 4912 Mar, [facility] [address] [id number] [place] [address]- 2463 Mar, [facility] [address] [facility] [id number] [place] [address]- 8773 Mar, [facility] [address] [id number] [address] Feb, [facility] [address] [id number] [place] [address]- 4064 Feb, [facility] [address] [id number] [place] [address]- 0768 Feb, [facility] [place] [facility] [address] [id number] [place] [address]- 0057 Feb, [facility] [place] [facility] [address] [id number] [place] [address]- 1466 Feb, [facility] [address] [id number] [place] [address]- 5507 Feb, [facility] [place] [facility] [address] [id number] [place] [address]- 3224 Feb, [facility] [place] [facility] [address] [id number] [place] [address] 2546 Jan, [facility] [place] [facility] [address] [id number] [place] [address]- 2546 Jan, [facility] [place] [facility] [address] [id number] [place] [address]- 2546 Dec, [facility] [place] [facility] [address] [id number] [place] [address] 2547 Dec, [facility] [place] [facility] [address] [id number] [place] [address]- 4574 Nov, [facility] [place] [facility] [address] [id number] [place] [address]- 1680 Oct, [facility] [place] [facility] [address] [id number] [place] [address]- 7766 September, [facility] [place] [facility] [address] [id number] [place] [address]- 6033 September, [facility] [place] [facility] [address] [id number] [place] [address]- 3336 September, [facility] [place] [facility] [address] [id number] [place] [address]- 9146 Aug, [facility] [place] [facility] [address] [id number] [place] [address]- 2546 May, [facility] [place] [facility] [address] [id number] [place] [address]- 1227 May, [facility] [place] [facility] [address] [id number] [place] [address]- 2546 Apr, [facility] [place] [facility] [address] [id number] [place] [address]- 2546 Apr, [facility] [place] [facility] [address] [id number] [place] [address]- 0112 Apr, [facility] [id number] [address]- 2636 Apr, [facility] [address] [facility] [id number] [place] [address]- 8164 Apr, [facility] [id number] [address]- 0262 Mar, [facility] [id number] [address]- 2674 Feb, [facility] [id number] [address]- 1204 Feb, [facility] [id number] [address] September, [facility] [id number] [place] [address]26- 5633 Mar, [facility] [id number] [address]- 9432 Feb, [facility] [id number] [address]- 0383 Feb, [facility] [id number] [address]- 9979 Feb, IMMUNIZATIONS No Known Immunizations SOCIAL HISTORY Never Assessed REASON FOR VISIT Referral Request PLAN OF CARE VITAL SIGNS MEDICATIONS Unknown [...] foot fracture Hospitalization History [facility]- Back Pain 03/24/2017
--- OUTSIDE RECORDS SUMMARY | 2018-04-10 18:18 | XMS REPORT ---
Author Author GELY SHAY Organization [facility] Address [address] [place] [address] Care Team Providers Care Leadership Program Associate Name Role Phone GELY SHAY Unavailable PROBLEMS Type Condition ICD9-CM Code [id number] Code Onset Dates Condition Status SNOMED Code Problem Color blindness H53.50 Active 370738233 Problem Presbyopia of both eyes H52.4 Active 88362643 Problem Nuclear senile cataract of both eyes H25.13 Active 728570527 Problem Astigmatism of both eyes, unspecified type H52.203 Active 75495885 Problem Overactive bladder N32.81 Active 994513574 Problem Essential hypertension I10 Active 72446239 Problem Other chronic pain G89.29 Active 27444535 Problem Hypermetropia of both eyes H52.03 Active 63789872 Problem Alzheimer's disease, unspecified G30.9 Active 172546697 Problem Mild episode of recurrent major depressive disorder F33.0 Active 043090242 Problem 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 Active 301838993 Problem Major depressive disorder, single episode, mild F32.0 Active 69769983 Problem Chronic fatigue R53.82 Active 03100175 Problem Hydrocele, unspecified hydrocele type N43.3 Active 78822308 Problem Other acute pulmonary embolism without acute cor pulmonale I26.99 Active 243977092 Problem 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 Active 246532139 Problem Asymptomatic microscopic hematuria R31.21 Active 821552991 Problem Gait instability R26.81 Active 15638801 Problem PVD (peripheral vascular disease) I73.9 Active 760613547 Problem At high risk for falls Z91.81 Active [id number] Problem 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 Active 32856042 Problem Benign non-nodular prostatic hyperplasia with lower urinary tract symptoms N40.1 Active 219755165 Problem Alzheimers disease with late onset G30.1 Active 388736921 Problem Renal cyst, left Q61.00 Active 88593272 Problem Mixed hyperlipidemia E78.2 Active 820825000 Problem Anxiety F41.9 Active 25248475 Problem Transient cerebral ischemia, unspecified transient cerebral ischemia type G45.9 Active 455295520 Problem Primary insomnia F51.01 Active 509962831 ALLERGIES No Information ENCOUNTERS Encounter Location Date Diagnosis [facility] [id number] [place] [address] 71674- 8129 Dec, [facility] [address] 30530- 6274 Nov, [facility] [address] 03627- 5660 Oct, Edema leg R60.0 [facility] [address] 38458- 5985 September, [facility] [address] 08348- 9174 September, Alzheimers disease with late onset G30.1 and Mild episode of recurrent major depressive disorder F33.0 [facility] [address] 04650- 5084 September, PVD (peripheral vascular disease) I73.9 ; Major depressive disorder, single episode, mild F32.0 ; Chronic fatigue R53.82 ; Weight gain R63.5 and Arthralgia, unspecified joint M25.50 [facility] [id number] [place] [address] 73497- 6454 Aug, Acute low back pain, unspecified back pain laterality, with sciatica presence unspecified M54.5 [facility] [id number] [place] [address] 56988- 1835 Aug, Acute low back pain, unspecified back pain laterality, with sciatica presence unspecified M54.5 [facility] [id number] [place] [address] 55837- 1826 Aug, Pain R52 [facility] [address] [place] [address]- 0521 Jul, [facility] [id number] [place] [address] 20424- 7711 Jun, [facility] [id number] [place] [address] 83097- 8015 07 Jun, 2017 Medicare annual wellness visit, initial Z00.00 ; Mixed hyperlipidemia E78.2 ; Essential hypertension I10 ; Anxiety F41.9 ; Alzheimers disease with late onset G30.1 ; 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 ; Overactive bladder N32.81 ; Primary insomnia F51.01 ; At high risk for falls Z91.81 and Encounter for immunization Z23 [facility] [id number] [place] [address] 19853- 3636 May, [facility] [address] 19185- 6624 May, Essential hypertension I10 and Transient cerebral ischemia, unspecified transient cerebral ischemia type G45.9 [facility] [id number] [place] [address] [id number] May, Dental examination Z01.20 and Dental caries K02.9 [facility] [id number] [place] [address] 05648- 4917 May, [facility] [facility] [id number] [place] [address] 03287- 5945 May, [facility] [id number] [place] [address] 76283- 7692 May, Alzheimers disease with late onset G30.1 [facility] [id number] [place] [address] 36494- 2562 Apr, [facility] [address] 64328- 3159 Apr, Alzheimers disease with late onset G30.1 and Mild episode of recurrent major depressive disorder F33.0 [facility] [facility] [address] [place] [address]- 7395 Mar, Mild episode of recurrent major depressive disorder F33.0 [facility] [address] 53404- 7973 Mar, Mixed hyperlipidemia E78.2 ; Essential hypertension I10 ; Asymptomatic microscopic hematuria R31.21 and Renal cyst, left Q61.00 [facility] [facility] [address] 97440- 0350 Mar, [facility] [address] 69457- 4427 Feb, Encounter for immunization Z23 [facility] [facility] [address] 98155- 8453 Feb, [facility] [address] 79071- 7140 Feb, [facility] [address] 08967 -3424 Feb, ANUG (acute necrotizing ulcerative gingivitis) A69.1 [facility] [id number] [place] [address] 51469- 8680 Feb, [facility] [id number] [place] [address] 64996- 4757 Feb, Mild episode of recurrent major depressive disorder F33.0 [facility] [id number] [place] [address] 01807- 3028 Feb, Alzheimers disease with late onset G30.1 and Mild episode of recurrent major depressive disorder F33.0 [facility] [id number] [place] [address] 10910- 8606 Jan, Alzheimers disease with late onset G30.1 [facility] [id number] [place] [address] 85378- 8196 18 Jan, 2017 Gait instability R26.81 [facility] [place] [id number] [address] Jan [facility] [id number] [id number] [place] [address] Dec [facility] [address] [address]- 8599 Dec, [facility] [address] [address]- 6846 Dec, [facility] [id number] [place] [address] 55651- 0820 Dec, Essential hypertension I10 ; Transient cerebral ischemia, unspecified transient cerebral ischemia type G45.9 and Anxiety F41.9 [facility] [id number] [place] [address] 88046- 7601 Dec, Gait instability R26.81 [facility] [id number] [place] [address] 10924- 2405 Dec, [facility] [id number] [place] [address] 23183- 8088 Nov, Alzheimers disease with late onset G30.1 and Mild episode of recurrent major depressive disorder F33.0 [facility] [address] [address]- 6372 Nov, [facility] [address], [place] [address]- 3060 Nov, Gait instability R26.81 [facility] [id number] [place] [address] 07158- 4151 Nov, Anxiety F41.9 [facility] [address], [place] [address]- 9977 Nov, [facility] [address], [place] [address]- 5613 Nov, [facility] [address], [place] [address]- 6886 Oct, Gait instability R26.81 [facility] [id number] [place] [address] 84850- 0758 14 Oct, 2016 Anxiety F41.9 [facility] [id number] [place] [address] 05119- 8305 13 Oct, 2016 Gait instability R26.81 [facility] [id number] [place] [address] 86528- 2789 Oct, Gait instability R26.81 [facility] [id number] [place] [address] 30051- 2640 Oct, [facility] [id number] [place] [address] 43348- 8222 Oct, Anxiety F41.9 ; Chronic 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 use Z79.899 ; Encounter for immunization Z23 and Transient cerebral ischemia, unspecified transient cerebral ischemia type G45.9 [facility] [id number] [place] [address] 09027- 6705 September, [facility] [id number] [place] [address] 55728- 9384 September, Gait instability R26.81 [facility] [id number] [place] [address] 66450- 1225 September, [facility] [id number] [place] [address] 20945- 4740 September, [facility] [id number] [place] [address] 39205- 0071 September, [facility] [id number] [place] [address] 01078- 5920 September, Alzheimers disease with late onset G30.1 and Mild episode of recurrent major depressive disorder F33.0 [facility] [id number] [place] [address] 71927- 8350 September, [facility] [id number] [place] [address] 34502- 2606 September, [facility] [id number] [address]- 4040 September, [facility] [id number], [place] [address]- 8455 September, Mild episode of recurrent major depressive disorder F33.0 [facility] [id number] [address]- 7586 Aug, Mild episode of recurrent major depressive disorder F33.0 ; Alzheimers disease with late onset G30.1 ; Other acute pulmonary embolism without acute cor pulmonale I26.99 and Cough R05 [facility] [address], [place] [address]- 8299 Aug, [facility] [id number] [place] [address] 71086- 5650 Aug, Gait instability R26.81 [facility] [address], [place] [address]- 8663 Aug, Alzheimers disease with late onset G30.1 and Mild episode of recurrent major depressive disorder F33.0 [facility] [address], [place] [address]- 8728 Aug, [facility] [id number] [address]- 9983 Aug, 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 [facility] [address], [place] [address]- 0910 Jul, Alzheimers disease with late onset G30.1 [facility] [id number], [place] [address]- 9153 Jul, [facility] [id number], [place] [address]- 4258 Jul, 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 [facility] [id number] [address]- 7971 Jul, Anxiety F41.9 ; Alzheimers disease with late onset G30.1 and Transient cerebral ischemia, unspecified transient cerebral ischemia type G45.9 [facility] [id number] [place] [address] 98864- 2980 Jun, Essential hypertension I10 [facility] [id number] [place] [address] 71968- 7877 Jun, [facility] [id number] [place] [address] 75164- 0582 Jun, [facility] [id number] [place] [address] 86865- 8767 Jun, [facility] [id number] [place] [address] 31823- 5168 Jun, Essential hypertension I10 ; Benign non-nodular prostatic hyperplasia with lower urinary tract symptoms N40.1 ; Anxiety F41.9 ; Pain in right knee M25.561 ; Pain in left knee M25.562 and Other chronic pain G89.29 [facility] [id number] [place] [address] 24104- 5658 May, [facility] [id number] [place] [address] 14165- 9536 May, [facility] [id number] [place] [address] 72894- 1801 May, [facility] [id number] [place] [address] 03221- 8570 Apr, [facility] [id number] [place] [address] 34529- 1260 Mar, [facility] [id number] [place] [address] 84001- 4950 Mar, Mixed hyperlipidemia E78.2 and Essential hypertension I10 [facility] [id number] [place] [address] 11372- 3505 Feb, [facility] [id number] [place] [address] 41606- 3995 Feb, Ingrown nail L60.0 and Onychomycosis B35.1 [facility] [id number] [place] [address] 69090- 9267 Feb, Paronychia, left L03.012 [facility] [id number] [place] [address] 21638- 1755 Jan, [facility] [address] 76988- 8162 Jan, Cramps of right lower extremity R25.2 and Mixed hyperlipidemia E78.2 [facility] [id number] [place] [address] 34742- 7219 Jan, Cramps of right lower extremity R25.2 ; Essential hypertension I10 ; Mixed hyperlipidemia E78.2 ; Chronic 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 use Z79.899 and Claudication I73.9 [facility] [id number] [place] [address] 11720- 1749 Jan, Right leg pain M79.604 [facility] [id number] [place] [address] 93373- 8651 Dec, [facility] [id number] [place] [address] 56480- 7985 Nov, [facility] [id number] [place] [address] 54756- 7678 Nov, [facility] [id number] [place] [address] 22002- 7397 Nov, [facility] [id number] [place] [address] 14005- 2215 Nov, Dermatofibroma D23.9 [facility] [id number] [place] [address] 64719- 4388 Nov, [facility] [id number] [place] [address] 31457- 2068 Oct, [facility] [id number], [place] [address]- 5830 Oct, [facility] [id number] [place] [address] 19082- 8940 September, Benign non-nodular prostatic hyperplasia with lower urinary tract symptoms N40.1 ; Essential hypertension I10 ; Overactive bladder N32.81 and Fatigue, unspecified type R53.83 [facility] [id number] [place] [address] 99431- 1254 September, [facility] [id number] [place] [address] 04388- 2812 September, [facility] [id number] [place] [address] 93562- 9671 Aug, [facility] [id number] [place] [address] 27452- 7824 Jul, [facility] [id number] [place] [address] 99692- 8347 Jul, Pelvic pain R10.2 ; Jock itch B35.6 ; Essential hypertension I10 and Hydrocele, unspecified hydrocele type N43.3 [facility] [address] [place] [address] 73894- 9393 Jun, [facility] [address], [place] [address]- 4710 Jun, [facility] [address] [place] [address] 74723- 0721 Jun, Benign non-nodular prostatic hyperplasia with lower urinary tract symptoms N40.1 [facility] [id number] [place] [address] 78558- 1088 Jun, Benign non-nodular prostatic hyperplasia with lower urinary tract symptoms N40.1 [facility] [address] [place] [address] 43308- 1223 Jun, [facility] [id number] [place] [address] 02519- 8842 May, [facility] [id number] [place] [address] 12139- 3019 Apr, [facility] [id number] [place] [address] 14312- 0467 Apr, [facility] [id number] [place] [address] 23228- 8935 Apr, Other acute pulmonary embolism without acute cor pulmonale I26.99 ; Anxiety F41.9 ; 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 and longterm 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 use Z79.899 [facility] [id number] [place] [address] 11875- 7080 Apr, [facility] [id number] [place] [address] 62886- 6002 Apr, [facility] [address] 64972- 0492 Mar, [facility] [id number] [place] [address] 52969- 5795 Mar, [facility] [id number] [place] [address] 20119- 0132 Feb, Cough R05 [facility] [id number] [place] [address] 01670- 7094 Feb, [facility] [id number] [place] [address] 99369- 4951 Feb, Encounter for immunization Z23 [facility] [id number] [place] [address] 31793- 0403 Feb, Other and unspecified hyperlipidemia 272.4 [facility] [id number] [place] [address] 81465- 0182 Jan, [facility] [id number] [place] [address] 98894- 7116 Jan, TIA (transient ischemic attack) 435.9 [facility] [address], [place] [address]- 6225 Dec, [facility] [id number] [place] [address] 97313- 7406 Dec, [facility] [address], [place] [address]- 2711 Dec, [facility] [id number] [place] [address] 12533- 0010 Nov, [facility] [id number] [place] [address] 06919- 2692 Oct, Chronic cough 786.2 [facility] [id number] [place] [address] 27238- 9747 Oct, [facility] [id number] [place] [address] 55607- 3768 Oct, [facility] [id number] [place] [address] 85634- 9697 Oct, [facility] [address], [place] [address]- 7784 Oct, [facility] [address] [place] [address] 01126- 3159 Oct, Chronic cough 786.2 [facility] [address], [place] [address]- 2608 Oct, Cough 786.2 ; Hypertension 401.9 ; BPH (benign prostatic hyperplasia) 600.00 ; Other and unspecified hyperlipidemia 272.4 and Hydrocele 603.9 [facility] [address], [place] [address]- 2530 Oct, [facility] [id number] [place] [address] 18110- 6019 September, [facility] [address], [place] [address]- 9315 Aug, [facility] [id number] [address]- 4642 13 Aug, 2014 [facility] [place] [facility] [address] [id number] [place] [address]- 3164 Jul, [facility] [place] [facility] [address] [id number] [place] [address]- 6969 Jul, [facility] [place] [facility] [address] [facility] [id number] [place] [address]- 7235 Jul, [facility] [place] [facility] [address] [id number] [place] [address]- 7514 Jul, [facility] [place] [facility] [address] [id number] [place] [address]- 7808 Jul, [facility] [place] [facility] [address] [id number] [place] [address]- 8168 Jun, 2014 [facility] [place] [facility] [address] [facility] [id number] [place] [address]- 5709 Jun, 2014 [facility] [place] [facility] [address] [facility] [id number] [place] [address]- 3339 Jun, [facility] [place] [facility] [address] [facility] [id number] [place] [address]- 2358 Jun, 2014 [facility] [place] [facility] [address] [facility] [id number] [place] [address]- 3087 Jun, 2014 [facility] [place] [facility] [address] [facility] [id number] [place] [address] 2542 Jun, 2014 [facility] [place] [facility] [address] [id number] [place] [address] 2544 Jun, 2014 [facility] [place] [facility] [address] [id number] [place] [address]- 7776 Jun, [facility] [place] [facility] [address] [facility] [id number] [place] [address]- 0868 May, [facility] [place] [facility] [address] [facility] [id number] [place] [address]- 1425 May, [facility] [place] [facility] [address] [id number] [place] [address]- 5819 May, [facility] [place] [facility] [address] [id number] [place] [address]- 0440 May, [facility] [place] [facility] [address] [id number] [place] [address]- 5160 May, [facility] [place] [facility] [address] [id number] [place] [address]- 4165 May, [facility] [place] [facility] [address] [id number] [place] [address]- 5667 May, [facility] [place] [facility] [address] [id number] [place] [address]- 8571 May, [facility] [place] [facility] [address] [id number] [place] [address]- 9050 May, [facility] [place] [facility] [address] [id number] [place] [address]- 6401 May, [facility] [place] [facility] [address] [id number] [place] [address]- 7077 Apr, [facility] [place] [facility] [address] [id number] [place] [address] Apr, [facility] [place] [facility] [address] [id number] [address] Apr, [facility] [place] [facility] [address] [id number], [place] [address] Apr, [facility] [place] [facility] [address] [id number] [place] [address] Apr, [facility] [place] [facility] [address] [id number] [place] [address] Apr, [facility] [place] [facility] [address] [id number] [place] [address] Apr, [facility] [place] [facility] [address] [id number] [place] [address] Apr, [facility] [place] [facility] [address] [id number] [place] [address] Mar, [facility] [place] [facility] [address] [id number] [place] [address] Mar, [facility] [place] [facility] [address] [id number] [place] [address] Mar, [facility] [place] [facility] [address] [id number] [place] [address] Mar, [facility] [place] [facility] [address] [id number] [place] [address] Mar, [facility] [place] [facility] [address] [id number] [place] [address] Mar, [facility] [place] [facility] [address] [id number] [place] [address] Mar, [facility] [place] [facility] [address] [id number] [place] [address]- [address] Mar, [facility] [place] [facility] [address] [id number] [place] [address] Mar, [facility] [place] [facility] [address] [id number] [place] [address] Mar, [facility] [place] [facility] [address] [id number] [place] [address] Feb, [facility] [place] [facility] [address] [id number] [place] [address] Feb, [facility] [place] [facility] [address] [id number] [place] [address]- 4135 Feb, [facility] [place] [facility] [address] [id number] [place] [address] Feb, [facility] [place] [facility] [address] [id number] [place] [address] 73[address] Feb, [facility] [place] [facility] [address] [id number] [place] [address] 14 Feb, 2014 [facility] [place] [facility] [address] [id number] [place] [address] 30 Jan, 2013 [facility] [place] [facility] [address] [id number] [place] [address]841 30 Jan, 2013 [facility] [place] [facility] [address] [id number] [place] [address]- 3276 24 Jan, 2013 [facility] [place] [facility] [address] [id number] [place] [address] 4559 24 Jan, 2013 [facility] [place] [facility] [address] [id number] [place] [address]- 9262 19 Jan, 2013 [facility] [place] [facility] [address] [id number] [place] [address]- 3950 19 Jan, 2013 [facility] [place] [facility] [address] [id number] [place] [address]- 7753 16 Jan, 2013 [facility] [place] [facility] [address] [id number] [place] [address]- 6246 16 Jan, 2013 [facility] [place] [facility] [address] [id number] [place] [address]- 1057 16 Jan, 2013 [facility] [place] [facility] [address] [id number] [place] [address]- 5463 16 Jan, 2013 [facility] [place] [facility] [address] [id number] [place] [address]- 9840 12 Jan, 2013 [facility] [place] [facility] [address] [id number] [place] [address]- 4957 12 Jan, 2014 [facility] [place] [facility] [address] [id number] [place] [address]- 7777 Dec, [facility] [place] [facility] [address] [id number] [place] [address]- 4384 Dec, [facility] [place] [facility] [address] [id number] [place] [address]- 1720 Dec, [facility] [place] [facility] [address] [id number] [place] [address]- 6492 Dec, [facility] [place] [facility] [address] [id number] [place] [address]- 9255 Dec, [facility] [place] [facility] [address] [id number] [place] [address]- 9872 Dec, [facility] [place] [facility] [address] [id number] [place] [address]- 8471 Nov, [facility] [place] [facility] [address] [id number] [place] [address]- 8473 Nov, [facility] [place] [facility] [address] [id number] [place] [address]- 9758 Nov, [facility] [place] [facility] [address] [id number] [place] [address]- 5633 Nov, [facility] [place] [facility] [address] [id number] [place] [address]- 7608 Nov, [facility] [place] [facility] [address] [id number] [place] [address]- 5884 Nov, [facility] [place] [facility] [address] [id number] [place] [address]- 6087 Nov, [facility] [place] [facility] [address] [id number] [place] [address]- 1699 Nov, [facility] [place] [facility] [address] [id number] [place] [address]- 4035 Oct, [facility] [place] [facility] [address] [id number] [place] [address]- 1345 Oct, [facility] [place] [facility] [address] [id number] [place] [address]- 1518 Oct, [facility] [place] [facility] [address] [id number] [place] [address]- 9380 Oct, [facility] [place] [facility] [address] [id number] [place] [address]- 5572 September, [facility] [address] [id number] [place] [address]- 9451 September, [facility] [address] [id number] [place] [address] 1620 September, [facility] [address] [id number] [place] [address]- 5458 September, [facility] [address] [id number] [place] [address]- 9867 September, [facility] [address] [id number] [place] [address]- 7889 September, [facility] [address] [id number] [place] [address]- 1255 Aug, [facility] [address] [id number] [place] [address]- 9510 Aug, [facility] [address] [id number] [place] [address]- 4862 Aug, [facility] [address] [id number] [place] [address]- 5169 Aug, [facility] [address] [id number] [place] [address]- 6550 Aug, [facility] [place] [facility] [address] [id number] [place] [address] 7203 Aug, [facility] [address] [id number] [place] [address] 5816 Aug, [facility] [place] [facility] [address] [id number] [place] [address] Aug, [facility] [place] [facility] [address] [id number] [place] [address] 8001 Jul, [facility] [place] [facility] [address] [id number] [place] [address]- 7881 Jul, [facility] [place] [facility] [address] [id number] [place] [address]- 8589 Jun, [facility] [place] [facility] [address] [id number] [place] [address]- 3460 Jun, [facility] [place] [facility] [address] [id number] [place] [address] Jun, [facility] [place] [facility] [address] [id number] [place] [address]- 0386 Jun, [facility] [place] [facility] [address] [id number] [place] [address]- 2397 Jun, [facility] [place] [facility] [address] [id number] [place] [address]- 3072 May, [facility] [place] [facility] [address] [id number] [place] [address]- 8062 May, [facility] [place] [facility] [address] [id number] [address]- 1526 May, [facility] [place] [facility] [address] [facility] [id number] [place] [address]- 3421 May, [facility] [place] [facility] [address] [facility] [id number] [place] [address]- 2487 Apr, [facility] [place] [facility] [address] [id number], [place] [address]- 6196 Apr, [facility] [place] [facility] [address] [id number], [place] [address] 8334 Mar, [facility] [place] [facility] [address] [id number] [place] [address]- 8623 Mar, [facility] [place] [facility] [address] [id number], [place] [address]- 0450 Feb, [facility] [place] [facility] [address] [facility] [id number] [place] [address]- 9632 Feb, [facility] [place] [facility] [address] [id number] [place] [address]- 8847 Feb, [facility] [place] [facility] [address] [id number] [place] [address]- 7962 Feb, [facility] [place] [facility] [address] [id number] [place] [address]- 0238 Feb, [facility] [place] [facility] [address] [id number] [place] [address]- 7185 Feb, [facility] [place] [facility] [address] [id number] [place] [address]- 7986 Feb, [facility] [place] [facility] [address] [id number] [place] [address]- 4600 Jan, [facility] [place] [facility] [address] [id number] [place] [address]- 7577 Jan, [facility] [place] [facility] [address] [id number] [place] [address]- 2038 Dec, [facility] [place] [facility] [address] [id number] [place] [address]- 0240 Dec, [facility] [place] [facility] [address] [id number] [place] [address]- 6822 Dec, [facility] [place] [facility] [address] [id number] [place] [address]- 0059 Dec, [facility] [place] [facility] [address] [id number] [place] [address]- 6195 Dec, [facility] [place] [facility] [address] [id number] [place] [address] 1945 Nov, [facility] [place] [facility] [address] [id number] [place] [address]- 9241 Nov, [facility] [place] [facility] [address] [id number] [place] [address]- 1924 Nov, [facility] [place] [facility] [address] [id number] [place] [address]- 2924 Oct, [facility] [place] [facility] [address] [id number] [place] [address]- 2573 Oct, [facility] [address] [id number] [place] [address]- 8371 Oct, [facility] [address] [id number] [place] [address]- 3046 September, [facility] [address] [id number] [place] [address]- 1448 Aug, [facility] [address] [id number] [place] [address]- 6476 Aug, [facility] [address] [id number] [place] [address]- 7643 Aug, [facility] [address] [id number] [place] [address]- 2731 Jul, [facility] [address] [id number] [place] [address]- 9891 Jul, [facility] [address] [id number] [place] [address]- 0102 Jul, [facility] [address] [id number] [place] [address]- 6627 Jul, [facility] [address] [id number] [place] [address]- 5614 Jul, [facility] [address] [id number] [place] [address]- 0457 Jun, [facility] [place] [facility] [address] [id number] [place] [address]- 6466 Jun, [facility] [place] [facility] [address] [id number] [place] [address]- 7096 May, [facility] [place] [facility] [address] [id number] [place] [address]- 2546 May, [facility] [place] [facility] [address] [id number], [place] [address] 2546 Apr, [facility] [address] [id number], [place] [address] 2546 Apr, [facility] [place] [facility] [address] [id number], [place] [address]- 2546 Mar, [facility] [address] [facility] [id number], [place] [address]- 2546 Mar, [facility] [place] [facility] [address] [id number], [place] [address]- 2546 Mar, [facility] [address] [facility] [id number], [place] [address]- 2546 Mar, [facility] [address] [id number] [id number] Feb, [facility] [address] [id number], [place] [address]- 9556 Feb, [facility] [place] [facility] [address] [facility] [id number], [place] [address]- 6066 Feb, [facility] [address] [id number], [place] [address]- 8866 Feb, [facility] [place] [facility] [address] [id number], [place] [address]- 7836 Feb, [facility] [address] [id number], [place] [address]- 2546 Feb, [facility] [place] [facility] [address] [id number], [place] [address]- 2546 Feb, [facility] [place] [facility] [address] [id number], [place] [address]- 2546 Jan, [facility] [place] [facility] [address] [id number], [place] [address]- 2546 Jan, [facility] [place] [facility] [address] [facility] [id number], [place] [address]- 2546 Dec, [facility] [place] [facility] [address] [id number] [place] [address] 2546 Dec, [facility] [address] [id number] [place] [address]- 8195 Nov, [facility] [place] [facility] [address] [id number] [place] [address] 2546 Oct, [facility] [address] [id number] [place] [address] 2546 September, [facility] [place] [facility] [address] [id number] [place] [address]- 2546 September, [facility] [address] [id number] [place] [address] 2546 September, [facility] [address] [id number] [place] [address]- 1286 Aug, [facility] [address] [id number] [place] [address]- 9411 May, [facility] [address] [id number] [place] [address]- 6270 May, [facility] [address] [id number] [place] [address]- 8123 Apr, [facility] [address] [facility] [id number] [place] [address]- 9883 Apr, [facility] [address] [id number] [place] [address]- 4450 Apr, [facility] [address] [id number] [place] [address]- 2546 Apr, [facility] [place] [facility] [address] [id number] [place] [address]- 2546 Apr, [facility] [place] [facility] [address] [id number] [place] [address]- 2546 Mar, [facility] [address] [id number] [place] [address]- 0276 Feb, [facility] [address] [facility] [id number], [place] [address]- 9564 Feb, [facility] [address] [id number], [place] [address]- 6753 September, [facility] [address] [id number], [place] [address]- 3917 Mar, [facility] [id number], [place] [address]- 4838 Feb, [facility] [address] [id number], [place] [address]- 8016 Feb, [facility] [address] [id number], [place] [address]- 2346 Feb, IMMUNIZATIONS No Known Immunizations SOCIAL HISTORY Never Assessed REASON FOR VISIT Lab (walk-in) PLAN OF CARE VITAL SIGNS MEDICATIONS Unknown Medications RESULTS No Results PROCEDURES Procedure Date Ordered Result Body Site LAB NOT BILLED BY [facility] Jun 20, 2017 VENIPUNCT, ROUTINE* Jun 20, 2017 INSTRUCTIONS MEDICATIONS ADMINISTERED No Known Medications [...] foot fracture Hospitalization History [facility] [place]- Back Pain 03/24/2017
--- OUTSIDE RECORDS SUMMARY | 2018-04-10 18:19 | XMS REPORT ---
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 Name Role Phone MCQUEENDANIEAN Unavailable PROBLEMS Type Condition ICD9-CM Code SRS40-ZB Code Onset Dates Condition Status SNOMED Code Problem Color blindness H53.50 Active 910148590 Problem Presbyopia of both eyes H52.4 Active 13762525 Problem Nuclear senile cataract of both eyes H25.13 Active 004364893 Problem Astigmatism of both eyes, unspecified type H52.203 Active 80795600 Problem Overactive bladder N32.81 Active 208517451 Problem Essential hypertension I10 Active 71966765 Problem Other chronic pain G89.29 Active 37177238 Problem Hypermetropia of both eyes H52.03 Active 07327002 Problem Alzheimer's disease, unspecified G30.9 Active 017028920 Problem Mild episode of recurrent major depressive disorder F33.0 Active 693294130 Problem 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 Active 828692841 Problem Major depressive disorder, single episode, mild F32.0 Active 68286128 Problem Chronic fatigue R53.82 Active 20738761 Problem Hydrocele, unspecified hydrocele type N43.3 Active 11359219 Problem Other acute pulmonary embolism without acute cor pulmonale I26.99 Active 366442963 Problem 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 Active 825658128 Problem Asymptomatic microscopic hematuria R31.21 Active 550303924 Problem Gait instability R26.81 Active 45950438 Problem PVD (peripheral vascular disease) I73.9 Active 295079384 Problem At high risk for falls Z91.81 Active [id number] Problem 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 Active 99615210 Problem Benign non-nodular prostatic hyperplasia with lower urinary tract symptoms N40.1 Active 608963542 Problem Alzheimers disease with late onset G30.1 Active 365520325 Problem Renal cyst, left Q61.00 Active 93241456 Problem Mixed hyperlipidemia E78.2 Active 429834605 Problem Anxiety F41.9 Active 76038364 Problem Transient cerebral ischemia, unspecified transient cerebral ischemia type G45.9 Active 971430503 Problem Primary insomnia F51.01 Active 459661776 ALLERGIES No Information ENCOUNTERS Encounter Location Date Diagnosis [place] [address] [address] Dec, [place] [address] [address]- [address]04 September, Alzheimers disease with late onset G30.1 and Mild episode of recurrent major depressive disorder F33.0 [place] [address] [address]27- 3033 September, PVD (peripheral vascular disease) I73.9 ; Major depressive disorder, single episode, mild F32.0 ; Chronic fatigue R53.82 ; Weight gain R63.5 and Arthralgia, unspecified joint M25.50 [place] [address] [address]- 6[address] Aug, Acute low back pain, unspecified back pain laterality, with sciatica presence unspecified M54.5 [place] [address] 34[address]- [address]34 Aug, Acute low back pain, unspecified back pain laterality, with sciatica presence unspecified M54.5 [place] [address] 38566- 2682 Aug, Pain R52 [place] [address] [address]23- 2272 Jul, [place] [address] 8[address]32- 2700 Jun, [place] [address] 17239- 3615 07 Jun, 2017 Mixed hyperlipidemia E78.2 ; Medicare annual wellness visit , initial Z00.00 ; Essential hypertension I10 ; Anxiety F41.9 ; Alzheimers disease with late onset G30.1 ; 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 ; Overactive bladder N32.81 ; Primary insomnia F51.01 ; At high risk for falls Z91.81 and Encounter for immunization Z23 [facility] [address] [address] May, [facility] [address] [address]- [address]34 May, Essential hypertension I10 and Transient cerebral ischemia, unspecified transient cerebral ischemia type G45.9 [facility] [address] [id number] May, Dental examination Z01.20 and Dental caries K02.9 [place] [address] 87679- 7[address] May, [place] [address] 9[address]34- 3318 May, [place] [address] 19692- 1073 May, Alzheimers disease with late onset G30.1 [place] [address] [address]17- 1495 Apr, [place] [address] 19465- 0624 Apr, Alzheimers disease with late onset G30.1 and Mild episode of recurrent major depressive disorder F33.0 [place] [address] 04704- 6781 Mar, Mild episode of recurrent major depressive disorder F33.0 [place] [address] 64720- 0665 Mar, Mixed hyperlipidemia E78.2 ; Essential hypertension I10 ; Asymptomatic microscopic hematuria R31.21 and Renal cyst, left Q61.00 [place] [address] 05933- 9589 Mar, [facility] [address], [place] [address] Feb, Encounter for immunization Z23 [facility] [address] [address] Feb, [facility] [address] [place] [id number] [place] [address] 17013- 0048 Feb, [facility] [id number] [place] [address] 57339 -9334 Feb, ANUG (acute necrotizing ulcerative gingivitis) A69.1 [facility] [address] [place] [id number] [place] [address] 91607- 8741 Feb, [facility] [address] [place] [id number] [place] [address] 08798- 9587 Feb, Mild episode of recurrent major depressive disorder F33.0 [facility] [address] [place] [id number] [place] [address] 61050- 2302 Feb, Alzheimers disease with late onset G30.1 and Mild episode of recurrent major depressive disorder F33.0 [facility] [id number] [place] [address] 14180- 1994 Jan, Alzheimers disease with late onset G30.1 [facility] [address] [address] 7[address] Jan, Gait instability R26.81 [facility] [address] [id number] [place] [address] Jan [facility] [address] [id number] [place] [address] Dec [facility] [address], [place] [address]- 6057 Dec, [facility] [address], [place] [address]- 6328 Dec, [facility] [address] [place] [id number] [address] Dec, Essential hypertension I10 ; Transient cerebral ischemia, unspecified transient cerebral ischemia type G45.9 and Anxiety F41.9 [facility] [address] [place] [id number] [address] Dec, Gait instability R26.81 [facility] [address] [place] [id number] [place] [address] 44369- 5677 Dec, [facility] [address] [place] [id number] [place] [address] 42824- 3068 Nov, Alzheimers disease with late onset G30.1 and Mild episode of recurrent major depressive disorder F33.0 [facility] [address] [place] [id number] [place] [address] 30504- 7128 Nov, [facility] [address] [place] [id number] [place] [address] 32223- 1377 Nov, Gait instability R26.81 [facility] [address] [place] [id number] [place] [address] 57585- 1933 Nov, Anxiety F41.9 [facility] [address] [place] [id number] [place] [address] 47663- 9319 Nov, [facility] [address] [place] [id number] [place] [address] 32717- 6630 Nov, [facility] [address] [place] [id number] [place] [address] 70416- 8736 Oct, Gait instability R26.81 [facility] [address] [place] [address] 53926- 5511 Oct, Anxiety F41.9 [facility] [address] [place] [id number] [place] [address] 56241- 6932 Oct, Gait instability R26.81 [facility] [address], [place] [address] 5[address] Oct, Gait instability R26.81 [facility] [address], [place] [address] 0614 Oct, [facility] [address] [id number] [address] 8[address] Oct, Anxiety F41.9 ; Chronic 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 use Z79.899 ; Encounter for immunization Z23 and Transient cerebral ischemia, unspecified transient cerebral ischemia type G45.9 [facility] [address] [id number] [address] 3981 September, [facility] [id number] [address]- 0965 September, Gait instability R26.81 [facility] [address] [id number] [address]- 9198 September, [facility] [address], [place] [address]- 4811 September, [facility] [address], [place] [address]- 7393 September, [facility] [address], [place] [address]- 5978 September, Alzheimers disease with late onset G30.1 and Mild episode of recurrent major depressive disorder F33.0 [facility] [address], [place] [address]- 6928 September, [facility] [address], [place] [address]- 8467 September, [facility] [address] [place] [id number] [address]- 9360 September, [facility] [address], [place] [address]- 5468 September, Mild episode of recurrent major depressive disorder F33.0 [facility] [address] [place] [id number] [address]- 5994 Aug, Mild episode of recurrent major depressive disorder F33.0 ; Alzheimers disease with late onset G30.1 ; Other acute pulmonary embolism without acute cor pulmonale I26.99 and Cough R05 [facility] [address] [place] [id number] [place] [address] 76959- 1367 Aug, [facility] [address] [place] [id number] [place] [address] 60444- 2994 Aug, Gait instability R26.81 [facility] [address] [place] [id number] [place] [address] 68785- 8783 Aug, Alzheimers disease with late onset G30.1 and Mild episode of recurrent major depressive disorder F33.0 [facility] [address] [place] [id number] [place] [address] 76439- 4693 Aug, [place] [address] [place] [id number] [place] [address] 30919- 6615 Aug, 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 [facility] [address] [place] [id number] [place] [address] 96776- 6628 Jul, Alzheimers disease with late onset G30.1 [place] [address] [place] [id number] [place] [address] 18660- 5358 Jul, [place] [address] [place] [id number] [place] [address] 89545- 9832 Jul, 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 [facility] [address] [place] [id number] [place] [address] 13125- 3383 Jul, Anxiety F41.9 ; Alzheimers disease with late onset G30.1 and Transient cerebral ischemia, unspecified transient cerebral ischemia type G45.9 [facility] [address] [id number] [place] [address] 57324- 4184 Jun, Essential hypertension I10 [facility] [address] [place] [id number] [place] [address] 87635- 1322 Jun, [facility] [address] [place] [id number] [place] [address] 14910- 3949 Jun, [facility] [id number] [place] [address] 33677- 4531 Jun, [facility] [address] [place] [id number] [place] [address] 23320- 4336 Jun, Essential hypertension I10 ; Benign non-nodular prostatic hyperplasia with lower urinary tract symptoms N40.1 ; Anxiety F41.9 ; Pain in right knee M25.561 ; Pain in left knee M25.562 and Other chronic pain G89.29 [facility] [address] [place] [id number] [place] [address] 56809- 0423 May, [facility] [address] [place] [id number] [place] [address] 67944- 8695 May, [facility] [address] [place] [id number] [place] [address] 05803- 7236 May, [facility] [address] [place] [id number] [place] [address] 37628- 5753 Apr, [facility] [address] [place] [id number] [place] [address] 32197- 0247 Mar, [facility] [address] [place] [id number] [place] [address] 59216- 4242 Mar, Mixed hyperlipidemia E78.2 and Essential hypertension I10 [facility] [address] [place] [id number] [place] [address] 73750- 7549 Feb, [facility] [address] [place] [id number] [place] [address] 72687- 1741 Feb, Ingrown nail L60.0 and Onychomycosis B35.1 [facility] [address] [place] [id number] [place] [address] 29433- 4194 Feb, Paronychia, left L03.012 [facility] [address] [place] [id number] [place] [address] 92390- 0589 Jan, [facility] [address] [place] [id number] [place] [address] 04158- 8870 07 Jan, 2016 Mixed hyperlipidemia E78.2 and Cramps of right lower extremity R25.2 [facility] [id number] [place] [address] 73078- 2599 Jan, Cramps of right lower extremity R25.2 ; Essential hypertension I10 ; Mixed hyperlipidemia E78.2 ; Chronic 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 use Z79.899 and Claudication I73.9 [facility] [address] [id number] [place] [address] 80913- 4402 Jan, Right leg pain M79.604 [facility] [address] [place] [id number] [place] [address] 71864- 1590 Dec, [facility] [id number] [place] [address] 14585- 9802 Nov, [facility] [id number] [place] [address] 88154- 2613 Nov, [facility] [id number] [place] [address] 75036- 3333 Nov, [facility] [id number] [place] [address] 38388- 8275 Nov, Dermatofibroma D23.9 [facility] [id number] [place] [address] 74289- 1433 Nov, [facility] [id number] [place] [address] 13545- 4423 Oct, [facility] [id number] [place] [address] 85028- 5078 Oct, [facility] [id number] [place] [address] 66690- 6962 September, Benign non-nodular prostatic hyperplasia with lower urinary tract symptoms N40.1 ; Essential hypertension I10 ; Overactive bladder N32.81 and Fatigue, unspecified type R53.83 [facility] [id number], [place] [address]- 8540 September, [facility] [id number] [place] [address] 159064- 8247 September, [facility] [id number] 1272 Aug, [facility] [id number] [place] [address] 438295- 1982 Jul, [facility] [id number] [place] [address] 145299- 6481 Jul, Pelvic pain R10.2 ; Jock itch B35.6 ; Essential hypertension I10 and Hydrocele, unspecified hydrocele type N43.3 [facility] [id number] [place] [address] 15578- 4236 Jun, [facility] [id number] [place] [address] 792793- 7661 Jun, [facility] [id number] [place] [address] 15921- 2707 Jun, Benign non-nodular prostatic hyperplasia with lower urinary tract symptoms N40.1 [facility] [address], [place] [address]- 0284 Jun, Benign non-nodular prostatic hyperplasia with lower urinary tract symptoms N40.1 [facility] [address], [place] [address]- 1076 Jun, [facility] [address] 2304 May, [facility] [id number] [place] [address] 898153- 4037 Apr, [facility] [address]- 9997 Apr, [facility] [address] 5977 Apr, Other acute pulmonary embolism without acute cor pulmonale I26.99 ; Anxiety F41.9 ; 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 and long term acute care registered nurse 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 use Z79.899 [facility] [id number] [place] [address] 17293- 1073 Apr, [facility] [id number] [place] [address] 78336- 5020 Apr, [facility] [id number] [place] [address] 37255- 3519 Mar, [facility] [id number] [place] [address] 48717- 5139 Mar, [facility] [id number] [place] [address] 74615- 0317 Feb, Cough R05 [facility] [id number] [place] [address] 28356- 6490 Feb, [facility] [id number] [place] [address] 17198- 2156 Feb, Encounter for immunization Z23 [facility] [id number] [place] [address] 32474- 7189 Feb, Other and unspecified hyperlipidemia 272.4 [facility] [id number] [place] [address] 83018- 0058 Jan, [facility] [id number] [place] [address] 99557- 1459 Jan, TIA (transient ischemic attack) 435.9 [facility] [id number] [place] [address] 40264- 7719 Dec, [facility] [id number] [place] [address] 29622- 2711 Dec, [facility] [id number] [place] [address] 81796- 9520 Dec, [facility] [id number] [place] [address] [place] [address]- 0537 Nov, [facility] [address], [place] [address]- 4220 Oct, Chronic cough 786.2 [facility] [address], [place] [address]- 3961 Oct, [facility] [id number] [place] [address] 79558- 2695 Oct, [facility] [id number] [place] [address] 44289- 7041 Oct, [facility] [id number] [place] [address] 64432- 9832 Oct, [facility] [id number] [place] [address] 01321- 1763 Oct, Chronic cough 786.2 [facility] [id number] [place] [address] 09025- 4956 Oct, Cough 786.2 ; Hypertension 401.9 ; BPH (benign prostatic hyperplasia) 600.00 ; Other and unspecified hyperlipidemia 272.4 and Hydrocele 603.9 [facility] [address], [place] [address]- 7781 Oct, [facility] [address], [place] [address]- 3763 September, [facility] [address], [place] [address]- 8123 Aug, [facility] [address], [place] [address]- 0155 Aug, [facility] [id number] [place] [address] 31659- 6673 Jul, [facility] [address], [place] [address]- 7242 Jul, [facility] [id number] [place] [address] 04713- 2606 Jul, [facility] [place] [facility] [address] [id number] [place] [address]- 7855 Jul, [facility] [place] [facility] [address] [id number] [place] [address]- 5360 Jul, [facility] [place] [facility] [address] [facility] [id number] [place] [address] Jun, 2014 [facility] [place] [facility] [address] [id number] [place] [address] Jun, 2014 [facility] [place] [facility] [address] [id number] [place] [address] Jun, 2014 [facility] [place] [facility] [address] [facility] [id number] [place] [address] Jun, 2014 [facility] [place] [facility] [address] [facility] [id number] [place] [address] Jun, 2014 [facility] [place] [facility] [address] [facility] [id number] [place] [address] Jun, [facility] [place] [facility] [address] [facility] [id number] [place] [address] Jun, [facility] [place] [facility] [address] [facility] [id number] [place] [address] Jun, [facility] [place] [facility] [address] [facility] [id number] [place] [address] May, [facility] [place] [facility] [address] [facility] [id number], [place] [address] May, [facility] [place] [facility] [address] [id number] [place] [address] May, [facility] [place] [facility] [address] [facility] [id number] [place] [address] May, [facility] [place] [facility] [address] [facility] [id number], [place] [address] May, [facility] [place] [facility] [address] [id number] [place] [address] May, [facility] [place] [facility] [address] [id number] [place] [address] May, [facility] [place] [facility] [address] [id number] [place] [address] May, [facility] [place] [facility] [address] [id number] [place] [address] May, [facility] [place] [facility] [address] [id number] [place] [address] May, [facility] [place] [facility] [address] [id number] [place] [address] Apr, [facility] [place] [facility] [address] [id number] [place] [address] Apr, [facility] [place] [facility] [address] [id number] [place] [address] Apr, [facility] [place] [facility] [address] [id number] [place] [address] 2983 Apr, [facility] [place] [facility] [address] [id number] [place] [address]20 Apr, [facility] [place] [facility] [address] [id number] [place] [address] 9714 Apr, [facility] [place] [facility] [address] [id number] [place] [address] 2555 Apr, [facility] [place] [facility] [address] [id number] [place] [address] Apr, [facility] [place] [facility] [address] [id number] [place] [address] Mar, [facility] [place] [facility] [address] [id number] [place] [address] Mar, [facility] [place] [facility] [address] [id number] [place] [address] 7215 Mar, [facility] [place] [facility] [address] [id number] [place] [address]- 8062 Mar, [facility] [place] [facility] [address] [id number] [place] [address]- 4570 Mar, [facility] [place] [facility] [address] [id number] [place] [address]- 6727 Mar, [facility] [place] [facility] [address] [id number] [place] [address]- 9540 Mar, [facility] [place] [facility] [address] [id number] [place] [address]- 6296 Mar, [facility] [place] [facility] [address] [id number] [place] [address] 1295 Mar, [facility] [place] [facility] [address] [id number] [place] [address]- 4849 Mar, [facility] [place] [facility] [address] [id number], [place] [address] Feb, [facility] [place] [facility] [address] [id number] [place] [address]- 4804 Feb, [facility] [place] [facility] [address] [id number] [place] [address]- 5568 Feb, [facility] [place] [facility] [address] [id number], [place] [address] Feb, [facility] [place] [facility] [address] [id number], [place] [address]- 3898 Feb, [facility] [place] [facility] [address] [id number] [place] [address]- 2686 Feb, [facility] [place] [facility] [address] [id number], [place] [address] 30 Jan, 2014 [facility] [place] [facility] [address] [id number] [place] [address]- 6421 30 Jan, 2014 [facility] [place] [facility] [address] [id number] [place] [address]- 7977 24 Jan, 2013 [facility] [place] [facility] [address] [id number] [place] [address] 2546 24 Jan, 2013 [facility] [place] [facility] [address] [id number] [place] [address] 2546 19 Jan, 2013 [facility] [place] [facility] [address] [id number] [place] [address]- 1536 19 Jan, 2013 [facility] [place] [facility] [address] [id number] [place] [address] 2541 16 Jan, 2013 [facility] [place] [facility] [address] [id number] [place] [address]- 3042 16 Jan, 2013 [facility] [place] [facility] [address] [id number] [place] [address]- 7931 16 Jan, 2013 [facility] [place] [facility] [address] [id number] [place] [address]- 5003 16 Jan, 2013 [facility] [place] [facility] [address] [id number] [place] [address]- 4127 12 Jan, 2013 [facility] [place] [facility] [address] [id number] [place] [address]- 0946 Jan, 2013 [facility] [place] [facility] [address] [id number] [place] [address]- 9291 Dec, [facility] [place] [facility] [address] [id number] [place] [address]- 2543 Dec, [facility] [place] [facility] [address] [id number] [place] [address]- 3096 Dec, [facility] [place] [facility] [address] [id number] [place] [address]- 3502 Dec, [facility] [place] [facility] [address] [id number] [place] [address]- 8148 Dec, [facility] [place] [facility] [address] [id number] [place] [address]- 6032 Dec, [facility] [place] [facility] [address] [id number] [place] [address]- 1854 Nov, [facility] [place] [facility] [address] [id number] [place] [address]- 1585 Nov, [facility] [place] [facility] [address] [id number] [place] [address]- 3429 Nov, [facility] [place] [facility] [address] [id number] [place] [address]- 9135 Nov, [facility] [place] [facility] [address] [id number] [place] [address]- 2067 Nov, [facility] [place] [facility] [address] [id number] [place] [address]- 2953 Nov, [facility] [place] [facility] [address] [id number] [place] [address]- 2652 Nov, [facility] [place] [facility] [address] [id number] [place] [address]- 5329 Nov, [facility] [place] [facility] [address] [id number] [place] [address]- 2758 Oct, [facility] [place] [facility] [address] [id number] [place] [address]- 9612 Oct, [facility] [place] [facility] [address] [id number] [place] [address]- 1519 Oct, [facility] [place] [facility] [address] [id number] [place] [address]- 7556 Oct, [facility] [place] [facility] [address] [id number] [place] [address]- 2098 September, [facility] [place] [facility] [address] [id number] [place] [address]- 9002 September, [facility] [place] [facility] [address] [id number] [place] [address]- 5051 September, [facility] [place] [facility] [address] [id number], [place] [address] 44[address] September, [facility] [address] [id number] [place] [address]- 8478 September, [facility] [place] [facility] [address] [id number] [place] [address]- 6786 September, [facility] [place] [facility] [address] [id number] [place] [address]- 6727 Aug, [facility] [place] [facility] [address] [id number] [place] [address]- 5313 Aug, [facility] [place] [facility] [address] [id number] [place] [address]- 1316 Aug, [facility] [place] [facility] [address] [id number] [place] [address]- 1076 Aug, [facility] [place] [facility] [address] [facility] [id number] [place] [address]- 3146 Aug, [facility] [place] [facility] [address] [id number] [place] [address]- 8454 Aug, [facility] [place] [facility] [address] [id number] [place] [address]- 2397 Aug, [facility] [place] [facility] [address] [facility] [id number] [place] [address]- 7199 Aug, [facility] [place] [facility] [address] [id number] [place] [address]- 2444 Jul, [facility] [place] [facility] [address] [id number] [place] [address]- 7284 Jul, [facility] [place] [facility] [address] [id number] [place] [address]- 0172 Jun, [facility] [place] [facility] [address] [id number] [place] [address]- 3829 Jun, [facility] [place] [facility] [address] [facility] [id number] [place] [address]- 4192 Jun, [facility] [place] [facility] [address] [id number] [place] [address]- 5462 Jun, [facility] [place] [facility] [address] [id number] [place] [address]- 7260 Jun, [facility] [place] [facility] [address] [id number] [place] [address]- 6960 May, [facility] [place] [facility] [address] [id number] [place] [address]- 2120 May, [facility] [place] [facility] [address] [id number] [place] [address]- 9176 May, [facility] [place] [facility] [address] [id number] [place] [address]- 8743 May, [facility] [place] [facility] [address] [id number] [place] [address]- 2364 Apr, [facility] [place] [facility] [address] [id number] [place] [address]- 7798 Apr, [facility] [place] [facility] [address] [id number] [place] [address]- 8101 Mar, [facility] [place] [facility] [address] [id number] [place] [address]- 9877 Mar, [facility] [place] [facility] [address] [id number] [place] [address]- 4710 Feb, [facility] [place] [facility] [address] [id number] [place] [address]- 5077 Feb, [facility] [place] [facility] [address] [id number] [place] [address]- 9770 Feb, [facility] [place] [facility] [address] [id number] [place] [address]- 2304 Feb, [facility] [place] [facility] [address] [id number] [place] [address]- 9134 Feb, [facility] [place] [facility] [address] [id number] [place] [address]- 3066 Feb, [facility] [place] [facility] [address] [id number] [place] [address]- 0591 Feb, [facility] [place] [facility] [address] [id number] [place] [address]- 8389 Jan, [facility] [place] [facility] [address] [id number] [place] [address]- 2552 Jan, [facility] [place] [facility] [address] [id number] [place] [address]- 5207 Dec, [facility] [place] [facility] [address] [id number] [place] [address]- 6037 Dec, [facility] [place] [facility] [address] [id number] [place] [address]- 5311 Dec, [facility] [place] [facility] [address] [id number] [place] [address]- 4833 Dec, [facility] [place] [facility] [address] [id number] [place] [address]- 5533 Dec, [facility] [place] [facility] [address] [id number] [place] [address]- 2966 Nov, [facility] [place] [facility] [address] [id number] [place] [address]- 5797 Nov, [facility] [place] [facility] [address] [id number] [place] [address]- 9926 Nov, [facility] [place] [facility] [address] [id number] [place] [address]- 3700 Oct, [facility] [place] [facility] [address] [id number] [place] [address]- 3346 Oct, [facility] [place] [facility] [address] [id number] [place] [address]- 7911 Oct, [facility] [place] [facility] [address] [id number] [place] [address]- 2255 September, [facility] [place] [facility] [address] [id number] [place] [address] 2546 Aug, [facility] [address] [id number] [place] [address]- 6496 Aug, [facility] [address] [id number] [place] [address] 2546 Aug, [facility] [address] [id number] [place] [address]- 7983 Jul, [facility] [address] [id number] [place] [address]- 2105 Jul, [facility] [address] [id number] [place] [address]- 3027 Jul, [facility] [address] [id number] [place] [address]- 6156 Jul, [facility] [address] [id number] [place] [address]- 6826 Jul, [facility] [address] [id number] [place] [address]- 1860 Jun, [facility] [address] [id number] [place] [address]- 8407 Jun, [facility] [address] [id number] [place] [address]- 8745 May, [facility] [address] [id number] [place] [address]- 2546 May, [facility] [address] [id number] [place] [address]- 8948 Apr, [facility] [address] [id number] [place] [address]- 4491 Apr, [facility] [address] [id number] [place] [address] 2546 Mar, [facility] [address] [id number] [place] [address]- 3516 Mar, [facility] [place] [facility] [address] [id number] [place] [address]- 9476 Mar, [facility] [address] [id number] [place] [address]- 9536 Mar, [facility] [address] [id number] [place] [id number] Feb, [facility] [place] [facility] [address] [id number] [place] [address]- 0386 Feb, [facility] [place] [facility] [address] [id number] [place] [address]- 7584 Feb, [facility] [place] [facility] [address] [id number] [place] [address]- 8206 Feb, [facility] [place] [facility] [address] [id number] [place] [address]- 0722 Feb, [facility] [place] [facility] [address] [id number] [place] [address]- 8716 Feb, [facility] [place] [facility] [address] [id number] [place] [address]- 5190 Feb, [facility] [place] [facility] [address] [id number] [place] [address]- 7516 Jan, [facility] [place] [facility] [address] [id number] [place] [address]- 2546 Jan, [facility] [place] [facility] [address] [id number], [place] [address]- 2546 Dec, [facility] [place] [facility] [address] [id number] [place] [address]- 2546 Dec, [facility] [place] [facility] [address] [id number] [place] [address]- 2546 Nov, [facility] [place] [facility] [address] [id number] [place] [address]- 2546 Oct, [facility] [place] [facility] [address] [id number], [place] [address]- 8211 September, [facility] [address] [id number] [place] [address]- 1097 September, [facility] [place] [facility] [address] [id number] [place] [address]- 8816 September, [facility] [place] [facility] [address] [id number] [place] [address]- 6650 Aug, [facility] [place] [facility] [address] [id number] [place] [address]- 5216 May, [facility] [place] [facility] [address] [id number] [place] [address]- 6078 May, [facility] [place] [facility] [address] [id number] [place] [address] Apr, [facility] [place] [facility] [address] [id number] [place] [address] Apr, [facility] [place] [facility] [address] [id number] [place] [address]- 5499 Apr, [facility] [place] [facility] [address] [id number] [place] [address]- 7394 Apr, [facility] [place] [facility] [address] [id number] [place] [address]- 2596 Apr, [facility] [place] [facility] [address] [id number], [place] [address]- 7736 Mar, [facility] [place] [facility] [address] [id number] [place] [address]- 6010 Feb, [facility] [place] [facility] [address] [id number] [place] [address] Feb, [facility] [place] [facility] [address] [id number] [place] [address]- 9941 September, [facility] [place] [facility] [address] [id number] [place] [address]- 0271 Mar, [facility] [place] [facility] [address] [facility] [id number] [place] [address]- 8897 14 Feb, 2010 [facility] [address] [facility] [id number] [place] [address]- 0096 11 Feb, 2010 [facility] [address] [facility] [id number] [place] [address]- 0854 11 Feb, 2010 IMMUNIZATIONS No Known Immunizations SOCIAL HISTORY Never Assessed REASON FOR VISIT PT follow-up PLAN OF CARE Activity Details Follow Up 3 Week Reason:F/U PT VITAL SIGNS MEDICATIONS Unknown Medications RESULTS No Results PROCEDURES Procedure Date Ordered Result Body Site THERAPEUTIC EXERCISES Dec 27, 2016 INSTRUCTIONS MEDICATIONS ADMINISTERED No Known Medications [...] foot fracture Hospitalization History [facility] [place]- Back Pain 03/24/2017
--- OUTSIDE RECORDS SUMMARY | 2018-04-10 18:20 | XMS REPORT ---
Author Author KRYSTAL RAMIREZ [facility] Address Unknown Care Team Providers Care An/Syq 13 Nav/C2 Operator Name Role Phone KRYSTAL RAMIREZ Unavailable PROBLEMS Type Condition ICD9-CM Code LXO71-XF Code Onset Dates Condition Status SNOMED Code Problem Color blindness H53.50 Active 720622090 Problem Presbyopia of both eyes H52.4 Active 79365054 Problem Nuclear senile cataract of both eyes H25.13 Active 293911943 Problem Astigmatism of both eyes, unspecified type H52.203 Active 00030844 Problem Overactive bladder N32.81 Active 737657838 Problem Essential hypertension I10 Active 44463680 Problem Other chronic pain G89.29 Active 39346378 Problem Hypermetropia of both eyes H52.03 Active 66863616 Problem Alzheimer's disease, unspecified G30.9 Active 873867017 Problem Mild episode of recurrent major depressive disorder F33.0 Active 582999913 Problem 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 Active 548358922 Problem Major depressive disorder, single episode, mild F32.0 Active 47115046 Problem Chronic fatigue R53.82 Active 21876171 Problem Hydrocele, unspecified hydrocele type N43.3 Active 77729386 Problem Other acute pulmonary embolism without acute cor pulmonale I26.99 Active 731438599 Problem 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 Active 468636589 Problem Asymptomatic microscopic hematuria R31.21 Active 243219554 Problem Gait instability R26.81 Active 85603591 Problem PVD (peripheral vascular disease) I73.9 Active 200366144 Problem At high risk for falls Z91.81 Active [id number] Problem 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 Active 98233244 Problem Benign non-nodular prostatic hyperplasia with lower urinary tract symptoms N40.1 Active 496841654 Problem Alzheimers disease with late onset G30.1 Active 100907381 Problem Renal cyst, left Q61.00 Active 77171911 Problem Mixed hyperlipidemia E78.2 Active 294721634 Problem Anxiety F41.9 Active 29374924 Problem Transient cerebral ischemia, unspecified transient cerebral ischemia type G45.9 Active 724516131 Problem Primary insomnia F51.01 Active 178177422 ALLERGIES Substance Reaction Event Type Date Status Vicodin Unknown Drug Allergy May, Active Lovastatin had a reaction to a statin but is unsure of which statin it was Drug Allergy May, Active Codeine Sulfate Unknown Drug Allergy May, Active ENCOUNTERS Encounter Location Date Diagnosis [place] [address] [address]- [address] Dec, [place] [address] 41261- 5032 Nov, [place] [address] 61876- 5397 Oct, Edema leg R60.0 [place] [address] 59942- 1428 September, [place] [address] 40737- 2250 September, Alzheimers disease with late onset G30.1 and Mild episode of recurrent major depressive disorder F33.0 [place] [address] 55493- 3732 September, PVD (peripheral vascular disease) I73.9 ; Major depressive disorder, single episode, mild F32.0 ; Chronic fatigue R53.82 ; Weight gain R63.5 and Arthralgia, unspecified joint M25.50 [place] [address] [place] [id number] [place] [address] 90275- 6030 Aug, Acute low back pain, unspecified back pain laterality, with sciatica presence unspecified M54.5 [place] [address] 10752- 5990 Aug, Acute low back pain, unspecified back pain laterality, with sciatica presence unspecified M54.5 [place] [address] [place] [address]- 5550 Aug, Pain R52 [facility] [address] [place] [id number] [place] [address] 44593- 7646 Jul, [facility] [address] [place] [id number] [place] [address] 53207- 1671 13 Jun, 2017 [place] [address] 50862- 4998 07 Jun, 2017 Medicare annual wellness visit, initial Z00.00 ; Mixed hyperlipidemia E78.2 ; Essential hypertension I10 ; Anxiety F41.9 ; Alzheimers disease with late onset G30.1 ; 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 ; Overactive bladder N32.81 ; Primary insomnia F51.01 ; At high risk for falls Z91.81 and Encounter for immunization Z23 [place] [address] [place] [id number] [place] [address] 63976- 8251 May, [place] [address] 11487- 4809 May, Essential hypertension I10 and Transient cerebral ischemia, unspecified transient cerebral ischemia type G45.9 [facility] [address] [place] [id number] [place] [address] [id number] May, Dental examination Z01.20 and Dental caries K02.9 [place] [address] [place] [id number] [place] [address] 35210- 2292 May, [place] [address] [place] [id number] [place] [address] 53151- 5268 May, [facility] [address] [place] [id number] [place] [address] 34896- 5581 May, Alzheimers disease with late onset G30.1 [facility] [address] [place] [id number] [place] [address] 82813- 8324 Apr, [facility] [address] [place] [id number] [place] [address] 15232- 2386 Apr, Alzheimers disease with late onset G30.1 and Mild episode of recurrent major depressive disorder F33.0 [facility] [address] [place] [id number] [place] [address] 01941- 7150 Mar, Mild episode of recurrent major depressive disorder F33.0 [facility] [address] [place] [id number] [place] [address] 80528- 8310 Mar, Mixed hyperlipidemia E78.2 ; Essential hypertension I10 ; Asymptomatic microscopic hematuria R31.21 and Renal cyst, left Q61.00 [facility] [address] [place] [id number] [place] [address] 11654- 3701 Mar, [facility] [address] 18826- 2822 Feb, Encounter for immunization Z23 [facility] [address] 43232- 3848 Feb, [facility] [address] 63700- 6705 Feb, [facility] [address] [place] [id number] [place] [address] 39734 -3823 Feb, ANUG (acute necrotizing ulcerative gingivitis) A69.1 [facility] [address] [place] [id number] [place] [address] 43534- 2035 Feb, [facility] [address] [place] [id number] [place] [address] 49033- 4352 Feb, Mild episode of recurrent major depressive disorder F33.0 [facility] [address] [place] [id number] [place] [address] 47277- 3363 Feb, Alzheimers disease with late onset G30.1 and Mild episode of recurrent major depressive disorder F33.0 [facility] [address] [place] [id number] [place] [address] 87709- 5427 Jan, Alzheimers disease with late onset G30.1 [facility] [address] [place] [id number] [place] [address] 84522- 2935 Jan, Gait instability R26.81 [facility] [address] [id number] [place] [address] Jan [facility] [place] [address] [id number] [place] [address] Dec [facility] [address], [place] [address]- 5819 Dec, [facility] [address] [place] [id number] [place] [address] 17412- 6778 Dec, [facility] [id number] [place] [address] 50482- 6250 Dec, Essential hypertension I10 ; Transient cerebral ischemia, unspecified transient cerebral ischemia type G45.9 and Anxiety F41.9 [facility] [address] [place] [id number] [place] [address] 52544- 3992 Dec, Gait instability R26.81 [facility] [address] [place] [id number] [place] [address] 68106- 8835 Dec, [facility] [address] [place] [id number] [place] [address] 34809- 1652 Nov, Alzheimers disease with late onset G30.1 and Mild episode of recurrent major depressive disorder F33.0 [facility] [address], [place] [address]- 4857 Nov, [facility] [address] [place] [id number] [place] [address] 05785- 4842 Nov, Gait instability R26.81 [facility] [address], [place] [address]- 0032 Nov, Anxiety F41.9 [facility] [address] [place] [id number] [place] [address] 97696- 6818 Nov, [facility] [id number] [place] [address] 16820- 1000 Nov, [facility] [address] [place] [id number] [place] [address] 68349- 2166 Oct, Gait instability R26.81 [facility] [address] [place] [id number] [place] [address] 63851- 2874 14 Oct, 2016 Anxiety F41.9 [facility] [address] [place] [id number] [place] [address] 86373- 0243 13 Oct, 2016 Gait instability R26.81 [facility] [address] [place] [id number] [place] [address] 77322- 1200 Oct, Gait instability R26.81 [facility] [address] [place] [id number] [place] [address] 11087- 4653 Oct, [facility] [address] [place] [id number] [place] [address] 76812- 6405 Oct, Anxiety F41.9 ; Chronic 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 use Z79.899 ; Encounter for immunization Z23 and Transient cerebral ischemia, unspecified transient cerebral ischemia type G45.9 [facility] [address] [place] [id number] [place] [address] 19822- 6327 September, [facility] [address] [place] [id number] [place] [address] 48367- 1875 September, Gait instability R26.81 [facility] [address] [place] [id number] [place] [address] 55218- 8495 September, [facility] [address] [place] [id number] [place] [address] 28177- 0788 September, [facility] [address] [place] [id number] [place] [address] 95336- 2876 September, [facility] [address] [place] [id number] [place] [address] 92616- 3638 September, Alzheimers disease with late onset G30.1 and Mild episode of recurrent major depressive disorder F33.0 [facility] [address] [place] [id number] [address]- 2427 September, [facility] [address] [place] [id number] [address]- 4591 September, [facility] [address], [place] [address]- 3124 September, [facility] [address], [place] [address]- 3353 September, Mild episode of recurrent major depressive disorder F33.0 [facility] [address], [place] [address]- 0907 Aug, Mild episode of recurrent major depressive disorder F33.0 ; Alzheimers disease with late onset G30.1 ; Other acute pulmonary embolism without acute cor pulmonale I26.99 and Cough R05 [facility] [address], [place] [address]- 8666 Aug, [facility] [address], [place] [address]- 2327 Aug, Gait instability R26.81 [facility] [address], [place] [address]- 6179 Aug, Alzheimers disease with late onset G30.1 and Mild episode of recurrent major depressive disorder F33.0 [facility] [address], [place] [address]- 8033 Aug, [facility] [address], [place] [address]- 8995 Aug, 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 [facility] [address], [place] [address]- 2457 Jul, Alzheimers disease with late onset G30.1 [facility] [address], [place] [address]- 5567 Jul, [facility] [address], [place] [address]- 0144 Jul, 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 [facility] [address] [place] [id number] [place] [address] 46620- 7142 Jul, Anxiety F41.9 ; Alzheimers disease with late onset G30.1 and Transient cerebral ischemia, unspecified transient cerebral ischemia type G45.9 [facility] [address] [place] [id number] [place] [address] 12048- 9668 Jun, Essential hypertension I10 [facility] [address] [place] [id number] [place] [address] 99341- 7358 Jun, [facility] [address] [place] [id number] [place] [address] 29741- 9395 Jun, [facility] [address] [place] [id number] [place] [address] 13819- 7555 Jun, [facility] [address] [place] [id number] [place] [address] 48520- 9327 Jun, Essential hypertension I10 ; Benign non-nodular prostatic hyperplasia with lower urinary tract symptoms N40.1 ; Anxiety F41.9 ; Pain in right knee M25.561 ; Pain in left knee M25.562 and Other chronic pain G89.29 [facility] [address] [place] [id number] [place] [address] 27053- 1443 May, [facility] [address] [place] [id number] [place] [address] 43764- 0929 May, [facility] [address] [place] [id number] [place] [address] 92420- 0917 May, [facility] [address] [place] [id number] [place] [address] 31966- 1002 Apr, [facility] [address] [place] [id number] [place] [address] 42967- 3007 Mar, [facility] [address] [place] [id number] [place] [address] 07422- 6903 Mar, Mixed hyperlipidemia E78.2 and Essential hypertension I10 [facility] [address] [place] [id number] [place] [address] 90960- 9412 Feb, [facility] [address] [place] [address] 89992- 7158 Feb, Ingrown nail L60.0 and Onychomycosis B35.1 [facility] [address] [place] [id number] [place] [address] 98760- 9642 Feb, Paronychia, left L03.012 [facility] [address] [place] [id number] [place] [address] 15990- 4694 Jan, [facility] [address] [place] [id number] [place] [address] 39565- 0559 Jan, Cramps of right lower extremity R25.2 and Mixed hyperlipidemia E78.2 [facility] [address] [place] [id number] [place] [address] 84050- 8771 Jan, Cramps of right lower extremity R25.2 ; Essential hypertension I10 ; Mixed hyperlipidemia E78.2 ; Chronic 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 use Z79.899 and Claudication I73.9 [facility] [address] [place] [id number] [place] [address] 79911- 1026 Jan, Right leg pain M79.604 [facility] [address] [place] [id number] [place] [address] 83051- 0994 Dec, [facility] [address] [place] [id number] [place] [address] 40582- 1409 Nov, [facility] [address] [place] [id number] [place] [address] 75330- 2685 Nov, [facility] [address] [id number] [place] [address] 85379- 4886 Nov, [facility] [address] [place] [id number] [place] [address] 62608- 3550 Nov, Dermatofibroma D23.9 [facility] [address] [place] [address] 75480- 3742 Nov, [facility] [address], [place] [address]- 8817 Oct, [facility] [address] [id number] [place] [address] 19465- 3256 Oct, [facility] [address] [id number] [place] [address] 94304- 6897 September, Benign non-nodular prostatic hyperplasia with lower urinary tract symptoms N40.1 ; Essential hypertension I10 ; Overactive bladder N32.81 and Fatigue, unspecified type R53.83 [facility] [address] [id number] [place] [address] 93524- 3556 September, [facility] [id number] [place] [address] 15352- 5825 September, [facility] [address] [id number] [place] [address] 24729- 6397 Aug, [facility] [address] [place] [id number] [place] [address] 71412- 9883 Jul, [facility] [address] [id number] [place] [address] 29506- 4608 Jul, Pelvic pain R10.2 ; Jock itch B35.6 ; Essential hypertension I10 and Hydrocele, unspecified hydrocele type N43.3 [facility] [address], [place] [address]- 0502 Jun, [facility] [address], [place] [address]- 8288 Jun, [facility] [address], [place] [address]- 3233 Jun, Benign non-nodular prostatic hyperplasia with lower urinary tract symptoms N40.1 [facility] [address] [place] [address] 89383- 6731 Jun, Benign non-nodular prostatic hyperplasia with lower urinary tract symptoms N40.1 [facility] [address] [id number] [place] [address] 21738- 9060 Jun, [facility] [id number] [place] [address] 72585- 0471 May, [facility] [id number] [place] [address] 56083- 1720 Apr, [facility] [id number] [place] [address] 68624- 2817 Apr, [facility] [id number] [place] [address] 72551- 0468 Apr, Other acute pulmonary embolism without acute cor pulmonale I26.99 ; Anxiety F41.9 ; 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 and 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 [facility] [id number] [place] [address] 54421- 6082 Apr, [facility] [id number] [place] [address] 40858- 6749 Apr, [facility] [id number] [place] [address] 03137- 3166 Mar, [facility] [id number] [place] [address] 18520- 4989 Mar, [facility] [id number] [place] [address] 88541- 8262 Feb, Cough R05 [facility] [id number] [place] [address] 96732- 8573 Feb, [facility] [id number] [place] [address] 55550- 4762 Feb, Encounter for immunization Z23 [facility] [id number] [place] [address] 79471- 9172 Feb, Other and unspecified hyperlipidemia 272.4 [facility] [id number] [place] [address] 67417- 1448 Jan, [facility] [address] [place] [address]- 1464 Jan, TIA (transient ischemic attack) 435.9 [facility] [id number] [place] [address] 34697- 4069 Dec, [facility] [id number] [address]- 8641 Dec, [facility] [id number] [place] [address] 49094- 6739 Dec, [facility] [id number] [place] [address] 78691- 1853 Nov, [facility] [id number] [place] [address] 53563- 2079 Oct, Chronic cough 786.2 [facility] [id number] [place] [address] 55169- 5931 Oct, [facility] [id number] [place] [address] 02697- 3354 Oct, [facility] [id number] [place] [address] 97075- 3984 Oct, [facility] [id number] [place] [address] 83642- 9319 Oct, [facility] [address], [place] [address]- 9234 Oct, Chronic cough 786.2 [facility] [id number] [place] [address] 25081- 5186 Oct, Cough 786.2 ; Hypertension 401.9 ; BPH (benign prostatic hyperplasia) 600.00 ; Other and unspecified hyperlipidemia 272.4 and Hydrocele 603.9 [facility] [address] 2680 Oct, [facility] [address], [place] [address]- 4639 September, [facility] [address] [address] [facility] [place] [address]- 6909 14 Aug, 2014 [facility] [place] [facility] [address] [id number] [place] [address]- 0068 13 Aug, 2014 [facility] [place] [facility] [address] [facility] [id number] [place] [address]- 5796 Jul, [facility] [place] [facility] [address] [facility] [id number] [place] [address]- 7367 Jul, [facility] [place] [facility] [address] [facility] [id number] [place] [address]- 3324 Jul, [facility] [place] [facility] [address] [facility] [id number] [place] [address]- 9467 Jul, [facility] [place] [facility] [address] [facility] [id number] [place] [address]- 9020 Jul, [facility] [place] [facility] [id number] [place] [address]- 3357 Jun, 2014 [facility] [place] [facility] [address] [facility] [id number] [place] [address]- 7643 Jun, 2014 [facility] [place] [facility] [address] [place] [address]- 5035 Jun, 2014 [facility] [place] [facility] [id number] [place] [address]- 8548 Jun, 2014 [facility] [place] [facility] [address] [place] [address]- 8944 Jun, 2014 [facility] [place] [facility] [address] [facility] [id number] [address]- 2547 Jun, 2014 [facility] [place] [facility] [address] [facility] [id number] [place] 1516 Jun, 2014 [facility] [place] [facility] [address] [facility] [id number][place] [address] Jun, 2014 [facility] [place] [facility] [address] [id number], [place] [address] May, [facility] [place] [facility] [address] [id number] [place] [address] May, [facility] [place] [facility] [address] [id number] [place] [address] May, [facility] [place] [facility] [address] [id number] [place] [address] May, [facility] [place] [facility] [address] [id number] [place] [address] May, [facility] [place] [facility] [address] [id number] [place] [address] May, [facility] [place] [facility] [address] [id number] [place] [address] May, [facility] [place] [facility] [address] [id number] [place] [address] May, [facility] [place] [facility] [address] [id number], [place] [address] May, [facility] [place] [facility] [address] [id number] [place] [address] May, [facility] [place] [facility] [address] [id number] [place] [address] Apr, [facility] [place] [facility] [address] [id number], [place] [address] Apr, [facility] [place] [facility] [address] [id number], [place] [address] Apr, [facility] [place] [facility] [address] [id number] [place] [address] Apr, [facility] [place] [facility] [address] [id number], [place] [address] Apr, [facility] [place] [facility] [address] [id number] [place] [address] Apr, [facility] [place] [facility] [address] [id number] [place] [address] Apr, [facility] [place] [facility] [address] [id number] [place] [address] Apr, [facility] [place] [facility] [address] [id number] [place] [address] Mar, [facility] [place] [facility] [address] [id number] [place] [address] Mar, [facility] [place] [facility] [address] [id number] [place] [address] Mar, [facility] [place] [facility] [address] [id number] [place] [address] Mar, [facility] [place] [facility] [address] [id number] [place] [address] Mar, [facility] [place] [facility] [address] [id number] [place] [address] Mar, [facility] [place] [facility] [address] [id number] [place] [address] Mar, [facility] [place] [facility] [address] [id number] [place] [address] Mar, [facility] [place] [facility] [address] [facility] [id number] [place] [address] Mar, [facility] [place] [facility] [address] [id number] [place] [address] 1991 Mar, [facility] [place] [facility] [address] [id number] [place] [address] Feb, [facility] [place] [facility] [address] [id number] [place] [address] Feb, [facility] [place] [facility] [address] [id number] [place] [address] 8017 Feb, [facility] [place] [facility] [address] [id number] [place] [address] 1000 Feb, [facility] [place] [facility] [address] [id number] [place] [address]- 8566 14 Feb, 2014 [facility] [place] [facility] [address] [id number] [place] [address] 0283 14 Feb, 2014 [facility] [place] [facility] [address] [id number] [place] [address] 30 Jan, 2013 [facility] [place] [facility] [address] [id number] [place] [address]- 1346 30 Jan, 2013 [facility] [place] [facility] [address] [id number] [place] [address]- 4223 24 Jan, 2013 [facility] [place] [facility] [address] [id number] [place] [address]- 5790 24 Jan, 2013 [facility] [place] [facility] [address] [id number] [place] [address]- 2848 19 Jan, 2013 [facility] [place] [facility] [address] [id number] [place] [address]- 5473 19 Jan, 2013 [facility] [place] [facility] [address] [id number] [place] [address]- 5253 16 Jan, 2013 [facility] [place] [facility] [address] [id number] [place] [address]- 2243 16 Jan, 2013 [facility] [place] [facility] [address] [id number] [place] [address]- 0688 16 Jan, 2013 [facility] [place] [facility] [address] [id number] [place] [address]- 5176 16 Jan, 2013 [facility] [place] [facility] [address] [id number] [place] [address]- 2543 12 Jan, 2013 [facility] [place] [facility] [address] [id number] [place] [address]- 2544 12 Jan, 2013 [facility] [place] [facility] [address] [id number] [place] [address]- 3413 25 Dec, 2013 [facility] [place] [facility] [address] [id number] [place] [address] 5311 Dec, [facility] [place] [facility] [address] [id number] [place] [address]- [address] Dec, [facility] [place] [facility] [address] [id number] [place] [address]- 9128 Dec, [facility] [place] [facility] [address] [id number] [place] [address]- 9665 Dec, [facility] [place] [facility] [address] [id number] [place] [address]- 1331 Dec, [facility] [place] [facility] [address] [id number] [place] [address] 4759 Nov, [facility] [place] [facility] [address] [id number] [place] [address]- 4266 Nov, [facility] [place] [facility] [address] [id number] [place] [address]- 9936 Nov, [facility] [place] [facility] [address] [id number] [place] [address]- 6041 Nov, [facility] [place] [facility] [address] [id number] [place] [address]- 6514 Nov, [facility] [place] [facility] [address] [id number] [place] [address]- 9638 Nov, [facility] [place] [facility] [address] [id number] [place] [address]- 2823 Nov, [facility] [place] [facility] [address] [id number] [place] [address]- 0500 Nov, [facility] [place] [facility] [address] [id number] [place] [address]- 5256 Oct, [facility] [place] [facility] [address] [id number] [place] [address]- 5304 Oct, [facility] [place] [facility] [address] [id number] [place] [address]- 0318 Oct, [facility] [place] [facility] [address] [id number] [place] [address]- 5657 Oct, [facility] [address] [id number] [place] [address] 1312 September, [facility] [place] [facility] [address] [id number] [place] [address] 9216 September, [facility] [address] [id number] [place] [address]- 2530 September, [facility] [address] [id number] [place] [address]- 4459 September, [facility] [address] [id number] [place] [address] September, [facility] [address] [id number] [place] [address]- 7845 September, [facility] [address] [id number] [place] [address]- 0778 Aug, [facility] [address] [id number] [place] [address]- 3802 Aug, [facility] [place] [facility] [address] [id number] [place] [address]- 3608 Aug, [facility] [address] [id number] [place] [address]- 8486 Aug, [facility] [place] [facility] [address] [id number] [place] [address]- 8524 Aug, [facility] [place] [facility] [address] [id number] [place] [address]- 9953 Aug, [facility] [place] [facility] [address] [id number] [place] [address] Aug, [facility] [place] [facility] [address] [id number] [place] [address] Aug, [facility] [place] [facility] [address] [id number] [place] [address] Jul, [facility] [place] [facility] [address] [id number] [place] [address]- 8336 Jul, [facility] [place] [facility] [address] [id number] [place] [address]- 8913 Jun, [facility] [place] [facility] [address] [id number] [place] [address]- 7543 Jun, [facility] [place] [facility] [address] [id number] [place] [address]- 3785 Jun, [facility] [place] [facility] [address] [id number] [place] [address]- 3935 Jun, [facility] [place] [facility] [address] [id number] [place] [address]- 5808 Jun, [facility] [place] [facility] [address] [id number] [place] [address]- 4942 May, [facility] [place] [facility] [address] [id number] [place] [address]- 8015 May, [facility] [place] [facility] [address] [id number] [place] [address]- 7944 May, [facility] [place] [facility] [address] [id number] [place] [address]- 1480 May, [facility] [place] [facility] [address] [id number], [place] [address]- 7937 Apr, [facility] [place] [facility] [address] [id number], [place] [address]- 0698 Apr, [facility] [place] [facility] [address] [id number] [place] [address]- 9969 Mar, [facility] [place] [facility] [address] [id number] [place] [address]- 5969 Mar, [facility] [place] [facility] [address] [id number] [place] [address]- 3892 Feb, [facility] [place] [facility] [address] [id number] [place] [address]- 8585 Feb, [facility] [address] [id number] [place] [address]- 6369 Feb, [facility] [place] [facility] [address] [id number] [place] [address]- 7382 Feb, [facility] [address] [id number] [place] [address]- 8900 Feb, [facility] [address] [id number] [place] [address]- 2280 Feb, [facility] [address] [id number] [place] [address]- 7613 Feb, [facility] [address] [id number] [place] [address]- 2051 Jan, [facility] [address] [id number] [place] [address]- 7923 Jan, [facility] [address] [id number] [place] [address]- 1850 Dec, [facility] [place] [facility] [address] [id number] [place] [address]- 9223 Dec, [facility] [address] [id number] [place] [address]- 4711 Dec, [facility] [place] [facility] [address] [id number] [place] [address]- 1851 Dec, [facility] [place] [facility] [address] [id number] [place] [address]- 2606 Dec, [facility] [place] [facility] [address] [id number] [place] [address]- 1177 Nov, [facility] [place] [facility] [address] [id number] [place] [address]- 2547 Nov, [facility] [place] [facility] [address] [id number] [place] [address]- 1474 Nov, [facility] [place] [facility] [address] [id number] [place] [address]- 2003 Oct, [facility] [place] [facility] [address] [id number] [place] [address]- 5371 Oct, [facility] [place] [facility] [address] [id number] [place] [address]- 0663 Oct, [facility] [place] [facility] [address] [id number] [place] [address]- 9383 September, [facility] [address] [id number] [place] [address]- 7735 Aug, [facility] [place] [facility] [address] [id number] [place] [address]- 0103 Aug, [facility] [place] [facility] [address] [id number] [place] [address]- 0438 Aug, [facility] [place] [facility] [address] [id number] [place] [address]- 8187 Jul, [facility] [place] [facility] [address] [id number] [place] [address]- 3215 Jul, [facility] [place] [facility] [address] [id number] [place] [address]- 5694 Jul, [facility] [place] [facility] [address] [id number] [place] [address]- 4407 Jul, [facility] [place] [facility] [address] [id number], [place] [address]- 6128 Jul, [facility] [place] [facility] [address] [id number] [place] [address]- 7437 Jun, [facility] [place] [facility] [address] [id number] [place] [address]- 2196 Jun, [facility] [place] [facility] [address] [id number], [place] [address]- 0426 May, [facility] [place] [facility] [address] [id number], [place] [address] 2546 May, [facility] [place] [facility] [address] [id number] [place] [address]- 6116 Apr, [facility] [place] [facility] [address] [facility] [id number], [place] [address]- 2546 Apr, [facility] [place] [facility] [address] [id number] [place] [address]- 2546 Mar, [facility] [place] [facility] [address] [facility] [id number], [place] [address] 2546 Mar, [facility] [place] [facility] [address] [id number], [place] [address]- 4416 Mar, [facility] [place] [facility] [address] [id number] [place] [address]- 2546 Mar, [facility] [id number] [id number] Feb, [facility] [place] [facility] [address] [id number], [place] [address]- 0918 Feb, [facility] [place] [facility] [address] [id number], [place] [address]- 0876 Feb, [facility] [place] [facility] [address] [id number], [place] [address]- 5826 Feb, [facility] [place] [facility] [address] [id number], [place] [address]- 1746 Feb, [facility] [place] [facility] [address] [id number], [place] [address]- 2546 Feb, [facility] [place] [facility] [address] [id number], [place] [address]- 2546 Feb, [facility] [place] [facility] [address] [facility] [id number], [place] [address]- 2546 Jan, [facility] [place] [facility] [address] [facility] [id number], [place] [address]- 2546 Jan, [facility] [place] [facility] [address] [id number] [place] [address] 2548 Dec, [facility] [address] [id number] [place] [address]- 1639 Dec, [facility] [address] [id number] [place] [address]- 4778 Nov, [facility] [address] [id number] [place] [address]- 5512 Oct, [facility] [address] [id number] [place] [address] 2546 September, [facility] [address] [id number] [place] [address]- 8433 September, [facility] [address] [id number] [place] [address]- 1376 September, [facility] [address] [id number] [place] [address]- 7149 Aug, [facility] [address] [id number] [place] [address]- 8371 May, [facility] [address] [id number] [place] [address]- 8827 May, [facility] [address] [id number] [place] [address]- 4614 Apr, [facility] [address] [id number] [place] [address]- 2713 Apr, [facility] [address] [id number] [place] [address]- 0563 Apr, [facility] [address] [id number] [place] [address]- 4733 Apr, [facility] [address] [id number] [place] [address]- 2546 Apr, [facility] [address] [id number] [place] [address]- 6826 Mar, [facility] [address] [facility] [id number], [place] [address]- 1746 Feb, [facility] [address] [id number], [place] [address]- 5631 Feb, [facility] [address] [id number], [place] [address]- 4100 September, [facility] [id number], [place] [address]- 7840 Mar, [facility] [address] [id number], [place] [address]- 6820 Feb, [facility] [id number], [place] [address]- 8497 Feb, [facility] [address] [id number], [place] [address]- 3377 Feb, IMMUNIZATIONS No Known Immunizations SOCIAL HISTORY Never Assessed REASON FOR VISIT CLIF PLAN OF CARE Activity Details Follow Up prn Reason:[employer] SIGNS Height 65 in 2017-06-08 Blood pressure systolic 124 mmHg 2017-06-08 Blood pressure diastolic 83 mmHg 2017-06-08 MEDICATIONS Medication Instructions Dosage Frequency Start Date End Date Duration Status Aricept 5 mg Orally Once a day 1 tablet at bedtime 24h 30 days Active Trazodone HCl 150 MG Orally Once a day 1 tablet at bedtime 24h 30 days Active Flomax 0.4 MG Orally Once a day 1 capsule 30 minutes after the same meal each day 24h 30 Active Proscar 5 MG TAKE 1 TABLET BY MOUTH ONCE DAILY. 30 Active Namenda 10 mg Orally Twice a day 1 tablet 12h 30 days Active Eliquis 5 mg Orally 2 times a day 1 tablet 12h Active Proventil Active TraZODone HCl ER Active Symbicort Active Pravastatin Sodium Active Cymbalta 60 mg Orally Once a day 1 capsule 24h 30 Active Aspirin 81 MG Orally Once a day 1 tablet 24h Active Oxybutynin Active Amlodipine Besylate 10 MG TAKE ONE TABLET BY MOUTH ONCE DAILY Active Abilify 5 mg Orally Once a day 1 tablet 24h 30 day(s) Active Advair Diskus Active Oxybutynin Chloride 5 MG TAKE ONE TABLET BY MOUTH TWICE DAILY 30 Active Fish Oil Active RESULTS No Results PROCEDURES Procedure Date Ordered Result Body Site LTD ORAL EVALUATION - PROBLEM FOCUS Jun 08, 2017 INTRAORL-PERIAPICAL 1 FILM [id number] Jun 08, 2017 EXTRAC ERUPTED TOOTH/EXPOSED ROOT Jun 08, 2017 INSTRUCTIONS MEDICATIONS ADMINISTERED No Known Medications [...] foot fracture Hospitalization History [facility] [place]- Back Pain 03/24/2017
--- OUTSIDE RECORDS SUMMARY | 2018-04-10 18:21 | XMS REPORT ---
Author Author GELY SHAY Organization [facility] Address [address] [place] [address] Care Team Providers Care Director Digital Advertising Name Role Phone GELY SHAY Unavailable PROBLEMS Type Condition ICD9-CM Code CZE47-WG Code Onset Dates Condition Status SNOMED Code Problem Color blindness H53.50 Active 232085203 Problem Presbyopia of both eyes H52.4 Active 69003892 Problem Nuclear senile cataract of both eyes H25.13 Active 585855213 Problem Astigmatism of both eyes, unspecified type H52.203 Active 18377762 Problem Overactive bladder N32.81 Active 222567292 Problem Essential hypertension I10 Active 33170360 Problem Other chronic pain G89.29 Active 91510191 Problem Hypermetropia of both eyes H52.03 Active 83104094 Problem Alzheimer's disease, unspecified G30.9 Active 653559108 Problem Mild episode of recurrent major depressive disorder F33.0 Active 144506360 Problem 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 Active 921775800 Problem Major depressive disorder, single episode, mild F32.0 Active 11697812 Problem Chronic fatigue R53.82 Active 66711809 Problem Hydrocele, unspecified hydrocele type N43.3 Active 28875752 Problem Other acute pulmonary embolism without acute cor pulmonale I26.99 Active 806788091 Problem 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 Active 886521511 Problem Asymptomatic microscopic hematuria R31.21 Active 559757172 Problem Gait instability R26.81 Active 05579664 Problem PVD (peripheral vascular disease) I73.9 Active 504787087 Problem At high risk for falls Z91.81 Active [id number] Problem 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 Active 28725616 Problem Benign non-nodular prostatic hyperplasia with lower urinary tract symptoms N40.1 Active 754489695 Problem Alzheimers disease with late onset G30.1 Active 501850970 Problem Renal cyst, left Q61.00 Active 58314713 Problem Mixed hyperlipidemia E78.2 Active 509288615 Problem Anxiety F41.9 Active 58969176 Problem Transient cerebral ischemia, unspecified transient cerebral ischemia type G45.9 Active 930875975 Problem Primary insomnia F51.01 Active 871914675 ALLERGIES No Information ENCOUNTERS Encounter Location Date Diagnosis [facility] [id number] [place] [address] 90694- 6754 Dec, [facility] [address] 52885- 4536 Nov, [facility] [address] 24337- 3703 Oct, Edema leg R60.0 [facility] [address] 59239- 1113 September, [facility] [address] 82040- 9149 September, Alzheimers disease with late onset G30.1 and Mild episode of recurrent major depressive disorder F33.0 [facility] [address] 31237- 7459 September, PVD (peripheral vascular disease) I73.9 ; Major depressive disorder, single episode, mild F32.0 ; Chronic fatigue R53.82 ; Weight gain R63.5 and Arthralgia, unspecified joint M25.50 [facility] [id number] [place] [address] 17382- 9343 Aug, Acute low back pain, unspecified back pain laterality, with sciatica presence unspecified M54.5 [facility] [id number] [place] [address] 99858- 2623 Aug, Acute low back pain, unspecified back pain laterality, with sciatica presence unspecified M54.5 [facility] [id number] [place] [address] 40404- 3208 Aug, Pain R52 [facility] [address] [place] [address]- 8164 Jul, [facility] [id number] [place] [address] 75620- 8908 Jun, [facility] [id number] [place] [address] 66365- 5349 07 Jun, 2017 Medicare annual wellness visit, initial Z00.00 ; Mixed hyperlipidemia E78.2 ; Essential hypertension I10 ; Anxiety F41.9 ; Alzheimers disease with late onset G30.1 ; 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 ; Overactive bladder N32.81 ; Primary insomnia F51.01 ; At high risk for falls Z91.81 and Encounter for immunization Z23 [facility] [id number] [place] [address] 57333- 4236 May, [facility] [address] 66285- 4821 May, Essential hypertension I10 and Transient cerebral ischemia, unspecified transient cerebral ischemia type G45.9 [facility] [id number] [place] [address] [id number] May, Dental examination Z01.20 and Dental caries K02.9 [facility] [id number] [place] [address] 74683- 9748 May, [facility] [id number] [place] [address] 78392- 0638 May, [facility] [id number] [place] [address] 61893- 3220 May, Alzheimers disease with late onset G30.1 [facility] [id number] [place] [address] 21089- 9273 Apr, [facility] [address] 00111- 2894 Apr, Alzheimers disease with late onset G30.1 and Mild episode of recurrent major depressive disorder F33.0 [facility] [address] [place] [address]- 7923 Mar, Mild episode of recurrent major depressive disorder F33.0 [facility] [address] 42734- 5908 Mar, Mixed hyperlipidemia E78.2 ; Essential hypertension I10 ; Asymptomatic microscopic hematuria R31.21 and Renal cyst, left Q61.00 [facility] [address] 21636- 6174 Mar, [facility] [address] 38249- 8748 Feb, Encounter for immunization Z23 [facility] [address] 62991- 6614 Feb, [facility] [address] 97338- 4909 Feb, [facility] [address] 19324 -7433 Feb, ANUG (acute necrotizing ulcerative gingivitis) A69.1 [facility] [id number] [place] [address] 92235- 3700 Feb, [facility] [id number] [place] [address] 65569- 0117 Feb, Mild episode of recurrent major depressive disorder F33.0 [facility] [id number] [place] [address] 82620- 6055 Feb, Alzheimers disease with late onset G30.1 and Mild episode of recurrent major depressive disorder F33.0 [facility] [id number] [place] [address] 70026- 0186 Jan, Alzheimers disease with late onset G30.1 [facility] [id number] [place] [address] 66702- 9716 18 Jan, 2017 Gait instability R26.81 [facility] [place] [id number] [address] Jan [facility] [address] [id number] [place] [address] Dec [facility] [id number] [address]- 4962 Dec, [facility] [id number] [address] 1961 Dec, [facility] [id number] [place] [address] 39241- 5810 Dec, Essential hypertension I10 ; Transient cerebral ischemia, unspecified transient cerebral ischemia type G45.9 and Anxiety F41.9 [facility] [id number] [place] [address] 77111- 9054 Dec, Gait instability R26.81 [facility] [id number] [place] [address] 92060- 6771 Dec, [facility] [id number] [place] [address] 77193- 4640 Nov, Alzheimers disease with late onset G30.1 and Mild episode of recurrent major depressive disorder F33.0 [facility] [address] [address]- 7778 Nov, [facility] [address] [address]- 9815 Nov, Gait instability R26.81 [facility] [id number] [place] [address] 90811- 4729 Nov, Anxiety F41.9 [facility] [address] [address]- 6966 Nov, [facility] [address] [address]- 0350 Nov, [facility] [address] [address]- 1784 Oct, Gait instability R26.81 [facility] [id number] [place] [address] 32061- 6911 14 Oct, 2016 Anxiety F41.9 [facility] [id number] [place] [address] 12396- 5805 13 Oct, 2016 Gait instability R26.81 [facility] [id number] [place] [address] 41185- 9654 Oct, Gait instability R26.81 [facility] [id number] [place] [address] 61082- 2004 Oct, [facility] [id number] [place] [address] 70202- 8194 Oct, Anxiety F41.9 ; Chronic 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 use Z79.899 ; Encounter for immunization Z23 and Transient cerebral ischemia, unspecified transient cerebral ischemia type G45.9 [facility] [id number] [place] [address] 95587- 3798 September, [facility] [id number] [place] [address] 20148- 4030 September, Gait instability R26.81 [facility] [id number] [place] [address] 84482- 1800 September, [facility] [id number] [place] [address] 98748- 6572 September, [facility] [id number] [place] [address] 90826- 6665 September, [facility] [id number] [place] [address] 20601- 2499 September, Alzheimers disease with late onset G30.1 and Mild episode of recurrent major depressive disorder F33.0 [facility] [id number] [place] [address] 35873- 2320 September, [facility] [id number] [place] [address] 08511- 2413 September, [facility] [id number] [address]- 4779 September, [facility] [id number] [address]- 5313 September, Mild episode of recurrent major depressive disorder F33.0 [facility] [id number] [address]- 1116 Aug, Mild episode of recurrent major depressive disorder F33.0 ; Alzheimers disease with late onset G30.1 ; Other acute pulmonary embolism without acute cor pulmonale I26.99 and Cough R05 [facility] [address] [address]- 7133 Aug, [facility] [id number] [place] [address] 31258- 8821 Aug, Gait instability R26.81 [facility] [address] [address]- 3661 Aug, Alzheimers disease with late onset G30.1 and Mild episode of recurrent major depressive disorder F33.0 [facility] [address] [address]- 9627 Aug, [facility] [id number] [address]- 3871 Aug, 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 [facility] [address] [address]- 7926 Jul, Alzheimers disease with late onset G30.1 [facility] [id number] [address]- 9422 Jul, [facility] [id number] [address]- 1582 Jul, 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 [facility] [id number] [address]- 9515 Jul, Anxiety F41.9 ; Alzheimers disease with late onset G30.1 and Transient cerebral ischemia, unspecified transient cerebral ischemia type G45.9 [facility] [id number] [place] [address] 08403- 8187 Jun, Essential hypertension I10 [facility] [id number] [place] [address] 38116- 3220 Jun, [facility] [id number] [place] [address] 89080- 7000 Jun, [facility] [id number] [place] [address] 84558- 8939 Jun, [facility] [id number] [place] [address] 09290- 0141 Jun, Essential hypertension I10 ; Benign non-nodular prostatic hyperplasia with lower urinary tract symptoms N40.1 ; Anxiety F41.9 ; Pain in right knee M25.561 ; Pain in left knee M25.562 and Other chronic pain G89.29 [facility] [id number] [place] [address] 08336- 9808 May, [facility] [id number] [place] [address] 59630- 7737 May, [facility] [id number] [place] [address] 40472- 2565 May, [facility] [id number] [place] [address] 75112- 2969 Apr, [facility] [id number] [place] [address] 90059- 7728 Mar, [facility] [id number] [place] [address] 22393- 6420 Mar, Mixed hyperlipidemia E78.2 and Essential hypertension I10 [facility] [id number] [place] [address] 98438- 3838 Feb, [facility] [id number] [place] [address] 44112- 8880 Feb, Ingrown nail L60.0 and Onychomycosis B35.1 [facility] [id number] [place] [address] 19661- 0753 Feb, Paronychia, left L03.012 [facility] [id number] [place] [address] 64133- 0034 Jan, [facility] [address] 08877- 1592 Jan, Cramps of right lower extremity R25.2 and Mixed hyperlipidemia E78.2 [facility] [id number] [place] [address] 03993- 2982 Jan, Cramps of right lower extremity R25.2 ; Essential hypertension I10 ; Mixed hyperlipidemia E78.2 ; Chronic 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 use Z79.899 and Claudication I73.9 [facility] [id number] [place] [address] 32716- 7026 Jan, Right leg pain M79.604 [facility] [id number] [place] [address] 34491- 2925 Dec, [facility] [id number] [place] [address] 79983- 5986 Nov, [facility] [id number] [place] [address] 39808- 3121 Nov, [facility] [id number] [place] [address] 42443- 2779 Nov, [facility] [id number] [place] [address] 88851- 0767 Nov, Dermatofibroma D23.9 [facility] [id number] [place] [address] 06684- 6613 Nov, [facility] [id number] [place] [address] 40061- 1556 Oct, [facility] [id number] [address]- 0749 Oct, [facility] [id number] [place] [address] 09681- 6285 September, Benign non-nodular prostatic hyperplasia with lower urinary tract symptoms N40.1 ; Essential hypertension I10 ; Overactive bladder N32.81 and Fatigue, unspecified type R53.83 [facility] [id number] [place] [address] 56039- 8871 September, [facility] [id number] [place] [address] 95178- 0052 September, [facility] [id number] [place] [address] 47219- 5651 Aug, [facility] [id number] [place] [address] 96377- 8907 Jul, [facility] [id number] [place] [address] 16617- 0396 Jul, Pelvic pain R10.2 ; Jock itch B35.6 ; Essential hypertension I10 and Hydrocele, unspecified hydrocele type N43.3 [facility] [id number] [place] [address] 30794- 7376 Jun, [facility] [id number] [address]- 3582 Jun, [facility] [id number] [place] [address] 91308- 9080 Jun, Benign non-nodular prostatic hyperplasia with lower urinary tract symptoms N40.1 [facility] [id number] [place] [address] 85683- 1717 Jun, Benign non-nodular prostatic hyperplasia with lower urinary tract symptoms N40.1 [facility] [id number] [place] [address] 89999- 2000 Jun, [facility] [id number] [place] [address] 05797- 3584 May, [facility] [id number] [place] [address] 40987- 0611 Apr, [facility] [id number] [place] [address] 01200- 7355 Apr, [facility] [id number] [place] [address] 82771- 4857 Apr, Other acute pulmonary embolism without acute cor pulmonale I26.99 ; Anxiety F41.9 ; 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 and group home 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 use Z79.899 [facility] [id number] [place] [address] 66632- 5416 Apr, [facility] [id number] [place] [address] 64947- 0143 Apr, [facility] [address] 73049- 0145 Mar, [facility] [id number] [place] [address] 66195- 7975 Mar, [facility] [id number] [place] [address] 45530- 8905 Feb, Cough R05 [facility] [id number] [place] [address] 73580- 4139 Feb, [facility] [id number] [place] [address] 06440- 7927 Feb, Encounter for immunization Z23 [facility] [id number] [place] [address] 95168- 8274 Feb, Other and unspecified hyperlipidemia 272.4 [facility] [id number] [place] [address] 89302- 3669 Jan, [facility] [id number] [place] [address] 38010- 8525 Jan, TIA (transient ischemic attack) 435.9 [facility] [address] [address]- 4219 Dec, [facility] [id number] [place] [address] 89344- 0051 Dec, [facility] [address] [address]- 3154 Dec, [facility] [id number] [place] [address] 08347- 5415 Nov, [facility] [id number] [place] [address] 06566- 4611 Oct, Chronic cough 786.2 [facility] [id number] [place] [address] 38924- 6190 Oct, [facility] [id number] [place] [address] 08918- 4155 Oct, [facility] [id number] [place] [address] 69592- 6083 Oct, [facility] [address] [address]- 6135 Oct, [facility] [id number] [place] [address] 69504- 1993 Oct, Chronic cough 786.2 [facility] [address] [address]- 7760 Oct, Cough 786.2 ; Hypertension 401.9 ; BPH (benign prostatic hyperplasia) 600.00 ; Other and unspecified hyperlipidemia 272.4 and Hydrocele 603.9 [facility] [address] [address]- 3807 Oct, [facility] [id number] [place] [address] 22871- 6379 September, [facility] [address] [address]- 8729 Aug, [facility] [id number] [place] [address]- 0773 13 Aug, 2014 [facility] [place] [facility] [address] [id number] [place] [address]- 8754 Jul, [facility] [place] [facility] [address] [id number] [place] [address]- 5110 Jul, [facility] [place] [facility] [address] [facility] [id number] [place] [address]- 9610 Jul, [facility] [place] [facility] [address] [id number] [place] [address]- 1779 Jul, [facility] [place] [facility] [address] [id number] [place] [address]- 2465 Jul, [facility] [place] [facility] [address] [id number] [place] [address]- 4138 Jun, 2014 [facility] [place] [facility] [address] [facility] [id number] [place] [address]- 2194 Jun, 2014 [facility] [place] [facility] [address] [facility] [id number] [place] [address]- 7605 Jun, [facility] [place] [facility] [address] [facility] [id number] [place] [address]- 8857 Jun, 2014 [facility] [place] [facility] [address] [facility] [id number] [place] [address]- 1258 Jun, 2014 [facility] [place] [facility] [address] [facility] [id number] [place] [address] 2541 Jun, 2014 [facility] [place] [facility] [address] [id number] [place] [address] 2549 Jun, 2014 [facility] [place] [facility] [address] [id number] [place] [address]- 1267 Jun, [facility] [place] [facility] [address] [facility] [id number] [place] [address]- 8813 May, [facility] [place] [facility] [address] [facility] [id number] [place] [address]- 2534 May, [facility] [place] [facility] [address] [id number] [place] [address]- 7357 May, [facility] [place] [facility] [address] [id number] [place] [address]- 8284 May, [facility] [place] [facility] [address] [id number] [place] [address]- 0434 May, [facility] [place] [facility] [address] [id number] [place] [address]- 3748 May, [facility] [place] [facility] [address] [id number] [place] [address]- 6296 May, [facility] [place] [facility] [address] [id number] [place] [address]- 1704 May, [facility] [place] [facility] [address] [id number] [place] [address]- 9[address] May, [facility] [place] [facility] [address] [id number] [place] [address] May, [facility] [place] [facility] [address] [id number] [place] [address] Apr, [facility] [place] [facility] [address] [id number] [place] [address] Apr, [facility] [place] [facility] [address] [id number] [address] Apr, [facility] [place] [facility] [address] [id number] [address] Apr, [facility] [place] [facility] [address] [id number] [place] [address] Apr, [facility] [place] [facility] [address] [id number] [place] [address] Apr, [facility] [place] [facility] [address] [id number] [place] [address] Apr, [facility] [place] [facility] [address] [id number] [place] [address] Apr, [facility] [place] [facility] [address] [id number] [place] [address] Mar, [facility] [place] [facility] [address] [id number] [place] [address] Mar, [facility] [place] [facility] [address] [id number] [place] [address] Mar, [facility] [place] [facility] [address] [id number] [place] [address] Mar, [facility] [place] [facility] [address] [id number] [place] [address] Mar, [facility] [place] [facility] [address] [id number] [place] [address] Mar, [facility] [place] [facility] [address] [id number] [place] [address] Mar, [facility] [place] [facility] [address] [id number] [place] [address] Mar, [facility] [place] [facility] [address] [id number] [place] [address] Mar, [facility] [place] [facility] [address] [id number] [place] [address] Mar, [facility] [place] [facility] [address] [id number] [place] [address] Feb, [facility] [place] [facility] [address] [id number] [place] [address] Feb, [facility] [place] [facility] [address] [id number] [place] [address] Feb, [facility] [place] [facility] [address] [id number] [place] [address] Feb, [facility] [place] [facility] [address] [id number] [place] [place] [address] Feb, [facility] [place] [facility] [address] [id number] [place] [address] 14 Feb, 2014 [facility] [place] [facility] [address] [id number] [place] [address] 7937 30 Jan, 2013 [facility] [place] [facility] [address] [id number] [place] [address]48 30 Jan, 2013 [facility] [place] [facility] [address] [id number] [place] [address] 0185 24 Jan, 2013 [facility] [place] [facility] [address] [id number] [place] [address] 8765 24 Jan, 2013 [facility] [place] [facility] [address] [id number] [place] [address] 6801 19 Jan, 2013 [facility] [place] [facility] [address] [id number] [place] [address] 3557 19 Jan, 2013 [facility] [place] [facility] [address] [id number] [place] [address] 3320 16 Jan, 2013 [facility] [place] [facility] [address] [id number] [place] [address] 8133 16 Jan, 2013 [facility] [place] [facility] [address] [id number] [place] [address]- 9354 16 Jan, 2013 [facility] [place] [facility] [address] [id number] [place] [address] 9140 16 Jan, 2013 [facility] [place] [facility] [address] [id number] [place] [address]- 5473 12 Jan, 2013 [facility] [place] [facility] [address] [id number] [place] [address] 2699 12 Jan, 2014 [facility] [place] [facility] [address] [id number] [place] [address] 3903 Dec, [facility] [place] [facility] [address] [id number] [place] [address] 1610 Dec, [facility] [place] [facility] [address] [id number] [place] [address]- 9618 Dec, [facility] [place] [facility] [address] [id number] [place] [address]- 2286 Dec, [facility] [place] [facility] [address] [id number] [place] [address] 9743 Dec, [facility] [place] [facility] [address] [id number] [place] [address] 4967 Dec, [facility] [place] [facility] [address] [id number] [place] [address] 0841 Nov, [facility] [place] [facility] [address] [id number] [place] [address] 1457 Nov, [facility] [place] [facility] [address] [id number] [place] [address]- 9595 Nov, [facility] [place] [facility] [address] [id number] [place] [address]- 4070 Nov, [facility] [place] [facility] [address] [id number] [place] [address]- 2217 Nov, [facility] [place] [facility] [address] [id number] [place] [address]- 4767 Nov, [facility] [place] [facility] [address] [id number] [place] [address]- 7309 Nov, [facility] [place] [facility] [address] [id number] [place] [address]- 5670 Nov, [facility] [place] [facility] [address] [id number] [place] [address] 2923 Oct, [facility] [place] [facility] [address] [id number] [place] [address]- 0025 Oct, [facility] [place] [facility] [address] [id number] [place] [address]- 1075 Oct, [facility] [place] [facility] [address] [id number] [place] [address]- 1414 Oct, [facility] [place] [facility] [address] [id number] [place] [address] 3281 September, [facility] [address] [id number] [place] [address] 4394 September, [facility] [address] [id number] [place] [address]- 5817 September, [facility] [address] [id number] [place] [address] 3946 September, [facility] [address] [id number] [place] [address] 1504 September, [facility] [address] [id number] [place] [address]- 0795 September, [facility] [address] [id number] [place] [address]- 4792 Aug, [facility] [address] [id number] [place] [address] 2882 Aug, [facility] [address] [id number] [place] [address]- 2866 Aug, [facility] [address] [id number] [place] [address]- 9575 Aug, [facility] [address] [id number] [place] [address]- 0995 Aug, [facility] [place] [facility] [address] [id number] [place] [address] 5098 Aug, [facility] [address] [id number] [place] [address] 5731 Aug, [facility] [place] [facility] [address] [id number] [place] [address] Aug, [facility] [place] [facility] [address] [id number] [place] [address]- 1415 Jul, [facility] [place] [facility] [address] [id number] [place] [address]- 4370 Jul, [facility] [place] [facility] [address] [id number] [place] [address]- 1555 Jun, [facility] [place] [facility] [address] [id number] [place] [address]- 8449 Jun, [facility] [place] [facility] [address] [id number] [place] [address] Jun, [facility] [place] [facility] [address] [id number] [place] [address]- 9290 Jun, [facility] [place] [facility] [address] [id number] [place] [address]- 3087 Jun, [facility] [place] [facility] [address] [id number] [place] [address]- 6756 May, [facility] [place] [facility] [address] [id number] [place] [address]- 5168 May, [facility] [place] [facility] [address] [id number] [address] 8267 May, [facility] [place] [facility] [address] [facility] [id number] [place] [address]- 9698 May, [facility] [place] [facility] [address] [facility] [id number] [place] [address]- 8182 Apr, [facility] [place] [facility] [address] [id number] [address] 2268 Apr, [facility] [place] [facility] [address] [id number] [address] 5479 Mar, [facility] [place] [facility] [address] [id number] [place] [address] 9801 Mar, [facility] [place] [facility] [address] [id number] [address]- 9278 Feb, [facility] [place] [facility] [address] [facility] [id number] [place] [address]- 5917 Feb, [facility] [place] [facility] [address] [id number] [place] [address]- 0289 Feb, [facility] [place] [facility] [address] [id number] [place] [address]- 7784 Feb, [facility] [place] [facility] [address] [id number] [place] [address]- 4761 Feb, [facility] [place] [facility] [address] [id number] [place] [address]- 0301 Feb, [facility] [place] [facility] [address] [id number] [place] [address]- 5968 Feb, [facility] [place] [facility] [address] [id number] [place] [address]- 1425 Jan, [facility] [place] [facility] [address] [id number] [place] [address]- 5973 Jan, [facility] [place] [facility] [address] [id number] [place] [address]- 0855 Dec, [facility] [place] [facility] [address] [id number] [place] [address]- 8170 Dec, [facility] [place] [facility] [address] [id number] [place] [address]- 0576 Dec, [facility] [place] [facility] [address] [id number] [place] [address]- 3865 Dec, [facility] [place] [facility] [address] [id number] [place] [address]- 7584 Dec, [facility] [place] [facility] [address] [id number] [place] [address]- 7843 Nov, [facility] [place] [facility] [address] [id number] [place] [address]- 4631 Nov, [facility] [place] [facility] [address] [id number] [place] [address]- 3326 Nov, [facility] [place] [facility] [address] [id number] [place] [address]- 9585 Oct, [facility] [place] [facility] [address] [id number] [place] [address]- 1450 Oct, [facility] [address] [id number] [place] [address]- 8345 Oct, [facility] [address] [id number] [place] [address]- 8072 September, [facility] [address] [id number] [place] [address]- 3758 Aug, [facility] [address] [id number] [place] [address]- 8951 Aug, [facility] [address] [id number] [place] [address]- 1005 Aug, [facility] [address] [id number] [place] [address]- 0333 Jul, [facility] [address] [id number] [place] [address]- 2408 Jul, [facility] [address] [id number] [place] [address]- 2326 Jul, [facility] [address] [id number] [place] [address]- 2630 Jul, [facility] [address] [id number] [place] [address]- 9310 Jul, [facility] [address] [id number] [place] [address]- 9964 Jun, [facility] [place] [facility] [address] [id number] [place] [address]- 6774 Jun, [facility] [place] [facility] [address] [id number] [place] [address]- 2346 May, [facility] [place] [facility] [address] [id number] [place] [address]- 2546 May, [facility] [place] [facility] [address] [id number] [address] 2546 Apr, [facility] [address] [id number] [place] [address] 2546 Apr, [facility] [place] [facility] [address] [id number] [address]- 2546 Mar, [facility] [address] [facility] [id number] [address]- 2546 Mar, [facility] [place] [facility] [address] [id number] [place] [address]- 2546 Mar, [facility] [address] [facility] [id number] [address]- 2546 Mar, [facility] [address] [id number] [id number] Feb, [facility] [address] [id number] [address]- 9246 Feb, [facility] [place] [facility] [address] [facility] [id number] [place] [address]- 0936 Feb, [facility] [address] [id number] [address]- 0466 Feb, [facility] [place] [facility] [address] [id number] [place] [address]- 1586 Feb, [facility] [address] [id number] [place] [address]- 2546 Feb, [facility] [place] [facility] [address] [id number] [address]- 2546 Feb, [facility] [place] [facility] [address] [id number] [place] [address]- 2546 Jan, [facility] [place] [facility] [address] [id number] [place] [address]- 2546 Jan, [facility] [place] [facility] [address] [facility] [id number] [place] [address]- 2546 Dec, [facility] [place] [facility] [address] [id number] [place] [address] 2546 Dec, [facility] [address] [id number] [place] [address]- 0888 Nov, [facility] [place] [facility] [address] [id number] [place] [address] 2546 Oct, [facility] [address] [id number] [place] [address] 2546 September, [facility] [place] [facility] [address] [id number] [place] [address]- 2546 September, [facility] [address] [id number] [place] [address] 2546 September, [facility] [address] [id number] [place] [address]- 6956 Aug, [facility] [address] [id number] [place] [address]- 9766 May, [facility] [address] [id number] [place] [address]- 3562 May, [facility] [address] [id number] [place] [address]- 5301 Apr, [facility] [address] [facility] [id number] [place] [address]- 4541 Apr, [facility] [address] [id number] [place] [address]- 7711 Apr, [facility] [address] [id number] [place] [address]- 2546 Apr, [facility] [place] [facility] [address] [id number] [place] [address]- 2546 Apr, [facility] [place] [facility] [address] [id number] [place] [address]- 2546 Mar, [facility] [address] [id number] [place] [address]- 8546 Feb, [facility] [address] [facility] [id number] [address]- 6768 Feb, [facility] [address] [id number] [address]- 9627 September, [facility] [address] [id number] [address]- 6936 Mar, [facility] [id number] [address]- 3076 Feb, [facility] [address] [id number] [address]- 1689 Feb, [facility] [address] [id number] [address]- 2555 Feb, IMMUNIZATIONS No Known Immunizations SOCIAL HISTORY Never Assessed REASON FOR VISIT PALS IN-[place] PLAN OF CARE VITAL SIGNS MEDICATIONS Unknown [...]
--- OUTSIDE RECORDS SUMMARY | 2018-04-10 18:22 | XMS REPORT ---
Author Author PASCUAL WHITNEY Organization [facility] Address [address] [place] [address] Care Team Providers Care Associate Artistic Director Name Role Phone TEA WHITNEYCHIKI Unavailable PROBLEMS Type Condition ICD9-CM Code BFS39-CT Code Onset Dates Condition Status SNOMED Code Problem Hypermetropia of both eyes H52.03 Active 94359135 Problem Transient cerebral ischemia, unspecified transient cerebral ischemia type G45.9 Active 313189911 Problem Color blindness H53.50 Active 352854550 Problem Essential hypertension I10 Active 00229538 Problem Presbyopia of both eyes H52.4 Active 16586557 Problem Anxiety F41.9 Active 12661564 Problem Other chronic pain G89.29 Active 20306712 Problem Overactive bladder N32.81 Active 920520118 Problem At high risk for falls Z91.81 Active [id number] Problem Asymptomatic microscopic hematuria R31.21 Active 881489256 Problem Mixed hyperlipidemia E78.2 Active 568187356 Problem Astigmatism of both eyes, unspecified type H52.203 Active 87369938 Problem Nuclear senile cataract of both eyes H25.13 Active 708316971 Problem 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 Active 532850443 Problem Alzheimer's disease, unspecified G30.9 Active 508669805 Problem Gait instability R26.81 Active 81793355 Problem Mild episode of recurrent major depressive disorder F33.0 Active 428485496 Problem Other acute pulmonary embolism without acute cor pulmonale I26.99 Active 103456500 Problem Hydrocele, unspecified hydrocele type N43.3 Active 17580781 Problem Primary insomnia F51.01 Active 642552819 Problem 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 Active 399846057 Problem 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 Active 91308100 Problem Benign non-nodular prostatic hyperplasia with lower urinary tract symptoms N40.1 Active 997760797 Problem Alzheimers disease with late onset G30.1 Active 827287183 Problem Renal cyst, left Q61.00 Active 74833025 ALLERGIES No Information ENCOUNTERS Encounter Location Date Diagnosis [facility] [id number] [place] [address] 15133- 9306 September, [facility] [id number] [place] [address] 04008- 1395 September, [facility] [id number] [place] [address] 16105- 4633 Aug, [facility] [id number] [place] [address] 61554- 0313 Aug, [facility] [id number] [place] [address] 75870- 1756 Jul, [facility] [id number] [place] [address] 31954- 1538 Jun, [facility] [id number] [place] [address] 38674- 3247 07 Jun, 2017 Medicare annual wellness visit, initial Z00.00 ; Mixed hyperlipidemia E78.2 ; Essential hypertension I10 ; Anxiety F41.9 ; Alzheimers disease with late onset G30.1 ; 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 ; Overactive bladder N32.81 ; Primary insomnia F51.01 ; At high risk for falls Z91.81 and Encounter for immunization Z23 [facility] [id number] [place] [address] 05189- 2711 May, [facility] [id number] [place] [address] 33963- 6391 May, Essential hypertension I10 and Transient cerebral ischemia, unspecified transient cerebral ischemia type G45.9 [facility] [id number] [place] [address] [id number] May, Dental examination Z01.20 and Dental caries K02.9 [facility] [id number] [place] [address] 25557- 2996 May, [facility] [id number] [place] [address] 53488- 0488 May, [facility] [address] 03026- 0142 May, Alzheimers disease with late onset G30.1 [facility] [id number] [place] [address] 31976- 2467 Apr, [facility] [address] 56334- 8321 Apr, Alzheimers disease with late onset G30.1 and Mild episode of recurrent major depressive disorder F33.0 [facility] [address] 32475- 8999 Mar, Mild episode of recurrent major depressive disorder F33.0 [facility] [id number] [place] [address] 21391- 4168 Mar, Mixed hyperlipidemia E78.2 ; Essential hypertension I10 ; Asymptomatic microscopic hematuria R31.21 and Renal cyst, left Q61.00 [facility] [address] 39297- 0271 Mar, [facility] [address] 27553- 6853 Feb, Encounter for immunization Z23 [facility] [address] 88938- 0240 Feb, [facility] [id number] [place] [address] 70798- 4111 Feb, [facility] [id number] [place] [address] 71775 -1822 Feb, ANUG (acute necrotizing ulcerative gingivitis) A69.1 [facility] [id number] [place] [address] 15853- 6934 Feb, [facility] [address] 91859- 9771 Feb, Mild episode of recurrent major depressive disorder F33.0 [facility] [address] [address]- 0044 Feb, Alzheimers disease with late onset G30.1 and Mild episode of recurrent major depressive disorder F33.0 [facility] [address] [address]- 0573 Jan, Alzheimers disease with late onset G30.1 [facility] [id number] [place] [address] 21520- 6108 Jan, Gait instability R26.81 [facility] [address] [id number] [place] [address] Jan [facility] [address] [id number] [place] [address] Dec [facility] [id number] [place] [address] 89717- 5753 Dec, [facility] [id number] [place] [address] 43508- 4774 Dec, [facility] [id number] [place] [address] 63657- 8088 Dec, Essential hypertension I10 ; Transient cerebral ischemia, unspecified transient cerebral ischemia type G45.9 and Anxiety F41.9 [facility] [address] [address]- 1432 Dec, Gait instability R26.81 [facility] [id number] [address]- 5581 Dec, [facility] [id number] [place] [address] 61954- 3703 Nov, Alzheimers disease with late onset G30.1 and Mild episode of recurrent major depressive disorder F33.0 [facility] [address] [address]- 4885 Nov, [facility] [id number] [place] [address] 06117- 0789 Nov, Gait instability R26.81 [facility] [id number] [place] [address] 96401- 6611 Nov, Anxiety F41.9 [facility] [id number] [place] [address] 72358- 1237 Nov, [facility] [id number] [place] [address] 73608- 6922 Nov, [facility] [id number] [place] [address] 71508- 2661 Oct, Gait instability R26.81 [facility] [id number] [place] [address] 35989- 0338 Oct, Anxiety F41.9 [facility] [id number] [place] [address] 56460- 5110 Oct, Gait instability R26.81 [facility] [id number] [place] [address] 51015- 3891 Oct, Gait instability R26.81 [facility] [id number] [place] [address] 38032- 3260 Oct, [facility] [id number] [place] [address] 32487- 6637 Oct, Anxiety F41.9 ; Chronic 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 use Z79.899 ; Encounter for immunization Z23 and Transient cerebral ischemia, unspecified transient cerebral ischemia type G45.9 [facility] [address] [address]- 7978 September, [facility] [id number] [place] [address] 03328- 4474 September, Gait instability R26.81 [facility] [address] [address]- 7712 September, [facility] [id number] [place] [address] 50259- 1662 September, [facility] [address] [address]- 4837 September, [facility] [id number] [place] [address] 64932- 3061 September, Alzheimers disease with late onset G30.1 and Mild episode of recurrent major depressive disorder F33.0 [facility] [id number] [place] [address] 42947- 5941 September, [facility] [id number] [place] [address] 33753- 4889 September, [facility] [id number] [place] [address] 23568- 9123 September, [facility] [id number] [address]- 3043 September, Mild episode of recurrent major depressive disorder F33.0 [facility] [id number] [place] [address] 44000- 8073 Aug, Mild episode of recurrent major depressive disorder F33.0 ; Alzheimers disease with late onset G30.1 ; Other acute pulmonary embolism without acute cor pulmonale I26.99 and Cough R05 [facility] [address] [address]- 9381 Aug, [facility] [address] [address]- 8913 Aug, Gait instability R26.81 [facility] [address] [address]- 5295 Aug, Alzheimers disease with late onset G30.1 and Mild episode of recurrent major depressive disorder F33.0 [facility] [address] [address]- 0889 Aug, [facility] [address] [address]- 7481 Aug, 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 [facility] [address] [address]- 7457 Jul, Alzheimers disease with late onset G30.1 [facility] [id number] [place] [address] 02856- 6433 Jul, [facility] [id number] [place] [address] 83177- 6591 Jul, 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 [facility] [id number] [place] [address] 07765- 8026 Jul, Anxiety F41.9 ; Alzheimers disease with late onset G30.1 and Transient cerebral ischemia, unspecified transient cerebral ischemia type G45.9 [facility] [id number] [place] [address] 51523- 4073 Jun, Essential hypertension I10 [facility] [id number] [place] [address] 04285- 9281 Jun, [facility] [id number] [place] [address] 67036- 3029 Jun, [facility] [id number] [place] [address] 04328- 5792 Jun, [facility] [id number] [place] [address] 72592- 0834 Jun, Essential hypertension I10 ; Benign non-nodular prostatic hyperplasia with lower urinary tract symptoms N40.1 ; Anxiety F41.9 ; Pain in right knee M25.561 ; Pain in left knee M25.562 and Other chronic pain G89.29 [facility] [id number] [place] [address] 12240- 5868 May, [facility] [id number] [place] [address] 29301- 9878 May, [facility] [id number] [place] [address] 24028- 3723 May, [facility] [id number] [place] [address] 68251- 9769 Apr, [facility] [id number] [place] [address] 69157- 1996 Mar, [facility] [id number] [place] [address] 25005- 8500 Mar, Mixed hyperlipidemia E78.2 and Essential hypertension I10 [facility] [address] 88574- 0457 Feb, [facility] [address] 52390- 5345 Feb, Ingrown nail L60.0 and Onychomycosis B35.1 [facility] [address] 08837- 3504 Feb, Paronychia, left L03.012 [facility] [id number] [place] [address] 50184- 3570 Jan, [facility] [id number] [place] [address] 70803- 0617 Jan, Cramps of right lower extremity R25.2 and Mixed hyperlipidemia E78.2 [facility] [id number] [place] [address] 25124- 1584 Jan, Cramps of right lower extremity R25.2 ; Essential hypertension I10 ; Mixed hyperlipidemia E78.2 ; Chronic 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 use Z79.899 and Claudication I73.9 [facility] [id number] [place] [address] 99825- 7298 Jan, Right leg pain M79.604 [facility] [id number] [place] [address] 94333- 3196 Dec, [facility] [id number] [place] [address] 76343- 6044 Nov, [facility] [address] [address]- 9970 Nov, [facility] [address], [place] [address]- 2419 Nov, [facility] [address] [address]- 5825 Nov, Dermatofibroma D23.9 [facility] [id number] [place] [address] 09871- 5779 Nov, [facility] [id number] [address]- 6304 Oct, [facility] [id number] [place] [address] 52543- 7708 Oct, [facility] [id number] [place] [address] 88379- 1469 September, Benign non-nodular prostatic hyperplasia with lower urinary tract symptoms N40.1 ; Essential hypertension I10 ; Overactive bladder N32.81 and Fatigue, unspecified type R53.83 [facility] [address] [address]- 9428 September, [facility] [id number] [place] [address] 87251- 7669 September, [facility] [address] [address]- 1576 Aug, [facility] [address], [place] [address]- 7271 Jul, [facility] [address], [place] [address]- 7241 Jul, Pelvic pain R10.2 ; Jock itch B35.6 ; Essential hypertension I10 and Hydrocele, unspecified hydrocele type N43.3 [facility] [address], [place] [address]- 8294 Jun, [facility] [id number] [place] [address] 58784- 1465 Jun, [facility] [id number] [place] [address] 02526- 2138 Jun, Benign non-nodular prostatic hyperplasia with lower urinary tract symptoms N40.1 [facility] [id number] [place] [address] 96187- 6157 Jun, Benign non-nodular prostatic hyperplasia with lower urinary tract symptoms N40.1 [facility] [id number] [place] [address] 18971- 7114 Jun, [facility] [address] 54616- 6356 May, [facility] [id number] [place] [address] 14290- 3263 Apr, [facility] [id number] [place] [address] 60279- 1097 Apr, [facility] [id number] [place] [address] 30263- 3188 Apr, Other acute pulmonary embolism without acute cor pulmonale I26.99 ; Anxiety F41.9 ; 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 and alf 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 use Z79.899 [facility] [id number] [place] [address] 03897- 1920 Apr, [facility] [id number] [place] [address] 79243- 7730 Apr, [facility] [id number] [place] [address] 59189- 5913 Mar, [facility] [id number] [place] [address] 23162- 3607 Mar, [facility] [id number] [place] [address] 73739- 8363 Feb, Cough R05 [facility] [id number] [place] [address] 68623- 3170 Feb, [facility] [address], [place] [address]- 1211 Feb, Encounter for immunization Z23 [facility] [address] [address]- 5218 Feb, Other and unspecified hyperlipidemia 272.4 [facility] [id number] [place] [address] 81845- 1801 Jan, [facility] [address] [address]- 3969 Jan, TIA (transient ischemic attack) 435.9 [facility] [id number] [place] [address] 25599- 4536 Dec, [facility] [address] [address]- 0733 Dec, [facility] [address] [address]- 0300 Dec, [facility] [address] [address]- 1857 Nov, [facility] [address] [address]- 3822 Oct, Chronic cough 786.2 [facility] [address] [address]- 6903 Oct, [facility] [address], [place] [address]- 3600 Oct, [facility] [address] [address]- 2323 Oct, [facility] [address] [address]- 4649 Oct, [facility] [id number] [address]- 5139 Oct, Chronic cough 786.2 [facility] [address] [address]- 3357 Oct, Cough 786.2 ; Hypertension 401.9 ; BPH (benign prostatic hyperplasia) 600.00 ; Other and unspecified hyperlipidemia 272.4 and Hydrocele 603.9 [facility] [address] 6480 Oct, [facility] [id number] [place] [phone] September, [facility] [id number] [place] [phone] Aug, [facility] [id number] [place] [phone] Aug, [facility] [facility] [id number] [place] [address]- 1836 Jul, [facility] [id number] [place] [address]996- 0260 Jul, [facility] [address] [address] 6[address] Jul, [facility] [id number] [place] [address] 97854- 5537 Jul, [facility] [address] [address] 3420 Jul, [facility] [address] [address] 6146 Jun, [facility] [address] 5963 Jun, [facility] [id number] [place] [address] 289722- 9394 Jun, [facility] [address] 3310 Jun, [facility] [id number] [address] 29[address] Jun, [facility] [place] [facility] [address] [id number] [place] [address]- 2445 Jun, [facility] [place] [facility] [address] [id number] [place] 8640 Jun, [facility] [place] [facility] [address] [id number] [place] [address]- 3921 Jun, [facility] [place] [facility] [address] [id number] [place] [address]- 3271 May, [facility] [place] [facility] [address] [id number] [place] [address]- 6581 May, [facility] [place] [facility] [address] [id number] [place] [address]- 5960 May, [facility] [place] [facility] [address] [id number] [place] [address]- 8244 May, [facility] [place] [facility] [address] [id number] [place] [address]- 6790 May, [facility] [place] [facility] [address] [id number] [place] [address]- 3013 May, [facility] [place] [facility] [address] [facility] [id number] [place] [address]- 1161 May, [facility] [place] [facility] [address] [id number] [place] [address]- 8706 May, [facility] [place] [facility] [address] [id number], [place] [address]- 9883 May, [facility] [place] [facility] [address] [id number] [place] [address]- 1434 May, [facility] [place] [facility] [address] [id number] [place] [address]- 0858 Apr, [facility] [place] [facility] [address] [id number] [place] [address]- 7992 Apr, [facility] [place] [facility] [address] [id number] [place] [address]- 0740 Apr, [facility] [place] [facility] [address] [id number] [place] [address]- 3558 Apr, [facility] [place] [facility] [address] [id number] [place] 1369 Apr, [facility] [place] [facility] [address] [id number] [place] [address]- 7498 Apr, [facility] [place] [facility] [address] [id number] [place] [address]- 1296 Apr, [facility] [place] [facility] [address] [id number] [place] [address]- 8118 Apr, [facility] [place] [facility] [address] [id number] [place] [address]- 0466 Mar, [facility] [place] [facility] [address] [id number] [place] [address]- 3556 Mar, [facility] [place] [facility] [address] [id number] [place] [address]- 7671 Mar, [facility] [place] [facility] [address] [id number] [place] [address]- 6629 Mar, [facility] [place] [facility] [address] [id number] [place] [address]- 9268 Mar, [facility] [place] [facility] [address] [id number] [place] [address]- 4471 Mar, [facility] [place] [facility] [address] [id number] [place] [address]- 7503 Mar, [facility] [place] [facility] [address] [id number] [place] [address]- 2653 Mar, [facility] [place] [facility] [address] [id number] [place] [address]- 9997 Mar, [facility] [place] [facility] [address] [id number] [place] [address]- 4013 Mar, [facility] [place] [facility] [address] [id number] [place] [address]- 0104 30 Feb, 2014 [facility] [place] [facility] [address] [id number] [place] [address]- 0731 30 Feb, 2014 [facility] [place] [facility] [address] [id number] [place] [address]- 0581 29 Feb, 2014 [facility] [place] [facility] [address] [id number] [place] [address]- 9321 29 Feb, 2014 [facility] [place] [facility] [address] [id number] [place] [address]- 8416 14 Feb, 2014 [facility] [place] [facility] [address] [id number] [place] [address]- 4765 14 Feb, 2014 [facility] [place] [facility] [address] [id number] [place] [address]- 9424 30 Jan, 2013 [facility] [place] [facility] [address] [id number] [place] [address]- 7710 30 Sep, 2013 [facility] [place] [facility] [address] [id number] [place] [address]- 0266 24 Sep, 2013 [facility] [place] [facility] [address] [id number] [place] [address]- 2180 24 Sep, 2013 [facility] [place] [facility] [address] [id number][place] [address]- 0929 19 Sep, 2013 [facility] [place] [facility] [address] [id number][place] [address]- 7193 19 Sep, 2013 [facility] [place] [facility] [address] [id number] [place] [address]- 2540 16 Sep, 2013 [facility] [place] [facility] [address] [id number] [place] [address]- 8095 16 Sep, 2013 [facility] [place] [facility] [address] [id number] [place] [address]- 2540 16 Sep, 2013 [facility] [place] [facility] [address] [id number] [place] [address]- 3898 16 Jan, 2014 [facility] [place] [facility] [address] [id number] [place] [address]- 5978 Jan, [facility] [place] [facility] [address] [id number] [place] [address]- 1936 Jan, [facility] [place] [facility] [address] [id number] [place] [address]- 8099 Dec, [facility] [place] [facility] [address] [id number] [place] [address]- 5729 Dec, [facility] [place] [facility] [address] [id number] [place] [address]- 4109 Dec, [facility] [place] [facility] [address] [id number] [place] [address]- 9331 Dec, [facility] [place] [facility] [address] [id number] [place] [address]- 6800 Dec, [facility] [place] [facility] [address] [id number] [place] [address]- 2293 Dec, [facility] [place] [facility] [address] [id number] [place] [address]- 0944 Nov, [facility] [place] [facility] [address] [id number] [place] [address]- 2197 Nov, [facility] [place] [facility] [address] [id number] [place] [address]- 2236 Nov, [facility] [place] [facility] [address] [id number] [place] [address]- 3076 Nov, [facility] [place] [facility] [address] [id number] [place] [address]- 0161 Nov, [facility] [place] [facility] [address] [id number] [place] [address]- 9265 Nov, [facility] [place] [facility] [address] [id number] [place] [address]- 1525 Nov, [facility] [place] [facility] [address] [id number] [place] [address]- 9653 Nov, [facility] [place] [facility] [address] [id number] [place] [address]- 7635 Oct, [facility] [place] [facility] [address] [id number] [place] [address]- 3010 Oct, [facility] [place] [facility] [address] [id number] [place] [address]- 3154 Oct, [facility] [place] [facility] [address] [id number] [place] [address]- 1012 Oct, [facility] [place] [facility] [address] [id number] [place] [address]- 4193 September, [facility] [place] [facility] [address] [id number] [place] [address]- 3608 September, [facility] [place] [facility] [address] [id number] [place] [address]- 3509 September, [facility] [place] [facility] [address] [id number] [place] [address]- 0277 September, [facility] [place] [facility] [address] [id number] [place] [address]- 0544 September, [facility] [place] [facility] [address] [id number] [place] [address]- 2094 September, [facility] [place] [facility] [address] [id number] [place] [address]- 6684 Aug, [facility] [place] [facility] [address] [id number] [place] [address]- 7262 Aug, [facility] [place] [facility] [address] [id number] [place] [address]- 7025 Aug, [facility] [place] [facility] [address] [id number] [place] [address]- 9225 Aug, [facility] [place] [facility] [address] [id number] [place] [address]- 0650 Aug, [facility] [place] [facility] [address] [id number] [place] [address]- 0321 Aug, [facility] [place] [facility] [address] [id number] [place] [address]- 8212 Aug, [facility] [place] [facility] [address] [facility] [id number] [place] [address]- 5552 Aug, [facility] [place] [facility] [address] [id number] [place] [address]- 9282 Jul, [facility] [place] [facility] [address] [id number] [place] [address]- 3737 Jul, [facility] [place] [facility] [address] [id number] [place] [address]- 8638 Jun, [facility] [place] [facility] [address] [facility] [id number] [place] [address]- 6646 Jun, [facility] [place] [facility] [address] [facility] [id number] [place] [address]- 9464 Jun, [facility] [place] [facility] [address] [facility] [id number] [place] [address]- 8762 Jun, [facility] [place] [facility] [address] [facility] [id number] [place] [address]- 4395 Jun, [facility] [place] [facility] [address] [facility] [id number] [place] [address]- 6042 May, [facility] [place] [facility] [address] [id number] [place] [address]- 3155 May, [facility] [place] [facility] [address] [id number] [place] [address]- 6277 May, [facility] [place] [facility] [address] [facility] [id number] [place] [address]- 3005 May, [facility] [place] [facility] [address] [facility] [id number] [address]- 6808 Apr, [facility] [place] [facility] [address] [id number] [place] [address]- 0206 Apr, [facility] [place] [facility] [address] [id number] [place] [address]- 4060 Mar, [facility] [place] [facility] [address] [id number] [place] [address]- 4002 Mar, [facility] [place] [facility] [address] [id number] [place] [address]- 9305 Feb, [facility] [place] [facility] [address] [id number] [place] [address]- 9263 Feb, [facility] [place] [facility] [address] [id number] [place] [address]- 0910 Feb, [facility] [place] [facility] [address] [id number] [place] [address]- 2253 Feb, [facility] [place] [facility] [address] [id number] [place] [address]- 2743 Feb, [facility] [place] [facility] [address] [id number] [place] [address]- 5509 Feb, [facility] [place] [facility] [address] [id number] [place] [address]- 1410 Feb, [facility] [place] [facility] [address] [id number] [place] [address]- 8382 Jan, [facility] [place] [facility] [address] [id number] [place] [address]- 0912 Jan, [facility] [place] [facility] [address] [id number] [place] [address]- 5383 Dec, [facility] [place] [facility] [address] [id number] [place] [address]- 0486 Dec, [facility] [place] [facility] [address] [id number] [place] [address]- 8568 15 Dec, 2012 [facility] [place] [facility] [address] [id number] [place] [address]- 1146 Dec, [facility] [address] [id number] [place] [address]- 5982 Dec, [facility] [place] [facility] [address] [id number] [place] [address]- 4796 Nov, [facility] [place] [facility] [address] [id number] [place] [address]- 2543 Nov, [facility] [place] [facility] [address] [id number] [place] [address]- 1211 Nov, [facility] [place] [facility] [address] [id number] [place] [address]- 1795 Oct, [facility] [place] [facility] [address] [id number] [place] [address]- 2152 Oct, [facility] [place] [facility] [address] [id number] [place] [address]- 6031 Oct, [facility] [place] [facility] [address] [id number] [place] [address]- 6547 September, [facility] [place] [facility] [address] [id number] [place] [address]- 3085 Aug, [facility] [place] [facility] [address] [id number] [place] [address]- 9653 Aug, [facility] [place] [facility] [address] [id number] [place] [address]- 0435 Aug, [facility] [place] [facility] [address] [id number] [place] [address]- 2544 Jul, [facility] [place] [facility] [address] [id number] [place] [address]- 2548 18 Jul, 2012 [facility] [place] [facility] [address] [id number] [place] [address]- 2546 15 Jul, 2012 [facility] [place] [facility] [address] [id number] [place] [address]- 2546 Jul, [facility] [place] [facility] [address] [id number] [place] [address]- 2546 Jul, [facility] [address] [id number] [place] [address]- 4096 Jun, [facility] [address] [id number] [place] [address]- 2546 Jun, [facility] [address] [id number] [place] [address]- 2546 May, [facility] [address] [id number] [place] [address]- 2546 May, [facility] [address] [id number] [place] [address]- 2736 Apr, [facility] [address] [id number] [place] [address]- 9906 Apr, [facility] [address] [id number] [place] [address]- 0846 Mar, [facility] [address] [id number] [place] [address]- 1456 Mar, [facility] [address] [id number] [place] [address]- 3366 Mar, [facility] [address] [id number] [address]- 8336 Mar, [facility] [address] [id number] [place] [id number] Feb, [facility] [address] [facility] [id number], [place] [address]- 5816 Feb, [facility] [place] [facility] [address] [facility] [id number] [place] [address]- 4176 Feb, [facility] [place] [facility] [address] [facility] [id number], [place] [address]- 3386 Feb, [facility] [address] [facility] [id number], [place] [address]- 1746 Feb, [facility] [place] [facility] [address] [id number] [place] [address] 2543 Feb, [facility] [address] [id number] [place] [address]- 4825 Feb, [facility] [address] [id number] [place] [address] 2546 Jan, [facility] [address] [id number] [place] [address], [place] [address] 2546 Jan, [facility] [address] [id number] [place] [address]- 1303 Dec, [facility] [address] [id number] [place] [address]- 4256 Dec, [facility] [address] [id number] [place] [address]- 0263 Nov, [facility] [address] [id number] [place] [address]- 6355 Oct, [facility] [address] [id number] [place] [address]- 0794 September, [facility] [address] [id number] [place] [address]- 4957 September, [facility] [address] [id number] [place] [address]- 5388 September, [facility] [address] [id number] [place] [address]- 4134 Aug, [facility] [place] [facility] [address] [id number] [place] [address]- 0094 May, [facility] [place] [facility] [address] [id number] [place] [address]- 5076 May, [facility] [address] [id number] [place] [address]- 7217 Apr, [facility] [address] [id number][place] [address]- 8718 Apr, [facility] [address] [id number], [place] [address]- 4289 Apr, [facility] [address] [id number], [place] [address]- 2849 Apr, [facility] [address] [facility] [id number] 7855 Apr, [facility] [address] [facility] [id number], [place] [address]- 4151 Mar, [facility] [address] [facility] [id number], [place] [address]- 5342 Feb, [facility] [address] [facility] [id number], [place] [address]- 9391 Feb, [facility] [address] [facility] [id number] 5405 September, [facility] [address] [facility] [id number], [place] [address]- 3594 Mar, [facility] [address] [facility] [id number], [place] [address]- 8418 Feb, [facility] [address] [facility] [id number][place] [address]- 5643 Feb, [facility] [address] [id number] [address]- 8258 Feb, IMMUNIZATIONS No Known Immunizations SOCIAL HISTORY [...] Hospitalization History foot fracture Hospitalization History [facility]- Back Pain 03/24/2017
--- OUTSIDE RECORDS SUMMARY | 2018-04-10 18:23 | XMS REPORT ---
Author Author PASCUAL WHITNEY Organization [facility] Address [address] [place] [address] Care Team Providers Care Baster Hand Name Role Phone TEA WHITNEYCHIKI Unavailable PROBLEMS Type Condition ICD9-CM Code AJH90-AH Code Onset Dates Condition Status SNOMED Code Problem Color blindness H53.50 Active 912141148 Problem Presbyopia of both eyes H52.4 Active 26067823 Problem Nuclear senile cataract of both eyes H25.13 Active 976295150 Problem Astigmatism of both eyes, unspecified type H52.203 Active 39616242 Problem Overactive bladder N32.81 Active 208740013 Problem Essential hypertension I10 Active 48367594 Problem Other chronic pain G89.29 Active 36941076 Problem Hypermetropia of both eyes H52.03 Active 78782187 Problem Alzheimer's disease, unspecified G30.9 Active 831187247 Problem Mild episode of recurrent major depressive disorder F33.0 Active 908182061 Problem 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 Active 085082060 Problem Major depressive disorder, single episode, mild F32.0 Active 03149128 Problem Chronic fatigue R53.82 Active 11343154 Problem Hydrocele, unspecified hydrocele type N43.3 Active 96203816 Problem Other acute pulmonary embolism without acute cor pulmonale I26.99 Active 495716865 Problem 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 Active 197076090 Problem Asymptomatic microscopic hematuria R31.21 Active 536191268 Problem Gait instability R26.81 Active 29077164 Problem PVD (peripheral vascular disease) I73.9 Active 669111870 Problem At high risk for falls Z91.81 Active [id number] Problem 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 Active 93785699 Problem Benign non-nodular prostatic hyperplasia with lower urinary tract symptoms N40.1 Active 975729693 Problem Alzheimers disease with late onset G30.1 Active 949863285 Problem Renal cyst, left Q61.00 Active 93813749 Problem Mixed hyperlipidemia E78.2 Active 318175474 Problem Anxiety F41.9 Active 16855176 Problem Transient cerebral ischemia, unspecified transient cerebral ischemia type G45.9 Active 795490129 Problem Primary insomnia F51.01 Active 368607432 ALLERGIES Substance Reaction Event Type Date Status Vicodin Unknown Drug Allergy Apr, Active Lovastatin had a reaction to a statin but is unsure of which statin it was Drug Allergy Apr, Active Codeine Sulfate Unknown Drug Allergy Apr, Active ENCOUNTERS Encounter Location Date Diagnosis [facility] [id number] [place] [address] 54106- 3591 Dec, [facility] [address] 53915- 7578 Nov, [facility] [address] 36150- 7145 Oct, Edema leg R60.0 [facility] [address] 93983- 1857 September, [facility] [address] 42001- 9067 September, Alzheimers disease with late onset G30.1 and Mild episode of recurrent major depressive disorder F33.0 [facility] [id number] [place] [address] 42447- 2041 September, PVD (peripheral vascular disease) I73.9 ; Major depressive disorder, single episode, mild F32.0 ; Chronic fatigue R53.82 ; Weight gain R63.5 and Arthralgia, unspecified joint M25.50 [facility] [id number] [place] [address] 37640- 9302 Aug, Acute low back pain, unspecified back pain laterality, with sciatica presence unspecified M54.5 [facility] [id number] [place] [address] 84533- 9897 Aug, Acute low back pain, unspecified back pain laterality, with sciatica presence unspecified M54.5 [facility] [id number] [place] [address] 97878- 6444 Aug, Pain R52 [facility] [place] [address] 87512- 8722 Jul, [facility], [place] [id number] [place] [address] 48315- 0345 Jun, [facility], [place] [address] 34570- 9040 Jun, Mixed hyperlipidemia E78.2 ; Medicare annual wellness visit , initial Z00.00 ; Essential hypertension I10 ; Anxiety F41.9 ; Alzheimers disease with late onset G30.1 ; 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 ; Overactive bladder N32.81 ; Primary insomnia F51.01 ; At high risk for falls Z91.81 and Encounter for immunization Z23 [facility] [facility] [address] 51492- 5838 May, [place] [address] 31871- 5402 May, Essential hypertension I10 and Transient cerebral ischemia, unspecified transient cerebral ischemia type G45.9 [facility] [id number] [place] [address] [id number] May, Dental examination Z01.20 and Dental caries K02.9 [facility], [place] [id number] [place] [address] 14812- 9777 May, [facility], [place] [id number] [place] [address] 54869- 2342 May, [facility], [place] [address] 63589- 4594 May, Alzheimers disease with late onset G30.1 [facility], [place] [id number] [place] [address] 39744- 7914 Apr, [facility], [place] [address] 83077- 9058 Apr, Alzheimers disease with late onset G30.1 and Mild episode of recurrent major depressive disorder F33.0 [facility], [place] [address] 01913- 6754 Mar, Mild episode of recurrent major depressive disorder F33.0 [facility], [place] [address] 96192- 1133 Mar, Mixed hyperlipidemia E78.2 ; Essential hypertension I10 ; Asymptomatic microscopic hematuria R31.21 and Renal cyst, left Q61.00 [facility], [place] [address] 29364- 5235 Mar, [facility] [place] [address] 66446- 5072 Feb, Encounter for immunization Z23 [facility], [place] [address] 66108- 1161 Feb, [facility], [place] [address] 45471- 3758 Feb, [facility] [address] 58409 -3325 Feb, ANUG (acute necrotizing ulcerative gingivitis) A69.1 [facility], [place] [id number] [place] [address] 54407- 9563 Feb, [facility], [place] [address] 08243- 5242 Feb, Mild episode of recurrent major depressive disorder F33.0 [facility], [place] [id number] [place] [address] 95627- 2372 Feb, Alzheimers disease with late onset G30.1 and Mild episode of recurrent major depressive disorder F33.0 [facility], [place] [id number] [place] [address] 32892- 4176 Jan, Alzheimers disease with late onset G30.1 [facility], [place] [address] [place] [address]- 7472 Jan, Gait instability R26.81 [facility] [address] [id number] [place] [address] Jan [facility] [place] [address] [id number] [place] [address] Dec [facility], [place] [address], [place] [address]- 2546 Dec, [facility], [place] [id number] [place] [address] 33229- 0848 Dec, [facility], [place] [id number] [place] [address] 45520- 5628 Dec, Essential hypertension I10 ; Transient cerebral ischemia, unspecified transient cerebral ischemia type G45.9 and Anxiety F41.9 [facility], [place] [id number] [place] [address] 14650- 7870 Dec, Gait instability R26.81 [facility], [place] [id number] [place] [address] 45290- 9288 Dec, [facility], [place] [id number] [place] [address] 18048- 3883 Nov, Alzheimers disease with late onset G30.1 and Mild episode of recurrent major depressive disorder F33.0 [facility], [place] [address] [address]- 6025 Nov, [facility], [place] [id number] [place] [address] 20622- 1186 Nov, Gait instability R26.81 [facility], [place] [address] [place] [address] 37439- 2872 Nov, Anxiety F41.9 [facility], [place] [address], [place] [address] 1960 Nov, [facility], [place] [address] [place] [address] 01073- 8491 Nov, [facility], [place] [address] [place] [address] 68195- 9600 Oct, Gait instability R26.81 [facility], [place] [id number] [place] [address] 84053- 5556 Oct, Anxiety F41.9 [facility], [place] [id number] [place] [address] 83091- 1611 Oct, Gait instability R26.81 [facility], [place] [id number] [place] [address] 00855- 5186 Oct, Gait instability R26.81 [facility], [place] [id number] [place] [address] 29128- 1723 Oct, [facility], [place] [id number] [place] [address] 43712- 3764 Oct, Anxiety F41.9 ; Chronic 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 use Z79.899 ; Encounter for immunization Z23 and Transient cerebral ischemia, unspecified transient cerebral ischemia type G45.9 [facility], [place] [id number] [place] [address] 20555- 0585 September, [facility], [place] [id number] [place] [address] 82552- 7465 September, Gait instability R26.81 [facility], [place] [id number] [place] [address] 58818- 4254 September, [facility], [place] [id number] [place] [address] 33242- 4001 September, [facility], [place] [id number] [place] [address] 86659- 6755 September, [facility], [place] [id number] [place] [address] 44941- 7474 September, Alzheimers disease with late onset G30.1 and Mild episode of recurrent major depressive disorder F33.0 [facility], [place] [id number] [place] [address] 55511- 6816 September, [facility], [place] [address], [place] [address]- 0612 September, [facility], [place] [address], [place] [address]- 9406 September, [facility], [place] [address], [place] [address]- 6159 September, Mild episode of recurrent major depressive disorder F33.0 [facility], [place] [address], [place] [address]- 3653 Aug, Mild episode of recurrent major depressive disorder F33.0 ; Alzheimers disease with late onset G30.1 ; Other acute pulmonary embolism without acute cor pulmonale I26.99 and Cough R05 [facility], [place] [address], [place] [address]- 8421 Aug, [facility], [place] [address], [place] [address]- 8040 Aug, Gait instability R26.81 [facility], [place] [address], [place] [address]- 4897 Aug, Alzheimers disease with late onset G30.1 and Mild episode of recurrent major depressive disorder F33.0 [facility], [place] [address], [place] [address]- 7192 Aug, [facility], [place] [address], [place] [address]- 6399 Aug, 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 [facility], [place] [address], [place] [address]- 8604 Jul, Alzheimers disease with late onset G30.1 [facility], [place] [address], [place] [address]- 9821 Jul, [facility], [place] [id number] [address]- 7469 Jul, 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 [facility], [place] [id number] [place] [address] 53458- 3042 Jul, Anxiety F41.9 ; Alzheimers disease with late onset G30.1 and Transient cerebral ischemia, unspecified transient cerebral ischemia type G45.9 [facility], [place] [id number] [place] [address] 78555- 0699 Jun, Essential hypertension I10 [facility], [place] [address] 53844- 0026 Jun, [facility], [place] [id number] [place] [address] 78623- 8923 Jun, [facility], [place] [id number] [place] [address] 25090- 1233 Jun, [facility], [place] [id number] [place] [address] 27663- 4493 Jun, Essential hypertension I10 ; Benign non-nodular prostatic hyperplasia with lower urinary tract symptoms N40.1 ; Anxiety F41.9 ; Pain in right knee M25.561 ; Pain in left knee M25.562 and Other chronic pain G89.29 [facility], [place] [id number] [place] [address] 79929- 6761 May, [facility], [place] [id number] [place] [address] 93332- 3846 May, [facility], [place] [id number] [place] [address] 76713- 3147 May, [facility], [place] [id number] [place] [address] 99278- 6496 Apr, [facility], [place] [id number] [place] [address] 84596- 0355 Mar, [facility], [place] [id number] [place] [address] 78975- 4292 Mar, Mixed hyperlipidemia E78.2 and Essential hypertension I10 [facility], [place] [id number] [place] [address] 59378- 1905 Feb, [facility], [place] [id number] [place] [address] 17629- 4293 Feb, Ingrown nail L60.0 and Onychomycosis B35.1 [facility], [place] [id number] [place] [address] 52697- 1082 Feb, Paronychia, left L03.012 [facility], [place] [id number] [place] [address] 52687- 6513 Jan, [facility], [place] [address] 65535- 0385 Jan, Mixed hyperlipidemia E78.2 and Cramps of right lower extremity R25.2 [place] [id number] [place] [address] 53283- 0575 Jan, Cramps of right lower extremity R25.2 ; Essential hypertension I10 ; Mixed hyperlipidemia E78.2 ; Chronic 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 use Z79.899 and Claudication I73.9 [place] [id number] [place] [address] 54575- 3938 Jan, Right leg pain M79.604 [facility], [place] [id number] [place] [address] 24274- 1377 Dec, [facility], [place] [id number] [place] [address] 44998- 0066 Nov, [facility], [place] [id number] [place] [address] 22478- 3799 Nov, [facility], [place] [id number] [place] [address] 56986- 6489 Nov, [facility], [place] [id number] [place] [address] 85857- 9909 Nov, Dermatofibroma D23.9 [facility], [place] [id number] [place] [address] 39218- 8286 Nov, [facility], [place] [address], [place] [address]- 0711 Oct, [facility], [place] [id number] [place] [address] 086215- 8883 Oct, [facility], [place] [address], [place] [address]- 1703 September, Benign non-nodular prostatic hyperplasia with lower urinary tract symptoms N40.1 ; Essential hypertension I10 ; Overactive bladder N32.81 and Fatigue, unspecified type R53.83 [facility], [place] [address], [place] [address]- 5252 September, [facility], [place] [id number] [place] [address] 52022- 1305 September, [facility], [place] [id number] [place] [address] 74186- 3284 Aug, [facility], [place] [address], [place] [address]- 5428 Jul, [facility], [place] [address] [place] [address] 77385- 6000 Jul, Pelvic pain R10.2 ; Jock itch B35.6 ; Essential hypertension I10 and Hydrocele, unspecified hydrocele type N43.3 [facility], [place] [address], [place] [address]- 6268 Jun, [facility], [place] [address], [place] [address]- 1187 Jun, [facility], [place] [address], [place] [address]- 2806 Jun, Benign non-nodular prostatic hyperplasia with lower urinary tract symptoms N40.1 [facility], [place] [address], [place] [address]- 9581 Jun, Benign non-nodular prostatic hyperplasia with lower urinary tract symptoms N40.1 [facility], [place] [id number] [place] [address] 55789- 6849 Jun, [facility], [place] [id number] [place] [address] 48994- 4195 May, [facility], [place] [id number] [place] [address] 01227- 7777 Apr, [facility], [place] [id number] [place] [address] 50157- 0809 Apr, [facility], [place] [id number] [place] [address] 70423- 4176 Apr, Other acute pulmonary embolism without acute cor pulmonale I26.99 ; Anxiety F41.9 ; 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 and MCFP 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 use Z79.899 [facility], [place] [id number] [place] [address] 51799- 8326 Apr, [facility], [place] [id number] [place] [address] 94788- 9536 Apr, [facility], [place] [id number] [place] [address] 47916- 1625 Mar, [facility], [place] [id number] [place] [address] 79961- 4753 Mar, [facility], [place] [id number] [place] [address] 52716- 8825 Feb, Cough R05 [facility], [place] [id number] [place] [address] 77851- 7735 Feb, [facility], [place] [id number] [place] [address] 27729- 8323 Feb, Encounter for immunization Z23 [facility], [place] [id number] [place] [address] 59725- 6491 Feb, Other and unspecified hyperlipidemia 272.4 [facility], [place] [id number] [place] [address] 55465- 2679 Jan, [facility], [place] [address] [address] 6583 Jan, TIA (transient ischemic attack) 435.9 [facility], [place] [id number] [place] [address] 36492- 0027 Dec, [facility], [place] [id number] [place] [address] 65005- 2680 Dec, [facility], [place] [id number] [place] [address] 52273- 1414 Dec, [facility], [place] [id number] [place] [address] 26819- 8865 Nov, [facility], [place] [id number] [place] [address] 06604- 8518 Oct, Chronic cough 786.2 [facility], [place] [id number] [place] [address] 00534- 8717 Oct, [facility], [place] [id number] [place] [address] 35126- 0908 Oct, [facility], [place] [id number] [place] [address] 14763- 3108 Oct, [facility], [place] [id number] [place] [address] 73293- 8312 Oct, [facility], [place] [id number] [place] [address] 89855- 0818 Oct, Chronic cough 786.2 [facility], [place] [id number] [place] [address] [id number]- 1859 Oct, Cough 786.2 ; Hypertension 401.9 ; BPH (benign prostatic hyperplasia) 600.00 ; Other and unspecified hyperlipidemia 272.4 and Hydrocele 603.9 [facility], [place] [address], [place] [address]- 5515 Oct, [facility], [place] [id number] [place] [address] 339824- 8640 September, [facility] [place] [facility] [address] [id number] [place] [address]- 9096 Aug, [facility] [place] [facility] [address] [id number] [place] [address]- 5222 Aug, [facility] [place] [facility] [address] [id number] [place] [address]- 2495 Jul, [facility] [place] [facility] [address] [id number] [place] [address]- 7419 Jul, [facility] [place] [facility] [address] [id number] [place] [address]- 4833 Jul, [facility] [place] [facility] [address] [id number] [place] [address]- 7331 Jul, [facility] [place] [facility] [address] [id number] [place] [address]- 1438 Jul, [facility] [place] [facility] [address] [id number] [place] [address]- 7046 Jun, [facility] [place] [facility] [address] [id number] [place] [address]- 3278 Jun, [facility] [place] [facility] [address] [id number] [place] [address]- 7935 Jun, [facility] [place] [facility] [address] [id number] [place] [address]- 2452 Jun, 2014 [facility] [place] [facility] [address] [id number], [place] [address] Jun, 2014 [facility] [place] [facility] [address] [id number] [place] [address] Jun, [facility] [place] [facility] [address] [id number] [place] [address] [address] Jun, [facility] [place] [facility] [address] [id number] [place] [address] Jun, [facility] [place] [facility] [address] [id number] [place] [address] May, [facility] [address] [id number] [place] [address] May, [facility] [address] [id number] [place] [address] May, [facility] [address] [id number] [place] [address] May, [facility] [address] [id number] [place] [address] May, [facility] [address] [id number] [place] [address] May, [facility] [address] [id number] [place] [address] May, [facility] [address] [id number] [place] [address] May, [facility] [address] [id number] [place] [address] May, [facility] [address] [id number] [place] [address] May, [facility] [address] [id number] [place] [address] Apr, [facility] [address] [id number] [place] [address] Apr, [facility] [address] [id number] [place] [address] Apr, [facility] [place] [facility] [address] [id number] [place] [address] Apr, [facility] [address] [id number] [place] [address] Apr, [facility] [address] [id number] [place] [address] 6[address] Apr, [facility] [place] [facility] [address] [id number] [place] [address] Apr, [facility] [place] [facility] [address] [id number] [place] [address] 4879 Apr, [facility] [place] [facility] [address] [id number] [place] [address] 3897 Mar, [facility] [place] [facility] [address] [id number] [place] [address] 2630 Mar, [facility] [place] [facility] [address] [id number] [place] [address] 9064 Mar, [facility] [place] [facility] [address] [id number] [place] [address] 4703 Mar, [facility] [place] [facility] [address] [id number] [place] [address] 1293 Mar, [facility] [place] [facility] [address] [id number] [place] [address] 8336 Mar, [facility] [place] [facility] [address] [id number] [place] [address]- 3571 Mar, [facility] [place] [facility] [address] [id number] [place] [address]- 1544 Mar, [facility] [place] [facility] [address] [id number] [place] [address] 1860 Mar, [facility] [place] [facility] [address] [id number], [place] [address] 9366 Mar, [facility] [place] [facility] [address] [id number] [place] [address]- 5647 Feb, [facility] [place] [facility] [address] [id number] [place] [address]- 7911 Feb, [facility] [place] [facility] [address] [id number] [address] Feb, [facility] [place] [facility] [address] [id number], [place] [address] 7[address] 29 Feb, 2014 [facility] [place] [facility] [address] [id number] [place] [address]- 4335 14 Feb, 2014 [facility] [place] [facility] [address] [id number] [place] [address]- 0186 14 Feb, 2014 [facility] [place] [facility] [address] [id number] [place] [address]- 2275 30 Jan, 2013 [facility] [place] [facility] [address] [id number] [place] [address]- 7918 30 Jan, 2013 [facility] [place] [facility] [address] [id number] [place] [address]- 1102 24 Jan, 2013 [facility] [place] [facility] [address] [id number] [place] [address]- 1516 24 Jan, 2013 [facility] [place] [facility] [address] [id number] [place] [address]- 8203 19 Jan, 2013 [facility] [place] [facility] [address] [id number] [place] [address]- 2281 19 Jan, 2013 [facility] [place] [facility] [address] [id number] [place] [address]- 7749 16 Jan, 2013 [facility] [place] [facility] [address] [id number] [place] [address]- 7912 16 Jan, 2013 [facility] [place] [facility] [address] [id number] [place] [address]- 1152 16 Jan, 2013 [facility] [place] [facility] [address] [id number], [place] [address]- 2547 16 Jan, 2013 [facility] [place] [facility] [address] [id number] [place] [address]- 2544 12 Jan, 2013 [facility] [place] [facility] [address] [id number] [place] [address]- 8425 12 Jan, 2013 [facility] [place] [facility] [address] [id number] [place] [address]- 1770 25 Dec, 2013 [facility] [place] [facility] [address] [id number] [place] [address]- 3527 Dec, [facility] [place] [facility] [address] [id number] [place] [address]- 7729 Dec, [facility] [place] [facility] [address] [id number] [place] [address]- 4378 Dec, [facility] [place] [facility] [address] [id number] [place] [address]- 9940 Dec, [facility] [place] [facility] [address] [id number] [place] [address]- 9489 Dec, [facility] [place] [facility] [address] [id number] [place] [address]- 6827 Nov, [facility] [place] [facility] [address] [id number] [place] [address]- 2806 Nov, [facility] [place] [facility] [address] [id number] [place] [address]- 8711 Nov, [facility] [place] [facility] [address] [id number] [place] [address]- 5354 Nov, [facility] [place] [facility] [address] [id number] [place] [address]- 3824 Nov, [facility] [place] [facility] [address] [id number] [place] [address]- 5828 Nov, [facility] [place] [facility] [address] [id number] [place] [address] 1934 Nov, [facility] [place] [facility] [address] [id number] [place] [address]- 8844 Nov, [facility] [place] [facility] [address] [id number] [place] [address]- 0332 Oct, [facility] [place] [facility] [address] [id number] [place] [address]- 9086 Oct, [facility] [place] [facility] [address] [id number] [place] [address]- 9998 Oct, [facility] [place] [facility] [address] [id number] [place] [address]- 9374 Oct, [facility] [place] [facility] [address] [id number] [place] [address]- 3686 September, [facility] [place] [facility] [address] [id number] [place] [address]- 6801 September, [facility] [place] [facility] [address] [id number] [place] [address]- 8294 September, [facility] [place] [facility] [address] [id number] [place] [address]- 0045 September, [facility] [place] [facility] [address] [id number] [place] [address]- 8899 September, [facility] [place] [facility] [address] [id number] [place] [address]- 4232 September, [facility] [place] [facility] [address] [id number] [place] [address]- 3061 Aug, [facility] [place] [facility] [address] [id number] [place] [address]- 8733 Aug, [facility] [place] [facility] [address] [id number] [place] [address]- 2164 Aug, [facility] [place] [facility] [address] [id number] [place] [address]- 5549 Aug, [facility] [place] [facility] [address] [id number] [place] [address]- 0763 Aug, [facility] [place] [facility] [address] [id number] [place] [address]- 5632 Aug, [facility] [place] [facility] [address] [id number] [place] [address]- 6535 Aug, [facility] [place] [facility] [address] [id number] [place] [address]- 6884 Aug, [facility] [place] [facility] [address] [id number] [place] [address]- 0695 Jul, [facility] [place] [facility] [address] [id number] [place] [address]- 2002 Jul, [facility] [place] [facility] [address] [id number] [place] [address]- 5786 Jun, [facility] [place] [facility] [address] [id number] [place] [address]- 7216 Jun, [facility] [place] [facility] [address] [id number] [place] [address]- 0411 Jun, [facility] [place] [facility] [address] [id number] [place] [address]- 1622 Jun, [facility] [place] [facility] [address] [id number] [place] [address]- 2771 Jun, [facility] [place] [facility] [address] [id number] [place] [address]- 9629 May, [facility] [place] [facility] [address] [id number] [place] [address]- 8197 May, [facility] [place] [facility] [address] [id number] [place] [address]- 2197 May, [facility] [place] [facility] [address] [id number] [place] [address]- 7983 May, [facility] [place] [facility] [address] [id number] [place] [address]- 6110 Apr, [facility] [place] [facility] [address] [id number] [place] [address]- 0744 Apr, [facility] [place] [facility] [address] [id number] [place] [address]- 1028 Mar, [facility] [place] [facility] [address] [id number] [place] [address]- 1137 Mar, [facility] [place] [facility] [address] [id number] [place] [address]- 5573 Feb, [facility] [place] [facility] [address] [id number] [place] [address]- 7941 Feb, [facility] [place] [facility] [address] [id number] [place] [address]- 4487 Feb, [facility] [place] [facility] [address] [id number] [place] [address]- 4418 Feb, [facility] [place] [facility] [address] [id number] [place] [address]- 0731 Feb, [facility] [place] [facility] [address] [id number] [place] [address]- 2199 Feb, [facility] [place] [facility] [address] [id number] [place] [address]- 7554 Feb, [facility] [place] [facility] [address] [id number] [place] [address]- 5796 Jan, [facility] [place] [facility] [address] [id number] [place] [address]- 9709 Jan, [facility] [place] [facility] [address] [id number] [place] [address]- 3774 Dec, [facility] [place] [facility] [address] [id number] [place] [address]- 1055 Dec, [facility] [place] [facility] [address] [id number] [place] [address]- 7054 Dec, [facility] [place] [facility] [address] [id number], [place] [address]- 2318 Dec, [facility] [place] [facility] [address] [id number] [place] [address]- 7057 Dec, [facility] [place] [facility] [address] [id number] [place] [address]- 2372 Nov, [facility] [place] [facility] [address] [id number], [place] [address]- 8016 Nov, [facility] [place] [facility] [address] [id number], [place] [address]- 9349 Nov, [facility] [address] [id number] [place] [address]- 6736 Oct, [facility] [address] [id number] [place] [address]- 5591 Oct, [facility] [address] [id number] [place] [address]- 9391 Oct, [facility] [address] [id number] [place] [address]- 0254 September, [facility] [address] [id number] [place] [address]- 6382 Aug, [facility] [address] [id number] [place] [address]- 1297 Aug, [facility] [address] [id number] [place] [address]- 2060 Aug, [facility] [address] [id number] [place] [address]- 6649 Jul, [facility] [address] [id number] [place] [address]- 6342 Jul, [facility] [address] [id number] [place] [address]- 2530 Jul, [facility] [address] [id number] [place] [address]- 6878 Jul, [facility] [place] [facility] [address] [id number] [place] [address]- 5458 Jul, [facility] [place] [facility] [address] [id number] [place] [address]- 0337 Jun, [facility] [place] [facility] [address] [id number] [place] [address]- 3967 05 Jun, 2012 [facility] [address] [id number] [place] [address]- 4717 May, [facility] [place] [facility] [address] [id number] [place] [address]- 2546 May, [facility] [place] [facility] [address] [id number] [place] [address]- 2836 Apr, [facility] [place] [facility] [address] [id number] [place] [address]- 2546 Apr, [facility] [place] [facility] [address] [id number] [place] [address]- 2546 Mar, [facility] [place] [facility] [address] [id number] [place] [address]- 2546 Mar, [facility] [place] [facility] [address] [id number] [place] [address]- 2546 Mar, [facility] [place] [facility] [address] [id number] [place] [address]- 2546 Mar, [facility] [address] [id number] [id number] Feb, [facility] [address] [id number] [place] [address]- 2286 Feb, [facility] [place] [facility] [address] [id number] [place] [address]- 5476 Feb, [facility] [place] [facility] [address] [id number] [place] [address]- 2546 Feb, [facility] [place] [facility] [address] [id number] [place] [address]- 2546 Feb, [facility] [place] [facility] [address] [id number] [place] [address]- 2546 Feb, [facility] [place] [facility] [address] [id number] [place] [address]- 2546 Feb, [facility] [place] [facility] [address] [id number] [place] [address]- 2546 28 Jan, 2012 [facility] [place] [facility] [address] [id number] [place] [address]- 5016 Jan, [facility] [address] [id number] [place] [address]- 2071 Dec, [facility] [place] [facility] [address] [id number] [place] [address]- 1526 Dec, [facility] [place] [facility] [address] [id number] [place] [address]- 4287 Nov, [facility] [place] [facility] [address] [id number] [place] [address]- 8037 Oct, [facility] [place] [facility] [address] [id number] [place] [address]- 0324 September, [facility] [place] [facility] [address] [id number] [place] [address]- 3816 September, [facility] [place] [facility] [address] [id number] [place] [address]- 1136 September, [facility] [address] [id number] [place] [address]- 3909 Aug, [facility] [place] [facility] [address] [id number] [place] [address]- 5900 May, [facility] [place] [facility] [address] [id number], [place] [address]- 6052 May, [facility] [place] [facility] [address] [id number], [place] [address]- 6633 Apr, [facility] [place] [facility] [address] [id number], [place] [address]- 7858 Apr, [facility] [place] [facility] [address] [id number] [place] [address]- 4803 14 Apr, 2011 [facility] [place] [facility] [address] [id number] [place] [address]- 3496 Apr, [facility] [place] [facility] [address] [id number], [place] [address]- 0042 Apr, [facility] [place] [facility] [address] [id number], [place] [address]- 1068 Mar, [facility] [place] [id number], [place] [address]- 9788 Feb, [facility] [place] [id number], [place] [address]- 2845 Feb, [facility] [place] [id number], [place] [address]- 9747 September, [facility] [place] [id number] [place] [address]- 5277 Mar, [facility] [place] [id number] [place] [address]- 3374 Feb, [facility] [place] [id number], [place] [address]- 6080 Feb, [facility] [place] [id number], [place] [address]- 3845 Feb, IMMUNIZATIONS No Known Immunizations SOCIAL HISTORY Never Assessed REASON FOR VISIT f/u----DezttCARLOS MANUEL PLAN OF CARE Activity Details Follow Up 3 Months Reason: VITAL SIGNS Height 65 in 2017-05-16 Weight 192 lbs 2017-05-16 Heart Rate 90 bpm 2017-05-16 Respiratory Rate 20 2017-05-16 BMI 31.95 kg/m2 2017-05-16 Blood pressure systolic 132 mmHg 2017-05-16 Blood pressure diastolic 80 mmHg 2017-05-16 MEDICATIONS Medication Instructions Dosage Frequency Start Date End Date Duration Status Eliquis 5 mg Orally 2 times a day 1 tablet 12h Active Amlodipine Besylate 10 MG TAKE ONE TABLET BY MOUTH ONCE DAILY Active Oxybutynin Chloride 5 MG TAKE ONE TABLET BY MOUTH TWICE DAILY 30 Active Cymbalta 60 mg Orally Once a day 1 capsule 24h 30 Active Aricept 5 mg Orally Once a day 1 tablet at bedtime 24h 30 days Active Aspirin 81 MG Orally Once a day 1 tablet 24h Active Flomax 0.4 MG Orally Once a day 1 capsule 30 minutes after the same meal each day 24h 30 Active Proscar 5 MG TAKE 1 TABLET BY MOUTH ONCE DAILY. 30 Active Namenda 10 MG Orally Twice a day 1 tablet 12h Active Abilify 5 mg Orally Once a day 1 tablet 24h 30 day(s) Active Trazodone HCl 150 MG Orally Once a day 1 tablet at bedtime 24h 30 days Active RESULTS No Results PROCEDURES Procedure Date Ordered Result Body Site [facility] ESTABLISHED PATIENT May 16, 2017 INSTRUCTIONS MEDICATIONS ADMINISTERED No Known Medications [...] foot fracture Hospitalization History [facility] [place]- Back Pain 03/24/2017
--- OUTSIDE RECORDS SUMMARY | 2018-04-10 18:24 | XMS REPORT ---
Author Author GELY SHAY [facility] Address [address] [place] [address] Care Team Providers Care Neon Tube Pumper Name Role Phone GELYGLORIASHAY Unavailable PROBLEMS Type Condition ICD9-CM Code JFL24-EL Code Onset Dates Condition Status SNOMED Code Problem Hypermetropia of both eyes H52.03 Active 40221259 Problem Transient cerebral ischemia, unspecified transient cerebral ischemia type G45.9 Active 665123838 Problem Color blindness H53.50 Active 911745472 Problem Essential hypertension I10 Active 44975320 Problem Presbyopia of both eyes H52.4 Active 70549416 Problem Anxiety F41.9 Active 11268990 Problem Other chronic pain G89.29 Active 10177855 Problem Overactive bladder N32.81 Active 566896382 Problem At high risk for falls Z91.81 Active [id number] Problem Asymptomatic microscopic hematuria R31.21 Active 533181354 Problem Mixed hyperlipidemia E78.2 Active 355315197 Problem Astigmatism of both eyes, unspecified type H52.203 Active 42826647 Problem Nuclear senile cataract of both eyes H25.13 Active 912165498 Problem 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 Active 732781431 Problem Alzheimer's disease, unspecified G30.9 Active 660788525 Problem Gait instability R26.81 Active 32408954 Problem Mild episode of recurrent major depressive disorder F33.0 Active 472848624 Problem Other acute pulmonary embolism without acute cor pulmonale I26.99 Active 291247419 Problem Hydrocele, unspecified hydrocele type N43.3 Active 69669155 Problem Primary insomnia F51.01 Active 959878923 Problem 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 Active 785589772 Problem 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 Active 53928406 Problem Benign non-nodular prostatic hyperplasia with lower urinary tract symptoms N40.1 Active 520914252 Problem Alzheimers disease with late onset G30.1 Active 954366191 Problem Renal cyst, left Q61.00 Active 16894023 ALLERGIES No Information ENCOUNTERS Encounter Location Date Diagnosis [place] [id number] [place] [address] 96930- 0268 September, [facility] [id number] [place] [address] 28218- 3150 September, [facility] [address] 45827- 8188 Aug, [facility] [address] 15742- 9661 Aug, Acute low back pain, unspecified back pain laterality, with sciatica presence unspecified M54.5 [facility] [id number] [place] [address] 55415- 4695 Aug, Acute low back pain, unspecified back pain laterality, with sciatica presence unspecified M54.5 [facility] [id number] [place] [address] 97735- 6353 Aug, Pain R52 [facility] [address] 60135- 3425 Jul, [facility] [id number] [place] [address] 29176- 5540 13 Jun, 2017 [place] [id number] [place] [address] 20976- 9344 07 Jun, 2017 Medicare annual wellness visit, initial Z00.00 ; Mixed hyperlipidemia E78.2 ; Essential hypertension I10 ; Anxiety F41.9 ; Alzheimers disease with late onset G30.1 ; 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 ; Overactive bladder N32.81 ; Primary insomnia F51.01 ; At high risk for falls Z91.81 and Encounter for immunization Z23 [facility] [id number] [place] [address] 18042- 8473 May, [facility] [address] 52429- 3093 May, Essential hypertension I10 and Transient cerebral ischemia, unspecified transient cerebral ischemia type G45.9 [facility] [id number] [place] [address] [id number] May, Dental examination Z01.20 and Dental caries K02.9 [facility] [id number] [place] [address] 99536- 5533 May, [facility] [id number] [place] [address] 10524- 3541 May, [facility] [id number] [place] [address] 41941- 4004 May, Alzheimers disease with late onset G30.1 [facility] [id number] [place] [address] 88850- 1453 Apr, [facility] [place] [address] 55985- 1302 Apr, Alzheimers disease with late onset G30.1 and Mild episode of recurrent major depressive disorder F33.0 [facility] [id number] [place] [address] 60726- 0086 Mar, Mild episode of recurrent major depressive disorder F33.0 [facility] [id number] [place] [address] 42501- 7742 Mar, Mixed hyperlipidemia E78.2 ; Essential hypertension I10 ; Asymptomatic microscopic hematuria R31.21 and Renal cyst, left Q61.00 [facility] [id number] [place] [address] 45649- 6795 Mar, [facility] [id number] [place] [address] 81279- 4455 Feb, Encounter for immunization Z23 [facility] [id number] [place] [address] 33620- 0260 Feb, [place] [id number] [place] [address] 33559- 7283 Feb, [facility] [address], [place] [address] Feb, ANUG (acute necrotizing ulcerative gingivitis) A69.1 [facility] [address], [place] [address]- 1489 Feb, [facility] [address] [place] [address] 38683- 3205 Feb, Mild episode of recurrent major depressive disorder F33.0 [facility] [address], [place] [address]- 1039 Feb, Alzheimers disease with late onset G30.1 and Mild episode of recurrent major depressive disorder F33.0 [facility] [address], [place] [address]- 5765 Jan, Alzheimers disease with late onset G30.1 [facility] [address] [address]- 9371 Jan, Gait instability R26.81 [facility] [address] [id number] [place] [address] Jan [facility] [address] [id number] [place] [address] Dec [facility] [address], [place] [address]- 4424 Dec, [facility] [address], [place] [address]- 5902 Dec, [facility] [address], [place] [address]- 4150 Dec, Essential hypertension I10 ; Transient cerebral ischemia, unspecified transient cerebral ischemia type G45.9 and Anxiety F41.9 [facility] [address], [place] [address]- 5671 Dec, Gait instability R26.81 [facility] [address] [place] [address] 49545- 4169 Dec, [facility] [address] [place] [address] 75331- 5228 Nov, Alzheimers disease with late onset G30.1 and Mild episode of recurrent major depressive disorder F33.0 [facility] [id number] [place] [address] 28147- 1661 Nov, [facility] [address] 55780- 0397 Nov, Gait instability R26.81 [facility] [id number] [place] [address] 00033- 2282 Nov, Anxiety F41.9 [facility] [id number] [place] [address] 30493- 4053 Nov, [facility] [id number] [place] [address] 33724- 9822 Nov, [facility] [id number] [place] [address] 51771- 8383 Oct, Gait instability R26.81 [facility] [id number] [place] [address] 55832- 0169 Oct, Anxiety F41.9 [facility] [id number] [place] [address] 76600- 3435 Oct, Gait instability R26.81 [facility] [id number] [place] [address] 88202- 0362 Oct, Gait instability R26.81 [facility] [id number] [place] [address] 94695- 2871 Oct, [facility] [id number] [place] [address] 67126- 4720 Oct, Anxiety F41.9 ; Chronic 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 use Z79.899 ; Encounter for immunization Z23 and Transient cerebral ischemia, unspecified transient cerebral ischemia type G45.9 [facility] [id number] [place] [address] [place] [address]- 9743 September, [facility] [address], [place] [address]- 3376 September, Gait instability R26.81 [facility] [address], [place] [address]- 8119 September, [facility] [id number] [place] [address] 60847- 3641 September, [facility] [id number] [place] [address] 22759- 7506 September, [facility] [id number] [place] [address] 56105- 8301 September, Alzheimers disease with late onset G30.1 and Mild episode of recurrent major depressive disorder F33.0 [facility] [id number] [place] [address] 44649- 1760 September, [facility] [address] [address] 2400 September, [facility] [address] [place] [address] 88219- 6338 September, [facility] [address], [place] [address] 1972 September, Mild episode of recurrent major depressive disorder F33.0 [facility] [address], [place] [address]- 1072 Aug, Mild episode of recurrent major depressive disorder F33.0 ; Alzheimers disease with late onset G30.1 ; Other acute pulmonary embolism without acute cor pulmonale I26.99 and Cough R05 [facility] [address], [place] [address]- 7500 Aug, [facility] [address], [place] [address]- 6164 Aug, Gait instability R26.81 [facility] [address] [address]- 9326 Aug, Alzheimers disease with late onset G30.1 and Mild episode of recurrent major depressive disorder F33.0 [facility] [place] [address] [place] [address] 11095- 1519 Aug, [facility] [id number] [place] [address] 69938- 4540 Aug, 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 [facility] [id number] [place] [address] 50288- 5031 Jul, Alzheimers disease with late onset G30.1 [facility] [place] [id number] [place] [address] 19006- 1124 Jul, [facility] [id number] [place] [address] 61858- 2998 Jul, 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 [facility] [id number] [place] [address] 41059- 2403 Jul, Anxiety F41.9 ; Alzheimers disease with late onset G30.1 and Transient cerebral ischemia, unspecified transient cerebral ischemia type G45.9 [facility] [place] [address], [place] [address]- 9689 Jun, Essential hypertension I10 [facility] [id number] [place] [address] 60255- 1826 Jun, [facility] [address] [place] [address] 78123- 2813 Jun, [place] [address] [place] [address] 16984- 9026 Jun, [place] [address] [place] [address] 30184- 3101 Jun, Essential hypertension I10 ; Benign non-nodular prostatic hyperplasia with lower urinary tract symptoms N40.1 ; Anxiety F41.9 ; Pain in right knee M25.561 ; Pain in left knee M25.562 and Other chronic pain G89.29 [facility] [id number] [place] [address] 32996- 1383 May, [facility] [id number] [place] [address] 69472- 5646 May, [facility] [id number] [place] [address] 91092- 8610 May, [facility] [id number] [place] [address] 75821- 1923 Apr, [facility] [place] [address] 02934- 9789 Mar, [facility] [place] [id number] [place] [address] 38072- 5194 Mar, Mixed hyperlipidemia E78.2 and Essential hypertension I10 [facility] [id number] [place] [address] 17714- 1312 Feb, [facility] [id number] [place] [address] 47573- 5646 Feb, Ingrown nail L60.0 and Onychomycosis B35.1 [facility] [id number] [place] [address] 90535- 5167 Feb, Paronychia, left L03.012 [facility] [place] [id number] [place] [address] 99066- 5853 Jan, [facility] [id number] [place] [address] 60654- 1991 07 Jan, 2016 Cramps of right lower extremity R25.2 and Mixed hyperlipidemia E78.2 [facility] [id number] [place] [address] 55600- 8034 06 Jan, 2016 Cramps of right lower extremity R25.2 ; Essential hypertension I10 ; Mixed hyperlipidemia E78.2 ; Chronic 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 use Z79.899 and Claudication I73.9 [facility] [address], [place] [address]- 4094 Jan, Right leg pain M79.604 [facility] [id number] [place] [address] 84542- 1955 Dec, [facility] [id number] [place] [address] 96360- 7634 Nov, [facility] [id number] [place] [address] 67377- 1976 Nov, [facility] [id number] [place] [address] 02223- 8726 Nov, [facility] [id number] [place] [address] 11904- 5371 Nov, Dermatofibroma D23.9 [facility] [id number] [place] [address] 82888- 3928 Nov, [facility] [address], [place] [address]- 4469 Oct, [facility] [id number] [place] [address] 37675- 7219 Oct, [facility] [address], [place] [address]- 5764 September, Benign non-nodular prostatic hyperplasia with lower urinary tract symptoms N40.1 ; Essential hypertension I10 ; Overactive bladder N32.81 and Fatigue, unspecified type R53.83 [facility] [address], [place] [address]- 7886 September, [facility] [id number] [place] [address] 39911- 3138 September, [facility] [address], [place] [address]- 5401 Aug, [facility] [address] [place] [address] 52488- 2043 Jul, [facility] [id number] [place] [address] 62023- 9617 Jul, Pelvic pain R10.2 ; Jock itch B35.6 ; Essential hypertension I10 and Hydrocele, unspecified hydrocele type N43.3 [facility] [id number] [place] [address] 17783- 1164 Jun, [facility] [address] 53551- 3372 Jun, [facility] [id number] [place] [address] 89187- 7776 Jun, Benign non-nodular prostatic hyperplasia with lower urinary tract symptoms N40.1 [facility] [id number] [place] [address] 85357- 6000 Jun, Benign non-nodular prostatic hyperplasia with lower urinary tract symptoms N40.1 [facility] [id number] [place] [address] 56201- 3456 Jun, [facility] [id number] [place] [address] 73700- 4105 May, [facility] [id number] [place] [address] 23401- 5398 Apr, [facility] [id number] [place] [address] 29599- 5990 Apr, [facility] [id number] [place] [address] 73321- 2948 Apr, Other acute pulmonary embolism without acute cor pulmonale I26.99 ; Anxiety F41.9 ; 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 and 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 [facility] [id number] [place] [address] 29979- 4033 Apr, [facility] [id number] [place] [address] 36732- 1085 Apr, [facility] [address], [place] [address]- 2882 Mar, [facility] [id number] [place] [address] 13741- 6149 Mar, [facility] [id number] [place] [address] 05155- 9096 Feb, Cough R05 [facility] [address] 86518- 8837 Feb, [facility] [id number] [place] [address] 22338- 9899 Feb, Encounter for immunization Z23 [facility] [address] 43855- 3730 Feb, Other and unspecified hyperlipidemia 272.4 [facility] [id number] [place] [address] 33331- 2515 Jan, [facility] [id number] [place] [address] 39940- 3645 Jan, TIA (transient ischemic attack) 435.9 [facility] [id number] [place] [address] 54501- 1163 Dec, [facility] [id number] [place] [address] 93212- 4367 Dec, [facility] [id number] [place] [address] 37802- 8063 Dec, [facility] [id number] [place] [address] 13790- 3947 Nov, [facility] [id number] [place] [address] 54601- 2217 Oct, Chronic cough 786.2 [facility] [id number] [place] [address] 91770- 9858 Oct, [facility] [id number] [place] [address] 85269- 7443 Oct, [facility] [address], [place] [address]- 9372 Oct, [facility] [address], [place] [address]- 2183 Oct, [facility] [address], [place] [address]- 2533 Oct, Chronic cough 786.2 [facility] [id number] [place] [address] 788868- 5720 Oct, Cough 786.2 ; Hypertension 401.9 ; BPH (benign prostatic hyperplasia) 600.00 ; Other and unspecified hyperlipidemia 272.4 and Hydrocele 603.9 [facility] [address], [place] [address]- 9636 Oct, [facility] [address] [place] [address]- 2997 September, [facility] [address], [place] [address]- 6150 Aug, [facility] [address], [place] [address]- 4943 Aug, [facility] [address], [place] [address]- 9140 Jul, [facility] [address], [place] [address]- 7961 Jul, [facility] [address], [place] [address]- 9591 Jul, [facility] [address], [place] [address]- 4185 Jul, [facility] [address] 9009 Jul, [facility] [id number] 2840 Jun, [facility] [place] [facility] [address] [facility] [id number] [place] [address]- 0661 Jun, 2014 [facility] [place] [facility] [address] [id number] [place] [address]- 3387 Jun, 2014 [facility] [place] [facility] [address] [id number] [place] [address]- 5536 Jun, 2014 [facility] [place] [facility] [address] [id number] [place] [address]- 0496 Jun, 2014 [facility] [place] [facility] [address] [id number] [place] [address]- 3966 Jun, 2014 [facility] [place] [facility] [address] [id number] [place] [address]- 9533 Jun, 2014 [facility] [place] [facility] [address] [id number] [place] [address]- 9495 Jun, 2014 [facility] [place] [facility] [address] [id number] [place] [address]- 5694 May, [facility] [place] [facility] [address] [id number] [place] [address]- 7390 May, [facility] [place] [facility] [address] [id number] [place] [address]- 7162 May, [facility] [place] [facility] [address] [id number] [place] [address]- 6512 May, [facility] [place] [facility] [address] [id number], [place] [address]- 7056 May, [facility] [place] [facility] [address] [id number] [place] [address]- 5910 May, [facility] [place] [facility] [address] [id number] [place] [address]- 5138 May, [facility] [place] [facility] [address] [id number] [place] [address]- 5053 May, [facility] [place] [facility] [address] [id number] [place] [address]- 8676 May, [facility] [place] [facility] [address] [id number] [place] [address]- 6243 May, [facility] [place] [facility] [address] [id number] [place] [address]- 3513 Apr, [facility] [place] [facility] [address] [id number] [place] [address]- 1767 Apr, [facility] [place] [facility] [address] [id number] [place] [address]- 0499 Apr, [facility] [place] [facility] [address] [id number] [place] [address]- 3799 Apr, [facility] [place] [facility] [address] [id number] [place] [address]- 3355 Apr, [facility] [place] [facility] [address] [id number] [place] [address]- 9820 Apr, [facility] [place] [facility] [address] [id number] [place] [address]- 5376 Apr, [facility] [place] [facility] [address] [id number] [place] [address] Apr, [facility] [place] [facility] [address] [id number] [place] [address] Mar, [facility] [place] [facility] [address] [id number] [place] [address] Mar, [facility] [place] [facility] [address] [id number] [place] [address] Mar, [facility] [place] [facility] [address] [id number] [place] [address] Mar, [facility] [place] [facility] [address] [id number] [place] [address] Mar, [facility] [place] [facility] [address] [id number] [place] [address] Mar, [facility] [place] [facility] [address] [id number] [place] [address] Mar, [facility] [place] [facility] [address] [id number] [place] [address] Mar, [facility] [place] [facility] [address] [id number] [place] [address] Mar, [facility] [place] [facility] [address] [id number] [place] [address] Mar, [facility] [place] [facility] [address] [id number] [place] [address] Feb, [facility] [place] [facility] [address] [id number] [place] [address] Feb, [facility] [place] [facility] [address] [id number] [place] [address] Feb, [facility] [place] [facility] [address] [id number] [place] [address] Feb, [facility] [place] [facility] [address] [id number] [place] [address] Feb, [facility] [place] [facility] [address] [id number] [place] [address] Feb, [facility] [place] [facility] [address] [id number] [place] [address] 30 Jan, 2014 [facility] [place] [facility] [address] [id number] [place] [address] 30 Jan, 2013 [facility] [place] [facility] [address] [id number] [place] [address] 24 Jan, 2013 [facility] [facility] [address] [id number] [place] [address] 24 Jan, 2013 [facility] [place] [facility] [address] [id number] [place] [address] 19 Jan, 2013 [facility] [place] [facility] [address] [id number] [place] [address] 19 Jan, 2014 [facility] [place] [facility] [address] [id number] [place] [address] 5231 16 Jan, 2013 [facility] [place] [facility] [address] [id number] [place] [address] Jan, 2013 [facility] [place] [facility] [address] [id number] [place] [address] 4068 Jan, [facility] [place] [facility] [address] [id number] [place] [address]- 2325 Jan, 2013 [facility] [place] [facility] [address] [id number] [place] [address]605 Jan, [facility] [place] [facility] [address] [id number] [place] [address] 1402 Jan, [facility] [place] [facility] [address] [id number] [place] [address]- 2927 Dec, [facility] [place] [facility] [address] [id number] [place] [address]- 4111 Dec, [facility] [place] [facility] [address] [id number] [place] [address]- 9408 Dec, [facility] [place] [facility] [address] [id number] [place] [address]- 5060 Dec, [facility] [place] [facility] [address] [id number] [place] [address]- 4685 Dec, [facility] [place] [facility] [address] [id number] [place] [address]- 8545 Dec, [facility] [place] [facility] [address] [id number] [place] [address]- 2046 Nov, [facility] [place] [facility] [address] [id number] [place] [address]- 0023 Nov, [facility] [place] [facility] [address] [id number] [place] [address]- 8396 Nov, [facility] [place] [facility] [address] [id number] [place] [address]- 4957 Nov, [facility] [place] [facility] [address] [id number] [place] [address] 5311 Nov, [facility] [place] [facility] [address] [id number] [place] [address]- 6063 Nov, [facility] [place] [facility] [address] [id number] [place] [address]- 2758 Nov, [facility] [place] [facility] [address] [id number] [place] [address]- 4728 Nov, [facility] [place] [facility] [address] [id number] [place] [address]- 9830 Oct, [facility] [place] [facility] [address] [id number] [place] [address]- 8704 Oct, [facility] [address] [id number] [place] [address]- 1455 Oct, [facility] [place] [facility] [address] [id number] [place] [address]- 9966 Oct, [facility] [place] [facility] [address] [id number] [place] [address]- 5458 September, [facility] [place] [facility] [address] [id number] [place] [address]- 9539 September, [facility] [place] [facility] [address] [id number] [place] [address]- 7869 September, [facility] [place] [facility] [address] [id number] [place] [address]- 9161 September, [facility] [place] [facility] [address] [id number] [place] [address]- 5375 September, [facility] [address] [id number] [place] [address]- 8438 September, [facility] [place] [address] [id number] [place] [address]- 0304 Aug, [facility] [address] [id number] [place] [address]- 7094 Aug, [facility] [address] [id number] [place] [address]- 5692 Aug, [facility] [facility] [address] [id number] [place] [address]- 8113 Aug, [facility] [address] [id number] [place] [address]- 1298 Aug, [facility] [address] [id number] [place] [address]- 4156 Aug, [facility] [address] [id number] [place] [address]- 1117 Aug, [facility] [address] [id number] [place] [address]- 7317 Aug, [facility] [address] [id number] [place] [address]- 9006 Jul, [facility] [address] [id number] [place] [address]- 7104 Jul, [facility] [address] [id number] [place] [address]- 9916 Jun, [facility] [address] [id number] [place] [address]- 5787 Jun, [facility] [address] [id number] [place] [address]- 4250 Jun, [facility] [address] [id number] [place] [address]- 6404 Jun, [facility] [address] [id number] [place] [address]- 3443 Jun, [facility] [address] [id number] [place] [address]- 1339 May, [facility] [address] [id number], [place] [address]287 May, [facility] [address] [id number] [place] [address]- 6508 May, [facility] [address] [id number] [place] [address] May, [facility] [address] [id number] [place] [address] 1552 Apr, [facility] [address] [id number] [place] [address]- 9311 Apr, [facility] [address] [id number] [place] [address]- 1405 Mar, [facility] [address] [id number] [place] [address]- 2695 Mar, [facility] [address] [id number] [place] [address]- 5596 Feb, [facility] [address] [id number] [place] [address]- 0525 Feb, [facility] [address] [id number] [place] [address] 6508 Feb, [facility] [address] [id number] [place] [address] 3143 Feb, [facility] [address] [id number], [place] [address] 4638 Feb, [facility] [address] [id number], [place] [address] 2874 Feb, [facility] [address] [id number], [place] [address] 0379 Feb, [facility] [address] [id number] [address] Jan, [facility] [address] [id number] [place] [address]- 0670 Jan, [facility] [address] [id number] [place] [address]- 3608 Dec, [facility] [address] [id number] [place] [address]- 7603 Dec, [facility] [address] [id number] [place] [address]- 7246 Dec, [facility] [address] [id number] [place] [address]- 3266 Dec, [facility] [address] [id number] [place] [address]- 7012 Dec, [facility] [address] [id number] [place] [address]- 2229 Nov, [facility] [address] [id number] [place] [address]- 2802 Nov, [facility] [address] [id number] [place] [address]- 2037 Nov, [facility] [address] [id number] [place] [address]- 6381 Oct, [facility] [address] [id number] [place] [address]- 2245 Oct, [facility] [address] [id number] [place] [address]- 0914 Oct, [facility] [address] [id number] [place] [address]- 9315 September, [facility] [address] [id number] [place] [address]- 6836 Aug, [facility] [address] [id number] [place] [address]- 7476 Aug, [facility] [address] [id number] [place] [address]- 2546 Aug, [facility] [address] [id number] [place] [address]- 6688 Jul, [facility] [address] [id number] [place] [address]- 3147 18 Jul, 2012 [facility] [address] [id number] [place] [address]- 4636 15 Jul, 2012 [facility] [address] [facility] [id number] [place] [address]- 8751 04 Jul, 2012 [facility] [address] [id number] [place] [address]- 1106 Jul, [facility] [address] [id number] [place] [address]- 2360 Jun, [facility] [address] [facility] [id number] [place] [address]- 5876 Jun, [facility] [address] [facility] [id number] [place] [address]- 5926 May, [facility] [address] [facility] [id number], [place] [address]- 8770 May, [facility] [address] [facility] [id number], [place] [address]- 8232 Apr, [facility] [address] [facility] [id number], [place] [address]- 0704 Apr, [facility] [address] [id number], [place] [address]- 5361 Mar, [facility] [address] [facility] [id number], [place] [address]- 0863 Mar, [facility] [address] [facility] [id number], [place] [address]- 5176 Mar, [facility] [address] [facility] [id number], [place] [address]- 7796 Mar, [facility] [address] [facility] [id number] [place] [id number] Feb, [facility] [address] [facility] [id number], [place] [address]- 8936 Feb, [facility] [address] [id number] [place] [address]- 6151 Feb, [facility] [address] [id number] [place] [address]- 7905 Feb, [facility] [address] [id number] [place] [address]- 9078 Feb, [facility] [address] [id number] [place] [address]- 2705 Feb, [facility] [address] [id number] [place] [address]- 6619 Feb, [facility] [address] [id number] [place] [address]- 9426 Jan, [facility] [address] [facility] [id number] [place] [address]- 6165 Jan, [facility] [address] [facility] [id number] [place] [address]- 8137 Dec, [facility] [address] [facility] [id number] [place] [address]- 1987 Dec, [facility] [address] [facility] [id number] [place] [address]- 2396 Nov, [facility] [address] [facility] [id number], [place] [address]- 8431 Oct, [facility] [address] [facility] [id number], [place] [address]- 2292 September, [facility] [address] [id number] [place] [address]- 7949 September, [facility] [address] [facility] [id number] [place] [address]- 5425 September, [facility] [address] [facility] [id number] [place] [address]- 0832 Aug, [facility] [address] [facility] [id number], [place] [address]- 9330 May, [facility] [address] [facility] [id number][place] 9708 May, [facility] [address] [facility] [id number], [place]88- 3782 Apr, [facility] [address] [facility] [id number], [place] [address]- 7121 Apr, [facility] [address] [facility] [id number], [place] [address]- 6181 Apr, [facility] [address] [facility] [id number][place]- 8792 Apr, [facility] [address] [facility] [id number][place] 3151 Apr, [facility] [address] [id number], [place] [address]- 5224 Mar, [facility] [address] [facility] [id number], [place] [address]- 8859 Feb, [facility] [address] [facility] [id number], [place] [address]- 8113 Feb, [facility] [address] [id number], [place] [address]- 8526 September, [facility] [address] [facility] [id number], [place] [address]- 5959 Mar, [facility] [address] [facility] [id number], [place] [address]- 8780 Feb, [facility] [address] [facility] [id number], [place] [address]- 0210 Feb, [facility] [address] [facility] [id number], [place] [address]- 4744 Feb, IMMUNIZATIONS No Known Immunizations SOCIAL HISTORY Never Assessed REASON FOR VISIT PALS refill request PLAN OF CARE VITAL SIGNS MEDICATIONS Unknown [...] Hospitalization History foot fracture Hospitalization History Via [facility]- Back Pain 03/24/2017
--- OUTSIDE RECORDS SUMMARY | 2018-04-10 18:27 | XMS REPORT ---
Author Author GELY SHAY Organization [facility] Address [address] [place] [address] Care Team Providers Care Home Health Rn Name Role Phone GELY SHAY Unavailable PROBLEMS Type Condition ICD9-CM Code VQQ81-JA Code Onset Dates Condition Status SNOMED Code Problem Color blindness H53.50 Active 001004078 Problem Presbyopia of both eyes H52.4 Active 40811519 Problem Nuclear senile cataract of both eyes H25.13 Active 633406504 Problem Astigmatism of both eyes, unspecified type H52.203 Active 70859413 Problem Overactive bladder N32.81 Active 323218522 Problem Essential hypertension I10 Active 86349813 Problem Other chronic pain G89.29 Active 31579708 Problem Hypermetropia of both eyes H52.03 Active 99701240 Problem Alzheimer's disease, unspecified G30.9 Active 598064907 Problem Mild episode of recurrent major depressive disorder F33.0 Active 940286644 Problem 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 Active 572156317 Problem Major depressive disorder, single episode, mild F32.0 Active 23240897 Problem Chronic fatigue R53.82 Active 57562360 Problem Hydrocele, unspecified hydrocele type N43.3 Active 38280469 Problem Other acute pulmonary embolism without acute cor pulmonale I26.99 Active 390536921 Problem 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 Active 667306584 Problem Asymptomatic microscopic hematuria R31.21 Active 649004143 Problem Gait instability R26.81 Active 29138528 Problem PVD (peripheral vascular disease) I73.9 Active 497810226 Problem At high risk for falls Z91.81 Active [id number] Problem 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 Active 05411313 Problem Benign non-nodular prostatic hyperplasia with lower urinary tract symptoms N40.1 Active 879382659 Problem Alzheimers disease with late onset G30.1 Active 451363526 Problem Renal cyst, left Q61.00 Active 72250701 Problem Mixed hyperlipidemia E78.2 Active 077169618 Problem Anxiety F41.9 Active 83964851 Problem Transient cerebral ischemia, unspecified transient cerebral ischemia type G45.9 Active 019148287 Problem Primary insomnia F51.01 Active 657508758 ALLERGIES No Information ENCOUNTERS Encounter Location Date Diagnosis [facility] [id number] [place] [address] 12211- 5396 Dec, [facility] [address] 93632- 4846 Nov, [facility] [address] 82639- 5367 Oct, Edema leg R60.0 [facility] [address] 18002- 7811 September, [facility] [address] 25524- 9525 September, Alzheimers disease with late onset G30.1 and Mild episode of recurrent major depressive disorder F33.0 [facility] [address] 73256- 5437 September, PVD (peripheral vascular disease) I73.9 ; Major depressive disorder, single episode, mild F32.0 ; Chronic fatigue R53.82 ; Weight gain R63.5 and Arthralgia, unspecified joint M25.50 [facility] [id number] [place] [address] 68543- 2506 Aug, Acute low back pain, unspecified back pain laterality, with sciatica presence unspecified M54.5 [facility] [id number] [place] [address] 53204- 0618 Aug, Acute low back pain, unspecified back pain laterality, with sciatica presence unspecified M54.5 [facility] [id number] [place] [address] 86342- 5400 Aug, Pain R52 [facility] [address] [place] [address]- 7845 Jul, [facility] [id number] [place] [address] 05876- 5644 Jun, [facility] [id number] [place] [address] 94248- 6866 07 Jun, 2017 Medicare annual wellness visit, initial Z00.00 ; Mixed hyperlipidemia E78.2 ; Essential hypertension I10 ; Anxiety F41.9 ; Alzheimers disease with late onset G30.1 ; 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 ; Overactive bladder N32.81 ; Primary insomnia F51.01 ; At high risk for falls Z91.81 and Encounter for immunization Z23 [facility] [id number] [place] [address] 74478- 6316 May, [facility] [facility] [address] 74823- 4491 May, Essential hypertension I10 and Transient cerebral ischemia, unspecified transient cerebral ischemia type G45.9 [facility] [place] [facility] [id number] [place] [address] [id number] May, Dental examination Z01.20 and Dental caries K02.9 [facility] [id number] [place] [address] 46278- 6414 May, [facility] [id number] [place] [address] 82103- 2952 May, [facility] [id number] [place] [address] 36052- 8668 May, Alzheimers disease with late onset G30.1 [facility] [id number] [place] [address] 19210- 9118 Apr, [facility] [address] 97956- 3296 Apr, Alzheimers disease with late onset G30.1 and Mild episode of recurrent major depressive disorder F33.0 [place] [address] [place] [address] 1948 Mar, Mild episode of recurrent major depressive disorder F33.0 [facility] [address] 93945- 5244 Mar, Mixed hyperlipidemia E78.2 ; Essential hypertension I10 ; Asymptomatic microscopic hematuria R31.21 and Renal cyst, left Q61.00 [facility] [address] 57653- 4558 Mar, [facility] [address] 36264- 2214 Feb, Encounter for immunization Z23 [facility] [address] 66892- 1187 Feb, [facility] [address] 23624- 7993 Feb, [facility] [address] 84208 -0643 Feb, ANUG (acute necrotizing ulcerative gingivitis) A69.1 [facility] [id number] [place] [address] 80683- 6009 Feb, [facility] [id number] [place] [address] 79963- 1470 Feb, Mild episode of recurrent major depressive disorder F33.0 [facility] [id number] [place] [address] 43850- 6542 Feb, Alzheimers disease with late onset G30.1 and Mild episode of recurrent major depressive disorder F33.0 [facility] [id number] [place] [address] 16638- 4233 Jan, Alzheimers disease with late onset G30.1 [facility] [id number] [place] [address] 36073- 3964 18 Jan, 2017 Gait instability R26.81 [facility] [employer] [id number] [address] Jan [facility] [id number] [id number] [place] [address] Dec [facility] [address] [address]- 6359 Dec, [facility] [address] [address]- 4598 Dec, [facility] [address] [place] [address] 28098- 9940 Dec, Essential hypertension I10 ; Transient cerebral ischemia, unspecified transient cerebral ischemia type G45.9 and Anxiety F41.9 [facility] [address] [place] [address] 11313- 2408 Dec, Gait instability R26.81 [facility] [address] [place] [address] 12355- 7154 Dec, [facility] [address] [place] [address] 85792- 2233 Nov, Alzheimers disease with late onset G30.1 and Mild episode of recurrent major depressive disorder F33.0 [facility] [address] [address]- 2073 Nov, [facility] [address] [address]- 7549 Nov, Gait instability R26.81 [facility] [address] [place] [address] 63284- 6770 Nov, Anxiety F41.9 [facility] [address] [address]- 9302 Nov, [facility] [address] [address]- 7063 Nov, [facility] [address] [address]- 4730 Oct, Gait instability R26.81 [facility] [id number] [place] [address] 99942- 5913 14 Oct, 2016 Anxiety F41.9 [facility] [id number] [place] [address] 23489- 3238 13 Oct, 2016 Gait instability R26.81 [facility] [id number] [place] [address] 99467- 3172 Oct, Gait instability R26.81 [facility] [id number] [place] [address] 87842- 5392 Oct, [facility] [id number] [place] [address] 57305- 9620 Oct, Anxiety F41.9 ; Chronic 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 use Z79.899 ; Encounter for immunization Z23 and Transient cerebral ischemia, unspecified transient cerebral ischemia type G45.9 [facility] [id number] [place] [address] 64200- 3732 September, [facility] [id number] [place] [address] 85805- 5405 September, Gait instability R26.81 [facility] [id number] [place] [address] 40553- 2632 September, [facility] [id number] [place] [address] 51507- 7118 September, [facility] [id number] [place] [address] 40269- 5467 September, [facility] [id number] [place] [address] 59081- 4361 September, Alzheimers disease with late onset G30.1 and Mild episode of recurrent major depressive disorder F33.0 [facility] [id number] [place] [address] 79376- 7975 September, [facility] [id number] [place] [address] 75342- 0540 September, [facility] [id number] [address]- 3505 September, [facility] [id number] [address]- 4593 September, Mild episode of recurrent major depressive disorder F33.0 [facility] [id number] [address]- 5216 Aug, Mild episode of recurrent major depressive disorder F33.0 ; Alzheimers disease with late onset G30.1 ; Other acute pulmonary embolism without acute cor pulmonale I26.99 and Cough R05 [facility] [address] [address]- 5819 Aug, [facility] [id number] [place] [address] 23800- 8870 Aug, Gait instability R26.81 [facility] [address] [address]- 5177 Aug, Alzheimers disease with late onset G30.1 and Mild episode of recurrent major depressive disorder F33.0 [facility] [address] [address]- 1396 Aug, [facility] [id number] [address]- 0295 Aug, 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 [facility] [address] [address]- 1394 Jul, Alzheimers disease with late onset G30.1 [facility] [id number] [address]- 3775 Jul, [facility] [id number] [address]- 8679 Jul, 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 [facility] [id number] [address]- 7074 Jul, Anxiety F41.9 ; Alzheimers disease with late onset G30.1 and Transient cerebral ischemia, unspecified transient cerebral ischemia type G45.9 [facility] [id number] [place] [address] 59471- 7900 Jun, Essential hypertension I10 [facility] [id number] [place] [address] 18383- 3055 Jun, [facility] [id number] [place] [address] 14488- 3270 Jun, [facility] [id number] [place] [address] 59015- 3336 Jun, [facility] [id number] [place] [address] 68466- 1541 Jun, Essential hypertension I10 ; Benign non-nodular prostatic hyperplasia with lower urinary tract symptoms N40.1 ; Anxiety F41.9 ; Pain in right knee M25.561 ; Pain in left knee M25.562 and Other chronic pain G89.29 [facility] [id number] [place] [address] 44697- 5806 May, [facility] [id number] [place] [address] 49810- 6923 May, [facility] [id number] [place] [address] 54717- 0321 May, [facility] [id number] [place] [address] 86481- 5877 Apr, [facility] [id number] [place] [address] 09803- 0991 Mar, [facility] [id number] [place] [address] 08284- 3321 Mar, Mixed hyperlipidemia E78.2 and Essential hypertension I10 [facility] [id number] [place] [address] 11435- 0099 Feb, [facility] [id number] [place] [address] 73312- 5295 Feb, Ingrown nail L60.0 and Onychomycosis B35.1 [facility] [id number] [place] [address] 17370- 2988 Feb, Paronychia, left L03.012 [facility] [id number] [place] [address] 41638- 5603 Jan, [facility] [address] 20911- 0326 Jan, Cramps of right lower extremity R25.2 and Mixed hyperlipidemia E78.2 [facility] [id number] [place] [address] 83479- 6742 Jan, Cramps of right lower extremity R25.2 ; Essential hypertension I10 ; Mixed hyperlipidemia E78.2 ; Chronic 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 use Z79.899 and Claudication I73.9 [facility] [id number] [place] [address] 00565- 7660 Jan, Right leg pain M79.604 [facility] [id number] [place] [address] 99665- 4885 Dec, [facility] [id number] [place] [address] 55060- 2864 Nov, [facility] [id number] [place] [address] 25236- 2441 Nov, [facility] [id number] [place] [address] 38158- 1768 Nov, [facility] [id number] [place] [address] 57864- 1481 Nov, Dermatofibroma D23.9 [facility] [id number] [place] [address] 40260- 4822 Nov, [facility] [address] [place] [address] 71069- 5775 Oct, [facility] [id number] [address]- 0365 Oct, [facility] [id number] [place] [address] 67672- 0885 September, Benign non-nodular prostatic hyperplasia with lower urinary tract symptoms N40.1 ; Essential hypertension I10 ; Overactive bladder N32.81 and Fatigue, unspecified type R53.83 [facility] [id number] [place] [address] 60308- 3042 September, [facility] [id number] [place] [address] 71387- 6505 September, [facility] [id number] [place] [address] 96664- 0842 Aug, [facility] [id number] [place] [address] 64751- 5701 Jul, [facility] [id number] [place] [address] 01654- 4881 Jul, Pelvic pain R10.2 ; Jock itch B35.6 ; Essential hypertension I10 and Hydrocele, unspecified hydrocele type N43.3 [facility] [address] [place] [address] 24720- 9922 Jun, [facility] [address] [address]- 2873 Jun, [facility] [address] [place] [address] 77061- 4194 Jun, Benign non-nodular prostatic hyperplasia with lower urinary tract symptoms N40.1 [facility] [id number] [place] [address] 42089- 7580 Jun, Benign non-nodular prostatic hyperplasia with lower urinary tract symptoms N40.1 [facility] [address] [place] [address] 36901- 2600 Jun, [facility] [id number] [place] [address] 23453- 0687 May, [facility] [id number] [place] [address] 83378- 8281 Apr, [facility] [id number] [place] [address] 60071- 0657 Apr, [facility] [id number] [place] [address] 44583- 7523 Apr, Other acute pulmonary embolism without acute cor pulmonale I26.99 ; Anxiety F41.9 ; 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 and half-way 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 use Z79.899 [facility] [id number] [place] [address] 22345- 7783 Apr, [facility] [id number] [place] [address] 70546- 3699 Apr, [facility] [address] 61689- 6534 Mar, [facility] [id number] [place] [address] 37854- 3451 Mar, [facility] [id number] [place] [address] 79114- 6054 Feb, Cough R05 [facility] [id number] [place] [address] 32498- 2220 Feb, [facility] [id number] [place] [address] 51689- 8246 Feb, Encounter for immunization Z23 [facility] [id number] [place] [address] 64698- 0152 Feb, Other and unspecified hyperlipidemia 272.4 [facility] [id number] [place] [address] 94419- 4963 Jan, [facility] [id number] [place] [address] 60492- 1117 Jan, TIA (transient ischemic attack) 435.9 [facility] [address] [address]- 4760 Dec, [facility] [address] [place] [address] 54363- 5398 Dec, [facility] [address] [address]- 7082 Dec, [facility] [id number] [place] [address] 39828- 1337 Nov, [facility] [id number] [place] [address] 06202- 4776 Oct, Chronic cough 786.2 [facility] [id number] [place] [address] 20955- 6949 Oct, [facility] [id number] [place] [address] 20670- 7949 Oct, [facility] [id number] [place] [address] 07419- 1603 Oct, [facility] [address] [address]- 0741 Oct, [facility] [address] [place] [address] 54710- 9699 Oct, Chronic cough 786.2 [facility] [address] [address]- 3757 Oct, Cough 786.2 ; Hypertension 401.9 ; BPH (benign prostatic hyperplasia) 600.00 ; Other and unspecified hyperlipidemia 272.4 and Hydrocele 603.9 [facility] [address] [address]- 7331 Oct, [facility] [id number] [place] [address] 17368- 1447 September, [facility] [address] [address]- 1618 Aug, [facility] [id number] [place] [address]- 8855 13 Aug, 2014 [facility] [place] [facility] [address] [id number] [place] [address]- 7969 Jul, [facility] [place] [facility] [address] [id number] [place] [address]- 6524 Jul, [facility] [place] [facility] [address] [facility] [id number] [place] [address]- 3442 Jul, [facility] [place] [facility] [address] [id number] [place] [address]- 5521 Jul, [facility] [place] [facility] [address] [id number] [place] [address]- 4935 Jul, [facility] [place] [facility] [address] [id number] [place] [address]- 7877 Jun, 2014 [facility] [place] [facility] [address] [facility] [id number] [place] [address]- 2460 Jun, 2014 [facility] [place] [facility] [address] [facility] [id number] [place] [address]- 1848 Jun, [facility] [place] [facility] [address] [facility] [id number] [place] [address]- 9562 Jun, 2014 [facility] [place] [facility] [address] [facility] [id number] [place] [address]- 8313 Jun, 2014 [facility] [place] [facility] [address] [facility] [id number] [place] [address] Jun, 2014 [facility] [place] [facility] [address] [id number] [place] [address] Jun, 2014 [facility] [place] [facility] [address] [id number] [place] [address] Jun, [facility] [place] [facility] [address] [facility] [id number] [place] [address] May, [facility] [place] [facility] [address] [facility] [id number] [place] [address] May, [facility] [place] [facility] [address] [id number] [place] [address] May, [facility] [place] [facility] [address] [id number] [place] [address] May, [facility] [place] [facility] [address] [id number] [place] [address] May, [facility] [place] [facility] [address] [id number] [place] [address] May, [facility] [place] [facility] [address] [id number] [place] [address] May, [facility] [place] [facility] [address] [id number] [place] [address] May, [facility] [place] [facility] [address] [id number] [place] [address] May, [facility] [place] [facility] [address] [id number] [place] [address] May, [facility] [place] [facility] [address] [id number] [place] [address] Apr, [facility] [place] [facility] [address] [id number] [place] [address] Apr, [facility] [place] [facility] [address] [id number] [place] [address] Apr, [facility] [place] [facility] [address] [id number] [place] [address] Apr, [facility] [place] [facility] [address] [id number] [place] [address]- 2021 Apr, [facility] [place] [facility] [address] [id number] [place] [address] Apr, [facility] [place] [facility] [address] [id number] [place] [address] Apr, [facility] [place] [facility] [address] [id number] [place] [address]- [address] Apr, [facility] [place] [facility] [address] [id number] [place] [address] Mar, [facility] [place] [facility] [address] [id number] [place] [address] Mar, [facility] [place] [facility] [address] [id number] [place] [address] Mar, [facility] [place] [facility] [address] [id number] [place] [address] Mar, [facility] [place] [facility] [address] [id number] [place] [address] Mar, [facility] [place] [facility] [address] [id number] [place] [address] Mar, [facility] [place] [facility] [address] [id number] [place] [address] Mar, [facility] [place] [facility] [address] [id number] [place] [address] Mar, [facility] [place] [facility] [address] [id number] [place] [address]- [address]797 Mar, [facility] [place] [facility] [address] [id number] [place] [address]- 1695 Mar, [facility] [place] [facility] [address] [id number] [place] [address] 286[address] Feb, [facility] [place] [facility] [address] [id number] [place] [address] Feb, [facility] [place] [facility] [address] [id number] [place] [address]- 164[address] Feb, [facility] [place] [facility] [address] [id number] [place] [address] 99[address] Feb, [facility] [place] [facility] [address] [id number] [place] [address]- 3471 Feb, [facility] [place] [facility] [address] [id number] [place] [address]- [address] 14 Feb, 2014 [facility] [place] [facility] [address] [id number] [place] [address]- [address] 30 Jan, 2013 [facility] [place] [facility] [address] [id number] [place] [address]- 6313 30 Jan, 2013 [facility] [place] [facility] [address] [id number] [place] [address]- 8524 24 Jan, 2013 [facility] [place] [facility] [address] [id number] [place] [address]- [address]111 24 Jan, 2013 [facility] [place] [facility] [address] [id number] [place] [address]- 0758 19 Jan, 2013 [facility] [place] [facility] [address] [id number] [place] [address]- 0948 19 Jan, 2013 [facility] [place] [facility] [address] [id number] [place] [address]- 6942 16 Jan, 2013 [facility] [place] [facility] [address] [id number] [place] [address]- 0012 16 Jan, 2013 [facility] [place] [facility] [address] [id number] [place] [address]- 6560 16 Jan, 2013 [facility] [place] [facility] [address] [id number] [place] [address]- 0767 16 Jan, 2013 [facility] [place] [facility] [address] [id number] [place] [address]- 7616 12 Jan, 2013 [facility] [place] [facility] [address] [id number] [place] [address]- 6827 12 Jan, 2014 [facility] [place] [facility] [address] [id number] [place] [address] 4715 Dec, [facility] [place] [facility] [address] [id number] [place] [address]- 5760 Dec, [facility] [place] [facility] [address] [id number] [place] [address]- 9650 Dec, [facility] [place] [facility] [address] [id number] [place] [address]- 38[address] Dec, [facility] [place] [facility] [address] [id number] [place] [address]- 6949 Dec, [facility] [place] [facility] [address] [id number] [place] [address]- 6260 Dec, [facility] [place] [facility] [address] [id number] [place] [address]- 8646 Nov, [facility] [place] [facility] [address] [id number] [place] [address]- 6916 Nov, [facility] [place] [facility] [address] [id number] [place] [address]- 0536 Nov, [facility] [place] [facility] [address] [id number] [place] [address]- 9009 Nov, [facility] [place] [facility] [address] [id number] [place] [address]- 7511 Nov, [facility] [place] [facility] [address] [id number] [place] [address]- 7859 Nov, [facility] [place] [facility] [address] [id number] [place] [address]- 8670 Nov, [facility] [place] [facility] [address] [id number] [place] [address]- 5316 Nov, [facility] [place] [facility] [address] [id number] [place] [address]- 3237 Oct, [facility] [place] [facility] [address] [id number] [place] [address]- 2417 Oct, [facility] [place] [facility] [address] [id number] [place] [address]- 3146 Oct, [facility] [place] [facility] [address] [id number] [place] [address]- 9256 Oct, [facility] [place] [facility] [address] [id number] [place] [address]- 4138 September, [facility] [address] [id number] [place] [address]- 2817 September, [facility] [address] [id number] [place] [address]- 3690 September, [facility] [address] [id number] [place] [address]- 5215 September, [facility] [address] [id number] [place] [address]- 3740 September, [facility] [address] [id number] [place] [address]- 1526 September, [facility] [address] [id number] [place] [address]- 3773 Aug, [facility] [address] [id number] [place] [address]- 8781 Aug, [facility] [address] [id number] [place] [address]- 8685 Aug, [facility] [address] [id number] [place] [address]- 4256 Aug, [facility] [address] [id number] [place] [address]- 2013 Aug, [facility] [place] [facility] [address] [id number] [place] [address]- 8385 Aug, [facility] [address] [id number] [place] [address]- 9784 Aug, [facility] [place] [facility] [address] [id number] [place] [address] Aug, [facility] [place] [facility] [address] [id number] [place] [address] 5919 Jul, [facility] [place] [facility] [address] [id number] [place] [address]- 0839 Jul, [facility] [place] [facility] [address] [id number] [place] [address]- 1123 Jun, [facility] [place] [facility] [address] [id number] [place] [address]- 0019 Jun, [facility] [place] [facility] [address] [id number] [place] [address]17 Jun, [facility] [place] [facility] [address] [id number] [place] [address]- 6485 Jun, [facility] [place] [facility] [address] [id number] [place] [address]- 6932 Jun, [facility] [place] [facility] [address] [id number] [place] [address]- 1316 May, [facility] [place] [facility] [address] [id number] [place] [address]- 2340 May, [facility] [place] [facility] [address] [id number] [place] [address] 0337 May, [facility] [place] [facility] [address] [facility] [id number] [place] [address]- 3096 May, [facility] [place] [facility] [address] [facility] [id number] [place] [address]- 3273 Apr, [facility] [place] [facility] [address] [id number] [place] [address]- 3863 Apr, [facility] [place] [facility] [address] [id number] [place] [address]- 2291 Mar, [facility] [place] [facility] [address] [id number] [place] [address]- 9434 Mar, [facility] [place] [facility] [address] [id number] [place] [address]- 4128 Feb, [facility] [place] [facility] [address] [facility] [id number] [place] [address]- 8232 Feb, [facility] [place] [facility] [address] [id number] [place] [address]- 2918 Feb, [facility] [place] [facility] [address] [id number] [place] [address]- 1262 Feb, [facility] [place] [facility] [address] [id number] [place] [address]- 9147 Feb, [facility] [place] [facility] [address] [id number] [place] [address]- 5354 Feb, [facility] [place] [facility] [address] [id number] [place] [address]- 1731 Feb, [facility] [place] [facility] [address] [id number] [place] [address]- 9340 Jan, [facility] [place] [facility] [address] [id number] [place] [address]- 1056 Jan, [facility] [place] [facility] [address] [id number] [place] [address]- 1256 Dec, [facility] [place] [facility] [address] [id number] [place] [address]- 4707 Dec, [facility] [place] [facility] [address] [id number] [place] [address]- 9965 Dec, [facility] [place] [facility] [address] [id number] [place] [address]- 5895 Dec, [facility] [place] [facility] [address] [id number] [place] [address]- 2103 Dec, [facility] [place] [facility] [address] [id number] [place] [address]- 9954 Nov, [facility] [place] [facility] [address] [id number] [place] [address]- 5735 Nov, [facility] [place] [facility] [address] [id number] [place] [address]- 4468 Nov, [facility] [place] [facility] [address] [id number] [place] [address]- 8307 Oct, [facility] [place] [facility] [address] [id number] [place] [address]- 9308 Oct, [facility] [address] [id number] [place] [address]- 4757 Oct, [facility] [address] [id number] [place] [address]- 5035 September, [facility] [address] [id number] [place] [address]- 4244 Aug, [facility] [address] [id number] [place] [address]- 7849 Aug, [facility] [address] [id number] [place] [address]- 2471 Aug, [facility] [address] [id number] [place] [address]- 1279 Jul, [facility] [address] [id number] [place] [address]- 3411 Jul, [facility] [address] [id number] [place] [address]- 2142 Jul, [facility] [address] [id number] [place] [address]- 2288 Jul, [facility] [address] [id number] [place] [address]- 5461 Jul, [facility] [address] [id number] [place] [address]- 3732 Jun, [facility] [place] [facility] [address] [id number] [place] [address]- 0080 Jun, [facility] [place] [facility] [address] [id number] [place] [address]- 3886 May, [facility] [place] [facility] [address] [id number] [place] [address]- 2546 May, [facility] [place] [facility] [address] [id number] [place] [address] 2546 Apr, [facility] [address] [id number] [place] [address] 2546 Apr, [facility] [place] [facility] [address] [id number] [place] [address]- 2546 Mar, [facility] [address] [facility] [id number] [place] [address]- 2546 Mar, [facility] [place] [facility] [address] [id number] [place] [address]- 2546 Mar, [facility] [address] [facility] [id number] [place] [address]- 2546 Mar, [facility] [address] [id number] [place] [id number] Feb, [facility] [address] [id number] [place] [address]- 5176 Feb, [facility] [place] [facility] [address] [facility] [id number] [place] [address]- 1136 Feb, [facility] [address] [id number] [place] [address]- 1756 Feb, [facility] [place] [facility] [address] [id number] [place] [address]- 0096 Feb, [facility] [address] [id number] [place] [address]- 2546 Feb, [facility] [place] [facility] [address] [id number] [place] [address]- 2546 Feb, [facility] [place] [facility] [address] [id number] [place] [address]- 2546 Jan, [facility] [place] [facility] [address] [id number] [place] [address]- 2546 Jan, [facility] [place] [facility] [address] [facility] [id number] [place] [address]- 2546 Dec, [facility] [place] [facility] [address] [id number] [place] [address] 2546 Dec, [facility] [address] [id number] [place] [address]- 5485 Nov, [facility] [place] [facility] [address] [id number] [place] [address] 2546 Oct, [facility] [address] [id number] [place] [address] 2546 September, [facility] [place] [facility] [address] [id number] [place] [address]- 2546 September, [facility] [address] [id number] [place] [address] 2546 September, [facility] [address] [id number] [place] [address]- 9616 Aug, [facility] [address] [id number] [place] [address]- 5178 May, [facility] [address] [id number] [place] [address]- 5520 May, [facility] [address] [id number] [place] [address]- 4415 Apr, [facility] [address] [facility] [id number] [place] [address]- 1436 Apr, [facility] [address] [id number] [place] [address]- 5444 Apr, [facility] [address] [id number] [place] [address]- 2546 Apr, [facility] [place] [facility] [address] [id number] [place] [address]- 2546 Apr, [facility] [place] [facility] [address] [id number] [place] [address]- 2546 Mar, [facility] [address] [id number] [place] [address]- 0426 Feb, [facility] [address] [facility] [id number] [place] [address]- 2559 Feb, [facility] [address] [id number] [place] [address]- 3276 September, [facility] [address] [id number] [place] [address]- 7756 Mar, [facility] [id number] [address]- 5570 Feb, [facility] [address] [id number] [place] [address]- 8820 Feb, [facility] [address] [id number] [place] [address]- 7542 Feb, IMMUNIZATIONS No Known Immunizations SOCIAL HISTORY Never Assessed REASON FOR VISIT PALS med refill PLAN OF CARE VITAL SIGNS MEDICATIONS Unknown [...] foot fracture Hospitalization History Via [facility] [place]- Back Pain 03/24/2017
--- OUTSIDE RECORDS SUMMARY | 2018-04-10 18:29 | XMS REPORT ---
Author Author KENNETH MCQUEEN [facility] Address [address] [place] [address] Care Team Providers Care Hospital Mortician Name Role Phone MCQUEENDANIEAN Unavailable PROBLEMS Type Condition ICD9-CM Code TUU03-TM Code Onset Dates Condition Status SNOMED Code Problem Hypermetropia of both eyes H52.03 Active 47654670 Problem Transient cerebral ischemia, unspecified transient cerebral ischemia type G45.9 Active 572359952 Problem Color blindness H53.50 Active 290109976 Problem Essential hypertension I10 Active 20623496 Problem Presbyopia of both eyes H52.4 Active 83077082 Problem Anxiety F41.9 Active 48508401 Problem Other chronic pain G89.29 Active 63419417 Problem Overactive bladder N32.81 Active 504904596 Problem At high risk for falls Z91.81 Active 025507200654377018 Problem Asymptomatic microscopic hematuria R31.21 Active 180716471 Problem Mixed hyperlipidemia E78.2 Active 149824559 Problem Astigmatism of both eyes, unspecified type H52.203 Active 16963913 Problem Nuclear senile cataract of both eyes H25.13 Active 875402396 Problem 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 Active 021613341 Problem Alzheimer's disease, unspecified G30.9 Active 104150247 Problem Gait instability R26.81 Active 30424370 Problem Mild episode of recurrent major depressive disorder F33.0 Active 226797007 Problem Other acute pulmonary embolism without acute cor pulmonale I26.99 Active 469020029 Problem Hydrocele, unspecified hydrocele type N43.3 Active 11285423 Problem Primary insomnia F51.01 Active 811220915 Problem 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 Active 888007388 Problem 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 Active 37572739 Problem Benign non-nodular prostatic hyperplasia with lower urinary tract symptoms N40.1 Active 315494515 Problem Alzheimers disease with late onset G30.1 Active 158807221 Problem Renal cyst, left Q61.00 Active 27652640 ALLERGIES No Information ENCOUNTERS Encounter Location Date Diagnosis [facility] [id number] [place] [address] 89965- 2766 September, [facility] [id number] [place] [address] 55237- 5820 September, [facility] [id number] [place] [address] 31416- 5904 Aug, Acute low back pain, unspecified back pain laterality, with sciatica presence unspecified M54.5 [facility] [id number] [place] [address] 34205- 4269 Aug, Acute low back pain, unspecified back pain laterality, with sciatica presence unspecified M54.5 [facility] [id number] [place] [address] 54104- 3050 Aug, Pain R52 [facility] [id number] [place] [address] 05953- 5654 Jul, [facility] [id number] [place] [address] 36134- 9410 Jun, [facility] [id number] [place] [address] 65615- 8586 07 Jun, 2017 Mixed hyperlipidemia E78.2 ; [...] Z23 [facility] [id number] [place] [address] 80683- 7840 May, [facility] [id number] [place] [address] 38536- 8073 May, Essential hypertension I10 and Transient cerebral ischemia, unspecified transient cerebral ischemia type G45.9 [facility] [id number] [place] [address] [id number] May, Dental examination Z01.20 and Dental caries K02.9 [place] [facility] [id number] [place] [address] 15380- 8069 May, [facility] [address] 58903- 2117 May, [facility] [facility] [address] 60125- 5669 May, Alzheimers disease with late onset G30.1 [facility] [address] 20708- 9951 Apr, [place] [facility] [address] 92245- 2525 Apr, Alzheimers disease with late onset G30.1 and Mild episode of recurrent major depressive disorder F33.0 [facility] [id number] [place] [address] 56561- 4702 Mar, Mild episode of recurrent major depressive disorder F33.0 [facility] [id number] [place] [address] 60821- 9921 Mar, Mixed hyperlipidemia E78.2 ; Essential hypertension I10 ; Asymptomatic microscopic hematuria R31.21 and Renal cyst, left Q61.00 [id number] [place] [address] 27703- 2544 Mar, [facility] [id number] [place] [address] 78140- 6917 Feb, Encounter for immunization Z23 [place] [facility] [address] 38130- 7402 Feb, [facility] [id number] [place] [address] 21230- 0240 Feb, [facility] [id number] [place] [address] 48642 -4654 Feb, ANUG (acute necrotizing ulcerative gingivitis) A69.1 [facility] [address] [address]- 5690 Feb, [facility] [id number] [place] [address] 54263- 3709 Feb, Mild episode of recurrent major depressive disorder F33.0 [facility] [id number] [place] [address] 20887- 9295 Feb, Alzheimers disease with late onset G30.1 and Mild episode of recurrent major depressive disorder F33.0 [facility] [id number] [place] [address] 93626- 0257 Jan, Alzheimers disease with late onset G30.1 [facility] [id number] [place] [address] 59250- 1244 Jan, Gait instability R26.81 [facility] [address] [id number] [place] [address] Jan [facility] [address] [id number] [place] [address] Dec [facility] [id number] [place] [address] 10301- 4323 Dec, [facility] [address] [address]- 9999 Dec, [facility] [id number] [place] [address] 22644- 5913 Dec, Essential hypertension I10 ; Transient cerebral ischemia, unspecified transient cerebral ischemia type G45.9 and Anxiety F41.9 [facility] [address] [place] [address] 38023- 5860 Dec, Gait instability R26.81 [facility] [id number] [place] [address] 34082- 8788 Dec, [facility] [id number] [place] [address] 20559- 5749 Nov, Alzheimers disease with late onset G30.1 and Mild episode of recurrent major depressive disorder F33.0 [facility] [id number] [place] [address] 14631- 2249 Nov, [facility] [id number] [place] [address] 27527- 8664 Nov, Gait instability R26.81 [facility] [id number] [place] [address] 93664- 7329 Nov, Anxiety F41.9 [facility] [id number] [place] [address] 30097- 4536 Nov, [facility] [id number] [place] [address] 52089- 2433 Nov, [facility] [id number] [place] [address] 03867- 4900 Oct, Gait instability R26.81 [facility] [id number] [place] [address] 46829- 4249 Oct, Anxiety F41.9 [facility] [id number] [place] [address] 35416- 2282 Oct, Gait instability R26.81 [facility] [id number] [place] [address] 32699- 4688 Oct, Gait instability R26.81 [facility] [id number] [place] [address] 33929- 7477 Oct, [facility] [id number] [place] [address] 59883- 9491 Oct, Anxiety F41.9 ; Chronic 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 use Z79.899 ; Encounter for immunization Z23 and Transient cerebral ischemia, unspecified transient cerebral ischemia type G45.9 [facility] [id number] [place] [address] 23202- 0325 September, [facility] [id number] [place] [address] 10767- 8912 September, Gait instability R26.81 [facility] [id number] [address] 3504 September, [facility] [address] [facility] [id number] [address] 8378 September, [facility] [id number] [address]- 9825 September, [facility] [id number], [place] [address]- 9942 September, Alzheimers disease with late onset G30.1 and Mild episode of recurrent major depressive disorder F33.0 [facility] [id number] [address]- 8526 September, [facility] [id number] [address]- 3229 September, [facility] [id number] [address]- 9378 September, [facility] [id number], [place] [address]- 7118 September, Mild episode of recurrent major depressive disorder F33.0 [facility] [address] [address]- 3320 Aug, Mild episode of recurrent major depressive disorder F33.0 ; Alzheimers disease with late onset G30.1 ; Other acute pulmonary embolism without acute cor pulmonale I26.99 and Cough R05 [facility] [address] [facility] [id number] [address]- 9143 Aug, [facility] [id number] [address]- 8345 Aug, Gait instability R26.81 [facility] [id number] [address]- 1808 Aug, Alzheimers disease with late onset G30.1 and Mild episode of recurrent major depressive disorder F33.0 [facility] [address] [address]- 9379 Aug, [facility] [id number] [place] [address] 37818- 8748 Aug, 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 [facility] [id number] [place] [address] 75436- 1116 Jul, Alzheimers disease with late onset G30.1 [place] [id number] [place] [address] 24544- 1979 Jul, [place] [id number] [place] [address] 17740- 1648 Jul, 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 [place] [id number] [place] [address] 71430- 1549 Jul, Anxiety F41.9 ; Alzheimers disease with late onset G30.1 and Transient cerebral ischemia, unspecified transient cerebral ischemia type G45.9 [place] [id number] [place] [address] 44860- 2244 Jun, Essential hypertension I10 [place] [id number] [place] [address] 43983- 0619 Jun, [place] [id number] [place] [address] 18165- 6276 Jun, [facility] [address] [address]- 7816 Jun, [place] [id number] [place] [address] 88053- 6299 Jun, Essential hypertension I10 ; Benign non-nodular prostatic hyperplasia with lower urinary tract symptoms N40.1 ; Anxiety F41.9 ; Pain in right knee M25.561 ; Pain in left knee M25.562 and Other chronic pain G89.29 [place] [id number] [place] [address] 06617- 8137 May, [facility] [id number] [place] [address] 65477- 3248 May, [facility] [id number] [place] [address] 64996- 1875 May, [facility] [id number] [place] [address] 65471- 7840 Apr, [facility] [id number] [place] [address] 50556- 9785 Mar, [facility] [address] 32587- 4582 Mar, Mixed hyperlipidemia E78.2 and Essential hypertension I10 [place] [id number] [place] [address] 09958- 5216 Feb, [facility] [address] 27795- 1788 Feb, Ingrown nail L60.0 and Onychomycosis B35.1 [place] [id number] [place] [address] 61558- 3634 Feb, Paronychia, left L03.012 [facility] [id number] [place] [address] 17037- 2906 Jan, [facility] [id number] [place] [address] 04035- 5061 Jan, Mixed hyperlipidemia E78.2 and Cramps of right lower extremity R25.2 [facility] [id number] [place] [address] 01766- 0902 Jan, Cramps of right lower extremity R25.2 ; Essential hypertension I10 ; Mixed hyperlipidemia E78.2 ; Chronic 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 use Z79.899 and Claudication I73.9 [facility] [id number] [place] [address] 93947- 4414 Jan, 2016 Right leg pain M79.604 [facility] [address], [place] [address]- 5515 Dec, [facility] [id number] [address]- 2503 Nov, [facility] [address], [place] [address]- 3988 Nov, [facility] [id number] [place] [address] 87167- 6356 Nov, [facility] [id number] [place] [address] 33007- 2548 Nov, Dermatofibroma D23.9 [facility] [id number] [place] [address] 25847- 1648 Nov, [facility] [id number] [place] [address] 18369- 7198 Oct, [facility] [id number] [address]- 2768 Oct, [facility] [address], [place] [address]- 0116 September, Benign non-nodular prostatic hyperplasia with lower urinary tract symptoms N40.1 ; Essential hypertension I10 ; Overactive bladder N32.81 and Fatigue, unspecified type R53.83 [facility] [address], [place] [address]- 2248 September, [facility] [address], [place] [address]- 1822 September, [facility] [address], [place] [address]- 7972 Aug, [facility] [address], [place] [address]- 3176 Jul, [facility] [address], [place] [address]- 3684 Jul, Pelvic pain R10.2 ; Jock itch B35.6 ; Essential hypertension I10 and Hydrocele, unspecified hydrocele type N43.3 [facility] [id number] [place] [address] 54419- 8155 Jun, [facility] [id number] [place] [address] 91058- 0528 Jun, [facility] [id number] [place] [address] 44457- 7183 Jun, Benign non-nodular prostatic hyperplasia with lower urinary tract symptoms N40.1 [facility] [id number] [place] [address] 44000- 6258 Jun, Benign non-nodular prostatic hyperplasia with lower urinary tract symptoms N40.1 [facility] [id number] [place] [address] 83241- 3846 Jun, [facility] [id number] [place] [address] 31681- 6124 May, [facility] [id number] [place] [address] 10475- 0871 Apr, [facility] [id number] [place] [address] 12039- 4259 Apr, [facility] [id number] [place] [address] 65748- 3665 Apr, Other acute pulmonary embolism without acute cor pulmonale I26.99 ; Anxiety F41.9 ; 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 and 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 [facility] [id number] [place] [address] 31086- 9089 Apr, [facility] [id number] [place] [address] 76209- 6830 Apr, [facility] [id number] [place] [address] 18121- 3548 Mar, [facility] [address], [place] [address]- 1561 Mar, [facility] [id number] [place] [address] 92735- 0870 Feb, Cough R05 [facility] [id number] [place] [address] 04775- 0882 Feb, [facility] [id number] [place] [address] 45551- 8616 Feb, Encounter for immunization Z23 [facility] [id number] [place] [address] 17295- 9342 Feb, Other and unspecified hyperlipidemia 272.4 [facility] [id number] [place] [address] 21539- 8093 Jan, [facility] [id number] [place] [address] 02479- 8002 Jan, TIA (transient ischemic attack) 435.9 [facility] [id number] [place] [address] 52996- 6663 Dec, [facility] [id number] [place] [address] 32662- 1118 Dec, [facility] [id number] [address]- 1450 Dec, [facility] [id number] [place] [address] 47700- 9658 Nov, [facility] [address], [place] [address]- 8039 Oct, Chronic cough 786.2 [facility] [id number] [place] [address] 86062- 7852 Oct, [facility] [id number] [address]- 4106 Oct, [facility] [id number] [place] [address] 23088- 0176 Oct, [facility] [address], [place] [address]- 9025 Oct, [facility] [address], [place] [address]- 3499 Oct, Chronic cough 786.2 [facility] [address], [place] [address]- 0298 Oct, Cough 786.2 ; Hypertension 401.9 ; BPH (benign prostatic hyperplasia) 600.00 ; Other and unspecified hyperlipidemia 272.4 and Hydrocele 603.9 [facility] [address], [place] [address]- 3439 Oct, [facility] [address], [place] [address]- 3948 September, [facility] [address], [place] [address]- 7821 Aug, [facility] [address], [place] [address]- 2690 Aug, [facility] [address], [place] [address]- 4308 Jul, [facility] [address], [place] [address]- 9443 Jul, [facility] [address], [place] [address]- 7616 Jul, [facility] [address], [place] [address]- 1261 Jul, [facility] [address] 7918 Jul, [facility] [address] 9376 Jun, [facility] [address], [place] [address]- 7378 Jun, [facility] [address] [place] [address]- 1020 Jun, 2014 [facility] [place] [facility] [address] [id number] [place] [address]- 9714 Jun, 2014 [facility] [place] [facility] [address] [id number] [place] [address]- 1926 Jun, 2014 [facility] [place] [facility] [address] [id number] [place] [address]- 5263 Jun, 2014 [facility] [place] [facility] [address] [id number] [place] [address]- 4658 Jun, [facility] [place] [facility] [address] [id number] [place] [address]- 2838 Jun, [facility] [place] [facility] [address] [id number] [place] [address]- 8080 May, [facility] [place] [facility] [address] [id number] [place] [address]- 6288 May, [facility] [place] [facility] [address] [id number] [place] [address]- 7731 May, [facility] [place] [facility] [address] [id number] [place] [address]- [address] May, [facility] [place] [facility] [address] [id number] [place] [address] May, [facility] [place] [facility] [address] [id number] [place] [address] May, [facility] [place] [facility] [address] [id number] [place] [address] May, [facility] [place] [facility] [address] [id number] [place] [address] May, [facility] [place] [facility] [address] [id number] [place] [address] May, [facility] [place] [facility] [address] [id number] [place] [address] May, [facility] [place] [facility] [address] [id number] [place] [address] Apr, [facility] [place] [facility] [address] [id number] [place] [address] Apr, [facility] [place] [facility] [address] [facility] [id number] [place] [address] Apr, [facility] [place] [facility] [address] [id number] [place] [address] Apr, [facility] [place] [facility] [address] [id number] [place] [address] Apr, [facility] [place] [facility] [address] [id number] [place] [address] Apr, [facility] [place] [facility] [address] [id number] [place] [address] Apr, [facility] [place] [facility] [address] [id number] [place] [address] Apr, [facility] [place] [facility] [address] [id number] [place] [address] Mar, [facility] [place] [facility] [address] [id number] [place] [address] Mar, [facility] [place] [facility] [address] [id number] [place] [address] Mar, [facility] [place] [facility] [address] [id number] [address] Mar, [facility] [place] [facility] [address] [id number] [place] [address] Mar, [facility] [place] [facility] [address] [id number] [place] [address] Mar, [facility] [place] [facility] [address] [id number] [place] [address] Mar, [facility] [place] [facility] [address] [id number] [place] [address]- [address] Mar, [facility] [place] [facility] [address] [id number] [place] [address] Mar, [facility] [place] [facility] [address] [id number] [place] [address] Mar, [facility] [facility] [address] [id number] [place] [address] 30 Feb, 2014 [facility] [place] [facility] [address] [id number] [place] [address] 30 Feb, 2014 [facility] [place] [facility] [address] [id number] [place] [address] Feb, [facility] [place] [facility] [address] [id number] [place] [address] Feb, [facility] [place] [facility] [address] [id number] [place] [address] 77[address] Feb, [facility] [place] [facility] [address] [id number] [place] [address] 14 Feb, 2014 [facility] [place] [facility] [address] [id number] [place] [address] 30 Jan, 2013 [facility] [place] [facility] [address] [id number] [place] [address] 30 Sep, 2013 [facility] [place] [facility] [address] [id number] [place] [address]49 24 Sep, 2013 [facility] [place] [facility] [address] [id number] [place] [address]41 24 Sep, 2013 [facility] [place] [facility] [address] [id number] [place] [address] 19 Sep, 2013 [facility] [place] [facility] [address] [id number] [place] [address] 19 Sep, 2013 [facility] [place] [facility] [address] [id number] [place] [address]28 16 Jan, 2014 [facility] [place] [facility] [address] [id number] [place] [address] 16 Jan, 2013 [facility] [place] [facility] [address] [id number] [place] [address] 8755 Jan, [facility] [place] [facility] [address] [id number] [place] [address] 8791 Jan, [facility] [place] [facility] [address] [id number] [place] [address]- 0215 Jan, [facility] [place] [facility] [address] [id number] [place] [address]- 9525 Jan, [facility] [place] [facility] [address] [id number] [place] [address]- 7452 Dec, [facility] [place] [facility] [address] [id number] [place] [address]- 4127 Dec, [facility] [place] [facility] [address] [id number] [place] [address]- 6101 Dec, [facility] [place] [facility] [address] [id number] [place] [address]- 4682 Dec, [facility] [place] [address] [id number] [place] [address]- 4073 Dec, [facility] [place] [facility] [address] [id number] [place] [address]- 3561 Dec, [facility] [place] [facility] [address] [id number] [place] [address] 2196 Nov, [facility] [place] [facility] [address] [id number] [place] [address] 4153 Nov, [facility] [address] [id number] [place] [address]- 6429 Nov, [facility] [place] [address] [id number] [place] [address]- 7426 Nov, [facility] [place] [facility] [address] [id number] [place] [address]- 9121 Nov, [facility] [place] [address] [id number] [place] [address]- 7995 Nov, [facility] [address] [id number] [place] [address]- 6425 Nov, [facility] [place] [address] [id number] [place] [address]- 3072 Nov, [facility] [address] [id number] [place] [address]- 0447 Oct, [facility] [address] [id number] [place] [address]- 9522 Oct, [facility] [address] [id number] [place] [address]- 4724 Oct, [facility] [facility] [address] [id number] [place] [address]- 4098 Oct, [facility] [place] [facility] [address] [id number] [place] [address]- 0010 September, [facility] [place] [facility] [address] [id number] [place] [address]- 9040 September, [facility] [address] [id number] [place] [address]- 6883 September, [facility] [address] [id number] [place] [address]- 0615 September, [facility] [address] [id number] [place] [address]- 9786 September, [facility] [address] [id number] [place] [address]- 4082 September, [facility] [address] [id number] [place] [address]- 4490 Aug, [facility] [address] [id number] [place] [address]- 6[address] Aug, [facility] [address] [id number] [place] [address]- 8431 Aug, [facility] [address] [id number] [place] [address]- 0997 Aug, [facility] [address] [id number] [place] [address]- 1408 Aug, [facility] [address] [id number] [place] [address]- 4673 Aug, [facility] [address] [id number] [place] [address]- 3344 Aug, [facility] [address] [id number] [place] [address]- 5745 Aug, [facility] [address] [facility] [id number] [place] [address]- 6116 Jul, [facility] [address] [id number] [place] [address]- 9591 Jul, [facility] [address] [id number] [place] [address]- 3224 Jun, [facility] [address] [id number] [place] [address] 4543 Jun, [facility] [address] [id number] [place] [address] 5850 Jun, [facility] [address] [id number] [place] [address]- 3611 Jun, [facility] [address] [id number] [place] [address]- 5011 Jun, [facility] [address] [id number] [place] [address]- 3149 May, [facility] [address] [id number] [place] [address]- 9998 May, [facility] [address] [id number] [address]776 May, [facility] [address] [id number] [place] [address]- 5919 May, [facility] [address] [id number] [place] [address]- 4073 Apr, [facility] [address] [id number] [place] [address]- 9122 Apr, [facility] [address] [id number], [place] [address]- 6[address] Mar, [facility] [address] [id number] [place] [address]- 5680 Mar, [facility] [address] [id number] [place] [address] Feb, [facility] [address] [id number] [place] [address]- 4941 Feb, [facility] [address] [id number] [place] [address]- 4227 Feb, [facility] [address] [id number] [place] [address]- 3485 Feb, [facility] [address] [id number] [place] [address]- 2287 Feb, [facility] [address] [id number] [address]- 4350 Feb, [facility] [address] [id number], [place] [address]- 8537 Feb, [facility] [address] [id number] [place] [address]- 6556 Jan, [facility] [address] [id number] [address]- 4555 Jan, [facility] [address] [id number] [place] [address] 2548 Dec, [facility] [address] [id number] [place] [address]- 7907 Dec, [facility] [address] [id number] [place] [address]- 4059 Dec, [facility] [address] [id number] [place] [address]- 1057 Dec, [facility] [address] [id number] [place] [address]- 3006 Dec, [facility] [address] [id number] [place] [address]- 7480 Nov, [facility] [address] [id number] [place] [address]- 3199 Nov, [facility] [address] [id number] [place] [address]- 1835 Nov, [facility] [address] [id number] [place] [address]- 5041 Oct, [facility] [address] [id number] [place] [address]- 8327 Oct, [facility] [address] [id number] [place] [address]- 9096 Oct, [facility] [address] [id number] [place] [address]- 4575 September, [facility] [address] [id number] [place] [address]- 0769 Aug, [facility] [address] [id number] [place] [address]- 8410 Aug, [facility] [address] [id number] [place] [address]- 9465 Aug, [facility] [address] [id number] [place] [address]- 2542 Jul, [facility] [address] [id number] [place] [address]- 0400 Jul, [facility] [address] [id number] [place] [address]- 6386 15 Jul, 2012 [facility] [address] [id number] [place] [address]- 6246 Jul, [facility] [address] [facility] [id number] [place] [address]- 6176 Jul, [facility] [address] [id number] [place] [address]- 9856 Jun, [facility] [address] [id number] [place] [address]- 3736 Jun, [facility] [address] [id number] [place] [address]- 7436 May, [facility] [address] [facility] [id number] [place] [address]- 2196 May, [facility] [address] [id number] [place] [address]- 4326 Apr, [facility] [address] [id number] [place] [address]- 9101 Apr, [facility] [address] [facility] [id number], [place] [address]- 3585 Mar, [facility] [address] [facility] [id number], [place] [address]- 6766 Mar, [facility] [address] [facility] [id number], [place] [address]- 8476 Mar, [facility] [address] [facility] [id number], [place] [address]- 9176 Mar, [facility] [address] [id number] [place] [id number] Feb, [facility] [address] [facility] [id number], [place] [address]- 9646 Feb, [facility] [address] [id number], [place] [address]- 7710 Feb, [facility] [address] [id number] [place] [address]- 4322 Feb, [facility] [address] [id number] [place] [address]- 0471 Feb, [facility] [address] [id number] [place] [address]- 4070 Feb, [facility] [address] [id number] [place] [address]- 3983 Feb, [facility] [address] [id number] [place] [address]- 5626 Jan, [facility] [address] [id number] [place] [address]- 6314 Jan, [facility] [address] [id number] [place] [address]- 8974 Dec, [facility] [address] [id number] [place] [address]- 0873 Dec, [facility] [address] [id number] [place] [address]- 4110 Nov, [facility] [address] [id number] [place] [address]- 0946 Oct, [facility] [address] [id number] [place] [address]- 6299 September, [facility] [address] [id number] [place] [address]- 3401 September, [facility] [address] [id number] [place] [address]- 7632 September, [facility] [address] [id number] [place] [address]- 9488 Aug, [facility] [address] [id number] [place] [address]- 8804 May, [facility] [id number], [place] [address]- 6546 May, [facility] [id number], [place] [address]- 7209 Apr, [facility] [id number], [place] [address]- 1336 Apr, [facility] [id number], [place] [address]- 8259 Apr, [facility] [id number], [place] [address]- 2739 Apr, [facility] [id number] [place] [address]- 6931 Apr, [facility] [id number], [place] [address]- 2985 Mar, [facility] [id number] [place] [address]- 8222 Feb, [facility] [id number], [place] [address]- 2112 Feb, [facility] [id number], [place] [address]- 7428 September, [facility] [id number], [place] [address]- 5483 Mar, [facility] [id number], [place] [address]- 2711 Feb, [facility] [address], [place] [address]- 5458 Feb, [facility] [id number] [address]89 Feb, IMMUNIZATIONS No Known Immunizations SOCIAL HISTORY Never Assessed REASON FOR VISIT PT follow-up PLAN OF CARE Activity Details Follow Up 3 Weeks Reason:F/U PT VITAL SIGNS MEDICATIONS Unknown Medications RESULTS No Results PROCEDURES Procedure Date Ordered Result Body Site THERAPEUTIC EXERCISES December 11, 2016 INSTRUCTIONS MEDICATIONS ADMINISTERED No Known Medications [...] foot fracture Hospitalization History [facility]- Back Pain 03/24/2017
--- OUTSIDE RECORDS SUMMARY | 2018-04-10 18:30 | XMS REPORT ---
Author Author GELY SHAY [facility] Address [address] [place] [address] Care Team Providers Care Direct Service Worker Name Role Phone GELYGLORIASHAY Unavailable PROBLEMS Type Condition ICD9-CM Code [id number] Code Onset Dates Condition Status SNOMED Code Problem Hypermetropia of both eyes H52.03 Active 51601617 Problem Transient cerebral ischemia, unspecified transient cerebral ischemia type G45.9 Active 998986846 Problem Color blindness H53.50 Active 250925685 Problem Essential hypertension I10 Active 85013678 Problem Presbyopia of both eyes H52.4 Active 51204108 Problem Anxiety F41.9 Active 86922033 Problem Other chronic pain G89.29 Active 39910833 Problem Overactive bladder N32.81 Active 427945635 Problem At high risk for falls Z91.81 Active [id number] Problem Asymptomatic microscopic hematuria R31.21 Active 958552944 Problem Mixed hyperlipidemia E78.2 Active 095929340 Problem Astigmatism of both eyes, unspecified type H52.203 Active 04490082 Problem Nuclear senile cataract of both eyes H25.13 Active 899475775 Problem 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 Active 498292748 Problem Alzheimer's disease, unspecified G30.9 Active 960183024 Problem Gait instability R26.81 Active 93103039 Problem Mild episode of recurrent major depressive disorder F33.0 Active 096387408 Problem Other acute pulmonary embolism without acute cor pulmonale I26.99 Active 935752485 Problem Hydrocele, unspecified hydrocele type N43.3 Active 00128857 Problem Primary insomnia F51.01 Active 520339412 Problem 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 Active 060893812 Problem 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 Active 61932591 Problem Benign non-nodular prostatic hyperplasia with lower urinary tract symptoms N40.1 Active 618370393 Problem Alzheimers disease with late onset G30.1 Active 723217990 Problem Renal cyst, left Q61.00 Active 94290766 ALLERGIES No Information ENCOUNTERS Encounter Location Date Diagnosis [place] [facility] [id number] [place] [address] 52934- 1409 September, [facility], [place] [id number] [place] [address] 20049- 7191 September, [facility], [place] [address] [address]0007- 1963 Aug, [facility], [place] [address] 71297- 6697 Aug, Acute low back pain, unspecified back pain laterality, with sciatica presence unspecified M54.5 [facility] [id number] [place] [address] 59528- 4122 Aug, Acute low back pain, unspecified back pain laterality, with sciatica presence unspecified M54.5 [facility] [id number] [place] [address] 69259- 8756 Aug, Pain R52 [facility] [facility] [address] 44162- 3710 Jul, [facility] [id number] [place] [address] 86457- 3780 13 Jun, 2017 [place] [id number] [place] [address] 08023- 8262 07 Jun, 2017 Mixed hyperlipidemia E78.2 ; Medicare annual wellness visit , initial Z00.00 ; Essential hypertension I10 ; Anxiety F41.9 ; Alzheimers disease with late onset G30.1 ; 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 ; Overactive bladder N32.81 ; Primary insomnia F51.01 ; At high risk for falls Z91.81 and Encounter for immunization Z23 [facility], [place] [id number] [place] [address] 26407- 7461 May, [facility] [address] 67263- 9164 May, Essential hypertension I10 and Transient cerebral ischemia, unspecified transient cerebral ischemia type G45.9 [facility] [id number] [place] [address] [id number] May, Dental examination Z01.20 and Dental caries K02.9 [facility], [place] [id number] [place] [address] 72751- 1790 May, [facility], [place] [id number] [place] [address] 81685- 5801 May, [facility], [place] [id number] [place] [address] 95661- 8974 May, Alzheimers disease with late onset G30.1 [facility] [id number] [place] [address] 16654- 7902 Apr, [facility] [address] 55465- 4417 Apr, Alzheimers disease with late onset G30.1 and Mild episode of recurrent major depressive disorder F33.0 [facility] [id number] [place] [address] 05045- 1160 Mar, Mild episode of recurrent major depressive disorder F33.0 [facility] [id number] [place] [address] 17094- 8200 Mar, Mixed hyperlipidemia E78.2 ; Essential hypertension I10 ; Asymptomatic microscopic hematuria R31.21 and Renal cyst, left Q61.00 [facility], [place] [id number] [place] [address] 32753- 7324 Mar, [facility] [place] [id number] [place] [address] 43897- 8250 Feb, Encounter for immunization Z23 [facility], [place] [id number] [place] [address] 04993- 5423 Feb, [facility] [place] [id number] [place] [address] 16346- 2629 Feb, [facility] [address], [place] [address] Feb, ANUG (acute necrotizing ulcerative gingivitis) A69.1 [facility], [place] [address], [place] [address]- 5818 Feb, [facility], [place] [id number] [place] [address] 19868- 9073 Feb, Mild episode of recurrent major depressive disorder F33.0 [facility], [place] [address], [place] [address]- 2088 Feb, Alzheimers disease with late onset G30.1 and Mild episode of recurrent major depressive disorder F33.0 [facility], [place] [address], [place] [address]- 4540 Jan, Alzheimers disease with late onset G30.1 [facility], [place] [id number] [address]- 5840 Jan, Gait instability R26.81 [facility] [address] [id number] [place] [address] Jan [facility] [address] [id number] [place] [address] Dec [facility], [place] [address], [place] [address]- 7434 Dec, [facility], [place] [address], [place] [address]- 5090 Dec, [facility], [place] [address], [place] [address]- 0381 Dec, Essential hypertension I10 ; Transient cerebral ischemia, unspecified transient cerebral ischemia type G45.9 and Anxiety F41.9 [facility], [place] [address], [place] [address]- 9802 Dec, Gait instability R26.81 [facility], [place] [id number] [place] [address] 66961- 3241 Dec, [facility], [place] [id number] [place] [address] 05409- 8650 Nov, Alzheimers disease with late onset G30.1 and Mild episode of recurrent major depressive disorder F33.0 [facility], [place] [id number] [place] [address] 28396- 5690 Nov, [facility], [place] [address] 30308- 5976 Nov, Gait instability R26.81 [facility], [place] [id number] [place] [address] 77680- 2268 Nov, Anxiety F41.9 [facility], [place] [id number] [place] [address] 08430- 6211 Nov, [facility], [place] [id number] [place] [address] 18175- 6155 Nov, [facility], [place] [id number] [place] [address] 35160- 3559 Oct, Gait instability R26.81 [facility], [place] [id number] [place] [address] 89429- 4125 Oct, Anxiety F41.9 [facility], [place] [id number] [place] [address] 13036- 4668 Oct, Gait instability R26.81 [facility], [place] [id number] [place] [address] 61812- 2490 Oct, Gait instability R26.81 [facility], [place] [id number] [place] [address] 02012- 3413 Oct, [facility], [place] [id number] [place] [address] 60027- 9626 Oct, Anxiety F41.9 ; Chronic 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 use Z79.899 ; Encounter for immunization Z23 and Transient cerebral ischemia, unspecified transient cerebral ischemia type G45.9 [facility], [place] [id number] [place] [address] [place] [address]- 0581 September, [facility], [place] [address], [place] [address]- 8223 September, Gait instability R26.81 [facility], [place] [id number], [place] [address]- 9008 September, [facility], [place] [id number] [place] [address] 47016- 6200 September, [facility], [place] [id number] [place] [address] 98530- 0223 September, [facility], [place] [id number] [place] [address] 33606- 8428 September, Alzheimers disease with late onset G30.1 and Mild episode of recurrent major depressive disorder F33.0 [facility], [place] [id number] [place] [address] 58668- 5464 September, [facility], [place] [id number], [place] [address]- 6671 September, [facility], [place] [id number] [place] [address] 88534- 8581 September, [facility], [place] [address], [place] [address]- 7048 September, Mild episode of recurrent major depressive disorder F33.0 [facility], [place] [address], [place] [address]- 0942 Aug, Mild episode of recurrent major depressive disorder F33.0 ; Alzheimers disease with late onset G30.1 ; Other acute pulmonary embolism without acute cor pulmonale I26.99 and Cough R05 [facility], [place] [address], [place] [address]- 9987 Aug, [facility], [place] [address], [place] [address]- 4787 Aug, Gait instability R26.81 [facility], [place] [id number] [address]- 0288 Aug, Alzheimers disease with late onset G30.1 and Mild episode of recurrent major depressive disorder F33.0 [facility] [place] [id number] [place] [address] 71374- 2032 Aug, [facility] [id number] [place] [address] 84655- 9674 Aug, 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 [place] [id number] [place] [address] 67562- 2010 Jul, Alzheimers disease with late onset G30.1 [place] [id number] [place] [address] 96100- 2331 Jul, [place] [id number] [place] [address] 78451- 2620 Jul, 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 [place] [id number] [place] [address] 24174- 7319 Jul, Anxiety F41.9 ; Alzheimers disease with late onset G30.1 and Transient cerebral ischemia, unspecified transient cerebral ischemia type G45.9 [facility] [address], [place] [address]- 1849 Jun, Essential hypertension I10 [facility] [id number] [place] [address] 14382- 0139 Jun, [facility], [place] [id number] [place] [address] 00254- 2037 Jun, [place] [id number] [place] [address] 89320- 4940 Jun, [facility] [place] [address] [place] [address] 36796- 2335 Jun, Essential hypertension I10 ; Benign non-nodular prostatic hyperplasia with lower urinary tract symptoms N40.1 ; Anxiety F41.9 ; Pain in right knee M25.561 ; Pain in left knee M25.562 and Other chronic pain G89.29 [place] [id number] [place] [address] 99592- 0578 May, [facility], [place] [id number] [place] [address] 13129- 7165 May, [place] [id number] [place] [address] 96657- 6796 May, [facility], [place] [id number] [place] [address] 44305- 5226 Apr, [facility] [address] 59527- 2603 Mar, [facility] [place] [id number] [place] [address] 96796- 0091 Mar, Mixed hyperlipidemia E78.2 and Essential hypertension I10 [place] [id number] [place] [address] 23273- 3934 Feb, [facility] [id number] [place] [address] 00897- 0635 Feb, Ingrown nail L60.0 and Onychomycosis B35.1 [facility] [place] [id number] [place] [address] 47304- 9426 Feb, Paronychia, left L03.012 [place] [id number] [place] [address] 45320- 5195 Jan, [facility] [place] [id number] [place] [address] 76680- 0338 07 Jan, 2016 Mixed hyperlipidemia E78.2 and Cramps of right lower extremity R25.2 [place] [place] [id number] [place] [address] 48209- 9646 06 Jan, 2016 Cramps of right lower extremity R25.2 ; Essential hypertension I10 ; Mixed hyperlipidemia E78.2 ; Chronic 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 use Z79.899 and Claudication I73.9 [facility], [place] [address], [place] [address]- 5612 Jan, Right leg pain M79.604 [facility], [place] [id number] [place] [address] 23782- 6897 Dec, [facility], [place] [id number] [place] [address] 72476- 7528 Nov, [facility], [place] [id number] [place] [address] 21427- 4155 Nov, [facility], [place] [id number] [place] [address] 99612- 5754 Nov, [facility], [place] [id number] [place] [address] 41698- 5642 Nov, Dermatofibroma D23.9 [facility], [place] [id number] [place] [address] 85470- 5992 Nov, [facility], [place] [id number], [place] [address]- 1115 Oct, [facility], [place] [id number] [place] [address] 45417- 0328 Oct, [facility], [place] [address], [place] [address]- 1582 September, Benign non-nodular prostatic hyperplasia with lower urinary tract symptoms N40.1 ; Essential hypertension I10 ; Overactive bladder N32.81 and Fatigue, unspecified type R53.83 [facility], [place] [address], [place] [address]- 1247 September, [facility], [place] [id number] [place] [address] 41258- 9673 September, [facility], [place] [address], [place] [address]- 0549 Aug, [facility], [place] [id number] [place] [address] 60577- 2904 Jul, [facility], [place] [id number] [place] [address] 09412- 5864 Jul, Pelvic pain R10.2 ; Jock itch B35.6 ; Essential hypertension I10 and Hydrocele, unspecified hydrocele type N43.3 [facility], [place] [id number] [place] [address] 25703- 5510 Jun, [facility], [place] [address] 30150- 1056 Jun, [facility], [place] [id number] [place] [address] 98754- 5740 Jun, Benign non-nodular prostatic hyperplasia with lower urinary tract symptoms N40.1 [facility], [place] [id number] [place] [address] 21944- 5057 Jun, Benign non-nodular prostatic hyperplasia with lower urinary tract symptoms N40.1 [facility], [place] [id number] [place] [address] 71814- 7472 Jun, [facility], [place] [id number] [place] [address] 88269- 8660 May, [facility], [place] [id number] [place] [address] 62033- 2590 Apr, [facility], [place] [id number] [place] [address] 68303- 9911 Apr, [facility], [place] [id number] [place] [address] 28619- 7179 Apr, Other acute pulmonary embolism without acute cor pulmonale I26.99 ; Anxiety F41.9 ; 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 and counsel 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 use Z79.899 [facility], [place] [id number] [place] [address] 48647- 0044 Apr, [facility], [place] [id number] [place] [address] 17872- 8004 Apr, [facility], [place] [id number], [place] [address]- 0486 Mar, [facility], [place] [id number] [place] [address] 67438- 6920 Mar, [facility], [place] [id number] [place] [address] 14045- 9228 Feb, Cough R05 [facility], [place] [address] 43872- 9828 Feb, [facility], [place] [id number] [place] [address] 51287- 6075 Feb, Encounter for immunization Z23 [facility], [place] [address] 99288- 7542 Feb, Other and unspecified hyperlipidemia 272.4 [facility], [place] [id number] [place] [address] 29495- 8096 Jan, [facility], [place] [id number] [place] [address] 02880- 5012 Jan, TIA (transient ischemic attack) 435.9 [facility], [place] [id number] [place] [address] 58884- 6172 Dec, [facility], [place] [id number] [place] [address] 22450- 0194 Dec, [facility], [place] [id number] [place] [address] 77563- 7659 Dec, [facility], [place] [id number] [place] [address] 28628- 1443 Nov, [facility], [place] [id number] [place] [address] 36300- 0591 Oct, Chronic cough 786.2 [facility], [place] [id number] [place] [address] 04640- 9634 Oct, [facility], [place] [id number] [place] [address] 31195- 6324 Oct, [facility], [place] [address], [place] [address]- 9738 Oct, [facility], [place] [address], [place] [address]- 6590 Oct, [facility], [place] [address], [place] [address]- 4082 Oct, Chronic cough 786.2 [facility], [place] [id number] [place] [address] 194830- 8014 Oct, Cough 786.2 ; Hypertension 401.9 ; BPH (benign prostatic hyperplasia) 600.00 ; Other and unspecified hyperlipidemia 272.4 and Hydrocele 603.9 [facility], [place] [address], [place] [address]- 7930 Oct, [facility], [place] [id number] [address]- 2885 September, [facility], [place] [address], [place] [address]- 1244 Aug, [facility], [place] [address], [place] [address]- 3862 Aug, [facility], [place] [address], [place] [address]- 0459 Jul, [facility], [place] [address], [place] [address]- 2303 Jul, [facility], [place] [address], [place] [address]- 8574 Jul, [facility], [place] [id number], [place] [address]- 3639 Jul, [facility], [place] [id number] 2417 Jul, [facility], [place] [id number] 0245 Jun, [facility] [place] [facility] [address] [facility] [id number] [place] [address]- 6953 Jun, 2014 [facility] [place] [facility] [address] [id number] [place] [address]- 6227 Jun, 2014 [facility] [place] [facility] [address] [id number] [place] [address]- 9706 Jun, 2014 [facility] [place] [facility] [address] [id number] [place] [address]- 1708 Jun, 2014 [facility] [place] [facility] [address] [id number] [place] [address]- 3589 Jun, 2014 [facility] [place] [facility] [address] [id number] [place] [address]- 7692 Jun, 2014 [facility] [place] [facility] [address] [id number] [place] [address]- 2148 Jun, 2014 [facility] [place] [facility] [address] [id number] [place] [address] May, [facility] [place] [facility] [address] [id number] [place] [address] May, [facility] [place] [facility] [address] [id number] [place] [address] May, [facility] [place] [facility] [address] [id number] [place] [address] May, [facility] [place] [facility] [address] [id number] [address] May, [facility] [place] [facility] [address] [id number] [place] [address] May, [facility] [place] [facility] [address] [id number] [place] [address] May, [facility] [place] [facility] [address] [id number] [place] [address] May, [facility] [place] [facility] [address] [id number] [place] [address] May, [facility] [place] [facility] [address] [id number] [place] [address] May, [facility] [place] [facility] [address] [id number] [place] [address] Apr, [facility] [place] [facility] [address] [id number] [place] [address] Apr, [facility] [place] [facility] [address] [id number] [place] [address] Apr, [facility] [place] [facility] [address] [id number] [place] [address] Apr, [facility] [place] [facility] [address] [id number] [place] [address] Apr, [facility] [place] [facility] [address] [id number] [place] [address] Apr, [facility] [place] [facility] [address] [id number] [place] [address] Apr, [facility] [place] [facility] [address] [id number] [place] [address] Apr, [facility] [place] [facility] [address] [id number] [place] [address] Mar, [facility] [place] [facility] [address] [id number] [place] [address] Mar, [facility] [place] [facility] [address] [id number] [place] [address] Mar, [facility] [place] [facility] [address] [id number] [place] [address] Mar, [facility] [place] [facility] [address] [id number] [place] [address] Mar, [facility] [place] [facility] [address] [id number] [place] [address] 9033 Mar, [facility] [place] [facility] [address] [id number] [place] [address] 0167 Mar, [facility] [place] [facility] [address] [id number] [place] [address] 8153 Mar, [facility] [place] [facility] [address] [id number] [place] [address] 5853 Mar, [facility] [place] [facility] [address] [id number] [place] [address] 2[address] Mar, [facility] [place] [facility] [address] [id number] [place] [address]- 0965 Feb, [facility] [place] [facility] [address] [id number] [place] [address] 8034 Feb, [facility] [place] [facility] [address] [id number] [place] [address]- 0685 Feb, [facility] [place] [facility] [address] [id number] [place] [address]- 6332 Feb, [facility] [place] [facility] [address] [id number] [place] [address]- 4187 Feb, [facility] [place] [facility] [address] [id number] [place] [address]- 0590 Feb, [facility] [place] [facility] [address] [id number] [place] [address]- 5985 30 Jan, 2014 [facility] [place] [facility] [address] [id number] [place] [address]- 4928 30 Jan, 2013 [facility] [place] [facility] [address] [id number] [place] [address]- 2545 24 Jan, 2013 [facility] [place] [facility] [address] [id number] [place] [address]- 2915 24 Jan, 2013 [facility] [place] [facility] [address] [id number] [place] [address]- 8734 19 Jan, 2013 [facility] [place] [facility] [address] [id number] [place] [address]- 0153 19 Jan, 2014 [facility] [place] [facility] [address] [id number] [place] [address]- 7575 16 Jan, 2013 [facility] [place] [facility] [address] [id number] [place] [address]- 0408 Jan, 2013 [facility] [place] [facility] [address] [id number] [place] [address]- 5265 Jan, [facility] [place] [facility] [address] [id number] [place] [address]- 7814 Jan, 2013 [facility] [place] [facility] [address] [id number] [place] [address]- 2152 Jan, [facility] [place] [facility] [address] [id number] [place] [address]- 8689 Jan, [facility] [place] [facility] [address] [id number] [place] [address]- 7008 Dec, [facility] [place] [facility] [address] [id number] [place] [address]- 5014 Dec, [facility] [place] [facility] [address] [id number] [place] [address]- 8166 Dec, [facility] [place] [facility] [address] [id number] [place] [address]- 2483 Dec, [facility] [place] [facility] [address] [id number] [place] [address]- 5811 Dec, [facility] [place] [facility] [address] [id number] [place] [address]- 8475 Dec, [facility] [place] [facility] [address] [id number] [place] [address]- 6535 Nov, [facility] [place] [facility] [address] [id number] [place] [address]- 9904 Nov, [facility] [place] [facility] [address] [id number] [place] [address]- 8697 Nov, [facility] [place] [facility] [address] [id number] [place] [address]- 4104 Nov, [facility] [place] [facility] [address] [id number] [place] [address]- 2253 Nov, [facility] [place] [facility] [address] [id number] [place] [address]- 5016 Nov, [facility] [place] [facility] [address] [id number] [place] [address]- 8208 Nov, [facility] [place] [facility] [address] [id number] [place] [address]- 1471 Nov, [facility] [place] [facility] [address] [id number] [place] [address]- 0873 Oct, [facility] [place] [facility] [address] [id number] [place] [address]- 2941 Oct, [facility] [place] [facility] [address] [id number] [place] [address]- 7617 Oct, [facility] [place] [facility] [address] [id number] [place] [address]- 5239 Oct, [facility] [place] [facility] [address] [id number] [place] [address]- 0733 September, [facility] [place] [facility] [address] [id number] [place] [address]- 5543 September, [facility] [place] [facility] [address] [id number] [place] [address]- 0148 September, [facility] [place] [facility] [address] [id number] [place] [address]- 5830 September, [facility] [place] [facility] [address] [id number] [place] [address]- 9541 September, [facility] [place] [facility] [address] [id number] [place] [address]- 3100 September, [facility] [place] [facility] [address] [id number] [place] [address]- 0845 Aug, [facility] [place] [facility] [address] [id number] [place] [address]- 3082 Aug, [facility] [place] [facility] [address] [id number] [place] [address]- 9696 Aug, [facility] [place] [facility] [address] [id number] [place] [address]- 1376 Aug, [facility] [place] [facility] [address] [id number] [place] [address]- 4799 Aug, [facility] [place] [facility] [address] [id number] [place] [address]- 1029 Aug, [facility] [place] [facility] [address] [id number] [place] [address]- 2751 Aug, [facility] [place] [facility] [address] [id number] [place] [address]- 6855 Aug, [facility] [place] [facility] [address] [id number] [place] [address]- 4284 Jul, [facility] [place] [facility] [address] [id number] [place] [address]- 1278 Jul, [facility] [place] [facility] [address] [id number] [place] [address]- 9755 Jun, [facility] [place] [facility] [address] [id number] [place] [address]- 2799 Jun, [facility] [place] [facility] [address] [id number] [place] [address]- 4955 Jun, [facility] [place] [facility] [address] [id number] [place] [address]- 2341 Jun, [facility] [place] [facility] [address] [id number] [place] [address]- 8451 Jun, [facility] [place] [facility] [address] [id number] [place] [address]- 1171 May, [facility] [place] [facility] [address] [id number], [place] [address] 0712 May, [facility] [place] [facility] [address] [id number] [place] [address]- 2213 May, [facility] [place] [facility] [address] [id number] [place] May, [facility] [place] [facility] [address] [id number] [place] [address]- 8484 Apr, [facility] [place] [facility] [address] [id number] [place] [address]- 1408 Apr, [facility] [place] [facility] [address] [id number] [place] [address]- 1637 Mar, [facility] [place] [facility] [address] [id number] [place] [address]- 3349 Mar, [facility] [place] [facility] [address] [id number] [place] [address]- 8052 Feb, [facility] [place] [facility] [address] [id number] [place] [address]- 0658 Feb, [facility] [place] [facility] [address] [id number] [place] [address]- 0954 Feb, [facility] [place] [facility] [address] [id number] [place] [address]- 4759 Feb, [facility] [place] [facility] [address] [id number], [place] [address]- 9822 Feb, [facility] [place] [facility] [address] [id number], [place] [address]- 8085 Feb, [facility] [place] [facility] [address] [id number], [place] [address]- 8728 Feb, [facility] [place] [facility] [address] [id number] [address] Jan, [facility] [place] [facility] [address] [id number] [place] [address]- 7812 Jan, [facility] [place] [facility] [address] [id number] [place] [address]- 3342 Dec, [facility] [address] [id number] [place] [address]- 2712 Dec, [facility] [place] [facility] [address] [id number] [place] [address]- 6146 Dec, [facility] [address] [id number] [place] [address]- 8870 Dec, [facility] [place] [facility] [address] [id number] [place] [address]- 2945 Dec, [facility] [address] [id number] [place] [address]- 6178 Nov, [facility] [address] [id number] [place] [address]- 8729 Nov, [facility] [place] [facility] [address] [id number] [place] [address]- 5645 Nov, [facility] [address] [id number] [place] [address]- 6500 Oct, [facility] [place] [facility] [address] [id number] [place] [address]- 4768 Oct, [facility] [address] [id number] [place] [address]- 6896 Oct, [facility] [place] [facility] [address] [id number] [place] [address]- 7812 September, [facility] [place] [facility] [address] [id number] [place] [address]- 7678 Aug, [facility] [place] [facility] [address] [id number] [place] [address]- 2696 Aug, [facility] [place] [facility] [address] [id number] [place] [address]- 2546 Aug, [facility] [place] [facility] [address] [id number] [place] [address]- 4483 Jul, [facility] [address] [id number] [place] [address]- 2264 18 Jul, 2012 [facility] [address] [id number] [place] [address]- 2116 15 Jul, 2012 [facility] [address] [facility] [id number] [place] [address]- 5095 04 Jul, 2012 [facility] [address] [id number] [place] [address]- 6396 Jul, [facility] [address] [id number] [place] [address]- 5751 Jun, [facility] [address] [facility] [id number] [place] [address]- 8176 Jun, [facility] [address] [facility] [id number] [place] [address]- 6326 May, [facility] [address] [facility] [id number], [place] [address]- 3660 May, [facility] [address] [facility] [id number], [place] [address]- 8926 Apr, [facility] [address] [facility] [id number], [place] [address]- 9588 Apr, [facility] [address] [id number], [place] [address]- 1304 Mar, [facility] [place] [facility] [address] [facility] [id number], [place] [address]- 7473 Mar, [facility] [address] [facility] [id number], [place] [address]- 1936 Mar, [facility] [address] [facility] [id number], [place] [address]- 9346 Mar, [facility] [address] [facility] [id number][place] [id number] Feb, [facility] [address] [facility] [id number], [place] [address]- 0728 Feb, [facility] [place] [facility] [address] [id number] [place] [address]- 3193 Feb, [facility] [place] [facility] [address] [id number] [place] [address]- 0745 Feb, [facility] [place] [facility] [address] [id number] [place] [address]- 6203 Feb, [facility] [place] [facility] [address] [id number] [place] [address]- 0017 Feb, [facility] [place] [facility] [address] [id number] [place] [address]- 9487 Feb, [facility] [place] [facility] [address] [id number] [place] [address]- 2460 Jan, [facility] [place] [facility] [address] [facility] [id number] [place] [address]- 4440 Jan, [facility] [place] [facility] [address] [facility] [id number] [place] [address]- 6099 Dec, [facility] [place] [facility] [address] [facility] [id number] [place] [address]- 6223 Dec, [facility] [place] [facility] [address] [facility] [id number] [place] [address]- 0194 Nov, [facility] [place] [facility] [address] [facility] [id number], [place] [address]- 6992 Oct, [facility] [place] [facility] [address] [facility] [id number], [place] [address]- 2345 September, [facility] [place] [facility] [address] [id number] [place] [address]- 5795 September, [facility] [place] [facility] [address] [facility] [id number] [place] [address]- 4694 September, [facility] [place] [facility] [address] [facility] [id number] [place] [address]- 0784 Aug, [facility] [place] [facility] [address] [facility] [id number], [place] [address]- 0601 May, [facility] [place] [address] [facility] [id number], [place] [address]- 3490 May, [facility] [place] [address] [facility] [id number], [place] [address]- 0097 Apr, [facility] [place] [address] [facility] [id number], [place] [address]- 8524 Apr, [facility] [place] [address] [facility] [id number], [place] [address]- 4340 Apr, [facility] [place] [address] [facility] [id number], [place] [address]- 7556 Apr, [facility] [place] [address] [facility] [id number][place] 5682 Apr, [facility] [place] [address] [id number], [place] [address]- 1210 Mar, [facility] [place] [address] [facility] [id number], [place] [address]- 0599 Feb, [facility] [place] [address] [facility] [id number], [place] [address]- 4229 Feb, [facility] [place] [address] [id number], [place] [address]- 9335 September, [facility] [place] [address] [id number], [place] [address]- 1131 Mar, [facility] [place] [address] [facility] [id number], [place] [address]- 5801 Feb, [facility] [place] [id number] 8612 Feb, [facility] [place] [address] [facility] [id number][place]12[place] 5684 Feb, IMMUNIZATIONS No Known Immunizations SOCIAL HISTORY [...] Hospitalization History foot fracture Hospitalization History [facility]- Back Pain 03/24/2017
--- OUTSIDE RECORDS SUMMARY | 2018-04-10 18:34 | XMS REPORT | Continuity of Care Document ---
Author Author [facility] Address Unknown Phone Unavailable Allergies Active Description Code Type Severity Reaction Onset Reported/Identified Relationship to Patient Clinical Status Yes codeine Drug Allergy N/A N/A 12/14/2009 Yes Vicodin Drug Allergy N/A N/A 12/14/2009 Yes codeine Drug Allergy 12/14/2009 Yes Vicodin Drug Allergy 12/14/2009 Yes statin Drug Allergy 12/20/2009 Yes codeine [id number] Drug Allergy Severe rash 01/11/2011 Yes acetaminophen [id number] Drug Allergy Unknown N/A 08/19/2015 Yes hydrocodone [id number] Drug Allergy Unknown N/A 08/19/2015 Yes lovastatin [id number] Drug Allergy Unknown N/A 08/19/2015 Medications There [...] MONIKA GOMEZ MD 601.0 ACUTE PROSTATITIS 06/16/2010 MNOIKA GOMEZ MD 601.0 ACUTE PROSTATITIS 06/16/2010 601.0 [...] MD V58.69 taking high-risk medication 08/09/2010 MONIKA GMOEZ MD V58.69 taking high-risk medication 08/09/2010 V58.69 [...] 09/21/2011 780.4 lightheadedness 09/21/2011 784.7 EPISTAXIS 09/21/2011 MONKIA GOMEZ MD 780.4 lightheadedness 09/21/2011 MONIKA GOMEZ [...] MD V04.81 FLU DX (MEDICARE ONLY) 02/16/2012 HSAY HONG MD V04.81 FLU DX (MEDICARE ONLY) [...] Ot E849.0 ACCIDENT IN HOME 04/06/2013 DAYDAY RHODES Ot E920.4 ACCID-OTHER HAND TOOLS 04/06/2013 DAYDAY RHODES Ot V06.1 AXADSESIFZ-DCCVRPB-DBPPISWGU, COMBINED [ 04/16/2013 KALINA SIMONS, YADI Howard [...] N 455.6 HEMORRHOIDS NOS 04/15/2014 GELY MD, SAHY N 455.6 HEMORRHOIDS NOS 05/26/2014 SHAY HONG MD N 799.22 IRRITABILITY 05/26/2014 SHAY HONG MD 799.22 IRRITABILITY 06/09/2014 RANDI HUNTER MD Ot 473.9 CHRONIC SINUSITIS NOS 06/09/2014 RANDI HUNTER MD Ot 786.39 OTHER HEMOPTYSIS 06/16/2014 SHAY HONG MD N 461.9 SINUSITIS ACUTE 01/15/2015 FEI OTTO VIDEO LIBRARY ASSISTANT Ot 294.20 DEMENTIA, UNSPECIFIED, WITHOUT BEHAVIORA 01/15/2015 FEI OTTO VIDEO LIBRARY ASSISTANT Ot 784.51 DYSARTHRIA 01/15/2015 FEI OTTO APRN [...] GELY SIMONS, SHAY Llamas Ot G30.9 04/21/2015 GELY SIMONS, SHAY Llamas Ot G45.9 04/21/2015 GELY [...] FATIGUE 10/13/2016 FEI OTTO APRN Ot Z79.01 ANIMAL HOSPITAL CLERK (CURRENT) USE OF ANTICOAGULANT 10/13/2016 FEI OTTO APRN Ot Z79.899 OTHER ANIMAL HOSPITAL CLERK (CURRENT) DRUG THERAPY 10/13/2016 Ot 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 [...] I73.9 PERIPHERAL VASCULAR DISEASE, UNSPECIFIED 10/13/2016 SHAY HOGN MD Ot R25.2 CRAMP AND SPASM 10/19/2016 FEI OTTO APRN Ot 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 10/19/2016 FEI OTTO APRN Ot R47.1 DYSARTHRIA AND ANARTHRIA 10/19/2016 FEI OTTO APRN Ot R47.81 SLURRED SPEECH 10/19/2016 FEI OTTO APRN Ot R53.83 OTHER FATIGUE 10/19/2016 FEI OTTO APRN Ot Z79.01 ANIMAL HOSPITAL CLERK (CURRENT) USE OF ANTICOAGULANT 10/19/2016 FEI OTTO APRN Ot Z79.899 OTHER ANIMAL HOSPITAL CLERK (CURRENT) DRUG THERAPY 03/24/2017 MATT PURVIS DO [...] R31.29 OTHER MICROSCOPIC HEMATURIA 03/24/2017 YANIV ALBERTS MATT Akhtar Ot Z86.711 PERSONAL HISTORY OF PULMONARY [...] MD Ot R07.9 CHEST PAIN, UNSPECIFIED 06/19/2017 ANIBAL PHILLIPS APRN Ot F41.9 ANXIETY DISORDER, UNSPECIFIED 06/19/2017 ANIBAL PHILLIPS APRN Ot G47.10 HYPERSOMNIA, UNSPECIFIED 06/19/2017 ANIBAL PHILLIPS APRN Ot J44.9 CHRONIC OBSTRUCTIVE PULMONARY DISEASE, U 06/19/2017 ANIBAL PHILLIPS APRN Ot Z79.899 OTHER ANIMAL HOSPITAL CLERK (CURRENT) DRUG THERAPY 06/20/2017 ANIBAL PHILLIPS APRN Ot F41.9 ANXIETY DISORDER, UNSPECIFIED 06/20/2017 ANIBAL PHILLIPS APRN Ot G47.10 HYPERSOMNIA, UNSPECIFIED 06/20/2017 ANIBAL PHILLIPS APRN Ot J44.9 CHRONIC OBSTRUCTIVE PULMONARY DISEASE, U 06/20/2017 ANIBAL PHILLIPS APRN Ot Z79.899 OTHER [facility] (CURRENT) DRUG THERAPY 06/23/2017 CANDIS SHORE MD [...] STEPS, 08/16/2017 YADI GILMAN MD, Ot Z79.01 ANIMAL HOSPITAL CLERK (CURRENT) USE OF ANTICOAGULANT 08/16/2017 YADI GILMAN [...] STEPS, 08/20/2017 YADI GILMAN MD, Ot Z79.01 ANIMAL HOSPITAL CLERK (CURRENT) USE OF ANTICOAGULANT 08/20/2017 YADI GILMAN [...] STEPS, 08/22/2017 YADI GILMAN MD, Ot Z79.01 [facility] (CURRENT) USE OF ANTICOAGULANT 08/22/2017 YADI GILMAN MD, Ot Z82.49 FAMILY HX OF ISCHEM HEART DIS AND OTH DI 08/22/2017 YADI GILMAN MD, Ot Z86.718 PERSONAL HISTORY OF OTHER VENOUS THROMBO 08/22/2017 YADI GILMAN MD, Ot Z86.73 PRSNL HX OF TIA (TIA), AND CEREB INFRC W 08/22/2017 YADI GILMAN MD Ot Z87.19 PERSONAL HISTORY OF OTHER DISEASES OF TH 08/22/2017 YADI GILMAN MD Ot Z87.448 PERSONAL HISTORY OF OTHER DISEASES OF UR 08/22/2017 YADI GILMAN MD Ot Z88.5 ALLERGY STATUS TO NARCOTIC AGENT STATUS 08/22/2017 YADI GILMAN MD Ot Z88.8 ALLERGY STATUS TO OTH DRUG/MEDS/BIOL SUB 08/28/2017 FEI OTTO APRN Ot E78.00 PURE HYPERCHOLESTEROLEMIA, UNSPECIFIED 08/28/2017 FEI OTTO APRN Ot F03.90 UNSPECIFIED DEMENTIA WITHOUT BEHAVIORAL 08/28/2017 FEI OTTO APRN Ot F32.9 MAJOR DEPRESSIVE DISORDER, SINGLE EPISOD 08/28/2017 FEI OTTO APRN Ot F41.9 ANXIETY DISORDER, UNSPECIFIED 08/28/2017 FEI OTTO APRN Ot G47.9 SLEEP DISORDER, UNSPECIFIED 08/28/2017 FEI OTTO APRN Ot I10 ESSENTIAL (PRIMARY) HYPERTENSION 08/28/2017 FEI OTTO APRN Ot K59.09 OTHER CONSTIPATION 08/28/2017 FEI OTTO APRN Ot M54.5 LOW BACK PAIN 08/28/2017 FEI OTTO APRN Ot N40.0 BENIGN PROSTATIC HYPERPLASIA WITHOUT LOW 08/28/2017 FEI OTTO APRN Ot Z86.711 PERSONAL HISTORY OF PULMONARY EMBOLISM 08/28/2017 FEI OTTO APRN Ot Z86.718 PERSONAL HISTORY OF OTHER VENOUS THROMBO 08/28/2017 FEI OTTO APRN Ot Z86.73 PRSNL HX OF TIA (TIA), AND CEREB INFRC W 08/28/2017 FEI OTTO APRN Ot Z88.5 ALLERGY STATUS TO NARCOTIC AGENT STATUS 08/28/2017 FIE OTTO APRN Ot Z88.8 ALLERGY STATUS TO OTH DRUG/MEDS/BIOL SUB 08/28/2017 FEI OTTO APRN Ot Z98.890 OTHER SPECIFIED POSTPROCEDURAL STATES 08/29/2017 Ot 397.0 TRICUSPID VALVE DISEASE 08/29/2017 Ot 424.0 MITRAL VALVE DISORDER 08/29/2017 Ot 429.3 CARDIOMEGALY 08/29/2017 Ot 786.09 RESPIRATORY ABNORM NEC 08/29/2017 Ot 786.50 CHEST PAIN NOS 08/29/2017 Ot 414.00 CORON ATHEROSCLER NOS TYPE VESSEL, NATIV 08/29/2017 Ot 786.09 RESPIRATORY ABNORM NEC 08/29/2017 Ot 550.90 UNILAT INGUINAL HERNIA 08/29/2017 Ot V72.63 PRE- PROCEDURAL LABORATORY EXAMINATION 08/29/2017 Ot V74.8 SCREEN- BACTERIAL DIS NEC 08/29/2017 Ot V72.84 EXAM PRE- OPERATIVE NOS 08/29/2017 STAN SIMONS, Kirill NARAYAN Ot 603.9 HYDROCELE NOS 08/29/2017 SHAY HONG MD Ot 593.9 RENAL URETERAL DIS NOS 08/29/2017 SHAY HONG MD Ot 753.10 CYSTIC KIDNEY DISEASE, UNSPECIFIED 08/29/2017 KALINA SIMONS, YADI Howard Ot M79.661 PAIN IN RIGHT LOWER LEG 08/29/2017 KALINA SIMONS, YADI Howard Ot Z53.21 PROC/TRTMT NOT CRD OUT D/T PT LV BEF SEE 08/29/2017 SHAY HONG MD Ot M79.604 PAIN IN RIGHT LEG 08/29/2017 SHAY HONG MD Ot I73.9 PERIPHERAL VASCULAR DISEASE, UNSPECIFIED 08/29/2017 SHAY HONG MD Ot R25.2 CRAMP AND SPASM 08/29/2017 BO BALTAZAR Ot E78.2 MIXED HYPERLIPIDEMIA 08/29/2017 BO BALTAZAR Ot I10 ESSENTIAL (PRIMARY) HYPERTENSION 08/29/2017 BO BALTAZAR Ot R06.00 DYSPNEA, UNSPECIFIED 08/29/2017 BO BALTAZAR Ot R07.89 OTHER CHEST PAIN 08/29/2017 JESS EL MD Ot E78.2 MIXED HYPERLIPIDEMIA 08/29/2017 JESS EL MD Ot I10 ESSENTIAL (PRIMARY) HYPERTENSION 08/29/2017 JESS EL MD Ot J44.9 CHRONIC OBSTRUCTIVE PULMONARY DISEASE, U 08/29/2017 JESS EL MD Ot R06.00 DYSPNEA, UNSPECIFIED 08/29/2017 JESS EL MD Ot R07.9 CHEST PAIN, UNSPECIFIED 08/29/2017 Ot 397.0 TRICUSPID VALVE DISEASE 08/29/2017 Ot 424.0 MITRAL VALVE DISORDER 08/29/2017 Ot 429.3 CARDIOMEGALY 08/29/2017 Ot 786.09 RESPIRATORY ABNORM NEC 08/29/2017 Ot 786.50 CHEST PAIN NOS 08/29/2017 Ot 414.00 CORON ATHEROSCLER NOS TYPE VESSEL, NATIV 08/29/2017 Ot 786.09 RESPIRATORY ABNORM NEC 08/29/2017 Ot 550.90 UNILAT INGUINAL HERNIA 08/29/2017 Ot V72.63 PRE- PROCEDURAL LABORATORY EXAMINATION 08/29/2017 Ot V74.8 SCREEN- BACTERIAL DIS NEC 08/29/2017 Ot V72.84 EXAM PRE- OPERATIVE NOS 08/29/2017 STAN SIMONS, Kirill NARAYAN Ot 603.9 HYDROCELE NOS 08/29/2017 GELY SIMONS, SHAY Llamas Ot 593.9 RENAL URETERAL DIS NOS 08/29/2017 SHAY HONG MD Ot 753.10 CYSTIC KIDNEY DISEASE, UNSPECIFIED 08/29/2017 KALINA SIMONS, YADI Howard Ot M79.661 PAIN IN RIGHT LOWER LEG 08/29/2017 YADI GILMAN MD Ot Z53.21 PROC/TRTMT NOT CRD OUT D/T PT LV BEF SEE 08/29/2017 SHAY HONG MD Ot M79.604 PAIN IN RIGHT LEG 08/29/2017 SHAY HONG MD Ot I73.9 PERIPHERAL VASCULAR DISEASE, UNSPECIFIED 08/29/2017 SHAY HONG MD Ot R25.2 CRAMP AND SPASM 08/29/2017 BO BALTAZAR Ot E78.2 MIXED HYPERLIPIDEMIA 08/29/2017 BO BALTAZAR Ot I10 ESSENTIAL (PRIMARY) HYPERTENSION 08/29/2017 BO BALTAZAR Ot R06.00 DYSPNEA, UNSPECIFIED 08/29/2017 BO BALTAZAR Ot R07.89 OTHER CHEST PAIN 08/29/2017 ANN SIMONS, JESS Roy Ot E78.2 MIXED HYPERLIPIDEMIA 08/29/2017 JESS EL MD Ot I10 ESSENTIAL (PRIMARY) HYPERTENSION 08/29/2017 ANN SIMONS, JESS Roy Ot J44.9 CHRONIC OBSTRUCTIVE PULMONARY DISEASE, U 08/29/2017 JESS EL MD Ot R06.00 DYSPNEA, UNSPECIFIED 08/29/2017 JESS EL MD Ot R07.9 CHEST PAIN, UNSPECIFIED 08/29/2017 Ot 397.0 TRICUSPID VALVE DISEASE 08/29/2017 Ot 424.0 MITRAL VALVE DISORDER 08/29/2017 Ot 429.3 CARDIOMEGALY 08/29/2017 Ot 786.09 RESPIRATORY ABNORM NEC 08/29/2017 Ot 786.50 CHEST PAIN NOS 08/29/2017 Ot 414.00 CORON ATHEROSCLER NOS TYPE VESSEL, NATIV 08/29/2017 Ot 786.09 RESPIRATORY ABNORM NEC 08/29/2017 Ot 550.90 UNILAT INGUINAL HERNIA 08/29/2017 Ot V72.63 PRE- PROCEDURAL LABORATORY EXAMINATION 08/29/2017 Ot V74.8 SCREEN- BACTERIAL DIS NEC 08/29/2017 Ot V72.84 EXAM PRE- OPERATIVE NOS 08/29/2017 STAN SIMONS, Kirill NARAYAN Ot 603.9 HYDROCELE NOS 08/29/2017 SHAY HONG MD Ot 593.9 RENAL URETERAL DIS NOS 08/29/2017 SHAY HONG MD Ot 753.10 CYSTIC KIDNEY DISEASE, UNSPECIFIED 08/29/2017 KALINA SIMONS, YADI Howard Ot M79.661 PAIN IN RIGHT LOWER LEG 08/29/2017 KALINA SIMONS, YADI Howard Ot Z53.21 PROC/TRTMT NOT CRD OUT D/T PT LV BEF SEE 08/29/2017 SHAY HONG MD Ot M79.604 PAIN IN RIGHT LEG 08/29/2017 SHAY HONG MD Ot I73.9 PERIPHERAL VASCULAR DISEASE, UNSPECIFIED 08/29/2017 SHAY HONG MD Ot R25.2 CRAMP AND SPASM 08/29/2017 BO BALTAZAR Ot E78.2 MIXED HYPERLIPIDEMIA 08/29/2017 BO BALTAZAR Ot I10 ESSENTIAL (PRIMARY) HYPERTENSION 08/29/2017 BO BALTAZAR Ot R06.00 DYSPNEA, UNSPECIFIED 08/29/2017 BO BALTAZAR Ot R07.89 OTHER CHEST PAIN 08/29/2017 JESS EL MD Ot E78.2 MIXED HYPERLIPIDEMIA 08/29/2017 JESS EL MD Ot I10 ESSENTIAL (PRIMARY) HYPERTENSION 08/29/2017 JESS EL MD Ot J44.9 CHRONIC OBSTRUCTIVE PULMONARY DISEASE, U 08/29/2017 JESS EL MD Ot R06.00 DYSPNEA, UNSPECIFIED 08/29/2017 JESS EL MD Ot R07.9 CHEST PAIN, UNSPECIFIED 08/30/2017 Ot 397.0 TRICUSPID VALVE DISEASE 08/30/2017 Ot 424.0 MITRAL VALVE DISORDER 08/30/2017 Ot 429.3 CARDIOMEGALY 08/30/2017 Ot 786.09 RESPIRATORY ABNORM NEC 08/30/2017 Ot 786.50 CHEST PAIN NOS 08/30/2017 Ot 414.00 CORON ATHEROSCLER NOS TYPE VESSEL, NATIV 08/30/2017 Ot 786.09 RESPIRATORY ABNORM NEC 08/30/2017 Ot 550.90 UNILAT INGUINAL HERNIA 08/30/2017 Ot V72.63 PRE- PROCEDURAL LABORATORY EXAMINATION 08/30/2017 Ot V74.8 SCREEN- BACTERIAL DIS NEC 08/30/2017 Ot V72.84 EXAM PRE- OPERATIVE NOS 08/30/2017 Kirill PIERCE MD Ot 603.9 HYDROCELE NOS 08/30/2017 SHAY HONG MD Ot 593.9 RENAL URETERAL DIS NOS 08/30/2017 SHAY HONG MD Ot 753.10 CYSTIC KIDNEY DISEASE, UNSPECIFIED 08/30/2017 KALINA SIMONS, YADI Howard Ot M79.661 PAIN IN RIGHT LOWER LEG 08/30/2017 YADI GILMAN MD Ot Z53.21 PROC/TRTMT NOT CRD OUT D/T PT LV BEF SEE 08/30/2017 SHAY HONG MD Ot M79.604 PAIN IN RIGHT LEG 08/30/2017 SHAY HONG MD Ot I73.9 PERIPHERAL VASCULAR DISEASE, UNSPECIFIED 08/30/2017 SHAY HONG MD Ot R25.2 CRAMP AND SPASM 08/30/2017 BO BALTAZAR Ot E78.2 MIXED HYPERLIPIDEMIA 08/30/2017 BO BALTAZAR Ot I10 ESSENTIAL (PRIMARY) HYPERTENSION 08/30/2017 BO BALTAZAR Ot R06.00 DYSPNEA, UNSPECIFIED 08/30/2017 BO BALTAZAR Ot R07.89 OTHER CHEST PAIN 08/30/2017 JESS EL MD Ot E78.2 MIXED HYPERLIPIDEMIA 08/30/2017 JESS EL MD Ot I10 ESSENTIAL (PRIMARY) HYPERTENSION 08/30/2017 JESS EL MD Ot J44.9 CHRONIC OBSTRUCTIVE PULMONARY DISEASE, U 08/30/2017 JESS EL MD Ot R06.00 DYSPNEA, UNSPECIFIED 08/30/2017 JESS EL MD Ot R07.9 CHEST PAIN, UNSPECIFIED 10/08/2017 ELVIN PHILLIPSINE E VIDEO LIBRARY ASSISTANT Ot J44.9 CHRONIC OBSTRUCTIVE PULMONARY DISEASE, U 10/08/2017 JACQUELINE, ANIBAL E VIDEO LIBRARY ASSISTANT Ot R05 COUGH 10/08/2017 JACQUELINE, ANIBAL E VIDEO LIBRARY ASSISTANT Ot R06.00 DYSPNEA, UNSPECIFIED 10/19/2017 JACQUELINE, ANIBAL E VIDEO LIBRARY ASSISTANT Ot R06.00 DYSPNEA, UNSPECIFIED 10/25/2017 ELVIN PHILLIPSINE E VIDEO LIBRARY ASSISTANT Ot J44.9 CHRONIC OBSTRUCTIVE PULMONARY DISEASE, U 10/25/2017 JACQUELINE, ANIBAL E VIDEO LIBRARY ASSISTANT Ot R05 COUGH 10/25/2017 JACQUELINE, ANIBAL E VIDEO LIBRARY ASSISTANT Ot R06.00 DYSPNEA, UNSPECIFIED 10/30/2017 JACQUELINE, ANIBAL E VIDEO LIBRARY ASSISTANT Ot J44.9 CHRONIC OBSTRUCTIVE PULMONARY DISEASE, U 10/30/2017 JACQUELINE, ANIBAL E VIDEO LIBRARY ASSISTANT Ot R05 COUGH 10/30/2017 JACQUELINE, ANIABL E VIDEO LIBRARY ASSISTANT Ot R06.00 DYSPNEA, UNSPECIFIED 11/07/2017 JACQUELINE, ANIBAL E VIDEO LIBRARY ASSISTANT Ot R06.00 DYSPNEA, UNSPECIFIED 11/12/2017 JACQUELINE, ANIBAL E VIDEO LIBRARY ASSISTANT Ot R06.00 DYSPNEA, UNSPECIFIED 12/04/2017 ELVIN PHILLIPSINE E VIDEO LIBRARY ASSISTANT Ot I31.3 PERICARDIAL EFFUSION (NONINFLAMMATORY) 12/04/2017 ELVIN PHILLIPSINE E VIDEO LIBRARY ASSISTANT Ot J98.4 OTHER DISORDERS OF LUNG 12/04/2017 ELVIN PHILLIPSINE E VIDEO LIBRARY ASSISTANT Ot I31.3 PERICARDIAL EFFUSION (NONINFLAMMATORY) 12/04/2017 ELVIN PHILLIPSINE E VIDEO LIBRARY ASSISTANT Ot J98.4 OTHER DISORDERS OF LUNG 02/20/2018 STAN SIMONS, Kirill NARAYAN Ot 603.9 HYDROCELE NOS 02/20/2018 SHAY HONG MD Ot 593.9 RENAL URETERAL DIS NOS 02/20/2018 SHAY HONG MD Ot 753.10 CYSTIC KIDNEY DISEASE, UNSPECIFIED 02/20/2018 YADI GILMAN MD, Ot M79.661 PAIN IN RIGHT LOWER LEG 02/20/2018 YADI GILMAN MD, Ot Z53.21 PROC/TRTMT NOT CRD OUT D/T PT LV BEF SEE 02/20/2018 SHAY HONG MD, Ot M79.604 PAIN IN RIGHT LEG 02/20/2018 SHAY HONG MD, Ot I73.9 PERIPHERAL VASCULAR DISEASE, UNSPECIFIED 02/20/2018 SHAY HONG MD, Ot R25.2 CRAMP AND SPASM 02/20/2018 BO BALTAZAR Ot E78.2 MIXED HYPERLIPIDEMIA 02/20/2018 BO BALTAZAR Ot I10 ESSENTIAL (PRIMARY) HYPERTENSION 02/20/2018 BO BALTAZAR Ot R06.00 DYSPNEA, UNSPECIFIED 02/20/2018 BO BALTAZAR Ot R07.89 OTHER CHEST PAIN 02/20/2018 JESS EL MD Ot E78.2 MIXED HYPERLIPIDEMIA 02/20/2018 JESS EL MD Ot I10 ESSENTIAL (PRIMARY) HYPERTENSION 02/20/2018 JESS EL MD Ot J44.9 CHRONIC OBSTRUCTIVE PULMONARY DISEASE, U 02/20/2018 JESS EL MD Ot R06.00 DYSPNEA, UNSPECIFIED 02/20/2018 JESS EL MD Ot R07.9 CHEST PAIN, UNSPECIFIED 02/20/2018 ANIBAL PHILLIPS APRN Ot J44.9 CHRONIC OBSTRUCTIVE PULMONARY DISEASE, U 02/20/2018 ANIBAL PHILLIPS APRN Ot R05 COUGH 02/20/2018 ANIBAL PHILLIPS APRN Ot R06.00 DYSPNEA, UNSPECIFIED 02/20/2018 ANIBAL PHILLIPS APRN Ot R06.00 DYSPNEA, UNSPECIFIED 02/20/2018 ANIBAL PHILLIPS APRN Ot I31.3 PERICARDIAL EFFUSION (NONINFLAMMATORY) 02/20/2018 ANIBAL PHILLIPS APRN Ot J98.4 OTHER DISORDERS OF LUNG 02/20/2018 JACQUELINE, ANIBAL aGrza VIDEO LIBRARY ASSISTANT Ot M79.89 OTHER SPECIFIED SOFT TISSUE DISORDERS 03/19/2018 JACQUELINEANIBAL VIDEO LIBRARY ASSISTANT Ot I31.3 PERICARDIAL EFFUSION (NONINFLAMMATORY) 03/19/2018 JACQUELINEANIBAL VIDEO LIBRARY ASSISTANT Ot J98.4 OTHER DISORDERS OF LUNG 03/19/2018 AJCQUELINE, ANIBAL Garza VIDEO LIBRARY ASSISTANT Ot M79.89 OTHER SPECIFIED SOFT TISSUE DISORDERS 03/21/2018 ANIBAL PHILLIPS VIDEO LIBRARY ASSISTANT Ot I31.3 PERICARDIAL EFFUSION (NONINFLAMMATORY) 03/21/2018 JACQUELINE, ANIBAL Garza VIDEO LIBRARY ASSISTANT Ot J98.4 OTHER DISORDERS OF LUNG 03/21/2018 JACQUELINE, ANIBAL Garza VIDEO LIBRARY ASSISTANT Ot M79.89 OTHER SPECIFIED SOFT TISSUE DISORDERS 03/26/2018 JACQUELINEANIBAL VIDEO LIBRARY ASSISTANT Ot J98.4 OTHER DISORDERS OF LUNG 04/04/2018 JACQUELINE, ANIBAL Garza VIDEO LIBRARY ASSISTANT Ot J98.4 OTHER DISORDERS OF LUNG 04/09/2018 JACQUELINENAIBAL FLORES VIDEO LIBRARY ASSISTANT Ot J98.4 OTHER DISORDERS OF LUNG Procedures Code [place] [address] ROUTINE VENIPUNCTURE 03/19/2012 63154 CBC 03/19/2012 47683 CMP 03/19/2012 20308 LIPID PANEL 03/19/2012 0518091 GFR CALC (RESULT ONLY) 03/19/2012 72503 TSH 03/20/2012 84883 T4 03/20/2012 Cardiolog Jess El 04/09/2012 00663 ROUTINE VENIPUNCTURE 07/18/2012 04773 A1C (IN-HOUSE) 07/18/2012 71362 LIPID PANEL 07/18/2012 84256 INSULIN LEVEL 07/19/2012 77961 ROUTINE VENIPUNCTURE 08/02/2012 63014 PSA TOTAL 08/02/2012 17891 CULTURE STOOL 08/19/2012 28125 STOOL FOR POLYS & LEUKOCYTES 08/20/2012 57472 CLOSTRIDIUM (C-DIFF) 08/20/2012 15409 STOOL FOR O & P 08/27/2012 16110 ROUTINE VENIPUNCTURE 11/12/2012 73656 LIVER PANEL (LFT) 11/12/2012 08532 LIPID PANEL 11/12/2012 G0008 FLU ADMINISTRATION ( MEDICARE ONLY) 03/28/2013 43901 A1C (IN-HOUSE) 11/12/2013 49741 ROUTINE VENIPUNCTURE 12/12/2013 65500 LIPID PANEL 12/12/2013 71931 LIVER PANEL (LFT) 12/12/2013 61566 A1C (IN-HOUSE) 03/19/2014 Results Test Result Range [...] 7-25 CREATININE 0.69 mg/dL 0.70-1.18 eGFR NON-AFR. AUSTRAL[place] 95 mL/min/1.73m2 > OR=60 eGFR 110 mL/min/1.73m2 [...] 9.7 fL 7.5-12.5 ABSOLUTE NEUTROPHILS 3808 cells/uL [phone] ABSOLUTE LYMPHOCYTES 1047 cells/uL 850-3900 ABSOLUTE MONOCYTES [...] culture - 06/23/17 20:23 Bacterial urine culture [id number] NRG COLONY COUNT <10,000 NRG FTX;REPORTABLE NO [...] indirect bilirubin measurement (mass/volume) 0.3 mg/ dL NR Whole blood basic metabolic panel - 08/16/17 [...] automated white blood cell (WBC) differential - 08/28/17 22:00 Blood leukocytes automated count (number/volume) 6.3 10*3/uL 4.3-11.0 Blood erythrocytes automated count (number/volume) 4.55 10*6/uL 4.35-5.85 Venous blood hemoglobin measurement (mass/volume) 13.9 g/dL 13.3-17.7 Blood hematocrit (volume fraction) 40 % 40-54 Automated erythrocyte mean corpuscular volume 87 [foz_us] 80-99 Automated erythrocyte mean corpuscular hemoglobin (mass per erythrocyte) 31 pg 25-34 Automated erythrocyte mean corpuscular hemoglobin concentration measurement ( mass/volume) 35 g/dL 32-36 Automated erythrocyte distribution width ratio 13.6 % 10.0-14.5 Automated blood platelet count (count/volume) 214 10*3/uL 130-400 Automated blood platelet mean volume measurement 9.7 [foz_us] 7.4-10.4 Automated blood neutrophils/100 leukocytes 64 % 42-75 Automated blood lymphocytes/100 leukocytes 19 % 12-44 Blood monocytes/100 leukocytes 13 % 0-12 Automated blood eosinophils/100 leukocytes 4 % 0-10 Automated blood basophils/100 leukocytes 0 % 0-10 Blood neutrophils automated count (number/volume) 4.1 10*3 1.8-7.8 Blood lymphocytes automated count (number/volume) 1.2 10*3 1.0-4.0 Blood monocytes automated count (number/volume) 0.8 10*3 0.0-1.0 Automated eosinophil count 0.2 10*3/uL 0.0-0.3 Automated blood basophil count (count/volume) 0.0 10*3/uL 0.0-0.1 Whole blood basic metabolic panel - 08/28/17 22:00 Serum or plasma sodium measurement (moles/volume) 141 mmol/L 135-145 Serum or plasma potassium measurement (moles/volume) 3.5 mmol/L 3.6-5.0 Serum or plasma chloride measurement (moles/volume) 107 mmol/L 98-107 Carbon dioxide 23 mmol/L 21-32 Serum or plasma anion gap determination (moles/volume) 11 mmol/L 5-14 Serum or plasma urea nitrogen measurement (mass/volume) 18 mg/dL 7-18 Serum or plasma creatinine measurement (mass/volume) 0.79 mg/dL 0.60-1.30 Serum or plasma urea nitrogen/creatinine mass ratio 23 NRG Serum or plasma creatinine measurement with calculation of estimated glomerular filtration rate > NRG Serum or plasma glucose measurement (mass/volume) 99 mg/dL 70-105 Serum or plasma calcium measurement (mass/volume) 8.8 mg/dL 8.5-10.1 Complete urinalysis with reflex to culture - 08/28/17 22:33 Urine color determination YELLOW NRG Urine clarity determination CLEAR NRG Urine pH measurement by test strip 5 5-9 Specific gravity of urine by test strip 1.020 1.016- 1.022 Urine protein assay by test strip, semi-quantitative 1+ NEGATIVE Urine glucose detection by automated test [...] detection in urine sediment by light microscopy 2-5 NRG Arterial blood gas measurement - 10/18/17 10:35 Blood pCO2 37 mm[Hg] 35-45 Blood pO2 80 mm[Hg] 79-93 Arterial blood bicarbonate measurement (moles/volume) 27 mmol/L 23-27 Arterial blood base excess by calculation 3.1 mmol/L -2.5 -2.5 Arterial blood oxygen saturation measurement 96 % 94-100 * Inhaled oxygen flow rate ROOM AIR NRG Arterial blood pH measurement with patient temperature correction 7.47 7.37-7.43 Arterial blood carbon dioxide, total measurement (moles/volume) 27.6 mmol/L 21.0-31.0 Body site RT RAD NRG Assessment of wrist artery patency prior to arterial puncture YES- POS NRG Setting of ventilation mode NO NRG Measurement of body temperature 99.4 NRG CMP - 10/24/17 14:40 GLUCOSE 110 mg/dL 65-99 UREA NITROGEN (BUN) 14 mg/dL 7-25 CREATININE 0.70 mg/dL 0.70-1.18 eGFR NON-AFR. [place]STR[place] 94 mL/min/1.73m2 > OR=60 eGFR 109 mL/min/1.73m2 > OR=60 BUN/CREATININE RATIO NOT APPLICABLE (calc) 6-22 SODIUM 140 mmol/L 135-146 POTASSIUM 3.8 mmol/L 3.5-5.3 CHLORIDE 108 mmol/L 98-110 CARBON DIOXIDE 26 mmol/L 20-31 CALCIUM 8.8 mg/dL 8.6-10.3 PROTEIN, TOTAL 6.0 g/dL 6.1-8.1 ALBUMIN 3.9 g/dL 3.6-5.1 GLOBULIN 2.1 g/dL (calc) 1.9-3.7 ALBUMIN/GLOBULIN RATIO 1.9 (calc) 1.0-2.5 BILIRUBIN, TOTAL 0.4 mg/dL 0.2-1.2 ALKALINE PHOSPHATASE 107 U/L 40-115 AST 22 U/L 10-35 ALT 17 U/L 9-46 CBC - 10/24/17 14:40 WHITE BLOOD CELL COUNT 6.2 Thousand/uL 3.8-10.8 RED BLOOD CELL COUNT 4.58 Million/uL 4.20-5.80 HEMOGLOBIN 13.6 g/dL 13.2-17.1 HEMATOCRIT 40.9 % 38.5-50.0 MCV 89.3 fL 80.0-100.0 MCH 29.7 pg 27.0-33.0 MCHC 33.3 g/dL 32.0-36.0 RDW 12.7 % 11.0-15.0 PLATELET COUNT 207 Thousand/uL 140-400 MPV 9.6 fL 7.5-12.5 ABSOLUTE NEUTROPHILS 4421 cells/uL 5932-0050 ABSOLUTE LYMPHOCYTES 1066 cells/uL 850-3900 ABSOLUTE MONOCYTES 552 cells/uL 200-950 ABSOLUTE EOSINOPHILS 130 cells/uL 15-500 ABSOLUTE BASOPHILS 31 cells/uL 0-200 NEUTROPHILS 71.3 % NRG LYMPHOCYTES 17.2 % NRG MONOCYTES 8.9 % NRG EOSINOPHILS 2.1 % NRG BASOPHILS 0.5 % NRG BNP - 10/24/17 14:40 B TYPE NATRIURETIC PEPTIDE (BNP) 20 pg/mL <100 Whole blood basic metabolic panel - 02/20/18 17:00 Serum or plasma sodium measurement (moles/volume) 139 mmol/L 135-145 Serum or plasma potassium measurement (moles/volume) 4.0 mmol/L 3.6-5.0 Serum or plasma chloride measurement (moles/volume) 105 mmol/L 98-107 Carbon dioxide 23 mmol/L 21-32 Serum or plasma anion gap determination (moles/volume) 11 mmol/L 5-14 Serum or plasma urea nitrogen measurement (mass/volume) 27 mg/dL 7-18 Serum or plasma creatinine measurement (mass/volume) 0.91 mg/dL 0.60-1.30 Serum or plasma urea nitrogen/creatinine mass ratio 30 NRG Serum or plasma creatinine measurement with calculation of estimated glomerular filtration rate > NRG Serum or plasma glucose measurement (mass/volume) 90 mg/dL 70-105 Serum or plasma calcium measurement (mass/volume) 9.3 mg/dL 8.5-10.1 Serum or plasma lithium measurement (moles/volume) - 02/20/18 17:00 BNP level 10.0 pg/mL <100.0 CMP - 03/25/18 09:06 GLUCOSE 97 mg/dL 65-99 UREA NITROGEN (BUN) 38 mg/dL 7-25 CREATININE 1.44 mg/dL 0.70-1.18 eGFR NON-AFR. [place]STR[place]IAN 48 mL/min/1.73m2 > OR=60 eGFR 55 mL/min/1.73m2 > OR=60 BUN/CREATININE RATIO 26 (calc) 6-22 SODIUM 141 mmol/L 135-146 POTASSIUM 4.7 mmol/L 3.5-5.3 CHLORIDE 107 mmol/L 98-110 CARBON DIOXIDE 26 mmol/L 20-32 CALCIUM 9.0 mg/dL 8.6-10.3 PROTEIN, TOTAL 6.3 g/dL 6.1-8.1 ALBUMIN 4.0 g/dL 3.6-5.1 GLOBULIN 2.3 g/dL (calc) 1.9-3.7 ALBUMIN/GLOBULIN RATIO 1.7 (calc) 1.0-2.5 BILIRUBIN, TOTAL 0.5 mg/dL 0.2-1.2 ALKALINE PHOSPHATASE 87 U/L 40-115 AST 17 U/L 10-35 ALT 16 U/L 9-46 Encounters ACCT No. Visit Date/Time Discharge Status Pt. Type Provider Facility Loc./Unit Complaint [id number] 06/16/2014 09:26:00 06/16/2014 23:59:59 CLS Outpatient SHAY HONG MD [id number] 05/26/2014 14:20:00 05/26/2014 23:59:59 CLS Outpatient SHAY HONG MD [id number] 04/15/2014 09:31:00 04/15/2014 23:59:59 CLS Outpatient FRANKIE ROCHE APRN [id number] 03/19/2014 13:52:00 03/19/2014 23:59:59 CLS Outpatient SHAY HONG MD [id number] 03/19/2014 13:52:00 03/19/2014 23:59:59 CLS Outpatient SHAY HONG MD [id number] 12/12/2013 08:05:00 12/12/2013 23:59:59 CLS Outpatient SHAY HONG MD [id number] 11/12/2013 10:24:00 11/12/2013 23:59:59 CLS Outpatient SHAY HONG MD [id number] 11/12/2013 10:24:00 11/12/2013 23:59:59 CLS Outpatient ARABELLA ALBERTS ABEL K [id number] 08/28/2013 13:45:00 08/28/2013 23:59:59 CLS Outpatient SHAY HONG MD [id number] 07/15/2013 10:48:00 07/15/2013 23:59:59 CLS Outpatient MONIKA GOMEZ MD [id number] 06/04/2013 08:44:00 06/04/2013 23:59:59 CLS Outpatient ABEL BELL DO [id number] 03/28/2013 13:47:00 03/28/2013 23:59:59 CLS Outpatient ABEL BELL DO [id number] 02/25/2013 13:11:00 02/25/2013 23:59:59 CLS Outpatient MONIKA GOMEZ MD [id number] 01/01/2013 16:26:00 01/01/2013 23:59:59 CLS Outpatient MONIKA GOMEZ MD [id number] 08/19/2012 10:30:00 08/19/2012 23:59:59 CLS Outpatient [id number] 08/02/2012 15:23:00 08/02/2012 23:59:59 CLS Outpatient MONIKA GOMEZ MD [id number] 07/18/2012 08:35:00 07/18/2012 23:59:59 CLS Outpatient MONIKA GOMEZ MD [id number] 03/19/2012 08:26:00 03/19/2012 23:59:59 [place] [id number] 03/19/2012 08:26:00 03/19/2012 23:59:59 CLS Outpatient KARL FERGUSON MD [id number] 11/12/2012 08:26:00 Document Registration [id number] 10/16/2012 15:11:00 Document Registration [id number] 08/02/2012 15:23:00 Document Registration [id number] 03/30/2016 08:44:00 Document Registration [id number] 03/08/2018 07:09:00 03/08/2018 23:59:59 CLS Preadmit JESS EL MD [facility] CARD CAROTID ARTERY STENOSIS, HTN,HYPERLIPDEMIA [id number] 02/20/2018 16:29:00 02/20/2018 23:59:59 CLS Outpatient ANIBAL PHILLIPS VIDEO LIBRARY ASSISTANT [facility] RAD LEG SWELLING [id number] 12/03/2017 09:02:00 12/03/2017 23:59:59 CLS Outpatient ANIBAL PHILLIPS VIDEO LIBRARY ASSISTANT [facility] RAD RESTRICTIVE LUNG DISEASE [id number] 10/18/2017 10:13:00 10/18/2017 23:59:59 CLS Outpatient ANIBAL PHILLIPS VIDEO LIBRARY ASSISTANT [facility] RT R06.00 [id number] 10/05/2017 12:28:00 10/05/2017 23:59:59 CLS Outpatient ANIBAL PHILLIPS VIDEO LIBRARY ASSISTANT [facility] RT COPD,COUGH,DYSPNEA [id number] 08/28/2017 21:27:00 08/28/2017 23:03:00 DIS Emergency FEI OTTO VIDEO LIBRARY ASSISTANT [facility] ER LOWER BACK PAIN [id number] 08/16/2017 10:07:00 08/16/2017 12:11:00 DIS Emergency YADI GILMAN MD [facility] ER FALL [id number] 06/23/2017 20:14:00 06/23/2017 21:30:00 DIS Emergency CANDIS SHORE MD [facility] ER POSS UTI [id number] 06/19/2017 14:25:00 06/19/2017 14:27:00 DIS Outpatient ANIBAL PHILLIPS VIDEO LIBRARY ASSISTANT [facility] SLEEP G47.1 [id number] 05/28/2017 15:04:00 05/28/2017 23:59:59 CLS Preadmit ANIBAL PHILLIPS VIDEO LIBRARY ASSISTANT [facility] RT COPD [id number] 05/10/2017 12:45:00 05/10/2017 23:59:59 CLS Outpatient BO BALTAZAR [facility] CARD R07.89 CHEST PAIN [id number] 04/17/2017 11:58:00 04/17/2017 23:59:59 CLS Outpatient JESS EL MD [facility] RAD I10 R07.89 R06.00 E78.2 [id number] 03/24/2017 16:55:00 03/24/2017 20:59:00 DIS Emergency MATT PURVIS DO [facility] ER BACK PAIN [id number] 10/13/2016 10:43:00 10/13/2016 13:00:00 DIS Emergency FEI OTTO VIDEO LIBRARY ASSISTANT [facility] ER DIZZY SLURRED SPEECH WEAKNESS [id number] 01/31/2016 07:51:00 01/31/2016 23:59:59 CLS Outpatient SHAY HONG MD [facility] RAD CRAMPS OF RT LOWER EXTRIMITY [id number] 01/20/2016 14:52:00 01/20/2016 23:59:59 CLS Outpatient SHAY HONG MD [facility] RAD RT LEG PAIN [id number] 01/20/2016 14:02:00 01/20/2016 23:59:59 CLS Emergency KALINA SIMONS, YADI Howard [facility] ER RT CALF PAIN [id number] 08/28/2015 17:53:00 08/28/2015 18:38:00 DIS Emergency RANDI HUNTER MD [facility] ER POST OP/INCISION ISSUES [id number] 08/25/2015 06:00:00 08/25/2015 10:30:00 DIS Outpatient JAELYN NINA MD [facility] SDC BILATERAL HYDROCELE [id number] 04/20/2015 18:12:00 04/21/2015 16:30:00 DIS Inpatient SHAY HONG MD [facility] 4TH PULMONARY EMBOLISM R LUNG , TIA [id number] 01/15/2015 10:41:00 01/15/2015 12:37:00 DIS Emergency FEI OTTO VIDEO LIBRARY ASSISTANT [facility] ER SLURRED SPEECH/UNSTEADY [id number] 06/09/2014 16:11:00 06/09/2014 18:52:00 DIS Emergency RANDI HUNTER MD [facility] ER SPITTING UP BLOOD [id number] 02/05/2014 09:29:00 02/05/2014 23:59:59 CLS Outpatient SHAY HONG MD [facility] RAD RENAL MASS [id number] 02/01/2014 09:28:00 02/01/2014 12:41:00 DIS Emergency FRANKIE JOHN DO [facility] ER ABD PAIN [id number] 08/23/2013 11:11:00 08/23/2013 13:05:00 DIS Emergency FEI OTTO APRN [facility] ER L SIDE ABD PAIN [id number] 04/16/2013 10:58:00 04/16/2013 11:55:00 DIS Emergency KALINA SIMONS, YADI Howard [facility] ER SUTURE REMOVAL [id number] 04/06/2013 15:59:00 04/06/2013 18:54:00 DIS Emergency DAYDAY RHODES [facility] ER LAC ON FINGER [id number] 01/27/2013 10:32:00 01/27/2013 23:59:59 CLS Outpatient Kirill PIERCE MD [facility] RAD 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 [id number] 04/15/2018 09:00:00 PEN Preadmit BO BALTAZAR [facility] CARD CAROTID ARTERY STENOSIS,HTN [id number] 04/10/2018 17:43:00 ACT Emergency SUSHIL ARCHERIS [facility] ER L HAND POSS FRACTURED FINGER [id number] 04/09/2018 14:00:00 ACT Outpatient ANIBAL PHILLIPS APRN [facility] PULM RESTRICTIVE LUNG DISEASE J98.4 [id number] 08/19/2015 10:29:00 Document Registration [id number] 06/05/2012 10:53:00 Document Registration [id number] 06/03/2012 13:48:00 Document Registration [id number] 05/30/2012 08:44:00 Document Registration [id number] 05/28/2012 10:33:00 Document Registration [id number] 03/20/2012 06:40:00 Document Registration [id number] 03/18/2012 20:06:00 Document Registration [id number] 03/12/2012 13:47:00 Document Registration [id number] 02/23/2012 13:19:00 Document Registration [id number] 10/24/2011 20:36:00 Document Registration [id number] 09/23/2011 18:57:00 Document Registration [id number] 08/22/2011 12:31:00 Document Registration [id number] 01/11/2011 18:44:00 Document Registration [id number] 07/05/2010 11:17:00 Document Registration [id number] 06/10/2010 10:25:00 Document Registration [id number] 01/15/2015 10:41:46 ACT Document Registration [id number] 01/27/2016 08:46:00 Document Registration [id number] 12/26/2017 11:00:00 12/26/2017 23:59:59 [facility] Outpatient FRANKIE ROCHE APRN [facility] [id number] 03/25/2018 09:20:00 Document Registration [id number] 10/24/2017 14:40:00 Document Registration [id number] 06/20/2017 08:20:00 Document Registration
--- NOTE | 2018-04-10 18:38 | Diagnostic Imaging Report ---
EXAM: HAND, LEFT, 3 VIEWS. INDICATION: [place] a pop in the fourth digit when opening a jar. COMPARISON: Bilateral hand radiographs, 08/16/2017. FINDINGS: No fracture or malalignment. Mild degenerative changes in the IP joints similar to the prior exam. No suspicious osteoblastic or lytic lesions. Soft tissue shadows are unremarkable. IMPRESSION: No acute radiographic findings in the left hand. Dictated by: Dictated on workstation # [id number]
--- NOTE | 2018-04-10 18:56 | ED Upper Extremity ---
General Chief Complaint: Upper Extremity Stated Complaint: L HAND POSS FRACTURED FINGER Nursing Triage Note: PT WAS OPENEING A JAR AN HOUR AGO WHEN HE HEARD AND FELT A LOUD POP IN HIS LEFT HAND. PT'S STATES SHE ALSO HEARD THE POP. PT VERBALIZES DECREASED SENSATION TO THE PALMAR SIDE OF HIS HAND. Nursing Sepsis Screen: No Definite Risk Source: patient Exam Limitations: no limitations History of Present Illness Date Seen by Provider: Apr 10, 2018 Time Seen by Provider: 17:55 Initial Comments Patient is a 72-year-old male who presents to the emergency room with complaints of left hand/left fourth finger pain. He reports that he was opening a jar 1 hour prior to arrival and felt a loud pop in the hand. He reports pain to the left hand and left fourth finger. He is becoming by his today. Normal capillary refill and pulses. Onset: just prior to arrival Pain/Injury Location: left hand, left 4th finger Method of Injury: twisted Modifying Factors: Worse With Movement Allergies and Home Medications Allergies Coded Allergies: codeine (Unverified Allergy, Severe, rash, 01/11/11) hydrocodone (Verified Allergy, Unknown, 08/19/15) lovastatin (Verified Allergy, Unknown, 08/19/15) Home Medications Albuterol Sulfate 6.7 Gm Hfa.aer.ad, 2 PUFF IH Q4H PRN for WHEEZING, (Reported) Alprazolam 0.5 Mg Tablet, 0.5 MG PO BID PRN for ANXIETY, (Reported) Amlodipine Besylate 5 Mg Tablet, 5 MG PO DAILY, (Reported) Cephalexin 500 Mg Capsule, 1 TAB PO BID Prescribed by: KAREN LOCKHART on 08/25/15 0910 Cyclobenzaprine HCl 10 Mg Tablet, 10 MG PO Q8H Prescribed by: MATT PURVIS on 03/24/17 204 Cyclobenzaprine HCl 5 Mg Tablet, 5 MG PO TID PRN for PAIN-MODERATE TO SEVERE Prescribed by: FEI OTTO on 08/28/17 225 Docusate Sodium 50 Mg Capsule, 50 MG PO HS PRN for CONSTIPATION, (Reported) Donepezil HCl 5 Mg Tablet, 5 MG PO HS, (Reported) Finasteride 5 Mg Tablet, 5 MG PO DAILY, (Reported) Memantine HCl 10 Mg Tablet, 10 MG PO BID, (Reported) [place]-3 Fatty Acids/Fish Oil 1 Each Capsule, 1 CAP PO BID, (Reported) Oxybutynin Chloride 5 Mg Tablet, 5 MG PO BID, (Reported) Polyethylene Glycol 3350 17 Gm Powd.pack, 17 GM PO DAILY PRN for CONSTIPATION, ( Reported) Pravastatin Sodium 40 Mg Tablet, 40 MG PO DAILY, (Reported) Sennosides 8.6 Mg Tablet, 17.2 MG PO DAILY, (Reported) take 2 (8.6mg) tabs Sulfamethoxazole/Trimethoprim 1 Each Tablet, 1 EACH PO BID Prescribed by: CANDIS SHORE on 06/23/172123 Tamsulosin HCl 0.4 Mg Cap.er.24h, 0.4 MG PO DAILY, (Reported) Tramadol HCl 50 Mg Tablet, 50 MG PO Q4H Prescribed by: MATT PURVIS on 03/24/172041 Trazodone HCl 100 Mg Tablet, 100 MG PO HS, (Reported) [Toradol] , 1 TAB PO PRN Prescribed by: KAREN LOCKHART on 08/25/15 0910 Patient Home Medication List Home Medication List Reviewed: Yes Review of Systems Constitutional: no symptoms reported, see HPI Musculoskeletal: see HPI, joint pain (left hand pain) Past Gcuwxlr-Pxtjjy-Kdrjuk Hx Past Med/Social Hx: Reviewed Nursing Past Med/Soc Hx Patient Social History Alcohol Use: Denies Use Recreational Drug Use: No Smoking Status: Former Smoker Recent Foreign Travel: No Contact w/Someone Who Travel: No Recent Infectious Disease Expo: Yes Recent Hopitalizations: No Physical Abuse: No Sexual Abuse: No Mistreated: No Fear: No Immunizations Up To Date Tetanus Booster (TDap): Less than 5yrs PED Vaccines UTD: Yes Date of Pneumonia Vaccine: Feb 18, 2015 Date of Influenza Vaccine: Mar 21, 2015 Seasonal Allergies Seasonal Allergies: No Past Medical History Surgeries: Yes (HERNIA REPAIR, CYSTOCELE) Abdominal, Orthopedic Respiratory: Yes COPD Currently Using CPAP: Yes Cardiac: Yes (DVT LEFT LEG) Deep Vein Thrombosis, High Cholesterol, Hypertension Neurological: Yes (mild alzheimer's ) Dementia, TIA Reproductive Disorders: No Genitourinary: Yes (RENAL CYST; INCONTINENCE, OVERACTIVE BLADDER) Benign Prostatic Hyperpl, Prostate Problems Gastrointestinal: Yes (hx of constipation issues) Chronic Constipation Musculoskeletal: Yes (GAIT INSTABILITY) Arthritis Endocrine: No (renal cyst) HEENT: No Hearing Impairment: Hard of Hearing Cancer: No Psychosocial: Yes Sleep Difficulties, Anxiety, Depression Integumentary: No Blood Disorders: Yes (hx of dvt) Adverse Reaction/Blood Tranf: No Family Medical History Reviewed Nursing Family Hx FH: heart disease 19 FATHER Physical Exam Vital Signs Vital Signs - First Documented 04/10/18 17:55 Temp 98.2 Pulse 91 Resp 20 B/P (MAP) 145/80 (101) Pulse Ox 96 O2 Delivery Room Air Capillary Refill : Less Than 3 Seconds Height, Weight, BMI Height: 5'6.00" Weight: 203lbs. 2.0oz. 92.412706gp; 28.12 BMI Method:Stated General Appearance: WD/WN, no apparent distress HEENT: PERRL/EOMI, normal ENT inspection, TMs normal, pharynx normal Cardiovascular: normal peripheral pulses, regular rate, rhythm, no edema, no gallop, no JVD, no murmur Respiratory: chest non-tender, lungs clear, normal breath sounds, no respiratory distress, no accessory muscle use Hand: normal inspection, Left, soft tissue tenderness (left 4th finger ring finger) Neurologic/Psychiatric: alert, normal mood/affect, oriented x 3 Skin: normal color, warm/dry Progress/Results/Core Measures Results/Orders My Orders Orders - ALETHEA ARCHER Hand, Left, 3 Views (04/10/18 17:54) Acetaminophen Tablet (Tylenol Tablet) (04/10/18 19:00) Medications Given in ED Current Medications Medications Dose Ordered Sig/Nathan Route Start Time Stop Time Status Last Admin Dose Admin Acetaminophen 1,000 mg ONCE ONCE PO 04/10/18 19:00 04/10/18 19:01 DC 04/10/18 19:07 1,000 MG Vital Signs/I&O 04/10/18 04/10/18 17:55 19:25 Temp 98.2 98.4 Pulse 91 87 Resp 20 20 B/P (MAP) 145/80 (101) 143/96 (112) Pulse Ox 96 96 O2 Delivery Room Air Room Air Blood Pressure Mean: 101 Diagnostic Imaging Diagonstic Imaging: Xray Plain Films/CT/US/NM/MRI: hand Comments NAME: SMILEYFRANKIE Peguero [facility] REC#: [id number] PT STATUS: REG ER : 1945 PHYSICIAN: ALETHEA ARCHER ADMIT DATE: 04/10/18/ER Signed Date of Exam: 04/10/18 HAND, LEFT, 3 VIEWS EXAM: HAND, LEFT, 3 VIEWS. INDICATION: [place] a pop in the fourth digit when opening a jar. COMPARISON: Bilateral hand radiographs, 08/16/2017. FINDINGS: No fracture or malalignment. Mild degenerative changes in the IP joints similar to the prior exam. No suspicious osteoblastic or lytic lesions. Soft tissue shadows are unremarkable. IMPRESSION: No acute radiographic findings in the left hand. Dictated by: Dictated on workstation # [id number] Dict: 04/10/181829 Trans: 04/10/182006 Interpreted by: KANWAL EUCEDA MD Electronically signed by: KANWAL EUCEDA MD 04/10/182006 Reviewed: Reviewed by Me Departure Impression Primary Impression: Sprain of left hand Disposition: 01 HOME, SELF-CARE Condition: Stable/Unchanged Departure-Patient Inst. Decision time for Depature: 18:56 Referrals: [facility] (PCP) Primary Care Physician FRANKIE ROCHE (Family) Primary Care Physician Patient Instructions: Hand Pain (DC) Add. Discharge Instructions: Tylenol and ibuprofen as directed by the bottle for pain relief. Wear the finger splint as needed for comfort. Follow-up with her primary care provider within 1 week for recheck. Return back to the emergency room for any worsening symptoms or concerns as needed. All discharge instructions reviewed with patient and/or family. Voiced understanding. ALETHEA ARCHER Apr 10, 2018 18:56
[2018-04-10] MEDS: ACETAMINOPHEN 500 MG TAB (TYLENOL) PO ONE (19:07)
[2018-04-10 19:25] VITALS: BP 143/96
== END | disposition home or self-care (01) ==
LOC: EDUNIT# 17:42 → ER 17:43
DX: S63.92XA Sprain of unspecified part of left wrist and hand, initial encounter (principal); J44.9 Chronic obstructive pulmonary disease, unspecified; I10 Essential (primary) hypertension; E78.00 Pure hypercholesterolemia, unspecified; G30.9 Alzheimer's disease, unspecified; F03.90 Unspecified dementia, unspecified severity, without behavioral disturbance, psychotic disturbance, mood disturbance, and anxiety; F41.9 Anxiety disorder, unspecified; F32.9 Major depressive disorder, single episode, unspecified; Z86.718 Personal history of other venous thrombosis and embolism; Z82.49 Family history of ischemic heart disease and other diseases of the circulatory system; Z87.448 Personal history of other diseases of urinary system; Z87.19 Personal history of other diseases of the digestive system; Z86.73 Personal history of transient ischemic attack (TIA), and cerebral infarction without residual deficits; Z88.5 Allergy status to narcotic agent; Z88.8 Allergy status to other drugs, medicaments and biological substances; Z79.51 Long term (current) use of inhaled steroids; Z87.891 Personal history of nicotine dependence; Z98.890 Other specified postprocedural states; X50.0XXA Overexertion from strenuous movement or load, initial encounter
CPT/HCPCS: 29130; 73130

== ENCOUNTER → 2018-04-15 | Outpatient (CLI) | payer MEDICARE, OTHER | LOC: CARD 08:32 | PROVIDERS: ATTEND Physician Assistant | DX: I10 Essential (primary) hypertension (principal); E78.5 Hyperlipidemia, unspecified; R60.9 Edema, unspecified; I08.1 Rheumatic disorders of both mitral and tricuspid valves | CPT/HCPCS: 93306 ==

== ENCOUNTER 2018-05-16 14:00 | Outpatient (RCR) | payer MEDICARE, OTHER ==
--- NOTE | 2018-03-04 13:44 | Pulmonary Rehab Eval/Txmt Plan ---
Pulmonary Rehab Initial Eval Information Paper Evaluation Completed: Yes Date: Mar 04, 2018 Therapist: ALBERTO Diagnosis: RLD Referring Physician: ANIBAL PHILLIPS APRN Pulmonary Rehab Treatment Plan Treatment P Treatment Periord: Initial Diagnosis Diagnosis: J98.4 RLD Date: Mar 04, 2018 Barriers to Learning Barriers: Hearing Impaired, Cognitive, Literacy PT SEEMS TO HAVE HIGH ANXIETY; HE SOMETIMES HAS A HARD TIME COMPREHENDING QUESTIONS. HIS ACCOMPANIES HIM AND HELPS WITH QUESTIONAIRS. Assessment/Problems Exercise: Deconditioning, Decreased Exer Tolerance, No Regular Exercise, Sedentary Type: PT OVERALL HEALTH DIMINISHED Initial MET Level: 1 Aerobic Exercise/Goals Freq: time per week minus [place]: 2 Intensity: 1 MET Level=: 2 Type: Arm Ergometry, Bike, Scifi/Nustep, Treadmill, Walking Resistance Exercise/Goals Frequency: 2 Itensity: 1 Type: Dumbells, Hand Weights PT VERY DEBILITATED; EXERCISE PER PT'S TOLERANCE TO IMPROVE: MOBILITY STRENGTH ENDURANCE AND SOA FRANKIE CHEN DO Mar 04, 2018 13:44
[2018-03-26 14:00] VITALS: BP 130/70
[2018-03-26 15:00] VITALS: BP 122/74
[2018-04-04 14:00] VITALS: BP 130/71
[2018-04-04 15:00] VITALS: BP 132/73
[2018-04-09 14:00] VITALS: BP 140/80
[2018-04-09 14:45] VITALS: BP 140/88
[2018-04-18 13:55] VITALS: BP 140/87
[2018-04-30 13:50] VITALS: BP 120/60
[2018-04-30 14:30] VITALS: BP 143/60
[2018-05-02 14:00] VITALS: BP 160/60
[2018-05-02 15:00] VITALS: BP 150/60
[2018-05-16 13:53] VITALS: BP 148/60
[2018-05-16 14:39] VITALS: BP 150/60
== END 2018-06-02 | disposition home or self-care (01) ==
LOC: PULM 14:00
PROVIDERS: ATTEND Nurse Practitioner Family
DX: J98.4 Other disorders of lung (principal)

== ENCOUNTER 2019-01-31 21:35 | Emergency (ER) | payer MEDICARE, OTHER ==
[~2019-01-31] VITALS: Ht 167 cm; Wt 86.8 kg
[~2019-01-31 21:35] MED LIST changes: -AMLO5TAB7 PO; +AMLO5TAB9 PO
[2019-01-31] MEDS ORDERED: NS IV 1000 ML 1,000 ML IV SCH (22:16)
[2019-01-31] MEDS ORDERED: fentaNYL INJECTION 100 MCG/2 ML AMP IVP ONE (22:30)
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
[2019-01-31 22:31] LABS: HEMOGLOBIN 11.6 G/DL (13.3-17.7); MEAN PLATELET VOLUME 9.5 FL (7.4-10.4); RED CELL DISTRIBUTION WIDTH 13.4 % (10.0-14.5); WHITE BLOOD COUNT 9.8 10^3/uL (4.3-11.0)
[2019-01-31 22:52] LABS: ALANINE AMINOTRANSFERASE 19 U/L (0-55); ALBUMIN 3.8 GM/DL (3.2-4.5); ALKALINE PHOSPHATASE 110 U/L (40-136); BILIRUBIN,DIRECT 0.2 MG/DL (0.0-0.3); BILIRUBIN,INDIRECT 0.1 MG/DL; BILIRUBIN,TOTAL 0.3 MG/DL (0.1-1.0); BUN/CREATININE RATIO 25; CALCIUM 9.1 MG/DL (8.5-10.1); CARBON DIOXIDE 25 MMOL/L (21-32); CHLORIDE 104 MMOL/L (98-107); CREATININE SERUM 0.92 MG/DL (0.60-1.30); GFR ESTIMATED > 60; GLUCOSE 181 MG/DL (70-105); POTASSIUM 3.4 MMOL/L (3.6-5.0); SODIUM 140 MMOL/L (135-145); TOTAL PROTEIN 6.3 GM/DL (6.4-8.2)
[2019-01-31] MEDS ORDERED: IOHEXOL 350 MG/ML 100 ML (OMNIPAQUE 350) VIAL IV ONE (23:15)
[2019-01-31] MEDS ORDERED: HOLD METFORMIN - RECEIVED CONTRAST 20 ML VIAL IV SCH (23:15)
[2019-01-31] MEDS ORDERED: NS 100 ML (IVPB) BAG IV ONE (23:15)
--- NOTE | 2019-01-31 23:45 | NUR ---
PCCT cleaned wounds with NS and chlorhexidine solution. Wounds dried and drsg applied to rt forearm. See trauma flow sheet for wound description.
[2019-02-01 00:11] LABS: BILIRUBIN,URINE NEGATIVE (NEGATIVE); CLARITY,URINE CLEAR; COLOR,URINE YELLOW; GLUCOSE, URINE (UA) 2+ (NEGATIVE); KETONES,URINE NEGATIVE (NEGATIVE); LEUKOCYTE ESTERASE ,URINE 1+ (NEGATIVE); NITRITE,URINE NEGATIVE (NEGATIVE); PH,URINE 6.5 (5-9); PROTEIN,URINE 1+ (NEGATIVE); UROBILINOGEN,URINE NORMAL (NORMAL)
[2019-02-01 00:15] LABS: BACTERIA,URINE NEGATIVE /HPF; SQUAMOUS EPITHELIAL CELL,UR RARE /HPF; WBC,URINE 0-2 /HPF
[2019-02-01 01:13] VITALS: BP 140/91
--- NOTE | 2019-02-01 06:54 | Diagnostic Imaging Report ---
PROCEDURE: CT head and CT cervical spine without contrast. TECHNIQUE: Multiple contiguous axial images were obtained through the brain and cervical spine without the use of intravenous contrast. Sagittal and coronal reformations through the cervical spine were then performed. Auto Exposure Controls were utilized during the CT exam to meet ALARA standards for radiation dose reduction. INDICATION: Trauma. COMPARISON: 08/16/2017. FINDINGS: CT head: No intracranial hemorrhage, mass effect, hydrocephalus or extra-axial fluid collections. No CT evidence for territorial infarction. Osseous structures are intact. The paranasal sinuses and mastoids are unremarkable. CT cervical spine: Normal alignment. Vertebral body heights are preserved. No fractures. Moderate degenerative endplate changes. No high-grade spinal canal narrowing is evident on soft tissue windows. The visualized paravertebral soft tissues are unremarkable. IMPRESSION: No acute intracranial or cervical spine CT findings. Dictated by: Dictated on workstation # [id number]
--- NOTE | 2019-02-01 07:25 | Diagnostic Imaging Report ---
EXAM: CHEST 1 VIEW, AP/PA ONLY INDICATION: Trauma. COMPARISON: CT angio chest 02/20/2018. FINDINGS: Normal heart size and central pulmonary vascularity. No focal pulmonary opacity, pleural effusion or pneumothorax. No acute osseous findings. IMPRESSION: No acute cardiopulmonary findings. Dictated by: Dictated on workstation # [id number]
--- NOTE | 2019-02-01 07:53 | Diagnostic Imaging Report ---
PROCEDURE: CT chest, abdomen, and pelvis with contrast. TECHNIQUE: Multiple contiguous axial images were obtained through the chest, abdomen, and pelvis after the administration of intravenous contrast. Auto Exposure Controls were utilized during the CT exam to meet ALARA standards for radiation dose reduction. INDICATION: Fall. Head injury. Right-sided back pain. COMPARISON: CT chest 12/03/2017. CT abdomen and pelvis 08/28/2017. FINDINGS: Chest: No dense consolidation in the lungs. No pleural effusion or pneumothorax. Small pericardial effusion measuring up to 0.6 cm similar to the prior exam. Normal heart size. Normal caliber thoracic aorta and central pulmonary arteries. No mediastinal, hilar or axillary lymphadenopathy. Osseous structures are intact. Abdomen and pelvis: Dense mass in the right adrenal gland measuring up to 3.8 cm with adjacent stranding suspicious for an adrenal hemorrhage. Liver, gallbladder, pancreas, spleen, left adrenal gland, collecting systems and bladder are unremarkable. Enlarged prostate. Several low-attenuation lesions in the liver likely represent benign cysts. There is more complicated mass that appears to enhance in the posterior left kidney measuring up to 1.3 cm. This is new compared to the prior exam. No evidence of bowel obstruction. No lymphadenopathy. No free intraperitoneal air. Advanced spondylotic changes in the spine. No acute osseous findings identified. IMPRESSION: 1. High density mass in the right adrenal gland and adjacent stranding consistent with an adrenal hematoma given the history of trauma. 2. Stable small pericardial effusion. 3. Indeterminate 1.3 cm lesion in the left kidney appears to enhance. Recommend dedicated multiphase contrast-enhanced cross-sectional imaging for further evaluation on a nonemergent basis. Report given to ER charge nurse (Jenelle) at 7:52 a.m. 02/01/2019/cb Dictated by: Dictated on workstation # [id number]
== END 2019-02-01 01:13 | disposition home or self-care (01) ==
LOC: EDUNIT# 21:35 → ER 21:38
DX: S00.03XA Contusion of scalp, initial encounter (principal); S37.019A Minor contusion of unspecified kidney, initial encounter; S20.211A Contusion of right front wall of thorax, initial encounter; S40.811A Abrasion of right upper arm, initial encounter; S40.812A Abrasion of left upper arm, initial encounter; I10 Essential (primary) hypertension; E78.00 Pure hypercholesterolemia, unspecified; J44.9 Chronic obstructive pulmonary disease, unspecified; F03.90 Unspecified dementia, unspecified severity, without behavioral disturbance, psychotic disturbance, mood disturbance, and anxiety; F31.9 Bipolar disorder, unspecified; F41.9 Anxiety disorder, unspecified; Z86.73 Personal history of transient ischemic attack (TIA), and cerebral infarction without residual deficits; Z79.01 Long term (current) use of anticoagulants; Z86.718 Personal history of other venous thrombosis and embolism; Z88.5 Allergy status to narcotic agent; Z88.8 Allergy status to other drugs, medicaments and biological substances; Z82.49 Family history of ischemic heart disease and other diseases of the circulatory system; V03.10XA Pedestrian on foot injured in collision with car, pick-up truck or van in traffic accident, initial encounter; Y92.410 Unspecified street and highway as the place of occurrence of the external cause
CPT/HCPCS: 36415; 70450; 71045; 71260; 72125; 74177; 80048; 80076; 80320; 81000; 84484; 85027; 86850; 86900; 86901; 93005; 93041

== ENCOUNTER → 2020-03-22 | Outpatient (CLI) | payer MEDICARE, OTHER ==
[~2020-03-22] MED LIST changes: +AMLO-250 PO; -AMLO5TAB9 PO; -MEMA10TA22 PO; +MEMA10TA57 PO; +OXYB5TAB13 PO; -OXYB5TAB9 PO; -TRAZ-190 PO; +TRAZ-227 PO
== END ==
LOC: RAD 13:22
PROVIDERS: ATTEND Nurse Practitioner Community Health
DX: M46.92 Unspecified inflammatory spondylopathy, cervical region (principal); Z53.8 Procedure and treatment not carried out for other reasons

== ENCOUNTER → 2020-05-10 | Outpatient (CLI) | payer MEDICARE, OTHER | LOC: LABNPT 05:02 | PROVIDERS: ATTEND Orthopaedic Surgery Orthopaedic Trauma | DX: Z01.812 Encounter for preprocedural laboratory examination (principal); Z20.828 Contact with and (suspected) exposure to other viral communicable diseases | CPT/HCPCS: 87635 ==

== ENCOUNTER 2020-05-27 10:46 | Emergency (ER) | payer MEDICARE, OTHER ==
[~2020-05-27] VITALS: Ht 157.4 cm; Wt 87.9 kg
--- NOTE | 2020-05-27 11:15 | NUR ---
Hydrocodone removed from allergy list per pt's . reports pt is currently hydrocodone due to recent neck surgery.
[2020-05-27 11:46] LABS: BASOPHILS % (AUTO) 0 % (0-10); EOSINOPHILS # (AUTO) 0.2 10^3/uL (0.0-0.3); EOSINOPHILS % (AUTO) 2 % (0-10); HEMATOCRIT 38 % (40-54); HEMOGLOBIN 12.2 g/dL (13.3-17.7); LYMPHOCYTES % (AUTO) 11 % (12-44); MEAN CORPUSCULAR HEMOGLOBIN 30 pg (25-34); MEAN CORPUSCULAR HGB CONC 32 g/dL (32-36); MEAN CORPUSCULAR VOLUME 94 fL (80-99); MEAN PLATELET VOLUME 10.1 fL (9.0-12.2); MONOCYTES # (AUTO) 0.9 10^3/uL (0.0-1.0); MONOCYTES % (AUTO) 10 % (0-12); NEUTROPHILS # (AUTO) 6.7 10^3/uL (1.8-7.8); NEUTROPHILS % (AUTO) 76 % (42-75); PLATELET COUNT 257 10^3/uL (130-400); WHITE BLOOD COUNT 8.9 10^3/uL (4.3-11.0)
[2020-05-27 11:52] LABS: BILIRUBIN,URINE NEGATIVE (NEGATIVE); CLARITY,URINE CLEAR; COLOR,URINE YELLOW; GLUCOSE, URINE (UA) NEGATIVE (NEGATIVE); KETONES,URINE NEGATIVE (NEGATIVE); LEUKOCYTE ESTERASE ,URINE NEGATIVE (NEGATIVE); NITRITE,URINE NEGATIVE (NEGATIVE); PH,URINE 5.5 (5-9); PROTEIN,URINE NEGATIVE (NEGATIVE)
[2020-05-27 11:58] LABS: BACTERIA,URINE TRACE /HPF; SQUAMOUS EPITHELIAL CELL,UR 0-2 /HPF
[2020-05-27 12:01] LABS: CHLORIDE 105 MMOL/L (98-107); POTASSIUM 4.8 MMOL/L (3.6-5.0); SODIUM 139 MMOL/L (135-145)
[2020-05-27 12:02] LABS: CALCIUM 9.1 MG/DL (8.5-10.1)
[2020-05-27 12:04] LABS: GLUCOSE 88 MG/DL (70-105); TOTAL PROTEIN 6.8 GM/DL (6.4-8.2)
[2020-05-27 12:05] LABS: BILIRUBIN,TOTAL 0.3 MG/DL (0.1-1.0); CARBON DIOXIDE 20 MMOL/L (21-32)
[2020-05-27 12:07] LABS: ALKALINE PHOSPHATASE 122 U/L (40-136); CREATININE SERUM 1.07 MG/DL (0.60-1.30); GFR ESTIMATED > 60
[2020-05-27 12:08] LABS: BUN/CREATININE RATIO 29
[2020-05-27 12:10] LABS: ALANINE AMINOTRANSFERASE 16 U/L (0-55)
--- NOTE | 2020-05-27 12:59 | ED Cardiac General ---
History of Present Illness General Chief Complaint: Cardiac/General Problems Stated Complaint: IRR HEART RATE/LOW BP Nursing Triage Note: Pt ambulatory with cane to ED. Pt's present as pt has dementia. reports recent low BP of 89/50 with irregular heartbeat. reports pt has "been drifting off today." Pt reports feeling tired. Source: patient, spouse (CRISTELA COLLINS MED STUDENT) History of Present Illness Date Seen by Provider: May 27, 2020 Time Seen by Provider: 12:25 Initial Comments 74 y/o M brought into the Emergency Department by his for complaints of low bp and irregular heart rate that started Sunday. Pt was drowsy and his answered most of the questions. Pt had spinal surgery on May 13 and had a home health visit on Sunday. Home health and his primary physician suggested he come to the ED because they noticed his bp was 82/50 and his heart rate was irregular. Pt has mild leg edema but denies OCHOA, vision changes, dizziness, or numbness/tingling. Pt states his medications have been helping at home and denies previous occurrences. Blood pressure in the ED is 97/63. (CRISTELA COLLINS MED STUDENT) Allergies and Home Medications Allergies Coded Allergies: codeine (Unverified Allergy, Severe, rash, 01/11/11) lovastatin (Verified Allergy, Unknown, 08/19/15) Home Medications Albuterol Sulfate 6.7 Gm Hfa.aer.ad, 2 PUFF IH Q4H PRN for WHEEZING, (Reported) Alprazolam 0.5 Mg Tablet, 0.5 MG PO BID PRN for ANXIETY, (Reported) Amlodipine Besylate 5 Mg Tablet, 5 MG PO DAILY, (Reported) Cephalexin 500 Mg Capsule, 1 TAB PO BID Prescribed by: KAREN LOCKHART on 08/25/15 09 Cyclobenzaprine HCl 10 Mg Tablet, 10 MG PO Q8H Prescribed by: MATT PURVIS on 03/24/172041 Cyclobenzaprine HCl 5 Mg Tablet, 5 MG PO TID PRN for PAIN-MODERATE TO SEVERE Prescribed by: FEI OTTO on 08/28/172254 Docusate Sodium 50 Mg Capsule, 50 MG PO HS PRN for CONSTIPATION, (Reported) Donepezil HCl 5 Mg Tablet, 5 MG PO HS, (Reported) Finasteride 5 Mg Tablet, 5 MG PO DAILY, (Reported) Memantine HCl 10 Mg Tablet, 10 MG PO BID, (Reported) [place]-3 Fatty Acids/Fish Oil 1 Each Capsule, 1 CAP PO BID, (Reported) Oxybutynin Chloride 5 Mg Tablet, 5 MG PO BID, (Reported) Polyethylene Glycol 3350 17 Gm Powd.pack, 17 GM PO DAILY PRN for CONSTIPATION, (Reported) Pravastatin Sodium 40 Mg Tablet, 40 MG PO DAILY, (Reported) Sennosides 8.6 Mg Tablet, 17.2 MG PO DAILY, (Reported) take 2 (8.6mg) tabs Sulfamethoxazole/Trimethoprim 1 Each Tablet, 1 EACH PO BID Prescribed by: CANDIS SHORE on 06/23/172123 Tamsulosin HCl 0.4 Mg Cap.er.24h, 0.4 MG PO DAILY, (Reported) Tramadol HCl 50 Mg Tablet, 50 MG PO Q4H Prescribed by: MATT PURVIS on 03/24/172041 Trazodone HCl 100 Mg Tablet, 100 MG PO HS, (Reported) [Toradol] , 1 TAB PO PRN Prescribed by: KAREN LOCKHART on 08/25/15 0910 Patient Home Medication List Home Medication List Reviewed: Yes (YADI GILMAN MD) Review of Systems Review of Systems Constitutional: No dizziness EENTM: No Blurred Vision, No Double Vision Respiratory: Denies Shortness of Air Cardiovascular: Denies Chest Pain; Edema (mild leg edema) Gastrointestinal: Denies Abdominal Pain Psychiatric/Neurological: Denies Headache, Denies Numbness, Denies Paresthesia, Denies Tingling (CRISTELA COLLINS MED STUDENT) Past Slxmheq-Euxgtv-Igguxr Hx Patient Social History Alcohol Use: Denies Use Recreational Drug Use: No Smoking Status: Former Smoker 2nd Hand Smoke Exposure: No Recent Foreign Travel: No Contact w/Someone Who Travel: No Recent Infectious Disease Expo: No Recent Hopitalizations: No (CRISTELA COLLINS MED STUDENT) Immunizations Up To Date Tetanus Booster (TDap): Less than 5yrs PED Vaccines UTD: Yes Date of Pneumonia Vaccine: Feb 18, 2015 Date of Influenza Vaccine: Mar 21, 2015 (CRISTELA COLLINS MED STUDENT) Seasonal Allergies Seasonal Allergies: No (CRISTELA COLLINS MED STUDENT) Past Medical History Surgeries: Yes (HERNIA REPAIR, CYSTOCELE, neck) Abdominal, Orthopedic Respiratory: Yes COPD Currently Using CPAP: Yes Cardiac: Yes (DVT LEFT LEG) Deep Vein Thrombosis, High Cholesterol, Hypertension Neurological: Yes (mild alzheimer's ) Dementia, TIA Reproductive Disorders: No Genitourinary: Yes (RENAL CYST; INCONTINENCE, OVERACTIVE BLADDER) Benign Prostatic Hyperpl, Prostate Problems Gastrointestinal: Yes (hx of constipation issues) Chronic Constipation Musculoskeletal: Yes (GAIT INSTABILITY) Arthritis Endocrine: No (renal cyst) HEENT: No Hearing Impairment: Hard of Hearing Cancer: No Psychosocial: Yes Sleep Difficulties, Anxiety, Depression Integumentary: No Blood Disorders: Yes (hx of dvt) Adverse Reaction/Blood Tranf: No (CRISTELA COLLINS STUDENT) Family Medical History FH: heart disease 19 FATHER Physical Exam Vital Signs Vital Signs - First Documented 05/27/20 11:08 Temp 37.1 Pulse 108 Resp 15 B/P (MAP) 127/79 (95) Pulse Ox 97 O2 Delivery Room Air (YADI GILMAN MD) Vital Signs Capillary Refill : Less Than 3 Seconds (CRISTELA COLLINS MED STUDENT) Height, Weight, BMI Height: 5'6.00" Weight: 201lbs. 0.8oz. 92.908688qh; 35.00 BMI Method:Stated Respiratory: Normal Breath Sounds, No Accessory Muscle Use, No Respiratory Distress (CRISTELA COLLINS MED STUDENT) General Appearance: No Apparent Distress (YADI GILMAN MD) Progress/Results/Core Measures Results/Orders Lab Results Laboratory Tests Test 05/27/20 11:38 05/27/20 11:45 Range/Units White Blood Count 8.9 4.3-11.0 10^3/uL Red Blood Count 4.02 L 4.30-5.52 10^6/uL Hemoglobin 12.2 L 13.3-17.7 g/dL Hematocrit 38 L 40-54 % Mean Corpuscular Volume 94 80-99 fL Mean Corpuscular Hemoglobin 30 25-34 pg Mean Corpuscular Hemoglobin Concent 32 32-36 g/dL Red Cell Distribution Width 12.5 10.0-14.5 % Platelet Count 257 130-400 10^3/uL Mean Platelet Volume 10.1 9.0-12.2 fL Immature Granulocyte % (Auto) 1 % Neutrophils (%) (Auto) 76 H 42-75 % Lymphocytes (%) (Auto) 11 L 12-44 % Monocytes (%) (Auto) 10 0-12 % Eosinophils (%) (Auto) 2 0-10 % Basophils (%) (Auto) 0 0-10 % Neutrophils # (Auto) 6.7 1.8-7.8 10^3/uL Lymphocytes # (Auto) 1.0 1.0-4.0 10^3/uL Monocytes # (Auto) 0.9 0.0-1.0 10^3/uL Eosinophils # (Auto) 0.2 0.0-0.3 10^3/uL Basophils # (Auto) 0.0 0.0-0.1 10^3/uL Immature Granulocyte # (Auto) 0.1 0.0-0.1 10^3/uL Sodium Level 139 135-145 MMOL/L Potassium Level 4.8 3.6-5.0 MMOL/L Chloride Level 105 98-107 MMOL/L Carbon Dioxide Level 20 L 21-32 MMOL/L Anion Gap 14 5-14 MMOL/L Blood Urea Nitrogen 31 H 7-18 MG/DL Creatinine 1.07 0.60-1.30 MG/DL Estimat Glomerular Filtration Rate > 60 BUN/Creatinine Ratio 29 Glucose Level 88 70-105 MG/DL Calcium Level 9.1 8.5-10.1 MG/DL Corrected Calcium 9.1 8.5-10.1 MG/DL Total Bilirubin 0.3 0.1-1.0 MG/DL Aspartate Amino Transf (AST/SGOT) 24 5-34 U/L Alanine Aminotransferase (ALT/SGPT) 16 0-55 U/L Alkaline Phosphatase 122 40-136 U/L C-Reactive Protein High Sensitivity 0.83 H 0.00-0.50 MG/DL Total Protein 6.8 6.4-8.2 GM/DL Albumin 4.0 3.2-4.5 GM/DL Urine Color YELLOW Urine Clarity CLEAR Urine pH 5.5 5-9 Urine Specific [place] 1.015 L 1.016-1.022 Urine Protein NEGATIVE NEGATIVE Urine Glucose (UA) NEGATIVE NEGATIVE Urine Ketones NEGATIVE NEGATIVE Urine Nitrite NEGATIVE NEGATIVE Urine Bilirubin NEGATIVE NEGATIVE Urine Urobilinogen 0.2 < = 1.0 MG/DL Urine Leukocyte Esterase NEGATIVE NEGATIVE Urine RBC (Auto) NEGATIVE NEGATIVE Urine RBC NONE /HPF Urine WBC NONE /HPF Urine Squamous Epithelial Cells 0-2 /HPF Urine Crystals NONE /LPF Urine Bacteria TRACE /HPF Urine Casts NONE /LPF Urine Mucus NEGATIVE /LPF Urine Culture Indicated NO (YADI GILMAN MD) My Orders Orders - YADI GILMAN MD Cbc With Automated Diff (05/27/20 11:24) Comprehensive Metabolic Panel (05/27/20 11:24) Hs C Reactive Protein (05/27/20 11:24) Ua Culture If Indicated (05/27/20 11:24) Ed Iv/Invasive Line Start (05/27/20 11:24) Ns Iv 1000 Ml (Sodium Chloride 0.9%) (05/27/20 13:30) (YADI GILMAN MD) Vital Signs/I&O 05/27/20 05/27/20 11:08 15:35 Temp 37.1 37.1 Pulse 108 87 Resp 15 15 B/P (MAP) 127/79 (95) 126/78 (95) Pulse Ox 97 97 O2 Delivery Room Air Room Air (YADI GILMAN MD) Blood Pressure Mean: 95 Progress Progress Note : Time: 12:30 Progress Note Hypotension - The current BP on the monitor is 97/63 which is an improvement. IV line was placed. CBC was ordered which showed RBC and Hgb/Hct were low, CO2 and BUN and CRP were elevated. UA was ordered which showed low specific gravity. No other significant findings were found. - At 1:45pm, the bp suhuut506/73. IV fluid was given. Irregular heart rate - EKG showed bigeminy which resolved. - discussed CPAP and it's proper use to prevent arrythmias. (CRISTELA COLLINS MED STUDENT) Initial ECG Impression Date: May 27, 2020 Initial ECG Impression Time: 11:07 Initial ECG Rate: 108 Initial ECG Rhythm: S.Tach Comment Sinus tachycardia with bigeminy. No ST elevation or depression. No axis deviation. (YADI GILMAN MD) Departure Impression Primary Impression: Bigeminy Additional Impressions: Generalized weakness Hypovolemia Disposition: 01 HOME, SELF-CARE Condition: Improved Departure-Patient Inst. Decision time for Depature: 15:24 (YADI GILMAN MD) Referrals: [facility] [place] (PCP) Primary Care Physician FRANKIE ROCHE (Family) Primary Care Physician Patient Instructions: NO INSTRUCTIONS GIVEN Add. Discharge Instructions: Significantly increase your consumption of water. It is important for you to drink well while on diuretic therapy such as Lasix (furosemide). Use your CPAP whenever you are sleeping, even during naps during the day. This will help give you energy would you are awake. If you are having trouble with your CPAP machine, please give Dr. Wick's office a phone call. Return to the emergency room if you have worsening symptoms. Call if you have questions or concerns. Follow-up with your non morse intercept technician as soon as possible regarding bigeminy. All discharge instructions reviewed with patient and/or family. Voiced understanding. Medical Student Attestation and Attending Note: I have seen and examined this patient personally along with Cristela Collins, MS 3. I agree with medical student note including history, physical, and assessments except where otherwise noted. Exam: General:, Alert, oriented, no acute distress HEENT: Normocephalic and atraumatic Neck: Rigid collar in place Heart: Regular rate and rhythm without murmur Lungs: Clear to auscultation bilaterally with normal effort Abdomen: Soft, nontender, nondistended Extremities: Nontender, mild lower extremity edema Neuropsych: Alert, oriented, no focal deficits Patient was evaluated with labs which were unremarkable. He was thought to be hypokalemic as he does not drink well and is on diuretic therapy. A liter of IV fluid was infused. This improved his blood pressure and level of alertness. He was feeling well and desired to return home. He has been excessively sleepy lately which may be in part due to his hydrocodone use. However, he is also not using his CPAP routinely for his sleep apnea. I encouraged him to use it properly. He has had some trouble with it and I encouraged him to have it evaluated by Dr. Wick's office. (YADI GILMAN MD) Copy Copies To 1: ABEL BELL ELIZABETH X MED STUDENT May 27, 2020 12:59 YADI GILMAN MD May 27, 2020 15:26
[2020-05-27] MEDS ORDERED: NS IV 1000 ML 1,000 ML IV SCH (13:30)
[2020-05-27 15:35] VITALS: BP 126/78
== END 2020-05-27 15:35 | disposition home or self-care (01) ==
LOC: EDUNIT# 10:46 → ER 10:49
DX: R00.8 Other abnormalities of heart beat (principal); R53.1 Weakness; E86.1 Hypovolemia; I10 Essential (primary) hypertension; J44.9 Chronic obstructive pulmonary disease, unspecified; E78.00 Pure hypercholesterolemia, unspecified; K59.09 Other constipation; F41.9 Anxiety disorder, unspecified; F32.9 Major depressive disorder, single episode, unspecified; N40.0 Benign prostatic hyperplasia without lower urinary tract symptoms; G30.9 Alzheimer's disease, unspecified; F02.80 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 classified elsewhere, unspecified severity, without behavioral disturbance, psychotic disturbance, mood disturbance, and anxiety; Z86.718 Personal history of other venous thrombosis and embolism; Z86.73 Personal history of transient ischemic attack (TIA), and cerebral infarction without residual deficits; Z87.891 Personal history of nicotine dependence
CPT/HCPCS: 36415; 80053; 81000; 85025; 86141; 93005

== ENCOUNTER → 2020-07-15 | Outpatient (CLI) | payer MEDICARE, OTHER | LOC: LABNPT 06:51 | PROVIDERS: ATTEND Nurse Practitioner Family | DX: Z53.9 Procedure and treatment not carried out, unspecified reason (principal) ==

== ENCOUNTER → 2020-07-26 | Outpatient (CLI) | payer MEDICARE, OTHER ==
[~2020-07-26] MED LIST changes: +CATHETER FLUSH 10 ML SYR IV PRN; +HOLD METFORMIN - RECEIVED CONTRAST 20 ML VIAL IV SCH; +IOHEXOL 350 MG/ML 100 ML (OMNIPAQUE 350) VIAL IV ONE; +NS 100 ML (IVPB) BAG IV ONE; +RT-ALBUTEROL SULF 2.5 MG/3 ML PRE-MIX VIAL INH ONE
[2020-07-26 08:07] LABS: CREATININE SERUM 0.85 MG/DL (0.60-1.30); GFR ESTIMATED > 60
[2020-07-26 08:08] LABS: BUN/CREATININE RATIO 20
--- NOTE | 2020-07-26 10:49 | Diagnostic Imaging Report ---
PROCEDURE: CT angiography of the chest with contrast. TECHNIQUE: Multiple contiguous axial images were obtained through the chest after uneventful bolus administration of intravenous contrast. 3D reconstructed CTA MIP acquisitions were also performed. Auto Exposure Controls were utilized during the CT exam to meet ALARA standards for radiation dose reduction. INDICATION: Shortness of air. COMPARISON: Correlation is made with CT chest from 01/31/2019. FINDINGS: Evaluation of the pulmonary arterial system is without evidence of thromboembolism. No filling defects are seen within central, lobar or segmental branches. Thoracic aorta is normal caliber. There is no dissection. The heart is enlarged. There is trace pericardial fluid. No pleural effusion is identified. There appears to be some interstitial scarring in both lung bases. No parenchymal consolidation is seen. There is no mass. Upper abdomen demonstrates decrease in size of previously noted right adrenal mass. IMPRESSION: 1. No evidence of pulmonary embolism or thoracic aortic dissection. 2. Cardiomegaly with trace pericardial effusion. 3. Pulmonary interstitial changes. No mass or lymphadenopathy is detected. 4. Decrease in size of right adrenal mass and CT from 01/31/2019. Dictated by: Dictated on workstation # [id number]
--- NOTE | 2020-07-26 12:36 | Diagnostic Imaging Report ---
PROCEDURE: US Venous Lower Ext Kevin. TECHNIQUE: Multiple real-time grayscale images were obtained over the lower extremities in various projections, bilaterally. Additional duplex Doppler and color Doppler images were also obtained. INDICATION: Bilateral lower extremity swelling. FINDINGS: There is no evidence of right or left lower extremity DVT. Both lower extremity deep venous systems demonstrate normal compressibility with normal response to augmentation and Valsalva. No fluid collection or mass is detected. IMPRESSION: No evidence of right or left lower extremity DVT. Dictated by: Dictated on workstation # [id number]
--- NOTE | 2020-07-26 13:14 | Diagnostic Imaging Report ---
Indication: Dysphasia. Study was performed in conjunction with speech pathology. Video fluoroscopy was performed during swallowing of barium multiple consistencies. The patient ingested thin barium as well as applesauce, banana, meat and cracker consistency. A total of 1 minute and 29 seconds of fluoroscopic time was utilized. Oral phase unremarkable. There is normal epiglottic tilt and laryngeal elevation. No laryngeal penetration or aspiration was observed. No significant residue is detected. Note is made of postoperative changes to the cervical spine from ACDF extending from C3 through at least C6. IMPRESSION: Unremarkable modified barium swallow. Dictated by: Dictated on workstation # [id number]
== END ==
LOC: RT 08:00
PROVIDERS: ATTEND Nurse Practitioner Family
DX: Z13.83 Encounter for screening for respiratory disorder NEC (principal); Z03.89 Encounter for observation for other suspected diseases and conditions ruled out; I51.7 Cardiomegaly; J84.9 Interstitial pulmonary disease, unspecified; M79.609 Pain in unspecified limb; M79.89 Other specified soft tissue disorders
CPT/HCPCS: 36415; 71275; 74230; 82565; 84520; 93970; 94060; 94729

== ENCOUNTER → 2020-07-27 | Outpatient (CLI) | payer MEDICARE, OTHER ==
[~2020-07-27] MED LIST changes: -CATHETER FLUSH 10 ML SYR IV PRN; -HOLD METFORMIN - RECEIVED CONTRAST 20 ML VIAL IV SCH; -IOHEXOL 350 MG/ML 100 ML (OMNIPAQUE 350) VIAL IV ONE; -NS 100 ML (IVPB) BAG IV ONE; -RT-ALBUTEROL SULF 2.5 MG/3 ML PRE-MIX VIAL INH ONE
== END ==
LOC: LABNPT 06:00
PROVIDERS: ATTEND Nurse Practitioner Family
DX: Z20.822 Contact with and (suspected) exposure to COVID-19 (principal)
CPT/HCPCS: 87635

== ENCOUNTER 2020-07-29 19:43 | Outpatient (CLI) | payer MEDICARE, OTHER | END 2020-07-30 06:45 | disposition home or self-care (01) | LOC: SLEEP 19:43 | PROVIDERS: ATTEND Nurse Practitioner Family | DX: Z01.89 Encounter for other specified special examinations (principal); G47.33 Obstructive sleep apnea (adult) (pediatric) | CPT/HCPCS: 95811 ==

== ENCOUNTER → 2020-08-12 | Outpatient (CLI) | payer MEDICARE, OTHER | LOC: LABNPT 07:10 | PROVIDERS: ATTEND Orthopaedic Surgery | DX: Z01.812 Encounter for preprocedural laboratory examination (principal); Z20.822 Contact with and (suspected) exposure to COVID-19 | CPT/HCPCS: 87635 ==

== ENCOUNTER 2020-09-06 10:17 | Emergency (ER) | payer MEDICARE, OTHER ==
[~2020-09-06] VITALS: Ht 167.7 cm; Wt 91.8 kg
--- NOTE | 2020-09-06 11:01 | ED Lower Extremity ---
General Chief Complaint: Lower Extremity Stated Complaint: L LEG SWOLLEN Nursing Triage Note: TO ED PER W/C FROM [facility] WITH SWOLLEN LEGS PATIENT REPORTS HAD HIP REPLACEMENT ON AUGUST 16 LEG'S HAVE DUANE SWOLLEN SINCE. HAD FOLLOW UP WITH DR AT [address] [place] [address] ORTHO WAS TOLD TO FOLLOW UP WITH PCP WAS SENT BY [facility] TO ED. PATIENT REPORTS THAT HIS LEGS HAVE BEEN HANGNG DOWN AND NOT KEPPING THEM UP. Nursing Sepsis Screen: No Definite Risk Source: patient Exam Limitations: no limitations History of Present Illness Date Seen by Provider: Sep 06, 2020 Time Seen by Provider: 10:46 Initial Comments Patient presents ER by private conveyance from home with chief complaint that he had hip surgery about a week ago by Dr. Marie and has had swelling in his left lower extremity since then. He is not involved in any kind of physical therapy because he was told to do some stretching exercises at home by the surgeon. He went to the urgent care at his primary care provider's office and they saw some bruising on his knee and his swelling and thought he might have a blood clot and sent him to the ER. They related that his vitals were normal and he is on Eliquis already. He does have a history of blood clots. He also had a small area of redness at the top of his incision that he brought up to Dr. Marie and they were put on Keflex for about a week now. The patient denies any chest pain or worsening shortness of breath over his typical COPD. Allergies and Home Medications Allergies Coded Allergies: codeine (Unverified Allergy, Severe, rash, 01/11/11) lovastatin (Verified Allergy, Unknown, 08/19/15) Home Medications Albuterol Sulfate 6.7 Gm Hfa.aer.ad, 2 PUFF IH Q4H PRN for WHEEZING, (Reported) Alprazolam 0.5 Mg Tablet, 0.5 MG PO BID PRN for ANXIETY, (Reported) Amlodipine Besylate 5 Mg Tablet, 5 MG PO DAILY, (Reported) Cephalexin 500 Mg Capsule, 1 TAB PO BID Prescribed by: KAREN LOCKHART on 08/25/15 09 Cyclobenzaprine HCl 10 Mg Tablet, 10 MG PO Q8H Prescribed by: MATT PURVIS on 03/24/172041 Cyclobenzaprine HCl 5 Mg Tablet, 5 MG PO TID PRN for PAIN-MODERATE TO SEVERE Prescribed by: FEI OTTO on 08/28/172254 Docusate Sodium 50 Mg Capsule, 50 MG PO HS PRN for CONSTIPATION, (Reported) Donepezil HCl 5 Mg Tablet, 5 MG PO HS, (Reported) Finasteride 5 Mg Tablet, 5 MG PO DAILY, (Reported) Memantine HCl 10 Mg Tablet, 10 MG PO BID, (Reported) [place]-3 Fatty Acids/Fish Oil 1 Each Capsule, 1 CAP PO BID, (Reported) Oxybutynin Chloride 5 Mg Tablet, 5 MG PO BID, (Reported) Polyethylene Glycol 3350 17 Gm Powd.pack, 17 GM PO DAILY PRN for CONSTIPATION, (Reported) Pravastatin Sodium 40 Mg Tablet, 40 MG PO DAILY, (Reported) Sennosides 8.6 Mg Tablet, 17.2 MG PO DAILY, (Reported) take 2 (8.6mg) tabs Sulfamethoxazole/Trimethoprim 1 Each Tablet, 1 EACH PO BID Prescribed by: CANDIS SHORE on 06/23/172123 Tamsulosin HCl 0.4 Mg Cap.er.24h, 0.4 MG PO DAILY, (Reported) Tramadol HCl 50 Mg Tablet, 50 MG PO Q4H Prescribed by: MATT PURVIS on 03/24/172041 Trazodone HCl 100 Mg Tablet, 100 MG PO HS, (Reported) [Toradol] , 1 TAB PO PRN Prescribed by: KAREN LOCKHART on 08/25/15 0910 Patient Home Medication List Home Medication List Reviewed: Yes Review of Systems Constitutional: No chills, No fever EENTM: No ear discharge, No ear pain Respiratory: No cough, No hemoptysis Cardiovascular: No chest pain, No palpitations Gastrointestinal: No abdominal pain, No nausea, No vomiting Genitourinary: No discharge, No dysuria Musculoskeletal: see HPI; No back pain; joint pain All Other Systems Reviewed Negative Unless Noted: Yes Past Xxmetjq-Pihgdm-Zldqxt Hx Patient Social History Alcohol Use: Denies Use 2nd Hand Smoke Exposure: No Recent Infectious Disease Expo: No Recent Hopitalizations: No Immunizations Up To Date Tetanus Booster (TDap): Less than 5yrs PED Vaccines UTD: Yes Date of Pneumonia Vaccine: Feb 18, 2015 Date of Influenza Vaccine: Mar 21, 2015 Seasonal Allergies Seasonal Allergies: No Past Medical History Surgeries: Yes (HERNIA REPAIR, CYSTOCELE, neck) Abdominal, Orthopedic Respiratory: Yes COPD Currently Using CPAP: Yes Cardiac: Yes (DVT LEFT LEG) Deep Vein Thrombosis, High Cholesterol, Hypertension Neurological: Yes (mild alzheimer's ) Dementia, TIA Reproductive Disorders: No Genitourinary: Yes (RENAL CYST; INCONTINENCE, OVERACTIVE BLADDER) Benign Prostatic Hyperpl, Prostate Problems Gastrointestinal: Yes (hx of constipation issues) Chronic Constipation Musculoskeletal: Yes (GAIT INSTABILITY) Arthritis Endocrine: No (renal cyst) HEENT: No Hearing Impairment: Hard of Hearing Cancer: No Psychosocial: Yes Sleep Difficulties, Anxiety, Depression Integumentary: No Blood Disorders: Yes (hx of dvt) Adverse Reaction/Blood Tranf: No Family Medical History FH: heart disease 19 FATHER Physical Exam Vital Signs Vital Signs - First Documented Capillary Refill : Less Than 3 Seconds Height, Weight, BMI Height: 5'6.00" Weight: 201lbs. 0.8oz. 92.485381vb; 32.00 BMI Method:Stated General Appearance: WD/WN, no apparent distress HEENT: PERRL/EOMI, normal ENT inspection, pharynx normal Cardiovascular: normal peripheral pulses, regular rate, rhythm Respiratory: lungs clear, normal breath sounds, no respiratory distress, no accessory muscle use Gastrointestinal: non tender, soft Legs: left leg swelling (2+ pitting edema left lower extremity. Some ecchymoses and a well-healing clean, dry intact surgical scar over the left hip) Progress/Results/Core Measures Results/Orders My Orders Orders - CANDIS SHORE Venous Lower Ext Lt (09/06/20 10:55) Vital Signs/I&O 09/06/20 09/06/20 10:22 10:22 Temp 36.9 36.4 Pulse 89 90 Resp 18 24 B/P (MAP) 119/76 (90) Pulse Ox 96 95 O2 Delivery Room Air Blood Pressure Mean: 90 Progress Progress Note : Time: 11:00 Progress Note No evidence of significant cellulitis. Encourage him to finish out the Keflex. No significant erythema of the leg. The ecchymoses and swelling is likely due to the recent surgery and the patient states he has not been putting his leg up has been keeping it dependent. He is also not wearing his compression stocking because it gave him a blister on the back of his leg. The blister has healed now. Since he is already on Eliquis and states he takes it every day it is fairly unlikely that he has a blood clot however we will get a ultrasound and if it is negative we encouraged him to wear his compression stockings, and engage with physical therapy and elevate his leg above the level of his heart when not in use. Diagnostic Imaging Diagonstic Imaging: Ultrasound Plain Films/CT/US/NM/MRI: leg Comments NAME: FRANKIE SMILEY [facility] REC#: [id number] PT STATUS: REG ER : 1945 PHYSICIAN: CANDIS SHORE MD ADMIT DATE: 09/06/20/ER Signed Date of Exam:09/06/20 US VENOUS LOWER EXT LT INDICATION: Left lower extremity swelling, pain TECHNIQUE: Multiple real-time grayscale images were obtained over the left lower extremity in various projections, bilaterally. Additional duplex Doppler and color Doppler images were also obtained. CORRELATION STUDY: None FINDINGS: Color and grayscale sonographic images demonstrate no intraluminal defect within the visualized portion of the common femoral, superficial femoral and/or popliteal veins to suggest thrombus formation. These vessels demonstrate normal response to compression and augmentation. No soft tissue fluid collection. IMPRESSION: 1. Negative for deep venous thrombosis of the left leg. Dictated by: Dictated on workstation # [id number] Dict: 09/06/20 1503 Trans: 09/06/20 1504 DO [id number] Interpreted by: ANKITA EVANS DO Electronically signed by: ANKITA EVANS DO 09/06/20 1504 Reviewed: Reviewed by Me Departure Impression Primary Impression: Postoperative edema Disposition: 01 HOME, SELF-CARE Condition: Stable Departure-Patient Inst. Decision time for Depature: 15:15 Referrals: [facility] (PCP) Primary Care Physician CARLOS EMERSON APRN (Family) Primary Care Physician Patient Instructions: Dependent Edema (DC) Add. Discharge Instructions: The swelling in your leg is due to your recent surgery. You need to get in contact with your primary care team about getting into physical therapy or you can talk to Dr. Marie your surgeon. If you would like to follow-up with [facility] physical therapy you can call them directly at [phone] for a follow on appointment. If you have compression stockings you should start wearing them again. If you are not up walking around and your feet need to be propped up above the level of your heart to reduce the swelling. All discharge instructions reviewed with patient and/or family. Voiced understanding. Copy Copies To 1: ROSARIO MARIE MD, TITUS J Sep 06, 2020 11:01
--- NOTE | 2020-09-06 15:05 | Diagnostic Imaging Report ---
INDICATION: Left lower extremity swelling, pain TECHNIQUE: Multiple real-time grayscale images were obtained over the left lower extremity in various projections, bilaterally. Additional duplex Doppler and color Doppler images were also obtained. CORRELATION STUDY: None FINDINGS: Color and grayscale sonographic images demonstrate no intraluminal defect within the visualized portion of the common femoral, superficial femoral and/or popliteal veins to suggest thrombus formation. These vessels demonstrate normal response to compression and augmentation. No soft tissue fluid collection. IMPRESSION: 1. Negative for deep venous thrombosis of the left leg. Dictated by: Dictated on workstation # [id number]
[2020-09-06 15:19] VITALS: BP 111/69
== END 2020-09-06 15:19 | disposition home or self-care (01) ==
LOC: EDUNIT# 10:17 → ER 10:19
DX: L76.82 Other postprocedural complications of skin and subcutaneous tissue (principal); I10 Essential (primary) hypertension; E78.00 Pure hypercholesterolemia, unspecified; F41.9 Anxiety disorder, unspecified; F32.9 Major depressive disorder, single episode, unspecified; K59.09 Other constipation; F03.90 Unspecified dementia, unspecified severity, without behavioral disturbance, psychotic disturbance, mood disturbance, and anxiety; J44.9 Chronic obstructive pulmonary disease, unspecified; Z96.642 Presence of left artificial hip joint; Z86.73 Personal history of transient ischemic attack (TIA), and cerebral infarction without residual deficits; Z86.718 Personal history of other venous thrombosis and embolism; Z79.899 Other long term (current) drug therapy; Z88.5 Allergy status to narcotic agent; Z88.8 Allergy status to other drugs, medicaments and biological substances

== ENCOUNTER → 2020-09-30 | Outpatient (CLI) | payer MEDICARE, OTHER ==
[2020-09-30 09:22] LABS: ALANINE AMINOTRANSFERASE 11 U/L (0-55); ALBUMIN 3.6 GM/DL (3.2-4.5); ALKALINE PHOSPHATASE 129 U/L (40-136); BILIRUBIN,TOTAL 0.2 MG/DL (0.1-1.0); BUN/CREATININE RATIO 19; CALCIUM 8.9 MG/DL (8.5-10.1); CARBON DIOXIDE 26 MMOL/L (21-32); CHLORIDE 106 MMOL/L (98-107); CHOLESTEROL 128 MG/DL (< 200); CREATININE SERUM 1.13 MG/DL (0.60-1.30); GFR ESTIMATED > 60; GLUCOSE 99 MG/DL (70-105); HDL CHOLESTEROL 35 MG/DL (40-60); POTASSIUM 3.7 MMOL/L (3.6-5.0); SODIUM 139 MMOL/L (135-145); TOTAL PROTEIN 6.2 GM/DL (6.4-8.2); TRIGLYCERIDES 135 MG/DL (<150); VLDL CHOLESTEROL 27 MG/DL (5-40)
== END ==
LOC: CARD 08:33
PROVIDERS: ATTEND Physician Assistant
DX: I11.9 Hypertensive heart disease without heart failure (principal); I31.3 Pericardial effusion (noninflammatory); E78.2 Mixed hyperlipidemia
CPT/HCPCS: 36415; 80053; 80061; 93306

== ENCOUNTER 2020-10-21 15:55 | Emergency (ER) | payer MEDICARE, OTHER ==
[~2020-10-21] VITALS: Ht 162 cm; Wt 88.0 kg
--- NOTE | 2020-10-21 16:17 | ED General ---
General Stated Complaint: PAIN IN RIGHT SIDE Source of Information: Patient, Family Exam Limitations: No Limitations History of Present Illness Date Seen by Provider: Oct 21, 2020 Time Seen by Provider: 16:00 Initial Comments Patient is a 74-year-old male who presents to the emergency department with his today with a chief complaint of right flank pain. Patient states he has had this pain for about 2 days. He states that it is sharp and unrelenting. It hurts to walk and hurts to move. Patient states that he went to [facility] yesterday and was seen and told that he probably had "gas". Patient has been taking Gas-X without much relief of symptoms. He denies any nausea vomiting. No problems with bowel or bladder. Moving makes the pain worse nothing really makes it any better. He is not taking any pain medications for the pain. No recent trauma/falls. All other review of systems reviewed and negative except as stated above. Timing/Duration: 1-2 Days Severity: Moderate ("7-8") Modifying Factors: improves with Movement Associated Systoms: Denies Symptoms Allergies and Home Medications Allergies Coded Allergies: codeine (Unverified Allergy, Severe, rash, 01/11/11) lovastatin (Verified Allergy, Unknown, 08/19/15) Home Medications Albuterol Sulfate 6.7 Gm Hfa.aer.ad, 2 PUFF IH Q4H PRN for WHEEZING, (Reported) Alprazolam 0.5 Mg Tablet, 0.5 MG PO BID PRN for ANXIETY, (Reported) Amlodipine Besylate 5 Mg Tablet, 5 MG PO DAILY, (Reported) Cephalexin 500 Mg Capsule, 1 TAB PO BID Prescribed by: KAREN LOCKHART on 08/25/15 09 Cyclobenzaprine HCl 10 Mg Tablet, 10 MG PO Q8H Prescribed by: MATT PURVIS on 03/24/172041 Cyclobenzaprine HCl 5 Mg Tablet, 5 MG PO TID PRN for PAIN-MODERATE TO SEVERE Prescribed by: FEI OTTO on 08/28/172254 Docusate Sodium 50 Mg Capsule, 50 MG PO HS PRN for CONSTIPATION, (Reported) Donepezil HCl 5 Mg Tablet, 5 MG PO HS, (Reported) Finasteride 5 Mg Tablet, 5 MG PO DAILY, (Reported) Memantine HCl 10 Mg Tablet, 10 MG PO BID, (Reported) [place]-3 Fatty Acids/Fish Oil 1 Each Capsule, 1 CAP PO BID, (Reported) Oxybutynin Chloride 5 Mg Tablet, 5 MG PO BID, (Reported) Polyethylene Glycol 3350 17 Gm Powd.pack, 17 GM PO DAILY PRN for CONSTIPATION, (Reported) Pravastatin Sodium 40 Mg Tablet, 40 MG PO DAILY, (Reported) Sennosides 8.6 Mg Tablet, 17.2 MG PO DAILY, (Reported) take 2 (8.6mg) tabs Sulfamethoxazole/Trimethoprim 1 Each Tablet, 1 EACH PO BID Prescribed by: CANDIS SHORE on 06/23/172123 Tamsulosin HCl 0.4 Mg Cap.er.24h, 0.4 MG PO DAILY, (Reported) Tramadol HCl 50 Mg Tablet, 50 MG PO Q4H Prescribed by: MATT PURVIS on 03/24/172041 Trazodone HCl 100 Mg Tablet, 100 MG PO HS, (Reported) [Toradol] , 1 TAB PO PRN Prescribed by: KAREN LOCKHART on 08/25/15 0910 Patient Home Medication List Home Medication List Reviewed: Yes Review of Systems Review of Systems Constitutional: see HPI EENTM: no symptoms reported Respiratory: no symptoms reported Cardiovascular: no symptoms reported Gastrointestinal: abdominal pain Genitourinary: no symptoms reported Musculoskeletal: other (Right flank pain) Skin: no symptoms reported All Other Systems Reviewed Negative Unless Noted: Yes Past Gvexjoi-Jhyvus-Umvwwg Hx Patient Social History 2nd Hand Smoke Exposure: No Recent Hopitalizations: No Immunizations Up To Date Tetanus Booster (TDap): Less than 5yrs PED Vaccines UTD: Yes Date of Pneumonia Vaccine: Feb 18, 2015 Date of Influenza Vaccine: Mar 21, 2015 Seasonal Allergies Seasonal Allergies: No Past Medical History Surgeries: Yes (HERNIA REPAIR, CYSTOCELE, neck) Abdominal, Orthopedic Respiratory: Yes COPD Currently Using CPAP: Yes Cardiac: Yes (DVT LEFT LEG) Deep Vein Thrombosis, High Cholesterol, Hypertension Neurological: Yes (mild alzheimer's ) Dementia, TIA Reproductive Disorders: No Genitourinary: Yes (RENAL CYST; INCONTINENCE, OVERACTIVE BLADDER) Benign Prostatic Hyperpl, Prostate Problems Gastrointestinal: Yes (hx of constipation issues) Chronic Constipation Musculoskeletal: Yes (GAIT INSTABILITY) Arthritis Endocrine: No (renal cyst) HEENT: No Hearing Impairment: Hard of Hearing Cancer: No Psychosocial: Yes Sleep Difficulties, Anxiety, Depression Integumentary: No Blood Disorders: Yes (hx of dvt) Adverse Reaction/Blood Tranf: No Family Medical History FH: heart disease 19 FATHER Physical Exam Vital Signs Vital Signs - First Documented 10/21/20 16:00 Temp 36.8 Pulse 92 Resp 24 B/P (MAP) 99/71 (80) Pulse Ox 94 Capillary Refill : Height, Weight, BMI Height: 5'6.00" Weight: 201lbs. 0.8oz. 92.749887cc; 32.00 BMI Method:Stated General Appearance: No Apparent Distress, WD/WN Eyes: Bilateral Eye Normal Inspection, Bilateral Eye PERRL Respiratory: No Accessory Muscle Use, No Respiratory Distress Cardiovascular: Regular Rate, Rhythm, Tachycardia Gastrointestinal: Soft, Tenderness (Right flank/right lower quadrant) Extremity: Pedal Edema Neurologic/Psychiatric: Alert, Oriented x3, No Motor/Sensory Deficits, Normal Mood/Affect Skin: Normal Color, Warm/Dry, Other (Patient has a raised macular erythematous rash on the right flank just above the iliac spine, no blistering is noted it is irregular in shape and localized to the right flank) Progress/Results/Core Measures Suspected Sepsis SIRS Temperature: Pulse: Respiratory Rate: Laboratory Tests 10/21/20 16:15: White Blood Count 6.6 Blood Pressure / Mean: Laboratory Tests 10/21/20 16:15: Creatinine 1.06, Platelet Count 215 Results/Orders Lab Results Laboratory Tests Test 10/21/20 16:15 10/21/20 16:26 Range/Units White Blood Count 6.6 4.3-11.0 10^3/uL Red Blood Count 4.17 L 4.30-5.52 10^6/uL Hemoglobin 12.3 L 13.3-17.7 g/dL Hematocrit 37 L 40-54 % Mean Corpuscular Volume 88 80-99 fL Mean Corpuscular Hemoglobin 30 25-34 pg Mean Corpuscular Hemoglobin Concent 33 32-36 g/dL Red Cell Distribution Width 13.7 10.0-14.5 % Platelet Count 215 130-400 10^3/uL Mean Platelet Volume 9.7 9.0-12.2 fL Immature Granulocyte % (Auto) 1 % Neutrophils (%) (Auto) 73 42-75 % Lymphocytes (%) (Auto) 14 12-44 % Monocytes (%) (Auto) 10 0-12 % Eosinophils (%) (Auto) 2 0-10 % Basophils (%) (Auto) 0 0-10 % Neutrophils # (Auto) 4.8 1.8-7.8 10^3/uL Lymphocytes # (Auto) 0.9 L 1.0-4.0 10^3/uL Monocytes # (Auto) 0.7 0.0-1.0 10^3/uL Eosinophils # (Auto) 0.1 0.0-0.3 10^3/uL Basophils # (Auto) 0.0 0.0-0.1 10^3/uL Immature Granulocyte # (Auto) 0.1 0.0-0.1 10^3/uL Sodium Level 138 135-145 MMOL/L Potassium Level 4.1 3.6-5.0 MMOL/L Chloride Level 104 98-107 MMOL/L Carbon Dioxide Level 22 21-32 MMOL/L Anion Gap 12 5-14 MMOL/L Blood Urea Nitrogen 24 H 7-18 MG/DL Creatinine 1.06 0.60-1.30 MG/DL Estimat Glomerular Filtration Rate > 60 BUN/Creatinine Ratio 23 Glucose Level 103 70-105 MG/DL Calcium Level 9.4 8.5-10.1 MG/DL Urine Color YELLOW Urine Clarity CLEAR Urine pH 5.5 5-9 Urine Specific [place] 1.025 H 1.016-1.022 Urine Protein NEGATIVE NEGATIVE Urine Glucose (UA) NEGATIVE NEGATIVE Urine Ketones NEGATIVE NEGATIVE Urine Nitrite NEGATIVE NEGATIVE Urine Bilirubin NEGATIVE NEGATIVE Urine Urobilinogen 0.2 < = 1.0 MG/DL Urine Leukocyte Esterase 1+ H NEGATIVE Urine RBC (Auto) NEGATIVE NEGATIVE Urine RBC 0-2 /HPF Urine WBC 5-10 H /HPF Urine Crystals PRESENT H /LPF Urine Amorphous Sediment FEW RAJ URATES H /LPF Urine Bacteria FEW H /HPF Urine Casts NONE /LPF Urine Mucus NEGATIVE /LPF Urine Culture Indicated YES My Orders Orders - STACI RODRIGUEZ MD Ed Iv/Invasive Line Start (10/21/20 16:17) Cbc With Automated Diff (10/21/20 16:17) Basic Metabolic Panel (10/21/20 16:17) Ua Culture If Indicated (10/21/20 16:17) Lidocaine 4% Patch (Salonpas 4% Patch) (10/22/20 09:00) Urine Culture (10/21/20 16:26) Vital Signs/I&O 10/21/20 16:00 Temp 36.8 Pulse 92 Resp 24 B/P (MAP) 99/71 (80) Pulse Ox 94 Capillary Refill : Progress Note : Time: 16:56 Progress Note Lidocaine patch placed over the affected area 1709 Patient states the lidocaine patch has helped alleviate some of his discomfort. We will start him on Valtrex 1000 mg 3 times a day for 7 days. We will have him follow-up with [facility] in a week. I have advised unad-vyg-crwxfaw lidocaine patches. He can also take Tylenol and ibuprofen. Patient verbalizes understanding as does his . All questions are sought and answered. Patient is stable for discharge. Departure Impression Primary Impression: Shingles rash Qualified Codes: B02.9 - Zoster without complications Disposition: 01 HOME, SELF-CARE Condition: Stable Departure-Patient Inst. Decision time for Depature: 17:10 Referrals: [facility] (PCP) Primary Care Physician CARLOS EMERSON APRN (Family) Primary Care Physician Patient Instructions: Shingles Add. Discharge Instructions: Keep the area clean and dry. You can buy dewq-nsj-qvqiwiu lidocaine patches also known as Salon Pas patches at the pharmacy. Do not put lidocaine patches over blisters on the skin. Take the valacyclovir, 1000 mg, 3 times a day for 7 days. Please follow-up with [facility] in 1 week. You can also take ebrs-elm-jortcos Tylenol and/or ibuprofen as needed for pain. Come back to the emergency room for any worsening symptoms of pain especially with fever, shortness of breath or any other emergent concerning symptoms. Scripts Valacyclovir HCl (Valacyclovir) 1,000 Mg Tablet 1000 MG PO TID for 7 Days, #21 TAB Prov: STACI RODRIGUEZ MD 10/21/20 STACI RODRIGUEZ MD Oct 21, 2020 16:16
[2020-10-21 16:22] LABS: BASOPHILS % (AUTO) 0 % (0-10); EOSINOPHILS # (AUTO) 0.1 10^3/uL (0.0-0.3); EOSINOPHILS % (AUTO) 2 % (0-10); HEMATOCRIT 37 % (40-54); HEMOGLOBIN 12.3 g/dL (13.3-17.7); LYMPHOCYTES # (AUTO) 0.9 10^3/uL (1.0-4.0); LYMPHOCYTES % (AUTO) 14 % (12-44); MEAN CORPUSCULAR HEMOGLOBIN 30 pg (25-34); MEAN CORPUSCULAR HGB CONC 33 g/dL (32-36); MEAN CORPUSCULAR VOLUME 88 fL (80-99); MEAN PLATELET VOLUME 9.7 fL (9.0-12.2); MONOCYTES # (AUTO) 0.7 10^3/uL (0.0-1.0); MONOCYTES % (AUTO) 10 % (0-12); NEUTROPHILS # (AUTO) 4.8 10^3/uL (1.8-7.8); NEUTROPHILS % (AUTO) 73 % (42-75); PLATELET COUNT 215 10^3/uL (130-400); WHITE BLOOD COUNT 6.6 10^3/uL (4.3-11.0)
[2020-10-21 16:30] LABS: BILIRUBIN,URINE NEGATIVE (NEGATIVE); CLARITY,URINE CLEAR; COLOR,URINE YELLOW; GLUCOSE, URINE (UA) NEGATIVE (NEGATIVE); KETONES,URINE NEGATIVE (NEGATIVE); LEUKOCYTE ESTERASE ,URINE 1+ (NEGATIVE); NITRITE,URINE NEGATIVE (NEGATIVE); PH,URINE 5.5 (5-9); PROTEIN,URINE NEGATIVE (NEGATIVE)
[2020-10-21 16:33] LABS: CHLORIDE 104 MMOL/L (98-107); POTASSIUM 4.1 MMOL/L (3.6-5.0); SODIUM 138 MMOL/L (135-145)
[2020-10-21 16:35] LABS: CALCIUM 9.4 MG/DL (8.5-10.1); GLUCOSE 103 MG/DL (70-105)
[2020-10-21 16:36] LABS: CARBON DIOXIDE 22 MMOL/L (21-32)
[2020-10-21 16:39] LABS: CREATININE SERUM 1.06 MG/DL (0.60-1.30); GFR ESTIMATED > 60
[2020-10-21 16:40] LABS: BUN/CREATININE RATIO 23
[2020-10-21 16:57] LABS: AMORPHOUS SEDIMENT,UR FEW AMOR URATES /LPF; BACTERIA,URINE FEW /HPF; RBC,URINE 0-2 /HPF
[2020-10-21] MEDS ORDERED: VALA10007 PO (17:13)
[2020-10-21 17:18] VITALS: BP 118/64
[2020-10-22] MEDS ORDERED: LIDOCAINE 4% (SALONPAS) PATCH TOP SCH (09:00)
== END 2020-10-21 17:19 | disposition home or self-care (01) ==
LOC: EDUNIT# 15:55 → ER 15:58
DX: B02.9 Zoster without complications (principal); J44.9 Chronic obstructive pulmonary disease, unspecified; I10 Essential (primary) hypertension; N39.0 Urinary tract infection, site not specified; N40.0 Benign prostatic hyperplasia without lower urinary tract symptoms; E78.00 Pure hypercholesterolemia, unspecified; F41.9 Anxiety disorder, unspecified; F32.9 Major depressive disorder, single episode, unspecified; Z88.5 Allergy status to narcotic agent; Z88.8 Allergy status to other drugs, medicaments and biological substances; Z86.73 Personal history of transient ischemic attack (TIA), and cerebral infarction without residual deficits; Z79.899 Other long term (current) drug therapy
CPT/HCPCS: 36415; 80048; 81000; 85025; 87077; 87088

== ENCOUNTER 2021-02-22 09:48 | Emergency (ER) | payer MEDICARE, MEDICAID ==
[~2021-02-22] VITALS: Ht 160 cm; Wt 93.0 kg
[~2021-02-22 09:48] MED LIST changes: -SULF1TAB35 PO; +SULF1TAB38 PO; +VALA10007 PO
--- NOTE | 2021-02-22 10:24 | ED General ---
General Chief Complaint: General Problems/Pain Stated Complaint: LOW EXT SWELLING,SOB Source of Information: Patient, Family Exam Limitations: No Limitations History of Present Illness Date Seen by Provider: Feb 22, 2021 Time Seen by Provider: 10:10 Initial Comments Patient is a 75-year-old male who presents to the emergency room with a chief complaint of bilateral lower extremity pain below the knees and swelling. Patient has recently seen his primary care provider and had diuretics adjusted. Has not had much relief from swelling, he is concerned that he has a blood clot in his leg. He states most of the time his pain is localized to the right leg however today it is the left. He states he has a great degree of difficulty walking secondary to the pain. No wounds, redness, fevers. No drainage from the legs. Does have remote history of DVT in the past. Had a left hip surgery by Dr. Bacon at [address] in July of this year. Anticipates a right hip surgery in February of this year. No recent complaints of fevers, chills, worsening cough or congestion. Is Covid vaccinated. No chest pain. All other review of systems reviewed and negative except as stated. Timing/Duration: Constant (2 weeks) Severity: Moderate Modifying Factors: worse with Movement Allergies and Home Medications Allergies Coded Allergies: codeine (Unverified Allergy, Severe, rash, 01/11/11) lovastatin (Verified Allergy, Unknown, 08/19/15) Patient Home Medication List Home Medication List Reviewed: Yes Albuterol Sulfate (Proventil Hfa) 6.7 Gm Hfa.aer.ad, 2 PUFF IH Q4H PRN for WHEEZING, (Reported) Entered as Reported by: IRIS RODRIGUEZ on 08/19/15 1200 Alprazolam (Alprazolam) 0.5 Mg Tablet, 0.5 MG PO BID PRN for ANXIETY, (Reported) Entered as Reported by: CARMINE TAYLOR on 04/21/15 0955 Amlodipine Besylate (Amlodipine Besylate) 5 Mg Tablet, 5 MG PO DAILY, (Reported) Entered as Reported by: JOSH ARCHER on 04/20/15 1536 Apixaban (Eliquis) 2.5 Mg Tablet, (Reported) Entered as Reported by: AZ MCCULLOUGH on 08/16/17 1023 Cephalexin (Keflex) 500 Mg Capsule, 1 TAB PO BID Prescribed by: KAREN LOCKHART on 08/25/15 0910 Cyclobenzaprine HCl (Cyclobenzaprine HCl) 10 Mg Tablet, 10 MG PO Q8H Prescribed by: MATT PURVIS on 03/24/172041 Cyclobenzaprine HCl (Cyclobenzaprine HCl) 5 Mg Tablet, 5 MG PO TID PRN for PAIN- MODERATE TO SEVERE Prescribed by: FEI OTTO on 08/28/172254 Docusate Sodium (Colace Clear) 50 Mg Capsule, 50 MG PO HS PRN for CONSTIPATION, (Reported) Entered as Reported by: ANIBAL NAGEL on 04/20/151935 Donepezil HCl (Donepezil HCl) 5 Mg Tablet, 5 MG PO HS, (Reported) Entered as Reported by: CARMINE TAYLOR on 04/21/15 09 Finasteride (Finasteride) 5 Mg Tablet, 5 MG PO DAILY, (Reported) Entered as Reported by: CARMINE TAYLOR on 04/21/15954 Memantine HCl (Memantine HCl) 10 Mg Tablet, 10 MG PO BID, (Reported) Entered as Reported by: CARMINE TAYLOR on 04/21/15954 [place]-3 Fatty Acids/Fish Oil (Fish Oil 1,200 Mg Softgel) 1 Each Capsule, 1 CAP PO BID, (Reported) Entered as Reported by: JOHNNY FELICIANO on 08/23/13 1135 Oxybutynin Chloride (Oxybutynin Chloride) 5 Mg Tablet, 5 MG PO BID, (Reported) Entered as Reported by: CARMINE TAYLOR on 04/21/15 09 Polyethylene Glycol 3350 (Miralax) 17 Gm Powd.pack, 17 GM PO DAILY PRN for CONSTIPATION, (Reported) Entered as Reported by: ANIBAL NAGEL on 04/20/151935 Pravastatin Sodium (Pravastatin Sodium) 40 Mg Tablet, 40 MG PO DAILY, (Reported) Entered as Reported by: ANIBAL NAGEL on 04/20/151935 Sennosides (Sennosides) 8.6 Mg Tablet, 17.2 MG PO DAILY, (Reported) Entered as Reported by: ANIBAL NAGEL on 04/20/151935 Sulfamethoxazole/Trimethoprim (Bactrim Ds Tablet) 1 Each Tablet, 1 EACH PO BID Prescribed by: CANDIS SHORE on 06/23/172123 Tamsulosin HCl (Tamsulosin HCl) 0.4 Mg Cap.er.24h, 0.4 MG PO DAILY, (Reported) Entered as Reported by: CARMINE TAYLOR on 04/21/15 0955 Tramadol HCl (Ultram) 50 Mg Tablet, 50 MG PO Q4H Prescribed by: MATT PURVIS on 03/24/17 204 Trazodone HCl (Trazodone HCl) 100 Mg Tablet, 100 MG PO HS, (Reported) Entered as Reported by: ANIBAL NAGEL on 04/20/15 193 Valacyclovir HCl (Valacyclovir) 1,000 Mg Tablet, 1,000 MG PO TID Prescribed by: STACI RODRIGUEZ on 10/21/20 1713 [Toradol] , 1 TAB PO PRN Prescribed by: KAREN LOCKHART on 08/25/15 0910 Review of Systems Review of Systems Constitutional: see HPI EENTM: no symptoms reported Respiratory: dyspnea on exertion Cardiovascular: no symptoms reported Gastrointestinal: no symptoms reported Genitourinary: no symptoms reported Musculoskeletal: muscle pain (bilateral LE leg pain and swelling) Skin: no symptoms reported Psychiatric/Neurological: No Symptoms Reported All Other Systems Reviewed Negative Unless Noted: Yes Past Qoxfony-Pwgthj-Xlfsht Hx Immunizations Up To Date Tetanus Booster (TDap): Less than 5yrs PED Vaccines UTD: Yes Seasonal Allergies Seasonal Allergies: No Past Medical History Surgeries: Yes (HERNIA REPAIR, CYSTOCELE, neck) Abdominal, Orthopedic Respiratory: Yes COPD Currently Using CPAP: Yes Cardiac: Yes (DVT LEFT LEG) Deep Vein Thrombosis, High Cholesterol, Hypertension Neurological: Yes (mild alzheimer's ) Dementia, TIA Reproductive Disorders: No Genitourinary: Yes (RENAL CYST; INCONTINENCE, OVERACTIVE BLADDER) Benign Prostatic Hyperpl, Prostate Problems Gastrointestinal: Yes (hx of constipation issues) Chronic Constipation Musculoskeletal: Yes (GAIT INSTABILITY) Arthritis Endocrine: No (renal cyst) HEENT: No Hearing Impairment: Hard of Hearing Cancer: No Psychosocial: Yes Sleep Difficulties, Anxiety, Depression Integumentary: No Blood Disorders: Yes (hx of dvt) Adverse Reaction/Blood Tranf: No Family Medical History FH: heart disease 19 FATHER Physical Exam Vital Signs Vital Signs - First Documented 02/22/21 10:14 Temp 36.4 Pulse 100 B/P (MAP) 105/87 (93) Pulse Ox 20 Capillary Refill : Height, Weight, BMI Height: 5'6.00" Weight: 201lbs. 0.8oz. 92.008969cg; 33.00 BMI Method:Stated General Appearance: No Apparent Distress, WD/WN Eyes: Bilateral Eye Normal Inspection HEENT: PERRL/EOMI Neck: Normal Inspection Respiratory: Lungs Clear, Normal Breath Sounds, No Accessory Muscle Use, No Respiratory Distress Cardiovascular: Regular Rate, Rhythm, Normal Peripheral Pulses Gastrointestinal: Non Tender, Soft Extremity: Normal Capillary Refill, Pedal Edema (2-3+ pitting edema bilateral LE; tender calves bilaterally. negative homans sign (dorsiflexion causes him to "cramp" however) Neurologic/Psychiatric: Alert, Oriented x3, No Motor/Sensory Deficits Skin: Normal Color, Warm/Dry, Other (slight erythema left posterior calf) Progress/Results/Core Measures Suspected Sepsis SIRS Temperature: Pulse: Respiratory Rate: Laboratory Tests 02/22/21 10:25: White Blood Count 6.7 Blood Pressure / Mean: Laboratory Tests 02/22/21 10:25: Creatinine 1.27, Platelet Count 224 Results/Orders Lab Results Laboratory Tests Test 02/22/21 10:25 Range/Units White Blood Count 6.7 4.3-11.0 10^3/uL Red Blood Count 4.44 4.30-5.52 10^6/uL Hemoglobin 13.0 L 13.3-17.7 g/dL Hematocrit 41 40-54 % Mean Corpuscular Volume 92 80-99 fL Mean Corpuscular Hemoglobin 29 25-34 pg Mean Corpuscular Hemoglobin Concent 32 32-36 g/dL Red Cell Distribution Width 14.0 10.0-14.5 % Platelet Count 224 130-400 10^3/uL Mean Platelet Volume 9.9 9.0-12.2 fL Immature Granulocyte % (Auto) 1 % Neutrophils (%) (Auto) 67 42-75 % Lymphocytes (%) (Auto) 17 12-44 % Monocytes (%) (Auto) 12 0-12 % Eosinophils (%) (Auto) 2 0-10 % Basophils (%) (Auto) 1 0-10 % Neutrophils # (Auto) 4.5 1.8-7.8 10^3/uL Lymphocytes # (Auto) 1.2 1.0-4.0 10^3/uL Monocytes # (Auto) 0.8 0.0-1.0 10^3/uL Eosinophils # (Auto) 0.2 0.0-0.3 10^3/uL Basophils # (Auto) 0.0 0.0-0.1 10^3/uL Immature Granulocyte # (Auto) 0.1 0.0-0.1 10^3/uL Sodium Level 139 135-145 MMOL/L Potassium Level 4.1 3.6-5.0 MMOL/L Chloride Level 100 98-107 MMOL/L Carbon Dioxide Level 30 21-32 MMOL/L Anion Gap 9 5-14 MMOL/L Blood Urea Nitrogen 28 H 7-18 MG/DL Creatinine 1.27 0.60-1.30 MG/DL Estimat Glomerular Filtration Rate 55 BUN/Creatinine Ratio 22 Glucose Level 88 70-105 MG/DL Calcium Level 9.6 8.5-10.1 MG/DL B-Type Natriuretic Peptide < 10.0 <100.0 PG/ML My Orders Orders - STACI RODRIGUEZ MD Ed Iv/Invasive Line Start (02/22/21 10:16) Cbc With Automated Diff (02/22/21 10:16) Basic Metabolic Panel (02/22/21 10:16) Chest 1 View, Ap/Pa Only (02/22/21 10:16) BNP (02/22/21 10:16) Us Venous Lower Ext Kevin (02/22/21 10:16) Vital Signs/I&O 02/22/21 10:14 Temp 36.4 Pulse 100 B/P (MAP) 105/87 (93) Pulse Ox 20 Capillary Refill : Diagnostic Imaging Diagonstic Imaging: Xray, Ultrasound Plain Films/CT/US/NM/MRI: chest, leg Comments [facility] [place] NAME: SMILEYFRANKIE Peguero [facility] REC#: [id number] PT STATUS: REG ER : 1945 PHYSICIAN: STACI RODRIGUEZ MD ADMIT DATE: 02/22/21/ER Draft Date of Exam:02/22/21 CHEST 1 VIEW, AP/PA ONLY INDICATION: Chest pain COMPARISON: 01/31/2019 FINDINGS: Single view of the chest demonstrates atelectasis in the right base. Left lung is clear. Heart is prominent without pulmonary edema. There is no pneumothorax or large effusion. Osseous structures normal. IMPRESSION: Atelectasis right base Dictated on workstation # [id number] Dict: 02/22/21 1050 Trans: 02/22/21 1054 JADE [id number] Interpreted by: ELVIN BELLA Electronically signed by: DVT Study bilateral LE, negative for DVT Departure Impression Primary Impression: Dependent edema Additional Impression: Leg pain, bilateral Disposition: 01 HOME, SELF-CARE Condition: Stable Departure-Patient Inst. Decision time for Depature: 11:35 Referrals: [facility] (PCP) Primary Care Physician CARLOS EMERSON APRN (Family) Primary Care Physician Patient Instructions: Dependent Edema (DC) Add. Discharge Instructions: Continue your daily medications as prescribed. Please keep your follow-up appointment with your primary care provider on the 14th of this month. Tramadol 1 tablet every 6 hours as needed for pain. Elevate your legs when you are sitting or laying to help reduce swelling. Come back to the emergency department for any increased pain, redness, fever, shortness of breath or other emergent concerns. Scripts Tramadol HCl (Tramadol HCl) 50 Mg Tablet 50 MG PO Q6H PRN for PAIN, #20 TAB 0 Refills Prov: STACI RODRIGUEZ MD 02/22/21 STACI RODRIGUEZ MD Feb 22, 2021 10:24
[2021-02-22 10:29] LABS: BASOPHILS % (AUTO) 1 % (0-10); EOSINOPHILS # (AUTO) 0.2 10^3/uL (0.0-0.3); EOSINOPHILS % (AUTO) 2 % (0-10); HEMATOCRIT 41 % (40-54); LYMPHOCYTES # (AUTO) 1.2 10^3/uL (1.0-4.0); LYMPHOCYTES % (AUTO) 17 % (12-44); MEAN CORPUSCULAR HEMOGLOBIN 29 pg (25-34); MEAN CORPUSCULAR HGB CONC 32 g/dL (32-36); MEAN CORPUSCULAR VOLUME 92 fL (80-99); MEAN PLATELET VOLUME 9.9 fL (9.0-12.2); MONOCYTES # (AUTO) 0.8 10^3/uL (0.0-1.0); MONOCYTES % (AUTO) 12 % (0-12); NEUTROPHILS # (AUTO) 4.5 10^3/uL (1.8-7.8); NEUTROPHILS % (AUTO) 67 % (42-75); PLATELET COUNT 224 10^3/uL (130-400); WHITE BLOOD COUNT 6.7 10^3/uL (4.3-11.0)
[2021-02-22 10:43] LABS: CALCIUM 9.6 MG/DL (8.5-10.1); CREATININE SERUM 1.27 MG/DL (0.60-1.30); POTASSIUM 4.1 MMOL/L (3.6-5.0)
--- NOTE | 2021-02-22 10:54 | Diagnostic Imaging Report ---
INDICATION: Chest pain COMPARISON: 01/31/2019 FINDINGS: Single view of the chest demonstrates atelectasis in the right base. Left lung is clear. Heart is prominent without pulmonary edema. There is no pneumothorax or large effusion. Osseous structures normal. IMPRESSION: Atelectasis right base Dictated by: Dictated on workstation # [id number]
--- NOTE | 2021-02-22 11:26 | Diagnostic Imaging Report ---
INDICATION: Bilateral leg pain. Bilateral lower extremity venous Doppler study was performed in the routine fashion with color flow Doppler and waveform analysis. FINDINGS: The common femoral veins, superficial femoral veins, popliteal veins and visualized portion of the tibial veins show normal compressibility and venous flow patterns. There is normal augmentation. IMPRESSION: No evidence of deep vein thrombosis in the major veins of both legs. Dictated by: Dictated on workstation # [id number]
[2021-02-22] MEDS ORDERED: TRM50T PO (11:37)
[2021-02-22 11:47] VITALS: BP 113/75
== END 2021-02-22 11:46 | disposition home or self-care (01) ==
LOC: EDUNIT# 09:48 → ER 09:49
DX: R60.9 Edema, unspecified (principal); M79.605 Pain in left leg; M79.604 Pain in right leg; J44.9 Chronic obstructive pulmonary disease, unspecified; I10 Essential (primary) hypertension; F03.90 Unspecified dementia, unspecified severity, without behavioral disturbance, psychotic disturbance, mood disturbance, and anxiety; F41.9 Anxiety disorder, unspecified; F32.9 Major depressive disorder, single episode, unspecified; E78.00 Pure hypercholesterolemia, unspecified; N40.0 Benign prostatic hyperplasia without lower urinary tract symptoms; Z86.718 Personal history of other venous thrombosis and embolism; Z86.73 Personal history of transient ischemic attack (TIA), and cerebral infarction without residual deficits; Z79.01 Long term (current) use of anticoagulants; Z79.899 Other long term (current) drug therapy
CPT/HCPCS: 36415; 71045; 80048; 83880; 85025; 93970

== ENCOUNTER → 2021-03-21 | Outpatient (CLI) | payer MEDICARE, MEDICAID ==
[~2021-03-21] VITALS: Ht 165 cm; Wt 92.0 kg
[~2021-03-21] MED LIST changes: +CATHETER FLUSH 10 ML SYR IV PRN; +REGADENOSON 0.4 MG/5 ML SYR (LEXISCAN) IV ONE
[2021-03-21 09:13] VITALS: BP 122/80
--- NOTE | 2021-03-21 11:25 | Cardiology Stress Test Report ---
Stress Test Report Date of Procedure/Referring: Date of Procedure: Mar 21, 2021 [facility] Indications: CP Baseline Heart Rate: 76 Baseline Blood Pressure: Blood Pressure Systolic: 122 Blood Pressure Diastolic: 80 Baseline Vitals Vital Signs Date Time Temp Pulse Resp B/P (MAP) Pulse Ox O2 Delivery O2 Flow Rate FiO2 03/21/21 09:13 91 18 122/80 (94) 98 Room Air Baseline EKG: Baseline EKG: NSR Summary After explaining the procedure to the patient, he signed a consent and then brought to the stress nuclear laboratory. Patient received 0.4 mg Lexiscan for stress test, ECG, heart rate and blood pressure were monitored continuously. Resting and stress dose of radio tracer were injected, imaging was acquired and reviewed in short axis, horizontal long axis and vertical long axis views. TID: 1.15 SSS: 17 SDS: 6 EF: 64 1. Patient tolerated Lexiscan well 2. Motion artifact and diaphragmatic attenuation affecting the quality of the images, there is decreased uptake involving the whole inferior wall and inferolateral wall and inferoseptum with mild reversibility 3. Normal left ventricular size, EF 64% JESS JUAREZ MD Mar 21, 2021 11:25
== END ==
LOC: CARD 07:30
PROVIDERS: ATTEND Physician Assistant
DX: R07.9 Chest pain, unspecified (principal)
CPT/HCPCS: 78452; 93017; A9502

== ENCOUNTER 2021-04-13 08:00 | Day surgery (SDC) | payer MEDICARE, MEDICAID ==
[~2021-04-13] VITALS: Ht 163 cm; Wt 93.2 kg
[2021-04-13] VITALS (11 sets, daily range): BP systolic 104–146; BP diastolic 67–102
[2021-04-13 07:34] LABS: HEMATOCRIT 42 % (40-54); HEMOGLOBIN 13.5 g/dL (13.3-17.7); MEAN CORPUSCULAR HEMOGLOBIN 29 pg (25-34); MEAN CORPUSCULAR HGB CONC 32 g/dL (32-36); MEAN CORPUSCULAR VOLUME 91 fL (80-99); MEAN PLATELET VOLUME 9.7 fL (9.0-12.2); PLATELET COUNT 226 10^3/uL (130-400); WHITE BLOOD COUNT 6.1 10^3/uL (4.3-11.0)
--- NOTE | 2021-04-13 07:47 | Diagnostic Imaging Report ---
Indication: Pre-heart catheterization Upright portable chest shows normal heart size and vascularity. The lungs are clear. There is no effusion or pneumothorax. IMPRESSION: No acute abnormality is seen with no change from 02/22/2021. Dictated by: Dictated on workstation # [id number]
[2021-04-13 07:48] LABS: ALBUMIN 3.9 GM/DL (3.2-4.5); POTASSIUM 3.8 MMOL/L (3.6-5.0)
[2021-04-13 07:49] LABS: CALCIUM 9.5 MG/DL (8.5-10.1)
[2021-04-13 07:50] LABS: TOTAL PROTEIN 6.8 GM/DL (6.4-8.2)
[2021-04-13 07:52] LABS: BILIRUBIN,TOTAL 0.5 MG/DL (0.1-1.0); PROTHROMBIN TIME PATIENT 13.5 SEC (12.2-14.7)
[~2021-04-13 08:00] MED LIST changes: -APIX2.5T; +APIX2.5T PO; +ARIP10TA55 PO; +ASPI-1238 PO; -CATHETER FLUSH 10 ML SYR IV PRN; +CYCL10TA25 PO; +DOCU-26 PO; +DULO30CA3 PO; +FAMO20TA3 PO; +FURO20TA4 PO; +HEParin (CATH LAB) 2,000 ML IV ONE; +LIDOCAINE 1% INJ 20 ML 20 ML VIAL ONE; +MIDAZOLAM 5 MG/5 ML (VERSED) VIAL ONE; +NS IV 1000 ML 1,000 ML IV SCH; +NS IV 1000 ML 1,000 ML ONE; +POTA10CA43 PO; -REGADENOSON 0.4 MG/5 ML SYR (LEXISCAN) IV ONE; +fentaNYL INJ 100 MCG/2 ML AMP ONE
--- NOTE | 2021-04-13 08:01 | Conscious Sedation/ASA ---
Conscious Sedation Pre-Proced Time 08:00 ASA Score 3 For ASA 3 and 4: Consider anesthesia and medical clearance. Also, for patients with a history of failed moderate sedation consider anesthesia. Airway Lungs Heart ASA score ASA 1: a normal healthy patient ASA 2: a patient with a mild systemic disease (mid diabetes, controlled hypertension, obesity x ASA 3: a patient with a severe systemic disease that limits activity (angina, COPD, prior Myocardial infarction) ASA 4: a patient with an incapacitating disease that is a constant threat to life (CHF, renal failure) ASA 5: a moribund patient not expected to survive 24 hrs. (ruptured aneurysm) ASA 6: a declared brain- patient whose organs are being harvested. For emergent operations, add the letter E after the classification Mallampati Classification Grade 3 Sedation Plan Analgesia, Amnesia, Plan communicated to team members, Discussed options with patient/fam, Discussed risks with patient/fam The patient is an appropriate candidate to undergo the planned procedure, sedation, and anesthesia. The patient immediately re-assessed prior to indication. JESS JUAREZ MD Apr 13, 2021 08:01
[2021-04-13] MEDS ORDERED: PATIENT MAY USE OWN MEDS, ALL PO SCH (08:30)
[2021-04-13] MEDS ORDERED: NS IV 1000 ML 1,000 ML IV SCH (08:30)
--- NOTE | 2021-04-13 08:31 | Discharge Inst-Post CATH ---
Discharge Inst-CATH/EP Problems Reviewed?: Yes Post Cardiac Cath/EP D/C Inst Follow Up/Plan Appointment with Dr. El's office in 2 to 4 weeks <b>CARDIAC CATH/EP PROCEDURE DISCHARGE INSTRUCTIONS</b> ACTIVITY * Go Home directly and rest. * Limit activity of the leg (or wrist if it was used) for 7 days including aer obics, swimming, jogging, bicycling, etc. * Restrict stair-climbing for 7 days if possible, if not, climb up with your non-cath leg, then bring together on the same step. * Avoid lifting, pushing, pulling or excessive movement of the affected extremi ty for 7 days. * Customary sexual activity may be resumed after 2 days-use caution not to use a position that strains or causes pain to the affected extremity. * No driving for 24 hours. * NO SMOKING. * Avoid straining for bowel movements for 7 days. * Gentle walking on level ground is allowed. * Returning to work will depend on the type of procedure and the results. Your doctor will discuss this with you. CALL YOUR DOCTOR FOR ANY OF THE FOLLOWING: *If bleeding from the puncture site occurs- Apply gentle pressure to site with clean cloth and call your doctor or EMS. * If a knot or lump forms under the skin, increases in size, or causes pain. * If bruising appears to be worsening or moving further down your leg instead of disappearing. * Temperature above 101 F. CARE OF YOUR GROIN INCISION; * Bruising or purple discoloration of the skin near the puncture site is common. * You may shower only, no bathtub bathing for 5 days. Be careful to avoid slipping as your leg may feel stiff. * If a closure device was used on your femoral artery, please see the attached guide regarding care of the device and your leg. * Leave dressing on FOR 24 hours. CARE OF YOUR WRIST INCISION; * Bruising or purple discoloration of the skin near the puncture site is common. * You may shower. * DO NOT submerge wrist. * Leave dressing on FOR 24 hours. JESS EL MD Apr 13, 2021 08:31
--- NOTE | 2021-04-13 08:34 | Cardiac Cath Report ---
Cardiac Cath Report Physician (s)/Program Manager Environmental Planning (s) Physician JESS JUAREZ MD Pre-Procedure Diagnosis Pre-Procedure Diagnosis: Coronary artery disease Post-Procedure Note Procedure Start Date: Apr 13, 2021 Name of Procedure: Left heart catheterization Aortic arch angiogram Findings/Procedure Note PROCEDURE NOTE: 75 years old gentleman with history of hypertension, hyperlipidemia, had an abnormal stress test with inferior wall ischemia, scheduled for cardiac catheterization possible PTCA. After explaining the procedure to the patient, all pros and cons were explained, all questions were answered. The patient signed the consent and then he was placed on the cardiac catheterization laboratory. Groin was prepped SL fashion local anesthesia was used. Sheath placed in the right femoral artery. Rebekah right and left catheter were used to access the coronary system. Pigtail was used to access the left ventricular cavity. Left ventriculogram was not done, pressure was measured I had significant difficulty advancing the catheter and wire through the abdominal aorta and aortic arch due to calcification and tortuosity, I used a long exchange wire and evaluated the aortic arch at the end of the procedure Aortic arch angiogram was done At the end of the procedure the sheath was removed. Closure device was deployed FINDINGS: Hemodynamics LV 111/8, end-diastolic pressure of 8 Aorta 110/58 mean of 79 ANATOMY: Left Main is free of obstructive disease Left Anterior Descending has mild disease nonobstructive disease Left Circumflex has mild disease nonobstructive disease Right Coronary Artery is dominant artery with mild disease nonobstructive disease LV Gram was not done, pressure was measured Aorta evaluation done with aortic arch angiogram showed calcified aortic arch with hypertensive changes, no dissection or aneurysm, normal origin of the brachiocephalic artery, left subclavian and left carotid arteries. Evaluation of the abdominal aorta with continuation to follow the contrast showed S shaped tortuous abdominal aorta with no dissection or aneurysm CONCLUSION: 1. Mild coronary artery disease nonobstructive disease 2. Normal left ventricular end-diastolic pressure 3. Hypertensive changes in the abdominal and thoracic aorta with S shaped abdominal aorta, no dissection or aneurysm DISCUSSION AND RECOMMENDATION: Continue to maximize medical therapy. No intervention is needed Anesthesia Type: Conscious Sedation Estimated blood loss (mL): 10 ml Contrast Amount: 54 ml Total Radiation Dose: 505 mGy Post-Procedure Diagnosis Post-operative diagnosis: Coronary artery disease Hypertension Hyperlipidemia Shortness of breath JESS JUAREZ MD Apr 13, 2021 08:34
== END 2021-04-13 12:35 ==
LOC: CATH 08:00 → SDC 08:41 → CATH 12:35
PROVIDERS: ATTEND Internal Medicine Cardiovascular Disease
DX: I25.10 Atherosclerotic heart disease of native coronary artery without angina pectoris (principal); I10 Essential (primary) hypertension; I65.23 Occlusion and stenosis of bilateral carotid arteries; E78.2 Mixed hyperlipidemia; E66.9 Obesity, unspecified; J44.9 Chronic obstructive pulmonary disease, unspecified; G47.33 Obstructive sleep apnea (adult) (pediatric); R53.83 Other fatigue; N40.0 Benign prostatic hyperplasia without lower urinary tract symptoms; G89.29 Other chronic pain; M25.551 Pain in right hip; F41.9 Anxiety disorder, unspecified; Z79.82 Long term (current) use of aspirin; Z87.891 Personal history of nicotine dependence; Z79.899 Other long term (current) drug therapy; Z79.01 Long term (current) use of anticoagulants; Z86.718 Personal history of other venous thrombosis and embolism; Z68.34 Body mass index [BMI] 34.0-34.9, adult; Z83.3 Family history of diabetes mellitus
CPT/HCPCS: 36221; 71045; 80053; 80061; 85027; 85610; 85730; 87081; 93458; C1760; C1894; 36415

== ENCOUNTER 2021-04-15 16:39 | Emergency (ER) | payer MEDICARE, MEDICAID ==
[~2021-04-15] VITALS: Ht 165.1 cm; Wt 94.3 kg
[~2021-04-15 16:39] MED LIST changes: -HEParin (CATH LAB) 2,000 ML IV ONE; -LIDOCAINE 1% INJ 20 ML 20 ML VIAL ONE; -MIDAZOLAM 5 MG/5 ML (VERSED) VIAL ONE; -NS IV 1000 ML 1,000 ML IV SCH; -NS IV 1000 ML 1,000 ML ONE; -fentaNYL INJ 100 MCG/2 ML AMP ONE
[2021-04-15] MEDS ORDERED: MUPIROCIN 2% OINT 22 GM (BACTROBAN) TUBE TOP STA (17:07)
[2021-04-15] MEDS ORDERED: NYSTATIN CREAM (MYCOSTATIN) 30 GM TUBE TP STA (17:07)
--- NOTE | 2021-04-15 17:10 | ED Integumentary General ---
General Chief Complaint: Skin/Wound Problems Stated Complaint: BLEEDING FROM HEART CATH Source: patient Exam Limitations: no limitations Allergies and Home Medications Allergies Coded Allergies: codeine (Unverified Allergy, Severe, rash, 01/11/11) lovastatin (Verified Allergy, Unknown, 08/19/15) Patient Home Medication List Apixaban (Eliquis) 2.5 Mg Tablet, 2.5 MG PO BID, (Reported) Entered as Reported by: AZ MCCULLOUGH on 08/16/17 1023 Aripiprazole (Aripiprazole) 10 Mg Tablet, 10 MG PO DAILY, (Reported) Entered as Reported by: JUNE MEZA on 04/13/21 0742 Aspirin (Aspirin EC) 81 Mg Tablet.dr, 81 MG PO DAILY, (Reported) Entered as Reported by: JUNE MEZA on 04/13/21 07 Docusate Sodium (Stool Softener) 100 Mg Capsule, 100 MG PO DAILY, (Reported) Entered as Reported by: JUNE MEZA on 04/13/21 07 Donepezil HCl (Donepezil HCl) 5 Mg Tablet, 5 MG PO HS, (Reported) Entered as Reported by: CARMINE TAYLOR on 04/21/15 0955 Duloxetine HCl (Cymbalta) 30 Mg Capsule.dr, 90 MG PO DAILY, (Reported) Entered as Reported by: JUNE MEZA on 04/13/21 07 Famotidine (Acid Closing Manager (FAMOTIDINE)) 20 Mg Tablet, 20 MG PO BID, (Reported) Entered as Reported by: JUNE MEZA on 04/13/21 07 Finasteride (Finasteride) 5 Mg Tablet, 5 MG PO DAILY, (Reported) Entered as Reported by: CARMINE TAYLOR on 04/21/15 0955 Furosemide (Furosemide) 20 Mg Tablet, 20 MG PO DAILY, (Reported) Entered as Reported by: JUNE MEZA on 04/13/21 07 Memantine HCl (Memantine HCl) 10 Mg Tablet, 10 MG PO BID, (Reported) Entered as Reported by: CARMINE TAYLOR on 04/21/15 0955 [place]-3 Fatty Acids/Fish Oil (Fish Oil 1,200 Mg Softgel) 1 Each Capsule, 1 CAP PO BID, (Reported) Entered as Reported by: JOHNNY FELICIANO on 08/23/13 1135 Oxybutynin Chloride (Oxybutynin Chloride) 5 Mg Tablet, 5 MG PO BID, (Reported) Entered as Reported by: CARMINE TAYLOR on 04/21/15 0955 Potassium Chloride (Potassium Chloride) 10 Meq Capsule.er, 10 MEQ PO DAILY, (Reported) Entered as Reported by: JUNE MEZA on 04/13/21 0742 Pravastatin Sodium (Pravastatin Sodium) 40 Mg Tablet, 40 MG PO DAILY, (Reported) Entered as Reported by: ANIBAL NAGEL on 04/20/15 1936 Tamsulosin HCl (Tamsulosin HCl) 0.4 Mg Cap.er.24h, 0.4 MG PO DAILY, (Reported) Entered as Reported by: CARMINE TAYLOR on 04/21/15 0955 Discontinued Medications Albuterol Sulfate (Proventil Hfa) 6.7 Gm Hfa.aer.ad, 2 PUFF IH Q4H PRN for WHEEZING, (Reported) Discontinued Reason: No Longer Taking Entered as Reported by: IRIS RODRIGUEZ on 08/19/15 1200 Alprazolam (Alprazolam) 0.5 Mg Tablet, 0.5 MG PO BID PRN for ANXIETY, (Reported) Discontinued Reason: No Longer Taking Entered as Reported by: CARMINE TAYLOR on 04/21/15 0955 Amlodipine Besylate (Amlodipine Besylate) 5 Mg Tablet, 5 MG PO DAILY, (Reported) Discontinued Reason: No Longer Taking Entered as Reported by: JOSH ARCHER on 04/20/15 1536 Cephalexin (Keflex) 500 Mg Capsule, 1 TAB PO BID Discontinued Reason: No Longer Taking Prescribed by: KAREN LOCKHART on 08/25/15 0910 Cyclobenzaprine HCl (Cyclobenzaprine HCl) 10 Mg Tablet, 10 MG PO Q8H Discontinued Reason: No Longer Taking Prescribed by: MATT PURVIS on 03/24/17 204 Cyclobenzaprine HCl (Cyclobenzaprine HCl) 5 Mg Tablet, 5 MG PO TID PRN for PAIN-MODERATE TO SEVERE Discontinued Reason: No Longer Taking Prescribed by: FEI OTTO on 08/28/17 2255 Docusate Sodium (Colace Clear) 50 Mg Capsule, 50 MG PO HS PRN for CONSTIPATION, (Reported) Discontinued Reason: No Longer Taking Entered as Reported by: ANIBAL NAGEL on 04/20/15 193 Polyethylene Glycol 3350 (Miralax) 17 Gm Powd.pack, 17 GM PO DAILY PRN for CONSTIPATION, (Reported) Discontinued Reason: No Longer Taking Entered as Reported by: ANIBAL NAGEL on 04/20/151935 Sennosides (Sennosides) 8.6 Mg Tablet, 17.2 MG PO DAILY, (Reported) Discontinued Reason: No Longer Taking Entered as Reported by: ANIBAL NAGEL on 04/20/15 193 Sulfamethoxazole/Trimethoprim (Bactrim Ds Tablet) 1 Each Tablet, 1 EACH PO BID Discontinued Reason: No Longer Taking Prescribed by: CANDIS SHORE on 06/23/172123 Tramadol HCl (Ultram) 50 Mg Tablet, 50 MG PO Q4H Discontinued Reason: No Longer Taking Prescribed by: MATT PURVIS on 03/24/17 204 Tramadol HCl (Tramadol HCl) 50 Mg Tablet, 50 MG PO Q6H PRN for PAIN Discontinued Reason: No Longer Taking Prescribed by: STACI RODRIGUEZ on 02/22/21 1137 Trazodone HCl (Trazodone HCl) 100 Mg Tablet, 100 MG PO HS, (Reported) Discontinued Reason: No Longer Taking Entered as Reported by: ANIBAL NAGEL on 04/20/151934 Valacyclovir HCl (Valacyclovir) 1,000 Mg Tablet, 1,000 MG PO TID Discontinued Reason: No Longer Taking Prescribed by: STACI RODRIGUEZ on 10/21/20 1713 [Toradol] , 1 TAB PO PRN Discontinued Reason: No Longer Taking Prescribed by: KAREN LOCKHART on 08/25/15 0910 Past Vwegajm-Yjxwog-Vywpef Hx Patient Social History Tobacco Use?: No Use of E-Cig and/or Vaping dev: No Substance use?: No Alcohol Use?: No Pt feels they are or have been: No Immunizations Up To Date Tetanus Booster (TDap): Less than 5yrs PED Vaccines UTD: Yes First/Initial COVID19 Vaccinat: JULY Second COVID19 Vaccination Maurizio: July COVID19 Vaccination Date: JULY Seasonal Allergies Seasonal Allergies: No Past Medical History Surgeries: Yes (HERNIA REPAIR, CYSTOCELE, neck) Abdominal, Orthopedic Respiratory: Yes COPD Currently Using CPAP: Yes Cardiac: Yes (DVT LEFT LEG) Deep Vein Thrombosis, High Cholesterol, Hypertension Neurological: Yes (mild alzheimer's ) Dementia, TIA Reproductive Disorders: No Genitourinary: Yes (RENAL CYST; INCONTINENCE, OVERACTIVE BLADDER) Benign Prostatic Hyperpl, Prostate Problems Gastrointestinal: Yes (hx of constipation issues) Chronic Constipation Musculoskeletal: Yes (GAIT INSTABILITY) Arthritis Endocrine: No (renal cyst) HEENT: No Hearing Impairment: Hard of Hearing Cancer: No Psychosocial: Yes Sleep Difficulties, Anxiety, Depression Integumentary: No Blood Disorders: Yes (hx of dvt) Adverse Reaction/Blood Tranf: No Family Medical History FH: heart disease 19 FATHER Physical Exam Vital Signs Capillary Refill : Progress/Results/Core Measures Results/Orders My Orders Orders - YADI GILMAN MD Mupirocin Ointment (Bactroban Ointment (04/15/21 17:07) Nystatin Cream (Mycostatin Cream) (04/15/21 17:07) Departure Impression Primary Impression: Intertrigo Disposition: 01 HOME, SELF-CARE Condition: Stable Departure-Patient Inst. Decision time for Depature: 17:08 Referrals: [facility] (PCP) Primary Care Physician CARLOS EMERSON APRN (Family) Primary Care Physician Patient Instructions: Intertrigo Add. Discharge Instructions: Your bleeding is likely from some skin irritation in the skin fold but not from the heart cath incision. There may be some bacterial and/or yeast contributing to this. Next a dab of the nystatin cream and a dab of the Bactroban ointment together on the palm of your hand and then wipe a thin layer over the affected areas twice daily. Do this for about a week. Return to care if you have worsening symptoms. Call with questions or concerns. All discharge instructions reviewed with patient and/or family. Voiced understanding. YADI GILMAN MD Apr 15, 2021 17:10
[2021-04-15 17:31] VITALS: BP 121/78
== END 2021-04-15 17:31 | disposition home or self-care (01) ==
LOC: EDUNIT# 16:39 → ER 16:41
DX: L30.4 Erythema intertrigo (principal); J44.9 Chronic obstructive pulmonary disease, unspecified; I10 Essential (primary) hypertension; G30.9 Alzheimer's disease, unspecified; F02.80 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 classified elsewhere, unspecified severity, without behavioral disturbance, psychotic disturbance, mood disturbance, and anxiety; N40.0 Benign prostatic hyperplasia without lower urinary tract symptoms; E78.00 Pure hypercholesterolemia, unspecified; F41.9 Anxiety disorder, unspecified; F32.9 Major depressive disorder, single episode, unspecified; Z86.718 Personal history of other venous thrombosis and embolism; Z86.73 Personal history of transient ischemic attack (TIA), and cerebral infarction without residual deficits; Z79.82 Long term (current) use of aspirin; Z79.01 Long term (current) use of anticoagulants; Z79.899 Other long term (current) drug therapy
CPT/HCPCS: 99281

== ENCOUNTER → 2021-04-25 | Outpatient (CLI) | LOC: MERGE 06:03 → LABNPT 06:03 | PROVIDERS: ATTEND Orthopaedic Surgery | DX: Z53.9 Procedure and treatment not carried out, unspecified reason (principal) ==

== ENCOUNTER 2021-05-07 18:24 | Inpatient (IN) | payer MEDICARE, MEDICAID ==
[~2021-05-07] VITALS: Ht 157.5 cm; Wt 91.0 kg
--- NOTE | 2021-05-07 18:38 | ED Respiratory ---
General Stated Complaint: SOA/COUGH Source: patient (LIMITED HISTORIAN--HAS DEMENTIA), spouse History of Present Illness Date Seen by Provider: May 07, 2021 Time Seen by Provider: 18:33 Initial Comments PT ARRIVES VIA POV FROM HOME STATES HE HAS BEEN SICK FOR A WEEK WITH COUGH, CONGESTION, SHORTNESS OF BREATH STATES HE TESTED NEGATIVE FOR COVID YESTERDAY AT DRIVE THRU TESTING AT [facility], DID NOT ACTUALLY SEE A PROVIDER NO FEVER HAS CHRONIC LEG EDEMA, IS NOT SURE IF IT IS ANY WORSE THAN NORMAL NO CHEST PAIN PT HAS HAD COVID-19 VACCINES X 3 ( REGULAR VACCINE + BOOSTER) PT HAS HAD MULTIPLE VISITS HAS COPD, CHF, HX OF DVT AND PE, HTN--ON ELIQUIS + ASPIRIN PCP: [facility], WAS SEEING TRUDY EMERSON, JUST SWITCHED TO TRUDY BAH Allergies and Home Medications Allergies Coded Allergies: codeine (Unverified Allergy, Severe, rash, 01/11/11) lovastatin (Verified Allergy, Unknown, 08/19/15) Patient Home Medication List Home Medication List Reviewed: Yes Apixaban (Eliquis) 2.5 Mg Tablet, 2.5 MG PO BID, (Reported) Entered as Reported by: AZ MCCULLOUGH on 08/16/17 1023 Last Action: Last Taken Edited Aripiprazole (Aripiprazole) 10 Mg Tablet, 10 MG PO DAILY, (Reported) Entered as Reported by: JUNE MEZA on 04/13/21741 Last Action: Last Taken Edited Aspirin (Aspirin EC) 81 Mg Tablet., 81 MG PO DAILY, (Reported) Entered as Reported by: JUNE MEZA on 04/13/21741 Last Action: Last Taken Edited Docusate Sodium (Stool Softener) 100 Mg Capsule, 100 MG PO DAILY, (Reported) Entered as Reported by: UJNE MEZA on 04/13/21741 Last Action: Last Taken Edited Donepezil HCl (Donepezil HCl) 5 Mg Tablet, 5 MG PO HS, (Reported) Entered as Reported by: CARMINE TAYLOR on 04/21/15 0955 Last Action: Last Taken Edited Duloxetine HCl (Cymbalta) 30 Mg Capsule., 90 MG PO DAILY, (Reported) Entered as Reported by: JUNE MEZA on 04/13/21741 Last Action: Last Taken Edited Famotidine (Acid Solid Waste Disposal Manager (FAMOTIDINE)) 20 Mg Tablet, 20 MG PO BID, (Reported) Entered as Reported by: JUNE MEZA on 04/13/21741 Last Action: Last Taken Edited Finasteride (Finasteride) 5 Mg Tablet, 5 MG PO DAILY, (Reported) Entered as Reported by: CARMINE TAYLOR on 04/21/15954 Last Action: Last Taken Edited Furosemide (Furosemide) 20 Mg Tablet, 20 MG PO DAILY, (Reported) Entered as Reported by: JUNE MEZA on 04/13/21741 Last Action: Last Taken Edited Memantine HCl (Memantine HCl) 10 Mg Tablet, 10 MG PO BID, (Reported) Entered as Reported by: CARMINE TAYLOR on 04/21/15954 Last Action: Last Taken Edited [place]-3 Fatty Acids/Fish Oil (Fish Oil 1,200 Mg Softgel) 1 Each Capsule, 1 CAP PO BID, (Reported) Entered as Reported by: JOHNNY FELICIANO on 08/23/13 113 Last Action: Last Taken Edited Oxybutynin Chloride (Oxybutynin Chloride) 5 Mg Tablet, 5 MG PO BID, (Reported) Entered as Reported by: CARMINE TAYLOR on 04/21/15954 Last Action: Last Taken Edited Potassium Chloride (Potassium Chloride) 10 Meq Capsule.er, 10 MEQ PO DAILY, (Reported) Entered as Reported by: JUNE MEZA on 04/13/21741 Last Action: Last Taken Edited Pravastatin Sodium (Pravastatin Sodium) 40 Mg Tablet, 40 MG PO DAILY, (Reported) Entered as Reported by: ANIBAL NAGEL on 04/20/151935 Last Action: Last Taken Edited Tamsulosin HCl (Tamsulosin HCl) 0.4 Mg Cap.er.24h, 0.4 MG PO DAILY, (Reported) Entered as Reported by: CARMINE TAYLOR on 04/21/15954 Last Action: Last Taken Edited Review of Systems Review of Systems Constitutional: no symptoms reported EENTM: no symptoms reported Respiratory: see HPI, cough, short of breath Cardiovascular: see HPI; No chest pain; edema Gastrointestinal: no symptoms reported Genitourinary: no symptoms reported Musculoskeletal: see HPI Skin: no symptoms reported Psychiatric/Neurological: See HPI, Other (NORMAL BASELINE) Hematologic/Lymphatic: No Symptoms Reported Immunological/Allergic: no symptoms reported Past Tjntzny-Bqnyzv-Ttbvok Hx Patient Social History Tobacco Use?: Yes Tobacco type used: Cigarettes Smoking Status: Former Smoker Immunizations Up To Date Tetanus Booster (TDap): Less than 5yrs PED Vaccines UTD: Yes First/Initial COVID19 Vaccinat: July COVID19 Vaccination Maurizio: July COVID19 Vaccination Date: JULY Seasonal Allergies Seasonal Allergies: No Past Medical History Surgeries: Yes (HERNIA REPAIR, CYSTOCELE, neck) Abdominal, Orthopedic Respiratory: Yes Pulmonary Embolism, COPD Currently Using CPAP: Yes Cardiac: Yes (DVT LEFT LEG; CHRONIC LEG EDEMA--LEFT > RIGHT) Chronic Edema/Swelling, Coronary Artery Disease, Deep Vein Thrombosis, High Cholesterol, Hypertension Neurological: Yes (mild alzheimer's ) Dementia, TIA Reproductive Disorders: No Genitourinary: Yes (RENAL CYST; INCONTINENCE, OVERACTIVE BLADDER) Benign Prostatic Hyperpl, Prostate Problems Gastrointestinal: Yes (hx of constipation issues) Abdominal Hernia, Chronic Constipation Musculoskeletal: Yes (GAIT INSTABILITY; LEFT HIP REPLACEMENT) Arthritis Endocrine: Yes (OBESITY) HEENT: Yes Hearing Impairment: Hard of Hearing Cancer: No Psychosocial: Yes Sleep Difficulties, Anxiety, Depression Integumentary: Yes (SHINGLES) Blood Disorders: Yes (hx of dvt) Adverse Reaction/Blood Tranf: No Family Medical History FH: heart disease 19 FATHER SOCIAL HISTORY: -SMOKING--QUIT 30 YEARS AGO -ETOH--DENIES USE -DRUGS--DENIES USE PAST SURGICAL HISTORY: -HERNIA REPAIR -HYDROCOELE REPAIR -CERVICAL SPINE SURGERY WITH HARDWARE -07/2020--LEFT HIP REPLACEMENT BY DR. MARIE -04/13/21--CARDIAC CATH BY DR. JUAREZ: CONCLUSION: 1. Mild coronary artery disease nonobstructive disease 2. Normal left ventricular end-diastolic pressure 3. Hypertensive changes in the abdominal and thoracic aorta with S shaped abdominal aorta, no dissection or aneurysm DISCUSSION AND RECOMMENDATION: Continue to maximize medical therapy. No intervention is needed Physical Exam Vital Signs - First Documented 05/07/21 05/07/21 18:30 18:56 Temp 37.0 Pulse 96 Resp 34 B/P (MAP) 184/124 (144) Pulse Ox 100 O2 Delivery NIV Bilevel O2 Flow Rate 50.00 Capillary Refill : Height: 5'6.00" Weight: 201lbs. 0.8oz. 92.363025wp; 34.00 BMI Method:Stated General Appearance: mild distress (MILDLY DYSPNEIC, BUT ABLE TO TALK IN SHORT SENTENCES), obese, other (VERY PLEASANT AND REMEMBERS STAFF NAMES FROM PRIOR VISITS) HEENT: other (POOR DENTITION) Respiratory: respiratory distress, decreased breath sounds, accessory muscle us e, rales Cardiovascular: regular rate, rhythm, no murmur Gastrointestinal: non tender, soft Extremities: no calf tenderness, pedal edema (4+ EDEMA ON LEFT, 3+ EDEMA ON RIGHT--NORMAL SINCE LEFT HIP REPLACEMENT IN JULY OF THIS YEAR, AND REMOTE HX OF DVT IN LEFT LEG) Neurologic/Psychiatric: 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, no motor/sensory deficits, alert, normal mood/affect, oriented x 3 (BUT SOME LIMITED MEMORY) Focused Exam Sepsis Stage: Ruled Out Possible Source: Pulmonary Lactate Level 05/07/21 18:45: Lactic Acid Level 1.72 Time of Focused Exam: 19:30 Respiratory: No Accessory Muscle Use, No Respiratory Distress, Rales Cardiovascular: Regular Rate, Rhythm, No Murmur Skin: normal color, warm/dry Lactic Acid Level Laboratory Tests Test 05/07/21 18:45 Lactic Acid Level 1.72 MMOL/L (0.50-2.00) Within 3hrs of presentation: Admin ABX, Blood cultures prior to ABX's, Focus exam, Lactate level, Other (NO FLUID BOLUS DUE TO CHF) Progress/Results/Core Measures Suspected Sepsis SIRS Temperature: Pulse: Respiratory Rate: Laboratory Tests 05/07/21 18:45: White Blood Count 8.5 Blood Pressure / Mean: 05/07/21 18:45: Lactic Acid Level 1.72 Laboratory Tests 05/07/21 18:45: Creatinine 0.95, INR Comment 1.1, Platelet Count 250, Total Bilirubin 0.2 Results/Orders Lab Results Laboratory Tests Test 05/07/21 18:45 05/07/21 20:11 05/07/21 20:20 Range/Units White Blood Count 8.5 4.3-11.0 10^3/uL Red Blood Count 4.16 L 4.30-5.52 10^6/uL Hemoglobin 11.8 L 13.3-17.7 g/dL Hematocrit 38 L 40-54 % Mean Corpuscular Volume 91 80-99 fL Mean Corpuscular Hemoglobin 28 25-34 pg Mean Corpuscular Hemoglobin Concent 31 L 32-36 g/dL Red Cell Distribution Width 13.3 10.0-14.5 % Platelet Count 250 130-400 10^3/uL Mean Platelet Volume 9.6 9.0-12.2 fL Immature Granulocyte % (Auto) 1 % Neutrophils (%) (Auto) 76 H 42-75 % Lymphocytes (%) (Auto) 9 L 12-44 % Monocytes (%) (Auto) 11 0-12 % Eosinophils (%) (Auto) 3 0-10 % Basophils (%) (Auto) 1 0-10 % Neutrophils # (Auto) 6.5 1.8-7.8 10^3/uL Lymphocytes # (Auto) 0.7 L 1.0-4.0 10^3/uL Monocytes # (Auto) 0.9 0.0-1.0 10^3/uL Eosinophils # (Auto) 0.3 0.0-0.3 10^3/uL Basophils # (Auto) 0.0 0.0-0.1 10^3/uL Immature Granulocyte # (Auto) 0.1 0.0-0.1 10^3/uL Erythrocyte Sedimentation Rate 48 H 0-30 MM/HR Prothrombin Time 14.7 12.2-14.7 SEC INR Comment 1.1 0.8-1.4 Activated Partial Thromboplast Time 36 H 24-35 SEC D-Dimer 0.92 H 0.00-0.49 UG/ML Blood Gas Puncture Site LEFT RADIAL R RADIAL Blood Gas Patient Temperature 37.0 37 Arterial Blood pH 7.35 L 7.37 7.37-7.43 Arterial Blood Partial Pressure CO2 52 H 54 H 35-45 MMHG Arterial Blood Partial Pressure O2 371 H 101 H 79-93 MMHG Arterial Blood HCO3 28 H 30 H 23-27 MMOL/L Arterial Blood Total CO2 29.4 31.6 H 21.0-31.0 MMOL/L Arterial Blood Oxygen Saturation 100 96 94-100 % Arterial Blood Base Excess 2.7 H 4.8 H -2.5-2.5 MMOL/L Ramsey Test POSITIVE YES-POS Blood Gas Ventilator Setting NO NO Blood Gas Inspired Oxygen 50% BIPAP 50% BIPAP Sodium Level 138 135-145 MMOL/L Potassium Level 3.4 L 3.6-5.0 MMOL/L Chloride Level 100 98-107 MMOL/L Carbon Dioxide Level 28 21-32 MMOL/L Anion Gap 10 5-14 MMOL/L Blood Urea Nitrogen 19 H 7-18 MG/DL Creatinine 0.95 0.60-1.30 MG/DL Estimat Glomerular Filtration Rate 77 BUN/Creatinine Ratio 20 Glucose Level 116 H 70-105 MG/DL Lactic Acid Level 1.72 0.50-2.00 MMOL/L Calcium Level 8.9 8.5-10.1 MG/DL Corrected Calcium 9.3 8.5-10.1 MG/DL Magnesium Level 1.9 1.6-2.4 MG/DL Total Bilirubin 0.2 0.1-1.0 MG/DL Aspartate Amino Transf (AST/SGOT) 36 H 5-34 U/L Alanine Aminotransferase (ALT/SGPT) 34 0-55 U/L Alkaline Phosphatase 143 H 40-136 U/L Total Creatine Kinase 72 30-200 U/L Creatine Kinase MB 1.6 <6.6 NG/ML Myoglobin 59.4 10.0-92.0 NG/ML Troponin I < 0.028 <0.028 NG/ML C-Reactive Protein High Sensitivity 7.72 H 0.00-0.50 MG/DL B-Type Natriuretic Peptide 85.3 <100.0 PG/ML Total Protein 6.8 6.4-8.2 GM/DL Albumin 3.5 3.2-4.5 GM/DL Procalcitonin 0.04 <0.10 NG/ML Influenza Type A (RT-PCR) Not Detected Not Detecte Influenza Type B (RT-PCR) Not Detected Not Detecte SARS-CoV-2 RNA (RT-PCR) Not Detected Not Detecte Urine Color YELLOW Urine Clarity CLEAR Urine pH 6.0 5-9 Urine Specific [place] 1.015 L 1.016-1.022 Urine Protein NEGATIVE NEGATIVE Urine Glucose (UA) NEGATIVE NEGATIVE Urine Ketones NEGATIVE NEGATIVE Urine Nitrite NEGATIVE NEGATIVE Urine Bilirubin NEGATIVE NEGATIVE Urine Urobilinogen 0.2 < = 1.0 MG/DL Urine Leukocyte Esterase NEGATIVE NEGATIVE Urine RBC (Auto) NEGATIVE NEGATIVE Urine RBC RARE /HPF Urine WBC NONE /HPF Urine Squamous Epithelial Cells NONE /HPF Urine Renal Epithelial Cells NONE /HPF Urine Crystals NONE /LPF Urine Bacteria NEGATIVE /HPF Urine Casts NONE /LPF Urine Mucus NEGATIVE /LPF Urine Culture Indicated CULTURE PENDING My Orders Orders - MATT PURVIS DO Bnp [place] (05/07/21 18:32) Cbc With Automated Diff (05/07/21 18:32) Comprehensive Metabolic Panel (05/07/21 18:32) Influenza A And B By Pcr (05/07/21 18:32) Procalcitonin (Pct) (05/07/21 18:32) Hs C Reactive Protein (05/07/21 18:32) Erythrocyte Sedimentation Rate (05/07/21 18:32) Chest 1 View, Ap/Pa Only (05/07/21 18:32) Covid 19 Inhouse Test (05/07/21 18:32) Ed Iv/Invasive Line Start (05/07/21 18:32) Monitor-Rhythm Ecg Trace Only (05/07/21 18:32) Ekg Tracing (05/07/21 18:46) O2 (05/07/21 18:46) Arterial Blood Gas (05/07/21 18:45) Creatine Kinase (05/07/21 18:46) Creatine Kinase Mb (05/07/21 18:46) Fibrin Degradation Products (05/07/21 18:46) Lactic Acid Analyzer (05/07/21 18:46) Magnesium (05/07/21 18:46) Protime With Inr (05/07/21 18:46) Partial Thromboplastin Time (05/07/21 18:46) Blood Culture (05/07/21 18:46) Myoglobin Serum (05/07/21 18:46) Troponin I Efrain (05/07/21 18:46) Albuterol/Ipra Inhalation Soln (Duoneb I (05/07/21 19:00) Dexamethasone Injection (Decadron Injec (05/07/21 19:00) Rt Request For Service (05/07/21 18:46) Methylprednisolone Sod Succ (Solu-Medrol (05/07/21 18:46) Svn Small Volume Nebulizer (05/07/21 18:46) Dexamethasone Injection (Decadron Injec (05/07/21 18:46) Albuterol/Ipra Inhalation Soln (Duoneb I (05/07/21 18:46) Furosemide Injection (Lasix Injection) (05/07/21 19:15) Nitroglycerin Ointment (Nitrobid Ointme (05/07/21 19:15) Ct Angio Chest W (05/07/21 19:15) Iohexol Injection (Omnipaque 350 Mg/Ml 1 (05/07/21 19:30) Received Contrast (Hold Metformin- Contr (05/07/21 19:30) Ns (Ivpb) (Sodium Chloride 0.9% Ivpb Bag (05/07/21 19:30) Iohexol Injection (Omnipaque 350 Mg/Ml 1 (05/07/21 19:30) Received Contrast (Hold Metformin- Contr (05/07/21 19:30) Ns (Ivpb) (Sodium Chloride 0.9% Ivpb Bag (05/07/21 19:30) Urinalysis (05/07/21 19:36) Urine Culture (05/07/21 19:36) Ed Iv/Invasive Line Start (05/07/21 19:36) Vital Signs Adult Sepsis Patie Q15M (05/07/21 19:36) Remove Rings In Anticipation O (05/07/21 19:36) Ceftriaxone 1 Gm Pre-Mix (Rocephin 1 Gm (05/07/21 19:45) Azithromycin Injection (Zithromax Inject (05/07/21 19:45) Catheter(Urinary) Insert & Ass 03,15 (05/07/21 19:55) Arterial Blood Gas (05/07/21 20:17) Ed Admission (Communication) (05/07/21 20:23) Medications Given in ED Current Medications Medications Dose Ordered Sig/Nathan Route Start Time Stop Time Status Last Admin Dose Admin Albuterol/ Ipratropium 3 ml ONCE ONCE INH 05/07/21 19:00 05/07/21 19:01 DC 05/07/21 18:54 3 ML Azithromycin 500 mg/Sodium Chloride 255 ml @ 250 mls/hr ONCE ONCE IV 05/07/21 19:45 05/07/21 20:46 DC 05/07/21 20:43 250 MLS/HR Ceftriaxone Sodium/Dextrose 50 ml @ 100 mls/hr ONCE ONCE IV 05/07/21 19:45 05/07/21 20:14 DC 05/07/21 20:25 100 MLS/HR Dexamethasone Sodium Phosphate 20 mg ONCE ONCE IH 05/07/21 19:00 05/07/21 19:01 DC 05/07/21 18:54 20 MG Furosemide 80 mg ONCE ONCE IVP 05/07/21 19:15 05/07/21 19:16 DC 05/07/21 19:23 80 MG Iohexol 100 ml ONCE ONCE IV 05/07/21 19:30 05/07/21 19:32 DC 05/07/21 19:50 78 ML Nitroglycerin 1 inch ONCE ONCE TOP 05/07/21 19:15 05/07/21 19:16 DC 05/07/21 19:28 1 INCH Sodium Chloride 100 ml ONCE ONCE IV 05/07/21 19:30 05/07/21 19:32 DC 05/07/21 19:50 80 ML Vital Signs/I&O 05/07/21 05/07/21 18:30 18:56 Temp 37.0 Pulse 96 98 Resp 34 27 B/P (MAP) 184/124 (144) Pulse Ox 100 100 O2 Delivery NIV Bilevel O2 Flow Rate 50.00 Capillary Refill : Progress Note : Progress Note O2 SAT 68% ON ROOM AIR ON ARRIVAL, PLACED ON 15L/NRB AND UP TO 94%, THEN SWITCHED TO BIPAP AND O2 SATS 100% IN-LINE NEB TREATMENT GIVEN THROUGH BIPAP IMMEDIATE IMPROVEMENT IN RESPIRATIONS--NOW NON-LABORED AND INCREASED AERATION COVID-19 TESTING DONE GIVEN LASIX + NITROPASTE FOR EDEMA AND FOR ELEVATED BP GIVEN ROCEPHIN + ZITHROMAX GIVEN SOLU-MEDROL NO DETERIORATION IN PT'S CONDITION DURING ER STAY PT WISHES TO BE A FULL CODE ECG Initial ECG Impression Date: May 07, 2021 Initial ECG Impression Time: 19:17 Initial ECG Rate: 91 Initial ECG Rhythm: Normal Sinus Diagnostic Imaging Comments CXR--PER RADIOLOGIST REPORT AT 1930 INDINGS: There is cardiomegaly. There are bilateral pulmonary infiltrates. No pleural effusion or pneumothorax. Mediastinum unremarkable. Small right central pulmonary venous congestion cannot be excluded IMPRESSION: Bilateral pulmonary infiltrates suspect for atypical pneumonia possibly COVID. Recommend clinical correlation. Cardiomegaly and some questionable central pulmonary venous congestion. CT CHEST ANGIOGRAM--PER RADIOLOGIST REPORT AT 2017 FINDINGS: There are bilateral groundglass infiltrates. There is a small left pleural effusion. There is a pericardial effusion. The thoracic aorta is normal in caliber without evidence of dissection. There are no filling defects within the pulmonary artery to suggest pulmonary embolism. There is no pathologically enlarged adenopathy in the chest. There is an unchanged small right adrenal nodule. The remainder of the intra-abdominal structures are unremarkable. IMPRESSION: Bilateral groundglass infiltrates suspect for atypical pneumonia likely COVID. There is also small left pleural effusion. No evidence of pulmonary embolism, aortic dissection or aneurysm Pericardial effusion. Unchanged small right adrenal nodule. Reviewed: Reviewed by Me Departure Communication (Admissions) 2018--SPOKE WITH DR. HONG, ACCEPTS PT FOR ADMIT. SHE WILL PUT IN ORDERS Impression Primary Impression: Acute on chronic respiratory failure Additional Impressions: Bilateral pneumonia CHF exacerbation COPD exacerbation HTN (hypertension) Disposition: ADMITTED INPATIENT Condition: Improved Admissions Decision to Admit Reason: Admit from ER (General) Decision to Admit/Date: May 07, 2021 Time/Decision to Admit Time: 20:20 Departure-Patient Inst. Referrals: [facility] (PCP) Primary Care Physician CARLOS EMERSON APRN (Family) Primary Care Physician MATT PURVIS DO May 07, 2021 18:38
[2021-05-07] MEDS ORDERED: RT-ALBUTEROL/IPRATROPIUM 3 ML (DUONEB) VIAL ONE (18:46)
[2021-05-07] MEDS ORDERED: methylPREDNISolone 125 MG (Solu-MEDROL) VIAL IV STA (18:46)
[2021-05-07 18:58] LABS: BASOPHILS % (AUTO) 1 % (0-10); EOSINOPHILS # (AUTO) 0.3 10^3/uL (0.0-0.3); EOSINOPHILS % (AUTO) 3 % (0-10); HEMATOCRIT 38 % (40-54); HEMOGLOBIN 11.8 g/dL (13.3-17.7); LYMPHOCYTES # (AUTO) 0.7 10^3/uL (1.0-4.0); LYMPHOCYTES % (AUTO) 9 % (12-44); MEAN CORPUSCULAR HEMOGLOBIN 28 pg (25-34); MEAN CORPUSCULAR HGB CONC 31 g/dL (32-36); MEAN CORPUSCULAR VOLUME 91 fL (80-99); MEAN PLATELET VOLUME 9.6 fL (9.0-12.2); MONOCYTES # (AUTO) 0.9 10^3/uL (0.0-1.0); MONOCYTES % (AUTO) 11 % (0-12); NEUTROPHILS # (AUTO) 6.5 10^3/uL (1.8-7.8); NEUTROPHILS % (AUTO) 76 % (42-75); PLATELET COUNT 250 10^3/uL (130-400); WHITE BLOOD COUNT 8.5 10^3/uL (4.3-11.0)
[2021-05-07] MEDS ORDERED: RT-ALBUTEROL/IPRATROPIUM 3 ML (DUONEB) VIAL INH ONE (19:00)
[2021-05-07 19:05] LABS: ALBUMIN 3.5 GM/DL (3.2-4.5); CHLORIDE 100 MMOL/L (98-107); POTASSIUM 3.4 MMOL/L (3.6-5.0); SODIUM 138 MMOL/L (135-145)
[2021-05-07 19:07] LABS: ABG BASE EXCESS 2.7 MMOL/L (-2.5-2.5); ABG OXYGEN SATURATION 100 % (94-100); ABG PCO2 52 MMHG (35-45); ABG PH 7.35 (7.37-7.43); ABG PO2 371 MMHG (79-93); ABG TCO2 29.4 MMOL/L (21.0-31.0); ALLENS TEST POSITIVE; CALCIUM 8.9 MG/DL (8.5-10.1); INSPIRED O2 50% BIPAP; VENTILATOR NO
[2021-05-07 19:08] LABS: GLUCOSE 116 MG/DL (70-105); TOTAL PROTEIN 6.8 GM/DL (6.4-8.2)
[2021-05-07 19:09] LABS: BILIRUBIN,TOTAL 0.2 MG/DL (0.1-1.0); CARBON DIOXIDE 28 MMOL/L (21-32); FIBRIN DEGRADATION PRODUCTS 0.92 UG/ML (0.00-0.49); INR 1.1 (0.8-1.4); PROTHROMBIN TIME PATIENT 14.7 SEC (12.2-14.7)
[2021-05-07 19:11] LABS: ALKALINE PHOSPHATASE 143 U/L (40-136); CREATININE SERUM 0.95 MG/DL (0.60-1.30); GFR ESTIMATED 77
[2021-05-07 19:12] LABS: BUN/CREATININE RATIO 20
[2021-05-07 19:14] LABS: ALANINE AMINOTRANSFERASE 34 U/L (0-55); MAGNESIUM 1.9 MG/DL (1.6-2.4)
[2021-05-07 19:15] LABS: CREATINE KINASE 72 U/L (30-200)
[2021-05-07] MEDS ORDERED: NITROGLYCERIN 2% OINT 1 GM UNIT DOSE PACKET TOP ONE (19:15)
[2021-05-07] MEDS ORDERED: FUROSEMIDE 40 MG/4 ML INJ (LASIX) IVP ONE (19:15)
[2021-05-07 19:18] LABS: ERYTHROCYTE SEDIMENTATION RATE 48 MM/HR (0-30)
[2021-05-07 19:22] LABS: CREATINE KINASE MB 1.6 NG/ML (<6.6)
--- NOTE | 2021-05-07 19:24 | Diagnostic Imaging Report ---
INDICATION: Cough. Comparison made with prior examination of 04/13/2021. FINDINGS: There is cardiomegaly. There are bilateral pulmonary infiltrates. No pleural effusion or pneumothorax. Mediastinum unremarkable. Small right central pulmonary venous congestion cannot be excluded IMPRESSION: Bilateral pulmonary infiltrates suspect for atypical pneumonia possibly COVID. Recommend clinical correlation. Cardiomegaly and some questionable central pulmonary venous congestion. Dictated by: Dictated on workstation # [id number]
[2021-05-07] MEDS ORDERED: IOHEXOL 350 MG/ML 100 ML (OMNIPAQUE 350) VIAL IV ONE ×2 (19:30)
[2021-05-07] MEDS ORDERED: NS 100 ML (IVPB) BAG IV ONE ×2 (19:30)
[2021-05-07] MEDS ORDERED: HOLD METFORMIN - RECEIVED CONTRAST 20 ML VIAL IV SCH ×2 (19:30)
[2021-05-07] MEDS ORDERED: AZITHROMYCIN INJECTION 500 MG in NS (IVPB) 250 ML IV ONE (19:45)
[2021-05-07] MEDS ORDERED: cefTRIAXone 1 GM PRE-MIX 50 ML IV ONE (19:45)
--- NOTE | 2021-05-07 20:09 | Diagnostic Imaging Report ---
PROCEDURE: CT angiography of the chest with contrast. TECHNIQUE: Multiple contiguous axial images were obtained through the chest after uneventful bolus administration of intravenous contrast. 3D reconstructed CTA MIP acquisitions were also performed. Auto Exposure Controls were utilized during the CT exam to meet ALARA standards for radiation dose reduction. INDICATION: Chest pain and shortness of breath. FINDINGS: There are bilateral groundglass infiltrates. There is a small left pleural effusion. There is a pericardial effusion. The thoracic aorta is normal in caliber without evidence of dissection. There are no filling defects within the pulmonary artery to suggest pulmonary embolism. There is no pathologically enlarged adenopathy in the chest. There is an unchanged small right adrenal nodule. The remainder of the intra-abdominal structures are unremarkable. IMPRESSION: Bilateral groundglass infiltrates suspect for atypical pneumonia likely COVID. There is also small left pleural effusion. No evidence of pulmonary embolism, aortic dissection or aneurysm Pericardial effusion. Unchanged small right adrenal nodule. Dictated by: Dictated on workstation # [id number]
[2021-05-07 20:16] LABS: BILIRUBIN,URINE NEGATIVE (NEGATIVE); CLARITY,URINE CLEAR; COLOR,URINE YELLOW; GLUCOSE, URINE (UA) NEGATIVE (NEGATIVE); KETONES,URINE NEGATIVE (NEGATIVE); LEUKOCYTE ESTERASE ,URINE NEGATIVE (NEGATIVE); NITRITE,URINE NEGATIVE (NEGATIVE); PROTEIN,URINE NEGATIVE (NEGATIVE)
[2021-05-07 20:24] LABS: BACTERIA,URINE NEGATIVE /HPF; RBC,URINE RARE /HPF
[2021-05-07 20:25] LABS: ABG BASE EXCESS 4.8 MMOL/L (-2.5-2.5); ABG OXYGEN SATURATION 96 % (94-100); ABG PCO2 54 MMHG (35-45); ABG PH 7.37 (7.37-7.43); ABG PO2 101 MMHG (79-93); ABG TCO2 31.6 MMOL/L (21.0-31.0); ALLENS TEST YES-POS
[2021-05-07 20:26] LABS: INSPIRED O2 50% BIPAP; PATIENT TEMP 37; VENTILATOR NO
--- NOTE | 2021-05-07 21:33 | Tele-ICU Consult ---
History of Present Illness History of Present Illness Date Seen by Provider: May 07, 2021 Time Seen by Provider: 21:28 Date of Admission 75 y old man with copd/chf admitted with sob and acute hypoxemic resp failure; pt is COVID - and vaccinated. Pt responded well to BIPAP; CT chest showed no PE. Allergies and Home Medications Allergies Coded Allergies: codeine (Unverified Allergy, Severe, rash, 01/11/11) lovastatin (Verified Allergy, Unknown, 08/19/15) Home Medications Apixaban 2.5 Mg Tablet, 2.5 MG PO BID, (Reported) Aripiprazole 10 Mg Tablet, 10 MG PO DAILY, (Reported) Aspirin 81 Mg Tablet.dr, 81 MG PO DAILY, (Reported) Docusate Sodium 100 Mg Capsule, 100 MG PO DAILY, (Reported) Donepezil HCl 5 Mg Tablet, 5 MG PO HS, (Reported) Duloxetine HCl 30 Mg Capsule.dr, 90 MG PO DAILY, (Reported) Famotidine 20 Mg Tablet, 20 MG PO BID, (Reported) Finasteride 5 Mg Tablet, 5 MG PO DAILY, (Reported) Furosemide 20 Mg Tablet, 20 MG PO DAILY, (Reported) Memantine HCl 10 Mg Tablet, 10 MG PO BID, (Reported) [place]-3 Fatty Acids/Fish Oil 1 Each Capsule, 1 CAP PO BID, (Reported) Oxybutynin Chloride 5 Mg Tablet, 5 MG PO BID, (Reported) Potassium Chloride 10 Meq Capsule.er, 10 MEQ PO DAILY, (Reported) Pravastatin Sodium 40 Mg Tablet, 40 MG PO DAILY, (Reported) Tamsulosin HCl 0.4 Mg Cap.er.24h, 0.4 MG PO DAILY, (Reported) Past Medical/Social/Family Hx Patient Social History Tobacco Use?: Yes Tobacco type used: Cigarettes Smoking Status: Former Smoker Use of E-Cig and/or Vaping dev: No Substance use?: No Alcohol Use?: No Immunizations Up To Date Influenza Vaccine Up-to-Date: Yes; Up-to-Date First/Initial COVID19 Vaccinat: 2020 Second COVID19 Vaccination Maurizio: 2020 Date of Pneumonia Vaccine: Feb 18, 2015 Current Status Advance Directives: No Communicates: Verbally Primary Language: Setswana Preferred Spoken Language: Setswana Past Medical History Past Medical History 1. Alzheimer's Dementia - without behavioral disturbances 2. History of RLE DVT post leg fracture 2007 3. 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 Hypertension 5. Hyperlipidemia 6. Chronic constipation 7. Benign Prostatic Hypertrophy with obstructive symptoms 8. Hydrocele left without surgical indication per urology 9. Anxiety 10. Tubular Adenoma resected per Colonoscopy 2012 Past Surgical History 1. Colonoscopy 2012 2. Left inguinal hernia repair with mesh 2012 [place] [facility] Medical History Family Hx: SOCIAL HISTORY: -SMOKING--QUIT 30 YEARS AGO -ETOH--DENIES USE -DRUGS--DENIES USE PAST SURGICAL HISTORY: -HERNIA REPAIR -HYDROCOELE REPAIR -CERVICAL SPINE SURGERY WITH HARDWARE -07/2020--LEFT HIP REPLACEMENT BY DR. MARIE -04/13/21--CARDIAC CATH BY DR. JUAREZ: CONCLUSION: 1. Mild coronary artery disease nonobstructive disease 2. Normal left ventricular end-diastolic pressure 3. Hypertensive changes in the abdominal and thoracic aorta with S shaped abdominal aorta, no dissection or aneurysm DISCUSSION AND RECOMMENDATION: Continue to maximize medical therapy. No intervention is needed Review of Systems Constitutional: see HPI Focused Exam Lactate Level 05/07/21 18:45: Lactic Acid Level 1.72 Height, Weight, BMI Height: 5'6.00" Weight: 201lbs. 0.8oz. 92.683873sd; 37.00 BMI Method:Stated Time of Focused Exam: 19:30 Lactic Acid Level Laboratory Tests Test 05/07/21 18:45 Lactic Acid Level 1.72 MMOL/L (0.50-2.00) Exam Exam Patient acknowledged, consented, and participated in this virtual visit which was conducted using real time audio/video Vital Signs Date Time Temp Pulse Resp B/P (MAP) Pulse Ox O2 Delivery O2 Flow Rate FiO2 05/07/21 18:56 98 27 100 50.00 05/07/21 18:30 37.0 96 34 184/124 (144) 100 NIV Bilevel Height & Weight Height: 5'6.00" Weight: 201lbs. 0.8oz. 92.840314sf; 37.00 BMI Method:Stated General Appearance: No Apparent Distress, Chronically ill Respiratory: No Accessory Muscle Use, No Respiratory Distress, Rales Cardiovascular: Regular Rate, Rhythm, No Murmur Capillary Refill: Less Than 3 Seconds Gastrointestinal: non tender, soft Results Lab Laboratory Tests 05/07/21 18:45 Assessment/Plan Assessment/Plan Acute hytpoxemic resp failure -chf/ copd exacerbation -BIPAP/ABG -bipap 16/8 25% -diuresis/ bp control -steroids/ duo neb -empiric abx ENZO PEDRO MD May 07, 2021 21:33
[2021-05-07 22:42] VITALS: BP 131/108
[2021-05-07] MEDS ORDERED: RT-ALBUTEROL SULF 2.5 MG/3 ML PRE-MIX VIAL INH PRN (22:45)
[2021-05-08] MEDS ORDERED: RT-ALBUTEROL HFA 8.5 GM INHALER IH PRN (00:15)
[2021-05-08] MEDS ORDERED: ARIP10TA10 PO (00:40)
[2021-05-08] MEDS ORDERED: TRAZ150T72 PO (00:41)
[2021-05-08] MEDS ORDERED: MEMA10TA2 PO (00:43)
[2021-05-08] MEDS ORDERED: RT-ALBUTEROL/IPRATROPIUM 3 ML (DUONEB) VIAL INH SCH (02:00)
[2021-05-08 03:24] VITALS: BP 138/94
[2021-05-08] MEDS: RT-ALBUTEROL HFA 8.5 GM INHALER IH SCH ×6 (03:24→22:39)
[2021-05-08] MEDS ORDERED: KCL 20 MEQ TAB (K-DUR) PO SCH (06:00)
[2021-05-08] MEDS ORDERED: POTASSIUM CL 10MEQ/50ML IVPB 50 ML IV SCH (06:00)
[2021-05-08] MEDS ORDERED: MAGNESIUM 1 GM/100 ML IVPB 100 ML IV SCH (06:00)
[2021-05-08 06:03] LABS: BASOPHILS % (AUTO) 0 % (0-10); EOSINOPHILS % (AUTO) 0 % (0-10); HEMATOCRIT 36 % (40-54); HEMOGLOBIN 11.6 g/dL (13.3-17.7); LYMPHOCYTES # (AUTO) 0.6 10^3/uL (1.0-4.0); LYMPHOCYTES % (AUTO) 8 % (12-44); MEAN CORPUSCULAR HEMOGLOBIN 28 pg (25-34); MEAN CORPUSCULAR HGB CONC 32 g/dL (32-36); MEAN CORPUSCULAR VOLUME 89 fL (80-99); MEAN PLATELET VOLUME 9.8 fL (9.0-12.2); MONOCYTES # (AUTO) 0.1 10^3/uL (0.0-1.0); MONOCYTES % (AUTO) 2 % (0-12); NEUTROPHILS # (AUTO) 6.2 10^3/uL (1.8-7.8); NEUTROPHILS % (AUTO) 89 % (42-75); PLATELET COUNT 243 10^3/uL (130-400); WHITE BLOOD COUNT 6.9 10^3/uL (4.3-11.0)
[2021-05-08 06:22] LABS: CALCIUM 8.8 MG/DL (8.5-10.1)
[2021-05-08 06:26] LABS: CREATININE SERUM 0.78 MG/DL (0.60-1.30)
[2021-05-08 06:28] LABS: MAGNESIUM 2.1 MG/DL (1.6-2.4)
[2021-05-08 06:56] LABS: LYMPHOCYTES % (MANUAL) 8 %; MONOCYTES % (MANUAL) 2 %; NEUTROPHILS % (MANUAL) 90 %
--- NOTE | 2021-05-08 09:12 | History & Physical ---
HPI History of Present Illness: Has been sick with shortness of breath and cough for about a week, couldn't walk across house well. Denies fever. Has tested for COVID19 at clinic and it was negative, he doesn't recall the day. He has had two doses of COVID19 vaccine and a booster. His says that they thought he might have bronchitis, he has been diagnosed with COPD in the past and is supposed to use inhalers at home but does not. He says his legs have been swollen for a couple of weeks. Source: patient Date seen by provider: May 08, 2021 Time Seen by Provider: 09:10 Attending Physician Tanvi Cheng MD [facility] [place] [place] Consult Date of Admission May 07, 2021 at 20:24 Home Medications Home Medications Reviewed patient Home Medication Reconciliation performed by pharmacy medication reconciliations technician trainee and/or nursing. Patients Allergies have been reviewed. Allergies Coded Allergies: codeine (Unverified Allergy, Severe, rash, 01/11/11) lovastatin (Verified Allergy, Unknown, 08/19/15) [id number]-[id number] Hx Patient Social History Smoking Status: Former Smoker Former smoker/When Quit: May 21, 1984 2nd Hand Smoke Exposure: No Recent Hopitalizations: No Alcohol Use?: No Tobacco type used: Cigarettes Have you traveled recently?: No Immunizations Up To Date Tetanus Booster (TDap): Less than 5yrs Influenza Vaccine Up-to-Date: Yes; Up-to-Date First/Initial COVID19 Vaccinat: 2020 Second COVID19 Vaccination Maurizio: 2020 Third COVID19 Vaccination Date: 2020 COVID19 Vaccine Housekeeping Room Attendant: MODERNA Past Medical History Past Medical History 1. Alzheimer's Dementia - without behavioral disturbances 2. History of RLE DVT post leg fracture 2007 3. 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 Hypertension 5. Hyperlipidemia 6. Chronic constipation 7. Benign Prostatic Hypertrophy with obstructive symptoms 8. Hydrocele left without surgical indication per urology 9. Anxiety 10. Tubular Adenoma resected per Colonoscopy 2012 11. COPD Past Surgical History 1. Colonoscopy 2012 2. Left inguinal hernia repair with mesh 2012 Jagjit 3. Left hip replacement 07/2020 Family Medical History Other Significan Family Hx: SOCIAL HISTORY: -SMOKING--QUIT 30 YEARS AGO -ETOH--DENIES USE -DRUGS--DENIES USE PAST SURGICAL HISTORY: -HERNIA REPAIR -HYDROCOELE REPAIR -CERVICAL SPINE SURGERY WITH HARDWARE -07/2020--LEFT HIP REPLACEMENT BY DR. MARIE -04/13/21--CARDIAC CATH BY DR. JUAREZ: CONCLUSION: 1. Mild coronary artery disease nonobstructive disease 2. Normal left ventricular end-diastolic pressure 3. Hypertensive changes in the abdominal and thoracic aorta with S shaped abdominal aorta, no dissection or aneurysm DISCUSSION AND RECOMMENDATION: Continue to maximize medical therapy. No intervention is needed Family History: FH: heart disease 19 FATHER Review of Systems ([facility]) Constitutional: No fever EENTM: No nose congestion, No throat pain Respiratory: cough, short of breath Cardiovascular: No chest pain Gastrointestinal: constipation; No diarrhea, No nausea, No vomiting Genitourinary: No dysuria Musculoskeletal: No muscle pain Skin: No rash Reviewed Test Results Reviewed Test Results Lab Laboratory Tests Test 05/07/21 18:45 05/07/21 20:11 05/07/21 20:20 05/08/21 05:40 Range/Units White Blood Count 8.5 6.9 4.3-11.0 10^3/uL Red Blood Count 4.16 L 4.09 L 4.30-5.52 10^6/uL Hemoglobin 11.8 L 11.6 L 13.3-17.7 g/dL Hematocrit 38 L 36 L 40-54 % Mean Corpuscular Volume 91 89 80-99 fL Mean Corpuscular Hemoglobin 28 28 25-34 pg Mean Corpuscular Hemoglobin Concent 31 L 32 32-36 g/dL Red Cell Distribution Width 13.3 13.2 10.0-14.5 % Platelet Count 250 243 130-400 10^3/uL Mean Platelet Volume 9.6 9.8 9.0-12.2 fL Immature Granulocyte % (Auto) 1 1 % Neutrophils (%) (Auto) 76 H 89 H 42-75 % Lymphocytes (%) (Auto) 9 L 8 L 12-44 % Monocytes (%) (Auto) 11 2 0-12 % Eosinophils (%) (Auto) 3 0 0-10 % Basophils (%) (Auto) 1 0 0-10 % Neutrophils # (Auto) 6.5 6.2 1.8-7.8 10^3/uL Lymphocytes # (Auto) 0.7 L 0.6 L 1.0-4.0 10^3/uL Monocytes # (Auto) 0.9 0.1 0.0-1.0 10^3/uL Eosinophils # (Auto) 0.3 0.0 0.0-0.3 10^3/uL Basophils # (Auto) 0.0 0.0 0.0-0.1 10^3/uL Immature Granulocyte # (Auto) 0.1 0.1 0.0-0.1 10^3/uL Erythrocyte Sedimentation Rate 48 H 0-30 MM/HR Prothrombin Time 14.7 12.2-14.7 SEC INR Comment 1.1 0.8-1.4 Activated Partial Thromboplast Time 36 H 24-35 SEC D-Dimer 0.92 H 0.00-0.49 UG/ML Blood Gas Puncture Site LEFT RADIAL R RADIAL Blood Gas Patient Temperature 37.0 37 Arterial Blood pH 7.35 L 7.37 7.37-7.43 Arterial Blood Partial Pressure CO2 52 H 54 H 35-45 MMHG Arterial Blood Partial Pressure O2 371 H 101 H 79-93 MMHG Arterial Blood HCO3 28 H 30 H 23-27 MMOL/L Arterial Blood Total CO2 29.4 31.6 H 21.0-31.0 MMOL/L Arterial Blood Oxygen Saturation 100 96 94-100 % Arterial Blood Base Excess 2.7 H 4.8 H -2.5-2.5 MMOL/L Ramsey Test POSITIVE YES-POS Blood Gas Ventilator Setting NO NO Blood Gas Inspired Oxygen 50% BIPAP 50% BIPAP Sodium Level 138 139 135-145 MMOL/L Potassium Level 3.4 L 4.0 3.6-5.0 MMOL/L Chloride Level 100 101 98-107 MMOL/L Carbon Dioxide Level 28 27 21-32 MMOL/L Anion Gap 10 11 5-14 MMOL/L Blood Urea Nitrogen 19 H 20 H 7-18 MG/DL Creatinine 0.95 0.78 0.60-1.30 MG/DL Estimat Glomerular Filtration Rate 77 97 BUN/Creatinine Ratio 20 26 Glucose Level 116 H 141 H 70-105 MG/DL Lactic Acid Level 1.72 0.50-2.00 MMOL/L Calcium Level 8.9 8.8 8.5-10.1 MG/DL Corrected Calcium 9.3 8.5-10.1 MG/DL Magnesium Level 1.9 2.1 1.6-2.4 MG/DL Total Bilirubin 0.2 0.1-1.0 MG/DL Aspartate Amino Transf (AST/SGOT) 36 H 5-34 U/L Alanine Aminotransferase (ALT/SGPT) 34 0-55 U/L Alkaline Phosphatase 143 H 40-136 U/L Total Creatine Kinase 72 30-200 U/L Creatine Kinase MB 1.6 <6.6 NG/ML Myoglobin 59.4 10.0-92.0 NG/ML Troponin I < 0.028 <0.028 NG/ML C-Reactive Protein High Sensitivity 7.72 H 0.00-0.50 MG/DL B-Type Natriuretic Peptide 85.3 <100.0 PG/ML Total Protein 6.8 6.4-8.2 GM/DL Albumin 3.5 3.2-4.5 GM/DL Procalcitonin 0.04 <0.10 NG/ML Influenza Type A (RT-PCR) Not Detected Not Detecte Influenza Type B (RT-PCR) Not Detected Not Detecte SARS-CoV-2 RNA (RT-PCR) Not Detected Not Detecte Urine Color YELLOW Urine Clarity CLEAR Urine pH 6.0 5-9 Urine Specific [place] 1.015 L 1.016-1.022 Urine Protein NEGATIVE NEGATIVE Urine Glucose (UA) NEGATIVE NEGATIVE Urine Ketones NEGATIVE NEGATIVE Urine Nitrite NEGATIVE NEGATIVE Urine Bilirubin NEGATIVE NEGATIVE Urine Urobilinogen 0.2 < = 1.0 MG/DL Urine Leukocyte Esterase NEGATIVE NEGATIVE Urine RBC (Auto) NEGATIVE NEGATIVE Urine RBC RARE /HPF Urine WBC NONE /HPF Urine Squamous Epithelial Cells NONE /HPF Urine Renal Epithelial Cells NONE /HPF Urine Crystals NONE /LPF Urine Bacteria NEGATIVE /HPF Urine Casts NONE /LPF Urine Mucus NEGATIVE /LPF Urine Culture Indicated CULTURE PENDING Neutrophils % (Manual) 90 % Lymphocytes % (Manual) 8 % Monocytes % (Manual) 2 % Radiology CXR 05/07/21: IMPRESSION: Bilateral pulmonary infiltrates suspect for atypical pneumonia possibly COVID. Recommend clinical correlation. Cardiomegaly and some questionable central pulmonary venous congestion. CTA chest 05/07/21: IMPRESSION: Bilateral groundglass infiltrates suspect for atypical pneumonia likely COVID. There is also small left pleural effusion. No evidence of pulmonary embolism, aortic dissection or aneurysm Pericardial effusion. Unchanged small right adrenal nodule. Physical Exam-([facility]) Physical Exam Vital Signs VS - Last 72 Hours, by Label 05/07/21 05/07/21 05/07/21/18/21 18:30 18:56 21:19 21:20 Temp 37.0 36.2 Pulse 96 98 91 78 Resp 34 27 22 24 B/P (MAP) 184/124 (144) 117/91 131/108 Pulse Ox 100 100 99 94 O2 Delivery NIV Bilevel NIV Bilevel NIV Bilevel O2 Flow Rate 50.00 25.00 05/07/21 05/07/21 05/07/21 05/07/21 21:30 21:30 21:34 21:45 Pulse 97 92 85 Resp 19 17 B/P (MAP) 123/87 126/83 Pulse Ox 95 94 95 O2 Delivery NIV Bilevel NIV Bilevel NIV Bilevel O2 Flow Rate 25.00 25.00 FiO2 25 05/07/21 05/07/21 05/07/21 05/07/21 22:00 22:30 22:41 22:42 Temp 37.0 Pulse 76 61 78 Resp 24 14 B/P (MAP) 113/73 111/74 Pulse Ox 96 94 94 94 O2 Delivery NIV Bilevel NIV Bilevel O2 Flow Rate 25.00 25.00 25.00 FiO2 25 05/07/21 05/08/21 05/08/21 05/08/21 23:00 00:00 00:06 00:23 Temp 36.6 Pulse 75 58 Resp 15 25 B/P (MAP) 111/70 128/86 Pulse Ox 94 93 94 O2 Delivery NIV Bilevel NIV Bilevel NIV Bilevel NIV Bilevel O2 Flow Rate 25.00 25.00 25.00 FiO2 25 05/08/21 05/08/21 05/08/21 05/08/21 01:00 01:00 02:00 03:00 Pulse 64 63 62 54 Resp 14 15 12 B/P (MAP) 135/93 122/79 114/72 Pulse Ox 95 96 96 O2 Delivery NIV Bilevel NIV Bilevel NIV Bilevel O2 Flow Rate 25.00 25.00 25.00 05/08/21 05/08/21 05/08/21 05/08/21 03:24 04:00 04:00 05:00 Pulse 55 52 Resp 61 15 15 B/P (MAP) 123/87 140/87 Pulse Ox 96 94 94 97 O2 Delivery NIV Bilevel NIV Bilevel NIV Bilevel O2 Flow Rate 25.00 25.00 25.00 FiO2 25 05/08/21 05/08/21 05/08/21 05/08/21 05:11 06:00 07:00 07:00 Temp 36.4 Pulse 79 79 70 Resp 20 16 B/P (MAP) 160/92 155/94 Pulse Ox 98 96 O2 Delivery NIV Bilevel NIV Bilevel NIV Bilevel O2 Flow Rate 25.00 25.00 25.00 05/08/21 05/08/21 05/08/21 05/08/21 07:35 08:00 08:00 09:00 Pulse 81 100 Resp 16 20 B/P (MAP) 162/102 152/94 Pulse Ox 96 95 97 98 O2 Delivery High Flow N/C NIV Bilevel NIV Bilevel NIV Bilevel O2 Flow Rate 3.00 25.00 25.00 FiO2 30 05/08/21 05/08/21 10:00 11:00 Pulse 95 98 Resp 18 22 B/P (MAP) 138/91 Pulse Ox 99 93 O2 Delivery NIV Bilevel NIV Bilevel O2 Flow Rate 25.00 25.00 Capillary Refill : Less Than 3 Seconds General Appearance: WD/WN, mild distress Respiratory: rhonchi Cardiovascular: tachycardia Gastrointestinal: normal bowel sounds, non tender, soft Extremities: pedal edema (2+ in bilateral lower legs) Neurologic/Psychiatric: alert, normal mood/affect, oriented x 3 Skin: normal color, warm/dry Assessment/Plan Assessment/Plan Admission Status: Inpatient Order (span 2 midnights) Reason for Inpatient Admission: Pneumonia requiring bipap with multiple comorbidities (1) Acute on chronic respiratory failure Status: Acute Assessment & Plan: Started on bipap in ER, improved. Suspect multifactorial, pneumonia as above, possible CHF component, but BNP normal, received IV lasix in ER, will resume home lasix and bumex. Echocardiogram in 09/2020 without significant CHF, will repeat. Qualifiers: Qualified Codes: J96.21 - Acute and chronic respiratory failure with hypoxia; J96.22 - Acute and chronic respiratory failure with hypercapnia (2) Bilateral pneumonia Status: Acute Assessment & Plan: Azithromycin and ceftriaxone. COVID19 negative (PCR) on outpatient and 05/07 in ER. Send out for COVID19 pending due to concerning appearance on CT. (3) Pericardial effusion Status: Chronic Assessment & Plan: Noted on CTA 05/07, was also present on echo in 09/2020, repeat echo pending. (4) BPH (benign prostatic hyperplasia) Assessment & Plan: Resume home medications. (5) Hyperlipidemia Status: Chronic Assessment & Plan: Resume home statin. (6) Depression Status: Chronic Assessment & Plan: Resume home medications. (7) History of DVT (deep vein thrombosis) Status: Chronic (8) Dementia Status: Chronic Assessment & Plan: Alert and oriented x 3, holding home donepezil due to QT prolongation risk with other meds at this time. Qualifiers: (9) Dependent edema Status: Acute Assessment & Plan: Review of clinic chart, this started as early as February, he had Bumex added to lasix. Echo pending, resume home diuretics. Consider US legs given history of DVT. (10) HTN (hypertension) Status: Chronic (11) DVT prophylaxis Status: Acute Assessment & Plan: Resume home apixaban. TANVI CHENG MD May 08, 2021 09:12
[2021-05-08] MEDS ORDERED: FAMO20TA3 PO (11:30)
[2021-05-08] MEDS ORDERED: BUME1TAB8 PO (11:30)
[2021-05-08] MEDS ORDERED: DONE10TA41 PO (11:30)
[2021-05-08] MEDS ORDERED: ONDANSETRON 4 MG/2 ML (SDV) Z0FRAN ONE (15:05)
[2021-05-08] MEDS ORDERED: ONDANSETRON 4 MG/2 ML (SDV) Z0FRAN IVP PRN ×2 (15:15)
[2021-05-08] MEDS: MEMANTINE 10 MG (NAMENDA) TABLET PO SCH (20:58)
[2021-05-08] MEDS: APIXABAN 2.5 MG (ELIQUIS) TABLET PO SCH (20:58)
[2021-05-08] MEDS: cefTRIAXone 1 GM PRE-MIX 50 ML IV SCH (20:59)
[2021-05-08] MEDS: AZITHROMYCIN INJECTION 500 MG in NS (IVPB) 250 ML IV SCH (20:59)
[2021-05-09] MEDS: RT-ALBUTEROL HFA 8.5 GM INHALER IH SCH ×6 (02:22→22:32)
[2021-05-09 06:52] LABS: HEMATOCRIT 35 % (40-54); HEMOGLOBIN 11.1 g/dL (13.3-17.7); MEAN CORPUSCULAR HEMOGLOBIN 29 pg (25-34); MEAN CORPUSCULAR HGB CONC 32 g/dL (32-36); MEAN CORPUSCULAR VOLUME 90 fL (80-99); MEAN PLATELET VOLUME 9.5 fL (9.0-12.2); PLATELET COUNT 263 10^3/uL (130-400); WHITE BLOOD COUNT 9.7 10^3/uL (4.3-11.0)
[2021-05-09 07:21] LABS: CALCIUM 8.8 MG/DL (8.5-10.1); CREATININE SERUM 0.76 MG/DL (0.60-1.30); POTASSIUM 3.5 MMOL/L (3.6-5.0)
[2021-05-09] MEDS: MEMANTINE 10 MG (NAMENDA) TABLET PO SCH ×2 (08:30→20:44)
[2021-05-09] MEDS: DULoxetine 30 MG (CYMBALTA) CAP PO SCH (08:30)
[2021-05-09] MEDS: BUMETANIDE 1 MG (BUMEX) TAB PO SCH (08:31)
[2021-05-09] MEDS: SIMvastatin 20 MG (ZOCOR) TAB PO SCH (08:31)
[2021-05-09] MEDS: FUROSEMIDE 20 MG (LASIX) TAB PO SCH (08:31)
[2021-05-09] MEDS: ASPIRIN E.C. 81 MG (ECOTRIN) TAB PO SCH (08:31)
[2021-05-09] MEDS: FAMOTIDINE 20 MG (PEPCID) TABLET PO SCH (08:32)
[2021-05-09] MEDS: TAMSULOSIN 0.4 MG (FLOMAX) CAP PO SCH (08:32)
[2021-05-09] MEDS: APIXABAN 2.5 MG (ELIQUIS) TABLET PO SCH ×2 (08:32→20:44)
[2021-05-09] MEDS: FINASTERIDE (PROSCAR) 5 MG TAB PO SCH (08:32)
[2021-05-09] MEDS ORDERED: traZODone 150 MG (DESYREL) TABLET PO SCH (09:00)
--- NOTE | 2021-05-09 09:16 | Progress Note - Hospitalist ---
Subjective HPI/CC On Admission Date Seen by Provider: May 09, 2021 Time Seen by Provider: 10:00 Subjective/Events-last exam Pt doing a little better Remains in isolation until PCR comes back All home meds were restarted PT and OT will be restarted May be an inpatient rehab candidate but he really wants to go home so I doubt he will agree Pt has Parkinsonian tremor Review of Systems General: Fatigue, Malaise Pulmonary: Dyspnea Focused Exam Lactate Level 05/07/21 18:45: Lactic Acid Level 1.72 Time of Focused Exam: 19:30 Objective Exam Vital Signs Vital Signs Date Time Temp Pulse Resp B/P (MAP) Pulse Ox O2 Delivery O2 Flow Rate FiO2 05/10/21 04:24 36.6 80 21 150/91 97 Nasal Cannula 2.00 05/08/21 12:00 Capillary Refill : Less Than 3 Seconds General Appearance: No Apparent Distress, WD/WN, Chronically ill, Obese Respiratory: No Accessory Muscle Use, No Respiratory Distress, Decreased Breath Sounds Cardiovascular: Regular Rate, Rhythm Neurologic/Psychiatric: Alert, Oriented x3, Depressed Affect, Other (Tremor noted) Results/Procedures Lab Laboratory Tests 05/09/21 05:40 Patient resulted labs reviewed. Assessment/Plan Assessment and Plan Assess & Plan/Chief Complaint (1) Acute on chronic respiratory failure Status: Acute Assessment & Plan: Started on bipap in ER, improved. Suspect multifactorial, pneumonia as above, possible CHF component, but BNP normal, received IV lasix in ER, will resume home lasix and bumex. Echocardiogram in 09/2020 without significant CHF, will repeat. Qualifiers: Qualified Codes: J96.21 - Acute and chronic respiratory failure with hypo greg; J96.22 - Acute and chronic respiratory failure with hypercapnia (2) Bilateral pneumonia Status: Acute Assessment & Plan: Azithromycin and ceftriaxone. COVID19 negative (PCR) on 05/06 outpatient and 05/07 in ER. Send out for COVID19 pending due to concerning appearance on CT. (3) Pericardial effusion Status: Chronic Assessment & Plan: Noted on CTA 05/07, was also present on echo in 09/2020, repeat echo pending. (4) BPH (benign prostatic hyperplasia) Assessment & Plan: Resume home medications. (5) Hyperlipidemia Status: Chronic Assessment & Plan: Resume home statin. (6) Depression Status: Chronic Assessment & Plan: Resume home medications. (7) History of DVT (deep vein thrombosis) Status: Chronic (8) Dementia Status: Chronic Assessment & Plan: Alert and oriented x 3, holding home donepezil due to QT prolongation risk with other meds at this time. Qualifiers: (9) Dependent edema Status: Acute Assessment & Plan: Review of clinic chart, this started as early as February, he had Bumex added to lasix. Echo pending, resume home diuretics. Consider US legs given history of DVT. (10) HTN (hypertension) Status: Chronic (11) DVT prophylaxis Status: Acute Assessment & Plan: Resume home apixaban. Take isolation since PCR is negative IV antibiotics Home meds PT and OT Inpatient rehab? TOMMY RUELAS DO May 09, 2021 09:16
[2021-05-09] MEDS ORDERED: DULO60CA59 PO (12:30)
[2021-05-09] MEDS ORDERED: TMSL.4C PO (12:33)
[2021-05-09] MEDS ORDERED: FURO40TA4 PO (12:33)
[2021-05-09] MEDS ORDERED: OMG1KC PO (12:35)
--- NOTE | 2021-05-09 14:51 | Physical Therapy Evaluation ---
PT Evaluation-General Medical Diagnosis Admission Date May 07, 2021 at 20:24 Medical Diagnosis: resp. failure, pneumonia Onset Date: May 07, 2021 Therapy Diagnosis Therapy Diagnosis: impaired mobility, strength, endurance Height/Weight Height (Feet): 5 Height (Inches): 6.00 Weight (Pounds): 201 Weight (Ounces): 0.8 Precautions Precautions/Isolations: Airborne Isolation, Contact Isolation, Droplet Isolation, Fall Prevention, Standard Precautions Referral Physician: Hilda Mccarthy DO Reason for Referral: Evaluation/Treatment Medical History Additional Medical History Past Medical History 1. Alzheimer's Dementia - without behavioral disturbances 2. History of RLE DVT post leg fracture 2007 3. 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 Hypertension 5. Hyperlipidemia 6. Chronic constipation 7. Benign Prostatic Hypertrophy with obstructive symptoms 8. Hydrocele left without surgical indication per urology 9. Anxiety 10. Tubular Adenoma resected per Colonoscopy 2012 11. COPD Past Surgical History 1. Colonoscopy 2012 2. Left inguinal hernia repair with mesh 2012 Jagjit 3. Left hip replacement 07/2020 Reviewed History: Yes Social History Home: Single Level Current Living Status: Spouse Entry Into Home: Ramp Prior Prior Level of Function SCALE: Activities may be completed with or without assistive devices. 7-Kldeprepwx-lijbpat completes the activity by him/herself with no assistance from a helper. 5-Set-up or Clean-up Assistance-helper sets up or cleans up; patient completes activity. [place] assists only prior to or following the activity. 4-Supervision or Touching Assistance-helper provides verbal cues and/or touching/steadying and/or contact guard assistance as patient completes activity. Assistance may be provided throughout the activity or intermittently. 3-Partial/Moderate Assistance-helper does LESS THAN HALF the effort. [place] lifts, holds or supports trunk or limbs, but provides less than half the effort. 2-Substantial/Maximal Assistance-helper does MORE THAN HALF the effort. [place] lifts or holds trunk or limbs and provides more than half the effort. 2-Nmdwzgtvn-dgtegn does ALL the effort. Patient does none of the effort to comp lete the activity. Or, the assistance of 2 or more helpers is required for the patient to complete the activity. If activity was not attempted, code reason: 7-Patient Refused. 9-Not Applicable-not attempted and the patient did not perform the activity before the current illness, exacerbation or injury. 10-Not Attempted due to Environmental Limitations-(lack of equipment, weather restraints, etc.). 88-Not Attempted due to Medical Conditions or Safety Concerns. Bed Mobility: 6 Transfers (B,C,W/C): 6 Wheelchair Mobility: 6 Prior Devices Use: Motorized scooter PT Evaluation-Current Subjective Patient in bed pre tx, agrees to PT, has no complaints of pain. Pt/Family Goals to go home with his Objective Patient Orientation: Person, Confused, Place Attachments: Oxygen, Goss Catheter ROM/Strength ROM Lower Extremities limited due to BLE edema Strength Lower Extremities 4/5 BLE grossly Sensory Hearing: Functional Sensation Right Lower Extremit: Impaired Sensation Left Lower Extremity: Impaired Transfers Sit to Lying (QC): 4 Lying to Sitting/Side of Bed(Q: 4 Sit to Stand (QC): 4 Chair/Owe-lu-Xvqum Xfer(QC): 4 CGA for sit to stand and transfers Gait Does the Patient Walk?: Yes Mode of Locomotion: Walk Anticipated Mode of Locomotion: Walk Walk 10 feet (QC): 4 Distance: 20' Gait Assistive Device: Cane Small Base Quad Comments/Gait Description Patient ambulates with his own quad cane, he is unsteady but doesn't have a christiano LOB, also tends to hold onto the counters/furniture to keep balance. He would benefit from using a rolling walker. Balance Sitting Static: Normal Sitting Dynamic: Normal Standing Static: Fair Standing Dynamic: Poor Treatment BLE supine exercises x20 (AP, QS, GS) Assessment/Needs Patient in bed post tx with nurse call, phone, tray, all needs met, bed alarm on. Patient has impaired mobility, strength, endurance. CGA for transfers and ambulation but he is very unsteady. Rehab Potential: Fair PT Group Home Goals Rock Drill Operator Goals PT Rock Drill Operator Goals Time Frame: May 30, 2021 Roll Left & Right (QC): 6 Sit to Lying (QC): 6 Lying-Sitting on Side/Bed(QC): 6 Sit to Stand (QC): 4 (SBA) Chair/Pcl-gt-Nywqn Xfer(QC): 4 (SBA) Walk 10 feet (QC): 4 (CGA) Walk 50ft with 2 Turns (QC): 4 (CGA) PT Plan Problem List Problem List: Activity Tolerance, Functional Strength, Safety, Balance, Gait, Transfer, Bed Mobility, ROM Treatment/Plan Treatment Plan: Continue Plan of Care Treatment Plan: Bed Mobility, Education, Functional Activity Randy, Functional Strength, Gait, Safety, Therapeutic Exercise, Transfers Treatment Duration: May 16, 2021 Frequency: 6 times per week Estimated Hrs Per Day: .25 hour per day Patient and/or Family Agrees t: Yes Safety Risks/Education Patient Education: Gait Training, Transfer Techniques, Correct Positioning, S afety Issues Teaching Recipient: Patient Teaching Methods: Demonstration, Discussion Response to Teaching: Reinforcement Needed Discharge Recommendations Plan Patient will perform bed mobility and transfer training, balance and endurance training, functional strengthening, stair training, gait training, and education, to improve functional mobility and independence at home. Therapy Discharge Recommendati: Scheduled Assistance, Home & Family, Post Acute PT Time/GCodes Time In: 1427 Time Out: 1442 Total Billed Treatment Time: 15 Total Billed Treatment 1 visit ELSI SLATER PT May 09, 2021 14:51
--- NOTE | 2021-05-09 15:30 | Occupational Therapy Eval ---
OT Evaluation-General/PLF Medical Diagnosis Admission Date May 07, 2021 at 20:24 Medical Diagnosis: resp. failure, pneumonia Onset Date: May 07, 2021 Therapy Diagnosis Therapy Diagnosis: decreased ADL status. Height/Weight Height (Feet): 5 Height (Inches): 6.00 Weight (Pounds): 201 Weight (Ounces): 0.8 Precautions Precautions/Isolations: Airborne Isolation, Contact Isolation, Droplet Isolation, Fall Prevention, Standard Precautions Referral Physician: Hilda Mccarthy DO Referral Reason: Evaluation/Treatment Medical History Additional Medical History Alzheimers, DVT, TIAs, HTN, hyperlipidemia, chronic constipation, BPH, COPD, anxiety. Current History ED due to SOB and cough x1 week. Social History Home: Single Level Current Living Status: Spouse Entry Into Home: Ramp ADL-Prior Level of Function SCALE: Activities may be completed with or without assistive devices. 3-Xcivialkoy-obqytku completes the activity by him/herself with no assistance from a helper. 5-Set-up or Clean-up Assistance-helper sets up or cleans up; patient completes activity. [place] assists only prior to or following the activity. 4-Supervision or Touching Assistance-helper provides verbal cues and/or touching/steadying and/or contact guard assistance as patient completes activity. Assistance may be provided throughout the activity or intermittently. 3-Partial/Moderate Assistance-helper does LESS THAN HALF the effort. [place] lifts, holds or supports trunk or limbs, but provides less than half the effort. 2-Substantial/Maximal Assistance-helper does MORE THAN HALF the effort. [place] lifts or holds trunk or limbs and provides more than half the effort. 0-Maqoaivpe-excply does ALL the effort. Patient does none of the effort to complete the activity. Or, the assistance of 2 or more helpers is required for the patient to complete the activity. If activity was not attempted, code reason: 7-Patient Refused. 9-Not Applicable-not attempted and the patient did not perform the activity before the current illness, exacerbation or injury. 10-Not Attempted due to Environmental Limitations-(lack of equipment, weather restraints, etc.). 88-Not Attempted due to Medical Conditions or Safety Concerns. ADL PLOF Comments Pt reports requiring assistance with all ADLs at PLOF, he uses a quad cane for mobility. Pt's assists with dressing, showering (washing LEs), and assist with hygiene for toileting (pt able to manage pants up/down). Pt does not complete full showers, instead completes sponge baths. Self Care: Needed Some Help OT Current Status Subjective Pt seated EOB, states he just got off the phone with his who is on her way. Pt tested negative for COVID and is no longer on precautions per nursing staff and per pt. Mental Status/Objective Patient Orientation: Person, Place, Situation Attachments: Goss Catheter, Oxygen Current Upper Extremity ROM WFL, BUE shoulder flexion to approx 90 degrees Upper Extremity Coordination WFL Upper Extremity Sensation WFL Upper Extremity Strength grossly 3/5 ADL-Treatment Eating (QC): 6 (Per pt report.) Oral Hygiene (QC): 4 (SBA, pt required min cues.) Toileting Hygiene (QC): 1 (catheter) Other Treatments Pt seated EOB, agreeable to OT tx. Pt provided information about PLOF and home set up, and participated in UE screen. Pt agreeable to oral care, pt completed task seated EOB, min verbal cues with task. Post tx, pt up EOB, call light in reach and all need met. Education OT Patient Education: Correct positioning, Energy conservation, Modified ADL techniques, Progress toward Goal/Update tx plan, Purpose of tx/functional activities, Rehab process Teaching Recipient: Patient Teaching Methods: Discussion Response to Teaching: Verbalize Understanding OT Jail Goals Jail Goals Time Frame: May 20, 2021 Eating (QC): 6 Oral Hygiene (QC): 5 Toileting Hygiene (QC): 3 Shower/Bathe Self (QC): 3 Upper Body Dressing (QC): 3 Lower Body Dressing (QC): 2 Additional Goals: 1-Demonstrate ADL Tasks, 2-Verbalize Understanding, 3-ImproveStrength/Randy 1=Demonstrate adherence to instructed precautions during ADL tasks. 2=Patient will verbalize/demonstrate understanding of assistive devices/modifications for ADL. 3=Patient will improve strength/tolerance for activity to enable patient to perform ADL's. OT Education/Plan Problem List/Assessment Assessment: Decreased Activ Tolerance, Decreased UE Strength, Impaired Funct Balance, Impaired I ADL's, Impaired Self-Care Skills Pt would benefit for short term skilled OT services in order to increase independence with ADLs to decrease caregiver burden. Discharge Recommendations Plan/Recommendations: Continue POC Therapy Discharge Recommendati: Home & Family Treatment Plan/Plan of Care Patient would benefit from OT for education, treatment and training to promote independence in ADL's, mobility, safety and/or upper extremity function for ADL's. Plan of Care: ADL Retraining, Functional Mobility, UE Funct Exercise/Act Treatment Duration: May 20, 2021 Frequency: 3 times per week (3-5 times per week) Rehab Potential: Guarded Time/GCodes Start Time: 15:05 Stop Time: 15:15 Total Time Billed (hr/min): 10 Billed Treatment Time 1, DAVID WITT OT May 09, 2021 15:30
[2021-05-09] MEDS: AZITHROMYCIN INJECTION 500 MG in NS (IVPB) 250 ML IV SCH (20:44)
[2021-05-09] MEDS: cefTRIAXone 1 GM PRE-MIX 50 ML IV SCH (20:44)
[2021-05-09] MEDS: traZODone 150 MG (DESYREL) TABLET PO SCH (20:44)
[2021-05-09] MEDS ORDERED: MELATONIN 3 MG TABLET PO PRN (21:15)
[2021-05-09] MEDS ORDERED: diphenhydrAMINE 25 MG TAB (BENADRYL) PO PRN (21:15)
[2021-05-09] MEDS ORDERED: CALCIUM CARBONATE 500 MG (TUMS) TAB.CHEW PO PRN (21:15)
[2021-05-09] MEDS ORDERED: HYDROcodone/APAP 5 MG/325 MG (LORTAB) TAB PO PRN (21:15)
[2021-05-09] MEDS ORDERED: LOPERAMIDE 2 MG (IMODIUM) TABLET PO PRN (21:15)
[2021-05-09] MEDS ORDERED: DOCUSATE SODIUM 100 MG (COLACE) CAP PO PRN (21:15)
[2021-05-09] MEDS ORDERED: ONDANSETRON 4 MG/2 ML (SDV) Z0FRAN IVP PRN (21:15)
[2021-05-09] MEDS ORDERED: ALPRAZolam 0.25 MG (XANAX) TAB PO PRN (21:15)
[2021-05-09] MEDS ORDERED: ACETAMINOPHEN 325 MG TABLET PO PRN (23:30)
[2021-05-10] MEDS: RT-ALBUTEROL HFA 8.5 GM INHALER IH SCH ×6 (02:39→21:47)
[2021-05-10 06:23] LABS: BASOPHILS % (AUTO) 1 % (0-10); EOSINOPHILS # (AUTO) 0.4 10^3/uL (0.0-0.3); EOSINOPHILS % (AUTO) 6 % (0-10); HEMATOCRIT 35 % (40-54); LYMPHOCYTES # (AUTO) 1.1 10^3/uL (1.0-4.0); LYMPHOCYTES % (AUTO) 14 % (12-44); MEAN CORPUSCULAR HEMOGLOBIN 29 pg (25-34); MEAN CORPUSCULAR HGB CONC 32 g/dL (32-36); MEAN CORPUSCULAR VOLUME 90 fL (80-99); MEAN PLATELET VOLUME 8.9 fL (9.0-12.2); MONOCYTES # (AUTO) 0.9 10^3/uL (0.0-1.0); MONOCYTES % (AUTO) 12 % (0-12); NEUTROPHILS % (AUTO) 67 % (42-75); PLATELET COUNT 222 10^3/uL (130-400); WHITE BLOOD COUNT 7.4 10^3/uL (4.3-11.0)
[2021-05-10 06:33] LABS: ALBUMIN 3.1 GM/DL (3.2-4.5); POTASSIUM 3.7 MMOL/L (3.6-5.0)
[2021-05-10 06:34] LABS: CALCIUM 8.6 MG/DL (8.5-10.1)
[2021-05-10 06:36] LABS: TOTAL PROTEIN 5.8 GM/DL (6.4-8.2)
[2021-05-10 06:38] LABS: BILIRUBIN,TOTAL 0.2 MG/DL (0.1-1.0)
[2021-05-10 06:39] LABS: CREATININE SERUM 0.78 MG/DL (0.60-1.30)
--- NOTE | 2021-05-10 07:04 | Diagnostic Imaging Report ---
INDICATION: Pneumonia COMPARISON: 05/07/2021 FINDINGS: Single view of the chest demonstrates unchanged bilateral pulmonary infiltrates. The heart remains prominent. There is no pneumothorax or large effusion. The osseous structures are stable. IMPRESSION: Unchanged aeration. Dictated by: Dictated on workstation # [id number]
[2021-05-10] MEDS: DULoxetine 30 MG (CYMBALTA) CAP PO SCH ×2 (10:01→10:03)
[2021-05-10] MEDS: MEMANTINE 10 MG (NAMENDA) TABLET PO SCH ×2 (10:02→20:10)
[2021-05-10] MEDS: SENNA W/DOCUSATE (SENOKOT S) TABLET PO SCH ×2 (10:02→20:10)
[2021-05-10] MEDS: TAMSULOSIN 0.4 MG (FLOMAX) CAP PO SCH (10:02)
[2021-05-10] MEDS: ASPIRIN E.C. 81 MG (ECOTRIN) TAB PO SCH (10:02)
[2021-05-10] MEDS: SIMvastatin 20 MG (ZOCOR) TAB PO SCH (10:02)
[2021-05-10] MEDS: BUMETANIDE 1 MG (BUMEX) TAB PO SCH (10:02)
[2021-05-10] MEDS: DOCUSATE SODIUM 100 MG (COLACE) CAP PO SCH (10:02)
[2021-05-10] MEDS: FUROSEMIDE 20 MG (LASIX) TAB PO SCH (10:02)
[2021-05-10] MEDS: polyethylene glycoL POWDER 17 GM (MIRALAX) PACK PO SCH ×2 (10:03→20:10)
[2021-05-10] MEDS: APIXABAN 2.5 MG (ELIQUIS) TABLET PO SCH ×2 (10:03→20:10)
[2021-05-10] MEDS: FINASTERIDE (PROSCAR) 5 MG TAB PO SCH (10:03)
[2021-05-10] MEDS: FAMOTIDINE 20 MG (PEPCID) TABLET PO SCH (10:03)
--- NOTE | 2021-05-10 10:55 | Occupational Ther Daily Note ---
OT Current Status-Daily Note Subjective Pt alert, sitting in recliner. present in room. Pt agrees to therapy. Mental Status/Objective Patient Orientation: Person, Place, Time, Situation Attachments: Goss Catheter, IV, Oxygen (1L at rest 2L with activity) ADL-Treatment Therapy Code Descriptions/Definitions Functional [place] Measure: 0=Not Assessed/NA 4=Minimal Assistance 1=Total Assistance 5=Supervision or Setup 2=Maximal Assistance 6=Modified [place] 3=Moderate Assistance 7=Complete IndependenceSCALE: Activities may be completed with or without assistive devices. 3-Kkdpewehrt-spryfut completes the activity by him/herself with no assistance from a helper. 5-Set-up or Clean-up Assistance-helper sets up or cleans up; patient completes activity. [place] assists only prior to or following the activity. 4-Supervision or Touching Assistance-helper provides verbal cues and/or touching/steadying and/or contact guard assistance as patient completes activity. Assistance may be provided throughout the activity or intermittently. 3-Partial/Moderate Assistance-helper does LESS THAN HALF the effort. [place] lifts, holds or supports trunk or limbs, but provides less than half the effort. 2-Substantial/Maximal Assistance-helper does MORE THAN HALF the effort. [place] lifts or holds trunk or limbs and provides more than half the effort. 9-Fziacieej-vboubm does ALL the effort. Patient does none of the effort to complete the activity. Or, the assistance of 2 or more helpers is required for the patient to complete the activity. If activity was not attempted, code reason: 7-Patient Refused. 9-Not Applicable-not attempted and the patient did not perform the activity before the current illness, exacerbation or injury. 10-Not Attempted due to Environmental Limitations-(lack of equipment, weather restraints, etc.). 88-Not Attempted due to Medical Conditions or Safety Concerns. Other Treatment Pt given light resistance theraband and HEP for use in room. Respiratory in room and requests to complete O2 study. Sit <--> stand independent. Pt ambulated using quadcane with CGA for safety. No LOB though had shuffling gait and stooped posture, ~25' ambulation before rest break required. After session, pt sitting in recliner with call light/phone in reach. All needs met in room. OT Snf Goals Snf Goals Time Frame: May 20, 2021 Eating (QC): 6 Oral Hygiene (QC): 5 Toileting Hygiene (QC): 3 Shower/Bathe Self (QC): 3 Upper Body Dressing (QC): 3 Lower Body Dressing (QC): 2 Additional Goals: 1-Demonstrate ADL Tasks, 2-Verbalize Understanding, 3- ImproveStrength/Randy 1=Demonstrate adherence to instructed precautions during ADL tasks. 2=Patient will verbalize/demonstrate understanding of assistive devices/modifications for ADL. 3=Patient will improve strength/tolerance for activity to enable patient to perform ADL's. OT Education/Plan Problem List/Assessment Assessment: Decreased Activ Tolerance, Decreased UE Strength, Impaired Self- Care Skills Pt would benefit for short term skilled OT services in order to increase independence with ADLs to decrease caregiver burden. Discharge Recommendations Plan/Recommendations: Continue POC Treatment Plan/Plan of Care Patient would benefit from OT for education, treatment and training to promote independence in ADL's, mobility, safety and/or upper extremity function for ADL's. Plan of Care: ADL Retraining, Functional Mobility, UE Funct Exercise/Act Treatment Duration: May 20, 2021 Frequency: 3 times per week (3-5 times per week) Rehab Potential: Guarded Time/GCodes Start Time: 10:34 Stop Time: 10:49 Total Time Billed (hr/min): 15 Billed Treatment Time 1 visit-FA 1 (15 min) DAVID XIAO May 10, 2021 10:55
--- NOTE | 2021-05-10 11:04 | Progress Note - Hospitalist ---
ALEXANDRU GODINEZ 05/10/21 1104: Subjective HPI/CC On Admission Date Seen by Provider: May 10, 2021 Time Seen by Provider: 08:30 Subjective/Events-last exam Patient feels better today. Sitting up in chair. Down to 1L O2 today. Patient said he wants to go home tomorrow or the day after. Would like to go home on oxygen if possible. Will remove greene catheter today. Patient asked for depend diapers if we do. Patient has no other complaints. Review of Systems Pulmonary: Cough Cardiovascular: No: Chest Pain, Palpitations Gastrointestinal: No: Nausea, Vomiting Focused Exam Lactate Level 05/07/21 18:45: Lactic Acid Level 1.72 Time of Focused Exam: 19:30 Objective Exam Vital Signs Vital Signs Date Time Temp Pulse Resp B/P (MAP) Pulse Ox O2 Delivery O2 Flow Rate FiO2 05/10/21 10:47 95 High Flow N/C 1.00 05/10/21 07:39 36.6 82 22 157/87 05/08/21 12:00 Capillary Refill : Less Than 3 Seconds General Appearance: No Apparent Distress, WD/WN Respiratory: Chest Non Tender, No Accessory Muscle Use, No Respiratory Distress, Wheezing (minimal lower lung johnson) Cardiovascular: Regular Rate, Rhythm, Normal Peripheral Pulses Rectal: Deferred Neurologic/Psychiatric: Alert, Oriented x3, Normal Mood/Affect Results/Procedures Lab Laboratory Tests 05/10/21 06:00 Patient resulted labs reviewed. Assessment/Plan Assessment and Plan Assess & Plan/Chief Complaint (1) Acute on chronic respiratory failure Status: Acute Assessment & Plan: Started on bipap in ER, improved. Suspect multifactorial, pneumonia as above, possible CHF component, but BNP normal, received IV lasix in ER, will resume home lasix and bumex. Echocardiogram in 09/2020 without signi ficant CHF, will repeat. Qualifiers: Qualified Codes: J96.21 - Acute and chronic respiratory failure with hypoxia; J96.22 - Acute and chronic respiratory failure with hypercapnia (2) Bilateral pneumonia Status: Acute Assessment & Plan: Azithromycin and ceftriaxone. COVID19 negative (PCR) on 05/06 outpatient and 05/07 in ER. Send out for COVID19 pending due to concerning appearance on CT. (3) Pericardial effusion Status: Chronic Assessment & Plan: Noted on CTA 05/07, was also present on echo in 09/2020, repeat echo pending. (4) BPH (benign prostatic hyperplasia) Assessment & Plan: Resume home medications. (5) Hyperlipidemia Status: Chronic Assessment & Plan: Resume home statin. (6) Depression Status: Chronic Assessment & Plan: Resume home medications. (7) History of DVT (deep vein thrombosis) Status: Chronic (8) Dementia Status: Chronic Assessment & Plan: Alert and oriented x 3, holding home donepezil due to QT prolongation risk with other meds at this time. Qualifiers: (9) Dependent edema Status: Acute Assessment & Plan: Review of clinic chart, this started as early as February, he had Bumex added to lasix. Echo pending, resume home diuretics. Consider US legs given history of DVT. (10) HTN (hypertension) Status: Chronic (11) DVT prophylaxis Status: Acute Assessment & Plan: Resume home apixaban. 05/09 Take isolation since PCR is negative IV antibiotics Home meds PT and OT Inpatient rehab? 05/10 Continue inhaler treatment D/C greene cath Home O2 evaluation PT and OT Consider going home tomorrow or the day after HILDA RUELAS DO 05/11/21 0610: Subjective Subjective/Events-last exam Pt doing a lot better Less cough Needs 1 liter of O2 continuously and 2 liters on exertion Will remove catheter and he has requested for depends diapers Checked meds and labs Review of Systems General: Fatigue, Malaise Objective Exam General Appearance: No Apparent Distress, WD/WN, Chronically ill Respiratory: Lungs Clear, Normal Breath Sounds Cardiovascular: Regular Rate, Rhythm Assessment/Plan Assessment and Plan Assess & Plan/Chief Complaint Discharge home tomorrow Back to baseline activity Supervisory-Addendum Brief Verification & Attestation Participated in pt care: history, MDM, physical Personally performed: exam, history, MDM, supervision of care Care discussed with: Medical Student Procedures: n/a Results interpretation: Verified all documentation Verification and Attestation of Medical Student E/M Service A medical student performed and documented this service in my presence. I reviewed and verified all information documented by the medical student and made modifications to such information, when appropriate. I personally performed the physical exam and medical decision making. Hilda Ruelas May 11, 2021,06:09 ALEXANDRU GODINEZ May 10, 2021 11:04 HILDA RUELAS DO May 11, 2021 06:10
--- NOTE | 2021-05-10 13:45 | Physical Therapy Daily Note ---
PT Daily Note-Current Subjective Patient in recliner pre tx, agrees to PT, has no complaints of pain. Appearance Patient in recliner post tx with nurse call, phone, tray, all needs met. Mental Status Patient Orientation: Person, Place, Situation Attachments: Oxygen, Goss Catheter Transfers SCALE: Activities may be completed with or without assistive devices. 2-Riyqyndgli-dzhfqrj completes the activity by him/herself with no assistance from a helper. 5-Set-up or Clean-up Assistance-helper sets up or cleans up; patient completes activity. [place] assists only prior to or following the activity. 4-Supervision or Touching Assistance-helper provides verbal cues and/or touching/steadying and/or contact guard assistance as patient completes a ctivity. Assistance may be provided throughout the activity or intermittently. 3-Partial/Moderate Assistance-helper does LESS THAN HALF the effort. [place] lifts, holds or supports trunk or limbs, but provides less than half the effort. 2-Substantial/Maximal Assistance-helper does MORE THAN HALF the effort. [place] lifts or holds trunk or limbs and provides more than half the effort. 8-Jgzzxnply-yerjtx does ALL the effort. Patient does none of the effort to complete the activity. Or, the assistance of 2 or more helpers is required for the patient to complete the activity. If activity was not attempted, code reason: 7-Patient Refused. 9-Not Applicable-not attempted and the patient did not perform the activity before the current illness, exacerbation or injury. 10-Not Attempted due to Environmental Limitations-(lack of equipment, weather restraints, etc.). 88-Not Attempted due to Medical Conditions or Safety Concerns. Sit to Stand (QC): 4 Patient stood with CGA but then states that his knees are not going to allow him to ambulate this afternoon, will perform LE exercise Exercises Seated Therapy Exercises: Ankle pumps, Long arc quads, Hip flexion, Hip abd/add Seated Reps: 20 Treatments LE strengthening Assessment Current Status: Poor Progress unable to ambulate this afternoon PT Production Support Consultant Goals [facility] Goals PT [facility] Goals Time Frame: May 30, 2021 Roll Left & Right (QC): 6 Sit to Lying (QC): 6 Lying-Sitting on Side/Bed(QC): 6 Sit to Stand (QC): 4 (SBA) Chair/Iae-wd-Tehhz Xfer(QC): 4 (SBA) Walk 10 feet (QC): 4 (CGA) Walk 50ft with 2 Turns (QC): 4 (CGA) PT Plan Problem List Problem List: Activity Tolerance, Functional Strength, Safety, Balance, Gait, Transfer, Bed Mobility, ROM Treatment/Plan Treatment Plan: Continue Plan of Care Treatment Plan: Bed Mobility, Education, Functional Activity Randy, Functional Strength, Gait, Safety, Therapeutic Exercise, Transfers Treatment Duration: May 16, 2021 Frequency: 6 times per week Estimated Hrs Per Day: .25 hour per day Patient and/or Family Agrees t: Yes Safety Risks/Education Patient Education: Correct Positioning, Safety Issues Teaching Recipient: Patient Teaching Methods: Demonstration, Discussion Response to Teaching: Reinforcement Needed Time/GCodes Time In: 1315 Time Out: 1325 Total Billed Treatment Time: 10 Total Billed Treatment 1 visit EX Ofe' ELSI PASCAL PT May 10, 2021 13:45
[2021-05-10] MEDS: cefTRIAXone 1 GM PRE-MIX 50 ML IV SCH (20:10)
[2021-05-10] MEDS: traZODone 150 MG (DESYREL) TABLET PO SCH (20:10)
[2021-05-10] MEDS: AZITHROMYCIN INJECTION 500 MG in NS (IVPB) 250 ML IV SCH (20:54)
[2021-05-11] MEDS: RT-ALBUTEROL HFA 8.5 GM INHALER IH SCH ×2 (02:32→07:47)
[2021-05-11 07:07] LABS: BASOPHILS % (AUTO) 1 % (0-10); EOSINOPHILS # (AUTO) 0.5 10^3/uL (0.0-0.3); EOSINOPHILS % (AUTO) 7 % (0-10); HEMATOCRIT 38 % (40-54); HEMOGLOBIN 11.9 g/dL (13.3-17.7); LYMPHOCYTES # (AUTO) 1.1 10^3/uL (1.0-4.0); LYMPHOCYTES % (AUTO) 15 % (12-44); MEAN CORPUSCULAR HEMOGLOBIN 28 pg (25-34); MEAN CORPUSCULAR HGB CONC 32 g/dL (32-36); MEAN CORPUSCULAR VOLUME 89 fL (80-99); MEAN PLATELET VOLUME 9.4 fL (9.0-12.2); MONOCYTES # (AUTO) 0.7 10^3/uL (0.0-1.0); MONOCYTES % (AUTO) 10 % (0-12); NEUTROPHILS # (AUTO) 4.8 10^3/uL (1.8-7.8); NEUTROPHILS % (AUTO) 67 % (42-75); PLATELET COUNT 261 10^3/uL (130-400); WHITE BLOOD COUNT 7.2 10^3/uL (4.3-11.0)
[2021-05-11 07:39] LABS: ALBUMIN 3.4 GM/DL (3.2-4.5); BILIRUBIN,TOTAL 0.4 MG/DL (0.1-1.0); CALCIUM 9.4 MG/DL (8.5-10.1); CREATININE SERUM 0.76 MG/DL (0.60-1.30); POTASSIUM 4.2 MMOL/L (3.6-5.0); TOTAL PROTEIN 6.5 GM/DL (6.4-8.2)
[2021-05-11] MEDS: DULoxetine 30 MG (CYMBALTA) CAP PO SCH ×2 (08:49→08:50)
[2021-05-11] MEDS: SIMvastatin 20 MG (ZOCOR) TAB PO SCH (08:50)
[2021-05-11] MEDS: FAMOTIDINE 20 MG (PEPCID) TABLET PO SCH (08:50)
[2021-05-11] MEDS: polyethylene glycoL POWDER 17 GM (MIRALAX) PACK PO SCH ×2 (08:50→19:47)
[2021-05-11] MEDS: FINASTERIDE (PROSCAR) 5 MG TAB PO SCH (08:50)
[2021-05-11] MEDS: APIXABAN 2.5 MG (ELIQUIS) TABLET PO SCH ×2 (08:50→19:47)
[2021-05-11] MEDS: MEMANTINE 10 MG (NAMENDA) TABLET PO SCH ×2 (08:50→19:47)
[2021-05-11] MEDS: SENNA W/DOCUSATE (SENOKOT S) TABLET PO SCH ×2 (08:50→19:47)
[2021-05-11] MEDS: BUMETANIDE 1 MG (BUMEX) TAB PO SCH (08:50)
[2021-05-11] MEDS: DOCUSATE SODIUM 100 MG (COLACE) CAP PO SCH (08:50)
[2021-05-11] MEDS: FUROSEMIDE 20 MG (LASIX) TAB PO SCH (08:50)
[2021-05-11] MEDS: TAMSULOSIN 0.4 MG (FLOMAX) CAP PO SCH (08:50)
[2021-05-11] MEDS: ASPIRIN E.C. 81 MG (ECOTRIN) TAB PO SCH (08:50)
[2021-05-11] MEDS ORDERED: CEFD300C3 PO (09:44)
[2021-05-11] MEDS ORDERED: RT-ALBUINH IH (09:44)
--- NOTE | 2021-05-11 09:45 | D/C HH Face to Face Order ---
D/C Face to Face Orders Reconcile Patient Problems Problems Reviewed?: Yes Instructions for Patient Via [employer], Patient Instructions/FollowUp: PCP 2 weeks Physician to follow Patient: [facility] Discharge Diet for Home: No Restrictions Patient Problems: Pnemonia COPD Dementia Patient Data-Allergies,Ht & Wt Patient Allergies: Coded Allergies: codeine (Unverified Allergy, Severe, rash, 01/11/11) lovastatin (Verified Allergy, Unknown, 08/19/15) Height (Feet): 5 Height (Inches): 6.00 Weight (Pounds): 201 Weight (Ounces): 0.8 Home Health Need/Face to Face Date of Face to Face: May 11, 2021 Clinical Findings: Generalized weakness and fatigue, Muscle weakness, Shortness of breath I have seen Pt mjpo-ln-ypsn: Yes Discharged To: Home Diagnosis/Conditions: Pnemonia COPD Dementia Patient is Homebound due to: CognItive deficits, Con fall risk due to instabilty, Muscle weakness, Shortness of breath/distress Homebound Status Due to the above stated illness, injury or surgical procedure (medical condition or diagnosis) and associated clinical findings, the patient is homebound because of his/her inability to leave home except with aid of a supportive device and/or person AND leaving the home requires a considerable and taxing effort or is medically contraindicated. Pt req the following assistanc: [facility] Health Nursing Orders Home Health Services Order: Nursing Services, Large Sheetfed Press Operator-Evaluate & Treat, Physical Therapy-Evaluate & Treat Home Health Infusion Therapy Line Start Date: May 07, 2021 Certify Stmt I certify that this patient is under my care and that I, a nurse practitioner or a physician; a legal document assistant working with me, had a face to face encounter that -m eets the physician face to face encounter requirements with this patient as dated. TOMMY RUELAS DO May 11, 2021 09:45
--- NOTE | 2021-05-11 09:45 | Discharge Summary ---
Discharge Summary Hospital Course Hospital Course Date of Admission: May 07, 2021 at 20:24 Admission Diagnosis : Family Physician/Provider: Galina Cancino Aprn Date of Discharge: 05/11/21 Discharge Diagnosis: [ ] Hospital Course: [ ] Labs and Pending Lab Test: Laboratory Tests 05/11/21 06:40: White Blood Count 7.2, Red Blood Count 4.23L, Hemoglobin 11.9L, Hematocrit 38L, Mean Corpuscular Volume 89, Mean Corpuscular Hemoglobin 28, Mean Corpuscular Hemoglobin Concent 32, Red Cell Distribution Width 13.2, Platelet Count 261, Mean Platelet Volume 9.4, Immature Granulocyte % (Auto) 1, Neutrophils (%) (Auto) 67, Lymphocytes (%) (Auto) 15, Monocytes (%) (Auto) 10, Eosinophils (%) (Auto) 7, Basophils (%) (Auto) 1, Neutrophils # (Auto) 4.8, Lymphocytes # (Auto) 1.1, Monocytes # (Auto) 0.7, Eosinophils # (Auto) 0.5H, Basophils # (Auto) 0.0, Immature Granulocyte # (Auto) 0.1, Sodium Level 137, Potassium Level 4.2, Chloride Level 98, Carbon Dioxide Level 30, Anion Gap 9, Blood Urea Nitrogen 15, Creatinine 0.76, Estimat Glomerular Filtration Rate 100, BUN/Creatinine Ratio 20, Glucose Level 91, Calcium Level 9.4, Corrected Calcium 9.9, Total Bilirubin 0.4, Aspartate Amino Transf (AST/SGOT) 20, Alanine Aminotransferase (ALT/SGPT) 24, Alkaline Phosphatase 106, Total Protein 6.5, Albumin 3.4 Microbiology 05/07/21 Urine Culture - Final, Complete NO GROWTH 05/07/21 Blood Culture - Preliminary, Resulted No growth Home Meds Active Proair Hfa (Albuterol Sulfate) 1 Puff Puff 2 Puff IH Q4H 1 PUFF = 90 MCG Cefdinir 300 Mg Capsule 300 Mg PO BID Reported Fish Oil 1,000 mg Capsule ([place] 3 Polyunsat Fatty Acids) 1,000 Mg Cap 1,000 Mg PO BID Flomax (Tamsulosin HCl) 0.4 Mg Cap 0.4 Mg PO DAILY Furosemide 40 Mg Tablet 40 Mg PO Duloxetine HCl 60 Mg Capsule.dr 90 Mg PO DAILY TAKES WITH (30MG) CAPSULE Acid Instrumentation Chemist (FAMOTIDINE) (Famotidine) 20 Mg Tablet 20 Mg PO DAILY Donepezil HCl 10 Mg Tablet 10 Mg PO DAILY Stool Softener (Docusate Sodium) 100 Mg Capsule 100 Mg PO DAILY Potassium Chloride 10 Meq Capsule.er 10 Meq PO DAILY Cymbalta (Duloxetine HCl) 30 Mg Capsule.dr 90 Mg PO DAILY TAKES WITH (60MG) CAPSULE Aspirin EC (Aspirin) 81 Mg Tablet.dr 81 Mg PO DAILY Aripiprazole 10 Mg Tablet 10 Mg PO DAILY Eliquis (Apixaban) 2.5 Mg Tablet 2.5 Mg PO BID Memantine HCl 10 Mg Tablet 10 Mg PO BID Oxybutynin Chloride 5 Mg Tablet 5 Mg PO BID Finasteride 5 Mg Tablet 5 Mg PO DAILY Pravastatin Sodium 40 Mg Tablet 40 Mg PO DAILY Discharge Physical Examination Vital Signs Vital Signs Date Time Temp Pulse Resp B/P (MAP) Pulse Ox O2 Delivery O2 Flow Rate FiO2 05/11/21 08:12 36.7 93 22 168/95 93 Nasal Cannula 1.00 05/08/21 12:00 Allergies: Coded Allergies: codeine (Unverified Allergy, Severe, rash, 01/11/11) lovastatin (Verified Allergy, Unknown, 08/19/15) Discharge Summary Date of Admission May 07, 2021 at 20:24 Date of Discharge Discharge Date: May 11, 2021 Discharge Diagnosis Discharge home tomorrow Back to baseline activity TOMMY RUELAS DO May 11, 2021 09:45
--- NOTE | 2021-05-11 10:41 | Progress Note - Hospitalist ---
Subjective HPI/CC On Admission Date Seen by Provider: May 11, 2021 Time Seen by Provider: 10:00 Subjective/Events-last exam Pt not feeling well today Appealing discharge Started aggressive nebulizer treatments, Singulair, Advair and Claritin to see if we can improve his breathing before he goes home Oxygen at one liter continuous and two liters on exertion will be initiated Review of Systems General: Fatigue, Malaise Pulmonary: Dyspnea Focused Exam Time of Focused Exam: 19:30 Objective Exam Vital Signs Vital Signs Date Time Temp Pulse Resp B/P (MAP) Pulse Ox O2 Delivery O2 Flow Rate FiO2 05/12/21 03:27 36.3 76 24 120/63 91 Nasal Cannula 1.00 05/08/21 12:00 Capillary Refill : Less Than 3 Seconds General Appearance: No Apparent Distress, WD/WN, Chronically ill Respiratory: No Accessory Muscle Use, No Respiratory Distress, Decreased Breath Sounds Cardiovascular: Regular Rate, Rhythm Neurologic/Psychiatric: Alert, Oriented x3, No Motor/Sensory Deficits, Normal Mood/Affect Results/Procedures Lab Laboratory Tests 05/11/21 06:40 Patient resulted labs reviewed. Assessment/Plan Assessment and Plan Assess & Plan/Chief Complaint Assessment: Acute on chronic hypoxic respiratory failure Pneumonia Post Covid changes on chest x-ray Severe debility Dementia Urinary incontinence Plan: Added nebulizer treatments More aggressive treatment prior to discharge TOMMY RUELAS DO May 11, 2021 10:41
[2021-05-11] MEDS ORDERED: LORATADINE (CLARITIN) 10 MG TAB PO NR (10:53)
[2021-05-11] MEDS ORDERED: MONTELUKAST 10 MG (SINGULAIR) TAB PO NR (10:54)
[2021-05-11] MEDS: RT-ALBUTEROL/IPRATROPIUM 3 ML (DUONEB) VIAL INH SCH ×4 (11:18→21:51)
--- NOTE | 2021-05-11 11:22 | Physical Therapy Daily Note ---
PT Daily Note-Current Subjective Patient in recliner pre tx, agrees to PT, has no complaints of pain. A walker is brought into his room for him to use but he refuses to use it, wants to only use his quad cane. Appearance Patient in recliner post tx with nurse call,phone, tray, all needs met. Mental Status Patient Orientation: Person, Place, Situation Attachments: Oxygen Transfers SCALE: Activities may be completed with or without assistive devices. 4-Ufexjceuxr-whfuxlk completes the activity by him/herself with no assistance from a helper. 5-Set-up or Clean-up Assistance-helper sets up or cleans up; patient completes activity. [place] assists only prior to or following the activity. 4-Supervision or Touching Assistance-helper provides verbal cues and/or touching/steadying and/or contact guard assistance as patient completes activity. Assistance may be provided throughout the activity or intermittently. 3-Partial/Moderate Assistance-helper does LESS THAN HALF the effort. [place] li fts, holds or supports trunk or limbs, but provides less than half the effort. 2-Substantial/Maximal Assistance-helper does MORE THAN HALF the effort. [place] lifts or holds trunk or limbs and provides more than half the effort. 7-Tckgobvcj-bugdye does ALL the effort. Patient does none of the effort to complete the activity. Or, the assistance of 2 or more helpers is required for the patient to complete the activity. If activity was not attempted, code reason: 7-Patient Refused. 9-Not Applicable-not attempted and the patient did not perform the activity before the current illness, exacerbation or injury. 10-Not Attempted due to Environmental Limitations-(lack of equipment, weather restraints, etc.). 88-Not Attempted due to Medical Conditions or Safety Concerns. Sit to Stand (QC): 4 Patient stands with CGA, takes a couple of steps forward and states "I can't do it, I'm going to fall". Patient had difficulty with his knees yesterday and was not able to ambulate. Patient is afraid of his knee buckling. Exercises Seated Therapy Exercises: Ankle pumps, Long arc quads, Hip flexion, Hip abd/add Seated Reps: 20 Treatments standing, LE strengthening Assessment Current Status: Poor Progress declining in function with ambulation PT Ultrasound Tester Goals [facility] Goals PT Ultrasound Tester Goals Time Frame: May 30, 2021 Roll Left & Right (QC): 6 Sit to Lying (QC): 6 Lying-Sitting on Side/Bed(QC): 6 Sit to Stand (QC): 4 (SBA) Chair/Htg-zq-Ooqwj Xfer(QC): 4 (SBA) Walk 10 feet (QC): 4 (CGA) Walk 50ft with 2 Turns (QC): 4 (CGA) PT Plan Problem List Problem List: Activity Tolerance, Functional Strength, Safety, Balance, Gait, Transfer, Bed Mobility, ROM Treatment/Plan Treatment Plan: Continue Plan of Care Treatment Plan: Bed Mobility, Education, Functional Activity Randy, Functional Strength, Gait, Safety, Therapeutic Exercise, Transfers Treatment Duration: May 16, 2021 Frequency: 6 times per week Estimated Hrs Per Day: .25 hour per day Patient and/or Family Agrees t: Yes Safety Risks/Education Patient Education: Transfer Techniques, Correct Positioning, Safety Issues Teaching Recipient: Patient Teaching Methods: Demonstration, Discussion Response to Teaching: Reinforcement Needed Time/GCodes Time In: 1108 Time Out: 1118 Total Billed Treatment Time: 10 Total Billed Treatment 1 visit EX ELSI GRIFFIN PT May 11, 2021 11:22
--- NOTE | 2021-05-11 11:48 | Occupational Ther Daily Note ---
OT Current Status-Daily Note Subjective Pt alert, sitting in recliner. Pt agrees to therapy after encouragement. Pt c/o weakness. Mental Status/Objective Patient Orientation: Person, Place, Time, Situation Attachments: IV, Oxygen ADL-Treatment Therapy Code Descriptions/Definitions Functional [facility] Measure: 0=Not Assessed/NA 4=Minimal Assistance 1=Total Assistance 5=Supervision or Setup 2=Maximal Assistance 6=Modified [facility] 3=Moderate Assistance 7=Complete IndependenceSCALE: Activities may be completed with or without assistive devices. 9-Teggadvemi-obojpnv completes the activity by him/herself with no assistance from a helper. 5-Set-up or Clean-up Assistance-helper sets up or cleans up; patient completes activity. [place] assists only prior to or following the activity. 4-Supervision or Touching Assistance-helper provides verbal cues and/or touching/steadying and/or contact guard assistance as patient completes activi ty. Assistance may be provided throughout the activity or intermittently. 3-Partial/Moderate Assistance-helper does LESS THAN HALF the effort. [place] lifts, holds or supports trunk or limbs, but provides less than half the effort. 2-Substantial/Maximal Assistance-helper does MORE THAN HALF the effort. [place] lifts or holds trunk or limbs and provides more than half the effort. 4-Caeuwxpkk-sfauan does ALL the effort. Patient does none of the effort to complete the activity. Or, the assistance of 2 or more helpers is required for the patient to complete the activity. If activity was not attempted, code reason: 7-Patient Refused. 9-Not Applicable-not attempted and the patient did not perform the activity before the current illness, exacerbation or injury. 10-Not Attempted due to Environmental Limitations-(lack of equipment, weather restraints, etc.). 88-Not Attempted due to Medical Conditions or Safety Concerns. Other Treatment Skilled instruction for light resistance B UE theraband exercises for correct technique. Pt able to complete 1 set 10 reps of 4 exercise before requesting to stop therapy. Pt completes exercises quickly and does not complete full ROM with any exercise. After session, pt sitting in recliner with call light/phone in reach. All needs met in room. OT Fdc Goals Fdc Goals Time Frame: May 20, 2021 Eating (QC): 6 Oral Hygiene (QC): 5 Toileting Hygiene (QC): 3 Shower/Bathe Self (QC): 3 Upper Body Dressing (QC): 3 Lower Body Dressing (QC): 2 Additional Goals: 1-Demonstrate ADL Tasks, 2-Verbalize Understanding, 3- ImproveStrength/Randy 1=Demonstrate adherence to instructed precautions during ADL tasks. 2=Patient will verbalize/demonstrate understanding of assistive devices/modifications for ADL. 3=Patient will improve strength/tolerance for activity to enable patient to perform ADL's. OT Education/Plan Problem List/Assessment Assessment: Decreased Activ Tolerance, Impaired Self-Care Skills, Restricted Funct UE ROM Pt would benefit for short term skilled OT services in order to increase independence with ADLs to decrease caregiver burden. Discharge Recommendations Plan/Recommendations: Continue POC Treatment Plan/Plan of Care Patient would benefit from OT for education, treatment and training to promote independence in ADL's, mobility, safety and/or upper extremity function for ADL's. Plan of Care: ADL Retraining, Functional Mobility, UE Funct Exercise/Act Treatment Duration: May 20, 2021 Frequency: 3 times per week (3-5 times per week) Rehab Potential: Guarded Time/GCodes Start Time: 11:26 Stop Time: 11:36 Total Time Billed (hr/min): 10 Billed Treatment Time 1 visit-EX 1 (10 min) DAVID XIAO May 11, 2021 11:48
[2021-05-11] MEDS: RT--FLUTICASONE/SALMETEROL 113-14 (AIRDUO RespiCLICK) IH SCH (19:07)
[2021-05-11] MEDS: cefTRIAXone 1 GM PRE-MIX 50 ML IV SCH (19:46)
[2021-05-11] MEDS: traZODone 150 MG (DESYREL) TABLET PO SCH (19:47)
[2021-05-11] MEDS: AZITHROMYCIN INJECTION 500 MG in NS (IVPB) 250 ML IV SCH (20:21)
[2021-05-11] MEDS ORDERED: MONTELUKAST 10 MG (SINGULAIR) TAB PO SCH (21:00)
[2021-05-12] MEDS: RT-ALBUTEROL/IPRATROPIUM 3 ML (DUONEB) VIAL INH SCH ×3 (02:28→11:10)
[2021-05-12 06:55] LABS: BASOPHILS # (AUTO) 0.1 10^3/uL (0.0-0.1); BASOPHILS % (AUTO) 1 % (0-10); EOSINOPHILS # (AUTO) 0.5 10^3/uL (0.0-0.3); EOSINOPHILS % (AUTO) 7 % (0-10); HEMATOCRIT 37 % (40-54); HEMOGLOBIN 11.4 g/dL (13.3-17.7); LYMPHOCYTES % (AUTO) 14 % (12-44); MEAN CORPUSCULAR HEMOGLOBIN 28 pg (25-34); MEAN CORPUSCULAR HGB CONC 31 g/dL (32-36); MEAN CORPUSCULAR VOLUME 90 fL (80-99); MEAN PLATELET VOLUME 9.1 fL (9.0-12.2); MONOCYTES # (AUTO) 0.8 10^3/uL (0.0-1.0); MONOCYTES % (AUTO) 10 % (0-12); NEUTROPHILS # (AUTO) 5.2 10^3/uL (1.8-7.8); NEUTROPHILS % (AUTO) 68 % (42-75); PLATELET COUNT 248 10^3/uL (130-400); WHITE BLOOD COUNT 7.6 10^3/uL (4.3-11.0)
[2021-05-12 07:24] LABS: ALBUMIN 3.1 GM/DL (3.2-4.5); BILIRUBIN,TOTAL 0.4 MG/DL (0.1-1.0); CALCIUM 9.2 MG/DL (8.5-10.1); CREATININE SERUM 0.74 MG/DL (0.60-1.30); POTASSIUM 4.4 MMOL/L (3.6-5.0)
[2021-05-12] MEDS: RT--FLUTICASONE/SALMETEROL 113-14 (AIRDUO RespiCLICK) IH SCH (07:50)
[2021-05-12] MEDS ORDERED: LORATADINE (CLARITIN) 10 MG TAB PO SCH (09:00)
--- NOTE | 2021-05-12 09:32 | Diagnostic Imaging Report ---
INDICATION: EXAMINATION: Two-view chest 05/12/2021 COMPARISON: 04/17/2017 FINDINGS: There are scattered infiltrates throughout the right lung base and periphery of the right midlung. There are no effusions. There is no pneumothorax. There is cardiomegaly. Pulmonary vasculature is congested. IMPRESSION: 1. Diffuse scattered infiltrates predominantly within the right lung with other findings as above. Dictated by: Dictated on workstation # [id number]
[2021-05-12] MEDS: SENNA W/DOCUSATE (SENOKOT S) TABLET PO SCH (09:48)
[2021-05-12] MEDS: FAMOTIDINE 20 MG (PEPCID) TABLET PO SCH (09:48)
[2021-05-12] MEDS: DOCUSATE SODIUM 100 MG (COLACE) CAP PO SCH (09:48)
[2021-05-12] MEDS: FINASTERIDE (PROSCAR) 5 MG TAB PO SCH (09:48)
[2021-05-12] MEDS: SIMvastatin 20 MG (ZOCOR) TAB PO SCH (09:48)
[2021-05-12] MEDS: DULoxetine 30 MG (CYMBALTA) CAP PO SCH (09:49)
[2021-05-12] MEDS: TAMSULOSIN 0.4 MG (FLOMAX) CAP PO SCH (09:49)
[2021-05-12] MEDS: BUMETANIDE 1 MG (BUMEX) TAB PO SCH (09:49)
[2021-05-12] MEDS: polyethylene glycoL POWDER 17 GM (MIRALAX) PACK PO SCH (09:49)
[2021-05-12] MEDS: ASPIRIN E.C. 81 MG (ECOTRIN) TAB PO SCH (09:49)
[2021-05-12] MEDS: MEMANTINE 10 MG (NAMENDA) TABLET PO SCH (09:49)
[2021-05-12] MEDS: APIXABAN 2.5 MG (ELIQUIS) TABLET PO SCH (09:49)
[2021-05-12] MEDS: FUROSEMIDE 20 MG (LASIX) TAB PO SCH (09:49)
--- NOTE | 2021-05-12 10:16 | Physical Therapy Daily Note ---
PT Daily Note-Current Subjective Patient agrees to PT. Spouse present Pain Numeric Pain Scale: 0-No Pain Location: No Pain Reported Mental Status Patient Orientation: Normal For Age Attachments: Oxygen Transfers SCALE: Activities may be completed with or without assistive devices. 3-Ljjdmfqhkj-wztciid completes the activity by him/herself with no assistance from a helper. 5-Set-up or Clean-up Assistance-helper sets up or cleans up; patient completes activity. [place] assists only prior to or following the activity. 4-Supervision or Touching Assistance-helper provides verbal cues and/or touching/steadying and/or contact guard assistance as patient completes activity. Assistance may be provided throughout the activity or intermittently. 3-Partial/Moderate Assistance-helper does LESS THAN HALF the effort. [place] lifts, holds or supports trunk or limbs, but provides less than half the effort. 2-Substantial/Maximal Assistance-helper does MORE THAN HALF the effort. [place] lifts or holds trunk or limbs and provides more than half the effort. 7-Liirzxxow-steqoi does ALL the effort. Patient does none of the effort to complete the activity. Or, the assistance of 2 or more helpers is required for the patient to complete the activity. If activity was not attempted, code reason: 7-Patient Refused. 9-Not Applicable-not attempted and the patient did not perform the activity before the current illness, exacerbation or injury. 10-Not Attempted due to Environmental Limitations-(lack of equipment, weather restraints, etc.). 88-Not Attempted due to Medical Conditions or Safety Concerns. Sit to Stand (QC): 4 (SBA) Gait Training Does the Patient Walk?: No and Walking Goal IS indicated Distance: 60' x 3 Walk 10 feet (QC): 4 Walk 50 ft with 2 Turns(QC): 4 Gait Assistive Device: FWW SBA/safe and functional with no deviation with FWW Exercises Seated Therapy Exercises: Ankle pumps, Long arc quads, Hip flexion Seated Reps: 15 Assessment Patient remains up in recliner with needs met. Per spouse, patient is ambulating at PLOF with FWW. PT instructed patient to utilize FWW in home to increase safety and decrease risk of falls. Spouse verbally agrees and patient did not. PT Train Gateman Goals Train Gateman Goals PT Skilled Nursing Goals Time Frame: May 30, 2021 Roll Left & Right (QC): 6 Sit to Lying (QC): 6 Lying-Sitting on Side/Bed(QC): 6 Sit to Stand (QC): 4 (SBA) Chair/Zui-dn-Tofrd Xfer(QC): 4 (SBA) Walk 10 feet (QC): 4 (CGA) Walk 50ft with 2 Turns (QC): 4 (CGA) PT Plan Treatment/Plan Treatment Plan: Continue Plan of Care Treatment Plan: Bed Mobility, Education, Functional Activity Randy, Functional Strength, Gait, Safety, Therapeutic Exercise, Transfers Treatment Duration: May 16, 2021 Frequency: 6 times per week Estimated Hrs Per Day: .25 hour per day Patient and/or Family Agrees t: Yes Time/GCodes Time In: 928 Time Out: 944 Total Billed Treatment Time: 16 Total Billed Treatment 1 visit FA 16 min LITA HAIR PT May 12, 2021 10:16
--- NOTE | 2021-05-12 11:08 | Occupational Ther Daily Note ---
OT Current Status-Daily Note Subjective Pt alert, sitting in recliner. Pt's in room. Pt reluctantly agrees to therapy. Mental Status/Objective Patient Orientation: Person, Place, Time, Situation Attachments: IV, Oxygen ADL-Treatment Therapy Code Descriptions/Definitions Functional [place] Measure: 0=Not Assessed/NA 4=Minimal Assistance 1=Total Assistance 5=Supervision or Setup 2=Maximal Assistance 6=Modified [place] 3=Moderate Assistance 7=Complete IndependenceSCALE: Activities may be completed with or without assistive devices. 8-Pixesusigb-awbicmw completes the activity by him/herself with no assistance from a helper. 5-Set-up or Clean-up Assistance-helper sets up or cleans up; patient completes activity. [place] assists only prior to or following the activity. 4-Supervision or Touching Assistance-helper provides verbal cues and/or touching/steadying and/or contact guard assistance as patient completes activity. Assistance may be provided throughout the activity or intermittently. 3-Partial/Moderate Assistance-helper does LESS THAN HALF the effort. [place] lifts, holds or supports trunk or limbs, but provides less than half the effort. 2-Substantial/Maximal Assistance-helper does MORE THAN HALF the effort. [place] lifts or holds trunk or limbs and provides more than half the effort. 9-Fbasdybjs-afolbm does ALL the effort. Patient does none of the effort to complete the activity. Or, the assistance of 2 or more helpers is required for the patient to complete the activity. If activity was not attempted, code reason: 7-Patient Refused. 9-Not Applicable-not attempted and the patient did not perform the activity before the current illness, exacerbation or injury. 10-Not Attempted due to Environmental Limitations-(lack of equipment, weather restraints, etc.). 88-Not Attempted due to Medical Conditions or Safety Concerns. Other Treatment Pt declines any ADLs stating that he wants to do them later with [facility] tech. Pt did complete 5 B UE exercises with medium resistance theraband, 1 set 10 reps. Skilled instruction for technique and focus on task required. After session, pt sitting in recliner with call light/phone in reach. All needs met in room. OT Field Talent Qualification Specialist Goals [facility] Goals Time Frame: May 20, 2021 Eating (QC): 6 Oral Hygiene (QC): 5 Toileting Hygiene (QC): 3 Shower/Bathe Self (QC): 3 Upper Body Dressing (QC): 3 Lower Body Dressing (QC): 2 Additional Goals: 1-Demonstrate ADL Tasks, 2-Verbalize Understanding, 3- ImproveStrength/Randy 1=Demonstrate adherence to instructed precautions during ADL tasks. 2=Patient will verbalize/demonstrate understanding of assistive kirt trice/modifications for ADL. 3=Patient will improve strength/tolerance for activity to enable patient to perform ADL's. OT Education/Plan Problem List/Assessment Assessment: Decreased Activ Tolerance, Decreased UE Strength, Impaired Self- Care Skills Pt would benefit for short term skilled OT services in order to increase independence with ADLs to decrease caregiver burden. Discharge Recommendations Plan/Recommendations: Continue POC Treatment Plan/Plan of Care Patient would benefit from OT for education, treatment and training to promote independence in ADL's, mobility, safety and/or upper extremity function for ADL's. Plan of Care: ADL Retraining, Functional Mobility, UE Funct Exercise/Act Treatment Duration: May 20, 2021 Frequency: 3 times per week (3-5 times per week) Rehab Potential: Guarded Time/GCodes Start Time: 10:00 Stop Time: 10:11 Total Time Billed (hr/min): 11 Billed Treatment Time 1 visit-EX 1 (11 min) DAVID XIAO May 12, 2021 11:08
[2021-05-12] MEDS ORDERED: IPRA3AMP31 INH ×2 (12:36→13:48)
[2021-05-12] MEDS ORDERED: MONT-40 PO ×2 (12:36→13:48)
[2021-05-12] MEDS ORDERED: LORA10TA7 PO ×2 (12:36→13:48)
--- NOTE | 2021-05-12 12:37 | Discharge Summary ---
Discharge Summary Hospital Course Was the Problem List Reviewed?: Yes Problems/Dx: (1) Acute on chronic respiratory failure Status: Acute Qualifiers: Qualified Codes: J96.21 - Acute and chronic respiratory failure with hypoxia; J96.22 - Acute and chronic respiratory failure with hypercapnia (2) CHF exacerbation Status: Acute (3) Bilateral pneumonia Status: Acute (4) COPD exacerbation Status: Acute (5) HTN (hypertension) Status: Chronic (6) Dependent edema Status: Acute (7) Dementia Status: Chronic Qualifiers: Hospital Course Date of Admission: May 07, 2021 at 20:24 Admission Diagnosis : Family Physician/Provider: Galina Cancino Food Service Clerk Date of Discharge: 05/12/21 Discharge Diagnosis: Bilateral pneumonia, congestive heart failure, dementia, hypoxia requiring supplemental oxygen at discharge Hospital Course: Hospital Course: Pt had an uneventful hospital course after he was admitted for acute on chronic respiratory failure. Bronchitis and pneumonia were treated with antibiotics. Nebulizer treatments were ordered with good results and overall pt did very well with treatment. He appealed discharge the day before but he was ready for Dc today and home oxygen was set up. Labs and Pending Lab Test: Laboratory Tests 05/12/21 06:45: White Blood Count 7.6, Red Blood Count 4.07L, Hemoglobin 11.4L, Hematocrit 37L, Mean Corpuscular Volume 90, Mean Corpuscular Hemoglobin 28, Mean Corpuscular Hemoglobin Concent 31L, Red Cell Distribution Width 13.2, Platelet Count 248, Mean Platelet Volume 9.1, Immature Granulocyte % (Auto) 1, Neutrophils (%) (Auto) 68, Lymphocytes (%) (Auto) 14, Monocytes (%) (Auto) 10, Eosinophils (%) (Auto) 7, Basophils (%) (Auto) 1, Neutrophils # (Auto) 5.2, Lymphocytes # (Auto) 1.0, Monocytes # (Auto) 0.8, Eosinophils # (Auto) 0.5H, Basophils # (Auto) 0.1, Immature Granulocyte # (Auto) 0.1, Sodium Level 136, Potassium Level 4.4, Chlo ride Level 99, Carbon Dioxide Level 29, Anion Gap 8, Blood Urea Nitrogen 19H, Creatinine 0.74, Estimat Glomerular Filtration Rate 103, BUN/Creatinine Ratio 26, Glucose Level 93, Calcium Level 9.2, Corrected Calcium 9.9, Total Bilirubin 0.4, Aspartate Amino Transf (AST/SGOT) 17, Alanine Aminotransferase (ALT/SGPT) 20, Alkaline Phosphatase 96, B-Type Natriuretic Peptide 10.2, Total Protein 6.0L , Albumin 3.1L, Procalcitonin 0.04 Microbiology 05/07/21 Urine Culture - Final, Complete NO GROWTH 05/07/21 Blood Culture - Preliminary, Resulted No growth Home Meds Active Proair Hfa (Albuterol Sulfate) 1 Puff Puff 2 Puff IH Q4H 1 PUFF = 90 MCG Cefdinir 300 Mg Capsule 300 Mg PO BID Reported Fish Oil 1,000 mg Capsule (Chase 3 Polyunsat Fatty Acids) 1,000 Mg Cap 1,000 Mg PO BID Flomax (Tamsulosin HCl) 0.4 Mg Cap 0.4 Mg PO DAILY Furosemide 40 Mg Tablet 40 Mg PO Duloxetine HCl 60 Mg Capsule.dr 90 Mg PO DAILY TAKES WITH (30MG) CAPSULE Acid Piece Goods Packer (FAMOTIDINE) (Famotidine) 20 Mg Tablet 20 Mg PO DAILY Donepezil HCl 10 Mg Tablet 10 Mg PO DAILY Stool Softener (Docusate Sodium) 100 Mg Capsule 100 Mg PO DAILY Potassium Chloride 10 Meq Capsule.er 10 Meq PO DAILY Cymbalta (Duloxetine HCl) 30 Mg Capsule.dr 90 Mg PO DAILY TAKES WITH (60MG) CAPSULE Aspirin EC (Aspirin) 81 Mg Tablet.dr 81 Mg PO DAILY Aripiprazole 10 Mg Tablet 10 Mg PO DAILY Eliquis (Apixaban) 2.5 Mg Tablet 2.5 Mg PO BID Memantine HCl 10 Mg Tablet 10 Mg PO BID Oxybutynin Chloride 5 Mg Tablet 5 Mg PO BID Finasteride 5 Mg Tablet 5 Mg PO DAILY Pravastatin Sodium 40 Mg Tablet 40 Mg PO DAILY Assessment/Pt Instructions PCP in 1 week Discharge Planning: <30 minutes discharge planning Discharge Instructions Discharge Diet: No Restrictions Discharge Physical Examination Vital Signs Vital Signs Date Time Temp Pulse Resp B/P (MAP) Pulse Ox O2 Delivery O2 Flow Rate FiO2 05/12/21 12:00 36.2 97 22 138/80 96 Nasal Cannula 1.00 05/08/21 12:00 General Appearance: No Apparent Distress, WD/WN, Chronically ill Respiratory: Lungs Clear, Normal Breath Sounds Cardiovascular: Regular Rate, Rhythm Neurologic/Psychiatric: Alert, Oriented x3, No Motor/Sensory Deficits, Normal Mood/Affect Allergies: Coded Allergies: codeine (Unverified Allergy, Severe, rash, 01/11/11) lovastatin (Verified Allergy, Unknown, 08/19/15) Discharge Summary Date of Admission May 07, 2021 at 20:24 Date of Discharge Discharge Date: May 12, 2021 Discharge Diagnosis Assessment: Acute on chronic hypoxic respiratory failure Pneumonia Post Covid changes on chest x-ray Severe debility Dementia Urinary incontinence Plan: Added nebulizer treatments More aggressive treatment prior to discharge TOMMY RUELAS DO May 12, 2021 12:37
[2021-05-12] MEDS ORDERED: RT-ALBUINH IH (13:48)
[2021-05-12] MEDS ORDERED: CEFD300C3 PO (13:48)
== END 2021-05-12 14:20 | disposition home health service (06) | DRG 193 ==
LOC: EDUNIT# 18:24 → ER 18:26 → ICU 20:24 → 4TH 05-08 18:33
PROVIDERS: ADMIT Family Medicine; ATTEND Internal Medicine
PROC: 5A09357 Assistance with Respiratory Ventilation, Less than 24 Consecutive Hours, Continuous Positive Airway Pressure (ICD-10-PCS; principal; 2021-05-07)
DX: J18.9 Pneumonia, unspecified organism (principal); J96.21 Acute and chronic respiratory failure with hypoxia; J96.22 Acute and chronic respiratory failure with hypercapnia; I31.3 Pericardial effusion (noninflammatory); J44.0 Chronic obstructive pulmonary disease with (acute) lower respiratory infection; J44.1 Chronic obstructive pulmonary disease with (acute) exacerbation; N40.0 Benign prostatic hyperplasia without lower urinary tract symptoms; Z86.718 Personal history of other venous thrombosis and embolism; R60.9 Edema, unspecified; I11.0 Hypertensive heart disease with heart failure; I50.9 Heart failure, unspecified; Z87.891 Personal history of nicotine dependence; Z96.642 Presence of left artificial hip joint; G30.9 Alzheimer's disease, unspecified; F02.80 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 classified elsewhere, unspecified severity, without behavioral disturbance, psychotic disturbance, mood disturbance, and anxiety; Z86.73 Personal history of transient ischemic attack (TIA), and cerebral infarction without residual deficits; F41.9 Anxiety disorder, unspecified; Z88.5 Allergy status to narcotic agent; Z79.82 Long term (current) use of aspirin; Z79.899 Other long term (current) drug therapy; Z86.711 Personal history of pulmonary embolism; I25.10 Atherosclerotic heart disease of native coronary artery without angina pectoris; E78.00 Pure hypercholesterolemia, unspecified; R53.81 Other malaise; R32 Unspecified urinary incontinence; Z20.822 Contact with and (suspected) exposure to COVID-19
CPT/HCPCS: 36415; 51702; 71045; 71046; 71275; 80048; 80053; 81000; 82550; 82553; 82805; 83605; 83735; 83874; 83880; 84145; 84484; 85007; 85025; 85027; 85379; 85610; 85652; 85730; 86141; 87040; 87088; 87635; 87636; 93005; 93041; 93306; 94640; 94660; 94760; 94761; 99291

== ENCOUNTER 2021-05-18 16:07 | Emergency (ER) | payer MEDICARE, MEDICAID ==
[~2021-05-18] VITALS: Ht 162 cm; Wt 94.0 kg
[~2021-05-18 16:07] MED LIST changes: +ARIP10TA10 PO; +BUME1TAB8 PO; +DONE10TA41 PO; +DULO60CA59 PO; +FURO40TA4 PO; +IPRA3AMP31 INH; +LORA10TA7 PO; +MEMA10TA2 PO; +MONT-40 PO; +OMG1KC PO; +TRAZ150T72 PO
[2021-05-18 16:29] LABS: BASOPHILS % (AUTO) 0 % (0-10); EOSINOPHILS # (AUTO) 0.3 10^3/uL (0.0-0.3); EOSINOPHILS % (AUTO) 4 % (0-10); HEMATOCRIT 35 % (40-54); HEMOGLOBIN 10.9 g/dL (13.3-17.7); LYMPHOCYTES # (AUTO) 0.9 10^3/uL (1.0-4.0); LYMPHOCYTES % (AUTO) 11 % (12-44); MEAN CORPUSCULAR HEMOGLOBIN 28 pg (25-34); MEAN CORPUSCULAR HGB CONC 31 g/dL (32-36); MEAN CORPUSCULAR VOLUME 92 fL (80-99); MEAN PLATELET VOLUME 9.5 fL (9.0-12.2); MONOCYTES # (AUTO) 1.2 10^3/uL (0.0-1.0); MONOCYTES % (AUTO) 15 % (0-12); NEUTROPHILS # (AUTO) 5.3 10^3/uL (1.8-7.8); NEUTROPHILS % (AUTO) 68 % (42-75); PLATELET COUNT 265 10^3/uL (130-400); WHITE BLOOD COUNT 7.8 10^3/uL (4.3-11.0)
[2021-05-18 16:45] LABS: ALBUMIN 3.2 GM/DL (3.2-4.5); POTASSIUM 3.9 MMOL/L (3.6-5.0)
[2021-05-18 16:46] LABS: CALCIUM 9.1 MG/DL (8.5-10.1); INR 1.1 (0.8-1.4)
[2021-05-18 16:47] LABS: TOTAL PROTEIN 6.4 GM/DL (6.4-8.2)
[2021-05-18 16:49] LABS: BILIRUBIN,TOTAL 0.3 MG/DL (0.1-1.0)
[2021-05-18 16:51] LABS: CREATININE SERUM 0.72 MG/DL (0.60-1.30)
--- NOTE | 2021-05-18 17:13 | Diagnostic Imaging Report ---
EXAMINATION: Chest 1 view. HISTORY: Cough. COMPARISON: 05/09/2021. FINDINGS: There has been a slight improvement in the airspace opacities in the right lung. No pleural effusion or pneumothorax. Heart size is normal. IMPRESSION: Slight improvement in airspace opacities in the right lung. Dictated by: Dictated on workstation # [id number]
[2021-05-18 17:36] LABS: BILIRUBIN,URINE NEGATIVE (NEGATIVE); CLARITY,URINE CLEAR; COLOR,URINE YELLOW; GLUCOSE, URINE (UA) NEGATIVE (NEGATIVE); KETONES,URINE NEGATIVE (NEGATIVE); LEUKOCYTE ESTERASE ,URINE NEGATIVE (NEGATIVE); NITRITE,URINE NEGATIVE (NEGATIVE); PROTEIN,URINE NEGATIVE (NEGATIVE)
[2021-05-18 17:47] LABS: BACTERIA,URINE NEGATIVE /HPF; SQUAMOUS EPITHELIAL CELL,UR RARE /HPF
--- NOTE | 2021-05-18 18:20 | ED General ---
General Chief Complaint: Fever-Adult/Adol Stated Complaint: FEVER Nursing Triage Note: PT ARRIVED PER EMS, PT CO OF FEVER AT HOME 99.6, SOA AND SWOLLEN LOWER EXT. PT WAS RELEASED FROM HOSP ON 05/12/21 AFTER HAVING PNEMONIA. Source of Information: Patient Exam Limitations: No Limitations History of Present Illness Date Seen by Provider: May 18, 2021 Initial Comments This is a 75 yo male who presented to the ER via [facility] with c/o increasing shortness of breath. Allergies and Home Medications Allergies Coded Allergies: codeine (Unverified Allergy, Severe, rash, 01/11/11) lovastatin (Verified Allergy, Unknown, 08/19/15) Patient Home Medication List Albuterol Sulfate (Proair Hfa) 1 Puff Puff, 2 PUFF IH Q4H Prescribed by: TOMMY RUELAS on 05/12/21 1348 Apixaban (Eliquis) 2.5 Mg Tablet, 2.5 MG PO BID, (Reported) Entered as Reported by: AZ MCCULLOUGH on 08/16/17 1023 Aripiprazole (Aripiprazole) 10 Mg Tablet, 10 MG PO DAILY, (Reported) Entered as Reported by: JUNE MEZA on 04/13/21 0742 Aspirin (Aspirin EC) 81 Mg Tablet., 81 MG PO DAILY, (Reported) Entered as Reported by: JUNE MEZA on 04/13/21 0742 Cefdinir (Cefdinir) 300 Mg Capsule, 300 MG PO BID Prescribed by: TOMMY RUELAS on 05/12/21 1348 Docusate Sodium (Stool Softener) 100 Mg Capsule, 100 MG PO DAILY, (Reported) Entered as Reported by: JUEN MEZA on 04/13/21 0742 Donepezil HCl (Donepezil HCl) 10 Mg Tablet, 10 MG PO DAILY, (Reported) Entered as Reported by: SHAY HONG on 05/08/21 1130 Duloxetine HCl (Cymbalta) 30 Mg Capsule.dr, 90 MG PO DAILY, (Reported) Entered as Reported by: JUNE MEZA on 04/13/21 0742 Duloxetine HCl (Duloxetine HCl) 60 Mg Capsule., 90 MG PO DAILY, (Reported) Entered as Reported by: SONALI NEAL on 05/09/21 1230 Famotidine (Acid Adolescent Medicine Specialist (FAMOTIDINE)) 20 Mg Tablet, 20 MG PO DAILY, (Reported) Entered as Reported by: SHAY HONG on 05/08/21 1130 Finasteride (Finasteride) 5 Mg Tablet, 5 MG PO DAILY, (Reported) Entered as Reported by: CARMINE TAYLOR on 04/21/15 0955 Furosemide (Furosemide) 40 Mg Tablet, 40 MG PO, (Reported) Entered as Reported by: SONALI NEAL on 05/09/21 1233 Ipratropium/Albuterol Sulfate (Iprat-Albut 0.5-3(2.5) mg/3 ml) 3 Ml Ampul.neb, 3 ML INH RTQ4HR Prescribed by: TOMMY RUELAS on 05/12/21 1348 Loratadine (Loratadine) 10 Mg Tablet, 10 MG PO DAILY Prescribed by: TOMMY RUELAS on 05/12/21 1348 Memantine HCl (Memantine HCl) 10 Mg Tablet, 10 MG PO BID, (Reported) Entered as Reported by: CARMINE TAYLOR on 04/21/15 0955 Montelukast Sodium (Montelukast Sodium) 10 Mg Tablet, 10 MG PO HS Prescribed by: TOMMY RUELAS on 05/12/21 1348 [place] 3 Polyunsat Fatty Acids (Fish Oil 1,000 mg Capsule) 1,000 Mg Cap, 1,000 MG PO BID, (Reported) Entered as Reported by: SONALI NEAL on 05/09/21 1235 Oxybutynin Chloride (Oxybutynin Chloride) 5 Mg Tablet, 5 MG PO BID, (Reported) Entered as Reported by: CARMINE TAYLOR on 04/21/15 0955 Potassium Chloride (Potassium Chloride) 10 Meq Capsule.er, 10 MEQ PO DAILY, (Reported) Entered as Reported by: JUNE MEZA on 04/13/21 0742 Pravastatin Sodium (Pravastatin Sodium) 40 Mg Tablet, 40 MG PO DAILY, (Reported) Entered as Reported by: ANIBAL NAGEL on 04/20/15 1936 Tamsulosin HCl (Flomax) 0.4 Mg Cap, 0.4 MG PO DAILY, (Reported) Entered as Reported by: SONALI NEAL on 05/09/21 1233 Past Eokjjva-Yrbinc-Fnhfvv Hx Patient Social History Tobacco Use?: No Substance use?: No Alcohol Use?: No Pt feels they are or have been: No Immunizations Up To Date Tetanus Booster (TDap): Less than 5yrs PED Vaccines UTD: Yes First/Initial COVID19 Vaccinat: 2020 Second COVID19 Vaccination Maurizio: 2020 Third COVID19 Vaccination Date: 2020 Seasonal Allergies Seasonal Allergies: No Past Medical History Surgery/Hospitalization HX: COPD Surgeries: Yes (HERNIA REPAIR, CYSTOCELE, neck) Abdominal, Orthopedic Respiratory: Yes Pulmonary Embolism, COPD Currently Using CPAP: Yes Cardiac: Yes (DVT LEFT LEG; CHRONIC LEG EDEMA--LEFT > RIGHT) Chronic Edema/Swelling, Coronary Artery Disease, Deep Vein Thrombosis, High C holesterol, Hypertension Neurological: Yes (mild alzheimer's ) Dementia, TIA Reproductive Disorders: No Genitourinary: Yes (RENAL CYST; INCONTINENCE, OVERACTIVE BLADDER) Benign Prostatic Hyperpl, Prostate Problems Gastrointestinal: Yes (hx of constipation issues) Abdominal Hernia, Chronic Constipation Musculoskeletal: Yes (GAIT INSTABILITY; LEFT HIP REPLACEMENT) Arthritis Endocrine: Yes (OBESITY) HEENT: Yes Hearing Impairment: Hard of Hearing Cancer: No Psychosocial: Yes Sleep Difficulties, Anxiety, Depression Integumentary: Yes (SHINGLES) Blood Disorders: Yes (hx of dvt) Adverse Reaction/Blood Tranf: No Family Medical History FH: heart disease 19 FATHER SOCIAL HISTORY: -SMOKING--QUIT 30 YEARS AGO -ETOH--DENIES USE -DRUGS--DENIES USE PAST SURGICAL HISTORY: -HERNIA REPAIR -HYDROCOELE REPAIR -CERVICAL SPINE SURGERY WITH HARDWARE -07/2020--LEFT HIP REPLACEMENT BY DR. MARIE -04/13/21--CARDIAC CATH BY DR. EL: CONCLUSION: 1. Mild coronary artery disease nonobstructive disease 2. Normal left ventricular end-diastolic pressure 3. Hypertensive changes in the abdominal and thoracic aorta with S shaped abdominal aorta, no dissection or aneurysm DISCUSSION AND RECOMMENDATION: Continue to maximize medical therapy. No intervention is needed Physical Exam Vital Signs Vital Signs - First Documented 05/18/21 16:08 Temp 35.6 Pulse 89 Resp 24 B/P (MAP) 143/95 (111) Pulse Ox 100 O2 Delivery Nasal Cannula O2 Flow Rate 4.00 Capillary Refill : Less Than 3 Seconds Height, Weight, BMI Height: 5'6.00" Weight: 201lbs. 0.8oz. [id number]; 35.00 BMI Method:Stated Focused Exam Lactate Level 05/18/21 16:13: Lactic Acid Level 1.02 Lactic Acid Level Laboratory Tests Test 05/18/21 16:13 Lactic Acid Level 1.02 MMOL/L (0.50-2.00) Progress/Results/Core Measures Suspected Sepsis SIRS Temperature: Pulse: 89 Respiratory Rate: 24 Laboratory Tests 05/18/21 16:13: White Blood Count 7.8 Blood Pressure 143 /95 Mean: 111 05/18/21 16:13: Lactic Acid Level 1.02 Laboratory Tests 05/18/21 16:13: Creatinine 0.72, INR Comment 1.1, Platelet Count 265, Total Bilirubin 0.3 Results/Orders Lab Results Laboratory Tests Test 05/18/21 16:13 05/18/21 17:31 Range/Units White Blood Count 7.8 4.3-11.0 10^3/uL Red Blood Count 3.86 L 4.30-5.52 10^6/uL Hemoglobin 10.9 L 13.3-17.7 g/dL Hematocrit 35 L 40-54 % Mean Corpuscular Volume 92 80-99 fL Mean Corpuscular Hemoglobin 28 25-34 pg Mean Corpuscular Hemoglobin Concent 31 L 32-36 g/dL Red Cell Distribution Width 13.3 10.0-14.5 % Platelet Count 265 130-400 10^3/uL Mean Platelet Volume 9.5 9.0-12.2 fL Immature Granulocyte % (Auto) 1 % Neutrophils (%) (Auto) 68 42-75 % Lymphocytes (%) (Auto) 11 L 12-44 % Monocytes (%) (Auto) 15 H 0-12 % Eosinophils (%) (Auto) 4 0-10 % Basophils (%) (Auto) 0 0-10 % Neutrophils # (Auto) 5.3 1.8-7.8 10^3/uL Lymphocytes # (Auto) 0.9 L 1.0-4.0 10^3/uL Monocytes # (Auto) 1.2 H 0.0-1.0 10^3/uL Eosinophils # (Auto) 0.3 0.0-0.3 10^3/uL Basophils # (Auto) 0.0 0.0-0.1 10^3/uL Immature Granulocyte # (Auto) 0.1 0.0-0.1 10^3/uL Prothrombin Time 15.0 H 12.2-14.7 SEC INR Comment 1.1 0.8-1.4 Activated Partial Thromboplast Time 26 24-35 SEC Sodium Level 135 135-145 MMOL/L Potassium Level 3.9 3.6-5.0 MMOL/L Chloride Level 96 L 98-107 MMOL/L Carbon Dioxide Level 35 H 21-32 MMOL/L Anion Gap 4 L 5-14 MMOL/L Blood Urea Nitrogen 15 7-18 MG/DL Creatinine 0.72 0.60-1.30 MG/DL Estimat Glomerular Filtration Rate 106 BUN/Creatinine Ratio 21 Glucose Level 73 70-105 MG/DL Lactic Acid Level 1.02 0.50-2.00 MMOL/L Calcium Level 9.1 8.5-10.1 MG/DL Corrected Calcium 9.7 8.5-10.1 MG/DL Total Bilirubin 0.3 0.1-1.0 MG/DL Aspartate Amino Transf (AST/SGOT) 21 5-34 U/L Alanine Aminotransferase (ALT/SGPT) 17 0-55 U/L Alkaline Phosphatase 104 40-136 U/L B-Type Natriuretic Peptide 16.4 <100.0 PG/ML Total Protein 6.4 6.4-8.2 GM/DL Albumin 3.2 3.2-4.5 GM/DL Influenza Type A (RT-PCR) Not Detected Not Detecte Influenza Type B (RT-PCR) Not Detected Not Detecte SARS-CoV-2 RNA (RT-PCR) Not Detected Not Detecte Urine Color YELLOW Urine Clarity CLEAR Urine pH 6.0 5-9 Urine Specific [place] 1.020 1.016-1.022 Urine Protein NEGATIVE NEGATIVE Urine Glucose (UA) NEGATIVE NEGATIVE Urine Ketones NEGATIVE NEGATIVE Urine Nitrite NEGATIVE NEGATIVE Urine Bilirubin NEGATIVE NEGATIVE Urine Urobilinogen 0.2 < = 1.0 MG/DL Urine Leukocyte Esterase NEGATIVE NEGATIVE Urine RBC (Auto) NEGATIVE NEGATIVE Urine RBC NONE /HPF Urine WBC NONE /HPF Urine Squamous Epithelial Cells RARE /HPF Urine Crystals NONE /LPF Urine Bacteria NEGATIVE /HPF Urine Casts NONE /LPF Urine Mucus NEGATIVE /LPF Urine Culture Indicated NO My Orders Orders - GIANNA GRIMES CERTIFIED GENETIC COUNSELOR Cbc With Automated Diff (05/18/21 16:14) Comprehensive Metabolic Panel (05/18/21 16:14) Blood Culture (05/18/21 16:14) Sputum Culture (05/18/21 16:14) Urinalysis (05/18/21 16:14) Urine Culture (05/18/21 16:14) Protime With Inr (05/18/21 16:14) Partial Thromboplastin Time (05/18/21 16:14) Chest 1 View, Ap/Pa Only (05/18/21 16:14) Ed Iv/Invasive Line Start (05/18/21 16:14) Vital Signs Adult Sepsis Patie Q15M (05/18/21 16:14) O2 (05/18/21 16:14) Remove Rings In Anticipation O (05/18/21 16:14) Lactic Acid Analyzer (05/18/21 16:14) Influenza A And B By Pcr (05/18/21 16:14) Covid 19 Inhouse Test (05/18/21 16:14) Bnp [place] (05/18/21 16:14) Vital Signs/I&O 05/18/21 05/18/21 05/18/21 05/18/21 16:08 16:08 16:08 19:19 Temp 35.6 35.7 Pulse 89 96 Resp 24 20 B/P (MAP) 143/95 (111) 141/87 Pulse Ox 100 100 94 O2 Delivery Nasal Cannula Nasal Cannula Nasal Cannula Nasal Cannula O2 Flow Rate 4.00 4.00 4.00 4.00 Capillary Refill : Less Than 3 Seconds Blood Pressure Mean: 111 Departure Impression Primary Impression: CHF (congestive heart failure) Additional Impression: COPD (chronic obstructive pulmonary disease) Disposition: 01 HOME, SELF-CARE Condition: Improved Departure-Patient Inst. Decision time for Depature: 18:19 Referrals: [facility] (PCP) Primary Care Physician CARLOS EMERSON APRN (Family) Primary Care Physician Patient Instructions: COPD Exacerbation, Adult ED, How to Use a Nebulizer ED, Heart Healthy Diet Add. Discharge Instructions: Plan: 1. Use home nebulizer at home as previously directed. 2. Limit your sodium intake, especially the amount of times you eat out with fast food. 3. Follow up with Dr. El this week or next. 4. Follow up with your primary care doctor in 3-5 days. 5. Return for any new, concerning, or worsening symptoms. All discharge instructions reviewed with patient and/or family. Voiced understanding. GIANNA GRIMES CERTIFIED GENETIC COUNSELOR May 18, 2021 18:20
[2021-05-18 19:19] VITALS: BP 141/87
== END 2021-05-18 20:15 | disposition home or self-care (01) ==
LOC: EDUNIT# 16:07 → ER 16:09
DX: I11.0 Hypertensive heart disease with heart failure (principal); I50.9 Heart failure, unspecified; J44.9 Chronic obstructive pulmonary disease, unspecified; I25.10 Atherosclerotic heart disease of native coronary artery without angina pectoris; E78.00 Pure hypercholesterolemia, unspecified; G30.9 Alzheimer's disease, unspecified; F02.80 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 classified elsewhere, unspecified severity, without behavioral disturbance, psychotic disturbance, mood disturbance, and anxiety; F41.9 Anxiety disorder, unspecified; F32.9 Major depressive disorder, single episode, unspecified; Z87.01 Personal history of pneumonia (recurrent); Z86.711 Personal history of pulmonary embolism; Z86.718 Personal history of other venous thrombosis and embolism; Z20.822 Contact with and (suspected) exposure to COVID-19; Z86.73 Personal history of transient ischemic attack (TIA), and cerebral infarction without residual deficits; Z88.8 Allergy status to other drugs, medicaments and biological substances; Z79.01 Long term (current) use of anticoagulants; Z79.82 Long term (current) use of aspirin; Z79.899 Other long term (current) drug therapy
CPT/HCPCS: 36415; 71045; 80053; 81000; 83605; 83880; 85025; 85610; 85730; 87040; 87088; 87636